=== PATIENT | male | born 1970 | race Caucasian/White ===

== ENCOUNTER 2016-11-25 05:41 | Observation (INO) | payer OTHER ==
[2016-11-25] MEDS ORDERED: ASPIRIN 81 MG CHEW PO STA (05:59)
[2016-11-25] MEDS ORDERED: NITROGLYCERIN SL TABS 0.4 MG TAB SUBLINGUAL PRN ×3 (06:01→19:13)
--- NOTE | 2016-11-25 06:04 | ED ---
Chest Pain HPI - General Chief Complaint: Chest Pain Stated Complaint: Chest Pain Time Seen by Provider: 11/25/16 05:54 Source: patient Mode of arrival: wheelchair Limitations: no limitations - History of Present Illness Initial Comments: This is a 46-year-old male with a history of CAD with stent placement after suffering cardiac arrest from [place]. He came into the emergency department for left sided chest pain that radiates to his left arm. He states it feels like a muscle ache. He states that nothing seems to make it better or worse and just seems to come on randomly. He has not tried anything for the pain. He's been having these chest pains over the last couple of days however today it got much worse and he was concerned. He denies any associated shortness of breath, lightheadedness, nausea, vomiting. He states he's never had a stress test. He follows with Dr. Cruz. - Related Data Home Medications Medication Instructions Recorded Confirmed Budesonide-Formot 160-4.5 Mcg 2 puff INHALATION RT-BID 02/20/16 11/25/16 [Symbicort 160-4.5 Mcg Inhaler] Ipratropium/Albuterol Sulfate 1 puff INHALATION RT-TID 02/20/16 11/25/16 [Combivent Respimat Inhaler] Omeprazole [PriLOSEC] 20 mg PO DAILY 02/20/16 11/25/16 Previous Rx's Medication Instructions Recorded predniSONE 10 mg PO DAILY #6 tab 02/26/16 Aspirin 325 mg PO DAILY #30 tab 02/27/16 Atorvastatin [Lipitor] 80 mg PO HS #30 tab 02/27/16 Losartan [Cozaar] 50 mg PO DAILY #30 tab 02/27/16 Metoprolol Succinate (ER) [Toprol 100 mg PO DAILY #60 tab.er.24h 02/27/16 XL] Nitroglycerin Sl Tabs [Nitrostat] 0.4 mg SUBLINGUAL Q5M PRN #100 tab 02/27/16 Prasugrel [Effient] 10 mg PO DAILY #30 tab 02/27/16 Allergies Allergy/AdvReac Type Severity Reaction Status Date / Time No Known Allergies Allergy Verified 02/20/16 07:43 Review of Systems ROS Statement: Those systems with pertinent positive or pertinent negative responses have been documented in the HPI. ROS Other: All systems not noted in ROS Statement are negative. EKG Findings - EKG Comments: EKG Findings:: EKG showing normal sinus rhythm with a rate of 56. No abnormal ST segment changes or T-wave inversions. QTC is 420. Other intervals are normal. No ectopy. Past Medical History Past Medical History: Asthma, COPD, Deep Vein Thrombosis (DVT), GERD/Reflux, Hypertension, Vascular Disorder Additional Past Medical History / Comment(s): 2010 DVT RIGHT leg, bilateral lower leg cellulitis in past, bilateral varicose veins, PVD, NIDDM type II-diet controlled, History of Any Multi-Drug Resistant Organisms: None Reported Past Surgical History: No Surgical Hx Reported Additional Past Surgical History / Comment(s): circumcism Additional Past Anesthesia/Blood Transfusion Reaction / Comment(s): Pt has never had anesthesia Past Psychological History: No Psychological Hx Reported Additional Psychological History / Comment(s): Pt resides with another adult and 2 dogs. He is independent. Smoking Status: Current every day smoker Past Alcohol Use History: None Reported Additional Past Alcohol Use History / Comment(s): Pt states he started smoking at age 18 yrs and is a 1 ppd smoker. Past Drug Use History: None Reported - Past Family History Father Family Medical History: Coronary Artery Disease (CAD), Diabetes Mellitus, Eye Disorder Additional Family Medical History / Comment(s): Bradycardia, blind. Father is in his early 70's. Mother Family Medical History: Coronary Artery Disease (CAD), Diabetes Mellitus Additional Family Medical History / Comment(s): Benign brain tumor. Mother is in her early 70's General Exam - General Exam Comments Initial Comments: Constitutional: Awake alert Appears comfortable Head: Normocephalic atraumatic Eyes: no conjunctival injection No scleral icterus EOMI Neck: No JVD Supple Heart: Regular rate rhythm normal S1-S2 no murmurs Lungs: Clear to auscultation bilaterally No wheezing No rales Abdomen: Soft nondistended nontender Extremities: Non edematous DP pulses intact Radial pulses intact Neuro: A&Ox3 No focal neurologic deficits Psych: Appropriate mood and affect Limitations: no limitations Course Vital Signs 11/25/16 11/25/16 05:42 06:21 Temperature 97.4 F L Pulse Rate 56 L 67 Blood Pressure 129/67 O2 Sat by Pulse 100 Oximetry Chest Pain MDM - MDM Patient states chest pain has resolved after nitro. EKG unremarkable. Troponin negative. Like to keep for stress testing or cardiac evaluation. Patient was updated and agrees. Disposition Clinical Impression: Chest pain Disposition: ADMITTED IP TO THIS HOSP Condition: Stable Referrals: Guy Mi DO [Primary Care Provider] - 1-2 days
[2016-11-25 06:34] LABS: INR 0.9 (<1.1); Prothrombin Time 9.6 sec (9.0-12.0)
[2016-11-25 06:37] LABS: Basophils % (A) 1 %; CH 30.1; CHCM 33.8; Eosinophils # (A) 0.1 k/uL (0-0.7); Eosinophils % (A) 2 %; HCT 39.2 % (39.0-53.0); HDW 2.84; HGB 13.3 gm/dL (13.0-17.5); Luc % (Auto) 3; Lymphocytes # (A) 1.2 k/uL (1.0-4.8); Lymphocytes % (A) 20 %; MCH 30.4 pg (25.0-35.0); MCV 89.4 fL (80.0-100.0); Mean Platelet Volume 7.3; Monocytes # (A) 0.5 k/uL (0-1.0); Monocytes % (A) 8 %; Neutrophils # (A) 4.1 k/uL (1.3-7.7); Neutrophils % (A) 66 %; RBC 4.39 m/uL (4.30-5.90); RDW 13.8 % (11.5-15.5); WBC 6.2 k/uL (3.8-10.6); WBC (Perox) 5.71
[2016-11-25 06:45] LABS: Creatine Kinase 322 U/L (55-170)
[2016-11-25 06:50] LABS: ALT 41 U/L (21-72); AST 28 U/L (17-59); Alkaline Phosphatase 58 U/L (38-126); Amylase 40 U/L (30-110); Anion Gap 9 mmol/L; Blood Urea Nitrogen 19 mg/dL (9-20); Calcium 9.5 mg/dL (8.4-10.2); Carbon Dioxide 27 mmol/L (22-30); Chloride 98 mmol/L (98-107); Glucose 279 mg/dL (74-99); Magnesium 1.8 mg/dL (1.6-2.3); Non-African American GFR(MDRD) >60 (>60 ml/min/1.73 sqM); Sodium 134 mmol/L (137-145); Total Bilirubin 0.7 mg/dL (0.2-1.3); Total Protein 6.5 g/dL (6.3-8.2)
[2016-11-25 06:58] LABS: Troponin I <0.012 ng/mL (0.000-0.034)
[2016-11-25 07:17] LABS: Partial Thromboplastin Time 21.5 sec (22.0-30.0)
[2016-11-25] MEDS ORDERED: HEPARIN SODIUM,PORCINE 5,000 UNIT/ML 1 ML VIAL IV ONE (07:41)
[2016-11-25] MEDS ORDERED: HEPARIN SODIUM,PORCINE/D5W PMX 25,000 UNIT in DEXTROSE/WATER 1 500ML.BAG IV SCH (07:45)
--- NOTE | 2016-11-25 07:52 | XR ---
EXAMINATION TYPE: XR chest 2V DATE OF EXAM: 11/25/2016 6:44 AM COMPARISON: 02/25/2016 HISTORY: Chest pain TECHNIQUE: Frontal and lateral views of the chest are obtained. FINDINGS: There is no focal air space opacity. No evidence for pnuemothorax.No pleural effusion. The cardiac silhouette size is within normal limits. The osseous structures are grossly intact. IMPRESSION: 1. No acute cardiopulmonary process.
[2016-11-25 13:04] LABS: Creatine Kinase 271 U/L (55-170)
[2016-11-25 13:17] LABS: Creatine Kinase MB 1.5 ng/mL (0.0-2.4); Troponin I <0.012 ng/mL (0.000-0.034)
[2016-11-25 15:56] LABS: Partial Thromboplastin Time 30.3 sec (22.0-30.0); Prothrombin Time 9.9 sec (9.0-12.0)
[2016-11-25] MEDS ORDERED: hydrALAZINE HCL 20 MG/ML 1 ML VIAL IVP STA ×2 (19:14→19:16)
[2016-11-25 19:19] LABS: Creatine Kinase 220 U/L (55-170)
[2016-11-25 19:28] LABS: Creatine Kinase MB 1.4 ng/mL (0.0-2.4); Troponin I <0.012 ng/mL (0.000-0.034)
[2016-11-25 20:51] LABS: Glucose,Whole Blood 230 mg/dL (75-99)
--- NOTE | 2016-11-25 20:58 | CONS ---
DATE OF CONSULTATION: Mr. Epstein is a 46-year-old male patient who started experiencing left-sided chest discomfort that radiated to the left arm. He came to the hospital. He has a known history of coronary artery disease; VF arrest at that time, and ischemic cardiomyopathy that has now resolved, according to the patient. He follows with Dr. Piyush Cruz. His medication list was reviewed and is documented in the chart. It includes: 1. Aspirin. 2. Atorvastatin. 3. Losartan. 4. Metoprolol. 5. Effient. ALLERGIES: NO KNOWN DRUG ALLERGIES. REVIEW OF SYSTEMS: No fever, chills or rigors. No cough or expectoration, nausea, vomiting or diarrhea, hematuria or dysuria, strokes or seizures. No skin lesions. No musculoskeletal complaints. PAST HISTORY: 1. Asthma. 2. DVT. 3. Hypertension. 4. Type 2 diabetes. On examination, his blood pressure is 157/67 mmHg, but repeat blood pressure was 191/80 mmHg, heart rate in the 50s. Afebrile, 97.7 degrees Fahrenheit. Head and neck examination is normal. Heart sounds S1, S2 are normal. LUNGS: Clear on auscultation. No rhonchi or crackles. EXTREMITIES: Warm. No edema. He is obese. IMPRESSION: 1. Atypical chest discomfort with normal cardiac enzymes and no definite ECG abnormalities. Three sets of cardiac enzymes are normal. Hemoglobin is normal. Electrolytes are normal. Glucose is elevated at 279. 2. Hypertension. His blood pressure is elevated. 3. History of coronary artery disease, status post coronary stenting. 4. History of ventilator fibrillation arrest during an acute myocardial infarction. 5. History of ischemic cardiomyopathy which apparently has resolved. SUGGEST: Proceed with Lexiscan/Cardiolite stress test tomorrow; if it is normal, he may go home and follow with Dr. Cruz.
[2016-11-25] MEDS ORDERED: ATORVASTATIN 80 MG TAB PO SCH (21:00)
[2016-11-25] MEDS ORDERED: PANTOPRAZOLE 40 MG TABLET PO SCH (21:00)
[2016-11-25] MEDS: metFORMIN 500 MG TAB PO SCH (21:12)
[2016-11-25] MEDS: INSULIN LISPRO (humaLOG) 300 UNIT/3 ML VIAL SQ SCH (21:13)
[2016-11-26] MEDS ORDERED: AMINOPHYLLINE 500 MG/20 ML VIAL IV PRN (05:00)
[2016-11-26] MEDS ORDERED: REGADENOSON 0.4 MG/5 ML SYRINGE IV ONE (05:00)
[2016-11-26 08:05] LABS: Cholesterol 111 mg/dL (<200); HDL Cholesterol 38 mg/dL (40-60); Triglycerides 108 mg/dL (<150)
[2016-11-26] MEDS ORDERED: CLOPIDOGREL 75 MG TAB PO SCH (09:00)
[2016-11-26] MEDS ORDERED: ASPIRIN 81 MG CHEW PO SCH (09:00)
[2016-11-26] MEDS ORDERED: LOSARTAN 50 MG TAB PO SCH (09:00)
[2016-11-26] MEDS ORDERED: ASPIRIN 325 MG TAB PO SCH (09:00)
[2016-11-26] MEDS ORDERED: METOPROLOL SUCCINATE (ER) 100 MG TAB.ER.24H PO SCH (09:00)
[2016-11-26] MEDS ORDERED: HYDROCHLOROTHIAZIDE 50 MG TAB PO SCH (09:00)
[2016-11-26 09:43] VITALS: RESP 18
[2016-11-26 10:22] LABS: Glucose,Whole Blood 189 mg/dL (75-99)
--- NOTE | 2016-11-26 11:01 | NM ---
EXAMINATION TYPE: NM stress lexiscan cardiolite DATE OF EXAM: 11/26/2016 10:25 AM COMPARISON: NONE HISTORY: Chest pain, known coronary artery disease TECHNIQUE: After the intravenous administration of 10.46 mCi Tc 99m Sestamibi - Cardiolite resting S PECT images acquired 45 minutes post injection. The patient received 0.4mg Lexiscan, 27.5 mCi Tc 99m Sestamibi - Stress images obtained [address] injection FINDINGS: Review of stress and rest SPECT images demonstrates no distinct perfusion abnormality. Gated analysi s shows normal wall motion with an estimated left ventricular ejection fraction of 42 %, which is low . Normal is greater than 50%. There is hypokinesia of the inferior lateral wall. Some global hypokine candis may be present. There is diminished radiotracer accumulation along the inferior lateral wall extending from the cardi ac base to the cardiac apex. This appears fixed compatible with prior infarct. No satya-infarct ischem ic changes identified. IMPRESSION: 1. Prior infarct inferior lateral wall. 2. Low ejection fraction of 42%. There is hypokinesia of the inferior lateral wall and global hypokin esia present.
--- NOTE | 2016-11-26 11:02 | HP ---
DATE OF ADMISSION: CHIEF COMPLAINT: Chest pain. HISTORY OF PRESENT ILLNESS: Mr. Epstein is a 46-year-old male with known history of coronary artery disease with stent placement, cardiopulmonary arrest, and history of NE and ischemic cardiomyopathy. He came today with complaints of left-sided chest pain and radiation to the left arm. Chest pain mainly in the left sternal wall , sharp pain and feels like stabbing. Denied any nausea, vomiting, abdominal pain. Denied any nausea, vomiting, headache, diaphoresis or dizziness or lightheadedness along with the pain. Patient says the pain is different from what he had when he had a NE about 9 months ago. He follows with Dr. Cruz. Otherwise, the patient denied any complaints of short of breath. Patient came to the hospital for further evaluation. Chest pain has been getting worse for the past 2 days which made him come to the hospital. No fever. No chills. No recent illnesses. No recent travel or sick contacts at home. PAST MEDICAL HISTORY: Asthma, COPD, history of DVT, GERD, hypertension, bilateral varicose veins, peripheral vascular disease, type 2 diabetes mellitus, coronary artery disease and stent placement and cardiopulmonary arrest with ventricular fibrillation at that time, history of NE, ischemic cardiomyopathy. PAST SURGICAL HISTORY: Circumcision. PSYCHOSOCIAL HISTORY: None. SOCIAL HISTORY: Patient is currently an everyday smoker. Started smoking at age 18 years and is 1 pack per day. Occasional alcohol use. Denied any drugs or IVDU. FAMILY HISTORY: Father had coronary artery disease and diabetes mellitus and eye disorder. Mother had coronary artery disease, diabetes mellitus and benign brain tumor. HOME MEDICATIONS: 1. Symbicort. 2. Ipratropium albuterol. 3. Omeprazole. 4. Prednisone. 5. Aspirin. 6. Atorvastatin. 7. Cozaar. 8. Metoprolol. 9. Nitroglycerin sublingual tablet. 10. Prasugrel. ALLERGIES: No known drug allergies. PHYSICAL EXAMINATION: A 46-year-old male, lying in bed comfortably, awake, alert, oriented x3, appears to be in no apparent distress. VITALS: Blood pressure is 191/80, pulse is 56, respirations 16, temperature afebrile, pulse ox 95% on room air. HEENT: Atraumatic, normocephalic. Neck is supple. No JVD. CVS EXAM: S1, S2 heard. No murmurs, no gallop, no rub. LUNGS: Bilateral air entry is present. No wheezing. No crackles. Nonlabored breathing. ABDOMEN: Soft, nontender. Bowel sounds are present. Obese. No palpable organomegaly. TEENAGE BABYSITTER: Awake, alert, oriented x3. No focal ( ). EXTREMITIES: No edema. Pulses palpable bilaterally. No clubbing or cyanosis. PSYCHIATRIC: Cooperative. LABORATORY DATA: WBC is 6.2., hemoglobin 13.3, platelets 179. INR 0.9. Sodium 134, potassium 4.0, chloride 98, bicarb 27. BUN 19, creatinine 1.0. Blood sugar is 279. Troponin x3 negative. CPK elevated at 322. Lipase 42. Chest x-ray no acute cardiopulmonary process. The EKG sinus bradycardia. IMPRESSION: 1. Atypical chest pain seems more like a musculoskeletal due to recent history of coronary artery disease and cardiopulmonary arrest. Patient will be continued on telemonitoring and serial EKGs and troponins have been negative so far. Cardiology has been consulted and recommended Lexiscan stress test. Will continue the telemonitoring. 2. Uncontrolled hypertension. Will continue the home medications . 3. Sinus bradycardia. Will hold Catapres at this time and monitor blood pressure closely. 4. History of coronary artery disease, status post stent placement 9 months ago. 5. History of cardiopulmonary arrest due to ventricular fibrillation during acute myocardial infarction. 6. Ischemic cardiomyopathy history, appears to be resolved now. 7. Morbid obesity. 8. Diabetes mellitus type 2, non-insulin dependent. 9. Hyperlipidemia. DISCUSSION AND PLAN: Patient will be continued on home medications. Blood pressure medications including metoprolol and losartan and hydrochlorothiazide. Clonidine has been held due to sinus bradycardia. We will continue to monitor the heart rate and follow up closely. Cardiology is on board and recommending a Lexiscan stress test. Will continue telemonitoring. Further recommendations based on the clinical course. SULEMA
[2016-11-26] MEDS: INSULIN LISPRO (humaLOG) 300 UNIT/3 ML VIAL SQ SCH ×2 (11:06→13:09)
[2016-11-26] MEDS: metFORMIN 500 MG TAB PO SCH (11:09)
--- NOTE | 2016-11-26 11:52 | EST ---
DATE OF SERVICE: 11/26/2016 AGE: 46Y SEX: M HT: 5'10" WT: 340 lbs. Lexiscan Cardiolite Stress Test *Heart Rate Blood Pressure *Rest: 64 Rest: 154/91 * *Max. Achieved: 94 Maximum BP: 190/68 85% PMHR: 148 100% PMHR: 174 *METS: - INDICATIONS: Chest pain. MEDICATIONS: - Mr. Epstein is a 46-year-old gentleman with history of hypertension, diabetes and hypercholesterolemia being evaluated for cardiac status. STRESS DATA: Baseline EKG showed a sinus rhythm with normal RI interval and QRS duration. A standard dose of Lexiscan was infused. EKGs taken during and after the infusion did not reveal any significant changes from the baseline. FINAL IMPRESSION: 1. Negative Lexiscan stress test. 2. Report on the nuclear images to be given by the radiologist.
[2016-11-26 12:23] LABS: Glucose,Whole Blood 289 mg/dL (75-99)
[2016-11-26 13:54] VITALS: BP 169/94; PULSE 72; TEMP 98
--- NOTE | 2016-11-27 05:24 | DS ---
DATE OF ADMISSION: 11/25/2016 DATE OF DISCHARGE: 11/26/2016 The patient is a 46-year-old who came in with chest pain, appears to be pulled muscle for him, most probably musculoskeletal in nature, ruled out acute coronary syndrome. Patient underwent stress test, which was negative. Patient's chest pain is nonpleuritic in nature. Patient is chest pain free at this point of time. Patient has ischemic cardiomyopathy, which appears to be minimally better compared to the last admission. Patient was seen and examined on the day of discharge. Vitals are stable. PHYSICAL EXAMINATION: GENERAL: The patient is alert and oriented x3, not in any acute distress. Well developed, well nourished. HEENT: Pupils are round and equally reacting to light. EOMI. No scleral icterus. No conjunctival pallor. Normocephalic, atraumatic. No pharyngeal erythema. No thyromegaly. CARDIOVASCULAR: S1 and S2 present. No murmurs, rubs, or gallops. PULMONARY: Chest is clear to auscultation, no wheezing or crackles. ABDOMEN: Soft, nontender, nondistended, normoactive bowel sounds. No palpable organomegaly. MUSCULOSKELETAL: No joint swelling or deformity. EXTREMITIES: No cyanosis, clubbing, or pedal edema. NEUROLOGICAL: Gross neurological examination did not reveal any focal deficits. SKIN: No rashes. FINAL DIAGNOSES: 1. Chest pain, appears to be musculoskeletal. Ruled out acute coronary artery syndrome, underwent stress test. 2. Essential hypertension. 3. Coronary artery disease, status post stent placement recently with ischemic cardiomyopathy, which appears to be improving. Patient had a recent cardiopulmonary arrest. 4. Morbid obesity. 5. Type 2 diabetes mellitus. 6. Hyperlipidemia. Patient will be discharged today to follow with Dr. Piyush Cruz on the 10 of December at 1:[address] Guy Mi in 3 to 7 days. Activity as tolerated. Cardiac and diabetic 1800 calorie diet, low-calorie diet.
== END 2016-11-26 16:30 | disposition home or self-care (01) ==
LOC: EC 05:41 → 3OBS 07:41
PROVIDERS: ADMIT Hospitalist; ATTEND Hospitalist
DX: R07.89 Other chest pain (principal); I10 Essential (primary) hypertension; I25.10 Atherosclerotic heart disease of native coronary artery without angina pectoris; Z95.5 Presence of coronary angioplasty implant and graft; I25.5 Ischemic cardiomyopathy; R00.1 Bradycardia, unspecified; E66.01 Morbid (severe) obesity due to excess calories; Z86.74 Personal history of sudden cardiac arrest; Z68.42 Body mass index [BMI] 45.0-49.9, adult; E11.9 Type 2 diabetes mellitus without complications; E78.5 Hyperlipidemia, unspecified; F17.200 Nicotine dependence, unspecified, uncomplicated; I73.9 Peripheral vascular disease, unspecified; I25.2 Old myocardial infarction; J45.909 Unspecified asthma, uncomplicated; J44.9 Chronic obstructive pulmonary disease, unspecified; K21.9 Gastro-esophageal reflux disease without esophagitis; Z86.718 Personal history of other venous thrombosis and embolism; Z79.51 Long term (current) use of inhaled steroids; Z79.899 Other long term (current) drug therapy; Z82.1 Family history of blindness and visual loss
CPT/HCPCS: 96366 ×3; 96375; 96376; 96365; 99285; 36415; 93005; 93017; 80061; 80053; 82150; 82550; 82553; 83690; 83735; 84484; 85025; 85610; 85730; 71020; 78452; G0378 ×2; A9500; J0360; J1644 ×2; J2785

== ENCOUNTER 2017-09-05 21:02 | Emergency (ER) | payer OTHER ==
[2017-09-05 21:11] VITALS: RESP 18
--- NOTE | 2017-09-05 21:29 | ED ---
Lower Extremity Injury HPI - General Chief Complaint: Extremity Injury, Lower Stated Complaint: left leg burning & swelling Time Seen by Provider: 09/05/17 21:13 Source: patient, RN notes reviewed Mode of arrival: wheelchair Limitations: physical limitation - History of Present Illness Initial Comments: This is a 47-year-old male who presents to the emergency department with chief complaint of left lower extremity pain. Patient states that he developed an ache in his left calf on . Since that time, pain has progressively worsened. She states that he's noticed that his calf is red and swollen. He describes the pain as an ache, made worse with standing. Patient does state that he has a history of a DVT in his right lower extremity. He denies any recent injuries, falls or trauma to the left lower extremity. Denies chest pain or shortness of breath. Denies fever, chills, abdominal pain, nausea or vomiting, constipation or diarrhea, dysuria or hematuria, numbness or tingling, headache or vision changes. - Related Data Home Medications Medication Instructions Recorded Confirmed Omeprazole [PriLOSEC] 20 mg PO HS 02/20/16 11/25/16 Aspirin 81 mg PO DAILY 11/25/16 11/25/16 Clopidogrel [Plavix] 75 mg PO DAILY 11/25/16 11/25/16 Hydrochlorothiazide [Hydrodiuril] 50 mg PO DAILY 11/25/16 11/25/16 Losartan Potassium [Cozaar] 100 mg PO DAILY 11/25/16 11/25/16 cloNIDine HCL [Catapres] 0.1 mg PO BID 11/25/16 11/25/16 metFORMIN HCL [Glucophage] 1,000 mg PO BID 11/25/16 11/25/16 Previous Rx's Medication Instructions Recorded Atorvastatin [Lipitor] 80 mg PO HS #30 tab 02/27/16 Metoprolol Succinate (ER) [Toprol 100 mg PO DAILY #60 tab.er.24h 02/27/16 XL] Nitroglycerin Sl Tabs [Nitrostat] 0.4 mg SUBLINGUAL Q5M PRN #100 tab 02/27/16 Cephalexin [Keflex] 500 mg PO Q12HR #20 cap 09/06/17 Allergies Allergy/AdvReac Type Severity Reaction Status Date / Time No Known Allergies Allergy Verified 09/05/17 21:11 Review of Systems ROS Statement: Those systems with pertinent positive or pertinent negative responses have been documented in the HPI. ROS Other: All systems not noted in ROS Statement are negative. Past Medical History Past Medical History: Asthma, Coronary Artery Disease (CAD), COPD, Deep Vein Thrombosis (DVT), GERD/Reflux, Hyperlipidemia, Hypertension, Myocardial Infarction ([place]), Sleep Apnea/CPAP/BIPAP, Vascular Disorder Additional Past Medical History / Comment(s): 02/20/16 [place] with cardiac arrest- Vfib-pt wore life vest for 7 weeks, 2010 DVT RIGHT leg, bilateral lower leg cellulitis in past, bilateral varicose veins, PVD, NIDDM type II, BERTRAND with CPAP. Last Myocardial Infarction Date:: 02/20/16 History of Any Multi-Drug Resistant Organisms: None Reported Past Surgical History: Heart Catheterization With Stent Additional Past Surgical History / Comment(s): circumcism, Additional Past Anesthesia/Blood Transfusion Reaction / Comment(s): Pt has never had anesthesia Date of Last Stent Placement:: 02/20/16 Past Psychological History: No Psychological Hx Reported Smoking Status: Former smoker Past Alcohol Use History: None Reported Past Drug Use History: None Reported - Past Family History Father Family Medical History: Coronary Artery Disease (CAD), Diabetes Mellitus, Eye Disorder Additional Family Medical History / Comment(s): Bradycardia, blind. Father is in his early 70's. Mother Family Medical History: Coronary Artery Disease (CAD), Diabetes Mellitus Additional Family Medical History / Comment(s): Benign brain tumor. Mother is in her early 70's General Exam - General Exam Comments Initial Comments: General: Awake and alert, well-developed; in no apparent distress. HEENT: Head atraumatic, normocephalic. Pupils are equal, round and reactive to light. Extraocular movements intact. Oropharynx moist without erythema or exudate. Neck: Supple. Normal ROM. Cardiovascular: Regular rate and rhythm. No murmurs, rubs or gallops. Chest symmetrical. Respiratory: Lungs clear to auscultation bilaterally. No wheezes, rales or rhonchi. Normal respiratory effort with no use of accessory muscles. Musculoskeletal: Generalized tenderness on palpation of left lower extremity. Chronic venous stasis hyperpigmentation noted. There is erythema and swelling of the calf. No warmth on palpation. Pedal pulses are 2+ equal and palpable bilaterally. Skin: [place], warm and dry without rashes or lesions. Neurological: Alert and oriented x3. CN II-XII grossly intact. Speech is fluent and answers are appropriate. No focal neuro deficits. Psychiatric: Normal mood and affect. No overt signs of depression or anxiety noted. Limitations: physical limitation Course Vital Signs 09/05/17 09/05/17 21:07 22:37 Temperature 99.8 F H Pulse Rate 90 76 Respiratory 18 18 Rate Blood Pressure 131/70 121/56 O2 Sat by Pulse 96 96 Oximetry Medical Decision Making - Medical Decision Making This is a 47-year-old male who presents to the emergency department with chief complaint of left lower extremity pain and swelling. Ultrasound venous Doppler was negative for an acute DVT. Left lower extremity is erythematous, tender and mildly swollen. Patient will be treated for cellulitis with Keflex. Patient denies any history of MRSA. Vital signs are stable and he is in no acute distress. Return parameters were discussed. Discussed returning if he develops any high spiking fevers, increasing in the area of redness and tenderness or he sees no improvement of symptoms in the next couple of days. CBC revealed a white count of 9.4 with a mild left shift of 7.8. Patient does have an elevated glucose at 433. This was discussed with patient, who admits to having uncontrolled diabetes. He states he was recently started on a new medication but has yet to receive it from the [facility]. Anion gap is normal. Patient will be discharged home at this time. He is in agreement and voices understanding. All questions were answered. - Lab Data Result diagrams: 09/05/17 21:36 09/05/17 21:36 Lab Results 09/05/17 09/05/17 Range/Units 21:36 21:36 WBC 9.4 (3.8-10.6) k/uL RBC 4.10 L (4.30-5.90) m/uL Hgb 12.0 L (13.0-17.5) gm/dL Hct 39.0 (39.0-53.0) % MCV 95.1 (80.0-100.0) fL MCH 29.2 (25.0-35.0) pg MCHC 30.7 L (31.0-37.0) g/dL RDW 14.0 (11.5-15.5) % Plt Count 187 (150-450) k/uL Neutrophils % 82 % Lymphocytes % 8 % Monocytes % 7 % Eosinophils % 1 % Basophils % 0 % Neutrophils # 7.8 H (1.3-7.7) k/uL Lymphocytes # 0.8 L (1.0-4.8) k/uL Monocytes # 0.6 (0-1.0) k/uL Eosinophils # 0.0 (0-0.7) k/uL Basophils # 0.0 (0-0.2) k/uL Hypochromasia Slight Sodium 131 L (137-145) mmol/L Potassium 3.6 (3.5-5.1) mmol/L Chloride 92 L (98-107) mmol/L Carbon Dioxide 27 (22-30) mmol/L Anion Gap 12 mmol/L BUN 19 (9-20) mg/dL Creatinine 1.20 (0.66-1.25) mg/dL Est GFR (MDRD) Af Amer >60 (>60 ml/min/1.73 sqM) Est GFR (MDRD) Non-Af >60 (>60 ml/min/1.73 sqM) Glucose 433 H (74-99) mg/dL Calcium 8.9 (8.4-10.2) mg/dL Total Bilirubin 1.7 H (0.2-1.3) mg/dL AST 32 (17-59) U/L ALT 44 (21-72) U/L Alkaline Phosphatase 64 (38-126) U/L Total Protein 5.9 L (6.3-8.2) g/dL Albumin 3.2 L (3.5-5.0) g/dL - Radiology Data Radiology results: report reviewed Ultrasound venous Doppler left lower extremity impression: Normal exam. No evidence of deep venous thrombosis in the left leg. Disposition Clinical Impression: Cellulitis of lower extremity Disposition: HOME SELF-CARE Condition: Good Instructions: Cellulitis (ED) Additional Instructions: Please take medications as prescribed. Please follow up with primary care provider within 1-2 days. Return to emergency department if symptoms should worsen or any concerns arise. Prescriptions: Cephalexin [Keflex] 500 mg PO Q12HR #20 cap Referrals: [facility],Clinic [Primary Care Provider] - 1-2 days Time of Disposition: 00:45
[2017-09-06 00:30] LABS: ALT 44 U/L (21-72); AST 32 U/L (17-59); Albumin 3.2 g/dL (3.5-5.0); Alkaline Phosphatase 64 U/L (38-126); Anion Gap 12 mmol/L; Basophils % (A) 0 %; Blood Urea Nitrogen 19 mg/dL (9-20); Calcium 8.9 mg/dL (8.4-10.2); Carbon Dioxide 27 mmol/L (22-30); Chloride 92 mmol/L (98-107); Eosinophils % (A) 1 %; Glucose 433 mg/dL (74-99); Hypochromasia Slight; Lymphocytes # (A) 0.8 k/uL (1.0-4.8); Lymphocytes % (A) 8 %; MCH 29.2 pg (25.0-35.0); MCHC 30.7 g/dL (31.0-37.0); MCV 95.1 fL (80.0-100.0); Mean Platelet Volume 8.4; Monocytes # (A) 0.6 k/uL (0-1.0); Monocytes % (A) 7 %; Neutrophils # (A) 7.8 k/uL (1.3-7.7); Neutrophils % (A) 82 %; Platelet Count 187 k/uL (150-450); Potassium 3.6 mmol/L (3.5-5.1); Sodium 131 mmol/L (137-145); Total Bilirubin 1.7 mg/dL (0.2-1.3); Total Protein 5.9 g/dL (6.3-8.2); WBC 9.4 k/uL (3.8-10.6)
--- NOTE | 2017-09-06 00:32 | US ---
EXAMINATION TYPE: US venous doppler duplex LE LT DATE OF EXAM: 09/06/2017 12:24 AM COMPARISON: NONE CLINICAL HISTORY: Pain. Left leg pain and swelling x 3 days, cellulitis, patient on blood thinners, h istory of right leg DVT SIDE PERFORMED: Left TECHNIQUE: The lower extremity deep venous system is examined utilizing real time linear array sonog raquel with graded compression, doppler sonography and color-flow sonography. VESSELS IMAGED: External Iliac Vein (EIV) Common Femoral Vein Deep Femoral Vein Greater Saphenous Vein * Femoral Vein Popliteal Vein Small Saphenous Vein * Proximal Calf Veins (* superficial vessels) Left Leg: Appears negative for DVT IMPRESSION: Normal exam. No evidence of deep venous thrombosis in the left leg.
[2017-09-06 00:46] VITALS: BP 148/76; PULSE 84; TEMP 99.4
== END 2017-09-06 00:52 | disposition home or self-care (01) ==
LOC: EC 21:02
DX: L03.116 Cellulitis of left lower limb (principal); E11.65 Type 2 diabetes mellitus with hyperglycemia; I87.8 Other specified disorders of veins; L81.9 Disorder of pigmentation, unspecified; I10 Essential (primary) hypertension; K21.9 Gastro-esophageal reflux disease without esophagitis; I25.10 Atherosclerotic heart disease of native coronary artery without angina pectoris; G47.33 Obstructive sleep apnea (adult) (pediatric); I25.2 Old myocardial infarction; Z87.891 Personal history of nicotine dependence; Z79.02 Long term (current) use of antithrombotics/antiplatelets; Z79.82 Long term (current) use of aspirin; Z79.84 Long term (current) use of oral hypoglycemic drugs; Z79.899 Other long term (current) drug therapy; Z86.718 Personal history of other venous thrombosis and embolism; Z99.89 Dependence on other enabling machines and devices; Z83.3 Family history of diabetes mellitus
CPT/HCPCS: 36415; 80053; 85025; 99284

== ENCOUNTER 2019-01-22 19:29 | Emergency (ER) | payer OTHER ==
[2019-01-22 19:59] VITALS: RESP 18
[2019-01-22] MEDS ORDERED: MORPHINE SULFATE 4 MG/ML SYRINGE IM STA (20:22)
--- NOTE | 2019-01-22 20:25 | ED ---
General Adult HPI - General Chief complaint: Extremity Problem,Nontraumatic Stated complaint: Cellulitis rt leg Time Seen by Provider: 01/22/19 20:04 Source: patient Mode of arrival: wheelchair Limitations: no limitations - History of Present Illness Initial comments: Dictation was produced using [employer] dictation software. please excuse any grammatical, word or spelling errors. Chief Complaint: 49-year-old male presents with request for pain medications. History of Present Illness: 49-year-old male use recently discharged from [facility] for cellulitis. Patient was admitted for couple days. He is discharged with prescription for antibiotics. He states that his symptoms are painful. He states that his symptoms are worse when he was discharged. He was told by discharge physician's to take Tylenol at home. Patient followed instructions and tried taking [id number] analgesia without any significant improvement of his symptoms. He has a follow-up appointment with his PCP later next week. he is here today requesting stronger pain medications. The ROS documented in this emergency department record has been reviewed and confirmed by me. Those systems with pertinent positive or negative responses have been documented in the HPI. All other systems are other negative and/or noncontributory. PHYSICAL EXAM: General Impression: Alert and oriented x3, not in acute distress HEENT: Normocephalic atraumatic, extra-ocular movements intact, pupils equal and reactive to light bilaterally, mucous membranes moist. Cardiovascular: Heart regular rate and rhythm, S1&S2 audible, no murmurs, rubs or gallops Chest: Lungs clear to auscultation bilaterally, no rhonchi, no wheeze, no rales Abdomen: Bowel sounds present, abdomen soft, non-tender, non-distended, no organomegaly Musculoskeletal: Pulses present and equal in all extremities, no peripheral edema Motor: no focal deficits noted Neurological: CN II-XII grossly intact, no focal motor or sensory deficits noted Skin: Cellulitic changes to the right lower extremity Psych: Normal affect and mood ED course: 49-year-old male presents with request for pain medications. Patient was discharged from [facility] for diagnosis of cellulitis. Physical examination is benign. There does appear to be cellulitic changes however patient does not report that his symptoms are worse. Upon arrival are within acceptable limits. His medications were reviewed. Patient denies any constitutional symptoms. Patient given 1 IM shot of morphine. He is given a prescription for [place]. Patient advised to follow-up with his primary care physician. - Related Data Home Medications Medication Instructions Recorded Confirmed Aspirin 81 mg PO DAILY 11/25/16 01/12/19 Clopidogrel [Plavix] 75 mg PO DAILY 11/25/16 01/12/19 Losartan Potassium [Cozaar] 100 mg PO DAILY 11/25/16 01/12/19 Budesonide/Formoterol Fumarate 2 puff INHALATION RT-BID 01/12/19 01/12/19 [Symbicort 160-4.5 Mcg Inhaler] Carboxymethylcellulose Sodium 1 drop BOTH EYES QID 01/12/19 01/12/19 [Refresh Tears] Hydrochlorothiazide [Hydrodiuril] 25 mg PO DAILY 01/12/19 01/12/19 Insulin Glargine [Lantus] 20 unit SQ DAILY 01/12/19 01/12/19 Ipratropium/Albuterol Sulfate 1 puff INHALATION RT-QID PRN 01/12/19 01/12/19 [Combivent Respimat Inhaler] cloNIDine HCL [Catapres] 0.1 mg PO PC-SUPPER 01/12/19 01/12/19 cloNIDine HCL [Catapres] 0.2 mg PO QAM 01/12/19 01/12/19 glipiZIDE [Glucotrol] 20 mg PO BID 01/12/19 01/12/19 metFORMIN HCL 1,000 mg PO BID 01/12/19 01/12/19 Previous Rx's Medication Instructions Recorded Atorvastatin [Lipitor] 80 mg PO HS #30 tab 02/27/16 Metoprolol Succinate (ER) [Toprol 100 mg PO DAILY #60 tab.er.24h 02/27/16 XL] Nitroglycerin Sl Tabs [Nitrostat] 0.4 mg SUBLINGUAL Q5M PRN #100 tab 02/27/16 HYDROcodone/APAP 5-325MG [[place] 1 tab PO Q6HR PRN 3 Days #12 tab 01/22/19 5-325] Allergies Allergy/AdvReac Type Severity Reaction Status Date / Time No Known Allergies Allergy Verified 01/12/19 16:06 Review of Systems ROS Statement: Those systems with pertinent positive or pertinent negative responses have been documented in the HPI. ROS Other: All systems not noted in ROS Statement are negative. Past Medical History Past Medical History: Asthma, Coronary Artery Disease (CAD), COPD, Deep Vein Thrombosis (DVT), GERD/Reflux, Hyperlipidemia, Hypertension, Myocardial Infarction (ME), Sleep Apnea/CPAP/BIPAP, Vascular Disorder Additional Past Medical History / Comment(s): 02/20/16 [place] with cardiac arryjx-Kbwu-zn wore life vest for 7 weeks, 2010 DVT RIGHT leg, bilateral lower leg cellulitis in past, bilateral varicose veins, PVD, NIDDM type II, BERTRAND with CPAP. Last Myocardial Infarction Date:: 02/20/16 History of Any Multi-Drug Resistant Organisms: None Reported Past Surgical History: Heart Catheterization With Stent Additional Past Surgical History / Comment(s): circumcism, Additional Past Anesthesia/Blood Transfusion Reaction / Comment(s): Pt has never had anesthesia Date of Last Stent Placement:: 02/20/16 Past Psychological History: No Psychological Hx Reported Smoking Status: Former smoker Past Alcohol Use History: None Reported Past Drug Use History: None Reported - Past Family History Father Family Medical History: Coronary Artery Disease (CAD), Diabetes Mellitus, Eye Disorder Additional Family Medical History / Comment(s): Bradycardia, blind. Father is in his early 70's. Mother Family Medical History: Coronary Artery Disease (CAD), Diabetes Mellitus Additional Family Medical History / Comment(s): Benign brain tumor. Mother is in her early 70's General Exam Limitations: no limitations Course Vital Signs 01/22/19 19:55 Temperature 98.0 F Pulse Rate 82 Respiratory 18 Rate Blood Pressure 152/93 O2 Sat by Pulse 98 Oximetry Disposition Clinical Impression: Inadequate pain control Disposition: HOME SELF-CARE Condition: Good Instructions (If sedation given, give patient instructions): Opioid Safety (ED) Prescriptions: HYDROcodone/APAP 5-325MG [[place] 5-325] 1 tab PO Q6HR PRN 3 Days #12 tab PRN Reason: Severe Pain Is patient prescribed a controlled substance at d/c from ED?: Yes If prescribed controlled substance>3 days was MAPS reviewed?: Prescribed <3 Days Referrals: Nonstaff,Physician [Primary Care Provider] - 1-2 days Time of Disposition: 20:25
[2019-01-22 20:36] VITALS: BP 131/85; PULSE 70; TEMP 98.9
== END 2019-01-22 20:48 | disposition home or self-care (01) ==
LOC: EC 19:29
DX: L03.115 Cellulitis of right lower limb (principal); J44.9 Chronic obstructive pulmonary disease, unspecified; K21.9 Gastro-esophageal reflux disease without esophagitis; E78.5 Hyperlipidemia, unspecified; I10 Essential (primary) hypertension; I25.2 Old myocardial infarction; I25.10 Atherosclerotic heart disease of native coronary artery without angina pectoris; G47.33 Obstructive sleep apnea (adult) (pediatric); Z99.89 Dependence on other enabling machines and devices; Z86.718 Personal history of other venous thrombosis and embolism; Z87.891 Personal history of nicotine dependence; Z79.01 Long term (current) use of anticoagulants; Z79.4 Long term (current) use of insulin; Z79.51 Long term (current) use of inhaled steroids; Z79.82 Long term (current) use of aspirin; Z79.899 Other long term (current) drug therapy; Z95.5 Presence of coronary angioplasty implant and graft
CPT/HCPCS: 99283; 96372; J2270

== ENCOUNTER 2019-03-14 16:52 | Inpatient (IN) | payer OTHER ==
[2019-03-14] MEDS ORDERED: diphenhydrAMINE 50 MG/ML 1 ML VIAL IVP STA (18:38)
[2019-03-14] MEDS ORDERED: SODIUM CHLORIDE 0.9% 1,000 ML IV STA ×2 (18:38)
[2019-03-14] MEDS ORDERED: FAMOTIDINE 20 MG/2 ML VIAL IV STA (18:38)
[2019-03-14] MEDS ORDERED: VANCOMYCIN IV PER PHARMACY 1 EACH MISC MISCELLANE PRN (18:38)
[2019-03-14] MEDS ORDERED: DEXAMETHASONE SOD PHOSPHATE 10 MG/ML 1 ML VIAL IV STA (18:38)
--- NOTE | 2019-03-14 18:38 | ED ---
Skin/Abscess/FB HPI - General Chief complaint: Skin/Abscess/Foreign Body Stated complaint: MRSA rt leg Time Seen by Provider: 03/14/19 17:37 Source: patient, RN notes reviewed, old records reviewed Mode of arrival: wheelchair Limitations: no limitations - History of Present Illness Initial comments: This is a 49-year-old male the ER for evaluation patient comes in with significant right lower extremity infection right lower extremity cellulitis. History of same. Patient is diagnosed with MRSA infection of that extremity. Currently on antibiotics. States symptoms are worsening pain is increasing shows increasing redness is increasing weeping drainage is increased. Denies overall body fever. Also had some swelling of right eye right lip today. Patient is recent surgery Antibiotic, clindamycin no shortness of breath, no neck swelling, MD complaint: rash, other (Significant peripheral venous disease with drainage and weeping) -: week(s) Location: R[facility] Severity: severe Severity scale (1-10): 9 Quality: burning, aching Consistency: constant Improves with: none Context: recent illness Treatments Prior to Arrival: none - Related Data Home Medications Medication Instructions Recorded Confirmed Aspirin 81 mg PO DAILY 11/25/16 03/14/19 Clopidogrel [Plavix] 75 mg PO DAILY 11/25/16 03/14/19 Losartan Potassium [Cozaar] 100 mg PO DAILY 11/25/16 03/14/19 Budesonide/Formoterol Fumarate 2 puff INHALATION RT-BID 01/12/19 03/14/19 [Symbicort 160-4.5 Mcg Inhaler] Carboxymethylcellulose Sodium 1 drop BOTH EYES QID PRN 01/12/19 03/14/19 [Refresh Tears] Hydrochlorothiazide [Hydrodiuril] 25 mg PO DAILY 01/12/19 03/14/19 Insulin Glargine [Lantus] 46 unit SQ HS 01/12/19 03/14/19 Ipratropium/Albuterol Sulfate 1 puff INHALATION RT-TID 01/12/19 03/14/19 [Combivent Respimat Inhaler] metFORMIN HCL 1,000 mg PO BID 01/12/19 03/14/19 Omeprazole 20 mg PO DAILY 03/14/19 03/14/19 Tetracycline HCl 500 mg PO TID 03/14/19 03/14/19 Previous Rx's Medication Instructions Recorded Atorvastatin [Lipitor] 80 mg PO HS #30 tab 02/27/16 Metoprolol Succinate (ER) [Toprol 100 mg PO DAILY #60 tab.er.24h 02/27/16 XL] Nitroglycerin Sl Tabs [Nitrostat] 0.4 mg SUBLINGUAL Q5M PRN #100 tab 02/27/16 Allergies Allergy/AdvReac Type Severity Reaction Status Date / Time No Known Allergies Allergy Verified 03/14/19 18:19 Review of Systems ROS Statement: Those systems with pertinent positive or pertinent negative responses have been documented in the HPI. ROS Other: All systems not noted in ROS Statement are negative. Past Medical History Past Medical History: Asthma, Coronary Artery Disease (CAD), COPD, Deep Vein Thrombosis (DVT), GERD/Reflux, Hyperlipidemia, Hypertension, Myocardial Infarction ([place]), Sleep Apnea/CPAP/BIPAP, Vascular Disorder Additional Past Medical History / Comment(s): 02/20/16 [place] with cardiac wwbjmr-Gfwi-uv wore life vest for 7 weeks, 2010 DVT RIGHT leg, bilateral lower leg cellulitis in past, bilateral varicose veins, PVD, NIDDM type II, BERTRAND with CPAP. Last Myocardial Infarction Date:: 02/20/16 History of Any Multi-Drug Resistant Organisms: MRSA Date of last positivie culture/infection: 2017 MDRO Source:: right leg Past Surgical History: Heart Catheterization With Stent Additional Past Surgical History / Comment(s): circumcism, Additional Past Anesthesia/Blood Transfusion Reaction / Comment(s): Pt has never had anesthesia Date of Last Stent Placement:: 02/20/16 Past Psychological History: No Psychological Hx Reported Smoking Status: Former smoker Past Alcohol Use History: None Reported Past Drug Use History: None Reported - Past Family History Father Family Medical History: Coronary Artery Disease (CAD), Diabetes Mellitus, Eye Disorder Additional Family Medical History / Comment(s): Bradycardia, blind. Father is in his early 70's. Mother Family Medical History: Coronary Artery Disease (CAD), Diabetes Mellitus Additional Family Medical History / Comment(s): Benign brain tumor. Mother is in her early 70's General Exam - General Exam Comments Initial Comments: Significant right lower extremity swelling and edema erythema, open ulcers, drainage. Limitations: no limitations General appearance: alert, in no apparent distress Head exam: Present: atraumatic, normocephalic, normal inspection Eye exam: Present: normal appearance, PERRL, EOMI. Absent: scleral icterus, conjunctival injection, periorbital swelling ENT exam: Present: normal exam, mucous membranes moist Neck exam: Present: normal inspection. Absent: tenderness, meningismus, lymphadenopathy Respiratory exam: Present: normal lung sounds bilaterally. Absent: respiratory distress, wheezes, rales, rhonchi, stridor Cardiovascular Exam: Present: regular rate, normal rhythm, normal heart sounds. Absent: systolic murmur, diastolic murmur, rubs, gallop, clicks GI/Abdominal exam: Present: soft, normal bowel sounds. Absent: distended, tenderness, guarding, rebound, rigid Extremities exam: Present: normal inspection, full ROM, normal capillary refill. Absent: tenderness, pedal edema, joint swelling, calf tenderness Back exam: Present: normal inspection Neurological exam: Present: alert, oriented X3, CN II-XII intact Psychiatric exam: Present: normal affect, normal mood Skin exam: Present: warm, dry, intact, normal color. Absent: rash Course Vital Signs 03/14/19 17:18 Temperature 99.1 F Pulse Rate 90 Respiratory 18 Rate Blood Pressure 158/106 O2 Sat by Pulse 98 Oximetry - Reevaluation(s) Reevaluation #1: 03/14/19 19:00 Medical record is reviewed Medical Decision Making - Medical Decision Making Plan I male needed to be admitted for right lower extremity cellulitis, weeping infection. MRSA infection Disposition Clinical Impression: Cellulitis of right lower extremity, MRSA (methicillin resistant staph aureus) culture positive Disposition: ADMITTED IP TO THIS HOSP Condition: Fair Is patient prescribed a controlled substance at d/c from ED?: No Referrals: [facility],Clinic [Primary Care Provider] - 1-2 days
[2019-03-14] MEDS ORDERED: VANCOMYCIN 2,500 MG in SODIUM CHLORIDE 0.9% 500 ML 500 ML IVPB STA (18:43)
[2019-03-14] MEDS ORDERED: VANCOMYCIN 2,250 MG in SODIUM CHLORIDE 0.9% 500 ML 500 ML IVPB STA (18:45)
[2019-03-14 19:20] LABS: Calcium 9.7 mg/dL (8.4-10.2); Magnesium 1.3 mg/dL (1.6-2.3); Phosphorus 3.7 mg/dL (2.5-4.5); Potassium 4.2 mmol/L (3.5-5.1); Total Bilirubin 1.1 mg/dL (0.2-1.3); Total Protein 7.6 g/dL (6.3-8.2)
[2019-03-14 19:31] LABS: Anisocytosis Slight; Basophils % (A) 0 %; Eosinophils # (A) 0.7 k/uL (0-0.7); Eosinophils % (A) 9 %; HGB 12.5 gm/dL (13.0-17.5); Lymphocytes # (A) 0.9 k/uL (1.0-4.8); Lymphocytes % (A) 12 %; MCHC 32.9 g/dL (31.0-37.0); Mean Platelet Volume 7.5; Monocytes # (A) 0.5 k/uL (0-1.0); Monocytes % (A) 6 %; Neutrophils # (A) 5.3 k/uL (1.3-7.7); Neutrophils % (A) 70 %; RBC 4.32 m/uL (4.30-5.90); RDW 16.2 % (11.5-15.5); WBC 7.5 k/uL (3.8-10.6)
[2019-03-14 19:38] LABS: Platelet Count 315 k/uL (150-450)
[2019-03-14 22:39] LABS: Glucose,Whole Blood 165 mg/dL (75-99)
[2019-03-14] MEDS ORDERED: NITROGLYCERIN SL TABS 0.4 MG TAB SUBLINGUAL PRN (22:59)
[2019-03-14] MEDS ORDERED: ONDANSETRON 4 MG/2 ML VIAL IVP PRN (23:01)
[2019-03-14] MEDS ORDERED: HYDROmorphone 0.5 MG/0.5 ML SYRINGE IVP PRN (23:01)
[2019-03-14] MEDS ORDERED: TEMAZEPAM 15 MG CAP PO PRN (23:01)
[2019-03-14] MEDS ORDERED: ALPRAZolam 0.25 MG TAB PO PRN (23:15)
[2019-03-14] MEDS: INSULIN DETEMIR (LEVEMIR) 100 UNIT/ML SYR SQ SCH (23:28)
[2019-03-14] MEDS ORDERED: ARTIFICIAL TEARS-HYPROMELLOSE DROPS 15 ML BTL BOTH EYES PRN (23:30)
[2019-03-15 06:46] LABS: Appearance,Urine Clear (Clear); Bilirubin,Urine Negative (Negative); Blood,Urine Negative (Negative); Color,Urine Yellow; Glucose,Urine (UA) 4+ (Negative); Ketones,Urine Negative (Negative); Leukocyte Esterase,Urine Negative (Negative); Nitrite,Urine Negative (Negative); PH, Urine 6.5 (5.0-8.0); Protein,Urine 1+ (Negative); RBC,Urine <1 /hpf (0-5); Specific Gravity,Urine 1.014 (1.001-1.035); Squamous Epithelial Cell,Urine <1 /hpf (0-4); Urobilinogen,Urine <2.0 mg/dL (<2.0); WBC,Urine 1 /hpf (0-5)
[2019-03-15 07:33] LABS: Glucose,Whole Blood 205 mg/dL (75-99)
[2019-03-15] MEDS: INSULIN ASPART (NovoLOG) 100 UNIT/ML VIAL SQ SCH ×4 (07:35→20:40)
[2019-03-15] MEDS: ASPIRIN 81 MG PO SCH (07:36)
[2019-03-15] MEDS: HYDROCHLOROTHIAZIDE 25 MG TAB PO SCH (07:36)
[2019-03-15] MEDS: metFORMIN 500 MG TAB PO SCH ×2 (07:36→20:39)
[2019-03-15] MEDS: LOSARTAN 50 MG TAB PO SCH (07:36)
[2019-03-15] MEDS: VANCOMYCIN 2,000 MG in SODIUM CHLORIDE 0.9% 500 ML 500 ML IVPB SCH ×2 (07:36→23:13)
[2019-03-15] MEDS: CLOPIDOGREL 75 MG TAB PO SCH (07:36)
[2019-03-15] MEDS: METOPROLOL SUCCINATE (ER) 100 MG TAB.ER.24H PO SCH (07:36)
[2019-03-15] MEDS: PANTOPRAZOLE 40 MG TABLET PO SCH (07:36)
[2019-03-15] MEDS: ENOXAPARIN 40 MG/0.4 ML SYRINGE SQ SCH (07:37)
[2019-03-15] MEDS: IPRATROPIUM-ALBUTEROL 3 ML NEB INHALATION SCH ×3 (08:22→20:21)
[2019-03-15] MEDS: SYMBICORT 160-4.5 MCG INHALER INHALATION SCH ×2 (08:22→20:21)
[2019-03-15 08:47] LABS: Basophils % (A) 0 %; Eosinophils # (A) 0.1 k/uL (0-0.7); Eosinophils % (A) 1 %; HGB 11.4 gm/dL (13.0-17.5); Lymphocytes # (A) 0.8 k/uL (1.0-4.8); Lymphocytes % (A) 9 %; MCH 28.9 pg (25.0-35.0); MCHC 32.6 g/dL (31.0-37.0); MCV 88.6 fL (80.0-100.0); Mean Platelet Volume 7.6; Monocytes # (A) 0.2 k/uL (0-1.0); Monocytes % (A) 3 %; Neutrophils # (A) 7.2 k/uL (1.3-7.7); Neutrophils % (A) 87 %; Platelet Count 322 k/uL (150-450); RBC 3.95 m/uL (4.30-5.90); RDW 15.7 % (11.5-15.5); WBC 8.4 k/uL (3.8-10.6)
[2019-03-15 08:57] LABS: Calcium 9.1 mg/dL (8.4-10.2); Potassium 4.6 mmol/L (3.5-5.1)
[2019-03-15] MEDS ORDERED: PANTOPRAZOLE 40 MG TABLET PO SCH (09:00)
[2019-03-15 12:02] LABS: Glucose,Whole Blood 203 mg/dL (75-99)
[2019-03-15 16:55] LABS: Glucose,Whole Blood 282 mg/dL (75-99)
[2019-03-15] MEDS: AMPICILLIN-SULBACTAM 3 GM in SODIUM CHLORIDE 0.9% 100 ML IVPB SCH (17:56)
--- NOTE | 2019-03-15 18:09 | HP ---
HISTORY AND PHYSICAL DATE OF SERVICE: 03/15/2019 CHIEF COMPLAINT: Right leg swelling and infection. HISTORY OF PRESENT ILLNESS: This 49-year-old gentleman with a past medical history of multiple medical problems, including asthma, CAD, COPD, DVT, history of GERD, hypertension, hyperlipidemia, history of myocardial infarction, history of cardiac arrest with a history of atrial fibrillation, being followed by Dr. Mi in the outpatient setting, was recently admitted with significant cellulitis of the right leg to [facility]; however, the patient was directly transferred to [facility] because of suspicion of necrotic fasciitis after visualizing edema and subcutaneous tissues on the CT scan. [facility] apparently did not do any surgical evaluation. With medical treatment, patient improved and the patient was discharged home. 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 Subsequently the patient developed significant infection and swelling. It started in the calf area and extended around the leg on the right side and the patient was admitted for further evaluation and treatment. Patient also had a few dogs and cats, according to him. Otherwise, there is no history of any fever, rigor or chills. No history of headache, loss of consciousness, seizures at this time. PAST MEDICAL HISTORY: 1. CAD. 2. Asthma. 3. COPD. 4. DVT. 5. GERD. 6. Hypertension. 7. Hyperlipidemia. 8. History of myocardial infarction. 9. Sleep apnea. 10.History of recent cellulitis. HOME MEDICATIONS: 1. Metformin 1000 mg p.o. b.i.d. 2. Tetracycline 500 mg p.o. t.i.d. 3. Omeprazole 20 mg p.o. daily. 4. Nitrostat 0.4 sublingually p.r.n. 5. Toprol-XL 100 mg p.o. daily. 6. Cozaar 100 mg p.o. daily. 7. Combivent 1 puff t.i.d. 8. Lantus 46 units subcutaneously at bedtime. 9. HydroDIURIL 25 mg p.o. daily. 10.Plavix 75 mg p.o. daily. 11.Refresh tears 1 drop q.i.d. p.r.n. 12.Symbicort 160/4.5 two puffs b.i.d. 13.Lipitor 80 mg at bedtime. 14.Aspirin 81 mg p.o. daily. ALLERGIES: NONE. FAMILY HISTORY: History of CAD, diabetes mellitus, eye disorder, bradycardia in the family. SOCIAL HISTORY: Previous history of smoking. No current smoking or alcohol intake. REVIEW OF SYSTEMS: ENT: No diminished hearing. No diminished vision. CARDIOVASCULAR SYSTEM: No angina, palpitations. RESPIRATORY SYSTEM: No cough, hemoptysis. GI: As mentioned earlier. : No dysuria or retention. NERVOUS SYSTEM: No numbness, weakness. ALLERGY/IMMUNOLOGY: No asthma, hayfever. MUSCULOSKELETAL: As mentioned earlier. HEMATOLOGY/ONCOLOGY: No history of anemia. ENDOCRINE: Diabetes. CONSTITUTIONAL: As mentioned earlier. DERMATOLOGY: As mentioned earlier. RHEUMATOLOGY: Negative. PSYCHIATRY: As mentioned earlier. PHYSICAL EXAMINATION: Patient alert and oriented x3. Pulse 69, blood pressure 129/80, respiration 18, temperature 97.5, pulse ox 98% on room air. HEENT: Conjunctivae normal. Oral mucosa moist. NECK: No jugular venous distention. No carotid bruit. No lymph node enlargement. CARDIOVASCULAR SYSTEM: S1, S2 muffled. No S3. No S4. RESPIRATORY SYSTEM: Breath sounds diminished at the bases. No rhonchi. No crackles. ABDOMEN: Soft, non-tender. Obese. No mass palpable. LEGS: Significant swelling and pain and significant pain and erythema of the right leg present. Pulses are felt normally. NERVOUS SYSTEM: Higher functions as mentioned earlier. Moves all 4 limbs. No focal motor or sensory deficit. LYMPHATICS: No lymph node palpable in neck, axillae or groin. SKIN: No ulcer, rash, bleeding. JOINTS: No active deforming arthropathy. LABS: WBC 8.4, hemoglobin 11.4. Sodium 137, potassium 4.6. ASSESSMENT: 1. Acute severe cellulitis of the right leg with failure of outpatient treatment with methicillin-resistant Staphylococcus aeruginosa. 2. History of recent cellulitis and suspected necrotizing fasciitis. 3. Anemia, normocytic; anemia of chronic disease. 4. Diabetes mellitus, type 2. 5. History of asthma. 6. History of coronary artery disease. 7. History of chronic obstructive pulmonary disease. 8. History of deep vein thrombosis. 9. Gastroesophageal reflux disease. 10.Hypertension. 11.Hyperlipidemia. 12.History of myocardial infarction. 13.History of sleep apnea. 14.History of cardiac arrest with ventricular fibrillation. 15.History of methicillin-resistant Staphylococcus aeruginosa. 16.History of coronary artery disease, stent. 17.Obesity with body mass index of 44.5. 18.Remote history of nicotine dependence. RECOMMENDATIONS AND DISCUSSION: In this 49-year-old gentleman who presented with multiple complex medical issues, we will monitor the patient closely, continue the current medications, continue broad- spectrum IV antibiotics. Infectious disease evaluation. Cultures. The patient had apparently MRSA grown from the culture taken from [facility] cultures. I recommend vancomycin and Unasyn. Otherwise, DVT prophylaxis. Guarded prognosis because of multiple complex medical issues. Further recommendations to follow. See orders for further details. A copy of this dictation is being forwarded to Dr. Mi, who is the primary physician. MMODL / IJN: [id number] / MTDD
[2019-03-15 20:32] LABS: Glucose,Whole Blood 194 mg/dL (75-99)
[2019-03-15] MEDS: ATORVASTATIN 80 MG TAB PO SCH (20:39)
[2019-03-15] MEDS: INSULIN DETEMIR (LEVEMIR) 100 UNIT/ML SYR SQ SCH (20:40)
[2019-03-15] MEDS ORDERED: NYSTAT-TRIAMCIN 100,000-0.1 UNIT/GM-% CREAM 30 GM TUBE TOPICAL SCH (23:15)
--- NOTE | 2019-03-15 23:17 | P.CONS ---
History of Present Illness - Reason for Consult Consult date: 03/15/19 Right lower extremity cellulitis Requesting physician: Sami Low - Chief Complaint Right leg pain swelling and redness x few days - History of Present Illness Patient is a 49-year-old male with a past medical history significant for an episode of right lower extremity cellulitis for which the patient was admitted at this facility beginning of January 2019 patient was subsequently transferred to [facility] with concern for possible necrotizing fasciit is patient mentioned no surgical intervention was drawn and he was treated with IV antibiotic therapy subsequently discharged home on oral Augmentin patient did mention resolution of his cellulitis with oral Augmentin and was doing okay until about a week ago and started having swelling and redness to the right leg the patient has been evaluated at [facility] urgent care twice the patient was initially treated with oral Augmentin subsequently the patient was called and mentioned the culture back with MRSA and he was started on oral tetracycline however the patient continued having swelling and redness in the leg with some weeping edema for the patient presented to [facility] ER on arrival for the patient has been afebrile his white count was normal the patient had been started on vancomycin pharmacy to dose infection is was consulted for further recommendation regarding antibiotic therapy patient pain to the right leg is more for the leaking pain about 3 out of 10 especially when he walks on it may concern has been swelling and the redness and some drainage and resting some improvement since he has been admitted to the hospital Review of Systems Positive points has been mentioned in HPI rest of the systems are negative Past Medical History Past Medical History: Asthma, Coronary Artery Disease (CAD), COPD, Deep Vein Thrombosis (DVT), GERD/Reflux, Hyperlipidemia, Hypertension, Myocardial Infarction (PA), Sleep Apnea/CPAP/BIPAP, Vascular Disorder Additional Past Medical History / Comment(s): 02/20/16 PA with cardiac aysuew-Vnam-fe wore life vest for 7 weeks, 2010 DVT RIGHT leg, bilateral lower leg cellulitis in past, bilateral varicose veins, PVD, NIDDM type II, BERTRAND with CPAP. Last Myocardial Infarction Date:: 02/20/16 History of Any Multi-Drug Resistant Organisms: MRSA Year Discovered:: 2018 MDRO Source:: right leg Past Surgical History: Heart Catheterization With Stent Additional Past Surgical History / Comment(s): circumcism, Additional Past Anesthesia/Blood Transfusion Reaction / Comm: Pt has never had anesthesia Date of Last Stent Placement:: 02/20/16 Past Psychological History: No Psychological Hx Reported Additional Psychological History / Comment(s): Pt resides with his fiancee and 2 dogs. He is independent. Smoking Status: Former smoker Past Alcohol Use History: None Reported Additional Past Alcohol Use History / Comment(s): Pt states he started smoking at age 18 yrs and quit 02/20/16. Past Drug Use History: None Reported - Past Family History Father Family Medical History: Coronary Artery Disease (CAD), Diabetes Mellitus, Eye Disorder Additional Family Medical History / Comment(s): Bradycardia, blind. Father is in his early 70's. Mother Family Medical History: Coronary Artery Disease (CAD), Diabetes Mellitus Additional Family Medical History / Comment(s): Benign brain tumor. Mother is in her early 70's Medications and Allergies Home Medications Medication Instructions Recorded Confirmed Type Atorvastatin [Lipitor] 80 mg PO HS #30 tab 02/27/16 03/14/19 Rx Metoprolol Succinate (ER) [Toprol 100 mg PO DAILY #60 tab.er.24h 02/27/16 03/14/19 Rx XL] Nitroglycerin Sl Tabs [Nitrostat] 0.4 mg SUBLINGUAL Q5M PRN #100 tab 02/27/16 03/14/19 Rx Aspirin 81 mg PO DAILY 11/25/16 03/14/19 History Clopidogrel [Plavix] 75 mg PO DAILY 11/25/16 03/14/19 History Losartan Potassium [Cozaar] 100 mg PO DAILY 11/25/16 03/14/19 History Budesonide/Formoterol Fumarate 2 puff INHALATION RT-BID 01/12/19 03/14/19 History [Symbicort 160-4.5 Mcg Inhaler] Carboxymethylcellulose Sodium 1 drop BOTH EYES QID PRN 01/12/19 03/14/19 History [Refresh Tears] Hydrochlorothiazide [Hydrodiuril] 25 mg PO DAILY 01/12/19 03/14/19 History Insulin Glargine [Lantus] 46 unit SQ HS 01/12/19 03/14/19 History Ipratropium/Albuterol Sulfate 1 puff INHALATION RT-TID 01/12/19 03/14/19 History [Combivent Respimat Inhaler] metFORMIN HCL 1,000 mg PO BID 01/12/19 03/14/19 History Omeprazole 20 mg PO DAILY 03/14/19 03/14/19 History Tetracycline HCl 500 mg PO TID 03/14/19 03/14/19 History Allergies Allergy/AdvReac Type Severity Reaction Status Date / Time No Known Allergies Allergy Verified 03/14/19 18:19 Physical Exam Vitals: Vital Signs Temp Pulse Pulse Resp BP BP Pulse Ox 03/15/19 08:35 72 03/15/19 08:23 76 03/15/19 07:27 97.5 F L 73 16 146/78 93 L 03/14/19 22:00 98.6 F 83 20 150/79 97 03/14/19 20:00 98.1 F 92 18 159/92 98 03/14/19 19:58 98.0 F 73 16 153/100 98 03/14/19 19:40 70 16 97 03/14/19 17:18 99.1 F 90 18 158/106 98 Intake and Output 03/14/19 03/15/19 03/15/19 22:59 06:59 14:59 Intake Total 1300 200 Balance 1300 200 Intake: Amount of Fluid Infused ( 1100 ml) Oral 200 200 Other: Voiding Method Toilet Toilet # Voids 1 Weight 140.614 kg GENERAL DESCRIPTION: Middle-aged male lying in bed, no distress. No tachypnea or accessory muscle of respiration use. HEENT: Shows Pallor , no scleral icterus. Oral mucous membrane is dry. No pharyngeal erythema or thrush NECK: Trachea central, no thyromegaly. LUNGS: Unlabored breathing. Clear to auscultation anteriorly. No wheeze or crackle. HEART: S1, S2, regular rate and rhythm. No loud murmur ABDOMEN: Soft, no tenderness , guarding or rigidity, no organomegaly EXTREMITIES: Right leg and did have diffuse swelling and redness with some eczematous changes superficial ulceration no foul-smelling drainage SKIN: No rash, no masses palpable. NEUROLOGICAL: The patient is awake, alert, oriented x3, mood and affect normal. Results CBC & Chem 7: 03/15/19 08:13 03/15/19 08:13 Labs: Abnormal Lab Results - Last 24 Hours (Table) 03/14/19 03/14/19 03/14/19 Range/Units 18:49 18:49 22:26 RBC (4.30-5.90) m/uL Hgb 12.5 L (13.0-17.5) gm/dL Hct 38.0 L (39.0-53.0) % RDW 16.2 H (11.5-15.5) % Lymphocytes # 0.9 L (1.0-4.8) k/uL BUN 23 H (9-20) mg/dL Glucose 166 H (74-99) mg/dL POC Glucose (mg/dL) 165 H (75-99) mg/dL Magnesium 1.3 L (1.6-2.3) mg/dL ALT 20 L (21-72) U/L Urine Protein (Negative) Urine Glucose (UA) (Negative) 03/15/19 03/15/19 03/15/19 Range/Units 05:30 07:26 08:13 RBC 3.95 L (4.30-5.90) m/uL Hgb 11.4 L (13.0-17.5) gm/dL Hct 35.0 L (39.0-53.0) % RDW 15.7 H (11.5-15.5) % Lymphocytes # 0.8 L (1.0-4.8) k/uL BUN (9-20) mg/dL Glucose (74-99) mg/dL POC Glucose (mg/dL) 205 H (75-99) mg/dL Magnesium (1.6-2.3) mg/dL ALT (21-72) U/L Urine Protein 1+ H (Negative) Urine Glucose (UA) 4+ H (Negative) 03/15/19 03/15/19 Range/Units 08:13 12:00 RBC (4.30-5.90) m/uL Hgb (13.0-17.5) gm/dL Hct (39.0-53.0) % RDW (11.5-15.5) % Lymphocytes # (1.0-4.8) k/uL BUN 22 H (9-20) mg/dL Glucose 205 H (74-99) mg/dL POC Glucose (mg/dL) 203 H (75-99) mg/dL Magnesium (1.6-2.3) mg/dL ALT (21-72) U/L Urine Protein (Negative) Urine Glucose (UA) (Negative) Assessment and Plan Assessment: 1-patient with acute right lower extremity cellulitis in this patient who did have diffuse swelling and redness currently with no high-grade fever or elevated white count some of the eczematous features and clear drainage with outpatient culture positive for MRSA patient reporting sudden worsening over the last day or 2 which is usually a feature of his streptococcal disease (1) Cellulitis of right lower extremity Current Visit: Yes Status: Acute Code(s): L03.115 - CELLULITIS OF RIGHT LOWER LIMB SNOMED Code(s): 192689814 (2) MRSA (methicillin resistant staph aureus) culture positive Current Visit: Yes Status: Acute Code(s): Z22.322 - CARRIER OR SUSPECTED CARRIER OF METHICILLIN RESIS STAPH SNOMED Code(s): 117248701 Plan: 1--vancomycin pharmacy to dose target trough of 15 while watching her kidney function and Vanco trough closely 2-Mycolog cream to the eczematous rash of the right leg twice a day 3-Bobby wrap to the right leg from just above the toe to below the knee to keep the swelling down we will follow on clinical condition and culture to further adjust medication if needed Thank you for this consultation will follow this patient along with you Time with Patient: Greater than 30
[2019-03-16] MEDS: TRIAMCINOLONE 0.1% CREAM 80 GM TUBE TOPICAL SCH ×3 (00:59→20:09)
[2019-03-16] MEDS: NYSTATIN 100,000UNIT/GM CREAM 30 GM TUBE TOPICAL SCH ×3 (00:59→21:06)
[2019-03-16] MEDS: AMPICILLIN-SULBACTAM 3 GM in SODIUM CHLORIDE 0.9% 100 ML IVPB SCH ×5 (02:20→23:39)
[2019-03-16] MEDS: IPRATROPIUM-ALBUTEROL 3 ML NEB INHALATION SCH ×3 (07:17→20:07)
[2019-03-16] MEDS: SYMBICORT 160-4.5 MCG INHALER INHALATION SCH ×2 (07:17→20:07)
[2019-03-16 07:21] LABS: Glucose,Whole Blood 118 mg/dL (75-99)
[2019-03-16] MEDS: INSULIN ASPART (NovoLOG) 100 UNIT/ML VIAL SQ SCH ×4 (07:40→21:03)
[2019-03-16] MEDS: CLOPIDOGREL 75 MG TAB PO SCH (07:45)
[2019-03-16] MEDS: metFORMIN 500 MG TAB PO SCH ×2 (07:45→20:06)
[2019-03-16] MEDS: HYDROCHLOROTHIAZIDE 25 MG TAB PO SCH (07:45)
[2019-03-16] MEDS: METOPROLOL SUCCINATE (ER) 100 MG TAB.ER.24H PO SCH (07:45)
[2019-03-16] MEDS: ASPIRIN 81 MG PO SCH (07:45)
[2019-03-16] MEDS: PANTOPRAZOLE 40 MG TABLET PO SCH (07:45)
[2019-03-16] MEDS: LOSARTAN 50 MG TAB PO SCH (07:45)
[2019-03-16] MEDS: VANCOMYCIN 2,000 MG in SODIUM CHLORIDE 0.9% 500 ML 500 ML IVPB SCH ×2 (07:46→20:10)
[2019-03-16] MEDS: ENOXAPARIN 40 MG/0.4 ML SYRINGE SQ SCH (07:46)
[2019-03-16 08:33] LABS: Basophils % (A) 0 %; Eosinophils # (A) 0.9 k/uL (0-0.7); Eosinophils % (A) 10 %; HCT 37.8 % (39.0-53.0); HGB 12.5 gm/dL (13.0-17.5); Lymphocytes # (A) 1.8 k/uL (1.0-4.8); Lymphocytes % (A) 20 %; MCH 29.4 pg (25.0-35.0); MCHC 33.1 g/dL (31.0-37.0); MCV 88.8 fL (80.0-100.0); Mean Platelet Volume 6.9; Monocytes # (A) 0.4 k/uL (0-1.0); Monocytes % (A) 4 %; Neutrophils # (A) 5.8 k/uL (1.3-7.7); Neutrophils % (A) 64 %; Platelet Count 309 k/uL (150-450); RBC 4.26 m/uL (4.30-5.90); RDW 15.6 % (11.5-15.5); WBC 9.1 k/uL (3.8-10.6)
[2019-03-16 08:55] LABS: Calcium 9.3 mg/dL (8.4-10.2)
[2019-03-16] MEDS: diphenhydrAMINE 25 MG CAP PO PRN (10:51)
[2019-03-16 12:00] LABS: Glucose,Whole Blood 160 mg/dL (75-99)
--- NOTE | 2019-03-16 14:13 | PN ---
PROGRESS NOTE DATE OF SERVICE: 03/16/2019 This is a 49-year-old gentleman admitted with right leg swelling and infection and cellulitis, is being closely monitored. No chest pain. No palpitations. No fever. PHYSICAL EXAM: Alert and oriented x3, pulse is 80, blood pressure is 140/92, respiration 18, temperature 97.2, pulse ox 98% on room air. HEENT: Conjunctivae normal. NECK: No jugular venous distension. CARDIOVASCULAR: S1, S2, muffled. RESPIRATORY: Breath sounds diminished at the bases, scattered rhonchi, no crackles. ABDOMEN: Soft, nontender. LEGS: Right leg cellulitis. NERVOUS SYSTEM: No focal deficits. LABS: WBC is 9.4, hemoglobin is 12.5 and glucose 114. ASSESSMENT: 1. Acute severe cellulitis of the right leg with failure of outpatient treatment with MRSA. 2. History of recent cellulitis with suspected necrotizing fasciitis referred to [facility]. 3. Anemia, normocytic anemia of chronic disease. 4. Diabetes mellitus type 2. 5. History of asthma. 6. History of coronary artery disease. 7. History of chronic obstructive pulmonary disease. 8. Deep venous thrombosis. 9. History of gastroesophageal reflux disease. 10.Hypertension. 11.Hyperlipidemia. 12.History of myocardial infarction. 13.History of sleep apnea. 14.History of cardiac arrest with ventricular fibrillation. 15.History of methicillin-resistant Staphylococcus aureus. 16.History of coronary artery disease, stent. 17.Obesity with body mass index of 44.5. 18.Remote history of nicotine dependence. RECOMMENDATION: Recommend to continue current medications, current management and symptomatic treatment. Otherwise, at this time I recommend continue with IV antibiotics. Closely follow with Infectious Disease. Guarded prognosis. Further recommendations to follow. MMODL / IJN: [id number] /
[2019-03-16] MEDS: HYDROcodone/APAP 5-325MG 1 EACH TAB PO PRN (15:04)
--- NOTE | 2019-03-16 16:10 | PN ---
PROGRESS NOTE DATE OF SERVICE: 03/16/2019 REASON FOR FOLLOWUP: Right lower extremity cellulitis. INTERVAL HISTORY: The patient is currently afebrile. The patient has been breathing comfortably. The right leg swelling and redness are slightly decreased. Denies any chest pain, shortness of breath or cough. No abdominal pain or diarrhea. PHYSICAL EXAMINATION: Blood pressure is 146/86, pulse 75, temperature of 98. He is 97% on room air. General description is a middle-aged male lying in bed in no distress. RESPIRATORY SYSTEM: Unlabored breathing. Clear to auscultation anteriorly. HEART: S1, S2. Regular rate and rhythm. ABDOMEN: Soft. No tenderness. Right leg overall swelling and redness have decreased. LABS: Hemoglobin is 12.5, white count 9.1. BUN of 21, creatinine 1.13. DIAGNOSTIC IMPRESSION AND PLAN: Patient with right lower extremity cellulitis with diffuse swelling and redness, possibly streptococcal. However, outpatient culture has been positive for MRSA; hence will continue with vancomycin and Unasyn. Local care with Mycolog cream along with Bobby wrap to keep the swelling down. Continue with supportive care. MMODL / IJN: [id number] /
[2019-03-16 17:12] LABS: Glucose,Whole Blood 186 mg/dL (75-99)
[2019-03-16] MEDS: ATORVASTATIN 80 MG TAB PO SCH (20:06)
[2019-03-16] MEDS ORDERED: IPRATROPIUM-ALBUTEROL 3 ML NEB INHALATION PRN (20:13)
[2019-03-16 20:39] LABS: Glucose,Whole Blood 204 mg/dL (75-99)
[2019-03-16] MEDS: INSULIN DETEMIR (LEVEMIR) 100 UNIT/ML SYR SQ SCH (21:03)
[2019-03-17] MEDS: diphenhydrAMINE 25 MG CAP PO PRN (04:23)
[2019-03-17] MEDS: AMPICILLIN-SULBACTAM 3 GM in SODIUM CHLORIDE 0.9% 100 ML IVPB SCH ×2 (06:01→10:55)
[2019-03-17] MEDS ORDERED: VANCOMYCIN TROUGH DUE 1 EACH MISC MISCELLANE ONE (07:00)
[2019-03-17 07:11] LABS: Glucose,Whole Blood 112 mg/dL (75-99)
[2019-03-17] MEDS: SYMBICORT 160-4.5 MCG INHALER INHALATION SCH ×2 (07:20→19:27)
[2019-03-17 07:29] LABS: Basophils % (A) 0 %; Eosinophils # (A) 1.1 k/uL (0-0.7); Eosinophils % (A) 16 %; HCT 33.5 % (39.0-53.0); Lymphocytes # (A) 1.2 k/uL (1.0-4.8); Lymphocytes % (A) 17 %; MCHC 32.8 g/dL (31.0-37.0); MCV 88.6 fL (80.0-100.0); Mean Platelet Volume 7.3; Monocytes # (A) 0.4 k/uL (0-1.0); Monocytes % (A) 6 %; Neutrophils # (A) 4.2 k/uL (1.3-7.7); Neutrophils % (A) 60 %; Platelet Count 291 k/uL (150-450); RBC 3.78 m/uL (4.30-5.90); RDW 15.5 % (11.5-15.5)
[2019-03-17 07:40] LABS: African American GFR (CKD) >90 (>60 ml/min/1.73 sqM); Anion Gap 9 mmol/L; Blood Urea Nitrogen 18 mg/dL (9-20); Calcium 8.9 mg/dL (8.4-10.2); Carbon Dioxide 27 mmol/L (22-30); Chloride 102 mmol/L (98-107); Glucose 107 mg/dL (74-99); Sodium 138 mmol/L (137-145)
[2019-03-17] MEDS: INSULIN ASPART (NovoLOG) 100 UNIT/ML VIAL SQ SCH ×4 (07:50→21:06)
[2019-03-17] MEDS: CLOPIDOGREL 75 MG TAB PO SCH (07:53)
[2019-03-17] MEDS: HYDROCHLOROTHIAZIDE 25 MG TAB PO SCH (07:53)
[2019-03-17] MEDS: ASPIRIN 81 MG PO SCH (07:53)
[2019-03-17] MEDS: ENOXAPARIN 40 MG/0.4 ML SYRINGE SQ SCH (07:53)
[2019-03-17] MEDS: PANTOPRAZOLE 40 MG TABLET PO SCH (07:53)
[2019-03-17] MEDS: LOSARTAN 50 MG TAB PO SCH (07:53)
[2019-03-17] MEDS: metFORMIN 500 MG TAB PO SCH ×2 (07:53→21:06)
[2019-03-17] MEDS: VANCOMYCIN 2,000 MG in SODIUM CHLORIDE 0.9% 500 ML 500 ML IVPB SCH ×2 (07:53→21:05)
[2019-03-17] MEDS: METOPROLOL SUCCINATE (ER) 100 MG TAB.ER.24H PO SCH (07:53)
[2019-03-17] MEDS: NYSTATIN 100,000UNIT/GM CREAM 30 GM TUBE TOPICAL SCH ×2 (07:54→21:10)
[2019-03-17] MEDS: TRIAMCINOLONE 0.1% CREAM 80 GM TUBE TOPICAL SCH ×2 (07:55→21:10)
[2019-03-17 12:24] LABS: Glucose,Whole Blood 179 mg/dL (75-99)
[2019-03-17 17:25] LABS: Glucose,Whole Blood 159 mg/dL (75-99)
--- NOTE | 2019-03-17 17:54 | PN ---
PROGRESS NOTE DATE OF SERVICE: 03/17/2019. This 49-year-old gentleman who was admitted with acute severe cellulitis of the right leg with failure of outpatient treatment is being closely monitored. Patient is on IV antibiotics. No chest pain. No palpitations. No fever. Cultures are negative so far currently. The previous culture showed beta-hemolytic strep group C. PHYSICAL EXAMINATION: Alert and oriented x3. Pulse 85, blood pressure 154/95, respiration 20, temperature 98.6, pulse ox 94% on room air. HEENT: Conjunctivae normal. NECK: No jugular venous distention. RESPIRATORY SYSTEM: Breath sounds diminished at the bases. A few scattered rhonchi. No crackles. ABDOMEN: Soft. LEGS: Bilateral leg swelling and significant cellulitis on the right leg present. NERVOUS SYSTEM: No focal deficit. LABS: WBC 7, hemoglobin 11. Eosinophils are 1.1. ASSESSMENT: 1. Acute severe cellulitis of the right leg with failure of outpatient treatment with methicillin-resistant Staphylococcus aeruginosa. 2. History of recent cellulitis with suspected necrotizing fasciitis, referred to [facility]. 3. Anemia, normocytic; anemia of chronic disease. 4. Diabetes mellitus, type 2. 5. History of asthma. 6. History of coronary artery disease. 7. History of chronic obstructive pulmonary disease. 8. History of deep vein thrombosis. 9. History of gastroesophageal reflux disease. 10.Hypertension. 11.Hyperlipidemia. 12.History of myocardial infarction. 13.History of sleep apnea. 14.History of cardiac arrest with ventricular fibrillation. 15.History of methicillin-resistant Staphylococcus aeruginosa. 16.History of coronary artery disease, stent. 17.Obesity with body mass index of 44.5. 18.Remote history of nicotine dependence. RECOMMENDATIONS AND DISCUSSION: I recommend to continue current medications, continue with the monitoring, symptomatic treatment. Otherwise at this time I recommend continuing the antibiotics. Monitor blood sugars closely. DVT prophylaxis. Closely follow with Infectious Disease. Guarded prognosis. Further recommendations to follow. MMODL / IJN: [id number] /
[2019-03-17 20:33] LABS: Glucose,Whole Blood 168 mg/dL (75-99)
[2019-03-17] MEDS: INSULIN DETEMIR (LEVEMIR) 100 UNIT/ML SYR SQ SCH (21:06)
[2019-03-17] MEDS: HEPARIN SODIUM,PORCINE 5,000 UNIT/ML 1 ML VIAL SQ SCH (21:06)
[2019-03-17] MEDS: ATORVASTATIN 80 MG TAB PO SCH (21:06)
--- NOTE | 2019-03-17 21:56 | PN ---
PROGRESS NOTE DATE OF SERVICE: 03/17/2019. REASON FOR FOLLOWUP: Left leg cellulitis. INTERVAL HISTORY: The patient is currently afebrile. Patient has been breathing comfortably. He still has maculopapular rash to the left thigh area only. Overall pain and discomfort to the left leg has improved. No nausea, vomiting. No abdominal pain. No diarrhea. PHYSICAL EXAMINATION: Blood pressure is 154/95 with a pulse of 85, temperature 98.6. He is 95% on room air. General description is a middle-aged male lying in bed in no distress. Respiratory system: Unlabored breathing. Clear to auscultation anteriorly. Heart is S1, S2. Regular rate and rhythm. ABDOMEN: Soft, no tenderness. Right leg swelling and redness has decreased. Did have erythematous rash to right thigh. Currently with no blisters or any drainage. LABS: Hemoglobin is 11.1, white count 7.0, BUN of 18, creatinine 1.02. DIAGNOSTIC IMPRESSION AND PLAN: Patient with right lower extremity cellulitis. The patient is currently covered with vancomycin as outpatient culture positive for MRSA though clinically more of a streptococcal disease, now with developing erythematous rash questionable related to the Unasyn which will be discontinued. The patient started on cefazolin. Local care with Mycolog cream and vancomycin to continue while monitoring his clinical course closely. MMODL / IJN: [id number] /
[2019-03-18] MEDS: INSULIN ASPART (NovoLOG) 100 UNIT/ML VIAL SQ SCH ×4 (07:44→21:22)
[2019-03-18 07:45] LABS: Glucose,Whole Blood 121 mg/dL (75-99)
[2019-03-18] MEDS: PANTOPRAZOLE 40 MG TABLET PO SCH (07:45)
[2019-03-18] MEDS: LOSARTAN 50 MG TAB PO SCH (07:45)
[2019-03-18] MEDS: CLOPIDOGREL 75 MG TAB PO SCH (07:45)
[2019-03-18] MEDS: HEPARIN SODIUM,PORCINE 5,000 UNIT/ML 1 ML VIAL SQ SCH ×2 (07:45→21:22)
[2019-03-18] MEDS: metFORMIN 500 MG TAB PO SCH ×2 (07:45→21:18)
[2019-03-18] MEDS: METOPROLOL SUCCINATE (ER) 100 MG TAB.ER.24H PO SCH (07:45)
[2019-03-18] MEDS: ASPIRIN 81 MG PO SCH (07:45)
[2019-03-18] MEDS: NYSTATIN 100,000UNIT/GM CREAM 30 GM TUBE TOPICAL SCH ×2 (07:46→23:51)
[2019-03-18] MEDS: HYDROCHLOROTHIAZIDE 25 MG TAB PO SCH (07:46)
[2019-03-18] MEDS: TRIAMCINOLONE 0.1% CREAM 80 GM TUBE TOPICAL SCH ×2 (07:46→23:51)
[2019-03-18] MEDS: diphenhydrAMINE 25 MG CAP PO PRN (07:51)
[2019-03-18] MEDS: SYMBICORT 160-4.5 MCG INHALER INHALATION SCH ×2 (09:07→19:29)
[2019-03-18] MEDS: VANCOMYCIN 2,000 MG in SODIUM CHLORIDE 0.9% 500 ML 500 ML IVPB SCH ×2 (09:51→21:16)
[2019-03-18] MEDS: HYDROcodone/APAP 5-325MG 1 EACH TAB PO PRN (10:50)
[2019-03-18] MEDS: methylPREDNISolone SOD SUCCI 40 MG/ML 1 ML VIAL IV SCH ×2 (10:51→17:22)
[2019-03-18 12:03] LABS: Glucose,Whole Blood 151 mg/dL (75-99)
[2019-03-18 16:59] LABS: Glucose,Whole Blood 217 mg/dL (75-99)
--- NOTE | 2019-03-18 18:55 | PN ---
PROGRESS NOTE DATE OF SERVICE: 03/18/2019 REASON FOR FOLLOWUP: Right lower extremity cellulitis and possible drug reaction. INTERVAL HISTORY: The patient is currently afebrile. He has been breathing comfortably. Denies having any chest pain, shortness of breath or cough. No abdominal pain or any worsening pain to the right leg area. PHYSICAL EXAMINATION: Blood pressure 144/83 with a pulse of 69, temperature 98.1. He is 96% on room air. General description is a middle-aged male lying in bed in no distress. RESPIRATORY SYSTEM: Unlabored breathing. Clear to auscultation anteriorly. HEART: S1, S2. Regular rate and rhythm. ABDOMEN: Soft. No tenderness. Right leg with mostly eczematous changes, some superficial wound, but the drainage has improved. LABS: BUN of 18, creatinine 1.02. DIAGNOSTIC IMPRESSION AND PLAN: Patient with right lower extremity cellulitis with diffuse swelling and redness, likely streptococcal disease, though outpatient cultures are positive for MRSA. Patient is currently covered with cefazolin, and the vancomycin antibiotic will be adjusted to clindamycin 600 q.8 with a plan to finish therapy with the oral clindamycin. Local wound care as ordered with Mycolog cream and close outpatient followup. MMODL / IJN: [id number] /
[2019-03-18 20:07] LABS: Glucose,Whole Blood 277 mg/dL (75-99)
--- NOTE | 2019-03-18 20:40 | PN ---
PROGRESS NOTE DATE OF SERVICE: 03/18/2019. This 49-year-old gentleman who was admitted with acute severe cellulitis also had an element of eczema, per Infectious Disease. The cultures grew MRSA from elsewhere. No chest pain. No palpitations. No fever. PHYSICAL EXAMINATION: Alert and oriented x3. Pulse 69, blood pressure 142/83, respiration 20, temperature 98.1, pulse ox 96% on room air. HEENT: Conjunctivae normal. NECK: No jugular venous distention. CARDIOVASCULAR SYSTEM: S1, S2 muffled. RESPIRATORY SYSTEM: Breath sounds diminished at the bases. No rhonchi. No crackles. ABDOMEN: Soft, non-tender. LEGS: Right leg swelling and significant excoriations of skin and features of eczema also present. NERVOUS SYSTEM: No focal deficit. LABS: Accu-Cheks 121, 151. WBC 7, hemoglobin 3.7. BMP noted. ASSESSMENT: 1. Acute severe cellulitis of the right leg with failure of outpatient treatment with methicillin-resistant Staphylococcus aeruginosa. 2. History of recent cellulitis with suspected necrotizing fasciitis; referred to [facility] at that time. 3. Allergic rash, possibly secondary to antibiotics. 4. Anemia, normocytic; anemia of chronic disease. 5. Diabetes mellitus, type 2. 6. History of asthma. 7. History of coronary artery disease. 8. History of chronic obstructive pulmonary disease. 9. History of deep vein thrombosis. 10.History of gastroesophageal reflux disease. 11.Hypertension. 12.Hyperlipidemia. 13.History of myocardial infarction. 14.History of sleep apnea. 15.History of cardiac arrest with ventricular fibrillation. 16.History of methicillin-resistant Staphylococcus aeruginosa. 17.History of coronary artery disease, stent. 18.History of obesity with body mass index of 44.5. 19.Remote history of nicotine dependence. RECOMMENDATIONS AND DISCUSSION: I recommend to continue current medications, continue with the monitoring, symptomatic treatment. Otherwise at this time I would recommend continuing with the antibiotics per Infectious Disease. Follow closely. Guarded prognosis because of multiple complex medical issues. The patient possibly had allergy to antibiotics as well. Will continue to monitor. Guarded prognosis. Further recommendations to follow. MMODL / IJN: [id number] /
[2019-03-18] MEDS: ATORVASTATIN 80 MG TAB PO SCH (21:19)
[2019-03-18] MEDS: INSULIN DETEMIR (LEVEMIR) 100 UNIT/ML SYR SQ SCH (21:22)
[2019-03-19] MEDS: diphenhydrAMINE 25 MG CAP PO PRN (03:05)
[2019-03-19 07:10] LABS: Glucose,Whole Blood 176 mg/dL (75-99)
[2019-03-19] MEDS: SYMBICORT 160-4.5 MCG INHALER INHALATION SCH ×2 (07:53→21:53)
[2019-03-19] MEDS: HYDROCHLOROTHIAZIDE 25 MG TAB PO SCH (08:18)
[2019-03-19] MEDS: PANTOPRAZOLE 40 MG TABLET PO SCH (08:18)
[2019-03-19] MEDS: LOSARTAN 50 MG TAB PO SCH (08:18)
[2019-03-19] MEDS: metFORMIN 500 MG TAB PO SCH ×2 (08:18→21:00)
[2019-03-19] MEDS: ASPIRIN 81 MG PO SCH (08:19)
[2019-03-19] MEDS: METOPROLOL SUCCINATE (ER) 100 MG TAB.ER.24H PO SCH (08:19)
[2019-03-19] MEDS: CLOPIDOGREL 75 MG TAB PO SCH (08:19)
[2019-03-19] MEDS: INSULIN ASPART (NovoLOG) 100 UNIT/ML VIAL SQ SCH ×4 (08:19→21:07)
[2019-03-19] MEDS: HEPARIN SODIUM,PORCINE 5,000 UNIT/ML 1 ML VIAL SQ SCH ×2 (08:19→21:00)
[2019-03-19] MEDS: VANCOMYCIN 2,000 MG in SODIUM CHLORIDE 0.9% 500 ML 500 ML IVPB SCH ×2 (09:58→19:22)
[2019-03-19] MEDS: TRIAMCINOLONE 0.1% CREAM 80 GM TUBE TOPICAL SCH ×2 (09:59→21:14)
[2019-03-19] MEDS: NYSTATIN 100,000UNIT/GM CREAM 30 GM TUBE TOPICAL SCH ×2 (09:59→21:14)
[2019-03-19 10:04] LABS: African American GFR (CKD) >90 (>60 ml/min/1.73 sqM)
[2019-03-19 11:45] LABS: Glucose,Whole Blood 240 mg/dL (75-99)
[2019-03-19] MEDS ORDERED: CALAMINE/ZINC OXIDE LOTION 177 ML BTL TOPICAL PRN (14:04)
[2019-03-19 16:35] LABS: Glucose,Whole Blood 205 mg/dL (75-99)
[2019-03-19] MEDS: diphenhydrAMINE 25 MG CAP PO SCH ×2 (17:21→21:00)
--- NOTE | 2019-03-19 20:13 | PN ---
PROGRESS NOTE DATE OF SERVICE: 03/19/2019 This 49-year-old gentleman was admitted with acute severe cellulitis, is being closely monitored. Patient has some itching also. The patient has some drug reaction and maculopapular rash also in addition to cellulitis of the right leg. No chest pain. No palpitations. No fever. Infectious Disease is following the patient closely. Patient on broad spectrum IV antibiotics. EXAM: Alert and oriented x3. Pulse 66, blood pressure 139/80, respiration 18, temperature 97.9, pulse ox 97% on room air. HEENT: Conjunctivae normal. Oral mucosa moist. NECK: No jugular venous distention. No lymph node enlargement. CARDIOVASCULAR: S1, S2. RESPIRATORY: Diminished breath sounds at the bases. No rhonchi, no crackles. ABDOMEN: Soft, nontender. LEGS: Right leg swelling and cellulitis. NERVOUS SYSTEM: No focal deficits. LABS: WBC 17, hemoglobin glucose 277, 205. ASSESSMENT: 1. Acute severe cellulitis of the right leg with failure of outpatient treatment with MRSA. 2. History of recent cellulitis with suspected necrotizing fasciitis, referred to [facility] at that time. 3. Allergic rash, possibly secondary to antibiotics. 4. Anemia, normocytic anemia of chronic disease. 5. Diabetes mellitus type 2. 6. History of asthma. 7. History of coronary artery disease. 8. Chronic obstructive pulmonary disease. 9. History of deep vein thrombosis. 10.History of gastroesophageal reflux disease. 11.Hypertension. 12.Hyperlipidemia. 13.History of myocardial infarction. 14.History of sleep apnea. 15.History of cardiac arrest with ventricular fibrillation. 16.History of MRSA. 17.History of coronary artery disease, stent. 18.History of obesity with body mass index of 44.5. 19.Remote history of nicotine dependence. RECOMMENDATIONS AND DISCUSSION: Continue current medications, continue to monitor, continue symptomatic treatment. Otherwise, at this time continue the antibiotics. Closely follow with Infectious Disease. Guarded prognosis because of multiple complex medical issues and further recommendations to follow. MMODL / IJN: [id number] /
[2019-03-19 20:59] LABS: Glucose,Whole Blood 233 mg/dL (75-99)
[2019-03-19] MEDS: ATORVASTATIN 80 MG TAB PO SCH (21:00)
[2019-03-19] MEDS: INSULIN DETEMIR (LEVEMIR) 100 UNIT/ML SYR SQ SCH (21:00)
[2019-03-20 07:17] LABS: Glucose,Whole Blood 138 mg/dL (75-99)
[2019-03-20] MEDS: SYMBICORT 160-4.5 MCG INHALER INHALATION SCH ×2 (07:22→21:35)
[2019-03-20] MEDS: PANTOPRAZOLE 40 MG TABLET PO SCH (08:48)
[2019-03-20] MEDS: diphenhydrAMINE 25 MG CAP PO SCH ×4 (08:48→21:41)
[2019-03-20] MEDS: METOPROLOL SUCCINATE (ER) 100 MG TAB.ER.24H PO SCH (08:48)
[2019-03-20] MEDS: INSULIN ASPART (NovoLOG) 100 UNIT/ML VIAL SQ SCH ×4 (08:48→22:07)
[2019-03-20] MEDS: metFORMIN 500 MG TAB PO SCH ×2 (08:48→20:45)
[2019-03-20] MEDS: HEPARIN SODIUM,PORCINE 5,000 UNIT/ML 1 ML VIAL SQ SCH ×2 (08:48→20:45)
[2019-03-20] MEDS: ASPIRIN 81 MG PO SCH (08:49)
[2019-03-20] MEDS: LOSARTAN 50 MG TAB PO SCH (08:49)
[2019-03-20] MEDS: CLOPIDOGREL 75 MG TAB PO SCH (08:49)
[2019-03-20] MEDS: HYDROCHLOROTHIAZIDE 25 MG TAB PO SCH (08:49)
[2019-03-20 08:56] LABS: African American GFR (CKD) >90 (>60 ml/min/1.73 sqM)
[2019-03-20] MEDS: TRIAMCINOLONE 0.1% CREAM 80 GM TUBE TOPICAL SCH ×2 (09:39→21:40)
[2019-03-20] MEDS: NYSTATIN 100,000UNIT/GM CREAM 30 GM TUBE TOPICAL SCH ×2 (09:39→21:40)
[2019-03-20] MEDS: VANCOMYCIN 2,000 MG in SODIUM CHLORIDE 0.9% 500 ML 500 ML IVPB SCH ×2 (09:39→20:45)
[2019-03-20 11:58] LABS: Glucose,Whole Blood 183 mg/dL (75-99)
[2019-03-20 17:31] LABS: Glucose,Whole Blood 171 mg/dL (75-99)
--- NOTE | 2019-03-20 19:26 | PN ---
PROGRESS NOTE DATE OF SERVICE: 03/20/2019 This 49-year-old gentleman admitted with significant cellulitis is being closely monitored. Patient is on IV antibiotics. Patient had MRSA grown from the cultures done elsewhere. No chest pain. No palpitations. No fever. Patient has significant allergic reaction also, responding to calamine lotion and Benadryl. EXAM: Alert and oriented x3. Pulse 83, blood pressure 150/93, respirations 16, temperature 98.7, pulse ox 98% on room air HEENT: Conjunctivae normal. Oral mucosa moist. NECK: No jugular venous distention. No lymph node enlargement. CARDIOVASCULAR: S1, S2. RESPIRATORY: Diminished breath sounds at the bases. Scattered rhonchi, no crackles. ABDOMEN: Soft, nontender. LEGS: Significant swelling and erythema and itching also of the right leg. NERVOUS SYSTEM: No focal deficits. LABS: Hemoglobin 11. Otherwise, glucose 171. ASSESSMENT: 1. Acute severe cellulitis of the right leg with failure of outpatient treatment with methicillin-resistant Staphylococcus aeruginosa. 2. History of recent cellulitis with suspected necrotizing fasciitis, referred to [facility] at that time. 3. Allergic reaction possibly secondary to antibiotics, maculopapular rash is improving. 4. Anemia, normocytic anemia of chronic disease. 5. Diabetes mellitus type 2. 6. History of asthma. 7. History of coronary artery disease. 8. History of chronic obstructive pulmonary disease. 9. History of deep vein thrombosis. 10.History of gastroesophageal reflux disease. 11.Hypertension. 12.Hyperlipidemia. 13.History of myocardial infarction. 14.History of sleep apnea. 15.History of cardiac arrest and ventricular fibrillation. 16.History of MRSA. 17.History of coronary artery disease, stent. 18.Obesity with body mass index of 44.5. 19.Remote history of nicotine dependence. RECOMMENDATIONS AND DISCUSSION: Recommend to continue current medication, continue to monitor, continue symptomatic treatment. Otherwise, continue the antibiotics. Closely follow with Infectious Disease. Guarded prognosis. Further recommendations to follow. MMODL / IJN: [id number] /
[2019-03-20 20:28] LABS: Glucose,Whole Blood 187 mg/dL (75-99)
[2019-03-20] MEDS: ATORVASTATIN 80 MG TAB PO SCH (20:45)
[2019-03-20] MEDS: INSULIN DETEMIR (LEVEMIR) 100 UNIT/ML SYR SQ SCH (21:41)
[2019-03-20 22:48] VITALS: RESP 20
[2019-03-21] MEDS: CLINDAMYCIN 600 MG in DEXTROSE 5% IN WATER 50 ML IVPB SCH ×4 (00:13→10:01)
--- NOTE | 2019-03-21 01:33 | PN ---
PROGRESS NOTE DATE OF SERVICE: 03/20/2019 REASON FOR FOLLOWUP: Right neck cellulitis and outpatient culture positive for MRSA. INTERVAL HISTORY: The patient is currently afebrile. Patient has been breathing comfortably. The patient denies having any chest pain, shortness of breath or cough. No diarrhea. PHYSICAL EXAMINATION: Blood pressure is 151/80 with a pulse of 68, temperature 98.1, he is 97% on room air. General description is a middle-aged male lying in bed in no distress. Respiratory system: Unlabored breathing, clear to auscultation anteriorly. Heart S1, S2. Regular rate and rhythm. Abdomen soft, no tenderness. Right leg swelling has improved. LABS: No new labs been obtained today. DIAGNOSTIC IMPRESSION AND PLAN: The patient with acute right lower extremity cellulitis. The patient did have diffuse swelling in his leg because of his possible allergic reaction, question related to Augmentin or tetracycline. Antibiotic in the form of clindamycin IV to switch to p.o. clindamycin on discharge. Local care to continue with Mycolog cream and continue supportive care. MMODL / IJN: [id number] /
[2019-03-21 05:00] VITALS: BP 144/90; PULSE 78; TEMP 98.5
[2019-03-21 07:13] LABS: Glucose,Whole Blood 99 mg/dL (75-99)
[2019-03-21] MEDS: SYMBICORT 160-4.5 MCG INHALER INHALATION SCH (08:09)
[2019-03-21 09:27] LABS: African American GFR (CKD) >90 (>60 ml/min/1.73 sqM)
[2019-03-21] MEDS: INSULIN ASPART (NovoLOG) 100 UNIT/ML VIAL SQ SCH ×2 (10:01→13:07)
[2019-03-21] MEDS: diphenhydrAMINE 25 MG CAP PO SCH ×2 (10:02→13:08)
[2019-03-21] MEDS: PANTOPRAZOLE 40 MG TABLET PO SCH (10:02)
[2019-03-21] MEDS: METOPROLOL SUCCINATE (ER) 100 MG TAB.ER.24H PO SCH (10:02)
[2019-03-21] MEDS: CLOPIDOGREL 75 MG TAB PO SCH (10:02)
[2019-03-21] MEDS: ASPIRIN 81 MG PO SCH (10:02)
[2019-03-21] MEDS: metFORMIN 500 MG TAB PO SCH (10:02)
[2019-03-21] MEDS: HYDROCHLOROTHIAZIDE 25 MG TAB PO SCH (10:02)
[2019-03-21] MEDS: LOSARTAN 50 MG TAB PO SCH (10:02)
[2019-03-21] MEDS: HEPARIN SODIUM,PORCINE 5,000 UNIT/ML 1 ML VIAL SQ SCH (10:03)
[2019-03-21 12:10] LABS: Glucose,Whole Blood 138 mg/dL (75-99)
--- NOTE | 2019-03-21 13:58 | PN ---
PROGRESS NOTE DATE OF SERVICE: 03/21/2019 REASON FOR FOLLOWUP: Right lower extremity cellulitis. INTERVAL HISTORY: The patient is currently afebrile. Patient has been breathing comfortably. Denies any chest pain, cough. Right leg swelling, redness has slightly decreased. No abdominal pain or any diarrhea. PHYSICAL EXAM: Blood pressure 144/90 with a pulse of 73, temperature 98.5, he is 97% on room air. General description is a middle aged male, up in the chair in no distress. RESPIRATORY SYSTEM: Unlabored breathing, clear to auscultation anteriorly. HEART: S1, S2. Regular rate and rhythm. ABDOMEN: Soft, no tenderness. Right leg swelling has improved, no drainage. LABS: No new labs have been obtained today. DIAGNOSTIC IMPRESSION AND PLAN: Patient with right lower extremity cellulitis, diffuse swelling with likely outpatient culture positive for MRSA. The patient did develop a rash, possibly to Augmentin, has been discontinued. On oral clindamycin to continue for about 7-10 days. Prescription sent to the pharmacy. Local care with . Follow up in the office. MMODL / IJN: [id number] /
[2019-03-21] MEDS: TRIAMCINOLONE 0.1% CREAM 80 GM TUBE TOPICAL SCH (15:09)
[2019-03-21] MEDS: NYSTATIN 100,000UNIT/GM CREAM 30 GM TUBE TOPICAL SCH (15:09)
[2019-03-21] MEDS ORDERED: CLINDAMYCIN 150 MG CAP PO SCH (16:00)
--- NOTE | 2019-03-21 23:01 | DS ---
DISCHARGE SUMMARY DATE OF SERVICE: 03/21/2019. FINAL DIAGNOSES: 1. Acute severe cellulitis of the right leg with failure of outpatient treatment with methicillin-resistant Staphylococcus aeruginosa. 2. History of recent cellulitis with suspected necrotizing fasciitis, referred to [facility] at that time. 3. Allergic reaction, possibly secondary to antibiotics; maculopapular rash, improving. 4. Anemia, normocytic; anemia of chronic disease. 5. Diabetes mellitus, type 2. 6. History of asthma. 7. History of coronary artery disease. 8. History of chronic obstructive pulmonary disease. 9. History of deep venous thrombosis. 10.History of gastroesophageal reflux disease. 11.Hypertension. 12.Hyperlipidemia. 13.History of myocardial infarction. 14.History of sleep apnea. 15.History of cardiac arrest with ventricular fibrillation. 16.History of methicillin-resistant Staphylococcus aeruginosa. 17.History of coronary artery disease, stent. 18.Obesity with body mass index of 44.5. 19.Remote history of nicotine dependence. DISCHARGE DISPOSITION: The patient will be discharged in stable condition with guarded prognosis. HISTORY OF PRESENT ILLNESS: This 49-year-old gentleman with a past medical history of multiple medical problems was admitted with acute severe cellulitis of the right leg with failure of outpatient treatment, treated with IV antibiotics. Dr. Alfred saw the patient. Cultures are showing MRSA from elsewhere. Current cultures are negative. Patient improved significantly with IV antibiotics. On exam, vitals are stable. CARDIOVASCULAR SYSTEM: S1, S2 muffled. ABDOMEN: Soft. NERVOUS SYSTEM: No focal deficit. EXTREMITIES: Right leg swelling and healing cellulitis. DISCHARGE ADVICE AND MEDICATIONS: 1. Diet is cardiac. 2. Activity limited until followup. 3. Follow up with [facility] and Dr. Mi in 1-2 days. 4. Follow up with Dr. Alfred, Infectious Disease, as recommended. 5. Aspirin 81 mg p.o. daily. 6. Combivent 1 puff t.i.d. 7. Cozaar 100 mg p.o. daily. 8. HydroDIURIL 25 mg p.o. daily. 9. Lantus 46 units subcutaneously at bedtime. 10.Metformin 1000 mg p.o. b.i.d. 11.Omeprazole 20 mg p.o. daily. 12.Plavix 75 mg p.o. daily. 13.Refresh Tears 1 drop both eyes q.i.d. p.r.n. 14.Symbicort 160/4.5 two puffs b.i.d. 15.Benadryl 25 mg p.o. q.i.d. 16.Cleocin 450 mg p.o. q.8. 17.Kenalog 1 application b.i.d. 18.Lipitor 80 mg at bedtime. 19.Nitrostat 0.4 sublingually p.r.n. 20.Toprol-XL 100 mg p.o. daily. Once again, the patient will be discharged in stable condition with guarded prognosis. MMODL / IJN: [id number] /
--- NOTE | 2019-03-23 15:24 | CDI ---
Documentation Clarification Form Date: 03/23/19 From: Rosio Guevara Phone: If you have a question regarding this query, please contact Georgina Irizarry at [phone] between 8am and 5pm. Admit Date: 03/14/2019 7:03:00 PM Patient Name: Bear Epstein Visit Number: [id number] Discharge Date: 03/21/2019 3:11:00 PM ATTENTION: The Clinical Documentation Specialists (CDI) and [facility] Coding Staff appreciate your assistance in clarifying documentation. Please respond to the clarification below the line at the bottom and electronically sign. The CDI & [facility] Coding staff will review the response and follow-up if needed. Please note: Queries are made part of the Legal Health Record. If you have any questions, please contact the author of this message via ITS. Dr. Sami Low The patient has diabetes, as indicated throughout the chart. The patient was admitted for cellulitis of the right lower extremity. History/Risk Factors: MRSA, Previous cellulitis with possible necrotizing fasciitis, DM, PVD Clinical Indicators: Right leg pain, swelling,redness and weeping Treatment: IV Ampicillin, IV Cefazolin, IV Ceftriaxone Sodium In order to capture the severity of Illness and necessary documentation specificity, please clarify the following Cellulitis related to DM Cellulitis unrelated to DM Other, please specify Unable to Determine Cellulitis related to DM MTDD
== END 2019-03-21 15:11 | disposition home or self-care (01) | DRG 638 ==
LOC: EC 16:52 → 4MS4W 19:03
PROVIDERS: ADMIT Hospitalist; ATTEND Hospitalist
DX: E11.628 Type 2 diabetes mellitus with other skin complications (principal); L03.115 Cellulitis of right lower limb; Z68.41 Body mass index [BMI] 40.0-44.9, adult; B95.62 Methicillin resistant Staphylococcus aureus infection as the cause of diseases classified elsewhere; E11.51 Type 2 diabetes mellitus with diabetic peripheral angiopathy without gangrene; D63.8 Anemia in other chronic diseases classified elsewhere; E66.9 Obesity, unspecified; E78.5 Hyperlipidemia, unspecified; G47.33 Obstructive sleep apnea (adult) (pediatric); I10 Essential (primary) hypertension; I25.10 Atherosclerotic heart disease of native coronary artery without angina pectoris; I25.2 Old myocardial infarction; J44.9 Chronic obstructive pulmonary disease, unspecified; K21.9 Gastro-esophageal reflux disease without esophagitis; I83.93 Asymptomatic varicose veins of bilateral lower extremities; T36.0X5A Adverse effect of penicillins, initial encounter; L27.1 Localized skin eruption due to drugs and medicaments taken internally; Z79.02 Long term (current) use of antithrombotics/antiplatelets; Z79.4 Long term (current) use of insulin; Z79.51 Long term (current) use of inhaled steroids; Z79.82 Long term (current) use of aspirin; Z79.899 Other long term (current) drug therapy; Z95.5 Presence of coronary angioplasty implant and graft; Z87.891 Personal history of nicotine dependence; Z86.74 Personal history of sudden cardiac arrest; Z86.718 Personal history of other venous thrombosis and embolism; Z86.14 Personal history of Methicillin resistant Staphylococcus aureus infection; Z82.1 Family history of blindness and visual loss; Z82.49 Family history of ischemic heart disease and other diseases of the circulatory system; Z83.3 Family history of diabetes mellitus
CPT/HCPCS: 36415; 80048; 80053; 80202; 81001; 82565; 83735; 84100; 85025; 87040; 93005; 94640; 96365; 96375; 99285

== ENCOUNTER 2020-10-17 13:16 | Emergency (ER) | payer OTHER ==
--- NOTE | 2020-10-17 15:20 | XR ---
EXAMINATION TYPE: XR chest 2V DATE OF EXAM: 10/17/2020 COMPARISON: 11/25/2016 INDICATION: Shortness of breath, positive test for Covid TECHNIQUE: Frontal and lateral views of the chest are obtained. FINDINGS: The heart size is normal. The pulmonary vasculature is normal. The lungs are clear. No suspicious peripheral consolidations are evident IMPRESSION: 1. No acute pulmonary process. Follow-up can be performed as clinically indicated.
--- NOTE | 2020-10-17 15:47 | ED ---
SOB HPI - General Chief Complaint: Shortness of Breath Stated Complaint: SOB, COVID + Source: patient Mode of arrival: ambulatory Limitations: no limitations - History of Present Illness Initial Comments: Bear is a 50-year-old male with history of asthma, coronary artery disease and a BMI of 51 who presents to the ER today after testing positive for COVID 19. Patient reports that his significant other past away from COVID earlier in the week, patient has been mildly short of breath so he was tested today was positive. Due to his comorbidities it was advised to come to the hospital for monoclonal antibody treatment. - Related Data Home Medications Medication Instructions Recorded Confirmed Losartan Potassium [Cozaar] 100 mg PO DAILY 11/25/16 10/17/20 Budesonide/Formoterol Fumarate 2 puff INHALATION RT-BID 01/12/19 10/17/20 [Symbicort 160-4.5 Mcg Inhaler] Ipratropium/Albuterol Sulfate 1 puff INHALATION RT-QID 01/12/19 10/17/20 [Combivent Respimat Inhaler] hydroCHLOROthiazide [Hydrodiuril] 25 mg PO DAILY 01/12/19 10/17/20 metFORMIN HCL 1,000 mg PO BID 01/12/19 10/17/20 Omeprazole 20 mg PO DAILY 03/14/19 10/17/20 Aspirin EC [Ecotrin Low Dose] 81 mg PO DAILY 10/17/20 10/17/20 Betamethasone Dipropionate 1 applic TOPICAL BID PRN 10/17/20 10/17/20 [Diprolene AF 0.05% Cream] Bydureon Auto-Injector 2mg/0.85ml 2 mg SQ Q7D 10/17/20 10/17/20 Carvedilol [Coreg] 25 mg PO BID 10/17/20 10/17/20 Empagliflozin [Jardiance] 10 mg PO DAILY 10/17/20 10/17/20 Insulin Glargine,Hum.rec.anlog 50 unit SQ BID 10/17/20 10/17/20 [Lantus Solostar] Multivitamins, Thera [Multivitamin 1 tab PO DAILY 10/17/20 10/17/20 (formulary)] Nitroglycerin Sl Tabs [Nitrostat] 0.4 mg SL Q5M PRN 10/17/20 10/17/20 Previous Rx's Medication Instructions Recorded Atorvastatin [Lipitor] 80 mg PO HS #30 tab 02/27/16 Allergies Allergy/AdvReac Type Severity Reaction Status Date / Time tetracycline Allergy Rash/Hives Verified 10/17/20 18:14 Review of Systems ROS Statement: Those systems with pertinent positive or pertinent negative responses have been documented in the HPI. ROS Other: All systems not noted in ROS Statement are negative. Past Medical History Past Medical History: Asthma, Coronary Artery Disease (CAD), COPD, Deep Vein Thrombosis (DVT), GERD/Reflux, Hyperlipidemia, Hypertension, Myocardial Infarction (MD), Sleep Apnea/CPAP/BIPAP, Vascular Disorder Additional Past Medical History / Comment(s): 02/20/16 MD with cardiac [id number] wore life vest for 7 weeks, 2010 DVT RIGHT leg, bilateral lower leg cellulitis in past, bilateral varicose veins, PVD, NIDDM type II, BERTRAND with CPAP. Last Myocardial Infarction Date:: 02/20/16 History of Any Multi-Drug Resistant Organisms: MRSA Date of last positivie culture/infection: 2017 MDRO Source:: right leg Past Surgical History: Heart Catheterization With Stent Additional Past Surgical History / Comment(s): circumcism, Additional Past Anesthesia/Blood Transfusion Reaction / Comment(s): Pt has never had anesthesia Date of Last Stent Placement:: 02/20/16 Past Psychological History: No Psychological Hx Reported Smoking Status: Former smoker Past Alcohol Use History: None Reported Past Drug Use History: None Reported - Past Family History Father Family Medical History: Coronary Artery Disease (CAD), Diabetes Mellitus, Eye Disorder Additional Family Medical History / Comment(s): Bradycardia, blind. Father is in his early 70's. Mother Family Medical History: Coronary Artery Disease (CAD), Diabetes Mellitus Additional Family Medical History / Comment(s): Benign brain tumor. Mother is in her early 70's General Exam - General Exam Comments Initial Comments: Physical Exam GENERAL: Obese male no acute distress HENT: Normocephalic, Atraumatic. EYES: PERRL, EOMI PULMONARY: Unlabored respirations. CARDIOVASCULAR: RRR Warm and well perfused extremities ABDOMEN: Non-distended SKIN: No rashes or bruising : Deferred NEUROLOGIC: Alert and oriented Normal speech Normal gait MUSCULOSKELETAL: Moving all extremities with no apparent injury PSYCHIATRIC: No SI/HI Limitations: no limitations Course Vital Signs 04/07/21 04/07/21 14:23 17:16 Temperature 99.6 F 98.8 F Pulse Rate 95 75 Respiratory 17 18 Rate Blood Pressure 138/85 123/76 O2 Sat by Pulse 94 L 95 Oximetry Medical Decision Making - Medical Decision Making She was seen and evaluated history obtained from the patient Patient is COVID positive, not significantly hypoxic, not requiring supplemental oxygen her hospitalization therefore is a candidate to receive monoclonal antibody therapy Patient tolerated the infusion well was discharged home in stable condition - Lab Data Lab Results 10/17/20 Range/Units 14:31 Coronavirus (PCR) Detected A (Not Detectd) Disposition Clinical Impression: COVID-19 Disposition: HOME SELF-CARE Condition: Stable Instructions (If sedation given, give patient instructions): Coronavirus Disease 2019 (COVID-19) Is patient prescribed a controlled substance at d/c from ED?: No Referrals: [facility],Clinic [Primary Care Provider] - 1-2 days
[2020-10-17] MEDS ORDERED: BAMLANIVIMAB (EUA) 700 MG, ETESEVIMAB (EUA) 1,400 MG in SODIUM CHLORIDE 0.9% 50 ML IVPB ONE (16:15)
[2020-10-17] MEDS ORDERED: SODIUM CHLORIDE 0.9% 50 ML IVPB ONE (17:00)
[2020-10-17 17:16] VITALS: BP 123/76; PULSE 75; RESP 18; TEMP 98.8
== END 2020-10-17 18:54 | disposition home or self-care (01) ==
LOC: EC 13:16
DX: U07.1 COVID-19 (principal); E78.5 Hyperlipidemia, unspecified; G47.33 Obstructive sleep apnea (adult) (pediatric); I10 Essential (primary) hypertension; I25.10 Atherosclerotic heart disease of native coronary artery without angina pectoris; I25.2 Old myocardial infarction; J44.9 Chronic obstructive pulmonary disease, unspecified; K21.9 Gastro-esophageal reflux disease without esophagitis; Z79.51 Long term (current) use of inhaled steroids; Z79.899 Other long term (current) drug therapy; Z86.718 Personal history of other venous thrombosis and embolism; Z87.891 Personal history of nicotine dependence
CPT/HCPCS: 87635; 71046; 99285; 96365; Q0245

== ENCOUNTER 2021-01-17 18:49 | Inpatient (IN) | payer OTHER ==
[2021-01-17] MEDS ORDERED: IBUPROFEN 600 MG TAB PO STA (19:20)
[2021-01-17] MEDS ORDERED: ACETAMINOPHEN TAB 500 MG TAB PO STA (19:20)
[2021-01-17] MEDS ORDERED: MORPHINE SULFATE 2 MG/ML SYRINGE IVP STA (19:21)
[2021-01-17] MEDS ORDERED: ONDANSETRON 4 MG/2 ML VIAL IVP STA (19:21)
[2021-01-17] MEDS ORDERED: VANCOMYCIN IV PER PHARMACY 1 EACH MISC MISCELLANE PRN (19:21)
[2021-01-17] MEDS: SODIUM CHLORIDE 0.9% 500 ML 500 ML IV SCH ×2 (19:26→21:55)
[2021-01-17] MEDS ORDERED: VANCOMYCIN 2,250 MG in SODIUM CHLORIDE 0.9% 500 ML 500 ML IVPB STA (19:27)
--- NOTE | 2021-01-17 19:43 | ED ---
Skin/Abscess/FB HPI - General Chief complaint: Skin/Abscess/Foreign Body Stated complaint: cellulitis Time Seen by Provider: 01/17/21 19:05 Source: patient, EMS Mode of arrival: EMS Limitations: no limitations - History of Present Illness Initial comments: 51 year-old male patient with past history significant for diabetes, cellulitis, COPD, and asthma presents for evaluation of fever and increasing redness to the right lower leg. Patient states he noticed the redness starting today. States that he does have a wound to the leg that started a couple of days ago. He does have lymphedema to the extremities, wears compression socks on a daily basis. Re ports fever at home, has not taken any antipyretics. Patient denies any recent rash, cough, shortness of breath, chest pain, abdominal pain, nausea, vomiting, diarrhea, constipation, back pain, numbness, tingling, dizziness, weakness, hematuria, dysuria, urinary urgency, urinary frequency, headache, visual changes, or any other complaints. - Related Data Home Medications Medication Instructions Recorded Confirmed Losartan Potassium [Cozaar] 100 mg PO DAILY 11/25/16 10/17/20 Budesonide/Formoterol Fumarate 2 puff INHALATION RT-BID 01/12/19 10/17/20 [Symbicort 160-4.5 Mcg Inhaler] Ipratropium/Albuterol Sulfate 1 puff INHALATION RT-QID 01/12/19 10/17/20 [Combivent Respimat Inhaler] hydroCHLOROthiazide [Hydrodiuril] 25 mg PO DAILY 01/12/19 10/17/20 metFORMIN HCL 1,000 mg PO BID 01/12/19 10/17/20 Omeprazole 20 mg PO DAILY 03/14/19 10/17/20 Aspirin EC [Ecotrin Low Dose] 81 mg PO DAILY 10/17/20 10/17/20 Betamethasone Dipropionate 1 applic TOPICAL BID PRN 10/17/20 10/17/20 [Diprolene AF 0.05% Cream] ByLoginzareon Auto-Injector 2mg/0.85ml 2 mg SQ Q7D 10/17/20 10/17/20 Carvedilol [Coreg] 25 mg PO BID 10/17/20 10/17/20 Empagliflozin [Jardiance] 10 mg PO DAILY 10/17/20 10/17/20 Insulin Glargine,Hum.rec.anlog 50 unit SQ BID 10/17/20 10/17/20 [Lantus Solostar] Multivitamins, Thera [Multivitamin 1 tab PO DAILY 10/17/20 10/17/20 (formulary)] Nitroglycerin Sl Tabs [Nitrostat] 0.4 mg SL Q5M PRN 10/17/20 10/17/20 Previous Rx's Medication Instructions Recorded Atorvastatin [Lipitor] 80 mg PO HS #30 tab 02/27/16 Allergies Allergy/AdvReac Type Severity Reaction Status Date / Time tetracycline Allergy Rash/Hives Verified 10/17/20 18:14 Review of Systems ROS Statement: Those systems with pertinent positive or pertinent negative responses have been documented in the HPI. ROS Other: All systems not noted in ROS Statement are negative. Past Medical History Past Medical History: Asthma, Coronary Artery Disease (CAD), COPD, Deep Vein Th rombosis (DVT), GERD/Reflux, Hyperlipidemia, Hypertension, Myocardial Infarction (SD), Sleep Apnea/CPAP/BIPAP, Vascular Disorder Additional Past Medical History / Comment(s): 02/20/16 [place] with cardiac [id number] wore life vest for 7 weeks, 2010 DVT RIGHT leg, bilateral lower leg cellulitis in past, bilateral varicose veins, PVD, NIDDM type II, BERTRAND with CPAP. Last Myocardial Infarction Date:: 02/20/16 History of Any Multi-Drug Resistant Organisms: MRSA Date of last positivie culture/infection: 2017 MDRO Source:: right leg Past Surgical History: Heart Catheterization With Stent Additional Past Surgical History / Comment(s): circumcism, Additional Past Anesthesia/Blood Transfusion Reaction / Comment(s): Pt has never had anesthesia Date of Last Stent Placement:: 02/20/16 Past Psychological History: No Psychological Hx Reported Smoking Status: Former smoker Past Alcohol Use History: None Reported Past Drug Use History: None Reported - Past Family History Father Family Medical History: Coronary Artery Disease (CAD), Diabetes Mellitus, Eye Disorder Additional Family Medical History / Comment(s): Bradycardia, blind. Father is in his early 70's. Mother Family Medical History: Coronary Artery Disease (CAD), Diabetes Mellitus Additional Family Medical History / Comment(s): Benign brain tumor. Mother is in her early 70's General Exam Limitations: no limitations General appearance: alert, in no apparent distress, other (This is a well- developed, well-nourished adult male patient in no acute distress. Vital signs upon presentation are temperature 102.0F, pulse 107, respirations 18, blood pressure 140/79, pulse ox 96% on room air.) ENT exam: Present: normal exam, normal oropharynx, mucous membranes moist Respiratory exam: Present: normal lung sounds bilaterally. Absent: respiratory distress, wheezes, rales, rhonchi, stridor Cardiovascular Exam: Present: normal rhythm, tachycardia, normal heart sounds. Absent: systolic murmur, diastolic murmur, rubs, gallop, clicks GI/Abdominal exam: Present: soft, normal bowel sounds. Absent: distended, tenderness, guarding, rebound, rigid Extremities exam: Present: full ROM, normal capillary refill, other (There is skin thickening noted to the right lower extremity with overlying erythema. Wound noted to the mid hurst, no purulent drainage. Pedal and posttibial pulses 2+.). Absent: tenderness, pedal edema, joint swelling, calf tenderness Neurological exam: Present: alert, oriented X3, CN II-XII intact Psychiatric exam: Present: normal affect, normal mood Skin exam: Present: warm, dry, intact, normal color. Absent: rash Course Vital Signs 01/17/21 19:07 Temperature 102 F H Pulse Rate 107 H Respiratory 18 Rate Blood Pressure 140/79 O2 Sat by Pulse 96 Oximetry Medical Decision Making - Medical Decision Making 51-year-old male patient presents for evaluation of increased cellulitis of the right lower leg. He also reports fever today. Physical examination did reveal skin thickening with overlying erythema with a wound to the right lower leg. He was afebrile 102F on arrival. Labs reviewed and did reveal white blood cell count at 12.0. Lactic acid was 3.5. Creatinine is elevated which is new for him. He'll be given IV fluids. Given Tylenol and Motrin to treat fever. He was started on vancomycin and for cellulitis. He'll be admitted to the hospital for further evaluation and monitoring. He is agreeable this plan. Case discussed with my attending Dr. Lange. - Lab Data Result diagrams: 01/17/21 19:20 01/17/21 19:20 Lab Results 07/03/0201/17/21 01/17/21 Range/Units 19:20 19:20 19:20 WBC 12.0 H (3.8-10.6) k/uL RBC 4.85 (4.30-5.90) m/uL Hgb 14.5 (13.0-17.5) gm/dL Hct 43.3 (39.0-53.0) % MCV 89.3 (80.0-100.0) fL MCH 29.9 (25.0-35.0) pg MCHC 33.5 (31.0-37.0) g/dL RDW 15.7 H (11.5-15.5) % Plt Count 178 (150-450) k/uL MPV 8.2 PT 10.5 (9.0-12.0) sec INR 1.0 (<1.2) APTT 22.8 (22.0-30.0) sec Sodium 133 L (137-145) mmol/L Potassium 3.5 (3.5-5.1) mmol/L Chloride 96 L (98-107) mmol/L Carbon Dioxide 29 (22-30) mmol/L Anion Gap 8 mmol/L BUN 20 (9-20) mg/dL Creatinine 1.44 H (0.66-1.25) mg/dL Est GFR (CKD-EPI)AfAm 65 (>60 ml/min/1.73 sqM) Est GFR (CKD-EPI)NonAf 56 (>60 ml/min/1.73 sqM) Glucose 234 H (74-99) mg/dL Plasma Lactic Acid Kannan (0.7-2.0) mmol/L Calcium 9.3 (8.4-10.2) mg/dL Total Bilirubin 1.5 H (0.2-1.3) mg/dL AST 43 (17-59) U/L ALT 31 (4-49) U/L Alkaline Phosphatase 61 (38-126) U/L Total Protein 5.9 L (6.3-8.2) g/dL Albumin 3.2 L (3.5-5.0) g/dL 01/17/21 Range/Units 19:20 WBC (3.8-10.6) k/uL RBC (4.30-5.90) m/uL Hgb (13.0-17.5) gm/dL Hct (39.0-53.0) % MCV (80.0-100.0) fL MCH (25.0-35.0) pg MCHC (31.0-37.0) g/dL RDW (11.5-15.5) % Plt Count (150-450) k/uL MPV PT (9.0-12.0) sec INR (<1.2) APTT (22.0-30.0) sec Sodium (137-145) mmol/L Potassium (3.5-5.1) mmol/L Chloride (98-107) mmol/L Carbon Dioxide (22-30) mmol/L Anion Gap mmol/L BUN (9-20) mg/dL Creatinine (0.66-1.25) mg/dL Est GFR (CKD-EPI)AfAm (>60 ml/min/1.73 sqM) Est GFR (CKD-EPI)NonAf (>60 ml/min/1.73 sqM) Glucose (74-99) mg/dL Plasma Lactic Acid Kannan 3.5 H* (0.7-2.0) mmol/L Calcium (8.4-10.2) mg/dL Total Bilirubin (0.2-1.3) mg/dL AST (17-59) U/L ALT (4-49) U/L Alkaline Phosphatase (38-126) U/L Total Protein (6.3-8.2) g/dL Albumin (3.5-5.0) g/dL Disposition Clinical Impression: Cellulitis of right leg, Sepsis, Acute kidney injury Disposition: ADMITTED IP TO THIS [facility] Condition: Serious Referrals: [facility],Clinic [Primary Care Provider] - 1-2 days Decision to Admit Reason: Admit from EC Decision Date: 01/17/21 Decision Time: 20:26
[2021-01-17 19:50] LABS: HCT 43.3 % (39.0-53.0); HGB 14.5 gm/dL (13.0-17.5); MCH 29.9 pg (25.0-35.0); MCHC 33.5 g/dL (31.0-37.0); MCV 89.3 fL (80.0-100.0); Mean Platelet Volume 8.2; Platelet Count 178 k/uL (150-450); RBC 4.85 m/uL (4.30-5.90); RDW 15.7 % (11.5-15.5)
[2021-01-17 19:58] LABS: Partial Thromboplastin Time 22.8 sec (22.0-30.0); Prothrombin Time 10.5 sec (9.0-12.0)
[2021-01-17 20:04] LABS: Albumin 3.2 g/dL (3.5-5.0); Calcium 9.3 mg/dL (8.4-10.2); Potassium 3.5 mmol/L (3.5-5.1); Total Bilirubin 1.5 mg/dL (0.2-1.3); Total Protein 5.9 g/dL (6.3-8.2)
[2021-01-17] MEDS ORDERED: NALOXONE 0.4 MG/ML 1 ML VIAL IV PRN (20:23)
[2021-01-17] MEDS ORDERED: ONDANSETRON 4 MG/2 ML VIAL IVP PRN (20:23)
[2021-01-17 20:29] LABS: Band Neutrophils % 31 %; Lymphocytes # (M) 0.24 k/uL (1.0-4.8); Metamyelocytes # (M) 0.36 k/uL (0); Metamyelocytes % 3 %; Monocytes # (M) 0.24 k/uL (0-1.0); Neutrophils % (M) 63 %; Nucleated Red Blood Cells 0 /100 WBC (0-0); Total Cells Counted 200
[2021-01-17] MEDS: SODIUM CHLORIDE 0.9% 1,000 ML IV SCH (21:56)
[2021-01-18] MEDS: SODIUM CHLORIDE 0.9% 1,000 ML IV SCH ×3 (04:21→17:56)
[2021-01-18] MEDS: ACETAMINOPHEN TAB 325 MG TAB PO PRN (08:21)
[2021-01-18 08:29] LABS: Appearance,Urine Cloudy (Clear); Bacteria,Urine Rare /hpf; Bilirubin,Urine Negative (Negative); Blood,Urine Negative (Negative); Color,Urine Yellow; Glucose,Urine (UA) 4+ (Negative); Ketones,Urine Negative (Negative); Leukocyte Esterase,Urine Moderate (Negative); Mucus,Urine Rare /hpf; Nitrite,Urine Negative (Negative); PH, Urine 5.5 (5.0-8.0); Protein,Urine 2+ (Negative); RBC,Urine 2 /hpf (0-5); Specific Gravity,Urine 1.025 (1.001-1.035); Squamous Epithelial Cell,Urine 1 /hpf (0-4); Urobilinogen,Urine <2.0 mg/dL (<2.0); WBC,Urine 17 /hpf (0-5)
[2021-01-18 09:18] LABS: HCT 42.9 % (39.6-50.0); HGB 13.4 g/dL (13.0-17.0); MCH 29.3 pg (27.0-32.0); MCHC 31.2 g/dL (32.0-37.0); MCV 93.9 fL (80.0-97.0); Mean Platelet Volume 11.2 fL (9.5-12.2); Platelet Count 170 X 10*3/uL (140-440); RBC 4.57 X 10*6/uL (4.40-5.60); WBC 11.03 X 10*3/uL (4.50-10.00)
[2021-01-18 10:28] LABS: African American GFR (CKD) 38.8 (60.0-200.0); BUN/Creat Ratio 13.18 Ratio (12.00-20.00); Non-African American GFR(CKD) 33.4 (60.0-200.0); Potassium 4.2 mmol/L (3.5-5.5)
[2021-01-18 10:33] LABS: Basophils # (A) 0.04 X 10*3/uL (0.00-0.10); Basophils % (A) 0.4 %; Eosinophils # (A) 0.03 X 10*3/uL (0.04-0.35); Eosinophils % (A) 0.3 %; Lymphocytes # (A) 0.11 X 10*3/uL (0.90-5.00); Monocytes # (A) 0.46 X 10*3/uL (0.20-1.00); Monocytes % (A) 4.2 %; Neutrophils % (A) 93.3 %
[2021-01-18] MEDS ORDERED: [UNRECOGNIZED DRUG - OTHER] SQ SCH (11:15)
[2021-01-18 11:59] LABS: Glucose,Whole Blood 255 mg/dL (75-99)
[2021-01-18] MEDS: ASPIRIN 81 MG PO SCH (12:45)
[2021-01-18] MEDS: INSULIN ASPART (NovoLOG) 100 UNIT/ML VIAL SQ SCH ×3 (13:17→20:37)
[2021-01-18] MEDS: PANTOPRAZOLE 40 MG TABLET PO SCH (13:17)
[2021-01-18] MEDS ORDERED: VANCOMYCIN 2,000 MG in SODIUM CHLORIDE 0.9% 500 ML 500 ML IVPB SCH ×2 (14:00→21:00)
[2021-01-18] MEDS: IPRATROPIUM-ALBUTEROL 3 ML NEB INHALATION PRN ×2 (15:54→19:47)
[2021-01-18] MEDS: HEPARIN SODIUM,PORCINE/PF 5,000 UNIT/0.5 ML SYRINGE SQ SCH (16:25)
--- NOTE | 2021-01-18 16:28 | P.HPIM ---
History of Present Illness H&P Date: 01/18/21 Chief Complaint: Increased swelling in his in his right lower leg Mr. Epstein is a 51-year-old male with a past medical history of asthma, coronary artery disease, COPD, DVT, GERD, hypertension, hyperlipidemia, obstructive sleep apnea, DVT in the right leg in 2010, chronic bilateral lower extremity varicose veins, peripheral vascular disease coming into the hospital with a chief complaint of swelling of his right lower extremity. He mentions that he has history of chronic bilateral lower extremity lymphedema and that he wears compression stockings on a daily basis. Patient mentions that he he saw a small bubble pop up on his right hurst that popped out and he wiped it with his hand, later on that area became red and formed a scab. Since then his right lower extremity became more red and he noticed it's more swollen and he started to have pain. Patient also mentions that he had fever at home and so came into the hospital for further evaluation. Patient denies having any nausea vomiting or diarrhea. No chest pain or palpitations. No cough or difficulty in breathing. No recent travel. No sick contacts. He denies having any headache, blurring of vision or weakness in his extremities. He denies having any joint pains or swelling. In the ER at the time of admission he had a fever of 102, tachycardic with heart rate of 107, respiratory rate 18, blood pressure 140/79 saturating at 96% on room air. He had an EKG that was showing sinus tachycardia. Reviewing his labs white count of 11, hemoglobin 13.4, platelets 170. Sodium 133, but pressure 4. 2, chloride 96, bicarbonate 24, B and 29, creatinine 2.2. Lactic acid 2.5. Albumin 3.2. Urine analysis 4+ glucose, moderate leukocyte esterase and 17 wbc's. Review of Systems REVIEW OF SYSTEMS: CONSTITUTIONAL: Fever HEENT: No headache, no neck stiffness, no blurring of vision CARDIOVASCULAR: no chest pain or palpitations PULMONARY: No cough or difficulty in breathing GASTROINTESTINAL: No Abdominal pain nausea vomiting or diarrhea NEUROLOGICAL: No weakness of extremities HEMATOLOGICAL: Denies any bleeding or petechiae. GENITOURINARY: Denies any burning micturition, frequency, or urgency. MUSCULOSKELETAL/RHEUMATOLOGICAL: Lymphedema bilateral lower extremities ENDOCRINE: Denies polyuria polydipsia or heat or cold intolerance The rest of the 14-point review of systems is negative. Past Medical History Past Medical History: Asthma, Coronary Artery Disease (CAD), COPD, Deep Vein Thrombosis (DVT), GERD/Reflux, Hyperlipidemia, Hypertension, Myocardial Infarction ([place]), Sleep Apnea/CPAP/BIPAP, Vascular Disorder Additional Past Medical History / Comment(s): 02/20/16 [place] with cardiac [facility] wore life vest for 7 weeks, 2010 DVT RIGHT leg, bilateral lower leg cellulitis in past, bilateral varicose veins, PVD, NIDDM type II, BERTRAND with CPAP. Last Myocardial Infarction Date:: 02/20/16 History of Any Multi-Drug Resistant Organisms: MRSA Date of last positivie culture/infection: 2018 MDRO Source:: right leg Past Surgical History: Heart Catheterization With Stent Additional Past Surgical History / Comment(s): circumcism, Additional Past Anesthesia/Blood Transfusion Reaction / Comment(s): Pt has never had anesthesia Date of Last Stent Placement:: 02/20/16 Past Psychological History: No Psychological Hx Reported Additional Psychological History / Comment(s): Pt resides with his fiancee and 2 dogs. He is independent. Smoking Status: Former smoker Past Alcohol Use History: None Reported Additional Past Alcohol Use History / Comment(s): Pt states he started smoking at age 18 yrs and quit 02/20/16. Past Drug Use History: None Reported - Past Family History Father Family Medical History: Coronary Artery Disease (CAD), Diabetes Mellitus, Eye Disorder Additional Family Medical History / Comment(s): Bradycardia, blind. Father is i n his early 70's. Mother Family Medical History: Coronary Artery Disease (CAD), Diabetes Mellitus Additional Family Medical History / Comment(s): Benign brain tumor. Mother is in her early 70's Medications and Allergies Home Medications Medication Instructions Recorded Confirmed Type Atorvastatin [Lipitor] 80 mg PO HS #30 tab 02/27/16 01/17/21 Rx Losartan Potassium [Cozaar] 100 mg PO DAILY 11/25/16 01/17/21 History Budesonide/Formoterol Fumarate 2 puff INHALATION RT-BID 01/12/19 01/17/21 History [Symbicort 160-4.5 Mcg Inhaler] Ipratropium/Albuterol Sulfate 1 puff INHALATION RT-QID PRN 01/12/19 01/17/21 History [Combivent Respimat Inhaler] hydroCHLOROthiazide [Hydrodiuril] 25 mg PO DAILY 01/12/19 01/17/21 History metFORMIN HCL 1,000 mg PO BID 01/12/19 01/17/21 History Omeprazole 20 mg PO DAILY 03/14/19 01/17/21 History Aspirin EC [Ecotrin Low Dose] 81 mg PO DAILY 10/17/20 01/17/21 History Bydureon Auto-Injector 2mg/0.85ml 2 mg SQ FR 10/17/20 01/17/21 History Carvedilol [Coreg] 25 mg PO BID 10/17/20 01/17/21 History Empagliflozin [Jardiance] 10 mg PO DAILY 10/17/20 01/17/21 History Nitroglycerin Sl Tabs [Nitrostat] 0.4 mg SL Q5M PRN 10/17/20 01/17/21 History Allergies Allergy/AdvReac Type Severity Reaction Status Date / Time tetracycline Allergy Rash/Hives Verified 01/17/21 21:37 Physical Exam Vitals: Vital Signs Temp Pulse Pulse Resp BP BP Pulse Ox 01/18/21 09:47 99.3 F 01/18/21 08:00 99 18 01/18/21 07:00 100.6 F H 99 18 108/72 96 01/18/21 05:26 94 18 107/69 97 01/18/21 02:00 99.1 F 85 12 90/60 100 01/18/21 01:34 86/54 01/18/21 01:04 97/65 01/18/21 00:48 88/60 96 01/18/21 00:39 99.1 F 85 12 83/57 85 L 01/17/21 23:33 98.9 F 91 22 91/61 93 L 01/17/21 21:52 100.7 F H 93 18 107/58 94 L 01/17/21 19:07 102 F H 107 H 18 140/79 96 Intake and Output 01/17/21 01/18/21 01/18/21 22:59 06:59 14:59 Intake Total 570 180 Balance 570 180 Intake: IV 570 Sodium Chloride 0.9% 1, 520 000 ml @ 130 mls/hr IV . Q7H42M [facility] Rx#:[id number] ceFAZolin 1,000 mg In 50 Sodium Chloride 0.9% 50 ml @ 100 mls/hr IVPB Q6H [facility] Rx#:[id number] Oral 180 Other: Voiding Method Urinal Urinal Weight 154.221 kg PHYSICAL EXAMINATION: GENERAL: no acute distress. Sitting comfortably in bed HEENT: Pupils are round and equally reacting to light. EOMI. No scleral icterus. No conjunctival pallor. CARDIOVASCULAR: S1 and S2 present. No murmurs, rubs, or gallops. PULMONARY: Bilateral breath sounds positive. No wheeze or crackles.. ABDOMEN: Soft,non -tender, normal bowel sounds. No guarding or rigidity. MUSCULOSKELETAL: No joint swelling or deformity. - EXTREMITIES: Bilateral lower extremities chronic lymphedematous changes Right lower extremity more red swollen and warm compared to the left lower extremity. NEUROLOGICAL: Gross neurological examination did not reveal any focal deficits. SKIN:No rash Results CBC & Chem 7: 01/18/21 05:28 01/18/21 05:28 Labs: Abnormal Lab Results - Last 24 Hours (Table) 01/17/21 01/17/21 01/17/21 Range/Units 19:20 19:20 19:20 WBC 12.0 H (3.8-10.6) k/uL MCHC (32.0-37.0) g/dL RDW 15.7 H (11.5-15.5) % Immature Gran # (0.00-0.04) X 10*3/uL Neutrophils # (1.80-7.70) X 10*3/uL Neutrophils # (Manual) 11.20 H (1.3-7.7) k/uL Lymphocytes # (0.90-5.00) X 10*3/uL Lymphocytes # (Manual) 0.24 L (1.0-4.8) k/uL Eosinophils # (0.04-0.35) X 10*3/uL Metamyelocytes # (Man) 0.36 H (0) k/uL Sodium 133 L (137-145) mmol/L Chloride 96 L (98-107) mmol/L Anion Gap (4.00-12.00) mmol/L BUN (9.0-27.0) mg/dL Creatinine 1.44 H (0.66-1.25) mg/dL Est GFR (CKD-EPI)AfAm (60.0-200.0) Est GFR (CKD-EPI)NonAf (60.0-200.0) Glucose 234 H (74-99) mg/dL POC Glucose (mg/dL) (75-99) mg/dL Plasma Lactic Acid Kannan 3.5 H* (0.7-2.0) mmol/L Calcium (8.7-10.3) mg/dL Total Bilirubin 1.5 H (0.2-1.3) mg/dL Total Protein 5.9 L (6.3-8.2) g/dL Albumin 3.2 L (3.5-5.0) g/dL Urine Protein (Negative) Urine Glucose (UA) (Negative) Ur Leukocyte Esterase (Negative) Urine WBC (0-5) /hpf Urine Bacteria (None) /hpf Urine Mucus (None) /hpf 01/17/21 01/18/21 01/18/21 Range/Units 22:30 05:28 05:28 WBC 11.03 H (3.8-10.6) k/uL MCHC 31.2 L (32.0-37.0) g/dL RDW 16.0 H (11.5-15.5) % Immature Gran # 0.09 H (0.00-0.04) X 10*3/uL Neutrophils # 10.30 H (1.80-7.70) X 10*3/uL Neutrophils # (Manual) (1.3-7.7) k/uL Lymphocytes # 0.11 L (0.90-5.00) X 10*3/uL Lymphocytes # (Manual) (1.0-4.8) k/uL Eosinophils # 0.03 L (0.04-0.35) X 10*3/uL Metamyelocytes # (Man) (0) k/uL Sodium 133 L (137-145) mmol/L Chloride (98-107) mmol/L Anion Gap 13.00 H (4.00-12.00) mmol/L BUN 29.0 H (9.0-27.0) mg/dL Creatinine 2.2 H (0.66-1.25) mg/dL Est GFR (CKD-EPI)AfAm 38.8 L (60.0-200.0) Est GFR (CKD-EPI)NonAf 33.4 L (60.0-200.0) Glucose 232 H (74-99) mg/dL POC Glucose (mg/dL) (75-99) mg/dL Plasma Lactic Acid Kannan 2.5 H* (0.7-2.0) mmol/L Calcium 8.0 L (8.7-10.3) mg/dL Total Bilirubin (0.2-1.3) mg/dL Total Protein (6.3-8.2) g/dL Albumin (3.5-5.0) g/dL Urine Protein (Negative) Urine Glucose (UA) (Negative) Ur Leukocyte Esterase (Negative) Urine WBC (0-5) /hpf Urine Bacteria (None) /hpf Urine Mucus (None) /hpf 01/18/21 01/18/21 Range/Units 08:19 11:57 WBC (3.8-10.6) k/uL MCHC (32.0-37.0) g/dL RDW (11.5-15.5) % Immature Gran # (0.00-0.04) X 10*3/uL Neutrophils # (1.80-7.70) X 10*3/uL Neutrophils # (Manual) (1.3-7.7) k/uL Lymphocytes # (0.90-5.00) X 10*3/uL Lymphocytes # (Manual) (1.0-4.8) k/uL Eosinophils # (0.04-0.35) X 10*3/uL Metamyelocytes # (Man) (0) k/uL Sodium (137-145) mmol/L Chloride (98-107) mmol/L Anion Gap (4.00-12.00) mmol/L BUN (9.0-27.0) mg/dL Creatinine (0.66-1.25) mg/dL Est GFR (CKD-EPI)AfAm (60.0-200.0) Est GFR (CKD-EPI)NonAf (60.0-200.0) Glucose (74-99) mg/dL POC Glucose (mg/dL) 255 H (75-99) mg/dL Plasma Lactic Acid Kannan (0.7-2.0) mmol/L Calcium (8.7-10.3) mg/dL Total Bilirubin (0.2-1.3) mg/dL Total Protein (6.3-8.2) g/dL Albumin (3.5-5.0) g/dL Urine Protein 2+ H (Negative) Urine Glucose (UA) 4+ H (Negative) Ur Leukocyte Esterase Moderate H (Negative) Urine WBC 17 H (0-5) /hpf Urine Bacteria Rare H (None) /hpf Urine Mucus Rare H (None) /hpf Microbiology - Last 24 Hours (Table) 01/17/21 19:20 Gram Stain - Preliminary Leg - Right Wound Culture - Preliminary Thrombosis Risk Factor Assmnt - Choose All That Apply Any of the Below Risk Factors Present?: Yes Each Factor Represents 1 point: Abnormal pulmonary function (COPD), Age 41-60 years, Obesity (BMI >25), Swollen legs (current) Other Risk Factors: No Other congenital or acquired thrombophilia - If yes, enter type in comment: No Thrombosis Risk Factor Assessment Total Risk Factor Score: 4 Thrombosis Risk Factor Assessment Level: Moderate Risk Assessment and Plan Assessment: ASSESSMENT Sepsis secondary to right lower extremity cellulitis Hypovolemic hyponatremia Acute kidney injury-secondary to #1 Lactic acidosis Chronic bilateral lower extremity lymphedema Type 2 diabetes mellitus COPD Coronary artery disease status post stenting History of DVT in the right leg in 2011 Bilateral varicose veins Peripheral vascular disease Hyperlipidemia Hypertension Obstructive sleep apnea on CPAP History of MRSA infection Former smoker Mild protein calorie malnutrition Morbid obesity with BMI of 47.4 PLAN: Antibiotics in the form of vancomycin and cefazolin have been started, ID consulted Will order bilateral lower extremity Doppler to rule out DVT, as the patient has history of DVT in the past Continue with IV fluids at 130 mL/h Avoid nephrotoxins-hold off metformin, losartan, hydrochlorothiazide, consulted nephrology Sliding scale of insulin Started on home medications GI DVT prophylaxis Further recommendations to follow depending on the progress of the patient
[2021-01-18 17:08] LABS: Glucose,Whole Blood 206 mg/dL (75-99)
--- NOTE | 2021-01-18 17:14 | US ---
EXAMINATION TYPE: US venous doppler duplex LE DATE OF EXAM: 01/18/2021 4:12 PM COMPARISON: US 01/12/2019 CLINICAL HISTORY: swelling. Very difficult and limited exam due to patient body habitus. Morbidly obe se SIDE PERFORMED: Bilateral TECHNIQUE: The lower extremity deep venous system is examined utilizing real time linear array sonog raquel with graded compression, doppler sonography and color-flow sonography. VESSELS IMAGED: Common Femoral Vein Deep Femoral Vein Greater Saphenous Vein * Femoral Vein Popliteal Vein Small Saphenous Vein * Proximal Calf Veins (* superficial vessels) Right Leg: Appears negative for DVT. Patient cannot tolerate compressions Left Leg: Appears negative for DVT IMPRESSION: No evidence of deep vein thrombosis in both legs.
[2021-01-18] MEDS: carvediloL 12.5 MG TAB PO SCH (17:58)
--- NOTE | 2021-01-18 19:14 | CONS ---
CONSULTATION DATE OF SERVICE: 01/18/2021 REASON FOR CONSULTATION: Right lower extremity cellulitis. HISTORY OF PRESENT ILLNESS: The patient is a 51-year-old male with a past medical significant for diabetes, COPD, asthma, history of recurrent lower extremity cellulitis. The patient presented to the hospital last evening for evaluation of increasing pain, swelling and redness of the right leg. The pain started the day of presentation to the hospital and seemed to progress. The patient does have chronic swelling to the lower extremity and noted getting swelling and redness to the right leg. He had been complaining of pain to the right leg to be more of a throbbing, intensity almost 10/10 when he presented to hospital. Did have improvement. Subsequently the patient did not have any open wound or any drainage. With these symptoms the patient was evaluated by the ER physician. On arrival to the ER, the patient did have fever of 102 degrees Fahrenheit. The patient was tachycardic and did have a white count of 12,000 with left shift. The patient did have elevated creatinine of 1.44 with up to 2.2 today. The patient has been evaluated by the ER physician, has been started on vancomycin and cefazolin. Infectious Disease was consulted for further management of antibiotic therapy. REVIEW OF SYSTEMS: Positive points have been mentioned in HPI. Rest of systems are negative. PAST MEDICAL HISTORY: Asthma, coronary disease COPD, DVT, GERD, hypertension, hyperlipidemia, [place], sleep apnea. PAST SURGICAL HISTORY: PTCA with stent. SOCIAL HISTORY: Remote history of smoking. No drinking or drug use. FAMILY HISTORY: Father with history of coronary disease and diabetes. Mother history of coronary disease and diabetes. ALLERGIES: TETRACYCLINE. MEDICATIONS: The patient is currently on Tylenol, DuoNeb, aspirin, Lipitor, Symbicort, Coreg, cefazolin 1 g q.6h, heparin, NovoLog, morphine sulfate, Narcan, Zofran, Protonix, and vancomycin pharmacy to dose. PHYSICAL EXAMINATION: Blood pressure 113/67, pulse of 96 temperature 9.4, T-max 100.6. He is 95% on room air. General description is a middle-aged male up in the bed in no distress. No tachypnea or accessory muscles of respiration use. HEENT examination shows no pallor or scleral icterus. Oral mucous membrane is dry. Neck trachea central no thyromegaly. Lungs unlabored breathing, decreased intensity of breath sounds. No wheeze. Heart S1, S2. Regular rate and rhythm. Abdomen is soft, no tenderness. No rigidity. Right leg did have diffuse swelling and redness, slightly warm to touch. No drainage. Neurologically patient is awake, alert,oriented x3. Affect normal. LABS: Hemoglobin is 12.4, white count of ,000 with left shift. Creatinine of 2.2 with a BUN of 29, lactase is 2.5. DIAGNOSTIC IMPRESSION AND PLAN: Patient admitted to the hospital with sepsis in this patient who had fever and elevated white count. Regarding his elevated white count source is acute right lower extremity cellulitis with diffuse swelling, redness. High clinical suspicion for the streptococcal cellulitis. Clinically doubt MRSA or any gram-negative infection. PLAN: 1. Discontinue vancomycin to decrease risk of nephrotoxicity. 2. Increase cefazolin to 2 grams q.8 hours. 3. Maikel the area of the redness site. 4. Ceftriaxone just above to below the knee. 5. We will follow up on clinical condition and culture to further adjust medication if needed. Thank you for this consultation. Will follow this patient along with you. MMODL / IJN: [id number] /
[2021-01-18] MEDS: SYMBICORT 160-4.5 MCG INHALER INHALATION SCH (19:49)
[2021-01-18 20:07] LABS: Glucose,Whole Blood 248 mg/dL (75-99)
[2021-01-18] MEDS: ATORVASTATIN 80 MG TAB PO SCH (20:37)
[2021-01-19] MEDS: HEPARIN SODIUM,PORCINE/PF 5,000 UNIT/0.5 ML SYRINGE SQ SCH ×4 (00:41→23:37)
[2021-01-19] MEDS: SODIUM CHLORIDE 0.9% 1,000 ML IV SCH ×2 (03:53→15:48)
[2021-01-19 06:55] LABS: Glucose,Whole Blood 213 mg/dL (75-99)
[2021-01-19 07:03] LABS: African American GFR (CKD) 52 (>60 ml/min/1.73 sqM); Anion Gap 4 mmol/L; Blood Urea Nitrogen 32 mg/dL (9-20); Calcium 7.8 mg/dL (8.4-10.2); Carbon Dioxide 30 mmol/L (22-30); Chloride 99 mmol/L (98-107); Glucose 192 mg/dL (74-99); Magnesium 1.8 mg/dL (1.6-2.3); Non-African American GFR(CKD) 45 (>60 ml/min/1.73 sqM); Potassium 3.5 mmol/L (3.5-5.1); Sodium 133 mmol/L (137-145)
[2021-01-19] MEDS: IPRATROPIUM-ALBUTEROL 3 ML NEB INHALATION PRN ×4 (07:22→20:08)
[2021-01-19] MEDS: SYMBICORT 160-4.5 MCG INHALER INHALATION SCH ×2 (07:22→20:07)
[2021-01-19] MEDS: INSULIN ASPART (NovoLOG) 100 UNIT/ML VIAL SQ SCH ×4 (08:21→20:29)
[2021-01-19] MEDS: MORPHINE SULFATE 4 MG/ML SYRINGE IV PRN ×2 (08:22→16:47)
[2021-01-19] MEDS: PANTOPRAZOLE 40 MG TABLET PO SCH (08:22)
[2021-01-19] MEDS: ASPIRIN 81 MG PO SCH (08:22)
[2021-01-19] MEDS ORDERED: SODIUM CHLORIDE 0.9% 1,000 ML IV SCH (10:15)
[2021-01-19] MEDS ORDERED: POTASSIUM CHLORIDE ER 20 MEQ TAB.ER PO STA (10:38)
--- NOTE | 2021-01-19 10:38 | P.NPCON ---
History of Present Illness - Reason for Consult acute renal failure - History of Present Illness Reason for consultation: Acute kidney injury History of present illness: Patient is a 51-year-old male seen in renal consultation for acute kidney injury. Patient's creatinine as of March 2019 was near 1 and was 1.4 for this admission. It peaked at 2.2 yesterday and is down to 1.73 today. Patient presented to the hospital with pain and swelling in his right lower extremity. He denies any drainage. He is currently on antibiotics for cellulitis. He did have a fever of 101F prior to admission. Good urine output. No hematuria or dysuria. No chest pain or shortness of breath. Oral intake is good. He is currently maintained on normal saline at 130 mL an hour. Patient's blood pressure this admission was low in the systolic 80s to 90s but is better now. This morning he was 138/73. He does have long-standing history of diabetes. Denies use of nonsteroidals. No family history of renal disease. Vital signs are stable. General: The patient appeared well nourished and normally developed. HEENT: Head exam is unremarkable. Neck is without jugular venous distension. LUNGS: Breath sounds decreased. HEART: Rate and Rhythm are regular. ABDOMEN: Soft, no distention. EXTREMITITES: Right lower extremity wrapped. No drainage. Past Medical History Past Medical History: Asthma, Coronary Artery Disease (CAD), COPD, Deep Vein Thrombosis (DVT), GERD/Reflux, Hyperlipidemia, Hypertension, Myocardial Infarction ([place]), Sleep Apnea/CPAP/BIPAP, Vascular Disorder Additional Past Medical History / Comment(s): 02/20/16 [place] with cardiac tfay[place] wore life vest for 7 weeks, 2010 DVT RIGHT leg, bilateral lower leg cellulitis in past, bilateral varicose veins, PVD, NIDDM type II, BERTRAND with CPAP. Last Myocardial Infarction Date:: 02/20/16 History of Any Multi-Drug Resistant Organisms: MRSA Date of last positivie culture/infection: 2017 MDRO Source:: right leg Past Surgical History: Heart Catheterization With Stent Additional Past Surgical History / Comment(s): circumcism, Additional Past Anesthesia/Blood Transfusion Reaction / Comment(s): Pt has never had anesthesia Date of Last Stent Placement:: 02/20/16 Past Psychological History: No Psychological Hx Reported Additional Psychological History / Comment(s): Pt resides with his fiancee and 2 dogs. He is independent. Smoking Status: Former smoker Past Alcohol Use History: None Reported Additional Past Alcohol Use History / Comment(s): Pt states he started smoking at age 18 yrs and quit 02/20/16. Past Drug Use History: None Reported - Past Family History Father Family Medical History: Coronary Artery Disease (CAD), Diabetes Mellitus, Eye Disorder Additional Family Medical History / Comment(s): Bradycardia, blind. Father is in his early 70's. Mother Family Medical History: Coronary Artery Disease (CAD), Diabetes Mellitus Additional Family Medical History / Comment(s): Benign brain tumor. Mother is in her early 70's Medications and Allergies Home Medications Medication Instructions Recorded Confirmed Type Atorvastatin [Lipitor] 80 mg PO HS #30 tab 02/27/16 01/17/21 Rx Losartan Potassium [Cozaar] 100 mg PO DAILY 11/25/16 01/17/21 History Budesonide/Formoterol Fumarate 2 puff INHALATION RT-BID 01/12/19 01/17/21 His tory [Symbicort 160-4.5 Mcg Inhaler] Ipratropium/Albuterol Sulfate 1 puff INHALATION RT-QID PRN 01/12/19 01/17/21 History [Combivent Respimat Inhaler] hydroCHLOROthiazide [Hydrodiuril] 25 mg PO DAILY 01/12/19 01/17/21 History metFORMIN HCL 1,000 mg PO BID 01/12/19 01/17/21 History Omeprazole 20 mg PO DAILY 03/14/19 01/17/21 History Aspirin EC [Ecotrin Low Dose] 81 mg PO DAILY 10/17/20 01/17/21 History Bydureon Auto-Injector 2mg/0.85ml 2 mg SQ FR 10/17/20 01/17/21 History Carvedilol [Coreg] 25 mg PO BID 10/17/20 01/17/21 History Empagliflozin [Jardiance] 10 mg PO DAILY 10/17/20 01/17/21 History Nitroglycerin Sl Tabs [Nitrostat] 0.4 mg SL Q5M PRN 10/17/20 01/17/21 History Allergies Allergy/AdvReac Type Severity Reaction Status Date / Time tetracycline Allergy Rash/Hives Verified 01/17/21 21:37 Physical Exam Vitals: Vital Signs Temp Pulse Pulse Resp BP Pulse Ox 01/19/21 07:37 94 01/19/21 07:25 90 91 L 01/19/21 06:45 99.5 F 92 16 138/73 93 L 01/19/21 02:00 92 01/19/21 00:40 92 18 104/62 94 L 01/18/21 20:00 92 01/18/21 19:59 92 01/18/21 19:49 90 92 L 01/18/21 18:52 99 F 92 20 92/63 92 L 01/18/21 16:08 100 01/18/21 15:57 96 01/18/21 15:00 99.4 F 101 H 18 113/67 95 Intake and Output 01/18/21 01/19/21 01/19/21 22:59 06:59 14:59 Intake Total 2180 1290 Balance 2180 1290 Intake: IV 2080 1090 Sodium Chloride 0.9% 1, 2080 1040 000 ml @ 130 mls/hr IV . Q7H42M [facility] Rx#:[id number] ceFAZolin 1,000 mg In 50 Sodium Chloride 0.9% 50 ml @ 100 mls/hr IVPB Q6H [facility] Rx#:[id number] Oral 100 200 Other: Voiding Method Urinal Urinal # Voids 2 1 Results - Lab Results Most recent lab results Calcium 7.8 mg/dL (8.4-10.2) L 01/19/21 05:33 Magnesium 1.8 mg/dL (1.6-2.3) 01/19/21 05:33 01/18/21 05:28 01/19/21 05:33 Assessment and Plan Plan: Assessment: 1. Acute kidney injury secondary to ATN secondary to hypotension/sepsis. Creatinine peaked at 2.2 this admission and is down to 1.73 today. 2. Right lower cellulitis maintained on antibiotics. 3. Proteinuria. Mostly secondary to underlying diabetic kidney disease. Further workup outpatient. 4. Diabetes mellitus. Plan: Decrease rate of normal saline to 75 mL an hour. Check renal ultrasound. Encouraged oral intake. Avoid nephrotoxins. Continue to monitor renal function and urine output. Thank you for the consultation. I will continue to follow the patient with you during his hospital stay.
[2021-01-19 11:57] LABS: Glucose,Whole Blood 309 mg/dL (75-99)
[2021-01-19] MEDS: carvediloL 12.5 MG TAB PO SCH ×2 (14:11→20:29)
--- NOTE | 2021-01-19 14:17 | PN ---
PROGRESS NOTE DATE OF SERVICE: 01/19/2021 REASON FOR FOLLOWUP: Bilateral lower extremity cellulitis. INTERVAL HISTORY: Patient is currently afebrile. Patient is breathing comfortably. Patient denies having any chest pain, shortness of breath or cough. No nausea or vomiting. No abdominal pain. Symptoms to the right leg. PHYSICAL EXAMINATION: Blood pressure 130/70 with a pulse of 90, temperature 98.5. He is 93% on room air. General description is a middle-aged male up in the bed in no distress. Respiratory system unlabored breathing. Clear to auscultation anteriorly. Heart S1-S2 regular rate and rhythm. Leg is currently wrapped up. No obvious drainage on the dressing. LABS: BUN of 32, creatinine is 1.73. Doppler was negative for DVT. DIAGNOSTIC IMPRESSION AND PLAN: Patient with right leg cellulitis, culture showing strep and MSSA. The patient is covered with cefazolin to continue on. local care as ordered. Monitor clinical course closely. MMODL / IJN: [id number] /
--- NOTE | 2021-01-19 14:26 | US ---
EXAMINATION TYPE: US kidneys/renal and bladder DATE OF EXAM: 01/19/2021 COMPARISON: NONE CLINICAL HISTORY: chavo. 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 EXAM MEASUREMENTS: Right Kidney: 10.3 x 6.2 x 4.6 cm Left Kidney: 10.1 x 5.8 x 4.9 cm Right Kidney: Limited due to body habitus Left Kidney: Limited due to body habitus Bladder: Partially distended, circumferential wall thickening could be related to under distention. Bilateral Jets seen: no There is no evidence for hydronephrosis at this point in time. No nephrolithiasis is seen. Gallbladder calculi incidentally seen. IMPRESSION: 1. Limited evaluation due to body habitus. 2. No hydronephrosis or shadowing calculi seen. 3. Urinary bladder wall thickening could be related to under distention, correlate clinically for cys titis. 4. Incidental gallbladder calculi, dedicated gallbladder ultrasound recommended.
--- NOTE | 2021-01-19 14:28 | XR ---
EXAMINATION TYPE: XR chest 1V DATE OF EXAM: 01/19/2021 COMPARISON: 10/17/2020 HISTORY: Congestive heart failure TECHNIQUE: Single frontal view of the chest is obtained. FINDINGS AND IMPRESSION: Subsegmental bibasilar atelectasis. Mild pulmonary vascular congestion: Could be cardiogenic CHF, or pulmonary edema from atypical infect ion or inflammation. No focal airspace disease, pneumothorax or pleural effusion. Cardiomediastinal silhouette within normal limit. No acute osseous abnormality.
--- NOTE | 2021-01-19 15:13 | P.PN ---
Subjective Chief Complaint: Increased swelling in his in his right lower leg Mr. Epstein is a 51-year-old male with a past medical history of asthma, coronary artery disease, COPD, DVT, GERD, hypertension, hyperlipidemia, obstructive sleep apnea, DVT in the right leg in 2010, chronic bilateral lower extremity varicose veins, peripheral vascular disease coming into the hospital with a chief complaint of swelling of his right lower extremity. He mentions that he has history of chronic bilateral lower extremity lymphedema and that he wears compression stockings on a daily basis. Patient mentions that he he saw a small bubble pop up on his right hurst that popped out and he wiped it with his hand, later on that area became red and formed a scab. Since then his right lower extremity became more red and he noticed it's more swollen and he started to have pain. Patient also mentions that he had fever at home and so came into the hospital for further evaluation. Patient denies having any nausea vomiting or diarrhea. No chest pain or palpitations. No cough or difficulty in breathing. No recent travel. No sick contacts. He denies having any headache, blurring of vision or weakness in his extremities. He denies having any joint pains or swelling. In the ER at the time of admission he had a fever of 102, tachycardic with heart rate of 107, respiratory rate 18, blood pressure 140/79 saturating at 96% on room air. He had an EKG that was showing sinus tachycardia. Reviewing his labs white count of 11, hemoglobin 13.4, platelets 170. Sodium 133, but pressure 4.2, chloride 96, bicarbonate 24, B and 29, creatinine 2.2. Lactic acid 2.5. Albumin 3.2. Urine analysis 4+ glucose, moderate leukocyte esterase and 17 wbc's. 01/19/2021 Patient redness in the left lower extremity appears to be improving patient will be continued on ceftezole and. Patient is morbidly obese probably has sleep apnea patient also saturation goes down when his sleep. I obtain a chest x-ray because of his dropping saturations it was read as possible CHF or pulmonary congestion considering his obesity his chest x-ray appears to be cut congested. Unfortunately I'm unable to open the images at this time. Patient doesn't have any clear JVD. BNP will be obtained patient will be continued on IV fluids as patient has acute renal failure appears to be prerenal azotemia from intravascular volume depletion and hydrochlorothiazide. Nephrology evaluated the patient patient will be continued on 75 mL of IV normal saline for now but if he goes into respiratory distress consider using Lasix at the time. PHYSICAL EXAMINATION: GENERAL: no acute distress. Sitting comfortably in bed obese HEENT: Pupils are round and equally reacting to light. EOMI. No scleral icterus. No conjunctival pallor. CARDIOVASCULAR: S1 and S2 present. No murmurs, rubs, or gallops. PULMONARY: Bilateral breath sounds positive. No wheeze or crackles.. ABDOMEN: Soft,non -tender, normal bowel sounds. No guarding or rigidity. MUSCULOSKELETAL: No joint swelling or deformity. - EXTREMITIES: Bilateral lower extremities chronic lymphedematous changes Right lower extremity more red swollen and warm compared to the left lower extremity. NEUROLOGICAL: Gross neurological examination did not reveal any focal deficits. SKIN: Has redness of the left lower extremity as mentioned above Assessment and Plan Assessment: Sepsis secondary to right lower extremity cellulitis and continue with ceftezolin Hypovolemic hyponatremia: IV fluids as mentioned above Acute kidney injury-secondary to #2 Lactic acidosis: Secondary to metformin and sepsis and intravascular depletion Type 2 diabetes mellitus COPD Coronary artery disease status post stenting History of DVT in the right leg in 2010 Bilateral varicose veins Peripheral vascular disease Hyperlipidemia Hypertension Obstructive sleep apnea : Hypoxemia when he sleeps History of MRSA infection Former smoker Morbid obesity with BMI of 47.4 GI DVT prophylaxis Objective - Vital Signs Vital signs: Vital Signs Temp 99.7 F H 01/19/21 13:50 Pulse 45 L 01/19/21 13:50 Resp 16 01/19/21 13:50 BP 145/81 01/19/21 13:50 Pulse Ox 94 L 01/19/21 13:50 Intake & Output 01/18/21 01/19/21 01/19/21 18:59 06:59 18:59 Intake Total 180 3470 Balance 180 3470 Intake: IV 3170 Sodium Chloride 0.9% 1, 3120 000 ml @ 130 mls/hr IV . Q7H42M [facility] Rx#:[id number] ceFAZolin 1,000 mg In 50 Sodium Chloride 0.9% 50 ml @ 100 mls/hr IVPB Q6H [facility] Rx#:[id number] Oral 180 300 Other: Voiding Method Urinal Urinal # Voids 2 1 2 # Bowel Movements 0 - Labs CBC & Chem 7: 01/18/21 05:28 01/19/21 05:33 Labs: Abnormal Lab Results - Last 24 Hours (Table) 01/18/21 01/18/21 01/19/21 Range/Units 17:07 20:05 05:33 Sodium 133 L (137-145) mmol/L BUN 32 H (9-20) mg/dL Creatinine 1.73 H (0.66-1.25) mg/dL Glucose 192 H (74-99) mg/dL POC Glucose (mg/dL) 206 H 248 H (75-99) mg/dL Calcium 7.8 L (8.4-10.2) mg/dL 01/19/21 01/19/21 Range/Units 06:47 11:55 Sodium (137-145) mmol/L BUN (9-20) mg/dL Creatinine (0.66-1.25) mg/dL Glucose (74-99) mg/dL POC Glucose (mg/dL) 213 H 309 H (75-99) mg/dL Calcium (8.4-10.2) mg/dL Microbiology - Last 24 Hours (Table) 01/18/21 08:19 Urine Culture - Final Urine,Voided 01/17/21 19:20 Gram Stain - Preliminary Leg - Right Wound Culture - Preliminary Strep agalactiae - (group b) Beta Streptococcus Group C Presumptive Staph aureus 01/17/21 19:29 Blood Culture - Preliminary Blood No Growth after 24 hours 01/17/21 19:45 Blood Culture - Preliminary Blood No Growth after 24 hours
[2021-01-19 17:01] LABS: Glucose,Whole Blood 258 mg/dL (75-99)
[2021-01-19 19:35] LABS: Glucose,Whole Blood 258 mg/dL (75-99)
[2021-01-20] MEDS: SODIUM CHLORIDE 0.9% 1,000 ML IV SCH (05:47)
[2021-01-20 06:25] LABS: African American GFR (CKD) 49 (>60 ml/min/1.73 sqM); Anion Gap 5 mmol/L; Blood Urea Nitrogen 36 mg/dL (9-20); Carbon Dioxide 23 mmol/L (22-30); Chloride 100 mmol/L (98-107); Glucose 245 mg/dL (74-99); Non-African American GFR(CKD) 43 (>60 ml/min/1.73 sqM); Potassium 3.8 mmol/L (3.5-5.1); Sodium 128 mmol/L (137-145)
[2021-01-20] MEDS: SYMBICORT 160-4.5 MCG INHALER INHALATION SCH ×2 (07:11→21:12)
[2021-01-20] MEDS: IPRATROPIUM-ALBUTEROL 3 ML NEB INHALATION PRN ×3 (07:11→21:12)
[2021-01-20 07:26] LABS: Glucose,Whole Blood 241 mg/dL (75-99)
[2021-01-20] MEDS: HEPARIN SODIUM,PORCINE/PF 5,000 UNIT/0.5 ML SYRINGE SQ SCH ×2 (07:37→16:18)
[2021-01-20] MEDS: ASPIRIN 81 MG PO SCH (07:37)
[2021-01-20] MEDS: PANTOPRAZOLE 40 MG TABLET PO SCH (07:37)
[2021-01-20] MEDS: INSULIN ASPART (NovoLOG) 100 UNIT/ML VIAL SQ SCH ×4 (07:37→21:12)
[2021-01-20] MEDS: carvediloL 12.5 MG TAB PO SCH ×2 (07:37→17:49)
[2021-01-20] MEDS: NON FORMULARY DRUG (Empagliflozin [Jardiance] 10 MG Tablet) PO SCH (07:37)
[2021-01-20] MEDS ORDERED: FUROSEMIDE 10 MG/ML 4 ML VIAL IV STA (10:23)
--- NOTE | 2021-01-20 10:24 | P.PN ---
Subjective Patient is seen in follow for acute kidney injury. Renal function is stable. Creatinine 1.8 today. Sodium level is 128. Blood sugars are high at 245. Oral intake is good. No chest pain or shortness of breath. No vomiting or diarrhea. Vital signs are stable. General: The patient appeared well nourished and normally developed. HEENT: Head exam is unremarkable. Neck is without jugular venous distension. LUNGS: Breath sounds decreased. HEART: Rate and Rhythm are regular. ABDOMEN: Soft, no distention. EXTREMITITES: No edema. Right lower extremity wrapped. No drainage. Objective - Vital Signs Vital signs: Vital Signs Temp 97.7 F 01/20/21 07:00 Pulse 76 01/20/21 07:26 Resp 18 01/20/21 07:00 BP 127/62 01/20/21 07:00 Pulse Ox 93 L 01/20/21 07:14 Intake & Output 01/19/21 01/20/21 01/20/21 18:59 06:59 18:59 Other: Voiding Method Urinal # Voids 2 2 # Bowel Movements 0 0 - Labs CBC & Chem 7: 01/18/21 05:28 01/20/21 05:35 Labs: Abnormal Lab Results - Last 24 Hours (Table) 01/19/21 01/19/21 01/19/21 Range/Units 11:55 16:59 19:33 Sodium (137-145) mmol/L BUN (9-20) mg/dL Creatinine (0.66-1.25) mg/dL Glucose (74-99) mg/dL POC Glucose (mg/dL) 309 H 258 H 258 H (75-99) mg/dL Calcium (8.4-10.2) mg/dL 01/20/21 01/20/21 Range/Units 05:35 07:14 Sodium 128 L (137-145) mmol/L BUN 36 H (9-20) mg/dL Creatinine 1.80 H (0.66-1.25) mg/dL Glucose 245 H (74-99) mg/dL POC Glucose (mg/dL) 241 H (75-99) mg/dL Calcium 8.0 L (8.4-10.2) mg/dL Microbiology - Last 24 Hours (Table) 01/17/21 19:20 Gram Stain - Final Leg - Right Wound Culture - Final Strep agalactiae - (group b) Beta Streptococcus Group C Staphylococcus aureus 01/17/21 19:29 Blood Culture - Preliminary Blood No Growth after 48 hours 01/17/21 19:45 Blood Culture - Preliminary Blood No Growth after 48 hours 01/18/21 08:19 Urine Culture - Final Urine,Voided Assessment and Plan Plan: Assessment: 1. Acute kidney injury secondary to ATN secondary to hypotension/sepsis. Crea tinine peaked at 2.2 this admission and is fairly stable at 1.8 today. No hydronephrosis noted on kidney ultrasound. 2. Right lower cellulitis maintained on antibiotics. 3. Proteinuria. Mostly secondary to underlying diabetic kidney disease. Further workup outpatient. 4. Diabetes mellitus. 5. Hyponatremia. Patient appears a little hypervolemic today. Blood sugars also on the higher side. Plan: Hep-Lock IV fluids. Lasix 40 mg IV once today. Encouraged oral intake. 1500 mL fluid restriction. Tight blood sugar control. Avoid nephrotoxins. Continue to monitor renal function and urine output.
[2021-01-20 12:02] LABS: Glucose,Whole Blood 379 mg/dL (75-99)
--- NOTE | 2021-01-20 12:36 | P.PN ---
Subjective Chief Complaint: Increased swelling in his in his right lower leg Mr. Epstein is a 51-year-old male with a past medical history of asthma, coronary artery disease, COPD, DVT, GERD, hypertension, hyperlipidemia, obstructive sleep apnea, DVT in the right leg in 2010, chronic bilateral lower extremity varicose veins, peripheral vascular disease coming into the hospital with a chief complaint of swelling of his right lower extremity. He mentions that he has history of chronic bilateral lower extremity lymphedema and that he wears compression stockings on a daily basis. Patient mentions that he he saw a small bubble pop up on his right hurst that popped out and he wiped it with his hand, later on that area became red and formed a scab. Since then his right lower extremity became more red and he noticed it's more swollen and he started to have pain. Patient also mentions that he had fever at home and so came into the hospital for further evaluation. Patient denies having any nausea vomiting or diarrhea. No chest pain or palpitations. No cough or difficulty in breathing. No recent travel. No sick contacts. He denies having any headache, blurring of vision or weakness in his extremities. He denies having any joint pains or swelling. In the ER at the time of admission he had a fever of 102, tachycardic with heart rate of 107, respiratory rate 18, blood pressure 140/79 saturating at 96% on room air. He had an EKG that was showing sinus tachycardia. Reviewing his labs white count of 11, hemoglobin 13.4, platelets 170. Sodium 133, but pressure 4.2, chloride 96, bicarbonate 24, B and 29, creatinine 2.2. Lactic acid 2.5. Albumin 3.2. Urine analysis 4+ glucose, moderate leukocyte esterase and 17 wbc's. 01/19/2021 Patient redness in the left lower extremity appears to be improving patient will be continued on ceftezole and. Patient is morbidly obese probably has sleep apnea patient also saturation goes down when his sleep. I obtain a chest x-ray because of his dropping saturations it was read as possible CHF or pulmonary congestion considering his obesity his chest x-ray appears to be cut congested. Unfortunately I'm unable to open the images at this time. Patient doesn't have any clear JVD. BNP will be obtained patient will be continued on IV fluids as patient has acute renal failure appears to be prerenal azotemia from intravascular volume depletion and hydrochlorothiazide. Nephrology evaluated the patient patient will be continued on 75 mL of IV normal saline for now but if he goes into respiratory distress consider using Lasix at the time. 01/20/2021 Patient still has significant cellulitis patient is had fevers last night. Patient may need MRSA coverage as well as the decision to infectious disease patient hyponatremia worsened volume status is worse and patient is volume overloaded with scrotal swelling patient will be started on IV Lasix IV fluids were discontinued. Patient's blood sugars are elevated, patient will be started on long-acting insulin 15 units. Constitutional: Denied any fatigue . Cardio vascular: denied any chest pain, palpitations Gastrointestinal denied any nausea vomiting Pulmonary: Denied any shortness of breath cough Neurologic denied any new focal deficits All inpatient medications were reviewed and appropriate changes in these medications as dictated in the interval history and assessment and plan. PHYSICAL EXAMINATION: GENERAL: no acute distress. Sitting comfortably in bed obese HEENT: Pupils are round and equally reacting to light. EOMI. No scleral icterus. No conjunctival pallor. CARDIOVASCULAR: S1 and S2 present. No murmurs, rubs, or gallops. PULMONARY: Bilateral breath sounds positive. No wheeze or crackles.. ABDOMEN: Soft,non -tender, normal bowel sounds. No guarding or rigidity. MUSCULOSKELETAL: No joint swelling or deformity. - EXTREMITIES: Patient has bilateral lower extremity edema with scrotal edema Right lower extremity more red swollen and warm compared to the left lower extremity. NEUROLOGICAL: Gross neurological examination did not reveal any focal deficits. SKIN: Has redness of the left lower extremity as mentioned above Assessment and Plan Assessment: Sepsis secondary to right lower extremity cellulitis and continue with ceft ezolin. Because of continued fever fever patient may need MRSA coverage will discuss with infectious disease. Hypervolemic hyponatremia IV fluids were discontinued and patient was started on Lasix Acute kidney injury-secondary to #2 Lactic acidosis: Secondary to metformin and sepsis and intravascular depletion Type 2 diabetes mellitus COPD Coronary artery disease status post stenting History of DVT in the right leg in 2010 Bilateral varicose veins Peripheral vascular disease Hyperlipidemia Hypertension Obstructive sleep apnea : Hypoxemia when he sleeps History of MRSA infection Former smoker Morbid obesity with BMI of 47.4 GI DVT prophylaxis Objective - Vital Signs Vital signs: Vital Signs Temp 97.7 F 01/20/21 07:00 Pulse 76 01/20/21 11:24 Resp 18 07/11/21 07:00 BP 127/62 01/20/21 07:00 Pulse Ox 93 L 01/20/21 07:14 Intake & Output 01/19/21 01/20/21 01/20/21 18:59 06:59 18:59 Other: Voiding Method Urinal # Voids 2 2 # Bowel Movements 0 0 - Labs CBC & Chem 7: 01/18/21 05:28 01/20/21 05:35 Labs: Abnormal Lab Results - Last 24 Hours (Table) 01/19/21 01/19/21 01/20/21 Range/Units 16:59 19:33 05:35 Sodium 128 L (137-145) mmol/L BUN 36 H (9-20) mg/dL Creatinine 1.80 H (0.66-1.25) mg/dL Glucose 245 H (74-99) mg/dL POC Glucose (mg/dL) 258 H 258 H (75-99) mg/dL Calcium 8.0 L (8.4-10.2) mg/dL 01/20/21 01/20/21 Range/Units 07:14 11:51 Sodium (137-145) mmol/L BUN (9-20) mg/dL Creatinine (0.66-1.25) mg/dL Glucose (74-99) mg/dL POC Glucose (mg/dL) 241 H 379 H (75-99) mg/dL Calcium (8.4-10.2) mg/dL Microbiology - Last 24 Hours (Table) 01/17/21 19:20 Gram Stain - Final Leg - Right Wound Culture - Final Strep agalactiae - (group b) Beta Streptococcus Group C Staphylococcus aureus 01/17/21 19:29 Blood Culture - Preliminary Blood No Growth after 48 hours 01/17/21 19:45 Blood Culture - Preliminary Blood No Growth after 48 hours 01/18/21 08:19 Urine Culture - Final Urine,Voided
[2021-01-20] MEDS: INSULIN DETEMIR (LEVEMIR) 100 UNIT/ML SYR SQ SCH (13:35)
[2021-01-20 17:15] LABS: Glucose,Whole Blood 323 mg/dL (75-99)
[2021-01-20 20:28] LABS: Glucose,Whole Blood 292 mg/dL (75-99)
[2021-01-20] MEDS: ATORVASTATIN 80 MG TAB PO SCH (21:11)
[2021-01-20] MEDS: FUROSEMIDE 10 MG/ML 4 ML VIAL IV SCH (21:11)
[2021-01-21] MEDS: HEPARIN SODIUM,PORCINE/PF 5,000 UNIT/0.5 ML SYRINGE SQ SCH ×2 (00:20→07:40)
[2021-01-21 06:01] LABS: African American GFR (CKD) 68 (>60 ml/min/1.73 sqM); Anion Gap 10 mmol/L; Blood Urea Nitrogen 34 mg/dL (9-20); Calcium 8.5 mg/dL (8.4-10.2); Carbon Dioxide 21 mmol/L (22-30); Chloride 100 mmol/L (98-107); Glucose 275 mg/dL (74-99); Non-African American GFR(CKD) 58 (>60 ml/min/1.73 sqM); Sodium 131 mmol/L (137-145)
[2021-01-21 06:18] LABS: Potassium 4.1 mmol/L (3.5-5.1)
--- NOTE | 2021-01-21 07:04 | PN ---
PROGRESS NOTE DATE OF SERVICE: 01/20/2021 REASON FOR FOLLOWUP: Right lower extremity cellulitis. INTERVAL HISTORY: Patient did have a low-grade fever early this morning. The patient afebrile since then. The patient has been feeling better. Still has significant swelling and redness in right leg. Overall pain is decreased. No chest pain, shortness of breath or cough. No abdominal pain or diarrhea. PHYSICAL EXAMINATION: Blood pressure 122/78 with a pulse of 75, temperature 98.7. He is 98% on room air. General description is a middle-aged male up in the chair in no distress. Respiratory system: Unlabored breathing, clear to auscultation anteriorly. Heart S1, S2. Regular rate and rhythm. Abdomen soft, no tenderness. Right leg swelling has minimal decreased. LABS: BUN of 26, creatinine 1.80. DIAGNOSTIC IMPRESSION AND PLAN: Patient with right lower extremity wound and secondary cellulitis. Culture with strep and MSSA. The patient is covered with cefazolin to continue for another 24 hours before transitioning him to oral antibiotic. If has persistent fever, may need to to make sure no evidence of any abscess, though clinically doubt. Continue supportive care. MMODL / IJN: [id number] /
[2021-01-21 07:10] LABS: Glucose,Whole Blood 285 mg/dL (75-99)
[2021-01-21 07:14] VITALS: BP 171/83; RESP 16; TEMP 98.9
[2021-01-21] MEDS: IPRATROPIUM-ALBUTEROL 3 ML NEB INHALATION PRN (07:28)
[2021-01-21] MEDS: SYMBICORT 160-4.5 MCG INHALER INHALATION SCH (07:28)
[2021-01-21] MEDS: INSULIN DETEMIR (LEVEMIR) 100 UNIT/ML SYR SQ SCH (07:35)
[2021-01-21] MEDS: INSULIN ASPART (NovoLOG) 100 UNIT/ML VIAL SQ SCH ×2 (07:36→12:59)
[2021-01-21] MEDS: ASPIRIN 81 MG PO SCH (07:39)
[2021-01-21] MEDS: carvediloL 12.5 MG TAB PO SCH (07:39)
[2021-01-21] MEDS: PANTOPRAZOLE 40 MG TABLET PO SCH (07:39)
[2021-01-21] MEDS: FUROSEMIDE 10 MG/ML 4 ML VIAL IV SCH (07:40)
[2021-01-21 09:58] VITALS: PULSE 75
[2021-01-21] MEDS: ACETAMINOPHEN TAB 325 MG TAB PO PRN (10:21)
[2021-01-21] MEDS: NON FORMULARY DRUG (Empagliflozin [Jardiance] 10 MG Tablet) PO SCH (11:44)
--- NOTE | 2021-01-21 11:53 | P.DS ---
Providers Date of admission: 01/17/21 20:17 Attending physician: Melanie Silverio MD Consults: 01/18/21 11:03 Consult Physician Routine Consulting Provider: Hieu Alfred Consult Reason/Comments: Cellulitis Do you want consulting provider notified?: Yes 01/18/21 16:19 Consult Physician Routine Consulting Provider: Kostas Solano Consult Reason/Comments: CHAVO Do you want consulting provider notified?: Yes Primary care physician: [facility] Hospital Course: Chief Complaint: Increased swelling in his in his right lower leg Mr. Epstein is a 51-year-old male with a past medical history of asthma, coronary artery disease, COPD, DVT, GERD, hypertension, hyperlipidemia, obstructive sleep apnea, DVT in the right leg in 2010, chronic bilateral lower extremity varicose veins, peripheral vascular disease coming into the hospital with a chief complaint of swelling of his right lower extremity. He mentions that he has history of chronic bilateral lower extremity lymphedema and that he wears compression stockings on a daily basis. Patient mentions that he he saw a small bubble pop up on his right hurst that popped out and he wiped it with his hand, later on that area became red and formed a scab. Since then his right lower extremity became more red and he noticed it's more swollen and he started to have pain. Patient also mentions that he had fever at home and so came into the hospital for further evaluation. Patient denies having any nausea vomiting or diarrhea. No chest pain or palpitations. No cough or difficulty in breathing. No recent travel. No sick contacts. He denies having any headache, blurring of vision or weakness in his extremities. He denies having any joint pains or swelling. In the ER at the time of admission he had a fever of 102, tachycardic with heart rate of 107, respiratory rate 18, blood pressure 140/79 saturating at 96% on room air. He had an EKG that was showing sinus tachycardia. Reviewing his labs white count of 11, hemoglobin 13.4, platelets 170. Sodium 133, but pressure 4.2, chloride 96, bicarbonate 24, B and 29, creatinine 2.2. Lactic acid 2.5. Albumin 3.2. Urine analysis 4+ glucose, moderate leukocyte esterase and 17 wbc's. 01/19/2021 Patient redness in the left lower extremity appears to be improving patient will be continued on ceftezole and. Patient is morbidly obese probably has sleep apnea patient also saturation goes down when his sleep. I obtain a chest x-ray because of his dropping saturations it was read as possible CHF or pulmonary congestion considering his obesity his chest x-ray appears to be cut congested. Unfortunately I'm unable to open the images at this time. Patient doesn't have any clear JVD. BNP will be obtained patient will be continued on IV fluids as patient has acute renal failure appears to be prerenal azotemia from intravascular volume depletion and hydrochlorothiazide. Nephrology evaluated the patient patient will be continued on 75 mL of IV normal saline for now but if he goes into respiratory distress consider using Lasix at the time. 01/20/2021 Patient still has significant cellulitis patient is had fevers last night. Patient may need MRSA coverage as well as the decision to infectious disease patient hyponatremia worsened volume status is worse and patient is volume overloaded with scrotal swelling patient will be started on IV Lasix IV fluids were discontinued. Patient's blood sugars are elevated, patient will be started on long-acting insulin 15 units. 01/21/2021 Patient is clinically doing well and his cellulitis rapidly improved patient's hyponatremia improved with IV Lasix. Patient creatinine improved with IV Lasix as well. Improved 1.39 close to his baseline. Patient will be discharged today on oral Lasix. Patient is volume overloaded secondary to chronic venous insufficiency in bilateral pedal edema patient doesn't have any more fevers. Patient will be discharged on 500 4 times a day of Keflex for 10 more days. Repeat basic metabolic profile was ordered, patient will get this lab tests done as an outpatient and follow with PCP closely. Hydrochlorothiazide was discontinued patient losartan will be started back. blood sugars are not well- controlled patient is not a candidate for metformin because of his renal function. Patient was started on long-acting insulin and patient will continue rest of his home regimen. PHYSICAL EXAMINATION: GENERAL: no acute distress. Sitting comfortably in bed obese HEENT: Pupils are round and equally reacting to light. EOMI. No scleral icterus. No conjunctival pallor. CARDIOVASCULAR: S1 and S2 present. No murmurs, rubs, or gallops. PULMONARY: Bilateral breath sounds positive. No wheeze or crackles.. ABDOMEN: Soft,non -tender, normal bowel sounds. No guarding or rigidity. MUSCULOSKELETAL: No joint swelling or deformity. - EXTREMITIES: Patient has bilateral lower extremity edema with scrotal edema Right lower extremity more red swollen and warm compared to the left lower extremity. NEUROLOGICAL: Gross neurological examination did not reveal any focal deficits. SKIN: Has redness of the left lower extremity as mentioned above Assessment and Plan Assessment: Sepsis secondary to right lower extremity cellulitis and continue with ceftezolin. Fevers improved patient will be discharged on ceftezole and Hypervolemic hyponatremia improved with Lasix Acute kidney injury-secondary to #2 improving now Lactic acidosis: Secondary to metformin and sepsis and intravascular depletion Type 2 diabetes mellitus COPD Coronary artery disease status post stenting History of DVT in the right leg in 2011 Bilateral varicose veins Peripheral vascular disease Hyperlipidemia Hypertension Obstructive sleep apnea : Hypoxemia when he sleeps Former smoker Morbid obesity with BMI of 47.4 Patient Condition at Discharge: Serious Plan - Discharge Summary Discharge Rx Participant: Yes New Discharge Prescriptions: New Insulin Glargine,Hum.rec.anlog [Lantus Solostar] 25 unit SQ HS #5 pen Cephalexin [Keflex] 500 mg PO Q6HR 40 Days #40 cap Furosemide [Lasix] 40 mg PO BID #60 tablet Continue Atorvastatin [Lipitor] 80 mg PO HS #30 tab Losartan Potassium [Cozaar] 100 mg PO DAILY metFORMIN HCL 1,000 mg PO BID Budesonide/Formoterol Fumarate [Symbicort 160-4.5 Mcg Inhaler] 2 puff INHALATION RT-BID Ipratropium/Albuterol Sulfate [Combivent Respimat Inhaler] 1 puff INHALATION RT-QID PRN PRN Reason: Shortness Of Breath Omeprazole 20 mg PO DAILY Empagliflozin [Jardiance] 10 mg PO DAILY Aspirin EC [Ecotrin Low Dose] 81 mg PO DAILY Bydureon Auto-Injector 2mg/0.85ml 2 mg SQ FR Nitroglycerin Sl Tabs [Nitrostat] 0.4 mg SL Q5M PRN PRN Reason: Chest Pain Carvedilol [Coreg] 25 mg PO BID Discontinued hydroCHLOROthiazide [Hydrodiuril] 25 mg PO DAILY Discharge Medication List Atorvastatin [Lipitor] 80 mg PO HS #30 tab 02/27/16 [Rx] Losartan Potassium [Cozaar] 100 mg PO DAILY 11/25/16 [History] Budesonide/Formoterol Fumarate [Symbicort 160-4.5 Mcg Inhaler] 2 puff INHALATION RT-BID 01/12/19 [History] Ipratropium/Albuterol Sulfate [Combivent Respimat Inhaler] 1 puff INHALATION RT- QID PRN 01/12/19 [History] metFORMIN HCL 1,000 mg PO BID 01/12/19 [History] Omeprazole 20 mg PO DAILY 03/14/19 [History] Aspirin EC [Ecotrin Low Dose] 81 mg PO DAILY 10/17/20 [History] Bydureon Auto-Injector 2mg/0.85ml 2 mg SQ FR 10/17/20 [History] Carvedilol [Coreg] 25 mg PO BID 10/17/20 [History] Empagliflozin [Jardiance] 10 mg PO DAILY 10/17/20 [History] Nitroglycerin Sl Tabs [Nitrostat] 0.4 mg SL Q5M PRN 10/17/20 [History] Cephalexin [Keflex] 500 mg PO Q6HR 40 Days #40 cap 01/21/21 [Rx] Furosemide [Lasix] 40 mg PO BID #60 tablet 01/21/21 [Rx] Insulin Glargine,Hum.rec.anlog [Lantus Solostar] 25 unit SQ HS #5 pen 01/21/21 [Rx] Follow up Appointment(s)/Referral(s): [facility],Clinic [Primary Care Provider] - 3 Days Ambulatory/Diagnostic Orders: Basic Metabolic Panel [LAB.AMB] Time Frame: 3 Days, Location: None Selected
[2021-01-21 12:04] LABS: Glucose,Whole Blood 387 mg/dL (75-99)
--- NOTE | 2021-01-21 17:32 | PN ---
PROGRESS NOTE Patient is seen for followup for acute kidney injury and volume overload. He is currently being diuresed. Renal function has improved. Creatinine down to 1.39 today. Overall, patient states he is feeling better. PHYSICAL EXAMINATION: On examination today, blood pressure 171/83, heart rate 66 per minute, he is afebrile. Examination of the heart S1, S2. Examination of the lungs, bilateral breath sounds are heard. Abdomen is soft, nontender, obese. Exam of lower extremities shows chronic edema. Right leg is currently wrapped. LAB: Show sodium 131, potassium 4.1, BUN 34, creatinine 1.39. ASSESSMENT: 1. Acute kidney injury secondary to acute tubular necrosis from hypotension and sepsis, significantly improved. No evidence of obstruction on ultrasound. 2. Right lower extremity cellulitis, maintained on antibiotics. 3. Most likely underlying chronic kidney disease secondary to diabetic kidney disease. Monitor as outpatient and further workup as outpatient. 4. Hyponatremia, improved with diuresis. PLAN: Continue to diurese patient as outpatient. Okay to discharge. Follow up as outpatient in about 2-4 weeks time. MMODL / IJN: [id number] /
== END 2021-01-21 14:26 | disposition home or self-care (01) | DRG 871 ==
LOC: EC 18:49 → UNDOADMOB 20:17 → 4SSUR 20:17 → 6NMEDSUR 20:17
PROVIDERS: ADMIT Internal Medicine; ATTEND Internal Medicine
DX: A41.01 Sepsis due to Methicillin susceptible Staphylococcus aureus (principal); N17.0 Acute kidney failure with tubular necrosis; L03.115 Cellulitis of right lower limb; E44.1 Mild protein-calorie malnutrition; E87.1 Hypo-osmolality and hyponatremia; E87.2 Acidosis; L03.116 Cellulitis of left lower limb; Z68.42 Body mass index [BMI] 45.0-49.9, adult; J44.9 Chronic obstructive pulmonary disease, unspecified; G47.30 Sleep apnea, unspecified; E11.22 Type 2 diabetes mellitus with diabetic chronic kidney disease; E11.51 Type 2 diabetes mellitus with diabetic peripheral angiopathy without gangrene; E66.01 Morbid (severe) obesity due to excess calories; I12.9 Hypertensive chronic kidney disease with stage 1 through stage 4 chronic kidney disease, or unspecified chronic kidney disease; E78.5 Hyperlipidemia, unspecified; E86.1 Hypovolemia; I25.10 Atherosclerotic heart disease of native coronary artery without angina pectoris; E87.70 Fluid overload, unspecified; G47.33 Obstructive sleep apnea (adult) (pediatric); I25.2 Old myocardial infarction; I83.93 Asymptomatic varicose veins of bilateral lower extremities; T38.3X5A Adverse effect of insulin and oral hypoglycemic [antidiabetic] drugs, initial encounter; I87.2 Venous insufficiency (chronic) (peripheral); I89.0 Lymphedema, not elsewhere classified; N18.9 Chronic kidney disease, unspecified; N50.89 Other specified disorders of the male genital organs; R09.02 Hypoxemia; Z79.4 Long term (current) use of insulin; Z79.51 Long term (current) use of inhaled steroids; Z79.82 Long term (current) use of aspirin; Z79.899 Other long term (current) drug therapy; Z86.14 Personal history of Methicillin resistant Staphylococcus aureus infection; Z86.718 Personal history of other venous thrombosis and embolism; Z86.74 Personal history of sudden cardiac arrest; Z87.891 Personal history of nicotine dependence; Z95.5 Presence of coronary angioplasty implant and graft; Z88.1 Allergy status to other antibiotic agents
CPT/HCPCS: 36415; 71045; 76770; 80048; 80053; 81001; 83605; 83735; 83880; 85025; 85610; 85730; 87040; 87070; 87077; 87086; 87186; 87205; 93005; 93970; 94640; 94760; 96365; 96366; 96367; 96375; 99284

== ENCOUNTER → 2021-05-21 | Outpatient (CLI) | payer OTHER ==
[2021-05-21 14:51] LABS: Basophils % (A) 0 %; Eosinophils # (A) 0.4 k/uL (0-0.7); Eosinophils % (A) 6 %; HCT 43.5 % (39.0-53.0); HGB 13.7 gm/dL (13.0-17.5); Hypochromasia Slight; Lymphocytes % (A) 15 %; MCH 28.4 pg (25.0-35.0); MCHC 31.4 g/dL (31.0-37.0); MCV 90.4 fL (80.0-100.0); Mean Platelet Volume 8.6; Monocytes # (A) 0.4 k/uL (0-1.0); Monocytes % (A) 6 %; Neutrophils # (A) 4.9 k/uL (1.3-7.7); Neutrophils % (A) 71 %; Platelet Count 222 k/uL (150-450); RBC 4.81 m/uL (4.30-5.90); RDW 14.6 % (11.5-15.5); WBC 6.9 k/uL (3.8-10.6)
[2021-05-21 15:00] LABS: African American GFR (CKD) >90 (>60 ml/min/1.73 sqM); Anion Gap 4 mmol/L; Blood Urea Nitrogen 17 mg/dL (9-20); Carbon Dioxide 29 mmol/L (22-30); Chloride 100 mmol/L (98-107); INR 0.9 (<1.2); Non-African American GFR(CKD) 85 (>60 ml/min/1.73 sqM); Potassium 4.2 mmol/L (3.5-5.1); Prothrombin Time 9.4 sec (9.0-12.0); Sodium 133 mmol/L (137-145)
== END | disposition home or self-care (01) ==
LOC: LABWHC1 14:00
PROVIDERS: ATTEND Internal Medicine Nephrology
DX: N18.31 Chronic kidney disease, stage 3a (principal)
CPT/HCPCS: 36415; 80051; 82565; 84520; 85025; 85610; 85730; 86850; 86900; 86901

== ENCOUNTER 2021-05-22 08:57 | Day surgery (SDC) | payer OTHER ==
[2021-05-22 09:20] VITALS: TEMP 98.3
[2021-05-22] MEDS ORDERED: ALPRAZolam 0.5 MG TAB PO STA (09:27)
[2021-05-22 09:52] LABS: Glucose,Whole Blood 198 mg/dL (75-99)
[2021-05-22 11:39] VITALS: BP 172/124; PULSE 77; RESP 20
== END 2021-05-22 10:55 | disposition home or self-care (01) ==
LOC: RADPROMAIN 08:57
PROVIDERS: ATTEND Internal Medicine
DX: N18.31 Chronic kidney disease, stage 3a (principal); Z53.9 Procedure and treatment not carried out, unspecified reason
CPT/HCPCS: 36415

== ENCOUNTER 2022-01-15 15:42 | Inpatient (IN) | payer OTHER ==
[2022-01-15] MEDS ORDERED: VANCOMYCIN IV PER PHARMACY 1 EACH MISC MISCELLANE PRN (17:14)
[2022-01-15] MEDS ORDERED: AMPICILLIN-SULBACTAM 3 GM in SODIUM CHLORIDE 0.9% 100 ML IVPB STA (17:16)
[2022-01-15] MEDS ORDERED: SODIUM CHLORIDE 0.9% 1,000 ML IV ONE (17:19)
--- NOTE | 2022-01-15 17:30 | XR ---
EXAMINATION TYPE: XR tibia fibula bilateral DATE OF EXAM: 01/15/2022 COMPARISON: NONE HISTORY: 01/07/2010 TECHNIQUE: 4 views FINDINGS: There is subcutaneous edema around the lower leg. Tibia and fibula appear intact. I see no fracture nor dislocation. Knee joint and ankle joint appear intact. IMPRESSION: Subcutaneous edema. No fracture.
--- NOTE | 2022-01-15 17:31 | XR ---
EXAMINATION TYPE: XR foot complete RT DATE OF EXAM: 01/15/2022 COMPARISON: NONE HISTORY: Nonhealing wounds. Swelling TECHNIQUE: 3 views FINDINGS: There is soft tissue swelling of the foot. Metatarsals are intact. I see no fracture nor di slocation. No focal bone destruction. There are no erosions. IMPRESSION: Soft tissue swelling. No fracture.
[2022-01-15] MEDS: SODIUM CHLORIDE 0.9% 1,000 ML IV SCH (18:00)
[2022-01-15] MEDS ORDERED: VANCOMYCIN 2,500 MG in SODIUM CHLORIDE 0.9% 500 ML 500 ML IVPB ONE (18:00)
[2022-01-15 18:05] LABS: Basophils # (A) 0.1 k/uL (0-0.2); Basophils % (A) 1 %; Eosinophils # (A) 0.2 k/uL (0-0.7); Eosinophils % (A) 3 %; HCT 41.3 % (39.0-53.0); HGB 13.1 gm/dL (13.0-17.5); Hypochromasia Slight; Lymphocytes # (A) 1.1 k/uL (1.0-4.8); Lymphocytes % (A) 16 %; MCH 28.3 pg (25.0-35.0); MCHC 31.7 g/dL (31.0-37.0); MCV 89.5 fL (80.0-100.0); Mean Platelet Volume 8.1; Monocytes # (A) 0.5 k/uL (0-1.0); Monocytes % (A) 7 %; Neutrophils # (A) 4.9 k/uL (1.3-7.7); Neutrophils % (A) 71 %; Platelet Count 250 k/uL (150-450); RBC 4.62 m/uL (4.30-5.90); RDW 14.8 % (11.5-15.5)
[2022-01-15 18:19] LABS: ALT 14 U/L (4-49); AST 23 U/L (17-59); African American GFR (CKD) >90 (>60 ml/min/1.73 sqM); Albumin 3.2 g/dL (3.5-5.0); Alkaline Phosphatase 73 U/L (38-126); Anion Gap 4 mmol/L; Blood Urea Nitrogen 18 mg/dL (9-20); Calcium 8.9 mg/dL (8.4-10.2); Carbon Dioxide 33 mmol/L (22-30); Chloride 99 mmol/L (98-107); Glucose 197 mg/dL (74-99); Non-African American GFR(CKD) 82 (>60 ml/min/1.73 sqM); Sodium 136 mmol/L (137-145); Total Bilirubin 0.5 mg/dL (0.2-1.3); Total Protein 6.1 g/dL (6.3-8.2)
--- NOTE | 2022-01-15 19:17 | ED ---
Extremity Problem HPI - General Chief complaint: Extremity Problem,Nontraumatic Stated complaint: cellulitis on foot Time Seen by Provider: 01/15/22 16:38 Source: patient Mode of arrival: ambulatory Limitations: no limitations - History of Present Illness Initial comments: Patient is a 52-year-old male with history of diabetes presenting with chief complaint of foot infection. Patient has had several sores on the right foot for quite a while, he states the foot goes through intermittent periods of redness and swelling. He states that over the weekend the foot was becoming increasingly red and swollen. He saw his provider at the [facility] today, who ins tructed him to report to the ER. Patient also has redness and swelling to the sores in the bilateral lower legs. He denies fever, chills, nausea, vomiting, chest pain, shortness of breath, abdominal pain, weakness, numbness, tingling, history of neuropathy. - Related Data Home Medications Medication Instructions Recorded Confirmed Losartan Potassium [Cozaar] 100 mg PO DAILY 11/25/16 01/15/22 Ipratropium/Albuterol Sulfate 1 puff INHALATION RT-QID PRN 01/12/19 01/15/22 [Combivent Respimat Inhaler] metFORMIN HCL [Glucophage] 1,000 mg PO BID 01/12/19 01/15/22 Omeprazole 20 mg PO HS 03/14/19 01/15/22 Aspirin EC [Ecotrin Low Dose] 81 mg PO DAILY 10/17/20 01/15/22 Empagliflozin [Jardiance] 20 mg PO DAILY 10/17/20 01/15/22 Nitroglycerin Sl Tabs [Nitrostat] 0.4 mg SL Q5M PRN 10/17/20 01/15/22 Albuterol Nebulized [Ventolin 2.5 mg INHALATION RT-Q4H PRN 01/15/22 01/15/22 Nebulized] Betamethasone Dipropionate 1 applic TOPICAL BID PRN 01/15/22 01/15/22 [Diprolene AF 0.05% Cream] Ergocalciferol (Vitamin D2) 1,250 mcg PO Q7D 01/15/22 01/15/22 [Drisdol (50,000 Iu)] Exenatide Microspheres [Bydureon 2 mg SQ FR 01/15/22 01/15/22 Bcise Auto-Injector] Ezetimibe [Zetia] 10 mg PO DIRECTED 01/15/22 01/15/22 Fluticasone Propion/Salmeterol 1 puff INHALATION RT-BID 01/15/22 01/15/22 [Wixela 250-50 Inhub] Furosemide [Lasix] 20 mg PO DAILY 01/15/22 01/15/22 Insulin Glargine,Hum.rec.anlog 30 unit SQ BID 01/15/22 01/15/22 [Lantus Solostar Pen] Ipratropium [place] 0.2 mg INHALATION RT-Q6H PRN 01/15/22 01/15/22 Multivitamins, Thera [Multivitamin 1 tab PO DAILY 01/15/22 01/15/22 (formulary)] carvediloL 37.5 mg PO BID-W/MEALS 01/15/22 01/15/22 hydrALAZINE HCL [Apresoline] 25 mg PO DIRECTED 01/15/22 01/15/22 Previous Rx's Medication Instructions Recorded Atorvastatin [Lipitor] 80 mg PO HS #30 tab 02/27/16 Cephalexin [Keflex] 500 mg PO Q6HR 5 Days #20 cap 01/16/22 Allergies Allergy/AdvReac Type Severity Reaction Status Date / Time tetracycline Allergy Rash/Hives Verified 01/15/22 15:53 Review of Systems ROS Statement: Those systems with pertinent positive or pertinent negative responses have been documented in the HPI. ROS Other: All systems not noted in ROS Statement are negative. Past Medical History Past Medical History: Asthma, Coronary Artery Disease (CAD), COPD, Deep Vein Thrombosis (DVT), GERD/Reflux, Hyperlipidemia, Hypertension, Myocardial Infarction ([place]), Renal Disease, Sleep Apnea/CPAP/BIPAP, Vascular Disorder Additional Past Medical History / Comment(s): 02/20/16 [place] with cardiac [id number] wore life vest for 7 weeks, 2010 DVT RIGHT leg, bilateral lower l eg cellulitis in past, bilateral varicose veins, PVD, NIDDM type II, BERTRAND with CPAP. recent UTI Mar 2021 Last Myocardial Infarction Date:: 02/20/16 History of Any Multi-Drug Resistant Organisms: MRSA Date of last positivie culture/infection: 2017 MDRO Source:: right leg Past Surgical History: Heart Catheterization With Stent Additional Past Surgical History / Comment(s): circumcision Additional Past Anesthesia/Blood Transfusion Reaction / Comment(s): Pt has never had anesthesia Date of Last Stent Placement:: 02/20/16 Past Psychological History: No Psychological Hx Reported Smoking Status: Former smoker Past Alcohol Use History: None Reported Past Drug Use History: None Reported - Past Family History Father Family Medical History: Coronary Artery Disease (CAD), Diabetes Mellitus, Eye Disorder Additional Family Medical History / Comment(s): Bradycardia, blind. Father is in his early 70's. Mother Family Medical History: Coronary Artery Disease (CAD), Diabetes Mellitus Additional Family Medical History / Comment(s): Benign brain tumor. Mother is in her early 70's General Exam Limitations: no limitations General appearance: alert, in no apparent distress Head exam: Present: atraumatic, normocephalic, normal inspection Eye exam: Present: normal appearance, EOMI. Absent: scleral icterus, periorbital swelling Neck exam: Present: normal inspection Respiratory exam: Present: normal lung sounds bilaterally. Absent: respiratory distress, wheezes, rales, rhonchi, stridor Cardiovascular Exam: Present: regular rate, normal rhythm, normal heart sounds. Absent: systolic murmur, diastolic murmur, rubs, gallop, clicks Extremities exam: Present: full ROM, tenderness, pedal edema Neurological exam: Present: alert, oriented X3, CN II-XII intact Psychiatric exam: Present: normal affect, normal mood Skin exam: Present: warm, erythema (Several ulcers to the bilateral lower extremities) Course Vital Signs 01/15/22 01/15/22 01/15/22 15:51 19:28 21:20 Temperature 98.3 F 97.8 F Pulse Rate 69 63 62 Respiratory 22 22 20 Rate Blood Pressure 164/79 174/83 185/116 O2 Sat by Pulse 95 97 95 Oximetry 01/15/22 21:56 Temperature Pulse Rate Respiratory Rate Blood Pressure 157/83 O2 Sat by Pulse Oximetry Medical Decision Making - Medical Decision Making Patient is a 52-year-old male with history of diabetes presenting with chief complaint of foot redness and swelling. Patient states that over the weekend his foot has become increasingly red and swollen in the sores to his bilateral lower extremities have been oozing purulent discharge. On examination bilateral extremities are swollen, right foot is swollen and erythematous. Lab work shows no leukocytosis x-ray shows no subcutaneous air. Patient clinically appears to have cellulitis of the foot, he will be admitted for IV antibiotics. I spoke with Dr. Coy who agreed to admit the patient. Patient is agreeable to this plan. My attending is Dr. Meneses. - Lab Data Result diagrams: 01/16/22 06:11 01/16/22 06:11 Lab Results 01/15/22 01/15/22 01/15/22 Range/Units 17:58 17:58 17:58 WBC 7.0 (3.8-10.6) k/uL RBC 4.62 (4.30-5.90) m/uL Hgb 13.1 (13.0-17.5) gm/dL Hct 41.3 (39.0-53.0) % MCV 89.5 (80.0-100.0) fL MCH 28.3 (25.0-35.0) pg MCHC 31.7 (31.0-37.0) g/dL RDW 14.8 (11.5-15.5) % Plt Count 250 (150-450) k/uL MPV 8.1 Neutrophils % 71 % Lymphocytes % 16 % Monocytes % 7 % Eosinophils % 3 % Basophils % 1 % Neutrophils # 4.9 (1.3-7.7) k/uL Lymphocytes # 1.1 (1.0-4.8) k/uL Monocytes # 0.5 (0-1.0) k/uL Eosinophils # 0.2 (0-0.7) k/uL Basophils # 0.1 (0-0.2) k/uL Hypochromasia Slight Sodium 136 L (137-145) mmol/L Potassium 4.0 (3.5-5.1) mmol/L Chloride 99 (98-107) mmol/L Carbon Dioxide 33 H (22-30) mmol/L Anion Gap 4 mmol/L BUN 18 (9-20) mg/dL Creatinine 1.05 (0.66-1.25) mg/dL Est GFR (CKD-EPI)AfAm >90 (>60 ml/min/1.73 sqM) Est GFR (CKD-EPI)NonAf 82 (>60 ml/min/1.73 sqM) Glucose 197 H (74-99) mg/dL Plasma Lactic Acid [place] 0.8 (0.7-2.0) mmol/L Calcium 8.9 (8.4-10.2) mg/dL Total Bilirubin 0.5 (0.2-1.3) mg/dL AST 23 (17-59) U/L ALT 14 (4-49) U/L Alkaline Phosphatase 73 (38-126) U/L Total Protein 6.1 L (6.3-8.2) g/dL Albumin 3.2 L (3.5-5.0) g/dL Disposition Clinical Impression: Cellulitis Disposition: ADMITTED IP TO THIS [facility] Condition: Fair Time of Disposition: 20:11 Decision to Admit Reason: Admit from EC Decision Date: 01/15/22 Decision Time: 20:11
[2022-01-15] MEDS ORDERED: NALOXONE 0.4 MG/ML 1 ML VIAL IV PRN (20:09)
[2022-01-15] MEDS ORDERED: ACETAMINOPHEN TAB 325 MG TAB PO PRN (20:09)
[2022-01-15] MEDS: carvediloL 12.5 MG TAB PO SCH ×2 (21:23→22:48)
[2022-01-15] MEDS: HEPARIN SODIUM,PORCINE/PF 5,000 UNIT/0.5 ML SYRINGE SQ SCH (23:56)
--- NOTE | 2022-01-15 23:57 | P.HPIM ---
History of Present Illness H&P Date: 01/15/22 The patient is a 52-year-old male with a PMH of type II DM, hypertension, hyperlipidemia, history of DVT, coronary artery disease, COPD, chronic lower extremity lymphedema who presents to the emergency room with complaints of bilateral lower extremity pain due to nonhealing sores. Patient reports having long-standing history of nonhealing ulcers involving both his legs, for which [facility] has [facility] He reports that over the past week however, the redness and oozing from the ulcers has worsened, and during his last visit to his doctor, he was advised to go to the emergency room. The patient denies experiencing fever or chills. Denies chest discomfort, shortness of breath, nausea, vomiting, abdominal pain, diarrhea. Reports that he has not been using any ointments and has not been able to use any compression stockings for his legs. 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 He underwent an extensive evaluation in the emergency room with bilateral tib-fib x-rays showing subacute cutaneous edema with no fractures. Foot x-ray on the right revealed soft tissue swelling without fracture. Laboratory evaluation was remarkable for glucose 197, sodium 136, and CO2 33. Of note, the patient was previously admitted to the hospital in January 2021 for predominantly right lower extremity cellulitis at which time the cultures grew pansensitive MSSA and strep. Review of systems: Pertinent positives and negatives as discussed in HPI, a complete review of systems was performed and all other systems are negative. Physical examination: General: non toxic, no distress, appears older than stated age, morbidly obese Derm: Significant chronic venous stasis changes with lymphedema involving bilateral lower extremities with involvement of his feet with extension to knees, left lower extremity skin breaks with purulent drainage throughout the legs, warm Head: atraumatic, normocephalic, symmetric Eyes: EOMI, no lid lag, anicteric sclera, pupils equal round reactive to light ENT: Nose and ears atraumatic Neck: No cervical lymphadenopathy, trachea midline, supple Mouth: no lip lesion, mucus membranes moist Cardiovascular: S1S2 reg, no murmur, positive dorsalis pedis pulse bilateral, lymphedema involving bilateral lower extremities Lungs: CTA bilateral, no rhonchi, no rales, no accessory muscle use Abdominal: soft, nontender to palpation, no guarding Ext: muscle strength 5 out of 5 in all 4 extremities grossly, no gross muscle atrophy, no contractures, Neuro: CN II-XI grossly intact, no gross focal neuro deficits Psych: Alert, oriented, appropriate affect Assessment/plan Left lower extremity cellulitis in setting of chronic lymphedema -Wound care and infectious disease consult -Obtain lower extremity Dopplers -Start patient on Kefzol -Follow up on cultures Chronic conditions: Type II DM, hypertension, hyperlipidemia, coronary artery disease, COPD -Continue with home meds -Insulin sliding scale blood glucose monitoring DVT prophylaxis -Heparin subcu The patient is admitted with an anticipated greater than 2 midnight stay for evaluation of interstitial dermatitis. CODE STATUS: Full Code Discussed with: Patient Anticipated discharge date: 01/[address]: Home Past Medical History Past Medical History: Asthma, Coronary Artery Disease (CAD), Heart Failure, COPD, Deep Vein Thrombosis (DVT), GERD/Reflux, Hyperlipidemia, Hypertension, Myocardial Infarction ([place]), Renal Disease, Sleep Apnea/CPAP/BIPAP, Vascular Disorder Additional Past Medical History / Comment(s): 02/20/16 [place] with cardiac bpkkgs-Gwiy-zz wore life vest for 7 weeks, 2010 DVT RIGHT leg, bilateral lower leg cellulitis in past, bilateral varicose veins, PVD, NIDDM type II, BERTRAND with CPAP. recent UTI Mar 2021, CHF Last Myocardial Infarction Date:: 02/20/16 History of Any Multi-Drug Resistant Organisms: MRSA Date of last positivie culture/infection: 2017 MDRO Source:: right leg Past Surgical History: Heart Catheterization With Stent Additional Past Surgical History / Comment(s): circumcision Additional Past Anesthesia/Blood Transfusion Reaction / Comment(s): Pt has never had anesthesia Date of Last Stent Placement:: 02/20/16 Past Psychological History: No Psychological Hx Reported Additional Psychological History / Comment(s): He is independent. Smoking Status: Former smoker Past Alcohol Use History: None Reported Additional Past Alcohol Use History / Comment(s): Pt states he started smoking at age 18 yrs and quit 02/20/16. Past Drug Use History: None Reported - Past Family History Father Family Medical History: Coronary Artery Disease (CAD), Diabetes Mellitus, Eye Disorder Additional Family Medical History / Comment(s): Bradycardia, blind. Father is in his early 70's. Mother Family Medical History: Coronary Artery Disease (CAD), Diabetes Mellitus Additional Family Medical History / Comment(s): Benign brain tumor. Mother is in her early 70's Medications and Allergies Home Medications Medication Instructions Recorded Confirmed Type Atorvastatin [Lipitor] 80 mg PO HS #30 tab 02/27/16 01/15/22 Rx Losartan Potassium [Cozaar] 100 mg PO DAILY 11/25/16 01/15/22 History Ipratropium/Albuterol Sulfate 1 puff INHALATION RT-QID PRN 01/12/19 01/15/22 History [Combivent Respimat Inhaler] metFORMIN HCL [Glucophage] 1,000 mg PO BID 01/12/19 01/15/22 History Omeprazole 20 mg PO HS 03/14/19 01/15/22 History Aspirin EC [Ecotrin Low Dose] 81 mg PO DAILY 10/17/20 01/15/22 History Empagliflozin [Jardiance] 20 mg PO DAILY 10/17/20 01/15/22 History Nitroglycerin Sl Tabs [Nitrostat] 0.4 mg SL Q5M PRN 10/17/20 01/15/22 History Albuterol Nebulized [Ventolin 2.5 mg INHALATION RT-Q4H PRN 01/15/22 01/15/22 History Nebulized] Betamethasone Dipropionate 1 applic TOPICAL BID PRN 01/15/22 01/15/22 History [Diprolene AF 0.05% Cream] Ergocalciferol (Vitamin D2) 1,250 mcg PO Q7D 01/15/22 01/15/22 History [Drisdol (50,000 Iu)] Exenatide Microspheres [Bydureon 2 mg SQ FR 01/15/22 01/15/22 History Bcise Auto-Injector] Ezetimibe [Zetia] 10 mg PO DIRECTED 01/15/22 01/15/22 History Fluticasone Propion/Salmeterol 1 puff INHALATION RT-BID 01/15/22 01/15/22 History [Wixela 250-50 Inhub] Furosemide [Lasix] 20 mg PO DAILY 01/15/22 01/15/22 History Insulin Glargine,Hum.rec.anlog 30 unit SQ BID 01/15/22 01/15/22 History [Lantus Solostar] Ipratropium [place] 0.2 mg INHALATION RT-Q6H PRN 01/15/22 01/15/22 History Multivitamins, Thera [Multivitamin 1 tab PO DAILY 01/15/22 01/15/22 History (formulary)] carvediloL 37.5 mg PO BID-W/MEALS 01/15/22 01/15/22 History hydrALAZINE HCL [Apresoline] 25 mg PO DIRECTED 01/15/22 01/15/22 History Allergies Allergy/AdvReac Type Severity Reaction Status Date / Time tetracycline Allergy Rash/Hives Verified 01/15/22 15:53 Physical Exam Vitals: Vital Signs Temp Pulse Pulse Resp BP BP Pulse Ox 01/15/22 22:23 98.5 F 64 20 152/90 94 L 01/15/22 21:56 157/83 01/15/22 21:20 97.8 F 62 20 185/116 95 01/15/22 19:28 63 22 174/83 97 01/15/22 15:51 98.3 F 69 22 164/79 95 Intake and Output 01/15/22 01/15/22 01/16/22 14:59 22:59 06:59 Other: Weight 165.108 kg Results CBC & Chem 7: 01/15/22 17:58 01/15/22 17:58 Labs: Abnormal Lab Results - Last 24 Hours (Table) 01/15/22 Range/Units 17:58 Sodium 136 L (137-145) mmol/L Carbon Dioxide 33 H (22-30) mmol/L Glucose 197 H (74-99) mg/dL Total Protein 6.1 L (6.3-8.2) g/dL Albumin 3.2 L (3.5-5.0) g/dL Microbiology - Last 24 Hours (Table) 01/15/22 17:58 Wound Culture - Preliminary Leg - Left Thrombosis Risk Factor Assmnt - Choose All That Apply Each Factor Represents 1 point: Abnormal pulmonary function (COPD), Age 41-60 years, Obesity (BMI >25), Swollen legs (current) Each Risk Factor Represents 3 Points: History of DVT/PE Thrombosis Risk Factor Assessment Total Risk Factor Score: 7 Thrombosis Risk Factor Assessment Level: High Risk
[2022-01-16] MEDS ORDERED: IPRATROPIUM-ALBUTEROL 3 ML NEB INHALATION PRN (00:16)
[2022-01-16] MEDS: SODIUM CHLORIDE 0.9% 1,000 ML IV SCH (04:22)
[2022-01-16] MEDS ORDERED: VANCOMYCIN 2,500 MG in SODIUM CHLORIDE 0.9% 500 ML 500 ML IVPB SCH (07:00)
[2022-01-16] MEDS: HEPARIN SODIUM,PORCINE/PF 5,000 UNIT/0.5 ML SYRINGE SQ SCH (07:41)
[2022-01-16] MEDS: carvediloL 12.5 MG TAB PO SCH (07:42)
[2022-01-16 07:50] LABS: Glucose,Whole Blood 195 mg/dL (70-110)
[2022-01-16] MEDS: INSULIN ASPART (NovoLOG) 100 UNIT/ML VIAL SQ SCH ×2 (07:51→11:32)
[2022-01-16 07:54] VITALS: BP 130/75; PULSE 66; RESP 18; TEMP 97.9
[2022-01-16] MEDS ORDERED: FUROSEMIDE 20 MG TAB PO SCH (09:00)
[2022-01-16] MEDS ORDERED: LOSARTAN 50 MG TAB PO SCH (09:00)
[2022-01-16] MEDS ORDERED: ASPIRIN 81 MG PO SCH (09:00)
[2022-01-16 10:09] LABS: Basophils # (A) 0.03 X 10*3/uL (0.00-0.10); Basophils % (A) 0.5 %; Eosinophils % (A) 3.7 %; HCT 42.2 % (39.6-50.0); HGB 12.3 g/dL (13.0-17.0); Immature Grans, Automated 0.2 %; Lymphocytes # (A) 0.91 X 10*3/uL (0.90-5.00); Lymphocytes % (A) 16.7 %; MCH 26.9 pg (27.0-32.0); MCHC 29.1 g/dL (32.0-37.0); MCV 92.1 fL (80.0-97.0); Mean Platelet Volume 11.1 fL (9.5-12.2); Monocytes # (A) 0.57 X 10*3/uL (0.20-1.00); Monocytes % (A) 10.4 %; NRBC Per 100 WBC 0 /100 WBCS (0.0-0.0); Neutrophils # (A) 3.74 X 10*3/uL (1.80-7.70); Neutrophils % (A) 68.5 %; Platelet Count 241 X 10*3/uL (140-440); RBC 4.58 X 10*6/uL (4.40-5.60); RDW 14.7 % (11.5-14.5); WBC 5.46 X 10*3/uL (4.50-10.00)
--- NOTE | 2022-01-16 10:35 | P.CONS ---
History of Present Illness - Reason for Consult Consult date: 01/16/22 wound care - History of Present Illness This is a 52-year-old gentleman with past medical history significant for coronary artery disease, COPD, DVT, hyperlipidemia, hypertension, sleep apnea, diabetes, venous insufficiency. Patient is being seen on 4 S. for nonhealing ulcerations to bilateral lower extremities. Patient has multiple open ulcerations noted to bilateral lower extremities. The left lower extremity has 4 open ulcerations to posterior ulcerations measuring approximate 1 x 6 x 0.1 cm and 0.6 x 0.5 x 0.1 cm,Left anterior ulceration measures apparently 0.4 x 0.4 x 0.1 cm, left lateral ulceration measures approximate 0.5 x 1.5 x 0.1 cm. all left lower extremity ulcerations show significant amount of slough and minimal granulation noted within the wound bed. No tunneling or undermining noted. Positive edema noted, hemosiderin staining noted. The right anterior lower extremity has a open ulceration that measures recently 1 x 2.0 x 0.1 cm. Significant amount of slough and minimal granulation noted within the wound, no tunneling or undermining noted, positive edema, hemosiderin staining noted. Review Of Systems: Constitutional: No fever, no chills, no night sweats. No weight change. No weakness, fatigue or lethargy. No daytime sleepiness. Integumentary:reports wounds, no lesions. No rash or pruritus. No unusual bruising. No change in hair or nails. Physical exam: General Appearance: Alert, cooperative, no distress, appears stated age. Skin: See HPI all other Skin color, texture, tugor normal, no rashes or lesions. Neurologic: Alert oriented x3 Assessment: 1. Chronic venous hypertension with ulceration and inflammation of bilateral lower extremities 2. Nonhealing ulceration to right lower extremity with fat layer exposure 3. Nonhealing ulceration to left lower extremity with multiple sites with fat layer exposure Plan: 1. Apply honey alginate, saline moistened gauze, dry gauze, rolled duskier 3 per day. Wrap with Bobby wrap for compression. Change Thursday. Patient would benefit from advanced wound care and outpatient setting. We'll be happy to see him in the wound care center upon discharge. Thank you for the consultation any questions please contact the wound care center. DNP note has been reviewed and discussed with Dr. Livingston and the impression and plan of care has been directed as dictated. Past Medical History Past Medical History: Asthma, Coronary Artery Disease (CAD), Heart Failure, COPD, Deep Vein Thrombosis (DVT), GERD/Reflux, Hyperlipidemia, Hypertension, Myocardial Infarction ([place]), Renal Disease, Sleep Apnea/CPAP/BIPAP, Vascular Disorder Additional Past Medical History / Comment(s): 02/20/16 [place] with cardiac fvkeiy-Agdi-es wore life vest for 7 weeks, 2010 DVT RIGHT leg, bilateral lower leg cellulitis in past, bilateral varicose veins, PVD, NIDDM type II, BERTRAND with CPAP. recent UTI Mar 2021, CHF Last Myocardial Infarction Date:: 02/20/16 History of Any Multi-Drug Resistant Organisms: MRSA Year Discovered:: 2017 MDRO Source:: right leg Past Surgical History: Heart Catheterization With Stent Additional Past Surgical History / Comment(s): circumcision Additional Past Anesthesia/Blood Transfusion Reaction / Comm: Pt has never had anesthesia Date of Last Stent Placement:: 02/20/16 Past Psychological History: No Psychological Hx Reported Additional Psychological History / Comment(s): He is independent. Smoking Status: Former smoker Past Alcohol Use History: None Reported Additional Past Alcohol Use History / Comment(s): Pt states he started smoking at age 18 yrs and quit 02/20/16. Past Drug Use History: None Reported - Past Family History Father Family Medical History: Coronary Artery Disease (CAD), Diabetes Mellitus, Eye Disorder Additional Family Medical History / Comment(s): Bradycardia, blind. Father is in his early 70's. Mother Family Medical History: Coronary Artery Disease (CAD), Diabetes Mellitus Additional Family Medical History / Comment(s): Benign brain tumor. Mother is in her early 70's Medications and Allergies Home Medications Medication Instructions Recorded Confirmed Type Atorvastatin [Lipitor] 80 mg PO HS #30 tab 02/27/16 01/15/22 Rx Losartan Potassium [Cozaar] 100 mg PO DAILY 11/25/16 01/15/22 History Ipratropium/Albuterol Sulfate 1 puff INHALATION RT-QID PRN 01/12/19 01/15/22 History [Combivent Respimat Inhaler] metFORMIN HCL [Glucophage] 1,000 mg PO BID 01/12/19 01/15/22 History Omeprazole 20 mg PO HS 03/14/19 01/15/22 History Aspirin EC [Ecotrin Low Dose] 81 mg PO DAILY 10/17/20 01/15/22 History Empagliflozin [Jardiance] 20 mg PO DAILY 10/17/20 01/15/22 History Nitroglycerin Sl Tabs [Nitrostat] 0.4 mg SL Q5M PRN 10/17/20 01/15/22 History Albuterol Nebulized [Ventolin 2.5 mg INHALATION RT-Q4H PRN 01/15/22 01/15/22 History Nebulized] Betamethasone Dipropionate 1 applic TOPICAL BID PRN 01/15/22 01/15/22 History [Diprolene AF 0.05% Cream] Ergocalciferol (Vitamin D2) 1,250 mcg PO Q7D 01/15/22 01/15/22 History [Drisdol (50,000 Iu)] Exenatide Microspheres [Bydureon 2 mg SQ FR 01/15/22 01/15/22 History Bcise Auto-Injector] Ezetimibe [Zetia] 10 mg PO DIRECTED 01/15/22 01/15/22 History Fluticasone Propion/Salmeterol 1 puff INHALATION RT-BID 01/15/22 01/15/22 History [Wixela 250-50 Inhub] Furosemide [Lasix] 20 mg PO DAILY 01/15/22 01/15/22 History Insulin Glargine,Hum.rec.anlog 30 unit SQ BID 01/15/22 01/15/22 History [Lantus Solostar] Ipratropium [place] 0.2 mg INHALATION RT-Q6H PRN 01/15/22 01/15/22 History Multivitamins, Thera [Multivitamin 1 tab PO DAILY 01/15/22 01/15/22 History (formulary)] carvediloL 37.5 mg PO BID-W/MEALS 01/15/22 01/15/22 History hydrALAZINE HCL [Apresoline] 25 mg PO DIRECTED 01/15/22 01/15/22 History Allergies Allergy/AdvReac Type Severity Reaction Status Date / Time tetracycline Allergy Rash/Hives Verified 01/15/22 15:53 Physical Exam Vitals: Vital Signs Temp Pulse Pulse Resp BP BP Pulse Ox 01/16/22 08:00 18 01/16/22 07:53 97.9 F 66 18 130/75 91 L 01/16/22 01:45 97.8 F 58 L 14 165/91 98 01/15/22 22:23 98.5 F 64 20 152/90 94 L 01/15/22 21:56 157/83 01/15/22 21:20 97.8 F 62 20 185/116 95 01/15/22 19:28 63 22 174/83 97 01/15/22 15:51 98.3 F 69 22 164/79 95 Intake and Output 01/15/22 01/16/22 01/16/22 22:59 06:59 14:59 Other: Weight 165.108 kg Results CBC & Chem 7: 01/16/22 06:11 01/15/22 17:58 Labs: Abnormal Lab Results - Last 24 Hours (Table) 01/15/22 01/16/22 01/16/22 Range/Units 17:58 06:11 07:38 Hgb 12.3 L (13.0-17.0) g/dL MCH 26.9 L (27.0-32.0) pg MCHC 29.1 L (32.0-37.0) g/dL RDW 14.7 H (11.5-14.5) % Sodium 136 L (137-145) mmol/L Carbon Dioxide 33 H (22-30) mmol/L Glucose 197 H (74-99) mg/dL POC Glucose (mg/dL) 195 H (70-110) mg/dL Total Protein 6.1 L (6.3-8.2) g/dL Albumin 3.2 L (3.5-5.0) g/dL Microbiology - Last 24 Hours (Table) 01/15/22 17:58 Wound Culture - Preliminary Leg - Left Assessment and Plan (1) Chronic venous hypertension (idiopathic) with ulcer and inflammation of bilateral lower extremity Current Visit: Yes Status: Acute Code(s): I87.333 - CHRONIC VENOUS HTN W ULCER AND INFLAM OF BILATERAL LOW EXTRM; L97.919 - NON-PRS CHRONIC ULC UNSP PRT OF R LOW LEG W UNSP SEVERITY; L97.929 - NON-PRS CHRONIC ULC UNSP PRT OF L LOW LEG W UNSP SEVERITY SNOMED Code(s): 512580438583819 (2) Non-pressure chronic ulcer of other part of right lower leg with fat layer exposed Current Visit: Yes Status: Acute Code(s): L97.812 - NON-PRS CHRONIC ULCER OTH PRT R LOW LEG W FAT LAYER EXPOSED SNOMED Code(s): 59591368 (3) Nonhealing ulcer of multiple sites of left lower extremity with fat layer exposed Current Visit: Yes Status: Acute Code(s): L97.922 - NON-PRS CHR ULC UNSP PRT OF L LOW LEG W FAT LAYER EXPOSED SNOMED Code(s): 25422718
[2022-01-16 11:16] LABS: Glucose,Whole Blood 224 mg/dL (70-110)
--- NOTE | 2022-01-16 11:24 | US ---
EXAMINATION TYPE: US venous doppler duplex LE BI DATE OF EXAM: 01/16/2022 9:07 AM COMPARISON: NONE CLINICAL HISTORY: cellulitis. cellulitis SIDE PERFORMED: Bilateral TECHNIQUE: The lower extremity deep venous system is examined utilizing real time linear array sonog raquel with graded compression, doppler sonography and color-flow sonography. VESSELS IMAGED: Common Femoral Vein Deep Femoral Vein Greater Saphenous Vein * Femoral Vein Popliteal Vein Small Saphenous Vein * Proximal Calf Veins (* superficial vessels) Right Leg: Negative for DVT Left Leg: Negative for DVT IMPRESSION: 1. Bilateral lower extremity ultrasound negative for deep venous thrombosis.
[2022-01-16 12:03] LABS: African American GFR (CKD) 115.1 (60.0-200.0); Albumin 2.9 g/dL (3.8-4.9); Albumin/Globulin Ratio 1.24 (1.60-3.17); Anion Gap 11.2 mmol/L (10.00-18.00); BUN/Creat Ratio 15.21 Ratio (12.00-20.00); Blood Urea Nitrogen 13.2 mg/dL (9.0-27.0); Calcium 8.7 mg/dL (8.7-10.3); Carbon Dioxide 26.4 mmol/L (20.0-27.5); Globulin 2.3 g/dL (1.6-3.3); Non-African American GFR(CKD) 99.3 (60.0-200.0); Potassium 3.9 mmol/L (3.5-5.5); Total Bilirubin 0.3 mg/dL (0.30-1.20); Total Protein 5.2 g/dL (6.2-8.2)
--- NOTE | 2022-01-16 13:00 | P.DS ---
Providers Date of admission: 01/15/22 20:44 Expected date of discharge: 01/16/22 Attending physician: Jose Coy MD Consults: 01/16/22 00:17 Consult Physician Urgent Consulting Provider: Hieu Alfred Consult Reason/Comments: Cellulitis Do you want consulting provider notified?: Yes Primary care physician: [facility] Course: 52-year-old male with a PMH of type II DM, hypertension, hyperlipidemia, history of DVT, coronary artery disease, COPD, chronic lower extremity lymphedema who presents to the emergency room with complaints of bilateral lower extremity pain due to nonhealing sores. Patient reports having long-standing history of nonhealing ulcers involving both his legs, for which he has been following with his doctor from the [place]. He reports that over the past week however, the redness and oozing from the ulcers has worsened, and during his last visit to his doctor, he was advised to go to the emergency room. The patient denies experiencing fever or chills. Denies chest discomfort, shortness of breath, nausea, vomiting, abdominal pain, diarrhea. Reports that he has not been using any ointments and has not been able to use any compression stockings for his legs. 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 He underwent an extensive evaluation in the emergency room with bilateral tib- fib x-rays showing subacute cutaneous edema with no fractures. Foot x-ray on the right revealed soft tissue swelling without fracture. Laboratory evaluation was remarkable for glucose 197, sodium 136, and CO2 33. Of note, the patient was previously admitted to the hospital in January 2021 for predominantly right lower extremity cellulitis at which time the cultures grew pansensitive MSSA and strep. I saw this patient this am, his wounds are barely showing any signs of infection, but due to the admitting physicians assessment i will start keflex on discharge. Wound care consulted and dressings recommendations made. Patient will be referred to wound clinic outpatient. Time for discharge 35 min Patient Condition at Discharge: Fair Plan - Discharge Summary Discharge Rx Participant: Yes New Discharge Prescriptions: New Cephalexin [Keflex] 500 mg PO Q6HR 5 Days #20 cap Continue Atorvastatin [Lipitor] 80 mg PO HS #30 tab Losartan Potassium [Cozaar] 100 mg PO DAILY metFORMIN HCL [Glucophage] 1,000 mg PO BID Ipratropium/Albuterol Sulfate [Combivent Respimat Inhaler] 1 puff INHALATION RT-QID PRN PRN Reason: Shortness Of Breath Omeprazole 20 mg PO HS Empagliflozin [Jardiance] 20 mg PO DAILY Aspirin EC [Ecotrin Low Dose] 81 mg PO DAILY Nitroglycerin Sl Tabs [Nitrostat] 0.4 mg SL Q5M PRN PRN Reason: Chest Pain Exenatide Microspheres [Bydureon Bcise Auto-Injector] 2 mg SQ FR Insulin Glargine,Hum.rec.anlog [Lantus Solostar Pen] 30 unit SQ BID Fluticasone Propion/Salmeterol [Wixela 250-50 Inhub] 1 puff INHALATION RT-BID carvediloL 37.5 mg PO BID-W/MEALS Ipratropium [place] 0.2 mg INHALATION RT-Q6H PRN PRN Reason: Shortness Of Breath Ezetimibe [Zetia] 10 mg PO DIRECTED Furosemide [Lasix] 20 mg PO DAILY Multivitamins, Thera [Multivitamin (formulary)] 1 tab PO DAILY Ergocalciferol (Vitamin D2) [Drisdol (50,000 Iu)] 1,250 mcg PO Q7D Betamethasone Dipropionate [Diprolene AF 0.05% Cream] 1 applic TOPICAL BID PRN PRN Reason: Rash Albuterol Nebulized [Ventolin Nebulized] 2.5 mg INHALATION RT-Q4H PRN PRN Reason: Shortness Of Breath hydrALAZINE HCL [Apresoline] 25 mg PO DIRECTED Discharge Medication List Atorvastatin [Lipitor] 80 mg PO HS #30 tab 02/27/16 [Rx] Losartan Potassium [Cozaar] 100 mg PO DAILY 11/25/16 [History] Ipratropium/Albuterol Sulfate [Combivent Respimat Inhaler] 1 puff INHALATION RT- QID PRN 01/12/19 [History] metFORMIN HCL [Glucophage] 1,000 mg PO BID 01/12/19 [History] Omeprazole 20 mg PO HS 03/14/19 [History] Aspirin EC [Ecotrin Low Dose] 81 mg PO DAILY 10/17/20 [History] Empagliflozin [Jardiance] 20 mg PO DAILY 10/17/20 [History] Nitroglycerin Sl Tabs [Nitrostat] 0.4 mg SL Q5M PRN 10/17/20 [History] Albuterol Nebulized [Ventolin Nebulized] 2.5 mg INHALATION RT-Q4H PRN 01/15/22 [History] Betamethasone Dipropionate [Diprolene AF 0.05% Cream] 1 applic TOPICAL BID PRN 01/15/22 [History] Ergocalciferol (Vitamin D2) [Drisdol (50,000 Iu)] 1,250 mcg PO Q7D 01/15/22 [History] Exenatide Microspheres [Bydureon Bcise Auto-Injector] 2 mg SQ FR 01/15/22 [History] Ezetimibe [Zetia] 10 mg PO DIRECTED 01/15/22 [History] Fluticasone Propion/Salmeterol [Wixela 250-50 Inhub] 1 puff INHALATION RT-BID 01/15/22 [History] Furosemide [Lasix] 20 mg PO DAILY 01/15/22 [History] Insulin Glargine,Hum.rec.anlog [Lantus Solostar Pen] 30 unit SQ BID 01/15/22 [History] Ipratropium [place] 0.2 mg INHALATION RT-Q6H PRN 01/15/22 [History] Multivitamins, Thera [Multivitamin (formulary)] 1 tab PO DAILY 01/15/22 [History] carvediloL 37.5 mg PO BID-W/MEALS 01/15/22 [History] hydrALAZINE HCL [Apresoline] 25 mg PO DIRECTED 01/15/22 [History] Cephalexin [Keflex] 500 mg PO Q6HR 5 Days #20 cap 01/16/22 [Rx] Follow up Appointment(s)/Referral(s): [facility] [NON-STAFF] - 1 Week [facility],Clinic [Primary Care Provider] - 1-2 days
[2022-01-16] MEDS ORDERED: ATORVASTATIN 80 MG TAB PO SCH (21:00)
[2022-01-16] MEDS ORDERED: PANTOPRAZOLE 40 MG TABLET PO SCH (21:00)
== END 2022-01-16 14:17 | disposition home or self-care (01) | DRG 603 ==
LOC: EC 15:42 → 4SSUR 20:44
PROVIDERS: ADMIT Internal Medicine; ATTEND Internal Medicine
DX: L03.115 Cellulitis of right lower limb (principal); I87.333 Chronic venous hypertension (idiopathic) with ulcer and inflammation of bilateral lower extremity; L97.812 Non-pressure chronic ulcer of other part of right lower leg with fat layer exposed; L97.929 Non-pressure chronic ulcer of unspecified part of left lower leg with unspecified severity; I25.10 Atherosclerotic heart disease of native coronary artery without angina pectoris; E11.51 Type 2 diabetes mellitus with diabetic peripheral angiopathy without gangrene; G47.30 Sleep apnea, unspecified; I50.9 Heart failure, unspecified; J44.9 Chronic obstructive pulmonary disease, unspecified; I87.2 Venous insufficiency (chronic) (peripheral); E78.5 Hyperlipidemia, unspecified; B95.1 Streptococcus, group B, as the cause of diseases classified elsewhere; I11.0 Hypertensive heart disease with heart failure; K21.9 Gastro-esophageal reflux disease without esophagitis; I87.8 Other specified disorders of veins; G47.33 Obstructive sleep apnea (adult) (pediatric); I25.2 Old myocardial infarction; Z79.82 Long term (current) use of aspirin; Z79.84 Long term (current) use of oral hypoglycemic drugs; Z79.899 Other long term (current) drug therapy; Z82.1 Family history of blindness and visual loss; Z82.49 Family history of ischemic heart disease and other diseases of the circulatory system; Z83.3 Family history of diabetes mellitus; Z86.718 Personal history of other venous thrombosis and embolism; Z86.74 Personal history of sudden cardiac arrest; Z87.891 Personal history of nicotine dependence; Z88.1 Allergy status to other antibiotic agents; Z79.01 Long term (current) use of anticoagulants; Z86.14 Personal history of Methicillin resistant Staphylococcus aureus infection; Z79.4 Long term (current) use of insulin
CPT/HCPCS: 36415; 80053; 83605; 85025; 87040; 87070; 87205; 93970; 96361; 96365; 96366; 96367; 99284

== ENCOUNTER 2022-03-24 11:50 | Inpatient (IN) | payer OTHER ==
--- NOTE | 2022-03-24 14:44 | XR ---
EXAMINATION TYPE: XR foot complete LT DATE OF EXAM: 03/24/2022 2:39 PM INDICATION: Patient age:Male; 52 years old; Reason for study: Worsening pain with infection; PHH. COMPARISON: None TECHNIQUE: The left foot was examined in the AP, oblique, and lateral projections. FINDINGS: No evidence of any acute osseous pathology. Joints are preserved. No osseous erosions. No radiopaque foreign bodies. Marked dorsal midfoot soft tissue swelling. IMPRESSION: 1. No evidence of acute fracture or osseous erosion. 2. Marked dorsal midfoot soft tissue swelling.
[2022-03-24] MEDS ORDERED: SODIUM CHLORIDE 0.9% 1,000 ML IV STA (15:00)
[2022-03-24] MEDS ORDERED: HYDROmorphone 0.5 MG/0.5 ML SYRINGE IVP STA (15:00)
[2022-03-24 15:21] LABS: Basophils # (A) 0.1 k/uL (0-0.2); Basophils % (A) 1 %; Eosinophils # (A) 0.1 k/uL (0-0.7); Eosinophils % (A) 1 %; HCT 47.4 % (39.0-53.0); HGB 15.3 gm/dL (13.0-17.5); Lymphocytes # (A) 0.6 k/uL (1.0-4.8); Lymphocytes % (A) 3 %; MCH 27.9 pg (25.0-35.0); MCHC 32.3 g/dL (31.0-37.0); MCV 86.4 fL (80.0-100.0); Mean Platelet Volume 8.5; Monocytes # (A) 0.6 k/uL (0-1.0); Monocytes % (A) 4 %; Neutrophils # (A) 15.4 k/uL (1.3-7.7); Neutrophils % (A) 91 %; Platelet Count 197 k/uL (150-450); RBC 5.49 m/uL (4.30-5.90); RDW 15.6 % (11.5-15.5); WBC 16.9 k/uL (3.8-10.6)
--- NOTE | 2022-03-24 16:11 | ED ---
Extremity Problem HPI - General Chief complaint: Extremity Problem,Nontraumatic Stated complaint: Fever Time Seen by Provider: 03/24/22 14:22 Source: patient, RN notes reviewed Mode of arrival: wheelchair Limitations: no limitations - History of Present Illness Initial comments: This is a 52-year-old male who presents to the emergency department for left foot pain and redness. He was sent over by the wound clinic where he is currently being treated for cellulitis and poorly healing wounds. He was sent over due to the fever and increasing pain and redness, which he states started yesterday. He does have a history of becoming septic from episodes of cellulitis. He is not taking anything for the pain. Denies any chills, sore throat, cough, dyspnea, chest pain, palpitations, abdominal pain, nausea, vomiting, diarrhea, back pain, or headaches. MD Complaint: extremity pain, extremity swelling Onset/Timin -: days(s) Location: left, lower extremity Associated Symptoms: fever - Related Data Home Medications Medication Instructions Recorded Confirmed Losartan Potassium [Cozaar] 100 mg PO DAILY 11/25/16 01/15/22 Ipratropium/Albuterol Sulfate 1 puff INHALATION RT-QID PRN 01/12/19 01/15/22 [Combivent Respimat Inhaler] metFORMIN HCL [Glucophage] 1,000 mg PO BID 01/12/19 01/15/22 Omeprazole 20 mg PO HS 03/14/19 01/15/22 Aspirin EC [Ecotrin Low Dose] 81 mg PO DAILY 10/17/20 01/15/22 Empagliflozin [Jardiance] 20 mg PO DAILY 10/17/20 01/15/22 Nitroglycerin Sl Tabs [Nitrostat] 0.4 mg SL Q5M PRN 10/17/20 01/15/22 Albuterol Nebulized [Ventolin 2.5 mg INHALATION RT-Q4H PRN 01/15/22 01/15/22 Nebulized] Betamethasone Dipropionate 1 applic TOPICAL BID PRN 01/15/22 01/15/22 [Diprolene AF 0.05% Cream] Ergocalciferol (Vitamin D2) 1,250 mcg PO Q7D 01/15/22 01/15/22 [Drisdol (50,000 Iu)] Exenatide Microspheres [Bydureon 2 mg SQ FR 01/15/22 01/15/22 Bcise Auto-Injector] Ezetimibe [Zetia] 10 mg PO DIRECTED 01/15/22 01/15/22 Fluticasone Propion/Salmeterol 1 puff INHALATION RT-BID 01/15/22 01/15/22 [Wixela 250-50 Inhub] Furosemide [Lasix] 20 mg PO DAILY 01/15/22 01/15/22 Insulin Glargine,Hum.rec.anlog 30 unit SQ BID 01/15/22 01/15/22 [Lantus Solostar Pen] Ipratropium [place] 0.2 mg INHALATION RT-Q6H PRN 01/15/22 01/15/22 Multivitamins, Thera [Multivitamin 1 tab PO DAILY 01/15/22 01/15/22 (formulary)] carvediloL 37.5 mg PO BID-W/MEALS 01/15/22 01/15/22 hydrALAZINE HCL [Apresoline] 25 mg PO DIRECTED 01/15/22 01/15/22 Previous Rx's Medication Instructions Recorded Atorvastatin [Lipitor] 80 mg PO HS #30 tab 02/27/16 Cephalexin [Keflex] 500 mg PO Q6HR 5 Days #20 cap 01/16/22 Allergies Allergy/AdvReac Type Severity Reaction Status Date / Time tetracycline Allergy Rash/Hives Verified 03/24/22 12:12 Review of Systems ROS Statement: Those systems with pertinent positive or pertinent negative responses have been documented in the HPI. ROS Other: All systems not noted in ROS Statement are negative. Past Medical History Past Medical History: Asthma, Coronary Artery Disease (CAD), COPD, Deep Vein T hrombosis (DVT), GERD/Reflux, Hyperlipidemia, Hypertension, Myocardial Infarction ([place]), Renal Disease, Sleep Apnea/CPAP/BIPAP, Vascular Disorder Additional Past Medical History / Comment(s): 02/20/16 [place] with cardiac [id number] wore life vest for 7 weeks, 2010 DVT RIGHT leg, bilateral lower leg cellulitis in past, bilateral varicose veins, PVD, NIDDM type II, BERTRAND with CPAP. recent UTI Mar 2021 Last Myocardial Infarction Date:: 02/20/16 History of Any Multi-Drug Resistant Organisms: MRSA Date of last positivie culture/infection: 2017 MDRO Source:: right leg Past Surgical History: Heart Catheterization With Stent Additional Past Surgical History / Comment(s): circumcision Additional Past Anesthesia/Blood Transfusion Reaction / Comment(s): Pt has never had anesthesia Date of Last Stent Placement:: 02/20/16 Past Psychological History: No Psychological Hx Reported Smoking Status: Former smoker Past Alcohol Use History: None Reported Past Drug Use History: None Reported - Past Family History Father Family Medical History: Coronary Artery Disease (CAD), Diabetes Mellitus, Eye Disorder Additional Family Medical History / Comment(s): Bradycardia, blind. Father is in his early 70's. Mother Family Medical History: Coronary Artery Disease (CAD), Diabetes Mellitus Additional Family Medical History / Comment(s): Benign brain tumor. Mother is in her early 70's General Exam Limitations: no limitations General appearance: alert, in no apparent distress Head exam: Present: atraumatic, normocephalic, normal inspection Respiratory exam: Present: normal lung sounds bilaterally. Absent: respiratory distress, wheezes, rales, rhonchi, stridor Cardiovascular Exam: Present: regular rate, normal rhythm, normal heart sounds. Absent: systolic murmur, diastolic murmur, rubs, gallop, clicks Extremities exam: Present: other (Swelling, erythema, and tenderness over the dorsal aspect of the left foot.) Neurological exam: Present: alert, oriented X3, CN II-XII intact Psychiatric exam: Present: normal affect, normal mood Course Vital Signs 03/24/22 12:10 Temperature 100.4 F H Pulse Rate 91 Respiratory 19 Rate Blood Pressure 132/82 O2 Sat by Pulse 94 L Oximetry Medical Decision Making - Medical Decision Making This is a 52-year-old male who presents to the emergency department for left foot pain and redness. CBC reveals leukocytosis. X-ray reveals marked swelling of the dorsal midfoot. Additionally, the patient has an elevated lactic acid of 2.5, ESR of 58, and CRP of 16.1. Patient meets sepsis criteria and will be admitted for sepsis secondary to cellulitis. Tylenol was administered for the patient's elevated temperature. Blood cultures obtained and the patient was started on IV vancomycin and cefepime. This case was discussed in detail with the attending ED physician. Presentation, findings, and treatment plan discussed in detail as well. - Lab Data Result diagrams: 03/24/22 15:00 03/24/22 15:09 Lab Results 03/24/22 03/24/22 03/24/22 Range/Units 15:00 15:09 15:09 WBC 16.9 H (3.8-10.6) k/uL RBC 5.49 (4.30-5.90) m/uL Hgb 15.3 (13.0-17.5) gm/dL Hct 47.4 (39.0-53.0) % MCV 86.4 (80.0-100.0) fL MCH 27.9 (25.0-35.0) pg MCHC 32.3 (31.0-37.0) g/dL RDW 15.6 H (11.5-15.5) % Plt Count 197 (150-450) k/uL MPV 8.5 Neutrophils % 91 % Lymphocytes % 3 % Monocytes % 4 % Eosinophils % 1 % Basophils % 1 % Neutrophils # 15.4 H (1.3-7.7) k/uL Lymphocytes # 0.6 L (1.0-4.8) k/uL Monocytes # 0.6 (0-1.0) k/uL Eosinophils # 0.1 (0-0.7) k/uL Basophils # 0.1 (0-0.2) k/uL ESR 58 H (0-15) mm/hr Sodium 130 L (137-145) mmol/L Potassium 4.3 (3.5-5.1) mmol/L Chloride 94 L (98-107) mmol/L Carbon Dioxide 23 (22-30) mmol/L Anion Gap 13 mmol/L BUN 15 (9-20) mg/dL Creatinine 1.26 H (0.66-1.25) mg/dL Est GFR (CKD-EPI)AfAm 75 (>60 ml/min/1.73 sqM) Est GFR (CKD-EPI)NonAf 65 (>60 ml/min/1.73 sqM) Glucose 226 H (74-99) mg/dL Plasma Lactic Acid [place] 2.5 H* (0.7-2.0) mmol/L Calcium 8.7 (8.4-10.2) mg/dL Total Bilirubin 2.2 H (0.2-1.3) mg/dL AST 31 (17-59) U/L ALT 20 (4-49) U/L Alkaline Phosphatase 82 (38-126) U/L C-Reactive Protein 16.1 H (<1.0) mg/dL Total Protein 5.9 L (6.3-8.2) g/dL Albumin 3.1 L (3.5-5.0) g/dL - Radiology Data Radiology results: report reviewed, image reviewed Disposition Clinical Impression: Sepsis due to cellulitis Disposition: ADMITTED IP TO THIS [facility] Referrals: [facility],Clinic [Primary Care Provider] - 1-2 days
[2022-03-24] MEDS ORDERED: ACETAMINOPHEN TAB 500 MG TAB PO STA (16:12)
[2022-03-24 16:14] LABS: Erythrocyte Sedimentation Rate 58 mm/hr (0-15)
[2022-03-24 16:14] LABS: Albumin 3.1 g/dL (3.5-5.0); Calcium 8.7 mg/dL (8.4-10.2); Potassium 4.3 mmol/L (3.5-5.1); Total Bilirubin 2.2 mg/dL (0.2-1.3); Total Protein 5.9 g/dL (6.3-8.2)
[2022-03-24 16:25] LABS: C Reactive Protein 16.1 mg/dL (<1.0)
[2022-03-24] MEDS ORDERED: VANCOMYCIN IV PER PHARMACY 1 EACH MISC MISCELLANE PRN ×2 (16:49→21:55)
[2022-03-24] MEDS ORDERED: CEFEPIME 2 GM in SODIUM CHLORIDE 0.9% 100 ML IVPB ONE (17:00)
[2022-03-24] MEDS ORDERED: ONDANSETRON 4 MG/2 ML VIAL IVP PRN (17:24)
[2022-03-24] MEDS ORDERED: HYDROcodone/APAP 5-325MG 1 EACH TAB PO PRN (17:24)
[2022-03-24] MEDS ORDERED: NALOXONE 0.4 MG/ML 1 ML VIAL IV PRN (17:24)
[2022-03-24] MEDS ORDERED: ACETAMINOPHEN TAB 325 MG TAB PO PRN (17:24)
[2022-03-24] MEDS ORDERED: HYDROcodone/APAP 10-325MG 1 EACH TAB PO PRN (17:27)
[2022-03-24] MEDS ORDERED: VANCOMYCIN 2,500 MG in SODIUM CHLORIDE 0.9% 500 ML 500 ML IVPB ONE (18:00)
[2022-03-24 18:30] LABS: Partial Thromboplastin Time 25.1 sec (22.0-30.0); Prothrombin Time 10.8 sec (9.0-12.0)
[2022-03-24] MEDS: carvediloL 12.5 MG TAB PO SCH (20:19)
--- NOTE | 2022-03-24 21:56 | P.HPIM ---
History of Present Illness H&P Date: 03/24/22 The patient is a 52-year-old male with a PMH of type II DM, coronary artery disease, COPD, history of DVT, peripheral vascular disease, and chronic lower extremity edema who was sent to the emergency room from wound care clinic. The patient had resented to the clinic earlier today for a scheduled appointment for his nonhealing ulcers on both lower extremities. The patient was noted to have worsening erythema of his legs and was noted to be febrile. In the emergency room upon presentation, the patient's temperature was 100.4F. Laboratory evaluation was remarkable for leukocytosis of 16.9, lactic acid 2.5, CRP 16.1, glucose 226, creatinine 1.6, and ESR 58. At time of interview, the patient reported mild bilateral lower extremity pain, rated a 1 out of 10. Denied experiencing chest discomfort, shortness of breath, abdominal pain, nausea, vomiting, diarrhea. Right foot x-ray revealed midfoot soft tissue swelling. Review of systems: Pertinent positives and negatives as discussed in HPI, a complete review of systems was performed and all other systems are negative. Physical examination: General: Disheveled, no distress, appears older than stated age, morbidly obese Derm: Bilateral lower extremity venous stasis changes noted with erythema, warm Head: atraumatic, normocephalic, symmetric Eyes: EOMI, no lid lag, anicteric sclera, pupils equal round reactive to light ENT: Nose and ears atraumatic Neck: No cervical lymphadenopathy, trachea midline, supple Mouth: no lip lesion, mucus membranes moist Cardiovascular: S1S2 reg, no murmur, positive dorsalis pedis pulse bilateral, 2+ bilateral lower extremity pitting edema Lungs: CTA bilateral, no rhonchi, no rales, no accessory muscle use Abdominal: soft, nontender to palpation, no guarding Ext: muscle strength 5 out of 5 in all 4 extremities grossly, no gross muscle atrophy, no contractures, bilateral lower extremity dressings in place with underlying erythema and induration noted Neuro: CN II-XI grossly intact, no gross focal neuro deficits Psych: Alert, oriented, appropriate affect Assessment/plan Sepsis secondary to bilateral lower extremity cellulitis -Continue with broad-spectrum antibiotics including vancomycin and cefepime at this time -Wound care consult -IV fluids -Follow up cultures Lactic acidosis -Continue with IV fluids -Monitor for resolution Acute kidney injury -Continue IV fluids -Monitor BMP Chronic conditions: Type II DM, hypertension, hyperlipidemia, coronary artery disease -Insulin sliding scale blood glucose monitoring -Levemir 20 units daily at bedtime -Continue with home medications DVT prophylaxis -Heparin subq The patient is admitted with an anticipated greater than 2 midnight stay for evaluation of cellulitis CODE STATUS: Full Code Discussed with: Patient Anticipated discharge date: 03/[address]: Home Past Medical History Past Medical History: Asthma, Coronary Artery Disease (CAD), COPD, Deep Vein Thrombosis (DVT), GERD/Reflux, Hyperlipidemia, Hypertension, Myocardial Infarction ([place]), Renal Disease, Sleep Apnea/CPAP/BIPAP, Vascular Disorder Additional Past Medical History / Comment(s): 02/20/16 [place] with cardiac [id number] wore life vest for 7 weeks, 2010 DVT RIGHT leg, bilateral lower leg cellulitis in past, bilateral varicose veins, PVD, NIDDM type II, BERTRAND with CPAP. recent UTI Mar 2021 Last Myocardial Infarction Date:: 02/20/16 History of Any Multi-Drug Resistant Organisms: MRSA Date of last positivie culture/infection: 2017 MDRO Source:: right leg Past Surgical History: Heart Catheterization With Stent Additional Past Surgical History / Comment(s): circumcision Additional Past Anesthesia/Blood Transfusion Reaction / Comment(s): Pt has never had anesthesia Date of Last Stent Placement:: 02/20/16 Past Psychological History: No Psychological Hx Reported Smoking Status: Former smoker Past Alcohol Use History: None Reported Past Drug Use History: None Reported - Past Family History Father Family Medical History: Coronary Artery Disease (CAD), Diabetes Mellitus, Eye Disorder Additional Family Medical History / Comment(s): Bradycardia, blind. Father is in his early 70's. Mother Family Medical History: Coronary Artery Disease (CAD), Diabetes Mellitus Additional Family Medical History / Comment(s): Benign brain tumor. Mother is in her early 70's Medications and Allergies Home Medications Medication Instructions Recorded Confirmed Type Atorvastatin [Lipitor] 80 mg PO HS #30 tab 02/27/16 03/24/22 Rx Losartan Potassium [Cozaar] 100 mg PO DAILY 11/25/16 03/24/22 History Ipratropium/Albuterol Sulfate 1 puff INHALATION RT-QID PRN 01/12/19 03/24/22 History [Combivent Respimat Inhaler] metFORMIN HCL [Glucophage] 1,000 mg PO BID 01/12/19 03/24/22 History Omeprazole 20 mg PO HS 03/14/19 03/24/22 History Aspirin EC [Ecotrin Low Dose] 81 mg PO DAILY 10/17/20 03/24/22 History Empagliflozin [Jardiance] 20 mg PO DAILY 10/17/20 03/24/22 History Nitroglycerin Sl Tabs [Nitrostat] 0.4 mg SL Q5M PRN 10/17/20 03/24/22 History Albuterol Nebulized [Ventolin 2.5 mg INHALATION RT-Q4H PRN 01/15/22 03/24/22 History Nebulized] Betamethasone Dipropionate 1 applic TOPICAL BID PRN 01/15/22 03/24/22 History [Diprolene AF 0.05% Cream] Exenatide Microspheres [Bydureon 2 mg SQ FR 01/15/22 03/24/22 History Bcise Auto-Injector] Ezetimibe [Zetia] 10 mg PO DIRECTED 01/15/22 03/24/22 History Fluticasone Propion/Salmeterol 1 puff INHALATION RT-BID 01/15/22 03/24/22 History [Wixela 250-50 Inhub] Furosemide [Lasix] 40 mg PO BID PRN 01/15/22 03/24/22 History Insulin Glargine,Hum.rec.anlog 30 unit SQ BID 01/15/22 03/24/22 History [Lantus Solostar Pen] Ipratropium [place] 0.2 mg INHALATION RT-Q6H PRN 01/15/22 03/24/22 History Multivitamins, Thera [Multivitamin 1 tab PO DAILY 01/15/22 03/24/22 History (formulary)] carvediloL 37.5 mg PO BID-W/MEALS 01/15/22 03/24/22 History hydrALAZINE HCL [Apresoline] 25 mg PO DIRECTED 01/15/22 03/24/22 History Albuterol Inhaler [Ventolin Hfa 1 - 2 puff INHALATION RT-Q6H PRN 03/24/22 03/24/22 History Inhaler] Allergies Allergy/AdvReac Type Severity Reaction Status Date / Time tetracycline Allergy Rash/Hives Verified 03/24/22 18:22 Physical Exam Vitals: Vital Signs Temp Pulse Resp BP Pulse Ox 03/24/22 19:37 92 L 03/24/22 19:00 72 20 104/60 03/24/22 12:10 100.4 F H 91 19 132/82 94 L Intake and Output 03/24/22 03/24/22 03/24/22 06:59 14:59 22:59 Other: Weight 165.561 kg Results CBC & Chem 7: 03/24/22 15:00 03/24/22 15:09 Labs: Abnormal Lab Results - Last 24 Hours (Table) 03/24/22 03/24/22 03/24/22 Range/Units 15:00 15:09 15:09 WBC 16.9 H (3.8-10.6) k/uL RDW 15.6 H (11.5-15.5) % Neutrophils # 15.4 H (1.3-7.7) k/uL Lymphocytes # 0.6 L (1.0-4.8) k/uL ESR 58 H (0-15) mm/hr Sodium 130 L (137-145) mmol/L Chloride 94 L (98-107) mmol/L Creatinine 1.26 H (0.66-1.25) mg/dL Glucose 226 H (74-99) mg/dL Plasma Lactic Acid Kannan 2.5 H* (0.7-2.0) mmol/L Total Bilirubin 2.2 H (0.2-1.3) mg/dL C-Reactive Protein 16.1 H (<1.0) mg/dL Total Protein 5.9 L (6.3-8.2) g/dL Albumin 3.1 L (3.5-5.0) g/dL
[2022-03-24] MEDS ORDERED: FUROSEMIDE 40 MG TAB PO PRN (22:30)
[2022-03-24 22:37] LABS: Glucose,Whole Blood 280 mg/dL (70-110)
[2022-03-24] MEDS: INSULIN DETEMIR (LEVEMIR) 100 UNIT/ML SYR SQ SCH (22:40)
[2022-03-24] MEDS: ATORVASTATIN 80 MG TAB PO SCH (22:41)
[2022-03-24] MEDS: PANTOPRAZOLE 40 MG TABLET PO SCH (22:41)
[2022-03-24] MEDS: SODIUM CHLORIDE 0.9% 1,000 ML IV SCH (23:00)
[2022-03-24] MEDS: CEFEPIME 2 GM in SODIUM CHLORIDE 0.9% 100 ML IVPB SCH (23:11)
[2022-03-24] MEDS: hydrALAZINE HCL 25 MG TAB PO SCH (23:42)
[2022-03-24] MEDS: HEPARIN SODIUM,PORCINE/PF 5,000 UNIT/0.5 ML SYRINGE SQ SCH (23:42)
[2022-03-25] MEDS: CEFEPIME 2 GM in SODIUM CHLORIDE 0.9% 100 ML IVPB SCH ×4 (01:13→23:57)
[2022-03-25] MEDS: SODIUM CHLORIDE 0.9% 1,000 ML IV SCH ×2 (05:59→16:11)
[2022-03-25] MEDS ORDERED: VANCOMYCIN 2,500 MG in SODIUM CHLORIDE 0.9% 500 ML 500 ML IVPB SCH ×2 (06:00→08:00)
[2022-03-25] MEDS: SYMBICORT 80-4.5 MCG INHALER INHALATION SCH ×3 (06:16→19:37)
[2022-03-25 07:12] LABS: Glucose,Whole Blood 186 mg/dL (70-110)
[2022-03-25] MEDS: HEPARIN SODIUM,PORCINE/PF 5,000 UNIT/0.5 ML SYRINGE SQ SCH ×3 (08:16→23:57)
[2022-03-25] MEDS: INSULIN ASPART (NovoLOG) 100 UNIT/ML VIAL SQ SCH ×4 (08:17→21:54)
[2022-03-25] MEDS: hydrALAZINE HCL 25 MG TAB PO SCH ×3 (08:17→21:54)
[2022-03-25] MEDS: carvediloL 12.5 MG TAB PO SCH ×2 (08:17→18:00)
[2022-03-25] MEDS: LOSARTAN 50 MG TAB PO SCH (08:17)
[2022-03-25] MEDS: ASPIRIN 81 MG PO SCH (08:17)
--- NOTE | 2022-03-25 08:49 | P.CONS ---
History of Present Illness - Reason for Consult Consult date: 03/25/22 wound care - History of Present Illness This is a 52-year-old patient known to the wound care center who was seen yesterday and wound care presenting with fever and redness to the left dorsal foot. Patient ulceration reopened compared to last week. Patient states that he is feeling poorly complaining of fatigue and nausea. Patient's left lower extremity has 2 ulcerations with fat layer exposed. Minimal sloughing gran ulation noted within the wound bed and under 90 noted. the left dorsal foot is tender to palpation warm to touch and erythema noted. the right lower extremity has 1 open ulceration with fat layer exposed with granulation seen throughout the wound bed minimal slough no tunneling or undermining noted. Patient's past medical history significant for venous insufficiency. Review Of Systems: Constitutional: No fever, no chills, no night sweats. No weight change. No weakness, fatigue or lethargy. No daytime sleepiness. Integumentary:reports wounds, no lesions. No rash or pruritus. No unusual bruising. No change in hair or nails. Physical exam: General Appearance: Alert, cooperative, no distress, appears stated age. Skin: See HPI all other Skin color, texture, tugor normal, no rashes or lesions. Neurologic: Alert oriented x3 Assessment: 1. Chronic venous hypertension with ulceration and inflammation of bilateral lower extremities 2. 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 Nonpressure chronic ulcer of right calf with fat layer exposed Plan: 1. Apply collagen silver, saline moistened gauze, dry gauze, rolled gauze and secure with paper tape. Wrap with Bobby wrap or Tubigrip. Change Thursday. Patient's next appointment in the wound care center is March 30 at 9:15 Thank you for the consultation any questions please contact the wound care center DNP note has been reviewed and discussed with Dr. Livingston and the impression and plan of care has been directed as dictated. Past Medical History Past Medical History: Asthma, Coronary Artery Disease (CAD), COPD, Deep Vein Thrombosis (DVT), GERD/Reflux, Hyperlipidemia, Hypertension, Myocardial Infarction ([place]), Renal Disease, Sleep Apnea/CPAP/BIPAP, Vascular Disorder Additional Past Medical History / Comment(s): 02/20/16 [place] with cardiac [id number]-[id number] wore life vest for 7 weeks, 2010 DVT RIGHT leg, bilateral lower leg cellulitis in past, bilateral varicose veins, PVD, NIDDM type II, BERTRAND with CPAP. recent UTI Mar 2021 Last Myocardial Infarction Date:: 02/20/16 History of Any Multi-Drug Resistant Organisms: MRSA Year Discovered:: 2017 MDRO Source:: right leg Past Surgical History: Heart Catheterization With Stent Additional Past Surgical History / Comment(s): circumcision Additional Past Anesthesia/Blood Transfusion Reaction / Comm: Pt has never had anesthesia Date of Last Stent Placement:: 02/20/16 Past Psychological History: No Psychological Hx Reported Smoking Status: Former smoker Past Alcohol Use History: None Reported Past Drug Use History: None Reported - Past Family History Father Family Medical History: Coronary Artery Disease (CAD), Diabetes Mellitus, Eye Disorder Additional Family Medical History / Comment(s): Bradycardia, blind. Father is in his early 70's. Mother Family Medical History: Coronary Artery Disease (CAD), Diabetes Mellitus Additional Family Medical History / Comment(s): Benign brain tumor. Mother is in her early 70's Medications and Allergies Home Medications Medication Instructions Recorded Confirmed Type Atorvastatin [Lipitor] 80 mg PO HS #30 tab 02/27/16 03/24/22 Rx Losartan Potassium [Cozaar] 100 mg PO DAILY 11/25/16 03/24/22 History Ipratropium/Albuterol Sulfate 1 puff INHALATION RT-QID PRN 01/12/19 03/24/22 History [Combivent Respimat Inhaler] metFORMIN HCL [Glucophage] 1,000 mg PO BID 01/12/19 03/24/22 History Omeprazole 20 mg PO HS 03/14/19 03/24/22 History Aspirin EC [Ecotrin Low Dose] 81 mg PO DAILY 10/17/20 03/24/22 History Empagliflozin [Jardiance] 20 mg PO DAILY 10/17/20 03/24/22 History Nitroglycerin Sl Tabs [Nitrostat] 0.4 mg SL Q5M PRN 10/17/20 03/24/22 History Albuterol Nebulized [Ventolin 2.5 mg INHALATION RT-Q4H PRN 01/15/22 03/24/22 History Nebulized] Betamethasone Dipropionate 1 applic TOPICAL BID PRN 01/15/22 03/24/22 History [Diprolene AF 0.05% Cream] Exenatide Microspheres [Bydureon 2 mg SQ FR 01/15/22 03/24/22 History Bcise Auto-Injector] Ezetimibe [Zetia] 10 mg PO DIRECTED 01/15/22 03/24/22 History Fluticasone Propion/Salmeterol 1 puff INHALATION RT-BID 01/15/22 03/24/22 History [Wixela 250-50 Inhub] Furosemide [Lasix] 40 mg PO BID PRN 01/15/22 03/24/22 History Insulin Glargine,Hum.rec.anlog 30 unit SQ BID 01/15/22 03/24/22 History [Lantus Solostar Pen] Ipratropium [place] 0.2 mg INHALATION RT-Q6H PRN 01/15/22 03/24/22 History Multivitamins, Thera [Multivitamin 1 tab PO DAILY 01/15/22 03/24/22 History (formulary)] carvediloL 37.5 mg PO BID-W/MEALS 01/15/22 03/24/22 History hydrALAZINE HCL [Apresoline] 25 mg PO DIRECTED 01/15/22 03/24/22 History Albuterol Inhaler [Ventolin Hfa 1 - 2 puff INHALATION RT-Q6H PRN 03/24/22 03/24/22 History Inhaler] Allergies Allergy/AdvReac Type Severity Reaction Status Date / Time tetracycline Allergy Rash/Hives Verified 03/24/22 18:22 Physical Exam Vitals: Vital Signs Temp Pulse Pulse Resp BP BP Pulse Ox 03/25/22 08:00 98.6 F 85 18 166/91 97 03/25/22 01:21 98.6 F 79 20 149/76 95 03/24/22 22:30 97.8 F 77 20 155/88 93 L 03/24/22 19:37 92 L 03/24/22 19:00 72 20 104/60 03/24/22 12:10 100.4 F H 91 19 132/82 94 L Intake and Output 03/24/22 03/25/22 03/25/22 22:59 06:59 14:59 Other: Voiding Method Toilet # Voids 1 1 Results CBC & Chem 7: 03/24/22 15:00 03/24/22 15:09 Labs: Abnormal Lab Results - Last 24 Hours (Table) 03/24/22 03/24/22 03/24/22 Range/Units 15:00 15:09 15:09 WBC 16.9 H (3.8-10.6) k/uL RDW 15.6 H (11.5-15.5) % Neutrophils # 15.4 H (1.3-7.7) k/uL Lymphocytes # 0.6 L (1.0-4.8) k/uL ESR 58 H (0-15) mm/hr Sodium 130 L (137-145) mmol/L Chloride 94 L (98-107) mmol/L Creatinine 1.26 H (0.66-1.25) mg/dL Glucose 226 H (74-99) mg/dL POC Glucose (mg/dL) (70-110) mg/dL Plasma Lactic Acid Kannan 2.5 H* (0.7-2.0) mmol/L Total Bilirubin 2.2 H (0.2-1.3) mg/dL C-Reactive Protein 16.1 H (<1.0) mg/dL Total Protein 5.9 L (6.3-8.2) g/dL Albumin 3.1 L (3.5-5.0) g/dL 03/24/22 03/25/22 Range/Units 22:35 07:11 WBC (3.8-10.6) k/uL RDW (11.5-15.5) % Neutrophils # (1.3-7.7) k/uL Lymphocytes # (1.0-4.8) k/uL ESR (0-15) mm/hr Sodium (137-145) mmol/L Chloride (98-107) mmol/L Creatinine (0.66-1.25) mg/dL Glucose (74-99) mg/dL POC Glucose (mg/dL) 280 H 186 H (70-110) mg/dL Plasma Lactic Acid [place] (0.7-2.0) mmol/L Total Bilirubin (0.2-1.3) mg/dL C-Reactive Protein (<1.0) mg/dL Total Protein (6.3-8.2) g/dL Albumin (3.5-5.0) g/dL Assessment and Plan (1) Chronic venous hypertension (idiopathic) with ulcer and inflammation of bilateral lower extremity Current Visit: No Status: Acute Code(s): I87.333 - CHRONIC VENOUS HTN W ULCER AND INFLAM OF BILATERAL LOW EXTRM; L97.919 - NON-PRS CHRONIC ULC UNSP PRT OF R LOW LEG W UNSP SEVERITY; L97.929 - NON-PRS CHRONIC ULC UNSP PRT OF L LOW LEG W UNSP SEVERITY SNOMED Code(s): 732692192072787 (2) Non-pressure chronic ulcer of other part of right lower leg with fat layer exposed Current Visit: No Status: Acute Code(s): L97.812 - NON-PRS CHRONIC ULCER OTH PRT R LOW LEG W FAT LAYER EXPOSED SNOMED Code(s): 47122590 (3) Nonhealing ulcer of multiple sites of left lower extremity with fat layer exposed Current Visit: No Status: Acute Code(s): L97.922 - NON-PRS CHR ULC UNSP PRT OF L LOW LEG W FAT LAYER EXPOSED SNOMED Code(s): 62093975
[2022-03-25 08:55] LABS: HCT 42.5 % (39.6-50.0); HGB 13.4 g/dL (13.0-17.0); MCH 27.3 pg (27.0-32.0); MCHC 31.5 g/dL (32.0-37.0); MCV 86.7 fL (80.0-97.0); Mean Platelet Volume 11.3 fL (9.5-12.2); NRBC Per 100 WBC 0 /100 WBCS (0.0-0.0); Platelet Count 156 X 10*3/uL (140-440); RDW 15.9 % (11.5-14.5)
[2022-03-25 09:09] LABS: African American GFR (CKD) 61.2 (60.0-200.0); Anion Gap 8.9 mmol/L (10.00-18.00); BUN/Creat Ratio 13.67 Ratio (12.00-20.00); Blood Urea Nitrogen 20.5 mg/dL (9.0-27.0); Calcium 8.4 mg/dL (8.7-10.3); Carbon Dioxide 28.1 mmol/L (20.0-27.5); Non-African American GFR(CKD) 52.8 (60.0-200.0)
[2022-03-25 12:07] LABS: Glucose,Whole Blood 215 mg/dL (70-110)
[2022-03-25 17:11] LABS: Glucose,Whole Blood 212 mg/dL (70-110)
--- NOTE | 2022-03-25 17:43 | P.PN ---
Subjective Progress Note Date: 03/25/22 Patient was seen and examined. No acute events overnight. Patient reports a slight improvement in the pain of both of his legs. He continues to have erythema and redness of both of his legs. He denies any chest pain, shortness breath or palpitations. No nausea or vomiting. No fever or chills. General: Disheveled, no distress, appears older than stated age, morbidly obese Derm: Bilateral lower extremity venous stasis changes noted with erythema, warm Head: atraumatic, normocephalic, symmetric Eyes: EOMI, no lid lag, anicteric sclera ENT: Nose and ears atraumatic Neck: No cervical lymphadenopathy, trachea midline, supple Mouth: no lip lesion, mucus membranes moist Cardiovascular: S1S2 reg, no murmur, positive dorsalis pedis pulse bilateral, 2+ bilateral lower extremity pitting edema Lungs: CTA bilateral, no rhonchi, no rales, no accessory muscle use Ext: muscle strength 5 out of 5 in all 4 extremities grossly, no gross muscle atrophy, no contractures, bilateral lower extremity dressings in place with underlying erythema and induration noted Neuro: no gross focal neuro deficits Psych: Alert, oriented, appropriate affect Assessment/plan Sepsis secondary to bilateral lower extremity cellulitis -Patient initially met sepsis criteria with fever, tachycardia, positive source of infection -Continue with broad-spectrum antibiotics including vancomycin and cefepime at this time -Wound care consult -Decrease IVF to 50 cc/h of NS -Follow up blood cultures -PT and OT consult Resolved: Acute kidney injury, lactic acidosis, hyponatremia Chronic conditions: Type II DM, hypertension, hyperlipidemia, coronary artery disease -Insulin sliding scale blood glucose monitoring -Levemir 20 units daily at bedtime -Continue with home medications DVT prophylaxis -Heparin subq The patient is admitted with an anticipated greater than 2 midnight stay for evaluation of cellulitis CODE STATUS: Full Code Discussed with: Patient Anticipated discharge date: 03/26 Objective - Vital Signs Vital signs: Vital Signs Temp 98.7 F 03/25/22 14:00 Pulse 72 03/25/22 14:00 Resp 20 03/25/22 14:00 BP 143/79 03/25/22 14:00 Pulse Ox 93 L 03/25/22 14:00 FiO2 Intake & Output 03/24/22 03/25/22 03/25/22 18:59 06:59 18:59 Weight 165.561 kg 165.561 kg Other: Voiding Method Toilet # Voids 1 1 - Labs CBC & Chem 7: 03/25/22 05:18 03/25/22 05:18 Labs: Abnormal Lab Results - Last 24 Hours (Table) 03/24/22 03/25/22 03/25/22 Range/Units 22:35 05:18 05:18 MCHC 31.5 L (32.0-37.0) g/dL RDW 15.9 H (11.5-14.5) % Carbon Dioxide 28.1 H (20.0-27.5) mmol/L Anion Gap 8.90 L (10.00-18.00) mmol/L Est GFR (CKD-EPI)NonAf 52.8 L (60.0-200.0) Glucose 249 H (70-110) mg/dL POC Glucose (mg/dL) 280 H (70-110) mg/dL Calcium 8.4 L (8.7-10.3) mg/dL 03/25/22 03/25/22 03/25/22 Range/Units 07:11 12:05 17:10 MCHC (32.0-37.0) g/dL RDW (11.5-14.5) % Carbon Dioxide (20.0-27.5) mmol/L Anion Gap (10.00-18.00) mmol/L Est GFR (CKD-EPI)NonAf (60.0-200.0) Glucose (70-110) mg/dL POC Glucose (mg/dL) 186 H 215 H 212 H (70-110) mg/dL Calcium (8.7-10.3) mg/dL
[2022-03-25 20:15] LABS: Glucose,Whole Blood 216 mg/dL (70-110)
[2022-03-25] MEDS: ATORVASTATIN 80 MG TAB PO SCH (21:54)
[2022-03-25] MEDS: PANTOPRAZOLE 40 MG TABLET PO SCH (21:54)
[2022-03-25] MEDS: INSULIN DETEMIR (LEVEMIR) 100 UNIT/ML SYR SQ SCH (21:54)
[2022-03-26] MEDS: VANCOMYCIN 2,500 MG in SODIUM CHLORIDE 0.9% 500 ML 500 ML IVPB SCH ×3 (02:26→18:26)
[2022-03-26] MEDS: SODIUM CHLORIDE 0.9% 1,000 ML IV SCH ×2 (05:45→11:14)
[2022-03-26 06:56] LABS: African American GFR (CKD) >90 (>60 ml/min/1.73 sqM); Non-African American GFR(CKD) 82 (>60 ml/min/1.73 sqM)
[2022-03-26 07:01] LABS: Glucose,Whole Blood 170 mg/dL (70-110)
[2022-03-26] MEDS: SYMBICORT 80-4.5 MCG INHALER INHALATION SCH ×2 (07:34→20:58)
[2022-03-26] MEDS: carvediloL 12.5 MG TAB PO SCH ×2 (08:43→18:25)
[2022-03-26] MEDS: CEFEPIME 2 GM in SODIUM CHLORIDE 0.9% 100 ML IVPB SCH (08:43)
[2022-03-26] MEDS: INSULIN ASPART (NovoLOG) 100 UNIT/ML VIAL SQ SCH ×4 (08:43→21:15)
[2022-03-26] MEDS: hydrALAZINE HCL 25 MG TAB PO SCH ×3 (08:43→21:14)
[2022-03-26] MEDS: ASPIRIN 81 MG PO SCH (08:43)
[2022-03-26] MEDS: HEPARIN SODIUM,PORCINE/PF 5,000 UNIT/0.5 ML SYRINGE SQ SCH ×3 (08:43→23:53)
[2022-03-26] MEDS: LOSARTAN 50 MG TAB PO SCH (08:43)
[2022-03-26 11:21] LABS: Glucose,Whole Blood 288 mg/dL (70-110)
--- NOTE | 2022-03-26 15:22 | P.PN ---
Subjective Progress Note Date: 03/26/22 Patient was seen and examined. No acute events overnight. Patient reports improvement in the pain of both of his legs. He continues to have erythema and redness of both of his legs. He has been working with physical therapy. He denies any chest pain, shortness breath or palpitations. No nausea or vomiting. No fever or chills. General: Disheveled, no distress, appears older than stated age, morbidly obese Derm: Bilateral lower extremity venous stasis changes noted with erythema, warm Head: atraumatic, normocephalic, symmetric Eyes: EOMI, no lid lag, anicteric sclera ENT: Nose and ears atraumatic Neck: No cervical lymphadenopathy, trachea midline, supple Mouth: no lip lesion, mucus membranes moist Cardiovascular: S1S2 reg, no murmur, positive dorsalis pedis pulse bilateral, 2+ bilateral lower extremity pitting edema Lungs: CTA bilateral, no rhonchi, no rales, no accessory muscle use Ext: muscle strength 5 out of 5 in all 4 extremities grossly, no gross muscle atrophy, no contractures, bilateral lower extremity dressings in place with underlying erythema and induration noted Neuro: no gross focal neuro deficits Psych: Alert, oriented, appropriate affect Assessment/plan Sepsis secondary to bilateral lower extremity cellulitis -Patient initially met sepsis criteria with fever, tachycardia, positive source of infection -Continue with broad-spectrum antibiotics including vancomycin and discontinue cefepime at this time -Wound care consult -Decrease IVF to 50 cc/h of NS -Follow up blood cultures -PT and OT consult Resolved: Acute kidney injury, lactic acidosis, hyponatremia Chronic conditions: Type II DM, hypertension, hyperlipidemia, coronary artery disease -Insulin sliding scale blood glucose monitoring -Levemir 20 units daily at bedtime -Continue with home medications DVT prophylaxis -Heparin subq CODE STATUS: Full Code Discussed with: Patient Patient shows slight improvement in his cellulitis. Vital signs stable. Leukocytosis resolved. Anticipate DC home tomorrow. Objective - Vital Signs Vital signs: Vital Signs Temp 97.6 F 03/26/22 11:31 Pulse 57 L 03/26/22 11:31 Resp 16 03/26/22 11:31 BP 133/85 03/26/22 11:31 Pulse Ox 97 03/26/22 11:31 FiO2 Intake & Output 03/25/22 03/26/22 03/26/22 18:59 06:59 18:59 Weight 165.561 kg Other: Voiding Method Toilet # Voids 1 # Bowel Movements 0 - Labs CBC & Chem 7: 03/25/22 05:18 03/26/22 06:04 Labs: Abnormal Lab Results - Last 24 Hours (Table) 03/25/22 03/25/22 03/26/22 Range/Units 17:10 20:14 07:00 POC Glucose (mg/dL) 212 H 216 H 170 H (70-110) mg/dL 03/26/22 Range/Units 11:19 POC Glucose (mg/dL) 288 H (70-110) mg/dL Microbiology - Last 24 Hours (Table) 03/24/22 18:00 Blood Culture - Preliminary Blood No Growth after 24 hours 03/24/22 17:45 Blood Culture - Preliminary Blood No Growth after 24 hours
[2022-03-26 17:13] LABS: Glucose,Whole Blood 197 mg/dL (70-110)
[2022-03-26 20:18] LABS: Glucose,Whole Blood 248 mg/dL (70-110)
[2022-03-26] MEDS: INSULIN DETEMIR (LEVEMIR) 100 UNIT/ML SYR SQ SCH (21:14)
[2022-03-26] MEDS: PANTOPRAZOLE 40 MG TABLET PO SCH (21:14)
[2022-03-26] MEDS: ATORVASTATIN 80 MG TAB PO SCH (21:14)
[2022-03-27] MEDS: SODIUM CHLORIDE 0.9% 1,000 ML IV SCH ×2 (02:51→08:39)
[2022-03-27 07:08] LABS: Glucose,Whole Blood 202 mg/dL (70-110)
[2022-03-27] MEDS: SYMBICORT 80-4.5 MCG INHALER INHALATION SCH (07:14)
[2022-03-27 08:21] LABS: African American GFR (CKD) >90 (>60 ml/min/1.73 sqM); Anion Gap 5 mmol/L; Blood Urea Nitrogen 17 mg/dL (9-20); Calcium 8.2 mg/dL (8.4-10.2); Carbon Dioxide 29 mmol/L (22-30); Chloride 103 mmol/L (98-107); Glucose 193 mg/dL (74-99); Non-African American GFR(CKD) >90 (>60 ml/min/1.73 sqM); Potassium 3.9 mmol/L (3.5-5.1); Sodium 137 mmol/L (137-145)
[2022-03-27] MEDS: HEPARIN SODIUM,PORCINE/PF 5,000 UNIT/0.5 ML SYRINGE SQ SCH (08:35)
[2022-03-27] MEDS: INSULIN ASPART (NovoLOG) 100 UNIT/ML VIAL SQ SCH ×2 (08:35→12:45)
[2022-03-27] MEDS: carvediloL 12.5 MG TAB PO SCH (08:36)
[2022-03-27] MEDS: ASPIRIN 81 MG PO SCH (08:36)
[2022-03-27] MEDS: hydrALAZINE HCL 25 MG TAB PO SCH (08:36)
[2022-03-27] MEDS: LOSARTAN 50 MG TAB PO SCH (08:36)
[2022-03-27 11:10] LABS: Glucose,Whole Blood 192 mg/dL (70-110)
[2022-03-27] MEDS: VANCOMYCIN 2,500 MG in SODIUM CHLORIDE 0.9% 500 ML 500 ML IVPB SCH (11:11)
--- NOTE | 2022-03-27 11:17 | P.DS ---
Providers Date of admission: 03/24/22 16:44 Expected date of discharge: 03/27/22 Attending physician: Roland Albright MD Primary care physician: [facility] Hospital Course: The patient is a 52-year-old male with a PMH of type II DM, coronary artery disease, COPD, history of DVT, peripheral vascular disease, and chronic lower extremity edema who was sent to the emergency room from wound care clinic. The patient had resented to the clinic earlier today for a scheduled appointment for his nonhealing ulcers on both lower extremities. The patient was noted to have worsening erythema of his legs and was noted to be febrile. In the emergency room upon presentation, the patient's temperature was 100.4F. Laboratory evaluation was remarkable for leukocytosis of 16.9, lactic acid 2.5, CRP 16.1, glucose 226, creatinine 1.6, and ESR 58. At time of interview, the patient reported mild bilateral lower extremity pain, rated a 1 out of 10. Denied experiencing chest discomfort, shortness of breath, abdominal pain, nausea, vomiting, diarrhea. Right foot x-ray revealed midfoot soft tissue swelling. Patient was started on vancomycin and cefepime. Blood cultures are negative at 48 hours. He did have a lactic acidosis and acute kidney injury which resolved with IV hydration. His erythema improved. Wound care was consulted and followed the patient during this hospitalization. PT and OT was consulted and worked with the patient during this hospitalization. Patient was seen and examined on 03/27/2022. He reported no pain in his lower extremities. His erythema had improved. He was discharged home with 7 days of Keflex to complete a total of 10 days antibiotics. He was advised to follow-up with his PCP within 1-2 days of discharge. He was advised follow-up with wound care with the next given appointment. Patient verbalized understanding of the plan. General: Disheveled, no distress, appears older than stated age, morbidly obese Derm: Bilateral lower extremity venous stasis changes noted with erythema, warm Head: atraumatic, normocephalic, symmetric Eyes: EOMI, no lid lag, anicteric sclera ENT: Nose and ears atraumatic Neck: No cervical lymphadenopathy, trachea midline, supple Mouth: no lip lesion, mucus membranes moist Cardiovascular: S1S2 reg, no murmur, positive dorsalis pedis pulse bilateral, 2+ bilateral lower extremity pitting edema Lungs: CTA bilateral, no rhonchi, no rales, no accessory muscle use Ext: muscle strength 5 out of 5 in all 4 extremities grossly, no gross muscle atrophy, no contractures, bilateral lower extremity dressings in place with underlying erythema and induration noted Neuro: no gross focal neuro deficits Psych: Alert, oriented, appropriate affect Discharge diagnosis: Sepsis secondary to bilateral lower extremity cellulitis Acute kidney injury Lactic acidosis Hyponatremia Chronic conditions: Type II DM, hypertension, hyperlipidemia, coronary artery disease This complex discharge took about 35 minutes to complete. Pertinent Studies: Foot x-ray Patient Condition at Discharge: Stable Plan - Discharge Summary New Discharge Prescriptions: New Cephalexin [Keflex] 500 mg PO Q12HR 7 Days #14 cap Acetaminophen Tab [Tylenol] 650 mg PO Q6HR PRN tab PRN Reason: Mild Pain Or Fever > 100.5 Continue Atorvastatin [Lipitor] 80 mg PO HS #30 tab Losartan Potassium [Cozaar] 100 mg PO DAILY metFORMIN HCL [Glucophage] 1,000 mg PO BID Ipratropium/Albuterol Sulfate [Combivent Respimat Inhaler] 1 puff INHALATION RT-QID PRN PRN Reason: Shortness Of Breath Omeprazole 20 mg PO HS Empagliflozin [Jardiance] 20 mg PO DAILY Aspirin EC [Ecotrin Low Dose] 81 mg PO DAILY Nitroglycerin Sl Tabs [Nitrostat] 0.4 mg SL Q5M PRN PRN Reason: Chest Pain Exenatide Microspheres [Bydureon Bcise Auto-Injector] 2 mg SQ FR Insulin Glargine,Hum.rec.anlog [Lantus Solostar Pen] 30 unit SQ BID Fluticasone Propion/Salmeterol [Wixela 250-50 Inhub] 1 puff INHALATION RT-BID carvediloL 37.5 mg PO BID-W/MEALS Ipratropium [place] 0.2 mg INHALATION RT-Q6H PRN PRN Reason: Shortness Of Breath Ezetimibe [Zetia] 10 mg PO DIRECTED Furosemide [Lasix] 40 mg PO BID PRN PRN Reason: Edema Albuterol Inhaler [Ventolin Hfa Inhaler] 1 - 2 puff INHALATION RT-Q6H PRN PRN Reason: Shortness Of Breath Multivitamins, Thera [Multivitamin (formulary)] 1 tab PO DAILY Betamethasone Dipropionate [Diprolene AF 0.05% Cream] 1 applic TOPICAL BID PRN PRN Reason: Rash Albuterol Nebulized [Ventolin Nebulized] 2.5 mg INHALATION RT-Q4H PRN PRN Reason: Shortness Of Breath hydrALAZINE HCL [Apresoline] 25 mg PO DIRECTED Discharge Medication List Atorvastatin [Lipitor] 80 mg PO HS #30 tab 02/27/16 [Rx] Losartan Potassium [Cozaar] 100 mg PO DAILY 11/25/16 [History] Ipratropium/Albuterol Sulfate [Combivent Respimat Inhaler] 1 puff INHALATION RT- QID PRN 01/12/19 [History] metFORMIN HCL [Glucophage] 1,000 mg PO BID 01/12/19 [History] Omeprazole 20 mg PO HS 03/14/19 [History] Aspirin EC [Ecotrin Low Dose] 81 mg PO DAILY 10/17/20 [History] Empagliflozin [Jardiance] 20 mg PO DAILY 10/17/20 [History] Nitroglycerin Sl Tabs [Nitrostat] 0.4 mg SL Q5M PRN 10/17/20 [History] Albuterol Nebulized [Ventolin Nebulized] 2.5 mg INHALATION RT-Q4H PRN 01/15/22 [History] Betamethasone Dipropionate [Diprolene AF 0.05% Cream] 1 applic TOPICAL BID PRN 01/15/22 [History] Exenatide Microspheres [Bydureon Bcise Auto-Injector] 2 mg SQ FR 01/15/22 [History] Ezetimibe [Zetia] 10 mg PO DIRECTED 01/15/22 [History] Fluticasone Propion/Salmeterol [Wixela 250-50 Inhub] 1 puff INHALATION RT-BID 01/15/22 [History] Furosemide [Lasix] 40 mg PO BID PRN 01/15/22 [History] Insulin Glargine,Hum.rec.anlog [Lantus Solostar Pen] 30 unit SQ BID 01/15/22 [History] Ipratropium [place] 0.2 mg INHALATION RT-Q6H PRN 01/15/22 [History] Multivitamins, Thera [Multivitamin (formulary)] 1 tab PO DAILY 01/15/22 [History] carvediloL 37.5 mg PO BID-W/MEALS 01/15/22 [History] hydrALAZINE HCL [Apresoline] 25 mg PO DIRECTED 01/15/22 [History] Albuterol Inhaler [Ventolin Hfa Inhaler] 1 - 2 puff INHALATION RT-Q6H PRN 03/24/22 [History] Acetaminophen Tab [Tylenol] 650 mg PO Q6HR PRN tab 03/27/22 [Rx] Cephalexin [Keflex] 500 mg PO Q12HR 7 Days #14 cap 03/27/22 [Rx] Follow up Appointment(s)/Referral(s): [facility],Clinic [Primary Care Provider] - 04/10/22 2:30 pm Activity/Diet/Wound Care/Special Instructions: Diet: Diabetic, cardiac Follow-up with your PCP within 1-2 days of discharge. Take all medications as advised. Come back to the ED for worsening redness and swelling of your left leg, fevers greater than 100.4 Fahrenheit not relieved with Tylenol Follow-up with wound care clinic with your next given appointment. Discharge Disposition: HOME SELF-CARE
[2022-03-27 11:45] VITALS: BP 155/89; PULSE 62; RESP 16; TEMP 97.6
[2022-03-28] MEDS ORDERED: VANCOMYCIN TROUGH DUE 1 EACH MISC MISCELLANE ONE (01:00)
== END 2022-03-27 15:30 | disposition home or self-care (01) | DRG 872 ==
LOC: EC 11:50 → 5NMEDONC 16:44
PROVIDERS: ADMIT Student in an Organized Health Care Education/Training Program; ATTEND Student in an Organized Health Care Education/Training Program
DX: A41.9 Sepsis, unspecified organism (principal); L03.115 Cellulitis of right lower limb; L03.116 Cellulitis of left lower limb; L97.812 Non-pressure chronic ulcer of other part of right lower leg with fat layer exposed; L97.222 Non-pressure chronic ulcer of left calf with fat layer exposed; L97.212 Non-pressure chronic ulcer of right calf with fat layer exposed; N17.9 Acute kidney failure, unspecified; E87.1 Hypo-osmolality and hyponatremia; E87.2 Acidosis; I87.333 Chronic venous hypertension (idiopathic) with ulcer and inflammation of bilateral lower extremity; I10 Essential (primary) hypertension; E78.5 Hyperlipidemia, unspecified; G47.33 Obstructive sleep apnea (adult) (pediatric); E11.51 Type 2 diabetes mellitus with diabetic peripheral angiopathy without gangrene; I70.209 Unspecified atherosclerosis of native arteries of extremities, unspecified extremity; I25.10 Atherosclerotic heart disease of native coronary artery without angina pectoris; J44.9 Chronic obstructive pulmonary disease, unspecified; L98.492 Non-pressure chronic ulcer of skin of other sites with fat layer exposed; Z87.891 Personal history of nicotine dependence; Z86.718 Personal history of other venous thrombosis and embolism; Z79.4 Long term (current) use of insulin; Z79.82 Long term (current) use of aspirin; Z79.84 Long term (current) use of oral hypoglycemic drugs; Z79.899 Other long term (current) drug therapy; Z86.74 Personal history of sudden cardiac arrest; Z86.14 Personal history of Methicillin resistant Staphylococcus aureus infection; I25.2 Old myocardial infarction
CPT/HCPCS: 36415; 80048; 80053; 82565; 83605; 85025; 85027; 85610; 85652; 85730; 86140; 87040; 93005; 94640; 96361; 96365; 96366; 96367; 96368; 96372; 96375; 99285

== ENCOUNTER 2023-05-02 11:07 | Inpatient (IN) | payer OTHER ==
[2023-05-02] MEDS ORDERED: ASPIRIN 81 MG PO STA (11:24)
[2023-05-02] MEDS ORDERED: NITROGLYCERIN SL TABS 0.4 MG TAB SUBLINGUAL STA (11:24)
[2023-05-02] MEDS ORDERED: NITROGLYCERIN OINT 1 INCH/GM PACKET TOPICAL STA (11:24)
--- NOTE | 2023-05-02 11:27 | ED ---
General Adult HPI - General Chief complaint: Chest Pain Stated complaint: Chest Pain Time Seen by Provider: 05/02/23 11:10 Source: patient, RN notes reviewed, old records reviewed Mode of arrival: wheelchair Limitations: no limitations - History of Present Illness Initial comments: This is a 53-year-old male who presents emergency Department complaining of chest pain started yesterday. Patient states it has waxed and waned but has not gone away completely. Patient states he is short of breath he denies any radiation of the pain denies any diaphoretic episodes and denies any nausea. Patient states she's had a heart attack in the past with stent placement. Patient states she also has diabetes hypertension high cholesterol and a strong family is a smoking history. She states she has angioedema to both of his legs. Patient denies any fever chills or cough per patient denies any abdominal pain patient denies nausea vomiting diarrhea. - Related Data Home Medications Medication Instructions Recorded Confirmed Losartan Potassium [Cozaar] 100 mg PO DAILY 11/25/16 03/24/22 Ipratropium/Albuterol Sulfate 1 puff INHALATION RT-QID PRN 01/12/19 03/24/22 [Combivent Respimat Inhaler] metFORMIN HCL [Glucophage] 1,000 mg PO BID 01/12/19 03/24/22 Omeprazole 20 mg PO HS 03/14/19 03/24/22 Aspirin EC [Ecotrin Low Dose] 81 mg PO DAILY 10/17/20 03/24/22 Empagliflozin [Jardiance] 20 mg PO DAILY 10/17/20 03/24/22 Nitroglycerin Sl Tabs [Nitrostat] 0.4 mg SL Q5M PRN 10/17/20 03/24/22 Albuterol Nebulized [Ventolin 2.5 mg INHALATION RT-Q4H PRN 01/15/22 03/24/22 Nebulized] Betamethasone Dipropionate 1 applic TOPICAL BID PRN 01/15/22 03/24/22 [Diprolene AF 0.05% Cream] Exenatide Microspheres [Bydureon 2 mg SQ FR 01/15/22 03/24/22 Bcise Auto-Injector] Ezetimibe [Zetia] 10 mg PO DIRECTED 01/15/22 03/24/22 Fluticasone Propion/Salmeterol 1 puff INHALATION RT-BID 01/15/22 03/24/22 [Wixela 250-50 Inhub] Furosemide [Lasix] 40 mg PO BID PRN 01/15/22 03/24/22 Insulin Glargine,Hum.rec.anlog 30 unit SQ BID 01/15/22 03/24/22 [Lantus Solostar Pen] Ipratropium [place] 0.2 mg INHALATION RT-Q6H PRN 01/15/22 03/24/22 Multivitamins, Thera [Multivitamin 1 tab PO DAILY 01/15/22 03/24/22 (formulary)] carvediloL 37.5 mg PO BID-W/MEALS 01/15/22 03/24/22 hydrALAZINE HCL [Apresoline] 25 mg PO DIRECTED 01/15/22 03/24/22 Albuterol Inhaler [Ventolin Hfa 1 - 2 puff INHALATION RT-Q6H PRN 03/24/22 03/24/22 Inhaler] Previous Rx's Medication Instructions Recorded Atorvastatin [Lipitor] 80 mg PO HS #30 tab 02/27/16 Acetaminophen Tab [Tylenol] 650 mg PO Q6HR PRN tab 03/27/22 Cephalexin [Keflex] 500 mg PO Q12HR 7 Days #14 cap 03/27/22 Allergies Allergy/AdvReac Type Severity Reaction Status Date / Time tetracycline Allergy Rash/Hives Verified 05/02/23 11:08 Review of Systems ROS Statement: Those systems with pertinent positive or pertinent negative responses have been documented in the HPI. ROS Other: All systems not noted in ROS Statement are negative. Past Medical History Past Medical History: Asthma, Coronary Artery Disease (CAD), COPD, Deep Vein Thrombosis (DVT), GERD/Reflux, Hyperlipidemia, Hypertension, Myocardial Infarction (MO), Renal Disease, Sleep Apnea/CPAP/BIPAP, Vascular Disorder Additional Past Medical History / Comment(s): 02/20/16 MO with cardiac [id number] wore life vest for 7 weeks, 2010 DVT RIGHT leg, bilateral lower leg cellulitis, bilateral varicose veins, PVD, NIDDM type II, BERTRAND with CPAP. UTI Mar 2021, cellulitis with open wounds on bilateral lower legs being treated in wound center 2021 Last Myocardial Infarction Date:: 02/20/16 History of Any Multi-Drug Resistant Organisms: MRSA Date of last positivie culture/infection: 2017 MDRO Source:: right leg Past Surgical History: Heart Catheterization With Stent Additional Past Surgical History / Comment(s): circumcision Additional Past Anesthesia/Blood Transfusion Reaction / Comment(s): Pt has never had anesthesia Date of Last Stent Placement:: 02/20/16 Past Psychological History: No Psychological Hx Reported Smoking Status: Former smoker Past Alcohol Use History: None Reported Past Drug Use History: None Reported - Past Family History Father Family Medical History: Coronary Artery Disease (CAD), Diabetes Mellitus, Eye Disorder Additional Family Medical History / Comment(s): Bradycardia, blind. Father is in his early 70's. Mother Family Medical History: Coronary Artery Disease (CAD), Diabetes Mellitus Additional Family Medical History / Comment(s): Benign brain tumor. Mother is in her early 70's General Exam - General Exam Comments Initial Comments: GENERAL: Patient is well-developed and well-nourished. Patient is nontoxic and well-h ydrated and is in mild distress. ENT: Neck is soft and supple. No significant lymphadenopathy is noted. Oropharynx is clear. Moist mucous membranes. Neck has full range of motion without eliciting any pain. EYES: The sclera were anicteric and conjunctiva were pink and moist. Extraocular mov ements were intact and pupils were equal round and reactive to light. Eyelids were unremarkable. PULMONARY: Unlabored respirations. Good breath sounds bilaterally. No audible rales rhonchi or wheezing was noted. CARDIOVASCULAR: There is a regular rate and rhythm without any murmurs gallops or rubs. ABDOMEN: Soft and nontender with normal bowel sounds. SKIN: Skin is clear with no lesions or rashes and otherwise unremarkable. NEUROLOGIC: Patient is alert and oriented x3. Cranial nerves II through XII are grossly intact. Motor and sensory are also intact. Normal speech, volume and content. Symmetrical smile. MUSCULOSKELETAL: Normal extremities with adequate strength and full range of motion. Edema 3+ bilaterally with multiple areas that are weeping LYMPHATICS: No significant lymphadenopathy is noted PSYCHIATRIC: Normal psychiatric evaluation. Limitations: no limitations Course Vital Signs 05/02/23 05/02/23 05/02/23 11:08 11:45 13:20 Temperature 98.2 F 100.6 F H Pulse Rate 106 H 97 87 Respiratory 16 20 18 Rate Blood Pressure 170/118 155/76 146/87 O2 Sat by Pulse 96 93 L 93 L Oximetry Medical Decision Making - Medical Decision Making EKG was interpreted by myself EKG shows a sinus rhythm with occasional PAC at 97 bpm NM interval 270 QRS is 170 QT interval 340 QTC is 43. Epistaxis EKG shows T-wave inversions precordial leads which was seen on a previous EKG. Was pt. sent in by a medical professional or institution (, PA, CONCRETE PILE DRIVER OPERATOR, urgent care, hospital, or shelter...) When possible be specific @ -No Did you speak to anyone other than the patient for history (EMS, parent, family, police, friend...)? What history was obtained from this source @ -No Did you review nursing and triage notes (agree or disagree)? Why? @ -I reviewed and agree with nursing and triage notes Were old charts reviewed (outside hosp., previous admission, EMS record, old EKG, old radiological studies, urgent care reports/EKG's, shelter records)? Report findings @ -I've reviewed prior charts in prior laboratory on this patient Differential Diagnosis (chest pain, altered mental status, abdominal pain women, abdominal pain men, vaginal bleeding, weakness, fever, dyspnea, syncope, headache, dizziness, GI bleed, back pain, seizure, CVA, palpatations, mental health, musculoskeletal)? @ -Differential Chest Pain: Stable Angina, Unstable Angina, STEMI, NSTEMI Aortic Dissection, Pneumothorax, Musculoskeletal, Esophageal Spasm GERD, Cholecystitis, Pancreatitis, Zoster, this is not meant to be an all-inclusive list. EKG interpreted by me (3pts min.). @ -As above X-rays interpreted by me (1pt min.). @ -Chest x-ray shows no acute abnormality CT interpreted by me (1pt min.). @ -None done U/S interpreted by me (1pt. min.). @ -None done What testing was considered but not performed or refused? (CT, X-rays, U/S, labs)? Why? @ -None What meds were considered but not given or refused? Why? @ -None Did you discuss the management of the patient with other professionals (professionals i.e. , LISA, CONCRETE PILE DRIVER OPERATOR, lab, RT, psych nurse, social sciences instructor, directional driller, teacher, adult probation officer, residential case manager)? Give summary @ -I spoke with sound physician's they agreed to admit the patient admitted the patient wrote admitting orders Was smoking cessation discussed for >3mins.? @ -No Was critical care preformed (if so, how long)? @ -No Were there social determinants of health that impacted care today? How? (Homelessness, low income, unemployed, alcoholism, drug addiction, transportation, low edu. Level, literacy, decrease access to med. care, usp, rehab)? @ -No Was there de-escalation of care discussed even if they declined (Discuss DNR or withdrawal of care, Hospice)? DNR status @ -No What co-morbidities impacted this encounter? (DM, HTN, Smoking, COPD, CAD, Cancer, CVA, ARF, Chemo, Hep., AIDS, mental health diagnosis, sleep apnea, morbid obesity)? @ -None Was patient admitted / discharged? Hospital course, mention meds given and route, prescriptions, significant lab abnormalities, going to OR and other pertinent info. @ -Patient has a low-grade fever in the emergency department he was given Tylenol. Patient also has significant edema I gave the patient Lasix as well per patient also was given aspirin and Nitropaste to the chest pain and shortness of breath. I spoke with sound physician's they agreed to admit the patient I admitted the patient I consulted cardiology. Undiagnosed new problem with uncertain prognosis? @ -No Drug Therapy requiring intensive monitoring for toxicity (Heparin, Nitro, Insulin, Cardizem)? @ -No Were any procedures done? @ -No Diagnosis/symptom? @ -Chest pain Acute, or Chronic, or Acute on Chronic? @ -Acute Uncomplicated (without systemic symptoms) or Complicated (systemic symptoms)? @ -Complicated Side effects of treatment? @ -No Exacerbation, Progression, or Severe Exacerbation? @ -No Poses a threat to life or bodily function? How? (Chest pain, USA, MO, pneumonia, PE, COPD, DKA, ARF, appy, cholecystitis, CVA, Diverticulitis, Homicidal, Suicidal, threat to staff... and all critical care pts) @ -Yes chest pain can lead to an MO which could lead to poor perfusion and end organ dysfunction Diagnosis/symptom? @ -Peripheral edema Acute, or Chronic, or Acute on Chronic? @ -Chronic Uncomplicated (without systemic symptoms) or Complicated (systemic symptoms)? @ -No Side effects of treatment? @ -none Exacerbation, Progression, or Severe Exacerbation] @ -no Poses a threat to life or bodily function? @ -no - Lab Data Result diagrams: 05/02/23 11:31 05/02/23 11:31 Lab Results 05/02/23 05/02/23 05/02/23 Range/Units 11:31 11:31 11:31 WBC 4.3 (3.8-10.6) k/uL RBC 4.71 (4.30-5.90) m/uL Hgb 13.5 (13.0-17.5) gm/dL Hct 41.1 (39.0-53.0) % MCV 87.2 (80.0-100.0) fL MCH 28.7 (25.0-35.0) pg MCHC 33.0 (31.0-37.0) g/dL RDW 14.8 (11.5-15.5) % Plt Count 176 (150-450) k/uL MPV 8.1 Neutrophils % 85 % Lymphocytes % 8 % Monocytes % 4 % Eosinophils % 1 % Basophils % 0 % Neutrophils # 3.7 (1.3-7.7) k/uL Lymphocytes # 0.4 L (1.0-4.8) k/uL Monocytes # 0.2 (0-1.0) k/uL Eosinophils # 0.0 (0-0.7) k/uL Basophils # 0.0 (0-0.2) k/uL PT 10.4 (10.0-12.5) sec INR 0.9 (<1.2) APTT 26.3 (22.0-30.0) sec Sodium 130 L (137-145) mmol/L Potassium 3.8 (3.5-5.1) mmol/L Chloride 99 (98-107) mmol/L Carbon Dioxide 24 (22-30) mmol/L Anion Gap 7 mmol/L BUN 14 (9-20) mg/dL Creatinine 1.25 (0.66-1.25) mg/dL Est GFR (CKD-EPI)AfAm 76 (>60 ml/min/1.73 sqM) Est GFR (CKD-EPI)NonAf 66 (>60 ml/min/1.73 sqM) Glucose 287 H (74-99) mg/dL Calcium 8.3 L (8.4-10.2) mg/dL Magnesium 1.6 (1.6-2.3) mg/dL Total Bilirubin 1.1 (0.2-1.3) mg/dL AST 33 (17-59) U/L ALT 20 (4-49) U/L Alkaline Phosphatase 69 (38-126) U/L Troponin I (0.000-0.034) ng/mL NT-Pro-B Natriuret Pep 9260 pg/mL Total Protein 5.3 L (6.3-8.2) g/dL Albumin 2.6 L (3.5-5.0) g/dL Influenza Type A (PCR) (Not Detectd) Influenza Type B (PCR) (Not Detectd) RSV (PCR) (Not Detectd) SARS-CoV-2 (PCR) (Not Detectd) 05/02/23 05/02/23 Range/Units 11:31 12:05 WBC (3.8-10.6) k/uL RBC (4.30-5.90) m/uL Hgb (13.0-17.5) gm/dL Hct (39.0-53.0) % MCV (80.0-100.0) fL MCH (25.0-35.0) pg MCHC (31.0-37.0) g/dL RDW (11.5-15.5) % Plt Count (150-450) k/uL MPV Neutrophils % % Lymphocytes % % Monocytes % % Eosinophils % % Basophils % % Neutrophils # (1.3-7.7) k/uL Lymphocytes # (1.0-4.8) k/uL Monocytes # (0-1.0) k/uL Eosinophils # (0-0.7) k/uL Basophils # (0-0.2) k/uL PT (10.0-12.5) sec INR (<1.2) APTT (22.0-30.0) sec Sodium (137-145) mmol/L Potassium (3.5-5.1) mmol/L Chloride (98-107) mmol/L Carbon Dioxide (22-30) mmol/L Anion Gap mmol/L BUN (9-20) mg/dL Creatinine (0.66-1.25) mg/dL Est GFR (CKD-EPI)AfAm (>60 ml/min/1.73 sqM) Est GFR (CKD-EPI)NonAf (>60 ml/min/1.73 sqM) Glucose (74-99) mg/dL Calcium (8.4-10.2) mg/dL Magnesium (1.6-2.3) mg/dL Total Bilirubin (0.2-1.3) mg/dL AST (17-59) U/L ALT (4-49) U/L Alkaline Phosphatase (38-126) U/L Troponin I 0.076 H* (0.000-0.034) ng/mL NT-Pro-B Natriuret Pep pg/mL Total Protein (6.3-8.2) g/dL Albumin (3.5-5.0) g/dL Influenza Type A (PCR) Not Detected (Not Detectd) Influenza Type B (PCR) Not Detected (Not Detectd) RSV (PCR) Not Detected (Not Detectd) SARS-CoV-2 (PCR) Not Detected (Not Detectd) Disposition Clinical Impression: Chest pain, Peripheral edema Disposition: ADMITTED IP TO THIS HOSP Referrals: [facility],Clinic [Primary Care Provider] - 1-2 days Time of Disposition: 14:34
[2023-05-02] MEDS ORDERED: ACETAMINOPHEN TAB 500 MG TAB PO STA (11:51)
[2023-05-02 11:57] LABS: Basophils % (A) 0 %; Eosinophils % (A) 1 %; HCT 41.1 % (39.0-53.0); HGB 13.5 gm/dL (13.0-17.5); Lymphocytes # (A) 0.4 k/uL (1.0-4.8); Lymphocytes % (A) 8 %; MCH 28.7 pg (25.0-35.0); MCV 87.2 fL (80.0-100.0); Mean Platelet Volume 8.1; Monocytes # (A) 0.2 k/uL (0-1.0); Monocytes % (A) 4 %; Neutrophils # (A) 3.7 k/uL (1.3-7.7); Neutrophils % (A) 85 %; Platelet Count 176 k/uL (150-450); RBC 4.71 m/uL (4.30-5.90); RDW 14.8 % (11.5-15.5); WBC 4.3 k/uL (3.8-10.6)
--- NOTE | 2023-05-02 12:05 | XR ---
EXAMINATION TYPE: XR chest 2V DATE OF EXAM: 05/02/2023 11:56 AM CLINICAL INDICATION:Male, 53 years old with history of Chest Pain; H COMPARISON: Chest radiographs from 01/19/2021 TECHNIQUE: XR chest 2V Frontal and lateral views of the chest. FINDINGS: Lungs/Pleura: Scattered subtle reticular and hazy opacities. No evidence of pneumothorax, focal conso lidation or pleural effusion. Pulmonary vascularity: Unremarkable. Heart/mediastinum: Cardiomediastinal silhouette is unremarkable. Musculoskeletal: No acute osseous pathology. IMPRESSION: Subtle scattered opacities which may represent an atypical pneumonia. Correlate for covid 19.
[2023-05-02 12:17] LABS: ALT 20 U/L (4-49); AST 33 U/L (17-59); African American GFR (CKD) 76 (>60 ml/min/1.73 sqM); Albumin 2.6 g/dL (3.5-5.0); Alkaline Phosphatase 69 U/L (38-126); Anion Gap 7 mmol/L; Blood Urea Nitrogen 14 mg/dL (9-20); Calcium 8.3 mg/dL (8.4-10.2); Carbon Dioxide 24 mmol/L (22-30); Chloride 99 mmol/L (98-107); Glucose 287 mg/dL (74-99); Magnesium 1.6 mg/dL (1.6-2.3); Non-African American GFR(CKD) 66 (>60 ml/min/1.73 sqM); Potassium 3.8 mmol/L (3.5-5.1); Sodium 130 mmol/L (137-145); Total Bilirubin 1.1 mg/dL (0.2-1.3); Total Protein 5.3 g/dL (6.3-8.2)
[2023-05-02 12:25] LABS: INR 0.9 (<1.2); NT-Pro-B-Type Natriuretic Pept 9260 pg/mL; Partial Thromboplastin Time 26.3 sec (22.0-30.0); Prothrombin Time 10.4 sec (10.0-12.5)
[2023-05-02] MEDS ORDERED: FUROSEMIDE 10 MG/ML 4 ML VIAL IV STA (13:28)
[2023-05-02] MEDS ORDERED: NITROGLYCERIN SL TABS 0.4 MG TAB SUBLINGUAL PRN (14:34)
[2023-05-02 15:44] LABS: Appearance,Urine Clear (Clear); Bilirubin,Urine Negative (Negative); Blood,Urine Moderate (Negative); Color,Urine Yellow; Glucose,Urine (UA) 4+ (Negative); Granular Casts,Urine 4 /lpf (0); Hyaline Casts,Urine 3 /lpf (0-2); Ketones,Urine Negative (Negative); Leukocyte Esterase,Urine Negative (Negative); Mucus,Urine Rare /hpf; Nitrite,Urine Negative (Negative); PH, Urine 6.5 (5.0-8.0); Protein,Urine 3+ (Negative); RBC,Urine 1 /hpf (0-5); Specific Gravity,Urine 1.031 (1.001-1.035); Squamous Epithelial Cell,Urine 2 /hpf (0-4); Urobilinogen,Urine <2.0 mg/dL (<2.0); WBC,Urine 4 /hpf (0-5)
[2023-05-02] MEDS ORDERED: ALBUTEROL NEBULIZED 2.5 MG/3 ML INHALATION PRN (16:33)
[2023-05-02] MEDS ORDERED: DEXTROSE 50% SYRINGE 50 ML IVP PRN ×2 (16:38)
--- NOTE | 2023-05-02 16:40 | P.HPIM ---
History of Present Illness H&P Date: 05/02/23 Patient is a 53-year-old male with history of CAD, type 2 diabetes, COPD, history of DVT, peripheral vascular disease, chronic lower extremity edema presenting with chest pain. He claims that he was at a hockey team yesterday, and developed sudden onset left-sided chest pain which was persistent. Denies any radiation, nausea, vomiting, abdominal pain, palpitations, recent travel or immobilization. He claims that he is able to ambulate. He denies any further worsening of his lower extremity wounds, does not see wound care at the moment, changing dressing every 2 days. In the ED, temperature was 100.6, pulse 106, respiratory rate 20, blood pressure 155/76, saturating at 92% on room air. WBC 4.3, hemoglobin 13.5, sodium 130, creatinine 1.25, glucose 287, calcium 8.3, troponin 0.076, proBNP 9000, respiratory viral panel negative. Chest x-ray shows mild interstitial op acities. EKG shows sinus rhythm with nonspecific ST-T wave changes. Patient being admitted for CHF exacerbation. Cardiology consulted. Pertinent positives and negatives as discussed in HPI, a complete review of systems was performed and all other systems are negative. Patient seen and examined at bedside. Vital signs reviewed General: nontoxic, no distress, appears at stated age Derm: warm, dry Head: atraumatic, normocephalic, symmetric Eyes: EOMI, no lid lag, anicteric sclera, pupils equal round reactive to light ENT: Nose and ears atraumatic Neck: No thyromegaly, supple Mouth: no lip lesion, mucus membranes moist Cardiovascular: S1S2 reg, no murmur, no edema Lungs: clear to auscultation bilateral, no rhonchi, no rales, no wheeze, no accessory muscle use Abdominal: soft, nontender to palpation, no guarding, no appreciable organomegaly Ext: no gross muscle atrophy, muscle strength muscle strength 5 out of 5 in all 4 extremities, no contractures Neuro: CN II-XII grossly intact Psych: Alert, oriented, appropriate affect Assessment/Plan: Active: Chest pain Acute CHF exacerbation, last known EF was around 35% History of CAD -Status post aspirin, given 40 mg IV Lasix in the ED, on topical nitroglycerin -Continue home aspirin, statin and Zetia -Continue IV Lasix 40 mg twice a day,monitor renal function and electrolytes -I's and O's, daily weights -Cardiology consulted -Trend troponin -Continue telemetry Sepsis, unclear source -Does have a history of recent lower extremity cellulitis -Hx of LE DVT unsure if provoked on peripheral -Blood cultures pending -CRP, ESR, pro-calcitonin ordered -Wound care consult -LE doppler pending Insulin-dependent diabetes -Continue home Lantus, sliding scale insulin Chronic: COPD, not in exacerbation Hypertension Dyslipidemia The patient is admitted with an anticipated greater than 2 midnight stay as inpatient status for evaluation of chest pain. Surrogate decision-maker: Father CODE STATUS: full code DVT prophylaxis: sq heparin Anticipated discharge date: pending clinical course Anticipated discharge place: pending clinical course A total of 55 minutes was spent on the care of this complex patient more than 50% of the time was spent in counseling and care coordination. Past Medical History Past Medical History: Asthma, Coronary Artery Disease (CAD), COPD, Deep Vein Thrombosis (DVT), GERD/Reflux, Hyperlipidemia, Hypertension, Myocardial Infarction ([place]), Renal Disease, Sleep Apnea/CPAP/BIPAP, Vascular Disorder Additional Past Medical History / Comment(s): 02/20/16 [place] with cardiac [id number] wore life vest for 7 weeks, 2010 DVT RIGHT leg, bilateral lower leg cellulitis, bilateral varicose veins, PVD, NIDDM type II, BERTRAND with CPAP. UTI Mar 2021, cellulitis with open wounds on bilateral lower legs being treated in wound center 2021 Last Myocardial Infarction Date:: 02/20/16 History of Any Multi-Drug Resistant Organisms: MRSA Date of last positivie culture/infection: 2017 MDRO Source:: right leg Past Surgical History: Heart Catheterization With Stent Additional Past Surgical History / Comment(s): circumcision Additional Past Anesthesia/Blood Transfusion Reaction / Comment(s): Pt has never had anesthesia Date of Last Stent Placement:: 02/20/16 Past Psychological History: No Psychological Hx Reported Smoking Status: Former smoker Past Alcohol Use History: None Reported Past Drug Use History: None Reported - Past Family History Father Family Medical History: Coronary Artery Disease (CAD), Diabetes Mellitus, Eye Disorder Additional Family Medical History / Comment(s): Bradycardia, blind. Father is in his early 70's. Mother Family Medical History: Coronary Artery Disease (CAD), Diabetes Mellitus Additional Family Medical History / Comment(s): Benign brain tumor. Mother is in her early 70's Medications and Allergies Home Medications Medication Instructions Recorded Confirmed Type Atorvastatin [Lipitor] 80 mg PO HS #30 tab 02/27/16 05/02/23 Rx Losartan Potassium [Cozaar] 100 mg PO DAILY 11/25/16 05/02/23 History Ipratropium/Albuterol Sulfate 1 puff INHALATION RT-QID 01/12/19 05/02/23 History [Combivent Respimat Inhaler] metFORMIN HCL [Glucophage] 1,000 mg PO BID 01/12/19 05/02/23 History Omeprazole 20 mg PO DAILY 03/14/19 05/02/23 History Aspirin EC [Ecotrin Low Dose] 81 mg PO DAILY 10/17/20 05/02/23 History Albuterol Nebulized [Ventolin 2.5 mg INHALATION RT-Q4H PRN 01/15/22 05/02/23 History Nebulized] Fluticasone Propion/Salmeterol 1 puff INHALATION RT-BID 01/15/22 05/02/23 History [Wixela 250-50 Inhub] Insulin Glargine,Hum.rec.anlog 40 unit SQ DAILY 01/15/22 05/02/23 History [Lantus Solostar Pen] Ipratropium [place] 0.2 mg INHALATION RT-Q6H PRN 01/15/22 05/02/23 History Multivitamins, Thera [Multivitamin 1 tab PO DAILY 01/15/22 05/02/23 History (formulary)] carvediloL 37.5 mg PO BID 01/15/22 05/02/23 History hydrALAZINE HCL [Apresoline] 25 mg PO TID 01/15/22 05/02/23 History Empagliflozin [Jardiance] 25 mg PO DAILY 05/02/23 05/02/23 History Allergies Allergy/AdvReac Type Severity Reaction Status Date / Time tetracycline Allergy Rash/Hives Verified 05/02/23 16:35 Physical Exam Vitals: Vital Signs Temp Pulse Resp BP Pulse Ox 05/02/23 16:35 99.1 F 72 18 133/86 96 05/02/23 13:20 87 18 146/87 93 L 05/02/23 11:45 100.6 F H 97 20 155/76 93 L 05/02/23 11:08 98.2 F 106 H 16 170/118 96 Intake and Output 05/02/23 05/02/23 05/02/23 06:59 14:59 22:59 Other: Weight 154.221 kg Results CBC & Chem 7: 05/02/23 11:31 05/02/23 11:31 Labs: Abnormal Lab Results - Last 24 Hours (Table) 05/02/23 05/02/23 05/02/23 Range/Units 11:31 11:31 11:31 Lymphocytes # 0.4 L (1.0-4.8) k/uL Sodium 130 L (137-145) mmol/L Glucose 287 H (74-99) mg/dL Calcium 8.3 L (8.4-10.2) mg/dL Troponin I 0.076 H* (0.000-0.034) ng/mL Total Protein 5.3 L (6.3-8.2) g/dL Albumin 2.6 L (3.5-5.0) g/dL Urine Protein (Negative) Urine Glucose (UA) (Negative) Urine Blood (Negative) Hyaline Casts (0-2) /lpf Urine Mucus (None) /hpf 05/02/23 Range/Units 13:25 Lymphocytes # (1.0-4.8) k/uL Sodium (137-145) mmol/L Glucose (74-99) mg/dL Calcium (8.4-10.2) mg/dL Troponin I (0.000-0.034) ng/mL Total Protein (6.3-8.2) g/dL Albumin (3.5-5.0) g/dL Urine Protein 3+ H (Negative) Urine Glucose (UA) 4+ H (Negative) Urine Blood Moderate H (Negative) Hyaline Casts 3 H (0-2) /lpf Urine Mucus Rare H (None) /hpf
[2023-05-02 17:54] LABS: Glucose,Whole Blood 167 mg/dL (70-110)
[2023-05-02] MEDS: INSULIN ASPART (NovoLOG) 100 UNIT/ML VIAL SQ SCH ×2 (17:59→21:05)
[2023-05-02] MEDS: carvediloL 12.5 MG TAB PO SCH (17:59)
--- NOTE | 2023-05-02 18:00 | US ---
EXAMINATION TYPE: US venous doppler duplex LE BI DATE OF EXAM: 05/02/2023 5:40 PM COMPARISON: 01/16/2023 CLINICAL INDICATION: Male, 53 years old with history of hx of DVT, edema; Bilateral leg edema Portable EC exam SIDE PERFORMED: Bilateral TECHNIQUE: The lower extremity deep venous system is examined utilizing real time linear array sonog raquel with graded compression, doppler sonography and color-flow sonography. VESSELS IMAGED: Common Femoral Vein Deep Femoral Vein Greater Saphenous Vein * Femoral Vein Popliteal Vein Small Saphenous Vein * Proximal Calf Veins (* superficial vessels) Limited due to patient body habitus and edema Limited compressions due to patient unable to tolerate Right Leg: Negative for acute DVT Left Leg: Negative for acute DVT IMPRESSION: Grayscale, color doppler, spectral doppler imaging performed of the deep veins of the lo wer extremities. There is normal flow, compressibility, vascular waveforms.
[2023-05-02] MEDS: NITROGLYCERIN OINT 1 INCH/GM PACKET TOPICAL SCH (18:05)
[2023-05-02] MEDS: IPRATROPIUM-ALBUTEROL 3 ML NEB INHALATION SCH (19:25)
[2023-05-02] MEDS: SYMBICORT 80-4.5 MCG INHALER INHALATION SCH (19:25)
[2023-05-02] MEDS: ATORVASTATIN 80 MG TAB PO SCH (21:17)
[2023-05-02] MEDS: FUROSEMIDE 10 MG/ML 4 ML VIAL IV SCH (21:17)
[2023-05-02] MEDS: hydrALAZINE HCL 25 MG TAB PO SCH (21:17)
[2023-05-03 00:01] LABS: Glucose,Whole Blood 209 mg/dL (70-110)
[2023-05-03] MEDS: NITROGLYCERIN OINT 1 INCH/GM PACKET TOPICAL SCH ×5 (00:05→23:54)
[2023-05-03 05:56] LABS: Glucose,Whole Blood 206 mg/dL (70-110)
[2023-05-03] MEDS: INSULIN ASPART (NovoLOG) 100 UNIT/ML VIAL SQ SCH ×4 (06:07→20:57)
[2023-05-03] MEDS: carvediloL 12.5 MG TAB PO SCH ×2 (06:11→17:12)
[2023-05-03] MEDS: INSULIN DETEMIR (LEVEMIR) 100 UNIT/ML SYR SQ SCH (06:52)
[2023-05-03] MEDS ORDERED: ASPIRIN 325 MG TAB PO SCH (09:00)
[2023-05-03] MEDS ORDERED: LOSARTAN 50 MG TAB PO SCH (09:00)
[2023-05-03] MEDS: SYMBICORT 80-4.5 MCG INHALER INHALATION SCH ×2 (09:01→21:06)
[2023-05-03] MEDS: IPRATROPIUM-ALBUTEROL 3 ML NEB INHALATION SCH ×4 (09:01→21:06)
[2023-05-03] MEDS: ASPIRIN 81 MG PO SCH (09:16)
[2023-05-03] MEDS: MULTIVITAMINS, THERA 1 EACH TAB PO SCH (09:16)
[2023-05-03] MEDS: PANTOPRAZOLE 40 MG TABLET PO SCH (09:16)
[2023-05-03] MEDS: hydrALAZINE HCL 25 MG TAB PO SCH (09:17)
[2023-05-03] MEDS: FUROSEMIDE 10 MG/ML 4 ML VIAL IV SCH ×2 (09:17→20:57)
[2023-05-03 10:40] LABS: African American GFR (CKD) 66 (>60 ml/min/1.73 sqM); Anion Gap 3 mmol/L; Blood Urea Nitrogen 20 mg/dL (9-20); Calcium 8.2 mg/dL (8.4-10.2); Carbon Dioxide 28 mmol/L (22-30); Chloride 100 mmol/L (98-107); Glucose 208 mg/dL (74-99); Magnesium 1.8 mg/dL (1.6-2.3); Non-African American GFR(CKD) 57 (>60 ml/min/1.73 sqM); Sodium 131 mmol/L (137-145)
[2023-05-03 11:51] LABS: Glucose,Whole Blood 184 mg/dL (70-110)
[2023-05-03 13:45] LABS: Chol/HDL Ratio 3.18 Ratio; LDL Cholesterol,Calculated 102.3 mg/dL (0.0-131.0); VLDL Calculation 17.64 mg/dL (5.00-40.00)
--- NOTE | 2023-05-03 15:27 | P.PN ---
Subjective Progress Note Date: 05/03/23 Hospital Course: 53-year-old male with history of CAD, type 2 diabetes, COPD, history of DVT, peripheral vascular disease, chronic lower extremity edema presenting with chest pain. In the ED, temperature was 100.6, pulse 106, respiratory rate 20, blood pressure 155/76, saturating at 92% on room air. WBC 4.3, hemoglobin 13.5, sodium 130, creatinine 1.25, glucose 287, calcium 8.3, troponin 0.076, proBNP 9000, respiratory viral panel negative. Chest x-ray shows mild interstitial opacities. EKG shows sinus rhythm with nonspecific ST-T wave changes. Patient being admitted for CHF exacerbation. Cardiology consulted. Subjective: Patient seen and examined at bedside. No acute events overnight. Pertinent positives and negatives as discussed above, a complete review of systems was performed and all other systems are negative. Vitals Signs Reviewed. General: nontoxic, no distress, appears at stated age, morbid obesity Derm: warm, dry Head: atraumatic, normocephalic, symmetric Eyes: EOMI, no lid lag, anicteric sclera, pupils equal round reactive to light ENT: Nose and ears atraumatic Neck: No thyromegaly, supple Mouth: no lip lesion, mucus membranes moist Cardiovascular: S1S2 reg, no murmur, no edema Lungs: Bilateral rales, no wheeze, no accessory muscle use Abdominal: soft, nontender to palpation, no guarding, no appreciable organomegaly Ext: no gross muscle atrophy, muscle strength muscle strength 5 out of 5 in all 4 extremities, no contractures Neuro: CN II-XII grossly intact Psych: Alert, oriented, appropriate affect Data Reviewed Today: Pertinent Labs: Sodium 131, creatinine 1.4, troponin peaked at 0.073, blood sugars range between 167-206, magnesium 1.8 Imaging: No new imaging Assessment and Plan: Active: Chest pain Acute CHF exacerbation, last known EF was around 35% History of CAD -Continue home aspirin, statin and Zetia -Also on topical nitroglycerin -Continue IV Lasix 40 mg twice a day,monitor renal function and electrolytes -I's and O's, daily weights -Cardiology consulted, pending recommendations, started on losartan -Continue telemetry -Echocardiogram still pending Isolated episode of fever -Does have a history of recent lower extremity cellulitis -Hx of LE DVT unsure if provoked on peripheral -Blood cultures pending -Elevated CRP and elevated pro calcitonin -Wound care consult -LE doppler negative for DVT -Patient has been afebrile since admission Insulin-dependent diabetes, A1c 10 -Continue home Lantus, sliding scale insulin Chronic: COPD, not in exacerbation Hypertension Dyslipidemia DVT ppx: Subcu heparin Code status: Full code Anticipated discharge place: Pending clinical course Anticipated discharge time: Pending clinical course Objective - Vital Signs Vital signs: Vital Signs Temp 98.6 F 05/03/23 11:40 Pulse 66 05/03/23 12:27 Resp 20 05/03/23 11:40 BP 104/68 05/03/23 11:40 Pulse Ox 91 L 05/03/23 11:40 FiO2 Intake & Output 05/02/23 05/03/23 05/03/23 18:59 06:59 18:59 Intake Total 180 Balance 180 Weight 154.221 kg 154.221 kg Intake: Oral 180 Other: Voiding Method Toilet # Voids 1 - Labs CBC & Chem 7: 05/02/23 11:31 05/03/23 07:38 Labs: Abnormal Lab Results - Last 24 Hours (Table) 05/02/23 05/02/23 05/02/23 Range/Units 11:31 11:31 13:25 Sodium (137-145) mmol/L Creatinine (0.66-1.25) mg/dL Glucose (74-99) mg/dL POC Glucose (mg/dL) (70-110) mg/dL Hemoglobin A1c (<=6.0) % Calcium (8.4-10.2) mg/dL Troponin I (0.000-0.034) ng/mL C-Reactive Protein 13.5 H (<1.0) mg/dL Procalcitonin 0.18 H (0.02-0.09) ng/mL Urine Protein 3+ H (Negative) Urine Glucose (UA) 4+ H (Negative) Urine Blood Moderate H (Negative) Hyaline Casts 3 H (0-2) /lpf Urine Mucus Rare H (None) /hpf 05/02/23 05/02/23 05/02/23 Range/Units 15:26 17:52 18:35 Sodium (137-145) mmol/L Creatinine (0.66-1.25) mg/dL Glucose (74-99) mg/dL POC Glucose (mg/dL) 167 H (70-110) mg/dL Hemoglobin A1c (<=6.0) % Calcium (8.4-10.2) mg/dL Troponin I 0.073 H* 0.065 H* (0.000-0.034) ng/mL C-Reactive Protein (<1.0) mg/dL Procalcitonin (0.02-0.09) ng/mL Urine Protein (Negative) Urine Glucose (UA) (Negative) Urine Blood (Negative) Hyaline Casts (0-2) /lpf Urine Mucus (None) /hpf 05/02/23 05/03/23 05/03/23 Range/Units 23:59 05:55 07:38 Sodium 131 L (137-145) mmol/L Creatinine 1.40 H (0.66-1.25) mg/dL Glucose 208 H (74-99) mg/dL POC Glucose (mg/dL) 209 H 206 H (70-110) mg/dL Hemoglobin A1c (<=6.0) % Calcium 8.2 L (8.4-10.2) mg/dL Troponin I (0.000-0.034) ng/mL C-Reactive Protein (<1.0) mg/dL Procalcitonin (0.02-0.09) ng/mL Urine Protein (Negative) Urine Glucose (UA) (Negative) Urine Blood (Negative) Hyaline Casts (0-2) /lpf Urine Mucus (None) /hpf 05/03/23 05/03/23 Range/Units 07:41 11:49 Sodium (137-145) mmol/L Creatinine (0.66-1.25) mg/dL Glucose (74-99) mg/dL POC Glucose (mg/dL) 184 H (70-110) mg/dL Hemoglobin A1c 10.0 H (<=6.0) % Calcium (8.4-10.2) mg/dL Troponin I (0.000-0.034) ng/mL C-Reactive Protein (<1.0) mg/dL Procalcitonin (0.02-0.09) ng/mL Urine Protein (Negative) Urine Glucose (UA) (Negative) Urine Blood (Negative) Hyaline Casts (0-2) /lpf Urine Mucus (None) /hpf
[2023-05-03 16:15] LABS: Glucose,Whole Blood 174 mg/dL (70-110)
[2023-05-03] MEDS: HEPARIN SODIUM,PORCINE 5,000 UNIT/ML 1 ML VIAL SQ SCH ×2 (17:12→23:54)
--- NOTE | 2023-05-03 19:15 | P.CRDCN ---
History of Present Illness Consult date: 05/03/23 History of present illness: HISTORY OF PRESENTING ILLNESS 53-year-old male with history of CAD, type 2 diabetes, COPD, DVT, PAD, chronic lower extremity edema with chronic skin changes, presented to the hospital with substernal chest pressure. On admission his BNP was 9000, troponin was 0.07, 0.07, 0.06. Creatinine was 1.4. Sodium 130. Baseline creatinine is around 1.0, hemoglobin 13.5 BP 104/68, pulse 58, lexiscan 2017 showed an EF of around 40%, inferolateral infarct Chest x-ray on this admission showed mild pulmonary congestion. ECG showed sinus rhythm with IVCD and nonspecific T-wave inversions. REVIEW OF SYSTEMS 14 point review of system is negative except what is mentioned above in HPI. PHYSICAL EXAMINATION Vital signs reviewed. Head: Normocephalic. Eyes: Sclerae nonicteric. Neck: Brisk carotid upstroke, no jugular venous distention. Lungs: Clear to auscultation. Heart: Regular rate and rhythm, S1-S2, no S3, no murmur or rub. Abdomen: Soft nontender, positive bowel sounds no organomegaly. Extremities: No edema, intact distal pulses. 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 Due to higher creat, Hold further dose today, start from tomorrow AM Lasix 40mg IV daily. Continue aspirin 81mg , atorvastatin 80mg Reduce losartan to 50 mg daily due to low blood pressure and CHAVO Monitor renal function, wound care Past Medical History Past Medical History: Asthma, Coronary Artery Disease (CAD), COPD, Deep Vein Thrombosis (DVT), GERD/Reflux, Hyperlipidemia, Hypertension, Myocardial Infarction ([place]), Renal Disease, Sleep Apnea/CPAP/BIPAP, Vascular Disorder Additional Past Medical History / Comment(s): 02/20/16 [place] with cardiac [id number] wore life vest for 7 weeks, 2010 DVT RIGHT leg, bilateral lower leg cellulitis, bilateral varicose veins, PVD, NIDDM type II, BERTRAND with CPAP. UTI Mar 2021, cellulitis with open wounds on bilateral lower legs being treated in wound center 2021 Last Myocardial Infarction Date:: 02/20/16 History of Any Multi-Drug Resistant Organisms: MRSA Date of last positivie culture/infection: 2017 MDRO Source:: bilateral legs Past Surgical History: Heart Catheterization With Stent Additional Past Surgical History / Comment(s): circumcision Additional Past Anesthesia/Blood Transfusion Reaction / Comment(s): Pt has never had anesthesia Date of Last Stent Placement:: 02/20/16 Smoking Status: Former smoker - Past Family History Father Family Medical History: Coronary Artery Disease (CAD), Diabetes Mellitus, Eye Disorder Additional Family Medical History / Comment(s): Bradycardia, blind. Father is in his early 70's. Mother Family Medical History: Coronary Artery Disease (CAD), Diabetes Mellitus Additional Family Medical History / Comment(s): Benign brain tumor. Mother is in her early 70's Medications and Allergies Home Medications Medication Instructions Recorded Confirmed Type Atorvastatin [Lipitor] 80 mg PO HS #30 tab 02/27/16 05/02/23 Rx Losartan Potassium [Cozaar] 100 mg PO DAILY 11/25/16 05/02/23 History Ipratropium/Albuterol Sulfate 1 puff INHALATION RT-QID 01/12/19 05/02/23 History [Combivent Respimat Inhaler] metFORMIN HCL [Glucophage] 1,000 mg PO BID 01/12/19 05/02/23 History Omeprazole 20 mg PO DAILY 03/14/19 05/02/23 History Aspirin EC [Ecotrin Low Dose] 81 mg PO DAILY 10/17/20 05/02/23 History Albuterol Nebulized [Ventolin 2.5 mg INHALATION RT-Q4H PRN 01/15/22 05/02/23 History Nebulized] Fluticasone Propion/Salmeterol 1 puff INHALATION RT-BID 01/15/22 05/02/23 History [Wixela 250-50 Inhub] Insulin Glargine,Hum.rec.anlog 40 unit SQ DAILY 01/15/22 05/02/23 History [Lantus Solostar Pen] Ipratropium [place] 0.2 mg INHALATION RT-Q6H PRN 01/15/22 05/02/23 History Multivitamins, Thera [Multivitamin 1 tab PO DAILY 01/15/22 05/02/23 History (formulary)] carvediloL 37.5 mg PO BID 01/15/22 05/02/23 History hydrALAZINE HCL [Apresoline] 25 mg PO TID 01/15/22 05/02/23 History Empagliflozin [Jardiance] 25 mg PO DAILY 05/02/23 05/02/23 History Allergies Allergy/AdvReac Type Severity Reaction Status Date / Time tetracycline Allergy Rash/Hives Verified 05/02/23 16:35 Physical Exam Vitals: Vital Signs Temp Pulse Pulse Resp BP BP Pulse Ox 05/03/23 12:27 66 05/03/23 12:19 63 05/03/23 11:40 98.6 F 58 L 20 104/68 91 L 05/03/23 09:15 68 05/03/23 09:04 92 L 05/03/23 09:01 61 05/03/23 08:00 99.7 F H 66 20 105/68 91 L 05/03/23 04:00 99.4 F 67 16 123/72 94 L 05/03/23 02:19 98.6 F 74 18 136/79 95 05/02/23 20:00 18 05/02/23 19:37 65 05/02/23 19:27 65 05/02/23 18:00 99.0 F 75 18 145/92 93 L 05/02/23 17:35 72 18 147/89 93 L 05/02/23 16:35 99.1 F 72 18 133/86 96 Intake and Output 05/03/23 05/03/23 05/03/23 06:59 14:59 22:59 Intake Total 180 Balance 180 Intake: Oral 180 Other: Voiding Method Toilet # Voids 1 Weight 154.221 kg Results 05/02/23 11:31 05/03/23 07:38 Cardiac Enzymes 05/02/23 05/02/23 Range/Units 15:26 18:35 Troponin I 0.073 H* 0.065 H* (0.000-0.034) ng/mL Lipids 05/03/23 Range/Units 07:41 Triglycerides 88.20 (0.00-149.00) mg/dL Cholesterol 175.00 (0.00-200.00) mg/dL HDL Cholesterol 55.10 (40.00-60.00) mg/dL Cholesterol/HDL Ratio 3.18 Ratio Comprehensive Metabolic Panel 05/03/23 Range/Units 07:38 Sodium 131 L (137-145) mmol/L Potassium 4.0 (3.5-5.1) mmol/L Chloride 100 (98-107) mmol/L Carbon Dioxide 28 (22-30) mmol/L BUN 20 (9-20) mg/dL Creatinine 1.40 H (0.66-1.25) mg/dL Glucose 208 H (74-99) mg/dL Calcium 8.2 L (8.4-10.2) mg/dL Current Medications Generic Name Dose Route Start Last Admin Trade Name Freq PRN Reason Stop Dose Admin Albuterol Sulfate 2.5 mg 05/02/23 16:33 Albuterol Nebulized 2.5 Mg/3 Ml INHALATION RT-Q4H PRN Shortness Of Breath Albuterol/Ipratropium 3 ml 05/02/23 20:00 05/03/23 12:19 Ipratropium-Albuterol 3 Ml Neb INHALATION 3 ml RT-QID NAWAF Administration Aspirin 81 mg 05/03/23 09:00 05/03/23 09:16 Aspirin 81 Mg PO 81 mg DAILY NAWAF Administration Atorvastatin Calcium 80 mg 05/02/23 21:00 05/02/23 21:17 Atorvastatin 80 Mg Tab PO 80 mg HS NAWAF Administration Budesonide/Formoterol Fumarate 2 puff 05/02/23 20:00 05/03/23 09:01 Symbicort 80-4.5 Mcg Inhaler INHALATION 2 puff RT-BID NAWAF Administration Carvedilol 37.5 mg 05/02/23 17:30 05/03/23 06:11 Carvedilol 12.5 Mg Tab PO 37.5 mg AC-BID NAWAF Administration Dextrose/Water 25 ml 05/02/23 16:38 Dextrose 50% Syringe 50 Ml IVP PER PROTOCOL PRN Hypoglycemia Protocol Dextrose/Water 50 ml 05/02/23 16:38 Dextrose 50% Syringe 50 Ml IVP PER PROTOCOL PRN Hypoglycemia Protocol Furosemide 40 mg 05/02/23 21:00 05/03/23 09:17 Furosemide 10 Mg/Ml 4 Ml Vial IV 40 mg Q12HR NAWAF Administration Heparin Sodium (Porcine) 5,000 unit 05/03/23 16:00 Heparin Sodium,Porcine 5,000 Unit/Ml 1 Ml Vial SQ Q8HR [facility] Insulin Aspart 0 unit 05/02/23 17:30 05/03/23 12:49 Insulin Aspart (Novolog) 100 Unit/Ml Vial SQ 2 unit ACHS [facility] Administration Protocol Insulin Detemir 40 unit 05/03/23 07:00 05/03/23 06:52 Insulin Detemir (Levemir) 100 Unit/Ml Syr SQ 40 unit DAILY@0700 NAWAF Administration Losartan Potassium 50 mg 05/04/23 09:00 Losartan 50 Mg Tab PO DAILY [facility] Multivitamins 1 each 05/03/23 09:00 05/03/23 09:16 Multivitamins, Thera 1 Each Tab PO 1 each DAILY NAWAF Administration Nitroglycerin 0.4 mg 05/02/23 14:34 Nitroglycerin Sl Tabs 0.4 Mg Tab SUBLINGUAL Q5M PRN Chest Pain Nitroglycerin 1 inch 05/02/23 18:00 05/03/23 12:50 Nitroglycerin Oint 1 Inch/Gm Packet TOPICAL 1 inch Q6HR NAWAF Administration Pantoprazole Sodium 40 mg 05/03/23 09:00 05/03/23 09:16 Pantoprazole 40 Mg Tablet PO 40 mg DAILY [facility] Administration Intake and Output 05/03/23 05/03/23 05/03/23 06:59 14:59 22:59 Intake Total 180 Balance 180 Intake: Oral 180 Other: Voiding Method Toilet # Voids 1 Weight 154.221 kg 05/02/23 11:31 05/03/23 07:38
[2023-05-03 20:33] LABS: Glucose,Whole Blood 162 mg/dL (70-110)
[2023-05-03] MEDS: ATORVASTATIN 80 MG TAB PO SCH (20:57)
[2023-05-04 06:12] LABS: Glucose,Whole Blood 213 mg/dL (70-110)
[2023-05-04] MEDS: NITROGLYCERIN OINT 1 INCH/GM PACKET TOPICAL SCH ×2 (06:37→11:51)
[2023-05-04] MEDS: carvediloL 12.5 MG TAB PO SCH ×2 (06:37→17:19)
[2023-05-04] MEDS: INSULIN DETEMIR (LEVEMIR) 100 UNIT/ML SYR SQ SCH (06:37)
[2023-05-04] MEDS: INSULIN ASPART (NovoLOG) 100 UNIT/ML VIAL SQ SCH ×4 (06:37→21:36)
[2023-05-04 08:23] LABS: Basophils % (A) 0 %; Eosinophils # (A) 0.2 k/uL (0-0.7); Eosinophils % (A) 6 %; HCT 36.7 % (39.0-53.0); HGB 11.7 gm/dL (13.0-17.5); Lymphocytes # (A) 0.8 k/uL (1.0-4.8); Lymphocytes % (A) 27 %; MCH 28.3 pg (25.0-35.0); MCHC 31.8 g/dL (31.0-37.0); MCV 88.9 fL (80.0-100.0); Monocytes # (A) 0.2 k/uL (0-1.0); Monocytes % (A) 7 %; Neutrophils # (A) 1.7 k/uL (1.3-7.7); Neutrophils % (A) 57 %; Platelet Count 166 k/uL (150-450); RBC 4.13 m/uL (4.30-5.90); RDW 14.8 % (11.5-15.5)
[2023-05-04] MEDS: LOSARTAN 50 MG TAB PO SCH (08:24)
[2023-05-04] MEDS: MULTIVITAMINS, THERA 1 EACH TAB PO SCH (08:24)
[2023-05-04] MEDS: PANTOPRAZOLE 40 MG TABLET PO SCH (08:24)
[2023-05-04] MEDS: HEPARIN SODIUM,PORCINE 5,000 UNIT/ML 1 ML VIAL SQ SCH ×3 (08:25→21:36)
[2023-05-04] MEDS: ASPIRIN 81 MG PO SCH (08:25)
[2023-05-04] MEDS: IPRATROPIUM-ALBUTEROL 3 ML NEB INHALATION SCH ×4 (08:37→21:03)
[2023-05-04] MEDS: SYMBICORT 80-4.5 MCG INHALER INHALATION SCH ×2 (08:38→21:03)
[2023-05-04 08:57] LABS: African American GFR (CKD) 57 (>60 ml/min/1.73 sqM); Anion Gap 5 mmol/L; Blood Urea Nitrogen 23 mg/dL (9-20); Carbon Dioxide 30 mmol/L (22-30); Chloride 95 mmol/L (98-107); Glucose 194 mg/dL (74-99); Magnesium 1.8 mg/dL (1.6-2.3); Non-African American GFR(CKD) 49 (>60 ml/min/1.73 sqM); Potassium 3.5 mmol/L (3.5-5.1); Sodium 130 mmol/L (137-145)
[2023-05-04] MEDS ORDERED: FUROSEMIDE 10 MG/ML 4 ML VIAL IV SCH (09:00)
[2023-05-04 11:32] LABS: Glucose,Whole Blood 177 mg/dL (70-110)
--- NOTE | 2023-05-04 11:52 | P.CONS ---
History of Present Illness - Reason for Consult Consult date: 05/04/23 wound care - History of Present Illness This is a 53-year-old gentleman being seen on [address] for multiple open ulcerations to bilateral lower extremities. Patient has history of venous insufficiency with inflammation and ulceration. Patient denies utilizing his compression garments which he has had prescribed previously. Patient has multiple open ulcerations Limited to skin breakdown related to scratching. I'll ulceration show granulation throughout the wound bed with minimal slough. No tunneling or undermining. Patient has 2+ weeping edema to bilateral lower extremities. Patient's past medical history significant for asthma, coronary artery disease, COPD, DVT, GERD, hyperlipidemia, hypertension, [place], type 2 diabetes, obstructive sleep apnea, venous insufficiency. Review Of Systems: Constitutional: No fever, no chills, no night sweats. No weight change. No weakness, fatigue or lethargy. No daytime sleepiness. Integumentary:reports wounds, no lesions. No rash or pruritus. No unusual bruising. No change in hair or nails. Physical exam: General Appearance: Alert, cooperative, no distress, appears stated age. Skin: See HPI all other Skin color, texture, tugor normal, no rashes or lesions. Neurologic: Alert oriented x3 Assessment: 1. Nonpressure ulcerations of multiple areas of left lower extremity Limited to skin breakdown 2. Nonpressure ulceration multiple areas of right lower extremity Limited to skin breakdown 3. Chronic venous hypertension with inflammation and ulceration to bilateral lower extremities 4. Diabetes with skin ulceration Plan: 1. Apply bag balm and wrap with Bobby wrap for compression. Change daily. Continue to elevate legs at least 30 minutes 3 times a day above the heart. Do not sit with her legs dependent. Thank you for the consultation any questions please contact the wound care center DNP note has been reviewed and discussed with Dr. Livingston and the impression and plan of care has been directed as dictated. Past Medical History Past Medical History: Asthma, Coronary Artery Disease (CAD), COPD, Deep Vein Thrombosis (DVT), GERD/Reflux, Hyperlipidemia, Hypertension, Myocardial Infarction ([place]), Renal Disease, Sleep Apnea/CPAP/BIPAP, Vascular Disorder Additional Past Medical History / Comment(s): 02/20/16 [place] with cardiac aspjsn-Qyir-od wore life vest for 7 weeks, 2010 DVT RIGHT leg, bilateral lower leg cellulitis, bilateral varicose veins, PVD, NIDDM type II, BERTRAND with CPAP. UTI Mar 2021, cellulitis with open wounds on bilateral lower legs being treated in wound center 2021 Last Myocardial Infarction Date:: 02/20/16 History of Any Multi-Drug Resistant Organisms: MRSA Year Discovered:: 2018 MDRO Source:: bilateral legs Past Surgical History: Heart Catheterization With Stent Additional Past Surgical History / Comment(s): circumcision Additional Past Anesthesia/Blood Transfusion Reaction / Comm: Pt has never had anesthesia Date of Last Stent Placement:: 02/20/16 Smoking Status: Former smoker - Past Family History Father Family Medical History: Coronary Artery Disease (CAD), Diabetes Mellitus, Eye Disorder Additional Family Medical History / Comment(s): Bradycardia, blind. Father is in his early 70's. Mother Family Medical History: Coronary Artery Disease (CAD), Diabetes Mellitus Additional Family Medical History / Comment(s): Benign brain tumor. Mother is in her early 70's Medications and Allergies Home Medications Medication Instructions Recorded Confirmed Type Atorvastatin [Lipitor] 80 mg PO HS #30 tab 02/27/16 05/02/23 Rx Losartan Potassium [Cozaar] 100 mg PO DAILY 11/25/16 05/02/23 History Ipratropium/Albuterol Sulfate 1 puff INHALATION RT-QID 01/12/19 05/02/23 History [Combivent Respimat Inhaler] metFORMIN HCL [Glucophage] 1,000 mg PO BID 01/12/19 05/02/23 History Omeprazole 20 mg PO DAILY 03/14/19 05/02/23 History Aspirin EC [Ecotrin Low Dose] 81 mg PO DAILY 10/17/20 05/02/23 History Albuterol Nebulized [Ventolin 2.5 mg INHALATION RT-Q4H PRN 01/15/22 05/02/23 History Nebulized] Fluticasone Propion/Salmeterol 1 puff INHALATION RT-BID 01/15/22 05/02/23 History [Wixela 250-50 Inhub] Insulin Glargine,Hum.rec.anlog 40 unit SQ DAILY 01/15/22 05/02/23 History [Lantus Solostar Pen] Ipratropium [place] 0.2 mg INHALATION RT-Q6H PRN 01/15/22 05/02/23 History Multivitamins, Thera [Multivitamin 1 tab PO DAILY 01/15/22 05/02/23 History (formulary)] carvediloL 37.5 mg PO BID 01/15/22 05/02/23 History hydrALAZINE HCL [Apresoline] 25 mg PO TID 01/15/22 05/02/23 History Empagliflozin [Jardiance] 25 mg PO DAILY 05/02/23 05/02/23 History Allergies Allergy/AdvReac Type Severity Reaction Status Date / Time tetracycline Allergy Rash/Hives Verified 05/02/23 16:35 Physical Exam Vitals: Vital Signs Temp Pulse Pulse Resp BP Pulse Ox 05/04/23 08:52 62 18 05/04/23 08:38 60 18 95 05/04/23 08:21 98.1 F 60 18 112/73 94 L 05/04/23 04:00 64 18 130/83 95 05/04/23 02:00 61 20 05/04/23 00:00 61 20 119/75 92 L 05/03/23 21:19 62 05/03/23 21:06 59 L 05/03/23 20:00 65 20 132/86 98 05/03/23 16:36 98.3 F 56 L 20 113/74 93 L 05/03/23 16:23 64 05/03/23 16:11 60 05/03/23 12:27 66 05/03/23 12:19 63 Intake and Output 05/03/23 05/04/23 05/04/23 22:59 06:59 14:59 Intake Total 180 180 Output Total 600 500 Balance 180 -600 -320 Intake: Oral 180 180 Output: Urine 600 500 Other: Voiding Method Toilet Toilet Toilet Weight 154.2 kg Results CBC & Chem 7: 05/04/23 06:50 05/04/23 06:50 Labs: Abnormal Lab Results - Last 24 Hours (Table) 05/02/23 05/03/23 05/03/23 Range/Units 11:31 07:41 11:49 WBC (3.8-10.6) k/uL RBC (4.30-5.90) m/uL Hgb (13.0-17.5) gm/dL Hct (39.0-53.0) % Lymphocytes # (1.0-4.8) k/uL Sodium (137-145) mmol/L Chloride (98-107) mmol/L BUN (9-20) mg/dL Creatinine (0.66-1.25) mg/dL Glucose (74-99) mg/dL POC Glucose (mg/dL) 184 H (70-110) mg/dL Hemoglobin A1c 10.0 H (<=6.0) % Calcium (8.4-10.2) mg/dL Procalcitonin 0.18 H (0.02-0.09) ng/mL 05/03/23 05/03/23 05/04/23 Range/Units 16:14 20:32 06:11 WBC (3.8-10.6) k/uL RBC (4.30-5.90) m/uL Hgb (13.0-17.5) gm/dL Hct (39.0-53.0) % Lymphocytes # (1.0-4.8) k/uL Sodium (137-145) mmol/L Chloride (98-107) mmol/L BUN (9-20) mg/dL Creatinine (0.66-1.25) mg/dL Glucose (74-99) mg/dL POC Glucose (mg/dL) 174 H 162 H 213 H (70-110) mg/dL Hemoglobin A1c (<=6.0) % Calcium (8.4-10.2) mg/dL Procalcitonin (0.02-0.09) ng/mL 05/04/23 05/04/23 05/04/23 Range/Units 06:50 06:50 11:28 WBC 3.0 L (3.8-10.6) k/uL RBC 4.13 L (4.30-5.90) m/uL Hgb 11.7 L (13.0-17.5) gm/dL Hct 36.7 L (39.0-53.0) % Lymphocytes # 0.8 L (1.0-4.8) k/uL Sodium 130 L (137-145) mmol/L Chloride 95 L (98-107) mmol/L BUN 23 H (9-20) mg/dL Creatinine 1.59 H (0.66-1.25) mg/dL Glucose 194 H (74-99) mg/dL POC Glucose (mg/dL) 177 H (70-110) mg/dL Hemoglobin A1c (<=6.0) % Calcium 8.0 L (8.4-10.2) mg/dL Procalcitonin (0.02-0.09) ng/mL Microbiology - Last 24 Hours (Table) 05/02/23 12:20 Blood Culture - Preliminary Blood 05/02/23 12:05 Blood Culture - Preliminary Blood Assessment and Plan (1) Type 2 diabetes mellitus with other skin ulcer Current Visit: Yes Status: Acute Code(s): E11.622 - TYPE 2 DIABETES MELLITUS WITH OTHER SKIN ULCER; L98.499 - NON-PRESSURE CHRONIC ULCER OF SKIN OF SITES W UNSP SEVERITY SNOMED Code(s): 494006910 (2) Chronic venous hypertension (idiopathic) with ulcer and inflammation of bilateral lower extremity Current Visit: No Status: Acute Code(s): I87.333 - CHRONIC VENOUS HTN W ULCER AND INFLAM OF BILATERAL LOW EXTRM; L97.919 - NON-PRS CHRONIC ULC UNSP PRT OF R LOW LEG W UNSP SEVERITY; L97.929 - NON-PRS CHRONIC ULC UNSP PRT OF L LOW LEG W UNSP SEVERITY SNOMED Code(s): 272440851303308 (3) Non-healing ulcer of multiple sites of lower extremity, limited to breakdown of skin Current Visit: Yes Status: Acute Code(s): L97.901 - NON-PRS CHR ULC UNSP PRT OF UNSP LOW LEG LMT TO BRKDWN SKIN SNOMED Code(s): 16221554
[2023-05-04] MEDS: PETROLAT,WHITE/LAN/8-HYDROXYQU 227 GM OINT TOPICAL SCH (13:11)
--- NOTE | 2023-05-04 13:13 | P.PN ---
Subjective Progress Note Date: 05/04/23 Hospital Course: 53-year-old male with history of CAD, type 2 diabetes, COPD, history of DVT, peripheral vascular disease, chronic lower extremity edema presenting with chest pain. In the ED, temperature was 100.6, pulse 106, respiratory rate 20, blood pressure 155/76, saturating at 92% on room air. WBC 4.3, hemoglobin 13.5, sodium 130, creatinine 1.25, glucose 287, calcium 8.3, troponin 0.076, proBNP 9000, respiratory viral panel negative. Chest x-ray shows mild interstitial opacities. EKG shows sinus rhythm with nonspecific ST-T wave changes. Patient being admitted for CHF exacerbation. Cardiology consulted. Patient was started on IV Lasix. Renal function worsening, IV Lasix decreased. Echocardiogram pending. Subjective: Patient seen and examined at bedside. No acute events overnight. Claims that breathing is better, still making urine. Pertinent positives and negatives as discussed above, a complete review of systems was performed and all other systems are negative. Vitals Signs Reviewed. General: nontoxic, no distress, appears at stated age, morbid obesity Derm: warm, dry, lower extremity stasis dermatitis Head: atraumatic, normocephalic, symmetric Eyes: EOMI, no lid lag, anicteric sclera, pupils equal round reactive to light ENT: Nose and ears atraumatic Neck: No thyromegaly, supple Mouth: no lip lesion, mucus membranes moist Cardiovascular: S1S2 reg, no murmur, no edema Lungs: Bilateral rales, no wheeze, no accessory muscle use Abdominal: soft, nontender to palpation, no guarding, no appreciable organomegaly Ext: no gross muscle atrophy, muscle strength muscle strength 5 out of 5 in all 4 extremities, no contractures Neuro: CN II-XII grossly intact Psych: Alert, oriented, appropriate affect Data Reviewed Today: Pertinent Labs: WBC 3, hemoglobin 11.7, sodium 1:30, chloride 95, bicarb 30, creatinine 1.59, magnesium 1.8, blood sugars range between 160-213 Imaging: Chest x-ray independently interpreted, shows interstitial opacities, slightly improved from admission Assessment and Plan: Active: Atypical chest pain Acute CHF exacerbation, last known EF was around 35% History of CAD Acute kidney injury, nonoliguric -Continue home aspirin, statin and Zetia -Topical Nitroglycerin discontinued -Cardiology following, IV Lasix switched to oral 40 mg daily -I's and O's, daily weights -Continue telemetry -Echocardiogram still pending -On a reduced dose of losartan at 50 mg daily, also on Coreg 37.5 mg twice a day -Repeat BMP tomorrow, acute kidney injury likely in the setting of over diuresis Isolated episode of fever -Blood cultures negative from today -Possibly in the setting of atelectasis -Wound care following -LE doppler negative for DVT -Patient has been afebrile since admission Insulin-dependent diabetes, A1c 10 -Continue home Lantus, sliding scale insulin Chronic: COPD, not in exacerbation Hypertension Dyslipidemia DVT ppx: Subcu heparin Code status: Full code Anticipated discharge place: Pending clinical course Anticipated discharge time: Pending clinical course Objective - Vital Signs Vital signs: Vital Signs Temp 97.9 F 05/04/23 11:48 Pulse 68 05/04/23 11:57 Resp 18 05/04/23 11:57 BP 117/76 05/04/23 11:48 Pulse Ox 95 05/04/23 11:48 FiO2 Intake & Output 05/03/23 05/04/23 05/04/23 18:59 06:59 18:59 Intake Total 360 180 Output Total 600 500 Balance 360 -600 -320 Weight 154.2 kg Intake: Oral 360 180 Output: Urine 600 500 Other: Voiding Method Toilet Toilet # Voids 1 - Labs CBC & Chem 7: 05/04/23 06:50 05/04/23 06:50 Labs: Abnormal Lab Results - Last 24 Hours (Table) 05/02/23 05/03/23 05/03/23 Range/Units 11:31 07:41 16:14 WBC (3.8-10.6) k/uL RBC (4.30-5.90) m/uL Hgb (13.0-17.5) gm/dL Hct (39.0-53.0) % Lymphocytes # (1.0-4.8) k/uL Sodium (137-145) mmol/L Chloride (98-107) mmol/L BUN (9-20) mg/dL Creatinine (0.66-1.25) mg/dL Glucose (74-99) mg/dL POC Glucose (mg/dL) 174 H (70-110) mg/dL Hemoglobin A1c 10.0 H (<=6.0) % Calcium (8.4-10.2) mg/dL Procalcitonin 0.18 H (0.02-0.09) ng/mL 05/03/23 05/04/23 05/04/23 Range/Units 20:32 06:11 06:50 WBC 3.0 L (3.8-10.6) k/uL RBC 4.13 L (4.30-5.90) m/uL Hgb 11.7 L (13.0-17.5) gm/dL Hct 36.7 L (39.0-53.0) % Lymphocytes # 0.8 L (1.0-4.8) k/uL Sodium (137-145) mmol/L Chloride (98-107) mmol/L BUN (9-20) mg/dL Creatinine (0.66-1.25) mg/dL Glucose (74-99) mg/dL POC Glucose (mg/dL) 162 H 213 H (70-110) mg/dL Hemoglobin A1c (<=6.0) % Calcium (8.4-10.2) mg/dL Procalcitonin (0.02-0.09) ng/mL 05/04/23 05/04/23 Range/Units 06:50 11:28 WBC (3.8-10.6) k/uL RBC (4.30-5.90) m/uL Hgb (13.0-17.5) gm/dL Hct (39.0-53.0) % Lymphocytes # (1.0-4.8) k/uL Sodium 130 L (137-145) mmol/L Chloride 95 L (98-107) mmol/L BUN 23 H (9-20) mg/dL Creatinine 1.59 H (0.66-1.25) mg/dL Glucose 194 H (74-99) mg/dL POC Glucose (mg/dL) 177 H (70-110) mg/dL Hemoglobin A1c (<=6.0) % Calcium 8.0 L (8.4-10.2) mg/dL Procalcitonin (0.02-0.09) ng/mL Microbiology - Last 24 Hours (Table) 05/02/23 12:20 Blood Culture - Preliminary Blood 05/02/23 12:05 Blood Culture - Preliminary Blood
--- NOTE | 2023-05-04 13:29 | CA ---
Transthoracic Echo Report Name: Bear Epstein Age: 53 Gender: M : 1970 Exam Date: 05/04/2023 09:07 Exam Location: [place] [facility] Ht (in): 70 Wt (lb): 340 Ordering Physician: Roland Albright MD Attending/Referring Phys: Line Repairer Tower Arnie Fitzpatrick Procedure CPT: Indications: chf Cardiac Hx: Technical Quality: Technically difficult study Contrast 1: Lumason Total Dose (mL): 5 Contrast 2: Total Dose (mL): MEASUREMENTS (Male / Female) Normal Values 2D ECHO LV Diastolic Diameter PLAX 5.7 cm 4.2 - 5.9 / 3.9 - 5.3 cm LV Systolic Diameter PLAX 5.0 cm IVS Diastolic Thickness 1.2 cm 0.6 - 1.0 / 0.6 - 0.9 cm LVPW Diastolic Thickness 1.4 cm 0.6 - 1.0 / 0.6 - 0.9 cm LV Relative Wall Thickness 0.5 RV Internal Dim ED PLAX 3.0 cm LVOT Diameter 2.0 cm Aortic Root Diameter 3.0 cm LA Systolic Diameter LX 2.9 cm 3.0 - 4.0 / 2.7 - 3.8 cm LV Diastolic Volume MOD BP 133.3 cm??? 67 - 155 / 56 - 104 cm??? LV Systolic Volume MOD BP 77.4 cm??? - 58 / 19 - 49 cm??? LV Ejection Fraction MOD BP 42.0 % >= 55 % LV Cardiac Index MOD BP 1160.9 cm???/min???m??? LV Diastolic Volume MOD 4C 135.2 cm??? LV Systolic Volume MOD 4C 65.0 cm??? LV Ejection Fraction MOD 4C 51.9 % LV Cardiac Index MOD 4C 1457.2 cm???/min???m??? LV Diastolic Length 4C 9.0 cm LV Systolic Length 4C 8.4 cm LV Diastolic Volume MOD 2C 129.5 cm??? LV Systolic Volume MOD 2C 90.6 cm??? LV Ejection Fraction MOD 2C 30.1 % LV Cardiac Index MOD 2C 809.2 cm???/min???m??? LV Diastolic Length 2C 8.7 cm LV Systolic Length 2C 8.2 cm LA Volume 70.0 cm??? 18 - 58 / 22 - 52 cm??? LA Volume Index 24.6 cm???/m??? 16 - 28 cm???/m??? DOPPLER AV Peak Velocity 161.7 cm/s AV Peak Gradient 10.5 mmHg LVOT Peak Velocity 101.4 cm/s LVOT Peak Gradient 4.1 mmHg LVOT Velocity Time Integral 21.8 cm LVOT Stroke Volume 68.0 cm??? LVOT Stroke Volume Index 26.0 ml/m??? LVOT Cardiac Index 1412.5 cm???/min???m??? AV Area Cont Eq pk 2.0 cm??? MV Peak Velocity 137.3 cm/s MV Peak Gradient 7.5 mmHg MV Mean Velocity 65.9 cm/s MV Mean Gradient 2.2 mmHg MV Velocity Time Integral 58.6 cm MR Peak Velocity 365.5 cm/s MR Peak Gradient 53.4 mmHg Mitral E Point Velocity 120.7 cm/s Mitral A Point Velocity 62.9 cm/s Mitral E to A Ratio 1.9 MV Deceleration Time 221.7 ms MV E' Velocity 5.2 cm/s Mitral E to MV E' Ratio 23.3 TR Peak Velocity 163.5 cm/s TR Peak Gradient 10.7 mmHg Right Ventricular Systolic Press 15.7 mmHg PV Peak Velocity 111.1 cm/s PV Peak Gradient 4.9 mmHg FINDINGS Left Ventricle LV diameter at upper limits of normal. Mildly increased septal wall thickness. Left ventricular ejection fraction is estimated at 20-25 %. Posteriolateral wall hypokenesis. [place] is questionably akinetic. Right Ventricle Normal right ventricular size. RVSP around 25 mmHg Right Atrium Normal right atrial size. RA pressure around 10 mmHg Left Atrium Mild left atrial dilatation Mitral Valve Structurally normal mitral valve. Mild MR. Aortic Valve Trileaflet aortic valve. Mild sclerosis/calcification. No aortic valve stenosis or regurgitation. Tricuspid Valve Tricuspid valve not well visualized. Trace TR. Pulmonic Valve Pulmonic valve not well visualized. No pulmonic regurgitation. Pericardium Normal pericardium. Aorta Normal size aortic root. CONCLUSIONS Technically difficult study. Left ventricular ejection fraction is estimated at 20-25 %. Globally reduced severe systolic dysfunction Inferior wall hypokinesia, with thinning of was scheduled for an AR Mildly increased LV cavity size Mild left atrial dilatation. Mildly increased left atrial pressures Previewed by: Dr Emery Stinson (Electronically Signed) Final Date: 04 May 2023 13:28
--- NOTE | 2023-05-04 13:50 | P.PN ---
Subjective Progress Note Date: 05/04/23 HISTORY OF PRESENTING ILLNESS 53-year-old male with history of CAD, type 2 diabetes, COPD, DVT, PAD, chronic lower extremity edema with chronic skin changes, presented to the hospital with substernal chest pressure. On admission his BNP was 9000, troponin was 0.07, 0.07, 0.06. Creatinine was 1.4. Sodium 130. Baseline creatinine is around 1.0, hemoglobin 13.5 BP 104/68, pulse 58, lexiscan 2017 showed an EF of around 40%, inferolateral infarct Chest x-ray on this admission showed mild pulmonary congestion. ECG showed sinus rhythm with IVCD and nonspecific T-wave inversions. 05/04 Patient is seen today in follow-up. Yesterday, afternoon IV Lasix was held and patient to resume IV Lasix 40 mg daily this morning. Repeat chemistry panel is not reported at the time of this dictation. Heart rate has been in the 60s, blood pressure 112/73, pulse ox 94% on room air. Echocardiogram report revealed EF of 20-25% with globally reduced severe systolic dysfunction. Patient does not think his shortness of breath is any better or worse. He states he has had chronic edema for greater than 10 years and it seems to be close to baseline. He states he has been urinating quite a bit. He has a little bit of chest pain with deep breathing and coughing. He does have tenderness on the left rib area. 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 PHYSICAL EXAMINATION Vital signs reviewed. Head: Normocephalic. Eyes: Sclerae nonicteric. Neck: Brisk carotid upstroke, no jugular venous distention. Lungs: Clear to auscultation. Heart: Regular rate and rhythm, S1-S2, no S3, no murmur or rub. Abdomen: Soft nontender, positive bowel sounds no organomegaly. Extremities: Chronic edema with multiple ulcerations venous insufficiency with chronic color change and erythema, intact distal pulses. 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 Patient was seen and examined. Objective - Vital Signs Vital signs: Vital Signs Temp 98.1 F 05/04/23 08:21 Pulse 60 05/04/23 08:38 Resp 18 05/04/23 08:38 BP 112/73 05/04/23 08:21 Pulse Ox 95 05/04/23 08:38 FiO2 Intake & Output 05/03/23 05/04/23 05/04/23 18:59 06:59 18:59 Intake Total 360 180 Output Total 600 Balance 360 -600 180 Weight 154.2 kg Intake: Oral 360 180 Output: Urine 600 Other: Voiding Method Toilet Toilet # Voids 1 - Labs CBC & Chem 7: 05/04/23 06:50 05/04/23 06:50 Labs: Abnormal Lab Results - Last 24 Hours (Table) 05/02/23 05/03/23 05/03/23 Range/Units 11:31 07:38 07:41 WBC (3.8-10.6) k/uL RBC (4.30-5.90) m/uL Hgb (13.0-17.5) gm/dL Hct (39.0-53.0) % Lymphocytes # (1.0-4.8) k/uL Sodium 131 L (137-145) mmol/L Creatinine 1.40 H (0.66-1.25) mg/dL Glucose 208 H (74-99) mg/dL POC Glucose (mg/dL) (70-110) mg/dL Hemoglobin A1c 10.0 H (<=6.0) % Calcium 8.2 L (8.4-10.2) mg/dL Procalcitonin 0.18 H (0.02-0.09) ng/mL 05/03/23 05/03/23 05/03/23 Range/Units 11:49 16:14 20:32 WBC (3.8-10.6) k/uL RBC (4.30-5.90) m/uL Hgb (13.0-17.5) gm/dL Hct (39.0-53.0) % Lymphocytes # (1.0-4.8) k/uL Sodium (137-145) mmol/L Creatinine (0.66-1.25) mg/dL Glucose (74-99) mg/dL POC Glucose (mg/dL) 184 H 174 H 162 H (70-110) mg/dL Hemoglobin A1c (<=6.0) % Calcium (8.4-10.2) mg/dL Procalcitonin (0.02-0.09) ng/mL 05/04/23 05/04/23 Range/Units 06:11 06:50 WBC 3.0 L (3.8-10.6) k/uL RBC 4.13 L (4.30-5.90) m/uL Hgb 11.7 L (13.0-17.5) gm/dL Hct 36.7 L (39.0-53.0) % Lymphocytes # 0.8 L (1.0-4.8) k/uL Sodium (137-145) mmol/L Creatinine (0.66-1.25) mg/dL Glucose (74-99) mg/dL POC Glucose (mg/dL) 213 H (70-110) mg/dL Hemoglobin A1c (<=6.0) % Calcium (8.4-10.2) mg/dL Procalcitonin (0.02-0.09) ng/mL Microbiology - Last 24 Hours (Table) 05/02/23 12:20 Blood Culture - Preliminary Blood 05/02/23 12:05 Blood Culture - Preliminary Blood
--- NOTE | 2023-05-04 14:04 | XR ---
EXAMINATION TYPE: XR chest 1V portable DATE OF EXAM: 05/04/2023 1:21 PM CLINICAL INDICATION:Male, 53 years old with history of SOB; [facility] COMPARISON: Chest radiographs from 05/02/2023 TECHNIQUE: XR chest 1V portable Frontal view of the chest. FINDINGS: Lungs/Pleura: Improved aeration of lungs on today's exam with subtle reticular airspace opacities sca ttered throughout the lungs. No evidence of pneumothorax or large pleural effusion. Pulmonary vascularity: Unremarkable. Heart/mediastinum: Cardiomediastinal silhouette is unremarkable. Musculoskeletal: No acute osseous pathology. IMPRESSION: Improved aeration, Low lung volumes with a generalized hazy appearance which could represent atelecta sis versus pulmonary edema versus atypical pneumonia.
[2023-05-04 16:43] LABS: Glucose,Whole Blood 196 mg/dL (70-110)
[2023-05-04 20:15] LABS: Glucose,Whole Blood 187 mg/dL (70-110)
[2023-05-04 21:11] LABS: Erythrocyte Sedimentation Rate 53 mm/Hr (0-20)
[2023-05-04] MEDS: ATORVASTATIN 80 MG TAB PO SCH (21:36)
[2023-05-05 06:07] LABS: Glucose,Whole Blood 182 mg/dL (70-110)
[2023-05-05] MEDS: INSULIN DETEMIR (LEVEMIR) 100 UNIT/ML SYR SQ SCH (06:47)
[2023-05-05] MEDS: INSULIN ASPART (NovoLOG) 100 UNIT/ML VIAL SQ SCH ×2 (06:47→12:25)
[2023-05-05] MEDS: carvediloL 12.5 MG TAB PO SCH (06:47)
[2023-05-05] MEDS: PANTOPRAZOLE 40 MG TABLET PO SCH (08:27)
[2023-05-05] MEDS: LOSARTAN 50 MG TAB PO SCH (08:28)
[2023-05-05] MEDS: MULTIVITAMINS, THERA 1 EACH TAB PO SCH (08:28)
[2023-05-05] MEDS: HEPARIN SODIUM,PORCINE 5,000 UNIT/ML 1 ML VIAL SQ SCH (08:28)
[2023-05-05] MEDS: ASPIRIN 81 MG PO SCH (08:28)
[2023-05-05] MEDS: PETROLAT,WHITE/LAN/8-HYDROXYQU 227 GM OINT TOPICAL SCH (08:32)
[2023-05-05 09:00] LABS: Basophils % (A) 1 %; Eosinophils # (A) 0.2 k/uL (0-0.7); Eosinophils % (A) 6 %; HGB 12.3 gm/dL (13.0-17.5); Lymphocytes # (A) 0.8 k/uL (1.0-4.8); Lymphocytes % (A) 27 %; MCH 28.5 pg (25.0-35.0); MCHC 32.4 g/dL (31.0-37.0); MCV 87.8 fL (80.0-100.0); Mean Platelet Volume 8.7; Monocytes # (A) 0.2 k/uL (0-1.0); Monocytes % (A) 6 %; Neutrophils # (A) 1.8 k/uL (1.3-7.7); Neutrophils % (A) 59 %; Platelet Count 201 k/uL (150-450); RBC 4.33 m/uL (4.30-5.90); RDW 14.6 % (11.5-15.5)
[2023-05-05] MEDS ORDERED: FUROSEMIDE 40 MG TAB PO SCH (09:00)
[2023-05-05 09:03] LABS: African American GFR (CKD) 77 (>60 ml/min/1.73 sqM); Anion Gap 5 mmol/L; Blood Urea Nitrogen 19 mg/dL (9-20); Calcium 8.2 mg/dL (8.4-10.2); Carbon Dioxide 29 mmol/L (22-30); Chloride 98 mmol/L (98-107); Glucose 191 mg/dL (74-99); Magnesium 1.8 mg/dL (1.6-2.3); Non-African American GFR(CKD) 66 (>60 ml/min/1.73 sqM); Potassium 3.8 mmol/L (3.5-5.1); Sodium 132 mmol/L (137-145)
[2023-05-05] MEDS: IPRATROPIUM-ALBUTEROL 3 ML NEB INHALATION SCH ×2 (10:00→13:05)
[2023-05-05] MEDS: SYMBICORT 80-4.5 MCG INHALER INHALATION SCH (10:00)
--- NOTE | 2023-05-05 11:31 | P.DS ---
Providers Date of admission: 05/02/23 14:34 Expected date of discharge: 05/05/23 Attending physician: Roland Albright MD Consults: 05/02/23 14:34 Consult Physician Urgent Consulting Provider: [facility] Consult Reason/Comments: Chest pain Do you want consulting provider notified?: Yes Primary care physician: [facility] Hospital Course: Discharge Diagnosis: Acute CHF exacerbation, with LVEF 20-25% Ischemic cardiomyopathy History of CAD Acute kidney injury, nonoliguric Insulin-dependent diabetes, A1c 10 Isolated episode of fever COPD, not in exacerbation Hypertension Dyslipidemia Hospital Course: 53-year-old male with history of CAD, type 2 diabetes, COPD, history of DVT, peripheral vascular disease, chronic lower extremity edema presenting with chest pain. In the ED, temperature was 100.6, pulse 106, respiratory rate 20, blood pressure 155/76, saturating at 92% on room air. WBC 4.3, hemoglobin 13.5, sodium 130, creatinine 1.25, glucose 287, calcium 8.3, troponin 0.076, proBNP 9000, respiratory viral panel negative. Chest x-ray shows mild interstitial opacities. EKG shows sinus rhythm with nonspecific ST-T wave changes. Patient being admitted for CHF exacerbation. Cardiology consulted. Patient was started on IV Lasix. Renal function worsening, IV Lasix decreased. Now on oral. Losartan slightly decreased. Renal function has improved. Echocardiogram showed LVEF of 20-25%, inferior wall hypokinesis. His systolic function has worsened since last echo. Patient needs close follow-up with cardiology outpatient and consideration of an ICD. Patient seen and examined at bedside. Vital signs reviewed and stable. General: nontoxic, no distress, appears at stated age, morbid obesity Derm: warm, dry, lower extremity stasis dermatitis Head: atraumatic, normocephalic, symmetric Eyes: EOMI, no lid lag, anicteric sclera, pupils equal round reactive to light ENT: Nose and ears atraumatic Neck: No thyromegaly, supple Mouth: no lip lesion, mucus membranes moist Cardiovascular: S1S2 reg, no murmur, 2+ pitting edema Lungs: Bilateral rales, no wheeze, no accessory muscle use Abdominal: soft, nontender to palpation, no guarding, no appreciable organomegaly Ext: no gross muscle atrophy, muscle strength muscle strength 5 out of 5 in all 4 extremities, no contractures Neuro: CN II-XII grossly intact Psych: Alert, oriented, appropriate affect A total of 36 minutes of time were spent preparing this complex discharge summary. Patient was discharged on 05/05/23 at 11:27. Patient Condition at Discharge: Stable Plan - Discharge Summary Discharge Rx Participant: Yes New Discharge Prescriptions: New Losartan [Cozaar] 50 mg PO DAILY #90 tab Petrolat,White/Ronal/8-Hydroxyqu [Bag [place]] 1 gm TOPICAL DAILY #90 gm Furosemide [Lasix] 40 mg PO DAILY #90 tab Continue Atorvastatin [Lipitor] 80 mg PO HS #30 tab metFORMIN HCL [Glucophage] 1,000 mg PO BID Ipratropium/Albuterol Sulfate [Combivent Respimat Inhaler] 1 puff INHALATION RT-QID Omeprazole 20 mg PO DAILY Aspirin EC [Ecotrin Low Dose] 81 mg PO DAILY Insulin Glargine,Hum.rec.anlog [Lantus Solostar Pen] 40 unit SQ DAILY Fluticasone Propion/Salmeterol [Wixela 250-50 Inhub] 1 puff INHALATION RT-BID carvediloL 37.5 mg PO BID Ipratropium [place] 0.2 mg INHALATION RT-Q6H PRN PRN Reason: Shortness Of Breath Multivitamins, Thera [Multivitamin (formulary)] 1 tab PO DAILY Albuterol Nebulized [Ventolin Nebulized] 2.5 mg INHALATION RT-Q4H PRN PRN Reason: Shortness Of Breath Empagliflozin [Jardiance] 25 mg PO DAILY Discontinued Losartan Potassium [Cozaar] 100 mg PO DAILY hydrALAZINE HCL [Apresoline] 25 mg PO TID Discharge Medication List Atorvastatin [Lipitor] 80 mg PO HS #30 tab 02/27/16 [Rx] Ipratropium/Albuterol Sulfate [Combivent Respimat Inhaler] 1 puff INHALATION RT- QID 01/12/19 [History] metFORMIN HCL [Glucophage] 1,000 mg PO BID 01/12/19 [History] Omeprazole 20 mg PO DAILY 03/14/19 [History] Aspirin EC [Ecotrin Low Dose] 81 mg PO DAILY 10/17/20 [History] Albuterol Nebulized [Ventolin Nebulized] 2.5 mg INHALATION RT-Q4H PRN 01/15/22 [History] Fluticasone Propion/Salmeterol [[place]ixela 250-50 Inhub] 1 puff INHALATION RT-BID 01/15/22 [History] Insulin Glargine,Hum.rec.anlog [Lantus Solostar Pen] 40 unit SQ DAILY 01/15/22 [History] Ipratropium [place] 0.2 mg INHALATION RT-Q6H PRN 01/15/22 [History] Multivitamins, Thera [Multivitamin (formulary)] 1 tab PO DAILY 01/15/22 [History] carvediloL 37.5 mg PO BID 01/15/22 [History] Empagliflozin [Jardiance] 25 mg PO DAILY 05/02/23 [History] Furosemide [Lasix] 40 mg PO DAILY #90 tab 05/05/23 [Rx] Losartan [Cozaar] 50 mg PO DAILY #90 tab 05/05/23 [Rx] Petrolat,White/Ronal/8-Hydroxyqu [Bag [place]] 1 gm TOPICAL DAILY #90 gm 05/05/23 [Rx] Follow up Appointment(s)/Referral(s): Emery Stinson MD [Medical Doctor] - 1 Week 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 Wound care: Apply bag balm and wrap with Bobby wrap for compression. Change daily. Continue to elevate legs at least 30 minutes 3 times a day above the heart. Discharge Disposition: HOME SELF-CARE
[2023-05-05 11:37] VITALS: BP 142/80; PULSE 59; RESP 16; TEMP 98.1
[2023-05-05 11:46] LABS: Glucose,Whole Blood 181 mg/dL (70-110)
[2023-05-05 12:18] VITALS: BMI 48.8
--- NOTE | 2023-05-05 12:36 | P.PN ---
Subjective Progress Note Date: 05/05/23 HISTORY OF PRESENTING ILLNESS 53-year-old male with history of CAD, type 2 diabetes, COPD, DVT, PAD, chronic lower extremity edema with chronic skin changes, presented to the hospital with substernal chest pressure. On admission his BNP was 9000, troponin was 0.07, 0.07, 0.06. Creatinine was 1.4. Sodium 130. Baseline creatinine is around 1.0, hemoglobin 13.5 BP 104/68, pulse 58, lexiscan 2017 showed an EF of around 40%, inferolateral infarct Chest x-ray on this admission showed mild pulmonary congestion. ECG showed sinus rhythm with IVCD and nonspecific T-wave inversions. 05/04 Patient is seen today in follow-up. Yesterday, afternoon IV Lasix was held and patient to resume IV Lasix 40 mg daily this morning. Repeat chemistry panel is not reported at the time of this dictation. Heart rate has been in the 60s, blood pressure 112/73, pulse ox 94% on room air. Echocardiogram report revealed EF of 20-25% with globally reduced severe systolic dysfunction. Patient does not think his shortness of breath is any better or worse. He states he has had chronic edema for greater than 10 years and it seems to be close to baseline. He states he has been urinating quite a bit. He has a little bit of chest pain with deep breathing and coughing. He does have tenderness on the left rib area. 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 05/05 Patient states his edema is okay. He states he has a congested cough. He denies having any chest pain or chest pressure. He does have tenderness to the chest wall. Revealed results of echocardiogram with the patient. Blood pressure 142/80, heart rate in the 50s and 60s. BUN 19, creatinine 1.24. PHYSICAL EXAMINATION Vital signs reviewed. Head: Normocephalic. Eyes: Sclerae nonicteric. Neck: Brisk carotid upstroke, no jugular venous distention. Lungs: Clear to auscultation. Heart: Regular rate and rhythm, S1-S2, no S3, no murmur or rub. Abdomen: Soft nontender, positive bowel sounds no organomegaly. Extremities: Chronic edema with multiple ulcerations venous insufficiency with chronic color change and erythema, intact distal pulses. Neuro: Alert, oritented, no focal deficits ASSESSMENT Acute on chronic systolic heart failure exacerbation Nonspecific ST changes on ECG Chest pain secondary to chest wall rib pain Mild elevation of troponin with a flat pattern likely due to prior history of cardiomyopathy in setting of poor renal clearance Ischemic cardiac myopathy with EF of 40% with worsening of EF to 20-25% Mild to moderate COPD exacerbation Peripheral arterial disease is chronic lower extremity venous skin changes Type II Diabetes Dyslipidemia Hypertension, currently blood pressure is low normal PLAN Continue Lasix oral 40 mg daily Continue aspirin 81mg , atorvastatin 80mg Reduce losartan to 50 mg daily due to low blood pressure and CHAVO Patient is cleared for discharge from cardiology and may follow-up in the office for further workup as an outpatient Nurse practitioner note has been reviewed, I agree with the documented findings and plan of care. Patient was seen and examined. Objective - Vital Signs Vital signs: Vital Signs Temp 98 F 05/05/23 08:27 Pulse 65 05/05/23 08:27 Resp 17 05/05/23 08:27 BP 133/76 05/05/23 08:27 Pulse Ox 96 05/05/23 08:27 FiO2 Intake & Output 05/04/23 05/05/23 05/05/23 18:59 06:59 18:59 Intake Total 600 118 Output Total 500 Balance 100 118 Weight 154.3 kg Intake: Oral 600 118 Output: Urine 500 Other: Voiding Method Toilet Toilet Toilet - Labs CBC & Chem 7: 05/05/23 08:13 05/05/23 08:13 Labs: Abnormal Lab Results - Last 24 Hours (Table) 05/04/23 05/04/23 05/04/23 Range/Units 06:50 11:28 16:42 WBC (3.8-10.6) k/uL Hgb (13.0-17.5) gm/dL Hct (39.0-53.0) % Lymphocytes # (1.0-4.8) k/uL ESR 53 H (0-20) mm/Hr Sodium (137-145) mmol/L Glucose (74-99) mg/dL POC Glucose (mg/dL) 177 H 196 H (70-110) mg/dL Calcium (8.4-10.2) mg/dL 05/04/23 05/05/23 05/05/23 Range/Units 20:13 06:06 08:13 WBC 3.0 L (3.8-10.6) k/uL Hgb 12.3 L (13.0-17.5) gm/dL Hct 38.0 L (39.0-53.0) % Lymphocytes # 0.8 L (1.0-4.8) k/uL ESR (0-20) mm/Hr Sodium (137-145) mmol/L Glucose (74-99) mg/dL POC Glucose (mg/dL) 187 H 182 H (70-110) mg/dL Calcium (8.4-10.2) mg/dL 05/05/23 Range/Units 08:13 WBC (3.8-10.6) k/uL Hgb (13.0-17.5) gm/dL Hct (39.0-53.0) % Lymphocytes # (1.0-4.8) k/uL ESR (0-20) mm/Hr Sodium 132 L (137-145) mmol/L Glucose 191 H (74-99) mg/dL POC Glucose (mg/dL) (70-110) mg/dL Calcium 8.2 L (8.4-10.2) mg/dL Microbiology - Last 24 Hours (Table) 05/02/23 12:20 Blood Culture - Preliminary Blood 05/02/23 12:05 Blood Culture - Preliminary Blood
== END 2023-05-05 13:32 | disposition home or self-care (01) | DRG 291 ==
LOC: EC 11:07 → 3SCARD 14:34
PROVIDERS: ADMIT Student in an Organized Health Care Education/Training Program; ATTEND Student in an Organized Health Care Education/Training Program
DX: I11.0 Hypertensive heart disease with heart failure (principal); I50.23 Acute on chronic systolic (congestive) heart failure; J44.1 Chronic obstructive pulmonary disease with (acute) exacerbation; J44.0 Chronic obstructive pulmonary disease with (acute) lower respiratory infection; Z68.42 Body mass index [BMI] 45.0-49.9, adult; N17.9 Acute kidney failure, unspecified; I87.333 Chronic venous hypertension (idiopathic) with ulcer and inflammation of bilateral lower extremity; I87.313 Chronic venous hypertension (idiopathic) with ulcer of bilateral lower extremity; I25.110 Atherosclerotic heart disease of native coronary artery with unstable angina pectoris; Z20.822 Contact with and (suspected) exposure to COVID-19; E11.622 Type 2 diabetes mellitus with other skin ulcer; Z79.4 Long term (current) use of insulin; Z79.899 Other long term (current) drug therapy; E11.51 Type 2 diabetes mellitus with diabetic peripheral angiopathy without gangrene; I87.329 Chronic venous hypertension (idiopathic) with inflammation of unspecified lower extremity; E66.01 Morbid (severe) obesity due to excess calories; E78.00 Pure hypercholesterolemia, unspecified; I25.2 Old myocardial infarction; E78.5 Hyperlipidemia, unspecified; Z86.718 Personal history of other venous thrombosis and embolism; I25.5 Ischemic cardiomyopathy; R07.89 Other chest pain; I87.2 Venous insufficiency (chronic) (peripheral); K21.9 Gastro-esophageal reflux disease without esophagitis; R04.0 Epistaxis; T78.3XXA Angioneurotic edema, initial encounter; Z79.82 Long term (current) use of aspirin; G47.33 Obstructive sleep apnea (adult) (pediatric); I08.1 Rheumatic disorders of both mitral and tricuspid valves; Z79.84 Long term (current) use of oral hypoglycemic drugs; Z82.1 Family history of blindness and visual loss; Z82.49 Family history of ischemic heart disease and other diseases of the circulatory system; Z86.74 Personal history of sudden cardiac arrest; Z88.1 Allergy status to other antibiotic agents; Z86.14 Personal history of Methicillin resistant Staphylococcus aureus infection; Z87.440 Personal history of urinary (tract) infections; X58.XXXA Exposure to other specified factors, initial encounter
CPT/HCPCS: 36415; 71045; 71046; 80048; 80053; 80061; 81001; 83036; 83735; 83880; 84145; 84484; 85025; 85610; 85652; 85730; 86140; 87040; 87636; 93005; 93306; 93970; 94640; 94760; 96374; 96376; 99285

== ENCOUNTER 2023-05-06 17:58 | Emergency (ER) | payer OTHER ==
[2023-05-06 18:19] VITALS: RESP 18; TEMP 99.2
[2023-05-06 18:46] LABS: Basophils % (A) 0 %; Eosinophils # (A) 0.1 k/uL (0-0.7); Eosinophils % (A) 3 %; HCT 39.7 % (39.0-53.0); HGB 12.9 gm/dL (13.0-17.5); Lymphocytes # (A) 0.7 k/uL (1.0-4.8); Lymphocytes % (A) 18 %; MCH 28.2 pg (25.0-35.0); MCHC 32.6 g/dL (31.0-37.0); MCV 86.6 fL (80.0-100.0); Mean Platelet Volume 8.9; Monocytes # (A) 0.2 k/uL (0-1.0); Monocytes % (A) 6 %; Neutrophils # (A) 2.6 k/uL (1.3-7.7); Neutrophils % (A) 70 %; Platelet Count 194 k/uL (150-450); RBC 4.58 m/uL (4.30-5.90); RDW 14.4 % (11.5-15.5); WBC 3.7 k/uL (3.8-10.6)
--- NOTE | 2023-05-06 18:54 | XR ---
EXAMINATION TYPE: XR chest 2V DATE OF EXAM: 05/06/2023 COMPARISON: Prior chest x-ray 2 days earlier HISTORY: Difficulty in breathing. TECHNIQUE: Frontal and lateral views of the chest are obtained. FINDINGS: There is no suspicious new peripheral focal air space opacity, pleural effusion, or pneumo thorax seen. Cardiomegaly is redemonstrated. The osseous structures are intact. IMPRESSION: Cardiomegaly without new acute pulmonary process.
[2023-05-06 19:04] LABS: ALT 18 U/L (4-49); African American GFR (CKD) 85 (>60 ml/min/1.73 sqM); Anion Gap 5 mmol/L; Blood Urea Nitrogen 19 mg/dL (9-20); Calcium 8.3 mg/dL (8.4-10.2); Carbon Dioxide 27 mmol/L (22-30); Chloride 101 mmol/L (98-107); Glucose 177 mg/dL (74-99); Non-African American GFR(CKD) 73 (>60 ml/min/1.73 sqM); Sodium 133 mmol/L (137-145); Total Bilirubin 0.9 mg/dL (0.2-1.3)
[2023-05-06 19:12] LABS: INR 0.9 (<1.2); Prothrombin Time 9.8 sec (10.0-12.5)
[2023-05-06 19:13] LABS: NT-Pro-B-Type Natriuretic Pept 5550 pg/mL
[2023-05-06 19:20] LABS: AST 32 U/L (17-59); Alkaline Phosphatase 66 U/L (38-126); Potassium 4.4 mmol/L (3.5-5.1); Total Protein 5.6 g/dL (6.3-8.2)
[2023-05-06 19:21] LABS: Albumin 2.7 g/dL (3.5-5.0)
[2023-05-06] MEDS ORDERED: IPRATROPIUM-ALBUTEROL 3 ML NEB INHALATION STA (19:42)
[2023-05-06] MEDS ORDERED: SODIUM CHLORIDE 0.9% 500 ML 500 ML IV STA (19:42)
[2023-05-06] MEDS ORDERED: methylPREDNISolone SOD SUCCI 125 MG/2 ML VIAL IV STA (19:42)
--- NOTE | 2023-05-06 19:43 | ED ---
SOB HPI - General Chief Complaint: Shortness of Breath Stated Complaint: SOB Time Seen by Provider: 05/06/23 19:25 Source: patient, RN notes reviewed, old records reviewed Mode of arrival: ambulatory Limitations: no limitations - History of Present Illness Initial Comments: This is a 53-year-old male to the emergency department for evaluation of exertio nal shortness of breath and exertional dyspnea. Patient states she is recently in the hospital, pneumonia and COPD. Patient states those symptoms resolved here prior to discharge use discharge always been over 4 days but significant amount of exertion he doesn't always make him short of breath with activity he is able to catch his breath with rest. Patient denies any chest pain or other complaints. No fevers. MD Complaint: shortness of breath, cough, "asthma attack", anxiety -: days(s) Severity: moderate Severity scale (1-10): 6 Consistency: constant Improves With: nothing Worsens With: exertion Known History Of: COPD, congestive heart failure Context: recent URI, anxiety, recent illness Associated Symptoms: chest pain, pain with inspiration Treatments Prior to Arrival: none - Related Data Home Medications Medication Instructions Recorded Confirmed Ipratropium/Albuterol Sulfate 1 puff INHALATION RT-QID 01/12/19 05/06/23 [Combivent Respimat Inhaler] metFORMIN HCL [Glucophage] 1,000 mg PO BID 01/12/19 05/06/23 Omeprazole 20 mg PO DAILY 03/14/19 05/06/23 Aspirin EC [Ecotrin Low Dose] 81 mg PO DAILY 10/17/20 05/06/23 Albuterol Nebulized [Ventolin 2.5 mg INHALATION RT-Q4H PRN 01/15/22 05/06/23 Nebulized] Fluticasone Propion/Salmeterol 1 puff INHALATION RT-BID 01/15/22 05/06/23 [Wixela 250-50 Inhub] Insulin Glargine,Hum.rec.anlog 40 unit SQ DAILY 01/15/22 05/06/23 [Lantus Solostar Pen] Ipratropium [place] 0.2 mg INHALATION RT-Q6H PRN 01/15/22 05/06/23 Multivitamins, Thera [Multivitamin 1 tab PO DAILY 01/15/22 05/06/23 (formulary)] carvediloL 37.5 mg PO BID 01/15/22 05/06/23 Empagliflozin [Jardiance] 25 mg PO DAILY 05/02/23 05/06/23 Previous Rx's Medication Instructions Recorded Atorvastatin [Lipitor] 80 mg PO HS #30 tab 02/27/16 Furosemide [Lasix] 40 mg PO DAILY #90 tab 05/05/23 Losartan [Cozaar] 50 mg PO DAILY #90 tab 05/05/23 Petrolat,White/Ronal/8-Hydroxyqu 1 gm TOPICAL DAILY #90 gm 05/05/23 [Bag [place]] Allergies Allergy/AdvReac Type Severity Reaction Status Date / Time tetracycline Allergy Rash/Hives Verified 05/06/23 20:39 Review of Systems ROS Statement: Those systems with pertinent positive or pertinent negative responses have been documented in the HPI. ROS Other: All systems not noted in ROS Statement are negative. Past Medical History Past Medical History: Asthma, Coronary Artery Disease (CAD), COPD, Deep Vein Th rombosis (DVT), GERD/Reflux, Hyperlipidemia, Hypertension, Myocardial Infarction (UT), Renal Disease, Sleep Apnea/CPAP/BIPAP, Vascular Disorder Additional Past Medical History / Comment(s): 02/20/16 UT with cardiac teqlgf-Wwep-by wore life vest for 7 weeks, 2010 DVT RIGHT leg, bilateral lower leg cellulitis, bilateral varicose veins, PVD, NIDDM type II, BERTRAND with CPAP. UTI Mar 2021, cellulitis with open wounds on bilateral lower legs being treated in wound center 2021 Last Myocardial Infarction Date:: 02/20/16 History of Any Multi-Drug Resistant Organisms: MRSA Date of last positivie culture/infection: 2017 MDRO Source:: bilateral legs Past Surgical History: Heart Catheterization With Stent Additional Past Surgical History / Comment(s): circumcision Additional Past Anesthesia/Blood Transfusion Reaction / Comment(s): Pt has never had anesthesia Date of Last Stent Placement:: 02/20/16 Past Psychological History: No Psychological Hx Reported Smoking Status: Former smoker Past Alcohol Use History: None Reported Past Drug Use History: None Reported - Past Family History Father Family Medical History: Coronary Artery Disease (CAD), Diabetes Mellitus, Eye Disorder Additional Family Medical History / Comment(s): Bradycardia, blind. Father is in his early 70's. Mother Family Medical History: Coronary Artery Disease (CAD), Diabetes Mellitus Additional Family Medical History / Comment(s): Benign brain tumor. Mother is in her early 70's General Exam Limitations: no limitations General appearance: alert, in no apparent distress Head exam: Present: atraumatic, normocephalic, normal inspection Eye exam: Present: normal appearance, PERRL, EOMI. Absent: scleral icterus, conjunctival injection, periorbital swelling ENT exam: Present: normal exam, mucous membranes moist Neck exam: Present: normal inspection. Absent: tenderness, meningismus, lymphadenopathy Respiratory exam: Present: wheezes, decreased breath sounds, prolonged expir atory. Absent: respiratory distress, rales, rhonchi, stridor Cardiovascular Exam: Present: regular rate, normal rhythm, normal heart sounds. Absent: systolic murmur, diastolic murmur, rubs, gallop, clicks GI/Abdominal exam: Present: soft, normal bowel sounds. Absent: distended, tenderness, guarding, rebound, rigid Extremities exam: Present: normal inspection, full ROM, normal capillary refill. Absent: tenderness, pedal edema, joint swelling, calf tenderness Back exam: Present: normal inspection Neurological exam: Present: alert, oriented X3, CN II-XII intact Psychiatric exam: Present: normal affect, normal mood Skin exam: Present: warm, dry, intact, normal color. Absent: rash Course Vital Signs 05/06/23 05/06/23 05/06/23 18:04 21:01 21:20 Temperature 99.2 F Pulse Rate 68 72 76 Respiratory 18 Rate Blood Pressure 155/83 O2 Sat by Pulse 98 Oximetry 05/06/23 21:54 Temperature Pulse Rate 69 Respiratory 18 Rate Blood Pressure 175/100 O2 Sat by Pulse 98 Oximetry - Reevaluation(s) Reevaluation #1: 05/06/23 21:20 Medical record is reviewed Reevaluation #2: 05/06/23 21:20 Patient symptoms are improved here in the ER, patient prefers discharged Reevaluation #3: 05/06/23 21:20 patient informed of results questions answered Reevaluation #4: 05/06/23 19:43 Was pt. sent in by a medical professional or institution (, PA, SENIOR LABEL SPECIALIST, urgent care, hospital, or prison...) When possible be specific @ -no Did you speak to anyone other than the patient for history (EMS, parent, family, police, friend...)? What history was obtained from this source @ -no Did you review nursing and triage notes (agree or disagree)? Why? @ -agree Are old charts reviewed (outside hosp., previous admission, EMS record, old EKG, old radiological studies, urgent care reports/EKG's, prison records)? Report findings @ -yes Differential Diagnosis (chest pain, altered mental status, abdominal pain women, abdominal pain men, vaginal bleeding, weakness, fever, dyspnea, syncope, headache, dizziness, GI bleed, back pain, seizure, CVA, palpatations, mental health, musculoskeletal)? @ -prior EKG interpreted by me (3pts min.). @ -yes X-rays interpreted by me (1pt min.). @ -yes CT interpreted by me (1pt min.). @ -no U/S interpreted by me (1pt. min.). @ -no What testing was considered but not performed or refused? (CT, X-rays, U/S, labs)? Why? @ -none What meds were considered but not given or refused? Why? @ -none Did you discuss the management of the patient with other professionals (roberto carlos dennis i.e. , PA, SENIOR LABEL SPECIALIST, lab, RT, psych nurse, social service worker, senior systems architect, teacher, sports development officer, case monitor)? Give summary @ -no Was smoking cessation discussed for >3mins.? @ -no Was critical care preformed (if so, how long)? @ -no Were there social determinants of health that impacted care today? How? (Homelessness, low income, unemployed, alcoholism, drug addiction, transportation, low edu. Level, literacy, decrease access to med. care, [facility], rehab)? @ -none Was there de-escalation of care discussed even if they declined (Discuss DNR or withdrawal of care, Hospice)? DNR status @ -no What co-morbidities impacted this encounter? (DM, HTN, Smoking, COPD, CAD, Cancer, CVA, ARF, Chemo, Hep., AIDS, mental health diagnosis, sleep apnea, morbid obesity)? @ -none Was patient admitted / discharged? Hospital course, mention meds given and route, prescriptions, significant lab abnormalities, going to OR and other pertinent info. @ - 58 male to the emergency department for evaluation presents today for evaluation of shortness of breath with exertional shortness of breath. Patient has no heart failure on x-ray and is not in significant dyspnea with rest. Patient does have wheezing improved here with. Treatments patient can be discharged home Discharge Undiagnosed new problem with uncertain prognosis? @ -no Drug Therapy requiring intensive monitoring for toxicity (Heparin, Nitro, Insulin, Cardizem)? @ -no Were any procedures done? @ -no Diagnosis/symptom? @ -Bronchitis Acute, or Chronic, or Acute on Chronic? @ -Acute Uncomplicated (without systemic symptoms) or Complicated (systemic symptoms)? @ -Complicated Side effects of treatment? @ -no Exacerbation, Progression, or Severe Exacerbation? @ -exacerbation Poses a threat to life or bodily function? How? (Chest pain, [place], [place], pneumonia, PE, COPD, DKA, ARF, appy, cholecystitis, CVA, Diverticulitis, Homicidal, Suicidal, threat to staff... and all critical care pts) @ -yes Reevaluation #5: 05/06/23 19:43 Differential Dyspnea: Coronary syndrome, arrhythmia, tamponade, asthma, COPD, pulmonary embolism, pneumonia, pneumothorax, pulmonary effusion, anaphylaxis, diabetic ketoacidosis, flailed chest, pulmonary contusion, diaphragmatic rupture, anemia, neuromuscu lar, this is not meant to be an all-inclusive list. Medical Decision Making - Medical Decision Making 58 male to the emergency department for evaluation presents today for evaluation of shortness of breath with exertional shortness of breath. Patient has no heart failure on x-ray and is not in significant dyspnea with rest. Patient does have wheezing improved here with. Treatments patient can be discharged home - Lab Data Result diagrams: 05/06/23 18:29 05/06/23 18:29 Lab Results 05/06/23 05/06/23 05/06/23 Range/Units 18:29 18:29 18:29 WBC 3.7 L (3.8-10.6) k/uL RBC 4.58 (4.30-5.90) m/uL Hgb 12.9 L (13.0-17.5) gm/dL Hct 39.7 (39.0-53.0) % MCV 86.6 (80.0-100.0) fL MCH 28.2 (25.0-35.0) pg MCHC 32.6 (31.0-37.0) g/dL RDW 14.4 (11.5-15.5) % Plt Count 194 (150-450) k/uL MPV 8.9 Neutrophils % 70 % Lymphocytes % 18 % Monocytes % 6 % Eosinophils % 3 % Basophils % 0 % Neutrophils # 2.6 (1.3-7.7) k/uL Lymphocytes # 0.7 L (1.0-4.8) k/uL Monocytes # 0.2 (0-1.0) k/uL Eosinophils # 0.1 (0-0.7) k/uL Basophils # 0.0 (0-0.2) k/uL PT 9.8 L (10.0-12.5) sec INR 0.9 (<1.2) APTT 26.0 (22.0-30.0) sec Sodium 133 L (137-145) mmol/L Potassium 4.4 (3.5-5.1) mmol/L Chloride 101 (98-107) mmol/L Carbon Dioxide 27 (22-30) mmol/L Anion Gap 5 mmol/L BUN 19 (9-20) mg/dL Creatinine 1.14 (0.66-1.25) mg/dL Est GFR (CKD-EPI)AfAm 85 (>60 ml/min/1.73 sqM) Est GFR (CKD-EPI)NonAf 73 (>60 ml/min/1.73 sqM) Glucose 177 H (74-99) mg/dL Calcium 8.3 L (8.4-10.2) mg/dL Total Bilirubin 0.9 (0.2-1.3) mg/dL AST 32 (17-59) U/L ALT 18 (4-49) U/L Alkaline Phosphatase 66 (38-126) U/L Troponin I (0.000-0.034) ng/mL NT-Pro-B Natriuret Pep 5550 pg/mL Total Protein 5.6 L (6.3-8.2) g/dL Albumin 2.7 L (3.5-5.0) g/dL Influenza Type A (PCR) (Not Detectd) Influenza Type B (PCR) (Not Detectd) RSV (PCR) (Not Detectd) SARS-CoV-2 (PCR) (Not Detectd) 05/06/23 05/06/23 Range/Units 18:29 18:29 WBC (3.8-10.6) k/uL RBC (4.30-5.90) m/uL Hgb (13.0-17.5) gm/dL Hct (39.0-53.0) % MCV (80.0-100.0) fL MCH (25.0-35.0) pg MCHC (31.0-37.0) g/dL RDW (11.5-15.5) % Plt Count (150-450) k/uL MPV Neutrophils % % Lymphocytes % % Monocytes % % Eosinophils % % Basophils % % Neutrophils # (1.3-7.7) k/uL Lymphocytes # (1.0-4.8) k/uL Monocytes # (0-1.0) k/uL Eosinophils # (0-0.7) k/uL Basophils # (0-0.2) k/uL PT (10.0-12.5) sec INR (<1.2) APTT (22.0-30.0) sec Sodium (137-145) mmol/L Potassium (3.5-5.1) mmol/L Chloride (98-107) mmol/L Carbon Dioxide (22-30) mmol/L Anion Gap mmol/L BUN (9-20) mg/dL Creatinine (0.66-1.25) mg/dL Est GFR (CKD-EPI)AfAm (>60 ml/min/1.73 sqM) Est GFR (CKD-EPI)NonAf (>60 ml/min/1.73 sqM) Glucose (74-99) mg/dL Calcium (8.4-10.2) mg/dL Total Bilirubin (0.2-1.3) mg/dL AST (17-59) U/L ALT (4-49) U/L Alkaline Phosphatase (38-126) U/L Troponin I 0.029 (0.000-0.034) ng/mL NT-Pro-B Natriuret Pep pg/mL Total Protein (6.3-8.2) g/dL Albumin (3.5-5.0) g/dL Influenza Type A (PCR) Not Detected (Not Detectd) Influenza Type B (PCR) Not Detected (Not Detectd) RSV (PCR) Not Detected (Not Detectd) SARS-CoV-2 (PCR) Not Detected (Not Detectd) - EKG Data -: EKG Interpreted by Me (EKG is sinus 64 PA 160 QRS 114 QTc 421) - Radiology Data Radiology results: report reviewed (Chest x-rays negative for acute disease), image reviewed Disposition Clinical Impression: Asthma, Systolic congestive heart failure, Acute exacerbation of chronic obstructive pulmonary disease, Exertional dyspnea Disposition: HOME SELF-CARE Condition: Fair Instructions (If sedation given, give patient instructions): Dyspnea (ED) Is patient prescribed a controlled substance at d/c from ED?: No Referrals: [facility],Clinic [Primary Care Provider] - 1-2 days Time of Disposition: 21:20
[2023-05-06 22:13] VITALS: BP 175/100; PULSE 69
== END 2023-05-06 21:56 | disposition home or self-care (01) ==
LOC: EC 17:58
DX: J44.89 Other specified chronic obstructive pulmonary disease (principal); I11.0 Hypertensive heart disease with heart failure; I50.23 Acute on chronic systolic (congestive) heart failure; I25.10 Atherosclerotic heart disease of native coronary artery without angina pectoris; I25.2 Old myocardial infarction; E11.51 Type 2 diabetes mellitus with diabetic peripheral angiopathy without gangrene; E78.5 Hyperlipidemia, unspecified; K21.9 Gastro-esophageal reflux disease without esophagitis; Z79.899 Other long term (current) drug therapy; Z79.84 Long term (current) use of oral hypoglycemic drugs; Z79.82 Long term (current) use of aspirin; Z79.4 Long term (current) use of insulin; Z79.51 Long term (current) use of inhaled steroids; Z87.891 Personal history of nicotine dependence; Z20.822 Contact with and (suspected) exposure to COVID-19; Z88.8 Allergy status to other drugs, medicaments and biological substances
CPT/HCPCS: 36415; 94640; 93005; 83880; 80053; 84484; 85025; 85610; 85730; 87636; 71046; 99285; 96374; 96361; J2930

== ENCOUNTER 2023-06-13 16:50 | Inpatient (IN) | payer OTHER ==
[2023-06-13] MEDS ORDERED: SODIUM CHLORIDE 0.9% 1,000 ML IV STA (17:19)
[2023-06-13] MEDS ORDERED: IPRATROPIUM-ALBUTEROL 3 ML NEB INHALATION STA (17:19)
[2023-06-13] MEDS ORDERED: methylPREDNISolone SOD SUCCI 125 MG/2 ML VIAL IV STA (17:19)
--- NOTE | 2023-06-13 17:22 | ED ---
General Adult HPI - General Chief complaint: Shortness of Breath Stated complaint: JOE Time Seen by Provider: 06/13/23 16:58 Source: patient, EMS, RN notes reviewed Mode of arrival: EMS Limitations: no limitations - History of Present Illness Initial comments: Patient is a pleasant 53-year-old male presenting to the emergency department with concerns with difficulty breathing. Onset of symptoms was a week ago. Patient does have cough with yellow sputum. Patient did go to urgent care and had nebulizer treatment with only mild improvement. Patient tested negative for COVID-19. No fevers. Patient states he does have history of similar symptoms previously associated with COPD. Patient is chronic leg swelling, unchanged. No calf pain. - Related Data Home Medications Medication Instructions Recorded Confirmed Ipratropium/Albuterol Sulfate 1 puff INHALATION RT-QID 01/12/19 06/13/23 [Combivent Respimat Inhaler] metFORMIN HCL [Glucophage] 1,000 mg PO BID 01/12/19 06/13/23 Omeprazole 20 mg PO DAILY 03/14/19 06/13/23 Aspirin EC [Ecotrin Low Dose] 81 mg PO DAILY 10/17/20 06/13/23 Albuterol Nebulized [Ventolin 2.5 mg INHALATION RT-Q4H PRN 01/15/22 06/13/23 Nebulized] Fluticasone Propion/Salmeterol 1 puff INHALATION RT-BID 01/15/22 06/13/23 [Wixela 250-50 Inhub] Insulin Glargine,Hum.rec.anlog 40 unit SQ DAILY 01/15/22 06/13/23 [Lantus Solostar Pen] Ipratropium [place] 0.2 mg INHALATION RT-Q6H PRN 01/15/22 06/13/23 Multivitamins, Thera [Multivitamin 1 tab PO DAILY 01/15/22 06/13/23 (formulary)] carvediloL 37.5 mg PO BID 01/15/22 06/13/23 Empagliflozin [Jardiance] 25 mg PO DAILY 05/02/23 06/13/23 Petrolat,White/Ronal/8-Hydroxyqu 1 gm TOPICAL DAILY 06/13/23 06/13/23 [Bag [place]] Previous Rx's Medication Instructions Recorded Atorvastatin [Lipitor] 80 mg PO HS #30 tab 02/27/16 Furosemide [Lasix] 40 mg PO DAILY #90 tab 05/05/23 Losartan [Cozaar] 50 mg PO DAILY #90 tab 05/05/23 Allergies Allergy/AdvReac Type Severity Reaction Status Date / Time tetracycline Allergy Rash/Hives Verified 06/13/23 18:29 Review of Systems ROS Statement: Those systems with pertinent positive or pertinent negative responses have been documented in the HPI. ROS Other: All systems not noted in ROS Statement are negative. Constitutional: Denies: fever Eyes: Denies: eye pain ENT: Denies: ear pain Respiratory: Reports: as per HPI, cough, dyspnea Cardiovascular: Denies: chest pain Endocrine: Denies: fatigue Gastrointestinal: Denies: abdominal pain Genitourinary: Denies: dysuria Musculoskeletal: Denies: back pain Skin: Denies: rash Neurological: Denies: weakness Past Medical History Past Medical History: Asthma, Coronary Artery Disease (CAD), Heart Failure, COPD, Deep Vein Thrombosis (DVT), GERD/Reflux, Hyperlipidemia, Hypertension, Myocardial Infarction (UT), Renal Disease, Sleep Apnea/CPAP/BIPAP, Vascular Disorder Additional Past Medical History / Comment(s): 02/20/16 UT with cardiac voibis-Exrk-ip wore life vest for 7 weeks, 2010 DVT RIGHT leg, bilateral lower leg cellulitis, bilateral varicose veins, PVD, NIDDM type II, BERTRAND with CPAP. UTI Mar 2021, cellulitis with open wounds on bilateral lower legs being treated in wound center 2021 Last Myocardial Infarction Date:: 02/20/16 History of Any Multi-Drug Resistant Organisms: MRSA Date of last positivie culture/infection: 2017 MDRO Source:: bilateral legs Past Surgical History: Heart Catheterization With Stent Additional Past Surgical History / Comment(s): circumcision Additional Past Anesthesia/Blood Transfusion Reaction / Comment(s): Pt has never had anesthesia Date of Last Stent Placement:: 02/20/16 Past Psychological History: No Psychological Hx Reported Smoking Status: Former smoker Past Alcohol Use History: None Reported Past Drug Use History: None Reported - Past Family History Father Family Medical History: Coronary Artery Disease (CAD), Diabetes Mellitus, Eye Disorder Additional Family Medical History / Comment(s): Bradycardia, blind. Father is in his early 70's. Mother Family Medical History: Coronary Artery Disease (CAD), Diabetes Mellitus Additional Family Medical History / Comment(s): Benign brain tumor. Mother is in her early 70's General Exam Limitations: no limitations General appearance: alert, in no apparent distress Head exam: Present: normocephalic Eye exam: Present: normal appearance Neck exam: Present: normal inspection Respiratory exam: Present: wheezes, decreased breath sounds Cardiovascular Exam: Present: regular rate, normal rhythm GI/Abdominal exam: Present: soft. Absent: tenderness Extremities exam: Present: pedal edema. Absent: calf tenderness Neurological exam: Present: alert Psychiatric exam: Present: normal affect, normal mood Skin exam: Present: normal color Course Vital Signs 06/13/23 06/13/23 06/13/23 16:53 16:54 17:00 Temperature 98.8 F Pulse Rate 77 76 Respiratory 24 11 L Rate Blood Pressure 136/67 O2 Sat by Pulse 95 97 92 L Oximetry 06/13/23 06/13/23 06/13/23 17:33 17:46 19:00 Temperature Pulse Rate 76 72 76 Respiratory 22 Rate Blood Pressure O2 Sat by Pulse 87 L Oximetry 06/13/23 20:00 Temperature Pulse Rate 77 Respiratory 11 L Rate Blood Pressure O2 Sat by Pulse 92 L Oximetry EKG Findings - EKG Results: EKG: interpreted by ERMD (Lateral T wave inversion. Previous EKG reviewed dated 05/03/23), sinus rhythm, normal axis, normal QRS Medical Decision Making - Medical Decision Making Was pt. sent in by a medical professional or institution (Dr. PA, UNIX SYSTEMS ADMINISTRATOR, urgent care, hospital, or assisted...) When possible be specific @ -Patient was sent from urgent care Did you speak to anyone other than the patient for history (EMS, parent, family, police, friend...)? What history was obtained from this source @ -No Did you review nursing and triage notes (agree or disagree)? Why? @ -I reviewed and agree with nursing and triage notes Were old charts reviewed (outside hosp., previous admission, EMS record, old EKG, old radiological studies, urgent care reports/EKG's, assisted records)? Report findings @ -Records from urgent care reviewed Differential Diagnosis (chest pain, altered mental status, abdominal pain women, abdominal pain men, vaginal bleeding, weakness, fever, dyspnea, syncope, headache, dizziness, GI bleed, back pain, seizure, CVA, palpatations, mental health, musculoskeletal)? @ -Differential Dyspnea: Coronary syndrome, arrhythmia, tamponade, asthma, COPD, pulmonary embolism, pneumonia, pneumothorax, pulmonary effusion, anaphylaxis, diabetic ketoacidosis, flailed chest, pulmonary contusion, diaphragmatic rupture, anemia, neuromuscular, this is not meant to be an all-inclusive list. EKG interpreted by me (3pts min.). @ -As above X-rays interpreted by me (1pt min.). @ -Chest x-ray does show some possible multifocal infiltrate versus CHF CT interpreted by me (1pt min.). @ -None done U/S interpreted by me (1pt. min.). @ -None done What testing was considered but not performed or refused? (CT, X-rays, U/S, labs)? Why? @ -None What meds were considered but not given or refused? Why? @ -None Did you discuss the management of the patient with other professionals ( professionals i.e. , PA, UNIX SYSTEMS ADMINISTRATOR, lab, RT, psych nurse, oncology social worker, optometrist owner, teacher, parole or probation officer, case filler)? Give summary @ -Case was discussed with Dr. Yepez, who will admit covering for this va patient. He is aware of CT report pending. Was smoking cessation discussed for >3mins.? @ -No Was critical care preformed (if so, how long)? @ -No Were there social determinants of health that impacted care today? How? (Homelessness, low income, unemployed, alcoholism, drug addiction, transportation, low edu. Level, literacy, decrease access to med. care, senior care, rehab)? @ -No Was there de-escalation of care discussed even if they declined (Discuss DNR or withdrawal of care, Hospice)? DNR status @ -No What co-morbidities impacted this encounter? (DM, HTN, Smoking, COPD, CAD, Cancer, CVA, ARF, Chemo, Hep., AIDS, mental health diagnosis, sleep apnea, morbid obesity)? @ -None Was patient admitted / discharged? Hospital course, mention meds given and route, prescriptions, significant lab abnormalities, going to OR and other pertinent info. @ -Patient reevaluated and updated. Patient will be admitted with concern for infection/pneumonia. Blood culture and lactic acid and IV antibiotics will be started. ProBNP ordered. Undiagnosed new problem with uncertain prognosis? @ -No Drug Therapy requiring intensive monitoring for toxicity (Heparin, Nitro, Insulin, Cardizem)? @ -No Were any procedures done? @ -No Diagnosis/symptom? @ -COPD Acute, or Chronic, or Acute on Chronic? @ -Acute Uncomplicated (without systemic symptoms) or Complicated (systemic symptoms)? @ -default Side effects of treatment? @ -No Exacerbation, Progression, or Severe Exacerbation? @ -No Poses a threat to life or bodily function? How? (Chest pain, [place], UT, pneumonia, PE, COPD, DKA, ARF, appy, cholecystitis, CVA, Diverticulitis, Homicidal, Suicidal, threat to staff... and all critical care pts) @ -No - Lab Data Result diagrams: 06/13/23 17:24 06/13/23 17:24 Lab Results 06/13/23 06/13/23 06/13/23 Range/Units 17:24 17:24 17:24 WBC 11.4 H (3.8-10.6) k/uL RBC 4.87 (4.30-5.90) m/uL Hgb 13.6 (13.0-17.5) gm/dL Hct 42.0 (39.0-53.0) % MCV 86.3 (80.0-100.0) fL MCH 28.0 (25.0-35.0) pg MCHC 32.4 (31.0-37.0) g/dL RDW 15.0 (11.5-15.5) % Plt Count 257 (150-450) k/uL MPV 9.0 Neutrophils % 88 % Lymphocytes % 6 % Monocytes % 4 % Eosinophils % 0 % Basophils % 0 % Neutrophils # 10.0 H (1.3-7.7) k/uL Lymphocytes # 0.7 L (1.0-4.8) k/uL Monocytes # 0.4 (0-1.0) k/uL Eosinophils # 0.0 (0-0.7) k/uL Basophils # 0.0 (0-0.2) k/uL PT 11.1 (10.0-12.5) sec INR 1.0 (<1.2) APTT 27.7 (22.0-30.0) sec D-Dimer (<0.60) mg/L FEU Sodium 128 L (137-145) mmol/L Potassium 4.7 (3.5-5.1) mmol/L Chloride 93 L (98-107) mmol/L Carbon Dioxide 29 (22-30) mmol/L Anion Gap 6 mmol/L BUN 19 (9-20) mg/dL Creatinine 1.38 H (0.66-1.25) mg/dL Est GFR (CKD-EPI)AfAm 67 (>60 ml/min/1.73 sqM) Est GFR (CKD-EPI)NonAf 58 (>60 ml/min/1.73 sqM) Glucose 216 H (74-99) mg/dL Plasma Lactic Acid [place] (0.7-2.0) mmol/L Calcium 8.4 (8.4-10.2) mg/dL Magnesium 1.8 (1.6-2.3) mg/dL Total Bilirubin 1.5 H (0.2-1.3) mg/dL AST 47 (17-59) U/L ALT 17 (4-49) U/L Alkaline Phosphatase 86 (38-126) U/L Total Protein 6.0 L (6.3-8.2) g/dL Albumin 2.8 L (3.5-5.0) g/dL Influenza Type A (PCR) (Not Detectd) Influenza Type B (PCR) (Not Detectd) RSV (PCR) (Not Detectd) SARS-CoV-2 (PCR) (Not Detectd) 06/13/23 06/13/23 06/13/23 Range/Units 17:24 17:24 18:49 WBC (3.8-10.6) k/uL RBC (4.30-5.90) m/uL Hgb (13.0-17.5) gm/dL Hct (39.0-53.0) % MCV (80.0-100.0) fL MCH (25.0-35.0) pg MCHC (31.0-37.0) g/dL RDW (11.5-15.5) % Plt Count (150-450) k/uL MPV Neutrophils % % Lymphocytes % % Monocytes % % Eosinophils % % Basophils % % Neutrophils # (1.3-7.7) k/uL Lymphocytes # (1.0-4.8) k/uL Monocytes # (0-1.0) k/uL Eosinophils # (0-0.7) k/uL Basophils # (0-0.2) k/uL PT (10.0-12.5) sec INR (<1.2) APTT (22.0-30.0) sec D-Dimer 1.83 H (<0.60) mg/L FEU Sodium (137-145) mmol/L Potassium (3.5-5.1) mmol/L Chloride (98-107) mmol/L Carbon Dioxide (22-30) mmol/L Anion Gap mmol/L BUN (9-20) mg/dL Creatinine (0.66-1.25) mg/dL Est GFR (CKD-EPI)AfAm (>60 ml/min/1.73 sqM) Est GFR (CKD-EPI)NonAf (>60 ml/min/1.73 sqM) Glucose (74-99) mg/dL Plasma Lactic Acid [place] 1.4 (0.7-2.0) mmol/L Calcium (8.4-10.2) mg/dL Magnesium (1.6-2.3) mg/dL Total Bilirubin (0.2-1.3) mg/dL AST (17-59) U/L ALT (4-49) U/L Alkaline Phosphatase (38-126) U/L Total Protein (6.3-8.2) g/dL Albumin (3.5-5.0) g/dL Influenza Type A (PCR) Not Detected (Not Detectd) Influenza Type B (PCR) Not Detected (Not Detectd) RSV (PCR) Not Detected (Not Detectd) SARS-CoV-2 (PCR) Not Detected (Not Detectd) Disposition Clinical Impression: Acute exacerbation of chronic obstructive pulmonary disease Disposition: ADMITTED IP TO THIS HOSP Is patient prescribed a controlled substance at d/c from ED?: No Referrals: [facility],Clinic [Primary Care Provider] - 1-2 days Time of Disposition: 20:50
--- NOTE | 2023-06-13 17:35 | XR ---
EXAMINATION TYPE: XR chest 2V DATE OF EXAM: 06/13/2023 COMPARISON: 05/06/2023 INDICATION: Difficulty breathing x5 days TECHNIQUE: Frontal and lateral views of the chest are obtained. FINDINGS: The heart size is normal. The pulmonary vasculature is upper limits normal. Subtle increased lung markings are present. Correlate for volume overload. Consider atypical pneumoni a.. IMPRESSION: 1. Early volume overload or atypical pneumonia. Follow-up can be performed as clinically indicated
[2023-06-13 18:25] LABS: Basophils % (A) 0 %; Eosinophils % (A) 0 %; HGB 13.6 gm/dL (13.0-17.5); Lymphocytes # (A) 0.7 k/uL (1.0-4.8); Lymphocytes % (A) 6 %; MCHC 32.4 g/dL (31.0-37.0); MCV 86.3 fL (80.0-100.0); Monocytes # (A) 0.4 k/uL (0-1.0); Monocytes % (A) 4 %; Neutrophils % (A) 88 %; Platelet Count 257 k/uL (150-450); RBC 4.87 m/uL (4.30-5.90); WBC 11.4 k/uL (3.8-10.6)
[2023-06-13 18:41] LABS: Partial Thromboplastin Time 27.7 sec (22.0-30.0); Prothrombin Time 11.1 sec (10.0-12.5)
[2023-06-13 19:22] LABS: ALT 17 U/L (4-49); AST 47 U/L (17-59); African American GFR (CKD) 67 (>60 ml/min/1.73 sqM); Albumin 2.8 g/dL (3.5-5.0); Alkaline Phosphatase 86 U/L (38-126); Anion Gap 6 mmol/L; Blood Urea Nitrogen 19 mg/dL (9-20); Calcium 8.4 mg/dL (8.4-10.2); Carbon Dioxide 29 mmol/L (22-30); Chloride 93 mmol/L (98-107); Glucose 216 mg/dL (74-99); Magnesium 1.8 mg/dL (1.6-2.3); Non-African American GFR(CKD) 58 (>60 ml/min/1.73 sqM); Sodium 128 mmol/L (137-145); Total Bilirubin 1.5 mg/dL (0.2-1.3)
[2023-06-13 19:31] LABS: Potassium 4.7 mmol/L (3.5-5.1)
[2023-06-13] MEDS ORDERED: IPRATROPIUM-ALBUTEROL 3 ML NEB INHALATION PRN (20:50)
[2023-06-13] MEDS ORDERED: PNEUMONIA PROTOCOL UTILIZED 1 EACH MISC PO PRN (20:50)
[2023-06-13] MEDS ORDERED: AZITHROMYCIN 500 MG in SODIUM CHLORIDE 0.9% 250 ML IVPB STA ×2 (20:50→23:30)
[2023-06-13 22:40] LABS: Glucose,Whole Blood 401 mg/dL (70-110)
[2023-06-13] MEDS ORDERED: INSULIN ASPART (NovoLOG) 100 UNIT/ML VIAL SQ ONE (23:06)
[2023-06-13] MEDS ORDERED: INSULIN DETEMIR (LEVEMIR) 100 UNIT/ML SYR SQ ONE (23:10)
[2023-06-13] MEDS: methylPREDNISolone SOD SUCCI 125 MG/2 ML VIAL IV SCH (23:36)
--- NOTE | 2023-06-14 01:21 | CT ---
EXAMINATION TYPE: CT angio chest CT DLP: 984.7 mGycm, Automated exposure control for dose reduction was used. DATE OF EXAM: 06/13/2023 8:20 PM COMPARISON: Same day 2V chest x-ray CLINICAL INDICATION:Male, 53 years old with history of dyspnea; chest pain, SOB TECHNIQUE/CONTRAST: CTA scan of the thorax is performed with IV Contrast, patient injected with 80 mL of Isovue 370, MIP images are created and reviewed these are created on a separate workstation.. FINDINGS: Pulmonary Artery: There is no evidence for a filling defect within the pulmonary vasculature to sugge st acute pulmonary embolism. The pulmonary artery is borderline mildly enlarged at 3 cm, this can be seen with early pulmonary hypertension. Heart: Heart size upper normal. Moderate coronary arterial calcifications. No pericardial effusion. Vasculature: Minimal atherosclerotic calcification of the aorta. No evidence of dissection flap or ao rtic aneurysm. Mediastinum: No gross evidence of adenopathy. Multiple small lymph nodes are seen, likely normal/reac tive. Airway: Central airways are patent. Mild mucous secretion along the wall of the mid trachea. Lower neck: No significant findings. Soft Tissues: Unremarkable. Lungs/Pleura: Small to moderate size left pleural effusion, with adjacent opacity consistent with com pressive atelectasis. Additionally in the left lower lobe there is small patchy reticulonodular and g roundglass opacity raising concern for superimposed infectious/inflammatory process. Small calcified granuloma in the medial aspect of the right upper lobe. No evidence of lung mass. Musculoskeletal: No acute osseous abnormalities. Mild degenerative changes. Upper Abdomen: No acute findings. Fatty infiltration of the visualized pancreas. Rounded nodular dens ity partially seen in the left upper quadrant of uncertain etiology.. IMPRESSION: 1. No evidence of pulmonary arterial embolism. 2. Borderline mildly enlarged pulmonary trunk, can be seen with early pulmonary hypertension. 3. Heart size upper limits of normal. Moderate coronary arterial calcifications. 4. Small to moderate size left pleural effusion, with adjacent opacity consistent with compressive a telectasis. 5. Additionally in the left lower lobe there is small patchy reticulonodular and groundglass opacity raising concern for superimposed infectious/inflammatory process. Consider follow-up CT in 3 months to reassess. 6. Partially seen nodular density in the left upper quadrant of the abdomen, of uncertain etiology. This could be part of a normal structure such as a bowel loop, however other etiologies cannot be exc luded. Consider nonemergent outpatient CT abdomen for further evaluation.
[2023-06-14 01:47] LABS: Glucose,Whole Blood 357 mg/dL (70-110)
[2023-06-14] MEDS ORDERED: INSULIN ASPART (NovoLOG) 100 UNIT/ML VIAL SQ ONE ×2 (01:58→22:42)
[2023-06-14 04:26] LABS: Glucose,Whole Blood 290 mg/dL (70-110)
[2023-06-14] MEDS ORDERED: DEXTROSE 50% SYRINGE 50 ML IVP PRN ×2 (05:13)
--- NOTE | 2023-06-14 05:21 | P.HPIM ---
History of Present Illness H&P Date: 06/13/23 Chief Complaint: Difficulty in breathing 53-year-old male with diabetes mellitus COPD congestive heart failure left and ejection fraction 20% Patient coming in with one-week history of progressive difficulty breathing patient was somnolent and provide limited history. He reports upper respiratory infection symptoms about 10 days ago was associated with productive cough h owever over the past 4-5 days he started having progressive worsening of difficulty breathing with activity with increased wheezing and coughing denies any nausea vomiting denies any chest pain denies any bleeding or diarrhea. He does not use any home oxygen. He denies any known sick contacts. He went to an urgent care today for evaluation and tested negative for Covid however due to no improvement in symptoms after nebulizer treatment he was told to come to the hospital for evaluation. Patient denies any history of blood clots denies any recent travel. Patient was recently hospitalized and discharged about a month ago at our facility where he was treated for acute CHF exacerbation Patient denies any new onset leg pain denies any abdominal pain denies any chest pain review of systems Pertinent positives as noted in HPI. All other systems were reviewed and are negative on exam Constitutional: No acute distress, sleepy but arousable Eyes: Anicteric sclerae, moist conjunctiva, Pupils equal round reactive to light ENMT: NC/AT Oropharynx clear, no erythema, or exudates Neck: Supple, no masses, or JVD No carotid bruits No thyromegaly Lungs: Audible breath sounds throughout with positive rhonchi Clear to percussion Normal respiratory effort, no accessory muscle use Cardiovascular: Heart regular in rate and rhythm, No murmurs, gallops, or rubs +2 nonpitting peripheral edema Abdominal: Soft Nontender, no guarding, rebound or rigidity Abdomen moving with respiration Normoactive bowel sounds No hepatomegaly, No splenomegaly No palpable mass No abdominal wall hernia noted Skin: Chronic skin changes bilateral lower extremities Extremities: No digital cyanosis Pedal pulses difficult to assess due to pedal edema and chronic skin changes Radial pulses intact and symmetrical No calf tenderness Psychiatric: Sleepy but arousable and oriented to person, place Neuro Muscles Strength 4/5 in all 4 extremities Sensation to light touch grossly present throughout Cranial nerves II-XII grossly intact Lymphatics: no palpable cervical or supraclavicular lymph nodes Past Medical History Past Medical History: Asthma, Coronary Artery Disease (CAD), Heart Failure, COPD, Diabetes Mellitus, Deep Vein Thrombosis (DVT), GERD/Reflux, Hyperl ipidemia, Hypertension, Myocardial Infarction ([place]), Renal Disease, Sleep Apnea/CPAP/BIPAP, Vascular Disorder Additional Past Medical History / Comment(s): 02/20/16 NH with cardiac [id number] wore life vest for 7 weeks, 2010 DVT RIGHT leg, bilateral lower leg cellulitis, bilateral varicose veins, PVD, NIDDM type II, BERTRAND with CPAP. UTI Mar 2021, cellulitis with open wounds on bilateral lower legs being treated in wound center 2021 Last Myocardial Infarction Date:: 02/20/16 History of Any Multi-Drug Resistant Organisms: MRSA Date of last positivie culture/infection: 2017 MDRO Source:: bilateral legs Past Surgical History: Heart Catheterization With Stent Additional Past Surgical History / Comment(s): circumcision Additional Past Anesthesia/Blood Transfusion Reaction / Comment(s): Pt has never had anesthesia Date of Last Stent Placement:: 02/20/16 Past Psychological History: No Psychological Hx Reported Additional Psychological History / Comment(s): He is independent. Smoking Status: Former smoker Past Alcohol Use History: None Reported Additional Past Alcohol Use History / Comment(s): Pt states he started smoking at age 18 yrs and quit 02/20/16. Past Drug Use History: None Reported - Past Family History Father Family Medical History: Coronary Artery Disease (CAD), Diabetes Mellitus, Eye Disorder Additional Family Medical History / Comment(s): Bradycardia, blind. Father is in his early 70's. Mother Family Medical History: Coronary Artery Disease (CAD), Diabetes Mellitus Additional Family Medical History / Comment(s): Benign brain tumor. Mother is in her early 70's Medications and Allergies Home Medications Medication Instructions Recorded Confirmed Type Atorvastatin [Lipitor] 80 mg PO HS #30 tab 02/27/16 06/13/23 Rx Ipratropium/Albuterol Sulfate 1 puff INHALATION RT-QID 01/12/19 06/13/23 History [Combivent Respimat Inhaler] metFORMIN HCL [Glucophage] 1,000 mg PO BID 01/12/19 06/13/23 History Omeprazole 20 mg PO DAILY 03/14/19 06/13/23 History Aspirin EC [Ecotrin Low Dose] 81 mg PO DAILY 10/17/20 06/13/23 History Albuterol Nebulized [Ventolin 2.5 mg INHALATION RT-Q4H PRN 01/15/22 06/13/23 History Nebulized] Fluticasone Propion/Salmeterol 1 puff INHALATION RT-BID 01/15/22 06/13/23 History [Wixela 250-50 Inhub] Insulin Glargine,Hum.rec.anlog 40 unit SQ DAILY 01/15/22 06/13/23 History [Lantus Solostar Pen] Ipratropium [place] 0.2 mg INHALATION RT-Q6H PRN 01/15/22 06/13/23 History Multivitamins, Thera [Multivitamin 1 tab PO DAILY 01/15/22 06/13/23 History (formulary)] carvediloL 37.5 mg PO BID 01/15/22 06/13/23 History Empagliflozin [Jardiance] 25 mg PO DAILY 05/02/23 06/13/23 History Furosemide [Lasix] 40 mg PO DAILY #90 tab 05/05/23 06/13/23 Rx Losartan [Cozaar] 50 mg PO DAILY #90 tab 05/05/23 06/13/23 Rx Petrolat,White/Ronal/8-Hydroxyqu 1 gm TOPICAL DAILY 06/13/23 06/13/23 History [Bag [place]] Allergies Allergy/AdvReac Type Severity Reaction Status Date / Time tetracycline Allergy Rash/Hives Verified 06/13/23 18:29 Physical Exam Vitals: Vital Signs Temp Pulse Pulse Resp BP BP Pulse Ox 06/14/23 01:53 97.4 F L 73 20 110/73 93 L 06/14/23 00:40 22 06/13/23 22:20 98.6 F 76 22 121/80 91 L 06/13/23 20:00 77 20 92 L 06/13/23 19:00 76 22 87 L 06/13/23 17:46 72 06/13/23 17:33 76 06/13/23 17:00 76 11 L 92 L 06/13/23 16:54 98.8 F 77 24 136/67 97 06/13/23 16:53 95 Intake and Output 06/13/23 06/13/23 06/14/23 14:59 22:59 06:59 Other: Weight 149.685 kg Results CBC & Chem 7: 06/13/23 17:24 06/13/23 17:24 Labs: Abnormal Lab Results - Last 24 Hours (Table) 06/13/23 06/13/23 06/13/23 Range/Units 17:24 17:24 17:24 WBC 11.4 H (3.8-10.6) k/uL Neutrophils # 10.0 H (1.3-7.7) k/uL Lymphocytes # 0.7 L (1.0-4.8) k/uL D-Dimer 1.83 H (<0.60) mg/L FEU Sodium 128 L (137-145) mmol/L Chloride 93 L (98-107) mmol/L Creatinine 1.38 H (0.66-1.25) mg/dL Glucose 216 H (74-99) mg/dL POC Glucose (mg/dL) (70-110) mg/dL Total Bilirubin 1.5 H (0.2-1.3) mg/dL Total Protein 6.0 L (6.3-8.2) g/dL Albumin 2.8 L (3.5-5.0) g/dL 06/13/23 06/14/23 06/14/23 Range/Units 22:38 01:45 04:24 WBC (3.8-10.6) k/uL Neutrophils # (1.3-7.7) k/uL Lymphocytes # (1.0-4.8) k/uL D-Dimer (<0.60) mg/L FEU Sodium (137-145) mmol/L Chloride (98-107) mmol/L Creatinine (0.66-1.25) mg/dL Glucose (74-99) mg/dL POC Glucose (mg/dL) 401 H 357 H 290 H (70-110) mg/dL Total Bilirubin (0.2-1.3) mg/dL Total Protein (6.3-8.2) g/dL Albumin (3.5-5.0) g/dL Thrombosis Risk Factor Assmnt - Choose All That Apply Any of the Below Risk Factors Present?: Yes Each Factor Represents 1 point: Abnormal pulmonary function (COPD), Age 41-60 years, Obesity (BMI >25), Swollen legs (current) Other Risk Factors: Yes Each Risk Factor Represents 3 Points: Family history of DVT/PE Other congenital or acquired thrombophilia - If yes, enter type in comment: No Thrombosis Risk Factor Assessment Total Risk Factor Score: 7 Thrombosis Risk Factor Assessment Level: High Risk Assessment and Plan Assessment: 53-year-old male with COPD, CHF left ventricular ejection fraction 20% not on home oxygen coming in with one-week history of upper respiratory symptoms with worsening difficulty breathing over the past few days I discussed the case with the ED doctor and accepted the admission for acute COPD exacerbation secondary to underlying pneumonia with anticipated length of stay more than 2 midnights COPD exacerbation possibly secondary to underlying pneumonia Follow-up cultures Check urine Legionella antigen Continue with azithromycin 500 mg by mouth daily Continue with Rocephin 2 g IV piggyback daily Tylenol for fever Acute respiratory viral panel negative for Covid RSV and influenza White count 11.4, afebrile Elevated d-dimer 1.8 CTA Scan of the chest negative for acute PE, however showed possible consolidation DuoNeb scheduled and when necessary Continue with home inhalers IV systemic steroids with methylprednisolone 60 mg IV every 6 hours Chronic conditions Chronic systolic CHF with left ventricular ejection fraction 20-25% Ischemic cardiomyopathy Discontinue IV fluids Daily weights Continue with Coreg, aspirin, statin, losartan home medications Elevated proBNP 8180 Diabetes mellitus Hyperglycemia Initially utilized Bolus doses of subcu insulin 10 units aspart to control blood sugar Continue with insulin sliding scale Hyponatremia Slightly elevated creatinine 1.38 Sodium 128 Continue to monitor Status post IV fluid hydration with normal saline, will discontinue for now due to history of CHF Repeat labs in the morning Hypertension Controlled Continue with Coreg and losartan home medications Full code DVT prophylaxis heparin subcu 3 times a day
[2023-06-14 06:00] LABS: Glucose,Whole Blood 299 mg/dL (70-110)
[2023-06-14] MEDS: INSULIN ASPART (NovoLOG) 100 UNIT/ML VIAL SQ SCH ×4 (06:13→22:18)
[2023-06-14] MEDS: methylPREDNISolone SOD SUCCI 125 MG/2 ML VIAL IV SCH ×4 (06:13→23:52)
[2023-06-14] MEDS: PANTOPRAZOLE 40 MG TABLET PO SCH (06:14)
[2023-06-14] MEDS: carvediloL 12.5 MG TAB PO SCH ×2 (07:55→22:15)
[2023-06-14] MEDS: HEPARIN SODIUM,PORCINE 5,000 UNIT/ML 1 ML VIAL SQ SCH ×3 (07:56→23:52)
[2023-06-14] MEDS: LOSARTAN 50 MG TAB PO SCH (07:56)
[2023-06-14] MEDS: ASPIRIN 81 MG PO SCH (07:56)
[2023-06-14] MEDS ORDERED: IPRATROPIUM-ALBUTEROL 3 ML NEB INHALATION SCH (08:00)
[2023-06-14] MEDS ORDERED: FUROSEMIDE 40 MG TAB PO SCH (09:00)
[2023-06-14] MEDS: IPRATROPIUM-ALBUTEROL 3 ML NEB INHALATION SCH ×4 (09:04→21:52)
[2023-06-14] MEDS: SYMBICORT 80-4.5 MCG INHALER INHALATION SCH ×2 (09:04→21:52)
[2023-06-14] MEDS: INSULIN DETEMIR (LEVEMIR) 100 UNIT/ML SYR SQ SCH (10:24)
[2023-06-14] MEDS: MULTIVITAMINS, THERA 1 EACH TAB PO SCH (10:24)
[2023-06-14 11:19] LABS: Glucose,Whole Blood 322 mg/dL (70-110)
[2023-06-14 12:37] LABS: African American GFR (CKD) 54 (>60 ml/min/1.73 sqM); Anion Gap 9 mmol/L; Blood Urea Nitrogen 28 mg/dL (9-20); Calcium 8.7 mg/dL (8.4-10.2); Carbon Dioxide 26 mmol/L (22-30); Chloride 99 mmol/L (98-107); Glucose 296 mg/dL (74-99); Non-African American GFR(CKD) 46 (>60 ml/min/1.73 sqM); Potassium 4.3 mmol/L (3.5-5.1); Sodium 134 mmol/L (137-145)
--- NOTE | 2023-06-14 13:21 | P.CNPUL ---
History of Present Illness Consult date: 06/14/23 Requesting physician: Nayeli Mabry Reason for consult: dyspnea, COPD, hypoxemia Chief complaint: Shortness of breath, cough, congestion History of present illness: This is a pleasant 53-year-old male patient with a known history of chronic obstructive pulmonary disease, former smoker quit in 2016, chronic cellulitis of the lower extremities, diabetes mellitus, congestive heart failure, hy perlipidemia. He presented to the emergency room yesterday by EMS from a urgent care center where he was found to have a O2 saturation of 88% on room air. He was having shortness of breath, cough and congestion. X-ray revealed early volume overload or atypical pneumonia. T angiogram ruled out pulmonary embolism. There is some possible pulmonary hypertension. [id number] left pleural effusion with adjacent opacity consistent with compressive atelectasis. There is an additional left lower lobe small patchy reticular nodular and groundglass opacity concerning for infectious/inflammatory process. White count 11.4. Hemoglobin 13.6. Platelets 257. D-dimer 1.83. Sodium 134. Potassium 4.3. Bicarb 26. BUN 28. Creatinine 1.66. Glucose 296. ProBNP 8180. Viral screen negative. He is seen today in consultation on the regular medical floor. He is currently sitting up in bed. Awake and alert in no acute distress. His oxygen saturations have improved and he is on room air with an O2 saturation of 97%. He is afebrile. Hemodynamically stable. He's been initiated on ceftriaxone and azithromycin along with Solu-Medrol, Symbicort and DuoNeb inhalations. Initiated on oral diuretics. Review of Systems REVIEW OF SYSTEMS: CONSTITUTIONAL: Denies any recent significant weight loss or weight gain. EYES: Denies change in vision. EARS, NOSE, MOUTH, THROAT: Denies headaches, denies sore throat. CARDIOVASCULAR: Denies chest pain, palpitations or syncopal episodes. RESPIRATORY: Positive for shortness of breath, cough, congestion no hemoptysis. GASTROINTESTINAL: Denies change in appetite, denies abdominal pain GENITOURINARY: Denies hematuria, denies infections. MUSKULOSKELETAL: Positive for chronic cellulitis and swelling of the lower extremities. INTEGUMENTARY: Denies rash, denies eczema. NEUROLOGICAL: Denies recent memory loss, no recent seizure activity. PSYCHIATRIC: Denies anxiety, denies depression. HEMATOLOGIC/LYMPHATIC: Denies anemia, denies enlarged lymph nodes. Past Medical History Past Medical History: Asthma, Coronary Artery Disease (CAD), Heart Failure, COPD, Diabetes Mellitus, Deep Vein Thrombosis (DVT), GERD/Reflux, Hyperlipidemia, Hypertension, Myocardial Infarction ([place]), Renal Disease, Sleep Apnea/CPAP/BIPAP, Vascular Disorder Additional Past Medical History / Comment(s): 02/20/16 OR with cardiac [id number] wore life vest for 7 weeks, 2010 DVT RIGHT leg, bilateral lower leg cellulitis, bilateral varicose veins, PVD, NIDDM type II, BERTRAND with CPAP. UTI Mar 2021, cellulitis with open wounds on bilateral lower legs being treated in wound center 2021 Last Myocardial Infarction Date:: 02/20/16 History of Any Multi-Drug Resistant Organisms: MRSA Date of last positivie culture/infection: 2017 MDRO Source:: bilateral legs Past Surgical History: Heart Catheterization With Stent Additional Past Surgical History / Comment(s): circumcision Additional Past Anesthesia/Blood Transfusion Reaction / Comment(s): Pt has never had anesthesia Date of Last Stent Placement:: 02/20/16 Past Psychological History: No Psychological Hx Reported Additional Psychological History / Comment(s): He is independent. Smoking Status: Former smoker Past Alcohol Use History: None Reported Additional Past Alcohol Use History / Comment(s): Pt states he started smoking at age 18 yrs and quit 02/20/16. Past Drug Use History: None Reported - Past Family History Father Family Medical History: Coronary Artery Disease (CAD), Diabetes Mellitus, Eye Disorder Additional Family Medical History / Comment(s): Bradycardia, blind. Father is in his early 70's. Mother Family Medical History: Coronary Artery Disease (CAD), Diabetes Mellitus Additional Family Medical History / Comment(s): Benign brain tumor. Mother is in her early 70's Medications and Allergies Home Medications Medication Instructions Recorded Confirmed Type Atorvastatin [Lipitor] 80 mg PO HS #30 tab 02/27/16 06/13/23 Rx Ipratropium/Albuterol Sulfate 1 puff INHALATION RT-QID 01/12/19 06/13/23 History [Combivent Respimat Inhaler] metFORMIN HCL [Glucophage] 1,000 mg PO BID 01/12/19 06/13/23 History Omeprazole 20 mg PO DAILY 03/14/19 06/13/23 History Aspirin EC [Ecotrin Low Dose] 81 mg PO DAILY 10/17/20 06/13/23 History Albuterol Nebulized [Ventolin 2.5 mg INHALATION RT-Q4H PRN 01/15/22 06/13/23 History Nebulized] Fluticasone Propion/Salmeterol 1 puff INHALATION RT-BID 01/15/22 06/13/23 History [Wixela 250-50 Inhub] Insulin Glargine,Hum.rec.anlog 40 unit SQ DAILY 01/15/22 06/13/23 History [Lantus Solostar Pen] Ipratropium [place] 0.2 mg INHALATION RT-Q6H PRN 01/15/22 06/13/23 History Multivitamins, Thera [Multivitamin 1 tab PO DAILY 01/15/22 06/13/23 History (formulary)] carvediloL 37.5 mg PO BID 01/15/22 06/13/23 History Empagliflozin [Jardiance] 25 mg PO DAILY 05/02/23 06/13/23 History Furosemide [Lasix] 40 mg PO DAILY #90 tab 05/05/23 06/13/23 Rx Losartan [Cozaar] 50 mg PO DAILY #90 tab 05/05/23 06/13/23 Rx Petrolat,White/Ronal/8-Hydroxyqu 1 gm TOPICAL DAILY 06/13/23 06/13/23 History [Bag [place]] Allergies Allergy/AdvReac Type Severity Reaction Status Date / Time tetracycline Allergy Rash/Hives Verified 06/13/23 18:29 Physical Exam Vitals: Vital Signs Temp Pulse Pulse Resp BP BP Pulse Ox 06/14/23 12:56 76 06/14/23 12:45 73 06/14/23 09:18 82 06/14/23 09:08 77 06/14/23 09:05 97 06/14/23 07:28 98.1 F 67 18 138/84 92 L 06/14/23 01:53 97.4 F L 73 20 110/73 93 L 06/14/23 00:40 22 06/13/23 22:20 98.6 F 76 22 121/80 91 L 06/13/23 20:00 77 20 92 L 06/13/23 19:00 76 22 87 L 06/13/23 17:46 72 06/13/23 17:33 76 06/13/23 17:00 76 11 L 92 L 06/13/23 16:54 98.8 F 77 24 136/67 97 06/13/23 16:53 95 Intake and Output 06/13/23 06/14/23 06/14/23 22:59 06:59 14:59 Other: # Voids 3 Weight 149.685 kg GENERAL EXAM: Alert, obese 53-year-old male, on room air, comfortable in no apparent distress. HEAD: Normocephalic. EYES: Normal reaction of pupils, equal size. NOSE: Clear with pink turbinates. THROAT: No erythema or exudates. NECK: No masses, no JVD. CHEST: No chest wall deformity. LUNGS: Equal air entry with bilateral wheeze, few scattered rhonchi, diminished. CVS: S1 and S2 normal with no audible murmur, regular rhythm. ABDOMEN: No hepatosplenomegaly, normal bowel sounds, no guarding or rigidity. SPINE: No scoliosis or deformity SKIN: No rashes CENTRAL NERVOUS SYSTEM: No focal deficits, tone is normal in all 4 extremities. EXTREMITIES: There is changes of chronic venous stasis. No clubbing, no cyanosis. Peripheral pulses are intact. Results - Laboratory Findings CBC and BMP: 06/13/23 17:24 06/14/23 10:46 PT/INR, D-dimer PT 11.1 sec (10.0-12.5) 06/13/23 17:24 INR 1.0 (<1.2) 06/13/23 17:24 D-Dimer 1.83 mg/L FEU (<0.60) H 06/13/23 17:24 Abnormal lab findings: Abnormal Labs 06/13/23 06/13/23 06/13/23 17:24 17:24 17:24 WBC 11.4 H Neutrophils # 10.0 H Lymphocytes # 0.7 L D-Dimer 1.83 H Sodium 128 L Chloride 93 L BUN Creatinine 1.38 H Glucose 216 H POC Glucose (mg/dL) Total Bilirubin 1.5 H Total Protein 6.0 L Albumin 2.8 L 06/13/23 06/14/23 06/14/23 22:38 01:45 04:24 WBC Neutrophils # Lymphocytes # D-Dimer Sodium Chloride BUN Creatinine Glucose POC Glucose (mg/dL) 401 H 357 H 290 H Total Bilirubin Total Protein Albumin 06/14/23 06/14/23 06/14/23 05:58 10:46 11:18 WBC Neutrophils # Lymphocytes # D-Dimer Sodium 134 L Chloride BUN 28 H Creatinine 1.66 H Glucose 296 H POC Glucose (mg/dL) 299 H 322 H Total Bilirubin Total Protein Albumin - Diagnostic Findings Chest x-ray: image reviewed CT scan - chest: image reviewed Assessment and Plan Assessment: Acute hypoxemic respiratory failure secondary to suspected early pneumonia and acute exacerbation of systolic congestive heart failure patient with a known ejection fraction of 20-25%. BNP 8180 History of systolic congestive heart failure, recent admission for exacerbation Ischemic cardiomyopathy Acute kidney injury History of ventricular fibrillation cardiac arrest with previous LifeVest placement Chronic obstructive pulmonary disease Former smoker Obstructive sleep apnea Peripheral vascular disease Chronic lower extremity venous stasis/cellulitis Diabetes mellitus Obesity Hyperlipidemia Hypertension Plan: The patient was seen and evaluated Chest x-ray, CAT scan, labs and medications reviewed Check a pro-calcitonin Continue ceftriaxone and azithromycin for now Continue diuretics Continue bronchodilators, steroids We will continue to follow and make further recommendations based on his clinical status I have personally seen and examined the patient, performed the documentation and the assessment and plan as written. Number of minutes spent on the visit: 20.
--- NOTE | 2023-06-14 14:30 | XR ---
EXAMINATION TYPE: XR chest 2V DATE OF EXAM: 06/14/2023 COMPARISON: 06/13/2023 INDICATION: Pneumonia TECHNIQUE: Frontal and lateral views of the chest are obtained. FINDINGS: The heart size is normal. The pulmonary vasculature is normal. The lungs are clear. IMPRESSION: 1. No acute pulmonary process.
--- NOTE | 2023-06-14 16:32 | P.PN ---
Subjective Progress Note Date: 06/14/23 Hospital course: Patient is a very pleasant 53-year-old male with a past medical history of CAD status post cardiac arrest, ischemic cardiomyopathy with chronic systolic heart failure with EF of 20%, hypertension, hyperlipidemia, COPD, and insulin- dependent diabetes mellitus. He presented to the emergency department 06/13/23 secondary to shortness of breath, cough, and wheezing. Patient reports these symptoms progressively worsening over the past 4-5 days. Patient underwent full evaluation in the emergency department. Labs were completed and reviewed. CBC showing leukocytosis with WBC count of 11.4. Coagulation profile normal findings with the exception of elevated d-dimer of 1.83. BMP showing hyponatremia with sodium 128, hypochloremia with chloride of 93, BUN 19, cre atinine 1.38, and GFR 58 along with hyperglycemia with glucose of 401 (making corrected sodium 133). Lactic acid 1.4. Liver profile unremarkable with the exception of elevated total bili of 1.5. Influenza A, influenza B, RSV, and Covid PCR were negative. EKG showing normal sinus rhythm at 73 bpm with T-wave inversion in leads 1, 2, aVL and V3 through V6 (T-wave inversion is unchanged when compared to EKG completed 05/06/23) upon personal review, comparison and interpretation. CT completed secondary to elevated d-dimer showing no evidence of pulmonary emboli revealing borderline mildly enlarged pulmonary trunk concerning for pulmonary hypertension, moderate coronary arterial calcificatio ns, small to moderate size left pleural effusion, left lower lobe patchy reticulonodular and groundglass opacity, and partially seen nodular density in the upper left quadrant of the abdomen possibly normal etiology but recommend outpatient nonemergent CT for further evaluation. Physical exam: Vital signs reviewed and stable. General: Nontoxic, no distress and appears stated age. Derm: Skin warm and dry, normal coloration for ethnicity. Head: Atraumatic, normocephalic and symmetric. Eyes: EOMs intact, no lid lag, and anicteric sclera Mouth: no lip lesions, mucus membranes moist Cardiovascular: regular rate and rhythm with normal S1S2, no murmur, positive posterior tibial pulses bilaterally, and cap refill < 2 seconds. Lungs: Respirations even, regular, and unlabored on room air. Lungs diminished with soft expiratory wheezes. No rhonchi, rales, or crackles noted. No accessory muscle usage. Abdominal: Obese soft, nontender to palpation, no guarding, no appreciable organomegaly Ext: ROM intact. No gross muscle atrophy, 2+ bilateral lower extremity edema, no contractures. Venous discoloration to bilateral lower extremities with excessive scaling skin. Neuro: Speech clear, face symmetrical and CN II-XII grossly intact with no noted focal neuro deficits Psych: Alert and oriented to person, place, time, and situation. Appropriate and pleasant affect. Assessment and Plan of Care: Community-acquired pneumonia COPD exacerbation Ischemic cardiomyopathy with chronic systolic heart failure with,EF 20-25% Hyponatremia, improved Acute kidney injury History of CAD status post cardiac arrest and stenting Hypertension Hyperlipidemia -Consult pulmonology, appreciate recommendations -Consult cardiology, appreciate recommendations -Oxygenation to be administered and titrated as needed to maintain SPO2 equal to or greater than 92% -Telemetry monitoring. -Monitor Pulse-oximetry -Duonebs scheduled for times daily and as needed for SOB and/or wheezing -Incentive Spirometry -Steroids: Solu-Medrol 60 mg IVP every 6 hours -Antibiotics: Azithromycin and Rocephin -Sputum culture, Legionella antigen -Blood cultures -Renal function elevating to BUN of 28, creatinine 1.66, GFR 46. Patient to continue with 0.9% normal saline at 75 mL per hour. We will repeat renal function with a.m. labs. Insulin-dependent diabetes mellitus with hyperglycemia -Patient to continue Levemir 40 units daily and has been placed on glycemic protocol with NovoLog sliding scale. Nodular density left upper quadrant of abdomen -Unclear etiology possible normal etiology. However recommend outpatient nonemergent CT for follow-up and further evaluation after completion of treatment for current infection. Data and imaging reviewed: -Morning labs reviewed. Sodium improving from previous 128-134 and hypochloremia resolved with previous chloride of 93 and repeat chloride of 99. Renal function also elevating with BUN of 28, creatinine 1.66, GFR 46. -Vital signs reviewed. Blood pressure 138/84, heart rate 67, respiratory rate 18, temp 98.1F, and SpO2 of 92% on room air. CODE STATUS: Full code DVT prophylaxis: Heparin Anticipated discharge date: 24-[address]: Home Patient was seen independently by Nurse Pracitioner. This document was prepared using [employer] dictation software. Please allow for errors in clinical quality manager, while rare they do occur. Objective - Vital Signs Vital signs: Vital Signs Temp 98.1 F 06/14/23 07:28 Pulse 67 06/14/23 07:28 Resp 18 06/14/23 07:28 BP 138/84 06/14/23 07:28 Pulse Ox 92 L 06/14/23 07:28 FiO2 Intake & Output 06/13/23 06/14/23 06/14/23 18:59 06:59 18:59 Weight 149.685 kg 149.685 kg Other: # Voids 3 - Labs CBC & Chem 7: 06/13/23 17:24 06/14/23 10:46 Labs: Abnormal Lab Results - Last 24 Hours (Table) 06/13/23 06/13/23 06/13/23 Range/Units 17:24 17:24 17:24 WBC 11.4 H (3.8-10.6) k/uL Neutrophils # 10.0 H (1.3-7.7) k/uL Lymphocytes # 0.7 L (1.0-4.8) k/uL D-Dimer 1.83 H (<0.60) mg/L FEU Sodium 128 L (137-145) mmol/L Chloride 93 L (98-107) mmol/L Creatinine 1.38 H (0.66-1.25) mg/dL Glucose 216 H (74-99) mg/dL POC Glucose (mg/dL) (70-110) mg/dL Total Bilirubin 1.5 H (0.2-1.3) mg/dL Total Protein 6.0 L (6.3-8.2) g/dL Albumin 2.8 L (3.5-5.0) g/dL 06/13/23 06/14/23 06/14/23 Range/Units 22:38 01:45 04:24 WBC (3.8-10.6) k/uL Neutrophils # (1.3-7.7) k/uL Lymphocytes # (1.0-4.8) k/uL D-Dimer (<0.60) mg/L FEU Sodium (137-145) mmol/L Chloride (98-107) mmol/L Creatinine (0.66-1.25) mg/dL Glucose (74-99) mg/dL POC Glucose (mg/dL) 401 H 357 H 290 H (70-110) mg/dL Total Bilirubin (0.2-1.3) mg/dL Total Protein (6.3-8.2) g/dL Albumin (3.5-5.0) g/dL 06/14/23 Range/Units 05:58 WBC (3.8-10.6) k/uL Neutrophils # (1.3-7.7) k/uL Lymphocytes # (1.0-4.8) k/uL D-Dimer (<0.60) mg/L FEU Sodium (137-145) mmol/L Chloride (98-107) mmol/L Creatinine (0.66-1.25) mg/dL Glucose (74-99) mg/dL POC Glucose (mg/dL) 299 H (70-110) mg/dL Total Bilirubin (0.2-1.3) mg/dL Total Protein (6.3-8.2) g/dL Albumin (3.5-5.0) g/dL
[2023-06-14 17:01] LABS: Glucose,Whole Blood 420 mg/dL (70-110)
--- NOTE | 2023-06-14 18:38 | P.CRDCN ---
History of Present Illness Consult date: 06/14/23 History of present illness: HISTORY OF PRESENTING ILLNESS 53-year-old with past medical history of COPD, CHF, type 2 diabetes mellitus, EF of 20%, obesity. He has chronic lower extremity swelling with skin changes. He presented to the hospital with worsening shortness of breath and cough. Patient felt that he is having a flareup of his bronchitis. On admission he had significant wheezing, coughing with white sputum production. Other diagnoses evaluation he felt significantly better. He reports that his clinical symptoms improved significantly with the medications he got in the ER Creatinine 1.66. Baseline around 1.2. BNP 8000, hemoglobin 13 Review on , heart rate 80 REVIEW OF SYSTEMS 14 point review of system is negative except what is mentioned above in HPI. PHYSICAL EXAMINATION Vital signs reviewed. Head: Normocephalic. Eyes: Sclerae nonicteric. Neck: Brisk carotid upstroke, no jugular venous distention. Lungs: Clear to auscultation. Heart: Regular rate and rhythm, S1-S2, no S3, no murmur or rub. Abdomen: Soft nontender, positive bowel sounds no organomegaly. Extremities: No edema, intact distal pulses. Neuro: Alert, oritented, no focal deficits ASSESSMENT [id number] COPD exacerbation Mild CHF exacerbation History of cardiomyopathy with EF of 20-25%, ischemic cardiomyopathy CHAVO on CKD, creatinine 1.6. Baseline around 1.2 Type II Diabetes Essential hypertension Dyslipidemia Chronic lower extremity swelling with skin changes Morbid obesity PLAN Continue aspirin, atorvastatin. Continue Coreg 37.5 minutes twice a day. Uptitrate to 50 mg twice a day tomorrow if blood pressure heart heart rate tolerates Start Bumex 1 mg by mouth daily from tomorrow. Discharge him on Bumex instead of Lasix Continue losartan 50 mg daily Follow renal function. Once kidney function improves, start Jardiance and Aldactone. Make sure he is on Cardizem and aldactone at the time of discharge Past Medical History Past Medical History: Asthma, Coronary Artery Disease (CAD), Heart Failure, COPD, Diabetes Mellitus, Deep Vein Thrombosis (DVT), GERD/Reflux, Hyperlipidemia, Hypertension, Myocardial Infarction (PR), Renal Disease, Sleep Apnea/CPAP/BIPAP, Vascular Disorder Additional Past Medical History / Comment(s): 02/20/16 PR with cardiac arrest -Vfib-pt wore life vest for 7 weeks, 2010 DVT RIGHT leg, bilateral lower leg cellulitis, bilateral varicose veins, PVD, NIDDM type II, BERTRAND with CPAP. UTI Mar 2021, cellulitis with open wounds on bilateral lower legs being treated in wound center 2021 Last Myocardial Infarction Date:: 02/20/16 History of Any Multi-Drug Resistant Organisms: MRSA Date of last positivie culture/infection: 2017 MDRO Source:: bilateral legs Past Surgical History: Heart Catheterization With Stent Additional Past Surgical History / Comment(s): circumcision Additional Past Anesthesia/Blood Transfusion Reaction / Comment(s): Pt has never had anesthesia Date of Last Stent Placement:: 02/20/16 Past Psychological History: No Psychological Hx Reported Additional Psychological History / Comment(s): He is independent. Smoking Status: Former smoker Past Alcohol Use History: None Reported Additional Past Alcohol Use History / Comment(s): Pt states he started smoking at age 18 yrs and quit 02/20/16. Past Drug Use History: None Reported - Past Family History Father Family Medical History: Coronary Artery Disease (CAD), Diabetes Mellitus, Eye Disorder Additional Family Medical History / Comment(s): Bradycardia, blind. Father is in his early 70's. Mother Family Medical History: Coronary Artery Disease (CAD), Diabetes Mellitus Additional Family Medical History / Comment(s): Benign brain tumor. Mother is in her early 70's Medications and Allergies Home Medications Medication Instructions Recorded Confirmed Type Atorvastatin [Lipitor] 80 mg PO HS #30 tab 02/27/16 06/13/23 Rx Ipratropium/Albuterol Sulfate 1 puff INHALATION RT-QID 01/12/19 06/13/23 History [Combivent Respimat Inhaler] metFORMIN HCL [Glucophage] 1,000 mg PO BID 01/12/19 06/13/23 History Omeprazole 20 mg PO DAILY 03/14/19 06/13/23 History Aspirin EC [Ecotrin Low Dose] 81 mg PO DAILY 10/17/20 06/13/23 History Albuterol Nebulized [Ventolin 2.5 mg INHALATION RT-Q4H PRN 01/15/22 06/13/23 History Nebulized] Fluticasone Propion/Salmeterol 1 puff INHALATION RT-BID 01/15/22 06/13/23 History [Wixela 250-50 Inhub] Insulin Glargine,Hum.rec.anlog 40 unit SQ DAILY 01/15/22 06/13/23 History [Lantus Solostar Pen] Ipratropium [place] 0.2 mg INHALATION RT-Q6H PRN 01/15/22 06/13/23 History Multivitamins, Thera [Multivitamin 1 tab PO DAILY 01/15/22 06/13/23 History (formulary)] carvediloL 37.5 mg PO BID 01/15/22 06/13/23 History Empagliflozin [Jardiance] 25 mg PO DAILY 05/02/23 06/13/23 History Furosemide [Lasix] 40 mg PO DAILY #90 tab 05/05/23 06/13/23 Rx Losartan [Cozaar] 50 mg PO DAILY #90 tab 05/05/23 06/13/23 Rx Petrolat,White/Ronal/8-Hydroxyqu 1 gm TOPICAL DAILY 06/13/23 06/13/23 History [Bag [place]] Allergies Allergy/AdvReac Type Severity Reaction Status Date / Time tetracycline Allergy Rash/Hives Verified 06/13/23 18:29 Physical Exam Vitals: Vital Signs Temp Pulse Pulse Resp BP Pulse Ox 06/14/23 17:20 99.6 F 80 18 144/98 96 06/14/23 17:07 78 06/14/23 16:56 74 06/14/23 12:56 76 06/14/23 12:45 73 06/14/23 09:18 82 06/14/23 09:08 77 06/14/23 09:05 97 06/14/23 07:28 98.1 F 67 18 138/84 92 L 06/14/23 01:53 97.4 F L 73 20 110/73 93 L 06/14/23 00:40 22 06/13/23 22:20 98.6 F 76 22 121/80 91 L 06/13/23 20:00 77 20 92 L 06/13/23 19:00 76 22 87 L Intake and Output 06/14/23 06/14/23 06/14/23 06:59 14:59 22:59 Intake Total 290 Balance 290 Intake: Intake, IV Titration 290 Amount Sodium Chloride 0.9% 1, 240 000 ml @ 75 mls/hr IV . [id number] STA Rx#:[id number] cefTRIAXone 2 gm In 50 Sodium Chloride 0.9% 50 ml @ 100 mls/hr IVPB Q24HR [facility] Rx#:[id number] Other: # Voids 3 2 Results 06/13/23 17:24 06/14/23 10:46 Cardiac Enzymes 06/13/23 Range/Units 17:24 AST 47 (17-59) U/L Coagulation 06/13/23 Range/Units 17:24 PT 11.1 (10.0-12.5) sec APTT 27.7 (22.0-30.0) sec Comprehensive Metabolic Panel 06/13/23 06/14/23 Range/Units 17:24 10:46 Sodium 128 L 134 L (137-145) mmol/L Potassium 4.7 4.3 (3.5-5.1) mmol/L Chloride 93 L 99 (98-107) mmol/L Carbon Dioxide 29 26 (22-30) mmol/L BUN 19 28 H (9-20) mg/dL Creatinine 1.38 H 1.66 H (0.66-1.25) mg/dL Glucose 216 H 296 H (74-99) mg/dL Calcium 8.4 8.7 (8.4-10.2) mg/dL AST 47 (17-59) U/L ALT 17 (4-49) U/L Alkaline Phosphatase 86 (38-126) U/L Total Protein 6.0 L (6.3-8.2) g/dL Albumin 2.8 L (3.5-5.0) g/dL Current Medications Generic Name Dose Route Start Last Admin Trade Name Freq PRN Reason Stop Dose Admin Albuterol/Ipratropium 3 ml 06/13/23 20:50 Ipratropium-Albuterol 3 Ml Neb INHALATION RT-Q4H PRN shortness of breath Albuterol/Ipratropium 3 ml 06/14/23 08:45 06/14/23 16:55 Ipratropium-Albuterol 3 Ml Neb INHALATION 3 ml RT-QID [facility] Administration Aspirin 81 mg 06/14/23 09:00 06/14/23 07:56 Aspirin 81 Mg PO 81 mg DAILY [facility] Administration Atorvastatin Calcium 80 mg 06/14/23 21:00 Atorvastatin 80 Mg Tab PO HS [facility] Azithromycin 500 mg 06/14/23 21:00 Azithromycin 500 Mg Tab PO 06/15/23 21:01 DAILY@2100 [facility] Protocol Budesonide/Formoterol Fumarate 2 puff 06/14/23 08:00 06/14/23 09:04 Symbicort 80-4.5 Mcg Inhaler INHALATION 2 puff RT-BID [facility] Administration Bumetanide 1 mg 06/15/23 09:00 Bumetanide 1 Mg Tab PO DAILY [facility] Carvedilol 37.5 mg 06/14/23 09:00 06/14/23 07:55 Carvedilol 12.5 Mg Tab PO 37.5 mg BID [facility] Administration Dextrose/Water 25 ml 06/14/23 05:13 Dextrose 50% Syringe 50 Ml IVP PER PROTOCOL PRN Hypoglycemia Protocol Dextrose/Water 50 ml 06/14/23 05:13 Dextrose 50% Syringe 50 Ml IVP PER PROTOCOL PRN Hypoglycemia Protocol Heparin Sodium (Porcine) 5,000 unit 06/14/23 08:00 06/14/23 15:45 Heparin Sodium,Porcine 5,000 Unit/Ml 1 Ml Vial SQ 5,000 unit Q8HR [facility] Administration Ceftriaxone Sodium 2 gm/ 50 mls @ 100 mls/hr 06/14/23 09:00 06/14/23 07:56 Sodium Chloride IVPB 06/17/23 09:29 100 mls/hr Q24HR [facility] Administration Protocol Insulin Aspart 0 unit 06/14/23 07:30 06/14/23 17:26 Insulin Aspart (Novolog) 100 Unit/Ml Vial SQ 18 unit ACHS [facility] Administration Protocol Insulin Detemir 40 unit 06/14/23 09:00 06/14/23 10:24 Insulin Detemir (Levemir) 100 Unit/Ml Syr SQ 40 unit DAILY@0700 [facility] Administration Losartan Potassium 50 mg 06/14/23 09:00 06/14/23 07:56 Losartan 50 Mg Tab PO 50 mg DAILY [facility] Administration Methylprednisolone Sodium Succinate 60 mg 06/14/23 00:00 06/14/23 17:57 Methylprednisolone Sod Succi 125 Mg/2 Ml Vial IV 60 mg Q6HR [facility] Administration Miscellaneous Information 1 each 06/13/23 20:50 Pneumonia Protocol Utilized 1 Each Misc PO ONCE PRN Per Protocol Multivitamins 1 each 06/14/23 09:00 06/14/23 10:24 Multivitamins, Thera 1 Each Tab PO 1 each DAILY [facility] Administration Pantoprazole Sodium 40 mg 06/14/23 07:30 06/14/23 06:14 Pantoprazole 40 Mg Tablet PO 40 mg [id number] [facility] Administration Intake and Output 06/14/23 06/14/23 06/14/23 06:59 14:59 22:59 Intake Total 290 Balance 290 Intake: Intake, IV Titration 290 Amount Sodium Chloride 0.9% 1, 240 000 ml @ 75 mls/hr IV . [id number] STA Rx#:[id number] cefTRIAXone 2 gm In 50 Sodium Chloride 0.9% 50 ml @ 100 mls/hr IVPB Q24HR [facility] Rx#:[id number] Other: # Voids 3 2 06/13/23 17:24 06/14/23 10:46
[2023-06-14 19:53] LABS: Glucose,Whole Blood 442 mg/dL (70-110)
[2023-06-14] MEDS: ATORVASTATIN 80 MG TAB PO SCH (22:15)
[2023-06-14] MEDS: AZITHROMYCIN 500 MG TAB PO SCH (22:16)
[2023-06-14 22:21] LABS: Glucose,Whole Blood 478 mg/dL (70-110)
[2023-06-14] MEDS ORDERED: INSULIN DETEMIR (LEVEMIR) 100 UNIT/ML SYR SQ ONE (23:08)
[2023-06-15 05:34] LABS: Glucose,Whole Blood 294 mg/dL (70-110)
[2023-06-15] MEDS: methylPREDNISolone SOD SUCCI 125 MG/2 ML VIAL IV SCH ×4 (05:54→23:21)
[2023-06-15] MEDS: carvediloL 12.5 MG TAB PO SCH ×2 (07:21→17:19)
[2023-06-15] MEDS: HEPARIN SODIUM,PORCINE 5,000 UNIT/ML 1 ML VIAL SQ SCH ×3 (07:21→23:21)
[2023-06-15] MEDS: INSULIN ASPART (NovoLOG) 100 UNIT/ML VIAL SQ SCH ×6 (07:21→21:07)
[2023-06-15] MEDS: LOSARTAN 50 MG TAB PO SCH (07:21)
[2023-06-15] MEDS: INSULIN DETEMIR (LEVEMIR) 100 UNIT/ML SYR SQ SCH (07:21)
[2023-06-15] MEDS: ASPIRIN 81 MG PO SCH (07:21)
[2023-06-15] MEDS: MULTIVITAMINS, THERA 1 EACH TAB PO SCH (07:21)
[2023-06-15] MEDS: PANTOPRAZOLE 40 MG TABLET PO SCH (07:22)
[2023-06-15] MEDS: BUMETANIDE 1 MG TAB PO SCH (07:22)
[2023-06-15 08:37] LABS: HCT 37.9 % (39.6-50.0); HGB 12.7 g/dL (13.0-17.0); MCH 29.2 pg (27.0-32.0); MCHC 33.5 g/dL (32.0-37.0); MCV 87.1 FL (80.0-97.0); Mean Platelet Volume 11.4 FL (9.5-12.2); NRBC Per 100 WBC 0 X 10*3/uL (0.00-0.01); Platelet Count 327 X 10*3/uL (140-440); RBC 4.35 X 10*6/uL (4.40-5.60); RDW 14.7 % (11.5-14.5); WBC 16.19 X 10*3/uL (4.50-10.00)
[2023-06-15 08:57] LABS: ALT 11 U/L (10-49); AST 10 U/L (14-35); Albumin 2.7 g/dL (3.8-4.9); Alkaline Phosphatase 91 U/L (41-126); BUN/Creat Ratio 21.53 Ratio (12.00-20.00); Blood Urea Nitrogen 36.6 mg/dL (9.0-27.0); Carbon Dioxide 23.6 mmol/L (21.6-31.8); Chloride 99 mmol/L (96-109); Globulin 2.7 g/dL (1.6-3.3); Glucose 279 mg/dL (70-110); Magnesium 2.3 mg/dL (1.5-2.4); Potassium 4.2 mmol/L (3.5-5.5); Sodium 134 mmol/L (135-145); Total Bilirubin 0.2 mg/dL (0.3-1.2); Total Protein 5.4 g/dL (6.2-8.2)
[2023-06-15] MEDS: SYMBICORT 80-4.5 MCG INHALER INHALATION SCH ×2 (08:59→21:16)
[2023-06-15] MEDS: IPRATROPIUM-ALBUTEROL 3 ML NEB INHALATION SCH ×4 (08:59→21:16)
--- NOTE | 2023-06-15 10:53 | P.PN ---
Subjective HISTORY OF PRESENT ILLNESS: Patient examined this morning at the bedside. Patient denies chest pain or pressure. He denies shortness of breath. He reports having a sore throat and sinus drainage. Patient's vital signs are stable. He has been transitioned to oral diuretics. PHYSICAL EXAM: VITAL SIGNS: Reviewed. GENERAL: Well-developed in no acute distress. NECK: Supple. No JVD or thyromegaly LUNGS: Respirations even and unlabored. Lungs essentially clear to auscultation bilaterally. HEART: Regular rate and rhythm. S1 and S2 heard. EXTREMITIES: Normal range of motion. No clubbing or cyanosis. Peripheral pulses intact. Trace bilateral lower extremity edema with dry flaking skin ASSESSMENT: [id number] COPD exacerbation Mild CHF exacerbation History of cardiomyopathy with EF of 20-25%, ischemic cardiomyopathy CHAVO on CKD, creatinine 1.6. Baseline around 1.2 Type II Diabetes Essential hypertension Dyslipidemia Chronic lower extremity swelling with skin changes Morbid obesity PLAN: Decrease carvedilol to 25 mg twice a day Continue additional cardiac medications Patient is currently stable from a cardiac standpoint No further inpatient recommendations We will sign off. Please reconsult if needed. Nurse practitioner note has been reviewed by physician. Signing provider agrees with the documented findings, assessment, and plan of care. Objective - Vital Signs Vital signs: Vital Signs Temp 98.3 F 06/15/23 07:19 Pulse 68 06/15/23 10:41 Resp 17 06/15/23 10:41 BP 147/80 06/15/23 07:19 Pulse Ox 96 06/15/23 09:03 FiO2 Intake & Output 06/14/23 06/15/23 06/15/23 18:59 06:59 18:59 Intake Total 290 Balance 290 Intake: Intake, IV Titration 290 Amount Sodium Chloride 0.9% 1, 240 000 ml @ 75 mls/hr IV . [id number] STA Rx#:[id number] cefTRIAXone 2 gm In 50 Sodium Chloride 0.9% 50 ml @ 100 mls/hr IVPB Q24HR [facility] Rx#:[id number] Other: # Voids 2 2 - Labs CBC & Chem 7: 06/15/23 05:47 06/15/23 05:47 Labs: Abnormal Lab Results - Last 24 Hours (Table) 06/14/23 06/14/23 06/14/23 Range/Units 10:46 10:46 11:18 WBC (4.50-10.00) X 10*3/uL RBC (4.40-5.60) X 10*6/uL Hgb (13.0-17.0) g/dL Hct (39.6-50.0) % RDW (11.5-14.5) % Sodium 134 L (137-145) mmol/L BUN 28 H (9-20) mg/dL Creatinine 1.66 H (0.66-1.25) mg/dL Est GFR (CKD-EPI) (>=60) BUN/Creatinine Ratio (12.00-20.00) Ratio Glucose 296 H (74-99) mg/dL POC Glucose (mg/dL) 322 H (70-110) mg/dL Hemoglobin A1c (<=6.0) % Total Bilirubin (0.3-1.2) mg/dL AST (14-35) U/L Total Protein (6.2-8.2) g/dL Albumin (3.8-4.9) g/dL Albumin/Globulin Ratio (1.60-3.17) Ratio Procalcitonin 5.20 H (0.02-0.09) ng/mL 06/14/23 06/14/23 06/14/23 Range/Units 16:59 19:52 22:11 WBC (4.50-10.00) X 10*3/uL RBC (4.40-5.60) X 10*6/uL Hgb (13.0-17.0) g/dL Hct (39.6-50.0) % RDW (11.5-14.5) % Sodium (137-145) mmol/L BUN (9-20) mg/dL Creatinine (0.66-1.25) mg/dL Est GFR (CKD-EPI) (>=60) BUN/Creatinine Ratio (12.00-20.00) Ratio Glucose (74-99) mg/dL POC Glucose (mg/dL) 420 H 442 H 478 H (70-110) mg/dL Hemoglobin A1c (<=6.0) % Total Bilirubin (0.3-1.2) mg/dL AST (14-35) U/L Total Protein (6.2-8.2) g/dL Albumin (3.8-4.9) g/dL Albumin/Globulin Ratio (1.60-3.17) Ratio Procalcitonin (0.02-0.09) ng/mL 06/15/23 06/15/23 06/15/23 Range/Units 05:32 05:47 05:47 WBC 16.19 H (4.50-10.00) X 10*3/uL RBC 4.35 L (4.40-5.60) X 10*6/uL Hgb 12.7 L (13.0-17.0) g/dL Hct 37.9 L (39.6-50.0) % RDW 14.7 H (11.5-14.5) % Sodium (137-145) mmol/L BUN (9-20) mg/dL Creatinine (0.66-1.25) mg/dL Est GFR (CKD-EPI) (>=60) BUN/Creatinine Ratio (12.00-20.00) Ratio Glucose (74-99) mg/dL POC Glucose (mg/dL) 294 H (70-110) mg/dL Hemoglobin A1c 10.1 H (<=6.0) % Total Bilirubin (0.3-1.2) mg/dL AST (14-35) U/L Total Protein (6.2-8.2) g/dL Albumin (3.8-4.9) g/dL Albumin/Globulin Ratio (1.60-3.17) Ratio Procalcitonin (0.02-0.09) ng/mL 06/15/23 Range/Units 05:47 WBC (4.50-10.00) X 10*3/uL RBC (4.40-5.60) X 10*6/uL Hgb (13.0-17.0) g/dL Hct (39.6-50.0) % RDW (11.5-14.5) % Sodium 134 L (137-145) mmol/L BUN 36.6 H (9-20) mg/dL Creatinine 1.7 H (0.66-1.25) mg/dL Est GFR (CKD-EPI) 48 L (>=60) BUN/Creatinine Ratio 21.53 H (12.00-20.00) Ratio Glucose 279 H (74-99) mg/dL POC Glucose (mg/dL) (70-110) mg/dL Hemoglobin A1c (<=6.0) % Total Bilirubin 0.2 L (0.3-1.2) mg/dL AST 10 L (14-35) U/L Total Protein 5.4 L (6.2-8.2) g/dL Albumin 2.7 L (3.8-4.9) g/dL Albumin/Globulin Ratio 1.00 L (1.60-3.17) Ratio Procalcitonin (0.02-0.09) ng/mL
[2023-06-15 12:04] LABS: Glucose,Whole Blood 420 mg/dL (70-110)
--- NOTE | 2023-06-15 13:22 | P.PN ---
Subjective Progress Note Date: 06/15/23 This is a pleasant 53-year-old male patient with a known history of chronic obstructive pulmonary disease, former smoker quit in 2016, chronic cellulitis of the lower extremities, diabetes mellitus, congestive heart failure, hyperlipidemia. He presented to the emergency room yesterday by EMS from a [facility] where he was found to have a O2 saturation of 88% on room air. He was having shortness of breath, cough and congestion. X-ray revealed early volume overload or atypical pneumonia. T angiogram ruled out pulmonary embolism. There is some possible pulmonary hypertension. [id number] left pleural effusion with adjacent opacity consistent with compressive atelectasis. There is an additional left lower lobe small patchy reticular nodular and groundglass opacity concerning for infectious/inflammatory process. White count 11.4. Hemoglobin 13.6. Platelets 257. D-dimer 1.83. Sodium 134. Potassium 4.3. Bicarb 26. BUN 28. Creatinine 1.66. Glucose 296. ProBNP 8180. Viral screen negative. He is seen today in consultation on the regular medical floor. He is currently sitting up in bed. Awake and alert in no acute distress. His oxygen saturations have improved and he is on room air with an O2 saturation of 97%. He is afebrile. Hemodynamically stable. He's been initiated on ceftriaxone and azithromycin along with Solu-Medrol, Symbicort and DuoNeb inhalations. Initiated on oral diuretics. On today's evaluation of 06/15/2023, the patient is feeling better. Is on room air oxygen. He reports improvement in his lower extremity edema. He has chronic edema and venous stasis in the lower extremities along with superficial skin ulceration. His chest x-ray is consistent with no acute abnormalities. No airspace disease or consolidations. The patient was echoes at 16.1 with a hemoglobin of 12.7. Sodium level is at 134, BUN is at 36 with a creatinine of 1.7 and a serum bicarb is at 23. LFTs are normal. His pro calcitonin level is at 5.2. The viral screen came back negative for any viral infections. For the time being, the patient is on IV Rocephin 2 g every 24 hours. The patient is also on bronchodilators, Symbicort as maintenance, IV Solu-Medrol, and is also on Bumex 1 mg by mouth daily. Objective - Vital Signs Vital signs: Vital Signs Temp 98.3 F 06/15/23 07:19 Pulse 71 06/15/23 12:18 Resp 17 06/15/23 10:41 BP 147/80 06/15/23 07:19 Pulse Ox 96 06/15/23 09:03 FiO2 Intake & Output 06/14/23 06/15/23 06/15/23 18:59 06:59 18:59 Intake Total 290 Balance 290 Intake: Intake, IV Titration 290 Amount Sodium Chloride 0.9% 1, 240 000 ml @ 75 mls/hr IV . [id number] [facility] Rx#:[id number] cefTRIAXone 2 gm In 50 Sodium Chloride 0.9% 50 ml @ 100 mls/hr IVPB Q24HR [facility] Rx#:[id number] Other: # Voids 2 2 - Exam GENERAL EXAM: Alert, obese 53-year-old male, on room air, comfortable in no apparent distress. HEAD: Normocephalic. EYES: Normal reaction of pupils, equal size. NOSE: Clear with pink turbinates. THROAT: No erythema or exudates. NECK: No masses, no JVD. CHEST: No chest wall deformity. LUNGS: Equal air entry with bilateral wheeze, few scattered rhonchi, diminished. CVS: S1 and S2 normal with no audible murmur, regular rhythm. ABDOMEN: No hepatosplenomegaly, normal bowel sounds, no guarding or rigidity. SPINE: No scoliosis or deformity SKIN: No rashes CENTRAL NERVOUS SYSTEM: No focal deficits, tone is normal in all 4 extremities. EXTREMITIES: There is changes of chronic venous stasis. No clubbing, no cyanosis. Peripheral pulses are intact. - Labs CBC & Chem 7: 06/15/23 05:47 06/15/23 05:47 Labs: Abnormal Lab Results - Last 24 Hours (Table) 06/14/23 06/14/23 06/14/23 Range/Units 10:46 16:59 19:52 WBC (4.50-10.00) X 10*3/uL RBC (4.40-5.60) X 10*6/uL Hgb (13.0-17.0) g/dL Hct (39.6-50.0) % RDW (11.5-14.5) % Sodium (135-145) mmol/L BUN (9.0-27.0) mg/dL Creatinine (0.6-1.5) mg/dL Est GFR (CKD-EPI) (>=60) BUN/Creatinine Ratio (12.00-20.00) Ratio Glucose (70-110) mg/dL POC Glucose (mg/dL) 420 H 442 H (70-110) mg/dL Hemoglobin A1c (<=6.0) % Total Bilirubin (0.3-1.2) mg/dL AST (14-35) U/L Total Protein (6.2-8.2) g/dL Albumin (3.8-4.9) g/dL Albumin/Globulin Ratio (1.60-3.17) Ratio Procalcitonin 5.20 H (0.02-0.09) ng/mL 06/14/23 06/15/23 06/15/23 Range/Units 22:11 05:32 05:47 WBC (4.50-10.00) X 10*3/uL RBC (4.40-5.60) X 10*6/uL Hgb (13.0-17.0) g/dL Hct (39.6-50.0) % RDW (11.5-14.5) % Sodium (135-145) mmol/L BUN (9.0-27.0) mg/dL Creatinine (0.6-1.5) mg/dL Est GFR (CKD-EPI) (>=60) BUN/Creatinine Ratio (12.00-20.00) Ratio Glucose (70-110) mg/dL POC Glucose (mg/dL) 478 H 294 H (70-110) mg/dL Hemoglobin A1c 10.1 H (<=6.0) % Total Bilirubin (0.3-1.2) mg/dL AST (14-35) U/L Total Protein (6.2-8.2) g/dL Albumin (3.8-4.9) g/dL Albumin/Globulin Ratio (1.60-3.17) Ratio Procalcitonin (0.02-0.09) ng/mL 06/15/23 06/15/23 06/15/23 Range/Units 05:47 05:47 12:02 WBC 16.19 H (4.50-10.00) X 10*3/uL RBC 4.35 L (4.40-5.60) X 10*6/uL Hgb 12.7 L (13.0-17.0) g/dL Hct 37.9 L (39.6-50.0) % RDW 14.7 H (11.5-14.5) % Sodium 134 L (135-145) mmol/L BUN 36.6 H (9.0-27.0) mg/dL Creatinine 1.7 H (0.6-1.5) mg/dL Est GFR (CKD-EPI) 48 L (>=60) BUN/Creatinine Ratio 21.53 H (12.00-20.00) Ratio Glucose 279 H (70-110) mg/dL POC Glucose (mg/dL) 420 H (70-110) mg/dL Hemoglobin A1c (<=6.0) % Total Bilirubin 0.2 L (0.3-1.2) mg/dL AST 10 L (14-35) U/L Total Protein 5.4 L (6.2-8.2) g/dL Albumin 2.7 L (3.8-4.9) g/dL Albumin/Globulin Ratio 1.00 L (1.60-3.17) Ratio Procalcitonin (0.02-0.09) ng/mL Microbiology - Last 24 Hours (Table) 06/13/23 21:15 Blood Culture - Preliminary Blood 06/13/23 21:20 Blood Culture - Preliminary Blood Assessment and Plan Plan: Acute hypoxemic respiratory failure secondary to suspected early pneumonia and acute exacerbation of systolic congestive heart failure patient with a known ejection fraction of 20-25%. BNP 8180, currently stable on oxygen at room air History of systolic congestive heart failure, recent admission for exacerbation Ischemic cardiomyopathy Acute kidney injury, creatinine is up to 1.7 probably related to cardiorenal factors. 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
--- NOTE | 2023-06-15 14:20 | P.PN ---
Subjective Progress Note Date: 06/15/23 Hospital course: Patient is a very pleasant 53-year-old male with a past medical history of CAD status post cardiac arrest, ischemic cardiomyopathy with chronic systolic heart failure with EF of 20%, hypertension, hyperlipidemia, COPD, and insulin- dependent diabetes mellitus. He presented to the emergency department 06/13/23 secondary to shortness of breath, cough, and wheezing. Patient reports these symptoms progressively worsening over the past 4-5 days. Patient underwent full evaluation in the emergency department. Labs were completed and reviewed. CBC showing leukocytosis with WBC count of 11.4. Coagulation profile normal findings with the exception of elevated d-dimer of 1.83. BMP showing hyponatremia with sodium 128, hypochloremia with chloride of 93, BUN 19, cre atinine 1.38, and GFR 58 along with hyperglycemia with glucose of 401 (making corrected sodium 133). Lactic acid 1.4. Liver profile unremarkable with the exception of elevated total bili of 1.5. Influenza A, influenza B, RSV, and Covid PCR were negative. EKG showing normal sinus rhythm at 73 bpm with T-wave inversion in leads 1, 2, aVL and V3 through V6 (T-wave inversion is unchanged when compared to EKG completed 05/06/23) upon personal review, comparison and interpretation. CT completed secondary to elevated d-dimer showing no evidence of pulmonary emboli revealing borderline mildly enlarged pulmonary trunk concerning for pulmonary hypertension, moderate coronary arterial calcificatio ns, small to moderate size left pleural effusion, left lower lobe patchy reticulonodular and groundglass opacity, and partially seen nodular density in the upper left quadrant of the abdomen possibly normal etiology but recommend outpatient nonemergent CT for further evaluation. Physical exam: Patient seen and fully evaluated at bedside this morning. Patient more awake this morning and reports having a difficult night unable to lie flat to sleep. Vital signs reviewed and stable. General: Nontoxic, no distress and appears stated age. Derm: Skin warm and dry, normal coloration for ethnicity. Head: Atraumatic, normocephalic and symmetric. Eyes: EOMs intact, no lid lag, and anicteric sclera Mouth: no lip lesions, mucus membranes moist Cardiovascular: regular rate and rhythm with normal S1S2, no murmur, positive posterior tibial pulses bilaterally, and cap refill < 2 seconds. Lungs: Respirations even, regular, and unlabored on room air. Lungs diminished with soft expiratory wheezes. No rhonchi, rales, or crackles noted. No accessory muscle usage. Abdominal: Obese soft, nontender to palpation, no guarding, no appreciable organomegaly Ext: ROM intact. No gross muscle atrophy, 2+ bilateral lower extremity edema, no contractures. Venous discoloration to bilateral lower extremities with excessive scaling skin. Neuro: Speech clear, face symmetrical and CN II-XII grossly intact with no noted focal neuro deficits Psych: Alert and oriented to person, place, time, and situation. Appropriate and pleasant affect. Assessment and Plan of Care: Community-acquired pneumonia COPD exacerbation Mild CHF exacerbation, Ischemic cardiomyopathy with chronic systolic heart failure with,EF 20-25% Hyponatremia, improved Acute kidney injury, worsening since starting on diuretic History of CAD status post cardiac arrest and stenting Hypertension Hyperlipidemia -Pulmonology following, discussed plan of care was Dr. Dale. -Cardiology following recommending continue Bumex 1 mg daily and decreased carvedilol to 25 mg twice daily. -Patient with worsening renal functions since being placed on a diuretic Bumex 1 mg daily. Will hold losartan at this time. -Oxygenation to be administered and titrated as needed to maintain SPO2 equal to or greater than 92% -Telemetry monitoring. -Monitor Pulse-oximetry -Continue Duonebs scheduled four times daily and as needed for SOB and/or wh eezing -Incentive Spirometry -Steroids: Solu-Medrol 60 mg IVP every 6 hours -Antibiotics: Azithromycin 500 mg IVPB daily and Rocephin 2 g IVPB daily. Pro- calcitonin 5.20. -Legionella antigen negative. -Blood cultures showing no growth today -Renal function elevating to BUN 36.6, creatinine 1.7, and GFR 48. Insulin-dependent diabetes mellitus with hyperglycemia with hemoglobin A1c 10.1% -Blood glucose levels ranging between 290 and 478 over the past 24 hours. Patient started on fixed dose NovoLog 5 units 4 times daily with meals and at bedtime and Levemir increased to Levemir 45 units daily along with continuation of glycemic protocol with NovoLog sliding scale. Nodular density left upper quadrant of abdomen -Unclear etiology possible normal etiology. However recommend outpatient nonem ergent CT for follow-up and further evaluation after completion of treatment for current infection. Data and imaging reviewed: -Morning labs reviewed. Blood cultures showing no growth to date. WBC count increasing from 11 to 16.9 (likely reactive secondary to administration of steroids), BMP showing a stable hyponatremia with sodium of 134 and slightly worsening renal function with BUN of 36.6, creatinine 1.7, GFR 48. Morning glucose 279. Hemoglobin A1c resulting in 10.1%. Magnesium 2.3. Pro-calcitonin was elevated at 5.20. -Vital signs reviewed. Blood pressure 147/80, heart rate 68, respiratory rate 17, temp 98.3F, SpO2 93% on room air. CODE STATUS: Full code DVT prophylaxis: Heparin Anticipated discharge date: Clinical course to determine Anticipated discharge place: Home Patient was seen independently by Nurse Pracitioner. This document was prepared using [employer] dictation software. Please allow for errors in timing adjuster, while rare they do occur. I reviewed the documentation as provided by the VINH above, who is the original author of this note. I agree with the documented assessment and plan, with the following changes: none Objective - Vital Signs Vital signs: Vital Signs Temp 98.3 F 06/15/23 07:19 Pulse 68 06/15/23 07:19 Resp 17 06/15/23 07:19 BP 147/80 06/15/23 07:19 Pulse Ox 93 L 06/15/23 07:19 FiO2 Intake & Output 06/14/23 06/15/23 06/15/23 18:59 06:59 18:59 Intake Total 290 Balance 290 Intake: Intake, IV Titration 290 Amount Sodium Chloride 0.9% 1, 240 000 ml @ 75 mls/hr IV . [id number] [facility] Rx#:[id number] cefTRIAXone 2 gm In 50 Sodium Chloride 0.9% 50 ml @ 100 mls/hr IVPB Q24HR [facility] Rx#:[id number] Other: # Voids 2 2 - Labs CBC & Chem 7: 06/15/23 05:47 06/15/23 05:47 Labs: Abnormal Lab Results - Last 24 Hours (Table) 06/14/23 06/14/23 06/14/23 Range/Units 10:46 10:46 11:18 Sodium 134 L (137-145) mmol/L BUN 28 H (9-20) mg/dL Creatinine 1.66 H (0.66-1.25) mg/dL Glucose 296 H (74-99) mg/dL POC Glucose (mg/dL) 322 H (70-110) mg/dL Procalcitonin 5.20 H (0.02-0.09) ng/mL 06/14/23 06/14/23 06/14/23 Range/Units 16:59 19:52 22:11 Sodium (137-145) mmol/L BUN (9-20) mg/dL Creatinine (0.66-1.25) mg/dL Glucose (74-99) mg/dL POC Glucose (mg/dL) 420 H 442 H 478 H (70-110) mg/dL Procalcitonin (0.02-0.09) ng/mL 06/15/23 Range/Units 05:32 Sodium (137-145) mmol/L BUN (9-20) mg/dL Creatinine (0.66-1.25) mg/dL Glucose (74-99) mg/dL POC Glucose (mg/dL) 294 H (70-110) mg/dL Procalcitonin (0.02-0.09) ng/mL
[2023-06-15 17:13] LABS: Glucose,Whole Blood 426 mg/dL (70-110)
[2023-06-15 19:43] LABS: Glucose,Whole Blood 337 mg/dL (70-110)
[2023-06-15] MEDS: ATORVASTATIN 80 MG TAB PO SCH (21:06)
[2023-06-15] MEDS: AZITHROMYCIN 500 MG TAB PO SCH (21:10)
[2023-06-16 05:55] LABS: Glucose,Whole Blood 281 mg/dL (70-110)
[2023-06-16] MEDS: methylPREDNISolone SOD SUCCI 125 MG/2 ML VIAL IV SCH (06:13)
[2023-06-16] MEDS: PANTOPRAZOLE 40 MG TABLET PO SCH (06:13)
[2023-06-16] MEDS: INSULIN ASPART (NovoLOG) 100 UNIT/ML VIAL SQ SCH ×8 (06:14→21:09)
[2023-06-16] MEDS: INSULIN DETEMIR (LEVEMIR) 100 UNIT/ML SYR SQ SCH (06:14)
[2023-06-16] MEDS: SYMBICORT 80-4.5 MCG INHALER INHALATION SCH ×2 (08:27→21:03)
[2023-06-16] MEDS: IPRATROPIUM-ALBUTEROL 3 ML NEB INHALATION SCH ×4 (08:27→21:03)
[2023-06-16] MEDS: MULTIVITAMINS, THERA 1 EACH TAB PO SCH (09:09)
[2023-06-16] MEDS: HEPARIN SODIUM,PORCINE 5,000 UNIT/ML 1 ML VIAL SQ SCH ×2 (09:09→16:16)
[2023-06-16] MEDS: ASPIRIN 81 MG PO SCH (09:09)
[2023-06-16] MEDS: BUMETANIDE 1 MG TAB PO SCH (09:09)
[2023-06-16] MEDS: carvediloL 12.5 MG TAB PO SCH ×2 (09:09→16:19)
--- NOTE | 2023-06-16 11:20 | P.PN ---
Subjective Progress Note Date: 06/16/23 This is a pleasant 53-year-old male patient with a known history of chronic obstructive pulmonary disease, former smoker quit in 2016, chronic cellulitis of the lower extremities, diabetes mellitus, congestive heart failure, hyperlipidemia. He presented to the emergency room yesterday by EMS from a [facility] where he was found to have a O2 saturation of 88% on room air. He was having shortness of breath, cough and congestion. X-ray revealed early volume overload or atypical pneumonia. T angiogram ruled out pulmonary embolism. There is some possible pulmonary hypertension. [id number] left pleural effusion with adjacent opacity consistent with compressive atelectasis. There is an additional left lower lobe small patchy reticular nodular and groundglass opacity concerning for infectious/inflammatory process. White count 11.4. Hemoglobin 13.6. Platelets 257. D-dimer 1.83. Sodium 134. Potassium 4.3. Bicarb 26. BUN 28. Creatinine 1.66. Glucose 296. ProBNP 8180. Viral screen negative. He is seen today in consultation on the regular medical floor. He is currently sitting up in bed. Awake and alert in no acute distress. His oxygen saturations have improved and he is on room air with an O2 saturation of 97%. He is afebrile. Hemodynamically stable. He's been initiated on ceftriaxone and azithromycin along with Solu-Medrol, Symbicort and DuoNeb inhalations. Initiated on oral diuretics. On today's evaluation of 06/15/2023, the patient is feeling better. Is on room air oxygen. He reports improvement in his lower extremity edema. He has chronic edema and venous stasis in the lower extremities along with superficial skin ulceration. His chest x-ray is consistent with no acute abnormalities. No airspace disease or consolidations. The patient was echoes at 16.1 with a hemoglobin of 12.7. Sodium level is at 134, BUN is at 36 with a creatinine of 1.7 and a serum bicarb is at 23. LFTs are normal. His pro calcitonin level is at 5.2. The viral screen came back negative for any viral infections. For the time being, the patient is on IV Rocephin 2 g every 24 hours. The patient is also on bronchodilators, Symbicort as maintenance, IV Solu-Medrol, and is also on Bumex 1 mg by mouth daily. on 06/16/2023, the patient is on room air oxygen. No specific complaints. The patient's is on diuretics. Follow-up renal function is still pending from today. The patient remains on Rocephin 2 g every 24 hours, on Symbicort and IV Solu-Medrol and Bumex 1 mg by mouth daily. Is known to have COPD, chronic lower extremity edema and chronic venous stasis cellulitis of the lower extremities. Is diabetic and he also has heart failure with an ejection fraction of 20%, and hyperlipidemia. Objective - Vital Signs Vital signs: Vital Signs Temp 98.3 F 06/16/23 07:45 Pulse 82 06/16/23 08:40 Resp 17 06/16/23 07:45 BP 140/93 06/16/23 07:45 Pulse Ox 99 06/16/23 08:28 FiO2 Intake & Output 06/15/23 06/16/23 06/16/23 18:59 06:59 18:59 Other: # Voids 2 - Exam GENERAL EXAM: Alert, obese 53-year-old male, on room air, comfortable in no apparent distress. HEAD: Normocephalic. EYES: Normal reaction of pupils, equal size. NOSE: Clear with pink turbinates. THROAT: No erythema or exudates. NECK: No masses, no JVD. CHEST: No chest wall deformity. LUNGS: Equal air entry with bilateral wheeze, few scattered rhonchi, diminished. CVS: S1 and S2 normal with no audible murmur, regular rhythm. ABDOMEN: No hepatosplenomegaly, normal bowel sounds, no guarding or rigidity. SPINE: No scoliosis or deformity SKIN: No rashes CENTRAL NERVOUS SYSTEM: No focal deficits, tone is normal in all 4 extremities. EXTREMITIES: There is changes of chronic venous stasis. No clubbing, no cyanosis. Peripheral pulses are intact. - Labs CBC & Chem 7: 06/15/23 05:47 06/15/23 05:47 Labs: Abnormal Lab Results - Last 24 Hours (Table) 06/15/23 06/15/23 06/15/23 Range/Units 12:02 17:12 19:42 POC Glucose (mg/dL) 420 H 426 H 337 H (70-110) mg/dL 06/16/23 Range/Units 05:53 POC Glucose (mg/dL) 281 H (70-110) mg/dL Microbiology - Last 24 Hours (Table) 06/13/23 21:15 Blood Culture - Preliminary Blood 06/13/23 21:20 Blood Culture - Preliminary Blood Assessment and Plan Plan: Acute hypoxemic respiratory failure secondary to suspected early pneumonia and acute exacerbation of systolic congestive heart failure patient with a known ej ection fraction of 20-25%. BNP 8180, currently stable on oxygen at room air History of systolic congestive heart failure, recent admission for exacerbation Ischemic cardiomyopathy Acute kidney injury, creatinine is up to 1.7 probably related to cardiorenal factors. 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
[2023-06-16 11:34] LABS: Glucose,Whole Blood 275 mg/dL (70-110)
[2023-06-16 11:51] LABS: HCT 40.2 % (39.0-53.0); Hypochromasia Slight; MCH 28.4 pg (25.0-35.0); MCHC 32.4 g/dL (31.0-37.0); MCV 87.8 fL (80.0-100.0); Mean Platelet Volume 8.6; Platelet Count 339 k/uL (150-450); RBC 4.58 m/uL (4.30-5.90); RDW 15.1 % (11.5-15.5); WBC 12.9 k/uL (3.8-10.6)
[2023-06-16 12:02] LABS: African American GFR (CKD) 61 (>60 ml/min/1.73 sqM); Anion Gap 10 mmol/L; Blood Urea Nitrogen 40 mg/dL (9-20); Calcium 8.7 mg/dL (8.4-10.2); Carbon Dioxide 23 mmol/L (22-30); Chloride 99 mmol/L (98-107); Glucose 286 mg/dL (74-99); Magnesium 2.4 mg/dL (1.6-2.3); Non-African American GFR(CKD) 53 (>60 ml/min/1.73 sqM); Potassium 4.2 mmol/L (3.5-5.1); Sodium 132 mmol/L (137-145)
[2023-06-16 13:03] VITALS: BMI 47.3
--- NOTE | 2023-06-16 15:21 | P.PN ---
Subjective Progress Note Date: 06/16/23 Hospital course: Patient is a very pleasant 53-year-old male with a past medical history of CAD status post cardiac arrest, ischemic cardiomyopathy with chronic systolic heart failure with EF of 20%, hypertension, hyperlipidemia, COPD, and insulin- dependent diabetes mellitus. He presented to the emergency department 06/13/23 secondary to shortness of breath, cough, and wheezing. Patient reports these symptoms progressively worsening over the past 4-5 days. Patient underwent full evaluation in the emergency department. Labs were completed and reviewed. CBC showing leukocytosis with WBC count of 11.4. Coagulation profile normal findings with the exception of elevated d-dimer of 1.83. BMP showing hyponatremia with sodium 128, hypochloremia with chloride of 93, BUN 19, creatinine 1.38, and GFR 58 along with hyperglycemia with glucose of 401 (making corrected sodium 133). Lactic acid 1.4. Liver profile unremarkable with the exception of elevated total bili of 1.5. Influenza A, influenza B, RSV, and Covid PCR were negative. EKG showing normal sinus rhythm at 73 bpm with T-wave inversion in leads 1, 2, aVL and V3 through V6 (T-wave inversion is unchanged when compared to EKG completed 05/06/23) upon personal review, comparison and interpretation. CT completed secondary to elevated d-dimer showing no evidence of pulmonary emboli revealing borderline mildly enlarged pulmonary trunk concerning for pulmonary hypertension, moderate coronary arterial calcifications, small to moderate size left pleural effusion, left lower lobe patchy reticulonodular and groundglass opacity, and partially seen nodular density in the upper left quadrant of the abdomen possibly normal etiology but recommend outpatient nonemergent CT for further evaluation. This was discussed with patient and patient in agreement to outpatient CT after treatment of his acute process. Physical exam: Patient seen and fully evaluated at bedside this morning. Patient more awake this morning and reports feeling significantly better today. Plan is for discharge likely within the next 24 hours. We are awaiting repeat renal function results. Vital. signs reviewed and stable. General: Nontoxic, no distress and appears stated age. Derm: Skin warm and dry, normal coloration for ethnicity. Head: Atraumatic, normocephalic and symmetric. Eyes: EOMs intact, no lid lag, and anicteric sclera Mouth: no lip lesions, mucus membranes moist Cardiovascular: regular rate and rhythm with normal S1S2, no murmur, positive posterior tibial pulses bilaterally, and cap refill < 2 seconds. Lungs: Respirations even, regular, and unlabored on room air. Lungs diminished. No wheezes, rhonchi, rales, or crackles noted. No accessory muscle usage. Abdominal: Obese soft, nontender to palpation, no guarding, no appreciable organomegaly Ext: ROM intact. No gross muscle atrophy, 1+ bilateral lower extremity edema, no contractures. Venous discoloration to bilateral lower extremities with excessive scaling skin. Neuro: Speech clear, face symmetrical and CN II-XII grossly intact with no noted focal neuro deficits Psych: Alert and oriented to person, place, time, and situation. Appropriate and pleasant affect. Assessment and Plan of Care: Community-acquired pneumonia COPD exacerbation Mild CHF exacerbation, Ischemic cardiomyopathy with chronic systolic heart failure with,EF 20-25% Hyponatremia, improved Acute kidney injury, worsening since starting on diuretic History of CAD status post cardiac arrest and stenting Hypertension Hyperlipidemia -Pulmonology following, discussed plan of care was Dr. Dale whom discontinued requesting a repeat pro-calcitonin and continuation of antibiotics pending these results. -Cardiology following recommending continue Bumex 1 mg daily and decreased carvedilol to 25 mg twice daily. -Patient with worsening renal functions since being placed on a diuretic Bumex 1 mg daily. Uncertain discontinued and patient placed in a monitored pain 5 mg daily in substitute for blood pressure control. -Oxygenation to be administered and titrated as needed to maintain SPO2 equal to or greater than 92% -Telemetry monitoring. -Monitor Pulse-oximetry -Continue Duonebs scheduled four times daily and as needed for SOB and/or wheezing -Incentive Spirometry -Antibiotics: Azithromycin 500 mg IVPB daily and Rocephin 2 g IVPB daily. Pro- calcitonin 5.20. -Legionella antigen negative. -Blood cultures showing no growth today -Renal function elevating to BUN 36.6, creatinine 1.7, and GFR 48. Insulin-dependent diabetes mellitus with hyperglycemia with hemoglobin A1c 10.1% -Blood glucose levels ranging between 275-337 over the past 24 hours. Patient started on fixed dose NovoLog 5 units 4 times daily with meals and at bedtime and Levemir increased to Levemir 45 units daily along with continuation of glycemic protocol with NovoLog sliding scale. Nodular density left upper quadrant of abdomen -Unclear etiology possible normal etiology. However recommend outpatient nonemergent CT for follow-up and further evaluation after completion of treatme nt for current infection. Data and imaging reviewed: -Morning labs reviewed. Blood cultures showing no growth to date. CBC showing WBC count 12.9. BMP showing sodium 132 and renal function showing BUN of 40, creatinine 1.50, GFR 53. -Vital signs reviewed. Blood pressure 138/84, heart rate 67, respiratory rate 18, temp 98.1F, SpO2 of 92% on room air. CODE STATUS: Full code DVT prophylaxis: Heparin Anticipated discharge date: Clinical course to determine Anticipated discharge place: Home Patient was seen independently by Nurse Pracitioner. This document was prepared using [employer] dictation software. Please allow for errors in hand etcher helper, while rare they do occur. Michael Saleem NP rendered care for this patient independently, reviewed the findings and plan as documented in the note above. I did not physically speak with or examine the patient on this date. Objective - Vital Signs Vital signs: Vital Signs Temp 98.3 F 06/16/23 07:45 Pulse 67 06/16/23 07:45 Resp 17 06/16/23 07:45 BP 140/93 06/16/23 07:45 Pulse Ox 94 L 06/16/23 07:45 FiO2 Intake & Output 06/15/23 06/16/23 06/16/23 18:59 06:59 18:59 Other: # Voids 2 - Labs CBC & Chem 7: 06/16/23 11:17 06/16/23 11:17 Labs: Abnormal Lab Results - Last 24 Hours (Table) 06/15/23 06/15/23 06/15/23 Range/Units 05:47 05:47 05:47 WBC 16.19 H (4.50-10.00) X 10*3/uL RBC 4.35 L (4.40-5.60) X 10*6/uL Hgb 12.7 L (13.0-17.0) g/dL Hct 37.9 L (39.6-50.0) % RDW 14.7 H (11.5-14.5) % Sodium 134 L (135-145) mmol/L BUN 36.6 H (9.0-27.0) mg/dL Creatinine 1.7 H (0.6-1.5) mg/dL Est GFR (CKD-EPI) 48 L (>=60) BUN/Creatinine Ratio 21.53 H (12.00-20.00) Ratio Glucose 279 H (70-110) mg/dL POC Glucose (mg/dL) (70-110) mg/dL Hemoglobin A1c 10.1 H (<=6.0) % Total Bilirubin 0.2 L (0.3-1.2) mg/dL AST 10 L (14-35) U/L Total Protein 5.4 L (6.2-8.2) g/dL Albumin 2.7 L (3.8-4.9) g/dL Albumin/Globulin Ratio 1.00 L (1.60-3.17) Ratio 06/15/23 06/15/23 06/15/23 Range/Units 12:02 17:12 19:42 WBC (4.50-10.00) X 10*3/uL RBC (4.40-5.60) X 10*6/uL Hgb (13.0-17.0) g/dL Hct (39.6-50.0) % RDW (11.5-14.5) % Sodium (135-145) mmol/L BUN (9.0-27.0) mg/dL Creatinine (0.6-1.5) mg/dL Est GFR (CKD-EPI) (>=60) BUN/Creatinine Ratio (12.00-20.00) Ratio Glucose (70-110) mg/dL POC Glucose (mg/dL) 420 H 426 H 337 H (70-110) mg/dL Hemoglobin A1c (<=6.0) % Total Bilirubin (0.3-1.2) mg/dL AST (14-35) U/L Total Protein (6.2-8.2) g/dL Albumin (3.8-4.9) g/dL Albumin/Globulin Ratio (1.60-3.17) Ratio 06/16/23 Range/Units 05:53 WBC (4.50-10.00) X 10*3/uL RBC (4.40-5.60) X 10*6/uL Hgb (13.0-17.0) g/dL Hct (39.6-50.0) % RDW (11.5-14.5) % Sodium (135-145) mmol/L BUN (9.0-27.0) mg/dL Creatinine (0.6-1.5) mg/dL Est GFR (CKD-EPI) (>=60) BUN/Creatinine Ratio (12.00-20.00) Ratio Glucose (70-110) mg/dL POC Glucose (mg/dL) 281 H (70-110) mg/dL Hemoglobin A1c (<=6.0) % Total Bilirubin (0.3-1.2) mg/dL AST (14-35) U/L Total Protein (6.2-8.2) g/dL Albumin (3.8-4.9) g/dL Albumin/Globulin Ratio (1.60-3.17) Ratio Microbiology - Last 24 Hours (Table) 06/13/23 21:15 Blood Culture - Preliminary Blood 06/13/23 21:20 Blood Culture - Preliminary Blood
[2023-06-16] MEDS: amLODIPine 5 MG TAB PO SCH (16:16)
[2023-06-16 16:56] LABS: Glucose,Whole Blood 255 mg/dL (70-110)
[2023-06-16 20:31] LABS: Glucose,Whole Blood 223 mg/dL (70-110)
[2023-06-16] MEDS: ATORVASTATIN 80 MG TAB PO SCH (21:08)
[2023-06-17] MEDS: HEPARIN SODIUM,PORCINE 5,000 UNIT/ML 1 ML VIAL SQ SCH ×2 (00:10→08:52)
[2023-06-17 06:23] LABS: Glucose,Whole Blood 253 mg/dL (70-110)
[2023-06-17] MEDS: INSULIN ASPART (NovoLOG) 100 UNIT/ML VIAL SQ SCH ×4 (06:52→13:39)
[2023-06-17] MEDS: PANTOPRAZOLE 40 MG TABLET PO SCH (06:53)
[2023-06-17] MEDS: INSULIN DETEMIR (LEVEMIR) 100 UNIT/ML SYR SQ SCH (06:53)
[2023-06-17] MEDS: carvediloL 12.5 MG TAB PO SCH (06:53)
[2023-06-17] MEDS: SYMBICORT 80-4.5 MCG INHALER INHALATION SCH (08:15)
[2023-06-17] MEDS: IPRATROPIUM-ALBUTEROL 3 ML NEB INHALATION SCH ×2 (08:15→12:38)
[2023-06-17 08:20] VITALS: BP 157/95; RESP 19; TEMP 98.4
[2023-06-17 08:44] VITALS: PULSE 72
[2023-06-17] MEDS: MULTIVITAMINS, THERA 1 EACH TAB PO SCH (08:52)
[2023-06-17] MEDS: amLODIPine 5 MG TAB PO SCH (08:52)
[2023-06-17] MEDS: BUMETANIDE 1 MG TAB PO SCH (08:52)
[2023-06-17] MEDS: ASPIRIN 81 MG PO SCH (08:52)
[2023-06-17 10:07] LABS: African American GFR (CKD) 57 (>60 ml/min/1.73 sqM); Anion Gap 8 mmol/L; Blood Urea Nitrogen 43 mg/dL (9-20); Calcium 8.4 mg/dL (8.4-10.2); Carbon Dioxide 23 mmol/L (22-30); Chloride 100 mmol/L (98-107); Glucose 251 mg/dL (74-99); Non-African American GFR(CKD) 49 (>60 ml/min/1.73 sqM); Potassium 3.9 mmol/L (3.5-5.1); Sodium 131 mmol/L (137-145)
--- NOTE | 2023-06-17 10:12 | P.DS ---
Providers Date of admission: 06/13/23 20:54 Expected date of discharge: 06/17/23 Attending physician: Nayeli Mabry MD Consults: 06/13/23 20:50 Consult Physician Routine Consulting Provider: Bear Thompson Consult Reason/Comments: dyspnea Do you want consulting provider notified?: Yes Primary care physician: [facility] Hospital Course: Discharge Diagnosis: Community-acquired pneumonia. Course of antibiotics with azithromycin and Rocephin. Patient is ALLERGIC to doxycycline so he is being discharged home on an additional 6 day course of Augmentin 875/125 mg twice daily to complete a 10 day course as his pro-calcitonin is still elevated an important to ensure resolution of current pneumonia especially with patient's multiple comorbidities including CHF and COPD. COPD exacerbation. Mild CHF exacerbation, Ischemic cardiomyopathy with chronic systolic heart failure with,EF 20-25% Hyponatremia, improved Acute kidney injury on chronic kidney disease. History of CAD status post cardiac arrest and stenting Hypertension Hyperlipidemia Insulin-dependent diabetes mellitus with hyperglycemia with hemoglobin A1c 10.1%, recommend dietary and lifestyle changes Nodular density left upper quadrant of abdomen. Unclear etiology possible normal etiology. Patient was instructed that he will need to follow up with outpatient nonemergent CT for follow-up and further evaluation after completion of treatment for current infection. [facility] Stasis Dermatitis Hospital Course: Patient is a very pleasant 53-year-old male with a past medical history of CAD status post cardiac arrest, ischemic cardiomyopathy with chronic systolic heart failure with EF of 20%, hypertension, hyperlipidemia, COPD, and insulin- dependent diabetes mellitus. He presented to the emergency department 06/13/23 secondary to shortness of breath, cough, and wheezing. Patient reports these symptoms progressively worsening over the past 4-5 days. Patient underwent full evaluation in the emergency department. Labs were completed and reviewed. CBC showing leukocytosis with WBC count of 11.4. Coagulation profile normal findings with the exception of elevated d-dimer of 1.83. BMP showing hyponatremia with sodium 128, hypochloremia with chloride of 93, BUN 19, creatinine 1.38, and GFR 58 along with hyperglycemia with glucose of 401 (making corrected sodium 133). Lactic acid 1.4. Liver profile unremarkable with the exception of elevated total bili of 1.5. Influenza A, influenza B, RSV, and Covid PCR were negative. EKG showing normal sinus rhythm at 73 bpm with T-wave inversion in leads 1, 2, aVL and V3 through V6 (T-wave inversion is unchanged when compared to EKG completed 05/06/23) upon personal review, comparison and interpretation. CT completed secondary to elevated d-dimer showing no evidence of pulmonary emboli revealing borderline mildly enlarged pulmonary trunk concern ing for pulmonary hypertension, moderate coronary arterial calcifications, small to moderate size left pleural effusion, left lower lobe patchy reticulonodular and groundglass opacity, and partially seen nodular density in the upper left quadrant of the abdomen possibly normal etiology but recommend outpatient nonemergent CT for further evaluation. This was discussed with patient and patient in agreement to outpatient CT after treatment of his acute process. Patient was admitted under our services with consultation to cardiology and pulmonology. was treated with antibiotics azithromycin and Rocephin for treatment of community-acquired pneumonia. He was started on Bumex 1 mg daily for treatment of his mild congestive heart failure exacerbation. Losartan dose was decreased to 25 mg daily secondary to elevation of renal function when started on Bumex and patient was started on amlodipine 5 mg daily. After patient completed 4 day course of IV antibiotics with azithromycin and Rocephin he is being discharged home on an additional 6 day course of Augmentin to complete an antibiotic treatment course of 10 days secondary to continued elevation of her calcitonin levels and patient's comorbidities with CHF and COPD. Patient to follow up outpatient with PCP in 1-2 days, cardiology in 1-2 weeks, and diet technician registered in 1 week. Physical exam: Vital. signs reviewed and stable. General: Nontoxic, no distress and appears stated age. Derm: Skin warm and dry, normal coloration for ethnicity. Head: Atraumatic, normocephalic and symmetric. Eyes: EOMs intact, no lid lag, and anicteric sclera Mouth: no lip lesions, mucus membranes moist Cardiovascular: regular rate and rhythm with normal S1S2, no murmur, positive posterior tibial pulses bilaterally, and cap refill < 2 seconds. Lungs: Respirations even, regular, and unlabored on room air. Lungs CTA bilaterally with no wheezes, rhonchi, rales, or crackles noted. No accessory muscle usage. Abdominal: Obese soft, nontender to palpation, no guarding, no appreciable organomegaly Ext: ROM intact. No gross muscle atrophy, 1+ bilateral lower extremity edema, no contractures. Venous discoloration to bilateral lower extremities with excessive scaling skin. Neuro: Speech clear, face symmetrical and CN II-XII grossly intact with no noted focal neuro deficits Psych: Alert and oriented to person, place, time, and situation. Appropriate and pleasant affect. A total of 38 minutes of time were spent preparing this complex discharge summary. Pt was discharged on 06/17/23 at 9:59 AM. Patient was seen independently by Nurse Practitioner. This document was prepared using [employer] dictation software. Please allow for errors in gymnastics coach or instructor while rare they do occur. Patient Condition at Discharge: Stable Plan - Discharge Summary Discharge Rx Participant: No New Discharge Prescriptions: New Amoxic-Pot Clav 875-125Mg [Augmentin 875-125] 1 tab PO Q12HR 6 Days #12 tab Losartan [Cozaar] 25 mg PO DAILY 30 Days #30 tab Bumetanide [BUMEX] 1 mg PO DAILY 30 Days #30 tab amLODIPine [Norvasc] 5 mg PO DAILY 30 Days #30 tab Continue Atorvastatin [Lipitor] 80 mg PO HS #30 tab Ipratropium/Albuterol Sulfate [Combivent Respimat Inhaler] 1 puff INHALATION RT-QID carvediloL 37.5 mg PO BID Ipratropium Orient 0.2 mg INHALATION RT-Q6H PRN PRN Reason: Shortness Of Breath Petrolat,White/Ronal/8-Hydroxyqu [Bag [place]] 1 gm TOPICAL DAILY Albuterol Nebulized [Ventolin Nebulized] 2.5 mg INHALATION RT-Q4H PRN PRN Reason: Shortness Of Breath Discontinued Losartan [Cozaar] 50 mg PO DAILY #90 tab Furosemide [Lasix] 40 mg PO DAILY #90 tab No Action metFORMIN HCL [Glucophage] 1,000 mg PO BID Omeprazole 20 mg PO DAILY Aspirin EC [Ecotrin Low Dose] 81 mg PO DAILY Insulin Glargine,Hum.rec.anlog [Lantus Solostar Pen] 40 unit SQ DAILY Fluticasone Propion/Salmeterol [Wixela 250-50 Inhub] 1 puff INHALATION RT-BID Multivitamins, Thera [Multivitamin (formulary)] 1 tab PO DAILY Empagliflozin [Jardiance] 25 mg PO DAILY Discharge Medication List Atorvastatin [Lipitor] 80 mg PO HS #30 tab 02/27/16 [Rx] Ipratropium/Albuterol Sulfate [Combivent Respimat Inhaler] 1 puff INHALATION RT- QID 01/12/19 [History] metFORMIN HCL [Glucophage] 1,000 mg PO BID 01/12/19 [History] Omeprazole 20 mg PO DAILY 03/14/19 [History] Aspirin EC [Ecotrin Low Dose] 81 mg PO DAILY 10/17/20 [History] Albuterol Nebulized [Ventolin Nebulized] 2.5 mg INHALATION RT-Q4H PRN 01/15/22 [History] Fluticasone Propion/Salmeterol [[place]ixela 250-50 Inhub] 1 puff INHALATION RT-BID 01/15/22 [History] Insulin Glargine,Hum.rec.anlog [Lantus Solostar Pen] 40 unit SQ DAILY 01/15/22 [History] Ipratropium Orient 0.2 mg INHALATION RT-Q6H PRN 01/15/22 [History] Multivitamins, Thera [Multivitamin (formulary)] 1 tab PO DAILY 01/15/22 [History] carvediloL 37.5 mg PO BID 01/15/22 [History] Empagliflozin [Jardiance] 25 mg PO DAILY 05/02/23 [History] Petrolat,White/Ronal/8-Hydroxyqu [Bag [place]] 1 gm TOPICAL DAILY 06/13/23 [History] Amoxic-Pot Clav 875-125Mg [Augmentin 875-125] 1 tab PO Q12HR 6 Days #12 tab 06/17/23 [Rx] Bumetanide [BUMEX] 1 mg PO DAILY 30 Days #30 tab 06/17/23 [Rx] Losartan [Cozaar] 25 mg PO DAILY 30 Days #30 tab 06/17/23 [Rx] amLODIPine [Norvasc] 5 mg PO DAILY 30 Days #30 tab 06/17/23 [Rx] Follow up Appointment(s)/Referral(s): Emery Stinson MD [Medical Doctor] - 1 Week Victoriano Dale MD [STAFF PHYSICIAN] - 1 Week [facility],Clinic [Primary Care Provider] - 1-2 days Ambulatory/Diagnostic Orders: Basic Metabolic Panel [LAB.AMB] Location: None Selected Basic Metabolic Panel [LAB.AMB] Time Frame: 3 Days, Location: None Selected Activity/Diet/Wound Care/Special Instructions: Activity: As tolerated. Take breaks as needed. Diet: Heart healthy and carb consistent diet. Avoid salts, or foods with hidden salts such as canned or boxed foods and frozen dinners. Extra salt makes your heart work harder and traps the fluid in your body for longer. Special Instructions: Weigh yourself every morning after you urinate. If you gain 3 pounds overnight or more than 5 pounds in one week, call your primary physician and steamboat pilot for guidance on your medications or they may want to see you in their office. Keep a daily log of your weights and be sure to bring with you at follow up visits with your PCP and steamboat pilot. Take all of your medications as directed, especially your water pills. NEVER skip a dose. And remember to keep all of your doctor's appointments and follow- up as needed. Elevate your legs when you are not up moving around to help with circulation and prevent swelling. Compression stockings are also a great way to improve lower extremity circulation and prevent/improve lower extremity edema. Call your primary care provider and steamboat pilot if you notice any extra swelling in your legs, ankles, feet or abdomen, if you have a new dry cough, if your shortness of breath worsens with activity or at rest, or if you feel more fatigued. Again thank you for your service, it is always an honor to provide care for a !!! Wishing you a very [place] holiday season and a Happy New Year!!!!! Again as we discussed there was a report of unclear density in your left upper quadrant of abdomen, possible normal finding however you will need an outpatient nonemergent CT to ensure resolution or follow-up and further evaluation after completion of antibiotic regimen for current infection. Thank you for allowing us to participate in your care, it was truly a pleasure having you for our patient!!! Discharge Disposition: HOME SELF-CARE
[2023-06-17 11:26] LABS: Glucose,Whole Blood 203 mg/dL (70-110)
--- NOTE | 2023-06-17 17:31 | P.PN ---
Subjective Progress Note Date: 06/17/23 This is a pleasant 53-year-old male patient with a known history of chronic obstructive pulmonary disease, former smoker quit in 2016, chronic cellulitis of the lower extremities, diabetes mellitus, congestive heart failure, hyperlipidemia. He presented to the emergency room yesterday by [facility] where he was found to have a O2 saturation of 88% on room air. He was having shortness of breath, cough and congestion. X-ray revealed early volume overload or atypical pneumonia. T angiogram ruled out pulmonary embolism. There is some possible pulmonary hypertension. [id number] left pleural effusion with adjacent opacity consistent with compressive atelectasis. There is an additional left lower lobe small patchy reticular nodular and groundglass opacity concerning for infectious/inflammatory process. White count 11.4. Hemoglobin 13.6. Platelets 257. D-dimer 1.83. Sodium 134. Potassium 4.3. Bicarb 26. BUN 28. Creatinine 1.66. Glucose 296. ProBNP 8180. Viral screen negative. He is seen today in consultation on the regular medical floor. He is currently sitting up in bed. Awake and alert in no acute distress. His oxygen saturations have improved and he is on room air with an O2 saturation of 97%. He is afebrile. Hemodynamically stable. He's been initiated on ceftriaxone and azithromycin along with Solu-Medrol, Symbicort and DuoNeb inhalations. Initiated on oral diuretics. On today's evaluation of 06/15/2023, the patient is feeling better. Is on room air oxygen. He reports improvement in his lower extremity edema. He has chronic edema and venous stasis in the lower extremities along with superficial skin ulceration. His chest x-ray is consistent with no acute abnormalities. No airspace disease or consolidations. The patient was echoes at 16.1 with a hemoglobin of 12.7. Sodium level is at 134, BUN is at 36 with a creatinine of 1.7 and a serum bicarb is at 23. LFTs are normal. His pro calcitonin level is at 5.2. The viral screen came back negative for any viral infections. For the time being, the patient is on IV Rocephin 2 g every 24 hours. The patient is also on bronchodilators, Symbicort as maintenance, IV Solu-Medrol, and is also on Bumex 1 mg by mouth daily. on 06/16/2023, the patient is on room air oxygen. No specific complaints. The patient's is on diuretics. Follow-up renal function is still pending from today. The patient remains on Rocephin 2 g every 24 hours, on Symbicort and IV Solu-Medrol and Bumex 1 mg by mouth daily. Is known to have COPD, chronic lower extremity edema and chronic venous stasis cellulitis of the lower extremities. Is diabetic and he also has heart failure with an ejection fraction of 20%, and hyperlipidemia. On 06/17/2023, the patient is stable without any specific complaints. His condition is well optimized for now. The patient is being discharged today on Bumex 1 mg by mouth daily. He is also going to complete a course of Augmentin and outpatient basis. The patient remains on room air oxygen. BUN is at 43 with a creatinine of 1.59 and the patient has a sodium level of 131. Patient is awake and alert. Denies having any specific complaints. Objective - Vital Signs Vital signs: Vital Signs Temp 98.4 F 06/17/23 08:14 Pulse 72 06/17/23 08:25 Resp 19 06/17/23 08:14 BP 157/95 06/17/23 08:14 Pulse Ox 96 06/17/23 08:14 FiO2 Intake & Output 06/16/23 06/17/23 06/17/23 18:59 06:59 18:59 Intake Total 100 Balance 100 Weight 149.685 kg Intake: Intake, IV Titration 100 Amount cefTRIAXone 2 gm In 100 Sodium Chloride 0.9% 50 ml @ 100 mls/hr IVPB Q24HR [facility] Rx#:[id number] Other: Voiding Method Toilet Toilet # Voids 1 1 - Exam GENERAL EXAM: Alert, obese 53-year-old male, on room air, comfortable in no apparent distress. HEAD: Normocephalic. EYES: Normal reaction of pupils, equal size. NOSE: Clear with pink turbinates. THROAT: No erythema or exudates. NECK: No masses, no JVD. CHEST: No chest wall deformity. LUNGS: Equal air entry with bilateral wheeze, few scattered rhonchi, diminished. CVS: S1 and S2 normal with no audible murmur, regular rhythm. ABDOMEN: No hepatosplenomegaly, normal bowel sounds, no guarding or rigidity. SPINE: No scoliosis or deformity SKIN: No rashes CENTRAL NERVOUS SYSTEM: No focal deficits, tone is normal in all 4 extremities. EXTREMITIES: There is changes of chronic venous stasis. No clubbing, no cya nosis. Peripheral pulses are intact. - Labs CBC & Chem 7: 06/16/23 11:17 06/17/23 09:11 Labs: Abnormal Lab Results - Last 24 Hours (Table) 06/16/23 06/16/23 06/17/23 Range/Units 11:17 20:30 06:20 Sodium (137-145) mmol/L BUN (9-20) mg/dL Creatinine (0.66-1.25) mg/dL Glucose (74-99) mg/dL POC Glucose (mg/dL) 223 H 253 H (70-110) mg/dL Procalcitonin 3.99 H (0.02-0.09) ng/mL 06/17/23 06/17/23 Range/Units 09:11 11:25 Sodium 131 L (137-145) mmol/L BUN 43 H (9-20) mg/dL Creatinine 1.59 H (0.66-1.25) mg/dL Glucose 251 H (74-99) mg/dL POC Glucose (mg/dL) 203 H (70-110) mg/dL Procalcitonin (0.02-0.09) ng/mL Microbiology - Last 24 Hours (Table) 06/13/23 21:15 Blood Culture - Preliminary Blood 06/13/23 21:20 Blood Culture - Preliminary Blood Assessment and Plan Plan: Acute hypoxemic respiratory failure secondary to suspected early pneumonia and acute exacerbation of systolic congestive heart failure patient with a known ejection fraction of 20-25%. BNP 8180, currently stable on oxygen at room air, clinically stable History of systolic congestive heart failure, recent admission for exacerbation Ischemic cardiomyopathy Acute kidney injury, creatinine is up to 1.7 probably related to cardiorenal factors. 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
== END 2023-06-17 14:16 | disposition home or self-care (01) | DRG 193 ==
LOC: EC 16:50 → 4SSUR 20:53 → OBSVTOIN 20:54 → 4SSUR 21:06
PROVIDERS: ADMIT Internal Medicine; ATTEND Internal Medicine
DX: J18.9 Pneumonia, unspecified organism (principal); I50.23 Acute on chronic systolic (congestive) heart failure; J96.01 Acute respiratory failure with hypoxia; N17.9 Acute kidney failure, unspecified; L03.115 Cellulitis of right lower limb; E87.1 Hypo-osmolality and hyponatremia; J44.0 Chronic obstructive pulmonary disease with (acute) lower respiratory infection; I13.0 Hypertensive heart and chronic kidney disease with heart failure and stage 1 through stage 4 chronic kidney disease, or unspecified chronic kidney disease; L03.116 Cellulitis of left lower limb; J44.1 Chronic obstructive pulmonary disease with (acute) exacerbation; Z68.42 Body mass index [BMI] 45.0-49.9, adult; J98.11 Atelectasis; I27.20 Pulmonary hypertension, unspecified; E11.22 Type 2 diabetes mellitus with diabetic chronic kidney disease; E11.51 Type 2 diabetes mellitus with diabetic peripheral angiopathy without gangrene; E87.8 Other disorders of electrolyte and fluid balance, not elsewhere classified; E66.01 Morbid (severe) obesity due to excess calories; E11.65 Type 2 diabetes mellitus with hyperglycemia; N18.32 Chronic kidney disease, stage 3b; I25.5 Ischemic cardiomyopathy; Z79.4 Long term (current) use of insulin; G47.33 Obstructive sleep apnea (adult) (pediatric); I25.10 Atherosclerotic heart disease of native coronary artery without angina pectoris; E78.5 Hyperlipidemia, unspecified; K21.9 Gastro-esophageal reflux disease without esophagitis; I83.10 Varicose veins of unspecified lower extremity with inflammation; I87.8 Other specified disorders of veins; I25.2 Old myocardial infarction; R22.2 Localized swelling, mass and lump, trunk; Z79.82 Long term (current) use of aspirin; Z79.84 Long term (current) use of oral hypoglycemic drugs; Z79.51 Long term (current) use of inhaled steroids; Z79.899 Other long term (current) drug therapy; Z86.74 Personal history of sudden cardiac arrest; Z95.5 Presence of coronary angioplasty implant and graft; Z86.718 Personal history of other venous thrombosis and embolism; Z87.891 Personal history of nicotine dependence; Z87.440 Personal history of urinary (tract) infections; Z86.14 Personal history of Methicillin resistant Staphylococcus aureus infection; Z71.3 Dietary counseling and surveillance; Z88.1 Allergy status to other antibiotic agents
CPT/HCPCS: 36415; 71046; 71275; 80048; 80053; 83036; 83605; 83735; 83880; 84145; 85025; 85027; 85379; 85610; 85730; 87040; 87449; 87636; 93005; 94640; 94760; 96361; 96365; 96375; 99285

== ENCOUNTER 2023-10-03 21:31 | Observation (INO) | payer OTHER ==
[2023-10-03 23:54] LABS: Appearance,Urine Clear (Clear); Bilirubin,Urine Negative (Negative); Blood,Urine Small (Negative); Color,Urine Colorless; Glucose,Urine (UA) 4+ (Negative); Ketones,Urine Negative (Negative); Leukocyte Esterase,Urine Negative (Negative); Nitrite,Urine Negative (Negative); Protein,Urine 2+ (Negative); RBC,Urine 1 /hpf (0-5); Specific Gravity,Urine 1.029 (1.001-1.035); Squamous Epithelial Cell,Urine 1 /hpf (0-4); Urobilinogen,Urine <2.0 mg/dL (<2.0); WBC,Urine 1 /hpf (0-5)
--- NOTE | 2023-10-03 23:58 | ED ---
Extremity Problem HPI - General Chief complaint: Extremity Problem,Nontraumatic Stated complaint: LEG INFECTION Time Seen by Provider: 10/03/23 22:33 Source: patient Mode of arrival: ambulatory Limitations: no limitations - History of Present Illness Initial comments: 53-year-old male with a past medical history significant for MRSA and chronic venous stasis presenting to the ED with a chief complaint of leg wound. Patient reports over the past few days has noted some ulcerations of his bilateral lower legs worse on his left lower leg prompting presentation to the ED for further evaluation. he reports leg swelling of his lower legs is actually improved compared to usual. No fever or chills. No chest pain shortness of breath. No other complaints at this time. - Related Data Home Medications Medication Instructions Recorded Confirmed Ipratropium/Albuterol Sulfate 1 puff INHALATION RT-QID 01/12/19 06/13/23 [Combivent Respimat Inhaler] metFORMIN HCL [Glucophage] 1,000 mg PO BID 01/12/19 06/13/23 Omeprazole 20 mg PO DAILY 03/14/19 06/13/23 Aspirin EC [Ecotrin Low Dose] 81 mg PO DAILY 10/17/20 06/13/23 Albuterol Nebulized [Ventolin 2.5 mg INHALATION RT-Q4H PRN 01/15/22 06/13/23 Nebulized] Fluticasone Propion/Salmeterol 1 puff INHALATION RT-BID 01/15/22 06/13/23 [Wixela 250-50 Inhub] Insulin Glargine,Hum.rec.anlog 40 unit SQ DAILY 01/15/22 06/13/23 [Lantus Solostar Pen] Ipratropium [place] 0.2 mg INHALATION RT-Q6H PRN 01/15/22 06/13/23 Multivitamins, Thera [Multivitamin 1 tab PO DAILY 01/15/22 06/13/23 (formulary)] carvediloL 37.5 mg PO BID 01/15/22 06/13/23 Empagliflozin [Jardiance] 25 mg PO DAILY 05/02/23 06/13/23 Petrolat,White/Ronal/8-Hydroxyqu 1 gm TOPICAL DAILY 06/13/23 06/13/23 [Bag [place]] Previous Rx's Medication Instructions Recorded Atorvastatin [Lipitor] 80 mg PO HS #30 tab 02/27/16 Amoxic-Pot Clav 875-125Mg 1 tab PO Q12HR 6 Days #12 tab 06/17/23 [Augmentin 875-125] Bumetanide [BUMEX] 1 mg PO DAILY 30 Days #30 tab 06/17/23 Losartan [Cozaar] 25 mg PO DAILY 30 Days #30 tab 06/17/23 amLODIPine [Norvasc] 5 mg PO DAILY 30 Days #30 tab 06/17/23 Allergies Allergy/AdvReac Type Severity Reaction Status Date / Time tetracycline Allergy Rash/Hives Verified 10/03/23 21:53 Review of Systems ROS Statement: Those systems with pertinent positive or pertinent negative responses have been documented in the HPI. ROS Other: All systems not noted in ROS Statement are negative. Past Medical History Past Medical History: Asthma, Coronary Artery Disease (CAD), Heart Failure, COPD, Diabetes Mellitus, Deep Vein Thrombosis (DVT), GERD/Reflux, Hyperlipidemia , Hypertension, Myocardial Infarction ([place]), Renal Disease, Sleep Apnea/CPAP/BIPAP, Vascular Disorder Additional Past Medical History / Comment(s): 02/20/16 [place] with cardiac arre st-Vfib-pt wore life vest for 7 weeks, 2010 DVT RIGHT leg, bilateral lower leg cellulitis, bilateral varicose veins, PVD, NIDDM type II, BERTRAND with CPAP. UTI Mar 2021, cellulitis with open wounds on bilateral lower legs being treated in wound center 2021 Last Myocardial Infarction Date:: 02/20/16 History of Any Multi-Drug Resistant Organisms: MRSA Date of last positivie culture/infection: 2017 MDRO Source:: bilateral legs Past Surgical History: Heart Catheterization With Stent Additional Past Surgical History / Comment(s): circumcision Additional Past Anesthesia/Blood Transfusion Reaction / Comment(s): Pt has never had anesthesia Date of Last Stent Placement:: 02/20/16 Past Psychological History: No Psychological Hx Reported Smoking Status: Former smoker Past Alcohol Use History: None Reported Past Drug Use History: None Reported - Past Family History Father Family Medical History: Coronary Artery Disease (CAD), Diabetes Mellitus, Eye Disorder Additional Family Medical History / Comment(s): Bradycardia, blind. Father is in his early 70's. Mother Family Medical History: Coronary Artery Disease (CAD), Diabetes Mellitus Additional Family Medical History / Comment(s): Benign brain tumor. Mother is in her early 70's General Exam Limitations: no limitations General appearance: obese Eye exam: Present: normal appearance Neck exam: Present: normal inspection Respiratory exam: Present: wheezes Cardiovascular Exam: Present: regular rate GI/Abdominal exam: Present: soft, normal bowel sounds. Absent: distended, tenderness, guarding, rebound, rigid Extremities exam: Present: other (Bilateral lower extremities with changes consistent with chronic venous stasis. Left lower extremity and right lower extremity do have ulcerations as well. Pitting edema bilateral lower extremities.) Neurological exam: Present: alert, oriented X3 Skin exam: Present: warm, dry Course Vital Signs 10/03/23 10/03/23 21:50 23:05 Temperature 97.7 F Pulse Rate 103 H 100 Respiratory 20 18 Rate Blood Pressure 177/108 173/107 O2 Sat by Pulse 97 99 Oximetry Medical Decision Making - Medical Decision Making Was pt. sent in by a medical professional or institution (, PA, CALL PERSON, urgent care, hospital, or assisted...) When possible be specific @ -No Did you speak to anyone other than the patient for history (EMS, parent, family, police, friend...)? What history was obtained from this source @ -No Did you review nursing and triage notes (agree or disagree)? Why? @ -I reviewed and agree with nursing and triage notes Were old charts reviewed (outside hosp., previous admission, EMS record, old EKG, old radiological studies, urgent care reports/EKG's, assisted records)? Report findings @ -No old charts were reviewed Differential Diagnosis (chest pain, altered mental status, abdominal pain women, abdominal pain men, vaginal bleeding, weakness, fever, dyspnea, syncope, headache, dizziness, GI bleed, back pain, seizure, CVA, palpatations, mental health, musculoskeletal)? @ -Differential Musculoskeletal Muscular strain, contusion, ligament sprain, fracture, arthritis, septic arthritis, bursitis, cellulitis, muscle spasm, nerve compression, DVT, arterial occlusion, herpes zoster, electrolyte abnormality, tumor.... This is not meant to be in all inclusive list EKG interpreted by me (3pts min.). @ -None X-rays interpreted by me (1pt min.). @ -None done CT interpreted by me (1pt min.). @ -None done U/S interpreted by me (1pt. min.). @ -None done What testing was considered but not performed or refused? (CT, X-rays, U/S, labs )? Why? @ -None What meds were considered but not given or refused? Why? @ -None Did you discuss the management of the patient with other professionals (professionals i.e. Dr., PA, CALL PERSON, lab, RT, psych nurse, addiction social worker, pump erector, teacher, [place] police officer, oil field caser)? Give summary @ -Case discussed with Dr. Coy who accepts admission. Was smoking cessation discussed for >3mins.? @ -No Was critical care preformed (if so, how long)? @ -No Were there social determinants of health that impacted care today? How? (Homelessness, low income, unemployed, alcoholism, drug addiction, transportation, low edu. Level, literacy, decrease access to med. care, retirement, rehab)? @ -No Was there de-escalation of care discussed even if they declined (Discuss DNR or withdrawal of care, Hospice)? DNR status @ -No What co-morbidities impacted this encounter? (DM, HTN, Smoking, COPD, CAD, Cancer, CVA, ARF, Chemo, Hep., AIDS, mental health diagnosis, sleep apnea, morbid obesity)? @ -None Was patient admitted / discharged? Hospital course, mention meds given and route, prescriptions, significant lab abnormalities, going to OR and other pertinent info. @ -Admission 53-year-old male with a past medical history significant for morbid obesity, MRSA, venous stasis, type 2 diabetes, congestive heart failure presenting to the ED with a chief complaint of bilateral leg ulcerations. On examination does have ulcerations of bilateral lower legs left worse than right. Culture was obtained. Laboratory studies reviewed. CBC largely unremarkable. Chemistry panel does show some hyponatremia 127. Glucose elevated at 536. Urine shows 2+ protein, 4+ glucose. Patient reported history of developing MRSA in the past following development of these ulcerations. Secondary to this patient started on IV antibiotics. Will be admitted with consult to infectious disease. Undiagnosed new problem with uncertain prognosis? @ -No Drug Therapy requiring intensive monitoring for toxicity (Heparin, Nitro, Insulin, Cardizem)? @ -No Were any procedures done? @ -No Diagnosis/symptom? @ -Ulceration bilateral lower extremities, history of MRSA Acute, or Chronic, or Acute on Chronic? @ -Acute Uncomplicated (without systemic symptoms) or Complicated (systemic symptoms)? @ -Uncomplicated Side effects of treatment? @ -No Exacerbation, Progression, or Severe Exacerbation? @ -No Poses a threat to life or bodily function? How? (Chest pain, [place], [place], pneumonia, PE, COPD, DKA, ARF, appy, cholecystitis, CVA, Diverticulitis, Homicidal, Suicidal, threat to staff... and all critical care pts) @ -Unlikely - Lab Data Result diagrams: 10/03/23 23:29 10/03/23 23:29 Lab Results 10/03/23 10/03/23 10/03/23 Range/Units 23:29 23: 23:29 WBC 8.3 (3.8-10.6) k/uL RBC 5.04 (4.30-5.90) m/uL Hgb 14.0 (13.0-17.5) gm/dL Hct 45.7 (39.0-53.0) % MCV 90.7 (80.0-100.0) fL MCH 27.7 (25.0-35.0) pg MCHC 30.6 L (31.0-37.0) g/dL RDW 14.4 (11.5-15.5) % Plt Count 318 (150-450) k/uL MPV 8.3 Neutrophils % 75 % Lymphocytes % 14 % Monocytes % 5 % Eosinophils % 4 % Basophils % 1 % Neutrophils # 6.2 (1.3-7.7) k/uL Lymphocytes # 1.2 (1.0-4.8) k/uL Monocytes # 0.4 (0-1.0) k/uL Eosinophils # 0.3 (0-0.7) k/uL Basophils # 0.0 (0-0.2) k/uL Hypochromasia Slight Sodium 127 L (137-145) mmol/L Potassium 4.6 (3.5-5.1) mmol/L Chloride 97 L (98-107) mmol/L Carbon Dioxide 27 (22-30) mmol/L Anion Gap 3 mmol/L BUN 15 (9-20) mg/dL Creatinine 1.42 H (0.66-1.25) mg/dL Est GFR (CKD-EPI)AfAm 65 (>60 ml/min/1.73 sqM) Est GFR (CKD-EPI)NonAf 56 (>60 ml/min/1.73 sqM) Glucose 536 H* (74-99) mg/dL POC Glucose (mg/dL) (70-110) mg/dL POC Glu Senior Materials Analyst ID Plasma Lactic Acid [place] (0.7-2.0) mmol/L Calcium 8.1 L (8.4-10.2) mg/dL Total Bilirubin 0.5 (0.2-1.3) mg/dL AST 21 (17-59) U/L ALT 11 (4-49) U/L Alkaline Phosphatase 104 (38-126) U/L Total Protein 5.8 L (6.3-8.2) g/dL Albumin 2.6 L (3.5-5.0) g/dL Urine Color Colorless Urine Appearance Clear (Clear) Urine pH 7.0 (5.0-8.0) Ur Specific [place] 1.029 (1.001-1.035) Urine Protein 2+ H (Negative) Urine Glucose (UA) 4+ H (Negative) Urine Ketones Negative (Negative) Urine Blood Small H (Negative) Urine Nitrite Negative (Negative) Urine Bilirubin Negative (Negative) Urine Urobilinogen <2.0 (<2.0) mg/dL Ur Leukocyte Esterase Negative (Negative) Urine RBC 1 (0-5) /hpf Urine WBC 1 (0-5) /hpf Ur Squamous Epith Cells 1 (0-4) /hpf 10/03/23 10/04/23 10/04/23 Range/Units 23:29 01:09 01:57 WBC (3.8-10.6) k/uL RBC (4.30-5.90) m/uL Hgb (13.0-17.5) gm/dL Hct (39.0-53.0) % MCV (80.0-100.0) fL MCH (25.0-35.0) pg MCHC (31.0-37.0) g/dL RDW (11.5-15.5) % Plt Count (150-450) k/uL MPV Neutrophils % % Lymphocytes % % Monocytes % % Eosinophils % % Basophils % % Neutrophils # (1.3-7.7) k/uL Lymphocytes # (1.0-4.8) k/uL Monocytes # (0-1.0) k/uL Eosinophils # (0-0.7) k/uL Basophils # (0-0.2) k/uL Hypochromasia Sodium (137-145) mmol/L Potassium (3.5-5.1) mmol/L Chloride (98-107) mmol/L Carbon Dioxide (22-30) mmol/L Anion Gap mmol/L BUN (9-20) mg/dL Creatinine (0.66-1.25) mg/dL Est GFR (CKD-EPI)AfAm (>60 ml/min/1.73 sqM) Est GFR (CKD-EPI)NonAf (>60 ml/min/1.73 sqM) Glucose (74-99) mg/dL POC Glucose (mg/dL) 534 H 358 H (70-110) mg/dL POC Glu Senior Materials Analyst ID Huynh, Santino Huynh, Santino Plasma Lactic Acid [place] 1.8 (0.7-2.0) mmol/L Calcium (8.4-10.2) mg/dL Total Bilirubin (0.2-1.3) mg/dL AST (17-59) U/L ALT (4-49) U/L Alkaline Phosphatase (38-126) U/L Total Protein (6.3-8.2) g/dL Albumin (3.5-5.0) g/dL Urine Color Urine Appearance (Clear) Urine pH (5.0-8.0) Ur Specific [place] (1.001-1.035) Urine Protein (Negative) Urine Glucose (UA) (Negative) Urine Ketones (Negative) Urine Blood (Negative) Urine Nitrite (Negative) Urine Bilirubin (Negative) Urine Urobilinogen (<2.0) mg/dL Ur Leukocyte Esterase (Negative) Urine RBC (0-5) /hpf Urine WBC (0-5) /hpf Ur Squamous Epith Cells (0-4) /hpf Disposition Clinical Impression: Ulcer of lower extremity, Cellulitis, Hyperglycemia Disposition: ADMITTED IP TO THIS HOSP Condition: Good Referrals: [facility],Clinic [Primary Care Provider] - 1-2 days Time of Disposition: 01:51
[2023-10-04 00:06] LABS: Basophils % (A) 1 %; Eosinophils # (A) 0.3 k/uL (0-0.7); Eosinophils % (A) 4 %; HCT 45.7 % (39.0-53.0); Hypochromasia Slight; Lymphocytes # (A) 1.2 k/uL (1.0-4.8); Lymphocytes % (A) 14 %; MCH 27.7 pg (25.0-35.0); MCHC 30.6 g/dL (31.0-37.0); MCV 90.7 fL (80.0-100.0); Mean Platelet Volume 8.3; Monocytes # (A) 0.4 k/uL (0-1.0); Monocytes % (A) 5 %; Neutrophils # (A) 6.2 k/uL (1.3-7.7); Neutrophils % (A) 75 %; Platelet Count 318 k/uL (150-450); RBC 5.04 m/uL (4.30-5.90); RDW 14.4 % (11.5-15.5); WBC 8.3 k/uL (3.8-10.6)
[2023-10-04 00:23] LABS: ALT 11 U/L (4-49); AST 21 U/L (17-59); African American GFR (CKD) 65 (>60 ml/min/1.73 sqM); Albumin 2.6 g/dL (3.5-5.0); Alkaline Phosphatase 104 U/L (38-126); Anion Gap 3 mmol/L; Blood Urea Nitrogen 15 mg/dL (9-20); Calcium 8.1 mg/dL (8.4-10.2); Carbon Dioxide 27 mmol/L (22-30); Chloride 97 mmol/L (98-107); Non-African American GFR(CKD) 56 (>60 ml/min/1.73 sqM); Potassium 4.6 mmol/L (3.5-5.1); Sodium 127 mmol/L (137-145); Total Bilirubin 0.5 mg/dL (0.2-1.3); Total Protein 5.8 g/dL (6.3-8.2)
[2023-10-04 00:49] LABS: Glucose 536 mg/dL (74-99)
[2023-10-04] MEDS ORDERED: DEXTROSE 50% SYRINGE 50 ML IVP PRN ×2 (01:08)
[2023-10-04 01:10] LABS: Glucose,Whole Blood 534 mg/dL (70-110)
[2023-10-04] MEDS: INSULIN REGULAR 100 UNIT/ML VIAL (IV) IV ONE ×2 (01:12→01:22)
[2023-10-04 02:00] LABS: Glucose,Whole Blood 358 mg/dL (70-110)
[2023-10-04] MEDS ORDERED: VANCOMYCIN IV PER PHARMACY 1 EACH MISC MISCELLANE PRN (02:08)
[2023-10-04] MEDS ORDERED: NALOXONE 0.4 MG/ML 1 ML VIAL IV PRN (02:10)
[2023-10-04] MEDS ORDERED: HYDROmorphone 0.5 MG/0.5 ML SYRINGE IVP PRN (02:10)
[2023-10-04] MEDS ORDERED: ONDANSETRON 4 MG/2 ML VIAL IVP PRN (02:10)
[2023-10-04] MEDS ORDERED: ACETAMINOPHEN TAB 325 MG TAB PO PRN (02:10)
[2023-10-04] MEDS: VANCOMYCIN 2,250 MG in SODIUM CHLORIDE 0.9% 500 ML 500 ML IVPB STA (03:25)
[2023-10-04] MEDS: hydrALAZINE HCL 20 MG/ML 1 ML VIAL IVP STA (03:48)
--- NOTE | 2023-10-04 04:40 | P.HPIM ---
History of Present Illness H&P Date: 10/04/23 Patient is a 53-year-old male with a PMH of type II DM, chronic venous stasis dermatitis, COPD, systolic CHF, hypertension, hyperlipidemia, CAD, who presents to the emergency room with complaints of lower extremity ulcers. Patient reports that he noticed quickly worsening ulcers on his bilateral lower extremities over the past 2 to 3 days. Reports a prior history of lower extremity cellulitis as a result of ulcers. Denies experiencing fever, pain, shortness of breath, cough, nausea, vomiting, abdominal pain, diarrhea. Laboratory evaluation in the emergency room was remarkable for glucose 536, creatinine 1.42, sodium 127, chloride 97, lactic acid 1.8, with 4+ glucose and UA with acetone negative. ED documentation reviewed and case discussed with ED provider. Review of systems: Pertinent positives and negatives as discussed in HPI, a complete review of systems was performed and all other systems are negative. Physical examination: Vital signs reviewed General: non toxic, no distress, appears at stated age, normal weight Derm: no significant bilateral lower extremity venous stasis dermatitis with multiple stage II ulcers with mild surrounding erythema of varying sizes noted Head: atraumatic, normocephalic, symmetric Eyes: EOMI, no lid lag, anicteric sclera, pupils equal round reactive to light ENT: Nose and ears atraumatic Neck: No cervical lymphadenopathy, trachea midline, supple Mouth: no lip lesion, mucus membranes moist Cardiovascular: S1S2 reg, no murmur, positive dorsalis pedis pulse bilateral, 2+ bilateral lower extremity pitting edema with venous stasis dermatitis Lungs: CTA bilateral, no rhonchi, no rales, no accessory muscle use Abdominal: soft, nontender to palpation, no guarding Ext: muscle strength 5 out of 5 in all 4 extremities grossly, no gross muscle atrophy, no contractures, Neuro: CN II-XI grossly intact, no gross focal neuro deficits Psych: Alert, oriented, appropriate affect Assessment: Bilateral lower extremity ulcers with cellulitis Type II DM with hyperglycemia Chronic conditions: CAD, COPD, hyperlipidemia, hypertension, systolic CHF Imaging: None performed Data Review: Laboratory evaluation in the emergency room was remarkable for glucose 536, creatinine 1.42, sodium 127, chloride 97, lactic acid 1.8, with 4+ glucose and UA with acetone negative. Plan: Wound care and infectious disease consult Follow-up wound cultures Continue patient on ceftriaxone and vancomycin for now Insulin sliding scale and blood glucose monitoring Continue remaining home medications once reconciled DVT prophylaxis: Lovenox subcu The patient is admitted with an anticipated greater than than 2 midnight stay for evaluation of lower extremity cellulitis CODE STATUS: Full Code Discussed with: Patient Anticipated discharge place: Home Past Medical History Past Medical History: Asthma, Coronary Artery Disease (CAD), Heart Failure, COPD, Diabetes Mellitus, Deep Vein Thrombosis (DVT), GERD/Reflux, H yperlipidemia, Hypertension, Myocardial Infarction ([place]), Renal Disease, Sleep Apnea/CPAP/BIPAP, Vascular Disorder Additional Past Medical History / Comment(s): 02/20/16 [place] with cardiac [id number] wore life vest for 7 weeks, 2010 DVT RIGHT leg, bilateral lower leg cellulitis, bilateral varicose veins, PVD, NIDDM type II, BERTRAND with CPAP. UTI Mar 2021, cellulitis with open wounds on bilateral lower legs being treated in wound center 2021 Last Myocardial Infarction Date:: 02/20/16 History of Any Multi-Drug Resistant Organisms: MRSA Date of last positivie culture/infection: 2017 MDRO Source:: bilateral legs Past Surgical History: Heart Catheterization With Stent Additional Past Surgical History / Comment(s): circumcision Additional Past Anesthesia/Blood Transfusion Reaction / Comment(s): Pt has never had anesthesia Date of Last Stent Placement:: 02/20/16 Past Psychological History: No Psychological Hx Reported Smoking Status: Former smoker Past Alcohol Use History: None Reported Past Drug Use History: None Reported - Past Family History Father Family Medical History: Coronary Artery Disease (CAD), Diabetes Mellitus, Eye Disorder Additional Family Medical History / Comment(s): Bradycardia, blind. Father is in his early 70's. Mother Family Medical History: Coronary Artery Disease (CAD), Diabetes Mellitus Additional Family Medical History / Comment(s): Benign brain tumor. Mother is in her early 70's Medications and Allergies Home Medications Medication Instructions Recorded Confirmed Type Atorvastatin [Lipitor] 80 mg PO HS #30 tab 02/27/16 06/13/23 Rx Ipratropium/Albuterol Sulfate 1 puff INHALATION RT-QID 01/12/19 06/13/23 History [Combivent Respimat Inhaler] metFORMIN HCL [Glucophage] 1,000 mg PO BID 01/12/19 06/13/23 History Omeprazole 20 mg PO DAILY 03/14/19 06/13/23 History Aspirin EC [Ecotrin Low Dose] 81 mg PO DAILY 10/17/20 06/13/23 History Albuterol Nebulized [Ventolin 2.5 mg INHALATION RT-Q4H PRN 01/15/22 06/13/23 History Nebulized] Fluticasone Propion/Salmeterol 1 puff INHALATION RT-BID 01/15/22 06/13/23 History [Wixela 250-50 Inhub] Insulin Glargine,Hum.rec.anlog 40 unit SQ DAILY 01/15/22 06/13/23 History [Lantus Solostar Pen] Ipratropium [place] 0.2 mg INHALATION RT-Q6H PRN 01/15/22 06/13/23 History Multivitamins, Thera [Multivitamin 1 tab PO DAILY 01/15/22 06/13/23 History (formulary)] carvediloL 37.5 mg PO BID 01/15/22 06/13/23 History Empagliflozin [Jardiance] 25 mg PO DAILY 05/02/23 06/13/23 History Petrolat,White/Ronal/8-Hydroxyqu 1 gm TOPICAL DAILY 06/13/23 06/13/23 History [Bag [place]] Amoxic-Pot Clav 875-125Mg 1 tab PO Q12HR 6 Days #12 tab 06/17/23 Rx [Augmentin 875-125] Bumetanide [BUMEX] 1 mg PO DAILY 30 Days #30 tab 06/17/23 Rx Losartan [Cozaar] 25 mg PO DAILY 30 Days #30 tab 06/17/23 Rx amLODIPine [Norvasc] 5 mg PO DAILY 30 Days #30 tab 06/17/23 Rx Allergies Allergy/AdvReac Type Severity Reaction Status Date / Time tetracycline Allergy Rash/Hives Verified 10/03/23 21:53 Physical Exam Vitals: Vital Signs Temp Pulse Resp BP Pulse Ox 10/04/23 04:36 90 20 190/105 97 10/04/23 03:10 83 16 184/112 98 10/03/23 23:05 100 18 173/107 99 10/03/23 21:50 97.7 F 103 H 20 177/108 97 Intake and Output 10/03/23 10/03/23 10/04/23 14:59 22:59 06:59 Other: Weight 154.221 kg Results CBC & Chem 7: 10/03/23 23:29 10/03/23 23:29 Labs: Abnormal Lab Results - Last 24 Hours (Table) 10/03/23 10/03/23 10/03/23 Range/Units 23:29 23:29 23:29 MCHC 30.6 L (31.0-37.0) g/dL Sodium 127 L (137-145) mmol/L Chloride 97 L (98-107) mmol/L Creatinine 1.42 H (0.66-1.25) mg/dL Glucose 536 H* (74-99) mg/dL POC Glucose (mg/dL) (70-110) mg/dL Calcium 8.1 L (8.4-10.2) mg/dL Total Protein 5.8 L (6.3-8.2) g/dL Albumin 2.6 L (3.5-5.0) g/dL Urine Protein 2+ H (Negative) Urine Glucose (UA) 4+ H (Negative) Urine Blood Small H (Negative) 10/04/23 10/04/23 Range/Units 01:09 01:57 MCHC (31.0-37.0) g/dL Sodium (137-145) mmol/L Chloride (98-107) mmol/L Creatinine (0.66-1.25) mg/dL Glucose (74-99) mg/dL POC Glucose (mg/dL) 534 H 358 H (70-110) mg/dL Calcium (8.4-10.2) mg/dL Total Protein (6.3-8.2) g/dL Albumin (3.5-5.0) g/dL Urine Protein (Negative) Urine Glucose (UA) (Negative) Urine Blood (Negative)
[2023-10-04 07:54] LABS: Glucose,Whole Blood 369 mg/dL (70-110)
[2023-10-04] MEDS: DAPAGLIFLOZIN PROPANEDIOL 10 MG TABLET PO SCH (10:13)
[2023-10-04] MEDS: INSULIN DETEMIR (LEVEMIR) 100 UNIT/ML SYR SQ SCH (10:14)
[2023-10-04] MEDS: amLODIPine 5 MG TAB PO SCH (10:14)
[2023-10-04] MEDS: INSULIN ASPART (NovoLOG) 100 UNIT/ML VIAL SQ SCH (10:14)
[2023-10-04] MEDS: ASPIRIN 81 MG PO SCH (10:14)
[2023-10-04] MEDS: LOSARTAN 25 MG TAB PO SCH (10:14)
[2023-10-04] MEDS: carvediloL 12.5 MG TAB PO SCH (10:14)
[2023-10-04] MEDS: ENOXAPARIN 40 MG/0.4 ML SYRINGE SQ SCH (10:16)
[2023-10-04 12:17] LABS: African American GFR (CKD) 77 (>60 ml/min/1.73 sqM); Anion Gap 4 mmol/L; Blood Urea Nitrogen 15 mg/dL (9-20); C Reactive Protein 4.9 mg/dL (<1.0); Calcium 8.3 mg/dL (8.4-10.2); Carbon Dioxide 25 mmol/L (22-30); Chloride 100 mmol/L (98-107); Glucose 463 mg/dL (74-99); Non-African American GFR(CKD) 66 (>60 ml/min/1.73 sqM); Potassium 3.8 mmol/L (3.5-5.1); Sodium 129 mmol/L (137-145)
[2023-10-04 12:20] LABS: Glucose,Whole Blood 440 mg/dL (70-110)
[2023-10-04] MEDS ORDERED: ALBUTEROL NEBULIZED 2.5 MG/3 ML INHALATION PRN (13:20)
[2023-10-04] MEDS ORDERED: IPRATROPIUM 0.5 MG/2.5 ML NEBU INHALATION PRN (13:20)
--- NOTE | 2023-10-04 15:00 | P.PN ---
Subjective Progress Note Date: 10/04/23 Hospital course: Patient is a very pleasant 53-year-old male with a past medical history of CAD status post cardiac arrest, ischemic cardiomyopathy with chronic systolic heart failure with EF of 20-25%, hypertension, hyperlipidemia, COPD, insulin- dependent diabetes mellitus, and chronic venous stasis dermatitis. He presented to the emergency department secondary to concerns of ulcerations developing in his bilateral lower extremities. Upon arrival to the emergency department, roberto carlos reynaga underwent evaluation. Vital signs showing blood pressure 177/108, heart rate 103, respiratory rate 20, temp 97.7 F, and SpO2 of 97% on room air. Labs were completed and reviewed. CBC showing no significant abnormalities. BMP revealing hyponatremia with sodium of 127, hypochloremia with chloride of 97, creatinine of 1.42 at baseline, and glucose significantly elevated at 536. Lactic acid was normal findings at 1.8. Liver profile showing no significant abnormalities with the exception of hypoalbuminemia with albumin of 2.6. Urinalysis positive for protein, glucose, and blood negative for infection. Acetone was negative. Blood cultures were obtained and patient was started on I V antibiotics with vancomycin and Rocephin. He was admitted under our services with consultation to infectious disease and wound care. Physical exam: Vital. signs reviewed and stable. General: Nontoxic, no distress and appears stated age. Derm: Skin warm and dry, normal coloration for ethnicity. Head: Atraumatic, normocephalic and symmetric. Eyes: EOMs intact, no lid lag, and anicteric sclera Mouth: no lip lesions, mucus membranes moist Cardiovascular: regular rate and rhythm with normal S1S2, no murmur, positive posterior tibial pulses bilaterally, and cap refill < 2 seconds. Lungs: Respirations even, regular, and unlabored on room air. Lungs CTA bilaterally with no wheezes, rhonchi, rales, or crackles noted. No accessory muscle usage. Abdominal: Obese soft, nontender to palpation, no guarding, no appreciable organomegaly Ext: ROM intact. No gross muscle atrophy, 1+ bilateral lower extremity edema, no contractures. Venous stasis dermatitis to bilateral lower extremities with excessive scaling skin and multiple stage II ulcers with areas of surrounding erythema worse on left. Neuro: Speech clear, face symmetrical and CN II-XII grossly intact with no noted focal neuro deficits Psych: Alert and oriented to person, place, time, and situation. Appropriate and pleasant affect. Assessment and Plan of Care: Bilateral lower extremity ulcers with concerns of cellulitis Type 2 insulin-dependent diabetes mellitus with hyperglycemia, poorly controlled Pseudohyponatremia secondary to poorly controlled blood glucose levels -Patient started on IV antibiotics with Rocephin 2 g daily and vancomycin 2250 mg every 16 hours. Will monitor renal function and vancomycin trough closely to monitor for any signs of vancomycin associated renal toxicity. -Consult placed to infectious disease for evaluation, appreciate recommendations. -Patient to resume Farxiga 10 mg daily, Levemir 40 units daily and placed on high dosed NovoLog sliding scale to obtain tight glycemic control throughout hospitalization. -Follow-up on wound cultures and blood culture results. Hypertension, poorly controlled CAD History of cardiac arrest Ischemic cardiomyopathy with chronic systolic heart failure with EF of 20-25% Hyperlipidemia -Patient to continue daily medication regimen with amlodipine 5 mg daily, aspirin 81 mg, atorvastatin 80 mg nightly, carvedilol 37.5 mg twice daily, and losartan 25 mg daily. COPD -Continue nebulizer treatments every 4 hours as needed for shortness of breath and for for wheezing along with Symbicort daily. Data and imaging reviewed Morning labs reviewed. BMP revealing pseudohyponatremia with sodium of 129 and blood glucose of 463 resulting in a corrected sodium level of 135. Vital signs reviewed blood pressure elevated at 163/115, heart rate 107, respiratory rate 18, temp 99.2 F, and SpO2 of 97% on room air CODE STATUS: Full code DVT prophylaxis: Lovenox Anticipated discharge date: Clinical course to determine Anticipated discharge place: Home Patient was seen independently by Nurse Pracitioner. This document was prepared using [employer] dictation software. Please allow for errors in in flight technician, while rare they do occur. Michael Saleem NP rendered care for this patient independently, reviewed the findings and plan as documented in the note above. I did not physically speak with or examine the patient on this date. Objective - Vital Signs Vital signs: Vital Signs Temp 99.2 F 10/04/23 08:00 Pulse 107 H 10/04/23 08:00 Resp 18 10/04/23 08:00 BP 163/115 10/04/23 08:00 Pulse Ox 97 10/04/23 08:00 FiO2 Intake & Output 10/03/23 10/04/23 10/04/23 18:59 06:59 18:59 Weight 154.221 kg - Labs CBC & Chem 7: 10/03/23 23:29 10/04/23 11:38 Labs: Abnormal Lab Results - Last 24 Hours (Table) 10/03/23 10/03/23 10/03/23 Range/Units 23:29 23:29 23:29 MCHC 30.6 L (31.0-37.0) g/dL Sodium 127 L (137-145) mmol/L Chloride 97 L (98-107) mmol/L Creatinine 1.42 H (0.66-1.25) mg/dL Glucose 536 H* (74-99) mg/dL POC Glucose (mg/dL) (70-110) mg/dL Calcium 8.1 L (8.4-10.2) mg/dL Total Protein 5.8 L (6.3-8.2) g/dL Albumin 2.6 L (3.5-5.0) g/dL Urine Protein 2+ H (Negative) Urine Glucose (UA) 4+ H (Negative) Urine Blood Small H (Negative) 10/04/23 10/04/23 10/04/23 Range/Units 01:09 01:57 07:53 MCHC (31.0-37.0) g/dL Sodium (137-145) mmol/L Chloride (98-107) mmol/L Creatinine (0.66-1.25) mg/dL Glucose (74-99) mg/dL POC Glucose (mg/dL) 534 H 358 H 369 H (70-110) mg/dL Calcium (8.4-10.2) mg/dL Total Protein (6.3-8.2) g/dL Albumin (3.5-5.0) g/dL Urine Protein (Negative) Urine Glucose (UA) (Negative) Urine Blood (Negative)
[2023-10-04] MEDS: IPRATROPIUM-ALBUTEROL 3 ML NEB INHALATION SCH (16:26)
--- NOTE | 2023-10-04 17:17 | P.CONS ---
History of Present Illness - Reason for Consult Consult date: 10/04/23 - History of Present Illness Patient is a 53-year-old male with a past medical history significant for Asthma, Coronary Artery Disease (CAD), Heart Failure, COPD, Diabetes Mellitus, Deep Vein Thrombosis (DVT), GERD/Reflux, Hyperlipidemia, Hypertension, Myocardial Infarction ([place]), Renal Disease, Sleep Apnea/CPAP/BIPAP, Vascular Disorder, the patient also history of bilateral lower extremity venous stasis ulcers and dermatitis patient presenting to the hospital for evaluation of increasing swelling and redness to bilateral lower extremity that apparently started on Thursday a day before presentation to the hospital patient mentioned he noted to have significant swelling to bilateral extremity and also started having a weeping especially to the left leg has been complaining of pain to bilateral extremity mostly mild in intensity without any radiation mostly concerned about swelling redness and drainage especially to the left leg patient denies high-grade fever he did have a low-grade fever of 99.2 this morning patient was mildly tachycardic on presentation subsequently proved was not hypotensive or hypoxic patient did have a white count of 8.3, creatinine was 1.42 liver isms are normal urine has been negative culture has been obtained patient was started on vancomycin and ceftriaxone infectious disease was consulted for further management of antibiotic therapy Past Medical History Past Medical History: Asthma, Coronary Artery Disease (CAD), Heart Failure, COPD, Diabetes Mellitus, Deep Vein Thrombosis (DVT), GERD/Reflux, Hyperlipidemia, Hypertension, Myocardial Infarction ([place]), Renal Disease, Sleep Apnea/CPAP/BIPAP, Vascular Disorder Additional Past Medical History / Comment(s): 02/20/16 [place] with cardiac [id number] wore life vest for 7 weeks, 2010 DVT RIGHT leg, bilateral lower leg cellulitis, bilateral varicose veins, PVD, NIDDM type II, BERTRAND with CPAP. UTI Mar 2021, cellulitis with open wounds on bilateral lower legs being treated in wound center 2021 Last Myocardial Infarction Date:: 02/20/16 History of Any Multi-Drug Resistant Organisms: MRSA Year Discovered:: 2018 MDRO Source:: bilateral legs Past Surgical History: Heart Catheterization With Stent Additional Past Surgical History / Comment(s): circumcision Additional Past Anesthesia/Blood Transfusion Reaction / Comm: Pt has never had anesthesia Date of Last Stent Placement:: 02/20/16 Past Psychological History: No Psychological Hx Reported Additional Psychological History / Comment(s): He is independent. Smoking Status: Former smoker Past Alcohol Use History: None Reported Additional Past Alcohol Use History / Comment(s): Pt states he started smoking at age 18 yrs and quit 02/20/16. Past Drug Use History: None Reported - Past Family History Father Family Medical History: Coronary Artery Disease (CAD), Diabetes Mellitus, Eye Disorder Additional Family Medical History / Comment(s): Bradycardia, blind. Father is in his early 70's. Mother Family Medical History: Coronary Artery Disease (CAD), Diabetes Mellitus Additional Family Medical History / Comment(s): Benign brain tumor. Mother is in her early 70's Medications and Allergies Home Medications Medication Instructions Recorded Confirmed Type Atorvastatin [Lipitor] 80 mg PO HS #30 tab 02/27/16 10/04/23 Rx Ipratropium/Albuterol Sulfate 1 puff INHALATION RT-QID 01/12/19 10/04/23 History [Combivent Respimat Inhaler] metFORMIN HCL [Glucophage] 1,000 mg PO BID 01/12/19 10/04/23 History Omeprazole 20 mg PO DAILY 03/14/19 10/04/23 History Aspirin EC [Ecotrin Low Dose] 81 mg PO DAILY 10/17/20 10/04/23 History Albuterol Nebulized [Ventolin 2.5 mg INHALATION RT-Q4H PRN 01/15/22 10/04/23 History Nebulized] Fluticasone Propion/Salmeterol 1 puff INHALATION RT-BID 01/15/22 10/04/23 History [Wixela 250-50 Inhub] Insulin Glargine,Hum.rec.anlog 40 unit SQ DAILY 01/15/22 10/04/23 History [Lantus Solostar Pen] Ipratropium [place] 0.2 mg INHALATION RT-Q6H PRN 01/15/22 10/04/23 History Multivitamins, Thera [Multivitamin 1 tab PO DAILY 01/15/22 10/04/23 History (formulary)] carvediloL 37.5 mg PO BID 01/15/22 10/04/23 History Empagliflozin [Jardiance] 25 mg PO DAILY 05/02/23 10/04/23 History Petrolat,White/Ronal/8-Hydroxyqu 1 gm TOPICAL DAILY 06/13/23 10/04/23 History [Bag [place]] Losartan [Cozaar] 25 mg PO DAILY 30 Days #30 tab 06/17/23 10/04/23 Rx amLODIPine [Norvasc] 5 mg PO DAILY 30 Days #30 tab 06/17/23 10/04/23 Rx Allergies Allergy/AdvReac Type Severity Reaction Status Date / Time tetracycline Allergy Rash/Hives Verified 10/04/23 12:59 Physical Exam Vitals: Vital Signs Temp Pulse Pulse Resp BP BP Pulse Ox 10/04/23 08:00 99.2 F 107 H 18 163/115 97 10/04/23 06:08 87 13 171/97 96 10/04/23 05:06 98 16 165/99 99 10/04/23 04:36 90 20 190/105 97 10/04/23 03:10 83 16 184/112 98 10/03/23 23:05 100 18 173/107 99 10/03/23 21:50 97.7 F 103 H 20 177/108 97 Intake and Output 10/03/23 10/04/23 10/04/23 22:59 06:59 14:59 Intake Total 354 Balance 354 Intake: Oral 354 Other: Weight 154.221 kg 154.221 kg Results CBC & Chem 7: 10/03/23 23:29 10/04/23 11:38 Labs: Abnormal Lab Results - Last 24 Hours (Table) 10/03/23 10/03/23 10/03/23 Range/Units 23:29 23:29 23:29 MCHC 30.6 L (31.0-37.0) g/dL Sodium 127 L (137-145) mmol/L Chloride 97 L (98-107) mmol/L Creatinine 1.42 H (0.66-1.25) mg/dL Glucose 536 H* (74-99) mg/dL POC Glucose (mg/dL) (70-110) mg/dL Calcium 8.1 L (8.4-10.2) mg/dL C-Reactive Protein (<1.0) mg/dL Total Protein 5.8 L (6.3-8.2) g/dL Albumin 2.6 L (3.5-5.0) g/dL Urine Protein 2+ H (Negative) Urine Glucose (UA) 4+ H (Negative) Urine Blood Small H (Negative) 10/04/23 10/04/23 10/04/23 Range/Units 01:09 01:57 07:53 MCHC (31.0-37.0) g/dL Sodium (137-145) mmol/L Chloride (98-107) mmol/L Creatinine (0.66-1.25) mg/dL Glucose (74-99) mg/dL POC Glucose (mg/dL) 534 H 358 H 369 H (70-110) mg/dL Calcium (8.4-10.2) mg/dL C-Reactive Protein (<1.0) mg/dL Total Protein (6.3-8.2) g/dL Albumin (3.5-5.0) g/dL Urine Protein (Negative) Urine Glucose (UA) (Negative) Urine Blood (Negative) 10/04/23 10/04/23 Range/Units 11:38 12:19 MCHC (31.0-37.0) g/dL Sodium 129 L (137-145) mmol/L Chloride (98-107) mmol/L Creatinine (0.66-1.25) mg/dL Glucose 463 H (74-99) mg/dL POC Glucose (mg/dL) 440 H (70-110) mg/dL Calcium 8.3 L (8.4-10.2) mg/dL C-Reactive Protein 4.9 H (<1.0) mg/dL Total Protein (6.3-8.2) g/dL Albumin (3.5-5.0) g/dL Urine Protein (Negative) Urine Glucose (UA) (Negative) Urine Blood (Negative) Assessment and Plan Plan: 1patient with bilateral lower extremity venous stasis ulcer and cellulitis especially to the left lower extremity likely from gram-positive skin birdie underlying gram-negative infection less likely but not entirely excluded 2-local culture has been drained the guide further antibiotic therapy currently pending 3-local wound care with a dry Aquacel dressing and Bobby wrap to help decrease some of the swelling 4-patient to continue the vancomycin pharmacy dose while watching his kidney function closely however switch Rocephin to cefepime while waiting for the culture to finalize We will follow on clinical condition and cultures to further adjust medication if needed Thank you for this consultation we will follow the patient along with you Dictation was produced using [employer] dictation software. please excuse any grammatical, word or spelling errors. Time with Patient: Greater than 30
[2023-10-04 17:24] LABS: Glucose,Whole Blood 191 mg/dL (70-110)
[2023-10-04] MEDS: VANCOMYCIN 2,250 MG in SODIUM CHLORIDE 0.9% 500 ML 500 ML IVPB SCH (19:49)
[2023-10-04] MEDS: SYMBICORT 80-4.5 MCG INHALER INHALATION SCH (19:53)
[2023-10-04 20:19] LABS: Glucose,Whole Blood 319 mg/dL (70-110)
[2023-10-04] MEDS: ATORVASTATIN 80 MG TAB PO SCH (20:26)
[2023-10-04] MEDS: CEFEPIME 2 GM in SODIUM CHLORIDE 0.9% 100 ML IVPB SCH (23:46)
[2023-10-05 05:54] LABS: Glucose,Whole Blood 278 mg/dL (70-110)
[2023-10-05 08:34] LABS: Basophils # (A) 0.04 X 10*3/uL (0.00-0.10); Basophils % (A) 0.5 %; Eosinophils # (A) 0.56 X 10*3/uL (0.04-0.35); Eosinophils % (A) 6.9 %; HCT 42.2 % (39.6-50.0); Lymphocytes # (A) 1.37 X 10*3/uL (0.90-5.00); Lymphocytes % (A) 16.9 %; MCH 27.4 pg (27.0-32.0); MCHC 30.8 g/dL (32.0-37.0); MCV 88.8 FL (80.0-97.0); Mean Platelet Volume 10.7 FL (9.5-12.2); Monocytes # (A) 0.54 X 10*3/uL (0.20-1.00); Monocytes % (A) 6.7 %; NRBC Per 100 WBC 0 X 10*3/uL (0.00-0.01); Neutrophils # (A) 5.56 X 10*3/uL (1.80-7.70); Neutrophils % (A) 68.6 %; Platelet Count 304 X 10*3/uL (140-440); RBC 4.75 X 10*6/uL (4.40-5.60); RDW 14.2 % (11.5-14.5)
[2023-10-05 08:42] LABS: BUN/Creat Ratio 11.57 Ratio (12.00-20.00); Blood Urea Nitrogen 16.2 mg/dL (9.0-27.0); Calcium 8.4 mg/dL (8.7-10.3); Carbon Dioxide 28.2 mmol/L (21.6-31.8); Chloride 101 mmol/L (96-109); Glucose 307 mg/dL (70-110); Magnesium 2.4 mg/dL (1.5-2.4); Potassium 4.4 mmol/L (3.5-5.5); Sodium 135 mmol/L (135-145)
[2023-10-05] MEDS: MULTIVITAMINS, THERA 1 EACH TAB PO SCH (08:43)
[2023-10-05] MEDS: PANTOPRAZOLE 40 MG TABLET PO SCH (08:43)
--- NOTE | 2023-10-05 12:19 | P.CONS ---
History of Present Illness - Reason for Consult Consult date: 10/05/23 wound care - History of Present Illness This is a 53-year-old patient known to the wound care center with past medical history significant for asthma, coronary artery disease, heart failure, COPD, diabetes, DVT, GERD, hyperlipidemia, hypertension, myocardial infarction, renal disease, sleep apnea, venous stasis. Patient utilizes compression garments however he states that they do not fit him anymore and has not been utilizing them. Patient has ulcerations to bilateral lower extremities more significant on the left than the right. Patient has bilateral 2+ pitting edema noted. Erythema to the left lower extremity. Patient is utilizing absorptive silver to the site. Review Of Systems: Constitutional: No fever, no chills, no night sweats. No weight change. No weakness, fatigue or lethargy. No daytime sleepiness. Integumentary:reports wounds, no lesions. No rash or pruritus. No unusual bruising. No change in hair or nails. Physical exam: General Appearance: Alert, cooperative, no distress, appears stated age. Skin: See HPI all other Skin color, texture, tugor normal, no rashes or lesions. Neurologic: Alert oriented x3 Assessment: 1. Chronic venous hypertension with inflammation and ulceration bilateral lower extremities 2. Nonpressure ulceration with fat layer exposure left lower extremity 2 3. Nonpressure ulceration with fat layer exposure right lower extremity 4. Diabetes with skin ulceration Plan: 1. Continue with absorptive silver, saline moistened gauze, dry gauze, rolled gauze and secure with paper tape. Continue with Bobby wrap for compression. Patient would benefit from advanced wound care and wound care setting. We have happy to see him upon discharge. Thank you for the consultation any questions please contact the wound care center DNP note has been reviewed and discussed with Dr. Livingston and the impression and plan of care has been directed as dictated. Past Medical History Past Medical History: Asthma, Coronary Artery Disease (CAD), Heart Failure, COPD, Diabetes Mellitus, Deep Vein Thrombosis (DVT), GERD/Reflux, Hyper lipidemia, Hypertension, Myocardial Infarction (IL), Renal Disease, Sleep Apnea/CPAP/BIPAP, Vascular Disorder Additional Past Medical History / Comment(s): 02/20/16 IL with cardiac [id number] wore life vest for 7 weeks, 2010 DVT RIGHT leg, bilateral lower leg cellulitis, bilateral varicose veins, PVD, NIDDM type II, BERTRAND with CPAP. UTI Mar 2021, cellulitis with open wounds on bilateral lower legs being treated in wound center 2021 Last Myocardial Infarction Date:: 02/20/16 History of Any Multi-Drug Resistant Organisms: MRSA Year Discovered:: 2017 MDRO Source:: bilateral legs Past Surgical History: Heart Catheterization With Stent Additional Past Surgical History / Comment(s): circumcision Additional Past Anesthesia/Blood Transfusion Reaction / Comm: Pt has never had anesthesia Date of Last Stent Placement:: 02/20/16 Past Psychological History: No Psychological Hx Reported Additional Psychological History / Comment(s): He is independent. Smoking Status: Former smoker Past Alcohol Use History: None Reported Additional Past Alcohol Use History / Comment(s): Pt states he started smoking at age 18 yrs and quit 02/20/16. Past Drug Use History: None Reported - Past Family History Father Family Medical History: Coronary Artery Disease (CAD), Diabetes Mellitus, Eye Disorder Additional Family Medical History / Comment(s): Bradycardia, blind. Father is in his early 70's. Mother Family Medical History: Coronary Artery Disease (CAD), Diabetes Mellitus Additional Family Medical History / Comment(s): Benign brain tumor. Mother is in her early 70's Medications and Allergies Home Medications Medication Instructions Recorded Confirmed Type Atorvastatin [Lipitor] 80 mg PO HS #30 tab 02/27/16 10/04/23 Rx Ipratropium/Albuterol Sulfate 1 puff INHALATION RT-QID 01/12/19 10/04/23 History [Combivent Respimat Inhaler] metFORMIN HCL [Glucophage] 1,000 mg PO BID 01/12/19 10/04/23 History Omeprazole 20 mg PO DAILY 03/14/19 10/04/23 History Aspirin EC [Ecotrin Low Dose] 81 mg PO DAILY 10/17/20 10/04/23 History Albuterol Nebulized [Ventolin 2.5 mg INHALATION RT-Q4H PRN 01/15/22 10/04/23 History Nebulized] Fluticasone Propion/Salmeterol 1 puff INHALATION RT-BID 01/15/22 10/04/23 History [Wixela 250-50 Inhub] Insulin Glargine,Hum.rec.anlog 40 unit SQ DAILY 01/15/22 10/04/23 History [Lantus Solostar Pen] Ipratropium [place] 0.2 mg INHALATION RT-Q6H PRN 01/15/22 10/04/23 History Multivitamins, Thera [Multivitamin 1 tab PO DAILY 01/15/22 10/04/23 History (formulary)] carvediloL 37.5 mg PO BID 01/15/22 10/04/23 History Empagliflozin [Jardiance] 25 mg PO DAILY 05/02/23 10/04/23 History Petrolat,White/Ronal/8-Hydroxyqu 1 gm TOPICAL DAILY 06/13/23 10/04/23 History [Bag [place]] Losartan [Cozaar] 25 mg PO DAILY 30 Days #30 tab 06/17/23 10/04/23 Rx amLODIPine [Norvasc] 5 mg PO DAILY 30 Days #30 tab 06/17/23 10/04/23 Rx Allergies Allergy/AdvReac Type Severity Reaction Status Date / Time tetracycline Allergy Rash/Hives Verified 10/04/23 12:59 Physical Exam Vitals: Vital Signs Temp Pulse Pulse Resp BP BP Pulse Ox 10/05/23 09:08 68 10/05/23 08:58 64 10/05/23 07:45 98.3 F 61 16 149/97 100 10/05/23 02:00 97.8 F 61 17 139/82 95 10/04/23 20:26 72 10/04/23 20:07 74 10/04/23 19:58 98.7 F 72 17 145/81 98 10/04/23 19:54 71 10/04/23 16:40 72 10/04/23 16:26 70 10/04/23 14:50 98.3 F 74 18 123/73 95 Intake and Output 10/04/23 10/05/23 10/05/23 22:59 06:59 14:59 Intake Total 240 120 354 Balance 240 120 354 Intake: Oral 240 120 354 Other: Voiding Method Toilet # Voids 2 Results CBC & Chem 7: 10/05/23 05:56 10/05/23 05:56 Labs: Abnormal Lab Results - Last 24 Hours (Table) 10/04/23 10/04/23 10/04/23 Range/Units 11:38 11:38 12:19 MCHC (32.0-37.0) g/dL Eosinophils # (0.04-0.35) X 10*3/uL ESR 102 H (0-20) mm/Hr Sodium 129 L (137-145) mmol/L BUN/Creatinine Ratio (12.00-20.00) Ratio Glucose 463 H (74-99) mg/dL POC Glucose (mg/dL) 440 H (70-110) mg/dL Hemoglobin A1c (<=6.0) % Calcium 8.3 L (8.4-10.2) mg/dL C-Reactive Protein 4.9 H (<1.0) mg/dL 10/04/23 10/04/23 10/05/23 Range/Units 17:22 20:16 05:47 MCHC (32.0-37.0) g/dL Eosinophils # (0.04-0.35) X 10*3/uL ESR (0-20) mm/Hr Sodium (137-145) mmol/L BUN/Creatinine Ratio (12.00-20.00) Ratio Glucose (74-99) mg/dL POC Glucose (mg/dL) 191 H 319 H 278 H (70-110) mg/dL Hemoglobin A1c (<=6.0) % Calcium (8.4-10.2) mg/dL C-Reactive Protein (<1.0) mg/dL 10/05/23 10/05/23 10/05/23 Range/Units 05:56 05:56 05:56 MCHC 30.8 L (32.0-37.0) g/dL Eosinophils # 0.56 H (0.04-0.35) X 10*3/uL ESR (0-20) mm/Hr Sodium (137-145) mmol/L BUN/Creatinine Ratio 11.57 L (12.00-20.00) Ratio Glucose 307 H (74-99) mg/dL POC Glucose (mg/dL) (70-110) mg/dL Hemoglobin A1c 12.7 H (<=6.0) % Calcium 8.4 L (8.4-10.2) mg/dL C-Reactive Protein (<1.0) mg/dL Microbiology - Last 24 Hours (Table) 10/03/23 23:30 Gram Stain - Preliminary Leg - Left Wound Culture - Preliminary Presumptive Staph aureus Assessment and Plan (1) Chronic venous hypertension (idiopathic) with ulcer and inflammation of bilateral lower extremity Current Visit: No Status: Acute Code(s): I87.333 - CHRONIC VENOUS HTN W ULCER AND INFLAM OF BILATERAL LOW EXTRM; L97.919 - NON-PRS CHRONIC ULC UNSP PRT OF R LOW LEG W UNSP SEVERITY; L97.929 - NON-PRS CHRONIC ULC UNSP PRT OF L LOW LEG W UNSP SEVERITY SNOMED Code(s): 609133219528032 (2) Non-pressure chronic ulcer of other part of right lower leg with fat layer exposed Current Visit: No Status: Acute Code(s): L97.812 - NON-PRS CHRONIC ULCER OTH PRT R LOW LEG W FAT LAYER EXPOSED SNOMED Code(s): 88667352590332948 (3) Nonhealing ulcer of multiple sites of left lower extremity with fat layer exposed Current Visit: No Status: Acute Code(s): L97.922 - NON-PRS CHR ULC UNSP PRT OF L LOW LEG W FAT LAYER EXPOSED SNOMED Code(s): 18322401 (4) Type 2 diabetes mellitus with other skin ulcer Current Visit: No Status: Acute Code(s): E11.622 - TYPE 2 DIABETES MELLITUS WITH OTHER SKIN ULCER; L98.499 - NON-PRESSURE CHRONIC ULCER OF SKIN OF SITES W UNSP SEVERITY SNOMED Code(s): 925544155
[2023-10-05 12:24] LABS: Glucose,Whole Blood 405 mg/dL (70-110)
--- NOTE | 2023-10-05 14:37 | P.PN ---
Subjective Progress Note Date: 10/05/23 Hospital course: Patient is a very pleasant 53-year-old male with a past medical history of CAD status post cardiac arrest, ischemic cardiomyopathy with chronic systolic heart failure with EF of 20-25%, hypertension, hyperlipidemia, COPD, insulin- dependent diabetes mellitus, and chronic venous stasis dermatitis. He presented to the emergency department secondary to concerns of ulcerations developing in his bilateral lower extremities. Upon arrival to the emergency department, roberto carlos reynaga underwent evaluation. Vital signs showing blood pressure 177/108, heart rate 103, respiratory rate 20, temp 97.7 F, and SpO2 of 97% on room air. Labs were completed and reviewed. CBC showing no significant abnormalities. BMP revealing hyponatremia with sodium of 127, hypochloremia with chloride of 97, creatinine of 1.42 at baseline, and glucose significantly elevated at 536. Lactic acid was normal findings at 1.8. Liver profile showing no significant abnormalities with the exception of hypoalbuminemia with albumin of 2.6. Urinalysis positive for protein, glucose, and blood negative for infection. Acetone was negative. Blood cultures were obtained and patient was started on I V antibiotics with vancomycin and Rocephin. He was admitted under our services with consultation to infectious disease and wound care. Physical exam: Vital. signs reviewed and stable. General: Nontoxic, no distress and appears stated age. Derm: Skin warm and dry, normal coloration for ethnicity. Head: Atraumatic, normocephalic and symmetric. Eyes: EOMs intact, no lid lag, and anicteric sclera Mouth: no lip lesions, mucus membranes moist Cardiovascular: regular rate and rhythm with normal S1S2, no murmur, positive posterior tibial pulses bilaterally, and cap refill < 2 seconds. Lungs: Respirations even, regular, and unlabored on room air. Lungs CTA bilaterally with no wheezes, rhonchi, rales, or crackles noted. No accessory muscle usage. Abdominal: Obese soft, nontender to palpation, no guarding, no appreciable organomegaly Ext: ROM intact. No gross muscle atrophy, 1+ bilateral lower extremity edema, no contractures. Venous stasis dermatitis to bilateral lower extremities with excessive scaling skin and multiple stage II ulcers with areas of surrounding erythema worse on left. Neuro: Speech clear, face symmetrical and CN II-XII grossly intact with no noted focal neuro deficits Psych: Alert and oriented to person, place, time, and situation. Appropriate and pleasant affect. Assessment and Plan of Care: Bilateral lower extremity ulcers with concerns of surrounding cellulitis infection Type 2 insulin-dependent diabetes mellitus with hyperglycemia, poorly controlled Pseudohyponatremia secondary to poorly controlled blood glucose levels -Continue IV antibiotics with cefepime 2 g IVPB every 8 hours and vancomycin 2250 mg every 16 hours. Will monitor renal function and vancomycin trough closely to monitor for any signs of vancomycin associated renal toxicity. -Infectious disease following, reviewed documentation in chart and infectious disease physician discontinued Rocephin and started patient on cefepime while awaiting culture results. -Patient to continue Farxiga 10 mg daily, Levemir increased to 45 units daily and due to persistent hyperglycemia with glucose ranging from 191-440 over the past 24 hours, patient placed on fixed dose NovoLog 5 units with each meal in addition to NovoLog sliding scale to obtain tight glycemic control throughout hospitalization. -Preliminary wound culture results showing presumptive Staph aureus, follow-up on final wound cultures and blood culture results. Hypertension, poorly controlled CAD History of cardiac arrest Ischemic cardiomyopathy with chronic systolic heart failure with EF of 20-25% Hyperlipidemia -Patient to continue daily medication regimen with amlodipine 5 mg daily, aspirin 81 mg, atorvastatin 80 mg nightly, carvedilol 37.5 mg twice daily, and losartan 25 mg daily. COPD -Continue nebulizer treatments every 4 hours as needed for shortness of breath and for for wheezing along with Symbicort daily. Data and imaging reviewed Morning labs reviewed. CBC unremarkable. BMP showing persistent hyperglycemia with current glucose of 278. Blood glucose levels ranging from 191-440 over the past 24 hours. Vital signs reviewed blood pressure elevated at 163/115, heart rate 107, respiratory rate 18, temp 99.2 F, and SpO2 of 97% on room air CODE STATUS: Full code DVT prophylaxis: Lovenox Anticipated discharge date: Clinical course to determine Anticipated discharge place: Home Patient was seen independently by Nurse Pracitioner. This document was prepared using [employer] dictation software. Please allow for errors in medical historian, while rare they do occur. Michael Saleem NP rendered care for this patient independently, reviewed the findings and plan as documented in the note above. I did not physically speak with or examine the patient on this date. Objective - Vital Signs Vital signs: Vital Signs Temp 97.8 F 10/05/23 02:00 Pulse 61 10/05/23 02:00 Resp 17 10/05/23 02:00 BP 139/82 10/05/23 02:00 Pulse Ox 95 10/05/23 02:00 FiO2 Intake & Output 10/04/23 10/05/23 10/05/23 18:59 06:59 18:59 Intake Total 712 120 Balance 712 120 Weight 154.221 kg Intake: Oral 712 120 Other: Voiding Method Toilet # Voids 1 2 - Labs CBC & Chem 7: 10/06/23 07:15 10/06/23 07:15 Labs: Abnormal Lab Results - Last 24 Hours (Table) 10/04/23 10/04/23 10/04/23 Range/Units 11:38 11:38 12:19 ESR 102 H (0-20) mm/Hr Sodium 129 L (137-145) mmol/L Glucose 463 H (74-99) mg/dL POC Glucose (mg/dL) 440 H (70-110) mg/dL Calcium 8.3 L (8.4-10.2) mg/dL C-Reactive Protein 4.9 H (<1.0) mg/dL 10/04/23 10/04/23 10/05/23 Range/Units 17:22 20:16 05:47 ESR (0-20) mm/Hr Sodium (137-145) mmol/L Glucose (74-99) mg/dL POC Glucose (mg/dL) 191 H 319 H 278 H (70-110) mg/dL Calcium (8.4-10.2) mg/dL C-Reactive Protein (<1.0) mg/dL Microbiology - Last 24 Hours (Table) 10/03/23 23:30 Gram Stain - Preliminary Leg - Left
[2023-10-05 17:23] LABS: Glucose,Whole Blood 271 mg/dL (70-110)
[2023-10-05 17:26] VITALS: BMI 47.4
--- NOTE | 2023-10-05 17:40 | P.PN ---
Subjective Progress Note Date: 10/05/23 Principal diagnosis: Reason for follow-up is bilateral lower extremity venous stasis ulcer and cellulitis Patient is a 53-year-old male with multiple comorbidities including bilateral lower extremity chronic swelling and venous stasis ulcer presented to hospital with worsening swelling redness concerning for cellulitis. On today's visit that is 10/05/2023,the patient denies any fever or any chills, patient is breathing comfortably on room air, the patient denies chest pain shortness of breath and no significant cough, patient denies abdominal pain, no nausea vomiting or diarrhea. Patient denies having any pain to bilateral extremity swelling improved with Bobby wrap. Patient white count is 8.10, creatinine 1.4 cultures growing presumptive Staph aureus Objective - Vital Signs Vital signs: Vital Signs Temp 98.3 F 10/05/23 07:45 Pulse 68 10/05/23 12:47 Resp 16 10/05/23 07:45 BP 149/97 10/05/23 07:45 Pulse Ox 100 10/05/23 07:45 FiO2 Intake & Output 10/04/23 10/05/23 10/05/23 18:59 06:59 18:59 Intake Total 712 120 354 Balance 712 120 354 Weight 154.221 kg Intake: Oral 712 120 354 Other: Voiding Method Toilet # Voids 1 2 - Exam GENERAL DESCRIPTION: Middle-aged male lying in bed in no distress RESPIRATORY SYSTEM: Unlabored breathing , decreased breath sounds at bases HEART: S1 S2 regular rate and rhythm , ABDOMEN: Soft , no tenderness EXTREMITIES: Bilateral lower extremity: Wrap and Bobby wrap no drainage on the dressing - Labs CBC & Chem 7: 10/05/23 05:56 10/05/23 05:56 Labs: Abnormal Lab Results - Last 24 Hours (Table) 10/04/23 10/04/23 10/04/23 Range/Units 11:38 17:22 20:16 MCHC (32.0-37.0) g/dL Eosinophils # (0.04-0.35) X 10*3/uL ESR 102 H (0-20) mm/Hr BUN/Creatinine Ratio (12.00-20.00) Ratio Glucose (70-110) mg/dL POC Glucose (mg/dL) 191 H 319 H (70-110) mg/dL Hemoglobin A1c (<=6.0) % Calcium (8.7-10.3) mg/dL 10/05/23 10/05/23 10/05/23 Range/Units 05:47 05:56 05:56 MCHC 30.8 L (32.0-37.0) g/dL Eosinophils # 0.56 H (0.04-0.35) X 10*3/uL ESR (0-20) mm/Hr BUN/Creatinine Ratio (12.00-20.00) Ratio Glucose (70-110) mg/dL POC Glucose (mg/dL) 278 H (70-110) mg/dL Hemoglobin A1c 12.7 H (<=6.0) % Calcium (8.7-10.3) mg/dL 10/05/23 10/05/23 Range/Units 05:56 12:22 MCHC (32.0-37.0) g/dL Eosinophils # (0.04-0.35) X 10*3/uL ESR (0-20) mm/Hr BUN/Creatinine Ratio 11.57 L (12.00-20.00) Ratio Glucose 307 H (70-110) mg/dL POC Glucose (mg/dL) 405 H (70-110) mg/dL Hemoglobin A1c (<=6.0) % Calcium 8.4 L (8.7-10.3) mg/dL Microbiology - Last 24 Hours (Table) 10/03/23 23:30 Blood Culture - Preliminary Blood 10/03/23 23:45 Blood Culture - Preliminary Blood 10/03/23 23:30 Gram Stain - Preliminary Leg - Left Wound Culture - Preliminary Presumptive Staph aureus Assessment and Plan (1) Bilateral leg ulcer Current Visit: Yes Status: Acute Code(s): L97.919 - NON-PRS CHRONIC ULC UNSP PRT OF R LOW LEG W UNSP SEVERITY; L97.929 - NON-PRS CHRONIC ULC UNSP PRT OF L LOW LEG W UNSP SEVERITY SNOMED Code(s): 68842771 (2) Bilateral lower leg cellulitis Current Visit: Yes Status: Acute Code(s): L03.116 - CELLULITIS OF LEFT LOWER LIMB; L03.115 - CELLULITIS OF RIGHT LOWER LIMB SNOMED Code(s): 540835056 Plan: 1patient with bilateral lower extremity venous stasis ulcer and cellulitis especially to the left lower extremity likely from gram-positive skin birdie underlying gram-negative infection less likely but not entirely excluded 2-local culture has been obtained which are currently growing Staph aureus sensitivities pending 3-local wound care with a dry Aquacel dressing and Bobby wrap to help decrease some of the swelling 4-patient to continue the vancomycin pharmacy dose while watching his kidney function closely along with cefepime while waiting for the culture to finalize Dictation was produced using [employer] dictation software. please excuse any grammatical, word or spelling errors. Time with Patient: Less than 30
[2023-10-05] MEDS: INSULIN ASPART (NovoLOG) 100 UNIT/ML VIAL SQ SCH (17:55)
[2023-10-05 20:30] LABS: Glucose,Whole Blood 337 mg/dL (70-110)
[2023-10-06 06:04] LABS: Glucose,Whole Blood 232 mg/dL (70-110)
[2023-10-06] MEDS: INSULIN DETEMIR (LEVEMIR) 100 UNIT/ML SYR SQ SCH (06:33)
[2023-10-06 11:32] LABS: HCT 40.5 % (39.6-50.0); HGB 12.7 g/dL (13.0-17.0); MCH 27.8 pg (27.0-32.0); MCHC 31.4 g/dL (32.0-37.0); MCV 88.6 FL (80.0-97.0); Mean Platelet Volume 10.8 FL (9.5-12.2); NRBC Per 100 WBC 0 X 10*3/uL (0.00-0.01); Platelet Count 271 X 10*3/uL (140-440); RBC 4.57 X 10*6/uL (4.40-5.60); RDW 14.2 % (11.5-14.5); WBC 9.55 X 10*3/uL (4.50-10.00)
[2023-10-06 11:41] LABS: ALT 8 U/L (10-49); AST 14 U/L (14-35); Albumin 2.5 g/dL (3.8-4.9); Albumin/Globulin Ratio 0.96 Ratio (1.60-3.17); Alkaline Phosphatase 77 U/L (41-126); BUN/Creat Ratio 14.38 Ratio (12.00-20.00); Blood Urea Nitrogen 18.7 mg/dL (9.0-27.0); Calcium 8.4 mg/dL (8.7-10.3); Carbon Dioxide 22.9 mmol/L (21.6-31.8); Chloride 104 mmol/L (96-109); Globulin 2.6 g/dL (1.6-3.3); Glucose 208 mg/dL (70-110); Magnesium 2.2 mg/dL (1.5-2.4); Potassium 4.8 mmol/L (3.5-5.5); Sodium 136 mmol/L (135-145); Total Bilirubin 0.3 mg/dL (0.3-1.2); Total Protein 5.1 g/dL (6.2-8.2)
[2023-10-06 12:15] LABS: Glucose,Whole Blood 201 mg/dL (70-110)
[2023-10-06 14:52] VITALS: BP 154/92; RESP 19; TEMP 98.3
--- NOTE | 2023-10-06 15:49 | P.PN ---
Subjective Progress Note Date: 10/06/23 Principal diagnosis: Reason for follow-up is bilateral lower extremity venous stasis ulcer and cellulitis Patient is a 53-year-old male with multiple comorbidities including bilateral lower extremity chronic swelling and venous stasis ulcer presented to hospital with worsening swelling redness concerning for cellulitis. On today's visit that is 10/06/2023,the patient remains to be afebrile, patient is on room air not requiring supplemental oxygen and denies any shortness of breath no chest pain or cough.Patient denies having any nausea or vomiting, no abdominal pain and no diarrhea has been reported, overall discomfort to the lower extremity has decreased in intensity. Patient white count is 9.55, creatinine is 1.3 culture with MSSA Objective - Vital Signs Vital signs: Vital Signs Temp 97.8 F 10/06/23 07:00 Pulse 60 10/06/23 11:49 Resp 16 10/06/23 07:00 BP 163/88 10/06/23 07:00 Pulse Ox 98 10/06/23 07:00 FiO2 Intake & Output 10/05/23 10/06/23 10/06/23 18:59 06:59 18:59 Intake Total 1184 Balance 1184 Weight 154.221 kg Intake: Oral 1184 Other: # Voids 3 2 - Exam GENERAL DESCRIPTION: Middle-aged male lying in bed in no distress RESPIRATORY SYSTEM: Unlabored breathing , decreased breath sounds at bases HEART: S1 S2 regular rate and rhythm , ABDOMEN: Soft , no tenderness EXTREMITIES: Bilateral lower extremity swelling and redness has decreased - Labs CBC & Chem 7: 10/06/23 07:15 10/06/23 07:15 Labs: Abnormal Lab Results - Last 24 Hours (Table) 10/05/23 10/05/23 10/06/23 Range/Units 17:21 20:29 06:03 Hgb (13.0-17.0) g/dL MCHC (32.0-37.0) g/dL Glucose (70-110) mg/dL POC Glucose (mg/dL) 271 H 337 H 232 H (70-110) mg/dL Calcium (8.7-10.3) mg/dL ALT (10-49) U/L Total Protein (6.2-8.2) g/dL Albumin (3.8-4.9) g/dL Albumin/Globulin Ratio (1.60-3.17) Ratio 10/06/23 10/06/23 10/06/23 Range/Units 07:15 07:15 12:14 Hgb 12.7 L (13.0-17.0) g/dL MCHC 31.4 L (32.0-37.0) g/dL Glucose 208 H (70-110) mg/dL POC Glucose (mg/dL) 201 H (70-110) mg/dL Calcium 8.4 L (8.7-10.3) mg/dL ALT 8 L (10-49) U/L Total Protein 5.1 L (6.2-8.2) g/dL Albumin 2.5 L (3.8-4.9) g/dL Albumin/Globulin Ratio 0.96 L (1.60-3.17) Ratio Microbiology - Last 24 Hours (Table) 10/03/23 23:30 Blood Culture - Preliminary Blood 10/03/23 23:45 Blood Culture - Preliminary Blood 10/03/23 23:30 Gram Stain - Final Leg - Left Wound Culture - Final Staphylococcus aureus Assessment and Plan (1) Bilateral leg ulcer Current Visit: Yes Status: Acute Code(s): L97.919 - NON-PRS CHRONIC ULC UNSP PRT OF R LOW LEG W UNSP SEVERITY; L97.929 - NON-PRS CHRONIC ULC UNSP PRT OF L LOW LEG W UNSP SEVERITY SNOMED Code(s): 46518380 (2) Bilateral lower leg cellulitis Current Visit: Yes Status: Acute Code(s): L03.116 - CELLULITIS OF LEFT LOWER LIMB; L03.115 - CELLULITIS OF RIGHT LOWER LIMB SNOMED Code(s): 176644683 Plan: 1patient with bilateral lower extremity venous stasis ulcer and cellulitis especially to the left lower extremity likely from gram-positive skin birdie underlying gram-negative infection less likely but not entirely excluded 2-local culture has been obtained which are currently growing MSSA 3-local wound care with a dry Aquacel dressing and Bobby wrap to help decrease some of the swelling 4-we will discontinue vancomycin and cefepime start the patient on cefazolin 2 g every 8 hours with a plan to finish therapy with oral Keflex discussed with the PROPERTY INSURANCE INSPECTOR for admitting team Dictation was produced using [employer] dictation software. please excuse any gr ammatical, word or spelling errors. Time with Patient: Less than 30
[2023-10-06 16:03] VITALS: PULSE 68
--- NOTE | 2023-10-06 16:47 | P.DS ---
Providers Date of admission: 10/04/23 02:10 Expected date of discharge: 10/06/23 Attending physician: Jose Coy MD Consults: 10/04/23 02:10 Consult Physician Urgent Consulting Provider: Hieu Alfred Consult Reason/Comments: Ulceraction bilateral lower extremities hx mrsa Do you want consulting provider notified?: Yes Primary care physician: [facility] Hospital Course: Discharge Diagnosis: Bilateral lower extremity ulcers with concerns of surrounding cellulitis. Blood cultures positive for MSSA. Patient received 3-day course of IV antibiotics and was evaluated by infectious disease physician and wound care. Patient cleared by infectious disease physician for discharge home on Keflex 500 mg 4 times daily for 7 days. Patient to follow-up outpatient with PCP in 1 to 2 days and with wound care center in 1 week. Type 2 insulin-dependent diabetes mellitus with hyperglycemia, poorly controlled. Patient has longstanding history of poorly controlled diabetes mellitus. His hemoglobin A1c is 12.7%. Patient admits to not checking his blood glucose levels at home and taking insulin as prescribed. Patient was educated on the importance of checking blood glucose levels and taking insulin, metformin, and Jardiance as prescribed. Pseudohyponatremia secondary to poorly controlled blood glucose levels. Hypertension, poorly controlled CAD History of cardiac arrest Ischemic cardiomyopathy with chronic systolic heart failure with EF of 20-25% Hyperlipidemia COPD Hospital Course: Patient is a very pleasant 53-year-old male with a past medical history of CAD status post cardiac arrest, ischemic cardiomyopathy with chronic systolic heart failure with EF of 20-25%, hypertension, hyperlipidemia, COPD, insulin- dependent diabetes mellitus, and chronic venous stasis dermatitis. He presented to the emergency department secondary to concerns of ulcerations developing in his bilateral lower extremities. Upon arrival to the emergency department, patient underwent evaluation. Vital signs showing blood pressure 177/108, heart rate 103, respiratory rate 20, temp 97.7 F, and SpO2 of 97% on room air. Labs were completed and reviewed. CBC showing no significant abnormalities. BMP revealing hyponatremia with sodium of 127, hypochloremia with chloride of 97, creatinine of 1.42 at baseline, and glucose significantly elevated at 536. Lactic acid was normal findings at 1.8. Liver profile showing no significant abnormalities with the exception of hypoalbuminemia with albumin of 2.6. Urinalysis positive for protein, glucose, and blood negative for infection. Acetone was negative. Blood cultures were obtained and patient was started on IV antibiotics with vancomycin and Rocephin. He was admitted under our services with consultation to infectious disease and wound care secondary to Bilateral lower extremity ulcers concerning for surrounding cellulitis. Blood cultures positive for MSSA. Patient received 3-day course of IV antibiotics and was evaluated by infectious disease physician and wound care. Patient cleared by infectious disease physician for discharge home on Keflex 500 mg 4 times daily for 7 days. Patient to follow-up outpatient with PCP in 1 to 2 days and with wound care center in 1 week. Physical exam: Vital. signs reviewed and stable. General: Nontoxic, no distress and appears stated age. Derm: Skin warm and dry, normal coloration for ethnicity. Head: Atraumatic, normocephalic and symmetric. Eyes: EOMs intact, no lid lag, and anicteric sclera Mouth: no lip lesions, mucus membranes moist Cardiovascular: regular rate and rhythm with normal S1S2, no murmur, positive posterior tibial pulses bilaterally, and cap refill < 2 seconds. Lungs: Respirations even, regular, and unlabored on room air. Lungs CTA bilaterally with no wheezes, rhonchi, rales, or crackles noted. No accessory muscle usage. Abdominal: Obese soft, nontender to palpation, no guarding, no appreciable organomegaly Ext: ROM intact. No gross muscle atrophy, 1+ bilateral lower extremity edema, no contractures. Venous stasis dermatitis to bilateral lower extremities with excessive scaling skin and multiple stage II ulcers with areas of surrounding erythema worse on left. Neuro: Speech clear, face symmetrical and CN II-XII grossly intact with no noted focal neuro deficits Psych: Alert and oriented to person, place, time, and situation. Appropriate and pleasant affect. A total of 35 minutes of time were spent preparing this complex discharge summary. Pt was discharged on 10/06/2023 at 4:44 PM. Patient was seen independently by Nurse Practitioner. This document was prepared using codetag dictation software. Please allow for errors in supervisor special services while rare they do occur. Michael Saleem NP rendered care for this patient independently, reviewed the findings and plan as documented in the note above. I did not physically speak with or examine the patient on this date. Patient Condition at Discharge: Stable Plan - Discharge Summary New Discharge Prescriptions: New Cephalexin [Keflex] 500 mg PO Q6HR 7 Days #28 cap Continue Atorvastatin [Lipitor] 80 mg PO HS #30 tab metFORMIN HCL [Glucophage] 1,000 mg PO BID Ipratropium/Albuterol Sulfate [Combivent Respimat Inhaler] 1 puff INHALATION RT-QID Omeprazole 20 mg PO DAILY Aspirin EC [Ecotrin Low Dose] 81 mg PO DAILY Insulin Glargine,Hum.rec.anlog [Lantus Solostar Pen] 40 unit SQ DAILY Fluticasone Propion/Salmeterol [Wixela 250-50 Inhub] 1 puff INHALATION RT-BID carvediloL 37.5 mg PO BID Ipratropium [place] 0.2 mg INHALATION RT-Q6H PRN PRN Reason: Shortness Of Breath Petrolat,White/Ronal/8-Hydroxyqu [Bag [place]] 1 gm TOPICAL DAILY Losartan [Cozaar] 25 mg PO DAILY 30 Days #30 tab Multivitamins, Thera [Multivitamin (formulary)] 1 tab PO DAILY Albuterol Nebulized [Ventolin Nebulized] 2.5 mg INHALATION RT-Q4H PRN PRN Reason: Shortness Of Breath Empagliflozin [Jardiance] 25 mg PO DAILY amLODIPine [Norvasc] 5 mg PO DAILY 30 Days #30 tab Discharge Medication List Atorvastatin [Lipitor] 80 mg PO HS #30 tab 02/27/16 [Rx] Ipratropium/Albuterol Sulfate [Combivent Respimat Inhaler] 1 puff INHALATION RT- QID 01/12/19 [History] metFORMIN HCL [Glucophage] 1,000 mg PO BID 01/12/19 [History] Omeprazole 20 mg PO DAILY 03/14/19 [History] Aspirin EC [Ecotrin Low Dose] 81 mg PO DAILY 10/17/20 [History] Albuterol Nebulized [Ventolin Nebulized] 2.5 mg INHALATION RT-Q4H PRN 01/15/22 [History] Fluticasone Propion/Salmeterol [Wixela 250-50 Inhub] 1 puff INHALATION RT-BID 01/15/22 [History] Insulin Glargine,Hum.rec.anlog [Lantus Solostar Pen] 40 unit SQ DAILY 01/15/22 [History] Ipratropium [place] 0.2 mg INHALATION RT-Q6H PRN 01/15/22 [History] Multivitamins, Thera [Multivitamin (formulary)] 1 tab PO DAILY 01/15/22 [History] carvediloL 37.5 mg PO BID 01/15/22 [History] Empagliflozin [Jardiance] 25 mg PO DAILY 05/02/23 [History] Petrolat,White/Ronal/8-Hydroxyqu [Bag [place]] 1 gm TOPICAL DAILY 06/13/23 [History] Losartan [Cozaar] 25 mg PO DAILY 30 Days #30 tab 06/17/23 [Rx] amLODIPine [Norvasc] 5 mg PO DAILY 30 Days #30 tab 06/17/23 [Rx] Cephalexin [Keflex] 500 mg PO Q6HR 7 Days #28 cap 10/06/23 [Rx] Follow up Appointment(s)/Referral(s): [facility] [NON-STAFF] - [address] [facility],Clinic [Primary Care Provider] - 1-2 days Activity/Diet/Wound Care/Special Instructions: Activity: As tolerated. Take breaks as needed. Diet: Heart healthy and carb consistent diet. Avoid salts, or foods with hidden salts such as canned or boxed foods and frozen dinners. Extra salt makes your heart work harder and traps the fluid in your body for longer. Special Instructions: Take all of your medications as directed and remember to keep all of your doctor's appointments and follow-up as needed. As we discussed at bedside, your blood glucose levels are very poorly controlled and your hemoglobin A1c is 12.7%. We discussed at bedside that you have not been checking your blood sugars at home and as we discussed it is of utmost importance for you to monitor your glucose levels closely and take your insulin, Glucophage, and Jardiance as prescribed. If you do not get better control of your blood glucose levels, it will lead to further deteriorating health complications. Recommend documenting your blood glucose levels into a daily log twice daily and bring with you to your next PCPs appointment. Once taking your insulin, Jardiance, and Glucophage as previously prescribed and sticking to a carb consistent diet, further adjustments can be made to your medication regimen if needed. Thank you for allowing us to participate in your care, it was truly a pleasure having you for our patient!!! Discharge Disposition: HOME SELF-CARE
[2023-10-06 16:57] LABS: Glucose,Whole Blood 176 mg/dL (70-110)
[2023-10-07] MEDS ORDERED: VANCOMYCIN TROUGH DUE 1 EACH MISC MISCELLANE ONE (10:00)
== END 2023-10-06 18:58 | disposition home or self-care (01) ==
LOC: EC 21:31 → 6NMEDSUR 10-04 02:10
PROVIDERS: ADMIT Internal Medicine; ATTEND Internal Medicine
DX: I87.333 Chronic venous hypertension (idiopathic) with ulcer and inflammation of bilateral lower extremity (principal); E11.622 Type 2 diabetes mellitus with other skin ulcer; L97.922 Non-pressure chronic ulcer of unspecified part of left lower leg with fat layer exposed; L97.912 Non-pressure chronic ulcer of unspecified part of right lower leg with fat layer exposed; B95.61 Methicillin susceptible Staphylococcus aureus infection as the cause of diseases classified elsewhere; L03.115 Cellulitis of right lower limb; L03.116 Cellulitis of left lower limb; I87.2 Venous insufficiency (chronic) (peripheral); E11.51 Type 2 diabetes mellitus with diabetic peripheral angiopathy without gangrene; E11.65 Type 2 diabetes mellitus with hyperglycemia; I25.10 Atherosclerotic heart disease of native coronary artery without angina pectoris; I11.0 Hypertensive heart disease with heart failure; I50.22 Chronic systolic (congestive) heart failure; J44.9 Chronic obstructive pulmonary disease, unspecified; K21.9 Gastro-esophageal reflux disease without esophagitis; E78.5 Hyperlipidemia, unspecified; G47.33 Obstructive sleep apnea (adult) (pediatric); I25.5 Ischemic cardiomyopathy; I25.2 Old myocardial infarction; Z86.718 Personal history of other venous thrombosis and embolism; Z86.74 Personal history of sudden cardiac arrest; Z87.891 Personal history of nicotine dependence; Z95.5 Presence of coronary angioplasty implant and graft; Z79.4 Long term (current) use of insulin; Z79.82 Long term (current) use of aspirin; Z79.84 Long term (current) use of oral hypoglycemic drugs; Z79.899 Other long term (current) drug therapy; Z88.1 Allergy status to other antibiotic agents
CPT/HCPCS: 96366 ×4; 96367 ×2; 96372 ×3; 96365; 96375; 99284; 36415; 94640 ×6; 80053 ×2; 80048 ×2; 85652; 82009; 83605; 83735 ×2; 85025 ×2; 85027; 86140; 81001; 87040; 87070; 87205; 87077; 87186; 83036; G0378 ×4; J3370 ×3; J0360; J0690; J1650 ×3; J0696; J0692 ×3

== ENCOUNTER → 2023-10-23 | Outpatient (CLI) | payer OTHER ==
--- NOTE | 2023-10-23 16:35 | US ---
EXAMINATION TYPE: US arterial LE single level DATE OF EXAM: 10/23/2023 10:55 AM CLINICAL INDICATION: Male, 53 years old with history of L97.222 NON-PRESSURE CHRONIC ULER OF LEFT RADHA F WIT; ulcer calves History of: Smoker: Previous Hypertension: yes Diabetic: yes Hyperlipidemia: no TIA/CVA: yes Previous Vascular Surgery: yes CAD: no CT: yes Vascular Ulcers: yes Claudication: no Gangrene: no Doppler Waveforms: Right: Irregular nondiagnostic waveform Left: Monophasic Ankle-Brachial Indices: Right: non occluding Left: 0.98 (Vessel hardening > 1.4; Normal 0.9 - 1.4, Moderate 0.7 - 0.9, Severe 0.5-0.7) Toe Brachial Indices: Right: unable to get good signals Left: unable to get good signals IMPRESSION: Nondiagnostic right, normal left ankle brachial indices.
== END | disposition home or self-care (01) ==
LOC: RADUSWWP 09:57
PROVIDERS: ATTEND Thoracic Surgery (Cardiothoracic Vascular Surgery)
DX: L97.222 Non-pressure chronic ulcer of left calf with fat layer exposed (principal); L97.212 Non-pressure chronic ulcer of right calf with fat layer exposed; E11.622 Type 2 diabetes mellitus with other skin ulcer; I87.333 Chronic venous hypertension (idiopathic) with ulcer and inflammation of bilateral lower extremity; E66.01 Morbid (severe) obesity due to excess calories
CPT/HCPCS: 84134; 93922

== ENCOUNTER → 2023-11-11 | Outpatient (CLI) | payer OTHER ==
--- NOTE | 2023-11-11 10:02 | XR ---
EXAMINATION TYPE: XR chest 2V DATE OF EXAM: 11/11/2023 9:31 AM CLINICAL INDICATION:Male, 53 years old with history of J44.9 CHRONIC OBSTRUCTIVE PULMONARY DISEASE, U NSPE; [facility] COMPARISON: Chest radiographs from 06/14/2023 TECHNIQUE: XR chest 2V Frontal and lateral views of the chest. FINDINGS: Lungs/Pleura: There is no evidence of pleural effusion, focal consolidation, or pneumothorax. Pulmonary vascularity: Unremarkable. Heart/mediastinum: Cardiomediastinal silhouette is unremarkable. Musculoskeletal: No acute osseous pathology. IMPRESSION: No acute cardiopulmonary disease/process.
== END | disposition home or self-care (01) ==
LOC: RADXRMAIN 09:06
PROVIDERS: ATTEND Internal Medicine Sleep Medicine
DX: J44.9 Chronic obstructive pulmonary disease, unspecified (principal)
CPT/HCPCS: 71046

== ENCOUNTER → 2024-01-13 | Outpatient (CLI) | payer OTHER ==
[2024-01-13 10:51] LABS: HGB 14.2 gm/dL (13.0-17.5); Hypochromasia Slight; MCH 28.3 pg (25.0-35.0); MCHC 30.9 g/dL (31.0-37.0); MCV 91.3 fL (80.0-100.0); Mean Platelet Volume 8.3; Platelet Count 243 k/uL (150-450); RBC 5.03 m/uL (4.30-5.90); RDW 14.3 % (11.5-15.5)
[2024-01-13 16:58] LABS: NT-Pro-B-Type Natriuretic Pept 3038 pg/mL (0-125)
[2024-01-13 21:44] LABS: ALT 11 U/L (10-49); AST 17 U/L (14-35); Alkaline Phosphatase 76 U/L (41-126); BUN/Creat Ratio 6.19 Ratio (12.00-20.00); Blood Urea Nitrogen 9.9 mg/dL (9.0-27.0); Calcium 8.9 mg/dL (8.7-10.3); Carbon Dioxide 24.6 mmol/L (21.6-31.8); Chloride 99 mmol/L (96-109); Chol/HDL Ratio 5.12 Ratio; Glucose 227 mg/dL (70-110); LDL Cholesterol,Calculated 121.2 mg/dL (0.0-131.0); Potassium 3.9 mmol/L (3.5-5.5); Sodium 138 mmol/L (135-145); Total Bilirubin 0.4 mg/dL (0.3-1.2)
== END | disposition home or self-care (01) ==
LOC: LABWHC1 09:15
PROVIDERS: ATTEND Student in an Organized Health Care Education/Training Program
DX: I50.9 Heart failure, unspecified (principal); E11.22 Type 2 diabetes mellitus with diabetic chronic kidney disease; N18.9 Chronic kidney disease, unspecified; D63.1 Anemia in chronic kidney disease
CPT/HCPCS: 36415; 80053; 80061; 83036; 83880; 84443; 85027

== ENCOUNTER 2024-01-23 15:46 | Inpatient (IN) | payer OTHER ==
[2024-01-23] MEDS ORDERED: VANCOMYCIN IV PER PHARMACY 1 EACH MISC MISCELLANE PRN (16:29)
--- NOTE | 2024-01-23 16:34 | ED ---
Weakness HPI - General Chief complaint: Weakness Stated complaint: Weakness, Fever Time Seen by Provider: 01/23/24 15:56 Source: patient, EMS Mode of arrival: EMS Limitations: physical limitation - History of Present Illness Initial comments: Patient is a 54-year-old gentleman the past medical history of CHF, obesity, diabetes, chronic lower extremity wounds, presenting today for generalized weakness. Patient states he had a fever last night and thought coming to the ER but did not. This morning he attempted to sit on the toilet and felt so weak t hat instead of landing on the toilet he landed on the ground. He denies injury when he fell however he was unable to get up due to the position he landed in. His niece attempted to help him get up however she was unable to. Because patient was unable to get up EMS was called. Patient states that he has chronic wounds in his lower extremities that are changed and managed by the wound clinic. Last visit with them on Thursday. Does endorse pain in his bilateral lower extremities, denies other pain. Denies chest pain, abdominal pain. Denies nausea, vomiting, diarrhea. Denies shortness of breath/difficulty in breathing. Denies cough, sore throat. MD Complaint: generalized weakness - Related Data Home Medications Medication Instructions Recorded Confirmed Ipratropium/Albuterol Sulfate 1 puff INHALATION RT-QID 01/12/19 01/23/24 [Combivent Respimat Inhaler] metFORMIN HCL [Glucophage] 1,000 mg PO BID 01/12/19 01/23/24 Omeprazole 20 mg PO DAILY 03/14/19 01/23/24 Aspirin EC [Ecotrin Low Dose] 81 mg PO DAILY 10/17/20 01/23/24 Fluticasone Propion/Salmeterol 1 puff INHALATION RT-BID 01/15/22 01/23/24 [Wixela 250-50 Inhub] Insulin Glargine,Hum.rec.anlog 40 unit SQ DAILY 01/15/22 01/23/24 [Lantus Solostar Pen] Multivitamins, Thera [Multivitamin 1 tab PO DAILY 01/15/22 01/23/24 (formulary)] carvediloL 37.5 mg PO BID-W/MEALS 01/15/22 01/23/24 Empagliflozin [Jardiance] 25 mg PO DAILY 05/02/23 01/23/24 Bumetanide [Bumex] 1 mg PO DAILY 01/23/24 01/23/24 Ergocalciferol (Vitamin D2) 1,250 mcg PO Q7D 01/23/24 01/23/24 [Drisdol (50,000 Iu)] Losartan Potassium [Cozaar] 100 mg PO DAILY 01/23/24 01/23/24 Sodium Chloride Irrig Solution 1 applic IRRIGATION DIRECTED PRN 01/23/2401/10 [Sodium Chloride Irrig] hydrALAZINE HCL [Apresoline] 25 mg PO TID 01/23/24 01/23/24 Previous Rx's Medication Instructions Recorded Atorvastatin [Lipitor] 80 mg PO HS #30 tab 02/27/16 Allergies Allergy/AdvReac Type Severity Reaction Status Date / Time tetracycline Allergy Rash/Hives Verified 01/23/24 18:14 Review of Systems ROS Statement: Those systems with pertinent positive or pertinent negative responses have been documented in the HPI. ROS Other: All systems not noted in ROS Statement are negative. Constitutional: Reports: fever, weakness. Denies: chills Respiratory: Denies: cough, dyspnea Cardiovascular: Denies: chest pain, dyspnea on exertion Gastrointestinal: Denies: abdominal pain, nausea, vomiting, diarrhea Musculoskeletal: Reports: as per HPI Skin: Reports: as per HPI, lesions Past Medical History Past Medical History: Asthma, Coronary Artery Disease (CAD), Heart Failure, COPD, Diabetes Mellitus, Deep Vein Thrombosis (DVT), GERD/Reflux, Hyperlipidemia, Hypertension, Myocardial Infarction ([place]), Renal Disease, Sleep Apnea/CPAP/BIPAP, Vascular Disorder Additional Past Medical History / Comment(s): 02/20/16 [place] with cardiac [id number] wore life vest for 7 weeks, 2010 DVT RIGHT leg, bilateral lower leg cellulitis, bilateral varicose veins, PVD, NIDDM type II, BERTRAND with CPAP. UTI Mar 2021, cellulitis with open wounds on bilateral lower legs being treated in wound center 2021 Last Myocardial Infarction Date:: 02/20/16 History of Any Multi-Drug Resistant Organisms: MRSA Date of last positivie culture/infection: 2017 MDRO Source:: bilateral legs Past Surgical History: Heart Catheterization With Stent Additional Past Surgical History / Comment(s): circumcision Additional Past Anesthesia/Blood Transfusion Reaction / Comment(s): Pt has never had anesthesia Date of Last Stent Placement:: 02/20/16 Past Psychological History: No Psychological Hx Reported Smoking Status: Former smoker Past Alcohol Use History: None Reported Past Drug Use History: None Reported - Past Family History Father Family Medical History: Coronary Artery Disease (CAD), Diabetes Mellitus, Eye Disorder Additional Family Medical History / Comment(s): Bradycardia, blind. Father is in his early 70's. Mother Family Medical History: Coronary Artery Disease (CAD), Diabetes Mellitus Additional Family Medical History / Comment(s): Benign brain tumor. Mother is in her early 70's General Exam - General Exam Comments Initial Comments: PE: CONSTITUTIONAL: Ill-appearing, nontoxic, diaphoretic, disheveled SKIN: warm, damp, dry flaking skin of bilateral LE, mild erythema throughout bilateral distal LE, one -1cm sore anterior right hurst, no creptius, no bullae, dark dried blood on nailbed of right toenail, nail is partially avulsed EYES: pupils are equally round, extraocular movements intact without nystagmus, clear conjunctiva, non-icteric sclera HENT: normocephalic, atraumatic,dry mucus membranes, oropharynx clear without exudates NECK: Normal appearance, moves through full range of motion PULMONARY: clear to auscultation without wheezes, rhonchi, or rales, excursion secondary to body habitus, no accessory muscle use and no stridor CARDIOVASCULAR: regular rate, rhythm, normal S1 and S2. No appreciated murmurs. Strong radial, strong dorsalis pedis pulses with intact distal perfusion GASTROINTESTINAL: soft, non-tender, non-distended, no palpable masses, no rebound or guarding GENITOURINARY: Exam performed with APARNA Cruz as nurse substance abuse, scrotum nontender, no masses, no sores, no induration, unable to visualize penis 2/2 body habitus MUSCULOSKELETAL: Distal bilateral lower extremities are tender to palpation throughout without deformity or bruising, nonpitting edema present in bilateral LE extremities, ROM limited by generalized weakness and body habitus, Upper extremities are atraumatic , no midline spinal tenderness to palpation NEUROLOGIC: _a/o x 3, GCS 15, normal mentation and speech. Moves all extremities x 4 without motor or sensory deficit PSYCHIATRIC: _normal mood and affect, thought process is clear and linear Limitations: physical limitation Course Vital Signs 01/23/24 01/23/24 01/23/24 15:52 18:00 19:30 Temperature 102.3 F H 101.0 F H 99.5 F Pulse Rate 100 97 86 Respiratory 20 22 18 Rate Blood Pressure 116/99 118/99 122/78 O2 Sat by Pulse 90 L 92 L Oximetry 01/23/24 01/23/24 01/23/24 19:45 20:33 21:05 Temperature 97.9 F Pulse Rate 104 H 88 Respiratory 18 16 18 Rate Blood Pressure 117/82 105/71 103/72 O2 Sat by Pulse 93 L 92 L 88 L Oximetry 01/23/24 01/23/24 21:06 22:05 Temperature 97.9 F Pulse Rate 94 Respiratory 16 Rate Blood Pressure 100/79 O2 Sat by Pulse 94 L 94 L Oximetry - Reevaluation(s) Reevaluation #1: 01/23/24 17:58 Patient noted of lactic of 3.5, white blood count 18.7 antibiotics have been previously ordered, 1 L fluids have been given, 30 cc/kg bolus has not been given due to history of heart failure. 01/23/24 17:59 Reevaluation #2: creatinine 1.98, creatinine 1.98, prior on 01/13/2024 was 1.6 GFR 37, previously on 10/03/2466 01/23/24 18:29 Medical Decision Making - Medical Decision Making Was pt. sent in by a medical professional or institution (, PA, WIRE MILL OPERATOR, urgent care, hospital, or senior care...) When possible be specific @ -No Did you speak to anyone other than the patient for history (EMS, parent, family, police, friend...)? What history was obtained from this source @Spoke with patient's niece at bedside Did you review nursing and triage notes (agree or disagree)? Why? @ -I reviewed and agree with nursing and triage notes Were old charts reviewed (outside hosp., previous admission, EMS record, old EKG, old radiological studies, urgent care reports/EKG's, senior care records)? Report findings @ -Patient last admitted on 10/04/2023 and discharged on 10/06/23 for lower extremity ulcers out of concern for cellulitis Differential Diagnosis (chest pain, altered mental status, abdominal pain women, abdominal pain men, vaginal bleeding, weakness, fever, dyspnea, syncope, headache, dizziness, GI bleed, back pain, seizure, CVA, palpatations, mental health, musculoskeletal)? @ Differential Weakness: Hypoglycemia, shock, sepsis, hyponatremia, anemia, infection, [place], ETOH, adverse medicine reaction, this is not meant to be an all-inclusive list. EKG interpreted by me (3pts min.). @ -As above X-rays interpreted by me (1pt min.). @ -Reviewed x-rays, I see no acute process, fracture, foreign body or dislocation, agree with radiologist interpretation What testing was considered but not performed or refused? (CT, X-rays, U/S, labs)? Why? @ -None What meds were considered but not given or refused? Why? @ -None Did you discuss the management of the patient with other professionals (professionals i.e. , PA, WIRE MILL OPERATOR, lab, RT, psych nurse, dialysis social worker, molding room supervisor, teacher, corporate development officer, community case manager)? Give summary @ -No Was smoking cessation discussed for >3mins.? @ -No Was critical care preformed (if so, how long)? @ -Yes, 45 minutes, management of sepsis Were there social determinants of health that impacted care today? How? (Homelessness, low income, unemployed, alcoholism, drug addiction, transportation, low edu. Level, literacy, decrease access to med. care, skilled nursing, rehab)? @ -No Was there de-escalation of care discussed even if they declined (Discuss DNR or withdrawal of care, Hospice)? DNR status @ -No What co-morbidities impacted this encounter? (DM, HTN, Smoking, COPD, CAD, Cancer, CVA, ARF, Chemo, Hep., AIDS, mental health diagnosis, sleep apnea, morbid obesity)? @ -Diabetes, hypertension Was patient admitted / discharged? Hospital course, mention meds given and route, prescriptions, significant lab abnormalities, going to OR and other pertinent info. @ -Hospital course I have reviewed the patient's past medical records including triage summary, chief complaint, pertinent medical conditions, medications, surgical history, known medication allergies and previous visits to the emergency department. Patient is a 54-year-old gentleman past medical history diabetes, bilateral chronic lower extremity wounds, CAD, CHF presenting for fever and generalized weakness. Initial evaluation showed ill-appearing but nontoxic-appearing 84-year-old male in no acute distress. His shirt is damp with sweat. Exam is limited by body habitus however lungs are clear to auscultation bilaterally, decreased excursion secondary to body habitus, abdomen soft and nontender. Patient was rolled to his side backside was examined without evidence of sores or injury. exam performed with RN at bedside, showed no swelling, induration, sores around scrotum. Distal lower extremities were covered by clean dry bandages, removed, mild erythema throughout distal bilateral extremities with tenderness throughout without gross deformity or evidence of injury, 1 small weeping wound on the anterior right lower extremity. 2+ DP pulses palpated bilaterally. Extremities are warm and well-perfused. Patient AOx4. Plan for comprenehsive labs and imaging, including sepsis workup, empiric antibiotic coverage with vancomycin and Rocephin, 1 L fluid bolus at this time, given patient does have history of CHF, will consider full 30 cc/kg bolus of yovana vated lactic, ultrasound of the bilateral lower extremities, CBC, CMP, lactic, magnesium level, troponin, EKG, chest x-ray, TSH, Tylenol, morphine and Zofran. Patient's workup significant for Leukocytosis, US LE negative for DVT. I was notified by RN that patient fell while ambulating from the commode. Fall was witnessed by niece, at bedside. Patient slid from the bed onto his buttocks. He did not hit his head, denies any injury. Patient does state that his left foot feels numb ever since his fall this morning. States the foot was stuck under himself while he was down on the ground. This numbness does not extend into the leg and is limited to the distal plantar and dorsal aspect of the left foot. He has no back pain or midline spinal TTP. No focal neurologic deficits or signs of head trauma. Suspect peripheral compression neuropathy. XR ordered to r/o bony abnormality that could be contributing to nerve compression. As numbness is localized to the foot alone, patient has no other focal neurologic deficits, no back pain or spinal TTP, I do not feel symptoms are 2/2 recent CVA or traumatic spinal cord injury, therefor do not feel imaging CT brain, spine indicated at this point. Additionally, further evaluated abrasion to dorsal aspect left great toe at nail bed, this was irrigated thoroughly and sustained 3 days ago. No TTP, scant surrounding erythema, XR ordered to evaluate for underlying osteomyletitis. Updated patient to plan for admission, he is agreeable with plan. Patient accepted for admission for sepsis. Undiagnosed new problem with uncertain prognosis? @ -Yes, sepsis due to cellulitis Drug Therapy requiring intensive monitoring for toxicity (Heparin, Nitro, Insulin, Cardizem)? @ -No Were any procedures done? @ -No Diagnosis/symptom? @ -Sepsis, cellulitis Acute, or Chronic, or Acute on Chronic? @ -Acute on chronic Uncomplicated (without systemic symptoms) or Complicated (systemic symptoms)? @ -Gated Side effects of treatment? @ -No Poses a threat to life or bodily function? How? (Chest pain, [place], [place], pneumonia, PE, COPD, DKA, ARF, appy, cholecystitis, CVA, Diverticulitis, Homicidal, Suicidal, threat to staff... and all critical care pts) @ -Sepsis, - Lab Data Result diagrams: 01/25/24 06:17 01/25/24 06:17 Lab Results 01/23/24 01/23/24 01/23/24 Range/Units 16:44 16:44 16:44 WBC 18.7 H (3.8-10.6) k/uL RBC 4.80 (4.30-5.90) m/uL Hgb 13.9 (13.0-17.5) gm/dL Hct 42.9 (39.0-53.0) % MCV 89.3 (80.0-100.0) fL MCH 29.0 (25.0-35.0) pg MCHC 32.4 (31.0-37.0) g/dL RDW 14.3 (11.5-15.5) % Plt Count 199 (150-450) k/uL MPV 9.1 Neutrophils % (Manual) 84 % Band Neuts % (Manual) 7 % Lymphocytes % (Manual) 2 % Monocytes % (Manual) 7 % Basophils % (Manual) 1 % Metamyelocytes % 1 % Neutrophils # (Manual) 17.00 H (1.3-7.7) k/uL Lymphocytes # (Manual) 0.37 L (1.0-4.8) k/uL Monocytes # (Manual) 1.31 H (0-1.0) k/uL Basophils # (Manual) 0.19 (0-0.2) k/uL Metamyelocytes # (Man) 0.19 H (0) k/uL Nucleated RBCs 0 (0-0) /100 WBC Manual Slide Review Performed RBC Morphology Normal PT 12.0 (10.0-12.5) sec INR 1.1 (<1.2) APTT 26.2 (22.0-30.0) sec Sodium 131 L (137-145) mmol/L Potassium 3.6 (3.5-5.1) mmol/L Chloride 103 (98-107) mmol/L Carbon Dioxide 22 (22-30) mmol/L Anion Gap 6 mmol/L BUN 15 (9-20) mg/dL Creatinine 1.98 H (0.66-1.25) mg/dL Est GFR (CKD-EPI)AfAm 43 (>60 ml/min/1.73 sqM) Est GFR (CKD-EPI)NonAf 37 (>60 ml/min/1.73 sqM) Glucose 178 H (74-99) mg/dL Lactic Ac Sepsis Rflx Plasma Lactic Acid Kannan (0.7-2.0) mmol/L Calcium 8.3 L (8.4-10.2) mg/dL Ionized Calcium Ramiro 4.8 (4.5-5.3) mg/dL Magnesium 1.8 (1.6-2.3) mg/dL Total Bilirubin 1.9 H (0.2-1.3) mg/dL AST 66 H (17-59) U/L ALT 19 (4-49) U/L Alkaline Phosphatase 75 (38-126) U/L Troponin I (0.000-0.034) ng/mL NT-Pro-B Natriuret Pep 59618 pg/mL Total Protein 5.6 L (6.3-8.2) g/dL Albumin 2.6 L (3.5-5.0) g/dL TSH 2.880 (0.465-4.680) mIU/L Urine Color Urine Appearance (Clear) Urine pH (5.0-8.0) Ur Specific [place] (1.001-1.035) Urine Protein (Negative) Urine Glucose (UA) (Negative) Urine Ketones (Negative) Urine Blood (Negative) Urine Nitrite (Negative) Urine Bilirubin (Negative) Urine Urobilinogen (<2.0) mg/dL Ur Leukocyte Esterase (Negative) Urine RBC (0-5) /hpf Urine WBC (0-5) /hpf Ur Squamous Epith Cells (0-4) /hpf Amorphous Sediment (None) /hpf Urine Bacteria (None) /hpf Hyaline Casts (0-2) /lpf Urine Mucus (None) /hpf Influenza Type A RNA (Not Detectd) Influenza Type B (PCR) (Not Detectd) 01/23/24 01/23/24 01/23/24 Range/Units 16:44 16:44 16:44 WBC (3.8-10.6) k/uL RBC (4.30-5.90) m/uL Hgb (13.0-17.5) gm/dL Hct (39.0-53.0) % MCV (80.0-100.0) fL MCH (25.0-35.0) pg MCHC (31.0-37.0) g/dL RDW (11.5-15.5) % Plt Count (150-450) k/uL MPV Neutrophils % (Manual) % Band Neuts % (Manual) % Lymphocytes % (Manual) % Monocytes % (Manual) % Basophils % (Manual) % Metamyelocytes % % Neutrophils # (Manual) (1.3-7.7) k/uL Lymphocytes # (Manual) (1.0-4.8) k/uL Monocytes # (Manual) (0-1.0) k/uL Basophils # (Manual) (0-0.2) k/uL Metamyelocytes # (Man) (0) k/uL Nucleated RBCs (0-0) /100 WBC Manual Slide Review RBC Morphology PT (10.0-12.5) sec INR (<1.2) APTT (22.0-30.0) sec Sodium (137-145) mmol/L Potassium (3.5-5.1) mmol/L Chloride (98-107) mmol/L Carbon Dioxide (22-30) mmol/L Anion Gap mmol/L BUN (9-20) mg/dL Creatinine (0.66-1.25) mg/dL Est GFR (CKD-EPI)AfAm (>60 ml/min/1.73 sqM) Est GFR (CKD-EPI)NonAf (>60 ml/min/1.73 sqM) Glucose (74-99) mg/dL Lactic Ac Sepsis Rflx Plasma Lactic Acid Kannan 3.5 H* (0.7-2.0) mmol/L Calcium (8.4-10.2) mg/dL Ionized Calcium Ramiro (4.5-5.3) mg/dL Magnesium (1.6-2.3) mg/dL Total Bilirubin (0.2-1.3) mg/dL AST (17-59) U/L ALT (4-49) U/L Alkaline Phosphatase (38-126) U/L Troponin I 0.017 (0.000-0.034) ng/mL NT-Pro-B Natriuret Pep pg/mL Total Protein (6.3-8.2) g/dL Albumin (3.5-5.0) g/dL TSH (0.465-4.680) mIU/L Urine Color Yellow Urine Appearance Cloudy (Clear) Urine pH 6.5 (5.0-8.0) Ur Specific [place] 1.031 (1.001-1.035) Urine Protein 3+ H (Negative) Urine Glucose (UA) 4+ H (Negative) Urine Ketones Negative (Negative) Urine Blood Moderate H (Negative) Urine Nitrite Negative (Negative) Urine Bilirubin Negative (Negative) Urine Urobilinogen <2.0 (<2.0) mg/dL Ur Leukocyte Esterase Negative (Negative) Urine RBC 5 (0-5) /hpf Urine WBC 17 H (0-5) /hpf Ur Squamous Epith Cells 4 (0-4) /hpf Amorphous Sediment Occasional H (None) /hpf Urine Bacteria Many H (None) /hpf Hyaline Casts 97 H (0-2) /lpf Urine Mucus Few H (None) /hpf Influenza Type A RNA (Not Detectd) Influenza Type B (PCR) (Not Detectd) 01/23/24 01/23/24 01/23/24 Range/Units 16:44 17:57 20:32 WBC (3.8-10.6) k/uL RBC (4.30-5.90) m/uL Hgb (13.0-17.5) gm/dL Hct (39.0-53.0) % MCV (80.0-100.0) fL MCH (25.0-35.0) pg MCHC (31.0-37.0) g/dL RDW (11.5-15.5) % Plt Count (150-450) k/uL MPV Neutrophils % (Manual) % Band Neuts % (Manual) % Lymphocytes % (Manual) % Monocytes % (Manual) % Basophils % (Manual) % Metamyelocytes % % Neutrophils # (Manual) (1.3-7.7) k/uL Lymphocytes # (Manual) (1.0-4.8) k/uL Monocytes # (Manual) (0-1.0) k/uL Basophils # (Manual) (0-0.2) k/uL Metamyelocytes # (Man) (0) k/uL Nucleated RBCs (0-0) /100 WBC Manual Slide Review RBC Morphology PT (10.0-12.5) sec INR (<1.2) APTT (22.0-30.0) sec Sodium (137-145) mmol/L Potassium (3.5-5.1) mmol/L Chloride (98-107) mmol/L Carbon Dioxide (22-30) mmol/L Anion Gap mmol/L BUN (9-20) mg/dL Creatinine (0.66-1.25) mg/dL Est GFR (CKD-EPI)AfAm (>60 ml/min/1.73 sqM) Est GFR (CKD-EPI)NonAf (>60 ml/min/1.73 sqM) Glucose (74-99) mg/dL Lactic Ac Sepsis Rflx Y Plasma Lactic Acid Kannan 3.8 H* (0.7-2.0) mmol/L Calcium (8.4-10.2) mg/dL Ionized Calcium Ramiro (4.5-5.3) mg/dL Magnesium (1.6-2.3) mg/dL Total Bilirubin (0.2-1.3) mg/dL AST (17-59) U/L ALT (4-49) U/L Alkaline Phosphatase (38-126) U/L Troponin I (0.000-0.034) ng/mL NT-Pro-B Natriuret Pep pg/mL Total Protein (6.3-8.2) g/dL Albumin (3.5-5.0) g/dL TSH (0.465-4.680) mIU/L Urine Color Urine Appearance (Clear) Urine pH (5.0-8.0) Ur Specific [place] (1.001-1.035) Urine Protein (Negative) Urine Glucose (UA) (Negative) Urine Ketones (Negative) Urine Blood (Negative) Urine Nitrite (Negative) Urine Bilirubin (Negative) Urine Urobilinogen (<2.0) mg/dL Ur Leukocyte Esterase (Negative) Urine RBC (0-5) /hpf Urine WBC (0-5) /hpf Ur Squamous Epith Cells (0-4) /hpf Amorphous Sediment (None) /hpf Urine Bacteria (None) /hpf Hyaline Casts (0-2) /lpf Urine Mucus (None) /hpf Influenza Type A RNA Not Detected (Not Detectd) Influenza Type B (PCR) Not Detected (Not Detectd) Disposition Clinical Impression: Sepsis, Sepsis due to cellulitis Disposition: ADMITTED IP TO THIS HOSP Condition: Fair
[2024-01-23] MEDS: ACETAMINOPHEN TAB 500 MG TAB PO STA (16:37)
[2024-01-23] MEDS: ONDANSETRON 4 MG/2 ML VIAL IVP STA (16:37)
[2024-01-23] MEDS: MORPHINE SULFATE 4 MG/ML SYRINGE IV STA (16:37)
[2024-01-23] MEDS: SODIUM CHLORIDE 0.9% 1,000 ML IV STA (16:43)
[2024-01-23 17:40] LABS: HCT 42.9 % (39.0-53.0); HGB 13.9 gm/dL (13.0-17.5); MCHC 32.4 g/dL (31.0-37.0); MCV 89.3 fL (80.0-100.0); Mean Platelet Volume 9.1; Platelet Count 199 k/uL (150-450); RDW 14.3 % (11.5-15.5); WBC 18.7 k/uL (3.8-10.6)
--- NOTE | 2024-01-23 17:43 | XR ---
EXAMINATION TYPE: XR chest 2V DATE OF EXAM: 01/23/2024 COMPARISON: 11/11/2023 HISTORY: Shortness of breath TECHNIQUE: Frontal and lateral views of the chest are obtained. FINDINGS: Scattered senescent parenchymal changes noted. Hyperinflation compatible with COPD. No evidence for infiltrate. No evidence for atelectasis. Heart size is stable. Mediastinal structures are stable and grossly unremarkable. No evidence for hilar prominence. Degenerative changes dorsal spine. IMPRESSION: 1. No evidence for acute pulmonary disease.
[2024-01-23] MEDS: VANCOMYCIN 2,500 MG in SODIUM CHLORIDE 0.9% 500 ML 500 ML IVPB STA (17:44)
[2024-01-23 17:48] LABS: Ionized Calcium 4.8 mg/dL (4.5-5.3)
[2024-01-23 17:51] LABS: INR 1.1 (<1.2); Partial Thromboplastin Time 26.2 sec (22.0-30.0)
[2024-01-23 17:56] LABS: ALT 19 U/L (4-49); African American GFR (CKD) 43 (>60 ml/min/1.73 sqM); Albumin 2.6 g/dL (3.5-5.0); Anion Gap 6 mmol/L; Blood Urea Nitrogen 15 mg/dL (9-20); Calcium 8.3 mg/dL (8.4-10.2); Carbon Dioxide 22 mmol/L (22-30); Chloride 103 mmol/L (98-107); Glucose 178 mg/dL (74-99); Non-African American GFR(CKD) 37 (>60 ml/min/1.73 sqM); Sodium 131 mmol/L (137-145); Total Bilirubin 1.9 mg/dL (0.2-1.3); Total Protein 5.6 g/dL (6.3-8.2)
[2024-01-23 17:58] LABS: AST 66 U/L (17-59); Magnesium 1.8 mg/dL (1.6-2.3); Potassium 3.6 mmol/L (3.5-5.1)
[2024-01-23 17:59] LABS: Alkaline Phosphatase 75 U/L (38-126)
[2024-01-23 18:12] LABS: Band Neutrophils % 7 %; Basophils # (M) 0.19 k/uL (0-0.2); Lymphocytes # (M) 0.37 k/uL (1.0-4.8); Metamyelocytes # (M) 0.19 k/uL (0); Metamyelocytes % 1 %; Monocytes # (M) 1.31 k/uL (0-1.0); Neutrophils % (M) 84 %; Nucleated Red Blood Cells 0 /100 WBC (0-0); Total Cells Counted 200
[2024-01-23 18:13] LABS: RBC Morphology Normal
[2024-01-23 19:11] LABS: NT-Pro-B-Type Natriuretic Pept 43500 pg/mL
--- NOTE | 2024-01-23 19:18 | US ---
EXAMINATION TYPE: US venous doppler duplex LE BI DATE OF EXAM: 01/23/2024 6:49 PM COMPARISON: NONE CLINICAL INDICATION: Male, 54 years old with history of redness, swelling bilateral LE; Edematous leg s with multiple sores, states h/o dvt in rt leg "years ago", not on thinners, fell in bathroom tonigh t, morbidly obese SIDE PERFORMED: Bilateral TECHNIQUE: The lower extremity deep venous system is examined utilizing real time linear array sonog raquel with graded compression, doppler sonography and color-flow sonography. VESSELS IMAGED: Common Femoral Vein Deep Femoral Vein Greater Saphenous Vein * Femoral Vein Popliteal Vein Small Saphenous Vein * Proximal Calf Veins (* superficial vessels) 360lb patient with edema, in pain with the lightest pressure, unable to do compression Right Leg: Negative for DVT - good color flow and doppler Left Leg: Negative for DVT - good color flow and doppler IMPRESSION: Grayscale, color doppler, spectral doppler imaging performed of the deep veins of the lo wer extremities. There is normal flow, compressibility, vascular waveforms.
[2024-01-23] MEDS ORDERED: NALOXONE 0.4 MG/ML 1 ML VIAL IV PRN (20:45)
[2024-01-23 20:47] LABS: Amorphous Sediment,Urine Occasional /hpf; Appearance,Urine Cloudy (Clear); Bacteria,Urine Many /hpf; Bilirubin,Urine Negative (Negative); Blood,Urine Moderate (Negative); Color,Urine Yellow; Glucose,Urine (UA) 4+ (Negative); Hyaline Casts,Urine 97 /lpf (0-2); Ketones,Urine Negative (Negative); Leukocyte Esterase,Urine Negative (Negative); Mucus,Urine Few /hpf; Nitrite,Urine Negative (Negative); PH, Urine 6.5 (5.0-8.0); Protein,Urine 3+ (Negative); RBC,Urine 5 /hpf (0-5); Specific Gravity,Urine 1.031 (1.001-1.035); Squamous Epithelial Cell,Urine 4 /hpf (0-4); Urobilinogen,Urine <2.0 mg/dL (<2.0); WBC,Urine 17 /hpf (0-5)
[2024-01-23] MEDS: FAMOTIDINE 20 MG TAB PO SCH (21:10)
--- NOTE | 2024-01-23 21:42 | XR ---
EXAMINATION TYPE: XR ankle complete LT DATE OF EXAM: 01/23/2024 COMPARISON: NONE HISTORY: Pain TECHNIQUE: 3 views of the left ankle are submitted for evaluation. FINDINGS: There is no evidence for fracture or dislocation. Ankle mortise is intact. Soft tissues are within normal limits. IMPRESSION: 1. No evidence for acute fracture.
--- NOTE | 2024-01-23 21:47 | XR ---
EXAMINATION TYPE: XR tibia fibula LT DATE OF EXAM: 01/23/2024 CLINICAL HISTORY: pain TECHNIQUE: AP and lateral images of the left tibia and fibula are obtained. COMPARISON: None. FINDINGS: There is no acute fracture/dislocation evident. The joint spaces appear within normal cunningham its. The overlying soft tissue appears unremarkable. IMPRESSION: There is no acute fracture or dislocation seen. ICD 10 NO FRACTURE, INITIAL EVALUATION
--- NOTE | 2024-01-23 21:51 | XR ---
EXAMINATION TYPE: XR foot limited bilateral DATE OF EXAM: 01/23/2024 CLINICAL HISTORY: pain TECHNIQUE: Frontal, lateral and oblique images of the bilateral foot are obtained. COMPARISON: None. FINDINGS: There is no acute fracture/dislocation evident. The joint spaces appear within normal cunningham its. Soft tissue swelling noted dorsally bilaterally. IMPRESSION: There is no acute fracture or dislocation. ICD 10 NO FRACTURE, INITIAL EVALUATION
[2024-01-23] MEDS: SODIUM CHLORIDE 0.9% 1,000 ML IV ONE (21:52)
[2024-01-24 00:07] LABS: Glucose,Whole Blood 169 mg/dL (70-110)
--- NOTE | 2024-01-24 02:58 | P.HPIM ---
History of Present Illness H&P Date: 01/24/24 Chief Complaint: weakness and fall Patient is a 54-year-old male with history of systolic CHF (EF 20-25% on Echo 05/04), obesity, type 2 diabetes with peripheral neuropathy, chronic lower extremity wound, COPD, history of DVT presents to the ER with episode of fall. Patient reports that he has been feeling weak with mild fever and chills since Thursday. During the day, patient attempted to sit on the toilet seat but he missed it and landed on the floor with his hips first with left leg hyperflexed. Patient reports that he was in this position for close to an hour before his niece called EMS. Patient reports mild numbness in left lower leg which is chronic. Reports no calf pain. Patient denies dizziness, loss of consciousness and head injury. Patient had another episode of fall while trying to use commode in the ER where he landed on his buttocks. He denies head injury or loss of consciousness. Patient visits wound clinic once a week for his chronic lower extremity wound since 3 to 4 months. Patient reports multiple previous episodes of sepsis with last episode 2 years ago treated with IV antibiotic in the hospital. Patient denies any headaches, shortness of breath, chest pain, abdominal pain, diarrhea, constipation or urinary issues. Chest x-ray done in the ER shows no evidence of acute pulmonary disease. Venous Doppler ultrasound of the lower extremity bilaterally is negative for DVT Left ankle x-ray shows no evidence of acute fracture. X-ray of the left tibia-fibula shows no acute fracture or dislocation. X-ray of the bilateral foot shows no acute fracture or dislocation. Laboratory evaluation shows WBC 18.7 with neutrophil count 17, PT 12.0, INR 1.1, APTT 26.2, sodium 131, potassium 3.6, chloride 103, bicarb 22, BUN 15, creatini ne 1.98, EGFR 37, glucose 178, lactic acid 2.8, AST 66, BNP 43,500, TSH 2.88, Urinalysis show urine protein 3+, urine glucose 4+, urine blood moderate level, leukocyte esterase negative. Vitals: Tmax 98.2 F, heart rate 71, respiratory rate 16, blood pressure 105/68, oxygen 98% on 3 L nasal cannula. Review of systems: Pertinent positives and negatives as discussed in HPI, a complete review of sy stems was performed and all other systems are negative. Social history: Tobacco: Quit 1 year ago; half pack per day x 25 years Alcohol: None Recreational drugs: None Travel: None Occupation: None Family History: Coronary disease in mother and father Physical examination: Vital signs reviewed General: non toxic, no distress, appears at stated age, normal weight Derm: Generalized erythema, with marked scaling and swelling, and lichenification with weeping erosions and crusting on both lower legs and feet. Mild purulent discharge of right big toe. Area of desquamation on the left calf. Head: atraumatic, normocephalic, symmetric Eyes: EOMI, no lid lag, anicteric sclera, pupils equal round reactive to light ENT: Nose and ears atraumatic Neck: No cervical lymphadenopathy, trachea midline, supple Mouth: no lip lesion, mucus membranes moist Cardiovascular: S1S2 reg, no murmur, diminished dorsalis pedis pulse bilateral, moderate to severe bilateral edema Lungs: CTA bilateral, no rhonchi, no rales, no accessory muscle use Abdominal: soft, nontender to palpation, no guarding Ext: muscle strength 5 out of 5 in all 4 extremities grossly, no gross muscle atrophy, no contractures, Neuro: CN II-XI grossly intact, no gross focal neuro deficits Psych: Alert, oriented, appropriate affect Assessment/Plan: 54-year-old male with history of systolic CHF (EF 20-25% on Echo 05/04), obesity, type 2 diabetes with peripheral neuropathy, chronic lower extremity wound, COPD, history of DVT presents to the ER with episode of fall and generalized weakness. 1. Sepsis secondary to cellulitis Continue with IV vancomycin and Ceftriaxone Follow-up on blood culture Follow-up on urine culture Continue monitoring WBC Fall precautions Lactic acid 2.8 likely due to sepsis Continue monitoring lactic acid Wound-Care consulted 2. Hyponatremia Continue monitoring sodium levels 3. Hyperglycemia, uncontrolled Serum glucose 178 Resume long-acting home insulin Started on sliding scale short acting insulin Continue to monitor serum glucose level *Chronic conditions: Hypertension Hold medications for hypertension DVT prophylaxis: Lovenox 40 mg subcu daily The patient is admitted with an anticipated more than 2 midnight stay for evaluation of sepsis CODE STATUS: Full Discussed with: Patient Anticipated discharge place: Home Past Medical History Past Medical History: Asthma, Coronary Artery Disease (CAD), Heart Failure, COPD, Diabetes Mellitus, Deep Vein Thrombosis (DVT), GERD/Reflux, Hyperlipidemia, Hypertension, Myocardial Infarction (MT), Renal Disease, Sleep Apnea/CPAP/BIPAP, Vascular Disorder Additional Past Medical History / Comment(s): 02/20/16 [place] with cardiac kxitce-Eimp-xx wore life vest for 7 weeks, 2010 DVT RIGHT leg, bilateral lower leg cellulitis, bilateral varicose veins, PVD, NIDDM type II, BERTRAND with CPAP. UTI Mar 2021, cellulitis with open wounds on bilateral lower legs being treated in wound center 2021, H/o covid 2020 Last Myocardial Infarction Date:: 02/20/16 History of Any Multi-Drug Resistant Organisms: MRSA Date of last positivie culture/infection: 2017 MDRO Source:: bilateral legs Past Surgical History: Heart Catheterization With Stent Additional Past Surgical History / Comment(s): circumcision Additional Past Anesthesia/Blood Transfusion Reaction / Comment(s): Pt has never had anesthesia Date of Last Stent Placement:: 02/20/16 Smoking Status: Former smoker - Past Family History Father Family Medical History: Coronary Artery Disease (CAD), Diabetes Mellitus, Eye Disorder Additional Family Medical History / Comment(s): Bradycardia, blind. Father is in his early 70's. Mother Family Medical History: Coronary Artery Disease (CAD), Diabetes Mellitus Additional Family Medical History / Comment(s): Benign brain tumor. Mother is in her early 70's Medications and Allergies Home Medications Medication Instructions Recorded Confirmed Type Atorvastatin [Lipitor] 80 mg PO HS #30 tab 02/27/16 01/23/24 Rx Ipratropium/Albuterol Sulfate 1 puff INHALATION RT-QID 01/12/19 01/23/24 History [Combivent Respimat Inhaler] metFORMIN HCL [Glucophage] 1,000 mg PO BID 01/12/19 01/23/24 History Omeprazole 20 mg PO DAILY 03/14/19 01/23/24 History Aspirin EC [Ecotrin Low Dose] 81 mg PO DAILY 10/17/20 01/23/24 History Fluticasone Propion/Salmeterol 1 puff INHALATION RT-BID 01/15/22 01/23/24 History [Wixela 250-50 Inhub] Insulin Glargine,Hum.rec.anlog 40 unit SQ DAILY 01/15/22 01/23/24 History [Lantus Solostar Pen] Multivitamins, Thera [Multivitamin 1 tab PO DAILY 01/15/22 01/23/24 History (formulary)] carvediloL 37.5 mg PO BID-W/MEALS 01/15/22 01/23/24 History Empagliflozin [Jardiance] 25 mg PO DAILY 05/02/23 01/23/24 History Bumetanide [Bumex] 1 mg PO DAILY 01/23/24 01/23/24 History Ergocalciferol (Vitamin D2) 1,250 mcg PO Q7D 01/23/24 01/23/24 History [Drisdol (50,000 Iu)] Losartan Potassium [Cozaar] 100 mg PO DAILY 01/23/24 01/23/24 History Sodium Chloride Irrig Solution 1 applic IRRIGATION DIRECTED PRN 01/23/24 History [Sodium Chloride Irrig] hydrALAZINE HCL [Apresoline] 25 mg PO TID 01/23/24 01/23/24 History Allergies Allergy/AdvReac Type Severity Reaction Status Date / Time tetracycline Allergy Rash/Hives Verified 01/23/24 18:14 Physical Exam Vitals: Vital Signs Temp Pulse Pulse Resp BP BP Pulse Ox 01/24/24 00:00 98.2 F 71 16 105/68 98 01/23/24 22:47 98 F 70 20 92/61 95 01/23/24 22:05 97.9 F 94 16 100/79 94 L 01/23/24 21:06 94 L 01/23/24 21:05 97.9 F 18 103/72 88 L 01/23/24 20:33 88 16 105/71 92 L 01/23/24 19:45 104 H 18 117/82 93 L 01/23/24 19:30 99.5 F 86 18 122/78 01/23/24 18:00 101.0 F H 97 22 118/99 92 L 01/23/24 15:52 102.3 F H 100 20 116/99 90 L Intake and Output 01/23/24 01/23/24 01/24/24 14:59 22:59 06:59 Intake Total 2240 Balance 2240 Intake: Intake, IV Titration 2000 Amount Sodium Chloride 0.9% 1, 1999 000 ml @ 999 mls/hr IV . Q1H1M ONE Rx#:[id number] Oral 240 Other: Weight 163.293 kg Results CBC & Chem 7: 01/23/24 16:44 01/23/24 16:44 Labs: Abnormal Lab Results - Last 24 Hours (Table) 01/23/24 01/23/24 01/23/24 Range/Units 16:44 16:44 16:44 WBC 18.7 H (3.8-10.6) k/uL Neutrophils # (Manual) 17.00 H (1.3-7.7) k/uL Lymphocytes # (Manual) 0.37 L (1.0-4.8) k/uL Monocytes # (Manual) 1.31 H (0-1.0) k/uL Metamyelocytes # (Man) 0.19 H (0) k/uL Sodium 131 L (137-145) mmol/L Creatinine 1.98 H (0.66-1.25) mg/dL Glucose 178 H (74-99) mg/dL POC Glucose (mg/dL) (70-110) mg/dL Plasma Lactic Acid Kannan 3.5 H* (0.7-2.0) mmol/L Calcium 8.3 L (8.4-10.2) mg/dL Total Bilirubin 1.9 H (0.2-1.3) mg/dL AST 66 H (17-59) U/L Total Protein 5.6 L (6.3-8.2) g/dL Albumin 2.6 L (3.5-5.0) g/dL Urine Protein (Negative) Urine Glucose (UA) (Negative) Urine Blood (Negative) Urine WBC (0-5) /hpf Amorphous Sediment (None) /hpf Urine Bacteria (None) /hpf Hyaline Casts (0-2) /lpf Urine Mucus (None) /hpf 01/23/24 01/23/24 01/24/24 Range/Units 16:44 20:32 00:06 WBC (3.8-10.6) k/uL Neutrophils # (Manual) (1.3-7.7) k/uL Lymphocytes # (Manual) (1.0-4.8) k/uL Monocytes # (Manual) (0-1.0) k/uL Metamyelocytes # (Man) (0) k/uL Sodium (137-145) mmol/L Creatinine (0.66-1.25) mg/dL Glucose (74-99) mg/dL POC Glucose (mg/dL) 169 H (70-110) mg/dL Plasma Lactic Acid Kannan 3.8 H* (0.7-2.0) mmol/L Calcium (8.4-10.2) mg/dL Total Bilirubin (0.2-1.3) mg/dL AST (17-59) U/L Total Protein (6.3-8.2) g/dL Albumin (3.5-5.0) g/dL Urine Protein 3+ H (Negative) Urine Glucose (UA) 4+ H (Negative) Urine Blood Moderate H (Negative) Urine WBC 17 H (0-5) /hpf Amorphous Sediment Occasional H (None) /hpf Urine Bacteria Many H (None) /hpf Hyaline Casts 97 H (0-2) /lpf Urine Mucus Few H (None) /hpf 01/24/24 Range/Units 00:12 WBC (3.8-10.6) k/uL Neutrophils # (Manual) (1.3-7.7) k/uL Lymphocytes # (Manual) (1.0-4.8) k/uL Monocytes # (Manual) (0-1.0) k/uL Metamyelocytes # (Man) (0) k/uL Sodium (137-145) mmol/L Creatinine (0.66-1.25) mg/dL Glucose (74-99) mg/dL POC Glucose (mg/dL) (70-110) mg/dL Plasma Lactic Acid Kannan 2.8 H* (0.7-2.0) mmol/L Calcium (8.4-10.2) mg/dL Total Bilirubin (0.2-1.3) mg/dL AST (17-59) U/L Total Protein (6.3-8.2) g/dL Albumin (3.5-5.0) g/dL Urine Protein (Negative) Urine Glucose (UA) (Negative) Urine Blood (Negative) Urine WBC (0-5) /hpf Amorphous Sediment (None) /hpf Urine Bacteria (None) /hpf Hyaline Casts (0-2) /lpf Urine Mucus (None) /hpf Thrombosis Risk Factor Assmnt - Choose All That Apply Any of the Below Risk Factors Present?: Yes Each Factor Represents 1 point: Abnormal pulmonary function (COPD), Age 41-60 years, Obesity (BMI >25), Sepsis (< 1month) Other Risk Factors: Yes Each Risk Factor Represents 3 Points: History of DVT/PE Other congenital or acquired thrombophilia - If yes, enter type in comment: No Thrombosis Risk Factor Assessment Total Risk Factor Score: 7 Thrombosis Risk Factor Assessment Level: High Risk
[2024-01-24] MEDS ORDERED: ENOXAPARIN 40 MG/0.4 ML SYRINGE SQ STA (03:09)
[2024-01-24] MEDS: ENOXAPARIN 40 MG/0.4 ML SYRINGE SQ STA (04:04)
[2024-01-24 04:46] LABS: Basophils % (A) 0 %; Eosinophils % (A) 0 %; HCT 43.1 % (39.0-53.0); HGB 13.4 gm/dL (13.0-17.5); Hypochromasia Slight; Lymphocytes # (A) 0.5 k/uL (1.0-4.8); Lymphocytes % (A) 3 %; MCH 28.6 pg (25.0-35.0); MCHC 31.1 g/dL (31.0-37.0); Mean Platelet Volume 8.8; Monocytes # (A) 0.5 k/uL (0-1.0); Monocytes % (A) 4 %; Neutrophils # (A) 13.3 k/uL (1.3-7.7); Neutrophils % (A) 92 %; Platelet Count 200 k/uL (150-450); RBC 4.68 m/uL (4.30-5.90); RDW 14.5 % (11.5-15.5); WBC 14.4 k/uL (3.8-10.6)
[2024-01-24 05:02] LABS: ALT 32 U/L (4-49); AST 156 U/L (17-59); African American GFR (CKD) 28 (>60 ml/min/1.73 sqM); Albumin 2.4 g/dL (3.5-5.0); Alkaline Phosphatase 74 U/L (38-126); Anion Gap 5 mmol/L; Blood Urea Nitrogen 23 mg/dL (9-20); Calcium 7.8 mg/dL (8.4-10.2); Carbon Dioxide 26 mmol/L (22-30); Chloride 102 mmol/L (98-107); Glucose 150 mg/dL (74-99); Non-African American GFR(CKD) 24 (>60 ml/min/1.73 sqM); Potassium 4.2 mmol/L (3.5-5.1); Sodium 133 mmol/L (137-145); Total Bilirubin 1.1 mg/dL (0.2-1.3); Total Protein 5.3 g/dL (6.3-8.2)
[2024-01-24 06:03] LABS: Glucose,Whole Blood 151 mg/dL (70-110)
[2024-01-24] MEDS: INSULIN ASPART (NovoLOG) 100 UNIT/ML VIAL SQ SCH (06:20)
[2024-01-24] MEDS: INSULIN DETEMIR (LEVEMIR) 100 UNIT/ML SYR SQ SCH (06:20)
[2024-01-24] MEDS: ENOXAPARIN 30 MG/0.3 ML SYRINGE SQ SCH (07:59)
[2024-01-24] MEDS: ACETAMINOPHEN TAB 325 MG TAB PO PRN (08:04)
[2024-01-24] MEDS ORDERED: ENOXAPARIN 40 MG/0.4 ML SYRINGE SQ SCH (09:00)
[2024-01-24 10:16] LABS: Vancomycin,Random 15.8 ug/mL
--- NOTE | 2024-01-24 11:16 | P.NPCON ---
History of Present Illness - Reason for Consult acute renal failure, chronic renal failure - History of Present Illness Reason for consultation: Acute kidney injury on chronic kidney disease History of present is: Patient is a 54-year-old male seen renal consultation for acute kidney injury on chronic kidney disease. Patient has chronic kidney disease stage IIIa with baseline creatinine 1.3-1.4 secondary to diabetic kidney disease. Creatinine on admission was 1.98 and is up to 2.86 today. Patient came to the hospital after he was found down by his knees. Patient denies losing consciousness. Patient states he was down for about an hour before EMS got there. Patient does have longstanding history of diabetes. Also has history of coronary disease with stent placement in the past. Patient also has chronic lower extremity wounds for which she follows at wound care. Patient was taking antihypertensives at home including losartan. Additionally he was also on Bumex and Jardiance. Blood pressure noted to be as low as 92/61 this admission. Patient did receive 2 L of normal saline bolus in the ER. Oral intake is fair. Denies vomiting or diarrhea. Denies regular use of nonsteroidals. Denies gross hematuria or dysuria. Imaging showed no evidence of fracture. No evidence of fluid overload on chest x-ray. Vital signs are stable. General: No acute distress. HEENT: Head exam is unremarkable. On nasal cannula. LUNGS: No audible rhonchi or wheezes. HEART: Rate and Rhythm are regular. ABDOMEN: Obese, nontender. EXTREMITITES: Chronic changes noted. No drainage. Trace edema. Past Medical History Past Medical History: Asthma, Coronary Artery Disease (CAD), Heart Failure, COPD, Diabetes Mellitus, Deep Vein Thrombosis (DVT), GERD/Reflux, H yperlipidemia, Hypertension, Myocardial Infarction (NM), Renal Disease, Sleep Apnea/CPAP/BIPAP, Vascular Disorder Additional Past Medical History / Comment(s): 02/20/16 [place] with cardiac lbcyel-Slwa-an wore life vest for 7 weeks, 2010 DVT RIGHT leg, bilateral lower leg cellulitis, bilateral varicose veins, PVD, NIDDM type II, BERTRAND with CPAP. UTI Mar 2021, cellulitis with open wounds on bilateral lower legs being treated in wound center 2021, H/o covid 2020 Last Myocardial Infarction Date:: 02/20/16 History of Any Multi-Drug Resistant Organisms: MRSA Date of last positivie culture/infection: 2018 MDRO Source:: bilateral legs Past Surgical History: Heart Catheterization With Stent Additional Past Surgical History / Comment(s): circumcision Additional Past Anesthesia/Blood Transfusion Reaction / Comment(s): Pt has never had anesthesia Date of Last Stent Placement:: 02/20/16 Smoking Status: Former smoker - Past Family History Father Family Medical History: Coronary Artery Disease (CAD), Diabetes Mellitus, Eye Disorder Additional Family Medical History / Comment(s): Bradycardia, blind. Father is in his early 70's. Mother Family Medical History: Coronary Artery Disease (CAD), Diabetes Mellitus Additional Family Medical History / Comment(s): Benign brain tumor. Mother is in her early 70's Medications and Allergies Home Medications Medication Instructions Recorded Confirmed Type Atorvastatin [Lipitor] 80 mg PO HS #30 tab 02/27/16 01/23/24 Rx Ipratropium/Albuterol Sulfate 1 puff INHALATION RT-QID 01/12/19 01/23/24 History [Combivent Respimat Inhaler] metFORMIN HCL [Glucophage] 1,000 mg PO BID 01/12/19 01/23/24 History Omeprazole 20 mg PO DAILY 03/14/19 01/23/24 History Aspirin EC [Ecotrin Low Dose] 81 mg PO DAILY 10/17/20 01/23/24 History Fluticasone Propion/Salmeterol 1 puff INHALATION RT-BID 01/15/22 01/23/24 History [Wixela 250-50 Inhub] Insulin Glargine,Hum.rec.anlog 40 unit SQ DAILY 01/15/22 01/23/24 History [Lantus Solostar Pen] Multivitamins, Thera [Multivitamin 1 tab PO DAILY 01/15/22 01/23/24 History (formulary)] carvediloL 37.5 mg PO BID-W/MEALS 01/15/22 01/23/24 History Empagliflozin [Jardiance] 25 mg PO DAILY 05/02/23 01/23/24 History Bumetanide [Bumex] 1 mg PO DAILY 01/23/24 01/23/24 History Ergocalciferol (Vitamin D2) 1,250 mcg PO Q7D 01/23/24 01/23/24 History [Drisdol (50,000 Iu)] Losartan Potassium [Cozaar] 100 mg PO DAILY 01/23/24 01/23/24 History Sodium Chloride Irrig Solution 1 applic IRRIGATION DIRECTED PRN 01/23/24 01/23/24 History [Sodium Chloride Irrig] hydrALAZINE HCL [Apresoline] 25 mg PO TID 01/23/24 01/23/24 History Allergies Allergy/AdvReac Type Severity Reaction Status Date / Time tetracycline Allergy Rash/Hives Verified 01/23/24 18:14 Physical Exam Vitals: Vital Signs Temp Pulse Pulse Resp BP BP Pulse Ox 01/24/24 07:49 100 F H 89 22 146/71 96 01/24/24 04:00 98.3 F 82 18 110/70 98 01/24/24 00:00 98.2 F 71 16 105/68 98 01/23/24 22:47 98 F 70 20 92/61 95 01/23/24 22:05 97.9 F 94 16 100/79 94 L 01/23/24 21:06 94 L 01/23/24 21:05 97.9 F 18 103/72 88 L 01/23/24 20:33 88 16 105/71 92 L 01/23/24 19:45 104 H 18 117/82 93 L 01/23/24 19:30 99.5 F 86 18 122/78 01/23/24 18:00 101.0 F H 97 22 118/99 92 L 01/23/24 15:52 102.3 F H 100 20 116/99 90 L Intake and Output 01/23/24 01/24/24 01/24/24 22:59 06:59 14:59 Intake Total 2240 260 Balance 2240 260 Intake: IV 20 Invasive Line 1 10 Invasive Line 2 10 Intake, IV Titration 2000 Amount Sodium Chloride 0.9% 1, 2000 000 ml @ 999 mls/hr IV . Q1H1M ONE Rx#:[id number] Oral 240 240 Other: Voiding Method Bedside Commode Weight 163.293 kg 128.5 kg Results - Lab Results Most recent lab results Calcium 7.8 mg/dL (8.4-10.2) L 01/24/24 04:11 Magnesium 1.8 mg/dL (1.6-2.3) 01/23/24 16:44 01/24/24 04:11 01/24/24 04:11 Assessment and Plan Plan: Assessment: 1. Acute kidney injury secondary to ATN secondary to hypotension, rhabdomyolysis. Creatinine 2.86 today. 2. Chronic kidney disease stage IIIa with baseline creatinine 1.3-1.5 secondary to diabetic kidney disease. 3. Rhabdomyolysis secondary to fall and immobility. CK level 8978. 4. Diabetes mellitus. 5. Chronic systolic CHF with ejection fraction of 20 to 25%. 6. Coronary disease with prior stent placement. 7. Lower extremity wounds. Plan: Start normal saline at 75 cc an hour for maintenance fluids. Continue to hold diuretics for now. Check renal ultrasound. Encouraged oral intake. Avoid nephrotoxins. Continue to monitor renal function and urine output. Thank you for the consultation. I will continue to follow the patient with you during his hospital stay.
[2024-01-24] MEDS ORDERED: ALBUTEROL NEBULIZED 2.5 MG/3 ML INHALATION PRN (11:43)
[2024-01-24 11:44] LABS: Glucose,Whole Blood 153 mg/dL (70-110)
[2024-01-24] MEDS: carvediloL 12.5 MG TAB PO SCH (11:54)
[2024-01-24] MEDS: ASPIRIN 81 MG PO STA (11:54)
[2024-01-24] MEDS: SODIUM CHLORIDE 0.9% 1,000 ML IV SCH ×2 (11:54)
[2024-01-24] MEDS ORDERED: VANCOMYCIN 2,250 MG in SODIUM CHLORIDE 0.9% 500 ML 500 ML IVPB SCH (12:00)
[2024-01-24] MEDS: IPRATROPIUM-ALBUTEROL 3 ML NEB INHALATION SCH (12:14)
[2024-01-24 12:21] LABS: ABG HCO3 27 mmol/L (21-25); ABG Oxygen Saturation 97.6 % (94-97); ABG PCO2 50 mmHg (35-45); ABG PH 7.34 (7.35-7.45); ABG PO2 90 mmHg (83-108); ABG TCO2 28 mmol/L (19-24); Allen Test Performed? Yes
--- NOTE | 2024-01-24 13:57 | P.PN ---
Progress Note - Text Progress Note Date: 01/24/24 (delayed charting seen t 1030) Hospitalist Interval Note 54-year-old male with history of insulin-dependent diabetes type 2, HFrEF with EF 20 to 25%, COPD, HTN, HLD, chronic wound being followed at wound care center, and multiple other comorbid conditions who presented to the emergency department with complaints of fall, fever, and chills. Had recurrent falls in the ER. Patient seen and examined at bedside. Lethargic and falls asleep quickly when I enter the room. C/o numbness in left foot and pain in ankle. States that right foot was very red yesterday, had fevers on thursday night at home. No longer has CPAP at home. Follow with wound care and all skin was intact at last appointment unsure how skin on left leg removed, no blister. Vital signs reviewed General: Non toxic, no distress, appears at stated age Derm: Bilateral venous stasis changes with skin thickening and several healing less than quarter sized ulcerations bilateral skin, no open skin lesions right, left lateral posterior calf with avulsion injury approximately 8 x 3 inches in diameter, erythema right foot with avulsion of the nail of great toe Cardiovascular: S1S2 reg, no murmur, positive posterior tibial pulse bilateral, Lungs: CTA bilateral, no rhonchi, no rales, no accessory muscle use Abdominal: Soft, nontender to palpation, no guarding, no appreciable organomegaly Ext: No gross muscle atrophy, no edema, no contractures + dopplerable pulses left DP and PT Neuro: CN II-XI grossly intact, diminished sensation left foot, intact left calf, muscle strain 3 out of 5 in bilateral right and left lower extremities Psych: Alert, oriented, appropriate affect Labs: 01/23 labs reviewed include CBC CMP, lactic acid, and BNP which are remarkable for white blood cell count 14.4 (down from 18.7), BUN 23, creatinine 2.86 (up from 1.98 with a baseline creatinine of 1.6 on 01/13/2024), BNP 43,500 with highest prior documented BNP 9260. Assessment/Plan: Sepsis secondary to cellulitis, chronic lower extremity wounds -Rocephin 2 g IV every 24 hours -Vancomycin with pharmacy to dose based on trough, monitor renal function for signs of toxicity - 0.9 NS at 75 cc/hr given CHF hx - wounds do note appear infection Acute kidney injury on chronic kidney disease stage IIIa with baseline creatinine 1.4-1.6 -Hold nephrotoxic medications including Cozaar and Jardiance -Check renal ultrasound -Check postvoid residuals -Check Vanco level -Nephrology consultation Large skin avulsion injury left leg -Mupirocin ointment -Cover with nonadherent dressing -Await wound care Recs Left foot numbness since fall - consult neuro - check head CT-- no acute process - ASA 81 mg daily and liptior 80 mg at night resumed -? need for EMG - + strong DP and PT pulse on left - PT/OT Rhabdo - 0.9 NS at 75 cc/hr due to hx of HFrEF - repeat CPK at 1800 and in AM HFrEF with EF 20-25% without exacerbation HTN HLD -Most recent echocardiogram from 05/04 with ejection fraction 20 to 25% -Home medications at baseline include Cozaar 100 mg daily, Coreg 37.5 mg twice daily, Jardiance 25 mg daily -At baseline patient is not on mineralocorticoid therapy -Given extent of acute kidney injury will hold Jardiance and Cozaar -Continue Coreg 37.5 mg p.o. twice daily -Atorvastatin 40 mg daily -Hydralazine 25 mg p.o. 3 times daily Poorly controlled diabetes mellitus type 2, insulin-dependent with hyperglycemia on arrival If an A1c 01/13/2024 9.6 -Hold metformin given CHAVO -Levemir 40 units at night, sliding scale insulin, follow blood sugars, check A1c COPD without exacerbation -DuoNebs 4 times daily and replacement of home Combivent inhaler -Add as needed albuterol -Transition home we will Baldo inhaler to Symbicort inhaler Repeated falls - Pt/OT fall precuations Chronic conditions: Prior DVT GERD History of BERTRAND and CPAP use Peripheral vascular disease This is an update note for patient , for full note on H and P 01/24/24 There is no charge associated with this note.
--- NOTE | 2024-01-24 14:40 | CT ---
EXAMINATION TYPE: CT brain wo con CT DLP: 1093.4 mGycm, Automated exposure control for dose reduction was used. DATE OF EXAM: 01/24/2024 2:05 PM COMPARISON: None. CLINICAL INDICATION:Male, 54 years old with history of left leg numbness, WEAKNESS TECHNIQUE: Brain: Axial CT images of the brain were obtained with coronal and sagittal reformats created and rev iewed. Contrast used: None. Oral contrast used: None. FINDINGS: Brain: Extra-axial spaces: No abnormal extra-axial fluid collections. Ventricular system: Within normal limits Cerebral parenchyma: CSF cleft extending into the right frontal lobe No acute intraparenchymal hemorr glory or mass effect. The matt-white junction is well differentiated. Cerebellum: Unremarkable. Mass effect: No evidence of midline shift. Intracranial vasculature: unremarkable Soft tissues: Normal. Calvarium/osseous structures: No depressed skull fracture. Paranasal sinuses and mastoid air cells: Mild scattered paranasal sinus disease. Visualized orbits: Orbital contents are intact. IMPRESSION: 1. No acute intracranial process. 2. CSF cleft extending from the right lateral frontal lobe possibly representing prior CVA
--- NOTE | 2024-01-24 14:52 | P.CNNES ---
History of Present Illness Consult date: 01/24/24 Reason for Consult: Left foot numbness History of Present Illness: The patient is a 54-year-old male who was seen in neurologic consultation on 2023, in collaboration with Magaly Noel, via teleneurology. History is obtained from the patient as well as review of the chart. The patient reports that he was trying to her bathroom yesterday he says he got into the bathroom and attempted to sit down on the commode. He says he missed the toilet and ended up falling on the bathroom floor. When he fell, the patient was positioned in such a way that his left foot was under his buttocks and he was unable to move it. The patient was unable to get up because of the position of his legs. He apparently was on the floor for at least 1 hour. The patient denies hitting his head. There is no loss of consciousness or syncope. Since the fall, patient reports that he is unable to feel any sensation in his left foot and is unable to move it. Prior to this fall, the patient reports that he did have some mild sensory deficits. He denies neuropathy. He does report problems with blood flow to his lower extremities. The patient denies difficulty with balance, headache, speech and vision changes. Patient denies any symptoms involving his upper extremities. Workup in the emergency department revealed a markedly elevated CK of 8978. White blood cell count is elevated to 18.47, it is down to 14, today. Venous Doppler negative for DVT. The patient has a past medical history of diabetes mellitus, chronic kidney disease, DVT, chronic wounds involving the bilateral lower extremities, obesity, lower extremity vascular disease, COPD, hypertension, hyperlipidemia, coronary artery disease. Past Medical History Past Medical History: Asthma, Coronary Artery Disease (CAD), Heart Failure, COPD, Diabetes Mellitus, Deep Vein Thrombosis (DVT), GERD/Reflux, Hyperlipidemia, Hypertension, Myocardial Infarction ([place]), Renal Disease, Sleep Apnea/CPAP/BIPAP, Vascular Disorder Additional Past Medical History / Comment(s): 02/20/16 [place] with cardiac cxipxy-Lkiu-gf wore life vest for 7 weeks, 2010 DVT RIGHT leg, bilateral lower leg cellulitis, bilateral varicose veins, PVD, NIDDM type II, BERTRAND with CPAP. UTI Mar 2021, cellulitis with open wounds on bilateral lower legs being treated in wound center 2021, H/o covid 2020 Last Myocardial Infarction Date:: 02/20/16 History of Any Multi-Drug Resistant Organisms: MRSA Date of last positivie culture/infection: 2017 MDRO Source:: bilateral legs Past Surgical History: Heart Catheterization With Stent Additional Past Surgical History / Comment(s): circumcision Additional Past Anesthesia/Blood Transfusion Reaction / Comment(s): Pt has never had anesthesia Date of Last Stent Placement:: 02/20/16 Smoking Status: Former smoker - Past Family History Father Family Medical History: Coronary Artery Disease (CAD), Diabetes Mellitus, Eye Disorder Additional Family Medical History / Comment(s): Bradycardia, blind. Father is in his early 70's. Mother Family Medical History: Coronary Artery Disease (CAD), Diabetes Mellitus Additional Family Medical History / Comment(s): Benign brain tumor. Mother is in her early 70's Medications and Allergies Home Medications Medication Instructions Recorded Confirmed Type Atorvastatin [Lipitor] 80 mg PO HS #30 tab 02/27/16 01/23/24 Rx Ipratropium/Albuterol Sulfate 1 puff INHALATION RT-QID 01/12/19 01/23/24 History [Combivent Respimat Inhaler] metFORMIN HCL [Glucophage] 1,000 mg PO BID 01/12/19 01/23/24 History Omeprazole 20 mg PO DAILY 03/14/19 01/23/24 History Aspirin EC [Ecotrin Low Dose] 81 mg PO DAILY 10/17/20 01/23/24 History Fluticasone Propion/Salmeterol 1 puff INHALATION RT-BID 01/15/22 01/23/24 History [Wixela 250-50 Inhub] Insulin Glargine,Hum.rec.anlog 40 unit SQ DAILY 01/15/22 01/23/24 History [Lantus Solostar Pen] Multivitamins, Thera [Multivitamin 1 tab PO DAILY 01/15/22 01/23/24 History (formulary)] carvediloL 37.5 mg PO BID-W/MEALS 01/15/22 01/23/24 History Empagliflozin [Jardiance] 25 mg PO DAILY 05/02/23 01/23/24 History Bumetanide [Bumex] 1 mg PO DAILY 01/23/24 01/23/24 History Ergocalciferol (Vitamin D2) 1,250 mcg PO Q7D 01/23/24 01/23/24 History [Drisdol (50,000 Iu)] Losartan Potassium [Cozaar] 100 mg PO DAILY 01/23/24 01/23/24 History Sodium Chloride Irrig Solution 1 applic IRRIGATION DIRECTED PRN 01/23/24 01/23/24 History [Sodium Chloride Irrig] hydrALAZINE HCL [Apresoline] 25 mg PO TID 01/23/24 01/23/24 History Allergies Allergy/AdvReac Type Severity Reaction Status Date / Time tetracycline Allergy Rash/Hives Verified 01/23/24 18:14 Physical Examination - Vital Signs Vital Signs: Vital Signs Temp Pulse Pulse Resp BP BP Pulse Ox 01/24/24 11:58 99.0 F 75 18 123/75 98 01/24/24 07:49 100 F H 89 22 146/71 96 01/24/24 04:00 98.3 F 82 18 110/70 98 01/24/24 00:00 98.2 F 71 16 105/68 98 01/23/24 22:47 98 F 70 20 92/61 95 01/23/24 22:05 97.9 F 94 16 100/79 94 L 01/23/24 21:06 94 L 01/23/24 21:05 97.9 F 18 103/72 88 L 01/23/24 20:33 88 16 105/71 92 L 01/23/24 19:45 104 H 18 117/82 93 L 01/23/24 19:30 99.5 F 86 18 122/78 01/23/24 18:00 101.0 F H 97 22 118/99 92 L 01/23/24 15:52 102.3 F H 100 20 116/99 90 L Intake and Output 01/23/24 01/24/24 01/24/24 22:59 06:59 14:59 Intake Total 2240 260 Balance 2240 260 Intake: IV 20 Invasive Line 1 10 Invasive Line 2 10 Intake, IV Titration 2000 Amount Sodium Chloride 0.9% 1, 2000 000 ml @ 999 mls/hr IV . Q1H1M ONE Rx#:[id number] Oral 240 240 Other: Voiding Method Bedside Commode Bedside Commode Weight 163.293 kg 128.5 kg General: The patient is reclining in the bed. He is in no acute distress HEENT: Head is atraumatic, normocephalic. Fundus not visualized. There is no scleral icterus. Mucous membranes are moist. Neck: Supple without carotid bruits Heart: Regular rate and rhythm Lungs: Essentially clear to auscultation Extremities: Marked, bilateral lower extremity edema with evidence of cellulitis, open wounds, blistering, discoloration of the skin. The left foot is cool to the touch. Right foot is warm. Neurological examination Mental status: The patient is awake, alert and oriented x 3. Speech is clear. There is no dysarthria or aphasia. Patient is able to accurately repeat phrases and name objects. Cranial nerves: Pupils are equal, round and reactive at 3 mm. Visual charlton are full to confrontation. Extraocular movements are intact. There is no nystagmus. Facial sensation is intact. There is no facial asymmetry. Hearing is grossly intact. Uvula and palate are midline. Shoulder shrug is symmetric. Tongue protrudes midline. Motor: Strength is (right/left): Cellular Biologist 4/4, triceps 5/4, biceps 5/4, hip flexors 2/2, ankle plantar flexors 4/2, ankle external rotators 5/2. Sensation: There is reported decreased light touch sensation involving the right thigh and tingling associated with touch to the left foot. Touch sensation is otherwise intact. Proprioception is present at the right great toe and absent at the left great toe. Coordination: Aijzwk-on-[id number], rapid alternating movements intact. There is no pronator drift. Deep tendon reflexes: 1-2+/4+ in the bilateral upper extremities. Lower extremity reflexes are absent. Plantar responses are not assessed. Gait: Not assessed Results - Laboratory Findings CBC and BMP: 01/24/24 04:11 01/24/24 04:11 Abnormal Lab Findings: Abnormal Labs 01/23/24 01/23/24 01/23/24 16:44 16:44 16:44 WBC 18.7 H Neutrophils # Neutrophils # (Manual) 17.00 H Lymphocytes # Lymphocytes # (Manual) 0.37 L Monocytes # (Manual) 1.31 H Metamyelocytes # (Man) 0.19 H Sodium 131 L BUN Creatinine 1.98 H Glucose 178 H POC Glucose (mg/dL) Plasma Lactic Acid Kannan 3.5 H* Calcium 8.3 L Total Bilirubin 1.9 H AST 66 H Creatine Kinase Total Protein 5.6 L Albumin 2.6 L Urine Protein Urine Glucose (UA) Urine Blood Urine WBC Amorphous Sediment Urine Bacteria Hyaline Casts Urine Mucus 01/23/24 01/23/24 01/24/24 16:44 20:32 00:06 WBC Neutrophils # Neutrophils # (Manual) Lymphocytes # Lymphocytes # (Manual) Monocytes # (Manual) Metamyelocytes # (Man) Sodium BUN Creatinine Glucose POC Glucose (mg/dL) 169 H Plasma Lactic Acid Kannan 3.8 H* Calcium Total Bilirubin AST Creatine Kinase Total Protein Albumin Urine Protein 3+ H Urine Glucose (UA) 4+ H Urine Blood Moderate H Urine WBC 17 H Amorphous Sediment Occasional H Urine Bacteria Many H Hyaline Casts 97 H Urine Mucus Few H 01/24/24 01/24/24 01/24/24 00:12 04:11 04:11 WBC 14.4 H Neutrophils # 13.3 H Neutrophils # (Manual) Lymphocytes # 0.5 L Lymphocytes # (Manual) Monocytes # (Manual) Metamyelocytes # (Man) Sodium 133 L BUN 23 H Creatinine 2.86 H Glucose 150 H POC Glucose (mg/dL) Plasma Lactic Acid Kannan 2.8 H* Calcium 7.8 L Total Bilirubin AST 156 H Creatine Kinase Total Protein 5.3 L Albumin 2.4 L Urine Protein Urine Glucose (UA) Urine Blood Urine WBC Amorphous Sediment Urine Bacteria Hyaline Casts Urine Mucus 01/24/24 01/24/24 01/24/24 06:01 09:43 11:42 WBC Neutrophils # Neutrophils # (Manual) Lymphocytes # Lymphocytes # (Manual) Monocytes # (Manual) Metamyelocytes # (Man) Sodium BUN Creatinine Glucose POC Glucose (mg/dL) 151 H 153 H Plasma Lactic Acid Kannan Calcium Total Bilirubin AST Creatine Kinase 8978 H* Total Protein Albumin Urine Protein Urine Glucose (UA) Urine Blood Urine WBC Amorphous Sediment Urine Bacteria Hyaline Casts Urine Mucus Assessment and Plan Assessment: 1. 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 Marked edema, discoloration and coolness to touch involving the left foot, concern for peripheral arterial disease 3. History of poorly controlled diabetes mellitus 4. History of chronic wounds involving the bilateral lower extremities 5. History of hypertension 6. History of hyperlipidemia Plan: 1. Urgent arterial Doppler has been ordered, for the lower extremities 2. Physical therapy is recommended for assessment and treatment of left foot numbness and weakness 3. EMG may be considered, if symptoms do not improve 4. Wound care to further evaluate lower extremities 5. Primary team for treatment of cellulitis Thank you for allowing us to participate in the care of this patient Dr. Richards will assume neurologic coverage of this patient as of January 25, 2024 Time with Patient: Greater than 30 (60 minutes were spent caring for this patient today including, obtaining history, examining the patient, reviewing imaging, chart documentation, labs, placing orders and creating this note)
--- NOTE | 2024-01-24 15:04 | US ---
EXAMINATION TYPE: US kidneys/renal and bladder DATE OF EXAM: 01/24/2024 Exam done portable COMPARISON: US 2020 CLINICAL INDICATION: Male, 54 years old with history of marcella; EXAM MEASUREMENTS: Right Kidney: 13.2 x 6.4 x 5.2 cm Left Kidney: 11.2 x 5.5 x 5.0 cm Difficult and limited study due to patient body habitus Right Kidney: No hydronephrosis or masses seen Left Kidney: No hydronephrosis or masses seen Bladder: wnl There is no evidence for hydronephrosis at this point in time. No nephrolithiasis is seen. No rosalva s are identified. The urinary bladder is anechoic. Bilateral ureteral jets are seen. IMPRESSION: No obstructive uropathy.
[2024-01-24 16:24] LABS: Glucose,Whole Blood 143 mg/dL (70-110)
--- NOTE | 2024-01-24 16:53 | US ---
EXAMINATION TYPE: US arterial LE single level Exam done portable DATE OF EXAM: 01/24/2024 4:15 PM CLINICAL INDICATION: Male, 54 years old with history of left foot coolness and numbness; Non healing wound left lower leg, heart attack 2016/stent History of: Smoker: Previous Hypertension: Yes Diabetic: Yes Hyperlipidemia: No TIA/CVA: No Previous Vascular Surgery: Yes ID: Yes Vascular Ulcers: Left Doppler Waveforms: Right: Multiphasic Left: Multiphasic Pressure Gradients: Right Brachial Pressure: deferred due to IV site Left Brachial Pressure: 81 Ankle-Brachial Indices: Right: 1.49 Left: 0.99 (Vessel hardening > 1.4; Normal 0.9 - 1.4, Moderate 0.7 - 0.9, Severe 0.5-0.7) IMPRESSION: Ankle brachial indices within normal limits bilaterally.
[2024-01-24] MEDS: hydrALAZINE HCL 25 MG TAB PO SCH (17:22)
[2024-01-24] MEDS: MUPIROCIN 2% OINT 22 GM TUBE TOPICAL SCH (17:22)
[2024-01-24 19:56] LABS: Glucose,Whole Blood 170 mg/dL (70-110)
[2024-01-24] MEDS: SYMBICORT 80-4.5 MCG INHALER INHALATION SCH (20:03)
[2024-01-24] MEDS: ATORVASTATIN 80 MG TAB PO SCH (22:18)
[2024-01-25 05:54] LABS: Glucose,Whole Blood 198 mg/dL (70-110)
[2024-01-25 07:55] LABS: HCT 37.5 % (39.0-53.0); HGB 11.5 gm/dL (13.0-17.5); Hypochromasia Moderate; MCH 28.6 pg (25.0-35.0); MCHC 30.6 g/dL (31.0-37.0); MCV 93.7 fL (80.0-100.0); Platelet Count 160 k/uL (150-450); RDW 14.7 % (11.5-15.5); WBC 8.3 k/uL (3.8-10.6)
[2024-01-25 08:07] LABS: ALT 37 U/L (4-49); AST 120 U/L (17-59); African American GFR (CKD) 23 (>60 ml/min/1.73 sqM); Albumin 2.3 g/dL (3.5-5.0); Alkaline Phosphatase 71 U/L (38-126); Anion Gap 6 mmol/L; Blood Urea Nitrogen 37 mg/dL (9-20); Calcium 7.8 mg/dL (8.4-10.2); Carbon Dioxide 25 mmol/L (22-30); Chloride 104 mmol/L (98-107); Glucose 193 mg/dL (74-99); Magnesium 2.2 mg/dL (1.6-2.3); Non-African American GFR(CKD) 20 (>60 ml/min/1.73 sqM); Sodium 135 mmol/L (137-145); Total Bilirubin 0.5 mg/dL (0.2-1.3); Total Protein 5.1 g/dL (6.3-8.2)
[2024-01-25] MEDS: ASPIRIN 81 MG PO SCH (09:04)
[2024-01-25] MEDS: PANTOPRAZOLE 40 MG TABLET PO SCH (09:04)
[2024-01-25 09:07] LABS: Creatine Kinase 3779 U/L (55-170)
[2024-01-25 11:19] LABS: Glucose,Whole Blood 246 mg/dL (70-110)
--- NOTE | 2024-01-25 11:28 | P.PN ---
Subjective Patient is seen in follow-up for acute kidney injury on chronic kidney disease. Denies chest pain or shortness of breath. Has been voiding. On IV fluids. CK levels trending down. Creatinine up to 3.36 today. Vital signs are stable. General: No acute distress. HEENT: Head exam is unremarkable. On nasal cannula. LUNGS: Scattered wheezing. HEART: Rate and Rhythm are regular. ABDOMEN: Obese, nontender. EXTREMITITES: 1+ edema. Chronic changes noted. Objective - Vital Signs Vital signs: Vital Signs Temp 99.2 F 01/25/24 08:59 Pulse 71 01/25/24 08:59 Resp 16 01/25/24 08:59 BP 111/74 01/25/24 08:59 Pulse Ox 92 L 01/25/24 08:59 FiO2 Intake & Output 01/24/24 01/25/24 01/25/24 18:59 06:59 18:59 Intake Total 986 20 120 Output Total 420 425 500 Balance 416 -405 380 Intake: IV 30 20 10 Invasive Line 1 10 Invasive Line 2 20 20 10 Oral 956 110 Output: Urine 420 425 500 Other: Voiding Method Bedside Commode Bedside Commode Bedside Commode # Voids 1 - Labs CBC & Chem 7: 01/25/24 06:17 01/25/24 06:17 Labs: Abnormal Lab Results - Last 24 Hours (Table) 01/24/24 01/24/24 01/24/24 Range/Units 11:42 12:00 16:23 RBC (4.30-5.90) m/uL Hgb (13.0-17.5) gm/dL Hct (39.0-53.0) % MCHC (31.0-37.0) g/dL ABG pH 7.34 L (7.35-7.45) ABG pCO2 50 H (35-45) mmHg ABG HCO3 27 H (21-25) mmol/L ABG Total CO2 28 H (19-24) mmol/L ABG O2 Saturation 97.6 H (94-97) % Sodium (137-145) mmol/L BUN (9-20) mg/dL Creatinine (0.66-1.25) mg/dL Glucose (74-99) mg/dL POC Glucose (mg/dL) 153 H 143 H (70-110) mg/dL Calcium (8.4-10.2) mg/dL AST (17-59) U/L Creatine Kinase (55-170) U/L Total Protein (6.3-8.2) g/dL Albumin (3.5-5.0) g/dL 01/24/24 01/24/24 01/25/24 Range/Units 18:01 19:54 05:53 RBC (4.30-5.90) m/uL Hgb (13.0-17.5) gm/dL Hct (39.0-53.0) % MCHC (31.0-37.0) g/dL ABG pH (7.35-7.45) ABG pCO2 (35-45) mmHg ABG HCO3 (21-25) mmol/L ABG Total CO2 (19-24) mmol/L ABG O2 Saturation (94-97) % Sodium (137-145) mmol/L BUN (9-20) mg/dL Creatinine (0.66-1.25) mg/dL Glucose (74-99) mg/dL POC Glucose (mg/dL) 170 H 198 H (70-110) mg/dL Calcium (8.4-10.2) mg/dL AST (17-59) U/L Creatine Kinase 6544 H* (55-170) U/L Total Protein (6.3-8.2) g/dL Albumin (3.5-5.0) g/dL 01/25/24 01/25/24 01/25/24 Range/Units 06:17 06:17 11:15 RBC 4.00 L (4.30-5.90) m/uL Hgb 11.5 L (13.0-17.5) gm/dL Hct 37.5 L (39.0-53.0) % MCHC 30.6 L (31.0-37.0) g/dL ABG pH (7.35-7.45) ABG pCO2 (35-45) mmHg ABG HCO3 (21-25) mmol/L ABG Total CO2 (19-24) mmol/L ABG O2 Saturation (94-97) % Sodium 135 L (137-145) mmol/L BUN 37 H (9-20) mg/dL Creatinine 3.36 H (0.66-1.25) mg/dL Glucose 193 H (74-99) mg/dL POC Glucose (mg/dL) 246 H (70-110) mg/dL Calcium 7.8 L (8.4-10.2) mg/dL AST 120 H (17-59) U/L Creatine Kinase 3779 H* (55-170) U/L Total Protein 5.1 L (6.3-8.2) g/dL Albumin 2.3 L (3.5-5.0) g/dL Microbiology - Last 24 Hours (Table) 01/23/24 17:15 Blood Culture Gram Stain - Preliminary Blood Blood Culture - Preliminary Molecular ID 01/23/24 17:30 Blood Culture - Preliminary Blood Assessment and Plan Plan: Assessment: 1. Acute kidney injury secondary to ATN secondary to severe sepsis, hypotension, rhabdomyolysis. Creatinine up to 3.36 today. No hydronephrosis noted on kidney ultrasound. 2. Chronic kidney disease stage IIIa with baseline creatinine 1.3-1.5 secondary to diabetic kidney disease. 3. Rhabdomyolysis secondary to fall and immobility. CK levels trending down. 4. Diabetes mellitus. 5. Chronic systolic CHF with ejection fraction of 20 to 25%. 6. Coronary disease with prior stent placement. 7. Lower extremity wounds. 8. Gram-positive bacteremia. On antibiotics. Plan: Maintain IV fluids. Continue to hold diuretics for now. Encouraged oral intake. Avoid nephrotoxins. Continue to monitor renal function and urine output. Monitor vancomycin levels. Dose to be adjusted for renal function. Strict I's and O's. Bladder scans have been negative.
--- NOTE | 2024-01-25 13:05 | P.PN ---
Subjective Progress Note Date: 01/25/24 Hospital course: Patient is a 54-year-old male with a past medical history of CAD status post cardiac arrest, ischemic cardiomyopathy with chronic systolic heart failure with EF of 20-25%, hypertension, hyperlipidemia, COPD, insulin-dependent diabetes mellitus, and chronic venous stasis dermatitis with ulcerations..He presented to the emergency department on 01/24/2024 with complaints of fall, fever, and chills. Had recurrent falls in the ER. Upon arrival to our facility, patient underwent evaluation in the emergency department. Vital signs upon arrival show blood pressure 116/99, heart rate 100, respiratory rate 20, temp 102.3 F, and SpO2 of 90% on room air. Labs were completed and reviewed. CBC showing leukocytosis with WBC count of 18.7. Coagulation profile normal findings. BMP showing hyponatremia with sodium of 131 and acute kidney injury with BUN of 15, creatinine of 1.98 (baseline creatinine 1.5), and GFR of 37. Lactic acid was elevated at 3.5. Liver profile showing hyperbilirubinemia with total bili of 1.9, AST of 66. Troponin was 0.017 and proBNP was 43,500. TSH was 2.880. Urinalysis positive for protein, glucose, and blood negative for infection with only 17 WBCs. Influenza A and influenza B were negative. Creatinine kinase was 8978. Chest x-ray was negative for acute cardiopulmonary process. Bilateral lower extremity Dopplers were negative for DVT. X-ray left ankle negative for acute fracture. X-ray left tib-fib negative for acute fracture or dislocation. X-ray left foot negative for acute fracture dislocation. Patient was admitted under our services with consultation to nephrology and infectious disease. Renal ultrasound negative for obstructive uropathy showing no signs of hydronephrosis, nephrolithiasis, or masses noted. CT head was negative for acute intracranial process showing CSF cleft extending from the right lateral frontal lobe possibly representing prior CVA. Physical exam: Patient seen and evaluated at bedside this morning. He was sitting up in the chair and reports overall feeling better this morning. He currently denies having any pain or complaints at this time. He reports he has not been urinating very much. Documented urinary output over the past 24 hours is 845 cc. Vital signs reviewed and stable. General: Nontoxic, no distress and appears stated age. Derm: Skin warm and dry, normal coloration for ethnicity. Bilateral venous stasis changes with skin thickening and several healing less than quarter sized ulcerations bilateral skin, no open skin lesions right, left lateral posterior calf with avulsion injury approximately 8 x 3 inches in diameter, erythema right foot with avulsion of the nail of great toe Head: Atraumatic, normocephalic and symmetric. Eyes: EOMs intact, no lid lag, and anicteric sclera Mouth: no lip lesions, mucus membranes moist Cardiovascular: regular rate and rhythm with normal S1S2, No murmur. + dopplerable pulses left DP and PT Lungs: Respirations even, regular, and unlabored on room air. Lungs CTA bilaterally, no rhonchi, no rales, no wheezing, and no accessory muscle usage. Abdominal: soft, nontender to palpation, no guarding, no appreciable organomegaly Ext: ROM intact. No gross muscle atrophy, BLE edema, no contractures Neuro: Speech clear, face symmetrical and CN II-XII grossly intact with no noted focal neuro deficits Psych: Alert and oriented to person, place, time, and situation. Appropriate and pleasant affect. Assessment and Plan of Care: Sepsis secondary to cellulitis, chronic lower extremity wounds Staph bacteremia Acute kidney injury on chronic kidney disease stage IIIa with baseline creatini ne 1.4-1.6 Rhabdomyolysis Lactic acidosis, resolved -Vancomycin discontinued as blood culture showing no resistance preliminarily positive for staph. Continue IV antibiotics with Rocephin 2 g IV every 24 hours pending further recommendations from infectious disease. -Consult placed to infectious disease -Hold nephrotoxic medications including Cozaar and Jardiance -Continue gentle IV fluid hydration with 0.9% normal saline at 75 cc/h. -Order placed for strict I's and O's every shift. -Renal ultrasound negative for obstructive uropathy showing no signs of hydronephrosis, nephrolithiasis, or masses noted. -Check postvoid residuals -Random vancomycin level was 15.8. -Nephrology following, reviewed documentation in chart. Large skin avulsion injury left leg -Mupirocin ointment -Cover with nonadherent dressing -Await wound care recs Left foot numbness since fall - Neurology consulted, appreciate recommendations - CT head was negative for acute intracranial process showing CSF cleft ext ending from the right lateral frontal lobe possibly representing prior CVA. - Continue ASA 81 mg daily and liptior 80 mg nightly. - Possible need for EMG - Possitive strong DP and PT pulses pwer doppler on left - PT/OT consulted, appreciate recommendations HFrEF with EF 20-25% without exacerbation HTN HLD -Most recent echocardiogram from 05/04 with ejection fraction 20 to 25% -Home medications at baseline include Cozaar 100 mg daily, Coreg 37.5 mg twice daily, Jardiance 25 mg daily -Given extent of acute kidney injury continue to hold Jardiance and Cozaar -Continue Coreg 37.5 mg p.o. twice daily, Atorvastatin 40 mg daily and Hydralazine 25 mg p.o. 3 times daily. Poorly controlled diabetes mellitus type 2, insulin-dependent with hyperglycemia on arrival -Hgb A1c completed on 01/13/2024 was 9.6 -Hold metformin given CHAVO -Continue Levemir 40 units at nightly and glycemic protocol with NovoLog sliding scale insulin. COPD without exacerbation -DuoNebs 4 times daily and replacement of home Combivent inhaler -Add as needed albuterol -Transition home we will Baldo inhaler to Symbicort inhaler Repeated falls - Pt/OT consulted. - Fall precuations Chronic conditions: Prior DVT GERD History of BERTRAND and CPAP use Peripheral vascular disease Data and imaging reviewed today: -Renal ultrasound negative for obstructive uropathy showing no signs of hydronephrosis, nephrolithiasis, or masses noted. -CT head was negative for acute intracranial process showing CSF cleft extending from the right lateral frontal lobe possibly representing prior CVA. -Blood cultures preliminarily resulting in 1 of 2 sets positive for Staph aureus with no resistance reported -Repeat morning labs reviewed. CBC showing resolution of leukocytosis with WBC count of 8.3 and stable normocytic anemia with hemoglobin of 11.5. BMP showing worsening renal function with BUN of 37, creatinine of 3.36, and GFR of 20. Blood glucose 193. Liver profile showing elevated AST of 120 otherwise normal findings. Repeat creatinine kinase 3779. -Vital signs reviewed. Blood pressure 111/74, heart rate 71, respiratory rate 16, temp 99.2 F, and SpO2 of 92% on room air. -Documented urinary output over the past 24 hours was 845 cc. CODE STATUS: Full code DVT prophylaxis: Heparin Anticipated discharge date: Pending clinical course Anticipated discharge place: Pending clinical course Patient was seen independently by Nurse Pracitioner. This document was prepared using [employer] dictation software. Please allow for errors in household refrigeration mechanic, while rare they do occur. I reviewed the documentation as provided by the VINH above, who is the original author of this note. I agree with the documented assessment and plan, with the following changes: none Objective - Vital Signs Vital signs: Vital Signs Temp 99.0 F 01/25/24 04:00 Pulse 68 01/25/24 04:00 Resp 18 01/25/24 04:00 BP 114/72 01/25/24 04:00 Pulse Ox 93 L 01/25/24 04:00 FiO2 Intake & Output 01/24/24 01/25/24 01/25/24 18:59 06:59 18:59 Intake Total 986 20 Output Total 420 425 Balance 566 -405 Intake: IV 30 20 Invasive Line 1 10 Invasive Line 2 20 20 Oral 956 Output: Urine 420 425 Other: Voiding Method Bedside Commode Bedside Commode # Voids 1 - Labs CBC & Chem 7: 01/25/24 06:17 01/25/24 06:17 Labs: Abnormal Lab Results - Last 24 Hours (Table) 01/24/24 01/24/24 01/24/24 Range/Units 09:43 11:42 12:00 RBC (4.30-5.90) m/uL Hgb (13.0-17.5) gm/dL Hct (39.0-53.0) % MCHC (31.0-37.0) g/dL ABG pH 7.34 L (7.35-7.45) ABG pCO2 50 H (35-45) mmHg ABG HCO3 27 H (21-25) mmol/L ABG Total CO2 28 H (19-24) mmol/L ABG O2 Saturation 97.6 H (94-97) % POC Glucose (mg/dL) 153 H (70-110) mg/dL Creatine Kinase 8978 H* (55-170) U/L 01/24/24 01/24/24 01/24/24 Range/Units 16:23 18:01 19:54 RBC (4.30-5.90) m/uL Hgb (13.0-17.5) gm/dL Hct (39.0-53.0) % MCHC (31.0-37.0) g/dL ABG pH (7.35-7.45) ABG pCO2 (35-45) mmHg ABG HCO3 (21-25) mmol/L ABG Total CO2 (19-24) mmol/L ABG O2 Saturation (94-97) % POC Glucose (mg/dL) 143 H 170 H (70-110) mg/dL Creatine Kinase 6544 H* (55-170) U/L 01/25/24 01/25/24 Range/Units 05:53 06:17 RBC 4.00 L (4.30-5.90) m/uL Hgb 11.5 L (13.0-17.5) gm/dL Hct 37.5 L (39.0-53.0) % MCHC 30.6 L (31.0-37.0) g/dL ABG pH (7.35-7.45) ABG pCO2 (35-45) mmHg ABG HCO3 (21-25) mmol/L ABG Total CO2 (19-24) mmol/L ABG O2 Saturation (94-97) % POC Glucose (mg/dL) 198 H (70-110) mg/dL Creatine Kinase (55-170) U/L Microbiology - Last 24 Hours (Table) 01/23/24 17:30 Blood Culture - Preliminary Blood 01/23/24 17:15 Blood Culture - Preliminary Blood
[2024-01-25 16:26] LABS: Glucose,Whole Blood 229 mg/dL (70-110)
[2024-01-25] MEDS: HEPARIN SODIUM,PORCINE 5,000 UNIT/ML 1 ML VIAL SQ SCH (16:31)
[2024-01-25] MEDS ORDERED: VANCOMYCIN 2,250 MG in SODIUM CHLORIDE 0.9% 500 ML 500 ML IVPB SCH (17:00)
--- NOTE | 2024-01-25 18:27 | P.PN ---
Subjective Progress Note Date: 01/25/24 Patient was initially seen by Dr. Babin. Please refer to her note for details. Patient is a 54-year-old male came with left foot numbness following a fall. He is being worked up for stroke. Dr. Babin feels there is compression neuropathy. He had his foot wedged under his body for about an hour. He already has vascular and neurologic compromise of the extremities. Patient denies any headache. Offers no complaints. Denies any previous history of CVA. Objective - Vital Signs Vital signs: Vital Signs Temp 97.8 F 01/25/24 11:42 Pulse 68 01/25/24 15:20 Resp 16 01/25/24 15:20 BP 94/64 01/25/24 11:42 Pulse Ox 96 01/25/24 11:42 FiO2 Intake & Output 01/24/24 01/25/24 01/25/24 18:59 06:59 18:59 Intake Total 986 20 480 Output Total 420 425 500 Balance 566 -405 -20 Intake: IV 30 20 20 Invasive Line 1 10 Invasive Line 2 20 20 20 Oral 956 460 Output: Urine 420 425 500 Other: Voiding Method Bedside Commode Bedside Commode Bedside Commode # Voids 1 - Exam Patient's mental status is normal. He knows it is January and the year is 2023 and that he is in [facility] in [place]. Speech and language functions are normal. Cranial nerves are normal, visual charlton are full, face is symmetric and tongue protrudes in the midline. On muscle strength testing, the strength is normal in the arms distally and proximally. His ankle dorsiflexion is normal. Hip flexion is about 4-bilater ally. Patient has significant lymphedema, evidence of cellulitis in the lower extremities. No ataxia for [id number]-as-aufy testing. - Labs CBC & Chem 7: 01/25/24 06:17 01/25/24 06:17 Labs: Abnormal Lab Results - Last 24 Hours (Table) 01/24/24 01/24/24 01/24/24 Range/Units 16:23 18:01 19:54 RBC (4.30-5.90) m/uL Hgb (13.0-17.5) gm/dL Hct (39.0-53.0) % MCHC (31.0-37.0) g/dL Sodium (137-145) mmol/L BUN (9-20) mg/dL Creatinine (0.66-1.25) mg/dL Glucose (74-99) mg/dL POC Glucose (mg/dL) 143 H 170 H (70-110) mg/dL Calcium (8.4-10.2) mg/dL AST (17-59) U/L Creatine Kinase 6544 H* (55-170) U/L Total Protein (6.3-8.2) g/dL Albumin (3.5-5.0) g/dL 01/25/24 01/25/24 01/25/24 Range/Units 05:53 06:17 06:17 RBC 4.00 L (4.30-5.90) m/uL Hgb 11.5 L (13.0-17.5) gm/dL Hct 37.5 L (39.0-53.0) % MCHC 30.6 L (31.0-37.0) g/dL Sodium 135 L (137-145) mmol/L BUN 37 H (9-20) mg/dL Creatinine 3.36 H (0.66-1.25) mg/dL Glucose 193 H (74-99) mg/dL POC Glucose (mg/dL) 198 H (70-110) mg/dL Calcium 7.8 L (8.4-10.2) mg/dL AST 120 H (17-59) U/L Creatine Kinase 3779 H* (55-170) U/L Total Protein 5.1 L (6.3-8.2) g/dL Albumin 2.3 L (3.5-5.0) g/dL 01/25/24 Range/Units 11:15 RBC (4.30-5.90) m/uL Hgb (13.0-17.5) gm/dL Hct (39.0-53.0) % MCHC (31.0-37.0) g/dL Sodium (137-145) mmol/L BUN (9-20) mg/dL Creatinine (0.66-1.25) mg/dL Glucose (74-99) mg/dL POC Glucose (mg/dL) 246 H (70-110) mg/dL Calcium (8.4-10.2) mg/dL AST (17-59) U/L Creatine Kinase (55-170) U/L Total Protein (6.3-8.2) g/dL Albumin (3.5-5.0) g/dL Microbiology - Last 24 Hours (Table) 01/23/24 16:44 Urine Culture - Final Urine,Voided 01/23/24 17:15 Blood Culture Gram Stain - Preliminary Blood Blood Culture - Preliminary Molecular ID 01/23/24 17:30 Blood Culture - Preliminary Blood Assessment and Plan Assessment: 1. 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 Marked edema, discoloration and coolness to touch involving the left foot, concern for peripheral arterial disease 3. History of poorly controlled diabetes mellitus, with A1c 9.6 4. History of chronic wounds involving the bilateral lower extremities, possible cellulitis. 5. History of hypertension 6. History of hyperlipidemia 7. Positive blood cultures with gram-positive cocci in clusters. ID on board. Plan: 1. Arterial Doppler of the lower extremities shows normal TAQUERIA bilaterally. Ultrasound of the kidneys and bladder showed no obstructive uropathy. CK is improving 3779. 2. Physical therapy is recommended for assessment and treatment of left foot numbness and weakness 3. EMG may be considered, if symptoms do not improve, although will be technically very limited because of edema. 4. Wound care to further evaluate lower extremities 5. Primary team for treatment of cellulitis 6. CT head was performed which revealed no acute intracranial process. CSF cleft extending from right lateral frontal lobe possibly representing prior CVA. I personally reviewed CT head, agree with the findings. It could be previous CVA, or arachnoid cyst. Appears very old. No prior CT heads available for comparison. Patient denies previous history of strokes or TIA. Patient has history of CHF, with 2D echo showing EF of about 20 to 25%. Globally reduced severe systolic dysfunction. Inferior wall hypokinesia. Mildly increased left ventricular cavity size. Mild left atrial dilation. This may predispose him for CVA. Cardiology has seen patient previously in June 2023 with this echo, recommending patient to be on aspirin and statins. PT, OT. Dr. Lyle Thompson to resume neurology service from the morning.
[2024-01-25 20:06] LABS: Glucose,Whole Blood 197 mg/dL (70-110)
[2024-01-26 06:10] LABS: Glucose,Whole Blood 143 mg/dL (70-110)
[2024-01-26 07:28] LABS: African American GFR (CKD) 25 (>60 ml/min/1.73 sqM); Anion Gap 3 mmol/L; Blood Urea Nitrogen 38 mg/dL (9-20); Carbon Dioxide 27 mmol/L (22-30); Chloride 106 mmol/L (98-107); Glucose 140 mg/dL (74-99); Magnesium 2.4 mg/dL (1.6-2.3); Non-African American GFR(CKD) 22 (>60 ml/min/1.73 sqM); Potassium 4.2 mmol/L (3.5-5.1); Sodium 136 mmol/L (137-145)
[2024-01-26 07:31] LABS: Creatine Kinase 1453 U/L (55-170)
--- NOTE | 2024-01-26 08:52 | P.CONS ---
History of Present Illness - Reason for Consult Consult date: 01/25/24 Sepsis, cellulitis, staph bacteremia Requesting physician: Michael Saleem - Chief Complaint Weakness and fever x few days - History of Present Illness Patient is a 54-year-old male with a past medical history significant for diabetes mellitus hypertension hyperlipidemia DVT coronary artery disease patient has been brought in the hospital for evaluation generalized weakness and fever the night before presentation to the hospital however the patient decided not to come to the hospital at that time patient on the day of presentation the hospital attempted to sit on the toilet misted and instead landed on the ground patient was unable to get up due to the position he landed did his knees attempted to help him but she was unable EMS was called and the patient was brought into the hospital patient on presentation to the hospital did have a fever of 102.3 F patient was tachycardic at 1 time but not hypotensive or hypoxic no need for supplemental oxygen patient did have an elevated white count of 18.7 with a left shift creatinine has been elevated with further worsening of his kidney function did have elevated lactic acid on admission CKs are elevated but trending down urine was negative influenza RSV was negative patient has been treated with vancomycin and Rocephin with the blood cultures come back positive with gram-positive cocci prompting this consultation patient denies having any headache or URI symptoms no chest pain did have some shortness of breath no significant cough denies any abdominal pain no nausea no vomiting or any diarrhea patient did have a ulceration to the left lower extremity and has been complaining of some dull aching pain to the left leg over the last few days but no radiation or any foul-smelling drainage patient did have a venous Doppler negative for DVT both legs chest x-ray no evidence for acute cardiopulmonary process Review of Systems Positive point and negatives has been mentioned in the HPI, complete review of systems was performed and all other systems are negative Past Medical History Past Medical History: Asthma, Coronary Artery Disease (CAD), Heart Failure, COPD, Diabetes Mellitus, Deep Vein Thrombosis (DVT), GERD/Reflux, Hyperl ipidemia, Hypertension, Myocardial Infarction (PR), Renal Disease, Sleep Apnea/CPAP/BIPAP, Vascular Disorder Additional Past Medical History / Comment(s): 02/20/16 PR with cardiac anmsnm-Alla-hw wore life vest for 7 weeks, 2010 DVT RIGHT leg, bilateral lower leg cellulitis, bilateral varicose veins, PVD, NIDDM type II, BERTRAND with CPAP. UTI Mar 2021, cellulitis with open wounds on bilateral lower legs being treated in wound center 2021, H/o covid 2020 Last Myocardial Infarction Date:: 02/20/16 History of Any Multi-Drug Resistant Organisms: MRSA Year Discovered:: 2018 MDRO Source:: bilateral legs Past Surgical History: Heart Catheterization With Stent Additional Past Surgical History / Comment(s): circumcision Additional Past Anesthesia/Blood Transfusion Reaction / Comm: Pt has never had anesthesia Date of Last Stent Placement:: 02/20/16 Smoking Status: Former smoker - Past Family History Father Family Medical History: Coronary Artery Disease (CAD), Diabetes Mellitus, Eye Disorder Additional Family Medical History / Comment(s): Bradycardia, blind. Father is in his early 70's. Mother Family Medical History: Coronary Artery Disease (CAD), Diabetes Mellitus Additional Family Medical History / Comment(s): Benign brain tumor. Mother is in her early 70's Medications and Allergies Home Medications Medication Instructions Recorded Confirmed Type Atorvastatin [Lipitor] 80 mg PO HS #30 tab 02/27/16 01/23/24 Rx Ipratropium/Albuterol Sulfate 1 puff INHALATION RT-QID 01/12/19 01/23/24 History [Combivent Respimat Inhaler] metFORMIN HCL [Glucophage] 1,000 mg PO BID 01/12/19 01/23/24 History Omeprazole 20 mg PO DAILY 03/14/19 01/23/24 History Aspirin EC [Ecotrin Low Dose] 81 mg PO DAILY 10/17/20 01/23/24 History Fluticasone Propion/Salmeterol 1 puff INHALATION RT-BID 01/15/22 01/23/24 History [Wixela 250-50 Inhub] Insulin Glargine,Hum.rec.anlog 40 unit SQ DAILY 01/15/22 01/23/24 History [Lantus Solostar Pen] Multivitamins, Thera [Multivitamin 1 tab PO DAILY 01/15/22 01/23/24 History (formulary)] carvediloL 37.5 mg PO BID-W/MEALS 01/15/22 01/23/24 History Empagliflozin [Jardiance] 25 mg PO DAILY 05/02/23 01/23/24 History Bumetanide [Bumex] 1 mg PO DAILY 01/23/24 01/23/24 History Ergocalciferol (Vitamin D2) 1,250 mcg PO Q7D 01/23/24 01/23/24 History [Drisdol (50,000 Iu)] Losartan Potassium [Cozaar] 100 mg PO DAILY 01/23/24 01/23/24 History Sodium Chloride Irrig Solution 1 applic IRRIGATION DIRECTED PRN 01/23/24 01/23/24 History [Sodium Chloride Irrig] hydrALAZINE HCL [Apresoline] 25 mg PO TID 01/23/24 01/23/24 History Allergies Allergy/AdvReac Type Severity Reaction Status Date / Time tetracycline Allergy Rash/Hives Verified 01/23/24 18:14 Physical Exam Vitals: Vital Signs Temp Pulse Pulse Resp BP BP Pulse Ox 01/25/24 11:42 97.8 F 60 16 94/64 96 01/25/24 08:59 99.2 F 71 16 111/74 92 L 01/25/24 08:47 71 16 01/25/24 08:36 70 16 01/25/24 04:00 99.0 F 68 18 114/72 93 L 01/25/24 02:00 18 01/24/24 23:29 98.3 F 65 18 108/69 100 01/24/24 22:11 98.8 F 01/24/24 20:17 69 01/24/24 20:04 64 01/24/24 20:00 99.2 F 65 18 104/67 100 01/24/24 17:16 91/56 01/24/24 17:14 98.3 F 59 L 24 98/61 96 01/24/24 16:17 76 01/24/24 16:09 72 Intake and Output 01/24/24 01/25/24 01/25/24 22:59 06:59 14:59 Intake Total 368 10 470 Output Total 425 500 Balance 368 415 -30 Intake: IV 10 10 10 Invasive Line 2 10 10 10 Oral 358 460 Output: Urine 425 500 Other: Voiding Method Bedside Commode Bedside Commode Bedside Commode # Voids 1 GENERAL DESCRIPTION: Middle-aged male lying in bed, no distress. No tachypnea or accessory muscle of respiration use. HEENT: Shows Pallor , no scleral icterus. Oral mucous membrane is dry. No pharyngeal erythema or thrush NECK: Trachea central, no thyromegaly. LUNGS: Unlabored breathing. Decreased breath sound the base HEART: S1, S2, regular rate and rhythm. No loud murmur ABDOMEN: Soft, no tenderness , guarding or rigidity, no organomegaly EXTREMITIES: Diffuse swelling to bilateral lower extremity left leg did have superficial ulceration from a ruptured blister with no slough tissue or foul- smelling drainage SKIN: No rash, no masses palpable. NEUROLOGICAL: The patient is awake, alert, oriented x3, mood and affect normal. Results CBC & Chem 7: 01/25/24 06:17 01/26/24 06:40 Labs: Abnormal Lab Results - Last 24 Hours (Table) 01/24/24 01/24/24 01/24/24 Range/Units 16:23 18:01 19:54 RBC (4.30-5.90) m/uL Hgb (13.0-17.5) gm/dL Hct (39.0-53.0) % MCHC (31.0-37.0) g/dL Sodium (137-145) mmol/L BUN (9-20) mg/dL Creatinine (0.66-1.25) mg/dL Glucose (74-99) mg/dL POC Glucose (mg/dL) 143 H 170 H (70-110) mg/dL Calcium (8.4-10.2) mg/dL AST (17-59) U/L Creatine Kinase 6544 H* (55-170) U/L Total Protein (6.3-8.2) g/dL Albumin (3.5-5.0) g/dL 01/25/24 01/25/24 01/25/24 Range/Units 05:53 06:17 06:17 RBC 4.00 L (4.30-5.90) m/uL Hgb 11.5 L (13.0-17.5) gm/dL Hct 37.5 L (39.0-53.0) % MCHC 30.6 L (31.0-37.0) g/dL Sodium 135 L (137-145) mmol/L BUN 37 H (9-20) mg/dL Creatinine 3.36 H (0.66-1.25) mg/dL Glucose 193 H (74-99) mg/dL POC Glucose (mg/dL) 198 H (70-110) mg/dL Calcium 7.8 L (8.4-10.2) mg/dL AST 120 H (17-59) U/L Creatine Kinase 3779 H* (55-170) U/L Total Protein 5.1 L (6.3-8.2) g/dL Albumin 2.3 L (3.5-5.0) g/dL 01/25/24 Range/Units 11:15 RBC (4.30-5.90) m/uL Hgb (13.0-17.5) gm/dL Hct (39.0-53.0) % MCHC (31.0-37.0) g/dL Sodium (137-145) mmol/L BUN (9-20) mg/dL Creatinine (0.66-1.25) mg/dL Glucose (74-99) mg/dL POC Glucose (mg/dL) 246 H (70-110) mg/dL Calcium (8.4-10.2) mg/dL AST (17-59) U/L Creatine Kinase (55-170) U/L Total Protein (6.3-8.2) g/dL Albumin (3.5-5.0) g/dL Microbiology - Last 24 Hours (Table) 01/23/24 16:44 Urine Culture - Final Urine,Voided 01/23/24 17:15 Blood Culture Gram Stain - Preliminary Blood Blood Culture - Preliminary Molecular ID 01/23/24 17:30 Blood Culture - Preliminary Blood Assessment and Plan (1) Bacteremia Current Visit: Yes Status: Acute Code(s): R78.81 - BACTEREMIA SNOMED Code(s): 3431879 (2) Sepsis Current Visit: Yes Status: Acute Code(s): A41.9 - SEPSIS, UNSPECIFIED ORGANISM SNOMED Code(s): 61936531 (3) Bilateral lower leg cellulitis Current Visit: No Status: Acute Code(s): L03.116 - CELLULITIS OF LEFT LOWER LIMB; L03.115 - CELLULITIS OF RIGHT LOWER LIMB SNOMED Code(s): 971976223 (4) Ulcer of lower extremity Current Visit: No Status: Acute Code(s): L97.909 - NON-PRS CHRONIC ULC UNSP PRT OF UNSP LOW LEG W UNSP SEVERITY SNOMED Code(s): 05604411 Plan: 1patient presented to hospital with sepsis in this patient who did have fever tachycardia elevated white count source likely lower extremity cellulitis and likely from gram-positive skin birdie. 2patient with a left lower extremity ulceration likely from ruptured blister. 3Gram-positive bacteremia source likely lower extremity cellulitis and ulceration. 4blood culture repeated document clearance of his bacteremia. 5discontinue Rocephin. 6start the patient on cefazolin dosages to the kidney function by pharmacy 7local care to the left leg wound with a dry Aquacel dressing and Bobby wrap from just above the toe to below the knee change every 48 hour We will follow on clinical condition and cultures to further adjust medication if needed Thank you for this consultation we will follow the patient along with you Dictation was produced using [employer] dictation software. please excuse any grammatical, word or spelling errors. Time with Patient: Greater than 30
[2024-01-26] MEDS ORDERED: MINERAL OIL-WHITE PETROLATUM 120 GM JAR TOPICAL PRN (10:38)
--- NOTE | 2024-01-26 10:43 | P.CONS ---
History of Present Illness - Reason for Consult Consult date: 01/26/24 wound care - History of Present Illness This is a 54-year-old patient known to the wound care center with a open ulceration to the posterior left lower extremity. Patient has history of venous insufficiency. Diabetes and congestive heart failure. Patient is being seen on 3 S. for a nonhealing ulceration to the left posterior calf. Ulceration measures approximately 6 x 4 x 0.1 cm with granulation seen throughout the wound bed and minimal slough and nonviable tissue present. Patient does have edema noted to bilateral lower extremities. Review Of Systems: Constitutional: No fever, no chills, no night sweats. No weight change. No weakness, fatigue or lethargy. No daytime sleepiness. Integumentary:reports wounds, no lesions. No rash or pruritus. No unusual bruising. No change in hair or nails. Physical exam: General Appearance: Alert, cooperative, no distress, appears stated age. Skin: See HPI all other Skin color, texture, tugor normal, no rashes or lesions. Neurologic: Alert oriented x3 Assessment: 1. Nonhealing ulceration left calf with fat layer exposure 2. Chronic venous hypertension with inflammation and ulceration to the left lower extremity 3. Diabetes with skin ulceration 4. Chronic venous hypertension with inflammation right lower extremity Plan: 1.Left lower extremity: Apply absorptive silver dry rolled gauze Bobby wrap for compression. Right lower extremity apply Eucerin and Bobby wrap for compression. Patient will be seen in the wound care center next Friday 02/02 at 815. Thank you for the consultation any questions please contact the wound care center DNP note has been reviewed and discussed with Dr. Livingston and the impression and plan of care has been directed as dictated. Past Medical History Past Medical History: Asthma, Coronary Artery Disease (CAD), Heart Failure, COPD, Diabetes Mellitus, Deep Vein Thrombosis (DVT), GERD/Reflux, Hyperlipidemia, Hypertension, Myocardial Infarction (ID), Renal Disease, Sleep Apnea/CPAP/BIPAP, Vascular Disorder Additional Past Medical History / Comment(s): 02/20/16 ID with cardiac eocypb-Odbs-nt wore life vest for 7 weeks, 2010 DVT RIGHT leg, bilateral lower leg cellulitis, bilateral varicose veins, PVD, NIDDM type II, BERTRAND with CPAP. UTI Mar 2021, cellulitis with open wounds on bilateral lower legs being treated in wound center 2021, H/o covid 2020 Last Myocardial Infarction Date:: 02/20/16 History of Any Multi-Drug Resistant Organisms: MRSA Year Discovered:: 2018 MDRO Source:: bilateral legs Past Surgical History: Heart Catheterization With Stent Additional Past Surgical History / Comment(s): circumcision Additional Past Anesthesia/Blood Transfusion Reaction / Comm: Pt has never had anesthesia Date of Last Stent Placement:: 02/20/16 Smoking Status: Former smoker - Past Family History Father Family Medical History: Coronary Artery Disease (CAD), Diabetes Mellitus, Eye Disorder Additional Family Medical History / Comment(s): Bradycardia, blind. Father is in his early 70's. Mother Family Medical History: Coronary Artery Disease (CAD), Diabetes Mellitus Additional Family Medical History / Comment(s): Benign brain tumor. Mother is in her early 70's Medications and Allergies Home Medications Medication Instructions Recorded Confirmed Type Atorvastatin [Lipitor] 80 mg PO HS #30 tab 02/27/16 01/23/24 Rx Ipratropium/Albuterol Sulfate 1 puff INHALATION RT-QID 01/12/19 01/23/24 History [Combivent Respimat Inhaler] metFORMIN HCL [Glucophage] 1,000 mg PO BID 01/12/19 01/23/24 History Omeprazole 20 mg PO DAILY 03/14/19 01/23/24 History Aspirin EC [Ecotrin Low Dose] 81 mg PO DAILY 10/17/20 01/23/24 History Fluticasone Propion/Salmeterol 1 puff INHALATION RT-BID 01/15/22 01/23/24 History [Wixela 250-50 Inhub] Insulin Glargine,Hum.rec.anlog 40 unit SQ DAILY 01/15/22 01/23/24 History [Lantus Solostar Pen] Multivitamins, Thera [Multivitamin 1 tab PO DAILY 01/15/22 01/23/24 History (formulary)] carvediloL 37.5 mg PO BID-W/MEALS 01/15/22 01/23/24 History Empagliflozin [Jardiance] 25 mg PO DAILY 05/02/23 01/23/24 History Bumetanide [Bumex] 1 mg PO DAILY 01/23/24 01/23/24 History Ergocalciferol (Vitamin D2) 1,250 mcg PO Q7D 01/23/24 01/23/24 History [Drisdol (50,000 Iu)] Losartan Potassium [Cozaar] 100 mg PO DAILY 01/23/24 01/23/24 History Sodium Chloride Irrig Solution 1 applic IRRIGATION DIRECTED PRN 01/23/24 01/23/24 History [Sodium Chloride Irrig] hydrALAZINE HCL [Apresoline] 25 mg PO TID 01/23/24 01/23/24 History Allergies Allergy/AdvReac Type Severity Reaction Status Date / Time tetracycline Allergy Rash/Hives Verified 01/23/24 18:14 Physical Exam Vitals: Vital Signs Temp Pulse Pulse Resp BP Pulse Ox 01/26/24 09:10 60 18 01/26/24 09:09 66 18 01/26/24 09:05 97.9 F 60 18 124/80 97 01/26/24 08:59 68 18 01/26/24 04:00 97.7 F 59 L 18 117/75 98 01/26/24 02:00 58 L 16 01/26/24 00:00 97.6 F 58 L 16 104/69 97 01/25/24 21:24 64 01/25/24 21:09 62 01/25/24 20:00 98 F 59 L 18 115/88 98 01/25/24 15:20 97.6 F 68 70 17 106/70 96 01/25/24 15:12 64 16 01/25/24 11:42 97.8 F 60 16 94/64 96 Intake and Output 01/25/24 01/26/24 01/26/24 22:59 06:59 14:59 Intake Total 360 10 128 Balance 360 10 128 Intake: IV 10 10 10 Invasive Line 2 10 10 10 Oral 350 118 Other: Voiding Method Bedside Commode Bedside Commode Bedside Commode Urinal Urinal Urinal Results CBC & Chem 7: 01/25/24 06:17 01/26/24 06:40 Labs: Abnormal Lab Results - Last 24 Hours (Table) 01/25/24 01/25/24 01/25/24 Range/Units 11:15 16:24 20:04 Sodium (137-145) mmol/L BUN (9-20) mg/dL Creatinine (0.66-1.25) mg/dL Glucose (74-99) mg/dL POC Glucose (mg/dL) 246 H 229 H 197 H (70-110) mg/dL Calcium (8.4-10.2) mg/dL Magnesium (1.6-2.3) mg/dL Creatine Kinase (55-170) U/L 01/26/24 01/26/24 Range/Units 06:08 06:40 Sodium 136 L (137-145) mmol/L BUN 38 H (9-20) mg/dL Creatinine 3.10 H (0.66-1.25) mg/dL Glucose 140 H (74-99) mg/dL POC Glucose (mg/dL) 143 H (70-110) mg/dL Calcium 8.0 L (8.4-10.2) mg/dL Magnesium 2.4 H (1.6-2.3) mg/dL Creatine Kinase 1453 H* (55-170) U/L Microbiology - Last 24 Hours (Table) 01/23/24 17:15 Blood Culture Gram Stain - Final Blood Blood Culture - Final Coagulase Negative Staph Molecular ID 01/23/24 17:30 Blood Culture - Preliminary Blood 01/23/24 16:44 Urine Culture - Final Urine,Voided Assessment and Plan (1) Non-pressure chronic ulcer of left calf with fat layer exposed Current Visit: Yes Status: Acute Code(s): L97.222 - NON-PRESSURE CHRONIC ULCER OF LEFT CALF W FAT LAYER EXPOSED SNOMED Code(s): 18870626875337984 (2) Chronic venous hypertension w/ulcer and inflammation involv left side Current Visit: Yes Status: Acute Code(s): I87.332 - CHRONIC VENOUS HTN W ULCER AND INFLAMMATION OF L LOW EXTREM SNOMED Code(s): 651538840 (3) Chronic venous hypertension (idiopathic) with inflammation of right lower extremity Current Visit: Yes Status: Acute Code(s): I87.321 - CHRONIC VENOUS HYPERTENSION W INFLAMMATION OF R LOW EXTREM SNOMED Code(s): 688593329 (4) Type 2 diabetes mellitus with other skin ulcer Current Visit: No Status: Acute Code(s): E11.622 - TYPE 2 DIABETES MELLITUS WITH OTHER SKIN ULCER; L98.499 - NON-PRESSURE CHRONIC ULCER OF SKIN OF SITES W UNSP SEVERITY SNOMED Code(s): 465032643731925
[2024-01-26 11:35] LABS: Glucose,Whole Blood 161 mg/dL (70-110)
--- NOTE | 2024-01-26 12:43 | P.PN ---
Subjective Patient is seen in follow-up for acute kidney injury on chronic kidney disease. Denies chest pain or shortness of breath. Has been voiding. On IV fluids. CK levels trending down. Renal function slightly better. Vital signs are stable. General: No acute distress. HEENT: Head exam is unremarkable. On nasal cannula. LUNGS: Scattered wheezing. HEART: Rate and Rhythm are regular. ABDOMEN: Obese, nontender. EXTREMITITES: 1+ edema. Chronic changes noted. Objective - Vital Signs Vital signs: Vital Signs Temp 97.9 F 01/26/24 09:05 Pulse 61 01/26/24 11:44 Resp 18 01/26/24 11:44 BP 120/80 01/26/24 11:32 Pulse Ox 96 01/26/24 11:32 FiO2 Intake & Output 01/25/24 01/26/24 01/26/24 18:59 06:59 18:59 Intake Total 590 260 128 Output Total 500 Balance 90 260 128 Intake: IV 20 20 10 Invasive Line 2 20 20 10 Oral 570 240 118 Output: Urine 500 Other: Voiding Method Bedside Commode Bedside Commode Bedside Commode Urinal Urinal - Labs CBC & Chem 7: 01/25/24 06:17 01/26/24 06:40 Labs: Abnormal Lab Results - Last 24 Hours (Table) 01/25/24 01/25/24 01/26/24 Range/Units 16:24 20:04 06:08 Sodium (137-145) mmol/L BUN (9-20) mg/dL Creatinine (0.66-1.25) mg/dL Glucose (74-99) mg/dL POC Glucose (mg/dL) 229 H 197 H 143 H (70-110) mg/dL Calcium (8.4-10.2) mg/dL Magnesium (1.6-2.3) mg/dL Creatine Kinase (55-170) U/L 01/26/24 01/26/24 Range/Units 06:40 11:33 Sodium 136 L (137-145) mmol/L BUN 38 H (9-20) mg/dL Creatinine 3.10 H (0.66-1.25) mg/dL Glucose 140 H (74-99) mg/dL POC Glucose (mg/dL) 161 H (70-110) mg/dL Calcium 8.0 L (8.4-10.2) mg/dL Magnesium 2.4 H (1.6-2.3) mg/dL Creatine Kinase 1453 H* (55-170) U/L Microbiology - Last 24 Hours (Table) 01/23/24 17:15 Blood Culture Gram Stain - Final Blood Blood Culture - Final Coagulase Negative Staph Molecular ID 01/23/24 17:30 Blood Culture - Preliminary Blood 01/23/24 16:44 Urine Culture - Final Urine,Voided Assessment and Plan Plan: Assessment: 1. Acute kidney injury secondary to ATN secondary to severe sepsis, hypotension, rhabdomyolysis. Creatinine peaked at 3.36 this admission and is 3.1 today. No hydronephrosis noted on kidney ultrasound. 2. Chronic kidney disease stage IIIa with baseline creatinine 1.3-1.5 secondary to diabetic kidney disease. 3. Rhabdomyolysis secondary to fall and immobility. CK levels trending down. 4. Diabetes mellitus. 5. Chronic systolic CHF with ejection fraction of 20 to 25%. 6. Coronary disease with prior stent placement. 7. Lower extremity wounds. 8. Gram-positive bacteremia. On antibiotics. Plan: Maintain IV fluids. Encouraged oral intake. Avoid nephrotoxins. Continue to monitor renal function and urine output. Monitor vancomycin levels. Dose to be adjusted for renal function. Strict I's and O's. Bladder scans have been negative.
--- NOTE | 2024-01-26 15:30 | P.PN ---
Subjective Progress Note Date: 01/26/24 Principal diagnosis: Reason for follow-up is left lower extremity ulcer cellulitis and positive blood culture Patient is a 54-year-old male with a past medical history significant for diabetes mellitus hypertension hyperlipidemia DVT coronary artery disease patient has been brought in the hospital for evaluation generalized weakness and fever, patient did have ulceration to the left lower extremity and a positive blood culture prompting this consultation. On today's evaluation that is 01/26/2024,the patient remains to be afebrile, patient is on room air not requiring supplemental oxygen and denies any shortness of breath no chest pain or cough.Patient denies having any nausea or vomiting, no abdominal pain and no diarrhea has been reported, denies any worsening pain to the lower extremity. Patient did have a creatinine of 3.10 blood culture with coagulase-negative staph Objective - Vital Signs Vital signs: Vital Signs Temp 97.9 F 01/26/24 09:05 Pulse 62 01/26/24 14:00 Resp 18 01/26/24 14:00 BP 120/80 01/26/24 11:32 Pulse Ox 96 01/26/24 11:32 FiO2 Intake & Output 01/25/24 01/26/24 01/26/24 18:59 06:59 18:59 Intake Total 590 260 138 Output Total 500 700 Balance 90 260 -562 Intake: IV 20 20 20 Invasive Line 2 20 20 20 Oral 570 240 118 Output: Urine 500 700 Other: Voiding Method Bedside Commode Bedside Commode Bedside Commode Urinal Urinal - Exam GENERAL DESCRIPTION: Middle-age male up in bed in no distress RESPIRATORY SYSTEM: Unlabored breathing , decreased breath sounds at bases HEART: S1 S2 regular rate and rhythm , ABDOMEN: Soft , no tenderness EXTREMITIES: Diffuse and bilateral extremity ulceration to the left leg no drainage - Labs CBC & Chem 7: 01/25/24 06:17 01/26/24 06:40 Labs: Abnormal Lab Results - Last 24 Hours (Table) 01/25/24 01/25/24 01/26/24 Range/Units 16: 20:04 06:08 Sodium (137-145) mmol/L BUN (9-20) mg/dL Creatinine (0.66-1.25) mg/dL Glucose (74-99) mg/dL POC Glucose (mg/dL) 229 H 197 H 143 H (70-110) mg/dL Calcium (8.4-10.2) mg/dL Magnesium (1.6-2.3) mg/dL Creatine Kinase (55-170) U/L 01/26/24 01/26/24 Range/Units 06:40 11:33 Sodium 136 L (137-145) mmol/L BUN 38 H (9-20) mg/dL Creatinine 3.10 H (0.66-1.25) mg/dL Glucose 140 H (74-99) mg/dL POC Glucose (mg/dL) 161 H (70-110) mg/dL Calcium 8.0 L (8.4-10.2) mg/dL Magnesium 2.4 H (1.6-2.3) mg/dL Creatine Kinase 1453 H* (55-170) U/L Microbiology - Last 24 Hours (Table) 01/23/24 17:15 Blood Culture Gram Stain - Final Blood Blood Culture - Final Coagulase Negative Staph Molecular ID 01/23/24 17:30 Blood Culture - Preliminary Blood 01/23/24 16:44 Urine Culture - Final Urine,Voided Assessment and Plan (1) Bacteremia Current Visit: Yes Status: Acute Code(s): R78.81 - BACTEREMIA SNOMED Code(s): 9225923 (2) Sepsis Current Visit: Yes Status: Acute Code(s): A41.9 - SEPSIS, UNSPECIFIED OR GANISM SNOMED Code(s): 42910921 (3) Bilateral lower leg cellulitis Current Visit: No Status: Acute Code(s): L03.116 - CELLULITIS OF LEFT LOWER LIMB; L03.115 - CELLULITIS OF RIGHT LOWER LIMB SNOMED Code(s): 447080768 (4) Ulcer of lower extremity Current Visit: No Status: Acute Code(s): L97.909 - NON-PRS CHRONIC ULC UNSP PRT OF UNSP LOW LEG W UNSP SEVERITY SNOMED Code(s): 49246867 Plan: 1patient presented to hospital with sepsis in this patient who did have fever tachycardia elevated white count source likely lower extremity cellulitis and likely from gram-positive skin birdie. 2patient with a left lower extremity ulceration likely from ruptured blister. 3Gram-positive bacteremia source likely lower extremity cellulitis and ulceration. 4blood culture has been repeated document clearance of his bacteremia. 5patient to continue with the cefazolin and continue local wound care as o rdered Dictation was produced using [employer] dictation software. please excuse any grammatical, word or spelling errors. Time with Patient: Less than 30
[2024-01-26 16:29] LABS: Glucose,Whole Blood 205 mg/dL (70-110)
--- NOTE | 2024-01-26 18:09 | P.PN ---
Subjective Progress Note Date: 01/26/24 Subjective Patient seen and examined at bedside. No acute events overnight. Pertinent positives and negatives as discussed above, a complete review of systems was performed and all other systems are negative. Vitals: Signs Reviewed Physical Exam: General: nontoxic, no distress, appears at stated age Derm: warm, dry. Bilateral venous stasis changes with skin thickening and several healing less than quarter sized ulcerations bilateral skin, no open skin lesions right, left lateral posterior calf with avulsion injury approximately 8 x 3 inches in diameter, erythema right foot with avulsion of the nail of great toe Head: atraumatic, normocephalic, symmetric Eyes: EOMI, no lid lag, anicteric sclera Mouth: no lip lesion, mucus membranes moist Cardiovascular: S1 S2 reg, no murmur, rubs, or gallops Lungs: CTA bilateral, no rhonchi, no rales, no accessory muscle use Abdominal: soft, non-tender to palpataion, no appreciable organomegaly Extremities: no gross muscle atrophy, no edema, no contractures Neuro: Alert, Oriented, CNII-XII grossly intact, gait normal Psych: well appearing, appropriate affect Data Received Today: Pertinent Labs: Sodium 136, potassium 4.2, creatinine 3.1, magnesium 2.4, CK2 1453, blood sugars range between 1 40-2 05 Imaging: No new imaging Assessment and Plan: Sepsis secondary to cellulits d/t chronic lower extremity wounds Acute kidney injury on chronic kidney disease stage IIIa rhabdomyolysis, improving lactic acidosis, resolved leukocytosis, improvingwhite blood count 8.3 coag negative staph bacteremia, contaminant -Repeat blood cultures ordered -Continue cefazolin 2 g IV every 12 hours -ID following, continue current therapy -Continue normal saline at 75 cc an hour -Nephrology note reviewed, continue current therapy Large skin avulsion injury left leg -Mupirocin ointment -Cover with nonadherent dressing -Await wound care recs Left foot numbness Peripheral versus central - CT head was negative for acute intracranial process showing CSF cleft extending from the right lateral frontal lobe possibly representing prior CVA. - Continue ASA 81 mg daily and liptior 80 mg nightly. - Possitive strong DP and PT pulses pwer doppler on left - PT/OT consultedhas poor level of function, high risk for falls, assist required for ADL. Recommended subacute rehabilitation Consider EEG - Neurology following, pending recommendations Heart Failure with reduced ejection fraction, EF 20-25% w/o exacerbation Hypertension Dyslipidemia -Most recent echocardiogram from 05/04 with ejection fraction 20 to 25% -Home medications at baseline include Cozaar 100 mg daily, Coreg 37.5 mg twice daily, Jardiance 25 mg daily -Given extent of acute kidney injury continue to hold Jardiance and Cozaar -Continue Coreg 37.5 mg p.o. twice daily, Atorvastatin 40 mg daily and Hydralazi ne 25 mg p.o. 3 times daily. diabetes mellitus type 2, insulin-dependent with hyperglycemia, currently controlled -Hgb A1c completed on 01/13/2024 was 9.6 -Hold metformin given CHAVO -Continue Levemir 40 units at nightly and Glycemic protocol with insulin subcu sliding scale insulin. Monitor for hypoglycemia COPD without exacerbation -DuoNebs 4 times daily and replacement of home Combivent inhaler -Add as needed albuterol -Transition home we will Baldo inhaler to Symbicort inhaler Repeated falls - Pt/OT consulted. - Fall precuations Neuro following Chronic Prior DVT GERD BERTRAND Peripheral vascular disease F: N/A E: Replete as needed N: Consistent carbohydrate diet A: Fall precautions DVT ppx: Heparin subcu Code status: Full Anticipated discharge place: Pending clinical course Anticipated discharge time: Pending clinical course I have seen and evaluated the patient today. Discussed with the resident and agree with the residents finding and plan as documented in the resident's note. Changes highlighted in blue font. Objective - Vital Signs Vital signs: Vital Signs Temp 98.2 F 01/26/24 15:43 Pulse 66 01/26/24 15:54 Resp 18 01/26/24 15:54 BP 148/94 01/26/24 15:43 Pulse Ox 98 01/26/24 15:43 FiO2 Intake & Output 01/25/24 01/26/24 01/26/24 18:59 06:59 18:59 Intake Total 590 260 138 Output Total 500 700 Balance 90 260 -562 Intake: IV 20 20 20 Invasive Line 2 20 20 20 Oral 570 240 118 Output: Urine 500 700 Other: Voiding Method Bedside Commode Bedside Commode Bedside Commode Urinal Urinal - Labs CBC & Chem 7: 01/25/24 06:17 01/26/24 06:40 Labs: Abnormal Lab Results - Last 24 Hours (Table) 01/25/24 01/26/24 01/26/24 Range/Units 20:04 06:08 06:40 Sodium 136 L (137-145) mmol/L BUN 38 H (9-20) mg/dL Creatinine 3.10 H (0.66-1.25) mg/dL Glucose 140 H (74-99) mg/dL POC Glucose (mg/dL) 197 H 143 H (70-110) mg/dL Calcium 8.0 L (8.4-10.2) mg/dL Magnesium 2.4 H (1.6-2.3) mg/dL Creatine Kinase 1453 H* (55-170) U/L 01/26/24 01/26/24 Range/Units 11:33 16:26 Sodium (137-145) mmol/L BUN (9-20) mg/dL Creatinine (0.66-1.25) mg/dL Glucose (74-99) mg/dL POC Glucose (mg/dL) 161 H 205 H (70-110) mg/dL Calcium (8.4-10.2) mg/dL Magnesium (1.6-2.3) mg/dL Creatine Kinase (55-170) U/L Microbiology - Last 24 Hours (Table) 01/23/24 17:15 Blood Culture Gram Stain - Final Blood Blood Culture - Final Coagulase Negative Staph Molecular ID 01/23/24 17:30 Blood Culture - Preliminary Blood
[2024-01-26 20:09] LABS: Glucose,Whole Blood 201 mg/dL (70-110)
[2024-01-27] MEDS: traMADol 50 MG TAB PO PRN (03:45)
[2024-01-27 06:06] LABS: Glucose,Whole Blood 157 mg/dL (70-110)
[2024-01-27 07:05] LABS: HCT 37.7 % (39.0-53.0); HGB 11.4 gm/dL (13.0-17.5); Hypochromasia Marked; MCH 28.9 pg (25.0-35.0); MCHC 30.1 g/dL (31.0-37.0); MCV 96.1 fL (80.0-100.0); Mean Platelet Volume 9.6; Platelet Count 172 k/uL (150-450); RBC 3.93 m/uL (4.30-5.90); RDW 14.5 % (11.5-15.5); WBC 5.4 k/uL (3.8-10.6)
[2024-01-27 07:34] LABS: African American GFR (CKD) 29 (>60 ml/min/1.73 sqM); Anion Gap 4 mmol/L; Blood Urea Nitrogen 37 mg/dL (9-20); Calcium 8.3 mg/dL (8.4-10.2); Carbon Dioxide 26 mmol/L (22-30); Chloride 106 mmol/L (98-107); Glucose 150 mg/dL (74-99); Magnesium 2.4 mg/dL (1.6-2.3); Non-African American GFR(CKD) 25 (>60 ml/min/1.73 sqM); Potassium 4.6 mmol/L (3.5-5.1); Sodium 136 mmol/L (137-145)
[2024-01-27] MEDS: FUROSEMIDE 10 MG/ML 4 ML VIAL IV STA (10:34)
[2024-01-27] MEDS: SODIUM CHLORIDE 0.9% 1,000 ML IV SCH (10:35)
--- NOTE | 2024-01-27 10:50 | P.PN ---
Subjective Patient is seen in follow-up for acute kidney injury on chronic kidney disease. Denies chest pain or shortness of breath. Has been voiding. On IV fluids. CK levels trending down. Renal function improved. Vital signs are stable. General: No acute distress. HEENT: Head exam is unremarkable. On nasal cannula. LUNGS: Scattered wheezing. HEART: Rate and Rhythm are regular. ABDOMEN: Obese, nontender. EXTREMITITES: 2+ edema. Wrapped. Chronic changes noted. Objective - Vital Signs Vital signs: Vital Signs Temp 97.9 F 01/27/24 08:00 Pulse 68 01/27/24 08:49 Resp 18 01/27/24 08:49 BP 127/83 01/27/24 08:00 Pulse Ox 96 01/27/24 08:00 FiO2 Intake & Output 01/26/24 01/27/24 01/27/24 18:59 06:59 18:59 Intake Total 1218 20 118 Output Total 700 700 Balance 518 -680 118 Weight 160.5 kg Intake: IV 20 20 Invasive Line 2 20 20 Oral 1198 118 Output: Urine 700 700 Other: Voiding Method Bedside Commode Bedside Commode Urinal Urinal - Labs CBC & Chem 7: 01/27/24 06:23 01/27/24 06:23 Labs: Abnormal Lab Results - Last 24 Hours (Table) 01/26/24 01/26/24 01/26/24 Range/Units 11:33 16:26 20:07 RBC (4.30-5.90) m/uL Hgb (13.0-17.5) gm/dL Hct (39.0-53.0) % MCHC (31.0-37.0) g/dL Sodium (137-145) mmol/L BUN (9-20) mg/dL Creatinine (0.66-1.25) mg/dL Glucose (74-99) mg/dL POC Glucose (mg/dL) 161 H 205 H 201 H (70-110) mg/dL Calcium (8.4-10.2) mg/dL Magnesium (1.6-2.3) mg/dL 01/27/24 01/27/24 01/27/24 Range/Units 06:05 06:23 06:23 RBC 3.93 L (4.30-5.90) m/uL Hgb 11.4 L (13.0-17.5) gm/dL Hct 37.7 L (39.0-53.0) % MCHC 30.1 L (31.0-37.0) g/dL Sodium 136 L (137-145) mmol/L BUN 37 H (9-20) mg/dL Creatinine 2.77 H (0.66-1.25) mg/dL Glucose 150 H (74-99) mg/dL POC Glucose (mg/dL) 157 H (70-110) mg/dL Calcium 8.3 L (8.4-10.2) mg/dL Magnesium 2.4 H (1.6-2.3) mg/dL Microbiology - Last 24 Hours (Table) 01/23/24 17:30 Blood Culture - Preliminary Blood 01/23/24 17:15 Blood Culture Gram Stain - Final Blood Blood Culture - Final Coagulase Negative Staph Molecular ID Assessment and Plan Plan: Assessment: 1. Acute kidney injury secondary to ATN secondary to severe sepsis, hypotension, rhabdomyolysis. Creatinine peaked at 3.36 this admission and is 2.77 today. No hydronephrosis noted on kidney ultrasound. 2. Chronic kidney disease stage IIIa with baseline creatinine 1.3-1.5 secondary to diabetic kidney disease. 3. Rhabdomyolysis secondary to fall and immobility. CK levels trending down. 4. Diabetes mellitus. 5. Chronic systolic CHF with ejection fraction of 20 to 25%. 6. Coronary disease with prior stent placement. 7. Lower extremity wounds. 8. Gram-positive bacteremia. On antibiotics. Plan: Decrease rate of IV fluids. Lasix 40 mg IV once today. Encouraged oral intake. Avoid nephrotoxins. Continue to monitor renal function and urine output. Strict I's and O's. Bladder scans have been negative.
--- NOTE | 2024-01-27 10:57 | P.PN ---
Subjective Progress Note Date: 01/27/24 I am Seeing the patient for the first time during this admission. Please refer to Dr. Babin and Dr. Richards's note for further details. Seems that the patient has cellulitis of the bilateral lower extremities with marked edema in the left lower extremity as well as poorly controlled diabetes mellitus who states that he had a fall and fell on his left foot and a result he had numbness from the ankle down on the left side but states that his numbness is improving since his initial presentation. He denies of any neuropathy in the past. Denies F any other numbness or tingling anywhere else. Denies of any new neurological issues. Objective - Vital Signs Vital signs: Vital Signs Temp 97.9 F 01/27/24 08:00 Pulse 68 01/27/24 08:49 Resp 18 01/27/24 08:49 BP 127/83 01/27/24 08:00 Pulse Ox 96 01/27/24 08:00 FiO2 Intake & Output 01/26/24 01/27/24 01/27/24 18:59 06:59 18:59 Intake Total 1218 20 118 Output Total 700 700 Balance 518 -680 118 Weight 160.5 kg Intake: IV 20 20 Invasive Line 2 20 20 Oral 1198 118 Output: Urine 700 700 Other: Voiding Method Bedside Commode Bedside Commode Urinal Urinal - Exam General: Sitting up in a recliner chair and is not in acute distress. Neuro: Patient is awake alert oriented to self place and time. Is following simple commands. No aphasia no neglect. Visual charlton are full to confrontation. No facial weakness. No dysarthria Motor: Strength is left in all extremity above gravity and is symmetrical. Sensation: Has his bilateral lower extremity wrapped in gauze so sensation was limited in the lower but uppers is normal to touch - Labs CBC & Chem 7: 01/27/24 06:23 01/27/24 06:23 Labs: Abnormal Lab Results - Last 24 Hours (Table) 01/26/24 01/26/24 01/26/24 Range/Units 11:33 16:26 20:07 RBC (4.30-5.90) m/uL Hgb (13.0-17.5) gm/dL Hct (39.0-53.0) % MCHC (31.0-37.0) g/dL Sodium (137-145) mmol/L BUN (9-20) mg/dL Creatinine (0.66-1.25) mg/dL Glucose (74-99) mg/dL POC Glucose (mg/dL) 161 H 205 H 201 H (70-110) mg/dL Calcium (8.4-10.2) mg/dL Magnesium (1.6-2.3) mg/dL 01/27/24 01/27/24 01/27/24 Range/Units 06:05 06:23 06:23 RBC 3.93 L (4.30-5.90) m/uL Hgb 11.4 L (13.0-17.5) gm/dL Hct 37.7 L (39.0-53.0) % MCHC 30.1 L (31.0-37.0) g/dL Sodium 136 L (137-145) mmol/L BUN 37 H (9-20) mg/dL Creatinine 2.77 H (0.66-1.25) mg/dL Glucose 150 H (74-99) mg/dL POC Glucose (mg/dL) 157 H (70-110) mg/dL Calcium 8.3 L (8.4-10.2) mg/dL Magnesium 2.4 H (1.6-2.3) mg/dL Microbiology - Last 24 Hours (Table) 01/23/24 17:30 Blood Culture - Preliminary Blood 01/23/24 17:15 Blood Culture Gram Stain - Final Blood Blood Culture - Final Coagulase Negative Staph Molecular ID Assessment and Plan Assessment: 1. The patient is a 54-year-old male who presents with numbness involving his left foot, following a fall and compression of his foot, x 1 hour Symptoms are consistent with a compression neuropathy---symptoms improving 2. Marked edema, discoloration and coolness to touch involving the left foot, concern for peripheral arterial disease 3. History of poorly controlled diabetes mellitus, with A1c 9.6 4. History of chronic wounds involving the bilateral lower extremities, possible cellulitis. 5. History of hypertension 6. History of hyperlipidemia 7. Positive blood cultures with gram-positive cocci in clusters. ID on board. Plan: 1. Arterial Doppler of the lower extremities shows normal TAQUERIA bilaterally. Ultrasound of the kidneys and bladder showed no obstructive uropathy. CK is improving 3779-->1453. 2. PT, OT. are consulted 3. EMG may be considered as outpatient, if symptoms do not improve, although will be technically very limited because of edema. 4. Wound care to further evaluate lower extremities 5. Primary team for treatment of cellulitis 6. CT head was performed which revealed no acute intracranial process. CSF cleft extending from right lateral frontal lobe possibly representing prior CVA. I personally reviewed CT head, agree with the findings. It could be previous CVA, or arachnoid cyst. Appears very old. No prior CT heads available for comparison. 7. Patient has history of CHF, with 2D echo showing EF of about 20 to 25%. Globally reduced severe systolic dysfunction. Inferior wall hypokinesia. Mildly increased left ventricular cavity size. Mild left atrial dilation. This may predispose him for CVA. Cardiology has seen patient previously in June 2023 with this echo, recommending patient to be on aspirin and statins. 8. Patient was counseled on better control of his diabetes. Plan discussed with the patient and the primary team. There is no further neurological workup. Will sign off. Please reconsult if needed. Time with Patient: Less than 30
[2024-01-27 11:42] LABS: Glucose,Whole Blood 190 mg/dL (70-110)
--- NOTE | 2024-01-27 12:00 | P.PN ---
Subjective Progress Note Date: 01/27/24 Principal diagnosis: Reason for follow-up is left lower extremity ulcer cellulitis and positive blood culture Patient is a 54-year-old male with a past medical history significant for diabetes mellitus hypertension hyperlipidemia DVT coronary artery disease patient has been brought in the hospital for evaluation generalized weakness and fever, patient did have ulceration to the left lower extremity and a positive blood culture prompting this consultation. On today's evaluation that is 01/27/2024, the patient continues to be afebrile, the patient is on room air and breathing comfortably, the Pt denies having any chest pain or cough, the patient denies having any abdominal pain no vomiting or any diarrhea overall pain to the left lower extremity has decreased in intensity. Patient white count is 5.4 creatinine is 2.77 blood culture repeat so far pending Objective - Vital Signs Vital signs: Vital Signs Temp 97.9 F 01/27/24 08:00 Pulse 65 01/27/24 11:55 Resp 18 01/27/24 11:55 BP 127/83 01/27/24 08:00 Pulse Ox 96 01/27/24 08:00 FiO2 Intake & Output 01/26/24 01/27/24 01/27/24 18:59 06:59 18:59 Intake Total 1218 20 118 Output Total 700 700 Balance 518 -680 118 Weight 160.5 kg Intake: IV 20 20 Invasive Line 2 20 20 Oral 1198 118 Output: Urine 700 700 Other: Voiding Method Bedside Commode Bedside Commode Urinal Urinal # Voids 1 - Exam GENERAL DESCRIPTION: Middle-age male up in bed in no distress RESPIRATORY SYSTEM: Unlabored breathing , decreased breath sounds at bases HEART: S1 S2 regular rate and rhythm , ABDOMEN: Soft , no tenderness EXTREMITIES: Diffuse and bilateral extremity ulceration to the left leg no drainage - Labs CBC & Chem 7: 01/27/24 06:23 01/27/24 06:23 Labs: Abnormal Lab Results - Last 24 Hours (Table) 01/26/24 01/26/24 01/27/24 Range/Units 16:26 20:07 06:05 RBC (4.30-5.90) m/uL Hgb (13.0-17.5) gm/dL Hct (39.0-53.0) % MCHC (31.0-37.0) g/dL Sodium (137-145) mmol/L BUN (9-20) mg/dL Creatinine (0.66-1.25) mg/dL Glucose (74-99) mg/dL POC Glucose (mg/dL) 205 H 201 H 157 H (70-110) mg/dL Calcium (8.4-10.2) mg/dL Magnesium (1.6-2.3) mg/dL 01/27/24 01/27/24 01/27/24 Range/Units 06:23 06:23 11:41 RBC 3.93 L (4.30-5.90) m/uL Hgb 11.4 L (13.0-17.5) gm/dL Hct 37.7 L (39.0-53.0) % MCHC 30.1 L (31.0-37.0) g/dL Sodium 136 L (137-145) mmol/L BUN 37 H (9-20) mg/dL Creatinine 2.77 H (0.66-1.25) mg/dL Glucose 150 H (74-99) mg/dL POC Glucose (mg/dL) 190 H (70-110) mg/dL Calcium 8.3 L (8.4-10.2) mg/dL Magnesium 2.4 H (1.6-2.3) mg/dL Microbiology - Last 24 Hours (Table) 01/23/24 17:30 Blood Culture - Preliminary Blood 01/23/24 17:15 Blood Culture Gram Stain - Final Blood Blood Culture - Final Coagulase Negative Staph Molecular ID Assessment and Plan (1) Bacteremia Current Visit: Yes Status: Acute Code(s): R78.81 - BACTEREMIA SNOMED Code(s): 2278708 (2) Sepsis Current Visit: Yes Status: Acute Code(s): A41.9 - SEPSIS, UNSPECIFIED ORGANISM SNOMED Code(s): 60983703 (3) Bilateral lower leg cellulitis Current Visit: No Status: Acute Code(s): L03.116 - CELLULITIS OF LEFT LOWER LIMB; L03.115 - CELLULITIS OF RIGHT LOWER LIMB SNOMED Code(s): 917501972 (4) Ulcer of lower extremity Current Visit: No Status: Acute Code(s): L97.909 - NON-PRS CHRONIC ULC UNSP PRT OF UNSP LOW LEG W UNSP SEVERITY SNOMED Code(s): 98161086 Plan: 1patient presented to hospital with sepsis in this patient who did have fever tachycardia elevated white count source likely lower extremity cellulitis and likely from gram-positive skin birdie. 2patient with a left lower extremity ulceration likely from ruptured blister. 3coagulase-negative staph positive blood culture question of possible skin contamination versus lower extremity cellulitis and ulceration. 4blood culture has been repeated and currently pending 5patient to continue with the cefazolin and continue local wound care as ordered Dictation was produced using [employer] dictation software. please excuse any grammatical, word or spelling errors. Time with Patient: Less than 30
[2024-01-27 16:25] LABS: Glucose,Whole Blood 168 mg/dL (70-110)
--- NOTE | 2024-01-27 16:41 | P.PN ---
Subjective Progress Note Date: 01/27/24 Subjective Patient seen and examined at bedside. No acute events overnight. Pertinent positives and negatives as discussed above, a complete review of systems was performed and all other systems are negative. Vitals: Signs Reviewed Physical Exam: General: nontoxic, no distress, appears at stated age Derm: warm, dry. Bilateral venous stasis changes with skin thickening and several healing less than quarter sized ulcerations bilateral skin, no open skin lesions right, left lateral posterior calf with avulsion injury approximately 8 x 3 inches in diameter, erythema right foot with avulsion of the nail of great toe Head: atraumatic, normocephalic, symmetric Eyes: EOMI, no lid lag, anicteric sclera Mouth: no lip lesion, mucus membranes moist Cardiovascular: S1 S2 reg, no murmur, rubs, or gallops Lungs: CTA bilateral, no rhonchi, no rales, no accessory muscle use Abdominal: soft, non-tender to palpataion, no appreciable organomegaly Extremities: no gross muscle atrophy, no edema, no contractures Neuro: Alert, Oriented, CNII-XII grossly intact, gait normal Psych: well appearing, appropriate affect Data Received Today: Pertinent Labs: WBC 5.4, hemoglobin 11.4, platelet 172, sodium 136, potassium 4. 6, creatinine 2.77, magnesium 2.4, blood sugars range between [id number] Imaging: No new imaging Assessment and Plan: Sepsis secondary to cellulits d/t chronic lower extremity wounds Acute kidney injury on chronic kidney disease stage IIIa rhabdomyolysis, improving lactic acidosis, resolved leukocytosis, resolved coag negative staph bacteremia, contaminant -Repeat blood cultures pending -Continue cefazolin 2 g IV every 12 hours, consider switching to oral Keflex -ID following, continue current therapy -Discussed management with nephrology, creatinine trending down. Received 40 mg IV Lasix once today. Bladder scans have been negative. Decrease rate of IV fluids NS 50 cc/HR. Monitor for auto-diuresis Encourage oral fluid intake Large skin avulsion injury left leg -Mupirocin ointment -Cover with nonadherent dressing -Wound care following Left foot numbness, likely peripheral - CT head was negative for acute intracranial process showing CSF cleft extending from the right lateral frontal lobe possibly representing prior CVA. - Continue ASA 81 mg daily and liptior 80 mg nightly. - Possitive strong DP and PT pulses pwer doppler on left - PT/OT consultedhas poor level of function, high risk for falls, assist required for ADL. Recommended subacute rehabilitation -Discussed management with neurology, Numbness likely peripheral, recommending outpatient EMG Heart Failure with reduced ejection fraction, EF 20-25% w/o exacerbation Hypertension Dyslipidemia -Most recent echocardiogram from 05/04 with ejection fraction 20 to 25% -Home medications at baseline include Cozaar 100 mg daily, Coreg 37.5 mg twice daily, Jardiance 25 mg daily -Given extent of acute kidney injury continue to hold Jardiance and Cozaar -Continue Coreg 37.5 mg p.o. twice daily, Atorvastatin 40 mg daily and Hydralazine 25 mg p.o. 3 times daily. diabetes mellitus type 2, insulin-dependent with hyperglycemia, currently controlled -Hgb A1c completed on 01/13/2024 was 9.6 -Hold metformin given CHAVO -Continue Levemir 40 units daily Glycemic protocol with insulin subcu sliding scale insulin. Monitor for hypoglycemia COPD without exacerbation -DuoNebs 4 times daily and replacement of home Combivent inhaler -as needed albuterol -Transition home we will [place] inhaler to Symbicort inhaler Repeated falls - Pt/OT consulted. - Fall precuations Neuro following Chronic Prior DVT GERD BERTRAND Peripheral vascular disease F: 50 cc/HR E: Replete as needed N: Consistent carbohydrate diet A: Fall precautions DVT ppx: Heparin subcu Code status: Full Anticipated discharge place: Pending clinical course Anticipated discharge time: Pending clinical course I have seen and evaluated the patient today. Discussed with the resident and agree with the residents finding and plan as documented in the resident's note. Changes highlighted in blue font. Objective - Vital Signs Vital signs: Vital Signs Temp 97.4 F L 01/27/24 04:00 Pulse 65 01/27/24 04:00 Resp 18 01/27/24 04:00 BP 149/93 01/27/24 04:00 Pulse Ox 97 01/27/24 04:00 FiO2 Intake & Output 01/26/24 01/26/24 01/27/24 06:59 18:59 06:59 Intake Total 260 1218 20 Output Total 650 700 700 Balance -390 518 -680 Intake: IV 20 20 20 Invasive Line 2 20 20 20 Oral 240 1198 Output: Urine 650 700 700 Other: Voiding Method Bedside Commode Bedside Commode Bedside Commode Urinal Urinal Urinal # Bowel Movements 1 - Labs CBC & Chem 7: 01/27/24 06:23 01/27/24 06:23 Labs: Abnormal Lab Results - Last 24 Hours (Table) 01/26/24 01/26/24 01/26/24 Range/Units 06:08 06:40 11:33 Sodium 136 L (137-145) mmol/L BUN 38 H (9-20) mg/dL Creatinine 3.10 H (0.66-1.25) mg/dL Glucose 140 H (74-99) mg/dL POC Glucose (mg/dL) 143 H 161 H (70-110) mg/dL Calcium 8.0 L (8.4-10.2) mg/dL Magnesium 2.4 H (1.6-2.3) mg/dL Creatine Kinase 1453 H* (55-170) U/L 01/26/24 01/26/24 Range/Units 16:26 20:07 Sodium (137-145) mmol/L BUN (9-20) mg/dL Creatinine (0.66-1.25) mg/dL Glucose (74-99) mg/dL POC Glucose (mg/dL) 205 H 201 H (70-110) mg/dL Calcium (8.4-10.2) mg/dL Magnesium (1.6-2.3) mg/dL Creatine Kinase (55-170) U/L Microbiology - Last 24 Hours (Table) 01/23/24 17:30 Blood Culture - Preliminary Blood 01/23/24 17:15 Blood Culture Gram Stain - Final Blood Blood Culture - Final Coagulase Negative Staph Molecular ID
[2024-01-27 19:47] LABS: Glucose,Whole Blood 139 mg/dL (70-110)
[2024-01-28] MEDS: hydrALAZINE HCL 25 MG TAB PO STA (04:43)
[2024-01-28 06:08] LABS: Glucose,Whole Blood 145 mg/dL (70-110)
[2024-01-28 07:47] LABS: HCT 38.9 % (39.0-53.0); HGB 11.8 gm/dL (13.0-17.5); Hypochromasia Slight; MCH 28.3 pg (25.0-35.0); MCHC 30.4 g/dL (31.0-37.0); MCV 92.9 fL (80.0-100.0); Mean Platelet Volume 9.9; Platelet Count 219 k/uL (150-450); RBC 4.18 m/uL (4.30-5.90); RDW 14.5 % (11.5-15.5); WBC 7.4 k/uL (3.8-10.6)
[2024-01-28 08:09] LABS: African American GFR (CKD) 34 (>60 ml/min/1.73 sqM); Anion Gap 4 mmol/L; Blood Urea Nitrogen 36 mg/dL (9-20); Calcium 8.7 mg/dL (8.4-10.2); Carbon Dioxide 27 mmol/L (22-30); Chloride 106 mmol/L (98-107); Glucose 135 mg/dL (74-99); Magnesium 2.1 mg/dL (1.6-2.3); Non-African American GFR(CKD) 30 (>60 ml/min/1.73 sqM); Potassium 4.5 mmol/L (3.5-5.1); Sodium 137 mmol/L (137-145)
[2024-01-28] MEDS: amLODIPine 5 MG TAB PO SCH (10:02)
[2024-01-28 11:24] VITALS: BMI 62.3
[2024-01-28 11:24] LABS: Glucose,Whole Blood 136 mg/dL (70-110)
--- NOTE | 2024-01-28 11:48 | P.PN ---
Subjective Progress Note Date: 01/28/24 Patient is seen in follow-up for acute kidney injury on chronic kidney disease. Creatinine today is 2.38, down from 2.77 yesterday. Has been voiding. Currently on IV fluids. CK levels trending down. Renal function improved. Denies chest pain or shortness of breath. Objective - Vital Signs Vital signs: Vital Signs Temp 98.6 F 01/28/24 04:00 Pulse 69 01/28/24 04:00 Resp 14 01/28/24 04:00 BP 164/94 01/28/24 06:38 Pulse Ox 95 01/28/24 04:00 FiO2 Intake & Output 01/27/24 01/28/24 01/28/24 18:59 06:59 18:59 Intake Total 776 200 Balance 776 200 Weight 180.6 kg Intake: Oral 776 200 Other: Voiding Method Toilet Urinal # Voids 2 2 # Bowel Movements 1 - Exam Vital signs are stable. General: No acute distress. HEENT: Head exam is unremarkable. Lungs: Bilateral breath sounds present; no rhonchi, wheezes, or rales. Heart: Rate and rhythm are regular. Abdomen: Obese, nontender. Extremities: 2+ edema present bilaterally. Legs wrapped. - Labs CBC & Chem 7: 01/28/24 07:10 01/28/24 07:10 Labs: Abnormal Lab Results - Last 24 Hours (Table) 01/27/24 01/27/24 01/27/24 Range/Units 11:41 16:23 19:42 RBC (4.30-5.90) m/uL Hgb (13.0-17.5) gm/dL Hct (39.0-53.0) % MCHC (31.0-37.0) g/dL BUN (9-20) mg/dL Creatinine (0.66-1.25) mg/dL Glucose (74-99) mg/dL POC Glucose (mg/dL) 190 H 168 H 139 H (70-110) mg/dL 01/28/24 01/28/24 01/28/24 Range/Units 06:06 07:10 07:10 RBC 4.18 L (4.30-5.90) m/uL Hgb 11.8 L (13.0-17.5) gm/dL Hct 38.9 L (39.0-53.0) % MCHC 30.4 L (31.0-37.0) g/dL BUN 36 H (9-20) mg/dL Creatinine 2.38 H (0.66-1.25) mg/dL Glucose 135 H (74-99) mg/dL POC Glucose (mg/dL) 145 H (70-110) mg/dL Microbiology - Last 24 Hours (Table) 01/26/24 10:26 Blood Culture - Preliminary Blood 01/26/24 10:25 Blood Culture - Preliminary Blood Assessment and Plan Assessment: 1. Acute kidney injury secondary to ATN secondary to severe sepsis, hypotension, rhabdomyolysis. Creatinine peaked at 3.36 this admission and is 2.38 today. No hydronephrosis noted on kidney ultrasound. 2. Chronic kidney disease stage IIIa with baseline creatinine 1.3-1.5 secondary to diabetic kidney disease. 3. Rhabdomyolysis secondary to fall and immobility. CK levels trending down. 4. Diabetes mellitus. 5. Chronic systolic CHF with ejection fraction of 20 to 25%. 6. Coronary disease with prior stent placement. 7. Lower extremity wounds. 8. Gram-positive bacteremia. On antibiotics. Plan: Resume Bumex 1 mg daily. Stop IV fluids. Continue antibiotics, as per primary. Repeat labs in the morning. Avoid nephrotoxins. Continue to monitor renal function and urine output. Strict I's and O's. Bladder scans have been negative. I have seen and examined the patient with the resident and agree with the assessment and plan. Advised patient to maintain low-salt diet and fluid restriction of less than 50 ounces per day. Resume Bumex. Follow-up outpatient 1 week postdischarge.
[2024-01-28] MEDS: BUMETANIDE 1 MG TAB PO SCH (12:09)
--- NOTE | 2024-01-28 14:53 | P.PN ---
Subjective Progress Note Date: 01/28/24 Principal diagnosis: Reason for follow-up is left lower extremity ulcer cellulitis and positive blood culture Patient is a 54-year-old male with a past medical history significant for diabetes mellitus hypertension hyperlipidemia DVT coronary artery disease patient has been brought in the hospital for evaluation generalized weakness and fever, patient did have ulceration to the left lower extremity and a positive blood culture prompting this consultation. On today's evaluation that is 01/28/2024, Patient is afebrile patient is currently on room air and denies having any shortness of breath, the patient denies any chest pain or cough, the patient denies any nausea vomiting did not have any abdominal pain and no diarrhea denies pain to the left lower extremity Patient white count 7.4, creatinine is 2.38 blood culture repeat has been negative Objective - Vital Signs Vital signs: Vital Signs Temp 98.9 F 01/28/24 08:39 Pulse 66 01/28/24 14:34 Resp 16 01/28/24 14:34 BP 144/87 01/28/24 12:06 Pulse Ox 94 L 01/28/24 12:06 FiO2 Intake & Output 01/27/24 01/28/24 01/28/24 18:59 06:59 18:59 Intake Total 776 200 608 Balance 776 200 608 Weight 180.6 kg 180.6 kg Intake: Oral 776 200 608 Other: Voiding Method Toilet Toilet Urinal Urinal # Voids 2 2 1 # Bowel Movements 1 1 - Exam GENERAL DESCRIPTION: Middle-age male up in bed in no distress RESPIRATORY SYSTEM: Unlabored breathing , decreased breath sounds at bases HEART: S1 S2 regular rate and rhythm , ABDOMEN: Soft , no tenderness EXTREMITIES: Diffuse and bilateral extremity ulceration to the left leg no drainage - Labs CBC & Chem 7: 01/28/24 07:10 01/28/24 07:10 Labs: Abnormal Lab Results - Last 24 Hours (Table) 01/27/24 01/27/24 01/28/24 Range/Units 16:23 19:42 06:06 RBC (4.30-5.90) m/uL Hgb (13.0-17.5) gm/dL Hct (39.0-53.0) % MCHC (31.0-37.0) g/dL BUN (9-20) mg/dL Creatinine (0.66-1.25) mg/dL Glucose (74-99) mg/dL POC Glucose (mg/dL) 168 H 139 H 145 H (70-110) mg/dL 01/28/24 01/28/24 01/28/24 Range/Units 07:10 07:10 11:22 RBC 4.18 L (4.30-5.90) m/uL Hgb 11.8 L (13.0-17.5) gm/dL Hct 38.9 L (39.0-53.0) % MCHC 30.4 L (31.0-37.0) g/dL BUN 36 H (9-20) mg/dL Creatinine 2.38 H (0.66-1.25) mg/dL Glucose 135 H (74-99) mg/dL POC Glucose (mg/dL) 136 H (70-110) mg/dL Microbiology - Last 24 Hours (Table) 01/26/24 10:26 Blood Culture - Preliminary Blood 01/26/24 10:25 Blood Culture - Preliminary Blood Assessment and Plan (1) Bacteremia Current Visit: Yes Status: Acute Code(s): R78.81 - BACTEREMIA SNOMED Code(s): 6927690 (2) Sepsis Current Visit: Yes Status: Acute Code(s): A41.9 - SEPSIS, UNSPECIFIED ORGANISM SNOMED Code(s): 66175652 (3) Bilateral lower leg cellulitis Current Visit: No Status: Acute Code(s): L03.116 - CELLULITIS OF LEFT LOWER LIMB; L03.115 - CELLULITIS OF RIGHT LOWER LIMB SNOMED Code(s): 772072546 (4) Ulcer of lower extremity Current Visit: No Status: Acute Code(s): L97.909 - NON-PRS CHRONIC ULC UNSP PRT OF UNSP LOW LEG W UNSP SEVERITY SNOMED Code(s): 50112815 Plan: 1patient presented to hospital with sepsis in this patient who did have fever tachycardia elevated white count source likely lower extremity cellulitis and likely from gram-positive skin birdie. 2patient with a left lower extremity ulceration likely from ruptured blister. 3coagulase-negative staph positive blood culture question of possible skin contamination versus lower extremity cellulitis and ulceration. 4blood culture repeat has been negative 5patient to continue with the cefazolin and finishing therapy with oral Keflex Dictation was produced using [employer] dictation software. please excuse any grammatical, word or spelling errors. Time with Patient: Less than 30
--- NOTE | 2024-01-28 15:19 | P.PN ---
Subjective Progress Note Date: 01/28/24 Subjective Patient seen and examined at bedside. No acute events overnight. Patient states numbness is improving. Pertinent positives and negatives as discussed above, a complete review of systems was performed and all other systems are negative. Vitals: Signs Reviewed Physical Exam: General: nontoxic, no distress, appears at stated age Derm: warm, dry. Bilateral venous stasis changes with skin thickening and several healing less than quarter sized ulcerations bilateral skin, no open skin lesions right, left lateral posterior calf with avulsion injury approximately 8 x 3 inches in diameter, erythema right foot with avulsion of the nail of great toe Head: atraumatic, normocephalic, symmetric Eyes: EOMI, no lid lag, anicteric sclera Mouth: no lip lesion, mucus membranes moist Cardiovascular: S1 S2 reg, no murmur, rubs, or gallops Lungs: CTA bilateral, no rhonchi, no rales, no accessory muscle use Abdominal: soft, non-tender to palpataion, no appreciable organomegaly Extremities: no gross muscle atrophy, no edema, no contractures Neuro: Alert, Oriented, CNII-XII grossly intact, gait normal Psych: well appearing, appropriate affect Data Received Today: Pertinent Labs: WBC 7.4, hemoglobin 11.8, platelet 219, sodium 136, potassium 4. 6, creatinine 2.38, magnesium 2. 1, blood sugars range between [id number] Imaging: No new imaging Assessment and Plan: Patient is a 54-year-old male with a past medical history of CAD status post cardiac arrest, ischemic cardiomyopathy with chronic systolic heart failure with EF of 20-25%, hypertension, hyperlipidemia, COPD, insulin-dependent diabetes mellitus, and chronic venous stasis dermatitis presents with sepsis secondary to cellulitis Sepsis secondary to cellulits d/t chronic lower extremity wounds Acute kidney injury on chronic kidney disease stage IIIa rhabdomyolysis, improving lactic acidosis, resolved leukocytosis, resolved coag negative staph bacteremia, contaminant -Repeat blood cultures pending -Discontinued cefazolin 2 g IV every 12 hours, switch to oral Keflex 500 mg PO 3 times daily. -ID following, continue current therapy -Discussed management with nephrology, creatinine trending down. IV fluids discontinued. Continue Bumex 1 mg daily. Bladder scans have been negative. Monitor for auto-diuresis Encourage oral fluid intake Large skin avulsion injury left leg -Mupirocin ointment -Cover with nonadherent dressing -Wound care following Left foot numbness, likely peripheral - CT head was negative for acute intracranial process showing CSF cleft extending from the right lateral frontal lobe possibly representing prior CVA. - Continue ASA 81 mg daily and liptior 80 mg nightly. - Possitive strong DP and PT pulses pwer doppler on left - PT/OT consultedhas poor level of function, high risk for falls, assist required for ADL. Recommended subacute rehabilitation -Neurology following, Numbness likely peripheral, recommending outpatient EMG States numbness is improving Heart Failure with reduced ejection fraction, EF 20-25% w/o exacerbation Hypertension Dyslipidemia -Most recent echocardiogram from 05/04 with ejection fraction 20 to 25% -Home medications at baseline include Cozaar 100 mg daily, Coreg 37.5 mg twice daily, Jardiance 25 mg daily -Given extent of acute kidney injury continue to hold Jardiance and Cozaar -Continue Coreg 37.5 mg p.o. twice daily, Atorvastatin 40 mg daily and Hydralazine 25 mg p.o. 3 times daily. -Added amlodipine 5 mg daily -Bumex resumed 1 mg daily per nephrology Diabetes mellitus type 2, insulin-dependent with hyperglycemia, currently controlled -Hgb A1c completed on 01/13/2024 was 9.6 -Hold metformin given CHAVO -Continue Levemir 40 units daily Glycemic protocol with insulin subcu sliding scale insulin. Monitor for hypoglycemia COPD without exacerbation -DuoNebs 4 times daily and replacement of home Combivent inhaler -as needed albuterol -Transition home we will Baldo inhaler to Symbicort inhaler Repeated falls - Pt/OT consulted. - Fall precuations Neuro following Chronic Prior DVT GERD BERTRAND Peripheral vascular disease F: 50 cc/HR E: Replete as needed N: Consistent carbohydrate diet A: Fall precautions DVT ppx: Heparin subcu Code status: Full Anticipated discharge place: Pending clinical course Anticipated discharge time: Pending clinical course I have seen and evaluated the patient today. Discussed with the resident and agree with the residents finding and plan as documented in the resident's note. Changes highlighted in blue font. Objective - Vital Signs Vital signs: Vital Signs Temp 98.6 F 01/28/24 04:00 Pulse 69 01/28/24 04:00 Resp 14 01/28/24 04:00 BP 168/115 01/28/24 04:00 Pulse Ox 95 01/28/24 04:00 FiO2 Intake & Output 01/27/24 01/27/24 01/28/24 06:59 18:59 06:59 Intake Total 20 776 Output Total 700 Balance -680 776 Weight 160.5 kg 180.6 kg Intake: IV 20 Invasive Line 2 20 Oral 776 Output: Urine 700 Other: Voiding Method Bedside Commode Toilet Urinal Urinal # Voids 2 # Bowel Movements 1 - Labs CBC & Chem 7: 01/28/24 07:10 01/28/24 07:10 Labs: Abnormal Lab Results - Last 24 Hours (Table) 01/27/24 01/27/24 01/27/24 Range/Units 06:05 06:23 06:23 RBC 3.93 L (4.30-5.90) m/uL Hgb 11.4 L (13.0-17.5) gm/dL Hct 37.7 L (39.0-53.0) % MCHC 30.1 L (31.0-37.0) g/dL Sodium 136 L (137-145) mmol/L BUN 37 H (9-20) mg/dL Creatinine 2.77 H (0.66-1.25) mg/dL Glucose 150 H (74-99) mg/dL POC Glucose (mg/dL) 157 H (70-110) mg/dL Calcium 8.3 L (8.4-10.2) mg/dL Magnesium 2.4 H (1.6-2.3) mg/dL 01/27/24 01/27/24 01/27/24 Range/Units 11:41 16:23 19:42 RBC (4.30-5.90) m/uL Hgb (13.0-17.5) gm/dL Hct (39.0-53.0) % MCHC (31.0-37.0) g/dL Sodium (137-145) mmol/L BUN (9-20) mg/dL Creatinine (0.66-1.25) mg/dL Glucose (74-99) mg/dL POC Glucose (mg/dL) 190 H 168 H 139 H (70-110) mg/dL Calcium (8.4-10.2) mg/dL Magnesium (1.6-2.3) mg/dL Microbiology - Last 24 Hours (Table) 01/26/24 10:26 Blood Culture - Preliminary Blood 01/26/24 10:25 Blood Culture - Preliminary Blood
[2024-01-28] MEDS: CEPHALEXIN 500 MG CAP PO SCH (16:30)
[2024-01-28 16:59] LABS: Glucose,Whole Blood 151 mg/dL (70-110)
[2024-01-28 20:21] LABS: Glucose,Whole Blood 175 mg/dL (70-110)
[2024-01-28] MEDS: hydrALAZINE HCL 50 MG TAB PO STA (23:02)
[2024-01-29 05:51] LABS: Glucose,Whole Blood 128 mg/dL (70-110)
[2024-01-29 07:34] LABS: HCT 34.5 % (39.0-53.0); HGB 10.8 gm/dL (13.0-17.5); Hypochromasia Moderate; MCH 28.6 pg (25.0-35.0); MCHC 31.2 g/dL (31.0-37.0); MCV 91.6 fL (80.0-100.0); Mean Platelet Volume 8.6; Platelet Count 252 k/uL (150-450); RBC 3.77 m/uL (4.30-5.90); RDW 14.5 % (11.5-15.5); WBC 6.1 k/uL (3.8-10.6)
[2024-01-29 08:08] LABS: African American GFR (CKD) 42 (>60 ml/min/1.73 sqM); Anion Gap 0 mmol/L; Blood Urea Nitrogen 36 mg/dL (9-20); Calcium 8.4 mg/dL (8.4-10.2); Carbon Dioxide 29 mmol/L (22-30); Chloride 109 mmol/L (98-107); Glucose 121 mg/dL (74-99); Magnesium 1.9 mg/dL (1.6-2.3); Non-African American GFR(CKD) 37 (>60 ml/min/1.73 sqM); Potassium 4.5 mmol/L (3.5-5.1); Sodium 138 mmol/L (137-145)
--- NOTE | 2024-01-29 10:55 | P.PN ---
Subjective Patient is seen in follow-up for acute kidney injury on chronic kidney disease. renal function improving. Has been voiding. off IV fluids. On Bumex. Objective - Vital Signs Vital signs: Vital Signs Temp 98.5 F 01/29/24 08:24 Pulse 63 01/29/24 09:34 Resp 18 01/29/24 09:34 BP 139/83 01/29/24 08:24 Pulse Ox 93 L 01/29/24 08:24 FiO2 Intake & Output 01/28/24 01/29/24 01/29/24 18:59 06:59 18:59 Intake Total 728 180 Balance 728 180 Weight 180.6 kg 159.4 kg Intake: Oral 728 180 Other: Voiding Method Toilet Toilet Toilet Urinal Urinal Urinal # Voids 1 # Bowel Movements 1 - Labs CBC & Chem 7: 01/29/24 07:10 01/29/24 07:10 Labs: Abnormal Lab Results - Last 24 Hours (Table) 01/28/24 01/28/24 01/28/24 Range/Units 11:22 16:58 20:15 RBC (4.30-5.90) m/uL Hgb (13.0-17.5) gm/dL Hct (39.0-53.0) % Chloride (98-107) mmol/L BUN (9-20) mg/dL Creatinine (0.66-1.25) mg/dL Glucose (74-99) mg/dL POC Glucose (mg/dL) 136 H 151 H 175 H (70-110) mg/dL 01/29/24 01/29/24 01/29/24 Range/Units 05:50 07:10 07:10 RBC 3.77 L (4.30-5.90) m/uL Hgb 10.8 L (13.0-17.5) gm/dL Hct 34.5 L (39.0-53.0) % Chloride 109 H (98-107) mmol/L BUN 36 H (9-20) mg/dL Creatinine 2.01 H (0.66-1.25) mg/dL Glucose 121 H (74-99) mg/dL POC Glucose (mg/dL) 128 H (70-110) mg/dL Microbiology - Last 24 Hours (Table) 01/23/24 17:30 Blood Culture - Final Blood 01/26/24 10:26 Blood Culture - Preliminary Blood 01/26/24 10:25 Blood Culture - Preliminary Blood Assessment and Plan Assessment: 1. Acute kidney injury secondary to ATN secondary to severe sepsis, hypotension, rhabdomyolysis. Creatinine peaked at 3.36 this admission and is 2.01 today. No hydronephrosis noted on kidney ultrasound. 2. Chronic kidney disease stage IIIa with baseline creatinine 1.3-1.5 secondary to diabetic kidney disease. 3. Rhabdomyolysis secondary to fall and immobility. CK levels trending down. 4. Diabetes mellitus. 5. Chronic systolic CHF with ejection fraction of 20 to 25%. 6. Coronary disease with prior stent placement. 7. Lower extremity wounds. 8. Gram-positive bacteremia. On po antibiotics. Plan: maintain Bumex. Avoid nephrotoxins. Continue to monitor renal function and urine output. Strict I's and O's. Bladder scans have been negative. Advised patient to maintain low-salt diet and fluid restriction of less than 50 ounces per day. Follow-up outpatient 1 week postdischarge.
[2024-01-29 11:50] LABS: Glucose,Whole Blood 183 mg/dL (70-110)
--- NOTE | 2024-01-29 15:44 | P.PN ---
Subjective Progress Note Date: 01/29/24 Principal diagnosis: Reason for follow-up is left lower extremity ulcer cellulitis and positive blood culture Patient is a 54-year-old male with a past medical history significant for diabetes mellitus hypertension hyperlipidemia DVT coronary artery disease patient has been brought in the hospital for evaluation generalized weakness and fever, patient did have ulceration to the left lower extremity and a positive blood culture prompting this consultation. On today's evaluation that is 01/29/2024, patient has been afebrile, patient is breathing comfortably and is currently on room air, patient denies having any significant cough no chest pain shortness of breath, patient denies nausea vomiting or diarrhea and no abdominal pain patient denies any pain to the left lower extremity wound area. Patient white count 6.1, creatinine 2.01, blood culture repeat has been negative so far Objective - Vital Signs Vital signs: Vital Signs Temp 98.5 F 01/29/24 08:24 Pulse 76 01/29/24 12:04 Resp 18 01/29/24 11:17 BP 157/88 01/29/24 11:17 Pulse Ox 98 01/29/24 11:17 FiO2 Intake & Output 01/28/24 01/29/24 01/29/24 18:59 06:59 18:59 Intake Total 728 360 Balance 728 360 Weight 180.6 kg 159.4 kg Intake: Oral 728 360 Other: Voiding Method Toilet Toilet Toilet Urinal Urinal Urinal # Voids 1 # Bowel Movements 1 - Exam GENERAL DESCRIPTION: Middle-age male up in bed in no distress RESPIRATORY SYSTEM: Unlabored breathing , decreased breath sounds at bases HEART: S1 S2 regular rate and rhythm , ABDOMEN: Soft , no tenderness EXTREMITIES: Diffuse and bilateral extremity ulceration to the left leg no drainage - Labs CBC & Chem 7: 01/29/24 07:10 01/29/24 07:10 Labs: Abnormal Lab Results - Last 24 Hours (Table) 01/28/24 01/28/24 01/29/24 Range/Units 16:58 20:15 05:50 RBC (4.30-5.90) m/uL Hgb (13.0-17.5) gm/dL Hct (39.0-53.0) % Chloride (98-107) mmol/L BUN (9-20) mg/dL Creatinine (0.66-1.25) mg/dL Glucose (74-99) mg/dL POC Glucose (mg/dL) 151 H 175 H 128 H (70-110) mg/dL 01/29/24 01/29/24 01/29/24 Range/Units 07:10 07:10 11:48 RBC 3.77 L (4.30-5.90) m/uL Hgb 10.8 L (13.0-17.5) gm/dL Hct 34.5 L (39.0-53.0) % Chloride 109 H (98-107) mmol/L BUN 36 H (9-20) mg/dL Creatinine 2.01 H (0.66-1.25) mg/dL Glucose 121 H (74-99) mg/dL POC Glucose (mg/dL) 183 H (70-110) mg/dL Microbiology - Last 24 Hours (Table) 01/23/24 17:30 Blood Culture - Final Blood 01/26/24 10:26 Blood Culture - Preliminary Blood 01/26/24 10:25 Blood Culture - Preliminary Blood Assessment and Plan (1) Bacteremia Current Visit: Yes Status: Acute Code(s): R78.81 - BACTEREMIA SNOMED Code(s): 6176451 (2) Sepsis Current Visit: Yes Status: Acute Code(s): A41.9 - SEPSIS, UNSPECIFIED ORGANISM SNOMED Code(s): 08395225 (3) Bilateral lower leg cellulitis Current Visit: No Status: Acute Code(s): L03.116 - CELLULITIS OF LEFT LOWER LIMB; L03.115 - CELLULITIS OF RIGHT LOWER LIMB SNOMED Code(s): 338106101 (4) Ulcer of lower extremity Current Visit: No Status: Acute Code(s): L97.909 - NON-PRS CHRONIC ULC UNSP PRT OF UNSP LOW LEG W UNSP SEVERITY SNOMED Code(s): 54226325 Plan: 1patient presented to hospital with sepsis in this patient who did have fever tachycardia elevated white count source likely lower extremity cellulitis and likely from gram-positive skin birdie. 2patient with a left lower extremity ulceration likely from ruptured blister. 3coagulase-negative staph positive blood culture question of possible skin contamination versus lower extremity cellulitis and ulceration. 4blood culture repeat has been negative 5patient has shown some clinical improvement is afebrile white count is normal, patient to continue with the cefazolin and finishing therapy with oral Keflex Dictation was produced using [employer] dictation software. please excuse any grammatical, word or spelling errors. Time with Patient: Less than 30
--- NOTE | 2024-01-29 16:06 | P.PN ---
Subjective Progress Note Date: 01/29/24 Subjective Patient seen and examined at bedside. No acute events overnight. Patient states numbness is improving. Pertinent positives and negatives as discussed above, a complete review of systems was performed and all other systems are negative. Vitals: Signs Reviewed Physical Exam: General: nontoxic, no distress, appears at stated age Derm: warm, dry. Bilateral venous stasis changes with skin thickening and several healing less than quarter sized ulcerations bilateral skin, no open skin lesions right, left lateral posterior calf with avulsion injury approximately 8 x 3 inches in diameter, erythema right foot with avulsion of the nail of great toe Head: atraumatic, normocephalic, symmetric Eyes: EOMI, no lid lag, anicteric sclera Mouth: no lip lesion, mucus membranes moist Cardiovascular: S1 S2 reg, no murmur, rubs, or gallops Lungs: CTA bilateral, no rhonchi, no rales, no accessory muscle use Abdominal: soft, non-tender to palpataion, no appreciable organomegaly Extremities: no gross muscle atrophy, no edema, no contractures Neuro: Alert, Oriented, CNII-XII grossly intact, gait normal Psych: well appearing, appropriate affect Data Received Today: Pertinent Labs: WBC 6.1, hemoglobin 10.8, platelet 252, sodium 138, potassium 4.5, magnesium 1.9, creatinine 2.01, blood sugars range between 121--183 Imaging: No new imaging Assessment and Plan: Patient is a 54-year-old male with a past medical history of CAD status post cardiac arrest, ischemic cardiomyopathy with chronic systolic heart failure with EF of 20-25%, hypertension, hyperlipidemia, COPD, insulin-dependent diabetes mellitus, and chronic venous stasis dermatitis presents with sepsis secondary to cellulitis Sepsis secondary to cellulits d/t chronic lower extremity wounds Acute kidney injury on chronic kidney disease stage IIIa, improving rhabdomyolysis, improving lactic acidosis, resolved leukocytosis, resolved coag negative staph bacteremia, contaminant -Repeat blood cultures pending -Discontinued cefazolin 2 g IV every 12 hours, continue on oral Keflex 500 mg PO 3 times daily. -ID following, continue current therapy -nephrology note reviewed, creatinine trending down. IV fluids discontinued. Continue Bumex 1 mg daily. Maintain low salt diet <50 oz/day. Bladder scans have been negative. Large skin avulsion injury left leg -Mupirocin ointment -Cover with nonadherent dressing -Wound care following Left foot numbness, likely peripheral - CT head was negative for acute intracranial process showing CSF cleft extending from the right lateral frontal lobe possibly representing prior CVA. - Continue ASA 81 mg daily and liptior 80 mg nightly. - Possitive strong DP and PT pulses pwer doppler on left - PT/OT consultedhas poor level of function, high risk for falls, assist required for ADL. Recommended subacute rehabilitation -Neurology following, Numbness likely peripheral, recommending outpatient EMG States numbness is improving Heart Failure with reduced ejection fraction, EF 20-25% w/o exacerbation Hypertension Dyslipidemia -Most recent echocardiogram from 05/04 with ejection fraction 20 to 25% -Home medications at baseline include Cozaar 100 mg daily, Coreg 37.5 mg twice daily, Jardiance 25 mg daily -Given extent of acute kidney injury continue to hold Jardiance and Cozaar -Continue Coreg 37.5 mg p.o. twice daily, Atorvastatin 40 mg daily and Hydralazi ne 25 mg p.o. 3 times daily. -continue amlodipine 5 mg daily -continue Bumex 1 mg daily per nephrology -resumed home med of hydralazine 25 mg PO TID d/t recent high blood pressure Diabetes mellitus type 2, insulin-dependent with hyperglycemia, currently controlled -Hgb A1c completed on 01/13/2024 was 9.6 -Hold metformin given CHAVO -Continue Levemir 40 units daily Glycemic protocol with insulin subcu sliding scale insulin. Monitor for hypoglycemia COPD without exacerbation -DuoNebs 4 times daily and replacement of home Combivent inhaler -as needed albuterol -Transition home we will Baldo inhaler to Symbicort inhaler Repeated falls - Pt/OT consulted. - Fall precuations Neuro following Chronic Prior DVT GERD BERTRAND Peripheral vascular disease F: n/a E: Replete as needed N: Consistent carbohydrate diet A: Fall precautions DVT ppx: Heparin subcu Code status: Full Anticipated discharge place: subacute rehab Anticipated discharge time: Pending bed availability I have seen and evaluated the patient today. Discussed with the resident and agree with the residents finding and plan as documented in the resident's note. Changes highlighted in blue font. Objective - Vital Signs Vital signs: Vital Signs Temp 98.5 F 01/29/24 04:00 Pulse 63 01/29/24 04:00 Resp 14 01/29/24 04:00 BP 180/84 01/29/24 04:00 Pulse Ox 97 01/29/24 04:00 FiO2 Intake & Output 01/28/24 01/28/24 01/29/24 06:59 18:59 06:59 Intake Total 200 728 Balance 200 728 Weight 180.6 kg 180.6 kg 159.4 kg Intake: Oral 200 728 Other: Voiding Method Toilet Toilet Toilet Urinal Urinal Urinal # Voids 2 1 # Bowel Movements 1 - Labs CBC & Chem 7: 01/29/24 07:10 01/29/24 07:10 Labs: Abnormal Lab Results - Last 24 Hours (Table) 01/28/24 01/28/24 01/28/24 Range/Units 07:10 07:10 11:22 RBC 4.18 L (4.30-5.90) m/uL Hgb 11.8 L (13.0-17.5) gm/dL Hct 38.9 L (39.0-53.0) % MCHC 30.4 L (31.0-37.0) g/dL BUN 36 H (9-20) mg/dL Creatinine 2.38 H (0.66-1.25) mg/dL Glucose 135 H (74-99) mg/dL POC Glucose (mg/dL) 136 H (70-110) mg/dL 01/28/24 01/28/24 01/29/24 Range/Units 16:58 20:15 05:50 RBC (4.30-5.90) m/uL Hgb (13.0-17.5) gm/dL Hct (39.0-53.0) % MCHC (31.0-37.0) g/dL BUN (9-20) mg/dL Creatinine (0.66-1.25) mg/dL Glucose (74-99) mg/dL POC Glucose (mg/dL) 151 H 175 H 128 H (70-110) mg/dL Microbiology - Last 24 Hours (Table) 01/23/24 17:30 Blood Culture - Final Blood 01/26/24 10:26 Blood Culture - Preliminary Blood 01/26/24 10:25 Blood Culture - Preliminary Blood
[2024-01-29 16:30] LABS: Glucose,Whole Blood 209 mg/dL (70-110)
[2024-01-29] MEDS: hydrALAZINE HCL 25 MG TAB PO SCH (16:53)
[2024-01-29 20:45] LABS: Glucose,Whole Blood 179 mg/dL (70-110)
[2024-01-30 06:26] LABS: Glucose,Whole Blood 147 mg/dL (70-110)
[2024-01-30 07:29] LABS: African American GFR (CKD) 47 (>60 ml/min/1.73 sqM); Anion Gap 4 mmol/L; Blood Urea Nitrogen 34 mg/dL (9-20); Calcium 8.6 mg/dL (8.4-10.2); Carbon Dioxide 28 mmol/L (22-30); Chloride 106 mmol/L (98-107); Glucose 121 mg/dL (74-99); Non-African American GFR(CKD) 41 (>60 ml/min/1.73 sqM); Potassium 4.5 mmol/L (3.5-5.1); Sodium 138 mmol/L (137-145)
[2024-01-30] MEDS: amLODIPine 10 MG TAB PO SCH (10:02)
--- NOTE | 2024-01-30 11:21 | P.PN ---
Subjective Progress Note Date: 01/30/24 Subjective: Patient seen and examined at bedside. No acute events overnight. Pertinent positives and negatives as discussed above, a complete review of systems was performed and all other systems are negative. Vitals: Signs Reviewed Physical Exam: General: nontoxic, no distress, appears at stated age Derm: warm, dry. Bilateral venous stasis changes with skin thickening and several healing less than quarter sized ulcerations bilateral skin, no open skin lesions right, left lateral posterior calf with avulsion injury approximately 8 x 3 inches in diameter, erythema right foot with avulsion of the nail of great toe Head: atraumatic, normocephalic, symmetric Eyes: EOMI, no lid lag, anicteric sclera Mouth: no lip lesion, mucus membranes moist Cardiovascular: S1 S2 reg, no murmur, rubs, or gallops Lungs: CTA bilateral, no rhonchi, no rales, no accessory muscle use Abdominal: soft, non-tender to palpataion, no appreciable organomegaly Extremities: no gross muscle atrophy, no edema, no contractures Neuro: Alert, Oriented, CNII-XII grossly intact, gait normal Psych: well appearing, appropriate affect Data Received Today: Pertinent Labs: sodium 138, potassium 4.5, creatinine 1.85, blood sugars range between 121--147 Imaging: No new imaging Assessment and Plan: Patient is a 54-year-old male with a past medical history of CAD status post cardiac arrest, ischemic cardiomyopathy with chronic systolic heart failure with EF of 20-25%, hypertension, hyperlipidemia, COPD, insulin-dependent diabetes mellitus, and chronic venous stasis dermatitis presents with sepsis secondary to cellulitis Sepsis secondary to cellulits d/t chronic lower extremity wounds Acute kidney injury on chronic kidney disease stage IIIa, improving rhabdomyolysis, improving lactic acidosis, resolved leukocytosis, resolved coag negative staph bacteremia, contaminant -Repeat blood cultures pending -Discontinued cefazolin 2 g IV every 12 hours, continue on oral Keflex 500 mg PO 3 times daily. -ID following, continue current therapy -nephrology following, creatinine trending down. IV fluids discontinued. Continue Bumex 1 mg daily. Maintain low salt diet <50 oz/day. Bladder scans have been negative. Large skin avulsion injury left leg -Mupirocin ointment -Cover with nonadherent dressing -Wound care following Left foot numbness, likely peripheral - CT head was negative for acute intracranial process showing CSF cleft extending from the right lateral frontal lobe possibly representing prior CVA. - Continue ASA 81 mg daily and liptior 80 mg nightly. - Possitive strong DP and PT pulses pwer doppler on left - PT/OT consultedhas poor level of function, high risk for falls, assist required for ADL. Recommended subacute rehabilitation -Neurology following, Numbness likely peripheral, recommending outpatient EMG States numbness is improving Heart Failure with reduced ejection fraction, EF 20-25% w/o exacerbation Hypertension Dyslipidemia -Most recent echocardiogram from 05/04 with ejection fraction 20 to 25% -Home medications at baseline include Cozaar 100 mg daily, Coreg 37.5 mg twice daily, Jardiance 25 mg daily -Given extent of acute kidney injury continue to hold Jardiance and Cozaar -Continue Coreg 37.5 mg p.o. twice daily, Atorvastatin 40 mg daily and Hydralazine 25 mg p.o. 3 times daily. -increased dosage of amlodipine to 10 mg daily -continue Bumex 1 mg daily per nephrology -resumed home med of hydralazine 25 mg PO TID d/t recent high blood pressure Diabetes mellitus type 2, insulin-dependent with hyperglycemia, currently cont rolled -Hgb A1c completed on 01/13/2024 was 9.6 -Hold metformin given CHAVO -Continue Levemir 40 units daily Glycemic protocol with insulin subcu sliding scale insulin. Monitor for hypoglycemia COPD without exacerbation -DuoNebs 4 times daily and replacement of home Combivent inhaler -as needed albuterol -Transition home we will [place] inhaler to Symbicort inhaler Repeated falls - Pt/OT consulted. - Fall precuations Neuro following Chronic Prior DVT GERD BERTRAND Peripheral vascular disease F: n/a E: Replete as needed N: Consistent carbohydrate diet A: Fall precautions DVT ppx: Heparin subcu Code status: Full Anticipated discharge place: subacute rehab Anticipated discharge time: Pending bed availability I have seen and evaluated the patient today. Discussed with the resident and agree with the residents finding and plan as documented in the resident's note. Changes highlighted in blue font. Objective - Vital Signs Vital signs: Vital Signs Temp 98.7 F 01/30/24 04:00 Pulse 64 01/30/24 04:00 Resp 18 01/30/24 04:00 BP 155/88 01/30/24 04:00 Pulse Ox 95 01/30/24 04:00 FiO2 Intake & Output 01/29/24 01/29/24 01/30/24 06:59 18:59 06:59 Intake Total 540 221 Balance 540 221 Weight 159.4 kg 158.5 kg Intake: Oral 540 221 Other: Voiding Method Toilet Toilet Toilet Urinal Urinal Urinal - Labs CBC & Chem 7: 01/29/24 07:10 01/30/24 06:51 Labs: Abnormal Lab Results - Last 24 Hours (Table) 01/29/24 01/29/24 01/29/24 Range/Units 07:10 07:10 11:48 RBC 3.77 L (4.30-5.90) m/uL Hgb 10.8 L (13.0-17.5) gm/dL Hct 34.5 L (39.0-53.0) % Chloride 109 H (98-107) mmol/L BUN 36 H (9-20) mg/dL Creatinine 2.01 H (0.66-1.25) mg/dL Glucose 121 H (74-99) mg/dL POC Glucose (mg/dL) 183 H (70-110) mg/dL 01/29/24 01/29/24 Range/Units 16:28 20:43 RBC (4.30-5.90) m/uL Hgb (13.0-17.5) gm/dL Hct (39.0-53.0) % Chloride (98-107) mmol/L BUN (9-20) mg/dL Creatinine (0.66-1.25) mg/dL Glucose (74-99) mg/dL POC Glucose (mg/dL) 209 H 179 H (70-110) mg/dL Microbiology - Last 24 Hours (Table) 01/26/24 10:26 Blood Culture - Preliminary Blood 01/26/24 10:25 Blood Culture - Preliminary Blood
[2024-01-30 11:41] LABS: Glucose,Whole Blood 171 mg/dL (70-110)
--- NOTE | 2024-01-30 13:06 | P.PN ---
Subjective Progress Note Date: 01/30/24 Patient is seen in follow-up for acute kidney injury on chronic kidney disease. Renal function improving. No new complaints. Vital signs are stable. General: No acute distress. HEENT: Head exam is unremarkable. LUNGS: No acute distress. HEART: Rate and Rhythm are regular. ABDOMEN: Nontender. EXTREMITITES: No edema. Objective - Vital Signs Vital signs: Vital Signs Temp 98.5 F 01/30/24 12:43 Pulse 64 01/30/24 12:43 Resp 16 01/30/24 12:43 BP 196/93 01/30/24 12:43 Pulse Ox 96 01/30/24 12:43 FiO2 Intake & Output 01/29/24 01/30/24 01/30/24 18:59 06:59 18:59 Intake Total 540 421 236 Balance 540 421 236 Weight 158.5 kg Intake: Oral 540 421 236 Other: Voiding Method Toilet Toilet Toilet Urinal Urinal Urinal - Labs CBC & Chem 7: 01/29/24 07:10 01/30/24 06:51 Labs: Abnormal Lab Results - Last 24 Hours (Table) 01/29/24 01/29/24 01/30/24 Range/Units 16:28 20:43 06:24 BUN (9-20) mg/dL Creatinine (0.66-1.25) mg/dL Glucose (74-99) mg/dL POC Glucose (mg/dL) 209 H 179 H 147 H (70-110) mg/dL 01/30/24 01/30/24 Range/Units 06:51 11:39 BUN 34 H (9-20) mg/dL Creatinine 1.85 H (0.66-1.25) mg/dL Glucose 121 H (74-99) mg/dL POC Glucose (mg/dL) 171 H (70-110) mg/dL Microbiology - Last 24 Hours (Table) 01/26/24 10:26 Blood Culture - Preliminary Blood 01/26/24 10:25 Blood Culture - Preliminary Blood Assessment and Plan Assessment: 1. Acute kidney injury secondary to ATN secondary to severe sepsis, hypotension, rhabdomyolysis. Creatinine peaked at 3.36 this admission and is 1.8 today. No hydronephrosis noted on kidney ultrasound. 2. Chronic kidney disease stage IIIa with baseline creatinine 1.3-1.5 secondary to diabetic kidney disease. 3. Rhabdomyolysis secondary to fall and immobility. CK levels trending down. 4. Diabetes mellitus. 5. Chronic systolic CHF with ejection fraction of 20 to 25%. 6. Coronary disease with prior stent placement. 7. Lower extremity wounds. 8. Gram-positive bacteremia. On po antibiotics. Plan: Maintain Bumex. Avoid nephrotoxins. Continue to monitor renal function and urine output. Strict I's and O's. Bladder scans have been negative. Advised patient to maintain low-salt diet and fluid restriction of less than 50 ounces per day. Follow-up outpatient 1 week post discharge.
--- NOTE | 2024-01-30 14:23 | P.PN ---
Subjective Progress Note Date: 01/30/24 Principal diagnosis: Reason for follow-up is left lower extremity ulcer cellulitis and positive blood culture Patient is a 54-year-old male with a past medical history significant for diabetes mellitus hypertension hyperlipidemia DVT coronary artery disease patient has been brought in the hospital for evaluation generalized weakness and fever, patient did have ulceration to the left lower extremity and a positive blood culture prompting this consultation. On today's evaluation that is 01/30/2024, Patient is afebrile this morning patient denies having any chest pain shortness of breath or cough, the patient is breathing comfortably and currently on room air, patient denies any abdominal pain no diarrhea no nausea no vomiting, denies pain to the left lower extremity wound mention feeling better. Patient creatinine is 1.85, blood culture repeat has been negative Objective - Vital Signs Vital signs: Vital Signs Temp 98.5 F 01/30/24 12:43 Pulse 64 01/30/24 12:43 Resp 16 01/30/24 12:43 BP 196/93 01/30/24 12:43 Pulse Ox 96 01/30/24 12:43 FiO2 Intake & Output 01/29/24 01/30/24 01/30/24 18:59 06:59 18:59 Intake Total 540 421 236 Balance 540 421 236 Weight 158.5 kg Intake: Oral 540 421 236 Other: Voiding Method Toilet Toilet Toilet Urinal Urinal Urinal - Exam GENERAL DESCRIPTION: Middle-age male up in bed in no distress RESPIRATORY SYSTEM: Unlabored breathing , decreased breath sounds at bases HEART: S1 S2 regular rate and rhythm , ABDOMEN: Soft , no tenderness EXTREMITIES: Diffuse and bilateral extremity ulceration to the left leg no drainage - Labs CBC & Chem 7: 01/29/24 07:10 01/30/24 06:51 Labs: Abnormal Lab Results - Last 24 Hours (Table) 01/29/24 01/29/24 01/30/24 Range/Units 16:28 20:43 06:24 BUN (9-20) mg/dL Creatinine (0.66-1.25) mg/dL Glucose (74-99) mg/dL POC Glucose (mg/dL) 209 H 179 H 147 H (70-110) mg/dL 01/30/24 01/30/24 Range/Units 06:51 11:39 BUN 34 H (9-20) mg/dL Creatinine 1.85 H (0.66-1.25) mg/dL Glucose 121 H (74-99) mg/dL POC Glucose (mg/dL) 171 H (70-110) mg/dL Microbiology - Last 24 Hours (Table) 01/26/24 10:26 Blood Culture - Preliminary Blood 01/26/24 10:25 Blood Culture - Preliminary Blood Assessment and Plan (1) Bacteremia Current Visit: Yes Status: Acute Code(s): R78.81 - BACTEREMIA SNOMED Code(s): 1028262 (2) Sepsis Current Visit: Yes Status: Acute Code(s): A41.9 - SEPSIS, UNSPECIFIED ORGANISM SNOMED Code(s): 52197955 (3) Bilateral lower leg cellulitis Current Visit: No Status: Acute Code(s): L03.116 - CELLULITIS OF LEFT LOWER LIMB; L03.115 - CELLULITIS OF RIGHT LOWER LIMB SNOMED Code(s): 311159043 (4) Ulcer of lower extremity Current Visit: No Status: Acute Code(s): L97.909 - NON-PRS CHRONIC ULC UNSP PRT OF UNSP LOW LEG W UNSP SEVERITY SNOMED Code(s): 79308190 Plan: 1patient presented to hospital with sepsis in this patient who did have fever tachycardia elevated white count source likely lower extremity cellulitis and likely from gram-positive skin birdie. 2patient with a left lower extremity ulceration likely from ruptured blister. 3coagulase-negative staph positive blood culture question of possible skin contamination versus lower extremity cellulitis and ulceration. 4blood culture repeat has been negative 5patient has shown some clinical improvement, the patient is afebrile white count is normal 6- patient to continue with the cefazolin while inpatient monitor clinical course closely Dictation was produced using [employer] dictation software. please excuse any grammatical, word or spelling errors. Time with Patient: Less than 30
[2024-01-30 16:13] LABS: Glucose,Whole Blood 170 mg/dL (70-110)
[2024-01-30 20:12] LABS: Glucose,Whole Blood 186 mg/dL (70-110)
[2024-01-31 05:47] LABS: HCT 37.8 % (39.0-53.0); HGB 11.6 gm/dL (13.0-17.5); Hypochromasia Moderate; MCH 27.7 pg (25.0-35.0); MCHC 30.6 g/dL (31.0-37.0); MCV 90.4 fL (80.0-100.0); Mean Platelet Volume 8.1; Platelet Count 341 k/uL (150-450); RBC 4.18 m/uL (4.30-5.90); RDW 14.4 % (11.5-15.5); WBC 5.7 k/uL (3.8-10.6)
[2024-01-31 06:01] LABS: African American GFR (CKD) 52 (>60 ml/min/1.73 sqM); Anion Gap 5 mmol/L; Blood Urea Nitrogen 32 mg/dL (9-20); Calcium 8.8 mg/dL (8.4-10.2); Carbon Dioxide 27 mmol/L (22-30); Chloride 106 mmol/L (98-107); Glucose 143 mg/dL (74-99); Magnesium 1.8 mg/dL (1.6-2.3); Non-African American GFR(CKD) 45 (>60 ml/min/1.73 sqM); Potassium 4.7 mmol/L (3.5-5.1); Sodium 138 mmol/L (137-145)
[2024-01-31 06:13] LABS: Glucose,Whole Blood 147 mg/dL (70-110)
--- NOTE | 2024-01-31 10:48 | P.PN ---
Subjective Progress Note Date: 01/31/24 Patient seen and examined at bedside. No acute events overnight. Per nursing he has been ambulating with standby assist. Denies any urinary complaints. Pertinent positives and negatives as discussed above, a complete review of systems was performed and all other systems are negative. Vitals: Signs Reviewed Physical Exam: General: nontoxic, no distress, appears at stated age, morbidly obese Derm: warm, dry. Bilateral legs covered in dressing, not observed Head: atraumatic, normocephalic, symmetric Eyes: EOMI, no lid lag, anicteric sclera Mouth: no lip lesion, mucus membranes moist Cardiovascular: S1 S2 reg, no murmur, rubs, or gallops Lungs: CTA bilateral, no rhonchi, no rales, no accessory muscle use Abdominal: soft, non-tender to palpataion, no appreciable organomegaly Extremities: no gross muscle atrophy, no edema, no contractures Neuro: Alert, Oriented, CNII-XII grossly intact, gait normal Psych: well appearing, appropriate affect Data Received Today: Pertinent Labs: WBC 5.7, hemoglobin 11.6, creatinine 1.7, magnesium 1.8, blood glucose range between 1 43-1 86 Imaging: No new imaging Assessment and Plan: Patient is a 54-year-old male with a past medical history of CAD status post cardiac arrest, ischemic cardiomyopathy with chronic systolic heart failure with EF of 20-25%, hypertension, hyperlipidemia, COPD, insulin-dependent diabetes mellitus, and chronic venous stasis dermatitis presents with sepsis secondary to cellulitis. Also had CHAVO's likely secondary to sepsis and ATN due to rhabdomyolysis. ID, and nephrology was consulted. Patient is now improving, on oral antibiotics. Sepsis secondary to cellulits d/t chronic lower extremity wounds Acute kidney injury on chronic kidney disease stage IIIa, improving rhabdomyolysis, improving lactic acidosis, resolved leukocytosis, resolved coag negative staph bacteremia, contaminant -Repeat blood cultures has been negative -continue on oral Keflex 500 mg PO 3 times daily, completed a total of 10 to 14- day course -ID following, continue current therapy -nephrology following, creatinine trending down. IV fluids discontinued. Continue Bumex 1 mg daily. Maintain low salt diet <50 oz/day. Bladder scans have been negative. Large skin avulsion injury left leg -Mupirocin ointment -Cover with nonadherent dressing -Wound care following Left foot numbness, likely peripheral - CT head was negative for acute intracranial process showing CSF cleft extending from the right lateral frontal lobe possibly representing prior CVA. - Continue ASA 81 mg daily and liptior 80 mg nightly. - Possitive strong DP and PT pulses pwer doppler on left - PT/OT following -Neurology signed off, Numbness likely peripheral, recommending outpatient EMG States numbness is improving Heart Failure with reduced ejection fraction, EF 20-25% w/o exacerbation Hypertension Dyslipidemia -Most recent echocardiogram from 05/04 with ejection fraction 20 to 25% -Home medications at baseline include Cozaar 100 mg daily, Coreg 37.5 mg twice daily, Jardiance 25 mg daily -Given extent of acute kidney injury continue to hold Jardiance and Cozaar -Continue Coreg 37.5 mg p.o. twice daily, Atorvastatin 40 mg daily -Continue amlodipine to 10 mg daily, on home hydralazine 25 3 times daily -continue Bumex 1 mg daily per nephrology Diabetes mellitus type 2, insulin-dependent with hyperglycemia, currently controlled -Hgb A1c completed on 01/13/2024 was 9.6 -Hold metformin given CHAVO -Continue Levemir 40 units daily Glycemic protocol with insulin subcu sliding scale insulin. Monitor for hypoglycemia COPD without exacerbation -DuoNebs 4 times daily and replacement of home Combivent inhaler -as needed albuterol -Transition home we will [place] inhaler to Symbicort inhaler Repeated falls - Pt/OT consulted. - Fall precuations Neuro following Chronic Prior DVT GERD BERTRAND Peripheral vascular disease F: n/a E: Replete as needed N: Consistent carbohydrate diet A: Fall precautions DVT ppx: Heparin subcu Code status: Full Anticipated discharge place: Possibly home with home care Anticipated discharge time: Likely tomorrow Objective - Vital Signs Vital signs: Vital Signs Temp 98.1 F 01/31/24 08:00 Pulse 76 01/31/24 09:04 Resp 18 01/31/24 08:00 BP 156/74 01/31/24 08:00 Pulse Ox 95 01/31/24 08:00 FiO2 Intake & Output 01/30/24 01/31/24 01/31/24 18:59 06:59 18:59 Intake Total 236 476 218 Balance 236 476 218 Weight 157.5 kg Intake: Oral 236 476 218 Other: Voiding Method Toilet Toilet Urinal Urinal - Labs CBC & Chem 7: 01/31/24 05:08 01/31/24 05:08 Labs: Abnormal Lab Results - Last 24 Hours (Table) 01/30/24 01/30/24 01/30/24 Range/Units 11:39 16:11 20:11 RBC (4.30-5.90) m/uL Hgb (13.0-17.5) gm/dL Hct (39.0-53.0) % MCHC (31.0-37.0) g/dL BUN (9-20) mg/dL Creatinine (0.66-1.25) mg/dL Glucose (74-99) mg/dL POC Glucose (mg/dL) 171 H 170 H 186 H (70-110) mg/dL 01/31/24 01/31/24 01/31/24 Range/Units 05:08 05:08 06:11 RBC 4.18 L (4.30-5.90) m/uL Hgb 11.6 L (13.0-17.5) gm/dL Hct 37.8 L (39.0-53.0) % MCHC 30.6 L (31.0-37.0) g/dL BUN 32 H (9-20) mg/dL Creatinine 1.70 H (0.66-1.25) mg/dL Glucose 143 H (74-99) mg/dL POC Glucose (mg/dL) 147 H (70-110) mg/dL
[2024-01-31 11:30] LABS: Glucose,Whole Blood 176 mg/dL (70-110)
--- NOTE | 2024-01-31 11:50 | P.PN ---
Subjective Progress Note Date: 01/31/24 Patient is seen in follow-up for acute kidney injury on chronic kidney disease. Renal function improving. No new complaints. Vital signs are stable. General: No acute distress. HEENT: Head exam is unremarkable. LUNGS: No acute distress. HEART: Rate and Rhythm are regular. ABDOMEN: Nontender. EXTREMITITES: No edema. Objective - Vital Signs Vital signs: Vital Signs Temp 98.1 F 01/31/24 08:00 Pulse 72 01/31/24 11:47 Resp 18 01/31/24 08:00 BP 156/74 01/31/24 08:00 Pulse Ox 95 01/31/24 08:00 FiO2 Intake & Output 01/30/24 01/31/24 01/31/24 18:59 06:59 18:59 Intake Total 236 476 218 Balance 236 476 218 Weight 157.5 kg Intake: Oral 236 476 218 Other: Voiding Method Toilet Toilet Urinal Urinal - Labs CBC & Chem 7: 01/31/24 05:08 01/31/24 05:08 Labs: Abnormal Lab Results - Last 24 Hours (Table) 01/30/24 01/30/24 01/31/24 Range/Units 16:11 20:11 05:08 RBC 4.18 L (4.30-5.90) m/uL Hgb 11.6 L (13.0-17.5) gm/dL Hct 37.8 L (39.0-53.0) % MCHC 30.6 L (31.0-37.0) g/dL BUN (9-20) mg/dL Creatinine (0.66-1.25) mg/dL Glucose (74-99) mg/dL POC Glucose (mg/dL) 170 H 186 H (70-110) mg/dL 01/31/24 01/31/24 01/31/24 Range/Units 05:08 06:11 11:29 RBC (4.30-5.90) m/uL Hgb (13.0-17.5) gm/dL Hct (39.0-53.0) % MCHC (31.0-37.0) g/dL BUN 32 H (9-20) mg/dL Creatinine 1.70 H (0.66-1.25) mg/dL Glucose 143 H (74-99) mg/dL POC Glucose (mg/dL) 147 H 176 H (70-110) mg/dL Assessment and Plan Assessment: 1. Acute kidney injury secondary to ATN secondary to severe sepsis, hypotension, rhabdomyolysis. Creatinine peaked at 3.36 this admission and is 1.7 today. No hydronephrosis noted on kidney ultrasound. 2. Chronic kidney disease stage IIIa with baseline creatinine 1.3-1.5 secondary to diabetic kidney disease. 3. Rhabdomyolysis secondary to fall and immobility. CK levels trending down. 4. Diabetes mellitus. 5. Chronic systolic CHF with ejection fraction of 20 to 25%. 6. Coronary disease with prior stent placement. 7. Lower extremity wounds. 8. Gram-positive bacteremia. On po antibiotics. Plan: Maintain Bumex. Avoid nephrotoxins. Continue to monitor renal function and urine output. Strict I's and O's. Bladder scans have been negative. Advised patient to maintain low-salt diet and fluid restriction of less than 50 ounces per day. Follow-up outpatient 1 week post discharge.
[2024-01-31 16:45] LABS: Glucose,Whole Blood 182 mg/dL (70-110)
--- NOTE | 2024-01-31 20:06 | P.PN ---
Subjective Progress Note Date: 01/31/24 Principal diagnosis: Reason for follow-up is left lower extremity ulcer cellulitis and positive blood culture Patient is a 54-year-old male with a past medical history significant for diabetes mellitus hypertension hyperlipidemia DVT coronary artery disease patient has been brought in the hospital for evaluation generalized weakness and fever, patient did have ulceration to the left lower extremity and a positive blood culture prompting this consultation. On today's evaluation that is 01/31/2024,the patient denies any fever or any chills, patient is breathing comfortably on room air, the patient denies chest pain shortness of breath and no significant cough, patient denies abdominal pain, no nausea vomiting or diarrhea. And denies pain to the lower extremity. Patient white count is 5.7, creat is 1.70 blood culture repeat has been negative Objective - Vital Signs Vital signs: Vital Signs Temp 98.1 F 01/31/24 08:00 Pulse 76 01/31/24 09:04 Resp 18 01/31/24 08:00 BP 156/74 01/31/24 08:00 Pulse Ox 95 01/31/24 08:00 FiO2 Intake & Output 01/30/24 01/31/24 01/31/24 18:59 06:59 18:59 Intake Total 236 476 218 Balance 236 476 218 Weight 157.5 kg Intake: Oral 236 476 218 Other: Voiding Method Toilet Toilet Urinal Urinal - Exam GENERAL DESCRIPTION: Middle-age male up in bed in no distress RESPIRATORY SYSTEM: Unlabored breathing , decreased breath sounds at bases HEART: S1 S2 regular rate and rhythm , ABDOMEN: Soft , no tenderness EXTREMITIES: Diffuse and bilateral extremity ulceration to the left leg no drainage - Labs CBC & Chem 7: 01/31/24 05:08 01/31/24 05:08 Labs: Abnormal Lab Results - Last 24 Hours (Table) 01/30/24 01/30/24 01/30/24 Range/Units 11:39 16:11 20:11 RBC (4.30-5.90) m/uL Hgb (13.0-17.5) gm/dL Hct (39.0-53.0) % MCHC (31.0-37.0) g/dL BUN (9-20) mg/dL Creatinine (0.66-1.25) mg/dL Glucose (74-99) mg/dL POC Glucose (mg/dL) 171 H 170 H 186 H (70-110) mg/dL 01/31/24 01/31/24 01/31/24 Range/Units 05:08 05:08 06:11 RBC 4.18 L (4.30-5.90) m/uL Hgb 11.6 L (13.0-17.5) gm/dL Hct 37.8 L (39.0-53.0) % MCHC 30.6 L (31.0-37.0) g/dL BUN 32 H (9-20) mg/dL Creatinine 1.70 H (0.66-1.25) mg/dL Glucose 143 H (74-99) mg/dL POC Glucose (mg/dL) 147 H (70-110) mg/dL Assessment and Plan (1) Bacteremia Current Visit: Yes Status: Acute Code(s): R78.81 - BACTEREMIA SNOMED Code(s): 5368936 (2) Sepsis Current Visit: Yes Status: Acute Code(s): A41.9 - SEPSIS, UNSPECIFIED ORGANISM SNOMED Code(s): 53833634 (3) Bilateral lower leg cellulitis Current Visit: No Status: Acute Code(s): L03.116 - CELLULITIS OF LEFT LOWER LIMB; L03.115 - CELLULITIS OF RIGHT LOWER LIMB SNOMED Code(s): 185561499 (4) Ulcer of lower extremity Current Visit: No Status: Acute Code(s): L97.909 - NON-PRS CHRONIC ULC UNSP PRT OF UNSP LOW LEG W UNSP SEVERITY SNOMED Code(s): 15123663 Plan: 1patient presented to hospital with sepsis in this patient who did have fever tachycardia elevated white count source likely lower extremity cellulitis and likely from gram-positive skin birdie. 2patient with a left lower extremity ulceration likely from ruptured blister. 3coagulase-negative staph positive blood culture question of possible skin contamination versus lower extremity cellulitis and ulceration. 4blood culture repeat has been negative 5patient has shown some clinical improvement, the patient is afebrile white count is normal continue with a short course of oral Keflex and monitor clinical course closely Dictation was produced using [employer] software. please excuse any grammatical, word or spelling errors. Time with Patient: Less than 30
[2024-01-31 20:11] LABS: Glucose,Whole Blood 212 mg/dL (70-110)
[2024-02-01 02:42] VITALS: RESP 18
[2024-02-01 05:05] VITALS: TEMP 98
[2024-02-01 06:13] LABS: Glucose,Whole Blood 158 mg/dL (70-110)
[2024-02-01 09:23] VITALS: BP 175/81; PULSE 66
[2024-02-01] MEDS: LOSARTAN 50 MG TAB PO SCH (09:24)
--- NOTE | 2024-02-01 12:02 | P.DS ---
Providers Date of admission: 01/23/24 20:45 Expected date of discharge: 02/01/24 Attending physician: Jose Coy MD Consults: 01/24/24 09:21 Consult Physician Routine Consulting Provider: Kostas Solano Consult Reason/Comments: CHAVO Do you want consulting provider notified?: Yes 01/24/24 11:44 Consult Physician Routine Consulting Provider: Susie Richards Consult Reason/Comments: left foot numbness Do you want consulting provider notified?: Yes 01/25/24 12:17 Consult Physician Routine Consulting Provider: Hieu Alfred Consult Reason/Comments: sepsis, cellulitis and staph bacteremia Do you want consulting provider notified?: Yes Primary care physician: [facility] Hospital Course: Discharge Diagnosis: Sepsis secondary to cellulitis Acute kidney injury on chronic kidney disease stage III Rhabdomyolysis Lactic acidosis Leukocytosis Left leg large skin avulsion Left foot numbness Heart failure with reduced ejection fraction, EF 20-25% without exacerbation Type 2 diabetes, insulin-dependent COPD without exacerbation History of DVT GERD Obstructive sleep apnea Peripheral vascular disease Hospital Course: Patient is a 54-year-old male with a past medical history of CAD status post cardiac arrest, ischemic cardiomyopathy with chronic systolic heart failure with EF of 20-25%, hypertension, hyperlipidemia, COPD, insulin-dependent diabetes mellitus, and chronic venous stasis dermatitis with ulcerations..He presented to the emergency department on 01/24/2024 with complaints of fall, fever, and chill s. Had recurrent falls in the ER. Upon arrival to our facility, patient underwent evaluation in the emergency department. Vital signs upon arrival show blood pressure 116/99, heart rate 100, respiratory rate 20, temp 102.3 F, and SpO2 of 90% on room air. Labs were completed and reviewed. CBC showing leukocytosis with WBC count of 18.7. Coagulation profile normal findings. BMP showing hyponatremia with sodium of 131 and acute kidney injury with BUN of 15, creatinine of 1.98 (baseline creatinine 1.5), and GFR of 37. Lactic acid was elevated at 3.5. Liver profile showing hyperbilirubinemia with total bili of 1.9, AST of 66. Troponin was 0.017 and proBNP was 43,500. TSH was 2.880. Urinalysis positive for protein, glucose, and blood negative for infection with only 17 WBCs. Influenza A and influenza B were negative. Creatinine kinase was 8978. Chest x-ray was negative for acute cardiopulmonary process. Bilateral lower extremity Dopplers were negative for DVT. X-ray left ankle negative for acute fracture. X-ray left tib-fib negative for acute fracture or dislocation. X-ray left foot negative for acute fracture dislocation. Patient was admitted under our services with consultation to nephrology and infectious disease. Renal ultrasound negative for obstructive uropathy showing no signs of hydronephrosis, nephrolithiasis, or masses noted. CT head was negative for acute intracranial process showing CSF cleft extending from the right lateral frontal lobe possibly representing prior CVA. While admitted patient was placed on appropriate IV antibiotics. he was also seen by ID and wound care. IV antibiotics converted to oral antibiotics to finish remaining course. Patient will follow-up outpatient with neurology about fall and numbness in left leg. Patient was seen by nephrology and was on IV fluids initially for rhabdomyolysis. Creatinine improved while here. now being discharged back on home diuretics. Patient had elevated blood pressure while here. He resumed his home antihypertensive and was given amlodipine 10 mg. Ambulatory status improved over his stay. He is able to walk to the bathroom with standby assistance. Patient being sent home with oral antibiotics and antihypertensives. Patient is to follow-up with PCP, nephrology, wound center. He is being discharged home. 02/01/2024: Patient seen and examined at bedside. No acute overnight. Says he is ambulating to get to the bathroom just fine with standby assist. Vital signs reviewed and stable. Physical Exam: General: nontoxic, no distress, appears at stated age, morbidly obese Derm: warm, dry. Bilateral legs covered in dressing, not observed Head: atraumatic, normocephalic, symmetric Eyes: EOMI, no lid lag, anicteric sclera Mouth: no lip lesion, mucus membranes moist Cardiovascular: S1 S2 reg, no murmur, rubs, or gallops Lungs: CTA bilateral, no rhonchi, no rales, no accessory muscle use Abdominal: soft, non-tender to palpataion, no appreciable organomegaly Extremities: no gross muscle atrophy, no edema, no contractures Neuro: Alert, Oriented, CNII-XII grossly intact, gait normal Psych: well appearing, appropriate affect A total of 33 minutes of time were spent preparing this complex discharge summary. Patient was discharge on February 01, 2024 at 9:12 AM. I have seen and evaluated the patient today. Discussed with the resident and agree with resident's findings and plan as documented in the resident's note. Changes highlighted in blue font. Patient Condition at Discharge: Stable Plan - Discharge Summary Discharge Rx Participant: No New Discharge Prescriptions: New amLODIPine [Norvasc] 10 mg PO DAILY #90 tab Mupirocin 2% Oint [Bactroban 2% Oint] 1 applic TOPICAL TID #1 each Losartan [Cozaar] 50 mg PO DAILY #60 tab Cephalexin [Keflex] 500 mg PO TID #15 cap Continue Atorvastatin [Lipitor] 80 mg PO HS #30 tab Ipratropium/Albuterol Sulfate [Combivent Respimat Inhaler] 1 puff INHALATION RT-QID Omeprazole 20 mg PO DAILY Aspirin EC [Ecotrin Low Dose] 81 mg PO DAILY Insulin Glargine,Hum.rec.anlog [Lantus Solostar Pen] 40 unit SQ DAILY Fluticasone Propion/Salmeterol [Wixela 250-50 Inhub] 1 puff INHALATION RT-BID carvediloL 37.5 mg PO BID-W/MEALS Bumetanide [BUMEX] 1 mg PO DAILY Multivitamins, Thera [Multivitamin (formulary)] 1 tab PO DAILY hydrALAZINE HCL [Apresoline] 25 mg PO TID Ergocalciferol (Vitamin D2) [Drisdol (50,000 Iu)] 1,250 mcg PO Q7D Sodium Chloride Irrig Solution [Sodium Chloride Irrig] 1 applic IRRIGATION DIRECTED PRN PRN Reason: CLEANSE WOUNDS Discontinued metFORMIN HCL [Glucophage] 1,000 mg PO BID Empagliflozin [Jardiance] 25 mg PO DAILY Losartan Potassium [Cozaar] 100 mg PO DAILY Discharge Medication List Atorvastatin [Lipitor] 80 mg PO HS #30 tab 02/27/16 [Rx] Ipratropium/Albuterol Sulfate [Combivent Respimat Inhaler] 1 puff INHALATION RT- QID 01/12/19 [History] Omeprazole 20 mg PO DAILY 03/14/19 [History] Aspirin EC [Ecotrin Low Dose] 81 mg PO DAILY 10/17/20 [History] Fluticasone Propion/Salmeterol [Wixela 250-50 Inhub] 1 puff INHALATION RT-BID 01/15/22 [History] Insulin Glargine,Hum.rec.anlog [Lantus Solostar Pen] 40 unit SQ DAILY 01/15/22 [History] Multivitamins, Thera [Multivitamin (formulary)] 1 tab PO DAILY 01/15/22 [History] carvediloL 37.5 mg PO BID-W/MEALS 01/15/22 [History] Bumetanide [BUMEX] 1 mg PO DAILY 01/23/24 [History] Ergocalciferol (Vitamin D2) [Drisdol (50,000 Iu)] 1,250 mcg PO Q7D 01/23/24 [History] Sodium Chloride Irrig Solution [Sodium Chloride Irrig] 1 applic IRRIGATION DIRECTED PRN 01/23/24 [History] hydrALAZINE HCL [Apresoline] 25 mg PO TID 01/23/24 [History] Cephalexin [Keflex] 500 mg PO TID #15 cap 02/01/24 [Rx] Losartan [Cozaar] 50 mg PO DAILY #60 tab 02/01/24 [Rx] Mupirocin 2% Oint [Bactroban 2% Oint] 1 applic TOPICAL TID #1 each 02/01/24 [Rx] amLODIPine [Norvasc] 10 mg PO DAILY #90 tab 02/01/24 [Rx] Follow up Appointment(s)/Referral(s): Radha Gil MD [REFERRING] - 1 Week (patient to call and make own appointment) [facility] [NON-STAFF] - 02/03/24 8:15 am [facility] [NON-STAFF] - 1 Week (Agency will call within 24 - 48 hours to schedule a visit.) Kostas Solano DO [STAFF PHYSICIAN] - 1 Week (patient to call and make own appointment) [facility] [Primary Care Provider] - 1-2 days Patient Instructions/Handouts: Acute Kidney Injury (DC), Cellulitis (GEN), Rhabdomyolysis (DC) Activity/Diet/Wound Care/Special Instructions: Please see your PCP, and nephrology. Also see neurology for EMG studies for left leg weakness. Discharge Disposition: HOME WITH HOME HEALTH SERVICES
--- NOTE | 2024-02-01 13:56 | P.PN ---
Subjective Progress Note Date: 02/01/24 Patient is being seen for follow-up for acute kidney injury on chronic kidney disease. Renal function improving. No significant complaints. Objective - Vital Signs Vital signs: Vital Signs Temp 98.0 F 02/01/24 04:00 Pulse 70 02/01/24 07:57 Resp 18 02/01/24 04:00 BP 182/91 02/01/24 04:00 Pulse Ox 97 02/01/24 04:00 FiO2 Intake & Output 01/31/24 02/01/24 02/01/24 18:59 06:59 18:59 Intake Total 796 322 Output Total 1300 Balance 796 -978 Weight 158.6 kg Intake: Oral 796 322 Output: Urine 1300 Other: Voiding Method Toilet Urinal # Voids 1 - Exam Vital signs are stable. General: No acute distress. HEENT: Head exam is unremarkable. Lungs: Bilateral breath sounds present; no rhonchi, wheezes, or rales. Heart: Rate and rhythm are regular. Abdomen: Obese, nontender. Extremities: 1+ edema present bilaterally. Legs wrapped. - Labs CBC & Chem 7: 01/31/24 05:08 01/31/24 05:08 Labs: Abnormal Lab Results - Last 24 Hours (Table) 01/31/24 01/31/24 01/31/24 Range/Units 11:29 16:43 20:09 POC Glucose (mg/dL) 176 H 182 H 212 H (70-110) mg/dL 02/01/24 Range/Units 06:11 POC Glucose (mg/dL) 158 H (70-110) mg/dL Microbiology - Last 24 Hours (Table) 01/26/24 10:26 Blood Culture - Final Blood 01/26/24 10:25 Blood Culture - Final Blood Assessment and Plan Assessment: 1. Acute kidney injury secondary to ATN secondary to severe sepsis, hypotension, rhabdomyolysis. Creatinine peaked at 3.36 this admission and was 1.7 yesterday. No hydronephrosis noted on kidney ultrasound. 2. Chronic kidney disease stage IIIa with baseline creatinine 1.3-1.5 secondary to diabetic kidney disease. 3. Rhabdomyolysis secondary to fall and immobility. CK levels trending down. 4. Diabetes mellitus. 5. Chronic systolic CHF with ejection fraction of 20 to 25%. 6. Coronary disease with prior stent placement. 7. Lower extremity wounds. 8. Gram-positive bacteremia. On antibiotics. Plan: Maintain Bumex. Avoid nephrotoxins. Continue to monitor renal function and urine output. Educated patient on importance of low-salt diet and fluid restriction of less than 50 ounces per day. Advised patient to monitor weight closely at home. To notify physician if he develops worsening edema or weight gain of more than 3 pounds in 1 week duration. Follow-up outpatient 1 week post discharge. Patient is cleared for discharge from a nephrology standpoint. Patient is seen. Agree with resident's assessment and plan.
== END 2024-02-01 12:02 | disposition home health service (06) | DRG 871 ==
LOC: EC 15:46 → 3SCARD 20:45
PROVIDERS: ADMIT Internal Medicine; ATTEND Internal Medicine
DX: A41.9 Sepsis, unspecified organism (principal); N17.0 Acute kidney failure with tubular necrosis; E87.1 Hypo-osmolality and hyponatremia; E87.20 Acidosis, unspecified; I13.0 Hypertensive heart and chronic kidney disease with heart failure and stage 1 through stage 4 chronic kidney disease, or unspecified chronic kidney disease; I50.22 Chronic systolic (congestive) heart failure; L03.115 Cellulitis of right lower limb; L03.116 Cellulitis of left lower limb; L97.222 Non-pressure chronic ulcer of left calf with fat layer exposed; M62.82 Rhabdomyolysis; R17 Unspecified jaundice; B95.7 Other staphylococcus as the cause of diseases classified elsewhere; B96.89 Other specified bacterial agents as the cause of diseases classified elsewhere; E11.22 Type 2 diabetes mellitus with diabetic chronic kidney disease; E11.41 Type 2 diabetes mellitus with diabetic mononeuropathy; E11.42 Type 2 diabetes mellitus with diabetic polyneuropathy; E11.51 Type 2 diabetes mellitus with diabetic peripheral angiopathy without gangrene; E11.622 Type 2 diabetes mellitus with other skin ulcer; E11.65 Type 2 diabetes mellitus with hyperglycemia; E78.5 Hyperlipidemia, unspecified; G47.33 Obstructive sleep apnea (adult) (pediatric); I25.10 Atherosclerotic heart disease of native coronary artery without angina pectoris; I25.5 Ischemic cardiomyopathy; I87.321 Chronic venous hypertension (idiopathic) with inflammation of right lower extremity; I87.329 Chronic venous hypertension (idiopathic) with inflammation of unspecified lower extremity; I87.8 Other specified disorders of veins; J44.89 Other specified chronic obstructive pulmonary disease; K21.9 Gastro-esophageal reflux disease without esophagitis; N18.31 Chronic kidney disease, stage 3a; R29.6 Repeated falls; R65.20 Severe sepsis without septic shock; W19.XXXA Unspecified fall, initial encounter; I25.2 Old myocardial infarction; Z79.4 Long term (current) use of insulin; Z79.82 Long term (current) use of aspirin; Z79.84 Long term (current) use of oral hypoglycemic drugs; Z79.899 Other long term (current) drug therapy; Z86.16 Personal history of COVID-19; Z86.718 Personal history of other venous thrombosis and embolism; Z86.73 Personal history of transient ischemic attack (TIA), and cerebral infarction without residual deficits; Z86.74 Personal history of sudden cardiac arrest; Z87.891 Personal history of nicotine dependence; Z91.81 History of falling; Z95.5 Presence of coronary angioplasty implant and graft
CPT/HCPCS: 36415; 36600; 70450; 71046; 76770; 80048; 80053; 80202; 81001; 82330; 82550; 82805; 83605; 83735; 83880; 84443; 84484; 85025; 85027; 85610; 85730; 87040; 87086; 87502; 87635; 93005; 93922; 93970; 94640; 96361; 96365; 96368; 96375; 99291

== ENCOUNTER 2024-02-25 02:59 | Emergency (ER) | payer OTHER ==
[2024-02-25] MEDS ORDERED: SODIUM CHLORIDE 0.9% 500 ML BAG ONE (06:30)
[2024-02-25] MEDS ORDERED: ACETAMINOPHEN TAB 500 MG TAB ONE (06:50)
[2024-02-25] MEDS ORDERED: hydrALAZINE HCL 20 MG/ML 1 ML VIAL ONE (07:07)
--- NOTE | 2024-04-01 13:36 | XR ---
Site ID [facility] Patient Bear Epstein ID [id number] Order # EXAMINATION TYPE: XR chest 2V DATE OF EXAM: 02/25/2024 2:33 PM CLINICAL INDICATION: FEVER CHILLS COMPARISON: None THIS EXAM WAS READ DURING PACS DOWNTIME, NO PRIORS AVAILABLE. TECHNIQUE: XR chest 2V Frontal view of the chest. FINDINGS: Lungs/Pleura: Scattered subtle reticular and hazy opacities. No evidence of pneumothorax, focal conso lidation or pleural effusion. Pulmonary vascularity: Unremarkable. Heart/mediastinum: Cardiomediastinal silhouette is unremarkable. Musculoskeletal: No acute osseous pathology. IMPRESSION: Subtle scattered opacities which may represent an atypical pneumonia.
== END 2024-02-25 12:44 | disposition home or self-care (01) ==
LOC: EC 02:59
DX: U07.1 COVID-19 (principal)
CPT/HCPCS: 71046

== ENCOUNTER 2024-04-12 17:15 | Inpatient (IN) | payer OTHER ==
--- NOTE | 2024-04-12 17:35 | ED ---
Skin/Abscess/FB HPI - General Source: patient, RN notes reviewed Mode of arrival: ambulatory Limitations: no limitations <Meghan Doan - Last Filed: 04/12/24 17:34> - General Source: patient, RN notes reviewed, old records reviewed Mode of arrival: ambulatory Limitations: no limitations - History of Present Illness MD complaint: rash (Ulceration) -: days(s) Location: LLE, RLE Severity scale (1-10): 7 Consistency: constant Improves with: none Worsens with: none Associated symptoms: fever, chills Treatments Prior to Arrival: none <Will Mckeon - Last Filed: 04/16/24 17:54> - General Chief complaint: Skin/Abscess/Foreign Body Stated complaint: R Leg Infection Time Seen by Provider: 04/12/24 17:32 - History of Present Illness Initial comments: Quick [id number] male presents emergency department chief complaint of worsening bilateral lower extremity wounds. Patient states that he has followed with wound care in the past and states that these wounds have worsened over the past week. Currently he is denying nausea, vomiting, fevers, chills. (Meghan Doan) This is a 54-year-old male with history of lower extremity wounds, patient did get through wound care in the past with healing of ulcers but is present with significant swelling and drainage from his ulcer is malodorous drainage (Will Mckeon) - Related Data Home Medications Medication Instructions Recorded Confirmed Ipratropium/Albuterol Sulfate 1 puff INHALATION RT-QID 01/12/19 04/13/24 [Combivent Respimat Inhaler] Omeprazole 20 mg PO DAILY 03/14/19 04/13/24 Aspirin EC [Ecotrin Low Dose] 81 mg PO DAILY 10/17/20 04/13/24 Fluticasone Propion/Salmeterol 1 puff INHALATION RT-BID 01/15/22 04/13/24 [Wixela 250-50 Inhub] Insulin Glargine,Hum.rec.anlog 45 unit SQ DAILY 01/15/22 04/13/24 [Lantus Solostar Pen] Multivitamins, Thera [Multivitamin 1 tab PO DAILY 01/15/22 04/13/24 (formulary)] carvediloL 37.5 mg PO BID-W/MEALS 01/15/22 04/13/24 Bumetanide [BUMEX] 1 mg PO DAILY 01/23/24 04/13/24 Ergocalciferol (Vitamin D2) 1,250 mcg PO Q7D 01/23/24 04/13/24 [Drisdol (50,000 Iu)] Previous Rx's Medication Instructions Recorded Atorvastatin [Lipitor] 80 mg PO HS #30 tab 02/27/16 Losartan [Cozaar] 50 mg PO DAILY #60 tab 02/01/24 amLODIPine [Norvasc] 10 mg PO DAILY #90 tab 02/01/24 Allergies Allergy/AdvReac Type Severity Reaction Status Date / Time tetracycline Allergy Rash/Hives Verified 04/12/24 17:21 Review of Systems ROS Other: All systems not noted in ROS Statement are negative. <Meghan Doan - Last Filed: 04/12/24 17:34> ROS Other: All systems not noted in ROS Statement are negative. <Will Mckeon - Last Filed: 04/16/24 17:54> ROS Statement: Those systems with pertinent positive or pertinent negative responses have been documented in the HPI. Past Medical History Past Medical History: Asthma, Coronary Artery Disease (CAD), Heart Failure, COPD, Diabetes Mellitus, Deep Vein Thrombosis (DVT), GERD/Reflux, Hyperlipidemia, Hypertension, Myocardial Infarction (RI), Renal Disease, Sleep Apnea/CPAP/BIPAP, Vascular Disorder Additional Past Medical History / Comment(s): 02/20/16 RI with cardiac sulpzb-Ardl-vo wore life vest for 7 weeks, 2010 DVT RIGHT leg, bilateral lower leg cellulitis, bilateral varicose veins, PVD, NIDDM type II, BERTRAND with CPAP. UTI Mar 2021, cellulitis with open wounds on bilateral lower legs being treated in wound center 2021, H/o covid 2020 Last Myocardial Infarction Date:: 02/20/16 History of Any Multi-Drug Resistant Organisms: MRSA Date of last positivie culture/infection: 2018 MDRO Source:: bilateral legs Past Surgical History: Heart Catheterization With Stent Additional Past Surgical History / Comment(s): circumcision Additional Past Anesthesia/Blood Transfusion Reaction / Comment(s): Pt has never had anesthesia Date of Last Stent Placement:: 02/20/16 Past Psychological History: No Psychological Hx Reported Smoking Status: Former smoker - Past Family History Father Family Medical History: Coronary Artery Disease (CAD), Diabetes Mellitus, Eye Disorder Additional Family Medical History / Comment(s): Bradycardia, blind. Father is in his early 70's. Mother Family Medical History: Coronary Artery Disease (CAD), Diabetes Mellitus Additional Family Medical History / Comment(s): Benign brain tumor. Mother is in her early 70's <Meghan Doan - Last Filed: 04/12/24 17:34> General Exam Limitations: no limitations <Bonnie Doanoe - Last Filed: 04/12/24 17:34> General appearance: alert, in no apparent distress Head exam: Present: atraumatic, normocephalic, normal inspection Eye exam: Present: normal appearance, PERRL, EOMI. Absent: scleral icterus, conjunctival injection, periorbital swelling ENT exam: Present: normal exam, mucous membranes moist Neck exam: Present: normal inspection. Absent: tenderness, meningismus, lymphadenopathy Respiratory exam: Present: normal lung sounds bilaterally. Absent: respiratory distress, wheezes, rales, rhonchi, stridor Cardiovascular Exam: Present: regular rate, normal rhythm, normal heart sounds. Absent: systolic murmur, diastolic murmur, rubs, gallop, clicks GI/Abdominal exam: Present: soft, normal bowel sounds. Absent: distended, tenderness, guarding, rebound, rigid Extremities exam: Present: tenderness, normal capillary refill, pedal edema, other (Significant ulceration and swelling of lower extremities). Absent: joint swelling, calf tenderness Back exam: Present: normal inspection Neurological exam: Present: alert, oriented X3, CN II-XII intact Psychiatric exam: Present: normal affect, normal mood Skin exam: Present: warm, dry, intact, normal color. Absent: rash <Will Mckeon - Last Filed: 04/16/24 17:54> - General Exam Comments Initial Comments: Visual Physical Exam Vital signs reviewed General: Well-appearing, nontoxic, no acute distress. Head: Normocephalic, atraumatic Eyes: PERRLA, EOMI ENT: Airway patent Chest: Nonlabored breathing Skin: No visual rash, normal skin tone Neuro: Alert and oriented 3 Musculoskeletal: No gross abnormalities (Stieler,Meghan) Course <Will Mckeon - Last Filed: 04/16/24 17:54> Vital Signs 04/12/24 04/12/24 04/12/24 17:19 22:10 23:35 Temperature 98.0 F 97.7 F Pulse Rate 89 73 Pulse Rate [ 80 Right Pulse Oximetery] Respiratory 20 18 16 Rate Blood Pressure 174/106 164/92 Blood Pressure 171/110 [Right Arm] O2 Sat by Pulse 97 97 97 Oximetry - Reevaluation(s) Reevaluation #1: 04/12/24 21:47 Medical records reviewed (Will Mckeon) Reevaluation #2: 04/12/24 21:47 Patient symptoms unchanged (Will Mckeon) Reevaluation #3: 04/12/24 21:47 Patient informed of results questions answered (Will Mckeon) Reevaluation #4: Was pt. sent in by a medical professional or institution (, PA, DISABILITY REPRESENTATIVE, urgent care, hospital, or long term...) When possible be specific @ -no Did you speak to anyone other than the patient for history (EMS, parent, family, police, friend...)? What history was obtained from this source @ -no Did you review nursing and triage notes (agree or disagree)? Why? @ -agree Are old charts reviewed (outside hosp., previous admission, EMS record, old EKG, old radiological studies, urgent care reports/EKG's, long term records)? Report findings @ -yes Differential Diagnosis (chest pain, altered mental status, abdominal pain women, abdominal pain men, vaginal bleeding, weakness, fever, dyspnea, syncope, headache, dizziness, GI bleed, back pain, seizure, CVA, palpatations, mental health, musculoskeletal)? @ -prior EKG interpreted by me (3pts min.). @ -yes X-rays interpreted by me (1pt min.). @ -no CT interpreted by me (1pt min.). @ -no U/S interpreted by me (1pt. min.). @ -no What testing was considered but not performed or refused? (CT, X-rays, U/S, labs)? Why? @ -none What meds were considered but not given or refused? Why? @ -none Did you discuss the management of the patient with other professionals (professionals i.e. , PA, DISABILITY REPRESENTATIVE, lab, RT, psych nurse, psychotherapist social worker, entertainment lawyer, t eacher, consular officer, sample case porter)? Give summary @ -no Was smoking cessation discussed for >3mins.? @ -no Was critical care preformed (if so, how long)? @ -no Were there social determinants of health that impacted care today? How? (Homelessness, low income, unemployed, alcoholism, drug addiction, transportation, low edu. Level, literacy, decrease access to med. care, usp, rehab)? @ -none Was there de-escalation of care discussed even if they declined (Discuss DNR or withdrawal of care, Hospice)? DNR status @ -no What co-morbidities impacted this encounter? (DM, HTN, Smoking, COPD, CAD, Cancer, CVA, ARF, Chemo, Hep., AIDS, mental health diagnosis, sleep apnea, morbid obesity)? @ -none Was patient admitted / discharged? Hospital course, mention meds given and route, prescriptions, significant lab abnormalities, going to OR and other pertinent info. @ - 54 male this patient will be admitted for significant bilateral lower extremity cellulitis ulcers diabetic ulcers with uncontrolled blood sugar, blood sugar 560 no evidence of acidosis Admitted Undiagnosed new problem with uncertain prognosis? @ -no Drug Therapy requiring intensive monitoring for toxicity (Heparin, Nitro, I nsulin, Cardizem)? @ -no Were any procedures done? @ -no Diagnosis/symptom? @ -Cellulitis with uncontrolled diabetes Acute, or Chronic, or Acute on Chronic? @ -Acute Uncomplicated (without systemic symptoms) or Complicated (systemic symptoms)? @ -Complicated Side effects of treatment? @ -no Exacerbation, Progression, or Severe Exacerbation? @ -exacerbation Poses a threat to life or bodily function? How? (Chest pain, USA, RI, pneumonia, PE, COPD, DKA, ARF, appy, cholecystitis, CVA, Diverticulitis, Homicidal, Suicidal, threat to staff... and all critical care pts) @ -yes (Will Mckeon) Reevaluation #5: Differential Weakness: Hypoglycemia, shock, sepsis, hyponatremia, anemia, infection, RI, ETOH, adverse medicine reaction, overdose, stroke, this is not meant to be an all-inclusive list. (Will Mckeon) - Consultations Consultation #1: Spoke with carlee who agrees to admit this patient (Will Mckeon) Medical Decision Making <Meghan Doan - Last Filed: 04/12/24 17:34> - Lab Data Result diagrams: 04/16/24 02:59 04/16/24 02:59 <Will Mckeon - Last Filed: 04/16/24 17:54> - Medical Decision Making I completed the quick note portion of this chart signed Meghan Doan PA-C (Meghan Doan) 54 male this patient will be admitted for significant bilateral lower extremity cellulitis ulcers diabetic ulcers with uncontrolled blood sugar, blood sugar 560 no evidence of acidosis (Will Mckeon) - Lab Data Lab Results 04/12/24 04/12/24 04/12/24 Range/Units 18:50 18:50 18:50 WBC 7.1 (3.8-10.6) k/uL RBC 4.26 L (4.30-5.90) m/uL Hgb 12.5 L (13.0-17.5) gm/dL Hct 39.3 (39.0-53.0) % MCV 92.2 (80.0-100.0) fL MCH 29.4 (25.0-35.0) pg MCHC 31.9 (31.0-37.0) g/dL RDW 15.3 (11.5-15.5) % Plt Count 240 (150-450) k/uL MPV 7.8 Neutrophils % 72 % Lymphocytes % 13 % Monocytes % 7 % Eosinophils % 5 % Basophils % 0 % Neutrophils # 5.1 (1.3-7.7) k/uL Lymphocytes # 0.9 L (1.0-4.8) k/uL Monocytes # 0.5 (0-1.0) k/uL Eosinophils # 0.4 (0-0.7) k/uL Basophils # 0.0 (0-0.2) k/uL Hypochromasia Slight Sodium 124 L (137-145) mmol/L Potassium 5.6 H (3.5-5.1) mmol/L Chloride 95 L (98-107) mmol/L Carbon Dioxide 29 (22-30) mmol/L Anion Gap 0 mmol/L BUN 30 H (9-20) mg/dL Creatinine 1.85 H (0.66-1.25) mg/dL Est GFR (CKD-EPI)AfAm 47 (>60 ml/min/1.73 sqM) Est GFR (CKD-EPI)NonAf 41 (>60 ml/min/1.73 sqM) Glucose 560 H* (74-99) mg/dL Plasma Lactic Acid Kannan 1.4 (0.7-2.0) mmol/L Calcium 8.6 (8.4-10.2) mg/dL Total Bilirubin 0.7 (0.2-1.3) mg/dL AST 28 (17-59) U/L ALT 13 (4-49) U/L Alkaline Phosphatase 91 (38-126) U/L C-Reactive Protein 2.9 H (<1.0) mg/dL Total Protein 5.9 L (6.3-8.2) g/dL Albumin 2.7 L (3.5-5.0) g/dL Disposition <Meghan Doan - Last Filed: 04/12/24 17:34> Is patient prescribed a controlled substance at d/c from ED?: No Time of Disposition: 21:45 <Will Mckeon - Last Filed: 04/16/24 17:54> Clinical Impression: Bilateral lower leg cellulitis, Ulcer of lower extremity, Bilateral leg ulcer, Type 2 diabetes mellitus with other skin ulcer, Hyperglycemia Disposition: ADMITTED IP TO THIS HOSP Condition: Fair
[2024-04-12 19:11] LABS: Basophils % (A) 0 %; Eosinophils # (A) 0.4 k/uL (0-0.7); Eosinophils % (A) 5 %; HCT 39.3 % (39.0-53.0); HGB 12.5 gm/dL (13.0-17.5); Hypochromasia Slight; Lymphocytes # (A) 0.9 k/uL (1.0-4.8); Lymphocytes % (A) 13 %; MCH 29.4 pg (25.0-35.0); MCHC 31.9 g/dL (31.0-37.0); MCV 92.2 fL (80.0-100.0); Mean Platelet Volume 7.8; Monocytes # (A) 0.5 k/uL (0-1.0); Monocytes % (A) 7 %; Neutrophils # (A) 5.1 k/uL (1.3-7.7); Neutrophils % (A) 72 %; Platelet Count 240 k/uL (150-450); RBC 4.26 m/uL (4.30-5.90); RDW 15.3 % (11.5-15.5); WBC 7.1 k/uL (3.8-10.6)
[2024-04-12 19:22] LABS: ALT 13 U/L (4-49); African American GFR (CKD) 47 (>60 ml/min/1.73 sqM); Albumin 2.7 g/dL (3.5-5.0); Anion Gap 0 mmol/L; Blood Urea Nitrogen 30 mg/dL (9-20); C Reactive Protein 2.9 mg/dL (<1.0); Calcium 8.6 mg/dL (8.4-10.2); Carbon Dioxide 29 mmol/L (22-30); Chloride 95 mmol/L (98-107); Non-African American GFR(CKD) 41 (>60 ml/min/1.73 sqM); Sodium 124 mmol/L (137-145); Total Bilirubin 0.7 mg/dL (0.2-1.3); Total Protein 5.9 g/dL (6.3-8.2)
[2024-04-12 19:27] LABS: AST 28 U/L (17-59); Alkaline Phosphatase 91 U/L (38-126); Glucose 560 mg/dL (74-99); Potassium 5.6 mmol/L (3.5-5.1)
[2024-04-12] MEDS ORDERED: MORPHINE SULFATE 4 MG/ML SYRINGE IV PRN (21:44)
[2024-04-12] MEDS ORDERED: ONDANSETRON 4 MG/2 ML VIAL IVP PRN (21:44)
[2024-04-12] MEDS ORDERED: VANCOMYCIN IV PER PHARMACY 1 EACH MISC MISCELLANE PRN (21:44)
[2024-04-12] MEDS ORDERED: NALOXONE 0.4 MG/ML 1 ML VIAL IV PRN (21:44)
[2024-04-12] MEDS: INSULIN REGULAR 100 UNIT/ML VIAL (IM/SQ) SQ ONE (23:10)
[2024-04-12] MEDS: SODIUM CHLORIDE 0.9% 1,000 ML IV SCH (23:10)
[2024-04-13] MEDS: VANCOMYCIN 2,250 MG in SODIUM CHLORIDE 0.9% 500 ML 500 ML IVPB STA (00:13)
[2024-04-13] MEDS ORDERED: cloNIDine HCL 0.2 MG TAB PO PRN (04:27)
[2024-04-13] MEDS ORDERED: DEXTROSE 50% SYRINGE 50 ML IVP PRN ×2 (04:28)
[2024-04-13 05:28] LABS: Basophils % (A) 0 %; Eosinophils # (A) 0.3 k/uL (0-0.7); Eosinophils % (A) 4 %; HCT 41.3 % (39.0-53.0); HGB 12.7 gm/dL (13.0-17.5); Hypochromasia Slight; Lymphocytes % (A) 13 %; MCHC 30.7 g/dL (31.0-37.0); MCV 91.4 fL (80.0-100.0); Mean Platelet Volume 7.5; Monocytes # (A) 0.4 k/uL (0-1.0); Monocytes % (A) 6 %; Neutrophils # (A) 5.5 k/uL (1.3-7.7); Neutrophils % (A) 75 %; Platelet Count 266 k/uL (150-450); RBC 4.52 m/uL (4.30-5.90); RDW 15.4 % (11.5-15.5); WBC 7.3 k/uL (3.8-10.6)
--- NOTE | 2024-04-13 05:36 | P.HPIM ---
History of Present Illness H&P Date: 04/13/24 Chief Complaint: Lower extremity ulcer Patient is a 54-year-old male with type 2 diabetes with peripheral neuropathy who presented to the ED with complaint of lower extremity ulcer. The patient noticed worsening of the ulcers on his bilateral lower extremities over the past 3 to 4 days. He also states having some malodorous drainage as well as itching at the site of the ulcers. He reports a prior history of sepsis as a result of these ulcers. He was at the wound clinic the last time he had these ulcers(lasted for 3 to 4 months) and they had healed just a couple of weeks ago. He mentions at the end of his treatment at the wound clinic they scraped the skin which he thinks is what caused worsening of his ulcers. Denies fever, chills, chest pain, shortness of breath, cough, nausea, vomiting, abdominal pain, diarrhea. ED documentation reviewed. He was treated with ceftriaxone and vancomycin in the ED. Review of systems: Pertinent positives and negatives as discussed in HPI, a complete review of systems was performed and all other systems are negative. PMH: HFrEF, venous stasis ulcers and dermatitis, diabetes mellitus, CAD, asthma, hyperlipidemia, hypertension, [place], heart cath with stent in 2016 Social history: Tobacco: Former smoker Alcohol: Denies use Recreational drugs: Denies use Travel: No recent travel history Sick contacts: None Physical examination: Vitals: T97.7F, P 80 bpm, RR 16, BP 171/110, O2 sat 97% on room air General: non toxic, no distress, appears at stated age, obese Derm: Venous stasis dermatitis with multiple ulcers with mild surrounding erythema Head: atraumatic, normocephalic, symmetric Eyes: EOMI, anicteric sclera, pupils equal round reactive to light ENT: Nose and ears atraumatic Mouth: no lip lesion, mucus membranes moist Cardiovascular: S1S2 reg, no murmur,,bilateral peripheral leg edema +2 Lungs: CTA bilateral, no rhonchi, no rales, no accessory muscle use Abdominal: soft, nontender to palpation, no guarding Ext: muscle strength 5 out of 5 in all 4 extremities grossly, no gross muscle atrophy, no contractures, Neuro: CN II-XI grossly intact, no gross focal neuro deficits Psych: Alert, oriented, appropriate affect Assessment/Plan: Patient is a 54-year-old male with type II diabetes with peripheral neuropathy who presented to the ED for lower extremity wound Case discussed with ED provider and admission accepted for chronic lower extremity ulcers. #. Bilateral lower extremity ulcers with cellulitis Started on ceftriaxone 2 g IVPB every 24 hours ID consulted Blood culture, aerobic and anaerobic wound culture ordered elevated CRP 2.9 WBC 7.3 unremarkable s/p one time dose of vancomycin which should cover him for 24 hours dose adjuste d to renal function. await further ID recommendations #. Hypertensive urgency BP on admission 171/110, currently 158/96 Started on clonidine 0.2 mg p.o. every 8 hours as needed for SBP >180 Continue amlodipine 10 mg p.o. daily and losartan 50 mg p.o. daily #. Insulin-dependent diabetes mellitus Glucose 560 Insulin sliding scale and blood glucose monitoring Levemir 45 units SQ daily A1c ordered #. CKD stage 3b elevated BUN 30, elevated around baseline creatinine 1.85, GFR 41 Monitor BMP Monitor and replete electrolytes as required #. History of CAD Continue aspirin 81 mg p.o. daily #. Congestive heart failure with reduced EF Continue carvedilol, losartan 50 mg p.o. daily #. COPD Resume home meds Symbicort, Duonebs #. Hyperlipidemia Continue atorvastatin 80 mg PO HS #. Nausea and vomiting Continue zofran 4mg IVP Q8HR PRN F: 0.9 normal saline 75 mL/h E: Replete as required N: Consistent carbohydrate diet A: Ambulatory DVT prophylaxis: Heparin 5000 units SQ every 8 hours The patient is admitted with an anticipated less than 2 midnight stay for evaluation of lower extremity ulcer CODE STATUS: Full code Discussed with: Patient Anticipated discharge place: Home Past Medical History Past Medical History: Asthma, Coronary Artery Disease (CAD), Heart Failure, COPD, Diabetes Mellitus, Deep Vein Thrombosis (DVT), GERD/Reflux, Hyperl ipidemia, Hypertension, Myocardial Infarction ([place]), Renal Disease, Sleep Apnea/CPAP/BIPAP, Vascular Disorder Additional Past Medical History / Comment(s): 02/20/16 [place] with cardiac wqqldd-[id number]-aj wore life vest for 7 weeks, 2010 DVT RIGHT leg, bilateral lower leg cellulitis, bilateral varicose veins, PVD, NIDDM type II, BERTRAND with CPAP. UTI Mar 2021, cellulitis with open wounds on bilateral lower legs being treated in wound center 2021 released 2 weeks ago 04/12/24, H/o covid 2020 Last Myocardial Infarction Date:: 02/20/16 History of Any Multi-Drug Resistant Organisms: MRSA Date of last positivie culture/infection: 2018 MDRO Source:: bilateral legs Past Surgical History: Heart Catheterization With Stent Additional Past Surgical History / Comment(s): circumcision Additional Past Anesthesia/Blood Transfusion Reaction / Comment(s): Pt has never had anesthesia Date of Last Stent Placement:: 02/20/16 Past Psychological History: No Psychological Hx Reported Additional Psychological History / Comment(s): He is independent. Smoking Status: Former smoker Past Alcohol Use History: None Reported Additional Past Alcohol Use History / Comment(s): Pt states he started smoking at age 18 yrs and quit 02/20/16. Past Drug Use History: None Reported - Past Family History Father Family Medical History: Coronary Artery Disease (CAD), Diabetes Mellitus, Eye Disorder Additional Family Medical History / Comment(s): Bradycardia, blind. Father is in his early 70's. Mother Family Medical History: Coronary Artery Disease (CAD), Diabetes Mellitus Additional Family Medical History / Comment(s): Benign brain tumor. Mother is in her early 70's Medications and Allergies Home Medications Medication Instructions Recorded Confirmed Type Atorvastatin [Lipitor] 80 mg PO HS #30 tab 02/27/16 01/23/24 Rx Ipratropium/Albuterol Sulfate 1 puff INHALATION RT-QID 01/12/19 01/23/24 History [Combivent Respimat Inhaler] Omeprazole 20 mg PO DAILY 03/14/19 01/23/24 History Aspirin EC [Ecotrin Low Dose] 81 mg PO DAILY 10/17/20 01/23/24 History Fluticasone Propion/Salmeterol 1 puff INHALATION RT-BID 01/15/22 01/23/24 History [Wixela 250-50 Inhub] Insulin Glargine,Hum.rec.anlog 45 unit SQ DAILY 01/15/22 01/23/24 History [Lantus Solostar Pen] Multivitamins, Thera [Multivitamin 1 tab PO DAILY 01/15/22 01/23/24 History (formulary)] carvediloL 37.5 mg PO BID-W/MEALS 01/15/22 01/23/24 History Bumetanide [BUMEX] 1 mg PO DAILY 01/23/24 01/23/24 History Ergocalciferol (Vitamin D2) 1,250 mcg PO Q7D 01/23/24 01/23/24 History [Drisdol (50,000 Iu)] Sodium Chloride Irrig Solution 1 applic IRRIGATION DIRECTED PRN 01/23/24 01/23/24 History [Sodium Chloride Irrig] Cephalexin [Keflex] 500 mg PO TID #15 cap 02/01/24 Rx Losartan [Cozaar] 50 mg PO DAILY #60 tab 02/01/24 Rx amLODIPine [Norvasc] 10 mg PO DAILY #90 tab 02/01/24 Rx Allergies Allergy/AdvReac Type Severity Reaction Status Date / Time tetracycline Allergy Rash/Hives Verified 04/12/24 17:21 Physical Exam Vitals: Vital Signs Temp Pulse Pulse Resp BP BP Pulse Ox 04/13/24 02:46 158/96 04/13/24 01:16 98.6 F 73 18 171/93 96 04/13/24 00:01 75 169/93 04/12/24 23:35 97.7 F 80 16 171/110 97 04/12/24 22:10 73 18 164/92 97 04/12/24 17:19 98.0 F 89 20 174/106 97 Intake and Output 04/12/24 04/12/24 04/13/24 14:59 22:59 06:59 Other: Weight 154.221 kg Results CBC & Chem 7: 04/13/24 04:51 04/12/24 18:50 Labs: Abnormal Lab Results - Last 24 Hours (Table) 04/12/24 04/12/24 Range/Units 18:50 18:50 RBC 4.26 L (4.30-5.90) m/uL Hgb 12.5 L (13.0-17.5) gm/dL Lymphocytes # 0.9 L (1.0-4.8) k/uL Sodium 124 L (137-145) mmol/L Potassium 5.6 H (3.5-5.1) mmol/L Chloride 95 L (98-107) mmol/L BUN 30 H (9-20) mg/dL Creatinine 1.85 H (0.66-1.25) mg/dL Glucose 560 H* (74-99) mg/dL C-Reactive Protein 2.9 H (<1.0) mg/dL Total Protein 5.9 L (6.3-8.2) g/dL Albumin 2.7 L (3.5-5.0) g/dL Thrombosis Risk Factor Assmnt - Choose All That Apply Any of the Below Risk Factors Present?: Yes Each Factor Represents 1 point: Age 41-60 years, Obesity (BMI >25), Swollen legs (current) Other Risk Factors: No Other congenital or acquired thrombophilia - If yes, enter type in comment: No Thrombosis Risk Factor Assessment Total Risk Factor Score: 3 Thrombosis Risk Factor Assessment Level: Moderate Risk Assessment and Plan Assessment: I have seen and evaluated the patient today. I Discussed the case with the resident and agree with the resident's findings I edited the assessment and plan as necessary as documented in the resident's note.
[2024-04-13 05:50] LABS: ALT 11 U/L (4-49); AST 17 U/L (17-59); African American GFR (CKD) 52 (>60 ml/min/1.73 sqM); Albumin 2.6 g/dL (3.5-5.0); Alkaline Phosphatase 85 U/L (38-126); Anion Gap 1 mmol/L; Blood Urea Nitrogen 28 mg/dL (9-20); Calcium 8.9 mg/dL (8.4-10.2); Carbon Dioxide 32 mmol/L (22-30); Chloride 98 mmol/L (98-107); Glucose 264 mg/dL (74-99); Non-African American GFR(CKD) 45 (>60 ml/min/1.73 sqM); Phosphorus 4.2 mg/dL (2.5-4.5); Potassium 4.5 mmol/L (3.5-5.1); Sodium 131 mmol/L (137-145); Total Bilirubin 0.5 mg/dL (0.2-1.3); Total Protein 5.9 g/dL (6.3-8.2)
[2024-04-13] MEDS: INSULIN ASPART (NovoLOG) 100 UNIT/ML VIAL SQ SCH (08:36)
[2024-04-13] MEDS: ASPIRIN 81 MG PO SCH (08:37)
[2024-04-13] MEDS: LOSARTAN 50 MG TAB PO SCH (08:37)
[2024-04-13] MEDS: carvediloL 12.5 MG TAB PO SCH (08:37)
[2024-04-13] MEDS: HEPARIN SODIUM,PORCINE 5,000 UNIT/ML 1 ML VIAL SQ SCH (08:37)
[2024-04-13] MEDS: amLODIPine 10 MG TAB PO SCH (08:37)
[2024-04-13] MEDS: PANTOPRAZOLE 40 MG TABLET PO SCH (08:37)
[2024-04-13] MEDS: INSULIN DETEMIR (LEVEMIR) 100 UNIT/ML SYR SQ SCH (08:47)
[2024-04-13] MEDS: IPRATROPIUM-ALBUTEROL 3 ML NEB INHALATION SCH (10:01)
[2024-04-13] MEDS: SYMBICORT 80-4.5 MCG INHALER INHALATION SCH (10:01)
[2024-04-13] MEDS: BUMETANIDE 1 MG TAB PO SCH (11:52)
[2024-04-13] MEDS: VANCOMYCIN 2,250 MG in SODIUM CHLORIDE 0.9% 500 ML 500 ML IVPB SCH (16:25)
[2024-04-13] MEDS: ATORVASTATIN 80 MG TAB PO SCH (20:26)
--- NOTE | 2024-04-13 22:59 | P.CONS ---
History of Present Illness - Reason for Consult Consult date: 04/13/24 Cellulitis Requesting physician: Will Mckeon - Chief Complaint Bilateral extremity swelling redness and drainage x days - History of Present Illness Patient is a 54-year-old male with a past medical history significant for coronary artery disease COPD diabetes mellitus DVT hypertension hyperlipidemia and history of lower extremity ulcer and cellulitis patient presenting to the hospital for evaluation of worsening bilateral lower extremity wounds and this patient symptom has been getting worse over the last 1 week he has noticed to have increasing swelling to the lower leg especially the right leg with weeping edema and superficial ulceration patient did have mild dull aching pain to the leg main symptom remains to be increasing swelling redness and did have some drainage patient did have some chills denies high-grade fever on presentation to the hospital the patient was afebrile and no fever have been recorded subsequently patient was not tachycardic hypotensive or hypoxic he did have white count 7.1 BUN/creatinine has been mildly elevated liver enzymes are normal local culture have been obtained patient was started on Rocephin and van comycin infectious disease was consulted for further management of antibiotic therapy Review of Systems Positive point and negatives has been mentioned in the HPI, complete review of systems was performed and all other systems are negative Past Medical History Past Medical History: Asthma, Coronary Artery Disease (CAD), Heart Failure, COPD, Diabetes Mellitus, Deep Vein Thrombosis (DVT), GERD/Reflux, Hyperlipidemia, Hypertension, Myocardial Infarction ([place]), Renal Disease, Sleep Apnea/CPAP/BIPAP, Vascular Disorder Additional Past Medical History / Comment(s): 02/20/16 [place] with cardiac bpkrhg-Grag-cy wore life vest for 7 weeks, 2010 DVT RIGHT leg, bilateral lower leg cellulitis, bilateral varicose veins, PVD, NIDDM type II, BERTRAND with CPAP. UTI Mar 2021, cellulitis with open wounds on bilateral lower legs being treated in wound center 2021 released 2 weeks ago 04/12/24, H/o covid 2020 Last Myocardial Infarction Date:: 02/20/16 History of Any Multi-Drug Resistant Organisms: MRSA Year Discovered:: 2018 MDRO Source:: bilateral legs Past Surgical History: Heart Catheterization With Stent Additional Past Surgical History / Comment(s): circumcision Additional Past Anesthesia/Blood Transfusion Reaction / Comm: Pt has never had anesthesia Date of Last Stent Placement:: 02/20/16 Past Psychological History: No Psychological Hx Reported Additional Psychological History / Comment(s): He is independent. Smoking Status: Former smoker Past Alcohol Use History: None Reported Additional Past Alcohol Use History / Comment(s): Pt states he started smoking at age 18 yrs and quit 02/20/16. Past Drug Use History: None Reported - Past Family History Father Family Medical History: Coronary Artery Disease (CAD), Diabetes Mellitus, Eye Disorder Additional Family Medical History / Comment(s): Bradycardia, blind. Father is in his early 70's. Mother Family Medical History: Coronary Artery Disease (CAD), Diabetes Mellitus Additional Family Medical History / Comment(s): Benign brain tumor. Mother is in her early 70's Medications and Allergies Home Medications Medication Instructions Recorded Confirmed Type Atorvastatin [Lipitor] 80 mg PO HS #30 tab 02/27/16 04/13/24 Rx Ipratropium/Albuterol Sulfate 1 puff INHALATION RT-QID 01/12/19 04/13/24 History [Combivent Respimat Inhaler] Omeprazole 20 mg PO DAILY 03/14/19 04/13/24 History Aspirin EC [Ecotrin Low Dose] 81 mg PO DAILY 10/17/20 04/13/24 History Fluticasone Propion/Salmeterol 1 puff INHALATION RT-BID 01/15/22 04/13/24 History [Wixela 250-50 Inhub] Insulin Glargine,Hum.rec.anlog 45 unit SQ DAILY 01/15/22 04/13/24 History [Lantus Solostar Pen] Multivitamins, Thera [Multivitamin 1 tab PO DAILY 01/15/22 04/13/24 History (formulary)] carvediloL 37.5 mg PO BID-W/MEALS 01/15/22 04/13/24 History Bumetanide [BUMEX] 1 mg PO DAILY 01/23/24 04/13/24 History Ergocalciferol (Vitamin D2) 1,250 mcg PO Q7D 01/23/24 04/13/24 History [Drisdol (50,000 Iu)] Losartan [Cozaar] 50 mg PO DAILY #60 tab 02/01/24 04/13/24 Rx amLODIPine [Norvasc] 10 mg PO DAILY #90 tab 02/01/24 04/13/24 Rx Allergies Allergy/AdvReac Type Severity Reaction Status Date / Time tetracycline Allergy Rash/Hives Verified 04/12/24 17:21 Physical Exam Vitals: Vital Signs Temp Pulse Pulse Resp BP BP Pulse Ox 04/13/24 08:00 98.4 F 79 16 162/97 98 04/13/24 02:46 158/96 04/13/24 01:16 98.6 F 73 18 171/93 96 04/13/24 00:01 75 169/93 04/12/24 23:35 97.7 F 80 16 171/110 97 04/12/24 22:10 73 18 164/92 97 04/12/24 17:19 98.0 F 89 20 174/106 97 Intake and Output 04/12/24 04/13/24 04/13/24 22:59 06:59 14:59 Intake Total 590 240 Balance 590 240 Intake: Oral 590 240 Other: # Voids 2 Weight 154.221 kg GENERAL DESCRIPTION: Middle-aged male lying in bed, no distress. No tachypnea or accessory muscle of respiration use. HEENT: Shows Pallor , no scleral icterus. Oral mucous membrane is dry. No pharyngeal erythema or thrush NECK: Trachea central, no thyromegaly. LUNGS: Unlabored breathing. Clear to auscultation anteriorly. No wheeze or crackle. HEART: S1, S2, regular rate and rhythm. No loud murmur ABDOMEN: Soft, no tenderness , guarding or rigidity, no organomegaly EXTREMITIES: Bilateral lower extremity with swelling he did have ulceration to the right leg with purulent drainage SKIN: No rash, no masses palpable. NEUROLOGICAL: The patient is awake, alert, oriented x3, mood and affect normal. Results CBC & Chem 7: 04/13/24 04:51 04/14/24 06:05 Labs: Abnormal Lab Results - Last 24 Hours (Table) 04/12/24 04/12/24 04/13/24 Range/Units 18:50 18:50 04:51 RBC 4.26 L (4.30-5.90) m/uL Hgb 12.5 L 12.7 L (13.0-17.5) gm/dL MCHC 30.7 L (31.0-37.0) g/dL Lymphocytes # 0.9 L (1.0-4.8) k/uL Sodium 124 L (137-145) mmol/L Potassium 5.6 H (3.5-5.1) mmol/L Chloride 95 L (98-107) mmol/L Carbon Dioxide (22-30) mmol/L BUN 30 H (9-20) mg/dL Creatinine 1.85 H (0.66-1.25) mg/dL Glucose 560 H* (74-99) mg/dL C-Reactive Protein 2.9 H (<1.0) mg/dL Total Protein 5.9 L (6.3-8.2) g/dL Albumin 2.7 L (3.5-5.0) g/dL 04/13/24 Range/Units 04:51 RBC (4.30-5.90) m/uL Hgb (13.0-17.5) gm/dL MCHC (31.0-37.0) g/dL Lymphocytes # (1.0-4.8) k/uL Sodium 131 L (137-145) mmol/L Potassium (3.5-5.1) mmol/L Chloride (98-107) mmol/L Carbon Dioxide 32 H (22-30) mmol/L BUN 28 H (9-20) mg/dL Creatinine 1.69 H (0.66-1.25) mg/dL Glucose 264 H (74-99) mg/dL C-Reactive Protein (<1.0) mg/dL Total Protein 5.9 L (6.3-8.2) g/dL Albumin 2.6 L (3.5-5.0) g/dL Assessment and Plan (1) Bilateral leg ulcer Current Visit: Yes Status: Acute Code(s): L97.919 - NON-PRS CHRONIC ULC UNSP PRT OF R LOW LEG W UNSP SEVERITY; L97.929 - NON-PRS CHRONIC ULC UNSP PRT OF L LOW LEG W UNSP SEVERITY SNOMED Code(s): 27145266 (2) Bilateral lower leg cellulitis Current Visit: Yes Status: Acute Code(s): L03.116 - CELLULITIS OF LEFT LOWER LIMB; L03.115 - CELLULITIS OF RIGHT LOWER LIMB SNOMED Code(s): 438459604 Plan: 1patient to the hospital with increasing swelling ulceration and redness to bilateral extremity more marked on the right leg than left leg concerning for venous stasis ulcer and secondary cellulitis likely from gram-positive skin birdie gram-negative infection less likely but not entirely excluded 2tetracycline allergy. 3nursing staff advised to apply dry Aquacel silver dressing to the open wound followed by Bobby wrap from just above the toe to below the knee 4continue with the vancomycin while watching his kidney function closely as well as Rocephin for the culture to finalize We will follow on clinical condition and cultures to further adjust medication if needed Thank you for this consultation we will follow the patient along with you Dictation was produced using [employer] dictation software. please excuse any grammatical, word or spelling errors. Time with Patient: Greater than 30
[2024-04-14 09:54] LABS: Potassium 5.6 mmol/L (3.5-5.1)
[2024-04-14 09:55] LABS: African American GFR (CKD) 44 (>60 ml/min/1.73 sqM); Anion Gap 1 mmol/L; Blood Urea Nitrogen 30 mg/dL (9-20); Calcium 8.6 mg/dL (8.4-10.2); Carbon Dioxide 31 mmol/L (22-30); Chloride 99 mmol/L (98-107); Glucose 226 mg/dL (74-99); Non-African American GFR(CKD) 38 (>60 ml/min/1.73 sqM); Sodium 131 mmol/L (137-145)
--- NOTE | 2024-04-14 14:11 | P.PN ---
Subjective Progress Note Date: 04/14/24 Patient is a 54-year-old male with type 2 diabetes with peripheral neuropathy who presented to the ED with complaint of lower extremity ulcer. The patient noticed worsening of the ulcers on his bilateral lower extremities over the past 3 to 4 days. He also states having some malodorous drainage as well as itching at the site of the ulcers. He reports a prior history of sepsis as a result of these ulcers. He was at the wound clinic the last time he had these ulcers(lasted for 3 to 4 months) and they had healed just a couple of weeks ago. He mentions at the end of his treatment at the wound clinic they scraped the skin which he thinks is what caused worsening of his ulcers. Denies fever, chills, chest pain, shortness of breath, cough, nausea, vomiting, abdominal pain, diarrhea. ED documentation reviewed. He was treated with ceftriaxone and vancomycin in the ED. workup there Progress note 4patient seen and examined at bedside. Patient sitting upright in bed while eating breakfast. Patient states continued itchiness of legs bilaterally, no pain. He is ambulating only to restroom at this time. Review of systems: Pertinent positives and negatives as discussed in HPI, a complete review of systems was performed and all other systems are negative. Physical examination: Vitals Reviewed General: non toxic, no distress, appears at stated age, obese Derm: Venous stasis dermatitis with multiple ulcers with mild surrounding erythema Head: atraumatic, normocephalic, symmetric Eyes: EOMI, anicteric sclera, pupils equal round reactive to light ENT: Nose and ears atraumatic Mouth: no lip lesion, mucus membranes moist Cardiovascular: S1S2 reg, no murmur,,bilateral peripheral leg edema +2 Lungs: CTA bilateral, no rhonchi, no rales, no accessory muscle use Abdominal: soft, nontender to palpation, no guarding Ext: muscle strength 5 out of 5 in all 4 extremities grossly, no gross muscle atrophy, no contractures Neuro: CN II-XI grossly intact, no gross focal neuro deficits Psych: Alert, oriented, appropriate affect Assessment/Plan: Patient is a 54-year-old male with type II diabetes with peripheral neuropathy who presented to the ED for lower extremity wound Case discussed with ED provider and admission accepted for chronic lower extremity ulcers. #. Bilateral lower extremity ulcers with cellulitis Bacteremia, Staph epidermidis, possible contaminant Blood culture with MECA gene, staph, strep. Wound culture with group B strep, Enterobacter aerogenes. elevated CRP 2.9 WBC 7.3 unremarkable Continue vancomycin pharmacy dosed and ceftriaxone 2 g every 24 hours ID following Repeat blood cultures #. CKD stage 3b Initial elevated BUN 30, elevated around baseline creatinine 1.85, GFR 41 Creatinine today 1.93, monitor for CHAVO with continued IV vancomycin, Monitor BMP Monitor and replete electrolytes as required #. Hypertensive urgency BP on admission 171/110, 158/96 => 138/79 Continue on clonidine 0.2 mg p.o. every 8 hours as needed for SBP >180 Continue amlodipine 10 mg p.o. daily and losartan 50 mg p.o. daily #. Insulin-dependent diabetes mellitus Poorly controlled diabetic Severe hyperglycemia Glucose 560 => 226 Insulin sliding scale q. ACH S, monitor for hypoglycemia Increase Levemir 45 units SQ twice daily from daily HbA1c 12.1 #. History of CAD Continue aspirin 81 mg p.o. daily #. Congestive heart failure with reduced EF Continue carvedilol, losartan 50 mg p.o. daily #. COPD Resume home meds Symbicort, Duonebs #. Hyperlipidemia Continue atorvastatin 80 mg PO HS #. Nausea and vomiting Continue zofran 4mg IVP Q8HR PRN F: P.o. E: Replete as required N: Consistent carbohydrate diet A: Ambulatory DVT prophylaxis: Heparin 5000 units SQ every 8 hours CODE STATUS: Full code Discussed with: Patient Anticipated discharge place: Home Patient is severely ill, needs close monitoring, prognosis guarded. I have seen and evaluated the patient today. Discussed with the resident and agree with the residents finding and plan as documented in the resident's note. Changes highlighted in blue font. Objective - Vital Signs Vital signs: Vital Signs Temp 98.0 F 04/14/24 12:29 Pulse 52 L 04/14/24 12:29 Resp 16 04/14/24 12:29 BP 138/79 04/14/24 12:29 Pulse Ox 98 04/14/24 12:29 FiO2 Intake & Output 04/13/24 04/14/24 04/14/24 18:59 06:59 18:59 Intake Total 2280 1440 Balance 2280 1440 Intake: Oral 2280 1440 Other: Voiding Method Toilet Toilet Toilet Urinal Urinal Urinal # Voids 5 3 # Bowel Movements 1 - Labs CBC & Chem 7: 04/13/24 04:51 04/14/24 06:05 Labs: Abnormal Lab Results - Last 24 Hours (Table) 04/14/24 04/14/24 Range/Units 06:05 06:05 Sodium 131 L (137-145) mmol/L Potassium 5.6 H (3.5-5.1) mmol/L Carbon Dioxide 31 H (22-30) mmol/L BUN 30 H (9-20) mg/dL Creatinine 1.93 H (0.66-1.25) mg/dL Glucose 226 H (74-99) mg/dL Hemoglobin A1c 12.1 H (<=6.0) % Microbiology - Last 24 Hours (Table) 04/13/24 05:20 Gram Stain - Preliminary Leg - Right Wound Culture - Preliminary Strep agalactiae - (group b) Enterobacter aerogenes 04/12/24 23:00 Blood Culture Gram Stain - Preliminary Blood Blood Culture - Preliminary Molecular ID
--- NOTE | 2024-04-14 14:56 | P.PN ---
Subjective Progress Note Date: 04/14/24 Principal diagnosis: Reason for follow-up is bilateral lower extremity venous stasis ulcer and cellulitis Patient is a 54-year-old male with a past medical history significant for coronary artery disease COPD diabetes mellitus DVT hypertension hyperlipidemia and history of lower extremity ulcer and cellulitis patient presenting to the hospital for evaluation of worsening bilateral lower extremity wounds, patient be diagnosed with 1 the lower extremity venous's ulcer and cellulitis. On today's evaluation that is 04/14/2024, Patient is afebrile patient is currently on room air and denies having any shortness of breath, the patient denies any chest pain or cough, the patient denies any nausea vomiting did not have any abdominal pain and no diarrhea, patient pain to the lower extremity has slightly decreased in intensity. Patient did have a creatinine 1.93 local cultures are growing group B strep and Enterobacter blood cultures positive for MRSA Objective - Vital Signs Vital signs: Vital Signs Temp 98.0 F 04/14/24 12:29 Pulse 52 L 04/14/24 12:29 Resp 16 04/14/24 12:29 BP 138/79 04/14/24 12:29 Pulse Ox 98 04/14/24 12:29 FiO2 Intake & Output 04/13/24 04/14/24 04/14/24 18:59 06:59 18:59 Intake Total 2280 1440 Balance 2280 1440 Intake: Oral 2280 1440 Other: Voiding Method Toilet Toilet Toilet Urinal Urinal Urinal # Voids 5 3 # Bowel Movements 1 - Exam GENERAL DESCRIPTION: Middle-age male lying in bed in no distress RESPIRATORY SYSTEM: Unlabored breathing , decreased breath sounds at bases HEART: S1 S2 regular rate and rhythm , ABDOMEN: Soft , no tenderness EXTREMITIES: Lower extremity wounds are currently dressed minimal drainage on the dressing - Labs CBC & Chem 7: 04/13/24 04:51 04/14/24 06:05 Labs: Abnormal Lab Results - Last 24 Hours (Table) 04/14/24 04/14/24 Range/Units 06:05 06:05 Sodium 131 L (137-145) mmol/L Potassium 5.6 H (3.5-5.1) mmol/L Carbon Dioxide 31 H (22-30) mmol/L BUN 30 H (9-20) mg/dL Creatinine 1.93 H (0.66-1.25) mg/dL Glucose 226 H (74-99) mg/dL Hemoglobin A1c 12.1 H (<=6.0) % Microbiology - Last 24 Hours (Table) 04/13/24 05:20 Gram Stain - Preliminary Leg - Right Wound Culture - Preliminary Strep agalactiae - (group b) Enterobacter aerogenes 04/12/24 23:00 Blood Culture Gram Stain - Preliminary Blood Blood Culture - Preliminary Molecular ID Assessment and Plan (1) Bilateral leg ulcer Current Visit: Yes Status: Acute Code(s): L97.919 - NON-PRS CHRONIC ULC UNSP PRT OF R LOW LEG W UNSP SEVERITY; L97.929 - NON-PRS CHRONIC ULC UNSP PRT OF L LOW LEG W UNSP SEVERITY SNOMED Code(s): 61283911 (2) Bilateral lower leg cellulitis Current Visit: Yes Status: Acute Code(s): L03.116 - CELLULITIS OF LEFT LOWER LIMB; L03.115 - CELLULITIS OF RIGHT LOWER LIMB SNOMED Code(s): 382137807 (3) Positive blood culture Current Visit: Yes Status: Acute Code(s): R78.81 - BACTEREMIA SNOMED Code(s): 435192329 Plan: 1patient to the hospital with increasing swelling ulceration and redness to bilateral extremity more marked on the right leg than left leg concerning for venous stasis ulcer and secondary cellulitis likely from gram-positive skin birdie gram-negative infection less likely but not entirely excluded 2local wound care with a dry Aquacel silver dressing to the open wound followed by Bobby wrap from just above the toe to below the knee 3patient did have positive blood culture with MRSE possible skin contamination blood cultures to be of document clearance Forlocal culture growing Enterobacter and Streptococcus we will discontinue Rocephin and vancomycin start the patient on cefepime Dictation was produced using [employer] dictation software. please excuse any grammatical, word or spelling errors. Time with Patient: Less than 30
[2024-04-14] MEDS: CEFEPIME 2 GM in SODIUM CHLORIDE 0.9% 100 ML IVPB SCH (15:45)
[2024-04-14 16:58] LABS: Glucose,Whole Blood 320 mg/dL (70-110)
[2024-04-14 20:38] LABS: Glucose,Whole Blood 316 mg/dL (70-110)
[2024-04-14] MEDS: INSULIN DETEMIR (LEVEMIR) 100 UNIT/ML SYR SQ SCH (20:52)
[2024-04-15 06:15] LABS: African American GFR (CKD) 35 (>60 ml/min/1.73 sqM); Anion Gap 2 mmol/L; Blood Urea Nitrogen 36 mg/dL (9-20); Calcium 8.4 mg/dL (8.4-10.2); Carbon Dioxide 27 mmol/L (22-30); Chloride 102 mmol/L (98-107); Glucose 247 mg/dL (74-99); Non-African American GFR(CKD) 30 (>60 ml/min/1.73 sqM); Potassium 4.7 mmol/L (3.5-5.1); Sodium 131 mmol/L (137-145)
[2024-04-15 06:58] LABS: Glucose,Whole Blood 225 mg/dL (70-110)
[2024-04-15 06:59] LABS: Glucose,Whole Blood 259 mg/dL (70-110)
[2024-04-15 07:01] LABS: Glucose,Whole Blood 268 mg/dL (70-110)
[2024-04-15 07:01] LABS: Glucose,Whole Blood 404 mg/dL (70-110)
[2024-04-15 07:17] LABS: Glucose,Whole Blood 348 mg/dL (70-110)
[2024-04-15 07:17] LABS: Glucose,Whole Blood 266 mg/dL (70-110)
[2024-04-15 07:18] LABS: Glucose,Whole Blood 212 mg/dL (70-110)
[2024-04-15 08:14] LABS: Glucose,Whole Blood 365 mg/dL (70-110)
[2024-04-15 08:14] LABS: Glucose,Whole Blood 411 mg/dL (70-110)
[2024-04-15 08:14] LABS: Glucose,Whole Blood 409 mg/dL (70-110)
[2024-04-15 08:38] LABS: Basophils # (A) 0.03 X 10*3/uL (0.00-0.10); Basophils % (A) 0.4 %; Eosinophils # (A) 0.49 X 10*3/uL (0.04-0.35); Eosinophils % (A) 6.6 %; HCT 39.1 % (39.6-50.0); HGB 12.2 g/dL (13.0-17.0); Lymphocytes # (A) 1.12 X 10*3/uL (0.90-5.00); MCH 28.8 pg (27.0-32.0); MCHC 31.2 g/dL (32.0-37.0); MCV 92.4 FL (80.0-97.0); Mean Platelet Volume 11.1 FL (9.5-12.2); Monocytes # (A) 0.46 X 10*3/uL (0.20-1.00); Monocytes % (A) 6.2 %; NRBC Per 100 WBC 0 X 10*3/uL (0.00-0.01); Neutrophils # (A) 5.34 X 10*3/uL (1.80-7.70); Neutrophils % (A) 71.4 %; Platelet Count 283 X 10*3/uL (140-440); RBC 4.23 X 10*6/uL (4.40-5.60); RDW 15.5 % (11.5-14.5); WBC 7.47 X 10*3/uL (4.50-10.00)
[2024-04-15] MEDS ORDERED: VANCOMYCIN 2,250 MG in SODIUM CHLORIDE 0.9% 500 ML 500 ML IVPB SCH (09:00)
--- NOTE | 2024-04-15 11:13 | US ---
EXAMINATION TYPE: US kidneys/renal and bladder DATE OF EXAM: 04/15/2024 COMPARISON: US 01/24/2024 CLINICAL INDICATION: Male, 54 years old with history of Cyrus; CYRUS. Hx left kidney biopsy, patient stat es he is waiting on the results for the biopsy. TECHNIQUE: Grayscale and color Doppler imaging of the bilateral kidneys and urinary bladder: EXAM MEASUREMENTS: Right Kidney: 13.3 x 6.1 x 6.7 cm Left Kidney: 12.4 x 5.7 x 5.2 cm Exam is limited due to patient body habitus. Right Kidney: Enlarged. Left Kidney: *Limited visibility. No hydronephrosis or masses seen Bladder: Appears anechoic. Bilateral Jets seen: No IMPRESSION: 1. No renal mass, renal calcification, hydronephrosis or perinephric fluid collection. No cortical at rophy. 2. Unremarkable urinary bladder. [facility], Workstation: [facility], 04/15/2024 11:10 AM
--- NOTE | 2024-04-15 11:48 | P.CONS ---
History of Present Illness - Reason for Consult Consult date: 04/15/24 wound care - History of Present Illness This is a 54-year-old patient known to the wound care center who was recently discharged from service due to healed ulcerations being seen on [address]. for open ulcerations to bilateral lower extremities. Patient has history of venous insufficiency and nonhealing ulcerations to bilateral lower extremities. We have utilized compression wrap and absorptive silver to the site. Patient does have CircAid's at home however he does not routinely wear them. Patient's past medical history significant for diabetes coronary artery disease, heart failure, DVT, GERD, hyperlipidemia my hot, hypertension. Review Of Systems: Constitutional: No fever, no chills, no night sweats. No weight change. No weakness, fatigue or lethargy. No daytime sleepiness. Integumentary:reports wounds, no lesions. No rash or pruritus. No unusual bruising. No change in hair or nails. Physical exam: General Appearance: Alert, cooperative, no distress, appears stated age. Skin: See HPI all other Skin color, texture, tugor normal, no rashes or lesions. Neurologic: Alert oriented x3 Assessment: 1. Nonhealing ulceration with fat layer exposure other site of left lower extremity 2. Nonhealing ulceration with other site right lower extremity with fat layer exposure 3. Diabetes with skin ulceration 4. Chronic venous hypertension with inflammation and ulceration bilateral lower extremities Plan: 1.Apply absorptive silver, saline moist gauze, dry gauze, rolled gauze secure with paper tape. Wrap with Bobby wrap for compression. Change Thursday F rid. Elevate legs over heart for 30 minutes 3 times a day. Thank you for the consultation any questions please contact the wound care center DNP note has been reviewed and discussed with Dr. Livingston and the impression and plan of care has been directed as dictated. Past Medical History Past Medical History: Asthma, Coronary Artery Disease (CAD), Heart Failure, COPD, Diabetes Mellitus, Deep Vein Thrombosis (DVT), GERD/Reflux, Hyperlipidemia, Hypertension, Myocardial Infarction ([place]), Renal Disease, Sleep Apnea/CPAP/BIPAP, Vascular Disorder Additional Past Medical History / Comment(s): 02/20/16 [place] with cardiac [id number] wore life vest for 7 weeks, 2010 DVT RIGHT leg, bilateral lower leg cellulitis, bilateral varicose veins, PVD, NIDDM type II, BERTRAND with CPAP. UTI Mar 2021, cellulitis with open wounds on bilateral lower legs being treated in wound center 2021 released 2 weeks ago 04/12/24, H/o covid 2020 Last Myocardial Infarction Date:: 02/20/16 History of Any Multi-Drug Resistant Organisms: MRSA Year Discovered:: 2018 MDRO Source:: bilateral legs Past Surgical History: Heart Catheterization With Stent Additional Past Surgical History / Comment(s): circumcision Additional Past Anesthesia/Blood Transfusion Reaction / Comm: Pt has never had anesthesia Date of Last Stent Placement:: 02/20/16 Past Psychological History: No Psychological Hx Reported Additional Psychological History / Comment(s): He is independent. Smoking Status: Former smoker Past Alcohol Use History: None Reported Additional Past Alcohol Use History / Comment(s): Pt states he started smoking at age 18 yrs and quit 02/20/16. Past Drug Use History: None Reported - Past Family History Father Family Medical History: Coronary Artery Disease (CAD), Diabetes Mellitus, Eye Disorder Additional Family Medical History / Comment(s): Bradycardia, blind. Father is in his early 70's. Mother Family Medical History: Coronary Artery Disease (CAD), Diabetes Mellitus Additional Family Medical History / Comment(s): Benign brain tumor. Mother is in her early 70's Medications and Allergies Home Medications Medication Instructions Recorded Confirmed Type Atorvastatin [Lipitor] 80 mg PO HS #30 tab 02/27/16 04/13/24 Rx Ipratropium/Albuterol Sulfate 1 puff INHALATION RT-QID 01/12/19 04/13/24 History [Combivent Respimat Inhaler] Omeprazole 20 mg PO DAILY 03/14/19 04/13/24 History Aspirin EC [Ecotrin Low Dose] 81 mg PO DAILY 10/17/20 04/13/24 History Fluticasone Propion/Salmeterol 1 puff INHALATION RT-BID 01/15/22 04/13/24 History [Wixela 250-50 Inhub] Insulin Glargine,Hum.rec.anlog 45 unit SQ DAILY 01/15/22 04/13/24 History [Lantus Solostar Pen] Multivitamins, Thera [Multivitamin 1 tab PO DAILY 01/15/22 04/13/24 History (formulary)] carvediloL 37.5 mg PO BID-W/MEALS 01/15/22 04/13/24 History Bumetanide [BUMEX] 1 mg PO DAILY 01/23/24 04/13/24 History Ergocalciferol (Vitamin D2) 1,250 mcg PO Q7D 01/23/24 04/13/24 History [Drisdol (50,000 Iu)] Losartan [Cozaar] 50 mg PO DAILY #60 tab 02/01/24 04/13/24 Rx amLODIPine [Norvasc] 10 mg PO DAILY #90 tab 02/01/24 04/13/24 Rx Allergies Allergy/AdvReac Type Severity Reaction Status Date / Time tetracycline Allergy Rash/Hives Verified 04/12/24 17:21 Physical Exam Vitals: Vital Signs Temp Pulse Pulse Resp BP Pulse Ox 04/15/24 08:59 80 04/15/24 08:48 77 04/15/24 08:18 98 F 61 18 121/77 96 04/15/24 02:00 97.6 F 64 16 134/83 94 L 04/14/24 20:00 97.7 F 65 16 121/79 96 04/14/24 19:32 78 04/14/24 19:24 76 04/14/24 15:32 76 04/14/24 15:24 80 04/14/24 12:29 98.0 F 52 L 16 138/79 98 04/14/24 12:09 84 04/14/24 12:01 78 Intake and Output 04/14/24 04/15/24 04/15/24 22:59 06:59 14:59 Intake Total 2100 Balance 2100 Intake: Oral 2100 Other: Voiding Method Toilet Urinal # Voids 7 3 # Bowel Movements 1 Results CBC & Chem 7: 04/15/24 05:34 04/15/24 05:34 Labs: Abnormal Lab Results - Last 24 Hours (Table) 04/12/24 04/12/24 04/13/24 Range/Units 22:14 23:01 00:06 RBC (4.40-5.60) X 10*6/uL Hgb (13.0-17.0) g/dL Hct (39.6-50.0) % MCHC (32.0-37.0) g/dL RDW (11.5-14.5) % Eosinophils # (0.04-0.35) X 10*3/uL Sodium (137-145) mmol/L BUN (9-20) mg/dL Creatinine (0.66-1.25) mg/dL Glucose (74-99) mg/dL POC Glucose (mg/dL) 411 H 409 H 365 H (70-110) mg/dL 04/13/24 04/13/24 04/13/24 Range/Units 07:41 11:59 17:15 RBC (4.40-5.60) X 10*6/uL Hgb (13.0-17.0) g/dL Hct (39.6-50.0) % MCHC (32.0-37.0) g/dL RDW (11.5-14.5) % Eosinophils # (0.04-0.35) X 10*3/uL Sodium (137-145) mmol/L BUN (9-20) mg/dL Creatinine (0.66-1.25) mg/dL Glucose (74-99) mg/dL POC Glucose (mg/dL) 266 H 348 H 268 H (70-110) mg/dL 04/13/24 04/14/24 04/14/24 Range/Units 20:22 06:58 12:08 RBC (4.40-5.60) X 10*6/uL Hgb (13.0-17.0) g/dL Hct (39.6-50.0) % MCHC (32.0-37.0) g/dL RDW (11.5-14.5) % Eosinophils # (0.04-0.35) X 10*3/uL Sodium (137-145) mmol/L BUN (9-20) mg/dL Creatinine (0.66-1.25) mg/dL Glucose (74-99) mg/dL POC Glucose (mg/dL) 404 H 225 H 259 H (70-110) mg/dL 04/14/24 04/14/24 04/15/24 Range/Units 16:57 20:36 05:34 RBC 4.23 L (4.40-5.60) X 10*6/uL Hgb 12.2 L (13.0-17.0) g/dL Hct 39.1 L (39.6-50.0) % MCHC 31.2 L (32.0-37.0) g/dL RDW 15.5 H (11.5-14.5) % Eosinophils # 0.49 H (0.04-0.35) X 10*3/uL Sodium (137-145) mmol/L BUN (9-20) mg/dL Creatinine (0.66-1.25) mg/dL Glucose (74-99) mg/dL POC Glucose (mg/dL) 320 H 316 H (70-110) mg/dL 04/15/24 04/15/24 Range/Units 05:34 07:17 RBC (4.40-5.60) X 10*6/uL Hgb (13.0-17.0) g/dL Hct (39.6-50.0) % MCHC (32.0-37.0) g/dL RDW (11.5-14.5) % Eosinophils # (0.04-0.35) X 10*3/uL Sodium 131 L (137-145) mmol/L BUN 36 H (9-20) mg/dL Creatinine 2.34 H (0.66-1.25) mg/dL Glucose 247 H (74-99) mg/dL POC Glucose (mg/dL) 212 H (70-110) mg/dL Microbiology - Last 24 Hours (Table) 04/12/24 23:00 Blood Culture Gram Stain - Final Blood Blood Culture - Final Coagulase Negative Staph Coagulase Negative Staph#2 Molecular ID 04/13/24 05:20 Gram Stain - Final Leg - Right Wound Culture - Final Strep agalactiae - (group b) Enterobacter aerogenes Assessment and Plan (1) Non-pressure chronic ulcer of other part of right lower leg with fat layer exposed Current Visit: No Status: Acute Code(s): L97.812 - NON-PRS CHRONIC ULCER OTH PRT R LOW LEG W FAT LAYER EXPOSED SNOMED Code(s): 25688497381331098 (2) Non-pressure chronic ulcer of left calf with fat layer exposed Current Visit: No Status: Acute Code(s): L97.222 - NON-PRESSURE CHRONIC ULCER OF LEFT CALF W FAT LAYER EXPOSED SNOMED Code(s): 68340505583039591 (3) Type 2 diabetes mellitus with other skin ulcer Current Visit: Yes Status: Acute Code(s): E11.622 - TYPE 2 DIABETES MELLITUS WITH OTHER SKIN ULCER; L98.499 - NON-PRESSURE CHRONIC ULCER OF SKIN OF SITES W UNSP SEVERITY SNOMED Code(s): 814555953129212 (4) Chronic venous hypertension (idiopathic) with ulcer and inflammation of bilateral lower extremity Current Visit: No Status: Acute Code(s): I87.333 - CHRONIC VENOUS HTN W ULCER AND INFLAM OF BILATERAL LOW EXTRM; L97.919 - NON-PRS CHRONIC ULC UNSP PRT OF R LOW LEG W UNSP SEVERITY; L97.929 - NON-PRS CHRONIC ULC UNSP PRT OF L LOW LEG W UNSP SEVERITY SNOMED Code(s): 255237982463805
[2024-04-15 12:05] LABS: Glucose,Whole Blood 202 mg/dL (70-110)
[2024-04-15 13:23] VITALS: BMI 48.7
--- NOTE | 2024-04-15 15:13 | P.PN ---
Subjective Progress Note Date: 04/15/24 Principal diagnosis: Reason for follow-up is bilateral lower extremity venous stasis ulcer and cellulitis Patient is a 54-year-old male with a past medical history significant for coronary artery disease COPD diabetes mellitus DVT hypertension hyperlipidemia and history of lower extremity ulcer and cellulitis patient presenting to the hospital for evaluation of worsening bilateral lower extremity wounds, patient be diagnosed with 1 the lower extremity venous's ulcer and cellulitis. On today's evaluation that is 04/15/2024, patient has been afebrile, patient is breathing comfortably and is currently on room air, patient denies having any significant cough no chest pain, patient denies nausea vomiting or diarrhea and no abdominal pain, mention pain to the lower extremity has decreased in intensity. Patient white count 7.47, creatinine is 2.34 Objective - Vital Signs Vital signs: Vital Signs Temp 98 F 04/15/24 08:18 Pulse 75 04/15/24 12:59 Resp 18 04/15/24 08:18 BP 121/77 04/15/24 08:18 Pulse Ox 96 04/15/24 08:18 FiO2 Intake & Output 04/14/24 04/15/24 04/15/24 18:59 06:59 18:59 Intake Total 3540 Balance 3540 Weight 154.221 kg Intake: Oral 3540 Other: Voiding Method Toilet Toilet Toilet Urinal Urinal Urinal # Voids 7 3 # Bowel Movements 1 - Exam GENERAL DESCRIPTION: Middle-age male lying in bed in no distress RESPIRATORY SYSTEM: Unlabored breathing , decreased breath sounds at bases HEART: S1 S2 regular rate and rhythm , ABDOMEN: Soft , no tenderness EXTREMITIES: Lower extremity wounds are currently dressed minimal drainage on the dressing - Labs CBC & Chem 7: 04/15/24 05:34 04/15/24 05:34 Labs: Abnormal Lab Results - Last 24 Hours (Table) 04/12/24 04/12/24 04/13/24 Range/Units 22:14 23:01 00:06 RBC (4.40-5.60) X 10*6/uL Hgb (13.0-17.0) g/dL Hct (39.6-50.0) % MCHC (32.0-37.0) g/dL RDW (11.5-14.5) % Eosinophils # (0.04-0.35) X 10*3/uL Sodium (137-145) mmol/L BUN (9-20) mg/dL Creatinine (0.66-1.25) mg/dL Glucose (74-99) mg/dL POC Glucose (mg/dL) 411 H 409 H 365 H (70-110) mg/dL 04/13/24 04/13/24 04/13/24 Range/Units 07:41 11:59 17:15 RBC (4.40-5.60) X 10*6/uL Hgb (13.0-17.0) g/dL Hct (39.6-50.0) % MCHC (32.0-37.0) g/dL RDW (11.5-14.5) % Eosinophils # (0.04-0.35) X 10*3/uL Sodium (137-145) mmol/L BUN (9-20) mg/dL Creatinine (0.66-1.25) mg/dL Glucose (74-99) mg/dL POC Glucose (mg/dL) 266 H 348 H 268 H (70-110) mg/dL 04/13/24 04/14/24 04/14/24 Range/Units 20:22 06:58 12:08 RBC (4.40-5.60) X 10*6/uL Hgb (13.0-17.0) g/dL Hct (39.6-50.0) % MCHC (32.0-37.0) g/dL RDW (11.5-14.5) % Eosinophils # (0.04-0.35) X 10*3/uL Sodium (137-145) mmol/L BUN (9-20) mg/dL Creatinine (0.66-1.25) mg/dL Glucose (74-99) mg/dL POC Glucose (mg/dL) 404 H 225 H 259 H (70-110) mg/dL 04/14/24 04/14/24 04/15/24 Range/Units 16:57 20:36 05:34 RBC 4.23 L (4.40-5.60) X 10*6/uL Hgb 12.2 L (13.0-17.0) g/dL Hct 39.1 L (39.6-50.0) % MCHC 31.2 L (32.0-37.0) g/dL RDW 15.5 H (11.5-14.5) % Eosinophils # 0.49 H (0.04-0.35) X 10*3/uL Sodium (137-145) mmol/L BUN (9-20) mg/dL Creatinine (0.66-1.25) mg/dL Glucose (74-99) mg/dL POC Glucose (mg/dL) 320 H 316 H (70-110) mg/dL 04/15/24 04/15/24 04/15/24 Range/Units 05:34 07:17 12:04 RBC (4.40-5.60) X 10*6/uL Hgb (13.0-17.0) g/dL Hct (39.6-50.0) % MCHC (32.0-37.0) g/dL RDW (11.5-14.5) % Eosinophils # (0.04-0.35) X 10*3/uL Sodium 131 L (137-145) mmol/L BUN 36 H (9-20) mg/dL Creatinine 2.34 H (0.66-1.25) mg/dL Glucose 247 H (74-99) mg/dL POC Glucose (mg/dL) 212 H 202 H (70-110) mg/dL Microbiology - Last 24 Hours (Table) 04/13/24 05:20 Anaerobic Culture - Preliminary Leg - Right 04/12/24 23:00 Blood Culture Gram Stain - Final Blood Blood Culture - Final Coagulase Negative Staph Coagulase Negative Staph#2 Molecular ID 04/13/24 05:20 Gram Stain - Final Leg - Right Wound Culture - Final Strep agalactiae - (group b) Enterobacter aerogenes Assessment and Plan (1) Bilateral leg ulcer Current Visit: Yes Status: Acute Code(s): L97.919 - NON-PRS CHRONIC ULC UNSP PRT OF R LOW LEG W UNSP SEVERITY; L97.929 - NON-PRS CHRONIC ULC UNSP PRT OF L LOW LEG W UNSP SEVERITY SNOMED Code(s): 29405723 (2) Bilateral lower leg cellulitis Current Visit: Yes Status: Acute Code(s): L03.116 - CELLULITIS OF LEFT LOWER LIMB; L03.115 - CELLULITIS OF RIGHT LOWER LIMB SNOMED Code(s): 063758989 (3) Positive blood culture Current Visit: Yes Status: Acute Code(s): R78.81 - BACTEREMIA SNOMED Code(s): 402016107 Plan: 1patient to the hospital with increasing swelling ulceration and redness to bilateral extremity more marked on the right leg than left leg concerning for venous stasis ulcer and secondary cellulitis likely from gram-positive skin birdie gram-negative infection less likely but not entirely excluded 2local wound care with a dry Aquacel silver dressing to the open wound followed by Bobby wrap from just above the toe to below the knee 3patient did have positive blood culture with MRSE possible skin contamination blood cultures has been repeated so far negative 4local culture growing Enterobacter and Streptococcus patient to continue cefepime hopefully will be able to finish therapy with oral antibiotics Dictation was produced using [employer] dictation software. please excuse any grammatical, word or spelling errors. Time with Patient: Less than 30
--- NOTE | 2024-04-15 15:55 | P.PN ---
Subjective Progress Note Date: 04/15/24 Patient is a 54-year-old male with type 2 diabetes with peripheral neuropathy who presented to the ED with complaint of lower extremity ulcer. The patient noticed worsening of the ulcers on his bilateral lower extremities over the past 3 to 4 days. He also states having some malodorous drainage as well as itching at the site of the ulcers. He reports a prior history of sepsis as a result of these ulcers. He was at the wound clinic the last time he had these ulcers(lasted for 3 to 4 months) and they had healed just a couple of weeks ago. He mentions at the end of his treatment at the wound clinic they scraped the skin which he thinks is what caused worsening of his ulcers. Denies fever, chills, chest pain, shortness of breath, cough, nausea, vomiting, abdominal pain, diarrhea. ED documentation reviewed. He was treated with ceftriaxone and vancomycin in the ED. workup there Progress note 4patient seen and examined at bedside. Patient states improved itchiness of legs bilaterally, no pain. He is ambulating only to restroom at this time. Review of systems: Pertinent positives and negatives as discussed in HPI, a complete review of systems was performed and all other systems are negative. Physical examination: Vitals Reviewed General: non toxic, no distress, appears at stated age, obese Derm: Venous stasis dermatitis with multiple ulcers with mild surrounding erythema Head: atraumatic, normocephalic, symmetric Eyes: EOMI, anicteric sclera, pupils equal round reactive to light ENT: Nose and ears atraumatic Mouth: no lip lesion, mucus membranes moist Cardiovascular: S1S2 reg, no murmur,,bilateral peripheral leg edema +2 Lungs: CTA bilateral, no rhonchi, no rales, no accessory muscle use Abdominal: soft, nontender to palpation, no guarding Ext: muscle strength 5 out of 5 in all 4 extremities grossly, no gross muscle atrophy, no contractures Neuro: CN II-XI grossly intact, no gross focal neuro deficits Psych: Alert, oriented, appropriate affect Labs reviewed todayWBC 7.47, hemoglobin 12.2, platelets 283, sodium 131, potassium 4.7, chloride 102, bicarb 27, BUN 36, creatinine 2.34, glucose 247 Imaging reviewed todayUltrasound kidney and bladderfindings unremarkable Assessment/Plan: Patient is a 54-year-old male with type II diabetes with peripheral neuropathy who presented to the ED for lower extremity wound Case discussed with ED provider and admission accepted for chronic lower extremity ulcers. #. Bilateral lower extremity ulcers with cellulitis Bacteremia, Staph epidermidis, possible contaminant Blood culture with MECA gene, staph, strep. Wound culture with group B strep, Enterobacter aerogenes. elevated CRP 2.9 Initial WBC 7.3 unremarkable Continue vancomycin pharmacy dosed and ceftriaxone 2 g every 24 hours Encourage ambulation ID following Pending repeat blood cultures #. CKD stage 3b, with CHAVO Initial elevated BUN 30, elevated around baseline creatinine 1.85, GFR 41 Creatinine initial 1.85, monitor for CHAVO with continued IV vancomycin Ordered UA, urine creatinine, sodium and nitrogen Ultrasound kidney and bladderfindings unremarkable Monitor BMP Monitor and replete electrolytes as required #. Hypertensive urgency BP on admission 171/110, 158/96 => 138/79 Continue on clonidine 0.2 mg p.o. every 8 hours as needed for SBP >180 Continue amlodipine 10 mg p.o. daily and losartan 50 mg p.o. daily #. Insulin-dependent diabetes mellitus Poorly controlled diabetic Severe hyperglycemia Glucose 560 => 226 Insulin sliding scale q. ACH S, monitor for hypoglycemia Increase Levemir 45 units SQ twice daily from daily HbA1c 12.1 #. History of CAD Continue aspirin 81 mg p.o. daily #. Congestive heart failure with reduced EF Continue carvedilol, losartan 50 mg p.o. daily #. COPD Resume home meds Symbicort, Duonebs #. Hyperlipidemia Continue atorvastatin 80 mg PO HS #. Nausea and vomiting Continue zofran 4mg IVP Q8HR PRN F: P.o. E: Replete as required N: Consistent carbohydrate diet A: Ambulatory DVT prophylaxis: Heparin 5000 units SQ every 8 hours CODE STATUS: Full code Discussed with: Patient Anticipated discharge date: Possibly tomorrow Anticipated discharge place: Home I have seen and evaluated the patient today. Discussed with the resident and agree with the residents finding and plan as documented in the resident's note. Changes highlighted in blue font. Objective - Vital Signs Vital signs: Vital Signs Temp 98.1 F 04/15/24 12:37 Pulse 75 04/15/24 12:59 Resp 16 04/15/24 12:37 BP 121/77 04/15/24 12:37 Pulse Ox 96 04/15/24 12:37 FiO2 Intake & Output 04/14/24 04/15/24 04/15/24 18:59 06:59 18:59 Intake Total 3540 Balance 3540 Weight 154.221 kg Intake: Oral 3540 Other: Voiding Method Toilet Toilet Toilet Urinal Urinal Urinal # Voids 7 3 # Bowel Movements 1 - Labs CBC & Chem 7: 04/15/24 05:34 04/15/24 05:34 Labs: Abnormal Lab Results - Last 24 Hours (Table) 04/12/24 04/12/24 04/13/24 Range/Units 22:14 23:01 00:06 RBC (4.40-5.60) X 10*6/uL Hgb (13.0-17.0) g/dL Hct (39.6-50.0) % MCHC (32.0-37.0) g/dL RDW (11.5-14.5) % Eosinophils # (0.04-0.35) X 10*3/uL Sodium (137-145) mmol/L BUN (9-20) mg/dL Creatinine (0.66-1.25) mg/dL Glucose (74-99) mg/dL POC Glucose (mg/dL) 411 H 409 H 365 H (70-110) mg/dL 04/13/24 04/13/24 04/13/24 Range/Units 07:41 11:59 17:15 RBC (4.40-5.60) X 10*6/uL Hgb (13.0-17.0) g/dL Hct (39.6-50.0) % MCHC (32.0-37.0) g/dL RDW (11.5-14.5) % Eosinophils # (0.04-0.35) X 10*3/uL Sodium (137-145) mmol/L BUN (9-20) mg/dL Creatinine (0.66-1.25) mg/dL Glucose (74-99) mg/dL POC Glucose (mg/dL) 266 H 348 H 268 H (70-110) mg/dL 04/13/24 04/14/24 04/14/24 Range/Units 20:22 06:58 12:08 RBC (4.40-5.60) X 10*6/uL Hgb (13.0-17.0) g/dL Hct (39.6-50.0) % MCHC (32.0-37.0) g/dL RDW (11.5-14.5) % Eosinophils # (0.04-0.35) X 10*3/uL Sodium (137-145) mmol/L BUN (9-20) mg/dL Creatinine (0.66-1.25) mg/dL Glucose (74-99) mg/dL POC Glucose (mg/dL) 404 H 225 H 259 H (70-110) mg/dL 04/14/24 04/14/24 04/15/24 Range/Units 16:57 20:36 05:34 RBC 4.23 L (4.40-5.60) X 10*6/uL Hgb 12.2 L (13.0-17.0) g/dL Hct 39.1 L (39.6-50.0) % MCHC 31.2 L (32.0-37.0) g/dL RDW 15.5 H (11.5-14.5) % Eosinophils # 0.49 H (0.04-0.35) X 10*3/uL Sodium (137-145) mmol/L BUN (9-20) mg/dL Creatinine (0.66-1.25) mg/dL Glucose (74-99) mg/dL POC Glucose (mg/dL) 320 H 316 H (70-110) mg/dL 04/15/24 04/15/24 04/15/24 Range/Units 05:34 07:17 12:04 RBC (4.40-5.60) X 10*6/uL Hgb (13.0-17.0) g/dL Hct (39.6-50.0) % MCHC (32.0-37.0) g/dL RDW (11.5-14.5) % Eosinophils # (0.04-0.35) X 10*3/uL Sodium 131 L (137-145) mmol/L BUN 36 H (9-20) mg/dL Creatinine 2.34 H (0.66-1.25) mg/dL Glucose 247 H (74-99) mg/dL POC Glucose (mg/dL) 212 H 202 H (70-110) mg/dL Microbiology - Last 24 Hours (Table) 04/13/24 05:20 Anaerobic Culture - Preliminary Leg - Right 04/12/24 23:00 Blood Culture Gram Stain - Final Blood Blood Culture - Final Coagulase Negative Staph Coagulase Negative Staph#2 Molecular ID 04/13/24 05:20 Gram Stain - Final Leg - Right Wound Culture - Final Strep agalactiae - (group b) Enterobacter aerogenes
[2024-04-15 16:08] LABS: Amorphous Sediment,Urine Rare /hpf; Appearance,Urine Clear (Clear); Bacteria,Urine Rare /hpf; Bilirubin,Urine Negative (Negative); Blood,Urine Trace (Negative); Color,Urine Colorless; Glucose,Urine (UA) 3+ (Negative); Ketones,Urine Negative (Negative); Leukocyte Esterase,Urine Trace (Negative); Mucus,Urine Rare /hpf; Nitrite,Urine Negative (Negative); Protein,Urine 3+ (Negative); RBC,Urine 2 /hpf (0-5); Specific Gravity,Urine 1.014 (1.001-1.035); Squamous Epithelial Cell,Urine 1 /hpf (0-4); Urobilinogen,Urine <2.0 mg/dL (<2.0); WBC,Urine 4 /hpf (0-5)
[2024-04-15 17:19] LABS: Glucose,Whole Blood 187 mg/dL (70-110)
[2024-04-15 20:15] LABS: Glucose,Whole Blood 244 mg/dL (70-110)
[2024-04-16 07:23] LABS: Glucose,Whole Blood 235 mg/dL (70-110)
[2024-04-16 11:34] LABS: Basophils # (A) 0.03 X 10*3/uL (0.00-0.10); Basophils % (A) 0.5 %; Eosinophils % (A) 6.3 %; HCT 37.4 % (39.6-50.0); HGB 11.6 g/dL (13.0-17.0); Lymphocytes # (A) 0.88 X 10*3/uL (0.90-5.00); Lymphocytes % (A) 13.9 %; MCH 28.7 pg (27.0-32.0); MCV 92.6 FL (80.0-97.0); Mean Platelet Volume 10.9 FL (9.5-12.2); Monocytes # (A) 0.48 X 10*3/uL (0.20-1.00); Monocytes % (A) 7.6 %; NRBC Per 100 WBC 0 X 10*3/uL (0.00-0.01); Neutrophils # (A) 4.53 X 10*3/uL (1.80-7.70); Neutrophils % (A) 71.5 %; Platelet Count 287 X 10*3/uL (140-440); RBC 4.04 X 10*6/uL (4.40-5.60); RDW 15.4 % (11.5-14.5); WBC 6.33 X 10*3/uL (4.50-10.00)
[2024-04-16 12:08] LABS: Glucose,Whole Blood 268 mg/dL (70-110)
[2024-04-16 13:05] LABS: BUN/Creat Ratio 16.27 Ratio (12.00-20.00); Blood Urea Nitrogen 35.8 mg/dL (9.0-27.0); Calcium 8.1 mg/dL (8.7-10.3); Carbon Dioxide 23.2 mmol/L (21.6-31.8); Chloride 100 mmol/L (96-109); Glucose 303 mg/dL (70-110); Sodium 133 mmol/L (135-145)
--- NOTE | 2024-04-16 13:37 | P.PN ---
Subjective Progress Note Date: 04/16/24 Principal diagnosis: Reason for follow-up is bilateral lower extremity venous stasis ulcer and cellulitis Patient is a 54-year-old male with a past medical history significant for coronary artery disease COPD diabetes mellitus DVT hypertension hyperlipidemia and history of lower extremity ulcer and cellulitis patient presenting to the hospital for evaluation of worsening bilateral lower extremity wounds, patient be diagnosed with 1 the lower extremity venous's ulcer and cellulitis. On today's evaluation that is 04/16/2024, Patient is afebrile this morning patient denies having any chest pain shortness of breath or cough, the patient is currently on room air, patient denies any abdominal pain no diarrhea no nausea no vomiting, denies pain to the lower extremity wound area. Patient white count 6.33, creatinine is 2.2 Objective - Vital Signs Vital signs: Vital Signs Temp 97.9 F 04/16/24 07:23 Pulse 72 04/16/24 11:31 Resp 16 04/16/24 07:23 BP 162/90 04/16/24 07:23 Pulse Ox 98 04/16/24 07:23 FiO2 Intake & Output 04/15/24 04/16/24 04/16/24 18:59 06:59 18:59 Intake Total 540 Balance 540 Weight 154.221 kg Intake: Oral 540 Other: Voiding Method Toilet Urinal # Voids 3 - Exam GENERAL DESCRIPTION: Middle-age male lying in bed in no distress RESPIRATORY SYSTEM: Unlabored breathing , decreased breath sounds at bases HEART: S1 S2 regular rate and rhythm , ABDOMEN: Soft , no tenderness EXTREMITIES: Lower extremity wounds are drying out swelling redness has decreased - Labs CBC & Chem 7: 04/16/24 02:59 04/16/24 02:59 Labs: Abnormal Lab Results - Last 24 Hours (Table) 04/15/24 04/15/24 04/15/24 Range/Units 14:16 17:18 20:13 RBC (4.40-5.60) X 10*6/uL Hgb (13.0-17.0) g/dL Hct (39.6-50.0) % MCHC (32.0-37.0) g/dL RDW (11.5-14.5) % Lymphocytes # (0.90-5.00) X 10*3/uL Eosinophils # (0.04-0.35) X 10*3/uL Sodium (135-145) mmol/L BUN (9.0-27.0) mg/dL Creatinine (0.6-1.5) mg/dL Est GFR (CKD-EPI) (>=60) Glucose (70-110) mg/dL POC Glucose (mg/dL) 187 H 244 H (70-110) mg/dL Calcium (8.7-10.3) mg/dL Urine Protein 3+ H (Negative) Urine Glucose (UA) 3+ H (Negative) Urine Blood Trace H (Negative) Ur Leukocyte Esterase Trace H (Negative) Amorphous Sediment Rare H (None) /hpf Urine Bacteria Rare H (None) /hpf Urine Mucus Rare H (None) /hpf 04/16/24 04/16/24 04/16/24 Range/Units 02:59 02:59 07:21 RBC 4.04 L (4.40-5.60) X 10*6/uL Hgb 11.6 L (13.0-17.0) g/dL Hct 37.4 L (39.6-50.0) % MCHC 31.0 L (32.0-37.0) g/dL RDW 15.4 H (11.5-14.5) % Lymphocytes # 0.88 L (0.90-5.00) X 10*3/uL Eosinophils # 0.40 H (0.04-0.35) X 10*3/uL Sodium 133 L (135-145) mmol/L BUN 35.8 H (9.0-27.0) mg/dL Creatinine 2.2 H (0.6-1.5) mg/dL Est GFR (CKD-EPI) 35 L (>=60) Glucose 303 H (70-110) mg/dL POC Glucose (mg/dL) 235 H (70-110) mg/dL Calcium 8.1 L (8.7-10.3) mg/dL Urine Protein (Negative) Urine Glucose (UA) (Negative) Urine Blood (Negative) Ur Leukocyte Esterase (Negative) Amorphous Sediment (None) /hpf Urine Bacteria (None) /hpf Urine Mucus (None) /hpf 04/16/24 Range/Units 12:06 RBC (4.40-5.60) X 10*6/uL Hgb (13.0-17.0) g/dL Hct (39.6-50.0) % MCHC (32.0-37.0) g/dL RDW (11.5-14.5) % Lymphocytes # (0.90-5.00) X 10*3/uL Eosinophils # (0.04-0.35) X 10*3/uL Sodium (135-145) mmol/L BUN (9.0-27.0) mg/dL Creatinine (0.6-1.5) mg/dL Est GFR (CKD-EPI) (>=60) Glucose (70-110) mg/dL POC Glucose (mg/dL) 268 H (70-110) mg/dL Calcium (8.7-10.3) mg/dL Urine Protein (Negative) Urine Glucose (UA) (Negative) Urine Blood (Negative) Ur Leukocyte Esterase (Negative) Amorphous Sediment (None) /hpf Urine Bacteria (None) /hpf Urine Mucus (None) /hpf Microbiology - Last 24 Hours (Table) 04/14/24 15:02 Blood Culture - Preliminary Blood 04/13/24 05:20 Anaerobic Culture - Preliminary Leg - Right 04/12/24 23:00 Blood Culture Gram Stain - Final Blood Blood Culture - Final Coagulase Negative Staph Coagulase Negative Staph#2 Molecular ID 04/13/24 05:20 Gram Stain - Final Leg - Right Wound Culture - Final Strep agalactiae - (group b) Enterobacter aerogenes Assessment and Plan (1) Bilateral leg ulcer Current Visit: Yes Status: Acute Code(s): L97.919 - NON-PRS CHRONIC ULC UNSP PRT OF R LOW LEG W UNSP SEVERITY; L97.929 - NON-PRS CHRONIC ULC UNSP PRT OF L LOW LEG W UNSP SEVERITY SNOMED Code(s): 03037065 (2) Bilateral lower leg cellulitis Current Visit: Yes Status: Acute Code(s): L03.116 - CELLULITIS OF LEFT LOWER LIMB; L03.115 - CELLULITIS OF RIGHT LOWER LIMB SNOMED Code(s): 343478192 (3) Positive blood culture Current Visit: Yes Status: Acute Code(s): R78.81 - BACTEREMIA SNOMED Code(s): 867843776 Plan: 1patient to the hospital with increasing swelling ulceration and redness to bilateral extremity more marked on the right leg than left leg concerning for venous stasis ulcer and secondary cellulitis likely from gram-positive skin birdie gram-negative infection less likely but not entirely excluded 2local wound care with a dry Aquacel silver dressing to the open wound followed by Bobby wrap from just above the toe to below the knee 3patient did have positive blood culture with MRSE possible skin contamination blood cultures has been repeated so far negative 4local culture growing Enterobacter and Streptococcus patient to continue cefepime while inpatient with the plan to finish therapy with oral Cipro and Keflex when stable for discharge Dictation was produced using [employer] dictation software. please excuse any grammatical, word or spelling errors. Time with Patient: Less than 30
--- NOTE | 2024-04-16 14:24 | P.PN ---
Subjective Progress Note Date: 04/16/24 Patient is a 54-year-old male with type 2 diabetes with peripheral neuropathy who presented to the ED with complaint of lower extremity ulcer. The patient noticed worsening of the ulcers on his bilateral lower extremities over the past 3 to 4 days. He also states having some malodorous drainage as well as itching at the site of the ulcers. He reports a prior history of sepsis as a result of these ulcers. He was at the wound clinic the last time he had these ulcers(lasted for 3 to 4 months) and they had healed just a couple of weeks ago. He mentions at the end of his treatment at the wound clinic they scraped the skin which he thinks is what caused worsening of his ulcers. Denies fever, chills, chest pain, shortness of breath, cough, nausea, vomiting, abdominal pain, diarrhea. ED documentation reviewed. He was treated with ceftriaxone and vancomycin in the ED. workup there Progress note 4patient seen and examined at bedside. Patient states improved itchiness of legs bilaterally, no pain. He was encouraged to ambulate and sit up in chair when able to. He is having good urinary output, eating and ambulating well. Review of systems: Pertinent positives and negatives as discussed in HPI, a complete review of systems was performed and all other systems are negative. Physical examination: Vitals Reviewed General: non toxic, no distress, appears at stated age, obese Derm: Venous stasis dermatitis with multiple ulcers with mild surrounding erythema Head: atraumatic, normocephalic, symmetric Eyes: EOMI, anicteric sclera, pupils equal round reactive to light ENT: Nose and ears atraumatic Mouth: no lip lesion, mucus membranes moist Cardiovascular: S1S2 reg, no murmur,,bilateral peripheral leg edema +2 Lungs: CTA bilateral, no rhonchi, no rales, no accessory muscle use Abdominal: soft, nontender to palpation, no guarding Ext: muscle strength 5 out of 5 in all 4 extremities grossly, no gross muscle atrophy, no contractures Neuro: CN II-XI grossly intact, no gross focal neuro deficits Psych: Alert, oriented, appropriate affect Labs reviewed todayWBC 6.33, hemoglobin 11.6, MCV 92.6, platelets 287, sodium 133, potassium 5.0, chloride 100, bicarb 23.2, BUN 35.8, creatinine 2.2, glucose 303. UA w/ glucose 3+, protein 3+, trace LE. Urine creatinine Na, nitrates are WNL. Imaging reviewed todaynone Assessment/Plan: Patient is a 54-year-old male with type II diabetes with peripheral neuropathy who presented to the ED for lower extremity wound Case discussed with ED provider and admission accepted for chronic lower extremity ulcers. #. Bilateral lower extremity ulcers with cellulitis Bacteremia, Staph epidermidis, possible contaminant Blood culture with MECA gene, staph, strep. Wound culture with group B strep, Enterobacter aerogenes. elevated CRP 2.9 Initial WBC 7.3 unremarkable Continue ceftriaxone 2 g every 24 hours day #3 and discontinue vancomycin Encourage ambulation ID following Pending repeat blood cultures On discharge plan to switch antibiotics to Cipro and Keflex #. CKD stage 3b, with CHAVO Initial elevated BUN 30, elevated around baseline creatinine 1.85, GFR 41 Creatinine initial 1.85, vancomycin discontinued UA w/ glucose 3+, protein 3+, trace LE. Urine creatinine Na, nitrates are WNL. Ultrasound kidney and bladderfindings unremarkable Monitor BMP Monitor and replete electrolytes as required #. Hypertensive urgency BP on admission 171/110, 158/96 => 138/79 Continue on clonidine 0.2 mg p.o. every 8 hours as needed for SBP >180 Continue amlodipine 10 mg p.o. daily and losartan 50 mg p.o. daily #. Insulin-dependent diabetes mellitus Poorly controlled diabetic Severe hyperglycemia Glucose 560 => 226 => 303 Insulin sliding scale q. ACH S, monitor for hypoglycemia Increase Levemir 45 units SQ twice daily from daily HbA1c 12.1 #. History of CAD Continue aspirin 81 mg p.o. daily #. Congestive heart failure with reduced EF Continue carvedilol, losartan 50 mg p.o. daily #. COPD Resume home meds Symbicort, Duonebs #. Hyperlipidemia Continue atorvastatin 80 mg PO HS #. Nausea and vomiting Continue zofran 4mg IVP Q8HR PRN F: P.o. E: Replete as required N: Consistent carbohydrate diet A: Ambulatory DVT prophylaxis: Heparin 5000 units SQ every 8 hours CODE STATUS: Full code Discussed with: Patient Anticipated discharge date: Possibly tomorrow Anticipated discharge place: Home I have seen and evaluated the patient today. Discussed with the resident and agree with the residents finding and plan as documented in the resident's note. Changes highlighted in blue font. Objective - Vital Signs Vital signs: Vital Signs Temp 98.3 F 04/16/24 13:28 Pulse 64 04/16/24 13:28 Resp 16 04/16/24 13:28 BP 126/79 04/16/24 13:28 Pulse Ox 96 04/16/24 13:28 FiO2 Intake & Output 04/15/24 04/16/24 04/16/24 18:59 06:59 18:59 Intake Total 540 Balance 540 Weight 154.221 kg Intake: Oral 540 Other: Voiding Method Toilet Urinal # Voids 3 - Labs CBC & Chem 7: 04/16/24 02:59 04/16/24 02:59 Labs: Abnormal Lab Results - Last 24 Hours (Table) 04/15/24 04/15/24 04/15/24 Range/Units 14:16 17:18 20:13 RBC (4.40-5.60) X 10*6/uL Hgb (13.0-17.0) g/dL Hct (39.6-50.0) % MCHC (32.0-37.0) g/dL RDW (11.5-14.5) % Lymphocytes # (0.90-5.00) X 10*3/uL Eosinophils # (0.04-0.35) X 10*3/uL Sodium (135-145) mmol/L BUN (9.0-27.0) mg/dL Creatinine (0.6-1.5) mg/dL Est GFR (CKD-EPI) (>=60) Glucose (70-110) mg/dL POC Glucose (mg/dL) 187 H 244 H (70-110) mg/dL Calcium (8.7-10.3) mg/dL Urine Protein 3+ H (Negative) Urine Glucose (UA) 3+ H (Negative) Urine Blood Trace H (Negative) Ur Leukocyte Esterase Trace H (Negative) Amorphous Sediment Rare H (None) /hpf Urine Bacteria Rare H (None) /hpf Urine Mucus Rare H (None) /hpf 04/16/24 04/16/24 04/16/24 Range/Units 02:59 02:59 07:21 RBC 4.04 L (4.40-5.60) X 10*6/uL Hgb 11.6 L (13.0-17.0) g/dL Hct 37.4 L (39.6-50.0) % MCHC 31.0 L (32.0-37.0) g/dL RDW 15.4 H (11.5-14.5) % Lymphocytes # 0.88 L (0.90-5.00) X 10*3/uL Eosinophils # 0.40 H (0.04-0.35) X 10*3/uL Sodium 133 L (135-145) mmol/L BUN 35.8 H (9.0-27.0) mg/dL Creatinine 2.2 H (0.6-1.5) mg/dL Est GFR (CKD-EPI) 35 L (>=60) Glucose 303 H (70-110) mg/dL POC Glucose (mg/dL) 235 H (70-110) mg/dL Calcium 8.1 L (8.7-10.3) mg/dL Urine Protein (Negative) Urine Glucose (UA) (Negative) Urine Blood (Negative) Ur Leukocyte Esterase (Negative) Amorphous Sediment (None) /hpf Urine Bacteria (None) /hpf Urine Mucus (None) /hpf 04/16/24 Range/Units 12:06 RBC (4.40-5.60) X 10*6/uL Hgb (13.0-17.0) g/dL Hct (39.6-50.0) % MCHC (32.0-37.0) g/dL RDW (11.5-14.5) % Lymphocytes # (0.90-5.00) X 10*3/uL Eosinophils # (0.04-0.35) X 10*3/uL Sodium (135-145) mmol/L BUN (9.0-27.0) mg/dL Creatinine (0.6-1.5) mg/dL Est GFR (CKD-EPI) (>=60) Glucose (70-110) mg/dL POC Glucose (mg/dL) 268 H (70-110) mg/dL Calcium (8.7-10.3) mg/dL Urine Protein (Negative) Urine Glucose (UA) (Negative) Urine Blood (Negative) Ur Leukocyte Esterase (Negative) Amorphous Sediment (None) /hpf Urine Bacteria (None) /hpf Urine Mucus (None) /hpf Microbiology - Last 24 Hours (Table) 04/14/24 15:02 Blood Culture - Preliminary Blood 04/13/24 05:20 Anaerobic Culture - Preliminary Leg - Right 04/12/24 23:00 Blood Culture Gram Stain - Final Blood Blood Culture - Final Coagulase Negative Staph Coagulase Negative Staph#2 Molecular ID
[2024-04-16 17:18] LABS: Glucose,Whole Blood 224 mg/dL (70-110)
[2024-04-16 20:28] LABS: Glucose,Whole Blood 223 mg/dL (70-110)
[2024-04-17 06:47] LABS: Glucose,Whole Blood 230 mg/dL (70-110)
[2024-04-17 09:16] LABS: Basophils # (A) 0.02 X 10*3/uL (0.00-0.10); Basophils % (A) 0.3 %; Eosinophils # (A) 0.43 X 10*3/uL (0.04-0.35); Eosinophils % (A) 6.2 %; HCT 33.6 % (39.6-50.0); HGB 10.8 g/dL (13.0-17.0); Lymphocytes # (A) 0.84 X 10*3/uL (0.90-5.00); MCH 29.6 pg (27.0-32.0); MCHC 32.1 g/dL (32.0-37.0); MCV 92.1 FL (80.0-97.0); Mean Platelet Volume 11.2 FL (9.5-12.2); Monocytes # (A) 0.68 X 10*3/uL (0.20-1.00); Monocytes % (A) 9.7 %; NRBC Per 100 WBC 0 X 10*3/uL (0.00-0.01); Neutrophils # (A) 4.98 X 10*3/uL (1.80-7.70); Neutrophils % (A) 71.4 %; Platelet Count 261 X 10*3/uL (140-440); RBC 3.65 X 10*6/uL (4.40-5.60); RDW 15.1 % (11.5-14.5); WBC 6.98 X 10*3/uL (4.50-10.00)
[2024-04-17 10:17] LABS: BUN/Creat Ratio 18.95 Ratio (12.00-20.00); Blood Urea Nitrogen 39.8 mg/dL (9.0-27.0); Calcium 8.1 mg/dL (8.7-10.3); Carbon Dioxide 25.4 mmol/L (21.6-31.8); Chloride 101 mmol/L (96-109); Glucose 240 mg/dL (70-110); Potassium 5.4 mmol/L (3.5-5.5); Sodium 133 mmol/L (135-145)
--- NOTE | 2024-04-17 10:39 | P.PN ---
Subjective Progress Note Date: 04/17/24 Patient is a 54-year-old male with type 2 diabetes with peripheral neuropathy who presented to the ED with complaint of lower extremity ulcer. The patient noticed worsening of the ulcers on his bilateral lower extremities over the past 3 to 4 days. He also states having some malodorous drainage as well as itching at the site of the ulcers. He reports a prior history of sepsis as a result of these ulcers. He was at the wound clinic the last time he had these ulcers(lasted for 3 to 4 months) and they had healed just a couple of weeks ago. He mentions at the end of his treatment at the wound clinic they scraped the skin which he thinks is what caused worsening of his ulcers. Denies fever, chills, chest pain, shortness of breath, cough, nausea, vomiting, abdominal pain, diarrhea. ED documentation reviewed. He was treated with ceftriaxone and vancomycin in the ED. workup there Progress note 4patient seen and examined at bedside. Creatinine is improving. Plan will likely be for discharge tomorrow. Review of systems: Pertinent positives and negatives as discussed in HPI, a complete review of systems was performed and all other systems are negative. Physical examination: Vitals Reviewed General: non toxic, no distress, appears at stated age, obese Derm: Venous stasis dermatitis with multiple ulcers with mild surrounding erythema Head: atraumatic, normocephalic, symmetric Eyes: EOMI, anicteric sclera, pupils equal round reactive to light ENT: Nose and ears atraumatic Mouth: no lip lesion, mucus membranes moist Cardiovascular: S1S2 reg, no murmur,,bilateral peripheral leg edema +2 Lungs: CTA bilateral, no rhonchi, no rales, no accessory muscle use Abdominal: soft, nontender to palpation, no guarding Ext: muscle strength 5 out of 5 in all 4 extremities grossly, no gross muscle atrophy, no contractures Neuro: CN II-XI grossly intact, no gross focal neuro deficits Psych: Alert, oriented, appropriate affect Labs reviewed todayWBC 6.33, hemoglobin 11.6, MCV 92.6, platelets 287, sodium 133, potassium 5.0, chloride 100, bicarb 23.2, BUN 35.8, creatinine 2.2, glucose 303. UA w/ glucose 3+, protein 3+, trace LE. Urine creatinine Na, nitrates are WNL. Imaging reviewed todaynone Assessment/Plan: Patient is a 54-year-old male with type II diabetes with peripheral neuropathy who presented to the ED for lower extremity wound Case discussed with ED provider and admission accepted for chronic lower extremity ulcers. #. Bilateral lower extremity ulcers with cellulitis Bacteremia, Staph epidermidis, possible contaminant Blood culture with MECA gene, staph, strep. Wound culture with group B strep, Enterobacter aerogenes. elevated CRP 2.9 Initial WBC 7.3 unremarkable Cefepime per ID Encourage ambulation ID following On discharge plan to switch antibiotics to Cipro and Keflex #. CKD stage 3b, with CHAVO Initial elevated BUN 30, elevated around baseline creatinine 1.85, GFR 41 Creatinine initial 1.85, vancomycin discontinued UA w/ glucose 3+, protein 3+, trace LE. Urine creatinine Na, nitrates are WNL. Ultrasound kidney and bladderfindings unremarkable Monitor BMP Monitor and replete electrolytes as required #. Hypertensive urgency BP on admission 171/110, 158/96 => 138/79 Continue on clonidine 0.2 mg p.o. every 8 hours as needed for SBP >180 Continue amlodipine 10 mg p.o. daily and losartan 50 mg p.o. daily #. Insulin-dependent diabetes mellitus Poorly controlled diabetic Severe hyperglycemia Glucose 560 => 226 => 303 Insulin sliding scale q. ACH S, monitor for hypoglycemia Increase Levemir 45 units SQ twice daily from daily HbA1c 12.1 #. History of CAD Continue aspirin 81 mg p.o. daily #. Congestive heart failure with reduced EF Continue carvedilol, losartan 50 mg p.o. daily #. COPD Resume home meds Symbicort, Duonebs #. Hyperlipidemia Continue atorvastatin 80 mg PO HS #. Nausea and vomiting Continue zofran 4mg IVP Q8HR PRN F: P.o. E: Replete as required N: Consistent carbohydrate diet A: Ambulatory DVT prophylaxis: Heparin 5000 units SQ every 8 hours CODE STATUS: Full code Discussed with: Patient Anticipated discharge date: Possibly tomorrow Anticipated discharge place: Home Objective - Vital Signs Vital signs: Vital Signs Temp 98.2 F 04/17/24 06:50 Pulse 60 04/17/24 07:54 Resp 16 04/17/24 06:50 BP 142/79 04/17/24 06:50 Pulse Ox 96 04/17/24 06:50 FiO2 Intake & Output 04/16/24 04/17/24 04/17/24 18:59 06:59 18:59 Intake Total 720 Balance 720 Intake: Oral 720 Other: # Voids 3 1 # Bowel Movements 1 - Labs CBC & Chem 7: 04/17/24 04:26 04/17/24 04:26 Labs: Abnormal Lab Results - Last 24 Hours (Table) 04/16/24 04/16/24 04/16/24 Range/Units 02:59 02:59 12:06 RBC 4.04 L (4.40-5.60) X 10*6/uL Hgb 11.6 L (13.0-17.0) g/dL Hct 37.4 L (39.6-50.0) % MCHC 31.0 L (32.0-37.0) g/dL RDW 15.4 H (11.5-14.5) % Lymphocytes # 0.88 L (0.90-5.00) X 10*3/uL Eosinophils # 0.40 H (0.04-0.35) X 10*3/uL Sodium 133 L (135-145) mmol/L BUN 35.8 H (9.0-27.0) mg/dL Creatinine 2.2 H (0.6-1.5) mg/dL Est GFR (CKD-EPI) 35 L (>=60) Glucose 303 H (70-110) mg/dL POC Glucose (mg/dL) 268 H (70-110) mg/dL Calcium 8.1 L (8.7-10.3) mg/dL 04/16/24 04/16/24 04/17/24 Range/Units 17:17 20:26 04:26 RBC 3.65 L (4.40-5.60) X 10*6/uL Hgb 10.8 L (13.0-17.0) g/dL Hct 33.6 L (39.6-50.0) % MCHC (32.0-37.0) g/dL RDW 15.1 H (11.5-14.5) % Lymphocytes # 0.84 L (0.90-5.00) X 10*3/uL Eosinophils # 0.43 H (0.04-0.35) X 10*3/uL Sodium (135-145) mmol/L BUN (9.0-27.0) mg/dL Creatinine (0.6-1.5) mg/dL Est GFR (CKD-EPI) (>=60) Glucose (70-110) mg/dL POC Glucose (mg/dL) 224 H 223 H (70-110) mg/dL Calcium (8.7-10.3) mg/dL 04/17/24 04/17/24 Range/Units 04:26 06:46 RBC (4.40-5.60) X 10*6/uL Hgb (13.0-17.0) g/dL Hct (39.6-50.0) % MCHC (32.0-37.0) g/dL RDW (11.5-14.5) % Lymphocytes # (0.90-5.00) X 10*3/uL Eosinophils # (0.04-0.35) X 10*3/uL Sodium 133 L (135-145) mmol/L BUN 39.8 H (9.0-27.0) mg/dL Creatinine 2.1 H (0.6-1.5) mg/dL Est GFR (CKD-EPI) 37 L (>=60) Glucose 240 H (70-110) mg/dL POC Glucose (mg/dL) 230 H (70-110) mg/dL Calcium 8.1 L (8.7-10.3) mg/dL Microbiology - Last 24 Hours (Table) 04/14/24 15:02 Blood Culture - Preliminary Blood
[2024-04-17 12:09] LABS: Glucose,Whole Blood 239 mg/dL (70-110)
[2024-04-17 17:01] LABS: Glucose,Whole Blood 284 mg/dL (70-110)
[2024-04-17 20:28] LABS: Glucose,Whole Blood 357 mg/dL (70-110)
--- NOTE | 2024-04-17 22:22 | P.PN ---
Subjective Progress Note Date: 04/17/24 Principal diagnosis: Reason for follow-up is bilateral lower extremity venous stasis ulcer and cellulitis Patient is a 54-year-old male with a past medical history significant for coronary artery disease COPD diabetes mellitus DVT hypertension hyperlipidemia and history of lower extremity ulcer and cellulitis patient presenting to the hospital for evaluation of worsening bilateral lower extremity wounds, patient be diagnosed with 1 the lower extremity venous's ulcer and cellulitis. On today's evaluation that is 04/17/2024,the patient denies any fever or any chills, patient is breathing comfortably on room air, the patient denies chest pain shortness of breath and no significant cough, patient denies abdominal pain, no nausea vomiting or diarrhea. Denies any worsening pain to the lower extremity. Patient white count 6.98, creatinine is 2.1 Objective - Vital Signs Vital signs: Vital Signs Temp 98.1 F 04/17/24 12:41 Pulse 60 04/17/24 16:00 Resp 16 04/17/24 12:41 BP 114/74 04/17/24 12:41 Pulse Ox 99 04/17/24 12:41 FiO2 Intake & Output 04/16/24 04/17/24 04/17/24 18:59 06:59 18:59 Intake Total 2760 Balance 2760 Intake: Oral 2760 Other: # Voids 3 1 6 # Bowel Movements 1 - Exam GENERAL DESCRIPTION: Middle-age male lying in bed in no distress RESPIRATORY SYSTEM: Unlabored breathing , decreased breath sounds at bases HEART: S1 S2 regular rate and rhythm , ABDOMEN: Soft , no tenderness EXTREMITIES: Bilateral lower extremity currently wrapped in Bobby wrap - Labs CBC & Chem 7: 04/17/24 04:26 04/17/24 04:26 Labs: Abnormal Lab Results - Last 24 Hours (Table) 04/16/24 04/17/24 04/17/24 Range/Units 20:26 04:26 04:26 RBC 3.65 L (4.40-5.60) X 10*6/uL Hgb 10.8 L (13.0-17.0) g/dL Hct 33.6 L (39.6-50.0) % RDW 15.1 H (11.5-14.5) % Lymphocytes # 0.84 L (0.90-5.00) X 10*3/uL Eosinophils # 0.43 H (0.04-0.35) X 10*3/uL Sodium 133 L (135-145) mmol/L BUN 39.8 H (9.0-27.0) mg/dL Creatinine 2.1 H (0.6-1.5) mg/dL Est GFR (CKD-EPI) 37 L (>=60) Glucose 240 H (70-110) mg/dL POC Glucose (mg/dL) 223 H (70-110) mg/dL Calcium 8.1 L (8.7-10.3) mg/dL 04/17/24 04/17/24 04/17/24 Range/Units 06:46 12:07 17:00 RBC (4.40-5.60) X 10*6/uL Hgb (13.0-17.0) g/dL Hct (39.6-50.0) % RDW (11.5-14.5) % Lymphocytes # (0.90-5.00) X 10*3/uL Eosinophils # (0.04-0.35) X 10*3/uL Sodium (135-145) mmol/L BUN (9.0-27.0) mg/dL Creatinine (0.6-1.5) mg/dL Est GFR (CKD-EPI) (>=60) Glucose (70-110) mg/dL POC Glucose (mg/dL) 230 H 239 H 284 H (70-110) mg/dL Calcium (8.7-10.3) mg/dL Microbiology - Last 24 Hours (Table) 04/13/24 05:20 Anaerobic Culture - Final Leg - Right 04/14/24 15:02 Blood Culture - Preliminary Blood Assessment and Plan (1) Bilateral leg ulcer Current Visit: Yes Status: Acute Code(s): L97.919 - NON-PRS CHRONIC ULC UNSP PRT OF R LOW LEG W UNSP SEVERITY; L97.929 - NON-PRS CHRONIC ULC UNSP PRT OF L LOW LEG W UNSP SEVERITY SNOMED Code(s): 56926613 (2) Bilateral lower leg cellulitis Current Visit: Yes Status: Acute Code(s): L03.116 - CELLULITIS OF LEFT LOWER LIMB; L03.115 - CELLULITIS OF RIGHT LOWER LIMB SNOMED Code(s): 081070552 (3) Positive blood culture Current Visit: Yes Status: Acute Code(s): R78.81 - BACTEREMIA SNOMED Code(s): 676961456 Plan: 1patient to the hospital with increasing swelling ulceration and redness to bilateral extremity more marked on the right leg than left leg concerning for venous stasis ulcer and secondary cellulitis likely from gram-positive skin birdie gram-negative infection less likely but not entirely excluded 2local wound care with a dry Aquacel silver dressing to the open wound followed by Bobby wrap from just above the toe to below the knee 3patient did have positive blood culture with MRSE possible skin contamination blood cultures has been repeated so far negative 4local culture growing Enterobacter and Streptococcus 5patient to continue cefepime while inpatient with the plan to finish therapy with oral Cipro and Keflex x 7 days on discharge Dictation was produced using [employer] dictation software. please excuse any grammatical, word or spelling errors. Time with Patient: Less than 30
[2024-04-18 07:51] LABS: Glucose,Whole Blood 225 mg/dL (70-110)
[2024-04-18 08:44] LABS: Basophils # (A) 0.02 X 10*3/uL (0.00-0.10); Basophils % (A) 0.3 %; Eosinophils % (A) 5.1 %; HCT 35.6 % (39.6-50.0); HGB 11.3 g/dL (13.0-17.0); Lymphocytes # (A) 1.01 X 10*3/uL (0.90-5.00); MCH 29.7 pg (27.0-32.0); MCHC 31.7 g/dL (32.0-37.0); MCV 93.4 FL (80.0-97.0); Mean Platelet Volume 11.1 FL (9.5-12.2); Monocytes # (A) 0.79 X 10*3/uL (0.20-1.00); Monocytes % (A) 10.2 %; NRBC Per 100 WBC 0 X 10*3/uL (0.00-0.01); Neutrophils # (A) 5.53 X 10*3/uL (1.80-7.70); Platelet Count 256 X 10*3/uL (140-440); RBC 3.81 X 10*6/uL (4.40-5.60); RDW 15.1 % (11.5-14.5); WBC 7.78 X 10*3/uL (4.50-10.00)
[2024-04-18 08:47] VITALS: RESP 16
[2024-04-18 08:56] LABS: Blood Urea Nitrogen 42.4 mg/dL (9.0-27.0); Calcium 8.3 mg/dL (8.7-10.3); Carbon Dioxide 24.7 mmol/L (21.6-31.8); Chloride 102 mmol/L (96-109); Glucose 238 mg/dL (70-110); Potassium 5.6 mmol/L (3.5-5.5); Sodium 134 mmol/L (135-145)
--- NOTE | 2024-04-18 12:17 | P.PN ---
Subjective Progress Note Date: 04/18/24 Principal diagnosis: Reason for follow-up is bilateral lower extremity venous stasis ulcer and cellulitis Patient is a 54-year-old male with a past medical history significant for coronary artery disease COPD diabetes mellitus DVT hypertension hyperlipidemia and history of lower extremity ulcer and cellulitis patient presenting to the hospital for evaluation of worsening bilateral lower extremity wounds, patient be diagnosed with 1 the lower extremity venous's ulcer and cellulitis. On today's evaluation that is 04/18/2024,the patient remains to be afebrile, patient is on room air not requiring supplemental oxygen and denies any shortness of breath no chest pain or cough.Patient denies having any nausea or vomiting, no abdominal pain and no diarrhea has been reported denies pain to the lower extremity. Patient white count is 7.78, creatinine is 2.0 Objective - Vital Signs Vital signs: Vital Signs Temp 98.0 F 04/18/24 07:53 Pulse 64 04/18/24 08:15 Resp 16 04/18/24 07:53 BP 174/93 04/18/24 07:53 Pulse Ox 97 04/18/24 07:53 FiO2 Intake & Output 04/17/24 04/18/24 04/18/24 18:59 06:59 18:59 Intake Total 2760 340 1197 Balance 2760 340 1197 Intake: Intake, IV Titration 100 Amount Cefepime 2 gm In Sodium 100 Chloride 0.9% 100 ml @ 25 mls/hr IVPB Q12H [facility] Rx# :[id number] Oral 2760 240 1197 Other: Voiding Method Toilet Urinal # Voids 6 2 - Exam GENERAL DESCRIPTION: Middle-age male lying in bed in no distress RESPIRATORY SYSTEM: Unlabored breathing , decreased breath sounds at bases HEART: S1 S2 regular rate and rhythm , ABDOMEN: Soft , no tenderness EXTREMITIES: Right lower extremity have some superficial ulceration overall swelling redness has decreased left leg with mostly dry scaly skin - Labs CBC & Chem 7: 04/18/24 06:15 04/18/24 06:15 Labs: Abnormal Lab Results - Last 24 Hours (Table) 04/17/24 04/17/24 04/17/24 Range/Units 12:07 17:00 20:26 RBC (4.40-5.60) X 10*6/uL Hgb (13.0-17.0) g/dL Hct (39.6-50.0) % MCHC (32.0-37.0) g/dL RDW (11.5-14.5) % Eosinophils # (0.04-0.35) X 10*3/uL Sodium (135-145) mmol/L Potassium (3.5-5.5) mmol/L BUN (9.0-27.0) mg/dL Creatinine (0.6-1.5) mg/dL Est GFR (CKD-EPI) (>=60) BUN/Creatinine Ratio (12.00-20.00) Ratio Glucose (70-110) mg/dL POC Glucose (mg/dL) 239 H 284 H 357 H (70-110) mg/dL Calcium (8.7-10.3) mg/dL 04/18/24 04/18/24 04/18/24 Range/Units 06:15 06:15 07:50 RBC 3.81 L (4.40-5.60) X 10*6/uL Hgb 11.3 L (13.0-17.0) g/dL Hct 35.6 L (39.6-50.0) % MCHC 31.7 L (32.0-37.0) g/dL RDW 15.1 H (11.5-14.5) % Eosinophils # 0.40 H (0.04-0.35) X 10*3/uL Sodium 134 L (135-145) mmol/L Potassium 5.6 H (3.5-5.5) mmol/L BUN 42.4 H (9.0-27.0) mg/dL Creatinine 2.0 H (0.6-1.5) mg/dL Est GFR (CKD-EPI) 39 L (>=60) BUN/Creatinine Ratio 21.20 H (12.00-20.00) Ratio Glucose 238 H (70-110) mg/dL POC Glucose (mg/dL) 225 H (70-110) mg/dL Calcium 8.3 L (8.7-10.3) mg/dL Microbiology - Last 24 Hours (Table) 04/14/24 15:02 Blood Culture - Preliminary Blood 04/13/24 05:20 Anaerobic Culture - Final Leg - Right Assessment and Plan (1) Bilateral leg ulcer Current Visit: Yes Status: Acute Code(s): L97.919 - NON-PRS CHRONIC ULC UNSP PRT OF R LOW LEG W UNSP SEVERITY; L97.929 - NON-PRS CHRONIC ULC UNSP PRT OF L LOW LEG W UNSP SEVERITY SNOMED Code(s): 02707110 (2) Bilateral lower leg cellulitis Current Visit: Yes Status: Acute Code(s): L03.116 - CELLULITIS OF LEFT LOWER LIMB; L03.115 - CELLULITIS OF RIGHT LOWER LIMB SNOMED Code(s): 940232522 (3) Positive blood culture Current Visit: Yes Status: Acute Code(s): R78.81 - BACTEREMIA SNOMED Code(s): 000118151 Plan: 1patient to the hospital with increasing swelling ulceration and redness to b ilateral extremity more marked on the right leg than left leg concerning for venous stasis ulcer and secondary cellulitis likely from gram-positive skin birdie gram-negative infection less likely but not entirely excluded 2-patient did have positive blood culture with MRSE possible skin contamination blood cultures has been repeated so far negative 3local culture growing Enterobacter and Streptococcus 4patient to continue cefepime while inpatient with the plan to finish therapy with oral Cipro and Keflex x 7 days on discharge, also advised Aquacel silver dressing to the open wound followed by Bobby wrap change q. 48-hour and close outpatient follow-up Dictation was produced using [employer] dictation software. please excuse any grammatical, word or spelling errors. Time with Patient: Less than 30
[2024-04-18 12:42] LABS: Glucose,Whole Blood 245 mg/dL (70-110)
[2024-04-18 13:21] VITALS: BP 152/81; PULSE 59; TEMP 98.2
--- NOTE | 2024-04-18 14:39 | P.DS ---
Providers Date of admission: 04/12/24 21:46 Expected date of discharge: 04/18/24 Attending physician: Jose Coy MD Consults: 04/12/24 21:44 Consult Physician Routine Consulting Provider: Hieu Alfred Consult Reason/Comments: cellulitis Do you want consulting provider notified?: Yes Primary care physician: [facility] Hospital Course: Discharge diagnoses; #. Bilateral lower extremity ulcers with cellulitis # Bacteremia, Staph epidermidis, possible contaminant #. CKD stage 3b, with CHAVO #. Hypertensive urgency #. Insulin-dependent diabetes mellitus # Poorly controlled diabetic # Severe hyperglycemia #. History of CAD #. Congestive heart failure with reduced EF #. COPD #. Hyperlipidemia Hospital course; Patient is a 54-year-old male with type 2 diabetes with peripheral neuropathy who presented to the ED with complaint of lower extremity ulcer. The patient noticed worsening of the ulcers on his bilateral lower extremities over the past 3 to 4 days. He also states having some malodorous drainage as well as itching at the site of the ulcers. He reports a prior history of sepsis as a result of these ulcers. He was at the wound clinic the last time he had these ulcers(lasted for 3 to 4 months) and they had healed just a couple of weeks ago. He mentions at the end of his treatment at the wound clinic they scraped the skin which he thinks is what caused worsening of his ulcers. Denies fever, chills, chest pain, shortness of breath, cough, nausea, vomiting, abdominal pain, diarrhea. He was treated with ceftriaxone and vancomycin in the ED. workup there During hospital stay patient was treated for bilateral lower extremity ulcers with cellulitis from chronic venous insufficiency. He was treated with ceftriaxone and vancomycin, and subsequently treated with cefepime. He was seen by wound care and legs were wrapped with sterile dressing. During stay patient was also treated for CKD stage IIIb with CHAVO. Also, patient was treated for insulin-dependent diabetes mellitus, poorly controlled. Patient's insulin was increased well and stay from 1 time daily Levemir 45 units to 55 units twice daily, with the addition of AC-TID aspart 6U. Patient is discharged stable to home, with home health services/follow-up with wound care. He is discharged with new medication Lantus solar pen 55 units subcu twice daily, NovoLog FlexPen 6 units subcu AC 3 times daily, ciprofloxacin 500 mg twice daily for 7 days and Keflex 500 mg every 6 hours for 7 days. Patient is to follow-up with Dr. Alfred infectious disease. He is also to follow-up with his PCP and wound care. Physical examination: Vitals Reviewed General: non toxic, no distress, appears at stated age, obese Derm: Venous stasis dermatitis with multiple ulcers, bilaterally lower extremities Head: atraumatic, normocephalic, symmetric Eyes: EOMI, anicteric sclera, pupils equal round reactive to light ENT: Nose and ears atraumatic Mouth: no lip lesion, mucus membranes moist Cardiovascular: S1S2 reg, no murmur, bilateral peripheral leg edema +2 Lungs: CTA bilateral, no rhonchi, no rales, no accessory muscle use Abdominal: soft, nontender to palpation, no guarding Ext: muscle strength 5 out of 5 in all 4 extremities grossly, no gross muscle atrophy, no contractures Neuro: CN II-XI grossly intact, no gross focal neuro deficits Psych: Alert, oriented, appropriate affect Dictation was produced using [employer] dictation software. please excuse any grammatical, word or spelling errors. I saw and evaluated the patient during the fernández and critical portions of this encounter, and discussed the case in detail with the resident author of this note, I agree with the Assessment and Plan, and my changes, if any, are highlighted in blue. Patient Condition at Discharge: Stable Plan - Discharge Summary Discharge Rx Participant: No New Discharge Prescriptions: New Insulin Glargine,Hum.rec.anlog [Lantus Solostar Pen] 55 units SQ BID #2 each Insulin Aspart [NovoLOG Flexpen] 6 units SQ AC-TID #1 each Ciprofloxacin HCl 500 mg PO BID #14 tab Cephalexin [Keflex] 500 mg PO Q6HR 7 Days #28 cap Continue Atorvastatin [Lipitor] 80 mg PO HS #30 tab Ipratropium/Albuterol Sulfate [Combivent Respimat Inhaler] 1 puff INHALATION RT-QID Omeprazole 20 mg PO DAILY Aspirin EC [Ecotrin Low Dose] 81 mg PO DAILY Fluticasone Propion/Salmeterol [Wixela 250-50 Inhub] 1 puff INHALATION RT-BID carvediloL 37.5 mg PO BID-W/MEALS Bumetanide [BUMEX] 1 mg PO DAILY amLODIPine [Norvasc] 10 mg PO DAILY #90 tab Multivitamins, Thera [Multivitamin (formulary)] 1 tab PO DAILY Ergocalciferol (Vitamin D2) [Drisdol (50,000 Iu)] 1,250 mcg PO Q7D Losartan [Cozaar] 50 mg PO DAILY #60 tab Discontinued Insulin Glargine,Hum.rec.anlog [Lantus Solostar Pen] 45 unit SQ DAILY Discharge Medication List Atorvastatin [Lipitor] 80 mg PO HS #30 tab 02/27/16 [Rx] Ipratropium/Albuterol Sulfate [Combivent Respimat Inhaler] 1 puff INHALATION RT- QID 01/12/19 [History] Omeprazole 20 mg PO DAILY 03/14/19 [History] Aspirin EC [Ecotrin Low Dose] 81 mg PO DAILY 10/17/20 [History] Fluticasone Propion/Salmeterol [Wixela 250-50 Inhub] 1 puff INHALATION RT-BID 01/15/22 [History] Multivitamins, Thera [Multivitamin (formulary)] 1 tab PO DAILY 01/15/22 [History] carvediloL 37.5 mg PO BID-W/MEALS 01/15/22 [History] Bumetanide [BUMEX] 1 mg PO DAILY 01/23/24 [History] Ergocalciferol (Vitamin D2) [Drisdol (50,000 Iu)] 1,250 mcg PO Q7D 01/23/24 [History] Losartan [Cozaar] 50 mg PO DAILY #60 tab 02/01/24 [Rx] amLODIPine [Norvasc] 10 mg PO DAILY #90 tab 02/01/24 [Rx] Cephalexin [Keflex] 500 mg PO Q6HR 7 Days #28 cap 04/18/24 [Rx] Ciprofloxacin HCl 500 mg PO BID #14 tab 04/18/24 [Rx] Insulin Aspart [NovoLOG Flexpen] 6 units SQ AC-TID #1 each 04/18/24 [Rx] Insulin Glargine,Hum.rec.anlog [Lantus Solostar Pen] 55 units SQ BID #2 each 04/18/24 [Rx] Follow up Appointment(s)/Referral(s): Donovan Patel [NON-STAFF] - 1 Week [facility] [NON-STAFF] - 1 Week Hieu Alfred MD [STAFF PHYSICIAN] - 1 Week [facility] [Primary Care Provider] - 04/21/24 10:30 am Patient Instructions/Handouts: Diabetes and Your Skin (DC), Chronic Wounds (DC), Type 2 Diabetes Management for Adults (DC) Activity/Diet/Wound Care/Special Instructions: Dry Aquacel silver dressing to the open wound bilateral lower extremity followed by Bobby wrap from just above the toe to below the knee change every 48 hours Discharge Disposition: HOME WITH HOME HEALTH SERVICES
== END 2024-04-18 14:20 | disposition home health service (06) | DRG 638 ==
LOC: EC 17:15 → 5NMEDONC 21:46
PROVIDERS: ADMIT Internal Medicine; ATTEND Internal Medicine
DX: E11.622 Type 2 diabetes mellitus with other skin ulcer (principal); I13.0 Hypertensive heart and chronic kidney disease with heart failure and stage 1 through stage 4 chronic kidney disease, or unspecified chronic kidney disease; L03.115 Cellulitis of right lower limb; L03.116 Cellulitis of left lower limb; I50.22 Chronic systolic (congestive) heart failure; L97.812 Non-pressure chronic ulcer of other part of right lower leg with fat layer exposed; L97.222 Non-pressure chronic ulcer of left calf with fat layer exposed; L97.822 Non-pressure chronic ulcer of other part of left lower leg with fat layer exposed; I83.218 Varicose veins of right lower extremity with both ulcer of other part of lower extremity and inflammation; I83.228 Varicose veins of left lower extremity with both ulcer of other part of lower extremity and inflammation; N17.9 Acute kidney failure, unspecified; I16.0 Hypertensive urgency; E11.42 Type 2 diabetes mellitus with diabetic polyneuropathy; E11.51 Type 2 diabetes mellitus with diabetic peripheral angiopathy without gangrene; J44.89 Other specified chronic obstructive pulmonary disease; E78.5 Hyperlipidemia, unspecified; N18.32 Chronic kidney disease, stage 3b; E11.65 Type 2 diabetes mellitus with hyperglycemia; E11.22 Type 2 diabetes mellitus with diabetic chronic kidney disease; B95.1 Streptococcus, group B, as the cause of diseases classified elsewhere; I25.10 Atherosclerotic heart disease of native coronary artery without angina pectoris; G47.33 Obstructive sleep apnea (adult) (pediatric); K21.9 Gastro-esophageal reflux disease without esophagitis; B96.89 Other specified bacterial agents as the cause of diseases classified elsewhere; I25.2 Old myocardial infarction; Z87.891 Personal history of nicotine dependence; Z79.4 Long term (current) use of insulin; Z79.899 Other long term (current) drug therapy; Z79.82 Long term (current) use of aspirin; Z86.16 Personal history of COVID-19; Z88.1 Allergy status to other antibiotic agents; Z82.49 Family history of ischemic heart disease and other diseases of the circulatory system; Z83.3 Family history of diabetes mellitus
CPT/HCPCS: 36415; 76770; 80048; 80053; 80202; 81001; 82570; 83036; 83605; 83735; 84100; 84300; 84540; 85025; 86140; 87040; 87070; 87075; 87077; 87186; 87205; 94640; 96365; 99285

== ENCOUNTER → 2024-05-26 | Outpatient (CLI) | payer OTHER ==
[2024-05-26 19:15] LABS: HCT 35.6 % (39.6-50.0); HGB 11.2 g/dL (13.0-17.0); MCH 28.9 pg (27.0-32.0); MCHC 31.5 g/dL (32.0-37.0); MCV 91.8 FL (80.0-97.0); Mean Platelet Volume 11.5 FL (9.5-12.2); NRBC Per 100 WBC 0 X 10*3/uL (0.00-0.01); Platelet Count 282 X 10*3/uL (140-440); RBC 3.88 X 10*6/uL (4.40-5.60); RDW 14.6 % (11.5-14.5)
[2024-05-26 19:43] LABS: NT-Pro-B-Type Natriuretic Pept 3086 pg/mL (0-125)
[2024-05-26 20:04] LABS: ALT 10 U/L (10-49); AST 16 U/L (14-35); Albumin 2.7 g/dL (3.8-4.9); Albumin/Globulin Ratio 0.82 Ratio (1.60-3.17); Alkaline Phosphatase 78 U/L (41-126); BUN/Creat Ratio 12.29 Ratio (12.00-20.00); Blood Urea Nitrogen 25.8 mg/dL (9.0-27.0); Calcium 8.7 mg/dL (8.7-10.3); Carbon Dioxide 23.4 mmol/L (21.6-31.8); Chloride 102 mmol/L (96-109); Globulin 3.3 g/dL (1.6-3.3); Glucose 146 mg/dL (70-110); Potassium 4.6 mmol/L (3.5-5.5); Sodium 136 mmol/L (135-145); Total Bilirubin 0.3 mg/dL (0.3-1.2)
== END | disposition home or self-care (01) ==
LOC: LABWHC1 14:22
PROVIDERS: ATTEND Student in an Organized Health Care Education/Training Program
DX: Z13.6 Encounter for screening for cardiovascular disorders (principal); E11.9 Type 2 diabetes mellitus without complications; I50.9 Heart failure, unspecified; D72.9 Disorder of white blood cells, unspecified; R79.89 Other specified abnormal findings of blood chemistry; E78.5 Hyperlipidemia, unspecified; E03.9 Hypothyroidism, unspecified
CPT/HCPCS: 36415; 80053; 83036; 83880; 85027

== ENCOUNTER 2024-06-07 11:56 | Inpatient (IN) | payer OTHER ==
--- NOTE | 2024-06-07 12:44 | ED ---
General Adult HPI - General Chief complaint: Shortness of Breath Stated complaint: JOE Time Seen by Provider: 06/07/24 12:33 Source: patient Mode of arrival: wheelchair Limitations: no limitations - History of Present Illness Initial comments: This patient is a 54-year-old man with history of asthma, COPD, CHF, who presents with complaint that his breathing feels shorter than it usually does. Symptoms started approximately 3 weeks ago. He states that he had a course of what he feels was bronchitis. The symptoms started to improve and then he noti joce that he was having worsening shortness of breath over the past couple of days again. He has not noted fever or chills. He does have a mild cough but not much sputum. Patient denies chest pain. He has not noted any increase in leg swelling. He does have chronic leg swelling and a chronic right foot ulcer. No change in urination or bowel movements. Onset/Timin -: week(s) Severity scale (1-10): 0 Consistency: constant Improves with: none Worsens with: none Associated Symptoms: cough, shortness of breath Treatments Prior to Arrival: none - Related Data Home Medications Medication Instructions Recorded Confirmed Ipratropium/Albuterol Sulfate 1 puff INHALATION RT-QID 01/12/19 06/07/24 [Combivent Respimat Inhaler] Omeprazole 20 mg PO DAILY 03/14/19 06/07/24 Aspirin EC [Ecotrin Low Dose] 81 mg PO DAILY 10/17/20 06/07/24 Fluticasone Propion/Salmeterol 1 puff INHALATION RT-BID 01/15/22 06/07/24 [Wixela 250-50 Inhub] carvediloL 37.5 mg PO BID-W/MEALS 01/15/22 06/07/24 Bumetanide [BUMEX] 1 mg PO AC-BID 01/23/24 06/07/24 Ergocalciferol (Vitamin D2) 1,250 mcg PO Q7D 01/23/24 06/07/24 [Drisdol (50,000 Iu)] Previous Rx's Medication Instructions Recorded Atorvastatin [Lipitor] 80 mg PO HS #30 tab 02/27/16 Losartan [Cozaar] 50 mg PO DAILY #60 tab 02/01/24 amLODIPine [Norvasc] 10 mg PO DAILY #90 tab 02/01/24 Insulin Aspart [NovoLOG Flexpen] 6 units SQ AC-TID #1 each 04/18/24 Insulin Glargine,Hum.rec.anlog 55 units SQ BID #2 each 04/18/24 [Lantus Solostar Pen] Allergies Allergy/AdvReac Type Severity Reaction Status Date / Time tetracycline Allergy Rash/Hives Verified 06/17/24 11:27 Review of Systems ROS Statement: Those systems with pertinent positive or pertinent negative responses have been documented in the HPI. ROS Other: All systems not noted in ROS Statement are negative. Constitutional: Denies: fever, chills, weakness Respiratory: Reports: as per HPI, cough, dyspnea, wheezes. Denies: hemoptysis, stridor Cardiovascular: Reports: dyspnea on exertion, edema. Denies: chest pain, palpitations, orthopnea, syncope Gastrointestinal: Denies: abdominal pain, nausea, vomiting, diarrhea Genitourinary: Denies: dysuria, hematuria Musculoskeletal: Denies: back pain Skin: Denies: rash Neurological: Denies: headache, weakness Past Medical History Past Medical History: Asthma, Heart Failure, COPD, Diabetes Mellitus, Deep Vein Thrombosis (DVT), Myocardial Infarction (KS), Sleep Apnea/CPAP/BIPAP, Vascular Disorder Additional Past Medical History / Comment(s): 02/20/16 KS with cardiac [id number] wore life vest for 7 weeks, 2010 DVT RIGHT leg, bilateral lower leg cellulitis, bilateral varicose veins, PVD, NIDDM type II, BERTRAND with CPAP. UTI Mar 2021, cellulitis with open wounds on bilateral lower legs being treated in wound center 2021 released 2 weeks ago 04/12/24, H/o covid 2020 Last Myocardial Infarction Date:: 02/20/16 History of Any Multi-Drug Resistant Organisms: MRSA Date of last positivie culture/infection: 2017 MDRO Source:: bilateral legs Past Surgical History: Heart Catheterization With Stent Additional Past Surgical History / Comment(s): circumcision Additional Past Anesthesia/Blood Transfusion Reaction / Comment(s): Pt has never had anesthesia Date of Last Stent Placement:: 02/20/16 Past Psychological History: No Psychological Hx Reported Smoking Status: Former smoker Past Alcohol Use History: None Reported Past Drug Use History: None Reported - Past Family History Father Family Medical History: Coronary Artery Disease (CAD), Diabetes Mellitus, Eye Disorder Additional Family Medical History / Comment(s): Bradycardia, blind. Father is in his early 70's. Mother Family Medical History: Coronary Artery Disease (CAD), Diabetes Mellitus Additional Family Medical History / Comment(s): Benign brain tumor. Mother is in her early 70's General Exam Limitations: no limitations General appearance: alert, in no apparent distress Head exam: Present: atraumatic, normocephalic Eye exam: Present: normal appearance. Absent: scleral icterus, conjunctival injection Neck exam: Present: normal inspection Respiratory exam: Present: normal lung sounds bilaterally. Absent: respiratory distress, wheezes, rales, rhonchi, stridor, accessory muscle use Cardiovascular Exam: Present: regular rate, normal rhythm, normal heart sounds. Absent: systolic murmur, diastolic murmur, rubs, gallop GI/Abdominal exam: Present: soft. Absent: distended, tenderness, guarding, rebound, rigid, mass Extremities exam: Present: normal inspection, normal capillary refill, pedal edema (There is chronic bilateral humerus lower leg edema and stasis change. Greater on the right than left. The patient has freshly applied bandage from the wound clinic today where he is seen about his right foot ulcer). Absent: ca lf tenderness Back exam: Present: normal inspection. Absent: CVA tenderness (R), CVA tenderness (L), vertebral tenderness Neurological exam: Present: alert Skin exam: Present: warm, dry, normal color, other (Stasis changes to the legs as above) Course Vital Signs 06/07/24 06/07/24 06/07/24 12:01 12:33 13:20 Temperature 99 F Pulse Rate 100 95 84 Pulse Rate [ Nursing Home Admissions Director ] Respiratory 20 18 Rate Blood Pressure 166/102 169/95 Blood Pressure [Left Arm] O2 Sat by Pulse 96 96 Oximetry 06/07/24 06/07/24 06/07/24 13:28 14:00 15:26 Temperature Pulse Rate 80 79 81 Pulse Rate [ Nursing Home Admissions Director ] Respiratory 16 18 Rate Blood Pressure 167/79 165/83 Blood Pressure [Left Arm] O2 Sat by Pulse 95 95 Oximetry 06/07/24 06/07/24 06/07/24 18:03 19:34 22:24 Temperature Pulse Rate 78 80 66 Pulse Rate [ Nursing Home Admissions Director ] Respiratory 18 22 Rate Blood Pressure 145/94 170/90 Blood Pressure [Left Arm] O2 Sat by Pulse 97 95 Oximetry 06/07/24 06/07/24 06/08/24 22:27 22:35 00:00 Temperature Pulse Rate 71 77 Pulse Rate [ Nursing Home Admissions Director ] Respiratory 15 Rate Blood Pressure 148/84 Blood Pressure [Left Arm] O2 Sat by Pulse 97 98 Oximetry 06/08/24 06/08/24 06/08/24 01:35 01:46 05:00 Temperature Pulse Rate 78 79 73 Pulse Rate [ Nursing Home Admissions Director ] Respiratory 19 Rate Blood Pressure 153/85 Blood Pressure [Left Arm] O2 Sat by Pulse 98 Oximetry 06/08/24 06/08/24 06/08/24 08:45 08:58 09:01 Temperature 98.8 F Pulse Rate 63 Pulse Rate [ 71 Nursing Home Admissions Director ] Respiratory 18 18 Rate Blood Pressure Blood Pressure 160/86 [Left Arm] O2 Sat by Pulse 98 96 Oximetry 06/08/24 06/08/24 06/08/24 09:08 12:50 15:45 Temperature 98.8 F Pulse Rate 59 L Pulse Rate [ 60 57 L Nursing Home Admissions Director ] Respiratory 20 18 Rate Blood Pressure Blood Pressure 91/53 91/55 [Left Arm] O2 Sat by Pulse 96 Oximetry 06/08/24 06/08/24 06/08/24 16:27 16:33 16:43 Temperature 98.0 F 98.0 F Pulse Rate 60 Pulse Rate [ 56 L 56 L Nursing Home Admissions Director ] Respiratory 17 17 Rate Blood Pressure Blood Pressure 130/80 130/80 [Left Arm] O2 Sat by Pulse 98 98 Oximetry 06/08/24 06/08/24 16:52 20:00 Temperature 98.3 F Pulse Rate 64 Pulse Rate [ 60 Nursing Home Admissions Director ] Respiratory 17 Rate Blood Pressure Blood Pressure 105/69 [Left Arm] O2 Sat by Pulse 94 L Oximetry EKG Findings - EKG Results: EKG: interpreted by ERMD, sinus rhythm (Rate 94 bpm), normal axis, normal QRS, normal ST/T - KS, Pacemaker, Normal: Myocardial infarction: inferior KS (old age indeterminate) (Possible old inferior infarct) Medical Decision Making - Medical Decision Making The patient had chest x-ray that I interpreted as negative for acute infiltrate, pneumothorax, congestive heart failure The patient had CT scan of the chest that I interpreted as negative for acute pulmonary embolism. Was pt. sent in by a medical professional or institution ([facility], [facility], urgent care, hospital, or group home...) When possible be specific @ -[No] Did you speak to anyone other than the patient for history (EMS, parent, family, police, friend...)? What history was obtained from this source @ -[No] Did you review nursing and triage notes (agree or disagree)? Why? @ -[I reviewed and agree with nursing and triage notes] Were old charts reviewed (outside hosp., previous admission, EMS record, old EKG, old radiological studies, urgent care reports/EKG's, group home records)? Report findings @ -[No old charts were reviewed] Differential Diagnosis (chest pain, altered mental status, abdominal pain women, abdominal pain men, vaginal bleeding, weakness, fever, dyspnea, syncope, headache, dizziness, GI bleed, back pain, seizure, CVA, palpatations, mental health, musculoskeletal)? @ -[Differential Dyspnea: Coronary syndrome, arrhythmia, tamponade, asthma, COPD, pulmonary embolism, pneumonia, pneumothorax, pulmonary effusion, anaphylaxis, diabetic ketoacidosis, flailed chest, pulmonary contusion, diaphragmatic rupture, anemia, neuromuscular, this is not meant to be an all-inclusive list. EKG interpreted by me (3pts min.). @ -[I interpreted as above] X-rays interpreted by me (1pt min.). @ -[I interpreted as above CT interpreted by me (1pt min.). @ -[I interpreted as above U/S interpreted by me (1pt. min.). @ -[None done] What testing was considered but not performed or refused? (CT, X-rays, U/S, la bs)? Why? @ -[None] What meds were considered but not given or refused? Why? @ -[None] Did you discuss the management of the patient with other professionals (professionals i.e. [facility], [facility], lab, RT, psych nurse, group social worker, pig farmer, teacher, executive vice president and chief financial officer, case hardener)? Give summary @ -[Case discussed with admitting physician and treatment recommendations are incorporated Was smoking cessation discussed for >3mins.? @ -[No] Was critical care preformed (if so, how long)? @ -[No] Were there social determinants of health that impacted care today? How? (Homelessness, low income, unemployed, alcoholism, drug addiction, transportation, low edu. Level, literacy, decrease access to med. care, nursing home, rehab)? @ -[No] Was there de-escalation of care discussed even if they declined (Discuss DNR or withdrawal of care, Hospice)? DNR status @ -[No] What co-morbidities impacted this encounter? (DM, HTN, Smoking, COPD, CAD, Cancer, CVA, ARF, Chemo, Hep., AIDS, mental health diagnosis, sleep apnea, morbid obesity)? @ -[COPD, hypertension, cardiomyopathy, CHF Was patient admitted / discharged? Hospital course, mention meds given and route, prescriptions, significant lab abnormalities, going to OR and other pertinent info. @ -[Patient is 54-year-old man here with dyspnea that appears to be multifactorial with degree of congestive heart failure and COPD contributing. Patient will be admitted for further evaluation and treatment Undiagnosed new problem with uncertain prognosis? @ -[No] Drug Therapy requiring intensive monitoring for toxicity (Heparin, Nitro, Insulin, Cardizem)? @ -[No] Were any procedures done? @ -[No] Diagnosis/symptom? @ -[Acute dyspnea Acute exacerbation of CHF Exacerbation of COPD Hyponatremia Elevated troponin/NSTEMI Acute, or Chronic, or Acute on Chronic? @ -[Acute Uncomplicated (without systemic symptoms) or Complicated (systemic symptoms)? @ -[Complicated by dyspnea Side effects of treatment? @ -[No] Exacerbation, Progression, or Severe Exacerbation? @ -[No] Poses a threat to life or bodily function? How? (Chest pain, USA, KS, pneumonia, PE, COPD, DKA, ARF, appy, cholecystitis, CVA, Diverticulitis, Homicidal, Suicidal, threat to staff... and all critical care pts) @ -[Yes - Lab Data Result diagrams: 06/20/24 07:52 06/20/24 07:52 Lab Results 06/06/24 06/07/24 06/07/24 Range/Units 13:01 13:01 13:01 WBC 12.9 H (3.8-10.6) k/uL RBC 4.27 L (4.30-5.90) m/uL Hgb 12.3 L (13.0-17.5) gm/dL Hct 39.1 (39.0-53.0) % MCV 91.6 (80.0-100.0) fL MCH 28.8 (25.0-35.0) pg MCHC 31.5 (31.0-37.0) g/dL RDW 15.2 (11.5-15.5) % Plt Count 270 (150-450) k/uL MPV 7.4 Neutrophils % 86 % Lymphocytes % 5 % Monocytes % 5 % Eosinophils % 3 % Basophils % 0 % Neutrophils # 11.1 H (1.3-7.7) k/uL Lymphocytes # 0.7 L (1.0-4.8) k/uL Monocytes # 0.6 (0-1.0) k/uL Eosinophils # 0.4 (0-0.7) k/uL Basophils # 0.0 (0-0.2) k/uL Hypochromasia Moderate PT 10.0 (10.0-12.5) sec INR 0.9 (<1.2) APTT 33.5 H (22.0-30.0) sec D-Dimer 1.34 H (<0.60) mg/L FEU Sodium (137-145) mmol/L Potassium (3.5-5.1) mmol/L Chloride (98-107) mmol/L Carbon Dioxide (22-30) mmol/L Anion Gap mmol/L BUN (9-20) mg/dL Creatinine (0.66-1.25) mg/dL Est GFR (CKD-EPI)AfAm (>60 ml/min/1.73 sqM) Est GFR (CKD-EPI)NonAf (>60 ml/min/1.73 sqM) Glucose (74-99) mg/dL Estimated Ave Glu mg/dL 272 mg/dL Hemoglobin A1c 11.1 H (<=6.0) % Plasma Lactic Acid Kannan (0.7-2.0) mmol/L Calcium (8.4-10.2) mg/dL Total Bilirubin (0.2-1.3) mg/dL AST (17-59) U/L ALT (4-49) U/L Alkaline Phosphatase (38-126) U/L Troponin I (0.000-0.034) ng/mL NT-Pro-B Natriuret Pep pg/mL Total Protein (6.3-8.2) g/dL Albumin (3.5-5.0) g/dL Influenza Type A (PCR) (Not Detectd) Influenza Type B (PCR) (Not Detectd) RSV (PCR) (Not Detectd) SARS-CoV-2 (PCR) (Not Detectd) 06/07/24 06/07/24 06/07/24 Range/Units 13:01 13:04 13:48 WBC (3.8-10.6) k/uL RBC (4.30-5.90) m/uL Hgb (13.0-17.5) gm/dL Hct (39.0-53.0) % MCV (80.0-100.0) fL MCH (25.0-35.0) pg MCHC (31.0-37.0) g/dL RDW (11.5-15.5) % Plt Count (150-450) k/uL MPV Neutrophils % % Lymphocytes % % Monocytes % % Eosinophils % % Basophils % % Neutrophils # (1.3-7.7) k/uL Lymphocytes # (1.0-4.8) k/uL Monocytes # (0-1.0) k/uL Eosinophils # (0-0.7) k/uL Basophils # (0-0.2) k/uL Hypochromasia PT (10.0-12.5) sec INR (<1.2) APTT (22.0-30.0) sec D-Dimer (<0.60) mg/L FEU Sodium 129 L (137-145) mmol/L Potassium 4.8 (3.5-5.1) mmol/L Chloride 103 (98-107) mmol/L Carbon Dioxide 23 (22-30) mmol/L Anion Gap 3 mmol/L BUN 28 H (9-20) mg/dL Creatinine 1.80 H (0.66-1.25) mg/dL Est GFR (CKD-EPI)AfAm 48 (>60 ml/min/1.73 sqM) Est GFR (CKD-EPI)NonAf 42 (>60 ml/min/1.73 sqM) Glucose 254 H (74-99) mg/dL Estimated Ave Glu mg/dL mg/dL Hemoglobin A1c (<=6.0) % Plasma Lactic Acid Kannan 1.3 (0.7-2.0) mmol/L Calcium 8.0 L (8.4-10.2) mg/dL Total Bilirubin 0.7 (0.2-1.3) mg/dL AST 25 (17-59) U/L ALT 14 (4-49) U/L Alkaline Phosphatase 71 (38-126) U/L Troponin I (0.000-0.034) ng/mL NT-Pro-B Natriuret Pep 06697 pg/mL Total Protein 5.8 L (6.3-8.2) g/dL Albumin 2.4 L (3.5-5.0) g/dL Influenza Type A (PCR) Not Detected (Not Detectd) Influenza Type B (PCR) Not Detected (Not Detectd) RSV (PCR) Not Detected (Not Detectd) SARS-CoV-2 (PCR) Not Detected (Not Detectd) 06/07/24 Range/Units 13:48 WBC (3.8-10.6) k/uL RBC (4.30-5.90) m/uL Hgb (13.0-17.5) gm/dL Hct (39.0-53.0) % MCV (80.0-100.0) fL MCH (25.0-35.0) pg MCHC (31.0-37.0) g/dL RDW (11.5-15.5) % Plt Count (150-450) k/uL MPV Neutrophils % % Lymphocytes % % Monocytes % % Eosinophils % % Basophils % % Neutrophils # (1.3-7.7) k/uL Lymphocytes # (1.0-4.8) k/uL Monocytes # (0-1.0) k/uL Eosinophils # (0-0.7) k/uL Basophils # (0-0.2) k/uL Hypochromasia PT (10.0-12.5) sec INR (<1.2) APTT (22.0-30.0) sec D-Dimer (<0.60) mg/L FEU Sodium (137-145) mmol/L Potassium (3.5-5.1) mmol/L Chloride (98-107) mmol/L Carbon Dioxide (22-30) mmol/L Anion Gap mmol/L BUN (9-20) mg/dL Creatinine (0.66-1.25) mg/dL Est GFR (CKD-EPI)AfAm (>60 ml/min/1.73 sqM) Est GFR (CKD-EPI)NonAf (>60 ml/min/1.73 sqM) Glucose (74-99) mg/dL Estimated Ave Glu mg/dL mg/dL Hemoglobin A1c (<=6.0) % Plasma Lactic Acid Kannan (0.7-2.0) mmol/L Calcium (8.4-10.2) mg/dL Total Bilirubin (0.2-1.3) mg/dL AST (17-59) U/L ALT (4-49) U/L Alkaline Phosphatase (38-126) U/L Troponin I 0.081 H* (0.000-0.034) ng/mL NT-Pro-B Natriuret Pep pg/mL Total Protein (6.3-8.2) g/dL Albumin (3.5-5.0) g/dL Influenza Type A (PCR) (Not Detectd) Influenza Type B (PCR) (Not Detectd) RSV (PCR) (Not Detectd) SARS-CoV-2 (PCR) (Not Detectd) Disposition Clinical Impression: CHF (congestive heart failure), Non-STEMI (non-ST elevated myocardial infarction), Hyponatremia Disposition: ADMITTED IP TO THIS HOSP Condition: Fair Is patient prescribed a controlled substance at d/c from ED?: No
[2024-06-07] MEDS: IPRATROPIUM-ALBUTEROL 3 ML NEB INHALATION STA ×2 (13:15→22:24)
[2024-06-07 13:16] LABS: Basophils % (A) 0 %; Eosinophils # (A) 0.4 k/uL (0-0.7); Eosinophils % (A) 3 %; HCT 39.1 % (39.0-53.0); HGB 12.3 gm/dL (13.0-17.5); Hypochromasia Moderate; Lymphocytes # (A) 0.7 k/uL (1.0-4.8); Lymphocytes % (A) 5 %; MCH 28.8 pg (25.0-35.0); MCHC 31.5 g/dL (31.0-37.0); MCV 91.6 fL (80.0-100.0); Mean Platelet Volume 7.4; Monocytes # (A) 0.6 k/uL (0-1.0); Monocytes % (A) 5 %; Neutrophils # (A) 11.1 k/uL (1.3-7.7); Neutrophils % (A) 86 %; Platelet Count 270 k/uL (150-450); RBC 4.27 m/uL (4.30-5.90); RDW 15.2 % (11.5-15.5); WBC 12.9 k/uL (3.8-10.6)
--- NOTE | 2024-06-07 13:26 | XR ---
EXAMINATION TYPE: XR chest 2V DATE OF EXAM: 06/07/2024 1:20 PM COMPARISON: Chest radiographs from 04/01/2024 TECHNIQUE: XR chest 2V Frontal and lateral views of the chest. CLINICAL INDICATION:Male, 54 years old with history of difficulty breathing; FINDINGS: Lungs/Pleura: There is no evidence of pleural effusion, focal consolidation, or pneumothorax. Pulmonary vascularity: Unremarkable. Heart/mediastinum: Cardiac size is normal. Musculoskeletal: No acute osseous pathology. IMPRESSION: No acute cardiopulmonary disease/process. [facility], , 06/07/2024 1:24 PM
[2024-06-07 14:23] LABS: INR 0.9 (<1.2); Partial Thromboplastin Time 33.5 sec (22.0-30.0)
[2024-06-07 15:15] LABS: ALT 14 U/L (4-49); African American GFR (CKD) 48 (>60 ml/min/1.73 sqM); Albumin 2.4 g/dL (3.5-5.0); Anion Gap 3 mmol/L; Blood Urea Nitrogen 28 mg/dL (9-20); Carbon Dioxide 23 mmol/L (22-30); Chloride 103 mmol/L (98-107); Glucose 254 mg/dL (74-99); Non-African American GFR(CKD) 42 (>60 ml/min/1.73 sqM); Sodium 129 mmol/L (137-145); Total Bilirubin 0.7 mg/dL (0.2-1.3); Total Protein 5.8 g/dL (6.3-8.2)
[2024-06-07 15:23] LABS: NT-Pro-B-Type Natriuretic Pept 12200 pg/mL
[2024-06-07 15:24] LABS: AST 25 U/L (17-59); Alkaline Phosphatase 71 U/L (38-126); Potassium 4.8 mmol/L (3.5-5.1)
[2024-06-07] MEDS: FUROSEMIDE 10 MG/ML 4 ML VIAL IV STA (15:52)
[2024-06-07] MEDS: NITROGLYCERIN OINT 1 INCH/GM PACKET TOPICAL STA (15:55)
--- NOTE | 2024-06-07 16:31 | CT ---
EXAMINATION TYPE: CT chest angio for PE DATE OF EXAM: 06/07/2024 4:21 PM COMPARISON: CT 06/13/2023, chest radiograph same day. CLINICAL INDICATION: Male, 54 years old with history of dyspnea, R leg swelling, possible PE; TECHNIQUE/CONTRAST: CTA scan of the thorax is performed with IV Contrast, patient injected with 80 mL of Isovue 370, MIP images are created and reviewed these are created on a separate workstation.. CT DLP: 1260 mGycm, Automated exposure control for dose reduction was used. FINDINGS: Lungs/Pleura: No evidence of focal consolidation, pleural effusion or pneumothorax. 8 mm pulmonary no dule medial aspect left upper lung series 401 image 67. Airway: Large airways are patent. Mild bronchial wall thickening of the large airways right greater t mariano left. Retained secretions in the trachea. Heart: Heart is within normal limits for size. Vasculature: There is no evidence for a filling defect within the pulmonary vasculature to suggest ac taz pulmonary embolism. The pulmonary artery is of normal size. Mediastinum: No gross evidence of adenopathy. Musculoskeletal: Mild degenerative disc disease changes are present throughout the thoracolumbar spin e. Soft Tissues/lymph nodes: Unremarkable. Lower neck: No significant findings. Upper Abdomen: No significant findings. IMPRESSION: 1. No evidence of pulmonary embolism. 2. Bronchial wall thickening correlate for bronchitis. Similar to 06/13/2023. 3. Left upper lung pulmonary nodule measuring 8 mm. Consider follow-up in 6-12 months 4. Hepatic steatosis. [facility], , 06/07/2024 4:29 PM
[2024-06-07] MEDS ORDERED: DEXTROSE 50% SYRINGE 50 ML IVP PRN ×2 (21:33)
[2024-06-07] MEDS: INSULIN REGULAR 100 UNIT/ML VIAL (IV) SQ STA (22:07)
[2024-06-07] MEDS: FUROSEMIDE 10 MG/ML 4 ML VIAL IV SCH (22:08)
--- NOTE | 2024-06-07 22:17 | P.HPIM ---
History of Present Illness H&P Date: 06/07/24 Chief Complaint: SOB Chief Complaint: Shortness of breath History of present illness; 54-year-old male with a PMH of systolic CHF (EF 20 to 25%), asthma, COPD, diabetes mellitus, and CKD 3B presents with complaints of shortness of breath. Reports 3 weeks ago he started feeling shortness of breath, and states that this time he went to an urgent care where he was prescribed steroids and azithromycin which he reports he finished antibiotic course and steroids. States after completing this he felt slightly better but still had shortness of breath. Notes during this time he has had to sleep sitting on the edge of the bed, admits to orthopnea. States that shortness of breath gets worse on exertion. Admits to seeing increased swelling in his lower extremities compared to before this all started. Of note during recent admission he was treated for foot ulcers, which she reports he follows consistently with wound care outpatient. Admits to a mild cough but denies any sputum production. Denies fever, chills, headache, chest pain, palpitations, nausea, vomiting, diarrhea, constipation. Labs: WBC 12.9, hemoglobin 12.3, D-dimer 1.34, sodium 129, BUN 28, creatinine 1.8, glucose 254, troponin 0.01, BNP 12,200, and viral respiratory panel all negative. Imaging: - EKG done in the ER showed heart rate of 94 bpm, sinus rhythm, possible left atrial enlargement, and QTc 406. - ER CXR: No acute cardiopulmonary disease/process. - ER CTA chest: No evidence of PE, bronchial wall thickening, left upper lung pulmonary nodule measuring 8 mm, hepatic steatosis. REVIEW OF SYSTEMS: As stated above in HPI. The rest of the 14-point review of systems is negative. PHYSICAL EXAMINATION: GENERAL: The patient is alert and oriented x3. Well developed, well nourished. Morbidly obese. HEENT: Pupils are round and equally reacting to light. EOMI. No scleral icterus. No conjunctival pallor. Normocephalic, atraumatic. CARDIOVASCULAR: Distant heart sounds likely secondary to body habitus auscultated, no murmurs, rubs, or gallops. PULMONARY: Inspiratory wheezes auscultated bilaterally. ABDOMEN: Soft, nontender, nondistended, normoactive bowel sounds. No palpable organomegaly. MUSCULOSKELETAL: No joint swelling or deformity. EXTREMITIES and SKIN: Chronic wound wrapped in bandaging (ulcers) with no erythema or noticeable discharge appreciated, pedal edema appreciated, trace to 1+ pitting edema up to the mid calf noted bilaterally. NEUROLOGICAL: Gross neurological examination did not reveal any focal deficits. Assessment and Plan 54-year-old male with a PMH of systolic CHF (EF 20 to 25%), asthma, COPD, diabetes mellitus, and CKD 3B presents with complaints of shortness of breath. Shortness of breath likely secondary to CHF exacerbation versus less likely COPD exacerbation versus URI. #acute on chronic hypoxic respiratory failure secondary to CHF exacerbation #Systolic CHF (EF 20 to 25%) #COPD -CXR from today looks slightly better (less blunting of the costophrenic angle bilaterally) than previous CXR from 02/25/2024, still showing some degree of pulmonary vascular congestion -Initial troponin 0.081 continues to be flat 0.087 and BNP 12,200 -Received Lasix 40 mg IV once in the ED, ordered Bumex 2 mg IV every 12 hours and titrate to efficacious dose -Fluid restrict to 2 L daily -Strict I's and O's -Echo ordered, previous from 1 year ago -Cardiology consulted -Cardiac monitoring -Ordered DuoNeb 3 ml every 2 hours as needed for shortness of breath or wheezing -O2 NC as needed -WBC 12.9, neutrophils 11.1, afebrile, if spikes a fever, will consider CAP coverage -check Urine Legionella antigen, blood culture, procalcitonin ordered #Hyponatremia: -Sodium 129, patient has been chronically hyponatremic on previous admissions although slightly more so now -Potentially secondary to fluid overload from CHF exacerbation -Continue to monitor daily BMP continue with bumex #Normocytic anemia -Likely secondary to CKD -During previous admission 2 weeks ago patient's hemoglobin was 11.2, currently 12.3 -Continue to monitor CBC -Transfuse if hemoglobin less than 7 no report of bleeding Chronic Conditions: #CKD stage IIIb: -Continue home medications once reconciled by pharmacy -Baseline estimated GFR between 30 and 45, currently 42 -Baseline creatinine 1.69-2.2, currently 1.8 -Continue to monitor daily CMP #Diabetes mellitus: -Hold home medications -Start sliding scale -Accu-Cheks levemir 55 units qhs #Hypertension: -Continue home medication once reconciled by pharmacy F: P.o., restrict to 2 L E: None N: Heart healthy diet with fluid restriction to 2 L DVT ppx: Heparin 5000 units SQ every 8 HR. -Allegheny risk score for VTE prophylaxis-->5 points indicating 3.2% VTE risk GI ppx: Continue home omeprazole 20 mg p.o. daily CODE STATUS: Full code Dispo: Pending clinical course Selvin Velarde MD PGY-1 FM Dictation was produced using [employer] dictation software. please excuse any grammatical, word or spelling errors. Past Medical History Past Medical History: Asthma, Heart Failure, COPD, Diabetes Mellitus, Deep Vein Thrombosis (DVT), Myocardial Infarction ([place]), Sleep Apnea/CPAP/BIPAP, Vascular Disorder Additional Past Medical History / Comment(s): 02/20/16 [place] with cardiac ar [id number] wore life vest for 7 weeks, 2010 DVT RIGHT leg, bilateral lower leg cellulitis, bilateral varicose veins, PVD, NIDDM type II, BERTRAND with CPAP. UTI Mar 2021, cellulitis with open wounds on bilateral lower legs being treated in wound center 2021 released 2 weeks ago 04/12/24, H/o covid 2020 Last Myocardial Infarction Date:: 02/20/16 History of Any Multi-Drug Resistant Organisms: MRSA Date of last positivie culture/infection: 2017 MDRO Source:: bilateral legs Past Surgical History: Heart Catheterization With Stent Additional Past Surgical History / Comment(s): circumcision Additional Past Anesthesia/Blood Transfusion Reaction / Comment(s): Pt has never had anesthesia Date of Last Stent Placement:: 02/20/16 Past Psychological History: No Psychological Hx Reported Smoking Status: Former smoker Past Alcohol Use History: None Reported Past Drug Use History: None Reported - Past Family History Father Family Medical History: Coronary Artery Disease (CAD), Diabetes Mellitus, Eye Disorder Additional Family Medical History / Comment(s): Bradycardia, blind. Father is in his early 70's. Mother Family Medical History: Coronary Artery Disease (CAD), Diabetes Mellitus Additional Family Medical History / Comment(s): Benign brain tumor. Mother is in her early 70's Medications and Allergies Home Medications Medication Instructions Recorded Confirmed Type Atorvastatin [Lipitor] 80 mg PO HS #30 tab 02/27/16 06/07/24 Rx Ipratropium/Albuterol Sulfate 1 puff INHALATION RT-QID 01/12/19 06/07/24 History [Combivent Respimat Inhaler] Omeprazole 20 mg PO DAILY 03/14/19 06/07/24 History Aspirin EC [Ecotrin Low Dose] 81 mg PO DAILY 10/17/20 06/07/24 History Fluticasone Propion/Salmeterol 1 puff INHALATION RT-BID 01/15/22 06/07/24 History [Wixela 250-50 Inhub] carvediloL 37.5 mg PO BID-W/MEALS 01/15/22 06/07/24 History Bumetanide [BUMEX] 1 mg PO AC-BID 01/23/24 06/07/24 History Ergocalciferol (Vitamin D2) 1,250 mcg PO Q7D 01/23/24 06/07/24 History [Drisdol (50,000 Iu)] Losartan [Cozaar] 50 mg PO DAILY #60 tab 02/01/24 06/07/24 Rx amLODIPine [Norvasc] 10 mg PO DAILY #90 tab 02/01/24 06/07/24 Rx Insulin Aspart [NovoLOG Flexpen] 6 units SQ AC-TID #1 each 04/18/24 06/07/24 Rx Insulin Glargine,Hum.rec.anlog 55 units SQ BID #2 each 04/18/24 06/07/24 Rx [Lantus Solostar Pen] Allergies Allergy/AdvReac Type Severity Reaction Status Date / Time tetracycline Allergy Rash/Hives Verified 06/07/24 13:55 Physical Exam Vitals: Vital Signs Temp Pulse Resp BP Pulse Ox 06/07/24 19:34 80 22 170/90 95 06/07/24 18:03 78 18 145/94 97 06/07/24 15:26 81 18 165/83 95 06/07/24 14:00 79 16 167/79 95 06/07/24 13:28 80 06/07/24 13:20 84 06/07/24 12:33 95 18 169/95 96 06/07/24 12:01 99 F 100 20 166/102 96 Intake and Output 06/07/24 06/07/24 06/07/24 06:59 14:59 22:59 Other: Weight 172.365 kg Results CBC & Chem 7: 06/07/24 13:01 06/07/24 13:48 Labs: Abnormal Lab Results - Last 24 Hours (Table) 06/07/24 06/07/24 06/07/24 Range/Units 13:01 13:01 13:48 WBC 12.9 H (3.8-10.6) k/uL RBC 4.27 L (4.30-5.90) m/uL Hgb 12.3 L (13.0-17.5) gm/dL Neutrophils # 11.1 H (1.3-7.7) k/uL Lymphocytes # 0.7 L (1.0-4.8) k/uL APTT 33.5 H (22.0-30.0) sec D-Dimer 1.34 H (<0.60) mg/L FEU Sodium 129 L (137-145) mmol/L BUN 28 H (9-20) mg/dL Creatinine 1.80 H (0.66-1.25) mg/dL Glucose 254 H (74-99) mg/dL Calcium 8.0 L (8.4-10.2) mg/dL Troponin I (0.000-0.034) ng/mL Total Protein 5.8 L (6.3-8.2) g/dL Albumin 2.4 L (3.5-5.0) g/dL 06/07/24 Range/Units 13:48 WBC (3.8-10.6) k/uL RBC (4.30-5.90) m/uL Hgb (13.0-17.5) gm/dL Neutrophils # (1.3-7.7) k/uL Lymphocytes # (1.0-4.8) k/uL APTT (22.0-30.0) sec D-Dimer (<0.60) mg/L FEU Sodium (137-145) mmol/L BUN (9-20) mg/dL Creatinine (0.66-1.25) mg/dL Glucose (74-99) mg/dL Calcium (8.4-10.2) mg/dL Troponin I 0.081 H* (0.000-0.034) ng/mL Total Protein (6.3-8.2) g/dL Albumin (3.5-5.0) g/dL Assessment and Plan Assessment: I have seen and evaluated the patient today. I Discussed the case with the resident and agree with the resident's findings I edited the assessment and plan as necessary as documented in the resident's note.
[2024-06-08] MEDS: BUMETANIDE 0.25 MG/ML 10 ML VIAL IV SCH (00:06)
[2024-06-08 00:25] LABS: Glucose,Whole Blood 252 mg/dL (70-110)
[2024-06-08] MEDS: INSULIN DETEMIR (LEVEMIR) 100 UNIT/ML SYR SQ SCH (00:25)
[2024-06-08] MEDS: HEPARIN SODIUM,PORCINE 5,000 UNIT/ML 1 ML VIAL SQ SCH (00:25)
[2024-06-08] MEDS: carvediloL 12.5 MG TAB PO SCH (00:26)
[2024-06-08] MEDS: NITROGLYCERIN OINT 1 INCH/GM PACKET TOPICAL SCH (00:32)
[2024-06-08] MEDS: IPRATROPIUM-ALBUTEROL 3 ML NEB INHALATION PRN (01:35)
[2024-06-08] MEDS ORDERED: PANTOPRAZOLE 40 MG TABLET PO SCH (07:30)
[2024-06-08 08:04] LABS: Glucose,Whole Blood 119 mg/dL (70-110)
[2024-06-08] MEDS: INSULIN ASPART (NovoLOG) 100 UNIT/ML VIAL SQ SCH ×2 (08:07→12:43)
[2024-06-08] MEDS: ASPIRIN 81 MG PO SCH (08:44)
[2024-06-08] MEDS: LOSARTAN 50 MG TAB PO SCH (08:44)
[2024-06-08] MEDS: amLODIPine 10 MG TAB PO SCH (08:44)
[2024-06-08] MEDS: PANTOPRAZOLE 40 MG TABLET PO SCH (08:45)
[2024-06-08] MEDS: SYMBICORT 80-4.5 MCG INHALER INHALATION SCH (08:58)
[2024-06-08 10:25] LABS: Basophils % (A) 0 %; Eosinophils # (A) 0.3 k/uL (0-0.7); Eosinophils % (A) 3 %; HCT 33.5 % (39.0-53.0); HGB 10.3 gm/dL (13.0-17.5); Hypochromasia Moderate; Lymphocytes # (A) 0.9 k/uL (1.0-4.8); Lymphocytes % (A) 9 %; MCHC 30.7 g/dL (31.0-37.0); MCV 91.2 fL (80.0-100.0); Mean Platelet Volume 7.7; Monocytes # (A) 0.5 k/uL (0-1.0); Monocytes % (A) 5 %; Neutrophils % (A) 81 %; Platelet Count 225 k/uL (150-450); RBC 3.67 m/uL (4.30-5.90); WBC 9.9 k/uL (3.8-10.6)
[2024-06-08 11:00] LABS: ALT 13 U/L (4-49); AST 46 U/L (17-59); African American GFR (CKD) 39 (>60 ml/min/1.73 sqM); Albumin 2.1 g/dL (3.5-5.0); Alkaline Phosphatase 75 U/L (38-126); Anion Gap 3 mmol/L; Blood Urea Nitrogen 30 mg/dL (9-20); Calcium 7.9 mg/dL (8.4-10.2); Carbon Dioxide 30 mmol/L (22-30); Chloride 101 mmol/L (98-107); Glucose 131 mg/dL (74-99); Non-African American GFR(CKD) 34 (>60 ml/min/1.73 sqM); Potassium 3.8 mmol/L (3.5-5.1); Sodium 134 mmol/L (137-145); Total Bilirubin 0.5 mg/dL (0.2-1.3); Total Protein 5.2 g/dL (6.3-8.2)
--- NOTE | 2024-06-08 11:19 | P.CRDCN ---
History of Present Illness History of present illness: HISTORY OF PRESENT ILLNESS: This is a 54-year-old male with a past medical history significant for congestive heart failure, cardiomyopathy, severe LVH, chronic lower extremity edema, peripheral arterial disease, coronary artery disease, V-fib arrest, severe obstructive sleep apnea, chronic kidney disease, diabetes, and obesity. Patient follows in the office with Dr. Stinson. We have been asked to see the patient in consultation for congestive heart failure. Patient examined at the bedside in the emergency room. Patient presented to the hospital with a chief complaint of shortness of breath. Patient states he has been feeling short of breath for the past few days. He denies any chest pain or pressure. Patient was found to be in acute CHF and was started on IV diuretics. He reports improvement in his shortness of breath but states he still is short of breath with exertion. Vital signs are stable. Patient states he is a non-smoker. DIAGNOSTICS: - EKG reveals sinus mechanism with nonspecific ST-T wave changes - Chest xray negative for acute process - Chest CTA: Negative for pulmonary embolism, bronchial wall thickening correlate for bronchitis, left upper lobe pulmonary nodule, and hepatic steatosis - Laboratory data: WBC 12.9. Hemoglobin 12.3. Platelet count 270. D-dimer 1.34. Sodium 129. Potassium 4.8. BUN 28. Creatinine 1.8. BNP 12,200. Troponin 0.081. 0.087. 0.080. - Current home cardiac medications include Bumex 1 mg twice a day, Lipitor 80 mg at night, aspirin 81 mg daily, losartan 50 mg daily, amlodipine 10 mg daily, carvedilol 35.7 mg twice a day. - Most recent echocardiogram obtained in February 2024 revealed ejection fraction 3035%, inferior and inferior lateral wall hypokinesis, severe LVH, moderate MR, mild TR -Patient underwent Lexiscan stress test in January 2024 revealing severe intensity large sized fixed perfusion defect involving inferior and inferior lateral wall, EF 30% - Cardiac catheterization history: 2016 with stenting to the circumflex in the setting of acute inferior STEMI REVIEW OF SYSTEMS: At the time of my exam: CONSTITUTIONAL: Denies fever or chills. HEENT: Denies blurred vision, vision changes, or eye pain. Denies hemoptysis CARDIOVASCULAR: Denies chest pain. Denies orthopnea. Denies PND. Denies palpitations RESPIRATORY: Denies shortness of breath. GASTROINTESTINAL: Denies abdominal pain. Denies nausea or vomiting. HEMATOLOGIC: Denies bleeding disorders. GENITOURINARY: Denies any blood in urine. SKIN: Denies pruitis. Denies rash. PHYSICAL EXAM: VITAL SIGNS: Reviewed. GENERAL: Well-developed in no acute distress. HEENT: Head is normocephalic. Pupils are equal, round. Sclerae anicteric. Mucous membranes of the mouth are moist. Neck supple. No JVD or thyromegaly LUNGS: Respirations even and unlabored. Lungs diminished bilaterally. HEART: Regular rate and rhythm. S1 and S2 heard. ABDOMEN: Soft. Nondistended. Nontender. EXTREMITIES: Normal range of motion. No clubbing or cyanosis. Peripheral pulses intact. Bilateral lower extremity edema noted. NEUROLOGIC: Awake and alert. Oriented x 3. ASSESSMENT: Shortness of breath Acute on chronic heart failure with reduced EF Hyponatremia Elevated troponins, type II [place] secondary to oxygen supply/demand mismatch Coronary artery disease with previous stenting to the circumflex, 2015 History of V-fib cardiac arrest, 2016 Peripheral arterial disease Ischemic cardiomyopathy, EF 3035% Chronic lower extremity edema Severe concentric LVH Obstructive sleep apnea Diabetes Chronic kidney disease Morbid obesity: BMI 54.5 PLAN: No need to repeat echocardiogram as this was performed in the office in February 2024. However this was already ordered and taken by primary medicine. Resume home cardiac medications Continue IV Bumex 2 mg every 12 hours Daily weights, accurate intake and output, and monitoring of kidney function Further recommendations pending patient course Nurse practitioner note has been reviewed by physician. Signing provider agrees with the documented findings, assessment, and plan of care documented by WELDING MACHINE OPERATOR [employer] as a scribe. Past Medical History Past Medical History: Asthma, Heart Failure, COPD, Diabetes Mellitus, Deep Vein Thrombosis (DVT), Myocardial Infarction ([place]), Sleep Apnea/CPAP/BIPAP, Vascular Disorder Additional Past Medical History / Comment(s): 02/20/16 [place] with cardiac [id number] wore life vest for 7 weeks, 2010 DVT RIGHT leg, bilateral lower leg cellulitis, bilateral varicose veins, PVD, NIDDM type II, BERTRAND with CPAP. UTI Mar 2021, cellulitis with open wounds on bilateral lower legs being treated in wound center 2021 released 2 weeks ago 04/12/24, H/o covid 2021 Last Myocardial Infarction Date:: 02/20/16 History of Any Multi-Drug Resistant Organisms: MRSA Date of last positivie culture/infection: 2018 MDRO Source:: bilateral legs Past Surgical History: Heart Catheterization With Stent Additional Past Surgical History / Comment(s): circumcision Additional Past Anesthesia/Blood Transfusion Reaction / Comment(s): Pt has never had anesthesia Date of Last Stent Placement:: 02/20/16 Past Psychological History: No Psychological Hx Reported Smoking Status: Former smoker Past Alcohol Use History: None Reported Past Drug Use History: None Reported - Past Family History Father Family Medical History: Coronary Artery Disease (CAD), Diabetes Mellitus, Eye Disorder Additional Family Medical History / Comment(s): Bradycardia, blind. Father is in his early 70's. Mother Family Medical History: Coronary Artery Disease (CAD), Diabetes Mellitus Additional Family Medical History / Comment(s): Benign brain tumor. Mother is in her early 70's Medications and Allergies Home Medications Medication Instructions Recorded Confirmed Type Atorvastatin [Lipitor] 80 mg PO HS #30 tab 02/27/16 06/07/24 Rx Ipratropium/Albuterol Sulfate 1 puff INHALATION RT-QID 01/12/19 06/07/24 History [Combivent Respimat Inhaler] Omeprazole 20 mg PO DAILY 03/14/19 06/07/24 History Aspirin EC [Ecotrin Low Dose] 81 mg PO DAILY 10/17/20 06/07/24 History Fluticasone Propion/Salmeterol 1 puff INHALATION RT-BID 01/15/22 06/07/24 History [Wixela 250-50 Inhub] carvediloL 37.5 mg PO BID-W/MEALS 01/15/22 06/07/24 History Bumetanide [BUMEX] 1 mg PO AC-BID 01/23/24 06/07/24 History Ergocalciferol (Vitamin D2) 1,250 mcg PO Q7D 01/23/24 06/07/24 History [Drisdol (50,000 Iu)] Losartan [Cozaar] 50 mg PO DAILY #60 tab 02/01/24 06/07/24 Rx amLODIPine [Norvasc] 10 mg PO DAILY #90 tab 02/01/24 06/07/24 Rx Insulin Aspart [NovoLOG Flexpen] 6 units SQ AC-TID #1 each 04/18/24 06/07/24 Rx Insulin Glargine,Hum.rec.anlog 55 units SQ BID #2 each 04/18/24 06/07/24 Rx [Lantus Solostar Pen] Allergies Allergy/AdvReac Type Severity Reaction Status Date / Time tetracycline Allergy Rash/Hives Verified 06/07/24 13:55 Physical Exam Vitals: Vital Signs Temp Pulse Resp BP Pulse Ox 06/08/24 05:00 73 19 153/85 98 06/08/24 01:46 79 06/08/24 01:35 78 06/08/24 00:00 77 15 148/84 98 06/07/24 22:35 71 06/07/24 22:27 97 06/07/24 22:24 66 06/07/24 19:34 80 22 170/90 95 06/07/24 18:03 78 18 145/94 97 06/07/24 15:26 81 18 165/83 95 06/07/24 14:00 79 16 167/79 95 06/07/24 13:28 80 06/07/24 13:20 84 06/07/24 12:33 95 18 169/95 96 06/07/24 12:01 99 F 100 20 166/102 96 Intake and Output 06/07/24 06/08/24 06/08/24 22:59 06:59 14:59 Output Total 450 550 Balance -450 -550 Output: Urine 450 550 Results 06/08/24 10:08 06/08/24 10:08 Cardiac Enzymes 06/07/24 06/07/24 06/07/24 Range/Units 13:48 13:48 21:08 AST 25 (17-59) U/L Troponin I 0.081 H* 0.087 H* (0.000-0.034) ng/mL 06/08/24 Range/Units 00:00 AST (17-59) U/L Troponin I 0.080 H* (0.000-0.034) ng/mL Coagulation 06/07/24 Range/Units 13:01 PT 10.0 (10.0-12.5) sec APTT 33.5 H (22.0-30.0) sec CBC 06/07/24 Range/Units 13:01 WBC 12.9 H (3.8-10.6) k/uL RBC 4.27 L (4.30-5.90) m/uL Hgb 12.3 L (13.0-17.5) gm/dL Hct 39.1 (39.0-53.0) % Plt Count 270 (150-450) k/uL Comprehensive Metabolic Panel 06/07/24 Range/Units 13:48 Sodium 129 L (137-145) mmol/L Potassium 4.8 (3.5-5.1) mmol/L Chloride 103 (98-107) mmol/L Carbon Dioxide 23 (22-30) mmol/L BUN 28 H (9-20) mg/dL Creatinine 1.80 H (0.66-1.25) mg/dL Glucose 254 H (74-99) mg/dL Calcium 8.0 L (8.4-10.2) mg/dL AST 25 (17-59) U/L ALT 14 (4-49) U/L Alkaline Phosphatase 71 (38-126) U/L Total Protein 5.8 L (6.3-8.2) g/dL Albumin 2.4 L (3.5-5.0) g/dL Current Medications Generic Name Dose Route Start Last Admin Trade Name Freq PRN Reason Stop Dose Admin Albuterol/Ipratropium 3 ml 06/07/24 21:07 06/08/24 01:35 Ipratropium-Albuterol 3 Ml Neb INHALATION 3 ml RT-Q2H PRN Administration Shortness Of Breath Or Wheezing Amlodipine Besylate 10 mg 06/08/24 09:00 Amlodipine 10 Mg Tab PO DAILY [facility] Aspirin 81 mg 06/08/24 09:00 Aspirin 81 Mg PO DAILY [facility] Atorvastatin Calcium 80 mg 06/08/24 21:00 Atorvastatin 80 Mg Tab PO [facility] Budesonide/Formoterol Fumarate 2 puff 06/08/24 08:00 Symbicort 80-4.5 Mcg Inhaler INHALATION RT-BID [facility] Bumetanide 2 mg 06/07/24 00:00 06/08/24 00:10 Bumetanide 0.25 Mg/Ml 10 Ml Vial IV 2 mg Q12H NAWAF Administration Carvedilol 37.5 mg 06/07/24 23:45 06/08/24 00:26 Carvedilol 12.5 Mg Tab PO 37.5 mg BID-W/MEALS NAWAF Administration Dextrose/Water 25 ml 06/07/24 21:33 Dextrose 50% Syringe 50 Ml IVP PER PROTOCOL PRN Hypoglycemia Protocol Dextrose/Water 50 ml 06/07/24 21:33 Dextrose 50% Syringe 50 Ml IVP PER PROTOCOL PRN Hypoglycemia Protocol Heparin Sodium (Porcine) 5,000 unit 06/08/24 00:00 06/08/24 00:25 Heparin Sodium,Porcine 5,000 Unit/Ml 1 Ml Vial SQ 5,000 unit Q8HR NAWAF Administration Insulin Aspart 0 unit 06/08/24 07:30 06/08/24 08:07 Insulin Aspart (Novolog) 100 Unit/Ml Vial SQ Not Given ACHS NAWAF Protocol Insulin Detemir 55 unit 06/07/24 23:45 06/08/24 00:25 Insulin Detemir (Levemir) 100 Unit/Ml Syr SQ 55 unit HS NAWAF Administration Losartan Potassium 50 mg 06/08/24 09:00 Losartan 50 Mg Tab PO DAILY NAWAF Nitroglycerin 1 inch 06/08/24 00:00 06/08/24 08:03 Nitroglycerin Oint 1 Inch/Gm Packet TOPICAL 06/09/24 00:00 1 inch Q6HR NAWAF Administration Pantoprazole Sodium 40 mg 06/08/24 07:30 Pantoprazole 40 Mg Tablet PO DAILY@0730 NAWAF Sodium Chloride 10 ml 06/07/24 21:00 06/07/24 22:12 Sodium Chloride 0.9% Flush 10 Ml Syringe IV 10 ml BID NAWAF Administration Intake and Output 06/07/24 06/08/24 06/08/24 22:59 06:59 14:59 Output Total 450 550 Balance -450 -550 Output: Urine 450 550 06/07/24 13:01 06/07/24 13:48
--- NOTE | 2024-06-08 11:39 | P.GSCN ---
History of Present Illness Consult date: 06/08/24 Reason for Consult: bilateral leg and right foot ulcers Requesting physician: Emily Evans History of present illness: this patient is well known to the wound center. His current major issue is a diabetic ulcer on the plantar right foot. He has a difficult time offloading due to his severe obesity and respiratory issues. Review of Systems All systems: negative - Constitutional Reports fatigue, Reports weakness, Reports weight gain - Respiratory Reports dyspnea, Reports sleep apnea - Integumentary Reports wounds Past Medical History Past Medical History: Asthma, Heart Failure, COPD, Diabetes Mellitus, Deep Vein Thrombosis (DVT), Myocardial Infarction (PR), Sleep Apnea/CPAP/BIPAP, Vascular Disorder Additional Past Medical History / Comment(s): 02/20/16 PR with cardiac [id number] wore life vest for 7 weeks, 2010 DVT RIGHT leg, bilateral lower leg cellulitis, bilateral varicose veins, PVD, NIDDM type II, BERTRAND with CPAP. UTI Mar 2021, cellulitis with open wounds on bilateral lower legs being treated in wound center 2021 released 2 weeks ago 04/12/24, H/o covid 2020 Last Myocardial Infarction Date:: 02/20/16 History of Any Multi-Drug Resistant Organisms: MRSA Year Discovered:: 2018 MDRO Source:: bilateral legs Past Surgical History: Heart Catheterization With Stent Additional Past Surgical History / Comment(s): circumcision Additional Past Anesthesia/Blood Transfusion Reaction / Comm: Pt has never had anesthesia Date of Last Stent Placement:: 02/20/16 Past Psychological History: No Psychological Hx Reported Smoking Status: Former smoker Past Alcohol Use History: None Reported Past Drug Use History: None Reported - Past Family History Father Family Medical History: Coronary Artery Disease (CAD), Diabetes Mellitus, Eye Disorder Additional Family Medical History / Comment(s): Bradycardia, blind. Father is in his early 70's. Mother Family Medical History: Coronary Artery Disease (CAD), Diabetes Mellitus Additional Family Medical History / Comment(s): Benign brain tumor. Mother is in her early 70's Medications and Allergies Home Medications Medication Instructions Recorded Confirmed Type Atorvastatin [Lipitor] 80 mg PO HS #30 tab 02/27/16 06/07/24 Rx Ipratropium/Albuterol Sulfate 1 puff INHALATION RT-QID 01/12/19 06/07/24 History [Combivent Respimat Inhaler] Omeprazole 20 mg PO DAILY 03/14/19 06/07/24 History Aspirin EC [Ecotrin Low Dose] 81 mg PO DAILY 10/17/20 06/07/24 History Fluticasone Propion/Salmeterol 1 puff INHALATION RT-BID 01/15/22 06/07/24 History [Wixela 250-50 Inhub] carvediloL 37.5 mg PO BID-W/MEALS 01/15/22 06/07/24 History Bumetanide [BUMEX] 1 mg PO AC-BID 01/23/24 06/07/24 History Ergocalciferol (Vitamin D2) 1,250 mcg PO Q7D 01/23/24 06/07/24 History [Drisdol (50,000 Iu)] Losartan [Cozaar] 50 mg PO DAILY #60 tab 02/01/24 06/07/24 Rx amLODIPine [Norvasc] 10 mg PO DAILY #90 tab 02/01/24 06/07/24 Rx Insulin Aspart [NovoLOG Flexpen] 6 units SQ AC-TID #1 each 04/18/24 06/07/24 Rx Insulin Glargine,Hum.rec.anlog 55 units SQ BID #2 each 04/18/24 06/07/24 Rx [Lantus Solostar Pen] Allergies Allergy/AdvReac Type Severity Reaction Status Date / Time tetracycline Allergy Rash/Hives Verified 06/07/24 13:55 Surgical - Exam Osteopathic Statement: *. No significant issues noted on an osteopathic structural exam other than those noted in the History and Physical/Consult. Vital Signs Temp Pulse Resp BP Pulse Ox 99 F 100 20 166/102 96 06/07/24 12:01 06/07/24 12:01 06/07/24 12:01 06/07/24 12:01 06/07/24 12:01 - General severely obese. well developed, well nourished, no distress, other - Eyes normal ocular movement, no icteric - ENT no hearing loss, no congestion - Neck no masses, trachea midline - Respiratory normal respiratory effort, clear to auscultation - Abdomen Abdomen: soft, non tender, no guarding, no rigid, no rebound - Integumentary no rash, no abnormal pigmentation - Neurologic no disoriented, no combative - Psychiatric oriented to time, oriented to person, oriented to place, speech is normal, memory intact 3+ edema both lower legs with blistering on the left leg and a plantar ulcer on the right foot with rim of callus formation. Results - Labs 06/08/24 10:08 06/08/24 10:08 Abnormal Lab Results - Last 24 Hours (Table) 06/06/24 06/07/24 06/07/24 Range/Units 13:01 13:01 13:01 WBC 12.9 H (3.8-10.6) k/uL RBC 4.27 L (4.30-5.90) m/uL Hgb 12.3 L (13.0-17.5) gm/dL Hct (39.0-53.0) % MCHC (31.0-37.0) g/dL Neutrophils # 11.1 H (1.3-7.7) k/uL Lymphocytes # 0.7 L (1.0-4.8) k/uL APTT 33.5 H (22.0-30.0) sec D-Dimer 1.34 H (<0.60) mg/L FEU Sodium (137-145) mmol/L BUN (9-20) mg/dL Creatinine (0.66-1.25) mg/dL Glucose (74-99) mg/dL POC Glucose (mg/dL) (70-110) mg/dL Hemoglobin A1c 11.1 H (<=6.0) % Calcium (8.4-10.2) mg/dL Troponin I (0.000-0.034) ng/mL Total Protein (6.3-8.2) g/dL Albumin (3.5-5.0) g/dL 06/07/24 06/07/24 06/07/24 Range/Units 13:48 13:48 21:08 WBC (3.8-10.6) k/uL RBC (4.30-5.90) m/uL Hgb (13.0-17.5) gm/dL Hct (39.0-53.0) % MCHC (31.0-37.0) g/dL Neutrophils # (1.3-7.7) k/uL Lymphocytes # (1.0-4.8) k/uL APTT (22.0-30.0) sec D-Dimer (<0.60) mg/L FEU Sodium 129 L (137-145) mmol/L BUN 28 H (9-20) mg/dL Creatinine 1.80 H (0.66-1.25) mg/dL Glucose 254 H (74-99) mg/dL POC Glucose (mg/dL) (70-110) mg/dL Hemoglobin A1c (<=6.0) % Calcium 8.0 L (8.4-10.2) mg/dL Troponin I 0.081 H* 0.087 H* (0.000-0.034) ng/mL Total Protein 5.8 L (6.3-8.2) g/dL Albumin 2.4 L (3.5-5.0) g/dL 06/08/24 06/08/24 06/08/24 Range/Units 00:00 00:23 08:02 WBC (3.8-10.6) k/uL RBC (4.30-5.90) m/uL Hgb (13.0-17.5) gm/dL Hct (39.0-53.0) % MCHC (31.0-37.0) g/dL Neutrophils # (1.3-7.7) k/uL Lymphocytes # (1.0-4.8) k/uL APTT (22.0-30.0) sec D-Dimer (<0.60) mg/L FEU Sodium (137-145) mmol/L BUN (9-20) mg/dL Creatinine (0.66-1.25) mg/dL Glucose (74-99) mg/dL POC Glucose (mg/dL) 252 H 119 H (70-110) mg/dL Hemoglobin A1c (<=6.0) % Calcium (8.4-10.2) mg/dL Troponin I 0.080 H* (0.000-0.034) ng/mL Total Protein (6.3-8.2) g/dL Albumin (3.5-5.0) g/dL 06/08/24 06/08/24 Range/Units 10:08 10:08 WBC (3.8-10.6) k/uL RBC 3.67 L (4.30-5.90) m/uL Hgb 10.3 L (13.0-17.5) gm/dL Hct 33.5 L (39.0-53.0) % MCHC 30.7 L (31.0-37.0) g/dL Neutrophils # 8.0 H (1.3-7.7) k/uL Lymphocytes # 0.9 L (1.0-4.8) k/uL APTT (22.0-30.0) sec D-Dimer (<0.60) mg/L FEU Sodium 134 L (137-145) mmol/L BUN 30 H (9-20) mg/dL Creatinine 2.14 H (0.66-1.25) mg/dL Glucose 131 H (74-99) mg/dL POC Glucose (mg/dL) (70-110) mg/dL Hemoglobin A1c (<=6.0) % Calcium 7.9 L (8.4-10.2) mg/dL Troponin I (0.000-0.034) ng/mL Total Protein 5.2 L (6.3-8.2) g/dL Albumin 2.1 L (3.5-5.0) g/dL Diabetes panel 06/06/24 06/07/24 06/08/24 Range/Units 13:01 13:48 10:08 Sodium 129 L 134 L (137-145) mmol/L Potassium 4.8 3.8 (3.5-5.1) mmol/L Chloride 103 101 (98-107) mmol/L Carbon Dioxide 23 30 (22-30) mmol/L BUN 28 H 30 H (9-20) mg/dL Creatinine 1.80 H 2.14 H (0.66-1.25) mg/dL Glucose 254 H 131 H (74-99) mg/dL Hemoglobin A1c 11.1 H (<=6.0) % Calcium 8.0 L 7.9 L (8.4-10.2) mg/dL AST 25 46 (17-59) U/L ALT 14 13 (4-49) U/L Alkaline Phosphatase 71 75 (38-126) U/L Total Protein 5.8 L 5.2 L (6.3-8.2) g/dL Albumin 2.4 L 2.1 L (3.5-5.0) g/dL Calcium panel 06/07/24 06/08/24 Range/Units 13:48 10:08 Calcium 8.0 L 7.9 L (8.4-10.2) mg/dL Albumin 2.4 L 2.1 L (3.5-5.0) g/dL Pituitary panel 06/07/24 06/08/24 Range/Units 13:48 10:08 Sodium 129 L 134 L (137-145) mmol/L Potassium 4.8 3.8 (3.5-5.1) mmol/L Chloride 103 101 (98-107) mmol/L Carbon Dioxide 23 30 (22-30) mmol/L BUN 28 H 30 H (9-20) mg/dL Creatinine 1.80 H 2.14 H (0.66-1.25) mg/dL Glucose 254 H 131 H (74-99) mg/dL Calcium 8.0 L 7.9 L (8.4-10.2) mg/dL Adrenal panel 06/07/24 06/08/24 Range/Units 13:48 10:08 Sodium 129 L 134 L (137-145) mmol/L Potassium 4.8 3.8 (3.5-5.1) mmol/L Chloride 103 101 (98-107) mmol/L Carbon Dioxide 23 30 (22-30) mmol/L BUN 28 H 30 H (9-20) mg/dL Creatinine 1.80 H 2.14 H (0.66-1.25) mg/dL Glucose 254 H 131 H (74-99) mg/dL Calcium 8.0 L 7.9 L (8.4-10.2) mg/dL Total Bilirubin 0.7 0.5 (0.2-1.3) mg/dL AST 25 46 (17-59) U/L ALT 14 13 (4-49) U/L Alkaline Phosphatase 71 75 (38-126) U/L Total Protein 5.8 L 5.2 L (6.3-8.2) g/dL Albumin 2.4 L 2.1 L (3.5-5.0) g/dL Assessment and Plan (1) Diabetic ulcer of right foot associated with diabetes mellitus due to underlying condition, with fat layer exposed Current Visit: Yes Status: Acute Code(s): E08.621 - DIABETES MELLITUS DUE TO UNDERLYING CONDITION W FOOT ULCER; L97.512 - NON-PRS CHRONIC ULCER OTH PRT RIGHT FOOT W FAT LAYER EXPOSED SNOMED Code(s): 875307741 (2) Non-pressure chronic ulcer of left calf with fat layer exposed Current Visit: No Status: Acute Code(s): L97.222 - NON-PRESSURE CHRONIC ULCER OF LEFT CALF W FAT LAYER EXPOSED SNOMED Code(s): 18433640561834767 (3) Type 2 diabetes mellitus with other skin ulcer Current Visit: No Status: Acute Code(s): E11.622 - TYPE 2 DIABETES MELLITUS WITH OTHER SKIN ULCER; L98.499 - NON-PRESSURE CHRONIC ULCER OF SKIN OF SITES W UNSP SEVERITY SNOMED Code(s): 909530506663459 Plan: I discussed the case with the urine nurse caregiver. I recommended we start with silver alginate to be replaced every other day. Simple gauze dressings to cover. Both leg should be securely Bobby wrapped from just proximal to the toes to just below the knee. The patient should be nonweightbearing on the right foot. ECF placement on his discharge would facilitate healing of the right foot. Should he be transferred to an ECF at the end of his stay they should be instructed to continue with nonweightbearing on the right foot. We will be happy to follow him in Wound Center on his discharge.
[2024-06-08 12:24] LABS: Glucose,Whole Blood 195 mg/dL (70-110)
--- NOTE | 2024-06-08 12:48 | CA ---
Transthoracic Echo Report Name: Bear Epstein Age: 54 Gender: M : 1970 Exam Date: 06/08/2024 08:06 Exam Location: [facility] Ht (in): 70 Wt (lb): 380 Ordering Physician: Selvin Velarde MD Attending/Referring Phys: Senior [employer] Applications Developer Luz Dobson RDCS Procedure CPT: Indications: chf exacerbation Cardiac Hx: Technical Quality: Technically difficult study Contrast 1: Definity Total Dose (mL): 1 Contrast 2: Total Dose (mL): MEASUREMENTS (Male / Female) Normal Values 2D ECHO LV Diastolic Diameter PLAX 6.4 cm 4.2 - 5.9 / 3.9 - 5.3 cm LV Systolic Diameter PLAX 5.2 cm IVS Diastolic Thickness 1.1 cm 0.6 - 1.0 / 0.6 - 0.9 cm LVPW Diastolic Thickness 1.1 cm 0.6 - 1.0 / 0.6 - 0.9 cm LV Relative Wall Thickness 0.4 LVOT Diameter 2.7 cm LV Diastolic Volume MOD BP 210.1 cm??? 67 - 155 / 56 - 104 cm??? LV Systolic Volume MOD BP 136.5 cm??? 22 - 58 / 19 - 49 cm??? LV Ejection Fraction MOD BP 35.0 % >= 55 % LV Cardiac Index MOD BP 1707.4 cm???/min???m??? LV Diastolic Volume MOD 4C 209.6 cm??? LV Systolic Volume MOD 4C 136.3 cm??? LV Ejection Fraction MOD 4C 35.0 % LV Cardiac Index MOD 4C 1701.3 cm???/min???m??? LV Diastolic Length 4C 10.6 cm LV Systolic Length 4C 10.2 cm LV Diastolic Volume MOD 2C 200.0 cm??? LV Systolic Volume MOD 2C 127.0 cm??? LV Ejection Fraction MOD 2C 36.5 % LV Cardiac Index MOD 2C 1693.3 cm???/min???m??? LV Diastolic Length 2C 10.0 cm LV Systolic Length 2C 9.4 cm LA Volume 78.6 cm??? 18 - 58 / 22 - 52 cm??? LA Volume Index 26.1 cm???/m??? 16 - 28 cm???/m??? DOPPLER AV Peak Velocity 149.3 cm/s AV Peak Gradient 8.9 mmHg AV Mean Velocity 107.5 cm/s AV Mean Gradient 5.1 mmHg AV Velocity Time Integral 25.5 cm LVOT Peak Velocity 104.5 cm/s LVOT Peak Gradient 4.4 mmHg LVOT Velocity Time Integral 18.1 cm LVOT Stroke Volume 101.1 cm??? LVOT Stroke Volume Index 36.9 ml/m??? LVOT Cardiac Index 2346.6 cm???/min???m??? AV Area Cont Eq vti 4.0 cm??? AV Area Cont Eq pk 3.9 cm??? MV Area PHT 3.1 cm??? Mitral E Point Velocity 97.0 cm/s Mitral A Point Velocity 83.1 cm/s Mitral E to A Ratio 1.2 MV Deceleration Time 244.3 ms FINDINGS Left Ventricle Left ventricular ejection fraction is estimated at 30-35 %. Mildly increased left ventricular diastolic diameter. Severely increased left ventricular diastolic volume. Severely increased left ventricular systolic volume. Severely decreased left ventricular ejection fraction. Right Ventricle Normal right ventricular size and function. Unable to estimate the right ventricular systolic pressure. Right Atrium Moderate right atrial dilatation. Left Atrium Moderately increased left atrial volume. Mildly increased left atrial area. Mitral Valve Structurally normal mitral valve. No evidence for mitral valve prolapse. No mitral stenosis. Mild mitral regurgitation. Aortic Valve Trileaflet aortic valve. No aortic valve stenosis or regurgitation. Tricuspid Valve Structurally normal tricuspid valve. No tricuspid stenosis. No tricuspid regurgitation. Pulmonic Valve Pulmonic valve not well visualized. Pericardium No pericardial effusion. Aorta Aortic annulus normal. CONCLUSIONS Technically difficult study. Definity ECHO contrast used for improved visualization of the endocardial borders (inadequate visualization of two or more contiguous segments). Severe global hypokinesis of the left ventricle Very limited Doppler study Previewed by: Dr. Analia Degroot MD (Electronically Signed) Final Date: 08 June 2024 12:47
--- NOTE | 2024-06-08 16:10 | P.PN ---
Subjective Progress Note Date: 06/08/24 54-year-old male with a PMH of systolic CHF (EF 20 to 25%), asthma, COPD, diabetes mellitus, and CKD 3B presents with complaints of shortness of breath. Reports 3 weeks ago he started feeling shortness of breath, and states that this time he went to an urgent care where he was prescribed steroids and azithromycin which he reports he finished antibiotic course and steroids. States after completing this he felt slightly better but still had shortness of breath. Notes during this time he has had to sleep sitting on the edge of the bed, admits to orthopnea. States that shortness of breath gets worse on exertion. Admits to seeing increased swelling in his lower extremities compared to before this all started. Of note during recent admission he was treated for foot ulcers, which she reports he follows consistently with wound care outpatient. Admits to a mild cough but denies any sputum production. Denies fever, chills, headache, chest pain, palpitations, nausea, vomiting, diarrhea, constipation. Labs: WBC 12.9, hemoglobin 12.3, D-dimer 1.34, sodium 129, BUN 28, creatinine 1.8, glucose 254, troponin 0.01, BNP 12,200, and viral respiratory panel all negative. Imaging: - EKG done in the ER showed heart rate of 94 bpm, sinus rhythm, possible left atrial enlargement, and QTc 406. - ER CXR: No acute cardiopulmonary disease/process. - ER CTA chest: No evidence of PE, bronchial wall thickening, left upper lung pulmonary nodule measuring 8 mm, hepatic steatosis 06/08/2024 patient seen and examined at bedside. Patient seen and examined at bedside. Patient noted that his shortness of breath is improved and only occurs on exertion such as walking. He denies chest pain, calf tenderness, cough, subjective fevers, chills, nausea vomiting, or diarrhea. WBC 9.9 hemoglobin 10.3 platelet count 2 25,000 sodium 134 potassium 3.8 chloride 101 bicarb 30 BUN 30 creatinine 2.14 glucose 131 calcium 7.9 magnesium 2 AST 46 ALT 13 ALP 75 troponin peaked at 0.08 albumin 2.1. Echo left ventricular ejection fraction estimated 30 to 35% with severely increased diastolic volume. Severe global hypokinesis of the left ventricle. Review of systems: Pertinent positives and negatives as discussed in HPI, a complete review of systems was performed and all other systems are negative. Pertinent imaging and labs reviewed. Physical examination: Vital signs reviewed General: non toxic, no distress, appears at stated age Derm: no unusual rashes/lesions, warm Head: atraumatic, normocephalic, symmetric Eyes: EOMI, anicteric sclera, pupils equal round reactive to light ENT: Nose and ears atraumatic Neck: No cervical lymphadenopathy, trachea midline, supple Mouth: no lip lesion, mucus membranes moist Cardiovascular: S1S2 reg, no murmur Lungs: Inspiratory wheezes auscultated bilaterally, no rhonchi, no rales, no accessory muscle use Abdominal: soft, nontender to palpation, no guarding Ext: muscle strength 5 out of 5 in all 4 extremities grossly, no gross muscle atrophy, no contractures, positive dorsalis pedis pulse bilateral, chronic wound wrapped in bandaging (ulcers), right foot with no erythema or noticeable discharge appreciated, pedal edema appreciated, trace to 1+ pitting edema up to the mid calf noted on bilateral lower extremities Neuro: CN II-XI grossly intact, no gross focal neuro deficits Psych: Alert and oriented x3, appropriate affect and mood Assessment/Plan: #Acute on chronic hypoxic respiratory failure secondary to CHF exacerbation # Acute on chronic systolic CHF (EF 20 to 25%), NYHA class III, not on GDMT #COPD #Hypervolemic hyponatremia -Cardiac monitoring -Fluid restrict to 2 L daily -Strict I's and O's -O2 NC as needed -CXR from today looks slightly better (less blunting of the costophrenic angle bilaterally) than previous CXR from 02/25/2024, still showing some degree of pulmonary vascular congestion -Echo left ventricular ejection fraction estimated 30 to 35% with severely increased diastolic volume. Severe global hypokinesis of the left ventricle. -Initial troponin 0.081 continues to be flat 0.087 -BNP 12,200 -Ordered DuoNeb 3 ml every 2 hours as needed for shortness of breath or wheezing -Received Lasix 40 mg IV once in the ED -Continue Bumex 2 mg IV every 12 hours and titrate to efficacious dose, monitor electrolytes -Farxiga 10 mg p.o. daily -Cardiology consulted #Leukocytosis, reactive -WBC decreased to 9.9 today. Patient is afebrile and has not developed any new symptoms. Chronic Conditions: # Chronic right foot wound Patient being seen at home wound care. -Consult wound care #CKD stage IIIb: -Continue home medications once reconciled by pharmacy -Baseline estimated GFR between 30 and 45, currently 42 -Baseline creatinine 1.69-2.2, currently 1.8 -Continue to monitor daily BMP #Diabetes mellitus, uncontrolled -Hold home medications -Start sliding scale -Accu-Cheks -Continue home NovoLog 6 units subcu 3 times daily -levemir 55 units at bedtime #Hypertension -Continue home medication once reconciled by pharmacy F: Oral intake. Restrict to 2 L fluid E: None N: Heart healthy diet with fluid restriction to 2 L DVT prophylaxis: Heparin 5000 units SQ every 8 hours GI prophylaxis: Home omeprazole 20 mg p.o. daily Emily Evans MD PGY-1/[employer] Receptionist Dictation was produced using [employer] dictation software. please excuse any grammatical, word or spelling errors. Patient is severely ill, needs close monitoring. Prognosis guarded. I have seen and evaluated the patient today. Discussed with the resident and agree with the residents finding and plan as documented in the resident's note. Changes highlighted in blue font. Objective - Vital Signs Vital signs: Vital Signs Temp 98.8 F 06/08/24 08:45 Pulse 59 L 06/08/24 09:08 Resp 20 06/08/24 09:08 BP 160/86 06/08/24 08:45 Pulse Ox 96 06/08/24 09:01 FiO2 Intake & Output 06/07/24 06/08/24 06/08/24 18:59 06:59 18:59 Intake Total 442 Output Total 1000 1150 Balance -1000 -708 Weight 172.365 kg 172.365 kg Intake: Oral 442 Output: Urine 1000 1150 Other: # Bowel Movements 0 - Labs CBC & Chem 7: 06/08/24 10:08 06/08/24 10:08 Labs: Abnormal Lab Results - Last 24 Hours (Table) 06/06/24 06/07/24 06/08/24 Range/Units 13:01 21:08 00:00 RBC (4.30-5.90) m/uL Hgb (13.0-17.5) gm/dL Hct (39.0-53.0) % MCHC (31.0-37.0) g/dL Neutrophils # (1.3-7.7) k/uL Lymphocytes # (1.0-4.8) k/uL Sodium (137-145) mmol/L BUN (9-20) mg/dL Creatinine (0.66-1.25) mg/dL Glucose (74-99) mg/dL POC Glucose (mg/dL) (70-110) mg/dL Hemoglobin A1c 11.1 H (<=6.0) % Calcium (8.4-10.2) mg/dL Troponin I 0.087 H* 0.080 H* (0.000-0.034) ng/mL Total Protein (6.3-8.2) g/dL Albumin (3.5-5.0) g/dL 06/08/24 06/08/24 06/08/24 Range/Units 00:23 08:02 10:08 RBC 3.67 L (4.30-5.90) m/uL Hgb 10.3 L (13.0-17.5) gm/dL Hct 33.5 L (39.0-53.0) % MCHC 30.7 L (31.0-37.0) g/dL Neutrophils # 8.0 H (1.3-7.7) k/uL Lymphocytes # 0.9 L (1.0-4.8) k/uL Sodium (137-145) mmol/L BUN (9-20) mg/dL Creatinine (0.66-1.25) mg/dL Glucose (74-99) mg/dL POC Glucose (mg/dL) 252 H 119 H (70-110) mg/dL Hemoglobin A1c (<=6.0) % Calcium (8.4-10.2) mg/dL Troponin I (0.000-0.034) ng/mL Total Protein (6.3-8.2) g/dL Albumin (3.5-5.0) g/dL 06/08/24 06/08/24 Range/Units 10:08 12:22 RBC (4.30-5.90) m/uL Hgb (13.0-17.5) gm/dL Hct (39.0-53.0) % MCHC (31.0-37.0) g/dL Neutrophils # (1.3-7.7) k/uL Lymphocytes # (1.0-4.8) k/uL Sodium 134 L (137-145) mmol/L BUN 30 H (9-20) mg/dL Creatinine 2.14 H (0.66-1.25) mg/dL Glucose 131 H (74-99) mg/dL POC Glucose (mg/dL) 195 H (70-110) mg/dL Hemoglobin A1c (<=6.0) % Calcium 7.9 L (8.4-10.2) mg/dL Troponin I (0.000-0.034) ng/mL Total Protein 5.2 L (6.3-8.2) g/dL Albumin 2.1 L (3.5-5.0) g/dL
[2024-06-08 17:00] LABS: Glucose,Whole Blood 130 mg/dL (70-110)
[2024-06-08 20:06] LABS: Glucose,Whole Blood 177 mg/dL (70-110)
[2024-06-08] MEDS: ATORVASTATIN 80 MG TAB PO SCH (21:26)
[2024-06-09 06:05] LABS: Glucose,Whole Blood 84 mg/dL (70-110)
[2024-06-09 07:21] LABS: Glucose,Whole Blood 66 mg/dL (70-110)
[2024-06-09 07:39] LABS: Glucose,Whole Blood 101 mg/dL (70-110)
[2024-06-09] MEDS: DAPAGLIFLOZIN PROPANEDIOL 10 MG TABLET PO SCH (07:42)
[2024-06-09 10:03] LABS: Basophils % (A) 0 %; Eosinophils # (A) 0.2 k/uL (0-0.7); Eosinophils % (A) 1 %; HCT 34.1 % (39.0-53.0); HGB 10.3 gm/dL (13.0-17.5); Hypochromasia Marked; Lymphocytes # (A) 0.7 k/uL (1.0-4.8); Lymphocytes % (A) 4 %; MCH 28.1 pg (25.0-35.0); MCHC 30.1 g/dL (31.0-37.0); MCV 93.3 fL (80.0-100.0); Mean Platelet Volume 7.7; Monocytes # (A) 0.8 k/uL (0-1.0); Monocytes % (A) 5 %; Neutrophils # (A) 13.4 k/uL (1.3-7.7); Neutrophils % (A) 88 %; Platelet Count 204 k/uL (150-450); RBC 3.66 m/uL (4.30-5.90); RDW 15.1 % (11.5-15.5); WBC 15.3 k/uL (3.8-10.6)
[2024-06-09 10:21] LABS: African American GFR (CKD) 30 (>60 ml/min/1.73 sqM); Anion Gap 6 mmol/L; Blood Urea Nitrogen 37 mg/dL (9-20); Carbon Dioxide 26 mmol/L (22-30); Chloride 100 mmol/L (98-107); Glucose 178 mg/dL (74-99); Non-African American GFR(CKD) 26 (>60 ml/min/1.73 sqM); Potassium 4.2 mmol/L (3.5-5.1); Sodium 132 mmol/L (137-145)
[2024-06-09 11:13] LABS: Glucose,Whole Blood 220 mg/dL (70-110)
--- NOTE | 2024-06-09 12:00 | P.PN ---
Subjective Progress Note Date: 06/09/24 54-year-old male with a PMH of systolic CHF (EF 20 to 25%), asthma, COPD, diabetes mellitus, and CKD 3B presents with complaints of shortness of breath. Reports 3 weeks ago he started feeling shortness of breath, and states that this time he went to an urgent care where he was prescribed steroids and azithromycin which he reports he finished antibiotic course and steroids. States after completing this he felt slightly better but still had shortness of breath. Notes during this time he has had to sleep sitting on the edge of the bed, admits to orthopnea. States that shortness of breath gets worse on exertion. Admits to seeing increased swelling in his lower extremities compared to before this all started. Of note during recent admission he was treated for foot ulcers, which she reports he follows consistently with wound care outpatient. Admits to a mild cough but denies any sputum production. Denies fever, chills, headache, chest pain, palpitations, nausea, vomiting, diarrhea, constipation. Labs: WBC 12.9, hemoglobin 12.3, D-dimer 1.34, sodium 129, BUN 28, creatinine 1.8, glucose 254, troponin 0.01, BNP 12,200, and viral respiratory panel all negative. Imaging: - EKG done in the ER showed heart rate of 94 bpm, sinus rhythm, possible left atrial enlargement, and QTc 406. - ER CXR: No acute cardiopulmonary disease/process. - ER CTA chest: No evidence of PE, bronchial wall thickening, left upper lung pulmonary nodule measuring 8 mm, hepatic steatosis 06/08/2024 patient seen and examined at bedside. Patient noted that his shortness of breath is improved and only occurs on exertion such as walking. He denies chest pain, calf tenderness, cough, subjective fevers, chills, nausea vomiting, or diarrhea. WBC 9.9 hemoglobin 10.3 platelet count 2 25,000 sodium 134 potassium 3.8 chloride 101 bicarb 30 BUN 30 creatinine 2.14 glucose 131 calcium 7.9 magnesium 2 AST 46 ALT 13 ALP 75 troponin peaked at 0.08 albumin 2.1. Echo left ventricular ejection fraction estimated 30 to 35% with severely increased diastolic volume. Severe global hypokinesis of the left ventricle. 06/09/2024 patient seen and examined at bedside. Patient noted to have improved shortness of breath better than yesterday. No acute events overnight. WBC 15.3 hemoglobin 10.3 platelet count 204,000 sodium 132 potassium 4.2 chloride 100 bicarb 26 BUN 37 creatinine 2.64 glucose 178 calcium 8 Review of systems: Pertinent positives and negatives as discussed in HPI, a complete review of systems was performed and all other systems are negative. Pertinent imaging and labs reviewed. Physical examination: Vital signs reviewed General: non toxic, no distress, appears at stated age Derm: no unusual rashes/lesions, warm Head: atraumatic, normocephalic, symmetric Eyes: EOMI, anicteric sclera, pupils equal round reactive to light ENT: Nose and ears atraumatic Neck: No cervical lymphadenopathy, trachea midline, supple Mouth: no lip lesion, mucus membranes moist Cardiovascular: S1S2 reg, no murmur Lungs: Inspiratory wheezes auscultated bilaterally, no rhonchi, no rales, no accessory muscle use Abdominal: soft, nontender to palpation, no guarding Ext: muscle strength 5 out of 5 in all 4 extremities grossly, no gross muscle atrophy, no contractures, positive dorsalis pedis pulse bilateral, chronic wound wrapped in bandaging (ulcers), right foot with no erythema or noticeable discharge appreciated, pedal edema appreciated, trace to 1+ pitting edema up to the mid calf noted on bilateral lower extremities Neuro: CN II-XI grossly intact, no gross focal neuro deficits Psych: Alert and oriented x3, appropriate affect and mood Assessment/Plan: #Acute on chronic hypoxic respiratory failure secondary to CHF exacerbation, improving #Acute on chronic systolic CHF (EF 20 to 25%), NYHA class III, not on GDMT, improving #COPD #Hypervolemic hyponatremia, stable -Cardiac monitoring -Fluid restrict to 2 L daily -Strict I's and O's -O2 NC as needed -CXR from today looks slightly better (less blunting of the costophrenic angle bilaterally) than previous CXR from 02/25/2024, still showing some degree of pulmonary vascular congestion -Echo left ventricular ejection fraction estimated 30 to 35% with severely increased diastolic volume. Severe global hypokinesis of the left ventricle. -Initial troponin 0.081 continues to be flat 0.087 -BNP 12,200 -Ordered DuoNeb 3 ml every 2 hours as needed for shortness of breath or wheezing -Continue Bumex 2 mg IV every 12 hours and titrate to efficacious dose, monitor electrolytes -Farxiga 10 mg p.o. daily -Cardiology consulted #Leukocytosis, reactive -WBC 15.3 today. Patient is afebrile and has not developed any new symptoms. -Will continue to monitor #CHAVO on CKD stage IIIb -BUN and creatinine increasing trend. Currently BUN 37 creatinine 2.64 -Baseline creatinine 1.69-2.2 -Continue to monitor daily BMP -Discontinue losartan and amlodipine Chronic Conditions: # Chronic right foot wound Patient being seen at home wound care. -Consult wound care #Diabetes mellitus, controlled -Hold home medications -Start sliding scale -Accu-Cheks -Continue home NovoLog 6 units subcu 3 times daily -Decreased levemir 40 units at bedtime #Hypertension -Hold amlodipine and losartan for now F: Oral intake. Restrict to 2 L fluid E: None N: Heart healthy diet with fluid restriction to 2 L DVT prophylaxis: Heparin 5000 units SQ every 8 hours GI prophylaxis: Home omeprazole 20 mg p.o. daily Emily Evans MD PGY-1/[employer] Dictation was produced using [employer] dictation software. please excuse any grammatical, word or spelling errors. I have seen and evaluated the patient today. Discussed with the resident and agree with the residents finding and plan as documented in the resident's note. Changes highlighted in blue font. Objective - Vital Signs Vital signs: Vital Signs Temp 98.2 F 06/09/24 07:39 Pulse 68 06/09/24 08:46 Resp 17 06/09/24 07:39 BP 102/67 06/09/24 07:39 Pulse Ox 96 06/09/24 08:28 FiO2 Intake & Output 06/08/24 06/09/24 06/09/24 18:59 06:59 18:59 Intake Total 662 500 600 Output Total 1750 600 600 Balance -1088 -100 0 Weight 172.365 kg 172.2 kg Intake: Oral 662 500 600 Output: Urine 1750 600 Post Void Residual 600 Stool 0 Other: Voiding Method Bedside Commode Bedside Commode # Bowel Movements 0 - Labs CBC & Chem 7: 06/09/24 09:36 06/09/24 09:36 Labs: Abnormal Lab Results - Last 24 Hours (Table) 06/08/24 06/08/24 06/08/24 Range/Units 12:22 16:57 20:04 WBC (3.8-10.6) k/uL RBC (4.30-5.90) m/uL Hgb (13.0-17.5) gm/dL Hct (39.0-53.0) % MCHC (31.0-37.0) g/dL Neutrophils # (1.3-7.7) k/uL Lymphocytes # (1.0-4.8) k/uL Sodium (137-145) mmol/L BUN (9-20) mg/dL Creatinine (0.66-1.25) mg/dL Glucose (74-99) mg/dL POC Glucose (mg/dL) 195 H 130 H 177 H (70-110) mg/dL Calcium (8.4-10.2) mg/dL 06/09/24 06/09/24 06/09/24 Range/Units 07:19 09:36 09:36 WBC 15.3 H (3.8-10.6) k/uL RBC 3.66 L (4.30-5.90) m/uL Hgb 10.3 L (13.0-17.5) gm/dL Hct 34.1 L (39.0-53.0) % MCHC 30.1 L (31.0-37.0) g/dL Neutrophils # 13.4 H (1.3-7.7) k/uL Lymphocytes # 0.7 L (1.0-4.8) k/uL Sodium 132 L (137-145) mmol/L BUN 37 H (9-20) mg/dL Creatinine 2.64 H (0.66-1.25) mg/dL Glucose 178 H (74-99) mg/dL POC Glucose (mg/dL) 66 L (70-110) mg/dL Calcium 8.0 L (8.4-10.2) mg/dL 06/09/24 Range/Units 11:10 WBC (3.8-10.6) k/uL RBC (4.30-5.90) m/uL Hgb (13.0-17.5) gm/dL Hct (39.0-53.0) % MCHC (31.0-37.0) g/dL Neutrophils # (1.3-7.7) k/uL Lymphocytes # (1.0-4.8) k/uL Sodium (137-145) mmol/L BUN (9-20) mg/dL Creatinine (0.66-1.25) mg/dL Glucose (74-99) mg/dL POC Glucose (mg/dL) 220 H (70-110) mg/dL Calcium (8.4-10.2) mg/dL
--- NOTE | 2024-06-09 13:52 | P.PN ---
Subjective HISTORY OF PRESENT ILLNESS: This is a 54-year-old male with a past medical history significant for congestive heart failure, cardiomyopathy, severe LVH, chronic lower extremity edema, peripheral arterial disease, coronary artery disease, V-fib arrest, severe obstructive sleep apnea, chronic kidney disease, diabetes, and obesity. Patient follows in the office with Dr. Stinson. We have been asked to see the patient in consultation for congestive heart failure. Patient examined at the bedside in the emergency room. Patient presented to the hospital with a chief complaint of shortness of breath. Patient states he has been feeling short of breath for the past few days. He denies any chest pain or pressure. Patient was found to be in acute CHF and was started on IV diuretics. He reports improvement in his shortness of breath but states he still is short of breath with exertion. Vital signs are stable. Patient states he is a non-smoker. DIAGNOSTICS: - EKG reveals sinus mechanism with nonspecific ST-T wave changes - Chest xray negative for acute process - Chest CTA: Negative for pulmonary embolism, bronchial wall thickening correl ate for bronchitis, left upper lobe pulmonary nodule, and hepatic steatosis - Laboratory data: WBC 12.9. Hemoglobin 12.3. Platelet count 270. D-dimer 1.34. Sodium 129. Potassium 4.8. BUN 28. Creatinine 1.8. BNP 12,200. Troponin 0.081. 0.087. 0.080. - Current home cardiac medications include Bumex 1 mg twice a day, Lipitor 80 mg at night, aspirin 81 mg daily, losartan 50 mg daily, amlodipine 10 mg daily, carvedilol 35.7 mg twice a day. - Most recent echocardiogram obtained in February 2024 revealed ejection fraction 3035%, inferior and inferior lateral wall hypokinesis, severe LVH, moderate MR, mild TR -Patient underwent Lexiscan stress test in January 2024 revealing severe intensity large sized fixed perfusion defect involving inferior and inferior lateral wall, EF 30% - Cardiac catheterization history: 2016 with stenting to the circumflex in the setting of acute inferior STEMI 06/09/2024 Patient examined this morning at the bedside. Patient currently denies any chest pain or pressure. He denies any shortness of breath at rest. He states he has not been out of bed a whole lot yet to assess his shortness of breath with exertion. He remains on IV Bumex 2 mg every 12 hours. He continues to have lower extremity edema although improving. He is currently on room air. Creatinine today increased to 2.64. Echocardiogram completed revealing ejection fraction 30 to 35% with severe global hypokinesis of left ventricle PHYSICAL EXAM: VITAL SIGNS: Reviewed. GENERAL: Well-developed in no acute distress. HEENT: Head is normocephalic. Pupils are equal, round. Sclerae anicteric. Mucous membranes of the mouth are moist. Neck supple. No JVD or thyromegaly LUNGS: Respirations even and unlabored. Lungs diminished bilaterally. HEART: Regular rate and rhythm. S1 and S2 heard. ABDOMEN: Soft. Nondistended. Nontender. EXTREMITIES: Normal range of motion. No clubbing or cyanosis. Peripheral pulses intact. Bilateral lower extremity edema noted. NEUROLOGIC: Awake and alert. Oriented x 3. ASSESSMENT: Shortness of breath Acute on chronic heart failure with reduced EF, 3035% Acute on chronic kidney disease Hyponatremia Elevated troponins, type II WI secondary to oxygen supply/demand mismatch Coronary artery disease with previous stenting to the circumflex, 2015 History of V-fib cardiac arrest, 2016 Peripheral arterial disease Ischemic cardiomyopathy, EF 3035% Chronic lower extremity edema Severe concentric LVH Obstructive sleep apnea Diabetes Morbid obesity: BMI 54.5 PLAN: No need to repeat echocardiogram as this was performed in the office in February 2024. However this was already ordered and taken by primary medicine. Decrease Bumex to 1 mg twice a day due to worsening kidney function May need to discontinue Farxiga as well Consult nephrology for evaluation Daily weights, accurate intake and output, and monitoring of kidney function Further recommendations pending patient course Nurse practitioner note has been reviewed by physician. Signing provider agrees with the documented findings, assessment, and plan of care documented by FRUIT VENDOR as a scribe. Objective - Vital Signs Vital signs: Vital Signs Temp 98.2 F 06/09/24 07:39 Pulse 68 06/09/24 13:12 Resp 16 06/09/24 11:47 BP 114/74 06/09/24 11:47 Pulse Ox 92 L 06/09/24 11:47 FiO2 Intake & Output 06/08/24 06/09/24 06/09/24 18:59 06:59 18:59 Intake Total 520 102 5123 Output Total 2972 094 3733 Balance -1088 -100 240 Weight 172.365 kg 172.2 kg Intake: Oral 186 221 5533 Output: Urine 1750 1200 Post Void Residual 600 Stool 0 Other: Voiding Method Bedside Commode Bedside Commode # Bowel Movements 0 1 - Labs CBC & Chem 7: 06/09/24 09:36 06/09/24 09:36 Labs: Abnormal Lab Results - Last 24 Hours (Table) 06/08/24 06/08/24 06/09/24 Range/Units 16:57 20:04 07:19 WBC (3.8-10.6) k/uL RBC (4.30-5.90) m/uL Hgb (13.0-17.5) gm/dL Hct (39.0-53.0) % MCHC (31.0-37.0) g/dL Neutrophils # (1.3-7.7) k/uL Lymphocytes # (1.0-4.8) k/uL Sodium (137-145) mmol/L BUN (9-20) mg/dL Creatinine (0.66-1.25) mg/dL Glucose (74-99) mg/dL POC Glucose (mg/dL) 130 H 177 H 66 L (70-110) mg/dL Calcium (8.4-10.2) mg/dL 06/09/24 06/09/24 06/09/24 Range/Units 09:36 09:36 11:10 WBC 15.3 H (3.8-10.6) k/uL RBC 3.66 L (4.30-5.90) m/uL Hgb 10.3 L (13.0-17.5) gm/dL Hct 34.1 L (39.0-53.0) % MCHC 30.1 L (31.0-37.0) g/dL Neutrophils # 13.4 H (1.3-7.7) k/uL Lymphocytes # 0.7 L (1.0-4.8) k/uL Sodium 132 L (137-145) mmol/L BUN 37 H (9-20) mg/dL Creatinine 2.64 H (0.66-1.25) mg/dL Glucose 178 H (74-99) mg/dL POC Glucose (mg/dL) 220 H (70-110) mg/dL Calcium 8.0 L (8.4-10.2) mg/dL
--- NOTE | 2024-06-09 16:05 | US ---
EXAMINATION TYPE: US kidneys/renal and bladder DATE OF EXAM: 06/09/2024 Exam done portable COMPARISON: US 2023 CLINICAL INDICATION: Male, 54 years old with history of CHAVO; TECHNIQUE: Grayscale imaging of the bilateral kidneys and urinary bladder: FINDINGS: EXAM MEASUREMENTS: Right Kidney: 11.6 x 6.3 x 5.1 cm Left Kidney: 10.3 x 5.2 x 5.7 cm Difficult and limited study due to patient body habitus Right Kidney: visualized portions appear wnl Left Kidney: visualized portions appear wnl Bladder: not imaged due to above limitations There is no evidence for hydronephrosis at this point in time. No nephrolithiasis is seen. No rosalva s are identified. The urinary bladder is anechoic. IMPRESSION: No evidence of acute obstructive uropathy. [facility], , 06/09/2024 4:03 PM
[2024-06-09 16:11] LABS: Glucose,Whole Blood 263 mg/dL (70-110)
[2024-06-09 20:00] LABS: Glucose,Whole Blood 263 mg/dL (70-110)
[2024-06-09] MEDS: INSULIN DETEMIR (LEVEMIR) 100 UNIT/ML SYR SQ SCH (21:25)
[2024-06-09] MEDS: BUMETANIDE 0.25 MG/ML 10 ML VIAL IV SCH (23:47)
[2024-06-10] MEDS: ACETAMINOPHEN TAB 325 MG TAB PO PRN (01:36)
--- NOTE | 2024-06-10 02:14 | XR ---
EXAM: XR Chest, 1 View CLINICAL HISTORY: Shortness of breath TECHNIQUE: Frontal view of the chest. COMPARISON: CT chest from FINDINGS: Lungs: Subtle patchy airspace opacities scattered in both lungs suggestive of pneumonia are better seen on the comparison CT. Pleural space: Unremarkable. Mediastinum: Unremarkable. Normal mediastinal contour. Bones/joints: No acute findings. IMPRESSION: persistent bilateral pneumonia.
[2024-06-10 05:30] LABS: Glucose,Whole Blood 225 mg/dL (70-110)
[2024-06-10 06:37] LABS: Potassium 4.3 mmol/L (3.5-5.1)
[2024-06-10 06:38] LABS: African American GFR (CKD) 26 (>60 ml/min/1.73 sqM); Anion Gap 2 mmol/L; Blood Urea Nitrogen 44 mg/dL (9-20); Calcium 7.7 mg/dL (8.4-10.2); Carbon Dioxide 27 mmol/L (22-30); Chloride 100 mmol/L (98-107); Glucose 196 mg/dL (74-99); Non-African American GFR(CKD) 22 (>60 ml/min/1.73 sqM); Sodium 129 mmol/L (137-145)
[2024-06-10 06:51] LABS: Glucose,Whole Blood 214 mg/dL (70-110)
--- NOTE | 2024-06-10 08:27 | P.NPCON ---
History of Present Illness - Reason for Consult acute renal failure - History of Present Illness patient is a 54-year-old male with history of morbid obesity, type 2 diabetes, CK D stage IIIB with baseline creatinine 1.8-2 mg/dL since January 2024. Previous creatinine 1.4-1.6 in September 2023. Patient is admitted to the hospital with complaints of shortness of breath and increased leg swelling. Status post oral steroids and antibiotics for possible respiratory infection recently. History of chronic foot ulcers. No significant urinary symptoms. Bladder scan reported at 600 mL but patient states that he was able to void and repeat scan did not show much urine in the bladder. serum creatinine was 1.8 on initial admission and increased to 3.0 today. Blood pressure had been low with systolic documented at 91 mmHg. Maintained on Cozaar at home, currently on hold Urine output documented at 1750 ML for 24 hours. Patient is voiding and a bedside commode. 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 UTI Mar 2021, cellulitis with open wounds on bilateral lower legs being treated in wound center [facility] 2020 Last Myocardial Infarction Date:: 02/20/16 History of Any Multi-Drug Resistant Organisms: MRSA Date of last positivie culture/infection: 2017 MDRO Source:: bilateral legs Past Surgical History: Heart Catheterization With Stent Additional Past Surgical History / Comment(s): circumcision Additional Past Anesthesia/Blood Transfusion Reaction / Comment(s): Pt has never had anesthesia Date of Last Stent Placement:: 02/20/16 Past Psychological History: No Psychological Hx Reported Additional Psychological History / Comment(s): He is independent. Smoking Status: Former smoker Past Alcohol Use History: None Reported Additional Past Alcohol Use History / Comment(s): Pt states he started smoking at age 18 yrs and quit 02/20/16. Past Drug Use History: None Reported - Past Family History Father Family Medical History: Coronary Artery Disease (CAD), Diabetes Mellitus, Eye Disorder Additional Family Medical History / Comment(s): Bradycardia, blind. Father is in his early 70's. Mother Family Medical History: Coronary Artery Disease (CAD), Diabetes Mellitus Additional Family Medical History / Comment(s): Benign brain tumor. Mother is in her early 70's Medications and Allergies Home Medications Medication Instructions Recorded Confirmed Type Atorvastatin [Lipitor] 80 mg PO HS #30 tab 02/27/16 06/07/24 Rx Ipratropium/Albuterol Sulfate 1 puff INHALATION RT-QID 01/12/19 06/07/24 History [Combivent Respimat Inhaler] Omeprazole 20 mg PO DAILY 03/14/19 06/07/24 History Aspirin EC [Ecotrin Low Dose] 81 mg PO DAILY 10/17/20 06/07/24 History Fluticasone Propion/Salmeterol 1 puff INHALATION RT-BID 01/15/22 06/07/24 History [Wixela 250-50 Inhub] carvediloL 37.5 mg PO BID-W/MEALS 01/15/22 06/07/24 History Bumetanide [BUMEX] 1 mg PO AC-BID 01/23/24 06/07/24 History Ergocalciferol (Vitamin D2) 1,250 mcg PO Q7D 01/23/24 06/07/24 History [Drisdol (50,000 Iu)] Losartan [Cozaar] 50 mg PO DAILY #60 tab 02/01/24 06/07/24 Rx amLODIPine [Norvasc] 10 mg PO DAILY #90 tab 02/01/24 06/07/24 Rx Insulin Aspart [NovoLOG Flexpen] 6 units SQ AC-TID #1 each 04/18/24 06/07/24 Rx Insulin Glargine,Hum.rec.anlog 55 units SQ BID #2 each 04/18/24 06/07/24 Rx [Lantus Solostar Pen] Allergies Allergy/AdvReac Type Severity Reaction Status Date / Time tetracycline Allergy Rash/Hives Verified 06/07/24 13:55 Physical Exam Vitals: Vital Signs Temp Pulse Pulse Resp BP Pulse Ox 06/10/24 08:12 76 06/10/24 04:21 16 91 L 06/10/24 04:00 100.1 F H 78 16 115/79 87 L 06/10/24 02:24 78 06/10/24 02:12 78 06/10/24 00:09 77 24 06/10/24 00:03 79 24 06/09/24 23:55 100.1 F H 83 16 114/73 91 L 06/09/24 20:52 75 06/09/24 20:38 79 06/09/24 19:44 98.9 F 80 16 110/72 93 L 06/09/24 16:16 66 06/09/24 15:55 66 06/09/24 15:43 72 16 120/76 92 L 06/09/24 13:12 68 06/09/24 12:59 70 06/09/24 11:47 68 16 114/74 92 L 06/09/24 08:46 68 06/09/24 08:28 68 96 Intake and Output 06/09/24 06/10/24 06/10/24 22:59 06:59 14:59 Intake Total 1440 1440 Output Total 400 Balance 1440 1040 Intake: Oral 1440 1440 Output: Urine 400 Other: Voiding Method Bedside Commode Bedside Commode # Voids 1 Weight 180 kg patient is awake, comfortable, no acute distress Morbidly obese Examination of the heart S1 and S2 Examination of the lungs decreased breath sounds at the bases, distant breath sounds Abdomen is soft obese Examination of lower extremity shows chronic skin changes, legs are wrapped. 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 Acute kidney injury, ATN currently nonoliguric. Also component of cardiorenal syndrome with fluid overload. Currently being diuresed.check UA. Ultrasound did not show any gross obstructive uropathy but it was a poor study due to body habitus. 2. Chronic kidney disease NKF stage IIIB with baseline creatinine 1.8-2 mg/dL since January 2024. Previous creatinine noted to be 1.3-1.6 mg/dL. Etiology is likely diabetic kidney disease. Maintained on angiotensin receptor blockers prior to admission. 3. Morbid obesity 4. Hypervolemic hyponatremia 5. Chronic CHF with decreased ejection fraction of 20-25% 6. Type 2 diabetes Plan: check UA Continue with current dose of diuretics agree with holding Cozaar for now Repeat post void residual. Continue with Farxiga. Accurate I's and O's and daily weights. Thank you for the consultation. We will continue to follow the patient with you during his hospitalization.
[2024-06-10 09:42] LABS: Basophils % (A) 0 %; Eosinophils # (A) 0.1 k/uL (0-0.7); Eosinophils % (A) 1 %; HCT 29.5 % (39.0-53.0); HGB 9.1 gm/dL (13.0-17.5); Hypochromasia Moderate; Lymphocytes # (A) 0.7 k/uL (1.0-4.8); Lymphocytes % (A) 5 %; MCH 28.1 pg (25.0-35.0); MCHC 30.9 g/dL (31.0-37.0); MCV 90.8 fL (80.0-100.0); Mean Platelet Volume 8.3; Monocytes # (A) 0.6 k/uL (0-1.0); Monocytes % (A) 4 %; Neutrophils % (A) 89 %; Platelet Count 189 k/uL (150-450); RBC 3.24 m/uL (4.30-5.90); RDW 15.2 % (11.5-15.5); WBC 14.6 k/uL (3.8-10.6)
--- NOTE | 2024-06-10 11:25 | P.PN ---
Subjective HISTORY OF PRESENT ILLNESS: This is a 54-year-old male with a past medical history significant for congestive heart failure, cardiomyopathy, severe LVH, chronic lower extremity edema, peripheral arterial disease, coronary artery disease, V-fib arrest, severe obstructive sleep apnea, chronic kidney disease, diabetes, and obesity. Patient follows in the office with Dr. Stinson. We have been asked to see the patient in consultation for congestive heart failure. Patient examined at the bedside in the emergency room. Patient presented to the hospital with a chief complaint of shortness of breath. Patient states he has been feeling short of breath for the past few days. He denies any chest pain or pressure. Patient was found to be in acute CHF and was started on IV diuretics. He reports improvement in his shortness of breath but states he still is short of breath with exertion. Vital signs are stable. Patient states he is a non-smoker. DIAGNOSTICS: - EKG reveals sinus mechanism with nonspecific ST-T wave changes - Chest xray negative for acute process - Chest CTA: Negative for pulmonary embolism, bronchial wall thickening correl ate for bronchitis, left upper lobe pulmonary nodule, and hepatic steatosis - Laboratory data: WBC 12.9. Hemoglobin 12.3. Platelet count 270. D-dimer 1.34. Sodium 129. Potassium 4.8. BUN 28. Creatinine 1.8. BNP 12,200. Troponin 0.081. 0.087. 0.080. - Current home cardiac medications include Bumex 1 mg twice a day, Lipitor 80 mg at night, aspirin 81 mg daily, losartan 50 mg daily, amlodipine 10 mg daily, carvedilol 35.7 mg twice a day. - Most recent echocardiogram obtained in February 2024 revealed ejection fraction 3035%, inferior and inferior lateral wall hypokinesis, severe LVH, moderate MR, mild TR -Patient underwent Lexiscan stress test in January 2024 revealing severe intensity large sized fixed perfusion defect involving inferior and inferior lateral wall, EF 30% - Cardiac catheterization history: 2016 with stenting to the circumflex in the setting of acute inferior STEMI 06/09/2024 Patient examined this morning at the bedside. Patient currently denies any chest pain or pressure. He denies any shortness of breath at rest. He states he has not been out of bed a whole lot yet to assess his shortness of breath with exertion. He remains on IV Bumex 2 mg every 12 hours. He continues to have lower extremity edema although improving. He is currently on room air. Creatinine today increased to 2.64. Echocardiogram completed revealing ejection fraction 30 to 35% with severe global hypokinesis of left ventricle 06/10/2024 Patient examined this morning at the bedside. Patient currently denies any chest pain or pressure. He reports his breathing this morning feels " so-so". He does report wheezing this morning as well and is inquiring about steroids. Patient's creatinine today is worsened at 3.01. He is maintained on Bumex 1 mg twice a day. Vital signs are stable. Blood pressure 113/73. PHYSICAL EXAM: VITAL SIGNS: Reviewed. GENERAL: Well-developed in no acute distress. HEENT: Head is normocephalic. Pupils are equal, round. Sclerae anicteric. Mucous membranes of the mouth are moist. Neck supple. No JVD or thyromegaly LUNGS: Respirations even and unlabored. Lungs with expiratory wheezing noted HEART: Regular rate and rhythm. S1 and S2 heard. ABDOMEN: Soft. Nondistended. Nontender. EXTREMITIES: Normal range of motion. No clubbing or cyanosis. Peripheral pulses intact. Bilateral lower extremity edema noted. NEUROLOGIC: Awake and alert. Oriented x 3. ASSESSMENT: Shortness of breath Acute on chronic heart failure with reduced EF, 3035% Acute on chronic kidney disease Hyponatremia Elevated troponins, type II ME secondary to oxygen supply/demand mismatch Coronary artery disease with previous stenting to the circumflex, 2016 History of V-fib cardiac arrest, 2016 Peripheral arterial disease Ischemic cardiomyopathy, EF 3035% Chronic lower extremity edema Severe concentric LVH Obstructive sleep apnea Diabetes Morbid obesity: BMI 54.5 PLAN: Continue IV Bumex 1 mg twice a day Continue additional cardiac medications Nephrology following. Okay to continue with Farxiga at this time Daily weights, accurate intake and output, and monitoring of kidney function Further recommendations pending patient course Nurse practitioner note has been reviewed by physician. Signing provider agrees with the documented findings, assessment, and plan of care documented by TEST CARRIER as a scribe. Objective - Vital Signs Vital signs: Vital Signs Temp 99 F 06/10/24 08:30 Pulse 78 06/10/24 08:30 Resp 18 06/10/24 08:30 BP 113/73 06/10/24 08:30 Pulse Ox 93 L 06/10/24 08:30 FiO2 Intake & Output 06/09/24 06/10/24 06/10/24 18:59 06:59 18:59 Intake Total 1920 2400 481 Output Total 1200 400 400 Balance 720 2000 81 Weight 180 kg Intake: Oral 1920 2400 481 Output: Urine 1200 400 400 Other: Voiding Method Bedside Commode Bedside Commode # Voids 1 1 # Bowel Movements 1 - Labs CBC & Chem 7: 06/10/24 09:33 06/10/24 06:00 Labs: Abnormal Lab Results - Last 24 Hours (Table) 06/09/24 06/09/24 06/10/24 Range/Units 16:04 19:59 05:28 WBC (3.8-10.6) k/uL RBC (4.30-5.90) m/uL Hgb (13.0-17.5) gm/dL Hct (39.0-53.0) % MCHC (31.0-37.0) g/dL Neutrophils # (1.3-7.7) k/uL Lymphocytes # (1.0-4.8) k/uL Sodium (137-145) mmol/L BUN (9-20) mg/dL Creatinine (0.66-1.25) mg/dL Glucose (74-99) mg/dL POC Glucose (mg/dL) 263 H 263 H 225 H (70-110) mg/dL Calcium (8.4-10.2) mg/dL 06/10/24 06/10/24 06/10/24 Range/Units 06:00 06:49 09:33 WBC 14.6 H (3.8-10.6) k/uL RBC 3.24 L (4.30-5.90) m/uL Hgb 9.1 L (13.0-17.5) gm/dL Hct 29.5 L (39.0-53.0) % MCHC 30.9 L (31.0-37.0) g/dL Neutrophils # 13.0 H (1.3-7.7) k/uL Lymphocytes # 0.7 L (1.0-4.8) k/uL Sodium 129 L (137-145) mmol/L BUN 44 H (9-20) mg/dL Creatinine 3.01 H (0.66-1.25) mg/dL Glucose 196 H (74-99) mg/dL POC Glucose (mg/dL) 214 H (70-110) mg/dL Calcium 7.7 L (8.4-10.2) mg/dL
[2024-06-10 12:09] LABS: Glucose,Whole Blood 166 mg/dL (70-110)
--- NOTE | 2024-06-10 12:20 | P.PN ---
Subjective Progress Note Date: 06/10/24 54-year-old male with a PMH of systolic CHF (EF 20 to 25%), asthma, COPD, diabetes mellitus, and CKD 3B presents with complaints of shortness of breath. Reports 3 weeks ago he started feeling shortness of breath, and states that this time he went to an urgent care where he was prescribed steroids and azithromycin which he reports he finished antibiotic course and steroids. States after completing this he felt slightly better but still had shortness of breath. Notes during this time he has had to sleep sitting on the edge of the bed, admits to orthopnea. States that shortness of breath gets worse on exertion. Admits to seeing increased swelling in his lower extremities compared to before this all started. Of note during recent admission he was treated for foot ulcers, which she reports he follows consistently with wound care outpatient. Admits to a mild cough but denies any sputum production. Denies fever, chills, headache, chest pain, palpitations, nausea, vomiting, diarrhea, constipation. Labs: WBC 12.9, hemoglobin 12.3, D-dimer 1.34, sodium 129, BUN 28, creatinine 1.8, glucose 254, troponin 0.01, BNP 12,200, and viral respiratory panel all negative. Imaging: - EKG done in the ER showed heart rate of 94 bpm, sinus rhythm, possible left atrial enlargement, and QTc 406. - ER CXR: No acute cardiopulmonary disease/process. - ER CTA chest: No evidence of PE, bronchial wall thickening, left upper lung pulmonary nodule measuring 8 mm, hepatic steatosis 06/08/2024 patient seen and examined at bedside. Patient noted that his shortness of breath is improved and only occurs on exertion such as walking. He denies chest pain, calf tenderness, cough, subjective fevers, chills, nausea vomiting, or diarrhea. WBC 9.9 hemoglobin 10.3 platelet count 2 25,000 sodium 134 potassium 3.8 chloride 101 bicarb 30 BUN 30 creatinine 2.14 glucose 131 calcium 7.9 magnesium 2 AST 46 ALT 13 ALP 75 troponin peaked at 0.08 albumin 2.1. Echo left ventricular ejection fraction estimated 30 to 35% with severely increased diastolic volume. Severe global hypokinesis of the left ventricle. 06/09/2024 patient seen and examined at bedside. Patient noted to have improved shortness of breath better than yesterday. No acute events overnight. WBC 15.3 hemoglobin 10.3 platelet count 204,000 sodium 132 potassium 4.2 chloride 100 bicarb 26 BUN 37 creatinine 2.64 glucose 178 calcium 8 06/10/2024 patient seen and examined at bedside. Patient reported that they still experience shortness of breath on exertion. He also reported that they feel they have a lot of wheezing today. No acute events overnight. WBC 14.6 hemoglobin 9.1 MCV 9.8 platelet count 189,000 sodium 129 potassium 4.3 chloride 100 BUN 44 creatinine 3.01 glucose 196 calcium 7.7. CXR from 06/10 independently interpreted shows improved congestion. Ultrasound of the bladder shows no obstruction. Review of systems: Pertinent positives and negatives as discussed in HPI, a complete review of systems was performed and all other systems are negative. Pertinent imaging and labs reviewed. Physical examination: Vital signs reviewed General: non toxic, no distress, appears at stated age Derm: no unusual rashes/lesions, warm Head: atraumatic, normocephalic, symmetric Eyes: EOMI, anicteric sclera, pupils equal round reactive to light ENT: Nose and ears atraumatic Neck: No cervical lymphadenopathy, trachea midline, supple Mouth: no lip lesion, mucus membranes moist Cardiovascular: S1S2 reg, no murmur Lungs: Inspiratory wheezes auscultated bilaterally, no rhonchi, no rales, no accessory muscle use Abdominal: soft, nontender to palpation, no guarding Ext: muscle strength 5 out of 5 in all 4 extremities grossly, no gross muscle atrophy, no contractures, positive dorsalis pedis pulse bilateral, chronic wound wrapped in bandaging (ulcers), right foot with no erythema or noticeable discharge appreciated, pedal edema appreciated, trace to 1+ pitting edema up to the mid calf noted on bilateral lower extremities Neuro: CN II-XI grossly intact, no gross focal neuro deficits Psych: Alert and oriented x3, appropriate affect and mood Assessment/Plan: #Acute on chronic hypoxic respiratory failure secondary to CHF exacerbation, improving #Acute on chronic systolic CHF (EF 20 to 25%), NYHA class III, not on GDMT, improving #COPD #Hypervolemic hyponatremia, stable -Cardiac monitoring -Fluid restrict to 2 L daily -Strict I's and O's -O2 NC as needed -CXR from 06/10 independently interpreted shows improved congestion -Echo left ventricular ejection fraction estimated 30 to 35% with severely increased diastolic volume. Severe global hypokinesis of the left ventricle. -BNP 12,200 -Ordered DuoNeb 3 ml every 2 hours as needed for shortness of breath or wheezing -Per cardiology, decrease Bumex to 1mg IV every 12 hours, monitor electrolytes. Continue Farxiga 10 mg p.o. daily #Leukocytosis, reactive -WBC 14.6 today. Patient is afebrile and has not developed any new symptoms. -Will continue to monitor Chronic Conditions: # Chronic right foot wound Patient being seen at home wound care. -Consult wound care #CHAVO on CKD stage IIIb -BUN and creatinine increasing trend. Currently BUN 44, creatinine 3.01 -Baseline creatinine 1.69-2.2 -Continue to monitor daily BMP -Nephrology following. Ordered UA and agree with holding Cozaar. #Diabetes mellitus, controlled -Serum glucose today 196 -Hold home medications -Insulin NovoLog sliding scale ACHS -Accu-Cheks -Continue home NovoLog 6 units subcu 3 times daily -Increased levemir 45 units at bedtime #Hypertension -Hold amlodipine and losartan for now F: Oral intake. Restrict to 2 L fluid E: None N: Heart healthy diet with fluid restriction to 2 L DVT prophylaxis: Heparin 5000 units SQ every 8 hours, consider increasing to 7500 units based on weight GI prophylaxis: Home omeprazole 20 mg p.o. daily Emily Evans MD PGY-1/Agricultural Equipment Salesperson Dictation was produced using [employer] dictation software. please excuse any grammatical, word or spelling errors. I saw and evaluated the patient during the fernández and critical portions of this encounter, and discussed the case in detail with the resident author of this note, I agree with the Assessment and Plan, and my changes, if any, are highlighted in blue. Objective - Vital Signs Vital signs: Vital Signs Temp 100.1 F H 06/10/24 04:00 Pulse 78 06/10/24 04:00 Resp 16 06/10/24 04:21 BP 115/79 06/10/24 04:00 Pulse Ox 91 L 06/10/24 04:21 FiO2 Intake & Output 06/09/24 06/10/24 06/10/24 18:59 06:59 18:59 Intake Total 1920 2400 Output Total 1200 400 Balance 720 2000 Weight 180 kg Intake: Oral 1920 2400 Output: Urine 1200 400 Other: Voiding Method Bedside Commode Bedside Commode # Voids 1 # Bowel Movements 1 - Labs CBC & Chem 7: 06/10/24 09:33 06/10/24 06:00 Labs: Abnormal Lab Results - Last 24 Hours (Table) 06/09/24 06/09/24 06/09/24 Range/Units 07:19 09:36 09:36 WBC 15.3 H (3.8-10.6) k/uL RBC 3.66 L (4.30-5.90) m/uL Hgb 10.3 L (13.0-17.5) gm/dL Hct 34.1 L (39.0-53.0) % MCHC 30.1 L (31.0-37.0) g/dL Neutrophils # 13.4 H (1.3-7.7) k/uL Lymphocytes # 0.7 L (1.0-4.8) k/uL Sodium 132 L (137-145) mmol/L BUN 37 H (9-20) mg/dL Creatinine 2.64 H (0.66-1.25) mg/dL Glucose 178 H (74-99) mg/dL POC Glucose (mg/dL) 66 L (70-110) mg/dL Calcium 8.0 L (8.4-10.2) mg/dL 06/09/24 06/09/24 06/09/24 Range/Units 11:10 16:04 19:59 WBC (3.8-10.6) k/uL RBC (4.30-5.90) m/uL Hgb (13.0-17.5) gm/dL Hct (39.0-53.0) % MCHC (31.0-37.0) g/dL Neutrophils # (1.3-7.7) k/uL Lymphocytes # (1.0-4.8) k/uL Sodium (137-145) mmol/L BUN (9-20) mg/dL Creatinine (0.66-1.25) mg/dL Glucose (74-99) mg/dL POC Glucose (mg/dL) 220 H 263 H 263 H (70-110) mg/dL Calcium (8.4-10.2) mg/dL 06/10/24 06/10/24 06/10/24 Range/Units 05:28 06:00 06:49 WBC (3.8-10.6) k/uL RBC (4.30-5.90) m/uL Hgb (13.0-17.5) gm/dL Hct (39.0-53.0) % MCHC (31.0-37.0) g/dL Neutrophils # (1.3-7.7) k/uL Lymphocytes # (1.0-4.8) k/uL Sodium 129 L (137-145) mmol/L BUN 44 H (9-20) mg/dL Creatinine 3.01 H (0.66-1.25) mg/dL Glucose 196 H (74-99) mg/dL POC Glucose (mg/dL) 225 H 214 H (70-110) mg/dL Calcium 7.7 L (8.4-10.2) mg/dL
[2024-06-10 16:13] LABS: Glucose,Whole Blood 190 mg/dL (70-110)
[2024-06-10 19:49] LABS: Glucose,Whole Blood 207 mg/dL (70-110)
[2024-06-10] MEDS: INSULIN DETEMIR (LEVEMIR) 100 UNIT/ML SYR SQ SCH (20:39)
[2024-06-11 06:09] LABS: Glucose,Whole Blood 93 mg/dL (70-110)
[2024-06-11 06:48] LABS: Glucose,Whole Blood 115 mg/dL (70-110)
[2024-06-11 07:53] LABS: Basophils % (A) 0 %; Eosinophils # (A) 0.2 k/uL (0-0.7); Eosinophils % (A) 1 %; HCT 28.8 % (39.0-53.0); HGB 9.1 gm/dL (13.0-17.5); Hypochromasia Marked; Lymphocytes # (A) 0.8 k/uL (1.0-4.8); Lymphocytes % (A) 5 %; MCHC 31.6 g/dL (31.0-37.0); Monocytes # (A) 0.6 k/uL (0-1.0); Monocytes % (A) 4 %; Neutrophils % (A) 89 %; Platelet Count 222 k/uL (150-450); RBC 3.14 m/uL (4.30-5.90); RDW 15.1 % (11.5-15.5); WBC 17.9 k/uL (3.8-10.6)
[2024-06-11 08:16] LABS: African American GFR (CKD) 22 (>60 ml/min/1.73 sqM); Anion Gap 4 mmol/L; Blood Urea Nitrogen 49 mg/dL (9-20); Carbon Dioxide 28 mmol/L (22-30); Chloride 100 mmol/L (98-107); Glucose 116 mg/dL (74-99); Non-African American GFR(CKD) 19 (>60 ml/min/1.73 sqM); Potassium 4.1 mmol/L (3.5-5.1); Sodium 132 mmol/L (137-145)
--- NOTE | 2024-06-11 09:31 | P.PN ---
Subjective Patient is seen in follow-up for acute kidney injury on chronic kidney disease. On room air. Denies chest pain or shortness of breath. Has been voiding. Renal function worse. Vital signs are stable. General: No acute distress. HEENT: Head exam is unremarkable. On room air. LUNGS: No audible rhonchi or wheezes. HEART: Rate and Rhythm are regular. ABDOMEN: Obese, nontender. EXTREMITITES: Lower extremities wrapped. 1+ edema. Objective - Vital Signs Vital signs: Vital Signs Temp 99.9 F H 06/11/24 07:34 Pulse 76 06/11/24 09:03 Resp 24 06/11/24 07:34 BP 135/85 06/11/24 07:34 Pulse Ox 95 06/11/24 07:34 FiO2 Intake & Output 06/10/24 06/11/24 06/11/24 18:59 06:59 18:59 Intake Total 599 118 Output Total 400 500 Balance 199 -500 118 Weight 180 kg 108.5 kg Intake: Oral 599 118 Output: Urine 400 500 Other: Voiding Method Bedside Commode # Voids 1 # Bowel Movements 1 - Labs CBC & Chem 7: 06/11/24 07:30 06/11/24 07:30 Labs: Abnormal Lab Results - Last 24 Hours (Table) 06/10/24 06/10/24 06/10/24 Range/Units 09:33 12:07 16:11 WBC 14.6 H (3.8-10.6) k/uL RBC 3.24 L (4.30-5.90) m/uL Hgb 9.1 L (13.0-17.5) gm/dL Hct 29.5 L (39.0-53.0) % MCHC 30.9 L (31.0-37.0) g/dL Neutrophils # 13.0 H (1.3-7.7) k/uL Lymphocytes # 0.7 L (1.0-4.8) k/uL Sodium (137-145) mmol/L BUN (9-20) mg/dL Creatinine (0.66-1.25) mg/dL Glucose (74-99) mg/dL POC Glucose (mg/dL) 166 H 190 H (70-110) mg/dL Calcium (8.4-10.2) mg/dL 11/06/11/24 06/11/24 Range/Units 19:48 06:45 07:30 WBC (3.8-10.6) k/uL RBC (4.30-5.90) m/uL Hgb (13.0-17.5) gm/dL Hct (39.0-53.0) % MCHC (31.0-37.0) g/dL Neutrophils # (1.3-7.7) k/uL Lymphocytes # (1.0-4.8) k/uL Sodium 132 L (137-145) mmol/L BUN 49 H (9-20) mg/dL Creatinine 3.42 H (0.66-1.25) mg/dL Glucose 116 H (74-99) mg/dL POC Glucose (mg/dL) 207 H 115 H (70-110) mg/dL Calcium 8.0 L (8.4-10.2) mg/dL 06/11/24 Range/Units 07:30 WBC 17.9 H (3.8-10.6) k/uL RBC 3.14 L (4.30-5.90) m/uL Hgb 9.1 L (13.0-17.5) gm/dL Hct 28.8 L (39.0-53.0) % MCHC (31.0-37.0) g/dL Neutrophils # 16.0 H (1.3-7.7) k/uL Lymphocytes # 0.8 L (1.0-4.8) k/uL Sodium (137-145) mmol/L BUN (9-20) mg/dL Creatinine (0.66-1.25) mg/dL Glucose (74-99) mg/dL POC Glucose (mg/dL) (70-110) mg/dL Calcium (8.4-10.2) mg/dL Assessment and Plan Plan: Assessment: 1. Acute kidney injury secondary to ATN secondary to diuresis as well as contrast associated acute kidney injury. Patient received IV contrast on June 07, 2024. Creatinine 1.8 on admission and is up to 3.42 today. Kidney ultrasound showed no evidence of hydronephrosis. 2. Chronic kidney disease stage IIIb with baseline creatinine 1.8-2 secondary to diabetic kidney disease. 3. Acute on chronic systolic CHF ejection fraction of 30 to 35%. 4. Diabetes mellitus. 5. Anemia of chronic kidney disease. Rule out iron deficiency. 6. Hypervolemic hyponatremia. Improved. Plan: Stop diuretics and Farxiga. Continue to hold Cozaar. Check iron studies. Check bladder scan to rule out urinary retention. Case discussed with cardiology. Repeat labs in the morning.
[2024-06-11 11:23] LABS: Glucose,Whole Blood 222 mg/dL (70-110)
--- NOTE | 2024-06-11 12:07 | P.PN ---
Subjective HISTORY OF PRESENT ILLNESS: This is a 54-year-old male with a past medical history significant for congestive heart failure, cardiomyopathy, severe LVH, chronic lower extremity edema, peripheral arterial disease, coronary artery disease, V-fib arrest, severe obstructive sleep apnea, chronic kidney disease, diabetes, and obesity. Patient follows in the office with Dr. Stinson. We have been asked to see the patient in consultation for congestive heart failure. Patient examined at the bedside in the emergency room. Patient presented to the hospital with a chief complaint of shortness of breath. Patient states he has been feeling short of breath for the past few days. He denies any chest pain or pressure. Patient was found to be in acute CHF and was started on IV diuretics. He reports improvement in his shortness of breath but states he still is short of breath with exertion. Vital signs are stable. Patient states he is a non-smoker. DIAGNOSTICS: - EKG reveals sinus mechanism with nonspecific ST-T wave changes - Chest xray negative for acute process - Chest CTA: Negative for pulmonary embolism, bronchial wall thickening correl ate for bronchitis, left upper lobe pulmonary nodule, and hepatic steatosis - Laboratory data: WBC 12.9. Hemoglobin 12.3. Platelet count 270. D-dimer 1.34. Sodium 129. Potassium 4.8. BUN 28. Creatinine 1.8. BNP 12,200. Troponin 0.081. 0.087. 0.080. - Current home cardiac medications include Bumex 1 mg twice a day, Lipitor 80 mg at night, aspirin 81 mg daily, losartan 50 mg daily, amlodipine 10 mg daily, carvedilol 35.7 mg twice a day. - Most recent echocardiogram obtained in February 2024 revealed ejection fraction 3035%, inferior and inferior lateral wall hypokinesis, severe LVH, moderate MR, mild TR -Patient underwent Lexiscan stress test in January 2024 revealing severe intensity large sized fixed perfusion defect involving inferior and inferior lateral wall, EF 30% - Cardiac catheterization history: 2016 with stenting to the circumflex in the setting of acute inferior STEMI 06/09/2024 Patient examined this morning at the bedside. Patient currently denies any chest pain or pressure. He denies any shortness of breath at rest. He states he has not been out of bed a whole lot yet to assess his shortness of breath with exertion. He remains on IV Bumex 2 mg every 12 hours. He continues to have lower extremity edema although improving. He is currently on room air. Creatinine today increased to 2.64. Echocardiogram completed revealing ejection fraction 30 to 35% with severe global hypokinesis of left ventricle 06/10/2024 Patient examined this morning at the bedside. Patient currently denies any chest pain or pressure. He reports his breathing this morning feels " so-so". He does report wheezing this morning as well and is inquiring about steroids. Patient's creatinine today is worsened at 3.01. He is maintained on Bumex 1 mg twice a day. Vital signs are stable. Blood pressure 113/73. 06/11/2024 Patient examined this morning at the bedside. Patient reports mild shortness of breath. He denies chest pain or pressure. Patient's creatinine is worsened today at 3.42. Vital signs are stable. Telemetry reveals sinus mechanism. PHYSICAL EXAM: VITAL SIGNS: Reviewed. GENERAL: Well-developed in no acute distress. HEENT: Head is normocephalic. Pupils are equal, round. Sclerae anicteric. Mucous membranes of the mouth are moist. Neck supple. No JVD or thyromegaly LUNGS: Respirations even and unlabored. Lungs diminished bilaterally HEART: Regular rate and rhythm. S1 and S2 heard. ABDOMEN: Soft. Nondistended. Nontender. EXTREMITIES: Normal range of motion. No clubbing or cyanosis. Peripheral pulses intact. Bilateral lower extremity edema noted with Bobby bandages. NEUROLOGIC: Awake and alert. Oriented x 3. ASSESSMENT: Shortness of breath Acute on chronic heart failure with reduced EF, 3035% Acute on chronic kidney disease Hyponatremia Elevated troponins, type II CA secondary to oxygen supply/demand mismatch Coronary artery disease with previous stenting to the circumflex, 2016 History of V-fib cardiac arrest, 2016 Peripheral arterial disease Ischemic cardiomyopathy, EF 3035% Chronic lower extremity edema Severe concentric LVH Obstructive sleep apnea Diabetes Morbid obesity: BMI 54.5 PLAN: Continue Bumex and Farxiga Nephrology following. Repeat kidney function in a.m. Continue additional cardiac medications Daily weights, accurate intake and output, and monitoring of kidney function Further recommendations pending patient course Nurse practitioner note has been reviewed by physician. Signing provider agrees with the documented findings, assessment, and plan of care documented by CRUISE COUNSELOR as a scribe. Objective - Vital Signs Vital signs: Vital Signs Temp 99.4 F 06/11/24 11:44 Pulse 74 06/11/24 11:57 Resp 22 06/11/24 11:48 BP 127/79 06/11/24 11:44 Pulse Ox 94 L 06/11/24 11:48 FiO2 Intake & Output 06/10/24 06/11/24 06/11/24 18:59 06:59 18:59 Intake Total 599 118 Output Total 400 500 Balance 199 -500 118 Weight 180 kg 108.5 kg Intake: Oral 599 118 Output: Urine 400 500 Other: Voiding Method Bedside Commode Bedside Commode Urinal # Voids 1 # Bowel Movements 1 - Labs CBC & Chem 7: 06/11/24 07:30 06/11/24 07:30 Labs: Abnormal Lab Results - Last 24 Hours (Table) 06/10/24 06/10/24 06/10/24 Range/Units 12:07 16:11 19:48 WBC (3.8-10.6) k/uL RBC (4.30-5.90) m/uL Hgb (13.0-17.5) gm/dL Hct (39.0-53.0) % Neutrophils # (1.3-7.7) k/uL Lymphocytes # (1.0-4.8) k/uL Sodium (137-145) mmol/L BUN (9-20) mg/dL Creatinine (0.66-1.25) mg/dL Glucose (74-99) mg/dL POC Glucose (mg/dL) 166 H 190 H 207 H (70-110) mg/dL Calcium (8.4-10.2) mg/dL 06/11/24 06/11/24 06/11/24 Range/Units 06:45 07:30 07:30 WBC 17.9 H (3.8-10.6) k/uL RBC 3.14 L (4.30-5.90) m/uL Hgb 9.1 L (13.0-17.5) gm/dL Hct 28.8 L (39.0-53.0) % Neutrophils # 16.0 H (1.3-7.7) k/uL Lymphocytes # 0.8 L (1.0-4.8) k/uL Sodium 132 L (137-145) mmol/L BUN 49 H (9-20) mg/dL Creatinine 3.42 H (0.66-1.25) mg/dL Glucose 116 H (74-99) mg/dL POC Glucose (mg/dL) 115 H (70-110) mg/dL Calcium 8.0 L (8.4-10.2) mg/dL 06/11/24 Range/Units 11:21 WBC (3.8-10.6) k/uL RBC (4.30-5.90) m/uL Hgb (13.0-17.5) gm/dL Hct (39.0-53.0) % Neutrophils # (1.3-7.7) k/uL Lymphocytes # (1.0-4.8) k/uL Sodium (137-145) mmol/L BUN (9-20) mg/dL Creatinine (0.66-1.25) mg/dL Glucose (74-99) mg/dL POC Glucose (mg/dL) 222 H (70-110) mg/dL Calcium (8.4-10.2) mg/dL
--- NOTE | 2024-06-11 13:40 | P.PN ---
Subjective Progress Note Date: 06/11/24 54-year-old male with a PMH of systolic CHF (EF 20 to 25%), asthma, COPD, diabetes mellitus, and CKD 3B presents with complaints of shortness of breath. Reports 3 weeks ago he started feeling shortness of breath, and states that this time he went to an urgent care where he was prescribed steroids and azithromycin which he reports he finished antibiotic course and steroids. States after completing this he felt slightly better but still had shortness of breath. Notes during this time he has had to sleep sitting on the edge of the bed, admits to orthopnea. States that shortness of breath gets worse on exertion. Admits to seeing increased swelling in his lower extremities compared to before this all started. Of note during recent admission he was treated for foot ulcers, which she reports he follows consistently with wound care outpatient. Admits to a mild cough but denies any sputum production. Denies fever, chills, headache, chest pain, palpitations, nausea, vomiting, diarrhea, constipation. Labs: WBC 12.9, hemoglobin 12.3, D-dimer 1.34, sodium 129, BUN 28, creatinine 1.8, glucose 254, troponin 0.01, BNP 12,200, and viral respiratory panel all negative. Imaging: - EKG done in the ER showed heart rate of 94 bpm, sinus rhythm, possible left atrial enlargement, and QTc 406. - ER CXR: No acute cardiopulmonary disease/process. - ER CTA chest: No evidence of PE, bronchial wall thickening, left upper lung pulmonary nodule measuring 8 mm, hepatic steatosis 06/08/2024 patient seen and examined at bedside. Patient noted that his shortness of breath is improved and only occurs on exertion such as walking. He denies chest pain, calf tenderness, cough, subjective fevers, chills, nausea vomiting, or diarrhea. WBC 9.9 hemoglobin 10.3 platelet count 2 25,000 sodium 134 potassium 3.8 chloride 101 bicarb 30 BUN 30 creatinine 2.14 glucose 131 calcium 7.9 magnesium 2 AST 46 ALT 13 ALP 75 troponin peaked at 0.08 albumin 2.1. Echo left ventricular ejection fraction estimated 30 to 35% with severely increased diastolic volume. Severe global hypokinesis of the left ventricle. 06/09/2024 patient seen and examined at bedside. Patient noted to have improved shortness of breath better than yesterday. No acute events overnight. WBC 15.3 hemoglobin 10.3 platelet count 204,000 sodium 132 potassium 4.2 chloride 100 bicarb 26 BUN 37 creatinine 2.64 glucose 178 calcium 8 06/10/2024 patient seen and examined at bedside. Patient reported that they still experience shortness of breath on exertion. He also reported that they feel they have a lot of wheezing today. No acute events overnight. WBC 14.6 hemoglobin 9.1 MCV 9.8 platelet count 189,000 sodium 129 potassium 4.3 chloride 100 BUN 44 creatinine 3.01 glucose 196 calcium 7.7. CXR from 06/10 independently interpreted shows improved congestion. Ultrasound of the bladder shows no obstruction. 06/11/2024 patient seen and examined at bedside. Patient reported that he still experiences some shortness of breath. No acute events overnight. WBC 17.9 hemoglobin 9.1 platelet count 09/01/1999 sodium 132 potassium 4.1 chloride 100 BUN 49 creatinine 3.42 glucose 116 calcium 8 Review of systems: Pertinent positives and negatives as discussed in HPI, a complete review of systems was performed and all other systems are negative. Pertinent imaging and labs reviewed. Physical examination: Vital signs reviewed General: non toxic, no distress, appears at stated age Derm: no unusual rashes/lesions, warm Head: atraumatic, normocephalic, symmetric Eyes: EOMI, anicteric sclera, pupils equal round reactive to light ENT: Nose and ears atraumatic Neck: No cervical lymphadenopathy, trachea midline, supple Mouth: no lip lesion, mucus membranes moist Cardiovascular: S1S2 reg, no murmur Lungs: Diffuse expiratory wheezing auscultated bilaterally, no rhonchi, no rales, no accessory muscle use Abdominal: soft, nontender to palpation, no guarding Ext: muscle strength 5 out of 5 in all 4 extremities grossly, no gross muscle atrophy, no contractures, positive dorsalis pedis pulse bilateral, chronic wound wrapped in bandaging (ulcers), right foot with no erythema or noticeable discharge appreciated, pedal edema appreciated, trace to 1+ pitting edema up to the mid calf noted on bilateral lower extremities Neuro: CN II-XI grossly intact, no gross focal neuro deficits Psych: Alert and oriented x3, appropriate affect and mood Assessment/Plan: #Acute on chronic hypoxic respiratory failure secondary to CHF exacerbation, improving #Acute on chronic systolic CHF (EF 20 to 25%), NYHA class III, not on GDMT, improving #COPD #Hypervolemic hyponatremia, stable -Cardiac monitoring -Fluid restrict to 2 L daily -Daily weights -Strict I's and O's -O2 NC as needed -CXR from 06/10 independently interpreted shows improved congestion -Echo left ventricular ejection fraction estimated 30 to 35% with severely increased diastolic volume. Severe global hypokinesis of the left ventricle. -BNP 12,200 -Ordered DuoNeb 3 ml every 2 hours as needed for shortness of breath or wheezing -Cardiology following #Leukocytosis, reactive -WBC 14.6 today. Patient is afebrile and has not developed any new symptoms. -Will continue to monitor #CHAVO on CKD stage IIIb -BUN and creatinine increasing trend. Currently BUN 49 creatinine 3.42 -Baseline creatinine 1.69-2.2 -Continue to monitor daily BMP -UA today -Nephrology following. Sharath and Kiley held #Anemia of chronic disease, rule out iron deficiency -Iron studies -Monitor with CBC Chronic Conditions: # Chronic right foot wound Patient being seen at home wound care. -Consult wound care #Diabetes mellitus, controlled -Hold home medications -Insulin NovoLog sliding scale ACHS -Accu-Cheks -Continue home NovoLog 6 units subcu 3 times daily -Increase levemir 45 units at bedtime #Hypertension -Hold amlodipine and losartan for now F: Oral intake. Restrict to 2 L fluid E: None N: Heart healthy diet with fluid restriction to 2 L DVT prophylaxis: Heparin 5000 units SQ every 8 hours GI prophylaxis: Home omeprazole 20 mg p.o. daily Emily Evans MD PGY-1/Sponsorship Manager Dictation was produced using [employer] dictation software. please excuse any grammatical, word or spelling errors. I saw and evaluated the patient during the fernández and critical portions of this encounter, and discussed the case in detail with the resident author of this note, I agree with the Assessment and Plan, and my changes, if any, are highlighted in blue. Objective - Vital Signs Vital signs: Vital Signs Temp 99.4 F 06/11/24 11:44 Pulse 76 06/11/24 13:14 Resp 22 06/11/24 11:48 BP 127/79 06/11/24 11:44 Pulse Ox 94 L 06/11/24 11:48 FiO2 Intake & Output 06/10/24 06/11/24 06/11/24 18:59 06:59 18:59 Intake Total 599 118 Output Total 400 500 Balance 199 -500 118 Weight 180 kg 108.5 kg Intake: Oral 599 118 Output: Urine 400 500 Other: Voiding Method Bedside Commode Bedside Commode Urinal # Voids 1 # Bowel Movements 1 - Labs CBC & Chem 7: 06/11/24 07:30 06/11/24 07:30 Labs: Abnormal Lab Results - Last 24 Hours (Table) 06/10/24 06/10/24 06/11/24 Range/Units 16:11 19:48 06:45 WBC (3.8-10.6) k/uL RBC (4.30-5.90) m/uL Hgb (13.0-17.5) gm/dL Hct (39.0-53.0) % Neutrophils # (1.3-7.7) k/uL Lymphocytes # (1.0-4.8) k/uL Sodium (137-145) mmol/L BUN (9-20) mg/dL Creatinine (0.66-1.25) mg/dL Glucose (74-99) mg/dL POC Glucose (mg/dL) 190 H 207 H 115 H (70-110) mg/dL Calcium (8.4-10.2) mg/dL 06/11/24 06/11/24 06/11/24 Range/Units 07:30 07:30 11:21 WBC 17.9 H (3.8-10.6) k/uL RBC 3.14 L (4.30-5.90) m/uL Hgb 9.1 L (13.0-17.5) gm/dL Hct 28.8 L (39.0-53.0) % Neutrophils # 16.0 H (1.3-7.7) k/uL Lymphocytes # 0.8 L (1.0-4.8) k/uL Sodium 132 L (137-145) mmol/L BUN 49 H (9-20) mg/dL Creatinine 3.42 H (0.66-1.25) mg/dL Glucose 116 H (74-99) mg/dL POC Glucose (mg/dL) 222 H (70-110) mg/dL Calcium 8.0 L (8.4-10.2) mg/dL
[2024-06-11 14:08] LABS: % Iron Saturation 4.74 (15.00-50.00)
[2024-06-11 15:30] LABS: Amorphous Sediment,Urine Occasional /hpf; Appearance,Urine Cloudy (Clear); Bilirubin,Urine Negative (Negative); Blood,Urine Small (Negative); Color,Urine Yellow; Glucose,Urine (UA) 4+ (Negative); Hyaline Casts,Urine 1 /lpf (0-2); Ketones,Urine Negative (Negative); Leukocyte Esterase,Urine Negative (Negative); Mucus,Urine Rare /hpf; Nitrite,Urine Negative (Negative); Protein,Urine 3+ (Negative); RBC,Urine 3 /hpf (0-5); Specific Gravity,Urine 1.013 (1.001-1.035); Squamous Epithelial Cell,Urine <1 /hpf (0-4); Urobilinogen,Urine <2.0 mg/dL (<2.0); WBC,Urine 8 /hpf (0-5)
[2024-06-11 16:26] LABS: Glucose,Whole Blood 188 mg/dL (70-110)
[2024-06-11 17:18] LABS: Glucose,Whole Blood 184 mg/dL (70-110)
[2024-06-11 20:31] LABS: Glucose,Whole Blood 184 mg/dL (70-110)
[2024-06-12 04:13] LABS: Glucose,Whole Blood 165 mg/dL (70-110)
[2024-06-12 06:50] LABS: Glucose,Whole Blood 143 mg/dL (70-110)
--- NOTE | 2024-06-12 09:37 | P.PN ---
Subjective Patient is seen in follow-up for acute kidney injury on chronic kidney disease. On room air. Denies chest pain or shortness of breath. Has been voiding. Creatinine 3.42 yesterday. Diuretics discontinued yesterday. Morning labs pending. Vital signs are stable. General: No acute distress. HEENT: Head exam is unremarkable. On room air. LUNGS: No audible rhonchi or wheezes. HEART: Rate and Rhythm are regular. ABDOMEN: Obese, nontender. EXTREMITITES: Lower extremities wrapped. 1+ edema. Chronic changes noted right lower extremity. Objective - Vital Signs Vital signs: Vital Signs Temp 99.0 F 06/12/24 09:00 Pulse 68 06/12/24 09:00 Resp 16 06/12/24 09:00 BP 109/75 06/12/24 09:00 Pulse Ox 95 06/12/24 09:00 FiO2 Intake & Output 06/11/24 06/12/24 06/12/24 18:59 06:59 18:59 Intake Total 898 1200 236 Output Total 400 1000 Balance 498 200 236 Weight 174.3 kg Intake: Oral 898 1200 236 Output: Urine 400 1000 Other: Voiding Method Bedside Commode Bedside Commode Urinal - Labs CBC & Chem 7: 06/11/24 07:30 06/11/24 07:30 Labs: Abnormal Lab Results - Last 24 Hours (Table) 06/11/24 06/11/24 06/11/24 Range/Units 07:30 11:21 15:03 POC Glucose (mg/dL) 222 H (70-110) mg/dL Iron 9 L (65-175) UG/DL TIBC 190 L (228-460) UG/DL % Saturation 4.74 L (15.00-50.00) Transferrin 136.0 L (204.0-354.0) mg/dL Ferritin 541.0 H (22.0-322.0) ng/mL Urine Protein 3+ H (Negative) Urine Glucose (UA) 4+ H (Negative) Urine Blood Small H (Negative) Urine WBC 8 H (0-5) /hpf Amorphous Sediment Occasional H (None) /hpf Urine Mucus Rare H (None) /hpf Ur Random Sodium (40-220) mmol/L 06/11/24 06/11/24 06/11/24 Range/Units 15:03 16:24 17:14 POC Glucose (mg/dL) 188 H 184 H (70-110) mg/dL Iron (65-175) UG/DL TIBC (228-460) UG/DL % Saturation (15.00-50.00) Transferrin (204.0-354.0) mg/dL Ferritin (22.0-322.0) ng/mL Urine Protein (Negative) Urine Glucose (UA) (Negative) Urine Blood (Negative) Urine WBC (0-5) /hpf Amorphous Sediment (None) /hpf Urine Mucus (None) /hpf Ur Random Sodium <20 L (40-220) mmol/L 06/11/24 06/12/24 06/12/24 Range/Units 20:29 04:11 06:48 POC Glucose (mg/dL) 184 H 165 H 143 H (70-110) mg/dL Iron (65-175) UG/DL TIBC (228-460) UG/DL % Saturation (15.00-50.00) Transferrin (204.0-354.0) mg/dL Ferritin (22.0-322.0) ng/mL Urine Protein (Negative) Urine Glucose (UA) (Negative) Urine Blood (Negative) Urine WBC (0-5) /hpf Amorphous Sediment (None) /hpf Urine Mucus (None) /hpf Ur Random Sodium (40-220) mmol/L Assessment and Plan Plan: Assessment: 1. Acute kidney injury secondary to ATN secondary to diuresis as well as contrast associated acute kidney injury. Patient received IV contrast on June 07, 2024. Creatinine 1.8 on admission and is up to 3.42 yesterday. Kidney ultrasound showed no evidence of hydronephrosis. 2. Chronic kidney disease stage IIIb with baseline creatinine 1.8-2 secondary to diabetic kidney disease. 3. Acute on chronic systolic CHF ejection fraction of 30 to 35%. 4. Diabetes mellitus. 5. Anemia of chronic kidney disease. Iron deficiency noted. 6. Hypervolemic hyponatremia. Improved. Plan: Lasix and Farxiga discontinued June 11, 2024. Continue to hold Cozaar. Add IV iron. Bladder scans have been negative for urinary retention. Continue to monitor renal function and urine output.
[2024-06-12 11:08] LABS: African American GFR (CKD) 16 (>60 ml/min/1.73 sqM); Anion Gap 6 mmol/L; Blood Urea Nitrogen 59 mg/dL (9-20); Calcium 7.8 mg/dL (8.4-10.2); Carbon Dioxide 26 mmol/L (22-30); Chloride 98 mmol/L (98-107); Glucose 150 mg/dL (74-99); Magnesium 2.3 mg/dL (1.6-2.3); Non-African American GFR(CKD) 14 (>60 ml/min/1.73 sqM); Potassium 4.4 mmol/L (3.5-5.1); Sodium 130 mmol/L (137-145)
--- NOTE | 2024-06-12 11:18 | P.PN ---
Subjective HISTORY OF PRESENT ILLNESS: This is a 54-year-old male with a past medical history significant for congestive heart failure, cardiomyopathy, severe LVH, chronic lower extremity edema, peripheral arterial disease, coronary artery disease, V-fib arrest, severe obstructive sleep apnea, chronic kidney disease, diabetes, and obesity. Patient follows in the office with Dr. Stinson. We have been asked to see the patient in consultation for congestive heart failure. Patient examined at the bedside in the emergency room. Patient presented to the hospital with a chief complaint of shortness of breath. Patient states he has been feeling short of breath for the past few days. He denies any chest pain or pressure. Patient was found to be in acute CHF and was started on IV diuretics. He reports improvement in his shortness of breath but states he still is short of breath with exertion. Vital signs are stable. Patient states he is a non-smoker. DIAGNOSTICS: - EKG reveals sinus mechanism with nonspecific ST-T wave changes - Chest xray negative for acute process - Chest CTA: Negative for pulmonary embolism, bronchial wall thickening correl ate for bronchitis, left upper lobe pulmonary nodule, and hepatic steatosis - Laboratory data: WBC 12.9. Hemoglobin 12.3. Platelet count 270. D-dimer 1.34. Sodium 129. Potassium 4.8. BUN 28. Creatinine 1.8. BNP 12,200. Troponin 0.081. 0.087. 0.080. - Current home cardiac medications include Bumex 1 mg twice a day, Lipitor 80 mg at night, aspirin 81 mg daily, losartan 50 mg daily, amlodipine 10 mg daily, carvedilol 35.7 mg twice a day. - Most recent echocardiogram obtained in February 2024 revealed ejection fraction 3035%, inferior and inferior lateral wall hypokinesis, severe LVH, moderate MR, mild TR -Patient underwent Lexiscan stress test in January 2024 revealing severe intensity large sized fixed perfusion defect involving inferior and inferior lateral wall, EF 30% - Cardiac catheterization history: 2016 with stenting to the circumflex in the setting of acute inferior STEMI 06/09/2024 Patient examined this morning at the bedside. Patient currently denies any chest pain or pressure. He denies any shortness of breath at rest. He states he has not been out of bed a whole lot yet to assess his shortness of breath with exertion. He remains on IV Bumex 2 mg every 12 hours. He continues to have lower extremity edema although improving. He is currently on room air. Creatinine today increased to 2.64. Echocardiogram completed revealing ejection fraction 30 to 35% with severe global hypokinesis of left ventricle 06/10/2024 Patient examined this morning at the bedside. Patient currently denies any chest pain or pressure. He reports his breathing this morning feels " so-so". He does report wheezing this morning as well and is inquiring about steroids. Patient's creatinine today is worsened at 3.01. He is maintained on Bumex 1 mg twice a day. Vital signs are stable. Blood pressure 113/73. 06/11/2024 Patient examined this morning at the bedside. Patient reports mild shortness of breath. He denies chest pain or pressure. Patient's creatinine is worsened today at 3.42. Vital signs are stable. Telemetry reveals sinus mechanism. 06/12/2024 Patient examined this morning at the bedside. Patient states he feels tired today. He has not been out of bed yet. He denies chest pain or pressure. He states his breathing feels about the same as yesterday. Patient's creatinine is worsened today at 4.53. His Bumex and Farxiga have been discontinued since yesterday. PHYSICAL EXAM: VITAL SIGNS: Reviewed. GENERAL: Well-developed in no acute distress. HEENT: Head is normocephalic. Pupils are equal, round. Sclerae anicteric. Mucous membranes of the mouth are moist. Neck supple. No JVD or thyromegaly LUNGS: Respirations even and unlabored. Lungs diminished bilaterally HEART: Regular rate and rhythm. S1 and S2 heard. ABDOMEN: Soft. Nondistended. Nontender. EXTREMITIES: Normal range of motion. No clubbing or cyanosis. Peripheral pulses intact. Bilateral lower extremity edema noted. NEUROLOGIC: Awake and alert. Oriented x 3. ASSESSMENT: Shortness of breath Acute on chronic heart failure with reduced EF, 3035% Acute on chronic kidney disease Hyponatremia Elevated troponins, type II DC secondary to oxygen supply/demand mismatch Coronary artery disease with previous stenting to the circumflex, 2016 History of V-fib cardiac arrest, 2016 Peripheral arterial disease Ischemic cardiomyopathy, EF 3035% Chronic lower extremity edema Severe concentric LVH Obstructive sleep apnea Diabetes Morbid obesity: BMI 54.5 PLAN: Bumex and Farxiga have been discontinued Nephrology following. Repeat kidney function in a.m. Continue additional cardiac medications Daily weights, accurate intake and output, and monitoring of kidney function Further recommendations pending patient course Nurse practitioner note has been reviewed by physician. Signing provider agrees with the documented findings, assessment, and plan of care documented by [employer] as a scribe. Objective - Vital Signs Vital signs: Vital Signs Temp 99.0 F 06/12/24 09:00 Pulse 68 06/12/24 09:00 Resp 16 06/12/24 09:00 BP 109/75 06/12/24 09:00 Pulse Ox 95 06/12/24 09:00 FiO2 Intake & Output 06/11/24 06/12/24 06/12/24 18:59 06:59 18:59 Intake Total 898 1200 236 Output Total 400 1000 300 Balance 498 200 -64 Weight 174.3 kg Intake: Oral 898 1200 236 Output: Urine 400 1000 300 Other: Voiding Method Bedside Commode Bedside Commode Urinal # Bowel Movements 1 - Labs CBC & Chem 7: 06/11/24 07:30 06/12/24 10:18 Labs: Abnormal Lab Results - Last 24 Hours (Table) 06/11/24 06/11/24 06/11/24 Range/Units 07:30 11:21 15:03 Sodium (137-145) mmol/L BUN (9-20) mg/dL Creatinine (0.66-1.25) mg/dL Glucose (74-99) mg/dL POC Glucose (mg/dL) 222 H (70-110) mg/dL Calcium (8.4-10.2) mg/dL Iron 9 L (65-175) UG/DL TIBC 190 L (228-460) UG/DL % Saturation 4.74 L (15.00-50.00) Transferrin 136.0 L (204.0-354.0) mg/dL Ferritin 541.0 H (22.0-322.0) ng/mL Urine Protein 3+ H (Negative) Urine Glucose (UA) 4+ H (Negative) Urine Blood Small H (Negative) Urine WBC 8 H (0-5) /hpf Amorphous Sediment Occasional H (None) /hpf Urine Mucus Rare H (None) /hpf Ur Random Sodium (40-220) mmol/L 06/11/24 06/11/24 06/11/24 Range/Units 15:03 16:24 17:14 Sodium (137-145) mmol/L BUN (9-20) mg/dL Creatinine (0.66-1.25) mg/dL Glucose (74-99) mg/dL POC Glucose (mg/dL) 188 H 184 H (70-110) mg/dL Calcium (8.4-10.2) mg/dL Iron (65-175) UG/DL TIBC (228-460) UG/DL % Saturation (15.00-50.00) Transferrin (204.0-354.0) mg/dL Ferritin (22.0-322.0) ng/mL Urine Protein (Negative) Urine Glucose (UA) (Negative) Urine Blood (Negative) Urine WBC (0-5) /hpf Amorphous Sediment (None) /hpf Urine Mucus (None) /hpf Ur Random Sodium <20 L (40-220) mmol/L 06/11/24 06/12/24 06/12/24 Range/Units 20:29 04:11 06:48 Sodium (137-145) mmol/L BUN (9-20) mg/dL Creatinine (0.66-1.25) mg/dL Glucose (74-99) mg/dL POC Glucose (mg/dL) 184 H 165 H 143 H (70-110) mg/dL Calcium (8.4-10.2) mg/dL Iron (65-175) UG/DL TIBC (228-460) UG/DL % Saturation (15.00-50.00) Transferrin (204.0-354.0) mg/dL Ferritin (22.0-322.0) ng/mL Urine Protein (Negative) Urine Glucose (UA) (Negative) Urine Blood (Negative) Urine WBC (0-5) /hpf Amorphous Sediment (None) /hpf Urine Mucus (None) /hpf Ur Random Sodium (40-220) mmol/L 06/12/24 Range/Units 10:18 Sodium 130 L (137-145) mmol/L BUN 59 H (9-20) mg/dL Creatinine 4.53 H (0.66-1.25) mg/dL Glucose 150 H (74-99) mg/dL POC Glucose (mg/dL) (70-110) mg/dL Calcium 7.8 L (8.4-10.2) mg/dL Iron (65-175) UG/DL TIBC (228-460) UG/DL % Saturation (15.00-50.00) Transferrin (204.0-354.0) mg/dL Ferritin (22.0-322.0) ng/mL Urine Protein (Negative) Urine Glucose (UA) (Negative) Urine Blood (Negative) Urine WBC (0-5) /hpf Amorphous Sediment (None) /hpf Urine Mucus (None) /hpf Ur Random Sodium (40-220) mmol/L
[2024-06-12 11:30] LABS: Glucose,Whole Blood 175 mg/dL (70-110)
[2024-06-12 11:44] LABS: Basophils % (A) 0 %; Eosinophils # (A) 0.2 k/uL (0-0.7); Eosinophils % (A) 1 %; HCT 26.6 % (39.0-53.0); Hypochromasia Moderate; Lymphocytes # (A) 0.8 k/uL (1.0-4.8); Lymphocytes % (A) 5 %; MCH 27.5 pg (25.0-35.0); MCHC 30.1 g/dL (31.0-37.0); MCV 91.3 fL (80.0-100.0); Mean Platelet Volume 8.8; Monocytes # (A) 0.6 k/uL (0-1.0); Monocytes % (A) 4 %; Neutrophils # (A) 13.8 k/uL (1.3-7.7); Neutrophils % (A) 89 %; Platelet Count 222 k/uL (150-450); RBC 2.92 m/uL (4.30-5.90); RDW 15.3 % (11.5-15.5); WBC 15.6 k/uL (3.8-10.6)
--- NOTE | 2024-06-12 11:53 | P.PN ---
Subjective Progress Note Date: 06/12/24 54-year-old male with a PMH of systolic CHF (EF 20 to 25%), asthma, COPD, diabetes mellitus, and CKD 3B presents with complaints of shortness of breath. Reports 3 weeks ago he started feeling shortness of breath, and states that this time he went to an urgent care where he was prescribed steroids and azithromycin which he reports he finished antibiotic course and steroids. States after completing this he felt slightly better but still had shortness of breath. Notes during this time he has had to sleep sitting on the edge of the bed, admits to orthopnea. States that shortness of breath gets worse on exertion. Admits to seeing increased swelling in his lower extremities compared to before this all started. Of note during recent admission he was treated for foot ulcers, which she reports he follows consistently with wound care outpatient. Admits to a mild cough but denies any sputum production. Denies fever, chills, headache, chest pain, palpitations, nausea, vomiting, diarrhea, constipation. Labs: WBC 12.9, hemoglobin 12.3, D-dimer 1.34, sodium 129, BUN 28, creatinine 1.8, glucose 254, troponin 0.01, BNP 12,200, and viral respiratory panel all negative. Imaging: - EKG done in the ER showed heart rate of 94 bpm, sinus rhythm, possible left atrial enlargement, and QTc 406. - ER CXR: No acute cardiopulmonary disease/process. - ER CTA chest: No evidence of PE, bronchial wall thickening, left upper lung pulmonary nodule measuring 8 mm, hepatic steatosis - CXR from 06/10 independently interpreted shows improved congestion -Echo left ventricular ejection fraction estimated 30 to 35% with severely increased diastolic volume. Severe global hypokinesis of the left ventricle. 06/08/2024 patient seen and examined at bedside. Patient noted that his shortness of breath is improved and only occurs on exertion such as walking. He denies chest pain, calf tenderness, cough, subjective fevers, chills, nausea vomiting, or diarrhea. WBC 9.9 hemoglobin 10.3 platelet count 2 25,000 sodium 134 potassium 3.8 chloride 101 bicarb 30 BUN 30 creatinine 2.14 glucose 131 calcium 7.9 magnesium 2 AST 46 ALT 13 ALP 75 troponin peaked at 0.08 albumin 2.1. Echo left ventricular ejection fraction estimated 30 to 35% with severely increased diastolic volume. Severe global hypokinesis of the left ventricle. 06/09/2024 patient seen and examined at bedside. Patient noted to have improved shortness of breath better than yesterday. No acute events overnight. WBC 15.3 hemoglobin 10.3 platelet count 204,000 sodium 132 potassium 4.2 chloride 100 bicarb 26 BUN 37 creatinine 2.64 glucose 178 calcium 8 06/10/2024 patient seen and examined at bedside. Patient reported that they still experience shortness of breath on exertion. He also reported that they feel they have a lot of wheezing today. No acute events overnight. WBC 14.6 hemoglobin 9.1 MCV 9.8 platelet count 189,000 sodium 129 potassium 4.3 chloride 100 BUN 44 creatinine 3.01 glucose 196 calcium 7.7. CXR from 06/10 independently interpreted shows improved congestion. Ultrasound of the bladder shows no obstruction. 06/11/2024 patient seen and examined at bedside. Patient reported that he still experiences some shortness of breath. No acute events overnight. WBC 17.9 hemoglobin 9.1 platelet count 09/01/1999 sodium 132 potassium 4.1 chloride 100 BUN 49 creatinine 3.42 glucose 116 calcium 8 06/12/2024 patient seen and examined at bedside. No acute events overnight. No new complaints. Cr significantly worsening. Nephrology on board. Tanya is < 20. Gen: In NAD, non-toxic HEENT: normocephalic, atraumatic, hearing acuity is intant, mucous membranes moist CVS: perfusing all extremities well, bilateral pitting edema, Respiratory: symmetric chest expansion, no accessory muscle use, GI: soft, NTTP, ND, : no suprapubic tenderness, no CVA tenderness MSK/Derm: no rashes, cyanosis Neuro: CN II-XII intact, no motor weakness, Psych: cooperative, euthymic mood, judgment and insight is intact Assessment/Plan: #Acute on chronic hypoxic respiratory failure secondary to CHF exacerbation, improving #Acute on chronic systolic CHF (EF 20 to 25%), NYHA class III, improving #COPD without exacerbation #Hypervolemic hyponatremia, stable -Cardiac monitoring -Fluid restrict to 2 L daily -Daily weights -Strict I's and O's -O2 NC as needed -Ordered DuoNeb 3 ml every 2 hours as needed for shortness of breath or wheezing -Cardiology following -GDMT: - coreg, - losartan (held due to CHAVO) - not on mineralocorticoid, farxiga due to kidney dysfunction #CHAVO on CKD stage IIIb -BUN and creatinine increasing trend. Currently BUN 49 creatinine 4.4 -Baseline creatinine 1.69-2.2 -Continue to monitor daily BMP -Nephrology following. Sharath and Cozaar held -Tanya < 20, potentially pre-renal, consider IVF, will discuss with nephrology #Leukocytosis, reactive -WBC 14.6 today. Patient is afebrile and has not developed any new symptoms. -Will continue to monitor #Anemia of chronic disease, rule out iron deficiency -Iron studies -Monitor with CBC Chronic Conditions: # Chronic right foot wound Patient being seen at home wound care. -Consult wound care #Diabetes mellitus, controlled -Hold home medications -Insulin NovoLog sliding scale ACHS -Accu-Cheks -Continue home NovoLog 6 units subcu 3 times daily -Increase levemir 45 units at bedtime #Hypertension -Hold amlodipine and losartan for now F: Oral intake. Restrict to 2 L fluid E: None N: Heart healthy diet with fluid restriction to 2 L DVT prophylaxis: Heparin 5000 units SQ every 8 hours GI prophylaxis: Home omeprazole 20 mg p.o. daily Dictation was produced using [employer] dictation software. please excuse any grammatical, word or spelling errors. Objective - Vital Signs Vital signs: Vital Signs Temp 99.0 F 06/12/24 09:00 Pulse 74 06/12/24 11:29 Resp 16 06/12/24 09:00 BP 109/75 06/12/24 09:00 Pulse Ox 95 06/12/24 09:00 FiO2 Intake & Output 06/11/24 06/12/24 06/12/24 18:59 06:59 18:59 Intake Total 898 1200 236 Output Total 400 1000 300 Balance 498 200 -64 Weight 174.3 kg Intake: Oral 898 1200 236 Output: Urine 400 1000 300 Other: Voiding Method Bedside Commode Bedside Commode Urinal # Bowel Movements 1 - Labs CBC & Chem 7: 06/11/24 07:30 06/12/24 10:18 Labs: Abnormal Lab Results - Last 24 Hours (Table) 06/11/24 06/11/24 06/11/24 Range/Units 07:30 15:03 15:03 Sodium (137-145) mmol/L BUN (9-20) mg/dL Creatinine (0.66-1.25) mg/dL Glucose (74-99) mg/dL POC Glucose (mg/dL) (70-110) mg/dL Calcium (8.4-10.2) mg/dL Iron 9 L (65-175) UG/DL TIBC 190 L (228-460) UG/DL % Saturation 4.74 L (15.00-50.00) Transferrin 136.0 L (204.0-354.0) mg/dL Ferritin 541.0 H (22.0-322.0) ng/mL Urine Protein 3+ H (Negative) Urine Glucose (UA) 4+ H (Negative) Urine Blood Small H (Negative) Urine WBC 8 H (0-5) /hpf Amorphous Sediment Occasional H (None) /hpf Urine Mucus Rare H (None) /hpf Ur Random Sodium <20 L (40-220) mmol/L 06/11/24 06/11/24 06/11/24 Range/Units 16:24 17:14 20:29 Sodium (137-145) mmol/L BUN (9-20) mg/dL Creatinine (0.66-1.25) mg/dL Glucose (74-99) mg/dL POC Glucose (mg/dL) 188 H 184 H 184 H (70-110) mg/dL Calcium (8.4-10.2) mg/dL Iron (65-175) UG/DL TIBC (228-460) UG/DL % Saturation (15.00-50.00) Transferrin (204.0-354.0) mg/dL Ferritin (22.0-322.0) ng/mL Urine Protein (Negative) Urine Glucose (UA) (Negative) Urine Blood (Negative) Urine WBC (0-5) /hpf Amorphous Sediment (None) /hpf Urine Mucus (None) /hpf Ur Random Sodium (40-220) mmol/L 06/12/24 06/12/24 06/12/24 Range/Units 04:11 06:48 10:18 Sodium 130 L (137-145) mmol/L BUN 59 H (9-20) mg/dL Creatinine 4.53 H (0.66-1.25) mg/dL Glucose 150 H (74-99) mg/dL POC Glucose (mg/dL) 165 H 143 H (70-110) mg/dL Calcium 7.8 L (8.4-10.2) mg/dL Iron (65-175) UG/DL TIBC (228-460) UG/DL % Saturation (15.00-50.00) Transferrin (204.0-354.0) mg/dL Ferritin (22.0-322.0) ng/mL Urine Protein (Negative) Urine Glucose (UA) (Negative) Urine Blood (Negative) Urine WBC (0-5) /hpf Amorphous Sediment (None) /hpf Urine Mucus (None) /hpf Ur Random Sodium (40-220) mmol/L 06/12/24 Range/Units 11:29 Sodium (137-145) mmol/L BUN (9-20) mg/dL Creatinine (0.66-1.25) mg/dL Glucose (74-99) mg/dL POC Glucose (mg/dL) 175 H (70-110) mg/dL Calcium (8.4-10.2) mg/dL Iron (65-175) UG/DL TIBC (228-460) UG/DL % Saturation (15.00-50.00) Transferrin (204.0-354.0) mg/dL Ferritin (22.0-322.0) ng/mL Urine Protein (Negative) Urine Glucose (UA) (Negative) Urine Blood (Negative) Urine WBC (0-5) /hpf Amorphous Sediment (None) /hpf Urine Mucus (None) /hpf Ur Random Sodium (40-220) mmol/L
[2024-06-12] MEDS: SODIUM FERRIC GLUCONAT-SUCROSE 125 MG in SODIUM CHLORIDE 0.9% 100 ML IVPB SCH (12:12)
--- NOTE | 2024-06-12 14:20 | XR ---
EXAMINATION TYPE: XR chest 1V portable DATE OF EXAM: 06/12/2024 2:07 PM COMPARISON: Previous chest radiograph 06/10/2024. CLINICAL INDICATION: Male, 54 years old with history of volume overload; [facility] TECHNIQUE: XR chest 1V portable Frontal view of the chest. FINDINGS: Cardiomegaly and mild pulmonary vascular congestive changes. No sizable pleural effusion. No pneumothorax. No acute osseous abnormality. IMPRESSION: Cardiomegaly and mild pulmonary vascular congestion. [facility], , 06/12/2024 2:18 PM
[2024-06-12 16:38] LABS: Glucose,Whole Blood 247 mg/dL (70-110)
[2024-06-12] MEDS: FUROSEMIDE 10 MG/ML 10 ML VIAL IV STA (18:18)
[2024-06-12 20:49] LABS: Glucose,Whole Blood 226 mg/dL (70-110)
[2024-06-13 07:07] LABS: Glucose,Whole Blood 190 mg/dL (70-110)
[2024-06-13 07:12] LABS: African American GFR (CKD) 12 (>60 ml/min/1.73 sqM); Anion Gap 4 mmol/L; Blood Urea Nitrogen 67 mg/dL (9-20); Calcium 7.7 mg/dL (8.4-10.2); Carbon Dioxide 26 mmol/L (22-30); Chloride 100 mmol/L (98-107); Glucose 174 mg/dL (74-99); Magnesium 2.4 mg/dL (1.6-2.3); Non-African American GFR(CKD) 10 (>60 ml/min/1.73 sqM); Potassium 4.7 mmol/L (3.5-5.1); Sodium 130 mmol/L (137-145)
[2024-06-13 07:19] LABS: Basophils % (A) 0 %; Eosinophils # (A) 0.2 k/uL (0-0.7); Eosinophils % (A) 2 %; HCT 27.8 % (39.0-53.0); HGB 8.4 gm/dL (13.0-17.5); Hypochromasia Marked; Lymphocytes # (A) 0.7 k/uL (1.0-4.8); Lymphocytes % (A) 6 %; MCH 28.1 pg (25.0-35.0); MCHC 30.2 g/dL (31.0-37.0); MCV 92.8 fL (80.0-100.0); Mean Platelet Volume 8.4; Monocytes # (A) 0.4 k/uL (0-1.0); Monocytes % (A) 4 %; Neutrophils # (A) 9.9 k/uL (1.3-7.7); Neutrophils % (A) 87 %; Platelet Count 265 k/uL (150-450); RBC 2.99 m/uL (4.30-5.90); RDW 15.3 % (11.5-15.5); WBC 11.5 k/uL (3.8-10.6)
--- NOTE | 2024-06-13 10:12 | P.PN ---
Subjective Patient is seen in follow-up for acute kidney injury on chronic kidney disease. Renal function worsening the last few days. Appears more short of breath. Received IV Lasix yesterday. Urine output documented as 1400 cc yesterday. Vital signs are stable. General: No acute distress. HEENT: Head exam is unremarkable. On nasal cannula. LUNGS: No audible rhonchi or wheezes. HEART: Rate and Rhythm are regular. ABDOMEN: Obese, nontender. EXTREMITITES: Lower extremities wrapped. 1+ edema. Chronic changes noted right lower extremity. Objective - Vital Signs Vital signs: Vital Signs Temp 98.8 F 06/13/24 03:35 Pulse 84 06/13/24 08:42 Resp 16 06/13/24 03:35 BP 145/82 06/13/24 03:35 Pulse Ox 97 06/13/24 03:35 FiO2 Intake & Output 06/12/24 06/13/24 06/13/24 18:59 06:59 18:59 Intake Total 476 540 Output Total 600 540 Balance -124 0 Weight 182 kg Intake: Oral 476 540 Output: Urine 600 540 Other: Voiding Method Indwelling Catheter Indwelling Catheter # Bowel Movements 1 - Labs CBC & Chem 7: 06/13/24 06:40 06/13/24 06:40 Labs: Abnormal Lab Results - Last 24 Hours (Table) 06/12/24 06/12/24 06/12/24 Range/Units 10:18 10:18 11:29 WBC 15.6 H (3.8-10.6) k/uL RBC 2.92 L (4.30-5.90) m/uL Hgb 8.0 L (13.0-17.5) gm/dL Hct 26.6 L (39.0-53.0) % MCHC 30.1 L (31.0-37.0) g/dL Neutrophils # 13.8 H (1.3-7.7) k/uL Lymphocytes # 0.8 L (1.0-4.8) k/uL Sodium 130 L (137-145) mmol/L BUN 59 H (9-20) mg/dL Creatinine 4.53 H (0.66-1.25) mg/dL Glucose 150 H (74-99) mg/dL POC Glucose (mg/dL) 175 H (70-110) mg/dL Calcium 7.8 L (8.4-10.2) mg/dL Magnesium (1.6-2.3) mg/dL 06/12/24 06/12/24 06/13/24 Range/Units 16:35 20:47 06:40 WBC (3.8-10.6) k/uL RBC (4.30-5.90) m/uL Hgb (13.0-17.5) gm/dL Hct (39.0-53.0) % MCHC (31.0-37.0) g/dL Neutrophils # (1.3-7.7) k/uL Lymphocytes # (1.0-4.8) k/uL Sodium 130 L (137-145) mmol/L BUN 67 H (9-20) mg/dL Creatinine 5.69 H (0.66-1.25) mg/dL Glucose 174 H (74-99) mg/dL POC Glucose (mg/dL) 247 H 226 H (70-110) mg/dL Calcium 7.7 L (8.4-10.2) mg/dL Magnesium 2.4 H (1.6-2.3) mg/dL 06/13/24 06/13/24 Range/Units 06:40 07:05 WBC 11.5 H (3.8-10.6) k/uL RBC 2.99 L (4.30-5.90) m/uL Hgb 8.4 L (13.0-17.5) gm/dL Hct 27.8 L (39.0-53.0) % MCHC 30.2 L (31.0-37.0) g/dL Neutrophils # 9.9 H (1.3-7.7) k/uL Lymphocytes # 0.7 L (1.0-4.8) k/uL Sodium (137-145) mmol/L BUN (9-20) mg/dL Creatinine (0.66-1.25) mg/dL Glucose (74-99) mg/dL POC Glucose (mg/dL) 190 H (70-110) mg/dL Calcium (8.4-10.2) mg/dL Magnesium (1.6-2.3) mg/dL Assessment and Plan Plan: Assessment: 1. Acute kidney injury secondary to ATN secondary to cardiorenal syndrome as well as contrast associated acute kidney injury. Patient received IV contrast on June 07, 2024. Creatinine 1.8 on admission and is up to 5.69 today. Kidney ultrasound showed no evidence of hydronephrosis. 2. Chronic kidney disease stage IIIb with baseline creatinine 1.8-2 secondary to diabetic kidney disease. 3. Acute on chronic systolic CHF ejection fraction of 30 to 35%. 4. Diabetes mellitus. 5. Anemia of chronic kidney disease. Iron deficiency noted. 6. Hypervolemic hyponatremia. Cut the Plan: Status post 80 mg IV Lasix given June 12, 2024. Continue to hold Cozaar. Maintain IV iron. Maintain Hamilton catheter. Strict I's and O's. Continue to monitor renal function and urine output. With worsening renal function, volume overload, initiate renal placement therapy. Patient agreeable. Consult vascular surgery for dialysis catheter placement. Plan for first treatment of hemodialysis today and second treatment tomorrow. Check phosphorus level.
--- NOTE | 2024-06-13 11:28 | P.PN ---
Subjective Progress Note Date: 06/13/24 HISTORY OF PRESENT ILLNESS: This is a 54-year-old male with a past medical history significant for richard estive heart failure, cardiomyopathy, severe LVH, chronic lower extremity edema, peripheral arterial disease, coronary artery disease, V-fib arrest, severe obstructive sleep apnea, chronic kidney disease, diabetes, and obesity. Patient follows in the office with Dr. Stinson. We have been asked to see the patient in consultation for congestive heart failure. Patient examined at the bedside in the emergency room. Patient presented to the hospital with a chief complaint of shortness of breath. Patient states he has been feeling short of breath for the past few days. He denies any chest pain or pressure. Patient was found to be in acute CHF and was started on IV diuretics. He reports improvement in his shortness of breath but states he still is short of breath with exertion. Vital signs are stable. Patient states he is a non-smoker. DIAGNOSTICS: - EKG reveals sinus mechanism with nonspecific ST-T wave changes - Chest xray negative for acute process - Chest CTA: Negative for pulmonary embolism, bronchial wall thickening correlate for bronchitis, left upper lobe pulmonary nodule, and hepatic steatosis - Laboratory data: WBC 12.9. Hemoglobin 12.3. Platelet count 270. D-dimer 1.34. Sodium 129. Potassium 4.8. BUN 28. Creatinine 1.8. BNP 12,200. Troponin 0.081. 0.087. 0.080. - Current home cardiac medications include Bumex 1 mg twice a day, Lipitor 80 mg at night, aspirin 81 mg daily, losartan 50 mg daily, amlodipine 10 mg daily, carvedilol 35.7 mg twice a day. - Most recent echocardiogram obtained in February 2024 revealed ejection fraction 3035%, inferior and inferior lateral wall hypokinesis, severe LVH, moderate MR, mild TR -Patient underwent Lexiscan stress test in January 2024 revealing severe intensity large sized fixed perfusion defect involving inferior and inferior lateral wall, EF 30% - Cardiac catheterization history: 2016 with stenting to the circumflex in the setting of acute inferior STEMI 06/09/2024 Patient examined this morning at the bedside. Patient currently denies any chest pain or pressure. He denies any shortness of breath at rest. He states he has not been out of bed a whole lot yet to assess his shortness of breath with exertion. He remains on IV Bumex 2 mg every 12 hours. He continues to have lower extremity edema although improving. He is currently on room air. Creatinine today increased to 2.64. Echocardiogram completed revealing ejection fraction 30 to 35% with severe global hypokinesis of left ventricle 06/10/2024 Patient examined this morning at the bedside. Patient currently denies any chest pain or pressure. He reports his breathing this morning feels " so-so". He does report wheezing this morning as well and is inquiring about steroids. Patient's creatinine today is worsened at 3.01. He is maintained on Bumex 1 mg twice a day. Vital signs are stable. Blood pressure 113/73. 06/11/2024 Patient examined this morning at the bedside. Patient reports mild shortness of breath. He denies chest pain or pressure. Patient's creatinine is worsened today at 3.42. Vital signs are stable. Telemetry reveals sinus mechanism. 06/12/2024 Patient examined this morning at the bedside. Patient states he feels tired today. He has not been out of bed yet. He denies chest pain or pressure. He states his breathing feels about the same as yesterday. Patient's creatinine is worsened today at 4.53. His Bumex and Farxiga have been discontinued since yesterday. 06/13/24 Patient seen and examined. This morning, patient is very upset because he had a Hamilton catheter placed. He is followed by nephrology. Blood pressure 142/81, heart rate in the 80s, pulse ox 96% on 2 L nasal cannula. Repeat blood work reveals hemoglobin 8.4, sodium 130, BUN 67 creatinine 5.69. Renal function has been worsening each day. Chest x-ray reveals cardiomegaly with mild pulmonary vascular congestion. PHYSICAL EXAM: VITAL SIGNS: Reviewed. GENERAL: Well-developed in no acute distress. HEENT: Head is normocephalic. Pupils are equal, round. Sclerae anicteric. Mucous membranes of the mouth are moist. Neck supple. No JVD or thyromegaly LUNGS: Respirations even and unlabored. Lungs diminished bilaterally HEART: Regular rate and rhythm. S1 and S2 heard. ABDOMEN: Soft. Nondistended. Nontender. EXTREMITIES: Normal range of motion. No clubbing or cyanosis. Peripheral pulses intact. Bilateral lower extremity edema noted. NEUROLOGIC: Awake and alert. Oriented x 3. ASSESSMENT: Shortness of breath Acute on chronic heart failure with reduced EF, 30-35% Acute kidney injury and chronic kidney disease stage III Hyponatremia Elevated troponins, type II [place] secondary to oxygen supply/demand mismatch Coronary artery disease with previous stenting to the circumflex, 2016 History of V-fib cardiac arrest, 2016 Peripheral arterial disease Ischemic cardiomyopathy, EF 30-35% Chronic lower extremity edema Severe concentric LVH Obstructive sleep apnea Diabetes Morbid obesity: BMI 54.5 PLAN: Bumex and Farxiga have been discontinued Nephrology following. Repeat kidney function in a.m. Continue additional cardiac medications: Aspirin 81 mg daily, atorvastatin 80 mg at bedtime Daily weights, accurate intake and output, and monitoring of kidney function Further recommendations pending patient course Nurse practitioner note has been reviewed by physician. Signing provider agrees with the documented findings, assessment, and plan of care documented by CERTIFIED MAINTENANCE WELDER as a scribe. Objective - Vital Signs Vital signs: Vital Signs Temp 98.8 F 06/13/24 03:35 Pulse 85 06/13/24 03:41 Resp 16 06/13/24 03:35 BP 145/82 06/13/24 03:35 Pulse Ox 97 06/13/24 03:35 FiO2 Intake & Output 06/12/24 06/13/24 06/13/24 18:59 06:59 18:59 Intake Total 476 540 Output Total 600 540 Balance -124 0 Weight 182 kg Intake: Oral 476 540 Output: Urine 600 540 Other: Voiding Method Indwelling Catheter Indwelling Catheter # Bowel Movements 1 - Labs CBC & Chem 7: 06/13/24 06:40 06/13/24 06:40 Labs: Abnormal Lab Results - Last 24 Hours (Table) 06/12/24 06/12/24 06/12/24 Range/Units 10:18 10:18 11:29 WBC 15.6 H (3.8-10.6) k/uL RBC 2.92 L (4.30-5.90) m/uL Hgb 8.0 L (13.0-17.5) gm/dL Hct 26.6 L (39.0-53.0) % MCHC 30.1 L (31.0-37.0) g/dL Neutrophils # 13.8 H (1.3-7.7) k/uL Lymphocytes # 0.8 L (1.0-4.8) k/uL Sodium 130 L (137-145) mmol/L BUN 59 H (9-20) mg/dL Creatinine 4.53 H (0.66-1.25) mg/dL Glucose 150 H (74-99) mg/dL POC Glucose (mg/dL) 175 H (70-110) mg/dL Calcium 7.8 L (8.4-10.2) mg/dL Magnesium (1.6-2.3) mg/dL 06/12/24 06/12/24 06/13/24 Range/Units 16:35 20:47 06:40 WBC (3.8-10.6) k/uL RBC (4.30-5.90) m/uL Hgb (13.0-17.5) gm/dL Hct (39.0-53.0) % MCHC (31.0-37.0) g/dL Neutrophils # (1.3-7.7) k/uL Lymphocytes # (1.0-4.8) k/uL Sodium 130 L (137-145) mmol/L BUN 67 H (9-20) mg/dL Creatinine 5.69 H (0.66-1.25) mg/dL Glucose 174 H (74-99) mg/dL POC Glucose (mg/dL) 247 H 226 H (70-110) mg/dL Calcium 7.7 L (8.4-10.2) mg/dL Magnesium 2.4 H (1.6-2.3) mg/dL 06/13/24 06/13/24 Range/Units 06:40 07:05 WBC 11.5 H (3.8-10.6) k/uL RBC 2.99 L (4.30-5.90) m/uL Hgb 8.4 L (13.0-17.5) gm/dL Hct 27.8 L (39.0-53.0) % MCHC 30.2 L (31.0-37.0) g/dL Neutrophils # 9.9 H (1.3-7.7) k/uL Lymphocytes # 0.7 L (1.0-4.8) k/uL Sodium (137-145) mmol/L BUN (9-20) mg/dL Creatinine (0.66-1.25) mg/dL Glucose (74-99) mg/dL POC Glucose (mg/dL) 190 H (70-110) mg/dL Calcium (8.4-10.2) mg/dL Magnesium (1.6-2.3) mg/dL
[2024-06-13 11:57] LABS: Glucose,Whole Blood 238 mg/dL (70-110)
--- NOTE | 2024-06-13 12:23 | P.GSCN ---
History of Present Illness History of present illness: 54-year-old gentleman history of shortness of breath, acute kidney injury function are getting worse history of obesity return diabetes mellitus bilateral lower extremity possible venous hypertension bilateral wrap has been placed consulted for for placement of dialysis catheter. Neck is supple no bruit appreciated Chest few crackles at lung bases. Second sound present abdomen soft nontender Femorals are 1+ bilateral patient has a bilateral lower extremity swelling lower extremity has been wrapped with compression wrap Plan is placement of dialysis catheter risk and complication discussed Past Medical History Past Medical History: Asthma, Heart Failure, COPD, Diabetes Mellitus, Deep Vein Thrombosis (DVT), Myocardial Infarction (ND), Sleep Apnea/CPAP/BIPAP, Vascular Disorder Additional Past Medical History / Comment(s): 02/20/16 ND with cardiac [id number] wore life vest for 7 weeks, 2010 DVT RIGHT leg, bilateral lower leg cellulitis, bilateral varicose veins, PVD, NIDDM type II, BERTRAND with CPAP. UTI Mar 2021, cellulitis with open wounds on bilateral lower legs being treated in wound center pilar bhakta 2020 Last Myocardial Infarction Date:: 02/20/16 History of Any Multi-Drug Resistant Organisms: MRSA Year Discovered:: 2018 MDRO Source:: bilateral legs Past Surgical History: Heart Catheterization With Stent Additional Past Surgical History / Comment(s): circumcision Additional Past Anesthesia/Blood Transfusion Reaction / Comm: Pt has never had anesthesia Date of Last Stent Placement:: 02/20/16 Past Psychological History: No Psychological Hx Reported Additional Psychological History / Comment(s): He is independent. Smoking Status: Former smoker Past Alcohol Use History: None Reported Additional Past Alcohol Use History / Comment(s): Pt states he started smoking at age 18 yrs and quit 02/20/16. Past Drug Use History: None Reported - Past Family History Father Family Medical History: Coronary Artery Disease (CAD), Diabetes Mellitus, Eye Disorder Additional Family Medical History / Comment(s): Bradycardia, blind. Father is in his early 70's. Mother Family Medical History: Coronary Artery Disease (CAD), Diabetes Mellitus Additional Family Medical History / Comment(s): Benign brain tumor. Mother is in her early 70's Medications and Allergies Home Medications Medication Instructions Recorded Confirmed Type Atorvastatin [Lipitor] 80 mg PO HS #30 tab 02/27/16 06/07/24 Rx Ipratropium/Albuterol Sulfate 1 puff INHALATION RT-QID 01/12/19 06/07/24 History [Combivent Respimat Inhaler] Omeprazole 20 mg PO DAILY 03/14/19 06/07/24 History Aspirin EC [Ecotrin Low Dose] 81 mg PO DAILY 10/17/20 06/07/24 History Fluticasone Propion/Salmeterol 1 puff INHALATION RT-BID 01/15/22 06/07/24 History [Wixela 250-50 Inhub] carvediloL 37.5 mg PO BID-W/MEALS 01/15/22 06/07/24 History Bumetanide [BUMEX] 1 mg PO AC-BID 01/23/24 06/07/24 History Ergocalciferol (Vitamin D2) 1,250 mcg PO Q7D 01/23/24 06/07/24 History [Drisdol (50,000 Iu)] Losartan [Cozaar] 50 mg PO DAILY #60 tab 02/01/24 06/07/24 Rx amLODIPine [Norvasc] 10 mg PO DAILY #90 tab 02/01/24 06/07/24 Rx Insulin Aspart [NovoLOG Flexpen] 6 units SQ AC-TID #1 each 04/18/24 06/07/24 Rx Insulin Glargine,Hum.rec.anlog 55 units SQ BID #2 each 04/18/24 06/07/24 Rx [Lantus Solostar Pen] Allergies Allergy/AdvReac Type Severity Reaction Status Date / Time tetracycline Allergy Rash/Hives Verified 06/07/24 13:55 Surgical - Exam Vital Signs Temp Pulse Resp BP Pulse Ox 99 F 100 20 166/102 96 06/07/24 12:01 06/07/24 12:01 06/07/24 12:01 06/07/24 12:01 06/07/24 12:01 Results - Labs 06/13/24 06:40 06/13/24 06:40 Abnormal Lab Results - Last 24 Hours (Table) 06/12/24 06/12/24 06/13/24 Range/Units 16:35 20:47 06:40 WBC (3.8-10.6) k/uL RBC (4.30-5.90) m/uL Hgb (13.0-17.5) gm/dL Hct (39.0-53.0) % MCHC (31.0-37.0) g/dL Neutrophils # (1.3-7.7) k/uL Lymphocytes # (1.0-4.8) k/uL Sodium 130 L (137-145) mmol/L BUN 67 H (9-20) mg/dL Creatinine 5.69 H (0.66-1.25) mg/dL Glucose 174 H (74-99) mg/dL POC Glucose (mg/dL) 247 H 226 H (70-110) mg/dL Calcium 7.7 L (8.4-10.2) mg/dL Magnesium 2.4 H (1.6-2.3) mg/dL 06/13/24 06/13/24 06/13/24 Range/Units 06:40 07:05 11:56 WBC 11.5 H (3.8-10.6) k/uL RBC 2.99 L (4.30-5.90) m/uL Hgb 8.4 L (13.0-17.5) gm/dL Hct 27.8 L (39.0-53.0) % MCHC 30.2 L (31.0-37.0) g/dL Neutrophils # 9.9 H (1.3-7.7) k/uL Lymphocytes # 0.7 L (1.0-4.8) k/uL Sodium (137-145) mmol/L BUN (9-20) mg/dL Creatinine (0.66-1.25) mg/dL Glucose (74-99) mg/dL POC Glucose (mg/dL) 190 H 238 H (70-110) mg/dL Calcium (8.4-10.2) mg/dL Magnesium (1.6-2.3) mg/dL Diabetes panel 06/13/24 Range/Units 06:40 Sodium 130 L (137-145) mmol/L Potassium 4.7 (3.5-5.1) mmol/L Chloride 100 (98-107) mmol/L Carbon Dioxide 26 (22-30) mmol/L BUN 67 H (9-20) mg/dL Creatinine 5.69 H (0.66-1.25) mg/dL Glucose 174 H (74-99) mg/dL Calcium 7.7 L (8.4-10.2) mg/dL Calcium panel 06/13/24 Range/Units 06:40 Calcium 7.7 L (8.4-10.2) mg/dL Pituitary panel 06/13/24 Range/Units 06:40 Sodium 130 L (137-145) mmol/L Potassium 4.7 (3.5-5.1) mmol/L Chloride 100 (98-107) mmol/L Carbon Dioxide 26 (22-30) mmol/L BUN 67 H (9-20) mg/dL Creatinine 5.69 H (0.66-1.25) mg/dL Glucose 174 H (74-99) mg/dL Calcium 7.7 L (8.4-10.2) mg/dL Adrenal panel 06/13/24 Range/Units 06:40 Sodium 130 L (137-145) mmol/L Potassium 4.7 (3.5-5.1) mmol/L Chloride 100 (98-107) mmol/L Carbon Dioxide 26 (22-30) mmol/L BUN 67 H (9-20) mg/dL Creatinine 5.69 H (0.66-1.25) mg/dL Glucose 174 H (74-99) mg/dL Calcium 7.7 L (8.4-10.2) mg/dL
--- NOTE | 2024-06-13 13:05 | P.PN ---
Subjective Progress Note Date: 06/13/24 54-year-old male with a PMH of systolic CHF (EF 20 to 25%), asthma, COPD, diabetes mellitus, and CKD 3B presents with complaints of shortness of breath. Reports 3 weeks ago he started feeling shortness of breath, and states that this time he went to an urgent care where he was prescribed steroids and azithromycin which he reports he finished antibiotic course and steroids. States after completing this he felt slightly better but still had shortness of breath. Notes during this time he has had to sleep sitting on the edge of the bed, admits to orthopnea. States that shortness of breath gets worse on exertion. Admits to seeing increased swelling in his lower extremities compared to before this all started. Of note during recent admission he was treated for foot ulcers, which she reports he follows consistently with wound care outpatient. Admits to a mild cough but denies any sputum production. Denies fever, chills, headache, chest pain, palpitations, nausea, vomiting, diarrhea, constipation. Labs: WBC 12.9, hemoglobin 12.3, D-dimer 1.34, sodium 129, BUN 28, creatinine 1.8, glucose 254, troponin 0.01, BNP 12,200, and viral respiratory panel all negative. Imaging: - EKG done in the ER showed heart rate of 94 bpm, sinus rhythm, possible left atrial enlargement, and QTc 406. - ER CXR: No acute cardiopulmonary disease/process. - ER CTA chest: No evidence of PE, bronchial wall thickening, left upper lung pulmonary nodule measuring 8 mm, hepatic steatosis - CXR from 06/10 independently interpreted shows improved congestion -Echo left ventricular ejection fraction estimated 30 to 35% with severely increased diastolic volume. Severe global hypokinesis of the left ventricle. 06/08/2024 patient seen and examined at bedside. Patient noted that his shortness of breath is improved and only occurs on exertion such as walking. He denies chest pain, calf tenderness, cough, subjective fevers, chills, nausea vomiting, or diarrhea. WBC 9.9 hemoglobin 10.3 platelet count 2 25,000 sodium 134 potassium 3.8 chloride 101 bicarb 30 BUN 30 creatinine 2.14 glucose 131 calcium 7.9 magnesium 2 AST 46 ALT 13 ALP 75 troponin peaked at 0.08 albumin 2.1. Echo left ventricular ejection fraction estimated 30 to 35% with severely increased diastolic volume. Severe global hypokinesis of the left ventricle. 06/09/2024 patient seen and examined at bedside. Patient noted to have improved shortness of breath better than yesterday. No acute events overnight. WBC 15.3 hemoglobin 10.3 platelet count 204,000 sodium 132 potassium 4.2 chloride 100 bicarb 26 BUN 37 creatinine 2.64 glucose 178 calcium 8 06/10/2024 patient seen and examined at bedside. Patient reported that they still experience shortness of breath on exertion. He also reported that they feel they have a lot of wheezing today. No acute events overnight. WBC 14.6 hemoglobin 9.1 MCV 9.8 platelet count 189,000 sodium 129 potassium 4.3 chloride 100 BUN 44 creatinine 3.01 glucose 196 calcium 7.7. CXR from 06/10 independently interpreted shows improved congestion. Ultrasound of the bladder shows no obstruction. 06/11/2024 patient seen and examined at bedside. Patient reported that he still experiences some shortness of breath. No acute events overnight. WBC 17.9 hemoglobin 9.1 platelet count 09/01/1999 sodium 132 potassium 4.1 chloride 100 BUN 49 creatinine 3.42 glucose 116 calcium 8 06/12/2024 patient seen and examined at bedside. No acute events overnight. No new complaints. Cr significantly worsening. Nephrology on board. Tanya is < 20. 06/13/2024 patient seen and examined at bedside. No acute events overnight. Patient has no new complaints. WBC 11.5 hemoglobin 8.4 sodium 130 BUN 67 creatinine 5.69 glucose 174 calcium 7.7 magnesium 2.4 Gen: In NAD, non-toxic, on 2L NC HEENT: normocephalic, atraumatic, hearing acuity is intant, mucous membranes moist CVS: perfusing all extremities well, bilateral pitting edema, Respiratory: symmetric chest expansion, no accessory muscle use, GI: soft, NTTP, ND : no suprapubic tenderness, no CVA tenderness MSK/Derm: no rashes, cyanosis Neuro: CN II-XII intact, no motor weakness, Psych: cooperative, euthymic mood, judgment and insight is intact Assessment/Plan: #CHAVO on CKD stage IIIb secondary to cardiorenal syndrome -BUN and creatinine increasing trend. Currently BUN 67 creatinine 5.69 -Baseline creatinine 1.69-2.2 -Continue to monitor daily BMP -Nephrology following. Farxiga and Cozaar held. Dialysis today -Consulted vascular for placement of temporary dialysis catheter -Tanya < 20, pre-renal, #Acute on chronic hypoxic respiratory failure secondary to CHF exacerbation, improving #Acute on chronic systolic CHF (EF 20 to 25%), NYHA class III, improving #COPD without exacerbation #Hypervolemic hyponatremia, stable -Cardiac monitoring -Fluid restrict to 2 L daily -Daily weights -Strict I's and O's -O2 NC as needed -Ordered DuoNeb 3 ml every 2 hours as needed for shortness of breath or wheezing -Hemodialysis today for diuresis -Cardiology following -GDMT: - coreg - losartan (held due to CHAVO) - not on mineralocorticoid, farxiga due to kidney dysfunction #Leukocytosis, reactive -WBC 14.6 today. Patient is afebrile and has not developed any new symptoms. -Will continue to monitor #Anemia of chronic disease superimposed with iron deficiency, stable -Iron 9 TIBC 1 9 8% saturation 4.74 transferrin 136 ferritin 541 Chronic Conditions: # Chronic right foot wound Patient being seen at home wound care. -Consult wound care #Diabetes mellitus, controlled -Hold home medications -Insulin NovoLog sliding scale ACHS -Accu-Cheks -Continue home NovoLog 6 units subcu 3 times daily -Increase levemir 45 units at bedtime #Hypertension -Hold amlodipine and losartan for now F: Oral intake. Restrict to 2 L fluid E: None N: Heart healthy diet with fluid restriction to 2 L DVT prophylaxis: Heparin 5000 units SQ every 8 hours GI prophylaxis: Home omeprazole 20 mg p.o. daily I saw and evaluated the patient during the fernández and critical portions of this encounter, and discussed the case in detail with the resident author of this note, I agree with the Assessment and Plan, and my changes, if any, are highlighted in blue. Objective - Vital Signs Vital signs: Vital Signs Temp 98.8 F 06/13/24 03:35 Pulse 84 06/13/24 08:42 Resp 16 06/13/24 03:35 BP 145/82 06/13/24 03:35 Pulse Ox 97 06/13/24 03:35 FiO2 Intake & Output 06/12/24 06/13/24 06/13/24 18:59 06:59 18:59 Intake Total 476 540 Output Total 600 540 Balance -124 0 Weight 182 kg Intake: Oral 476 540 Output: Urine 600 540 Other: Voiding Method Indwelling Catheter Indwelling Catheter # Bowel Movements 1 - Labs CBC & Chem 7: 06/13/24 06:40 06/13/24 06:40 Labs: Abnormal Lab Results - Last 24 Hours (Table) 06/12/24 06/12/24 06/12/24 Range/Units 10:18 10:18 11:29 WBC 15.6 H (3.8-10.6) k/uL RBC 2.92 L (4.30-5.90) m/uL Hgb 8.0 L (13.0-17.5) gm/dL Hct 26.6 L (39.0-53.0) % MCHC 30.1 L (31.0-37.0) g/dL Neutrophils # 13.8 H (1.3-7.7) k/uL Lymphocytes # 0.8 L (1.0-4.8) k/uL Sodium 130 L (137-145) mmol/L BUN 59 H (9-20) mg/dL Creatinine 4.53 H (0.66-1.25) mg/dL Glucose 150 H (74-99) mg/dL POC Glucose (mg/dL) 175 H (70-110) mg/dL Calcium 7.8 L (8.4-10.2) mg/dL Magnesium (1.6-2.3) mg/dL 06/12/24 06/12/24 06/13/24 Range/Units 16:35 20:47 06:40 WBC (3.8-10.6) k/uL RBC (4.30-5.90) m/uL Hgb (13.0-17.5) gm/dL Hct (39.0-53.0) % MCHC (31.0-37.0) g/dL Neutrophils # (1.3-7.7) k/uL Lymphocytes # (1.0-4.8) k/uL Sodium 130 L (137-145) mmol/L BUN 67 H (9-20) mg/dL Creatinine 5.69 H (0.66-1.25) mg/dL Glucose 174 H (74-99) mg/dL POC Glucose (mg/dL) 247 H 226 H (70-110) mg/dL Calcium 7.7 L (8.4-10.2) mg/dL Magnesium 2.4 H (1.6-2.3) mg/dL 06/13/24 06/13/24 Range/Units 06:40 07:05 WBC 11.5 H (3.8-10.6) k/uL RBC 2.99 L (4.30-5.90) m/uL Hgb 8.4 L (13.0-17.5) gm/dL Hct 27.8 L (39.0-53.0) % MCHC 30.2 L (31.0-37.0) g/dL Neutrophils # 9.9 H (1.3-7.7) k/uL Lymphocytes # 0.7 L (1.0-4.8) k/uL Sodium (137-145) mmol/L BUN (9-20) mg/dL Creatinine (0.66-1.25) mg/dL Glucose (74-99) mg/dL POC Glucose (mg/dL) 190 H (70-110) mg/dL Calcium (8.4-10.2) mg/dL Magnesium (1.6-2.3) mg/dL
[2024-06-13] MEDS: MIDAZOLAM 2 MG/2 ML VIAL IVP ONE (13:32)
[2024-06-13] MEDS: LIDOCAINE 1% INJ 10MG/ML (20 ML MDV) SQ ONE ×2 (13:35)
--- NOTE | 2024-06-13 14:01 | P.PCN ---
Description of Procedure: Preop diagnosis is acute chronic renal failure Postop the same Procedure right IJ catheter placed ultrasound-guided right jugular approach patient brought to the [employer] [facility] right side of the neck and chest was prepped and draped in Prestel manner 1% lidocaine for infiltrated IV sedation ultrasound- guided micropuncture introduced right jugular vein micropuncture guide was passed. Then 4 English dilator advanced up the guidewire. Passed regular guidewire which was parked at the inferior vena cava. Dilator was advanced on the top of the guidewire then replaced size 18 catheter on the top of guidewire tip with catheter superior vena cava and atrial junction flushed with heparin saline hep-locked secured with 3-0 nylon patient tarted the procedure well recommend x-ray of the chest patient can go for dialysis
--- NOTE | 2024-06-13 14:59 | XR ---
EXAMINATION TYPE: XR chest 1V portable DATE OF EXAM: 06/13/2024 COMPARISON: 06/12/2024 CLINICAL INDICATION: Male, 54 years old with history of R/O Pnemo, dialysis cath insertion; TECHNIQUE: Single frontal view of the chest is obtained. FINDINGS: There has been interval insertion of a right jugular central venous catheter tip which is significant respiratory junction. There is no pneumothorax. The cardiac silhouette is moderately to markedly enlarged. The pulmonary vasculature appears mildly c ongested. There is no airspace consolidation. No pleural effusion. The osseous structures are intact. IMPRESSION: 1. Jugular central venous catheter tip in the SVC/right junction. 2. No pneumothorax. 3. moderate to marked cardiomegaly with mild pulmonary vascular congestion [facility], , 06/13/2024 2:57 PM
--- NOTE | 2024-06-13 15:49 | IR ---
EXAMINATION TYPE: IR cvc insert non tunneled DATE OF EXAM: 06/13/2024 2:20 PM COMPARISON: Pre Operative Images if available both CT/MRI or plain film CLINICAL INDICATION: Male, 54 years old with history of Hemodialysis Catheter, 0.5min, [id number]; TECHNIQUE: IR cvc insert non tunneled, multiple fluoroscopic images provided for procedure. Total fluoroscopy time: 0.5 seconds Total submitted images to PACS: 51 DAP: 481.20 mGym2 Gycm2 uGym2 cGycm2 or equivalent. FINDINGS: IMPRESSION: 1. Report was generated for administrative purposes only. 2. Please see the operative/procedural note for further details. [facility], , 06/13/2024 3:46 PM
[2024-06-13 17:28] LABS: Glucose,Whole Blood 151 mg/dL (70-110)
[2024-06-13 20:17] LABS: Glucose,Whole Blood 179 mg/dL (70-110)
[2024-06-13 22:44] LABS: Hepatitis B Surface AB- Quant 3.5 mIU/mL
[2024-06-13 22:47] LABS: Hepatitis B Surface Antigen Nonreactive (Nonreactive)
[2024-06-14 06:17] LABS: Glucose,Whole Blood 228 mg/dL (70-110)
[2024-06-14 07:25] LABS: Basophils % (A) 0 %; Eosinophils # (A) 0.2 k/uL (0-0.7); Eosinophils % (A) 2 %; HCT 27.4 % (39.0-53.0); HGB 8.3 gm/dL (13.0-17.5); Hypochromasia Marked; Lymphocytes # (A) 0.7 k/uL (1.0-4.8); Lymphocytes % (A) 6 %; MCH 27.6 pg (25.0-35.0); MCHC 30.1 g/dL (31.0-37.0); MCV 91.7 fL (80.0-100.0); Monocytes # (A) 0.5 k/uL (0-1.0); Monocytes % (A) 5 %; Neutrophils # (A) 9.2 k/uL (1.3-7.7); Neutrophils % (A) 85 %; Platelet Count 268 k/uL (150-450); RBC 2.99 m/uL (4.30-5.90); RDW 15.3 % (11.5-15.5); WBC 10.8 k/uL (3.8-10.6)
[2024-06-14 08:00] LABS: African American GFR (CKD) 13 (>60 ml/min/1.73 sqM); Anion Gap 7 mmol/L; Blood Urea Nitrogen 60 mg/dL (9-20); Calcium 7.8 mg/dL (8.4-10.2); Carbon Dioxide 26 mmol/L (22-30); Chloride 96 mmol/L (98-107); Glucose 188 mg/dL (74-99); Magnesium 2.3 mg/dL (1.6-2.3); Non-African American GFR(CKD) 11 (>60 ml/min/1.73 sqM); Potassium 4.5 mmol/L (3.5-5.1); Sodium 129 mmol/L (137-145)
--- NOTE | 2024-06-14 10:16 | P.PN ---
Subjective Patient is seen in follow-up for acute kidney injury on chronic kidney disease. Started on hemodialysis June 13, 2024. Tolerated 1.5 L ultrafiltration yesterday. Nonoliguric. Vital signs are stable. General: No acute distress. HEENT: Head exam is unremarkable. On nasal cannula. LUNGS: No audible rhonchi or wheezes. HEART: Rate and Rhythm are regular. ABDOMEN: Obese, nontender. EXTREMITITES: Lower extremities wrapped. 1+ edema. Chronic changes noted right lower extremity. Objective - Vital Signs Vital signs: Vital Signs Temp 99 F 06/14/24 08:00 Pulse 80 06/14/24 09:18 Resp 22 06/14/24 08:00 BP 136/79 06/14/24 08:00 Pulse Ox 96 06/14/24 08:00 FiO2 Intake & Output 06/13/24 06/14/24 06/14/24 18:59 06:59 18:59 Intake Total 830 480 358 Output Total 3500 800 125 Balance -2670 -320 233 Weight 184 kg Intake: Oral 330 480 358 Hemodialysis 500 Output: Urine 800 125 Hemodialysis 2000 Hemodialysis Net Amount 1500 Other: Voiding Method Indwelling Catheter Indwelling Catheter - Labs CBC & Chem 7: 06/14/24 06:31 06/14/24 06:31 Labs: Abnormal Lab Results - Last 24 Hours (Table) 06/13/24 06/13/24 06/13/24 Range/Units 11:56 17:27 20:15 WBC (3.8-10.6) k/uL RBC (4.30-5.90) m/uL Hgb (13.0-17.5) gm/dL Hct (39.0-53.0) % MCHC (31.0-37.0) g/dL Neutrophils # (1.3-7.7) k/uL Lymphocytes # (1.0-4.8) k/uL Sodium (137-145) mmol/L Chloride (98-107) mmol/L BUN (9-20) mg/dL Creatinine (0.66-1.25) mg/dL Glucose (74-99) mg/dL POC Glucose (mg/dL) 238 H 151 H 179 H (70-110) mg/dL Calcium (8.4-10.2) mg/dL Phosphorus (2.5-4.5) mg/dL 06/14/24 06/14/24 06/14/24 Range/Units 06:15 06:31 06:31 WBC 10.8 H (3.8-10.6) k/uL RBC 2.99 L (4.30-5.90) m/uL Hgb 8.3 L (13.0-17.5) gm/dL Hct 27.4 L (39.0-53.0) % MCHC 30.1 L (31.0-37.0) g/dL Neutrophils # 9.2 H (1.3-7.7) k/uL Lymphocytes # 0.7 L (1.0-4.8) k/uL Sodium 129 L (137-145) mmol/L Chloride 96 L (98-107) mmol/L BUN 60 H (9-20) mg/dL Creatinine 5.50 H (0.66-1.25) mg/dL Glucose 188 H (74-99) mg/dL POC Glucose (mg/dL) 228 H (70-110) mg/dL Calcium 7.8 L (8.4-10.2) mg/dL Phosphorus 8.0 H (2.5-4.5) mg/dL Assessment and Plan Plan: Assessment: 1. Acute kidney injury secondary to ATN secondary to cardiorenal syndrome as well as contrast associated acute kidney injury. Patient received IV contrast on June 07, 2024. Creatinine 1.8 on admission and is up to 5.69 dated June 13, 2024. Kidney ultrasound showed no evidence of hydronephrosis. Started on hemodialysis June 13, 2024 via temporary right IJ catheter. 2. Chronic kidney disease stage IIIb with baseline creatinine 1.8-2 secondary to diabetic kidney disease. 3. Acute on chronic systolic CHF ejection fraction of 30 to 35%. 4. Diabetes mellitus. 5. Anemia of chronic kidney disease. Iron deficiency noted. 6. Hypervolemic hyponatremia. 7. Volume overload. 8. Chronic kidney disease mineral bone disease. Phosphorus level 8.0 dated June 14, 2024. Plan: Second treatment of hemodialysis today and third treatment tomorrow. Add IV Lasix 60 mg twice daily. Continue to hold Cozaar. Maintain IV iron. Add Aranesp. Maintain Hamilton catheter. Strict I's and O's. Continue to monitor renal function and urine output. Monitor for renal recovery. Add PhosLo.
[2024-06-14] MEDS: FUROSEMIDE 10 MG/ML 10 ML VIAL IV SCH (10:20)
--- NOTE | 2024-06-14 10:41 | P.PN ---
Subjective Progress Note Date: 06/14/24 HISTORY OF PRESENT ILLNESS: This is a 54-year-old male with a past medical history significant for richard estive heart failure, cardiomyopathy, severe LVH, chronic lower extremity edema, peripheral arterial disease, coronary artery disease, V-fib arrest, severe obstructive sleep apnea, chronic kidney disease, diabetes, and obesity. Patient follows in the office with Dr. Stinson. We have been asked to see the patient in consultation for congestive heart failure. Patient examined at the bedside in the emergency room. Patient presented to the hospital with a chief complaint of shortness of breath. Patient states he has been feeling short of breath for the past few days. He denies any chest pain or pressure. Patient was found to be in acute CHF and was started on IV diuretics. He reports improvement in his shortness of breath but states he still is short of breath with exertion. Vital signs are stable. Patient states he is a non-smoker. DIAGNOSTICS: - EKG reveals sinus mechanism with nonspecific ST-T wave changes - Chest xray negative for acute process - Chest CTA: Negative for pulmonary embolism, bronchial wall thickening correlate for bronchitis, left upper lobe pulmonary nodule, and hepatic steatosis - Laboratory data: WBC 12.9. Hemoglobin 12.3. Platelet count 270. D-dimer 1.34. Sodium 129. Potassium 4.8. BUN 28. Creatinine 1.8. BNP 12,200. Troponin 0.081. 0.087. 0.080. - Current home cardiac medications include Bumex 1 mg twice a day, Lipitor 80 mg at night, aspirin 81 mg daily, losartan 50 mg daily, amlodipine 10 mg daily, carvedilol 35.7 mg twice a day. - Most recent echocardiogram obtained in February 2024 revealed ejection fraction 3035%, inferior and inferior lateral wall hypokinesis, severe LVH, moderate MR, mild TR -Patient underwent Lexiscan stress test in January 2024 revealing severe intensity large sized fixed perfusion defect involving inferior and inferior lateral wall, EF 30% - Cardiac catheterization history: 2016 with stenting to the circumflex in the setting of acute inferior STEMI 06/09/2024 Patient examined this morning at the bedside. Patient currently denies any chest pain or pressure. He denies any shortness of breath at rest. He states he has not been out of bed a whole lot yet to assess his shortness of breath with exertion. He remains on IV Bumex 2 mg every 12 hours. He continues to have lower extremity edema although improving. He is currently on room air. Creatinine today increased to 2.64. Echocardiogram completed revealing ejection fraction 30 to 35% with severe global hypokinesis of left ventricle 06/10/2024 Patient examined this morning at the bedside. Patient currently denies any chest pain or pressure. He reports his breathing this morning feels " so-so". He does report wheezing this morning as well and is inquiring about steroids. Patient's creatinine today is worsened at 3.01. He is maintained on Bumex 1 mg twice a day. Vital signs are stable. Blood pressure 113/73. 06/11/2024 Patient examined this morning at the bedside. Patient reports mild shortness of breath. He denies chest pain or pressure. Patient's creatinine is worsened today at 3.42. Vital signs are stable. Telemetry reveals sinus mechanism. 06/12/2024 Patient examined this morning at the bedside. Patient states he feels tired today. He has not been out of bed yet. He denies chest pain or pressure. He states his breathing feels about the same as yesterday. Patient's creatinine is worsened today at 4.53. His Bumex and Farxiga have been discontinued since yesterday. 06/13/24 Patient seen and examined. This morning, patient is very upset because he had a Hamilton catheter placed. He is followed by nephrology. Blood pressure 142/81, heart rate in the 80s, pulse ox 96% on 2 L nasal cannula. Repeat blood work reveals hemoglobin 8.4, sodium 130, BUN 67 creatinine 5.69. Renal function has been worsening each day. Chest x-ray reveals cardiomegaly with mild pulmonary vascular congestion. 06/14/24 Patient seen and examined. Due to worsening renal function, a right IJ catheter was placed by Dr. Sanchez and patient started hemodialysis yesterday. He is scheduled for repeat dialysis today. Patient denies having any chest pain. No palpitations. Blood pressure 136/79, heart rate in the 60s and 70s, pulse ox 96% on 3 L nasal cannula. Repeat blood work reveals hemoglobin of 8.3, sodium 129, potassium 4.5, BUN 68 and creatinine 5.5. Chest x-ray reveals catheter tip in SVC right junction. No pneumothorax. Cardiomegaly with mild pulmonary vascular congestion. PHYSICAL EXAM: VITAL SIGNS: Reviewed. GENERAL: Well-developed in no acute distress. HEENT: Head is normocephalic. Pupils are equal, round. Sclerae anicteric. Mucous membranes of the mouth are moist. Neck supple. No JVD or thyromegaly LUNGS: Respirations even and unlabored. Lungs diminished bilaterally HEART: Regular rate and rhythm. S1 and S2 heard. ABDOMEN: Soft. Nondistended. Nontender. EXTREMITIES: Normal range of motion. No clubbing or cyanosis. Peripheral pulses intact. Bilateral lower extremity edema noted. NEUROLOGIC: Awake and alert. Oriented x 3. ASSESSMENT: Shortness of breath Acute on chronic heart failure with reduced EF, 30-35% Acute kidney injury and chronic kidney disease stage III Hyponatremia Elevated troponins, type II MN secondary to oxygen supply/demand mismatch Coronary artery disease with previous stenting to the circumflex, 2016 History of V-fib cardiac arrest, 2016 Peripheral arterial disease Ischemic cardiomyopathy, EF 30-35% Chronic lower extremity edema Severe concentric LVH Obstructive sleep apnea Diabetes Morbid obesity: BMI 54.5 PLAN: Bumex and Farxiga have been discontinued Nephrology following and patient started on hemodialysis 06/13. Continue cardiac medications: Aspirin 81 mg daily, atorvastatin 80 mg at bedtime, Coreg 37.5 mg twice daily Nephrology started patient on Lasix 60 mg every 12 hours Daily weights, accurate intake and output, and monitoring of kidney function Further recommendations pending patient course Nurse practitioner note has been reviewed by physician. Signing provider agrees with the documented findings, assessment, and plan of care documented by [facility] [employer]IVER as a scribe. Objective - Vital Signs Vital signs: Vital Signs Temp 99.5 F 06/14/24 05:00 Pulse 71 06/14/24 05:00 Resp 20 06/14/24 05:00 BP 114/68 06/14/24 05:00 Pulse Ox 97 06/14/24 05:00 FiO2 Intake & Output 06/13/24 06/14/24 06/14/24 18:59 06:59 18:59 Intake Total 830 480 Output Total 3500 800 Balance -2670 -320 Weight 184 kg Intake: Oral 330 480 Hemodialysis 500 Output: Urine 800 Hemodialysis 2000 Hemodialysis Net Amount 1500 Other: Voiding Method Indwelling Catheter - Labs CBC & Chem 7: 06/14/24 06:31 06/14/24 06:31 Labs: Abnormal Lab Results - Last 24 Hours (Table) 06/13/24 06/13/24 06/13/24 Range/Units 11:56 17:27 20:15 WBC (3.8-10.6) k/uL RBC (4.30-5.90) m/uL Hgb (13.0-17.5) gm/dL Hct (39.0-53.0) % MCHC (31.0-37.0) g/dL Neutrophils # (1.3-7.7) k/uL Lymphocytes # (1.0-4.8) k/uL Sodium (137-145) mmol/L Chloride (98-107) mmol/L BUN (9-20) mg/dL Creatinine (0.66-1.25) mg/dL Glucose (74-99) mg/dL POC Glucose (mg/dL) 238 H 151 H 179 H (70-110) mg/dL Calcium (8.4-10.2) mg/dL Phosphorus (2.5-4.5) mg/dL 06/14/24 06/14/24 06/14/24 Range/Units 06:15 06:31 06:31 WBC 10.8 H (3.8-10.6) k/uL RBC 2.99 L (4.30-5.90) m/uL Hgb 8.3 L (13.0-17.5) gm/dL Hct 27.4 L (39.0-53.0) % MCHC 30.1 L (31.0-37.0) g/dL Neutrophils # 9.2 H (1.3-7.7) k/uL Lymphocytes # 0.7 L (1.0-4.8) k/uL Sodium 129 L (137-145) mmol/L Chloride 96 L (98-107) mmol/L BUN 60 H (9-20) mg/dL Creatinine 5.50 H (0.66-1.25) mg/dL Glucose 188 H (74-99) mg/dL POC Glucose (mg/dL) 228 H (70-110) mg/dL Calcium 7.8 L (8.4-10.2) mg/dL Phosphorus 8.0 H (2.5-4.5) mg/dL
--- NOTE | 2024-06-14 11:50 | P.PN ---
Subjective Progress Note Date: 06/14/24 54-year-old male with a PMH of systolic CHF (EF 20 to 25%), asthma, COPD, diabetes mellitus, and CKD 3B presents with complaints of shortness of breath. Reports 3 weeks ago he started feeling shortness of breath, and states that this time he went to an urgent care where he was prescribed steroids and azithromycin which he reports he finished antibiotic course and steroids. States after completing this he felt slightly better but still had shortness of breath. Notes during this time he has had to sleep sitting on the edge of the bed, admits to orthopnea. States that shortness of breath gets worse on exertion. Admits to seeing increased swelling in his lower extremities compared to before this all started. Of note during recent admission he was treated for foot ulcers, which she reports he follows consistently with wound care outpatient. Admits to a mild cough but denies any sputum production. Denies fever, chills, headache, chest pain, palpitations, nausea, vomiting, diarrhea, constipation. Labs: WBC 12.9, hemoglobin 12.3, D-dimer 1.34, sodium 129, BUN 28, creatinine 1.8, glucose 254, troponin 0.01, BNP 12,200, and viral respiratory panel all negative. Imaging: - EKG done in the ER showed heart rate of 94 bpm, sinus rhythm, possible left atrial enlargement, and QTc 406. - ER CXR: No acute cardiopulmonary disease/process. - ER CTA chest: No evidence of PE, bronchial wall thickening, left upper lung pulmonary nodule measuring 8 mm, hepatic steatosis - CXR from 06/10 independently interpreted shows improved congestion -Echo left ventricular ejection fraction estimated 30 to 35% with severely increased diastolic volume. Severe global hypokinesis of the left ventricle. 06/08/2024 patient seen and examined at bedside. Patient noted that his shortness of breath is improved and only occurs on exertion such as walking. He denies chest pain, calf tenderness, cough, subjective fevers, chills, nausea vomiting, or diarrhea. WBC 9.9 hemoglobin 10.3 platelet count 2 25,000 sodium 134 potassium 3.8 chloride 101 bicarb 30 BUN 30 creatinine 2.14 glucose 131 calcium 7.9 magnesium 2 AST 46 ALT 13 ALP 75 troponin peaked at 0.08 albumin 2.1. Echo left ventricular ejection fraction estimated 30 to 35% with severely increased diastolic volume. Severe global hypokinesis of the left ventricle. 06/09/2024 patient seen and examined at bedside. Patient noted to have improved shortness of breath better than yesterday. No acute events overnight. WBC 15.3 hemoglobin 10.3 platelet count 204,000 sodium 132 potassium 4.2 chloride 100 bicarb 26 BUN 37 creatinine 2.64 glucose 178 calcium 8 06/10/2024 patient seen and examined at bedside. Patient reported that they still experience shortness of breath on exertion. He also reported that they feel they have a lot of wheezing today. No acute events overnight. WBC 14.6 hemoglobin 9.1 MCV 9.8 platelet count 189,000 sodium 129 potassium 4.3 chloride 100 BUN 44 creatinine 3.01 glucose 196 calcium 7.7. CXR from 06/10 independently interpreted shows improved congestion. Ultrasound of the bladder shows no obstruction. 06/11/2024 patient seen and examined at bedside. Patient reported that he still experiences some shortness of breath. No acute events overnight. WBC 17.9 hemoglobin 9.1 platelet count 09/01/1999 sodium 132 potassium 4.1 chloride 100 BUN 49 creatinine 3.42 glucose 116 calcium 8 06/12/2024 patient seen and examined at bedside. No acute events overnight. No new complaints. Cr significantly worsening. Nephrology on board. Tanya is < 20. 06/13/2024 patient seen and examined at bedside. No acute events overnight. Patient has no new complaints. WBC 11.5 hemoglobin 8.4 sodium 130 BUN 67 creatinine 5.69 glucose 174 calcium 7.7 magnesium 2.4 06/14/2024 patient seen and examined at bedside. No acute events overnight. Patient had no new complaints. WBC 10.8 hemoglobin 8.3 platelet count 268,000 sodium 129 potassium 4.5 chloride 96 BUN 16 creatinine 5.5 glucose 188 calcium 7.8 phosphorus 8 magnesium 2.3 Gen: In NAD, non-toxic, on 2L NC HEENT: normocephalic, atraumatic, hearing acuity is intant, mucous membranes moist CVS: perfusing all extremities well, bilateral pitting edema Respiratory: symmetric chest expansion, no accessory muscle use GI: soft, NTTP, ND : no suprapubic tenderness, no CVA tenderness MSK/Derm: no rashes, cyanosis, chronic wound wrapped in bandaging (ulcers), right foot with no erythema or noticeable discharge appreciated, pedal edema appreciated, trace to 1+ pitting edema up to the mid calf noted on bilateral lower extremities Neuro: CN II-XII intact, no motor weakness Psych: cooperative, euthymic mood, judgment and insight is intact Assessment/Plan: #CHAVO on CKD stage IIIb secondary to cardiorenal syndrome -BUN and creatinine increasing trend. Currently BUN 16 creatinine 5.5 -Baseline creatinine 1.69-2.2 -Continue to monitor daily BMP -Nephrology following. Farxiga and Cozaar held. Dialysis today and tomorrow. -consider IVF, will discuss with nephrology #Acute on chronic hypoxic respiratory failure secondary to CHF exacerbation, improving #Acute on chronic systolic CHF (EF 20 to 25%), NYHA class III, improving #COPD without exacerbation #Hypervolemic hyponatremia, stable -Cardiac monitoring -Fluid restrict to 2 L daily -Daily weights -Strict I's and O's -O2 NC as needed -Ordered DuoNeb 3 ml every 2 hours as needed for shortness of breath or wheezing -Hemodialysis today and tomorrow for diuresis -Cardiology following -GDMT: - coreg - losartan held due to CHAVO - not on mineralocorticoid, farxiga due to kidney dysfunction #Leukocytosis, reactive -WBC 14.6 today. Patient is afebrile and has not developed any new symptoms. -Will continue to monitor #Anemia of chronic disease superimposed with iron deficiency, stable -Iron 9 TIBC 1 9 8% saturation 4.74 transferrin 136 ferritin 541 -Ferrlecit 125 mg IVPB daily Chronic Conditions: # Chronic right foot wound Patient being seen at home wound care. -Consult wound care #Diabetes mellitus, controlled -Hold home medications -Insulin NovoLog sliding scale ACHS -Accu-Cheks -Continue home NovoLog 6 units subcu 3 times daily -Increase levemir 45 units at bedtime #Hypertension -Hold amlodipine and losartan for now F: Oral intake. Restrict to 2 L fluid E: None N: Heart healthy diet with fluid restriction to 2 L DVT prophylaxis: Heparin 5000 units SQ every 8 hours GI prophylaxis: Home omeprazole 20 mg p.o. daily I saw and evaluated the patient during the fernández and critical portions of this encounter, and discussed the case in detail with the resident author of this note, I agree with the Assessment and Plan, and my changes, if any, are noted below. 810 cc urine output over the past 24H. Started on HD yesterday. Discussed with Dr. Solano, continue HD today and tomorrow while maintaining Lasix 60 mg IV BID. May need HD on discharge. Objective - Vital Signs Vital signs: Vital Signs Temp 99 F 06/14/24 08:00 Pulse 80 06/14/24 09:18 Resp 22 06/14/24 08:00 BP 136/79 06/14/24 08:00 Pulse Ox 96 06/14/24 08:00 FiO2 Intake & Output 06/13/24 06/14/24 06/14/24 18:59 06:59 18:59 Intake Total 830 480 358 Output Total 3500 800 125 Balance -2670 -320 233 Weight 184 kg Intake: Oral 330 480 358 Hemodialysis 500 Output: Urine 800 125 Hemodialysis 2000 Hemodialysis Net Amount 1500 Other: Voiding Method Indwelling Catheter Indwelling Catheter - Labs CBC & Chem 7: 06/14/24 06:31 06/14/24 06:31 Labs: Abnormal Lab Results - Last 24 Hours (Table) 06/13/24 06/13/24 06/13/24 Range/Units 11:56 17:27 20:15 WBC (3.8-10.6) k/uL RBC (4.30-5.90) m/uL Hgb (13.0-17.5) gm/dL Hct (39.0-53.0) % MCHC (31.0-37.0) g/dL Neutrophils # (1.3-7.7) k/uL Lymphocytes # (1.0-4.8) k/uL Sodium (137-145) mmol/L Chloride (98-107) mmol/L BUN (9-20) mg/dL Creatinine (0.66-1.25) mg/dL Glucose (74-99) mg/dL POC Glucose (mg/dL) 238 H 151 H 179 H (70-110) mg/dL Calcium (8.4-10.2) mg/dL Phosphorus (2.5-4.5) mg/dL 06/14/24 06/14/24 06/14/24 Range/Units 06:15 06:31 06:31 WBC 10.8 H (3.8-10.6) k/uL RBC 2.99 L (4.30-5.90) m/uL Hgb 8.3 L (13.0-17.5) gm/dL Hct 27.4 L (39.0-53.0) % MCHC 30.1 L (31.0-37.0) g/dL Neutrophils # 9.2 H (1.3-7.7) k/uL Lymphocytes # 0.7 L (1.0-4.8) k/uL Sodium 129 L (137-145) mmol/L Chloride 96 L (98-107) mmol/L BUN 60 H (9-20) mg/dL Creatinine 5.50 H (0.66-1.25) mg/dL Glucose 188 H (74-99) mg/dL POC Glucose (mg/dL) 228 H (70-110) mg/dL Calcium 7.8 L (8.4-10.2) mg/dL Phosphorus 8.0 H (2.5-4.5) mg/dL
[2024-06-14 11:54] LABS: Glucose,Whole Blood 165 mg/dL (70-110)
[2024-06-14] MEDS: DARBEPOETIN ALFA 40 MCG/0.4 ML SYRINGE SQ SCH (11:58)
[2024-06-14] MEDS: CALCIUM ACETATE 667 MG TAB PO SCH (11:58)
[2024-06-14 16:56] LABS: Glucose,Whole Blood 230 mg/dL (70-110)
[2024-06-14 20:02] LABS: Glucose,Whole Blood 190 mg/dL (70-110)
[2024-06-15 06:00] LABS: Glucose,Whole Blood 243 mg/dL (70-110)
[2024-06-15 07:30] LABS: Basophils % (A) 0 %; Eosinophils # (A) 0.3 k/uL (0-0.7); Eosinophils % (A) 2 %; HCT 26.3 % (39.0-53.0); HGB 8.2 gm/dL (13.0-17.5); Hypochromasia Marked; Lymphocytes # (A) 0.8 k/uL (1.0-4.8); Lymphocytes % (A) 7 %; MCH 28.7 pg (25.0-35.0); MCHC 31.3 g/dL (31.0-37.0); MCV 91.7 fL (80.0-100.0); Mean Platelet Volume 8.2; Monocytes # (A) 0.6 k/uL (0-1.0); Monocytes % (A) 5 %; Neutrophils % (A) 85 %; Platelet Count 272 k/uL (150-450); RBC 2.87 m/uL (4.30-5.90); RDW 15.3 % (11.5-15.5); WBC 11.8 k/uL (3.8-10.6)
[2024-06-15 07:44] LABS: African American GFR (CKD) 13 (>60 ml/min/1.73 sqM); Anion Gap 6 mmol/L; Blood Urea Nitrogen 54 mg/dL (9-20); Calcium 7.8 mg/dL (8.4-10.2); Carbon Dioxide 29 mmol/L (22-30); Chloride 95 mmol/L (98-107); Glucose 201 mg/dL (74-99); Non-African American GFR(CKD) 11 (>60 ml/min/1.73 sqM); Potassium 4.3 mmol/L (3.5-5.1); Sodium 130 mmol/L (137-145)
--- NOTE | 2024-06-15 09:37 | P.PN ---
Subjective Progress Note Date: 06/15/24 54-year-old male with a PMH of systolic CHF (EF 20 to 25%), asthma, COPD, diabetes mellitus, and CKD 3B presents with complaints of shortness of breath. Reports 3 weeks ago he started feeling shortness of breath, and states that this time he went to an urgent care where he was prescribed steroids and azithromycin which he reports he finished antibiotic course and steroids. States after completing this he felt slightly better but still had shortness of breath. Notes during this time he has had to sleep sitting on the edge of the bed, admits to orthopnea. States that shortness of breath gets worse on exertion. Admits to seeing increased swelling in his lower extremities compared to before this all started. Of note during recent admission he was treated for foot ulcers, which she reports he follows consistently with wound care outpatient. Admits to a mild cough but denies any sputum production. Denies fever, chills, headache, chest pain, palpitations, nausea, vomiting, diarrhea, constipation. Labs: WBC 12.9, hemoglobin 12.3, D-dimer 1.34, sodium 129, BUN 28, creatinine 1.8, glucose 254, troponin 0.01, BNP 12,200, and viral respiratory panel all negative. Imaging: - EKG done in the ER showed heart rate of 94 bpm, sinus rhythm, possible left atrial enlargement, and QTc 406. - ER CXR: No acute cardiopulmonary disease/process. - ER CTA chest: No evidence of PE, bronchial wall thickening, left upper lung pulmonary nodule measuring 8 mm, hepatic steatosis - CXR from 06/10 independently interpreted shows improved congestion -Echo left ventricular ejection fraction estimated 30 to 35% with severely increased diastolic volume. Severe global hypokinesis of the left ventricle. 06/08/2024 patient seen and examined at bedside. Patient noted that his shortness of breath is improved and only occurs on exertion such as walking. He denies chest pain, calf tenderness, cough, subjective fevers, chills, nausea vomiting, or diarrhea. WBC 9.9 hemoglobin 10.3 platelet count 2 25,000 sodium 134 potassium 3.8 chloride 101 bicarb 30 BUN 30 creatinine 2.14 glucose 131 calcium 7.9 magnesium 2 AST 46 ALT 13 ALP 75 troponin peaked at 0.08 albumin 2.1. Echo left ventricular ejection fraction estimated 30 to 35% with severely increased diastolic volume. Severe global hypokinesis of the left ventricle. 06/09/2024 patient seen and examined at bedside. Patient noted to have improved shortness of breath better than yesterday. No acute events overnight. WBC 15.3 hemoglobin 10.3 platelet count 204,000 sodium 132 potassium 4.2 chloride 100 bicarb 26 BUN 37 creatinine 2.64 glucose 178 calcium 8 06/10/2024 patient seen and examined at bedside. Patient reported that they still experience shortness of breath on exertion. He also reported that they feel they have a lot of wheezing today. No acute events overnight. WBC 14.6 hemoglobin 9.1 MCV 9.8 platelet count 189,000 sodium 129 potassium 4.3 chloride 100 BUN 44 creatinine 3.01 glucose 196 calcium 7.7. CXR from 06/10 independently interpreted shows improved congestion. Ultrasound of the bladder shows no obstruction. 06/11/2024 patient seen and examined at bedside. Patient reported that he still experiences some shortness of breath. No acute events overnight. WBC 17.9 hemoglobin 9.1 platelet count 09/01/1999 sodium 132 potassium 4.1 chloride 100 BUN 49 creatinine 3.42 glucose 116 calcium 8 06/12/2024 patient seen and examined at bedside. No acute events overnight. No new complaints. Cr significantly worsening. Nephrology on board. Tanya is < 20. 06/13/2024 patient seen and examined at bedside. No acute events overnight. Patient has no new complaints. WBC 11.5 hemoglobin 8.4 sodium 130 BUN 67 creatinine 5.69 glucose 174 calcium 7.7 magnesium 2.4 06/14/2024 patient seen and examined at bedside. No acute events overnight. Patient had no new complaints. WBC 10.8 hemoglobin 8.3 platelet count 268,000 sodium 129 potassium 4.5 chloride 96 BUN 16 creatinine 5.5 glucose 188 calcium 7.8 phosphorus 8 magnesium 2.3 06/15/2024 patient seen and examined at bedside. No acute events overnight. Patient reported complaining of discomfort with the Hamilton catheter. WBC 11.8 hemoglobin 8.2 platelet count 272,000 sodium 130 potassium 4.3 chloride 95 BUN 54 creatinine 5.4 glucose 201 calcium 7.8. Fuid balance -2 990 mL hemodialysis 1.5 L taken UO 775mL Gen: In NAD, non-toxic, on 2L NC HEENT: normocephalic, atraumatic, hearing acuity is intant, mucous membranes moist CVS: perfusing all extremities well, bilateral pitting edema Respiratory: symmetric chest expansion, no accessory muscle use GI: soft, NTTP, ND : no suprapubic tenderness, no CVA tenderness MSK/Derm: no rashes, cyanosis, chronic wound wrapped in bandaging (ulcers), right foot with no erythema or noticeable discharge appreciated, pedal edema appreciated, trace to 1+ pitting edema up to the mid calf noted on bilateral lower extremities Neuro: CN II-XII intact, no motor weakness Psych: cooperative, euthymic mood, judgment and insight is intact Assessment/Plan: #CHAVO on CKD stage IIIb secondary to cardiorenal syndrome -BUN and creatinine increasing trend. Currently BUN 54 creatinine 5.4 -Baseline creatinine 1.69-2.2 -Monitor UO. On Hamilton catheter -Continue to monitor daily BMP -Discussed management with nephrology. Gabinoxiga and Cozaar held. Dialysis today. Started on Phoslo and Aranesp. IV Lasix 60 mg twice daily. Will likely need outpatient dialysis. #Acute on chronic hypoxic respiratory failure secondary to CHF exacerbation, improving #Acute on chronic systolic CHF (EF 20 to 25%), NYHA class III, improving #COPD without exacerbation #Hypervolemic hyponatremia, stable -Cardiac monitoring -Fluid restrict to 2 L daily -Daily weights -Strict I's and O's -O2 NC as needed -Ordered DuoNeb 3 ml every 2 hours as needed for shortness of breath or wheezing -Hemodialysis today and tomorrow for diuresis -IV Lasix 60 mg twice daily -Cardiology following -GDMT: - coreg - losartan held due to CHAVO - not on mineralocorticoid, farxiga due to kidney dysfunction #Leukocytosis, reactive -WBC 11.8 today. Patient is afebrile and has not developed any new symptoms. -Will continue to monitor #Anemia of chronic disease superimposed with iron deficiency, stable -Iron 9 TIBC 1 9 8% saturation 4.74 transferrin 136 ferritin 541 -Discontunued Ferrlecit 125 mg IVPB daily Chronic Conditions: # Chronic right foot wound Patient being seen at home wound care. -Consult wound care #Diabetes mellitus, controlled -Hold home medications -Insulin NovoLog sliding scale ACHS -Accu-Cheks -Continue home NovoLog 8 units subcu 3 times daily -Increase levemir 55 units at bedtime #Hypertension -Hold amlodipine and losartan for now F: Oral intake. Restrict to 2 L fluid E: None N: Heart healthy diet with fluid restriction to 2 L DVT prophylaxis: Heparin 5000 units SQ every 8 hours GI prophylaxis: Home omeprazole 20 mg p.o. daily I saw and evaluated the patient during the fernández and critical portions of this encounter, and discussed the case in detail with the resident author of this note, I agree with the Assessment and Plan, and my changes, if any, are noted below. 750 cc urine output over the past 24H. Continue HD. Discussed with Dr. Solano, continue to monitor urine output over the weekend, may need permanent HD catheter on Thursday. BABATUNDE Souza is working on placement. Objective - Vital Signs Vital signs: Vital Signs Temp 99.0 F 06/15/24 04:13 Pulse 68 06/15/24 04:13 Resp 20 06/15/24 04:13 BP 117/63 06/15/24 04:13 Pulse Ox 94 L 06/15/24 04:13 FiO2 Intake & Output 06/14/24 06/15/24 06/15/24 18:59 06:59 18:59 Intake Total 1116 211 Output Total 4775 400 Balance -3659 -189 Weight 181 kg Intake: Oral 716 211 Hemodialysis 400 Output: Urine 375 400 Hemodialysis 2400 Hemodialysis Net Amount 2000 Other: Voiding Method Indwelling Catheter Indwelling Catheter # Bowel Movements 1 - Labs CBC & Chem 7: 06/15/24 06:37 06/15/24 06:37 Labs: Abnormal Lab Results - Last 24 Hours (Table) 06/14/24 06/14/24 06/14/24 Range/Units 11:52 16:55 20:00 WBC (3.8-10.6) k/uL RBC (4.30-5.90) m/uL Hgb (13.0-17.5) gm/dL Hct (39.0-53.0) % Neutrophils # (1.3-7.7) k/uL Lymphocytes # (1.0-4.8) k/uL Sodium (137-145) mmol/L Chloride (98-107) mmol/L BUN (9-20) mg/dL Creatinine (0.66-1.25) mg/dL Glucose (74-99) mg/dL POC Glucose (mg/dL) 165 H 230 H 190 H (70-110) mg/dL Calcium (8.4-10.2) mg/dL 06/15/24 06/15/24 06/15/24 Range/Units 05:59 06:37 06:37 WBC 11.8 H (3.8-10.6) k/uL RBC 2.87 L (4.30-5.90) m/uL Hgb 8.2 L (13.0-17.5) gm/dL Hct 26.3 L (39.0-53.0) % Neutrophils # 10.0 H (1.3-7.7) k/uL Lymphocytes # 0.8 L (1.0-4.8) k/uL Sodium 130 L (137-145) mmol/L Chloride 95 L (98-107) mmol/L BUN 54 H (9-20) mg/dL Creatinine 5.40 H (0.66-1.25) mg/dL Glucose 201 H (74-99) mg/dL POC Glucose (mg/dL) 243 H (70-110) mg/dL Calcium 7.8 L (8.4-10.2) mg/dL
--- NOTE | 2024-06-15 10:19 | P.PN ---
Subjective Patient is seen in follow-up for acute kidney injury on chronic kidney disease. Started on hemodialysis June 13, 2024. Tolerated 2 L ultrafiltration yesterday. Urine output 775 cc in the last 24 hours. Vital signs are stable. General: No acute distress. HEENT: Head exam is unremarkable. On nasal cannula. LUNGS: No audible rhonchi or wheezes. HEART: Rate and Rhythm are regular. ABDOMEN: Obese, nontender. EXTREMITITES: Lower extremities wrapped. 1+ edema. Chronic changes noted right lower extremity. Objective - Vital Signs Vital signs: Vital Signs Temp 98.2 F 06/15/24 08:00 Pulse 80 06/15/24 09:55 Resp 20 06/15/24 08:00 BP 164/78 06/15/24 08:00 Pulse Ox 97 06/15/24 08:00 FiO2 Intake & Output 06/14/24 06/15/24 06/15/24 18:59 06:59 18:59 Intake Total 1116 211 240 Output Total 4775 400 200 Balance -3659 -189 40 Weight 181 kg Intake: Oral 716 211 240 Hemodialysis 400 Output: Urine 375 400 200 Hemodialysis 2400 Hemodialysis Net Amount 1999 Other: Voiding Method Indwelling Catheter Indwelling Catheter Indwelling Catheter # Bowel Movements 1 - Labs CBC & Chem 7: 06/15/24 06:37 06/15/24 06:37 Labs: Abnormal Lab Results - Last 24 Hours (Table) 06/14/24 06/14/24 06/14/24 Range/Units 11:52 16:55 20:00 WBC (3.8-10.6) k/uL RBC (4.30-5.90) m/uL Hgb (13.0-17.5) gm/dL Hct (39.0-53.0) % Neutrophils # (1.3-7.7) k/uL Lymphocytes # (1.0-4.8) k/uL Sodium (137-145) mmol/L Chloride (98-107) mmol/L BUN (9-20) mg/dL Creatinine (0.66-1.25) mg/dL Glucose (74-99) mg/dL POC Glucose (mg/dL) 165 H 230 H 190 H (70-110) mg/dL Calcium (8.4-10.2) mg/dL 06/15/24 06/15/24 06/15/24 Range/Units 05:59 06:37 06:37 WBC 11.8 H (3.8-10.6) k/uL RBC 2.87 L (4.30-5.90) m/uL Hgb 8.2 L (13.0-17.5) gm/dL Hct 26.3 L (39.0-53.0) % Neutrophils # 10.0 H (1.3-7.7) k/uL Lymphocytes # 0.8 L (1.0-4.8) k/uL Sodium 130 L (137-145) mmol/L Chloride 95 L (98-107) mmol/L BUN 54 H (9-20) mg/dL Creatinine 5.40 H (0.66-1.25) mg/dL Glucose 201 H (74-99) mg/dL POC Glucose (mg/dL) 243 H (70-110) mg/dL Calcium 7.8 L (8.4-10.2) mg/dL Assessment and Plan Plan: Assessment: 1. Acute kidney injury secondary to ATN secondary to cardiorenal syndrome as well as contrast associated acute kidney injury. Patient received IV contrast on June 07, 2024. Creatinine 1.8 on admission and is up to 5.69 dated June 13, 2024. Kidney ultrasound showed no evidence of hydronephrosis. Started on hemodialysis June 13, 2024 via temporary right IJ catheter. 2. Chronic kidney disease stage IIIb with baseline creatinine 1.8-2 secondary to diabetic kidney disease. 3. Acute on chronic systolic CHF ejection fraction of 30 to 35%. 4. Diabetes mellitus. 5. Anemia of chronic kidney disease. Iron deficiency noted. Status post IV iron. On Aranesp. 6. Hypervolemic hyponatremia. Better. 7. Volume overload. 8. Chronic kidney disease mineral bone disease. Phosphorus level 8.0 dated June 14, 2024. On PhosLo. Plan: Hemodialysis today. Will maintain on Thursday schedule. Maintain IV Lasix. Continue to hold Cozaar. Avoid nephrotoxins. Maintain Hamilton catheter. Strict I's and O's. Continue to monitor renal function and urine output. Monitor for renal recovery.
[2024-06-15 11:44] LABS: Glucose,Whole Blood 324 mg/dL (70-110)
[2024-06-15] MEDS: INSULIN ASPART (NovoLOG) 100 UNIT/ML VIAL SQ SCH (12:03)
[2024-06-15] MEDS: MORPHINE SULFATE 2 MG/ML SYRINGE IVP PRN (13:52)
--- NOTE | 2024-06-15 15:04 | P.PN ---
Subjective Progress Note Date: 06/15/24 HISTORY OF PRESENT ILLNESS: This is a 54-year-old male with a past medical history significant for richard estive heart failure, cardiomyopathy, severe LVH, chronic lower extremity edema, peripheral arterial disease, coronary artery disease, V-fib arrest, severe obstructive sleep apnea, chronic kidney disease, diabetes, and obesity. Patient follows in the office with Dr. Stinson. We have been asked to see the patient in consultation for congestive heart failure. Patient examined at the bedside in the emergency room. Patient presented to the hospital with a chief complaint of shortness of breath. Patient states he has been feeling short of breath for the past few days. He denies any chest pain or pressure. Patient was found to be in acute CHF and was started on IV diuretics. He reports improvement in his shortness of breath but states he still is short of breath with exertion. Vital signs are stable. Patient states he is a non-smoker. DIAGNOSTICS: - EKG reveals sinus mechanism with nonspecific ST-T wave changes - Chest xray negative for acute process - Chest CTA: Negative for pulmonary embolism, bronchial wall thickening correlate for bronchitis, left upper lobe pulmonary nodule, and hepatic steatosis - Laboratory data: WBC 12.9. Hemoglobin 12.3. Platelet count 270. D-dimer 1.34. Sodium 129. Potassium 4.8. BUN 28. Creatinine 1.8. BNP 12,200. Troponin 0.081. 0.087. 0.080. - Current home cardiac medications include Bumex 1 mg twice a day, Lipitor 80 mg at night, aspirin 81 mg daily, losartan 50 mg daily, amlodipine 10 mg daily, carvedilol 35.7 mg twice a day. - Most recent echocardiogram obtained in February 2024 revealed ejection fraction 3035%, inferior and inferior lateral wall hypokinesis, severe LVH, moderate MR, mild TR -Patient underwent Lexiscan stress test in January 2024 revealing severe intensity large sized fixed perfusion defect involving inferior and inferior lateral wall, EF 30% - Cardiac catheterization history: 2016 with stenting to the circumflex in the setting of acute inferior STEMI 06/09/2024 Patient examined this morning at the bedside. Patient currently denies any chest pain or pressure. He denies any shortness of breath at rest. He states he has not been out of bed a whole lot yet to assess his shortness of breath with exertion. He remains on IV Bumex 2 mg every 12 hours. He continues to have lower extremity edema although improving. He is currently on room air. Creatinine today increased to 2.64. Echocardiogram completed revealing ejection fraction 30 to 35% with severe global hypokinesis of left ventricle 06/10/2024 Patient examined this morning at the bedside. Patient currently denies any chest pain or pressure. He reports his breathing this morning feels " so-so". He does report wheezing this morning as well and is inquiring about steroids. Patient's creatinine today is worsened at 3.01. He is maintained on Bumex 1 mg twice a day. Vital signs are stable. Blood pressure 113/73. 06/11/2024 Patient examined this morning at the bedside. Patient reports mild shortness of breath. He denies chest pain or pressure. Patient's creatinine is worsened today at 3.42. Vital signs are stable. Telemetry reveals sinus mechanism. 06/12/2024 Patient examined this morning at the bedside. Patient states he feels tired today. He has not been out of bed yet. He denies chest pain or pressure. He states his breathing feels about the same as yesterday. Patient's creatinine is worsened today at 4.53. His Bumex and Farxiga have been discontinued since yesterday. 06/13/24 Patient seen and examined. This morning, patient is very upset because he had a Hamilton catheter placed. He is followed by nephrology. Blood pressure 142/81, heart rate in the 80s, pulse ox 96% on 2 L nasal cannula. Repeat blood work reveals hemoglobin 8.4, sodium 130, BUN 67 creatinine 5.69. Renal function has been worsening each day. Chest x-ray reveals cardiomegaly with mild pulmonary vascular congestion. 06/14/24 Patient seen and examined. Due to worsening renal function, a right IJ catheter was placed by Dr. Sanchez and patient started hemodialysis yesterday. He is scheduled for repeat dialysis today. Patient denies having any chest pain. No palpitations. Blood pressure 136/79, heart rate in the 60s and 70s, pulse ox 96% on 3 L nasal cannula. Repeat blood work reveals hemoglobin of 8.3, sodium 129, potassium 4.5, BUN 68 and creatinine 5.5. Chest x-ray reveals catheter tip in SVC right junction. No pneumothorax. Cardiomegaly with mild pulmonary vascular congestion. 06/15/24 Patient seen and examined. No new concerns from the patient. No chest pain. Blood pressure 136/79, heart rate 75, pulse ox 91% on 3 L nasal cannula. Repeat blood work reveals hemoglobin 8.2, WBC 11.8, BUN 54 creatinine 5.4. Patient has been continued on hemodialysis and maintaining Thursday schedule. He remains on IV Lasix managed by nephrology. PHYSICAL EXAM: VITAL SIGNS: Reviewed. GENERAL: Well-developed in no acute distress. HEENT: Head is normocephalic. Pupils are equal, round. Sclerae anicteric. Mucous membranes of the mouth are moist. Neck supple. No JVD or thyromegaly LUNGS: Respirations even and unlabored. Lungs diminished bilaterally HEART: Regular rate and rhythm. S1 and S2 heard. ABDOMEN: Soft. Nondistended. Nontender. EXTREMITIES: Normal range of motion. No clubbing or cyanosis. Peripheral pulses intact. Bilateral lower extremity edema noted. NEUROLOGIC: Awake and alert. Oriented x 3. ASSESSMENT: Shortness of breath Acute on chronic heart failure with reduced EF, 30-35% Acute kidney injury and chronic kidney disease stage III, started HD on 06/13 Hyponatremia Elevated troponins, type II [place] secondary to oxygen supply/demand mismatch Coronary artery disease with previous stenting to the circumflex, 2016 History of V-fib cardiac arrest, 2016 Peripheral arterial disease Ischemic cardiomyopathy, EF 30-35% Chronic lower extremity edema Severe concentric LVH Obstructive sleep apnea Diabetes Morbid obesity: BMI 54.5 PLAN: Bumex and Farxiga have been discontinued Nephrology following and patient started on hemodialysis 06/13. Continue cardiac medications: Aspirin 81 mg daily, atorvastatin 80 mg at bedtime, Coreg 37.5 mg twice daily Nephrology started patient on Lasix 60 mg every 12 hours Daily weights, accurate intake and output, and monitoring of kidney function Further recommendations pending patient course Nurse practitioner note has been reviewed by physician. Signing provider agrees with the documented findings, assessment, and plan of care documented by FRICKERTRON CHECKER as a scribe. Objective - Vital Signs Vital signs: Vital Signs Temp 98.2 F 06/15/24 08:00 Pulse 80 06/15/24 09:55 Resp 20 06/15/24 08:00 BP 164/78 06/15/24 08:00 Pulse Ox 97 06/15/24 08:00 FiO2 Intake & Output 06/14/24 06/15/24 06/15/24 18:59 06:59 18:59 Intake Total 1116 211 240 Output Total 4775 400 200 Balance -3659 -189 40 Weight 181 kg Intake: Oral 716 211 240 Hemodialysis 400 Output: Urine 375 400 200 Hemodialysis 2400 Hemodialysis Net Amount 2000 Other: Voiding Method Indwelling Catheter Indwelling Catheter Indwelling Catheter # Bowel Movements 1 - Labs CBC & Chem 7: 06/15/24 06:37 06/15/24 06:37 Labs: Abnormal Lab Results - Last 24 Hours (Table) 06/14/24 06/14/24 06/14/24 Range/Units 11:52 16:55 20:00 WBC (3.8-10.6) k/uL RBC (4.30-5.90) m/uL Hgb (13.0-17.5) gm/dL Hct (39.0-53.0) % Neutrophils # (1.3-7.7) k/uL Lymphocytes # (1.0-4.8) k/uL Sodium (137-145) mmol/L Chloride (98-107) mmol/L BUN (9-20) mg/dL Creatinine (0.66-1.25) mg/dL Glucose (74-99) mg/dL POC Glucose (mg/dL) 165 H 230 H 190 H (70-110) mg/dL Calcium (8.4-10.2) mg/dL 06/15/24 06/15/24 06/15/24 Range/Units 05:59 06:37 06:37 WBC 11.8 H (3.8-10.6) k/uL RBC 2.87 L (4.30-5.90) m/uL Hgb 8.2 L (13.0-17.5) gm/dL Hct 26.3 L (39.0-53.0) % Neutrophils # 10.0 H (1.3-7.7) k/uL Lymphocytes # 0.8 L (1.0-4.8) k/uL Sodium 130 L (137-145) mmol/L Chloride 95 L (98-107) mmol/L BUN 54 H (9-20) mg/dL Creatinine 5.40 H (0.66-1.25) mg/dL Glucose 201 H (74-99) mg/dL POC Glucose (mg/dL) 243 H (70-110) mg/dL Calcium 7.8 L (8.4-10.2) mg/dL
[2024-06-15 16:18] LABS: Glucose,Whole Blood 254 mg/dL (70-110)
[2024-06-15 20:21] LABS: Glucose,Whole Blood 172 mg/dL (70-110)
[2024-06-15] MEDS: INSULIN DETEMIR (LEVEMIR) 100 UNIT/ML SYR SQ SCH (23:50)
[2024-06-16 05:42] LABS: Glucose,Whole Blood 123 mg/dL (70-110)
[2024-06-16 08:23] LABS: Basophils % (A) 0 %; Eosinophils # (A) 0.3 k/uL (0-0.7); Eosinophils % (A) 2 %; HCT 27.5 % (39.0-53.0); HGB 8.5 gm/dL (13.0-17.5); Hypochromasia Marked; Lymphocytes # (A) 0.7 k/uL (1.0-4.8); Lymphocytes % (A) 6 %; MCH 28.3 pg (25.0-35.0); MCHC 30.8 g/dL (31.0-37.0); MCV 91.8 fL (80.0-100.0); Mean Platelet Volume 7.7; Monocytes # (A) 0.6 k/uL (0-1.0); Monocytes % (A) 5 %; Neutrophils # (A) 9.8 k/uL (1.3-7.7); Neutrophils % (A) 85 %; Platelet Count 295 k/uL (150-450); RBC 2.99 m/uL (4.30-5.90); RDW 15.1 % (11.5-15.5); WBC 11.5 k/uL (3.8-10.6)
[2024-06-16 08:35] LABS: African American GFR (CKD) 15 (>60 ml/min/1.73 sqM); Anion Gap 2 mmol/L; Blood Urea Nitrogen 42 mg/dL (9-20); Calcium 8.1 mg/dL (8.4-10.2); Carbon Dioxide 35 mmol/L (22-30); Chloride 94 mmol/L (98-107); Glucose 111 mg/dL (74-99); Magnesium 1.9 mg/dL (1.6-2.3); Non-African American GFR(CKD) 13 (>60 ml/min/1.73 sqM); Potassium 4.4 mmol/L (3.5-5.1); Sodium 131 mmol/L (137-145)
--- NOTE | 2024-06-16 10:53 | P.PN ---
Subjective Patient is seen in follow-up for acute kidney injury on chronic kidney disease. Started on hemodialysis June 13, 2024. Tolerated 2 L ultrafiltration yesterday. Urine output 750 cc in the last 24 hours. Vital signs are stable. General: No acute distress. HEENT: Head exam is unremarkable. On nasal cannula. LUNGS: No audible rhonchi or wheezes. HEART: Rate and Rhythm are regular. ABDOMEN: Obese, nontender. EXTREMITITES: Lower extremities wrapped. 1+ edema. Chronic changes noted right lower extremity. Objective - Vital Signs Vital signs: Vital Signs Temp 98.3 F 06/16/24 08:00 Pulse 68 06/16/24 08:26 Resp 18 06/16/24 08:00 BP 104/56 06/16/24 08:00 Pulse Ox 96 06/16/24 08:00 FiO2 Intake & Output 06/15/24 06/16/24 06/16/24 18:59 06:59 18:59 Intake Total 1010 510 246 Output Total 550 4700 Balance 460 -4190 246 Weight 181 kg 177 kg Intake: IV 10 10 Invasive Line 4 10 10 Oral 1010 236 Hemodialysis 500 Output: Urine 550 200 Hemodialysis 2500 Hemodialysis Net Amount 2000 Other: Voiding Method Indwelling Catheter Indwelling Catheter Indwelling Catheter # Bowel Movements 1 - Labs CBC & Chem 7: 06/16/24 07:21 06/16/24 07:21 Labs: Abnormal Lab Results - Last 24 Hours (Table) 06/15/24 06/15/24 06/15/24 Range/Units 11:42 16:16 20:19 WBC (3.8-10.6) k/uL RBC (4.30-5.90) m/uL Hgb (13.0-17.5) gm/dL Hct (39.0-53.0) % MCHC (31.0-37.0) g/dL Neutrophils # (1.3-7.7) k/uL Lymphocytes # (1.0-4.8) k/uL Sodium (137-145) mmol/L Chloride (98-107) mmol/L Carbon Dioxide (22-30) mmol/L BUN (9-20) mg/dL Creatinine (0.66-1.25) mg/dL Glucose (74-99) mg/dL POC Glucose (mg/dL) 324 H 254 H 172 H (70-110) mg/dL Calcium (8.4-10.2) mg/dL 06/16/24 06/16/24 06/16/24 Range/Units 05:41 07:21 07:21 WBC 11.5 H (3.8-10.6) k/uL RBC 2.99 L (4.30-5.90) m/uL Hgb 8.5 L (13.0-17.5) gm/dL Hct 27.5 L (39.0-53.0) % MCHC 30.8 L (31.0-37.0) g/dL Neutrophils # 9.8 H (1.3-7.7) k/uL Lymphocytes # 0.7 L (1.0-4.8) k/uL Sodium 131 L (137-145) mmol/L Chloride 94 L (98-107) mmol/L Carbon Dioxide 35 H (22-30) mmol/L BUN 42 H (9-20) mg/dL Creatinine 4.79 H (0.66-1.25) mg/dL Glucose 111 H (74-99) mg/dL POC Glucose (mg/dL) 123 H (70-110) mg/dL Calcium 8.1 L (8.4-10.2) mg/dL Assessment and Plan Plan: Assessment: 1. Acute kidney injury secondary to ATN secondary to cardiorenal syndrome as well as contrast associated acute kidney injury. Patient received IV contrast on June 07, 2024. Creatinine 1.8 on admission and is up to 5.69 dated June 13, 2024. Kidney ultrasound showed no evidence of hydronephrosis. Started on hemodialysis June 13, 2024 via temporary right IJ catheter. 2. Chronic kidney disease stage IIIb with baseline creatinine 1.8-2 secondary to diabetic kidney disease. 3. Acute on chronic systolic CHF ejection fraction of 30 to 35%. 4. Diabetes mellitus. 5. Anemia of chronic kidney disease. Iron deficiency noted. Status post IV iron. On Aranesp. 6. Hypervolemic hyponatremia. Better. 7. Volume overload. 8. Chronic kidney disease mineral bone disease. Phosphorus level 8.0 dated June 14, 2024. On PhosLo. Plan: Hemodialysis tomorrow. Will maintain on Thursday schedule. Maintain IV Lasix. Continue to hold Cozaar. Avoid nephrotoxins. Okay to DC Hamilton catheter and use external catheter to monitor urine output. Monitor for renal recovery.
[2024-06-16 11:41] LABS: Glucose,Whole Blood 199 mg/dL (70-110)
[2024-06-16] MEDS ORDERED: PIPERACILLIN-TAZOBACTAM 3.375 GM in SODIUM CHLORIDE 0.9% 100 ML IVPB SCH (12:00)
[2024-06-16] MEDS: PIPERACILLIN-TAZOBACTAM 3.375 GM in SODIUM CHLORIDE 0.9% 100 ML IVPB SCH (12:30)
--- NOTE | 2024-06-16 12:55 | P.PN ---
Subjective Progress Note Date: 06/16/24 54-year-old male with a PMH of systolic CHF (EF 20 to 25%), asthma, COPD, diabetes mellitus, and CKD 3B presents with complaints of shortness of breath. Reports 3 weeks ago he started feeling shortness of breath, and states that this time he went to an urgent care where he was prescribed steroids and azithromycin which he reports he finished antibiotic course and steroids. States after completing this he felt slightly better but still had shortness of breath. Notes during this time he has had to sleep sitting on the edge of the bed, admits to orthopnea. States that shortness of breath gets worse on exertion. Admits to seeing increased swelling in his lower extremities compared to before this all started. Of note during recent admission he was treated for foot ulcers, which she reports he follows consistently with wound care outpatient. Admits to a mild cough but denies any sputum production. Denies fever, chills, headache, chest pain, palpitations, nausea, vomiting, diarrhea, constipation. Labs: WBC 12.9, hemoglobin 12.3, D-dimer 1.34, sodium 129, BUN 28, creatinine 1.8, glucose 254, troponin 0.01, BNP 12,200, and viral respiratory panel all negative. Imaging: - EKG done in the ER showed heart rate of 94 bpm, sinus rhythm, possible left atrial enlargement, and QTc 406. - ER CXR: No acute cardiopulmonary disease/process. - ER CTA chest: No evidence of PE, bronchial wall thickening, left upper lung pulmonary nodule measuring 8 mm, hepatic steatosis - CXR from 06/10 independently interpreted shows improved congestion -Echo left ventricular ejection fraction estimated 30 to 35% with severely increased diastolic volume. Severe global hypokinesis of the left ventricle. 06/08/2024 patient seen and examined at bedside. Patient noted that his shortness of breath is improved and only occurs on exertion such as walking. He denies chest pain, calf tenderness, cough, subjective fevers, chills, nausea vomiting, or diarrhea. WBC 9.9 hemoglobin 10.3 platelet count 2 25,000 sodium 134 potassium 3.8 chloride 101 bicarb 30 BUN 30 creatinine 2.14 glucose 131 calcium 7.9 magnesium 2 AST 46 ALT 13 ALP 75 troponin peaked at 0.08 albumin 2.1. Echo left ventricular ejection fraction estimated 30 to 35% with severely increased diastolic volume. Severe global hypokinesis of the left ventricle. 06/09/2024 patient seen and examined at bedside. Patient noted to have improved shortness of breath better than yesterday. No acute events overnight. WBC 15.3 hemoglobin 10.3 platelet count 204,000 sodium 132 potassium 4.2 chloride 100 bicarb 26 BUN 37 creatinine 2.64 glucose 178 calcium 8 06/10/2024 patient seen and examined at bedside. Patient reported that they still experience shortness of breath on exertion. He also reported that they feel they have a lot of wheezing today. No acute events overnight. WBC 14.6 hemoglobin 9.1 MCV 9.8 platelet count 189,000 sodium 129 potassium 4.3 chloride 100 BUN 44 creatinine 3.01 glucose 196 calcium 7.7. CXR from 06/10 independently interpreted shows improved congestion. Ultrasound of the bladder shows no obstruction. 06/11/2024 patient seen and examined at bedside. Patient reported that he still experiences some shortness of breath. No acute events overnight. WBC 17.9 hemoglobin 9.1 platelet count 09/01/1999 sodium 132 potassium 4.1 chloride 100 BUN 49 creatinine 3.42 glucose 116 calcium 8 06/12/2024 patient seen and examined at bedside. No acute events overnight. No new complaints. Cr significantly worsening. Nephrology on board. Tanya is < 20. 06/13/2024 patient seen and examined at bedside. No acute events overnight. Patient has no new complaints. WBC 11.5 hemoglobin 8.4 sodium 130 BUN 67 creatinine 5.69 glucose 174 calcium 7.7 magnesium 2.4 06/14/2024 patient seen and examined at bedside. No acute events overnight. Patient had no new complaints. WBC 10.8 hemoglobin 8.3 platelet count 268,000 sodium 129 potassium 4.5 chloride 96 BUN 16 creatinine 5.5 glucose 188 calcium 7.8 phosphorus 8 magnesium 2.3 06/15/2024 patient seen and examined at bedside. No acute events overnight. Patient reported complaining of discomfort with the Hamilton catheter. WBC 11.8 hemoglobin 8.2 platelet count 272,000 sodium 130 potassium 4.3 chloride 95 BUN 54 creatinine 5.4 glucose 201 calcium 7.8. Fuid balance -2 990 mL hemodialysis 1.5 L taken UO 775mL 06/16/2024 patient seen and examined at bedside. Patient reported to have some confusion overnight. Also that he slept most of the day. No new complaints. WBC 11.5 hemoglobin 8.5 sodium 131 potassium 4.4 bicarb 35 BUN 42 creatinine 4.79 glucose 111 calcium 8.1 ALEKS balance -3848 mL urine output 775 mL Gen: In NAD, non-toxic, on 2L NC HEENT: normocephalic, atraumatic, hearing acuity is intant, mucous membranes moist CVS: perfusing all extremities well, bilateral pitting edema Respiratory: symmetric chest expansion, no accessory muscle use GI: soft, NTTP, ND : no suprapubic tenderness, no CVA tenderness, white discharge surrounding are a of Hamilton catheter MSK/Derm: no rashes, cyanosis, chronic wound wrapped in bandaging (ulcers), righ t foot with noted today with whitish discharge and surrounding erythema of the skin, pedal edema appreciated, trace to 1+ pitting edema up to the mid calf noted on bilateral lower extremities Neuro: CN II-XII intact, no motor weakness Psych: cooperative, euthymic mood, judgment and insight is intact Assessment/Plan: #CHAVO on CKD stage IIIb secondary to cardiorenal syndrome, improving -BUN and creatinine increasing trend. Currently BUN 42 creatinine 4.79 -Baseline creatinine 1.69-2.2 -Monitor UO. On Hamilton catheter -Continue to monitor daily BMP -Discussed management with nephrology. Tram held. Dialysis today. Started on Phoslo and Aranesp. IV Lasix 60 mg twice daily. Will likely need outpatient dialysis. #Acute on chronic hypoxic respiratory failure secondary to CHF exacerbation, improving #Acute on chronic systolic CHF (EF 20 to 25%), NYHA class III, improving #COPD without exacerbation #Hypervolemic hyponatremia, stable -Cardiac monitoring -Fluid restrict to 2 L daily -Daily weights -Strict I's and O's. ALEKS balance -3848 mL urine output 775 mL -O2 NC as needed -Ordered DuoNeb 3 ml every 2 hours as needed for shortness of breath or wheezing -Nephrology following. Hemodialysis Thursday schedule. DC Hamilton catheter today and use external catheter. -IV Lasix 60 mg twice daily -Cardiology following -GDMT: - coreg - losartan held due to CHAVO - not on mineralocorticoid, farxiga due to kidney dysfunction # Chronic right foot wound rule out infection Right foot wound today has purulent discharge with erythema surrounding skin Patient being seen at home wound care. -Consult wound care -Right foot x-ray -Initiated Zosyn IVPB every 8 hours -Infectious disease consulted #Purulent discharge around Hamilton catheter Patient reported Hamilton catheter irritation. Today developed whitish discharge around Hamilton catheter area. Patient was afebrile and hemodynamically stable -Urinalysis #Leukocytosis, r/o infection -WBC 11.5 today. Patient is afebrile and has not developed any new symptoms. -Will continue to monitor #Anemia of chronic disease superimposed with iron deficiency, stable -Iron 9 TIBC 1 9 8% saturation 4.74 transferrin 136 ferritin 541 -Discontunued Ferrlecit 125 mg IVPB daily Chronic Conditions: #Diabetes mellitus, controlled -Hold home medications -Insulin NovoLog sliding scale ACHS -Accu-Cheks -Continue home NovoLog 8 units subcu 3 times daily -Increase levemir 55 units at bedtime #Hypertension -Hold amlodipine and losartan for now F: Oral intake. Restrict to 2 L fluid E: None N: Heart healthy diet with fluid restriction to 2 L DVT prophylaxis: Heparin 5000 units SQ every 8 hours GI prophylaxis: Home omeprazole 20 mg p.o. daily I saw and evaluated the patient during the fernández and critical portions of this encounter, and discussed the case in detail with the resident author of this note, I agree with the Assessment and Plan, and my changes, if any, are noted below. Patient with R foot wound with foul smelling discharge. Discussed with Dr. Alfred, started on Zosyn and Daptomycin. Plans for I&D by Vascular tomorrow. Objective - Vital Signs Vital signs: Vital Signs Temp 98.7 F 06/16/24 04:00 Pulse 66 06/16/24 04:00 Resp 18 06/16/24 04:00 BP 138/88 06/16/24 04:00 Pulse Ox 95 06/16/24 04:00 FiO2 Intake & Output 06/15/24 06/16/24 06/16/24 18:59 06:59 18:59 Intake Total 1010 510 Output Total 550 4700 Balance 460 -4190 Weight 181 kg 177 kg Intake: IV 10 Invasive Line 4 10 Oral 1010 Hemodialysis 500 Output: Urine 550 200 Hemodialysis 2500 Hemodialysis Net Amount 2000 Other: Voiding Method Indwelling Catheter Indwelling Catheter # Bowel Movements 1 - Labs CBC & Chem 7: 06/16/24 07:21 06/16/24 07:21 Labs: Abnormal Lab Results - Last 24 Hours (Table) 06/15/24 06/15/24 06/15/24 Range/Units 11:42 16:16 20:19 POC Glucose (mg/dL) 324 H 254 H 172 H (70-110) mg/dL 06/16/24 Range/Units 05:41 POC Glucose (mg/dL) 123 H (70-110) mg/dL
--- NOTE | 2024-06-16 12:59 | XR ---
EXAMINATION TYPE: XR foot limited RT DATE OF EXAM: 06/16/2024 12:51 PM INDICATION: Patient age:Male; 54 years old; Reason for study: right foot infection r/o osteomyelitis; [facility]. COMPARISON: Right foot radiograph 01/15/2022 CT right lower extremity 01/12/2019, bilateral foot radiogra phs 01/23/2024 TECHNIQUE: The right foot was examined in the AP, oblique, and lateral projections. FINDINGS: Diffuse soft tissue swelling of the foot most pronounced along the plantar and dorsal forefoot soft t issues. Prominent amount of soft tissue gas identified within the plantar soft tissues. No acute frac ture or dislocation. No definitive osseous erosion. There is atherosclerotic calcification of the vas culature. No radiopaque foreign bodies identified. IMPRESSION: 1. Soft tissue swelling and gas involving the plantar soft tissues most consistent with an infectiou s process. No definitive osseous erosion at this time to suggest osteomyelitis. 2. Redemonstration of soft tissue swelling of the dorsal forefoot. 3. No acute fracture or dislocation. [facility], , 06/16/2024 12:57 PM
--- NOTE | 2024-06-16 13:59 | P.PN ---
Subjective Progress Note Date: 06/16/24 HISTORY OF PRESENT ILLNESS: This is a 54-year-old male with a past medical history significant for richard estive heart failure, cardiomyopathy, severe LVH, chronic lower extremity edema, peripheral arterial disease, coronary artery disease, V-fib arrest, severe obstructive sleep apnea, chronic kidney disease, diabetes, and obesity. Patient follows in the office with Dr. Stinson. We have been asked to see the patient in consultation for congestive heart failure. Patient examined at the bedside in the emergency room. Patient presented to the hospital with a chief complaint of shortness of breath. Patient states he has been feeling short of breath for the past few days. He denies any chest pain or pressure. Patient was found to be in acute CHF and was started on IV diuretics. He reports improvement in his shortness of breath but states he still is short of breath with exertion. Vital signs are stable. Patient states he is a non-smoker. DIAGNOSTICS: - EKG reveals sinus mechanism with nonspecific ST-T wave changes - Chest xray negative for acute process - Chest CTA: Negative for pulmonary embolism, bronchial wall thickening correlate for bronchitis, left upper lobe pulmonary nodule, and hepatic steatosis - Laboratory data: WBC 12.9. Hemoglobin 12.3. Platelet count 270. D-dimer 1.34. Sodium 129. Potassium 4.8. BUN 28. Creatinine 1.8. BNP 12,200. Troponin 0.081. 0.087. 0.080. - Current home cardiac medications include Bumex 1 mg twice a day, Lipitor 80 mg at night, aspirin 81 mg daily, losartan 50 mg daily, amlodipine 10 mg daily, carvedilol 35.7 mg twice a day. - Most recent echocardiogram obtained in February 2024 revealed ejection fraction 3035%, inferior and inferior lateral wall hypokinesis, severe LVH, moderate MR, mild TR -Patient underwent Lexiscan stress test in January 2024 revealing severe intensity large sized fixed perfusion defect involving inferior and inferior lateral wall, EF 30% - Cardiac catheterization history: 2016 with stenting to the circumflex in the setting of acute inferior STEMI 06/09/2024 Patient examined this morning at the bedside. Patient currently denies any chest pain or pressure. He denies any shortness of breath at rest. He states he has not been out of bed a whole lot yet to assess his shortness of breath with exertion. He remains on IV Bumex 2 mg every 12 hours. He continues to have lower extremity edema although improving. He is currently on room air. Creatinine today increased to 2.64. Echocardiogram completed revealing ejection fraction 30 to 35% with severe global hypokinesis of left ventricle 06/10/2024 Patient examined this morning at the bedside. Patient currently denies any chest pain or pressure. He reports his breathing this morning feels " so-so". He does report wheezing this morning as well and is inquiring about steroids. Patient's creatinine today is worsened at 3.01. He is maintained on Bumex 1 mg twice a day. Vital signs are stable. Blood pressure 113/73. 06/11/2024 Patient examined this morning at the bedside. Patient reports mild shortness of breath. He denies chest pain or pressure. Patient's creatinine is worsened today at 3.42. Vital signs are stable. Telemetry reveals sinus mechanism. 06/12/2024 Patient examined this morning at the bedside. Patient states he feels tired today. He has not been out of bed yet. He denies chest pain or pressure. He states his breathing feels about the same as yesterday. Patient's creatinine is worsened today at 4.53. His Bumex and Farxiga have been discontinued since yesterday. 06/13/24 Patient seen and examined. This morning, patient is very upset because he had a Hamilton catheter placed. He is followed by nephrology. Blood pressure 142/81, heart rate in the 80s, pulse ox 96% on 2 L nasal cannula. Repeat blood work reveals hemoglobin 8.4, sodium 130, BUN 67 creatinine 5.69. Renal function has been worsening each day. Chest x-ray reveals cardiomegaly with mild pulmonary vascular congestion. 06/14/24 Patient seen and examined. Due to worsening renal function, a right IJ catheter was placed by Dr. Sanchez and patient started hemodialysis yesterday. He is scheduled for repeat dialysis today. Patient denies having any chest pain. No palpitations. Blood pressure 136/79, heart rate in the 60s and 70s, pulse ox 96% on 3 L nasal cannula. Repeat blood work reveals hemoglobin of 8.3, sodium 129, potassium 4.5, BUN 68 and creatinine 5.5. Chest x-ray reveals catheter tip in SVC right junction. No pneumothorax. Cardiomegaly with mild pulmonary vascular congestion. 06/15/24 Patient seen and examined. No new concerns from the patient. No chest pain. Blood pressure 136/79, heart rate 75, pulse ox 91% on 3 L nasal cannula. Repeat blood work reveals hemoglobin 8.2, WBC 11.8, BUN 54 creatinine 5.4. Patient has been continued on hemodialysis and maintaining Thursday schedule. He remains on IV Lasix managed by nephrology. 06/16/24 Patient seen and examined. Patient denies having any chest pain, no shortness of breath. He has not been out of bed. Blood pressure 129/76, heart rate 71, pulse ox 96% on 3 L nasal cannula. Repeat blood work reveals WBC 11.5, hemoglobin 8.5, BUN 42 creatinine 4.79, sodium 131. Patient is scheduled for hemodialysis tomorrow and nephrology is maintaining him on IV Lasix PHYSICAL EXAM: VITAL SIGNS: Reviewed. GENERAL: Well-developed in no acute distress. HEENT: Head is normocephalic. Pupils are equal, round. Sclerae anicteric. Mucous membranes of the mouth are moist. Neck supple. No JVD or thyromegaly LUNGS: Respirations even and unlabored. Lungs diminished bilaterally HEART: Regular rate and rhythm. S1 and S2 heard. ABDOMEN: Soft. Nondistended. Nontender. EXTREMITIES: Normal range of motion. No clubbing or cyanosis. Peripheral pulses intact. Bilateral lower extremity edema noted. NEUROLOGIC: Awake and alert. Oriented x 3. ASSESSMENT: Shortness of breath Acute on chronic heart failure with reduced EF, 30-35% Acute kidney injury and chronic kidney disease stage III, started HD on 06/13 Hyponatremia Elevated troponins, type II VT secondary to oxygen supply/demand mismatch Coronary artery disease with previous stenting to the circumflex, 2016 History of V-fib cardiac arrest, 2016 Peripheral arterial disease Ischemic cardiomyopathy, EF 30-35% Chronic lower extremity edema Severe concentric LVH Obstructive sleep apnea Diabetes Morbid obesity: BMI 54.5 PLAN: Bumex and Farxiga have been discontinued Nephrology following and patient started on hemodialysis 06/13. Continue cardiac medications: Aspirin 81 mg daily, atorvastatin 80 mg at bedtime, Coreg 37.5 mg twice daily Nephrology started patient on Lasix 60 mg every 12 hours Daily weights, accurate intake and output, and monitoring of kidney function Further recommendations pending patient course Nurse practitioner note has been reviewed by physician. Signing provider agrees with the documented findings, assessment, and plan of care documented by CLINICAL PATHOLOGIST as a scribe. Objective - Vital Signs Vital signs: Vital Signs Temp 98.3 F 06/16/24 08:00 Pulse 68 06/16/24 08:26 Resp 18 06/16/24 08:00 BP 104/56 06/16/24 08:00 Pulse Ox 96 06/16/24 08:00 FiO2 Intake & Output 06/15/24 06/16/24 06/16/24 18:59 06:59 18:59 Intake Total 1010 510 236 Output Total 550 4700 Balance 460 -4190 236 Weight 181 kg 177 kg Intake: IV 10 Invasive Line 4 10 Oral 1010 236 Hemodialysis 500 Output: Urine 550 200 Hemodialysis 2500 Hemodialysis Net Amount 2000 Other: Voiding Method Indwelling Catheter Indwelling Catheter # Bowel Movements 1 - Labs CBC & Chem 7: 06/16/24 07:21 06/16/24 07:21 Labs: Abnormal Lab Results - Last 24 Hours (Table) 06/15/24 06/15/24 06/15/24 Range/Units 11:42 16:16 20:19 WBC (3.8-10.6) k/uL RBC (4.30-5.90) m/uL Hgb (13.0-17.5) gm/dL Hct (39.0-53.0) % MCHC (31.0-37.0) g/dL Neutrophils # (1.3-7.7) k/uL Lymphocytes # (1.0-4.8) k/uL Sodium (137-145) mmol/L Chloride (98-107) mmol/L Carbon Dioxide (22-30) mmol/L BUN (9-20) mg/dL Creatinine (0.66-1.25) mg/dL Glucose (74-99) mg/dL POC Glucose (mg/dL) 324 H 254 H 172 H (70-110) mg/dL Calcium (8.4-10.2) mg/dL 06/16/24 06/16/24 06/16/24 Range/Units 05:41 07:21 07:21 WBC 11.5 H (3.8-10.6) k/uL RBC 2.99 L (4.30-5.90) m/uL Hgb 8.5 L (13.0-17.5) gm/dL Hct 27.5 L (39.0-53.0) % MCHC 30.8 L (31.0-37.0) g/dL Neutrophils # 9.8 H (1.3-7.7) k/uL Lymphocytes # 0.7 L (1.0-4.8) k/uL Sodium 131 L (137-145) mmol/L Chloride 94 L (98-107) mmol/L Carbon Dioxide 35 H (22-30) mmol/L BUN 42 H (9-20) mg/dL Creatinine 4.79 H (0.66-1.25) mg/dL Glucose 111 H (74-99) mg/dL POC Glucose (mg/dL) 123 H (70-110) mg/dL Calcium 8.1 L (8.4-10.2) mg/dL
--- NOTE | 2024-06-16 16:03 | P.CONS ---
History of Present Illness - Reason for Consult Consult date: 06/16/24 Right diabetic foot infection Requesting physician: Emily Evans - Chief Complaint Right foot nonhealing wound foul-smelling drainage X days - History of Present Illness Patient is a 54-year-old male with a past medical history significant for COPD diabetes mellitus [place] sleep apnea presenting the hospital about 10 days ago on 06/07/2024 for evaluation of increasing shortness of breath that the pain has been getting worse over the last few days patient has been evaluated by multiple consumer services consultant including cardiology nephrology and admitting team patient did have a worsening of his kidney function requiring right jugular dialysis catheter placement by Dr. Sanchez on 06/13/2024 patient also have a chronic wound on the plantar aspect of the right foot that he has for some time before presentation the hospital patient was evaluated by wound care team on 06/08/2024 and has been treating the area with Aquacel silver dressing patient apparently has been dealing with increasing foul-smelling drainage from the right foot for the last couple of days infectious disease was consulted today for evaluation and antibiotic therapy patient has been empirically started on Zosyn patient denies having any fever or any chills, he did have a temperature of 100.1 on as well as 06/10/2024 and low-grade fever on 06/11/2024 patient was not tachycardic hypotensive and is currently on a 3 L nasal oxygen patient did have a white count of 15.6 on 06/12/2024 which is currently at 11.5 thousand with a creatinine of 4.79 patient did have a foot x-ray obtained today which did show soft tissue swelling and gas involving the plantar soft tissue most consistent with infectious process no bony erosion patient did have a chest x-ray last on 06/13/2024 no pneumothorax moderate to marked cardiomegaly with pulmonary vascular congestion Review of Systems Positive point and negatives has been mentioned in the HPI, complete review of systems was performed and all other systems are negative Past Medical History Past Medical History: Asthma, Heart Failure, COPD, Diabetes Mellitus, Deep Vein Thrombosis (DVT), Myocardial Infarction ([place]), Sleep Apnea/CPAP/BIPAP, Vascular Disorder Additional Past Medical History / Comment(s): 02/20/16 [place] with cardiac [id number]-iw wore life vest for 7 weeks, 2010 DVT RIGHT leg, bilateral lower leg cellulitis, bilateral varicose veins, PVD, NIDDM type II, BERTRAND with CPAP. UTI Mar 2021, cellulitis with open wounds on bilateral lower legs being treated in wound center [facility] 2020 Last Myocardial Infarction Date:: 02/20/16 History of Any Multi-Drug Resistant Organisms: MRSA Year Discovered:: 2018 MDRO Source:: bilateral legs Past Surgical History: Heart Catheterization With Stent Additional Past Surgical History / Comment(s): circumcision Additional Past Anesthesia/Blood Transfusion Reaction / Comm: Pt has never had anesthesia Date of Last Stent Placement:: 02/20/16 Past Psychological History: No Psychological Hx Reported Additional Psychological History / Comment(s): He is independent. Smoking Status: Former smoker Past Alcohol Use History: None Reported Additional Past Alcohol Use History / Comment(s): Pt states he started smoking at age 18 yrs and quit 02/20/16. Past Drug Use History: None Reported - Past Family History Father Family Medical History: Coronary Artery Disease (CAD), Diabetes Mellitus, Eye Disorder Additional Family Medical History / Comment(s): Bradycardia, blind. Father is in his early 70's. Mother Family Medical History: Coronary Artery Disease (CAD), Diabetes Mellitus Additional Family Medical History / Comment(s): Benign brain tumor. Mother is in her early 70's Medications and Allergies Home Medications Medication Instructions Recorded Confirmed Type Atorvastatin [Lipitor] 80 mg PO HS #30 tab 02/27/16 06/07/24 Rx Ipratropium/Albuterol Sulfate 1 puff INHALATION RT-QID 01/12/19 06/07/24 History [Combivent Respimat Inhaler] Omeprazole 20 mg PO DAILY 03/14/19 06/07/24 History Aspirin EC [Ecotrin Low Dose] 81 mg PO DAILY 10/17/20 06/07/24 History Fluticasone Propion/Salmeterol 1 puff INHALATION RT-BID 01/15/22 06/07/24 History [Wixela 250-50 Inhub] carvediloL 37.5 mg PO BID-W/MEALS 01/15/22 06/07/24 History Bumetanide [BUMEX] 1 mg PO AC-BID 01/23/24 06/07/24 History Ergocalciferol (Vitamin D2) 1,250 mcg PO Q7D 01/23/24 06/07/24 History [Drisdol (50,000 Iu)] Losartan [Cozaar] 50 mg PO DAILY #60 tab 02/01/24 06/07/24 Rx amLODIPine [Norvasc] 10 mg PO DAILY #90 tab 02/01/24 06/07/24 Rx Insulin Aspart [NovoLOG Flexpen] 6 units SQ AC-TID #1 each 04/18/24 06/07/24 Rx Insulin Glargine,Hum.rec.anlog 55 units SQ BID #2 each 04/18/24 06/07/24 Rx [Lantus Solostar Pen] Allergies Allergy/AdvReac Type Severity Reaction Status Date / Time tetracycline Allergy Rash/Hives Verified 06/07/24 13:55 Physical Exam Vitals: Vital Signs Temp Pulse Pulse Resp BP Pulse Ox 06/16/24 12:00 98 F 71 18 129/76 96 06/16/24 08:26 68 06/16/24 08:14 68 06/16/24 08:00 98.3 F 66 18 104/56 96 06/16/24 04:00 98.7 F 66 18 138/88 95 06/16/24 00:05 98.1 F 64 18 139/77 06/15/24 23:23 98.1 F 64 16 139/83 99 06/15/24 20:30 64 06/15/24 20:13 65 06/15/24 19:38 99.6 F 67 16 133/74 93 L 06/15/24 15:55 72 06/15/24 15:43 72 06/15/24 15:31 98.4 F 68 20 126/81 94 L Intake and Output 06/15/24 06/16/24 06/16/24 22:59 06:59 14:59 Intake Total 650 510 246 Output Total 175 4700 Balance 475 -4190 246 Intake: IV 10 10 Invasive Line 4 10 10 Oral 650 236 Hemodialysis 500 Output: Urine 175 200 Hemodialysis 2500 Hemodialysis Net Amount 2000 Other: Voiding Method Indwelling Catheter Indwelling Catheter Indwelling Catheter Weight 177 kg GENERAL DESCRIPTION: Middle-aged male lying in bed, no distress. No tachypnea or accessory muscle of respiration use. HEENT: Shows Pallor , no scleral icterus. Oral mucous membrane is dry. No phar yngeal erythema or thrush NECK: Trachea central, no thyromegaly. LUNGS: Unlabored breathing. Clear to auscultation anteriorly. No wheeze or crackle. HEART: S1, S2, regular rate and rhythm. No loud murmur ABDOMEN: Soft, no tenderness , guarding or rigidity, no organomegaly EXTREMITIES: Right foot plantar aspect did have a necrotic wound with significant mount of foul-smelling fluctuation SKIN: No rash, no masses palpable. NEUROLOGICAL: The patient is awake, alert, oriented x3, mood and affect normal. Results CBC & Chem 7: 06/16/24 07:21 06/16/24 07:21 Labs: Abnormal Lab Results - Last 24 Hours (Table) 06/15/24 06/15/24 06/16/24 Range/Units 16:16 20:19 05:41 WBC (3.8-10.6) k/uL RBC (4.30-5.90) m/uL Hgb (13.0-17.5) gm/dL Hct (39.0-53.0) % MCHC (31.0-37.0) g/dL Neutrophils # (1.3-7.7) k/uL Lymphocytes # (1.0-4.8) k/uL Sodium (137-145) mmol/L Chloride (98-107) mmol/L Carbon Dioxide (22-30) mmol/L BUN (9-20) mg/dL Creatinine (0.66-1.25) mg/dL Glucose (74-99) mg/dL POC Glucose (mg/dL) 254 H 172 H 123 H (70-110) mg/dL Calcium (8.4-10.2) mg/dL 06/16/24 06/16/24 06/16/24 Range/Units 07:21 07:21 11:34 WBC 11.5 H (3.8-10.6) k/uL RBC 2.99 L (4.30-5.90) m/uL Hgb 8.5 L (13.0-17.5) gm/dL Hct 27.5 L (39.0-53.0) % MCHC 30.8 L (31.0-37.0) g/dL Neutrophils # 9.8 H (1.3-7.7) k/uL Lymphocytes # 0.7 L (1.0-4.8) k/uL Sodium 131 L (137-145) mmol/L Chloride 94 L (98-107) mmol/L Carbon Dioxide 35 H (22-30) mmol/L BUN 42 H (9-20) mg/dL Creatinine 4.79 H (0.66-1.25) mg/dL Glucose 111 H (74-99) mg/dL POC Glucose (mg/dL) 199 H (70-110) mg/dL Calcium 8.1 L (8.4-10.2) mg/dL Assessment and Plan (1) Diabetic foot infection Current Visit: Yes Status: Acute Code(s): E11.628 - TYPE 2 DIABETES MELLITUS WITH OTHER SKIN COMPLICATIONS; L08.9 - LOCAL INFECTION OF THE SKIN AND SUBCUTANEOUS TISSUE, UNSP SNOMED Code(s): 583143753 (2) Foot abscess, right Current Visit: Yes Status: Acute Code(s): L02.611 - CUTANEOUS ABSCESS OF RIGHT FOOT SNOMED Code(s): 77154003755026210 Plan: 1patient with a chronic nonhealing wound on the plantar aspect of the right foot now with evidence of significant foul-smelling drainage and fluctuation concerning for an abscess with the x-ray suggestive of possible gas-forming pathogen we will need to cover for the polymicrobial birdie associated with diabetic foot infection. 2patient with acute on chronic kidney insufficiency and high risk of vancomycin toxicity 3Case has been discussed in detail with the vascular surgeon on the phone as the patient will need emergent surgery for drainage of this abscess and deep culture also discussed with the admitting medical team physician on the phone 4patient has been started on Zosyn empirically that will be continued add daptomycin to cover for the gram-positive Prognosis guarded We will follow on clinical condition and cultures to further adjust medication if needed Thank you for this consultation we will follow the patient along with you Dictation was produced using [employer] dictation software. please excuse any grammatical, word or spelling errors. Time with Patient: Greater than 30
--- NOTE | 2024-06-16 16:32 | P.GSCN ---
History of Present Illness History of present illness: 54-year-old diabetic male, has a multiple medical issues including chronic renal failure on dialysis through through the right IJ approach and also has a history of sleep apnea, diabetes obesity I was consulted today for patient has a wound on the plantar aspect patient was seen wound care team on 06/08/2024 on examination right foot has a wound on the plantar aspect with necrotic foul odor smell. Patient was seen in his room patient neck is supple has a right IJ catheter for dialysis Chest patient has a bilateral crackles lung bases. Second sound present Abdomen soft nontender right leg has a brown radiation with the lower extremity plantar aspect the foot there is a infected wound with foul odor smell Plan is to keep the patient n.p.o. midnight we will arrange for debridement and deep culture prognosis guarded Past Medical History Past Medical History: Asthma, Heart Failure, COPD, Diabetes Mellitus, Deep Vein Thrombosis (DVT), Myocardial Infarction ([place]), Sleep Apnea/CPAP/BIPAP, Vascular Disorder Additional Past Medical History / Comment(s): 02/20/16 [place] with cardiac qgnbnz-Bocm-og wore life vest for 7 weeks, 2010 DVT RIGHT leg, bilateral lower leg cellulitis, bilateral varicose veins, PVD, NIDDM type II, BERTRAND with CPAP. UTI Mar 2021, cellulitis with open wounds on bilateral lower legs being treated in wound center p[facility]ak[facility] 2020 Last Myocardial Infarction Date:: 02/20/16 History of Any Multi-Drug Resistant Organisms: MRSA Year Discovered:: 2018 MDRO Source:: bilateral legs Past Surgical History: Heart Catheterization With Stent Additional Past Surgical History / Comment(s): circumcision Additional Past Anesthesia/Blood Transfusion Reaction / Comm: Pt has never had anesthesia Date of Last Stent Placement:: 02/20/16 Past Psychological History: No Psychological Hx Reported Additional Psychological History / Comment(s): He is independent. Smoking Status: Former smoker Past Alcohol Use History: None Reported Additional Past Alcohol Use History / Comment(s): Pt states he started smoking at age 18 yrs and quit 02/20/16. Past Drug Use History: None Reported - Past Family History Father Family Medical History: Coronary Artery Disease (CAD), Diabetes Mellitus, Eye Disorder Additional Family Medical History / Comment(s): Bradycardia, blind. Father is in his early 70's. Mother Family Medical History: Coronary Artery Disease (CAD), Diabetes Mellitus Additional Family Medical History / Comment(s): Benign brain tumor. Mother is in her early 70's Medications and Allergies Home Medications Medication Instructions Recorded Confirmed Type Atorvastatin [Lipitor] 80 mg PO HS #30 tab 02/27/16 06/07/24 Rx Ipratropium/Albuterol Sulfate 1 puff INHALATION RT-QID 01/12/19 06/07/24 History [Combivent Respimat Inhaler] Omeprazole 20 mg PO DAILY 03/14/19 06/07/24 History Aspirin EC [Ecotrin Low Dose] 81 mg PO DAILY 10/17/20 06/07/24 History Fluticasone Propion/Salmeterol 1 puff INHALATION RT-BID 01/15/22 06/07/24 History [Wixela 250-50 Inhub] carvediloL 37.5 mg PO BID-W/MEALS 01/15/22 06/07/24 History Bumetanide [BUMEX] 1 mg PO AC-BID 01/23/24 06/07/24 History Ergocalciferol (Vitamin D2) 1,250 mcg PO Q7D 01/23/24 06/07/24 History [Drisdol (50,000 Iu)] Losartan [Cozaar] 50 mg PO DAILY #60 tab 02/01/24 06/07/24 Rx amLODIPine [Norvasc] 10 mg PO DAILY #90 tab 02/01/24 06/07/24 Rx Insulin Aspart [NovoLOG Flexpen] 6 units SQ AC-TID #1 each 04/18/24 06/07/24 Rx Insulin Glargine,Hum.rec.anlog 55 units SQ BID #2 each 04/18/24 06/07/24 Rx [Lantus Solostar Pen] Allergies Allergy/AdvReac Type Severity Reaction Status Date / Time tetracycline Allergy Rash/Hives Verified 06/07/24 13:55 Surgical - Exam Vital Signs Temp Pulse Resp BP Pulse Ox 99 F 100 20 166/102 96 06/07/24 12:01 06/07/24 12:01 06/07/24 12:01 06/07/24 12:01 06/07/24 12:01 Results - Labs 06/16/24 07:21 06/16/24 07:21 Abnormal Lab Results - Last 24 Hours (Table) 12/04/24 12/05/24 12/05/24 Range/Units 20:19 05:41 07:21 WBC (3.8-10.6) k/uL RBC (4.30-5.90) m/uL Hgb (13.0-17.5) gm/dL Hct (39.0-53.0) % MCHC (31.0-37.0) g/dL Neutrophils # (1.3-7.7) k/uL Lymphocytes # (1.0-4.8) k/uL Sodium 131 L (137-145) mmol/L Chloride 94 L (98-107) mmol/L Carbon Dioxide 35 H (22-30) mmol/L BUN 42 H (9-20) mg/dL Creatinine 4.79 H (0.66-1.25) mg/dL Glucose 111 H (74-99) mg/dL POC Glucose (mg/dL) 172 H 123 H (70-110) mg/dL Calcium 8.1 L (8.4-10.2) mg/dL 06/16/24 06/16/24 Range/Units 07:21 11:34 WBC 11.5 H (3.8-10.6) k/uL RBC 2.99 L (4.30-5.90) m/uL Hgb 8.5 L (13.0-17.5) gm/dL Hct 27.5 L (39.0-53.0) % MCHC 30.8 L (31.0-37.0) g/dL Neutrophils # 9.8 H (1.3-7.7) k/uL Lymphocytes # 0.7 L (1.0-4.8) k/uL Sodium (137-145) mmol/L Chloride (98-107) mmol/L Carbon Dioxide (22-30) mmol/L BUN (9-20) mg/dL Creatinine (0.66-1.25) mg/dL Glucose (74-99) mg/dL POC Glucose (mg/dL) 199 H (70-110) mg/dL Calcium (8.4-10.2) mg/dL Diabetes panel 06/16/24 Range/Units 07:21 Sodium 131 L (137-145) mmol/L Potassium 4.4 (3.5-5.1) mmol/L Chloride 94 L (98-107) mmol/L Carbon Dioxide 35 H (22-30) mmol/L BUN 42 H (9-20) mg/dL Creatinine 4.79 H (0.66-1.25) mg/dL Glucose 111 H (74-99) mg/dL Calcium 8.1 L (8.4-10.2) mg/dL Calcium panel 06/16/24 Range/Units 07:21 Calcium 8.1 L (8.4-10.2) mg/dL Pituitary panel 06/16/24 Range/Units 07:21 Sodium 131 L (137-145) mmol/L Potassium 4.4 (3.5-5.1) mmol/L Chloride 94 L (98-107) mmol/L Carbon Dioxide 35 H (22-30) mmol/L BUN 42 H (9-20) mg/dL Creatinine 4.79 H (0.66-1.25) mg/dL Glucose 111 H (74-99) mg/dL Calcium 8.1 L (8.4-10.2) mg/dL Adrenal panel 06/16/24 Range/Units 07:21 Sodium 131 L (137-145) mmol/L Potassium 4.4 (3.5-5.1) mmol/L Chloride 94 L (98-107) mmol/L Carbon Dioxide 35 H (22-30) mmol/L BUN 42 H (9-20) mg/dL Creatinine 4.79 H (0.66-1.25) mg/dL Glucose 111 H (74-99) mg/dL Calcium 8.1 L (8.4-10.2) mg/dL
[2024-06-16 16:51] LABS: Glucose,Whole Blood 114 mg/dL (70-110)
[2024-06-16 18:08] LABS: Appearance,Urine Turbid (Clear); Bacteria,Urine Occasional /hpf; Bilirubin,Urine Negative (Negative); Blood,Urine Small (Negative); Color,Urine Light Yellow; Glucose,Urine (UA) 2+ (Negative); Ketones,Urine Negative (Negative); Leukocyte Esterase,Urine Moderate (Negative); Mucus,Urine Rare /hpf; Nitrite,Urine Negative (Negative); PH, Urine 5.5 (5.0-8.0); Protein,Urine 2+ (Negative); RBC,Urine 16 /hpf (0-5); Specific Gravity,Urine 1.012 (1.001-1.035); Squamous Epithelial Cell,Urine 1 /hpf (0-4); Urobilinogen,Urine <2.0 mg/dL (<2.0); WBC,Urine 32 /hpf (0-5)
[2024-06-16 20:49] LABS: Glucose,Whole Blood 198 mg/dL (70-110)
[2024-06-17 06:09] LABS: Glucose,Whole Blood 150 mg/dL (70-110)
[2024-06-17 09:39] LABS: Basophils % (A) 0 %; Eosinophils # (A) 0.4 k/uL (0-0.7); Eosinophils % (A) 3 %; HCT 26.3 % (39.0-53.0); HGB 8.1 gm/dL (13.0-17.5); Hypochromasia Marked; Lymphocytes # (A) 0.8 k/uL (1.0-4.8); Lymphocytes % (A) 7 %; MCH 28.1 pg (25.0-35.0); MCV 90.8 fL (80.0-100.0); Mean Platelet Volume 7.9; Monocytes # (A) 0.9 k/uL (0-1.0); Monocytes % (A) 8 %; Neutrophils # (A) 9.9 k/uL (1.3-7.7); Neutrophils % (A) 82 %; Platelet Count 325 k/uL (150-450); RBC 2.89 m/uL (4.30-5.90); RDW 15.3 % (11.5-15.5); WBC 12.1 k/uL (3.8-10.6)
[2024-06-17 09:52] LABS: African American GFR (CKD) 10 (>60 ml/min/1.73 sqM); Anion Gap 7 mmol/L; Blood Urea Nitrogen 58 mg/dL (9-20); Calcium 8.3 mg/dL (8.4-10.2); Carbon Dioxide 28 mmol/L (22-30); Chloride 96 mmol/L (98-107); Glucose 108 mg/dL (74-99); Non-African American GFR(CKD) 8 (>60 ml/min/1.73 sqM); Potassium 4.6 mmol/L (3.5-5.1); Sodium 131 mmol/L (137-145)
--- NOTE | 2024-06-17 10:23 | XR ---
EXAMINATION TYPE: XR chest 1V portable DATE OF EXAM: 06/17/2024 COMPARISON: 07-05 CLINICAL INDICATION: Male, 54 years old with history of SOB; TECHNIQUE: Single frontal view of the chest is obtained. FINDINGS: There right jugular central venous catheter tip is in the SVC/RA junction and is unchanged. There is no change in the cardiomegaly and mild pulmonary vascular congestion. There is no large pleu ral effusion and no pneumothorax. The osseous structures are intact IMPRESSION: Mild acute cardiopulmonary disease with no significant interval change. [facility], , 06/17/2024 10:21 AM
--- NOTE | 2024-06-17 10:45 | P.PN ---
Subjective Patient is seen in follow-up for acute kidney injury on chronic kidney disease. Started on hemodialysis June 13, 2024. Urine output documented as 425 cc so far today. On IV Lasix. Vital signs are stable. General: No acute distress. HEENT: Head exam is unremarkable. On nasal cannula. LUNGS: No audible rhonchi or wheezes. HEART: Rate and Rhythm are regular. ABDOMEN: Obese, nontender. EXTREMITITES: Lower extremities wrapped. 1+ edema. Chronic changes noted right lower extremity. Objective - Vital Signs Vital signs: Vital Signs Temp 98.6 F 06/16/24 19:36 Pulse 72 06/17/24 08:43 Resp 20 06/17/24 03:25 BP 117/73 06/17/24 03:25 Pulse Ox 88 L 06/17/24 08:44 FiO2 21 06/17/24 08:44 Intake & Output 06/16/24 06/17/24 06/17/24 18:59 06:59 18:59 Intake Total 374 100 Output Total 425 Balance 374 -325 Weight 165 kg Intake: IV 20 100 Invasive Line 4 20 Piperacillin-Tazobactam 3 100 .375 gm In Sodium Chloride 0.9% 100 ml @ 25 mls/hr IVPB Q12HR [facility] Rx #:[id number] Oral 354 Output: Urine 425 Other: Voiding Method Indwelling Catheter Indwelling Catheter - Labs CBC & Chem 7: 06/17/24 08:24 06/17/24 08:24 Labs: Abnormal Lab Results - Last 24 Hours (Table) 06/16/24 06/16/24 06/16/24 Range/Units 11:34 16:45 17:52 WBC (3.8-10.6) k/uL RBC (4.30-5.90) m/uL Hgb (13.0-17.5) gm/dL Hct (39.0-53.0) % Neutrophils # (1.3-7.7) k/uL Lymphocytes # (1.0-4.8) k/uL Sodium (137-145) mmol/L Chloride (98-107) mmol/L BUN (9-20) mg/dL Creatinine (0.66-1.25) mg/dL Glucose (74-99) mg/dL POC Glucose (mg/dL) 199 H 114 H (70-110) mg/dL Calcium (8.4-10.2) mg/dL Urine Protein 2+ H (Negative) Urine Glucose (UA) 2+ H (Negative) Urine Blood Small H (Negative) Ur Leukocyte Esterase Moderate H (Negative) Urine RBC 16 H (0-5) /hpf Urine WBC 32 H (0-5) /hpf Urine WBC Clumps Few H (None) /hpf Urine Bacteria Occasional H (None) /hpf Urine Mucus Rare H (None) /hpf 06/16/24 06/17/24 06/17/24 Range/Units 20:45 06:08 08:24 WBC (3.8-10.6) k/uL RBC (4.30-5.90) m/uL Hgb (13.0-17.5) gm/dL Hct (39.0-53.0) % Neutrophils # (1.3-7.7) k/uL Lymphocytes # (1.0-4.8) k/uL Sodium 131 L (137-145) mmol/L Chloride 96 L (98-107) mmol/L BUN 58 H (9-20) mg/dL Creatinine 6.77 H (0.66-1.25) mg/dL Glucose 108 H (74-99) mg/dL POC Glucose (mg/dL) 198 H 150 H (70-110) mg/dL Calcium 8.3 L (8.4-10.2) mg/dL Urine Protein (Negative) Urine Glucose (UA) (Negative) Urine Blood (Negative) Ur Leukocyte Esterase (Negative) Urine RBC (0-5) /hpf Urine WBC (0-5) /hpf Urine WBC Clumps (None) /hpf Urine Bacteria (None) /hpf Urine Mucus (None) /hpf 06/17/24 Range/Units 08:24 WBC 12.1 H (3.8-10.6) k/uL RBC 2.89 L (4.30-5.90) m/uL Hgb 8.1 L (13.0-17.5) gm/dL Hct 26.3 L (39.0-53.0) % Neutrophils # 9.9 H (1.3-7.7) k/uL Lymphocytes # 0.8 L (1.0-4.8) k/uL Sodium (137-145) mmol/L Chloride (98-107) mmol/L BUN (9-20) mg/dL Creatinine (0.66-1.25) mg/dL Glucose (74-99) mg/dL POC Glucose (mg/dL) (70-110) mg/dL Calcium (8.4-10.2) mg/dL Urine Protein (Negative) Urine Glucose (UA) (Negative) Urine Blood (Negative) Ur Leukocyte Esterase (Negative) Urine RBC (0-5) /hpf Urine WBC (0-5) /hpf Urine WBC Clumps (None) /hpf Urine Bacteria (None) /hpf Urine Mucus (None) /hpf Assessment and Plan Plan: Assessment: 1. Acute kidney injury secondary to ATN secondary to cardiorenal syndrome as well as contrast associated acute kidney injury. Patient received IV contrast on June 07, 2024. Creatinine 1.8 on admission and is up to 5.69 dated June 13, 2024. Kidney ultrasound showed no evidence of hydronephrosis. Started on hemodialysis June 13, 2024 via temporary right IJ catheter. 2. Chronic kidney disease stage IIIb with baseline creatinine 1.8-2 secondary to diabetic kidney disease. 3. Acute on chronic systolic CHF ejection fraction of 30 to 35%. 4. Diabetes mellitus. 5. Anemia of chronic kidney disease. Iron deficiency noted. Status post IV iron. On Aranesp. 6. Hypervolemic hyponatremia. Stable. 7. Volume overload. Improving with diuresis and ultrafiltration. 8. Chronic kidney disease mineral bone disease. Phosphorus level 8.0 dated June 14, 2024. On PhosLo. Plan: Last hemodialysis June 15, 2024. Creatinine up to 6.77 today. Plan for hemodialysis today and again tomorrow. Maintain IV Lasix. Continue to hold Cozaar. Avoid nephrotoxins. Okay to DC Hamilton catheter and use external catheter to monitor urine output. Monitor for renal recovery. Outpatient dialysis being set up by medical case manager. If no improvement in renal function in the next 2 to 3 days, will need permacath placed and removal of temporary dialysis catheter.
--- NOTE | 2024-06-17 10:51 | P.PN ---
Subjective Progress Note Date: 06/17/24 54-year-old male with a PMH of systolic CHF (EF 20 to 25%), asthma, COPD, diabetes mellitus, and CKD 3B presents with complaints of shortness of breath. Reports 3 weeks ago he started feeling shortness of breath, and states that this time he went to an urgent care where he was prescribed steroids and azithromycin which he reports he finished antibiotic course and steroids. States after completing this he felt slightly better but still had shortness of breath. Notes during this time he has had to sleep sitting on the edge of the bed, admits to orthopnea. States that shortness of breath gets worse on exertion. Admits to seeing increased swelling in his lower extremities compared to before this all started. Of note during recent admission he was treated for foot ulcers, which she reports he follows consistently with wound care outpatient. Admits to a mild cough but denies any sputum production. Denies fever, chills, headache, chest pain, palpitations, nausea, vomiting, diarrhea, constipation. Labs: WBC 12.9, hemoglobin 12.3, D-dimer 1.34, sodium 129, BUN 28, creatinine 1.8, glucose 254, troponin 0.01, BNP 12,200, and viral respiratory panel all negative. Imaging: - EKG done in the ER showed heart rate of 94 bpm, sinus rhythm, possible left atrial enlargement, and QTc 406. - ER CXR: No acute cardiopulmonary disease/process. - ER CTA chest: No evidence of PE, bronchial wall thickening, left upper lung pulmonary nodule measuring 8 mm, hepatic steatosis - CXR from 06/10 independently interpreted shows improved congestion -Echo left ventricular ejection fraction estimated 30 to 35% with severely increased diastolic volume. Severe global hypokinesis of the left ventricle. 06/08/2024 patient seen and examined at bedside. Patient noted that his shortness of breath is improved and only occurs on exertion such as walking. He denies chest pain, calf tenderness, cough, subjective fevers, chills, nausea vomiting, or diarrhea. WBC 9.9 hemoglobin 10.3 platelet count 2 25,000 sodium 134 potassium 3.8 chloride 101 bicarb 30 BUN 30 creatinine 2.14 glucose 131 calcium 7.9 magnesium 2 AST 46 ALT 13 ALP 75 troponin peaked at 0.08 albumin 2.1. Echo left ventricular ejection fraction estimated 30 to 35% with severely increased diastolic volume. Severe global hypokinesis of the left ventricle. 06/09/2024 patient seen and examined at bedside. Patient noted to have improved shortness of breath better than yesterday. No acute events overnight. WBC 15.3 hemoglobin 10.3 platelet count 204,000 sodium 132 potassium 4.2 chloride 100 bicarb 26 BUN 37 creatinine 2.64 glucose 178 calcium 8 06/10/2024 patient seen and examined at bedside. Patient reported that they still experience shortness of breath on exertion. He also reported that they feel they have a lot of wheezing today. No acute events overnight. WBC 14.6 hemoglobin 9.1 MCV 9.8 platelet count 189,000 sodium 129 potassium 4.3 chloride 100 BUN 44 creatinine 3.01 glucose 196 calcium 7.7. CXR from 06/10 independently interpreted shows improved congestion. Ultrasound of the bladder shows no obstruction. 06/11/2024 patient seen and examined at bedside. Patient reported that he still experiences some shortness of breath. No acute events overnight. WBC 17.9 hemoglobin 9.1 platelet count 09/01/1999 sodium 132 potassium 4.1 chloride 100 BUN 49 creatinine 3.42 glucose 116 calcium 8 06/12/2024 patient seen and examined at bedside. No acute events overnight. No new complaints. Cr significantly worsening. Nephrology on board. Tanya is < 20. 06/13/2024 patient seen and examined at bedside. No acute events overnight. Patient has no new complaints. WBC 11.5 hemoglobin 8.4 sodium 130 BUN 67 creatinine 5.69 glucose 174 calcium 7.7 magnesium 2.4 06/14/2024 patient seen and examined at bedside. No acute events overnight. Patient had no new complaints. WBC 10.8 hemoglobin 8.3 platelet count 268,000 sodium 129 potassium 4.5 chloride 96 BUN 16 creatinine 5.5 glucose 188 calcium 7.8 phosphorus 8 magnesium 2.3 06/15/2024 patient seen and examined at bedside. No acute events overnight. Patient reported complaining of discomfort with the Hamilton catheter. WBC 11.8 hemoglobin 8.2 platelet count 272,000 sodium 130 potassium 4.3 chloride 95 BUN 54 creatinine 5.4 glucose 201 calcium 7.8. Fuid balance -2 990 mL hemodialysis 1.5 L taken UO 775mL 06/16/2024 patient seen and examined at bedside. Patient reported to have some confusion overnight. Also that he slept most of the day. No new complaints. WBC 11.5 hemoglobin 8.5 sodium 131 potassium 4.4 bicarb 35 BUN 42 creatinine 4.79 glucose 111 calcium 8.1 ALEKS balance -3848 mL urine output 775 mL. 06/17/2024 patient seen and examined at bedside. Patient has no new complaints. Patient reported to have some confusion in the middle of the night. ALEKS -3 730 mL urine output 750 mL. Still on a Hamilton. Urinalysis so moderate leukocyte esterase, +2 glucose, +2 protein negative nitrates occasional bacteria. WBC 12.1 hemoglobin 8.1 platelet count 325 sodium 131 potassium 4.6 chloride 96 bicarb 28 BUN 58 creatinine 6.77 glucose 108 calcium 8.3 magnesium 2. Right foot x-ray noted to have soft tissue swelling and gas, negative for osteomyelitis, no fracture or dislocation. Gen: In NAD, non-toxic, on 3L NC HEENT: normocephalic, atraumatic, hearing acuity is intant, mucous membranes moist CVS: perfusing all extremities well, bilateral pitting edema Respiratory: symmetric chest expansion, no accessory muscle use GI: soft, NTTP, ND : no suprapubic tenderness, no CVA tenderness MSK/Derm: no rashes, cyanosis, chronic wound wrapped in bandaging (ulcers), right foot with noted today with whitish discharge and surrounding erythema of the skin, pedal edema appreciated, trace to 1+ pitting edema up to the mid calf noted on bilateral lower extremities Neuro: CN II-XII intact, no motor weakness Psych: cooperative, euthymic mood, judgment and insight is intact Assessment/Plan: #CHAVO on CKD stage IIIb secondary to cardiorenal syndrome, improving -Currently BUN 58 creatinine 6.77 -Baseline creatinine 1.69-2.2 -Monitor UO. On Hamilton catheter -Continue to monitor daily BMP -Discussed management with nephrology. Tram malin. Dialysis today. Started on Phoslo and Aranesp. IV Lasix 60 mg twice daily. Will likely need outpatient dialysis. #Acute on chronic hypoxic respiratory failure secondary to CHF exacerbation, improving #Acute on chronic systolic CHF (EF 20 to 25%), NYHA class III, improving #COPD without exacerbation #Hypervolemic hyponatremia, stable -Cardiac monitoring -Fluid restrict to 2 L daily -Daily weights -Strict I's and O's. ALEKS -3 730 mL urine output 750 mL -O2 NC as needed -Ordered DuoNeb 3 ml every 2 hours as needed for shortness of breath or wheezing -Nephrology following. Hemodialysis Thursday schedule. -IV Lasix 60 mg twice daily -Cardiology following -GDMT: - coreg - losartan held due to CHAVO - not on mineralocorticoid, farxiga due to kidney dysfunction # Chronic right foot wound rule out infection Right foot wound today has purulent discharge with erythema surrounding skin Patient being seen at home wound care. -Consult wound care -Right foot x-ray noted to have soft tissue swelling and gas, negative for osteomyelitis, no fracture or dislocation -Initiated Zosyn IVPB every 8 hours -Infectious disease consulted. Added daptomycin 700 mg IVPB every 48 hours -Vascular surgery consulted for I&D today. #Purulent discharge around Hamilton catheter Patient reported Hamilton catheter irritation. Today developed whitish discharge around Hamilton catheter area. Patient was afebrile and hemodynamically stable -Urinalysis showed moderate leukocyte esterase, +2 glucose, +2 protein negative nitrates occasional bacteria -Continue with Zosyn and daptomycin #Leukocytosis, r/o infection -WBC 12.1 today. Patient is afebrile and has not developed any new symptoms. -Will continue to monitor #Anemia of chronic disease superimposed with iron deficiency, stable -Iron 9 TIBC 1 9 8% saturation 4.74 transferrin 136 ferritin 541 -Discontunued Ferrlecit 125 mg IVPB daily Chronic Conditions: #Diabetes mellitus, controlled -Hold home medications -Insulin NovoLog sliding scale medium dose ACHS -Accu-Cheks ACHS -Continue home NovoLog 8 units subcu ACHS -levemir 55 units at bedtime #Hypertension -Hold amlodipine and losartan for now F: Oral intake. Restrict to 2 L fluid E: None N: Heart healthy diet with fluid restriction to 2 L DVT prophylaxis: Heparin 5000 units SQ every 8 hours GI prophylaxis: Home omeprazole 20 mg p.o. daily I saw and evaluated the patient during the fernández and critical portions of this encounter, and discussed the case in detail with the resident author of this note, I agree with the Assessment and Plan, and my changes, if any, are noted below. Plans for HD today. Plans for I&D of R foot wound with foul smelling discharge. Maintained on Zosyn and Daptomycin (D2). Discussed with [facility], looking into options for placement/SNF. Objective - Vital Signs Vital signs: Vital Signs Temp 98.6 F 06/16/24 19:36 Pulse 72 06/17/24 08:43 Resp 20 06/17/24 03:25 BP 117/73 06/17/24 03:25 Pulse Ox 88 L 06/17/24 08:44 FiO2 21 06/17/24 08:44 Intake & Output 06/16/24 06/17/24 06/17/24 18:59 06:59 18:59 Intake Total 374 100 Output Total 425 Balance 374 -325 Weight 165 kg Intake: IV 20 100 Invasive Line 4 20 Piperacillin-Tazobactam 3 100 .375 gm In Sodium Chloride 0.9% 100 ml @ 25 mls/hr IVPB Q12HR [facility] Rx #:[id number] Oral 354 Output: Urine 425 Other: Voiding Method Indwelling Catheter Indwelling Catheter - Labs CBC & Chem 7: 06/17/24 08:24 06/17/24 08:24 Labs: Abnormal Lab Results - Last 24 Hours (Table) 06/16/24 06/16/24 06/16/24 Range/Units 11:34 16:45 17:52 POC Glucose (mg/dL) 199 H 114 H (70-110) mg/dL Urine Protein 2+ H (Negative) Urine Glucose (UA) 2+ H (Negative) Urine Blood Small H (Negative) Ur Leukocyte Esterase Moderate H (Negative) Urine RBC 16 H (0-5) /hpf Urine WBC 32 H (0-5) /hpf Urine WBC Clumps Few H (None) /hpf Urine Bacteria Occasional H (None) /hpf Urine Mucus Rare H (None) /hpf 06/16/24 06/17/24 Range/Units 20:45 06:08 POC Glucose (mg/dL) 198 H 150 H (70-110) mg/dL Urine Protein (Negative) Urine Glucose (UA) (Negative) Urine Blood (Negative) Ur Leukocyte Esterase (Negative) Urine RBC (0-5) /hpf Urine WBC (0-5) /hpf Urine WBC Clumps (None) /hpf Urine Bacteria (None) /hpf Urine Mucus (None) /hpf
[2024-06-17] MEDS: IV FLUID CONTINUATION 1,000 ML IV ONE (11:09)
[2024-06-17 11:37] LABS: Glucose,Whole Blood 103 mg/dL (70-110)
--- NOTE | 2024-06-17 12:02 | P.PN ---
Subjective Progress Note Date: 06/17/24 HISTORY OF PRESENT ILLNESS: This is a 54-year-old male with a past medical history significant for richard estive heart failure, cardiomyopathy, severe LVH, chronic lower extremity edema, peripheral arterial disease, coronary artery disease, V-fib arrest, severe obstructive sleep apnea, chronic kidney disease, diabetes, and obesity. Patient follows in the office with Dr. Stinson. We have been asked to see the patient in consultation for congestive heart failure. Patient examined at the bedside in the emergency room. Patient presented to the hospital with a chief complaint of shortness of breath. Patient states he has been feeling short of breath for the past few days. He denies any chest pain or pressure. Patient was found to be in acute CHF and was started on IV diuretics. He reports improvement in his shortness of breath but states he still is short of breath with exertion. Vital signs are stable. Patient states he is a non-smoker. DIAGNOSTICS: - EKG reveals sinus mechanism with nonspecific ST-T wave changes - Chest xray negative for acute process - Chest CTA: Negative for pulmonary embolism, bronchial wall thickening correlate for bronchitis, left upper lobe pulmonary nodule, and hepatic steatosis - Laboratory data: WBC 12.9. Hemoglobin 12.3. Platelet count 270. D-dimer 1.34. Sodium 129. Potassium 4.8. BUN 28. Creatinine 1.8. BNP 12,200. Troponin 0.081. 0.087. 0.080. - Current home cardiac medications include Bumex 1 mg twice a day, Lipitor 80 mg at night, aspirin 81 mg daily, losartan 50 mg daily, amlodipine 10 mg daily, carvedilol 35.7 mg twice a day. - Most recent echocardiogram obtained in February 2024 revealed ejection fraction 3035%, inferior and inferior lateral wall hypokinesis, severe LVH, moderate MR, mild TR -Patient underwent Lexiscan stress test in January 2024 revealing severe intensity large sized fixed perfusion defect involving inferior and inferior lateral wall, EF 30% - Cardiac catheterization history: 2016 with stenting to the circumflex in the setting of acute inferior STEMI 06/09/2024 Patient examined this morning at the bedside. Patient currently denies any chest pain or pressure. He denies any shortness of breath at rest. He states he has not been out of bed a whole lot yet to assess his shortness of breath with exertion. He remains on IV Bumex 2 mg every 12 hours. He continues to have lower extremity edema although improving. He is currently on room air. Creatinine today increased to 2.64. Echocardiogram completed revealing ejection fraction 30 to 35% with severe global hypokinesis of left ventricle 06/10/2024 Patient examined this morning at the bedside. Patient currently denies any chest pain or pressure. He reports his breathing this morning feels " so-so". He does report wheezing this morning as well and is inquiring about steroids. Patient's creatinine today is worsened at 3.01. He is maintained on Bumex 1 mg twice a day. Vital signs are stable. Blood pressure 113/73. 06/11/2024 Patient examined this morning at the bedside. Patient reports mild shortness of breath. He denies chest pain or pressure. Patient's creatinine is worsened today at 3.42. Vital signs are stable. Telemetry reveals sinus mechanism. 06/12/2024 Patient examined this morning at the bedside. Patient states he feels tired today. He has not been out of bed yet. He denies chest pain or pressure. He states his breathing feels about the same as yesterday. Patient's creatinine is worsened today at 4.53. His Bumex and Farxiga have been discontinued since yesterday. 06/13/24 Patient seen and examined. This morning, patient is very upset because he had a Hamilton catheter placed. He is followed by nephrology. Blood pressure 142/81, heart rate in the 80s, pulse ox 96% on 2 L nasal cannula. Repeat blood work reveals hemoglobin 8.4, sodium 130, BUN 67 creatinine 5.69. Renal function has been worsening each day. Chest x-ray reveals cardiomegaly with mild pulmonary vascular congestion. 06/14/24 Patient seen and examined. Due to worsening renal function, a right IJ catheter was placed by Dr. Sanchez and patient started hemodialysis yesterday. He is scheduled for repeat dialysis today. Patient denies having any chest pain. No palpitations. Blood pressure 136/79, heart rate in the 60s and 70s, pulse ox 96% on 3 L nasal cannula. Repeat blood work reveals hemoglobin of 8.3, sodium 129, potassium 4.5, BUN 68 and creatinine 5.5. Chest x-ray reveals catheter tip in SVC right junction. No pneumothorax. Cardiomegaly with mild pulmonary vascular congestion. 06/15/24 Patient seen and examined. No new concerns from the patient. No chest pain. Blood pressure 136/79, heart rate 75, pulse ox 91% on 3 L nasal cannula. Repeat blood work reveals hemoglobin 8.2, WBC 11.8, BUN 54 creatinine 5.4. Patient has been continued on hemodialysis and maintaining Thursday schedule. He remains on IV Lasix managed by nephrology. 06/16/24 Patient seen and examined. Patient denies having any chest pain, no shortness of breath. He has not been out of bed. Blood pressure 129/76, heart rate 71, pulse ox 96% on 3 L nasal cannula. Repeat blood work reveals WBC 11.5, hemoglobin 8.5, BUN 42 creatinine 4.79, sodium 131. Patient is scheduled for hemodialysis tomorrow and nephrology is maintaining him on IV Lasix 06/17/24 Patient is seen and examined. Blood pressure 102/70, heart rate 67, pulse ox 96% on 3 L nasal cannula. He has been maintained on dialysis with plan for dialysis today and tomorrow and also maintained on IV Lasix per nephrology. Nephrology is recommending to continue to hold losartan. Patient is followed by infectious disease and started on daptomycin, continued on Zosyn PHYSICAL EXAM: VITAL SIGNS: Reviewed. GENERAL: Well-developed in no acute distress. HEENT: Head is normocephalic. Pupils are equal, round. Sclerae anicteric. Mucous membranes of the mouth are moist. Neck supple. No JVD or thyromegaly LUNGS: Respirations even and unlabored. Lungs diminished bilaterally HEART: Regular rate and rhythm. S1 and S2 heard. ABDOMEN: Soft. Nondistended. Nontender. EXTREMITIES: Normal range of motion. No clubbing or cyanosis. Peripheral pulses intact. Bilateral lower extremity edema noted. NEUROLOGIC: Awake and alert. Oriented x 3. ASSESSMENT: Shortness of breath Acute on chronic heart failure with reduced EF, 30-35% Acute kidney injury and chronic kidney disease stage III, started HD on 06/13 Hyponatremia Elevated troponins, type II CA secondary to oxygen supply/demand mismatch Coronary artery disease with previous stenting to the circumflex, 2016 History of V-fib cardiac arrest, 2016 Peripheral arterial disease Chronic nonhealing wound right foot, followed by ID Ischemic cardiomyopathy, EF 30-35% Chronic lower extremity edema Severe concentric LVH Obstructive sleep apnea Diabetes Morbid obesity: BMI 54.5 PLAN: Nephrology following and patient started on hemodialysis 06/13. Continue cardiac medications: Aspirin 81 mg daily, atorvastatin 80 mg at bedtime--discontinued while on daptomycin, Coreg 37.5 mg twice daily Nephrology managing diuretics, patient on Lasix 60 mg every 12 hours Daily weights, accurate intake and output, and monitoring of kidney function Further recommendations pending patient course Nurse practitioner note has been reviewed by physician. Signing provider agrees with the documented findings, assessment, and plan of care documented by GROUP CONTR[employer]ER as a scribe. Objective - Vital Signs Vital signs: Vital Signs Temp 97.5 F L 06/17/24 11:20 Pulse 64 06/17/24 11:20 Resp 21 06/17/24 11:20 BP 128/71 06/17/24 11:20 Pulse Ox 92 L 06/17/24 11:20 FiO2 21 06/17/24 08:44 Intake & Output 06/16/24 06/17/24 06/17/24 18:59 06:59 18:59 Intake Total 374 100 Output Total 425 Balance 374 -325 Weight 165 kg Intake: IV 20 100 Invasive Line 4 20 Piperacillin-Tazobactam 3 100 .375 gm In Sodium Chloride 0.9% 100 ml @ 25 mls/hr IVPB Q12HR [facility] Rx #:[id number] Oral 354 Output: Urine 425 Other: Voiding Method Indwelling Catheter Indwelling Catheter Indwelling Catheter - Labs CBC & Chem 7: 06/17/24 08:24 06/17/24 08:24 Labs: Abnormal Lab Results - Last 24 Hours (Table) 06/16/24 06/16/24 06/16/24 Range/Units 16:45 17:52 20:45 WBC (3.8-10.6) k/uL RBC (4.30-5.90) m/uL Hgb (13.0-17.5) gm/dL Hct (39.0-53.0) % Neutrophils # (1.3-7.7) k/uL Lymphocytes # (1.0-4.8) k/uL Sodium (137-145) mmol/L Chloride (98-107) mmol/L BUN (9-20) mg/dL Creatinine (0.66-1.25) mg/dL Glucose (74-99) mg/dL POC Glucose (mg/dL) 114 H 198 H (70-110) mg/dL Calcium (8.4-10.2) mg/dL Urine Protein 2+ H (Negative) Urine Glucose (UA) 2+ H (Negative) Urine Blood Small H (Negative) Ur Leukocyte Esterase Moderate H (Negative) Urine RBC 16 H (0-5) /hpf Urine WBC 32 H (0-5) /hpf Urine WBC Clumps Few H (None) /hpf Urine Bacteria Occasional H (None) /hpf Urine Mucus Rare H (None) /hpf 06/17/24 06/17/24 06/17/24 Range/Units 06:08 08:24 08:24 WBC 12.1 H (3.8-10.6) k/uL RBC 2.89 L (4.30-5.90) m/uL Hgb 8.1 L (13.0-17.5) gm/dL Hct 26.3 L (39.0-53.0) % Neutrophils # 9.9 H (1.3-7.7) k/uL Lymphocytes # 0.8 L (1.0-4.8) k/uL Sodium 131 L (137-145) mmol/L Chloride 96 L (98-107) mmol/L BUN 58 H (9-20) mg/dL Creatinine 6.77 H (0.66-1.25) mg/dL Glucose 108 H (74-99) mg/dL POC Glucose (mg/dL) 150 H (70-110) mg/dL Calcium 8.3 L (8.4-10.2) mg/dL Urine Protein (Negative) Urine Glucose (UA) (Negative) Urine Blood (Negative) Ur Leukocyte Esterase (Negative) Urine RBC (0-5) /hpf Urine WBC (0-5) /hpf Urine WBC Clumps (None) /hpf Urine Bacteria (None) /hpf Urine Mucus (None) /hpf
[2024-06-17] MEDS ORDERED: MIDAZOLAM 2 MG/2 ML VIAL ONE (13:13)
[2024-06-17] MEDS ORDERED: KETAMINE HCL IN 0.9 % NACL 50 MG/5 ML SYRINGE ONE (13:13)
[2024-06-17] MEDS ORDERED: fentaNYL (PF) 50 MCG/ML 2 ML AMP ONE (13:13)
[2024-06-17] MEDS ORDERED: GLYCOPYRROLATE 0.2 MG/ML 2 ML VIAL ONE (13:13)
[2024-06-17] MEDS: LIDOCAINE 1% INJ 10MG/ML (20 ML MDV) SQ ONE (13:39)
--- NOTE | 2024-06-17 13:58 | P.PCN ---
Description of Procedure: Preop diagnosis is necrotic wound right foot plantar aspect measurement is 6 x 5 cm with foul odor smell Postop same measurement is 6 x 6 x 2 cm graft Procedure patient brought to the operating room this patient has a necrotic wound on the plantar aspect the right foot with foul odor smell and patient has history of obesity right foot was prepped and draped in Prestel manner 1% lidocaine with IV sedation incision was made on the plantar aspect of the foot deepened through skin fat fascia and the tendons they are all necrotic they were excised with a sharp knife to tissue was sent for deep culture all the necrotic tissue was excised and sent from bleeding point which were all electrocoagulated was copiously irrigated with hydroperoxide saline Betadine bleeding point well- controlled and wound VAC was placed patient transferred to the recovery room in satisfied condition prognosis is guarded
[2024-06-17 14:23] LABS: Glucose,Whole Blood 102 mg/dL (70-110)
--- NOTE | 2024-06-17 14:50 | P.PN ---
Subjective Progress Note Date: 06/17/24 Principal diagnosis: Reason for follow-up is right diabetic foot infection Patient is a 54-year-old male with a past medical history significant for COPD diabetes mellitus [place] sleep apnea presenting the hospital initially for evaluation of increasing shortness of breath patient also have a right diabetic foot ulcer being treated by the wound care noticed to have worsening diagnosed with an abscess prompting this consultation patient is status post extensive surgical debridement which was sent down to the fascia and tendon. On today's evaluation that is 06/17/2024, the patient continues to be afebrile, the patient is on 3 L current oxygen and breathing comfortably, the Pt denies having any chest pain or cough, the patient denies having any abdominal pain no vomiting or any diarrhea pain to the right foot is currently controlled. Patient white count is 12.1, creatinine 6.77 cultures pending Objective - Vital Signs Vital signs: Vital Signs Temp 97.5 F L 06/17/24 11:20 Pulse 64 06/17/24 11:20 Resp 21 06/17/24 11:20 BP 128/71 06/17/24 11:20 Pulse Ox 92 L 06/17/24 11:20 FiO2 21 06/17/24 08:44 Intake & Output 06/16/24 06/17/24 06/17/24 18:59 06:59 18:59 Intake Total 374 100 Output Total 425 Balance 374 -325 Weight 165 kg Intake: IV 20 100 Invasive Line 4 20 Piperacillin-Tazobactam 3 100 .375 gm In Sodium Chloride 0.9% 100 ml @ 25 mls/hr IVPB Q12HR [facility] Rx #:[id number] Oral 354 Output: Urine 425 Other: Voiding Method Indwelling Catheter Indwelling Catheter Indwelling Catheter - Exam GENERAL DESCRIPTION: Middle-age male lying in bed in no distress RESPIRATORY SYSTEM: Unlabored breathing , decreased breath sounds at bases HEART: S1 S2 regular rate and rhythm , ABDOMEN: Soft , no tenderness EXTREMITIES: Right foot is currently dressed - Labs CBC & Chem 7: 06/17/24 08:24 06/17/24 08:24 Labs: Abnormal Lab Results - Last 24 Hours (Table) 06/16/24 06/16/24 06/16/24 Range/Units 16:45 17:52 20:45 WBC (3.8-10.6) k/uL RBC (4.30-5.90) m/uL Hgb (13.0-17.5) gm/dL Hct (39.0-53.0) % Neutrophils # (1.3-7.7) k/uL Lymphocytes # (1.0-4.8) k/uL Sodium (137-145) mmol/L Chloride (98-107) mmol/L BUN (9-20) mg/dL Creatinine (0.66-1.25) mg/dL Glucose (74-99) mg/dL POC Glucose (mg/dL) 114 H 198 H (70-110) mg/dL Calcium (8.4-10.2) mg/dL Urine Protein 2+ H (Negative) Urine Glucose (UA) 2+ H (Negative) Urine Blood Small H (Negative) Ur Leukocyte Esterase Moderate H (Negative) Urine RBC 16 H (0-5) /hpf Urine WBC 32 H (0-5) /hpf Urine WBC Clumps Few H (None) /hpf Urine Bacteria Occasional H (None) /hpf Urine Mucus Rare H (None) /hpf 06/17/24 06/17/24 06/17/24 Range/Units 06:08 08:24 08:24 WBC 12.1 H (3.8-10.6) k/uL RBC 2.89 L (4.30-5.90) m/uL Hgb 8.1 L (13.0-17.5) gm/dL Hct 26.3 L (39.0-53.0) % Neutrophils # 9.9 H (1.3-7.7) k/uL Lymphocytes # 0.8 L (1.0-4.8) k/uL Sodium 131 L (137-145) mmol/L Chloride 96 L (98-107) mmol/L BUN 58 H (9-20) mg/dL Creatinine 6.77 H (0.66-1.25) mg/dL Glucose 108 H (74-99) mg/dL POC Glucose (mg/dL) 150 H (70-110) mg/dL Calcium 8.3 L (8.4-10.2) mg/dL Urine Protein (Negative) Urine Glucose (UA) (Negative) Urine Blood (Negative) Ur Leukocyte Esterase (Negative) Urine RBC (0-5) /hpf Urine WBC (0-5) /hpf Urine WBC Clumps (None) /hpf Urine Bacteria (None) /hpf Urine Mucus (None) /hpf Assessment and Plan (1) Diabetic foot infection Current Visit: Yes Status: Acute Code(s): E11.628 - TYPE 2 DIABETES MELLITUS WITH OTHER SKIN COMPLICATIONS; L08.9 - LOCAL INFECTION OF THE SKIN AND SUBCUTANEOUS TISSUE, UNSP SNOMED Code(s): 519107252 (2) Foot abscess, right Current Visit: Yes Status: Acute Code(s): L02.611 - CUTANEOUS ABSCESS OF RIGHT FOOT SNOMED Code(s): 61227294165929025 Plan: 1patient with a chronic nonhealing wound on the plantar aspect of the right foot now with evidence of significant foul-smelling drainage and fluctuation concerning for an abscess with the x-ray suggestive of possible gas-forming pathogen we will need to cover for the polymicrobial birdie associated with diabetic foot infection. 2patient with acute on chronic kidney insufficiency and high risk of vancomycin toxicity 3patient is status post surgical debridement of the right foot abscess extending down to the fascia and tendon and deep culture which are currently pending 4patient will be treated with Zosyn and daptomycin while waiting for the culture to finalize Dictation was produced using [employer] dictation software. please excuse any grammatical, word or spelling errors. Time with Patient: Less than 30
[2024-06-17] MEDS: INSULIN ASPART (NovoLOG) 100 UNIT/ML VIAL SQ SCH (15:28)
[2024-06-17 16:25] LABS: Glucose,Whole Blood 88 mg/dL (70-110)
[2024-06-17 20:24] LABS: Glucose,Whole Blood 94 mg/dL (70-110)
[2024-06-18 05:38] LABS: Glucose,Whole Blood 108 mg/dL (70-110)
[2024-06-18] MEDS: lisinopriL 5 MG TAB PO SCH (07:44)
[2024-06-18 10:02] LABS: Basophils # (A) 0.04 X 10*3/uL (0.00-0.10); Basophils % (A) 0.3 %; Eosinophils # (A) 0.38 X 10*3/uL (0.04-0.35); Eosinophils % (A) 3.2 %; HCT 25.5 % (39.6-50.0); HGB 7.6 g/dL (13.0-17.0); Lymphocytes # (A) 0.77 X 10*3/uL (0.90-5.00); Lymphocytes % (A) 6.4 %; MCH 27.4 pg (27.0-32.0); MCHC 29.8 g/dL (32.0-37.0); MCV 92.1 FL (80.0-97.0); Mean Platelet Volume 10.4 FL (9.5-12.2); Monocytes # (A) 0.88 X 10*3/uL (0.20-1.00); Monocytes % (A) 7.4 %; NRBC Per 100 WBC 0 X 10*3/uL (0.00-0.01); Neutrophils % (A) 81.9 %; Platelet Count 338 X 10*3/uL (140-440); RBC 2.77 X 10*6/uL (4.40-5.60); WBC 11.97 X 10*3/uL (4.50-10.00)
[2024-06-18 11:58] LABS: Glucose,Whole Blood 159 mg/dL (70-110)
--- NOTE | 2024-06-18 12:40 | P.PN ---
Subjective Progress Note Date: 06/18/24 Patient is seen in follow-up for acute kidney injury on chronic kidney disease. Started on hemodialysis June 13, 2024. Urine output documented as 350 cc past 24hrs. On IV Lasix. Seen while on HD today. Vital signs are stable. General: No acute distress. HEENT: Head exam is unremarkable. On nasal cannula. LUNGS: No audible rhonchi or wheezes. HEART: Rate and Rhythm are regular. ABDOMEN: Obese, nontender. EXTREMITITES: Lower extremities wrapped. 1+ edema. Chronic changes noted right lower extremity. Objective - Vital Signs Vital signs: Vital Signs Temp 36.8 F L 06/18/24 08:45 Pulse 60 06/18/24 09:00 Resp 18 06/18/24 08:45 BP 128/69 06/18/24 08:45 Pulse Ox 96 06/18/24 07:47 FiO2 21 06/17/24 08:44 Intake & Output 06/17/24 06/18/24 06/18/24 18:59 06:59 18:59 Intake Total 942 945 6094 Output Total 7350 2400 Balance 618 -6950 236 Weight 175.1 kg Intake: IV 500 Oral 118 236 Hemodialysis 400 2400 Output: Urine 350 Hemodialysis 3700 400 Hemodialysis Net Amount 3300 2000 Other: Voiding Method Indwelling Catheter Indwelling Catheter - Labs CBC & Chem 7: 06/18/24 04:55 06/17/24 08:24 Labs: Abnormal Lab Results - Last 24 Hours (Table) 06/18/24 Range/Units 04:55 WBC 11.97 H (4.50-10.00) X 10*3/uL RBC 2.77 L (4.40-5.60) X 10*6/uL Hgb 7.6 L (13.0-17.0) g/dL Hct 25.5 L (39.6-50.0) % MCHC 29.8 L (32.0-37.0) g/dL RDW 15.0 H (11.5-14.5) % Immature Gran # 0.10 H (0.00-0.04) X 10*3/uL Neutrophils # 9.80 H (1.80-7.70) X 10*3/uL Lymphocytes # 0.77 L (0.90-5.00) X 10*3/uL Eosinophils # 0.38 H (0.04-0.35) X 10*3/uL Microbiology - Last 24 Hours (Table) 06/16/24 17:52 Urine Culture - Final Urine,Voided Assessment and Plan Assessment: 1. Acute kidney injury secondary to ATN secondary to cardiorenal syndrome as well as contrast associated acute kidney injury. Patient received IV contrast on June 07, 2024. Creatinine 1.8 on admission and is up to 5.69 dated June 13, 2024. Kidney ultrasound showed no evidence of hydronephrosis. Started on hemodialysis June 13, 2024 via temporary right IJ catheter. 2. Chronic kidney disease stage IIIb with baseline creatinine 1.8-2 secondary to diabetic kidney disease. 3. Acute on chronic systolic CHF ejection fraction of 30 to 35%. 4. Diabetes mellitus. 5. Anemia of chronic kidney disease. Iron deficiency noted. Status post IV iron. On Aranesp. 6. Hypervolemic hyponatremia. Stable. 7. Volume overload. Improving with diuresis and ultrafiltration. 8. Chronic kidney disease mineral bone disease. Phosphorus level 8.0 dated June 14, 2024. On PhosLo. Plan: HD yesterday and again today. Making some urine but creatinine rising off HD days. Maintain IV Lasix. Continue to hold Cozaar. Avoid nephrotoxins. Monitor for renal recovery. Outpatient dialysis being set up by embedded case manager. If no improvement in renal function by Thursday, will need permacath placed and removal of temporary dialysis catheter.
--- NOTE | 2024-06-18 13:03 | P.PN ---
Subjective Progress Note Date: 06/18/24 54-year-old male with a PMH of systolic CHF (EF 20 to 25%), asthma, COPD, diabetes mellitus, and CKD 3B presents with complaints of shortness of breath. Reports 3 weeks ago he started feeling shortness of breath, and states that this time he went to an urgent care where he was prescribed steroids and azithromycin which he reports he finished antibiotic course and steroids. States after completing this he felt slightly better but still had shortness of breath. Notes during this time he has had to sleep sitting on the edge of the bed, admits to orthopnea. States that shortness of breath gets worse on exertion. Admits to seeing increased swelling in his lower extremities compared to before this all started. Of note during recent admission he was treated for foot ulcers, which she reports he follows consistently with wound care outpatient. Admits to a mild cough but denies any sputum production. Denies fever, chills, headache, chest pain, palpitations, nausea, vomiting, diarrhea, constipation. Labs: WBC 12.9, hemoglobin 12.3, D-dimer 1.34, sodium 129, BUN 28, creatinine 1.8, glucose 254, troponin 0.01, BNP 12,200, and viral respiratory panel all negative. Imaging: - EKG done in the ER showed heart rate of 94 bpm, sinus rhythm, possible left atrial enlargement, and QTc 406. - ER CXR: No acute cardiopulmonary disease/process. - ER CTA chest: No evidence of PE, bronchial wall thickening, left upper lung pulmonary nodule measuring 8 mm, hepatic steatosis - CXR from 06/10 independently interpreted shows improved congestion -Echo left ventricular ejection fraction estimated 30 to 35% with severely increased diastolic volume. Severe global hypokinesis of the left ventricle. 06/08/2024 patient seen and examined at bedside. Patient noted that his shortness of breath is improved and only occurs on exertion such as walking. He denies chest pain, calf tenderness, cough, subjective fevers, chills, nausea vomiting, or diarrhea. WBC 9.9 hemoglobin 10.3 platelet count 2 25,000 sodium 134 potassium 3.8 chloride 101 bicarb 30 BUN 30 creatinine 2.14 glucose 131 calcium 7.9 magnesium 2 AST 46 ALT 13 ALP 75 troponin peaked at 0.08 albumin 2.1. Echo left ventricular ejection fraction estimated 30 to 35% with severely increased diastolic volume. Severe global hypokinesis of the left ventricle. 06/09/2024 patient seen and examined at bedside. Patient noted to have improved shortness of breath better than yesterday. No acute events overnight. WBC 15.3 hemoglobin 10.3 platelet count 204,000 sodium 132 potassium 4.2 chloride 100 bicarb 26 BUN 37 creatinine 2.64 glucose 178 calcium 8 06/10/2024 patient seen and examined at bedside. Patient reported that they still experience shortness of breath on exertion. He also reported that they feel they have a lot of wheezing today. No acute events overnight. WBC 14.6 hemoglobin 9.1 MCV 9.8 platelet count 189,000 sodium 129 potassium 4.3 chloride 100 BUN 44 creatinine 3.01 glucose 196 calcium 7.7. CXR from 06/10 independently interpreted shows improved congestion. Ultrasound of the bladder shows no obstruction. 06/11/2024 patient seen and examined at bedside. Patient reported that he still experiences some shortness of breath. No acute events overnight. WBC 17.9 hemoglobin 9.1 platelet count 09/01/1999 sodium 132 potassium 4.1 chloride 100 BUN 49 creatinine 3.42 glucose 116 calcium 8 06/12/2024 patient seen and examined at bedside. No acute events overnight. No new complaints. Cr significantly worsening. Nephrology on board. Tanya is < 20. 06/13/2024 patient seen and examined at bedside. No acute events overnight. Patient has no new complaints. WBC 11.5 hemoglobin 8.4 sodium 130 BUN 67 creatinine 5.69 glucose 174 calcium 7.7 magnesium 2.4 06/14/2024 patient seen and examined at bedside. No acute events overnight. Patient had no new complaints. WBC 10.8 hemoglobin 8.3 platelet count 268,000 sodium 129 potassium 4.5 chloride 96 BUN 16 creatinine 5.5 glucose 188 calcium 7.8 phosphorus 8 magnesium 2.3 06/15/2024 patient seen and examined at bedside. No acute events overnight. Patient reported complaining of discomfort with the Hamilton catheter. WBC 11.8 hemoglobin 8.2 platelet count 272,000 sodium 130 potassium 4.3 chloride 95 BUN 54 creatinine 5.4 glucose 201 calcium 7.8. Fuid balance -2 990 mL hemodialysis 1.5 L taken UO 775mL 06/16/2024 patient seen and examined at bedside. Patient reported to have some confusion overnight. Also that he slept most of the day. No new complaints. WBC 11.5 hemoglobin 8.5 sodium 131 potassium 4.4 bicarb 35 BUN 42 creatinine 4.79 glucose 111 calcium 8.1 ALEKS balance -3848 mL urine output 775 mL. 06/17/2024 patient seen and examined at bedside. Patient has no new complaints. Patient reported to have some confusion in the middle of the night. ALEKS -3 730 mL urine output 750 mL. Still on a Hamilton. Urinalysis so moderate leukocyte esterase, +2 glucose, +2 protein negative nitrates occasional bacteria. WBC 12.1 hemoglobin 8.1 platelet count 325 sodium 131 potassium 4.6 chloride 96 bicarb 28 BUN 58 creatinine 6.77 glucose 108 calcium 8.3 magnesium 2. Right foot x-ray noted to have soft tissue swelling and gas, negative for osteomyelitis, no fracture or dislocation. 06/18/2024 patient seen and examined at bedside. No new complaints. No acute events overnight. ALEKS balance -633 2 mL urine output 350 mL. WBC 11.97 hemoglo bin 7.6 platelet count 338,000 Gen: In NAD, non-toxic, on 3L NC HEENT: normocephalic, atraumatic, hearing acuity is intant, mucous membranes moist CVS: perfusing all extremities well, bilateral pitting edema Respiratory: symmetric chest expansion, no accessory muscle use GI: soft, NTTP, ND : no suprapubic tenderness, no CVA tenderness MSK/Derm: no rashes, cyanosis, chronic wound wrapped in bandaging (ulcers), right foot covered with wound VAC today site clean and dry, wound VAC having some output, pedal edema appreciated, trace to 1+ pitting edema up to the mid calf noted on bilateral lower extremities Neuro: CN II-XII intact, no motor weakness Psych: cooperative, euthymic mood, judgment and insight is intact Assessment/Plan: #CHAVO on CKD stage IIIb secondary to cardiorenal syndrome, improving - -Baseline creatinine 1.69-2.2 -Monitor UO. On Hamilton catheter -Continue to monitor daily BMP -Discussed management with nephrology. Tram held. Dialysis today. Started on Phoslo and Aranesp. IV Lasix 60 mg twice daily. Permcath considered if renal function does not improve through the weekend. -SW arranging outpatient dialysis. # Chronic right foot wound rule out infection, status post incision and drainage of right foot, improving right foot covered with wound VAC today site clean and dry, wound VAC having some output Patient being seen at home wound care. -wound care consulted -Right foot x-ray noted to have soft tissue swelling and gas, negative for osteomyelitis, no fracture or dislocation -Wound cultures pending -Continue Zosyn IVPB every 8 hours and daptomycin 700 mg IVPB every 48 hours day 3 -Infectious disease consulted -Vascular surgery consulted. Status post I&D day 1 today #Acute on chronic hypoxic respiratory failure secondary to CHF exacerbation, improving #Acute on chronic systolic CHF (EF 20 to 25%), NYHA class III, improving #COPD without exacerbation #Hypervolemic hyponatremia, stable -Cardiac monitoring -Supportive oxygen as needed -Fluid restrict to 2 L daily -Daily weights -Strict I's and O's -O2 NC as needed -Ordered DuoNeb 3 ml every 2 hours as needed for shortness of breath or wheezing -Nephrology following. Hemodialysis MWF. Additional session today. -IV Lasix 60 mg twice daily -Cardiology following. Held ASA 81 and atorvastatin 80 mg while on daptomycin. -GDMT: - coreg - losartan held due to CHAVO - not on mineralocorticoid, farxiga due to kidney dysfunction #Purulent discharge around Hamilton catheter Patient reported Hamilton catheter irritation. Today developed whitish discharge around Hamilton catheter area. Patient was afebrile and hemodynamically stable -Urinalysis was positive for pyuria -Urine culture was negative #Leukocytosis, improving -WBC 11.97 today. Patient is afebrile and has not developed any new symptoms. -Will continue to monitor #Anemia of chronic disease superimposed with iron deficiency, stable -Iron 9 TIBC 1 9 8% saturation 4.74 transferrin 136 ferritin 541 -Discontunued Ferrlecit 125 mg IVPB daily Chronic Conditions: #Diabetes mellitus, controlled -Hold home medications -Insulin NovoLog sliding scale medium dose ACHS -Accu-Cheks ACHS -Continue home NovoLog 8 units subcu ACHS -levemir 55 units at bedtime #Hypertension -Hold amlodipine and losartan for now F: Oral intake. Restrict to 2 L fluid E: None N: Heart healthy diet with fluid restriction to 2 L DVT prophylaxis: Heparin 5000 units SQ every 8 hours GI prophylaxis: Home omeprazole 20 mg p.o. daily I saw and evaluated the patient during the fernández and critical portions of this encounter, and discussed the case in detail with the resident author of this note, I agree with the Assessment and Plan, and my changes, if any, are noted below. Maintained on Lasix. Will likely need permenant HD catheter on Thursday. Status post I&D of R foot wound with wound vac placed. Maintained on Zosyn and Daptomycin (D3) while cultures pending. Hg 7.6 this morning likely AOCD with superimposed acute blood loss from surgery. Objective - Vital Signs Vital signs: Vital Signs Temp 98.0 F 06/18/24 07:47 Pulse 68 06/18/24 07:47 Resp 19 06/18/24 07:47 BP 145/84 06/18/24 07:47 Pulse Ox 96 06/18/24 07:47 FiO2 21 06/17/24 08:44 Intake & Output 06/17/24 06/18/24 06/18/24 18:59 06:59 18:59 Intake Total 618 400 Output Total 7350 Balance 618 -6950 Weight 175.1 kg Intake: IV 500 Oral 118 Hemodialysis 400 Output: Urine 350 Hemodialysis 3700 Hemodialysis Net Amount 3300 Other: Voiding Method Indwelling Catheter Indwelling Catheter - Labs CBC & Chem 7: 06/18/24 04:55 06/17/24 08:24 Labs: Abnormal Lab Results - Last 24 Hours (Table) 06/17/24 06/17/24 Range/Units 08:24 08:24 WBC 12.1 H (3.8-10.6) k/uL RBC 2.89 L (4.30-5.90) m/uL Hgb 8.1 L (13.0-17.5) gm/dL Hct 26.3 L (39.0-53.0) % Neutrophils # 9.9 H (1.3-7.7) k/uL Lymphocytes # 0.8 L (1.0-4.8) k/uL Sodium 131 L (137-145) mmol/L Chloride 96 L (98-107) mmol/L BUN 58 H (9-20) mg/dL Creatinine 6.77 H (0.66-1.25) mg/dL Glucose 108 H (74-99) mg/dL Calcium 8.3 L (8.4-10.2) mg/dL Microbiology - Last 24 Hours (Table) 06/16/24 17:52 Urine Culture - Final Urine,Voided
[2024-06-18 14:07] LABS: BUN/Creat Ratio 8.51 Ratio (12.00-20.00); Blood Urea Nitrogen 43.4 mg/dL (9.0-27.0); Calcium 7.9 mg/dL (8.7-10.3); Carbon Dioxide 25.1 mmol/L (21.6-31.8); Chloride 95 mmol/L (96-109); Glucose 102 mg/dL (70-110); Potassium 4.8 mmol/L (3.5-5.5); Sodium 133 mmol/L (135-145)
--- NOTE | 2024-06-18 14:15 | P.PN ---
Subjective Progress Note Date: 06/18/24 Principal diagnosis: Reason for follow-up is right diabetic foot infection Patient is a 54-year-old male with a past medical history significant for COPD diabetes mellitus [place] sleep apnea presenting the hospital initially for evaluation of increasing shortness of breath patient also have a right diabetic foot ulcer being treated by the wound care noticed to have worsening diagnosed with an abscess prompting this consultation patient is status post extensive surgical debridement which was sent down to the fascia and tendon. On today's evaluation that is 06/18/2024, patient did not have any fever and denies any chills, patient is breathing comfortably on 3 L nasal oxygen patient with no chest pain or cough patient did not have any abdominal pain nausea vomiting or any loose stools denies any worsening pain to the right foot. Patient white count is 11.97 creatinine is 5.1. Cultures currently pending Objective - Vital Signs Vital signs: Vital Signs Temp 36.8 F L 06/18/24 08:45 Pulse 60 06/18/24 09:00 Resp 18 06/18/24 08:45 BP 128/69 06/18/24 08:45 Pulse Ox 96 06/18/24 07:47 FiO2 21 06/17/24 08:44 Intake & Output 06/17/24 06/18/24 06/18/24 18:59 06:59 18:59 Intake Total 660 333 0026 Output Total 7350 2400 Balance 618 -6950 236 Weight 175.1 kg Intake: IV 500 Oral 118 236 Hemodialysis 400 2400 Output: Urine 350 Hemodialysis 3700 400 Hemodialysis Net Amount 3300 2000 Other: Voiding Method Indwelling Catheter Indwelling Catheter - Exam GENERAL DESCRIPTION: Middle-age male lying in bed in no distress RESPIRATORY SYSTEM: Unlabored breathing , decreased breath sounds at bases HEART: S1 S2 regular rate and rhythm , ABDOMEN: Soft , no tenderness EXTREMITIES: Right foot wound is currently covered with a wound VAC - Labs CBC & Chem 7: 06/18/24 04:55 06/18/24 04:55 Labs: Abnormal Lab Results - Last 24 Hours (Table) 06/18/24 Range/Units 04:55 WBC 11.97 H (4.50-10.00) X 10*3/uL RBC 2.77 L (4.40-5.60) X 10*6/uL Hgb 7.6 L (13.0-17.0) g/dL Hct 25.5 L (39.6-50.0) % MCHC 29.8 L (32.0-37.0) g/dL RDW 15.0 H (11.5-14.5) % Immature Gran # 0.10 H (0.00-0.04) X 10*3/uL Neutrophils # 9.80 H (1.80-7.70) X 10*3/uL Lymphocytes # 0.77 L (0.90-5.00) X 10*3/uL Eosinophils # 0.38 H (0.04-0.35) X 10*3/uL Microbiology - Last 24 Hours (Table) 06/16/24 17:52 Urine Culture - Final Urine,Voided Assessment and Plan (1) Diabetic foot infection Current Visit: Yes Status: Acute Code(s): E11.628 - TYPE 2 DIABETES MELLITUS WITH OTHER SKIN COMPLICATIONS; L08.9 - LOCAL INFECTION OF THE SKIN AND SUBC UTANEOUS TISSUE, UNSP SNOMED Code(s): 407966580 (2) Foot abscess, right Current Visit: Yes Status: Acute Code(s): L02.611 - CUTANEOUS ABSCESS OF RIGHT FOOT SNOMED Code(s): 36985937006537104 Plan: 1patient with a chronic nonhealing wound on the plantar aspect of the right foot now with evidence of significant foul-smelling drainage and fluctuation concerning for an abscess with the x-ray suggestive of possible gas-forming pathogen we will need to cover for the polymicrobial birdie associated with diabetic foot infection. 2patient with acute on chronic kidney insufficiency and high risk of vancomycin toxicity 3patient is status post surgical debridement of the right foot abscess extending down to the fascia and tendon and deep culture which are currently pending 4patient is currently being treated with Zosyn and daptomycin while waiting for the culture to finalize adjusting antibiotic further on the basis of culture and clinical response Dictation was produced using [employer] software. please excuse any grammatical, word or spelling errors. Time with Patient: Less than 30
[2024-06-18 17:57] LABS: Glucose,Whole Blood 264 mg/dL (70-110)
[2024-06-18 19:50] LABS: Glucose,Whole Blood 287 mg/dL (70-110)
[2024-06-19 06:20] LABS: Glucose,Whole Blood 159 mg/dL (70-110)
[2024-06-19 07:49] LABS: Basophils % (A) 0 %; Eosinophils # (A) 0.5 k/uL (0-0.7); Eosinophils % (A) 4 %; HCT 25.9 % (39.0-53.0); HGB 8.1 gm/dL (13.0-17.5); Hypochromasia Marked; Lymphocytes # (A) 0.8 k/uL (1.0-4.8); Lymphocytes % (A) 6 %; MCH 28.2 pg (25.0-35.0); MCHC 31.1 g/dL (31.0-37.0); MCV 90.9 fL (80.0-100.0); Mean Platelet Volume 7.7; Monocytes # (A) 0.9 k/uL (0-1.0); Monocytes % (A) 7 %; Neutrophils % (A) 81 %; Platelet Count 354 k/uL (150-450); RBC 2.85 m/uL (4.30-5.90); RDW 15.2 % (11.5-15.5); WBC 12.3 k/uL (3.8-10.6)
[2024-06-19 08:33] LABS: African American GFR (CKD) 13 (>60 ml/min/1.73 sqM); Anion Gap 5 mmol/L; Blood Urea Nitrogen 46 mg/dL (9-20); Calcium 8.1 mg/dL (8.4-10.2); Carbon Dioxide 28 mmol/L (22-30); Chloride 98 mmol/L (98-107); Glucose 146 mg/dL (74-99); Non-African American GFR(CKD) 11 (>60 ml/min/1.73 sqM); Potassium 4.2 mmol/L (3.5-5.1); Sodium 131 mmol/L (137-145)
[2024-06-19 09:03] LABS: Glucose,Whole Blood 139 mg/dL (70-110)
--- NOTE | 2024-06-19 11:57 | P.PN ---
Subjective Progress Note Date: 06/19/24 Patient is seen in follow-up for acute kidney injury on chronic kidney disease. Started on hemodialysis June 13, 2024. Urine output documented as 275 cc past 24hrs. On IV Lasix. No new complaints. Vital signs are stable. General: No acute distress. HEENT: Head exam is unremarkable. On nasal cannula. LUNGS: No audible rhonchi or wheezes. HEART: Rate and Rhythm are regular. ABDOMEN: Obese, nontender. EXTREMITITES: Lower extremities wrapped. 1+ edema. Chronic changes noted right lower extremity. Objective - Vital Signs Vital signs: Vital Signs Temp 98.3 F 06/19/24 07:47 Pulse 60 06/19/24 08:47 Resp 18 06/19/24 07:47 BP 115/73 06/19/24 07:47 Pulse Ox 93 L 06/19/24 07:47 FiO2 21 06/17/24 08:44 Intake & Output 06/18/24 06/19/24 06/19/24 18:59 06:59 18:59 Intake Total 2754 410 Output Total 2525 150 Balance 229 260 Weight 174 kg Intake: Oral 354 410 Hemodialysis 2400 Output: Urine 125 150 Stool 0 Hemodialysis 400 Hemodialysis Net Amount 2000 Other: Voiding Method Indwelling Catheter Indwelling Catheter # Bowel Movements 0 0 - Labs CBC & Chem 7: 06/19/24 07:15 06/19/24 07:15 Labs: Abnormal Lab Results - Last 24 Hours (Table) 06/18/24 06/18/24 06/18/24 Range/Units 04:55 11:57 17:55 WBC (3.8-10.6) k/uL RBC (4.30-5.90) m/uL Hgb (13.0-17.5) gm/dL Hct (39.0-53.0) % Neutrophils # (1.3-7.7) k/uL Lymphocytes # (1.0-4.8) k/uL Sodium 133 L (135-145) mmol/L Chloride 95 L (96-109) mmol/L Anion Gap 12.90 H (4.00-12.00) mmol/L BUN 43.4 H (9.0-27.0) mg/dL Creatinine 5.1 H (0.6-1.5) mg/dL Est GFR (CKD-EPI) 13 L (>=60) BUN/Creatinine Ratio 8.51 L (12.00-20.00) Ratio Glucose (74-99) mg/dL POC Glucose (mg/dL) 159 H 264 H (70-110) mg/dL Calcium 7.9 L (8.7-10.3) mg/dL 06/18/24 06/19/24 06/19/24 Range/Units 19:48 06:16 07:15 WBC 12.3 H (3.8-10.6) k/uL RBC 2.85 L (4.30-5.90) m/uL Hgb 8.1 L (13.0-17.5) gm/dL Hct 25.9 L (39.0-53.0) % Neutrophils # 10.0 H (1.3-7.7) k/uL Lymphocytes # 0.8 L (1.0-4.8) k/uL Sodium (135-145) mmol/L Chloride (96-109) mmol/L Anion Gap (4.00-12.00) mmol/L BUN (9.0-27.0) mg/dL Creatinine (0.6-1.5) mg/dL Est GFR (CKD-EPI) (>=60) BUN/Creatinine Ratio (12.00-20.00) Ratio Glucose (74-99) mg/dL POC Glucose (mg/dL) 287 H 159 H (70-110) mg/dL Calcium (8.7-10.3) mg/dL 06/19/24 06/19/24 Range/Units 07:15 09:00 WBC (3.8-10.6) k/uL RBC (4.30-5.90) m/uL Hgb (13.0-17.5) gm/dL Hct (39.0-53.0) % Neutrophils # (1.3-7.7) k/uL Lymphocytes # (1.0-4.8) k/uL Sodium 131 L (135-145) mmol/L Chloride (96-109) mmol/L Anion Gap (4.00-12.00) mmol/L BUN 46 H (9.0-27.0) mg/dL Creatinine 5.37 H (0.6-1.5) mg/dL Est GFR (CKD-EPI) (>=60) BUN/Creatinine Ratio (12.00-20.00) Ratio Glucose 146 H (74-99) mg/dL POC Glucose (mg/dL) 139 H (70-110) mg/dL Calcium 8.1 L (8.7-10.3) mg/dL Microbiology - Last 24 Hours (Table) 06/17/24 13:30 Gram Stain - Preliminary Foot - Right Assessment and Plan Assessment: 1. Acute kidney injury secondary to ATN secondary to cardiorenal syndrome as well as contrast associated acute kidney injury. Patient received IV contrast on June 07, 2024. Creatinine 1.8 on admission and is up to 5.69 dated June 13, 2024. Kidney ultrasound showed no evidence of hydronephrosis. Started on hemodialysis June 13, 2024 via temporary right IJ catheter. 2. Chronic kidney disease stage IIIb with baseline creatinine 1.8-2 secondary to diabetic kidney disease. 3. Acute on chronic systolic CHF ejection fraction of 30 to 35%. 4. Diabetes mellitus. 5. Anemia of chronic kidney disease. Iron deficiency noted. Status post IV iron. On Aranesp. 6. Hypervolemic hyponatremia. Stable. 7. Volume overload. Improving with diuresis and ultrafiltration. 8. Chronic kidney disease mineral bone disease. Phosphorus level 8.0 dated June 14, 2024. On PhosLo. Plan: HD yesterday. Will continue TTS. Maintain IV Lasix. Continue to hold Cozaar. Avoid nephrotoxins. Monitor for renal recovery. Outpatient dialysis being set up by bottle [facility]er. If no improvement in renal function by Thursday, will need permacath placed and removal of temporary dialysis catheter.
[2024-06-19 12:49] LABS: Glucose,Whole Blood 229 mg/dL (70-110)
--- NOTE | 2024-06-19 13:28 | P.PN ---
Subjective Progress Note Date: 06/19/24 54-year-old male with a PMH of systolic CHF (EF 20 to 25%), asthma, COPD, diabetes mellitus, and CKD stage 3B presents with complaints of shortness of breath with orthopnea and cough. In the ED he underwent extensive evaluation. BP 166/102, HR 100, RR 20, T 99F, 96% on RA. CBC, Coag panel, CMP significant for WBC 12.9, RBC 4.27, Hg 12.3, APTT 33.5, Na 129, BUN 28, Cr 1.8, glu 254, Ca 8. BNP 90461. Troponin 0.081, 0.087, 0.08. D-Dimer 1.34. CTA chest no evidence of PE, bronchial wall thickening, left upper lung pulmonary nodule measuring 8 mm, hepatic steatosis. Patient was admitted for further workup and management. Started on Bumex IV and Cardiology consulted. Worsening renal function, Nephrology consulted, temporary HD catheter inserted by Vascular surgery and started on HD on 06/13. Continued diuresis with Lasix IV, patient making minimal urine output will likely need permanent HD catheter to be placed on 06/20. Would care consulted for RLE wound, started on silver alginate to be replaced every other day with simple gauze and CONSTANTINE wrap. Concerns for infection of the right foot, started on Zosyn and ID consulted on 06/16. Daptomycin was added. He underwent debridement of necrotic wound right foot plantar aspect measurement is 6 x [address] Sanchez on 06/17. 06/19 Patient was seen and examined. No acute events overnight. Maintained on Daptomycin and Zosyn. WCx growing Enterococcus faecalis. CBC and BMP significant for WBC 12.3, RBC 2.85, Hg 8.1, Hct 25.9, Na 131, BUN 46m Cr 5.37, glu 146, Ca 8.1. General: non toxic, no distress, appears at stated age, morbidly obese Derm: warm, dry Head: atraumatic, normocephalic, symmetric Eyes: EOMI, no lid lag, anicteric sclera Mouth: no lip lesion, mucus membranes moist Cardiovascular: S1S2 reg, no murmur Lungs: Decreased BS bilateral, no rhonchi, no rales , no accessory muscle use Ext: no gross muscle atrophy, 2+ edema with chronic ulcers and venous stasis changes bilaterally, no contractures,wound vac intact. Neuro: no focal neuro deficits Psych: Alert, oriented, appropriate affect Based on my assessment of this patient, this patient meets a high complexity level of care. Necrotic wound right foot: Plantar aspect. Wound vac intact. Continue Zosyn 3.75g IV TID (D3) and Daptomycin 700 mg IV Q48H (D3). WCx growing Enterococcus faecalis. ID on board. CHAVO on CKD stage IIIb: Cardiorenal syndome. 350 cc urine output over the past 24H. Continue HD on TTS schedule. Continue Lasix 60 mg IV BID. Will likely need a permenant HD catheter on Thursday. Nephrology on board. Acute on chronic hypoxic respiratory failure secondary to CHF exacerbation: Continue Lasix IV as above. Improving with HD. Strict intake and outtake. Daily weights. Cardiology on board. Acute on chronic systolic CHF (EF 20 to 25%), NYHA class III COPD without exacerbation: Symbicort 2 INH BID. Anemia of chronic disease in the setting of renal disease Hyponatremia: Hypervolemic. Improving with Lasix and HD. Diabetes mellitus: A1c 11.1. Levemir 55 units QHS. Novolog 8 units ACHS. ISS ACHS. Accuchecks ACHS. Hypoglycemic precautions. CODE STATUS: FULL CODE DVT Prophylaxis: Heparin SQ GI Prophylaxis: Protonix PO Designated medical POA if patient is not able to make medical decisions for themselves: I have reviewed the following risk control consultant notes: Nephro, ID. I have reviewed the results of the following tests: CBP, BMP, WCx. I have ordered the following tests: I have discussed the care of this patient with the following independent historian: I have independently interpreted the following test below: I have discussed the management of this patient with the following physician: Dr. Joe. Objective - Vital Signs Vital signs: Vital Signs Temp 98.3 F 06/19/24 07:47 Pulse 60 06/19/24 08:47 Resp 18 06/19/24 07:47 BP 115/73 06/19/24 07:47 Pulse Ox 93 L 06/19/24 07:47 FiO2 21 06/17/24 08:44 Intake & Output 06/18/24 06/19/24 06/19/24 18:59 06:59 18:59 Intake Total 2754 410 Output Total 2525 150 Balance 229 260 Weight 174 kg Intake: Oral 354 410 Hemodialysis 2400 Output: Urine 125 150 Stool 0 Hemodialysis 400 Hemodialysis Net Amount 1999 Other: Voiding Method Indwelling Catheter Indwelling Catheter # Bowel Movements 0 0 - Labs CBC & Chem 7: 06/19/24 07:15 06/19/24 07:15 Labs: Abnormal Lab Results - Last 24 Hours (Table) 06/18/24 06/18/24 06/18/24 Range/Units 04:55 17:55 19:48 WBC (3.8-10.6) k/uL RBC (4.30-5.90) m/uL Hgb (13.0-17.5) gm/dL Hct (39.0-53.0) % Neutrophils # (1.3-7.7) k/uL Lymphocytes # (1.0-4.8) k/uL Sodium 133 L (135-145) mmol/L Chloride 95 L (96-109) mmol/L Anion Gap 12.90 H (4.00-12.00) mmol/L BUN 43.4 H (9.0-27.0) mg/dL Creatinine 5.1 H (0.6-1.5) mg/dL Est GFR (CKD-EPI) 13 L (>=60) BUN/Creatinine Ratio 8.51 L (12.00-20.00) Ratio Glucose (74-99) mg/dL POC Glucose (mg/dL) 264 H 287 H (70-110) mg/dL Calcium 7.9 L (8.7-10.3) mg/dL 06/19/24 06/19/24 06/19/24 Range/Units 06:16 07:15 07:15 WBC 12.3 H (3.8-10.6) k/uL RBC 2.85 L (4.30-5.90) m/uL Hgb 8.1 L (13.0-17.5) gm/dL Hct 25.9 L (39.0-53.0) % Neutrophils # 10.0 H (1.3-7.7) k/uL Lymphocytes # 0.8 L (1.0-4.8) k/uL Sodium 131 L (135-145) mmol/L Chloride (96-109) mmol/L Anion Gap (4.00-12.00) mmol/L BUN 46 H (9.0-27.0) mg/dL Creatinine 5.37 H (0.6-1.5) mg/dL Est GFR (CKD-EPI) (>=60) BUN/Creatinine Ratio (12.00-20.00) Ratio Glucose 146 H (74-99) mg/dL POC Glucose (mg/dL) 159 H (70-110) mg/dL Calcium 8.1 L (8.7-10.3) mg/dL 06/19/24 06/19/24 Range/Units 09:00 12:48 WBC (3.8-10.6) k/uL RBC (4.30-5.90) m/uL Hgb (13.0-17.5) gm/dL Hct (39.0-53.0) % Neutrophils # (1.3-7.7) k/uL Lymphocytes # (1.0-4.8) k/uL Sodium (135-145) mmol/L Chloride (96-109) mmol/L Anion Gap (4.00-12.00) mmol/L BUN (9.0-27.0) mg/dL Creatinine (0.6-1.5) mg/dL Est GFR (CKD-EPI) (>=60) BUN/Creatinine Ratio (12.00-20.00) Ratio Glucose (74-99) mg/dL POC Glucose (mg/dL) 139 H 229 H (70-110) mg/dL Calcium (8.7-10.3) mg/dL Microbiology - Last 24 Hours (Table) 06/17/24 13:30 Gram Stain - Preliminary Foot - Right Tissue Culture - Preliminary Enterococcus faecalis
[2024-06-19 17:55] LABS: Glucose,Whole Blood 243 mg/dL (70-110)
[2024-06-19 20:06] LABS: Glucose,Whole Blood 220 mg/dL (70-110)
--- NOTE | 2024-06-19 23:35 | P.PN ---
Subjective Progress Note Date: 06/19/24 Principal diagnosis: Reason for follow-up is right diabetic foot infection Patient is a 54-year-old male with a past medical history significant for COPD diabetes mellitus NE sleep apnea presenting the hospital initially for evaluation of increasing shortness of breath patient also have a right diabetic foot ulcer being treated by the wound care noticed to have worsening diagnosed with an abscess prompting this consultation patient is status post extensive surgical debridement which was sent down to the fascia and tendon. On today's evaluation that is 06/19/2024, Patient is afebrile patient is currently on 3 L current oxygen and denies having any shortness of breath, the patient denies any chest pain or cough, the patient denies any nausea vomiting did not have any abdominal pain and no diarrhea, patient denies pain to the right foot wound has been complaining mostly about his fluid restriction. Patient white count is 12.3 creatinine is 4.37 cultures currently pending Objective - Vital Signs Vital signs: Vital Signs Temp 98.3 F 06/19/24 07:47 Pulse 60 06/19/24 08:47 Resp 18 06/19/24 07:47 BP 115/73 06/19/24 07:47 Pulse Ox 93 L 06/19/24 07:47 FiO2 21 06/17/24 08:44 Intake & Output 06/18/24 06/19/24 06/19/24 18:59 06:59 18:59 Intake Total 2754 410 Output Total 2525 150 Balance 229 260 Weight 174 kg Intake: Oral 354 410 Hemodialysis 2400 Output: Urine 125 150 Stool 0 Hemodialysis 400 Hemodialysis Net Amount 2000 Other: Voiding Method Indwelling Catheter Indwelling Catheter # Bowel Movements 0 0 - Exam GENERAL DESCRIPTION: Middle-age male lying in bed in no distress RESPIRATORY SYSTEM: Unlabored breathing , decreased breath sounds at bases HEART: S1 S2 regular rate and rhythm , ABDOMEN: Soft , no tenderness EXTREMITIES: Right foot wound is currently covered with a wound VAC - Labs CBC & Chem 7: 06/19/24 07:15 06/19/24 07:15 Labs: Abnormal Lab Results - Last 24 Hours (Table) 06/18/24 06/18/24 06/18/24 Range/Units 04:55 04:55 11:57 WBC 11.97 H (4.50-10.00) X 10*3/uL RBC 2.77 L (4.40-5.60) X 10*6/uL Hgb 7.6 L (13.0-17.0) g/dL Hct 25.5 L (39.6-50.0) % MCHC 29.8 L (32.0-37.0) g/dL RDW 15.0 H (11.5-14.5) % Immature Gran # 0.10 H (0.00-0.04) X 10*3/uL Neutrophils # 9.80 H (1.80-7.70) X 10*3/uL Lymphocytes # 0.77 L (0.90-5.00) X 10*3/uL Eosinophils # 0.38 H (0.04-0.35) X 10*3/uL Sodium 133 L (135-145) mmol/L Chloride 95 L (96-109) mmol/L Anion Gap 12.90 H (4.00-12.00) mmol/L BUN 43.4 H (9.0-27.0) mg/dL Creatinine 5.1 H (0.6-1.5) mg/dL Est GFR (CKD-EPI) 13 L (>=60) BUN/Creatinine Ratio 8.51 L (12.00-20.00) Ratio Glucose (74-99) mg/dL POC Glucose (mg/dL) 159 H (70-110) mg/dL Calcium 7.9 L (8.7-10.3) mg/dL 06/18/24 06/18/24 06/19/24 Range/Units 17:55 19:48 06:16 WBC (4.50-10.00) X 10*3/uL RBC (4.40-5.60) X 10*6/uL Hgb (13.0-17.0) g/dL Hct (39.6-50.0) % MCHC (32.0-37.0) g/dL RDW (11.5-14.5) % Immature Gran # (0.00-0.04) X 10*3/uL Neutrophils # (1.80-7.70) X 10*3/uL Lymphocytes # (0.90-5.00) X 10*3/uL Eosinophils # (0.04-0.35) X 10*3/uL Sodium (135-145) mmol/L Chloride (96-109) mmol/L Anion Gap (4.00-12.00) mmol/L BUN (9.0-27.0) mg/dL Creatinine (0.6-1.5) mg/dL Est GFR (CKD-EPI) (>=60) BUN/Creatinine Ratio (12.00-20.00) Ratio Glucose (74-99) mg/dL POC Glucose (mg/dL) 264 H 287 H 159 H (70-110) mg/dL Calcium (8.7-10.3) mg/dL 06/19/24 06/19/24 06/19/24 Range/Units 07:15 07:15 09:00 WBC 12.3 H (4.50-10.00) X 10*3/uL RBC 2.85 L (4.40-5.60) X 10*6/uL Hgb 8.1 L (13.0-17.0) g/dL Hct 25.9 L (39.6-50.0) % MCHC (32.0-37.0) g/dL RDW (11.5-14.5) % Immature Gran # (0.00-0.04) X 10*3/uL Neutrophils # 10.0 H (1.80-7.70) X 10*3/uL Lymphocytes # 0.8 L (0.90-5.00) X 10*3/uL Eosinophils # (0.04-0.35) X 10*3/uL Sodium 131 L (135-145) mmol/L Chloride (96-109) mmol/L Anion Gap (4.00-12.00) mmol/L BUN 46 H (9.0-27.0) mg/dL Creatinine 5.37 H (0.6-1.5) mg/dL Est GFR (CKD-EPI) (>=60) BUN/Creatinine Ratio (12.00-20.00) Ratio Glucose 146 H (74-99) mg/dL POC Glucose (mg/dL) 139 H (70-110) mg/dL Calcium 8.1 L (8.7-10.3) mg/dL Microbiology - Last 24 Hours (Table) 06/17/24 13:30 Gram Stain - Preliminary Foot - Right Assessment and Plan (1) Diabetic foot infection Current Visit: Yes Status: Acute Code(s): E11.628 - TYPE 2 DIABETES MELLITUS WITH OTHER SKIN COMPLICATIONS; L08.9 - LOCAL INFECTION OF THE SKIN AND SUBCUTANEOUS TISSUE, UNSP SNOMED Code(s): 934038338 (2) Foot abscess, right Current Visit: Yes Status: Acute Code(s): L02.611 - CUTANEOUS ABSCESS OF RIGHT FOOT SNOMED Code(s): 42443621942491649 Plan: 1patient with a chronic nonhealing wound on the plantar aspect of the right foot now with evidence of significant foul-smelling drainage and fluctuation concerning for an abscess with the x-ray suggestive of possible gas-forming pathogen we will need to cover for the polymicrobial birdie associated with diabetic foot infection. 2patient with acute on chronic kidney insufficiency and high risk of vancomycin toxicity 3patient is status post surgical debridement of the right foot abscess extending down to the fascia and tendon and deep culture which are currently pending 4patient will be continued on Zosyn and daptomycin while waiting for the culture to finalize to determine discharge antibiotics Dictation was produced using [employer] dictation software. please excuse any grammatical, word or spelling errors. Time with Patient: Less than 30
[2024-06-20 05:46] LABS: Glucose,Whole Blood 184 mg/dL (70-110)
[2024-06-20 08:05] LABS: Basophils % (A) 0 %; Eosinophils # (A) 0.5 k/uL (0-0.7); Eosinophils % (A) 4 %; HCT 24.2 % (39.0-53.0); HGB 7.4 gm/dL (13.0-17.5); Hypochromasia Marked; Lymphocytes # (A) 0.8 k/uL (1.0-4.8); Lymphocytes % (A) 7 %; MCH 28.1 pg (25.0-35.0); MCHC 30.4 g/dL (31.0-37.0); MCV 92.3 fL (80.0-100.0); Mean Platelet Volume 8.3; Monocytes # (A) 0.5 k/uL (0-1.0); Monocytes % (A) 4 %; Neutrophils % (A) 83 %; Platelet Count 316 k/uL (150-450); RBC 2.62 m/uL (4.30-5.90); RDW 15.1 % (11.5-15.5); WBC 10.9 k/uL (3.8-10.6)
[2024-06-20 08:21] LABS: African American GFR (CKD) 10 (>60 ml/min/1.73 sqM); Anion Gap 8 mmol/L; Blood Urea Nitrogen 61 mg/dL (9-20); Calcium 7.8 mg/dL (8.4-10.2); Carbon Dioxide 28 mmol/L (22-30); Chloride 96 mmol/L (98-107); Glucose 171 mg/dL (74-99); Non-African American GFR(CKD) 9 (>60 ml/min/1.73 sqM); Potassium 4.2 mmol/L (3.5-5.1); Sodium 132 mmol/L (137-145)
[2024-06-20 11:57] LABS: Glucose,Whole Blood 241 mg/dL (70-110)
[2024-06-20] MEDS ORDERED: HYDROmorphone 1 MG/ML 1 ML SYRINGE IVP PRN (12:45)
--- NOTE | 2024-06-20 12:45 | P.PN ---
Subjective Progress Note Date: 06/20/24 54-year-old male with a PMH of systolic CHF (EF 20 to 25%), asthma, COPD, diabetes mellitus, and CKD 3B presents with complaints of shortness of breath. Reports 3 weeks ago he started feeling shortness of breath, and states that this time he went to an urgent care where he was prescribed steroids and azithromycin which he reports he finished antibiotic course and steroids. States after completing this he felt slightly better but still had shortness of breath. Notes during this time he has had to sleep sitting on the edge of the bed, admits to orthopnea. States that shortness of breath gets worse on exertion. Admits to seeing increased swelling in his lower extremities compared to before this all started. Of note during recent admission he was treated for foot ulcers, which she reports he follows consistently with wound care outpatient. Admits to a mild cough but denies any sputum production. Denies fever, chills, headache, chest pain, palpitations, nausea, vomiting, diarrhea, constipation. Labs: WBC 12.9, hemoglobin 12.3, D-dimer 1.34, sodium 129, BUN 28, creatinine 1.8, glucose 254, troponin 0.01, BNP 12,200, and viral respiratory panel all negative. Imaging: - EKG done in the ER showed heart rate of 94 bpm, sinus rhythm, possible left atrial enlargement, and QTc 406. - ER CXR: No acute cardiopulmonary disease/process. - ER CTA chest: No evidence of PE, bronchial wall thickening, left upper lung pulmonary nodule measuring 8 mm, hepatic steatosis - CXR from 06/10 independently interpreted shows improved congestion -Echo left ventricular ejection fraction estimated 30 to 35% with severely increased diastolic volume. Severe global hypokinesis of the left ventricle. 06/08/2024 patient seen and examined at bedside. Patient noted that his shortness of breath is improved and only occurs on exertion such as walking. He denies chest pain, calf tenderness, cough, subjective fevers, chills, nausea vomiting, or diarrhea. WBC 9.9 hemoglobin 10.3 platelet count 2 25,000 sodium 134 potassium 3.8 chloride 101 bicarb 30 BUN 30 creatinine 2.14 glucose 131 calcium 7.9 magnesium 2 AST 46 ALT 13 ALP 75 troponin peaked at 0.08 albumin 2.1. Echo left ventricular ejection fraction estimated 30 to 35% with severely increased diastolic volume. Severe global hypokinesis of the left ventricle. 06/09/2024 patient seen and examined at bedside. Patient noted to have improved shortness of breath better than yesterday. No acute events overnight. WBC 15.3 hemoglobin 10.3 platelet count 204,000 sodium 132 potassium 4.2 chloride 100 bicarb 26 BUN 37 creatinine 2.64 glucose 178 calcium 8 06/10/2024 patient seen and examined at bedside. Patient reported that they still experience shortness of breath on exertion. He also reported that they feel they have a lot of wheezing today. No acute events overnight. WBC 14.6 hemoglobin 9.1 MCV 9.8 platelet count 189,000 sodium 129 potassium 4.3 chloride 100 BUN 44 creatinine 3.01 glucose 196 calcium 7.7. CXR from 06/10 independently interpreted shows improved congestion. Ultrasound of the bladder shows no obstruction. 06/11/2024 patient seen and examined at bedside. Patient reported that he still experiences some shortness of breath. No acute events overnight. WBC 17.9 hemoglobin 9.1 platelet count 09/01/1999 sodium 132 potassium 4.1 chloride 100 BUN 49 creatinine 3.42 glucose 116 calcium 8 06/12/2024 patient seen and examined at bedside. No acute events overnight. No new complaints. Cr significantly worsening. Nephrology on board. Tanya is < 20. 06/13/2024 patient seen and examined at bedside. No acute events overnight. Patient has no new complaints. WBC 11.5 hemoglobin 8.4 sodium 130 BUN 67 creatinine 5.69 glucose 174 calcium 7.7 magnesium 2.4 06/14/2024 patient seen and examined at bedside. No acute events overnight. Patient had no new complaints. WBC 10.8 hemoglobin 8.3 platelet count 268,000 sodium 129 potassium 4.5 chloride 96 BUN 16 creatinine 5.5 glucose 188 calcium 7.8 phosphorus 8 magnesium 2.3 06/15/2024 patient seen and examined at bedside. No acute events overnight. Patient reported complaining of discomfort with the Hamilton catheter. WBC 11.8 hemoglobin 8.2 platelet count 272,000 sodium 130 potassium 4.3 chloride 95 BUN 54 creatinine 5.4 glucose 201 calcium 7.8. Fuid balance -2 990 mL hemodialysis 1.5 L taken UO 775mL 06/16/2024 patient seen and examined at bedside. Patient reported to have some confusion overnight. Also that he slept most of the day. No new complaints. WBC 11.5 hemoglobin 8.5 sodium 131 potassium 4.4 bicarb 35 BUN 42 creatinine 4.79 glucose 111 calcium 8.1 ALEKS balance -3848 mL urine output 775 mL. 06/17/2024 patient seen and examined at bedside. Patient has no new complaints. Patient reported to have some confusion in the middle of the night. ALEKS -3 730 mL urine output 750 mL. Still on a Hamilton. Urinalysis so moderate leukocyte esterase, +2 glucose, +2 protein negative nitrates occasional bacteria. WBC 12.1 hemoglobin 8.1 platelet count 325 sodium 131 potassium 4.6 chloride 96 bicarb 28 BUN 58 creatinine 6.77 glucose 108 calcium 8.3 magnesium 2. Right foot x-ray noted to have soft tissue swelling and gas, negative for osteomyelitis, no fracture or dislocation. 06/18/2024 patient seen and examined at bedside. No new complaints. No acute events overnight. ALEKS balance -633 2 mL urine output 350 mL. WBC 11.97 hemoglo bin 7.6 platelet count 338,000 06/19 Patient was seen and examined. No acute events overnight. Maintained on Daptomycin and Zosyn. WCx growing Enterococcus faecalis. CBC and BMP significant for WBC 12.3, RBC 2.85, Hg 8.1, Hct 25.9, Na 131, BUN 46m Cr 5.37, glu 146, Ca 8.1. 06/20/2024 was seen and examined. No acute events overnight. WBC 10.9 hemoglobin 7.4 platelet count 316,000 sodium 132 potassium 4.2 chloride 96 BUN 61 creatinine 6.7 glucose 171 calcium 7.8 Gen: In NAD, non-toxic, on 3L NC HEENT: normocephalic, atraumatic, hearing acuity is intant, mucous membranes moist CVS: perfusing all extremities well Respiratory: symmetric chest expansion, no accessory muscle use GI: soft, NTTP, ND : no suprapubic tenderness, no CVA tenderness MSK/Derm: no rashes, cyanosis, chronic wound wrapped in bandaging (ulcers), right foot covered with wound VAC today site clean and dry, wound VAC having some output, pedal edema appreciated, trace to 1+ pitting edema up to the mid calf noted on bilateral lower extremities Neuro: CN II-XII intact, no motor weakness Psych: cooperative, euthymic mood, judgment and insight is intact Assessment/Plan: #CHAVO on CKD stage IIIb secondary to cardiorenal syndrome, improving -BUN 61 creatinine 6.7 -Baseline creatinine 1.69-2.2 -Monitor UO. On Hamilton catheter -Continue to monitor daily BMP -Discussed management with nephrology. Farxiga and Cozaar held. Dialysis today. Started on Phoslo and Aranesp. IV Lasix 60 mg twice daily. -For permanent catheter placement with vascular surgery -SW arranging outpatient dialysis. # Chronic right foot wound rule out infection, necrotic, status post incision and drainage of right foot, improving #Leukocytosis, improving right foot covered with wound VAC today site clean and dry, wound VAC having some output Patient being seen at home wound care. -wound care consulted -Right foot x-ray noted to have soft tissue swelling and gas, negative for osteomyelitis, no fracture or dislocation -Wound cultures showed positive for multidrug-resistant Enterococcus faecalis and strep agalactiae -Continue Zosyn IVPB every 8 hours and daptomycin 700 mg IVPB every 48 hours day 4 -Infectious disease consulted -Vascular surgery consulted. Status post I&D day 3 today #Acute on chronic hypoxic respiratory failure secondary to CHF exacerbation, improving #Acute on chronic systolic CHF (EF 20 to 25%), NYHA class III, improving #COPD without exacerbation #Hypervolemic hyponatremia, stable -Cardiac monitoring -Supportive oxygen as needed -Fluid restrict to 2 L daily -Daily weights -Strict I's and O's -O2 NC as needed -Ordered DuoNeb 3 ml every 2 hours as needed for shortness of breath or wheezing -Nephrology following. Hemodialysis MWF. -Continue with IV Lasix 60 mg twice daily -Cardiology following. Held ASA 81 and atorvastatin 80 mg while on daptomycin. -GDMT: - coreg - losartan held due to CHAVO - not on mineralocorticoid, farxiga due to kidney dysfunction #Cystitis, improved #Anemia of chronic disease superimposed with iron deficiency, stable Chronic Conditions: #Diabetes mellitus, controlled -Hold home medications -Insulin NovoLog sliding scale medium dose ACHS -Accu-Cheks ACHS -Continue home NovoLog 8 units subcu ACHS -levemir 55 units at bedtime #Hypertension -Hold amlodipine and losartan for now F: Oral intake. Restrict to 2 L fluid E: None N: Heart healthy diet with fluid restriction to 2 L DVT prophylaxis: Heparin 5000 units SQ every 8 hours GI prophylaxis: Home omeprazole 20 mg p.o. daily I saw and evaluated the patient during the fernández and critical portions of this encounter, and discussed the case in detail with the resident author of this note, I agree with the Assessment and Plan, and my changes, if any, are noted below. Right foot wound polymicrobial growing Step agalactiae, Enterococcus faecalis, Corynebacterium striatum and Prevotella disiens. Daptomycin and Zosyn switched to Unasyn by ID. Plans for permenant HD catheter tomorrow by Vascular Sx. Case management on board for placement. Objective - Vital Signs Vital signs: Vital Signs Temp 98.2 F 06/20/24 02:22 Pulse 79 06/20/24 02:22 Resp 19 06/20/24 02:22 BP 116/65 06/20/24 02:22 Pulse Ox 99 06/20/24 02:22 FiO2 21 06/17/24 08:44 Intake & Output 06/19/24 06/19/24 06/20/24 06:59 18:59 06:59 Intake Total 410 118 Output Total 150 300 Balance 260 118 -300 Weight 174 kg 177.5 kg Intake: Oral 410 118 Output: Urine 150 300 Stool 0 0 Other: Voiding Method Indwelling Catheter Indwelling Catheter Indwelling Catheter # Bowel Movements 0 - Labs CBC & Chem 7: 06/20/24 07:52 06/20/24 07:52 Labs: Abnormal Lab Results - Last 24 Hours (Table) 06/19/24 06/19/24 06/19/24 Range/Units 07:15 07:15 09:00 WBC 12.3 H (3.8-10.6) k/uL RBC 2.85 L (4.30-5.90) m/uL Hgb 8.1 L (13.0-17.5) gm/dL Hct 25.9 L (39.0-53.0) % Neutrophils # 10.0 H (1.3-7.7) k/uL Lymphocytes # 0.8 L (1.0-4.8) k/uL Sodium 131 L (137-145) mmol/L BUN 46 H (9-20) mg/dL Creatinine 5.37 H (0.66-1.25) mg/dL Glucose 146 H (74-99) mg/dL POC Glucose (mg/dL) 139 H (70-110) mg/dL Calcium 8.1 L (8.4-10.2) mg/dL 06/19/24 06/19/24 06/19/24 Range/Units 12:48 17:52 20:02 WBC (3.8-10.6) k/uL RBC (4.30-5.90) m/uL Hgb (13.0-17.5) gm/dL Hct (39.0-53.0) % Neutrophils # (1.3-7.7) k/uL Lymphocytes # (1.0-4.8) k/uL Sodium (137-145) mmol/L BUN (9-20) mg/dL Creatinine (0.66-1.25) mg/dL Glucose (74-99) mg/dL POC Glucose (mg/dL) 229 H 243 H 220 H (70-110) mg/dL Calcium (8.4-10.2) mg/dL 06/20/24 Range/Units 05:45 WBC (3.8-10.6) k/uL RBC (4.30-5.90) m/uL Hgb (13.0-17.5) gm/dL Hct (39.0-53.0) % Neutrophils # (1.3-7.7) k/uL Lymphocytes # (1.0-4.8) k/uL Sodium (137-145) mmol/L BUN (9-20) mg/dL Creatinine (0.66-1.25) mg/dL Glucose (74-99) mg/dL POC Glucose (mg/dL) 184 H (70-110) mg/dL Calcium (8.4-10.2) mg/dL Microbiology - Last 24 Hours (Table) 06/17/24 13:30 Gram Stain - Preliminary Foot - Right Tissue Culture - Preliminary Enterococcus faecalis
--- NOTE | 2024-06-20 13:41 | P.PN ---
Progress Note - Text [id number]-old gentleman history of chronic renal failure, CHF, PCT, patient on dialysis through the right IJ catheter. I was consulted for will order wound on right foot plantar aspect we did the extensive debridement involving involving the fascia and the tendons last week patient was on VAC therapy. Culture came back as group B strep and Enterococcus faecalis is under care of infectious disease. Will change the dressing patient still has some drainage wound VAC was placed wound VAC will be changed Thursday and Thu patient IV antibiotic which should be continued patient has a temporary dialysis catheter. Will convert into permanent dialysis catheter tomorrow
[2024-06-20 14:17] LABS: Glucose,Whole Blood 201 mg/dL (70-110)
--- NOTE | 2024-06-20 15:54 | XR ---
EXAMINATION TYPE: XR chest 1V portable DATE OF EXAM: 06/20/2024 COMPARISON: 06/17/2024 CLINICAL INDICATION: Male, 54 years old with history of SOB; TECHNIQUE: Single frontal view of the chest is obtained. FINDINGS: No change in the right jugular central venous catheter. Few patchy hazy densities are again seen in the right mid and lower lung zone unchanged from previous. There is moderate to marked cardi omegaly. There is no pleural effusion or pneumothorax. The osseous structures are intact. IMPRESSION: No change in the acute cardiac pulmonary disease involving the right lung as described ab ove. [facility], , 06/20/2024 3:52 PM
[2024-06-20 16:44] LABS: Glucose,Whole Blood 237 mg/dL (70-110)
[2024-06-20] MEDS: INSULIN ASPART (NovoLOG) 100 UNIT/ML VIAL SQ SCH (17:19)
--- NOTE | 2024-06-20 19:04 | P.PN ---
Subjective Patient is seen for follow-up for acute kidney injury currently maintained on hemodialysis. Scheduled for hemodialysis in a.m. No significant complaints today. Blood pressure is on the lower side 24-hour urine output at 275 mL, not sure if this is accurate. Maintained on Lasix 60 mg every 12 hours. Objective - Vital Signs Vital signs: Vital Signs Temp 98 F 06/20/24 14:15 Pulse 68 06/20/24 18:25 Resp 18 06/20/24 14:15 BP 122/74 06/20/24 14:15 Pulse Ox 96 06/20/24 14:15 FiO2 21 06/17/24 08:44 Intake & Output 06/19/24 06/20/24 06/20/24 18:59 06:59 18:59 Intake Total 118 236 Output Total 300 350 Balance 118 -300 -114 Weight 177.5 kg Intake: Oral 118 236 Output: Urine 300 350 Stool 0 Other: Voiding Method Indwelling Catheter Indwelling Catheter Indwelling Catheter - Exam Patient is sleeping but arousable. No acute distress. Right foot with wound VAC Examination of the heart S1 and S2 Examination of the lungs bilateral breath sounds are heard Abdomen is soft morbidly obese Bilateral lower extremities show chronic skin changes, right foot wound with wound VAC - Labs CBC & Chem 7: 06/20/24 07:52 06/20/24 07:52 Labs: Abnormal Lab Results - Last 24 Hours (Table) 06/19/24 06/20/24 06/20/24 Range/Units 20:02 05:45 07:52 WBC 10.9 H (3.8-10.6) k/uL RBC 2.62 L (4.30-5.90) m/uL Hgb 7.4 L (13.0-17.5) gm/dL Hct 24.2 L (39.0-53.0) % MCHC 30.4 L (31.0-37.0) g/dL Neutrophils # 9.0 H (1.3-7.7) k/uL Lymphocytes # 0.8 L (1.0-4.8) k/uL Sodium (137-145) mmol/L Chloride (98-107) mmol/L BUN (9-20) mg/dL Creatinine (0.66-1.25) mg/dL Glucose (74-99) mg/dL POC Glucose (mg/dL) 220 H 184 H (70-110) mg/dL Calcium (8.4-10.2) mg/dL 06/20/24 06/20/24 06/20/24 Range/Units 07:52 11:55 14:15 WBC (3.8-10.6) k/uL RBC (4.30-5.90) m/uL Hgb (13.0-17.5) gm/dL Hct (39.0-53.0) % MCHC (31.0-37.0) g/dL Neutrophils # (1.3-7.7) k/uL Lymphocytes # (1.0-4.8) k/uL Sodium 132 L (137-145) mmol/L Chloride 96 L (98-107) mmol/L BUN 61 H (9-20) mg/dL Creatinine 6.70 H (0.66-1.25) mg/dL Glucose 171 H (74-99) mg/dL POC Glucose (mg/dL) 241 H 201 H (70-110) mg/dL Calcium 7.8 L (8.4-10.2) mg/dL 06/20/24 Range/Units 16:43 WBC (3.8-10.6) k/uL RBC (4.30-5.90) m/uL Hgb (13.0-17.5) gm/dL Hct (39.0-53.0) % MCHC (31.0-37.0) g/dL Neutrophils # (1.3-7.7) k/uL Lymphocytes # (1.0-4.8) k/uL Sodium (137-145) mmol/L Chloride (98-107) mmol/L BUN (9-20) mg/dL Creatinine (0.66-1.25) mg/dL Glucose (74-99) mg/dL POC Glucose (mg/dL) 237 H (70-110) mg/dL Calcium (8.4-10.2) mg/dL Microbiology - Last 24 Hours (Table) 06/17/24 13:30 Anaerobic Culture - Preliminary Foot - Right Corynebacterium striatum group Prevotella disiens 06/17/24 13:30 Gram Stain - Preliminary Foot - Right Tissue Culture - Preliminary Enterococcus faecalis Strep agalactiae - (group b) Assessment and Plan Assessment: 1. Acute kidney injury secondary to ATN secondary to cardiorenal syndrome as well as contrast associated acute kidney injury. Patient received IV contrast on June 07, 2024. Creatinine 1.8 on admission and is up to 5.69 dated June 13, 2024. Kidney ultrasound showed no evidence of hydronephrosis. Started on hemodialysis June 13, 2024 via temporary right IJ catheter. Urine output at 300 to 400 cc/day 2. Chronic kidney disease stage IIIb with baseline creatinine 1.8-2 secondary to diabetic kidney disease. 3. Acute on chronic systolic CHF ejection fraction of 30 to 35%. 4. Diabetes mellitus. 5. Anemia of chronic kidney disease. Iron deficiency noted. Status post IV iron. On Aranesp. 6. Hypervolemic hyponatremia. Stable. 7. Volume overload. Improving with diuresis and ultrafiltration. 8. Chronic kidney disease mineral bone disease. Phosphorus level 8.0 dated June 14, 2024. On PhosLo. Plan: Continue with hemodialysis. Scheduled for treatment in a.m. May continue with IV Lasix Accurate I's and O's.
[2024-06-20 20:06] LABS: Glucose,Whole Blood 230 mg/dL (70-110)
[2024-06-20] MEDS: AMPICILLIN-SULBACTAM 3 GM in SODIUM CHLORIDE 0.9% 100 ML IVPB SCH (20:26)
[2024-06-20] MEDS: INSULIN DETEMIR (LEVEMIR) 100 UNIT/ML SYR SQ SCH (21:00)
[2024-06-21 05:53] LABS: Glucose,Whole Blood 172 mg/dL (70-110)
[2024-06-21] MEDS: carvediloL 6.25 MG TAB PO SCH (06:20)
--- NOTE | 2024-06-21 08:27 | P.PN ---
Subjective Progress Note Date: 06/20/24 Principal diagnosis: Reason for follow-up is right diabetic foot infection Patient is a 54-year-old male with a past medical history significant for COPD diabetes mellitus [place] sleep apnea presenting the hospital initially for evaluation of increasing shortness of breath patient also have a right diabetic foot ulcer being treated by the wound care noticed to have worsening diagnosed with an abscess prompting this consultation patient is status post extensive surgical debridement which was sent down to the fascia and tendon. On today's evaluation that is 06/20/2024, patient has been afebrile, patient is breathing comfortably and is currently on 3 L nasal cannula oxygen, patient denies having any significant cough no chest pain, patient denies nausea vomiting or diarrhea and no abdominal pain denies any worsening pain to the right foot area. Patient white count is down to 10.8, creatinine 6.70 cultures with Enterococcus faecalis and strep Objective - Vital Signs Vital signs: Vital Signs Temp 98.0 F 06/20/24 07:10 Pulse 68 06/20/24 10:10 Resp 16 06/20/24 07:10 BP 118/74 06/20/24 07:10 Pulse Ox 97 06/20/24 07:10 FiO2 21 06/17/24 08:44 Intake & Output 06/19/24 06/20/24 06/20/24 18:59 06:59 18:59 Intake Total 118 118 Output Total 300 Balance 118 -300 118 Weight 177.5 kg Intake: Oral 118 118 Output: Urine 300 Stool 0 Other: Voiding Method Indwelling Catheter Indwelling Catheter - Exam GENERAL DESCRIPTION: Middle-age male lying in bed in no distress RESPIRATORY SYSTEM: Unlabored breathing , decreased breath sounds at bases HEART: S1 S2 regular rate and rhythm , ABDOMEN: Soft , no tenderness EXTREMITIES: Right foot wound is currently covered with a wound VAC - Labs CBC & Chem 7: 06/20/24 07:52 06/20/24 07:52 Labs: Abnormal Lab Results - Last 24 Hours (Table) 06/19/24 06/19/24 06/19/24 Range/Units 12:48 17:52 20:02 WBC (3.8-10.6) k/uL RBC (4.30-5.90) m/uL Hgb (13.0-17.5) gm/dL Hct (39.0-53.0) % MCHC (31.0-37.0) g/dL Neutrophils # (1.3-7.7) k/uL Lymphocytes # (1.0-4.8) k/uL Sodium (137-145) mmol/L Chloride (98-107) mmol/L BUN (9-20) mg/dL Creatinine (0.66-1.25) mg/dL Glucose (74-99) mg/dL POC Glucose (mg/dL) 229 H 243 H 220 H (70-110) mg/dL Calcium (8.4-10.2) mg/dL 06/20/24 06/20/24 06/20/24 Range/Units 05:45 07:52 07:52 WBC 10.9 H (3.8-10.6) k/uL RBC 2.62 L (4.30-5.90) m/uL Hgb 7.4 L (13.0-17.5) gm/dL Hct 24.2 L (39.0-53.0) % MCHC 30.4 L (31.0-37.0) g/dL Neutrophils # 9.0 H (1.3-7.7) k/uL Lymphocytes # 0.8 L (1.0-4.8) k/uL Sodium 132 L (137-145) mmol/L Chloride 96 L (98-107) mmol/L BUN 61 H (9-20) mg/dL Creatinine 6.70 H (0.66-1.25) mg/dL Glucose 171 H (74-99) mg/dL POC Glucose (mg/dL) 184 H (70-110) mg/dL Calcium 7.8 L (8.4-10.2) mg/dL Microbiology - Last 24 Hours (Table) 06/17/24 13:30 Gram Stain - Preliminary Foot - Right Tissue Culture - Preliminary Enterococcus faecalis Strep agalactiae - (group b) Assessment and Plan (1) Diabetic foot infection Current Visit: Yes Status: Acute Code(s): E11.628 - TYPE 2 DIABETES MELLITUS WITH OTHER SKIN COMPLICATIONS; L08.9 - LOCAL INFECTION OF THE SKIN AND SUBCUTANEOUS TISSUE, UNSP SNOMED Code(s): 161637550 (2) Foot abscess, right Current Visit: Yes Status: Acute Code(s): L02.611 - CUTANEOUS ABSCESS OF RIGHT FOOT SNOMED Code(s): 71481901461808770 Plan: 1patient with a chronic nonhealing wound on the plantar aspect of the right foot now with evidence of significant foul-smelling drainage and fluctuation concerning for an abscess with the x-ray suggestive of possible gas-forming pathogen we will need to cover for the polymicrobial birdie associated with diabetic foot infection. 2patient with acute on chronic kidney insufficiency and high risk of vancomycin toxicity 3patient is status post surgical debridement of the right foot abscess extending down to the fascia and tendon and deep culture which are currently growing Enterococcus faecalis strep anaerobes 4I will discontinue Zosyn and daptomycin start the patient on Unasyn to cover for the pathogen grown in the culture will likely need IV antibiotics on discharge Dictation was produced using [employer] dictation software. please excuse any grammatical, word or spelling errors. Time with Patient: Less than 30
[2024-06-21 12:16] LABS: Glucose,Whole Blood 100 mg/dL (70-110)
--- NOTE | 2024-06-21 13:07 | P.PN ---
Subjective Progress Note Date: 06/21/24 54-year-old male with a PMH of systolic CHF (EF 20 to 25%), asthma, COPD, diabetes mellitus, and CKD 3B presents with complaints of shortness of breath. Reports 3 weeks ago he started feeling shortness of breath, and states that this time he went to an urgent care where he was prescribed steroids and azithromycin which he reports he finished antibiotic course and steroids. States after completing this he felt slightly better but still had shortness of breath. Notes during this time he has had to sleep sitting on the edge of the bed, admits to orthopnea. States that shortness of breath gets worse on exertion. Admits to seeing increased swelling in his lower extremities compared to before this all started. Of note during recent admission he was treated for foot ulcers, which she reports he follows consistently with wound care outpatient. Admits to a mild cough but denies any sputum production. Denies fever, chills, headache, chest pain, palpitations, nausea, vomiting, diarrhea, constipation. Labs: WBC 12.9, hemoglobin 12.3, D-dimer 1.34, sodium 129, BUN 28, creatinine 1.8, glucose 254, troponin 0.01, BNP 12,200, and viral respiratory panel all negative. Imaging: - EKG done in the ER showed heart rate of 94 bpm, sinus rhythm, possible left atrial enlargement, and QTc 406. - ER CXR: No acute cardiopulmonary disease/process. - ER CTA chest: No evidence of PE, bronchial wall thickening, left upper lung pulmonary nodule measuring 8 mm, hepatic steatosis - CXR from 06/10 independently interpreted shows improved congestion -Echo left ventricular ejection fraction estimated 30 to 35% with severely increased diastolic volume. Severe global hypokinesis of the left ventricle. 06/08/2024 patient seen and examined at bedside. Patient noted that his shortness of breath is improved and only occurs on exertion such as walking. He denies chest pain, calf tenderness, cough, subjective fevers, chills, nausea vomiting, or diarrhea. WBC 9.9 hemoglobin 10.3 platelet count 2 25,000 sodium 134 potassium 3.8 chloride 101 bicarb 30 BUN 30 creatinine 2.14 glucose 131 calcium 7.9 magnesium 2 AST 46 ALT 13 ALP 75 troponin peaked at 0.08 albumin 2.1. Echo left ventricular ejection fraction estimated 30 to 35% with severely increased diastolic volume. Severe global hypokinesis of the left ventricle. 06/09/2024 patient seen and examined at bedside. Patient noted to have improved shortness of breath better than yesterday. No acute events overnight. WBC 15.3 hemoglobin 10.3 platelet count 204,000 sodium 132 potassium 4.2 chloride 100 bicarb 26 BUN 37 creatinine 2.64 glucose 178 calcium 8 06/10/2024 patient seen and examined at bedside. Patient reported that they still experience shortness of breath on exertion. He also reported that they feel they have a lot of wheezing today. No acute events overnight. WBC 14.6 hemoglobin 9.1 MCV 9.8 platelet count 189,000 sodium 129 potassium 4.3 chloride 100 BUN 44 creatinine 3.01 glucose 196 calcium 7.7. CXR from 06/10 independently interpreted shows improved congestion. Ultrasound of the bladder shows no obstruction. 06/11/2024 patient seen and examined at bedside. Patient reported that he still experiences some shortness of breath. No acute events overnight. WBC 17.9 hemoglobin 9.1 platelet count 09/01/1999 sodium 132 potassium 4.1 chloride 100 BUN 49 creatinine 3.42 glucose 116 calcium 8 06/12/2024 patient seen and examined at bedside. No acute events overnight. No new complaints. Cr significantly worsening. Nephrology on board. Tanya is < 20. 06/13/2024 patient seen and examined at bedside. No acute events overnight. Patient has no new complaints. WBC 11.5 hemoglobin 8.4 sodium 130 BUN 67 creatinine 5.69 glucose 174 calcium 7.7 magnesium 2.4 06/14/2024 patient seen and examined at bedside. No acute events overnight. Patient had no new complaints. WBC 10.8 hemoglobin 8.3 platelet count 268,000 sodium 129 potassium 4.5 chloride 96 BUN 16 creatinine 5.5 glucose 188 calcium 7.8 phosphorus 8 magnesium 2.3 06/15/2024 patient seen and examined at bedside. No acute events overnight. Patient reported complaining of discomfort with the Hamilton catheter. WBC 11.8 hemoglobin 8.2 platelet count 272,000 sodium 130 potassium 4.3 chloride 95 BUN 54 creatinine 5.4 glucose 201 calcium 7.8. Fuid balance -2 990 mL hemodialysis 1.5 L taken UO 775mL 06/16/2024 patient seen and examined at bedside. Patient reported to have some confusion overnight. Also that he slept most of the day. No new complaints. WBC 11.5 hemoglobin 8.5 sodium 131 potassium 4.4 bicarb 35 BUN 42 creatinine 4.79 glucose 111 calcium 8.1 ALEKS balance -3848 mL urine output 775 mL. 06/17/2024 patient seen and examined at bedside. Patient has no new complaints. Patient reported to have some confusion in the middle of the night. ALEKS -3 730 mL urine output 750 mL. Still on a Hamilton. Urinalysis so moderate leukocyte esterase, +2 glucose, +2 protein negative nitrates occasional bacteria. WBC 12.1 hemoglobin 8.1 platelet count 325 sodium 131 potassium 4.6 chloride 96 bicarb 28 BUN 58 creatinine 6.77 glucose 108 calcium 8.3 magnesium 2. Right foot x-ray noted to have soft tissue swelling and gas, negative for osteomyelitis, no fracture or dislocation. 06/18/2024 patient seen and examined at bedside. No new complaints. No acute events overnight. ALEKS balance -633 2 mL urine output 350 mL. WBC 11.97 hemoglo bin 7.6 platelet count 338,000 06/19 Patient was seen and examined. No acute events overnight. Maintained on Daptomycin and Zosyn. WCx growing Enterococcus faecalis. CBC and BMP significant for WBC 12.3, RBC 2.85, Hg 8.1, Hct 25.9, Na 131, BUN 46m Cr 5.37, glu 146, Ca 8.1. 06/20/2024 was seen and examined. No acute events overnight. WBC 10.9 hemoglobin 7.4 platelet count 316,000 sodium 132 potassium 4.2 chloride 96 BUN 61 creatinine 6.7 glucose 171 calcium 7.8 06/21/2024 patient seen and examined at bedside. No acute events overnight. No new complaints overnight. POC glucose 172 Gen: In NAD, non-toxic, on 3L NC HEENT: normocephalic, atraumatic, hearing acuity is intant, mucous membranes moist CVS: perfusing all extremities well Respiratory: symmetric chest expansion, no accessory muscle use GI: soft, NTTP, ND : no suprapubic tenderness, no CVA tenderness MSK/Derm: no rashes, cyanosis, chronic wound wrapped in bandaging (ulcers), right foot covered with wound VAC today site clean and dry, wound VAC having some output, pedal edema appreciated, trace to 1+ pitting edema up to the mid calf noted on bilateral lower extremities Neuro: CN II-XII intact, no motor weakness Psych: cooperative, euthymic mood, judgment and insight is intact Assessment/Plan: #CHAVO on CKD stage IIIb secondary to cardiorenal syndrome, improving -Baseline creatinine 1.69-2.2 -Monitor UO. On Hamilton catheter -Continue to monitor daily BMP -Discussed management with nephrology. Farxiga and Cozaar held. Dialysis today. Started on Phoslo and Aranesp. -For permanent catheter placement today -SW arranging outpatient dialysis # Chronic right foot wound rule out infection, necrotic, status post incision and drainage of right foot, improving #Leukocytosis, improving right foot covered with wound VAC today site clean and dry, wound VAC having some output Patient being seen at home wound care. -wound care consulted -Right foot x-ray noted to have soft tissue swelling and gas, negative for osteomyelitis, no fracture or dislocation -Wound cultures positive for polymicrobial organisms -Discontinued Zosyn IVPB every 8 hours and daptomycin 700 mg IVPB every 48 hours on 06/20 -Infectious disease consulted. Continue with Unasyn IVPB daily -Vascular surgery consulted. Status post I&D day 4 today #Acute on chronic hypoxic respiratory failure secondary to CHF exacerbation, improving #Acute on chronic systolic CHF (EF 20 to 25%), NYHA class III, improving #COPD without exacerbation #Hypervolemic hyponatremia, stable -Cardiac monitoring -Supportive oxygen as needed -Fluid restrict to 2 L daily -Daily weights -Strict I's and O's -O2 NC as needed -Ordered DuoNeb 3 ml every 2 hours as needed for shortness of breath or wheezing -Nephrology following. Hemodialysis MWF. -Continue with IV Lasix 60 mg twice daily -ASA 81 resumed -Cardiology consulted. No further intervention recommended. -GDMT: - coreg - losartan held due to CHAVO - not on mineralocorticoid, farxiga due to kidney dysfunction #Cystitis, improved #Anemia of chronic disease superimposed with iron deficiency, stable Chronic Conditions: #Diabetes mellitus, controlled -Hold home medications -Insulin NovoLog sliding scale medium dose ACHS -Accu-Cheks ACHS -Continue home NovoLog 10 units subcu ACHS -levemir 60 units at bedtime #Hypertension -Hold amlodipine and losartan for now F: Oral intake. Restrict to 2 L fluid E: None N: Heart healthy diet with fluid restriction to 2 L DVT prophylaxis: Heparin 5000 units SQ every 8 hours GI prophylaxis: Home omeprazole 20 mg p.o. daily I saw and evaluated the patient during the fernández and critical portions of this encounter, and discussed the case in detail with the resident author of this note, I agree with the Assessment and Plan, and my changes, if any, are noted below. Right foot wound polymicrobial growing Step agalactiae, Enterococcus faecalis, Corynebacterium striatum and Prevotella disiens. Continued on Unasyn by ID. Plans for permenant HD catheter today by Vascular Sx. Case management on board for placement. Objective - Vital Signs Vital signs: Vital Signs Temp 98.2 F 06/21/24 07:40 Pulse 68 06/21/24 09:15 Resp 16 06/21/24 07:40 BP 140/78 06/21/24 07:40 Pulse Ox 94 L 06/21/24 07:40 FiO2 21 06/17/24 08:44 Intake & Output 06/20/24 06/21/24 06/21/24 18:59 06:59 18:59 Intake Total 236 Output Total 350 450 Balance -114 -450 Weight 177 kg Intake: Oral 236 Output: Urine 350 450 Other: Voiding Method Indwelling Catheter Indwelling Catheter Indwelling Catheter - Labs CBC & Chem 7: 06/20/24 07:52 06/20/24 07:52 Labs: Abnormal Lab Results - Last 24 Hours (Table) 06/20/24 06/20/24 06/20/24 Range/Units 11:55 14:15 16:43 POC Glucose (mg/dL) 241 H 201 H 237 H (70-110) mg/dL 06/20/24 06/21/24 Range/Units 20:05 05:52 POC Glucose (mg/dL) 230 H 172 H (70-110) mg/dL Microbiology - Last 24 Hours (Table) 06/17/24 13:30 Anaerobic Culture - Preliminary Foot - Right Corynebacterium striatum group Prevotella disiens 06/17/24 13:30 Gram Stain - Preliminary Foot - Right Tissue Culture - Preliminary Enterococcus faecalis Strep agalactiae - (group b)
--- NOTE | 2024-06-21 13:29 | P.PN ---
Subjective Progress Note Date: 06/21/24 Principal diagnosis: Reason for follow-up is right diabetic foot infection Patient is a 54-year-old male with a past medical history significant for COPD diabetes mellitus [place] sleep apnea presenting the hospital initially for evaluation of increasing shortness of breath patient also have a right diabetic foot ulcer being treated by the wound care noticed to have worsening diagnosed with an abscess prompting this consultation patient is status post extensive surgical debridement which was sent down to the fascia and tendon. On today's evaluation that is 06/21/2024, Patient is afebrile this morning patient denies having any chest pain shortness of breath or cough, the patient is currently on 2 L nasal oxygen, patient denies any abdominal pain no diarrhea no nausea no vomiting denies pain to the right foot wound. No new lab has been obtained today Objective - Vital Signs Vital signs: Vital Signs Temp 98.4 F 06/21/24 13:15 Pulse 58 L 06/21/24 13:15 Resp 18 06/21/24 13:15 BP 161/79 06/21/24 13:15 Pulse Ox 94 L 06/21/24 07:40 FiO2 21 06/17/24 08:44 Intake & Output 06/20/24 06/21/24 06/21/24 18:59 06:59 18:59 Intake Total 236 650 Output Total 192 214 7986 Balance -114 -239 -8334 Weight 177 kg Intake: Oral 236 Hemodialysis 650 Output: Urine 350 450 Hemodialysis 4000 Hemodialysis Net Amount 3350 Other: Voiding Method Indwelling Catheter Indwelling Catheter Indwelling Catheter - Exam GENERAL DESCRIPTION: Middle-age male lying in bed in no distress RESPIRATORY SYSTEM: Unlabored breathing , decreased breath sounds at bases HEART: S1 S2 regular rate and rhythm , ABDOMEN: Soft , no tenderness EXTREMITIES: Right foot wound is currently covered with a wound VAC - Labs CBC & Chem 7: 06/20/24 07:52 06/20/24 07:52 Labs: Abnormal Lab Results - Last 24 Hours (Table) 06/20/24 06/20/24 06/20/24 Range/Units 14:15 16:43 20:05 POC Glucose (mg/dL) 201 H 237 H 230 H (70-110) mg/dL 06/21/24 Range/Units 05:52 POC Glucose (mg/dL) 172 H (70-110) mg/dL Microbiology - Last 24 Hours (Table) 06/17/24 13:30 Anaerobic Culture - Preliminary Foot - Right Corynebacterium striatum group Prevotella disiens 06/17/24 13:30 Gram Stain - Preliminary Foot - Right Tissue Culture - Preliminary Enterococcus faecalis Strep agalactiae - (group b) Assessment and Plan (1) Diabetic foot infection Current Visit: Yes Status: Acute Code(s): E11.628 - TYPE 2 DIABETES MELLITUS WITH OTHER SKIN COMPLICATIONS; L08.9 - LOCAL INFECTION OF THE SKIN AND SUBCUTANEOUS TISSUE, UNSP SNOMED Code(s): 230918508 (2) Foot abscess, right Current Visit: Yes Status: Acute Code(s): L02.611 - CUTANEOUS ABSCESS OF RIGHT FOOT SNOMED Code(s): 75496101758682801 Plan: 1patient with a chronic nonhealing wound on the plantar aspect of the right foot now with evidence of significant foul-smelling drainage and fluctuation concerning for an abscess with the x-ray suggestive of possible gas-forming pathogen we will need to cover for the polymicrobial birdie associated with diabetic foot infection. 2patient with acute on chronic kidney insufficiency and high risk of vancomycin toxicity 3patient is status post surgical debridement of the right foot abscess extending down to the fascia and tendon and deep culture which are currently growing Enterococcus faecalis strep anaerobes 4patient is currently being treated Unasyn to cover for the pathogen grown in the culture will likely need IV antibiotics on discharge we will get a PICC line if okay with nephrology Dictation was produced using [employer] dictation software. please excuse any grammatical, word or spelling errors. Time with Patient: Less than 30
[2024-06-21] MEDS: fentaNYL (PF) 50 MCG/ML 2 ML AMP IVP ONE (15:04)
[2024-06-21] MEDS: LIDOCAINE 1% INJ 10MG/ML (20 ML MDV) SQ ONE (15:04)
[2024-06-21] MEDS: MIDAZOLAM 2 MG/2 ML VIAL IVP ONE (15:04)
[2024-06-21] MEDS: HEPARIN SODIUM,PORCINE (1 ML) 2,500 UNIT in SODIUM CHLORIDE 0.9% 250 ML IRRIGATION ONE (15:15)
[2024-06-21] MEDS: SODIUM CHLORIDE 0.9% 250 ML IV ONE (15:15)
--- NOTE | 2024-06-21 16:44 | P.PCN ---
Description of Procedure: Preop diagnosis acute chronic renal failure Postop the same Procedure placement of a 23 cm dialysis catheter right jugular approach Procedure this patient was seen in the in the [employer] this patient had a right IJ catheter placed in the past right neck and chest was prepped draped preparatory to start manner patient is an IV antibiotic the guidewire was passed which which was parked at the inferior vena cava. Catheter was removed a tunnel was created through the tunnel we brought 23 cm dialysis catheter sheath was advanced. The guidewire through the sheath we introduced dialysis catheter tip with catheter superior vena cava atrial junction flushed with heparin saline hep-locked secured with 3-0 nylon dressing applied patient tarted the procedure well
[2024-06-21 16:54] LABS: Glucose,Whole Blood 111 mg/dL (70-110)
[2024-06-21 19:34] LABS: Glucose,Whole Blood 236 mg/dL (70-110)
--- NOTE | 2024-06-21 22:34 | P.PN ---
Subjective Patient is seen for follow-up for acute kidney injury currently maintained on hemodialysis. Status post hemodialysis yesterday with UF of 3.3 L No significant complaints today. Blood pressure is on the lower side 24-hour urine output at 800 mL Maintained on Lasix 60 mg every 12 hours. Objective - Vital Signs Vital signs: Vital Signs Temp 99.6 F 06/21/24 20:00 Pulse 61 06/21/24 20:00 Resp 16 06/21/24 20:00 BP 116/72 06/21/24 20:00 Pulse Ox 90 L 06/21/24 20:00 FiO2 21 06/17/24 08:44 Intake & Output 06/21/24 06/21/24 06/22/24 06:59 18:59 06:59 Intake Total 1201 Output Total 450 7570 Balance -450 -6301 Weight 177 kg Intake: IV 75 Oral 476 Hemodialysis 650 Output: Urine 450 220 Hemodialysis 4000 Hemodialysis Net Amount 3350 Other: Voiding Method Indwelling Catheter Indwelling Catheter Indwelling Catheter - Exam Patient is sleeping but arousable. No acute distress. Right foot with wound VAC Examination of the heart S1 and S2 Examination of the lungs bilateral breath sounds are heard Abdomen is soft morbidly obese Bilateral lower extremities show chronic skin changes, right foot wound with wound VAC - Labs CBC & Chem 7: 06/20/24 07:52 06/20/24 07:52 Labs: Abnormal Lab Results - Last 24 Hours (Table) 06/21/24 06/21/24 06/21/24 Range/Units 05:52 16:53 19:33 POC Glucose (mg/dL) 172 H 111 H 236 H (70-110) mg/dL Assessment and Plan Assessment: 1. Acute kidney injury secondary to ATN secondary to cardiorenal syndrome as well as contrast associated acute kidney injury. Patient received IV contrast o n June 07, 2024. Creatinine 1.8 on admission and is up to 5.69 dated June 13, 2024. Kidney ultrasound showed no evidence of hydronephrosis. Started on hemodialysis June 13, 2024 via temporary right IJ catheter. Urine output at 300 to 400 cc/day 2. Chronic kidney disease stage IIIb with baseline creatinine 1.8-2 secondary to diabetic kidney disease. 3. Acute on chronic systolic CHF ejection fraction of 30 to 35%. 4. Diabetes mellitus. 5. Anemia of chronic kidney disease. Iron deficiency noted. Status post IV iron. On Aranesp. 6. Hypervolemic hyponatremia. Stable. 7. Volume overload. Improving with diuresis and ultrafiltration. 8. Chronic kidney disease mineral bone disease. Phosphorus level 8.0 dated June 14, 2024. On PhosLo. Plan: Continue with hemodialysis. May continue with IV Lasix Accurate I's and O's. Repeat labs in a.m. Will need to consult vascular surgery for permacath placement as patient remains hemodialysis dependent.
[2024-06-22 06:16] LABS: Glucose,Whole Blood 195 mg/dL (70-110)
[2024-06-22 09:20] LABS: Basophils # (A) 0.02 X 10*3/uL (0.00-0.10); Basophils % (A) 0.2 %; Eosinophils # (A) 0.37 X 10*3/uL (0.04-0.35); HGB 7.1 g/dL (13.0-17.0); Lymphocytes # (A) 0.74 X 10*3/uL (0.90-5.00); Lymphocytes % (A) 7.9 %; MCH 27.3 pg (27.0-32.0); MCHC 29.6 g/dL (32.0-37.0); MCV 92.3 FL (80.0-97.0); Mean Platelet Volume 10.2 FL (9.5-12.2); Monocytes % (A) 7.5 %; NRBC Per 100 WBC 0 X 10*3/uL (0.00-0.01); Neutrophils # (A) 7.43 X 10*3/uL (1.80-7.70); Neutrophils % (A) 79.8 %; Platelet Count 300 X 10*3/uL (140-440); RDW 15.1 % (11.5-14.5); WBC 9.32 X 10*3/uL (4.50-10.00)
[2024-06-22 10:26] LABS: BUN/Creat Ratio 8.49 Ratio (12.00-20.00); Blood Urea Nitrogen 50.1 mg/dL (9.0-27.0); Calcium 7.9 mg/dL (8.7-10.3); Carbon Dioxide 23.9 mmol/L (21.6-31.8); Chloride 94 mmol/L (96-109); Glucose 185 mg/dL (70-110); Potassium 4.5 mmol/L (3.5-5.5); Sodium 132 mmol/L (135-145)
--- NOTE | 2024-06-22 11:18 | P.PN ---
Subjective Progress Note Date: 06/22/24 54-year-old male with a PMH of systolic CHF (EF 20 to 25%), asthma, COPD, diabetes mellitus, and CKD 3B presents with complaints of shortness of breath. Reports 3 weeks ago he started feeling shortness of breath, and states that this time he went to an urgent care where he was prescribed steroids and azithromycin which he reports he finished antibiotic course and steroids. States after completing this he felt slightly better but still had shortness of breath. Notes during this time he has had to sleep sitting on the edge of the bed, admits to orthopnea. States that shortness of breath gets worse on exertion. Admits to seeing increased swelling in his lower extremities compared to before this all started. Of note during recent admission he was treated for foot ulcers, which she reports he follows consistently with wound care outpatient. Admits to a mild cough but denies any sputum production. Denies fever, chills, headache, chest pain, palpitations, nausea, vomiting, diarrhea, constipation. Labs: WBC 12.9, hemoglobin 12.3, D-dimer 1.34, sodium 129, BUN 28, creatinine 1.8, glucose 254, troponin 0.01, BNP 12,200, and viral respiratory panel all negative. Imaging: - EKG done in the ER showed heart rate of 94 bpm, sinus rhythm, possible left atrial enlargement, and QTc 406. - ER CXR: No acute cardiopulmonary disease/process. - ER CTA chest: No evidence of PE, bronchial wall thickening, left upper lung pulmonary nodule measuring 8 mm, hepatic steatosis - CXR from 06/10 independently interpreted shows improved congestion -Echo left ventricular ejection fraction estimated 30 to 35% with severely increased diastolic volume. Severe global hypokinesis of the left ventricle. 06/08/2024 patient seen and examined at bedside. Patient noted that his shortness of breath is improved and only occurs on exertion such as walking. He denies chest pain, calf tenderness, cough, subjective fevers, chills, nausea vomiting, or diarrhea. WBC 9.9 hemoglobin 10.3 platelet count 2 25,000 sodium 134 potassium 3.8 chloride 101 bicarb 30 BUN 30 creatinine 2.14 glucose 131 calcium 7.9 magnesium 2 AST 46 ALT 13 ALP 75 troponin peaked at 0.08 albumin 2.1. Echo left ventricular ejection fraction estimated 30 to 35% with severely increased diastolic volume. Severe global hypokinesis of the left ventricle. 06/09/2024 patient seen and examined at bedside. Patient noted to have improved shortness of breath better than yesterday. No acute events overnight. WBC 15.3 hemoglobin 10.3 platelet count 204,000 sodium 132 potassium 4.2 chloride 100 bicarb 26 BUN 37 creatinine 2.64 glucose 178 calcium 8 06/10/2024 patient seen and examined at bedside. Patient reported that they still experience shortness of breath on exertion. He also reported that they feel they have a lot of wheezing today. No acute events overnight. WBC 14.6 hemoglobin 9.1 MCV 9.8 platelet count 189,000 sodium 129 potassium 4.3 chloride 100 BUN 44 creatinine 3.01 glucose 196 calcium 7.7. CXR from 06/10 independently interpreted shows improved congestion. Ultrasound of the bladder shows no obstruction. 06/11/2024 patient seen and examined at bedside. Patient reported that he still experiences some shortness of breath. No acute events overnight. WBC 17.9 hemoglobin 9.1 platelet count 09/01/1999 sodium 132 potassium 4.1 chloride 100 BUN 49 creatinine 3.42 glucose 116 calcium 8 06/12/2024 patient seen and examined at bedside. No acute events overnight. No new complaints. Cr significantly worsening. Nephrology on board. Tanya is < 20. 06/13/2024 patient seen and examined at bedside. No acute events overnight. Patient has no new complaints. WBC 11.5 hemoglobin 8.4 sodium 130 BUN 67 creatinine 5.69 glucose 174 calcium 7.7 magnesium 2.4 06/14/2024 patient seen and examined at bedside. No acute events overnight. Patient had no new complaints. WBC 10.8 hemoglobin 8.3 platelet count 268,000 sodium 129 potassium 4.5 chloride 96 BUN 16 creatinine 5.5 glucose 188 calcium 7.8 phosphorus 8 magnesium 2.3 06/15/2024 patient seen and examined at bedside. No acute events overnight. Patient reported complaining of discomfort with the Hamilton catheter. WBC 11.8 hemoglobin 8.2 platelet count 272,000 sodium 130 potassium 4.3 chloride 95 BUN 54 creatinine 5.4 glucose 201 calcium 7.8. Fuid balance -2 990 mL hemodialysis 1.5 L taken UO 775mL 06/16/2024 patient seen and examined at bedside. Patient reported to have some confusion overnight. Also that he slept most of the day. No new complaints. WBC 11.5 hemoglobin 8.5 sodium 131 potassium 4.4 bicarb 35 BUN 42 creatinine 4.79 glucose 111 calcium 8.1 ALEKS balance -3848 mL urine output 775 mL. 06/17/2024 patient seen and examined at bedside. Patient has no new complaints. Patient reported to have some confusion in the middle of the night. ALEKS -3 730 mL urine output 750 mL. Still on a Hamilton. Urinalysis so moderate leukocyte esterase, +2 glucose, +2 protein negative nitrates occasional bacteria. WBC 12.1 hemoglobin 8.1 platelet count 325 sodium 131 potassium 4.6 chloride 96 bicarb 28 BUN 58 creatinine 6.77 glucose 108 calcium 8.3 magnesium 2. Right foot x-ray noted to have soft tissue swelling and gas, negative for osteomyelitis, no fracture or dislocation. 06/18/2024 patient seen and examined at bedside. No new complaints. No acute events overnight. ALEKS balance -633 2 mL urine output 350 mL. WBC 11.97 hemoglo bin 7.6 platelet count 338,000 06/19 Patient was seen and examined. No acute events overnight. Maintained on Daptomycin and Zosyn. WCx growing Enterococcus faecalis. CBC and BMP significant for WBC 12.3, RBC 2.85, Hg 8.1, Hct 25.9, Na 131, BUN 46m Cr 5.37, glu 146, Ca 8.1. 06/20/2024 was seen and examined. No acute events overnight. WBC 10.9 hemoglobin 7.4 platelet count 316,000 sodium 132 potassium 4.2 chloride 96 BUN 61 creatinine 6.7 glucose 171 calcium 7.8 06/21/2024 patient seen and examined at bedside. No acute events overnight. No new complaints overnight. POC glucose 172 06/22/2024 patient seen and examined at bedside. No acute events overnight. No new complaints overnight. Permanent dialysis catheter placed yesterday afternoon. WBC 9.32 hemoglobin 7.1 platelet count 300,000 sodium 132 potassium 4.5 BUN 15 creatinine 5.9 glucose 185 calcium 7.9. Still waiting on placement. Gen: In NAD, non-toxic, on 3L NC HEENT: normocephalic, atraumatic, hearing acuity is intant, mucous membranes moist CVS: perfusing all extremities well Respiratory: symmetric chest expansion, no accessory muscle use GI: soft, NTTP, ND : no suprapubic tenderness, no CVA tenderness MSK/Derm: no rashes, cyanosis, chronic wound wrapped in bandaging (ulcers), right foot covered with wound VAC today site clean and dry, wound VAC having some output, pedal edema appreciated, trace to 1+ pitting edema up to the mid calf noted on bilateral lower extremities, permcath port on R upper chest with dressing clean and dry no erythema or swelling on surrounding skin Neuro: CN II-XII intact, no motor weakness Psych: cooperative, euthymic mood, judgment and insight is intact Assessment/Plan: #CHAVO on CKD stage IIIb secondary to cardiorenal syndrome, s/p temporary and permanent hemodialysis catheter placement, improving -Baseline creatinine 1.69-2.2 -Monitor UO. On Hamilton catheter -Continue to monitor daily BMP -Nephrology note reviewed, continue dialysis -Farxiga and Cozaar held. Started on Phoslo and Aranesp. -Permanent catheter placement POD 1 -SW arranging outpatient dialysis # Right foot abscess, status post incision and drainage of right foot, improving, wound VAC in place #Diabetic foot infection #Leukocytosis, improving right foot covered with wound VAC today site clean and dry, wound VAC having some output Patient being seen at home wound care. -wound care consulted -Right foot x-ray noted to have soft tissue swelling and gas, negative for osteomyelitis, no fracture or dislocation -Wound cultures positive for polymicrobial organisms -Discontinued Zosyn IVPB every 8 hours and daptomycin 700 mg IVPB every 48 hours on 06/20 -Infectious disease following continue with Unasyn IVPB daily -Vascular surgery following status post I&D day 5 today #Acute on chronic hypoxic respiratory failure secondary to CHF exacerbation, improving #Acute on chronic systolic CHF (EF 20 to 25%), NYHA class III, improving #COPD without exacerbation #Hypervolemic hyponatremia, stable -Cardiac monitoring -Supportive oxygen as needed -Fluid restrict to 2 L daily -Daily weights -Strict I's and O's -O2 NC as needed -Ordered DuoNeb 3 ml every 2 hours as needed for shortness of breath or wheezing -Nephrology following. Hemodialysis MWF. -Continue with IV Lasix 60 mg twice daily, monitor electrolytes -ASA 81 resumed -Cardiology consulted. No further intervention recommended. -GDMT: - coreg - losartan held due to CHAVO - not on mineralocorticoid, farxiga due to kidney dysfunction #Anemia of chronic disease superimposed with iron deficiency, stable Hemoglobin 7.1 today. Will transfuse if hemoglobin goes to less than 7. Monitor CBC Chronic Conditions: #Diabetes mellitus, controlled -Hold home medications -Insulin NovoLog sliding scale medium dose ACHS -Accu-Cheks ACHS -Continue home NovoLog 10 units subcu ACHS -levemir 60 units at bedtime #Hypertension -Hold amlodipine and losartan for now F: Oral intake. Restrict to 2 L fluid E: None N: Heart healthy diet with fluid restriction to 2 L DVT prophylaxis: Heparin 5000 units SQ every 8 hours GI prophylaxis: Home omeprazole 20 mg p.o. daily I have seen and evaluated the patient today. Discussed with the resident and agree with the residents finding and plan as documented in the resident's note. Changes highlighted in blue font. Objective - Vital Signs Vital signs: Vital Signs Temp 98.1 F 06/22/24 07:54 Pulse 66 06/22/24 07:54 Resp 16 06/22/24 07:54 BP 138/81 06/22/24 07:54 Pulse Ox 96 06/22/24 07:54 FiO2 21 06/17/24 08:44 Intake & Output 06/21/24 06/22/24 06/22/24 18:59 06:59 18:59 Intake Total 1201 477 Output Total 7570 750 Balance -6369 -273 Weight 178 kg Intake: IV 75 Oral 476 477 Hemodialysis 650 Output: Urine 220 750 Hemodialysis 4000 Hemodialysis Net Amount 3350 Other: Voiding Method Indwelling Catheter Indwelling Catheter - Labs CBC & Chem 7: 06/22/24 05:28 06/22/24 05:28 Labs: Abnormal Lab Results - Last 24 Hours (Table) 06/21/24 06/21/24 06/22/24 Range/Units 16:53 19:33 06:14 POC Glucose (mg/dL) 111 H 236 H 195 H (70-110) mg/dL
[2024-06-22 12:09] LABS: Glucose,Whole Blood 215 mg/dL (70-110)
--- NOTE | 2024-06-22 14:03 | P.PN ---
Subjective Patient is seen for follow-up for acute kidney injury currently maintained on hemodialysis. Status post hemodialysis yesterday with UF of 3.3 L No significant complaints today. Blood pressure is on the lower side 24-hour urine output at 800 mL Maintained on Lasix 60 mg every 12 hours. S/p right IJ permacath placement yesterday Objective - Vital Signs Vital signs: Vital Signs Temp 98.1 F 06/22/24 07:54 Pulse 74 06/22/24 12:37 Resp 16 06/22/24 07:54 BP 138/81 06/22/24 07:54 Pulse Ox 96 06/22/24 07:54 FiO2 21 06/17/24 08:44 Intake & Output 06/21/24 06/22/24 06/22/24 18:59 06:59 18:59 Intake Total 1201 477 Output Total 7570 750 Balance -6369 -273 Weight 178 kg Intake: IV 75 Oral 476 477 Hemodialysis 650 Output: Urine 220 750 Hemodialysis 4000 Hemodialysis Net Amount 3350 Other: Voiding Method Indwelling Catheter Indwelling Catheter Indwelling Catheter - Exam Patient is sleeping but arousable. No acute distress. Right foot with wound VAC Examination of the heart S1 and S2 Examination of the lungs bilateral breath sounds are heard Abdomen is soft morbidly obese Bilateral lower extremities show chronic skin changes, right foot wound with wound VAC - Labs CBC & Chem 7: 06/22/24 05:28 06/22/24 05:28 Labs: Abnormal Lab Results - Last 24 Hours (Table) 06/21/24 06/21/24 06/22/24 Range/Units 16:53 19:33 05:28 RBC 2.60 L (4.40-5.60) X 10*6/uL Hgb 7.1 L (13.0-17.0) g/dL Hct 24.0 L (39.6-50.0) % MCHC 29.6 L (32.0-37.0) g/dL RDW 15.1 H (11.5-14.5) % Immature Gran # 0.06 H (0.00-0.04) X 10*3/uL Lymphocytes # 0.74 L (0.90-5.00) X 10*3/uL Eosinophils # 0.37 H (0.04-0.35) X 10*3/uL Sodium (135-145) mmol/L Chloride (96-109) mmol/L Anion Gap (4.00-12.00) mmol/L BUN (9.0-27.0) mg/dL Creatinine (0.6-1.5) mg/dL Est GFR (CKD-EPI) (>=60) BUN/Creatinine Ratio (12.00-20.00) Ratio Glucose (70-110) mg/dL POC Glucose (mg/dL) 111 H 236 H (70-110) mg/dL Calcium (8.7-10.3) mg/dL 06/22/24 06/22/24 06/22/24 Range/Units 05:28 06:14 12:07 RBC (4.40-5.60) X 10*6/uL Hgb (13.0-17.0) g/dL Hct (39.6-50.0) % MCHC (32.0-37.0) g/dL RDW (11.5-14.5) % Immature Gran # (0.00-0.04) X 10*3/uL Lymphocytes # (0.90-5.00) X 10*3/uL Eosinophils # (0.04-0.35) X 10*3/uL Sodium 132 L (135-145) mmol/L Chloride 94 L (96-109) mmol/L Anion Gap 14.10 H (4.00-12.00) mmol/L BUN 50.1 H (9.0-27.0) mg/dL Creatinine 5.9 H (0.6-1.5) mg/dL Est GFR (CKD-EPI) 11 L (>=60) BUN/Creatinine Ratio 8.49 L (12.00-20.00) Ratio Glucose 185 H (70-110) mg/dL POC Glucose (mg/dL) 195 H 215 H (70-110) mg/dL Calcium 7.9 L (8.7-10.3) mg/dL Microbiology - Last 24 Hours (Table) 06/17/24 13:30 Anaerobic Culture - Final Foot - Right Corynebacterium striatum group Prevotella disiens Assessment and Plan Assessment: 1. Acute kidney injury secondary to ATN secondary to cardiorenal syndrome as well as contrast associated acute kidney injury. Patient received IV contrast on June 07, 2024. Creatinine 1.8 on admission and is up to 5.69 dated June 13, 2024. Kidney ultrasound showed no evidence of hydronephrosis. Started on hemodialysis June 13, 2024 via temporary right IJ catheter. Urine output at 300 to 800 cc/day 2. Chronic kidney disease stage IIIb with baseline creatinine 1.8-2 secondary to diabetic kidney disease. 3. Acute on chronic systolic CHF ejection fraction of 30 to 35%. 4. Diabetes mellitus. 5. Anemia of chronic kidney disease. Iron deficiency noted. Status post IV iron. On Aranesp. 6. Hypervolemic hyponatremia. Stable. 7. Volume overload. Improving with diuresis and ultrafiltration. 8. Chronic kidney disease mineral bone disease. Phosphorus level 8.0 dated June 14, 2024. On PhosLo. Plan: Continue with hemodialysis. May continue with IV Lasix Accurate I's and O's. Repeat labs in a.m.
--- NOTE | 2024-06-22 16:16 | P.PN ---
Progress Note - Text 54-year gentleman history of chronic failure will change dialysis catheter yesterday right jugular approach patient had infected wound right foot plantar aspect had a extensive debridement patient is on wound VAC and I IV antibiotic under care of infectious disease wound VAC will be changed on Thursday continue with local wound care
[2024-06-22 17:20] LABS: Glucose,Whole Blood 138 mg/dL (70-110)
[2024-06-22 19:58] LABS: Glucose,Whole Blood 157 mg/dL (70-110)
[2024-06-23 06:22] LABS: Glucose,Whole Blood 131 mg/dL (70-110)
[2024-06-23 08:32] LABS: Basophils # (A) 0.03 X 10*3/uL (0.00-0.10); Basophils % (A) 0.3 %; Eosinophils # (A) 0.31 X 10*3/uL (0.04-0.35); Eosinophils % (A) 3.5 %; HCT 26.5 % (39.6-50.0); HGB 7.9 g/dL (13.0-17.0); Lymphocytes # (A) 0.73 X 10*3/uL (0.90-5.00); Lymphocytes % (A) 8.2 %; MCH 27.6 pg (27.0-32.0); MCHC 29.8 g/dL (32.0-37.0); MCV 92.7 FL (80.0-97.0); Mean Platelet Volume 10.1 FL (9.5-12.2); Monocytes # (A) 0.65 X 10*3/uL (0.20-1.00); Monocytes % (A) 7.3 %; NRBC Per 100 WBC 0 X 10*3/uL (0.00-0.01); Neutrophils # (A) 7.08 X 10*3/uL (1.80-7.70); Neutrophils % (A) 80.1 %; Platelet Count 303 X 10*3/uL (140-440); RBC 2.86 X 10*6/uL (4.40-5.60); RDW 15.2 % (11.5-14.5); WBC 8.85 X 10*3/uL (4.50-10.00)
[2024-06-23 08:50] LABS: BUN/Creat Ratio 8.69 Ratio (12.00-20.00); Blood Urea Nitrogen 58.2 mg/dL (9.0-27.0); Calcium 8.5 mg/dL (8.7-10.3); Carbon Dioxide 24.9 mmol/L (21.6-31.8); Chloride 96 mmol/L (96-109); Glucose 126 mg/dL (70-110); Potassium 4.9 mmol/L (3.5-5.5); Sodium 133 mmol/L (135-145)
--- NOTE | 2024-06-23 10:37 | P.PN ---
Subjective Progress Note Date: 06/23/24 54-year-old male with a PMH of systolic CHF (EF 20 to 25%), asthma, COPD, diabetes mellitus, and CKD 3B presents with complaints of shortness of breath. Reports 3 weeks ago he started feeling shortness of breath, and states that this time he went to an urgent care where he was prescribed steroids and azithromycin which he reports he finished antibiotic course and steroids. States after completing this he felt slightly better but still had shortness of breath. Notes during this time he has had to sleep sitting on the edge of the bed, admits to orthopnea. States that shortness of breath gets worse on exertion. Admits to seeing increased swelling in his lower extremities compared to before this all started. Of note during recent admission he was treated for foot ulcers, which she reports he follows consistently with wound care outpatient. Admits to a mild cough but denies any sputum production. Denies fever, chills, headache, chest pain, palpitations, nausea, vomiting, diarrhea, constipation. Labs: WBC 12.9, hemoglobin 12.3, D-dimer 1.34, sodium 129, BUN 28, creatinine 1.8, glucose 254, troponin 0.01, BNP 12,200, and viral respiratory panel all negative. Imaging: - EKG done in the ER showed heart rate of 94 bpm, sinus rhythm, possible left atrial enlargement, and QTc 406. - ER CXR: No acute cardiopulmonary disease/process. - ER CTA chest: No evidence of PE, bronchial wall thickening, left upper lung pulmonary nodule measuring 8 mm, hepatic steatosis - CXR from 06/10 independently interpreted shows improved congestion -Echo left ventricular ejection fraction estimated 30 to 35% with severely increased diastolic volume. Severe global hypokinesis of the left ventricle. 06/08/2024 patient seen and examined at bedside. Patient noted that his shortness of breath is improved and only occurs on exertion such as walking. He denies chest pain, calf tenderness, cough, subjective fevers, chills, nausea vomiting, or diarrhea. WBC 9.9 hemoglobin 10.3 platelet count 2 25,000 sodium 134 potassium 3.8 chloride 101 bicarb 30 BUN 30 creatinine 2.14 glucose 131 calcium 7.9 magnesium 2 AST 46 ALT 13 ALP 75 troponin peaked at 0.08 albumin 2.1. Echo left ventricular ejection fraction estimated 30 to 35% with severely increased diastolic volume. Severe global hypokinesis of the left ventricle. 06/09/2024 patient seen and examined at bedside. Patient noted to have improved shortness of breath better than yesterday. No acute events overnight. WBC 15.3 hemoglobin 10.3 platelet count 204,000 sodium 132 potassium 4.2 chloride 100 bicarb 26 BUN 37 creatinine 2.64 glucose 178 calcium 8 06/10/2024 patient seen and examined at bedside. Patient reported that they still experience shortness of breath on exertion. He also reported that they feel they have a lot of wheezing today. No acute events overnight. WBC 14.6 hemoglobin 9.1 MCV 9.8 platelet count 189,000 sodium 129 potassium 4.3 chloride 100 BUN 44 creatinine 3.01 glucose 196 calcium 7.7. CXR from 06/10 independently interpreted shows improved congestion. Ultrasound of the bladder shows no obstruction. 06/11/2024 patient seen and examined at bedside. Patient reported that he still experiences some shortness of breath. No acute events overnight. WBC 17.9 hemoglobin 9.1 platelet count 09/01/1999 sodium 132 potassium 4.1 chloride 100 BUN 49 creatinine 3.42 glucose 116 calcium 8 06/12/2024 patient seen and examined at bedside. No acute events overnight. No new complaints. Cr significantly worsening. Nephrology on board. Tanya is < 20. 06/13/2024 patient seen and examined at bedside. No acute events overnight. Patient has no new complaints. WBC 11.5 hemoglobin 8.4 sodium 130 BUN 67 creatinine 5.69 glucose 174 calcium 7.7 magnesium 2.4 06/14/2024 patient seen and examined at bedside. No acute events overnight. Patient had no new complaints. WBC 10.8 hemoglobin 8.3 platelet count 268,000 sodium 129 potassium 4.5 chloride 96 BUN 16 creatinine 5.5 glucose 188 calcium 7.8 phosphorus 8 magnesium 2.3 06/15/2024 patient seen and examined at bedside. No acute events overnight. Patient reported complaining of discomfort with the Hamilton catheter. WBC 11.8 hemoglobin 8.2 platelet count 272,000 sodium 130 potassium 4.3 chloride 95 BUN 54 creatinine 5.4 glucose 201 calcium 7.8. Fuid balance -2 990 mL hemodialysis 1.5 L taken UO 775mL 06/16/2024 patient seen and examined at bedside. Patient reported to have some confusion overnight. Also that he slept most of the day. No new complaints. WBC 11.5 hemoglobin 8.5 sodium 131 potassium 4.4 bicarb 35 BUN 42 creatinine 4.79 glucose 111 calcium 8.1 ALEKS balance -3848 mL urine output 775 mL. 06/17/2024 patient seen and examined at bedside. Patient has no new complaints. Patient reported to have some confusion in the middle of the night. ALEKS -3 730 mL urine output 750 mL. Still on a Hamilton. Urinalysis so moderate leukocyte esterase, +2 glucose, +2 protein negative nitrates occasional bacteria. WBC 12.1 hemoglobin 8.1 platelet count 325 sodium 131 potassium 4.6 chloride 96 bicarb 28 BUN 58 creatinine 6.77 glucose 108 calcium 8.3 magnesium 2. Right foot x-ray noted to have soft tissue swelling and gas, negative for osteomyelitis, no fracture or dislocation. 06/18/2024 patient seen and examined at bedside. No new complaints. No acute events overnight. ALEKS balance -633 2 mL urine output 350 mL. WBC 11.97 hemoglo bin 7.6 platelet count 338,000 06/19 Patient was seen and examined. No acute events overnight. Maintained on Daptomycin and Zosyn. WCx growing Enterococcus faecalis. CBC and BMP significant for WBC 12.3, RBC 2.85, Hg 8.1, Hct 25.9, Na 131, BUN 46m Cr 5.37, glu 146, Ca 8.1. 06/20/2024 was seen and examined. No acute events overnight. WBC 10.9 hemoglobin 7.4 platelet count 316,000 sodium 132 potassium 4.2 chloride 96 BUN 61 creatinine 6.7 glucose 171 calcium 7.8 06/21/2024 patient seen and examined at bedside. No acute events overnight. No new complaints overnight. POC glucose 172 06/22/2024 patient seen and examined at bedside. No acute events overnight. No new complaints overnight. Permanent dialysis catheter placed yesterday afternoon. WBC 9.32 hemoglobin 7.1 platelet count 300,000 sodium 132 potassium 4.5 BUN 15 creatinine 5.9 glucose 185 calcium 7.9. Still waiting on placement. 06/23/2024 patient seen and examined at bedside. Currently on hemodialysis session. No acute events overnight. No new complaints overnight. WBC 8.9 hemoglobin 7.9 platelet count 303, 000 Na 133 K 4.9 bicarb 24.9 BUN 58.2 creatitinine 6.7 glucose 126 calcium 8.5 Gen: In NAD, non-toxic, on room air HEENT: normocephalic, atraumatic, hearing acuity is intant, mucous membranes moist CVS: perfusing all extremities well Respiratory: symmetric chest expansion, no accessory muscle use GI: soft, NTTP, ND : no suprapubic tenderness, no CVA tenderness MSK/Derm: no rashes, cyanosis, chronic discoloration and scaling of bilateral lower extremities, right foot covered with wound VAC today site clean and dry, wound VAC having some output, pedal edema appreciated, trace to 1+ pitting edema up to the mid calf noted on bilateral lower extremities, permcath port on R upper chest with dressing clean and dry no erythema or swelling on surrounding skin Neuro: CN II-XII intact, no motor weakness Psych: cooperative, euthymic mood, judgment and insight is intact Assessment/Plan: #CHAVO on CKD stage IIIb secondary to cardiorenal syndrome, s/p temporary and per manent hemodialysis catheter placement, improving -Baseline creatinine 1.69-2.2 -Monitor UO. On Hamilton catheter -Continue to monitor daily BMP -Nephrology note reviewed, continue dialysis -Tram held. Started on Phoslo and Aranesp. -Permanent catheter placement POD 2 -SW arranging outpatient dialysis # Right foot abscess, status post incision and drainage of right foot, improving, wound VAC in place #Diabetic foot infection #Leukocytosis, resolved right foot covered with wound VAC today site clean and dry, wound VAC having some output Patient being seen at home wound care. -wound care consulted -Right foot x-ray noted to have soft tissue swelling and gas, negative for osteomyelitis, no fracture or dislocation -Wound cultures positive for polymicrobial organisms -Discontinued Zosyn IVPB every 8 hours and daptomycin 700 mg IVPB every 48 hours on 06/20 -Infectious disease following continue with Unasyn IVPB daily -Vascular surgery following status post I&D day 6 today #Acute on chronic hypoxic respiratory failure secondary to CHF exacerbation, improving #Acute on chronic systolic CHF (EF 20 to 25%), NYHA class III, improving #COPD without exacerbation #Hypervolemic hyponatremia, stable -Cardiac monitoring -Supportive oxygen as needed -Fluid restrict to 2 L daily -Daily weights -Strict I's and O's -O2 NC as needed -Ordered DuoNeb 3 ml every 2 hours as needed for shortness of breath or wheezing -Nephrology following. Hemodialysis MWF. -Continue with IV Lasix 60 mg twice daily, monitor electrolytes -ASA 81 resumed -Cardiology consulted. No further intervention recommended. -GDMT: - coreg - losartan held due to CHAVO - not on mineralocorticoid, farxiga due to kidney dysfunction #Anemia of chronic disease superimposed with iron deficiency, stable -Hemoglobin 7.9 today. Will transfuse if hemoglobin goes to less than 7. -Monitor CBC Chronic Conditions: #Diabetes mellitus, controlled -Hold home medications -Insulin NovoLog sliding scale medium dose ACHS -Accu-Cheks ACHS -Continue home NovoLog 10 units subcu ACHS -levemir 60 units at bedtime #Hypertension -Hold amlodipine and losartan for now F: Oral intake. Restrict to 2 L fluid E: None N: Heart healthy diet with fluid restriction to 2 L DVT prophylaxis: Heparin 5000 units SQ every 8 hours GI prophylaxis: Home omeprazole 20 mg p.o. daily I have seen and evaluated the patient today. Discussed with the resident and agree with the residents finding and plan as documented in the resident's note. Changes highlighted in blue font. Objective - Vital Signs Vital signs: Vital Signs Temp 98.9 F 06/23/24 02:00 Pulse 66 06/23/24 02:00 Resp 18 06/23/24 02:00 BP 126/77 06/23/24 02:00 Pulse Ox 94 L 06/23/24 02:00 FiO2 21 06/17/24 08:44 Intake & Output 06/22/24 06/23/24 06/23/24 18:59 06:59 18:59 Intake Total 1056 0 Output Total 625 900 Balance 431 -900 Weight 178 kg 193.865 kg Intake: Oral 1056 0 Output: Urine 625 900 Other: Voiding Method Indwelling Catheter Indwelling Catheter - Labs CBC & Chem 7: 06/23/24 06:04 06/23/24 06:00 Labs: Abnormal Lab Results - Last 24 Hours (Table) 06/22/24 06/22/24 06/22/24 Range/Units 05:28 05:28 12:07 RBC 2.60 L (4.40-5.60) X 10*6/uL Hgb 7.1 L (13.0-17.0) g/dL Hct 24.0 L (39.6-50.0) % MCHC 29.6 L (32.0-37.0) g/dL RDW 15.1 H (11.5-14.5) % Immature Gran # 0.06 H (0.00-0.04) X 10*3/uL Lymphocytes # 0.74 L (0.90-5.00) X 10*3/uL Eosinophils # 0.37 H (0.04-0.35) X 10*3/uL Sodium 132 L (135-145) mmol/L Chloride 94 L (96-109) mmol/L Anion Gap 14.10 H (4.00-12.00) mmol/L BUN 50.1 H (9.0-27.0) mg/dL Creatinine 5.9 H (0.6-1.5) mg/dL Est GFR (CKD-EPI) 11 L (>=60) BUN/Creatinine Ratio 8.49 L (12.00-20.00) Ratio Glucose 185 H (70-110) mg/dL POC Glucose (mg/dL) 215 H (70-110) mg/dL Calcium 7.9 L (8.7-10.3) mg/dL 06/22/24 06/22/24 06/23/24 Range/Units 17:18 19:57 06:21 RBC (4.40-5.60) X 10*6/uL Hgb (13.0-17.0) g/dL Hct (39.6-50.0) % MCHC (32.0-37.0) g/dL RDW (11.5-14.5) % Immature Gran # (0.00-0.04) X 10*3/uL Lymphocytes # (0.90-5.00) X 10*3/uL Eosinophils # (0.04-0.35) X 10*3/uL Sodium (135-145) mmol/L Chloride (96-109) mmol/L Anion Gap (4.00-12.00) mmol/L BUN (9.0-27.0) mg/dL Creatinine (0.6-1.5) mg/dL Est GFR (CKD-EPI) (>=60) BUN/Creatinine Ratio (12.00-20.00) Ratio Glucose (70-110) mg/dL POC Glucose (mg/dL) 138 H 157 H 131 H (70-110) mg/dL Calcium (8.7-10.3) mg/dL Microbiology - Last 24 Hours (Table) 06/17/24 13:30 Anaerobic Culture - Final Foot - Right Corynebacterium striatum group Prevotella disiens
--- NOTE | 2024-06-23 10:52 | IR ---
EXAMINATION TYPE: IR cvc insert central tunneled DATE OF EXAM: 06/22/2024 12:58 PM COMPARISON: Pre Operative Images if available both CT/MRI or plain film CLINICAL INDICATION: Male, 54 years old with history of Permanent Hemodialysis Catheter Placed, 1.5mi n , 0.32 DAP; TECHNIQUE: IR cvc insert central tunneled, multiple fluoroscopic images provided for procedure. Total fluoroscopy time: 1.5 minutes Total submitted images to PACS: [id number] DAP: 0.32 mGym2 Gycm2 uGym2 cGycm2 or equivalent. FINDINGS: IMPRESSION: 1. Report was generated for administrative purposes only. 2. Please see the operative/procedural note for further details. [facility], , 06/23/2024 10:49 AM
[2024-06-23 12:29] LABS: Glucose,Whole Blood 112 mg/dL (70-110)
--- NOTE | 2024-06-23 12:54 | P.PN ---
Subjective Progress Note Date: 06/22/24 Principal diagnosis: Reason for follow-up is right diabetic foot infection Patient is a 54-year-old male with a past medical history significant for COPD diabetes mellitus [place] sleep apnea presenting the hospital initially for evaluation of increasing shortness of breath patient also have a right diabetic foot ulcer being treated by the wound care noticed to have worsening diagnosed with an abscess prompting this consultation patient is status post extensive surgical debridement which was sent down to the fascia and tendon. On today's evaluation that is 06/22/2024,the patient denies any fever or any chills, patient is breathing comfortably on 3 L current oxygen, the patient denies chest pain shortness of breath and no significant cough, patient denies abdominal pain, no nausea vomiting or diarrhea. Patient white count is 9.32 creatinine is 5.9 Objective - Vital Signs Vital signs: Vital Signs Temp 98.1 F 06/22/24 07:54 Pulse 76 06/22/24 12:27 Resp 16 06/22/24 07:54 BP 138/81 06/22/24 07:54 Pulse Ox 96 06/22/24 07:54 FiO2 21 06/17/24 08:44 Intake & Output 06/21/24 06/22/24 06/22/24 18:59 06:59 18:59 Intake Total 1201 477 Output Total 7570 750 Balance -6369 -273 Weight 178 kg Intake: IV 75 Oral 476 477 Hemodialysis 650 Output: Urine 220 750 Hemodialysis 4000 Hemodialysis Net Amount 3350 Other: Voiding Method Indwelling Catheter Indwelling Catheter Indwelling Catheter - Exam GENERAL DESCRIPTION: Middle-age male lying in bed in no distress RESPIRATORY SYSTEM: Unlabored breathing , decreased breath sounds at bases HEART: S1 S2 regular rate and rhythm , ABDOMEN: Soft , no tenderness EXTREMITIES: Right foot wound is currently covered with a wound VAC - Labs CBC & Chem 7: 06/23/24 06:04 06/23/24 06:00 Labs: Abnormal Lab Results - Last 24 Hours (Table) 06/21/24 06/21/24 06/22/24 Range/Units 16:53 19:33 05:28 RBC 2.60 L (4.40-5.60) X 10*6/uL Hgb 7.1 L (13.0-17.0) g/dL Hct 24.0 L (39.6-50.0) % MCHC 29.6 L (32.0-37.0) g/dL RDW 15.1 H (11.5-14.5) % Immature Gran # 0.06 H (0.00-0.04) X 10*3/uL Lymphocytes # 0.74 L (0.90-5.00) X 10*3/uL Eosinophils # 0.37 H (0.04-0.35) X 10*3/uL Sodium (135-145) mmol/L Chloride (96-109) mmol/L Anion Gap (4.00-12.00) mmol/L BUN (9.0-27.0) mg/dL Creatinine (0.6-1.5) mg/dL Est GFR (CKD-EPI) (>=60) BUN/Creatinine Ratio (12.00-20.00) Ratio Glucose (70-110) mg/dL POC Glucose (mg/dL) 111 H 236 H (70-110) mg/dL Calcium (8.7-10.3) mg/dL 06/22/24 06/22/24 06/22/24 Range/Units 05:28 06:14 12:07 RBC (4.40-5.60) X 10*6/uL Hgb (13.0-17.0) g/dL Hct (39.6-50.0) % MCHC (32.0-37.0) g/dL RDW (11.5-14.5) % Immature Gran # (0.00-0.04) X 10*3/uL Lymphocytes # (0.90-5.00) X 10*3/uL Eosinophils # (0.04-0.35) X 10*3/uL Sodium 132 L (135-145) mmol/L Chloride 94 L (96-109) mmol/L Anion Gap 14.10 H (4.00-12.00) mmol/L BUN 50.1 H (9.0-27.0) mg/dL Creatinine 5.9 H (0.6-1.5) mg/dL Est GFR (CKD-EPI) 11 L (>=60) BUN/Creatinine Ratio 8.49 L (12.00-20.00) Ratio Glucose 185 H (70-110) mg/dL POC Glucose (mg/dL) 195 H 215 H (70-110) mg/dL Calcium 7.9 L (8.7-10.3) mg/dL Assessment and Plan (1) Diabetic foot infection Current Visit: Yes Status: Acute Code(s): E11.628 - TYPE 2 DIABETES MELLITUS WITH OTHER SKIN COMPLICATIONS; L08.9 - LOCAL INFECTION OF THE SKIN AND SUBCUTA NEOUS TISSUE, UNSP SNOMED Code(s): 206123947 (2) Foot abscess, right Current Visit: Yes Status: Acute Code(s): L02.611 - CUTANEOUS ABSCESS OF RIGHT FOOT SNOMED Code(s): 84037130201023936 Plan: 1patient with a chronic nonhealing wound on the plantar aspect of the right foot now with evidence of significant foul-smelling drainage and fluctuation concerning for an abscess with the x-ray suggestive of possible gas-forming pathogen we will need to cover for the polymicrobial birdie associated with diabetic foot infection. 2patient with acute on chronic kidney insufficiency and high risk of vancomycin toxicity 3patient is status post surgical debridement of the right foot abscess extending down to the fascia and tendon and deep culture which are currently growing Enterococcus faecalis strep anaerobes 4patient is currently being treated Unasyn to cover for the pathogen grown in the culture will likely need IV antibiotics on discharge, however nephrology recommending antibiotics through the dialysis instead of getting a PICC line Dictation was produced using [employer] dictation software. please excuse any gra mmatical, word or spelling errors. Time with Patient: Less than 30
--- NOTE | 2024-06-23 12:55 | P.PN ---
Subjective Progress Note Date: 06/23/24 Principal diagnosis: Reason for follow-up is right diabetic foot infection Patient is a 54-year-old male with a past medical history significant for COPD diabetes mellitus [place] sleep apnea presenting the hospital initially for evaluation of increasing shortness of breath patient also have a right diabetic foot ulcer being treated by the wound care noticed to have worsening diagnosed with an abscess prompting this consultation patient is status post extensive surgical debridement which was sent down to the fascia and tendon. On today's evaluation that is 06/23/2024,the patient remains to be afebrile, patient is on room air not requiring supplemental oxygen and denies any shortness of breath no chest pain or cough.Patient denies having any nausea or vomiting, no abdominal pain and no diarrhea, currently undergoing dialysis without any problem Patient white count is 8.85 creatinine 6.7 local cultures with Enterococcus faecalis and Streptococcus agalactiae and Prevotella Objective - Vital Signs Vital signs: Vital Signs Temp 36.8 F L 06/23/24 08:10 Pulse 72 06/23/24 08:46 Resp 18 06/23/24 08:10 BP 150/79 06/23/24 08:10 Pulse Ox 21 L 06/23/24 08:41 FiO2 21 06/17/24 08:44 Intake & Output 06/22/24 06/23/24 06/23/24 18:59 06:59 18:59 Intake Total 1056 0 3518 Output Total 028 472 5328 Balance 431 -900 118 Weight 178 kg 193.865 kg Intake: Oral 1056 0 118 Hemodialysis 3400 Output: Urine 625 900 Hemodialysis 400 Hemodialysis Net Amount 3000 Other: Voiding Method Indwelling Catheter Indwelling Catheter Indwelling Catheter - Exam GENERAL DESCRIPTION: Middle-age male lying in bed in no distress RESPIRATORY SYSTEM: Unlabored breathing , decreased breath sounds at bases HEART: S1 S2 regular rate and rhythm , ABDOMEN: Soft , no tenderness EXTREMITIES: Right foot wound is currently covered with a wound VAC - Labs CBC & Chem 7: 06/23/24 06:04 06/23/24 06:00 Labs: Abnormal Lab Results - Last 24 Hours (Table) 06/22/24 06/22/24 06/23/24 Range/Units 17:18 19:57 06:00 RBC (4.40-5.60) X 10*6/uL Hgb (13.0-17.0) g/dL Hct (39.6-50.0) % MCHC (32.0-37.0) g/dL RDW (11.5-14.5) % Immature Gran # (0.00-0.04) X 10*3/uL Lymphocytes # (0.90-5.00) X 10*3/uL Sodium 133 L (135-145) mmol/L Anion Gap 12.10 H (4.00-12.00) mmol/L BUN 58.2 H (9.0-27.0) mg/dL Creatinine 6.7 H (0.6-1.5) mg/dL Est GFR (CKD-EPI) 9 L (>=60) BUN/Creatinine Ratio 8.69 L (12.00-20.00) Ratio Glucose 126 H (70-110) mg/dL POC Glucose (mg/dL) 138 H 157 H (70-110) mg/dL Calcium 8.5 L (8.7-10.3) mg/dL 06/23/24 06/23/24 06/23/24 Range/Units 06:04 06:21 12:27 RBC 2.86 L (4.40-5.60) X 10*6/uL Hgb 7.9 L (13.0-17.0) g/dL Hct 26.5 L (39.6-50.0) % MCHC 29.8 L (32.0-37.0) g/dL RDW 15.2 H (11.5-14.5) % Immature Gran # 0.05 H (0.00-0.04) X 10*3/uL Lymphocytes # 0.73 L (0.90-5.00) X 10*3/uL Sodium (135-145) mmol/L Anion Gap (4.00-12.00) mmol/L BUN (9.0-27.0) mg/dL Creatinine (0.6-1.5) mg/dL Est GFR (CKD-EPI) (>=60) BUN/Creatinine Ratio (12.00-20.00) Ratio Glucose (70-110) mg/dL POC Glucose (mg/dL) 131 H 112 H (70-110) mg/dL Calcium (8.7-10.3) mg/dL Microbiology - Last 24 Hours (Table) 06/17/24 13:30 Gram Stain - Final Foot - Right Tissue Culture - Final Enterococcus faecalis Strep agalactiae - (group b) Helcococcus adarshi 06/17/24 13:30 Anaerobic Culture - Final Foot - Right Corynebacterium striatum group Prevotella disiens Assessment and Plan (1) Diabetic foot infection Current Visit: Yes Status: Acute Code(s): E11.628 - TYPE 2 DIABETES MELLITUS WITH OTHER SKIN COMPLICATIONS; L08.9 - LOCAL INFECTION OF THE SKIN AND SUBCUTANEOUS TISSUE, UNSP SNOMED Code(s): 274950466 (2) Foot abscess, right Current Visit: Yes Status: Acute Code(s): L02.611 - CUTANEOUS ABSCESS OF RIGHT FOOT SNOMED Code(s): 69819615001222775 Plan: 1patient with a chronic nonhealing wound on the plantar aspect of the right foot now with evidence of significant foul-smelling drainage and fluctuation concerning for an abscess with the x-ray suggestive of possible gas-forming pathogen we will need to cover for the polymicrobial birdie associated with diabetic foot infection. 2patient with acute on chronic kidney insufficiency and high risk of vancomycin toxicity 3patient is status post surgical debridement of the right foot abscess extending down to the fascia and tendon and deep culture which are currently growing Enterococcus faecalis strep anaerobes 4patient is currently being treated Unasyn to cover for the pathogen grown in the culture will likely need IV antibiotics on discharge, however nephrology recommending antibiotics through the dialysis instead of getting a PICC line and sending it to be more acute on chronic renal failure and trying to avoid vancomycin on discharge we will consider daptomycin 6 mg/kg at end of his dialysis and oral Flagyl x 4-week on discharge, caseworker to arrange for antibiotic Dictation was produced using [employer] dictation software. please excuse any grammatical, word or spelling errors. Time with Patient: Less than 30
--- NOTE | 2024-06-23 14:26 | P.PN ---
Subjective Patient is seen for follow-up for acute kidney injury currently maintained on hemodialysis. Status post hemodialysis today with UF of 3.0 L No significant complaints today. Blood pressure is on the lower side 24-hour urine output at 1525 mL Maintained on Lasix 60 mg every 12 hours. Objective - Vital Signs Vital signs: Vital Signs Temp 36.8 F L 06/23/24 08:10 Pulse 72 06/23/24 08:46 Resp 18 06/23/24 08:10 BP 150/79 06/23/24 08:10 Pulse Ox 21 L 06/23/24 08:41 FiO2 21 06/17/24 08:44 Intake & Output 06/22/24 06/23/24 06/23/24 18:59 06:59 18:59 Intake Total 1056 0 3518 Output Total 636 303 3433 Balance 431 -900 118 Weight 178 kg 193.865 kg Intake: Oral 1056 0 118 Hemodialysis 3400 Output: Urine 625 900 Hemodialysis 400 Hemodialysis Net Amount 3000 Other: Voiding Method Indwelling Catheter Indwelling Catheter Indwelling Catheter - Exam Patient is sleeping but arousable. No acute distress. Right foot with wound VAC Examination of the heart S1 and S2 Examination of the lungs bilateral breath sounds are heard Abdomen is soft morbidly obese Bilateral lower extremities show chronic skin changes, right foot wound with wound VAC - Labs CBC & Chem 7: 06/23/24 06:04 06/23/24 06:00 Labs: Abnormal Lab Results - Last 24 Hours (Table) 06/22/24 06/22/24 06/23/24 Range/Units 17:18 19:57 06:00 RBC (4.40-5.60) X 10*6/uL Hgb (13.0-17.0) g/dL Hct (39.6-50.0) % MCHC (32.0-37.0) g/dL RDW (11.5-14.5) % Immature Gran # (0.00-0.04) X 10*3/uL Lymphocytes # (0.90-5.00) X 10*3/uL Sodium 133 L (135-145) mmol/L Anion Gap 12.10 H (4.00-12.00) mmol/L BUN 58.2 H (9.0-27.0) mg/dL Creatinine 6.7 H (0.6-1.5) mg/dL Est GFR (CKD-EPI) 9 L (>=60) BUN/Creatinine Ratio 8.69 L (12.00-20.00) Ratio Glucose 126 H (70-110) mg/dL POC Glucose (mg/dL) 138 H 157 H (70-110) mg/dL Calcium 8.5 L (8.7-10.3) mg/dL 06/23/24 06/23/24 06/23/24 Range/Units 06:04 06:21 12:27 RBC 2.86 L (4.40-5.60) X 10*6/uL Hgb 7.9 L (13.0-17.0) g/dL Hct 26.5 L (39.6-50.0) % MCHC 29.8 L (32.0-37.0) g/dL RDW 15.2 H (11.5-14.5) % Immature Gran # 0.05 H (0.00-0.04) X 10*3/uL Lymphocytes # 0.73 L (0.90-5.00) X 10*3/uL Sodium (135-145) mmol/L Anion Gap (4.00-12.00) mmol/L BUN (9.0-27.0) mg/dL Creatinine (0.6-1.5) mg/dL Est GFR (CKD-EPI) (>=60) BUN/Creatinine Ratio (12.00-20.00) Ratio Glucose (70-110) mg/dL POC Glucose (mg/dL) 131 H 112 H (70-110) mg/dL Calcium (8.7-10.3) mg/dL Microbiology - Last 24 Hours (Table) 06/17/24 13:30 Gram Stain - Final Foot - Right Tissue Culture - Final Enterococcus faecalis Strep agalactiae - (group b) Helcococcus elinormarialuisai 06/17/24 13:30 Anaerobic Culture - Final Foot - Right Corynebacterium striatum group Prevotella disiens Assessment and Plan Assessment: 1. Acute kidney injury secondary to ATN secondary to cardiorenal syndrome as well as contrast associated acute kidney injury. Patient received IV contrast on June 07, 2024. Creatinine 1.8 on admission and is up to 5.69 dated June 13, 2024. Kidney ultrasound showed no evidence of hydronephrosis. Started on hemodialysis June 13, 2024 via temporary right IJ catheter. Urine output has increased to 1.5 L for last 24 hours 2. Chronic kidney disease stage IIIb with baseline creatinine 1.8-2 secondary to diabetic kidney disease. 3. Acute on chronic systolic CHF ejection fraction of 30 to 35%. 4. Diabetes mellitus. 5. Anemia of chronic kidney disease. Iron deficiency noted. Status post IV iron. On Aranesp. 6. Hypervolemic hyponatremia. Stable. 7. Volume overload. Improving with diuresis and ultrafiltration. 8. Chronic kidney disease mineral bone disease. Phosphorus level 8.0 dated June 14, 2024. On PhosLo. Plan: Continue with hemodialysis. May continue with IV Lasix Accurate I's and O's. continue to monitor for recovery of renal function. Urine output has picked up significantly.
[2024-06-23 17:29] LABS: Glucose,Whole Blood 168 mg/dL (70-110)
[2024-06-23 19:38] LABS: Glucose,Whole Blood 170 mg/dL (70-110)
[2024-06-24 06:00] LABS: Glucose,Whole Blood 149 mg/dL (70-110)
[2024-06-24 08:35] LABS: Basophils # (A) 0.03 X 10*3/uL (0.00-0.10); Basophils % (A) 0.4 %; Eosinophils # (A) 0.43 X 10*3/uL (0.04-0.35); Eosinophils % (A) 5.8 %; HCT 24.1 % (39.6-50.0); Lymphocytes # (A) 0.99 X 10*3/uL (0.90-5.00); Lymphocytes % (A) 13.3 %; MCH 27.3 pg (27.0-32.0); MCV 94.1 FL (80.0-97.0); Mean Platelet Volume 10.2 FL (9.5-12.2); Monocytes % (A) 9.4 %; NRBC Per 100 WBC 0 X 10*3/uL (0.00-0.01); Neutrophils # (A) 5.23 X 10*3/uL (1.80-7.70); Neutrophils % (A) 70.4 %; Platelet Count 292 X 10*3/uL (140-440); RBC 2.56 X 10*6/uL (4.40-5.60); RDW 15.4 % (11.5-14.5); WBC 7.43 X 10*3/uL (4.50-10.00)
[2024-06-24 08:41] LABS: BUN/Creat Ratio 8.75 Ratio (12.00-20.00); Blood Urea Nitrogen 45.5 mg/dL (9.0-27.0); Chloride 92 mmol/L (96-109); Glucose 138 mg/dL (70-110); Potassium 4.6 mmol/L (3.5-5.5); Sodium 133 mmol/L (135-145)
[2024-06-24 08:42] LABS: Calcium 7.8 mg/dL (8.7-10.3); Carbon Dioxide 29.2 mmol/L (21.6-31.8)
[2024-06-24 12:28] LABS: Glucose,Whole Blood 200 mg/dL (70-110)
--- NOTE | 2024-06-24 13:09 | P.PN ---
Subjective Progress Note Date: 06/24/24 54-year-old male with a PMH of systolic CHF (EF 20 to 25%), asthma, COPD, diabetes mellitus, and CKD 3B presents with complaints of shortness of breath. Reports 3 weeks ago he started feeling shortness of breath, and states that this time he went to an urgent care where he was prescribed steroids and azithromycin which he reports he finished antibiotic course and steroids. States after completing this he felt slightly better but still had shortness of breath. Notes during this time he has had to sleep sitting on the edge of the bed, admits to orthopnea. States that shortness of breath gets worse on exertion. Admits to seeing increased swelling in his lower extremities compared to before this all started. Of note during recent admission he was treated for foot ulcers, which she reports he follows consistently with wound care outpatient. Admits to a mild cough but denies any sputum production. Denies fever, chills, headache, chest pain, palpitations, nausea, vomiting, diarrhea, constipation. Labs: WBC 12.9, hemoglobin 12.3, D-dimer 1.34, sodium 129, BUN 28, creatinine 1.8, glucose 254, troponin 0.01, BNP 12,200, and viral respiratory panel all negative. Imaging: - EKG done in the ER showed heart rate of 94 bpm, sinus rhythm, possible left atrial enlargement, and QTc 406. - ER CXR: No acute cardiopulmonary disease/process. - ER CTA chest: No evidence of PE, bronchial wall thickening, left upper lung pulmonary nodule measuring 8 mm, hepatic steatosis - CXR from 06/10 independently interpreted shows improved congestion -Echo left ventricular ejection fraction estimated 30 to 35% with severely increased diastolic volume. Severe global hypokinesis of the left ventricle. 06/08/2024 patient seen and examined at bedside. Patient noted that his shortness of breath is improved and only occurs on exertion such as walking. He denies chest pain, calf tenderness, cough, subjective fevers, chills, nausea vomiting, or diarrhea. WBC 9.9 hemoglobin 10.3 platelet count 2 25,000 sodium 134 potassium 3.8 chloride 101 bicarb 30 BUN 30 creatinine 2.14 glucose 131 calcium 7.9 magnesium 2 AST 46 ALT 13 ALP 75 troponin peaked at 0.08 albumin 2.1. Echo left ventricular ejection fraction estimated 30 to 35% with severely increased diastolic volume. Severe global hypokinesis of the left ventricle. 06/09/2024 patient seen and examined at bedside. Patient noted to have improved shortness of breath better than yesterday. No acute events overnight. WBC 15.3 hemoglobin 10.3 platelet count 204,000 sodium 132 potassium 4.2 chloride 100 bicarb 26 BUN 37 creatinine 2.64 glucose 178 calcium 8 06/10/2024 patient seen and examined at bedside. Patient reported that they still experience shortness of breath on exertion. He also reported that they feel they have a lot of wheezing today. No acute events overnight. WBC 14.6 hemoglobin 9.1 MCV 9.8 platelet count 189,000 sodium 129 potassium 4.3 chloride 100 BUN 44 creatinine 3.01 glucose 196 calcium 7.7. CXR from 06/10 independently interpreted shows improved congestion. Ultrasound of the bladder shows no obstruction. 06/11/2024 patient seen and examined at bedside. Patient reported that he still experiences some shortness of breath. No acute events overnight. WBC 17.9 hemoglobin 9.1 platelet count 09/01/1999 sodium 132 potassium 4.1 chloride 100 BUN 49 creatinine 3.42 glucose 116 calcium 8 06/12/2024 patient seen and examined at bedside. No acute events overnight. No new complaints. Cr significantly worsening. Nephrology on board. Tanya is < 20. 06/13/2024 patient seen and examined at bedside. No acute events overnight. Patient has no new complaints. WBC 11.5 hemoglobin 8.4 sodium 130 BUN 67 creatinine 5.69 glucose 174 calcium 7.7 magnesium 2.4 06/14/2024 patient seen and examined at bedside. No acute events overnight. Patient had no new complaints. WBC 10.8 hemoglobin 8.3 platelet count 268,000 sodium 129 potassium 4.5 chloride 96 BUN 16 creatinine 5.5 glucose 188 calcium 7.8 phosphorus 8 magnesium 2.3 06/15/2024 patient seen and examined at bedside. No acute events overnight. Patient reported complaining of discomfort with the Cook catheter. WBC 11.8 hemoglobin 8.2 platelet count 272,000 sodium 130 potassium 4.3 chloride 95 BUN 54 creatinine 5.4 glucose 201 calcium 7.8. Fuid balance -2 990 mL hemodialysis 1.5 L taken UO 775mL 06/16/2024 patient seen and examined at bedside. Patient reported to have some confusion overnight. Also that he slept most of the day. No new complaints. WBC 11.5 hemoglobin 8.5 sodium 131 potassium 4.4 bicarb 35 BUN 42 creatinine 4.79 glucose 111 calcium 8.1 ALEKS balance -3848 mL urine output 775 mL. 06/17/2024 patient seen and examined at bedside. Patient has no new complaints. Patient reported to have some confusion in the middle of the night. ALEKS -3 730 mL urine output 750 mL. Still on a Cook. Urinalysis so moderate leukocyte esterase, +2 glucose, +2 protein negative nitrates occasional bacteria. WBC 12.1 hemoglobin 8.1 platelet count 325 sodium 131 potassium 4.6 chloride 96 bicarb 28 BUN 58 creatinine 6.77 glucose 108 calcium 8.3 magnesium 2. Right foot x-ray noted to have soft tissue swelling and gas, negative for osteomyelitis, no fracture or dislocation. 06/18/2024 patient seen and examined at bedside. No new complaints. No acute events overnight. ALEKS balance -633 2 mL urine output 350 mL. WBC 11.97 hemoglo bin 7.6 platelet count 338,000 06/19 Patient was seen and examined. No acute events overnight. Maintained on Daptomycin and Zosyn. WCx growing Enterococcus faecalis. CBC and BMP significant for WBC 12.3, RBC 2.85, Hg 8.1, Hct 25.9, Na 131, BUN 46m Cr 5.37, glu 146, Ca 8.1. 06/20/2024 was seen and examined. No acute events overnight. WBC 10.9 hemoglobin 7.4 platelet count 316,000 sodium 132 potassium 4.2 chloride 96 BUN 61 creatinine 6.7 glucose 171 calcium 7.8 06/21/2024 patient seen and examined at bedside. No acute events overnight. No new complaints overnight. POC glucose 172 06/22/2024 patient seen and examined at bedside. No acute events overnight. No new complaints overnight. Permanent dialysis catheter placed yesterday afternoon. WBC 9.32 hemoglobin 7.1 platelet count 300,000 sodium 132 potassium 4.5 BUN 15 creatinine 5.9 glucose 185 calcium 7.9. Still waiting on placement. 06/23/2024 patient seen and examined at bedside. Currently on hemodialysis session. No acute events overnight. No new complaints overnight. WBC 8.9 hemoglobin 7.9 platelet count 303, 000 Na 133 K 4.9 bicarb 24.9 BUN 58.2 creatitinine 6.7 glucose 126 calcium 8.5 06/24/2024 patient seen and examined at bedside. No acute events overnight. No new complaints overnight. WBC 7.43 hemoglobin 7 platelet count 292,000 sodium 133 potassium 4.6 BUN 45.5 creatinine 5.2 glucose 138 calcium 7.8 Gen: In NAD, non-toxic, on room air HEENT: normocephalic, atraumatic, hearing acuity is intant, mucous membranes moist CVS: perfusing all extremities well Respiratory: symmetric chest expansion, no accessory muscle use, bibasilar inspiratory and expiratory wheeze GI: soft, NTTP, ND : no suprapubic tenderness, no CVA tenderness MSK/Derm: no rashes, cyanosis, chronic discoloration and scaling of bilateral lower extremities, right foot covered with wound VAC today site clean and dry, wound VAC having some output, pedal edema appreciated, trace to 1+ pitting edema up to the mid calf noted on bilateral lower extremities, permcath port on R upper chest with dressing clean and dry no erythema or swelling on surrounding skin Neuro: CN II-XII intact, no motor weakness Psych: cooperative, euthymic mood, judgment and insight is intact Assessment/Plan: #CHAVO on CKD stage IIIb secondary to cardiorenal syndrome, s/p temporary and permanent hemodialysis catheter placement, improving -Baseline creatinine 1.69-2.2 -Discontinue cook catheter. External cath if needed -Continue to monitor daily BMP -Nephrology note reviewed, continue dialysis -Farxiga and Cozaar held. Started on Phoslo and Aranesp. -Permanent catheter placement POD 3 -SW arranging outpatient dialysis # Right foot abscess, status post incision and drainage of right foot, improving, wound VAC in place #Diabetic foot infection #Leukocytosis, resolved right foot covered with wound VAC today site clean and dry, wound VAC having some output Patient being seen at home wound care. -wound care consulted -Right foot x-ray noted to have soft tissue swelling and gas, negative for osteomyelitis, no fracture or dislocation -Wound cultures positive for polymicrobial organisms -Discontinued Zosyn IVPB every 8 hours and daptomycin 700 mg IVPB every 48 hours on 06/20 -Infectious disease following continue with Unasyn IVPB daily -Vascular surgery following status post I&D day 7 today #Acute on chronic hypoxic respiratory failure secondary to CHF exacerbation, improving #Acute on chronic systolic CHF (EF 20 to 25%), NYHA class III, improving #COPD without exacerbation #Hypervolemic hyponatremia, stable -Cardiac monitoring -Supportive oxygen as needed -Fluid restrict to 2 L daily -Daily weights -Strict I's and O's -O2 NC as needed -Ordered DuoNeb 3 ml every 2 hours as needed for shortness of breath or wheezing -Nephrology following. Hemodialysis MWF. -Continue with IV Lasix 60 mg twice daily, monitor electrolytes -ASA 81 resumed -Cardiology consulted. No further intervention recommended. -GDMT: - coreg - losartan held due to CHAVO - not on mineralocorticoid, farxiga due to kidney dysfunction #Anemia of chronic disease superimposed with iron deficiency, stable -Hemoglobin 7 today. Will transfuse if hemoglobin goes to less than 7. -Monitor CBC Chronic Conditions: #Diabetes mellitus, controlled -Hold home medications -Insulin NovoLog sliding scale medium dose ACHS -Accu-Cheks ACHS -Continue home NovoLog 10 units subcu ACHS -levemir 60 units at bedtime #Hypertension -Hold amlodipine and losartan for now F: Oral intake. Restrict to 2 L fluid E: None N: Heart healthy diet with fluid restriction to 2 L DVT prophylaxis: Heparin 5000 units SQ every 8 hours GI prophylaxis: Home omeprazole 20 mg p.o. daily I have seen and evaluated the patient today. Discussed with the resident and agree with the residents finding and plan as documented in the resident's note. Changes highlighted in blue font. Objective - Vital Signs Vital signs: Vital Signs Temp 98.2 F 06/24/24 07:30 Pulse 59 L 06/24/24 07:30 Resp 16 06/24/24 07:30 BP 142/88 06/24/24 07:30 Pulse Ox 93 L 06/24/24 07:30 FiO2 21 06/17/24 08:44 Intake & Output 06/23/24 06/24/24 06/24/24 18:59 06:59 18:59 Intake Total 3636 240 Output Total 3975 600 Balance -339 -360 Weight 194.2 kg Intake: Oral 236 240 Hemodialysis 3400 Output: Urine 575 600 Hemodialysis 400 Hemodialysis Net Amount 3000 Other: Voiding Method Indwelling Catheter Indwelling Catheter - Labs CBC & Chem 7: 06/24/24 05:39 06/24/24 05:39 Labs: Abnormal Lab Results - Last 24 Hours (Table) 06/23/24 06/23/24 06/23/24 Range/Units 06:00 06:04 12:27 RBC 2.86 L (4.40-5.60) X 10*6/uL Hgb 7.9 L (13.0-17.0) g/dL Hct 26.5 L (39.6-50.0) % MCHC 29.8 L (32.0-37.0) g/dL RDW 15.2 H (11.5-14.5) % Immature Gran # 0.05 H (0.00-0.04) X 10*3/uL Lymphocytes # 0.73 L (0.90-5.00) X 10*3/uL Sodium 133 L (135-145) mmol/L Anion Gap 12.10 H (4.00-12.00) mmol/L BUN 58.2 H (9.0-27.0) mg/dL Creatinine 6.7 H (0.6-1.5) mg/dL Est GFR (CKD-EPI) 9 L (>=60) BUN/Creatinine Ratio 8.69 L (12.00-20.00) Ratio Glucose 126 H (70-110) mg/dL POC Glucose (mg/dL) 112 H (70-110) mg/dL Calcium 8.5 L (8.7-10.3) mg/dL 06/23/24 06/23/24 06/24/24 Range/Units 17:28 19:37 05:58 RBC (4.40-5.60) X 10*6/uL Hgb (13.0-17.0) g/dL Hct (39.6-50.0) % MCHC (32.0-37.0) g/dL RDW (11.5-14.5) % Immature Gran # (0.00-0.04) X 10*3/uL Lymphocytes # (0.90-5.00) X 10*3/uL Sodium (135-145) mmol/L Anion Gap (4.00-12.00) mmol/L BUN (9.0-27.0) mg/dL Creatinine (0.6-1.5) mg/dL Est GFR (CKD-EPI) (>=60) BUN/Creatinine Ratio (12.00-20.00) Ratio Glucose (70-110) mg/dL POC Glucose (mg/dL) 168 H 170 H 149 H (70-110) mg/dL Calcium (8.7-10.3) mg/dL Microbiology - Last 24 Hours (Table) 06/17/24 13:30 Gram Stain - Final Foot - Right Tissue Culture - Final Enterococcus faecalis Strep agalactiae - (group b) Jerrod fernandes
--- NOTE | 2024-06-24 15:00 | P.PN ---
Progress Note - Text 54-year gentleman history of chronic renal failure on dialysis through the right IJ catheter. Patient had a necrotic wound on the plantar aspect the foot had extensive debridement. Using VAC therapy and also patient is under care of infectious disease culture grows a Enterococcus faecalis and strep continue with local wound care and IV antibiotic per infectious disease
--- NOTE | 2024-06-24 15:50 | P.PN ---
Subjective Progress Note Date: 06/24/24 Principal diagnosis: Reason for follow-up is right diabetic foot infection Patient is a 54-year-old male with a past medical history significant for COPD diabetes mellitus CT sleep apnea presenting the hospital initially for evaluation of increasing shortness of breath patient also have a right diabetic foot ulcer being treated by the wound care noticed to have worsening diagnosed with an abscess prompting this consultation patient is status post extensive surgical debridement which was sent down to the fascia and tendon. On today's evaluation that is 06/24/2024, the patient continues to be afebrile, the patient is on room air and breathing comfortably, the Pt denies having any chest pain or cough, the patient denies having any abdominal pain no vomiting or any diarrhea has been reported patient denies any worsening pain to the right foot. Patient white count 7.43, creatinine is 5.2 Objective - Vital Signs Vital signs: Vital Signs Temp 98.2 F 06/24/24 07:30 Pulse 66 06/24/24 09:38 Resp 18 06/24/24 09:38 BP 142/88 06/24/24 07:30 Pulse Ox 96 06/24/24 09:27 FiO2 21 06/17/24 08:44 Intake & Output 06/23/24 06/24/24 06/24/24 18:59 06:59 18:59 Intake Total 3636 240 449 Output Total 3975 600 0 Balance -339 -360 449 Weight 194.2 kg Intake: Oral 236 240 449 Hemodialysis 3400 Output: Urine 575 600 Stool 0 Hemodialysis 400 Hemodialysis Net Amount 3000 Other: Voiding Method Indwelling Catheter Indwelling Catheter Indwelling Catheter - Exam GENERAL DESCRIPTION: Middle-age male lying in bed in no distress RESPIRATORY SYSTEM: Unlabored breathing , decreased breath sounds at bases HEART: S1 S2 regular rate and rhythm , ABDOMEN: Soft , no tenderness EXTREMITIES: Right foot wound is currently covered with a wound VAC - Labs CBC & Chem 7: 06/24/24 05:39 06/24/24 05:39 Labs: Abnormal Lab Results - Last 24 Hours (Table) 06/23/24 06/23/24 06/24/24 Range/Units 17:28 19:37 05:39 RBC 2.56 L (4.40-5.60) X 10*6/uL Hgb 7.0 L (13.0-17.0) g/dL Hct 24.1 L (39.6-50.0) % MCHC 29.0 L (32.0-37.0) g/dL RDW 15.4 H (11.5-14.5) % Immature Gran # 0.05 H (0.00-0.04) X 10*3/uL Eosinophils # 0.43 H (0.04-0.35) X 10*3/uL Sodium (135-145) mmol/L Chloride (96-109) mmol/L BUN (9.0-27.0) mg/dL Creatinine (0.6-1.5) mg/dL Est GFR (CKD-EPI) (>=60) BUN/Creatinine Ratio (12.00-20.00) Ratio Glucose (70-110) mg/dL POC Glucose (mg/dL) 168 H 170 H (70-110) mg/dL Calcium (8.7-10.3) mg/dL 06/24/24 06/24/24 06/24/24 Range/Units 05:39 05:58 12:26 RBC (4.40-5.60) X 10*6/uL Hgb (13.0-17.0) g/dL Hct (39.6-50.0) % MCHC (32.0-37.0) g/dL RDW (11.5-14.5) % Immature Gran # (0.00-0.04) X 10*3/uL Eosinophils # (0.04-0.35) X 10*3/uL Sodium 133 L (135-145) mmol/L Chloride 92 L (96-109) mmol/L BUN 45.5 H (9.0-27.0) mg/dL Creatinine 5.2 H (0.6-1.5) mg/dL Est GFR (CKD-EPI) 12 L (>=60) BUN/Creatinine Ratio 8.75 L (12.00-20.00) Ratio Glucose 138 H (70-110) mg/dL POC Glucose (mg/dL) 149 H 200 H (70-110) mg/dL Calcium 7.8 L (8.7-10.3) mg/dL Microbiology - Last 24 Hours (Table) 06/17/24 13:30 Gram Stain - Final Foot - Right Tissue Culture - Final Enterococcus faecalis Strep agalactiae - (group b) Helcococcus adarshi Assessment and Plan (1) Diabetic foot infection Current Visit: Yes Status: Acute Code(s): E11.628 - TYPE 2 DIABETES MELLITUS WITH OTHER SKIN COMPLICATIONS; L08.9 - LOCAL INFECTION OF THE SKIN AND VITALE BCUTANEOUS TISSUE, UNSP SNOMED Code(s): 613156228 (2) Foot abscess, right Current Visit: Yes Status: Acute Code(s): L02.611 - CUTANEOUS ABSCESS OF RIGHT FOOT SNOMED Code(s): 20236117326652145 Plan: 1patient with a chronic nonhealing wound on the plantar aspect of the right foot now with evidence of significant foul-smelling drainage and fluctuation concerning for an abscess with the x-ray suggestive of possible gas-forming pathogen we will need to cover for the polymicrobial birdie associated with diabetic foot infection. 2patient with acute on chronic kidney insufficiency and high risk of vancomycin toxicity 3patient is status post surgical debridement of the right foot abscess extending down to the fascia and tendon and deep culture which are currently growing Enterococcus faecalis strep anaerobes 4patient is currently being treated Unasyn to cover for the pathogen grown in the culture will likely need IV antibiotics on discharge, however nephrology recommending antibiotics through the dialysis instead of getting a PICC line and sending it to be more acute on chronic renal failure and trying to avoid vancomycin on discharge we will consider daptomycin 6 mg/kg at end of his dialysis and oral Flagyl x 4-week on discharge, 5as per discussion with the vascular surgeon will change the wound VAC wound is healing and granulating and no need for further debridement Dictation was produced using [employer] dictation software. please excuse any grammatical, word or spelling errors. Time with Patient: Less than 30
[2024-06-24 17:28] LABS: Glucose,Whole Blood 177 mg/dL (70-110)
--- NOTE | 2024-06-24 19:44 | P.PN ---
Subjective Patient is seen for follow-up for acute kidney injury currently maintained on hemodialysis. Urine output has increased Blood pressure is on the lower side 24-hour urine output at 1175 mL Maintained on Lasix 60 mg every 12 hours. Objective - Vital Signs Vital signs: Vital Signs Temp 98.2 F 06/24/24 19:18 Pulse 76 06/24/24 19:18 Resp 18 06/24/24 19:18 BP 144/82 06/24/24 19:18 Pulse Ox 93 L 06/24/24 19:18 FiO2 21 06/17/24 08:44 Intake & Output 06/24/24 06/24/24 06/25/24 06:59 18:59 06:59 Intake Total 240 788 Output Total 600 1075 Balance -360 -287 Weight 194.2 kg Intake: Oral 240 788 Output: Urine 600 1075 Stool 0 Other: Voiding Method Indwelling Catheter Indwelling Catheter # Bowel Movements 1 - Exam Patient is sleeping but arousable. No acute distress. Right foot with wound VAC Examination of the heart S1 and S2 Examination of the lungs bilateral breath sounds are heard Abdomen is soft morbidly obese Bilateral lower extremities show chronic skin changes, right foot wound with wound VAC - Labs CBC & Chem 7: 06/24/24 05:39 06/24/24 05:39 Labs: Abnormal Lab Results - Last 24 Hours (Table) 06/24/24 06/24/24 06/24/24 Range/Units 05:39 05:39 05:58 RBC 2.56 L (4.40-5.60) X 10*6/uL Hgb 7.0 L (13.0-17.0) g/dL Hct 24.1 L (39.6-50.0) % MCHC 29.0 L (32.0-37.0) g/dL RDW 15.4 H (11.5-14.5) % Immature Gran # 0.05 H (0.00-0.04) X 10*3/uL Eosinophils # 0.43 H (0.04-0.35) X 10*3/uL Sodium 133 L (135-145) mmol/L Chloride 92 L (96-109) mmol/L BUN 45.5 H (9.0-27.0) mg/dL Creatinine 5.2 H (0.6-1.5) mg/dL Est GFR (CKD-EPI) L (>=60) BUN/Creatinine Ratio 8.75 L (12.00-20.00) Ratio Glucose 138 H (70-110) mg/dL POC Glucose (mg/dL) 149 H (70-110) mg/dL Calcium 7.8 L (8.7-10.3) mg/dL 06/24/24 06/24/24 Range/Units 12:26 17:27 RBC (4.40-5.60) X 10*6/uL Hgb (13.0-17.0) g/dL Hct (39.6-50.0) % MCHC (32.0-37.0) g/dL RDW (11.5-14.5) % Immature Gran # (0.00-0.04) X 10*3/uL Eosinophils # (0.04-0.35) X 10*3/uL Sodium (135-145) mmol/L Chloride (96-109) mmol/L BUN (9.0-27.0) mg/dL Creatinine (0.6-1.5) mg/dL Est GFR (CKD-EPI) (>=60) BUN/Creatinine Ratio (12.00-20.00) Ratio Glucose (70-110) mg/dL POC Glucose (mg/dL) 200 H 177 H (70-110) mg/dL Calcium (8.7-10.3) mg/dL Assessment and Plan Assessment: 1. Acute kidney injury secondary to ATN secondary to cardiorenal syndrome as well as contrast associated acute kidney injury. Patient received IV contrast on June 07, 2024. Creatinine 1.8 on admission and is up to 5.69 dated June 13, 2024. Kidney ultrasound showed no evidence of hydronephrosis. S tarted on hemodialysis June 13, 2024 via temporary right IJ catheter. Urine output has increased to 1.5 L for 24 hours 2. Chronic kidney disease stage IIIb with baseline creatinine 1.8-2 secondary to diabetic kidney disease. 3. Acute on chronic systolic CHF ejection fraction of 30 to 35%. 4. Diabetes mellitus. 5. Anemia of chronic kidney disease. Iron deficiency noted. Status post IV iron. On Aranesp. 6. Hypervolemic hyponatremia. Stable. 7. Volume overload. Improving with diuresis and ultrafiltration. 8. Chronic kidney disease mineral bone disease. Phosphorus level 8.0 dated June 14, 2024. On PhosLo. Plan: Continue with hemodialysis. May continue with IV Lasix Accurate I's and O's. continue to monitor for recovery of renal function. Urine output has picked up significantly.5
[2024-06-24 20:27] LABS: Glucose,Whole Blood 224 mg/dL (70-110)
[2024-06-25 06:08] LABS: Glucose,Whole Blood 105 mg/dL (70-110)
[2024-06-25 09:30] LABS: BUN/Creat Ratio 9.43 Ratio (12.00-20.00); Blood Urea Nitrogen 59.4 mg/dL (9.0-27.0); Calcium 8.2 mg/dL (8.7-10.3); Carbon Dioxide 29.3 mmol/L (21.6-31.8); Chloride 93 mmol/L (96-109); Glucose 97 mg/dL (70-110); Potassium 4.6 mmol/L (3.5-5.5); Sodium 135 mmol/L (135-145)
--- NOTE | 2024-06-25 10:43 | P.PN ---
Subjective Progress Note Date: 06/25/24 54-year-old male with a PMH of systolic CHF (EF 20 to 25%), asthma, COPD, diabetes mellitus, and CKD 3B presents with complaints of shortness of breath. Reports 3 weeks ago he started feeling shortness of breath, and states that this time he went to an urgent care where he was prescribed steroids and azithromycin which he reports he finished antibiotic course and steroids. States after completing this he felt slightly better but still had shortness of breath. Notes during this time he has had to sleep sitting on the edge of the bed, admits to orthopnea. States that shortness of breath gets worse on exertion. Admits to seeing increased swelling in his lower extremities compared to before this all started. Of note during recent admission he was treated for foot ulcers, which she reports he follows consistently with wound care outpatient. Admits to a mild cough but denies any sputum production. Denies fever, chills, headache, chest pain, palpitations, nausea, vomiting, diarrhea, constipation. Labs: WBC 12.9, hemoglobin 12.3, D-dimer 1.34, sodium 129, BUN 28, creatinine 1.8, glucose 254, troponin 0.01, BNP 12,200, and viral respiratory panel all negative. Imaging: - EKG done in the ER showed heart rate of 94 bpm, sinus rhythm, possible left atrial enlargement, and QTc 406. - ER CXR: No acute cardiopulmonary disease/process. - ER CTA chest: No evidence of PE, bronchial wall thickening, left upper lung pulmonary nodule measuring 8 mm, hepatic steatosis - CXR from 06/10 independently interpreted shows improved congestion -Echo left ventricular ejection fraction estimated 30 to 35% with severely increased diastolic volume. Severe global hypokinesis of the left ventricle. 06/08/2024 patient seen and examined at bedside. Patient noted that his shortness of breath is improved and only occurs on exertion such as walking. He denies chest pain, calf tenderness, cough, subjective fevers, chills, nausea vomiting, or diarrhea. WBC 9.9 hemoglobin 10.3 platelet count 2 25,000 sodium 134 potassium 3.8 chloride 101 bicarb 30 BUN 30 creatinine 2.14 glucose 131 calcium 7.9 magnesium 2 AST 46 ALT 13 ALP 75 troponin peaked at 0.08 albumin 2.1. Echo left ventricular ejection fraction estimated 30 to 35% with severely increased diastolic volume. Severe global hypokinesis of the left ventricle. 06/09/2024 patient seen and examined at bedside. Patient noted to have improved shortness of breath better than yesterday. No acute events overnight. WBC 15.3 hemoglobin 10.3 platelet count 204,000 sodium 132 potassium 4.2 chloride 100 bicarb 26 BUN 37 creatinine 2.64 glucose 178 calcium 8 06/10/2024 patient seen and examined at bedside. Patient reported that they still experience shortness of breath on exertion. He also reported that they feel they have a lot of wheezing today. No acute events overnight. WBC 14.6 hemoglobin 9.1 MCV 9.8 platelet count 189,000 sodium 129 potassium 4.3 chloride 100 BUN 44 creatinine 3.01 glucose 196 calcium 7.7. CXR from 06/10 independently interpreted shows improved congestion. Ultrasound of the bladder shows no obstruction. 06/11/2024 patient seen and examined at bedside. Patient reported that he still experiences some shortness of breath. No acute events overnight. WBC 17.9 hemoglobin 9.1 platelet count 09/01/1999 sodium 132 potassium 4.1 chloride 100 BUN 49 creatinine 3.42 glucose 116 calcium 8 06/12/2024 patient seen and examined at bedside. No acute events overnight. No new complaints. Cr significantly worsening. Nephrology on board. Tanya is < 20. 06/13/2024 patient seen and examined at bedside. No acute events overnight. Patient has no new complaints. WBC 11.5 hemoglobin 8.4 sodium 130 BUN 67 creatinine 5.69 glucose 174 calcium 7.7 magnesium 2.4 06/14/2024 patient seen and examined at bedside. No acute events overnight. Patient had no new complaints. WBC 10.8 hemoglobin 8.3 platelet count 268,000 sodium 129 potassium 4.5 chloride 96 BUN 16 creatinine 5.5 glucose 188 calcium 7.8 phosphorus 8 magnesium 2.3 06/15/2024 patient seen and examined at bedside. No acute events overnight. Patient reported complaining of discomfort with the Hamilton catheter. WBC 11.8 hemoglobin 8.2 platelet count 272,000 sodium 130 potassium 4.3 chloride 95 BUN 54 creatinine 5.4 glucose 201 calcium 7.8. Fuid balance -2 990 mL hemodialysis 1.5 L taken UO 775mL 06/16/2024 patient seen and examined at bedside. Patient reported to have some confusion overnight. Also that he slept most of the day. No new complaints. WBC 11.5 hemoglobin 8.5 sodium 131 potassium 4.4 bicarb 35 BUN 42 creatinine 4.79 glucose 111 calcium 8.1 ALEKS balance -3848 mL urine output 775 mL. 06/17/2024 patient seen and examined at bedside. Patient has no new complaints. Patient reported to have some confusion in the middle of the night. ALEKS -3 730 mL urine output 750 mL. Still on a Hamilton. Urinalysis so moderate leukocyte esterase, +2 glucose, +2 protein negative nitrates occasional bacteria. WBC 12.1 hemoglobin 8.1 platelet count 325 sodium 131 potassium 4.6 chloride 96 bicarb 28 BUN 58 creatinine 6.77 glucose 108 calcium 8.3 magnesium 2. Right foot x-ray noted to have soft tissue swelling and gas, negative for osteomyelitis, no fracture or dislocation. 06/18/2024 patient seen and examined at bedside. No new complaints. No acute events overnight. ALEKS balance -633 2 mL urine output 350 mL. WBC 11.97 hemoglo bin 7.6 platelet count 338,000 06/19 Patient was seen and examined. No acute events overnight. Maintained on Daptomycin and Zosyn. WCx growing Enterococcus faecalis. CBC and BMP significant for WBC 12.3, RBC 2.85, Hg 8.1, Hct 25.9, Na 131, BUN 46m Cr 5.37, glu 146, Ca 8.1. 06/20/2024 was seen and examined. No acute events overnight. WBC 10.9 hemoglobin 7.4 platelet count 316,000 sodium 132 potassium 4.2 chloride 96 BUN 61 creatinine 6.7 glucose 171 calcium 7.8 06/21/2024 patient seen and examined at bedside. No acute events overnight. No new complaints overnight. POC glucose 172 06/22/2024 patient seen and examined at bedside. No acute events overnight. No new complaints overnight. Permanent dialysis catheter placed yesterday afternoon. WBC 9.32 hemoglobin 7.1 platelet count 300,000 sodium 132 potassium 4.5 BUN 15 creatinine 5.9 glucose 185 calcium 7.9. Still waiting on placement. 06/23/2024 patient seen and examined at bedside. Currently on hemodialysis session. No acute events overnight. No new complaints overnight. WBC 8.9 hemoglobin 7.9 platelet count 303, 000 Na 133 K 4.9 bicarb 24.9 BUN 58.2 creatitinine 6.7 glucose 126 calcium 8.5 06/24/2024 patient seen and examined at bedside. No acute events overnight. No new complaints overnight. WBC 7.43 hemoglobin 7 platelet count 292,000 sodium 133 potassium 4.6 BUN 45.5 creatinine 5.2 glucose 138 calcium 7.8 06/25/2024 patient seen and examined at bedside. No acute events overnight. No new complaints. Attempted to remove patient's Hamilton however patient experienced urinary retention of around 800 mL use of Hamilton catheter was resumed. Sodium 135 potassium 4.6 BUN 59 creatinine 6.3 glucose 97 calcium 8.2 Gen: In NAD, non-toxic, on room air HEENT: normocephalic, atraumatic, hearing acuity is intant, mucous membranes moist CVS: perfusing all extremities well Respiratory: symmetric chest expansion, no accessory muscle use, bibasilar inspiratory and expiratory wheeze GI: soft, NTTP, ND : no suprapubic tenderness, no CVA tenderness MSK/Derm: no rashes, cyanosis, chronic discoloration and scaling of bilateral lower extremities, right foot covered with wound VAC today site clean and dry, wound VAC having some output, pedal edema appreciated, trace to 1+ pitting edema up to the mid calf noted on bilateral lower extremities, permcath port on R upper chest with dressing clean and dry no erythema or swelling on surrounding skin Neuro: CN II-XII intact, no motor weakness Psych: cooperative, euthymic mood, judgment and insight is intact Assessment/Plan: #CHAVO on CKD stage IIIb secondary to cardiorenal syndrome, s/p temporary and permanent hemodialysis catheter placement, improving -Baseline creatinine 1.69-2.2 -Resume Hamilton catheter -Continue to monitor daily BMP -Nephrology note reviewed, continue dialysis -Initiated Flomax 0.4mg PO daily -Farxiga and Cozaar held. Started on Phoslo and Aranesp. -Permanent catheter placement POD 4 -SW arranging outpatient dialysis # Right foot abscess, status post incision and drainage of right foot, improving, wound VAC in place #Diabetic foot infection #Leukocytosis, resolved right foot covered with wound VAC today site clean and dry, wound VAC having some output Patient being seen at home wound care. -wound care consulted -Right foot x-ray noted to have soft tissue swelling and gas, negative for osteomyelitis, no fracture or dislocation -Wound cultures positive for polymicrobial organisms -Discontinued Zosyn IVPB every 8 hours and daptomycin 700 mg IVPB every 48 hours on 06/20 -Infectious disease following continue with Unasyn IVPB daily -Vascular surgery following status post I&D day 7 today #Acute on chronic hypoxic respiratory failure secondary to CHF exacerbation, improving #Acute on chronic systolic CHF (EF 20 to 25%), NYHA class III, improving #COPD without exacerbation #Hypervolemic hyponatremia, stable -Cardiac monitoring -Supportive oxygen as needed -Fluid restrict to 2 L daily -Daily weights -Strict I's and O's -O2 NC as needed -Ordered DuoNeb 3 ml every 2 hours as needed for shortness of breath or wheezing -Nephrology following. Hemodialysis MWF. -Continue with IV Lasix 60 mg twice daily, monitor electrolytes -ASA 81 resumed -Cardiology consulted. No further intervention recommended. -GDMT: - coreg - losartan held due to CHAVO - not on mineralocorticoid, farxiga due to kidney dysfunction #Anemia of chronic disease superimposed with iron deficiency -1 unit of PRBCs today -Repeat CBC tomorrow Chronic Conditions: #Diabetes mellitus, controlled -Hold home medications -Insulin NovoLog sliding scale medium dose ACHS -Accu-Cheks ACHS -Continue home NovoLog 10 units subcu ACHS -levemir 60 units at bedtime #Hypertension -Hold amlodipine and losartan for now F: Oral intake. Restrict to 2 L fluid E: None N: Heart healthy diet with fluid restriction to 2 L DVT prophylaxis: Heparin 5000 units SQ every 8 hours GI prophylaxis: Home omeprazole 20 mg p.o. daily I have seen and evaluated the patient today. Discussed with the resident and agree with the residents finding and plan as documented in the resident's note. Changes highlighted in blue font. Objective - Vital Signs Vital signs: Vital Signs Temp 98.4 F 06/25/24 02:52 Pulse 68 06/25/24 02:52 Resp 20 06/25/24 02:52 BP 153/86 06/25/24 02:52 Pulse Ox 97 06/25/24 02:52 FiO2 21 06/17/24 08:44 Intake & Output 06/24/24 06/25/24 06/25/24 18:59 06:59 18:59 Intake Total 788 Output Total 1075 1780 Balance -287 -1780 Weight 190.962 kg Intake: Oral 788 Output: Urine 1075 1780 Uretheral (Hamilton) 740 Stool 0 Other: Voiding Method Indwelling Catheter Urinal External Catheter # Bowel Movements 1 - Labs CBC & Chem 7: 06/25/24 04:44 06/25/24 04:44 Labs: Abnormal Lab Results - Last 24 Hours (Table) 06/24/24 06/24/24 06/24/24 Range/Units 05:39 05:39 12:26 RBC 2.56 L (4.40-5.60) X 10*6/uL Hgb 7.0 L (13.0-17.0) g/dL Hct 24.1 L (39.6-50.0) % MCHC 29.0 L (32.0-37.0) g/dL RDW 15.4 H (11.5-14.5) % Immature Gran # 0.05 H (0.00-0.04) X 10*3/uL Eosinophils # 0.43 H (0.04-0.35) X 10*3/uL Sodium 133 L (135-145) mmol/L Chloride 92 L (96-109) mmol/L BUN 45.5 H (9.0-27.0) mg/dL Creatinine 5.2 H (0.6-1.5) mg/dL Est GFR (CKD-EPI) 12 L (>=60) BUN/Creatinine Ratio 8.75 L (12.00-20.00) Ratio Glucose 138 H (70-110) mg/dL POC Glucose (mg/dL) 200 H (70-110) mg/dL Calcium 7.8 L (8.7-10.3) mg/dL 06/24/24 06/24/24 Range/Units 17:27 20:25 RBC (4.40-5.60) X 10*6/uL Hgb (13.0-17.0) g/dL Hct (39.6-50.0) % MCHC (32.0-37.0) g/dL RDW (11.5-14.5) % Immature Gran # (0.00-0.04) X 10*3/uL Eosinophils # (0.04-0.35) X 10*3/uL Sodium (135-145) mmol/L Chloride (96-109) mmol/L BUN (9.0-27.0) mg/dL Creatinine (0.6-1.5) mg/dL Est GFR (CKD-EPI) (>=60) BUN/Creatinine Ratio (12.00-20.00) Ratio Glucose (70-110) mg/dL POC Glucose (mg/dL) 177 H 224 H (70-110) mg/dL Calcium (8.7-10.3) mg/dL
[2024-06-25] MEDS: TAMSULOSIN 0.4 MG CAP.ER.24H PO SCH (10:57)
[2024-06-25 11:26] LABS: HCT 21.9 % (39.6-50.0); MCH 27.8 pg (27.0-32.0); MCHC 29.7 g/dL (32.0-37.0); MCV 93.6 FL (80.0-97.0); NRBC Per 100 WBC 0 X 10*3/uL (0.00-0.01); Platelet Count 364 X 10*3/uL (140-440); RBC 2.34 X 10*6/uL (4.40-5.60); RDW 15.3 % (11.5-14.5); WBC 9.78 X 10*3/uL (4.50-10.00)
[2024-06-25 11:52] LABS: Glucose,Whole Blood 122 mg/dL (70-110)
--- NOTE | 2024-06-25 12:19 | P.PN ---
Progress Note - Text 54-year-old diabetic male history of chronic renal failure on dialysis patient had a necrotic wound on the plantar aspect of the foot we took him to surgery did the extensive debridement we have been using wound VAC patient is under care of infectious disease IV antibiotic wound is improving if patient goes home patient will follow-up with the wound clinic at [facility] continue with the wound VAC
[2024-06-25 12:21] LABS: Basophilic Stippling 2+ (None Seen); Basophils # (A) 0.03 X 10*3/uL (0.00-0.10); Basophils % (A) 0.3 %; Eosinophils # (A) 0.47 X 10*3/uL (0.04-0.35); Eosinophils % (A) 4.8 %; HGB 6.5 g/dL (13.0-17.0); Lymphocytes # (A) 0.89 X 10*3/uL (0.90-5.00); Lymphocytes % (A) 9.1 %; Monocytes # (A) 0.93 X 10*3/uL (0.20-1.00); Monocytes % (A) 9.5 %; Neutrophils % (A) 75.7 %
--- NOTE | 2024-06-25 13:24 | P.PN ---
Subjective Patient is seen for follow-up for acute kidney injury currently maintained on hemodialysis. Urine output has increased Blood pressure is on the lower side 24-hour urine output at 2855 mL Maintained on Lasix 60 mg every 12 hours. Serum creatinine remains elevated at 6.3. Scheduled for hemodialysis today. Objective - Vital Signs Vital signs: Vital Signs Temp 97.9 F 06/25/24 12:51 Pulse 64 06/25/24 12:51 Resp 18 06/25/24 12:51 BP 133/68 06/25/24 12:51 Pulse Ox 98 06/25/24 12:51 FiO2 21 06/17/24 08:44 Intake & Output 06/24/24 06/25/24 06/25/24 18:59 06:59 18:59 Intake Total 788 220 Output Total 1075 1780 Balance -287 -1780 220 Weight 190.962 kg Intake: Oral 788 220 Blood Product 0 Unit 0 Output: Urine 1075 1780 Uretheral (Hamilton) 740 Stool 0 Other: Voiding Method Indwelling Catheter Urinal Indwelling Catheter External Catheter # Bowel Movements 1 - Exam Patient is sleeping but arousable. No acute distress. Right foot with wound VAC Examination of the heart S1 and S2 Examination of the lungs bilateral breath sounds are heard Abdomen is soft morbidly obese Bilateral lower extremities show chronic skin changes, right foot wound with wound VAC - Labs CBC & Chem 7: 06/25/24 04:44 06/25/24 04:44 Labs: Abnormal Lab Results - Last 24 Hours (Table) 06/24/24 06/24/24 06/24/24 Range/Units 17:27 18:23 20:25 RBC (4.40-5.60) X 10*6/uL Hgb (13.0-17.0) g/dL Hct (39.6-50.0) % MCHC (32.0-37.0) g/dL RDW (11.5-14.5) % Immature Gran # (0.00-0.04) X 10*3/uL Lymphocytes # (0.90-5.00) X 10*3/uL Eosinophils # (0.04-0.35) X 10*3/uL Basophilic Stippling (None Seen) Chloride (96-109) mmol/L Anion Gap (4.00-12.00) mmol/L BUN (9.0-27.0) mg/dL Creatinine (0.6-1.5) mg/dL Est GFR (CKD-EPI) (>=60) BUN/Creatinine Ratio (12.00-20.00) Ratio POC Glucose (mg/dL) 177 H 224 H (70-110) mg/dL Calcium (8.7-10.3) mg/dL Crossmatch See Detail 06/25/24 06/25/24 06/25/24 Range/Units 04:44 04:44 11:50 RBC 2.34 L (4.40-5.60) X 10*6/uL Hgb 6.5 A* (13.0-17.0) g/dL Hct 21.9 L (39.6-50.0) % MCHC 29.7 L (32.0-37.0) g/dL RDW 15.3 H (11.5-14.5) % Immature Gran # 0.06 H (0.00-0.04) X 10*3/uL Lymphocytes # 0.89 L (0.90-5.00) X 10*3/uL Eosinophils # 0.47 H (0.04-0.35) X 10*3/uL Basophilic Stippling 2+ A (None Seen) Chloride 93 L (96-109) mmol/L Anion Gap 12.70 H (4.00-12.00) mmol/L BUN 59.4 H (9.0-27.0) mg/dL Creatinine 6.3 H (0.6-1.5) mg/dL Est GFR (CKD-EPI) 10 L (>=60) BUN/Creatinine Ratio 9.43 L (12.00-20.00) Ratio POC Glucose (mg/dL) 122 H (70-110) mg/dL Calcium 8.2 L (8.7-10.3) mg/dL Crossmatch Assessment and Plan Assessment: 1. Acute kidney injury secondary to ATN secondary to cardiorenal syndrome as well as contrast associated acute kidney injury. Patient received IV contrast on June 07, 2024. Creatinine 1.8 on admission and up to 5.69 dated June 13, 2024. Kidney ultrasound showed no evidence of hydronephrosis. Started on hemodialysis June 13, 2024 via temporary right IJ catheter. Urine output has increased significantly but serum creatinine remains elevated at 5-6 mg/dL. 2. Chronic kidney disease stage IIIb with baseline creatinine 1.8-2 secondary to diabetic kidney disease. 3. Acute on chronic systolic CHF ejection fraction of 30 to 35%. 4. Diabetes mellitus. 5. Anemia of chronic kidney disease. Iron deficiency noted. Status post IV iron. On Aranesp. 6. Hypervolemic hyponatremia. Stable. 7. Volume overload. Improving with diuresis and ultrafiltration. 8. Chronic kidney disease mineral bone disease. Phosphorus level 8.0 dated June 14, 2024. On PhosLo. Plan: Continue with hemodialysis. May continue with IV Lasix until discharge Accurate I's and O's. continue to monitor for recovery of renal function. Urine output has picked up significantly.5
--- NOTE | 2024-06-25 14:27 | P.PN ---
Subjective Progress Note Date: 06/25/24 Principal diagnosis: Reason for follow-up is right diabetic foot infection Patient is a 54-year-old male with a past medical history significant for COPD diabetes mellitus [place] sleep apnea presenting the hospital initially for evaluation of increasing shortness of breath patient also have a right diabetic foot ulcer being treated by the wound care noticed to have worsening diagnosed with an abscess prompting this consultation patient is status post extensive surgical debridement which was sent down to the fascia and tendon. On today's evaluation that is 06/25/2024, patient did not have any fever and denies any chills, patient is breathing comfortably on room air, patient with no chest pain or cough patient did not have any abdominal pain nausea vomiting or any loose stools and denies pain to the right foot. Patient white count is 9.78, creatinine 6.3 Objective - Vital Signs Vital signs: Vital Signs Temp 97.9 F 06/25/24 12:51 Pulse 64 06/25/24 12:51 Resp 18 06/25/24 12:51 BP 133/68 06/25/24 12:51 Pulse Ox 98 06/25/24 12:51 FiO2 21 06/17/24 08:44 Intake & Output 06/24/24 06/25/24 06/25/24 18:59 06:59 18:59 Intake Total 788 220 Output Total 1075 1780 Balance -287 -1780 220 Weight 190.962 kg Intake: Oral 788 220 Blood Product 0 Unit 0 Output: Urine 1075 1780 Uretheral (Hamilton) 740 Stool 0 Other: Voiding Method Indwelling Catheter Urinal Indwelling Catheter External Catheter # Bowel Movements 1 - Exam GENERAL DESCRIPTION: Middle-age male lying in bed in no distress RESPIRATORY SYSTEM: Unlabored breathing , decreased breath sounds at bases HEART: S1 S2 regular rate and rhythm , ABDOMEN: Soft , no tenderness EXTREMITIES: Right foot wound is currently covered with a wound VAC - Labs CBC & Chem 7: 06/25/24 04:44 06/25/24 04:44 Labs: Abnormal Lab Results - Last 24 Hours (Table) 06/24/24 06/24/24 06/24/24 Range/Units 17:27 18:23 20:25 RBC (4.40-5.60) X 10*6/uL Hgb (13.0-17.0) g/dL Hct (39.6-50.0) % MCHC (32.0-37.0) g/dL RDW (11.5-14.5) % Immature Gran # (0.00-0.04) X 10*3/uL Lymphocytes # (0.90-5.00) X 10*3/uL Eosinophils # (0.04-0.35) X 10*3/uL Basophilic Stippling (None Seen) Chloride (96-109) mmol/L Anion Gap (4.00-12.00) mmol/L BUN (9.0-27.0) mg/dL Creatinine (0.6-1.5) mg/dL Est GFR (CKD-EPI) (>=60) BUN/Creatinine Ratio (12.00-20.00) Ratio POC Glucose (mg/dL) 177 H 224 H (70-110) mg/dL Calcium (8.7-10.3) mg/dL Crossmatch See Detail 06/25/24 06/25/24 06/25/24 Range/Units 04:44 04:44 11:50 RBC 2.34 L (4.40-5.60) X 10*6/uL Hgb 6.5 A* (13.0-17.0) g/dL Hct 21.9 L (39.6-50.0) % MCHC 29.7 L (32.0-37.0) g/dL RDW 15.3 H (11.5-14.5) % Immature Gran # 0.06 H (0.00-0.04) X 10*3/uL Lymphocytes # 0.89 L (0.90-5.00) X 10*3/uL Eosinophils # 0.47 H (0.04-0.35) X 10*3/uL Basophilic Stippling 2+ A (None Seen) Chloride 93 L (96-109) mmol/L Anion Gap 12.70 H (4.00-12.00) mmol/L BUN 59.4 H (9.0-27.0) mg/dL Creatinine 6.3 H (0.6-1.5) mg/dL Est GFR (CKD-EPI) 10 L (>=60) BUN/Creatinine Ratio 9.43 L (12.00-20.00) Ratio POC Glucose (mg/dL) 122 H (70-110) mg/dL Calcium 8.2 L (8.7-10.3) mg/dL Crossmatch Assessment and Plan (1) Diabetic foot infection Current Visit: Yes Status: Acute Code(s): E11.628 - TYPE 2 DIABETES MELLITUS WITH OTHER SKIN COMPLICATIONS; L08.9 - LOCAL INFECTION OF THE SKIN AND SUBCUTANEOUS TISSUE, UNSP SNOMED Code(s): 108980034 (2) Foot abscess, right Current Visit: Yes Status: Acute Code(s): L02.611 - CUTANEOUS ABSCESS OF RI GHT FOOT SNOMED Code(s): 30163739657269936 Plan: 1patient with a chronic nonhealing wound on the plantar aspect of the right foot now with evidence of significant foul-smelling drainage and fluctuation concerning for an abscess with the x-ray suggestive of possible gas-forming pathogen we will need to cover for the polymicrobial birdie associated with diabetic foot infection. 2patient with acute on chronic kidney insufficiency and high risk of vancomycin toxicity 3patient is status post surgical debridement of the right foot abscess e xtending down to the fascia and tendon and deep culture which are currently growing Enterococcus faecalis strep anaerobes 4patient is currently being treated Unasyn to cover for the pathogen grown in the culture will likely need IV antibiotics on discharge, however nephrology recommending antibiotics through the dialysis instead of getting a PICC line and sending it to be more acute on chronic renal failure and trying to avoid vancomycin on discharge we will consider daptomycin 6 mg/kg at end of his dialysis and oral Flagyl x 4-week on discharge, and close outpatient follow-up for now continue with Unasyn while inpatient Dictation was produced using [employer] dictation software. please excuse any grammatical, word or spelling errors. Time with Patient: Less than 30
[2024-06-25 15:57] LABS: Hypochromasia Moderate; MCH 27.9 pg (25.0-35.0); MCV 90.2 fL (80.0-100.0); Mean Platelet Volume 7.6; Platelet Count 346 k/uL (150-450); RBC 2.88 m/uL (4.30-5.90); RDW 15.7 % (11.5-15.5); WBC 7.5 k/uL (3.8-10.6)
[2024-06-25 17:29] LABS: Glucose,Whole Blood 183 mg/dL (70-110)
[2024-06-25 20:33] LABS: Glucose,Whole Blood 216 mg/dL (70-110)
[2024-06-26 05:58] LABS: Glucose,Whole Blood 115 mg/dL (70-110)
[2024-06-26 09:59] LABS: BUN/Creat Ratio 8.83 Ratio (12.00-20.00); Blood Urea Nitrogen 41.5 mg/dL (9.0-27.0); Calcium 8.2 mg/dL (8.7-10.3); Carbon Dioxide 28.7 mmol/L (21.6-31.8); Chloride 96 mmol/L (96-109); Glucose 84 mg/dL (70-110); Potassium 4.2 mmol/L (3.5-5.5); Sodium 136 mmol/L (135-145)
[2024-06-26 12:34] LABS: Glucose,Whole Blood 158 mg/dL (70-110)
--- NOTE | 2024-06-26 12:39 | P.PN ---
Subjective Progress Note Date: 06/26/24 Subjective: Patient seen and examined at bedside. No acute events overnight. Pertinent positives and negatives as discussed above, a complete review of systems was performed and all other systems are negative. Vitals Signs Reviewed. General: Nontoxic, no distress, appears at stated age, morbidly obese Derm: Warm, dry, chronic discoloration and scaling of bilateral lower extremities, right foot covered with wound VAC Head: Atraumatic, normocephalic, symmetric Eyes: EOMI, no lid lag, anicteric sclera Mouth: No lip lesion, mucus membranes moist Cardiovascular: S1S2 reg, no murmur Lungs: CTA bilateral, no rhonchi, no rales, no accessory muscle use Abdominal: Soft, nontender to palpation, no guarding, no appreciable organomegaly Ext: No gross muscle atrophy, 2+ pitting lower extremity edema, no contractures Neuro: CN II-XI grossly intact, no focal neuro deficits Psych: Alert, oriented, appropriate affect Data Reviewed Today: Pertinent Labs: Sodium 136, creatinine 4.7 Imaging: No new imaging Assessment and Plan: Active: Right foot abscess status post incision and drainage, status post wound VAC Diabetic foot infection Leukocytosis, resolved -ID following -Wound care following, wound VAC in place -Currently on Unasyn IV, plan for daptomycin and oral Flagyl at the time of discharge CHAVO on CKD stage III, now on dialysis Acute hypoxic respiratory failure, resolved Acute on chronic systolic CHF exacerbation COPD, without exacerbation Iron deficiency anemia and anemia of chronic disease Hyponatremia, resolved -Nephrology following -Patient continued on IV Lasix 60 every 12 hours, monitor electrolytes -Patient on darbepoetin subcu q. 7 days, also status post 1 unit of PRBCs during this admission -CBC tomorrow -No active bleeding -Continue Coreg 6.25 twice daily, will need further guideline directed medical therapy Type 2 diabetes -Levemir 60 units nightly, insulin aspart 10 units 3 times daily, also on sliding scale insulin, monitor for hypoglycemia Acute urinary retention -Hamilton catheter in place -Tamsulosin 0.4 mg daily Chronic: GERD DVT ppx: Subcu heparin Code status: Full code Anticipated discharge place: Pending clinical course Anticipated discharge time: Pending clinical course Objective - Vital Signs Vital signs: Vital Signs Temp 98.5 F 06/26/24 07:20 Pulse 80 06/26/24 12:07 Resp 18 06/26/24 07:20 BP 157/93 06/26/24 07:20 Pulse Ox 96 06/26/24 07:20 FiO2 21 06/17/24 08:44 Intake & Output 06/25/24 06/26/24 06/26/24 18:59 06:59 18:59 Intake Total 1860 Output Total 6500 2150 Balance -4640 -2150 Weight 189.783 kg Intake: Oral 1050 Blood Product 310 Rc As-1 Unit 310 [id number] Hemodialysis 500 Output: Urine 2150 Hemodialysis 3500 Hemodialysis Net Amount 3000 Other: Voiding Method Indwelling Catheter Indwelling Catheter Indwelling Catheter - Labs CBC & Chem 7: 06/25/24 15:41 06/26/24 06:56 Labs: Abnormal Lab Results - Last 24 Hours (Table) 06/24/24 06/25/24 06/25/24 Range/Units 18:23 15:41 17:28 RBC 2.88 L (4.30-5.90) m/uL Hgb 8.0 L (13.0-17.5) gm/dL Hct 26.0 L (39.0-53.0) % RDW 15.7 H (11.5-15.5) % BUN (9.0-27.0) mg/dL Creatinine (0.6-1.5) mg/dL Est GFR (CKD-EPI) (>=60) BUN/Creatinine Ratio (12.00-20.00) Ratio POC Glucose (mg/dL) 183 H (70-110) mg/dL Calcium (8.7-10.3) mg/dL Crossmatch See Detail 06/25/24 06/26/24 06/26/24 Range/Units 20:31 05:55 06:56 RBC (4.30-5.90) m/uL Hgb (13.0-17.5) gm/dL Hct (39.0-53.0) % RDW (11.5-15.5) % BUN 41.5 H (9.0-27.0) mg/dL Creatinine 4.7 H (0.6-1.5) mg/dL Est GFR (CKD-EPI) 14 L (>=60) BUN/Creatinine Ratio 8.83 L (12.00-20.00) Ratio POC Glucose (mg/dL) 216 H 115 H (70-110) mg/dL Calcium 8.2 L (8.7-10.3) mg/dL Crossmatch 06/26/24 Range/Units 12:33 RBC (4.30-5.90) m/uL Hgb (13.0-17.5) gm/dL Hct (39.0-53.0) % RDW (11.5-15.5) % BUN (9.0-27.0) mg/dL Creatinine (0.6-1.5) mg/dL Est GFR (CKD-EPI) (>=60) BUN/Creatinine Ratio (12.00-20.00) Ratio POC Glucose (mg/dL) 158 H (70-110) mg/dL Calcium (8.7-10.3) mg/dL Crossmatch
--- NOTE | 2024-06-26 14:23 | P.PN ---
Subjective Patient is seen for follow-up for acute kidney injury currently maintained on hemodialysis. Urine output has increased Blood pressure is on the lower side 24-hour urine output at 2150 mL Maintained on Lasix 60 mg every 12 hours. Serum creatinine remains elevated at 5 to 6 mg/dL . Status post hemodialysis yesterday. Objective - Vital Signs Vital signs: Vital Signs Temp 98.5 F 06/26/24 07:20 Pulse 80 06/26/24 12:07 Resp 18 06/26/24 07:20 BP 157/93 06/26/24 07:20 Pulse Ox 96 06/26/24 07:20 FiO2 21 06/17/24 08:44 Intake & Output 06/25/24 06/26/24 06/26/24 18:59 06:59 18:59 Intake Total 1860 Output Total 6500 2150 Balance -4640 -2150 Weight 189.783 kg Intake: Oral 1050 Blood Product 310 Rc As-1 Unit 310 [id number] Hemodialysis 500 Output: Urine 2150 Hemodialysis 3500 Hemodialysis Net Amount 3000 Other: Voiding Method Indwelling Catheter Indwelling Catheter Indwelling Catheter - Exam Patient is sleeping but arousable. No acute distress. Right foot with wound VAC Examination of the heart S1 and S2 Examination of the lungs bilateral breath sounds are heard Abdomen is soft morbidly obese Bilateral lower extremities show chronic skin changes, right foot wound with wound VAC - Labs CBC & Chem 7: 06/25/24 15:41 06/26/24 06:56 Labs: Abnormal Lab Results - Last 24 Hours (Table) 06/24/24 06/25/24 06/25/24 Range/Units 18:23 15:41 17:28 RBC 2.88 L (4.30-5.90) m/uL Hgb 8.0 L (13.0-17.5) gm/dL Hct 26.0 L (39.0-53.0) % RDW 15.7 H (11.5-15.5) % BUN (9.0-27.0) mg/dL Creatinine (0.6-1.5) mg/dL Est GFR (CKD-EPI) (>=60) BUN/Creatinine Ratio (12.00-20.00) Ratio POC Glucose (mg/dL) 183 H (70-110) mg/dL Calcium (8.7-10.3) mg/dL Crossmatch See Detail 06/25/24 06/26/24 06/26/24 Range/Units 20:31 05:55 06:56 RBC (4.30-5.90) m/uL Hgb (13.0-17.5) gm/dL Hct (39.0-53.0) % RDW (11.5-15.5) % BUN 41.5 H (9.0-27.0) mg/dL Creatinine 4.7 H (0.6-1.5) mg/dL Est GFR (CKD-EPI) 14 L (>=60) BUN/Creatinine Ratio 8.83 L (12.00-20.00) Ratio POC Glucose (mg/dL) 216 H 115 H (70-110) mg/dL Calcium 8.2 L (8.7-10.3) mg/dL Crossmatch 06/26/24 Range/Units 12:33 RBC (4.30-5.90) m/uL Hgb (13.0-17.5) gm/dL Hct (39.0-53.0) % RDW (11.5-15.5) % BUN (9.0-27.0) mg/dL Creatinine (0.6-1.5) mg/dL Est GFR (CKD-EPI) (>=60) BUN/Creatinine Ratio (12.00-20.00) Ratio POC Glucose (mg/dL) 158 H (70-110) mg/dL Calcium (8.7-10.3) mg/dL Crossmatch Assessment and Plan Assessment: 1. Acute kidney injury secondary to ATN secondary to cardiorenal syndrome as well as contrast associated acute kidney injury. Patient received IV contrast on June 07, 2024. Creatinine 1.8 on admission and up to 5.69 dated June 13, 2024. Kidney ultrasound showed no evidence of hydronephrosis. Started on hemodialysis June 13, 2024 via temporary right IJ catheter. Urine output has increased significantly but serum creatinine remains elevated at 5-6 mg/dL. 2. Chronic kidney disease stage IIIb with baseline creatinine 1.8-2 secondary to diabetic kidney disease. 3. Acute on chronic systolic CHF ejection fraction of 30 to 35%. 4. Diabetes mellitus. 5. Anemia of chronic kidney disease. Iron deficiency noted. Status post IV iron. On Aranesp. 6. Hypervolemic hyponatremia. Stable. 7. Volume overload. Improving with diuresis and ultrafiltration. 8. Chronic kidney disease mineral bone disease. Phosphorus level 8.0 dated June 14, 2024. On PhosLo. Plan: Continue with hemodialysis. May continue with IV Lasix until discharge Accurate I's and O's. continue to monitor for recovery of renal function. Urine output has picked up significantly.
[2024-06-26 17:31] LABS: Glucose,Whole Blood 218 mg/dL (70-110)
[2024-06-26] MEDS: INSULIN ASPART (NovoLOG) 100 UNIT/ML VIAL SQ SCH (18:04)
[2024-06-26 20:23] LABS: Glucose,Whole Blood 148 mg/dL (70-110)
[2024-06-27 05:39] LABS: Glucose,Whole Blood 211 mg/dL (70-110)
[2024-06-27 08:39] LABS: Basophils # (A) 0.03 X 10*3/uL (0.00-0.10); Basophils % (A) 0.4 %; Eosinophils # (A) 0.48 X 10*3/uL (0.04-0.35); Eosinophils % (A) 6.8 %; HCT 27.1 % (39.6-50.0); Lymphocytes # (A) 0.88 X 10*3/uL (0.90-5.00); Lymphocytes % (A) 12.4 %; MCH 28.1 pg (27.0-32.0); MCHC 29.5 g/dL (32.0-37.0); MCV 95.1 FL (80.0-97.0); Mean Platelet Volume 9.9 FL (9.5-12.2); Monocytes # (A) 0.56 X 10*3/uL (0.20-1.00); Monocytes % (A) 7.9 %; NRBC Per 100 WBC 0 X 10*3/uL (0.00-0.01); Neutrophils % (A) 71.9 %; Platelet Count 343 X 10*3/uL (140-440); RBC 2.85 X 10*6/uL (4.40-5.60); RDW 15.5 % (11.5-14.5); WBC 7.09 X 10*3/uL (4.50-10.00)
--- NOTE | 2024-06-27 09:05 | P.PN ---
Subjective Progress Note Date: 06/26/24 Principal diagnosis: Reason for follow-up is right diabetic foot infection Patient is a 54-year-old male with a past medical history significant for COPD diabetes mellitus [place] sleep apnea presenting the hospital initially for evaluation of increasing shortness of breath patient also have a right diabetic foot ulcer being treated by the wound care noticed to have worsening diagnosed with an abscess prompting this consultation patient is status post extensive surgical debridement which was sent down to the fascia and tendon. On today's evaluation that is 06/26/2024, Patient is afebrile patient is currently on room air and denies having any shortness of breath, the patient denies any chest pain or cough, the patient denies any nausea vomiting did not have any abdominal pain and no diarrhea and denies pain to the right foot wound area. Patient did have a creatinine of 4.7 no CBC was done today Objective - Vital Signs Vital signs: Vital Signs Temp 98.0 F 06/26/24 14:05 Pulse 74 06/26/24 14:05 Resp 16 06/26/24 14:05 BP 151/82 06/26/24 14:05 Pulse Ox 93 L 06/26/24 14:05 FiO2 21 06/17/24 08:44 Intake & Output 06/25/24 06/26/24 06/26/24 18:59 06:59 18:59 Intake Total 1860 Output Total 6500 2150 Balance -4640 -2150 Weight 189.783 kg Intake: Oral 1050 Blood Product 310 Rc As-1 Unit 310 [id number] Hemodialysis 500 Output: Urine 2150 Hemodialysis 3500 Hemodialysis Net Amount 3000 Other: Voiding Method Indwelling Catheter Indwelling Catheter Indwelling Catheter - Exam GENERAL DESCRIPTION: Middle-age male lying in bed in no distress RESPIRATORY SYSTEM: Unlabored breathing , decreased breath sounds at bases HEART: S1 S2 regular rate and rhythm , ABDOMEN: Soft , no tenderness EXTREMITIES: Right foot wound is currently covered with a wound VAC - Labs CBC & Chem 7: 06/27/24 04:25 06/26/24 06:56 Labs: Abnormal Lab Results - Last 24 Hours (Table) 06/25/24 06/25/24 06/25/24 Range/Units 15:41 17:28 20:31 RBC 2.88 L (4.30-5.90) m/uL Hgb 8.0 L (13.0-17.5) gm/dL Hct 26.0 L (39.0-53.0) % RDW 15.7 H (11.5-15.5) % BUN (9.0-27.0) mg/dL Creatinine (0.6-1.5) mg/dL Est GFR (CKD-EPI) (>=60) BUN/Creatinine Ratio (12.00-20.00) Ratio POC Glucose (mg/dL) 183 H 216 H (70-110) mg/dL Calcium (8.7-10.3) mg/dL 06/26/24 06/26/24 06/26/24 Range/Units 05:55 06:56 12:33 RBC (4.30-5.90) m/uL Hgb (13.0-17.5) gm/dL Hct (39.0-53.0) % RDW (11.5-15.5) % BUN 41.5 H (9.0-27.0) mg/dL Creatinine 4.7 H (0.6-1.5) mg/dL Est GFR (CKD-EPI) 14 L (>=60) BUN/Creatinine Ratio 8.83 L (12.00-20.00) Ratio POC Glucose (mg/dL) 115 H 158 H (70-110) mg/dL Calcium 8.2 L (8.7-10.3) mg/dL Assessment and Plan (1) Diabetic foot infection Current Visit: Yes Status: Acute Code(s): E11.628 - TYPE 2 DIABETES MELLITUS WITH OTHER SKIN COMPLICATIONS; L08.9 - LOCAL INFECTION OF THE SKIN AND SUBCUTANEOUS TISSUE, UNSP SNOMED Code(s): 442289748 (2) Foot abscess, right Current Visit: Yes Status: Acute Code(s): L02.611 - CUTANEOUS ABSCESS OF RIGHT FOOT SNOMED Code(s): 99115241060058239 Plan: 1patient with a chronic nonhealing wound on the plantar aspect of the right foot now with evidence of significant foul-smelling drainage and fluctuation concerning for an abscess with the x-ray suggestive of possible gas-forming pathogen we will need to cover for the polymicrobial birdie associated with diabetic foot infection. 2patient with acute on chronic kidney insufficiency and high risk of vancomycin toxicity 3patient is status post surgical debridement of the right foot abscess extending down to the fascia and tendon and deep culture which are currently growing Enterococcus faecalis strep anaerobes 4patient is currently being treated Unasyn to cover for the pathogen grown in the culture, plan is for daptomycin 6 mg/kg at end of his dialysis and oral Flagyl x 4-week on discharge, Dictation was produced using [employer] dictation software. please excuse any grammatical, word or spelling errors. Time with Patient: Less than 30
--- NOTE | 2024-06-27 09:10 | P.PN ---
Subjective Patient is seen in follow-up for acute kidney injury on chronic kidney disease. Started on hemodialysis June 13, 2024. Nonoliguric. On IV Lasix. Vital signs are stable. General: No acute distress. HEENT: Head exam is unremarkable. On nasal cannula. LUNGS: No audible rhonchi or wheezes. HEART: Rate and Rhythm are regular. ABDOMEN: Obese, nontender. EXTREMITITES: 2+ edema. Wound VAC noted. Objective - Vital Signs Vital signs: Vital Signs Temp 98.6 F 06/27/24 07:31 Pulse 72 06/27/24 09:02 Resp 17 06/27/24 07:31 BP 149/81 06/27/24 07:31 Pulse Ox 94 L 06/27/24 07:31 FiO2 21 06/17/24 08:44 Intake & Output 06/26/24 06/27/24 06/27/24 18:59 06:59 18:59 Intake Total 120 Output Total 900 Balance -900 120 Weight 189.329 kg Intake: Oral 120 Output: Urine 900 Other: Voiding Method Indwelling Catheter Indwelling Catheter # Voids 2 - Labs CBC & Chem 7: 06/27/24 04:25 06/26/24 06:56 Labs: Abnormal Lab Results - Last 24 Hours (Table) 06/26/24 06/26/24 06/26/24 Range/Units 06:56 12:33 17:29 RBC (4.40-5.60) X 10*6/uL Hgb (13.0-17.0) g/dL Hct (39.6-50.0) % MCHC (32.0-37.0) g/dL RDW (11.5-14.5) % Lymphocytes # (0.90-5.00) X 10*3/uL Eosinophils # (0.04-0.35) X 10*3/uL BUN 41.5 H (9.0-27.0) mg/dL Creatinine 4.7 H (0.6-1.5) mg/dL Est GFR (CKD-EPI) 14 L (>=60) BUN/Creatinine Ratio 8.83 L (12.00-20.00) Ratio POC Glucose (mg/dL) 158 H 218 H (70-110) mg/dL Calcium 8.2 L (8.7-10.3) mg/dL 06/26/24 06/27/24 06/27/24 Range/Units 20:22 04:25 05:37 RBC 2.85 L (4.40-5.60) X 10*6/uL Hgb 8.0 L (13.0-17.0) g/dL Hct 27.1 L (39.6-50.0) % MCHC 29.5 L (32.0-37.0) g/dL RDW 15.5 H (11.5-14.5) % Lymphocytes # 0.88 L (0.90-5.00) X 10*3/uL Eosinophils # 0.48 H (0.04-0.35) X 10*3/uL BUN (9.0-27.0) mg/dL Creatinine (0.6-1.5) mg/dL Est GFR (CKD-EPI) (>=60) BUN/Creatinine Ratio (12.00-20.00) Ratio POC Glucose (mg/dL) 148 H 211 H (70-110) mg/dL Calcium (8.7-10.3) mg/dL Assessment and Plan Plan: Assessment: 1. Acute kidney injury secondary to ATN secondary to cardiorenal syndrome as well as contrast associated acute kidney injury. Patient received IV contrast on June 07, 2024. Creatinine 1.8 on admission and was over 6 this admission. Kidney ultrasound showed no evidence of hydronephrosis. Started on hemodialysis June 13, 2024 via temporary right IJ catheter. Now has permacath. 2. Chronic kidney disease stage IIIb with baseline creatinine 1.8-2 secondary to diabetic kidney disease. 3. Acute on chronic systolic CHF ejection fraction of 30 to 35%. 4. Diabetes mellitus. 5. Anemia of chronic kidney disease. Iron deficiency noted. Status post IV iron. On Aranesp. 6. Hypervolemic hyponatremia. Stable. 7. Volume overload. Improving with diuresis and ultrafiltration. 8. Chronic kidney disease mineral bone disease. Phosphorus level 8.0 dated D 2023. On PhosLo. Plan: Hemodialysis tomorrow. Check labs in the morning and monitor for renal recovery. Check phosphorus level. Maintain IV Lasix. Transition to oral torsemide 40 mg once daily upon discharge. Avoid nephrotoxins. Monitor for renal recovery. Outpatient dialysis being set up by wrapper caser.
[2024-06-27 09:24] LABS: BUN/Creat Ratio 9.05 Ratio (12.00-20.00); Blood Urea Nitrogen 49.8 mg/dL (9.0-27.0); Glucose 229 mg/dL (70-110)
[2024-06-27 09:25] LABS: Calcium 8.3 mg/dL (8.7-10.3); Carbon Dioxide 29.2 mmol/L (21.6-31.8); Chloride 94 mmol/L (96-109); Potassium 4.7 mmol/L (3.5-5.5); Sodium 135 mmol/L (135-145)
[2024-06-27 12:24] LABS: Glucose,Whole Blood 97 mg/dL (70-110)
--- NOTE | 2024-06-27 13:25 | P.PN ---
Subjective Progress Note Date: 06/27/24 Subjective: Patient seen and examined at bedside. No acute events overnight. Pertinent positives and negatives as discussed above, a complete review of systems was performed and all other systems are negative. Vitals Signs Reviewed. Gen: In NAD, non-toxic HEENT: normocephalic, atraumatic, hearing acuity is intant, mucous membranes moist CVS: perfusing all extremities, bilateral pitting edema, Respiratory: symmetric chest expansion, no accessory muscle use, GI: soft, NTTP, ND, : no suprapubic tenderness, no CVA tenderness MSK/Derm: no rashes, cyanosis Neuro: CN II-XII intact, no motor weakness, Psych: cooperative, euthymic mood, judgment and insight is intact Assessment and Plan: Active: Right foot abscess status post incision and drainage, status post wound VAC Diabetic foot infection Leukocytosis, resolved -ID following -Wound care following, wound VAC in place -Currently on Unasyn IV, plan for daptomycin and oral Flagyl at the time of discharge CHAVO on CKD stage III, now on dialysis Acute hypoxic respiratory failure, resolved Acute on chronic systolic CHF exacerbation COPD, without exacerbation Iron deficiency anemia and anemia of chronic disease Hyponatremia, resolved -Nephrology following -Patient continued on IV Lasix 60 every 12 hours, monitor electrolytes -Patient on darbepoetin subcu q. 7 days, also status post 1 unit of PRBCs during this admission -CBC tomorrow -No active bleeding -Continue Coreg 6.25 twice daily, will need further guideline directed medical therapy Type 2 diabetes -Levemir 60 units nightly, insulin aspart 10 units 3 times daily, also on sliding scale insulin, monitor for hypoglycemia Acute urinary retention -Hamilton catheter in place -Tamsulosin 0.4 mg daily Chronic: GERD DVT ppx: Subcu heparin Code status: Full code Anticipated discharge place: Pending clinical course Anticipated discharge time: Pending clinical course Objective - Vital Signs Vital signs: Vital Signs Temp 98.6 F 06/27/24 07:31 Pulse 76 06/27/24 09:11 Resp 17 06/27/24 08:00 BP 149/81 06/27/24 07:31 Pulse Ox 94 L 06/27/24 07:31 FiO2 21 06/17/24 08:44 Intake & Output 12/15/24 12/16/24 12/16/24 18:59 06:59 18:59 Intake Total 120 222 Output Total 900 Balance -900 120 222 Weight 189.329 kg Intake: Oral 120 222 Output: Urine 900 Other: Voiding Method Indwelling Catheter Indwelling Catheter Indwelling Catheter # Voids 2 - Labs CBC & Chem 7: 06/27/24 04:25 06/27/24 04:25 Labs: Abnormal Lab Results - Last 24 Hours (Table) 06/26/24 06/26/24 06/27/24 Range/Units 17:29 20:22 04:25 RBC 2.85 L (4.40-5.60) X 10*6/uL Hgb 8.0 L (13.0-17.0) g/dL Hct 27.1 L (39.6-50.0) % MCHC 29.5 L (32.0-37.0) g/dL RDW 15.5 H (11.5-14.5) % Lymphocytes # 0.88 L (0.90-5.00) X 10*3/uL Eosinophils # 0.48 H (0.04-0.35) X 10*3/uL Chloride (96-109) mmol/L BUN (9.0-27.0) mg/dL Creatinine (0.6-1.5) mg/dL Est GFR (CKD-EPI) (>=60) BUN/Creatinine Ratio (12.00-20.00) Ratio Glucose (70-110) mg/dL POC Glucose (mg/dL) 218 H 148 H (70-110) mg/dL Calcium (8.7-10.3) mg/dL 06/27/24 06/27/24 Range/Units 04:25 05:37 RBC (4.40-5.60) X 10*6/uL Hgb (13.0-17.0) g/dL Hct (39.6-50.0) % MCHC (32.0-37.0) g/dL RDW (11.5-14.5) % Lymphocytes # (0.90-5.00) X 10*3/uL Eosinophils # (0.04-0.35) X 10*3/uL Chloride 94 L (96-109) mmol/L BUN 49.8 H (9.0-27.0) mg/dL Creatinine 5.5 H (0.6-1.5) mg/dL Est GFR (CKD-EPI) 12 L (>=60) BUN/Creatinine Ratio 9.05 L (12.00-20.00) Ratio Glucose 229 H (70-110) mg/dL POC Glucose (mg/dL) 211 H (70-110) mg/dL Calcium 8.3 L (8.7-10.3) mg/dL
[2024-06-27 14:56] LABS: Glucose,Whole Blood 173 mg/dL (70-110)
[2024-06-27 17:25] LABS: Glucose,Whole Blood 212 mg/dL (70-110)
[2024-06-27 20:13] LABS: Glucose,Whole Blood 222 mg/dL (70-110)
--- NOTE | 2024-06-27 21:29 | P.PN ---
Subjective Progress Note Date: 06/27/24 Principal diagnosis: Reason for follow-up is right diabetic foot infection Patient is a 54-year-old male with a past medical history significant for COPD diabetes mellitus [place] sleep apnea presenting the hospital initially for evaluation of increasing shortness of breath patient also have a right diabetic foot ulcer being treated by the wound care noticed to have worsening diagnosed with an abscess prompting this consultation patient is status post extensive surgical debridement which was sent down to the fascia and tendon. On today's evaluation that is 06/27/2024, patient has been afebrile, patient is breathing comfortably and is currently on room air, patient denies having any significant cough no chest pain, patient denies nausea vomiting or diarrhea and no abdominal pain denies pain to the right foot. Patient did have white count of 7.09 creatinine is 5.5 Objective - Vital Signs Vital signs: Vital Signs Temp 98.6 F 06/27/24 07:31 Pulse 76 06/27/24 09:11 Resp 17 06/27/24 08:00 BP 149/81 06/27/24 07:31 Pulse Ox 94 L 06/27/24 07:31 FiO2 21 06/17/24 08:44 Intake & Output 06/26/24 06/27/24 06/27/24 18:59 06:59 18:59 Intake Total 120 222 Output Total 900 Balance -900 120 222 Weight 189.329 kg Intake: Oral 120 222 Output: Urine 900 Other: Voiding Method Indwelling Catheter Indwelling Catheter Indwelling Catheter # Voids 2 - Exam GENERAL DESCRIPTION: Middle-age male lying in bed in no distress RESPIRATORY SYSTEM: Unlabored breathing , decreased breath sounds at bases HEART: S1 S2 regular rate and rhythm , ABDOMEN: Soft , no tenderness EXTREMITIES: Right foot wound is currently covered with a wound VAC - Labs CBC & Chem 7: 06/27/24 04:25 06/27/24 04:25 Labs: Abnormal Lab Results - Last 24 Hours (Table) 06/26/24 06/26/24 06/27/24 Range/Units 17:29 20:22 04:25 RBC 2.85 L (4.40-5.60) X 10*6/uL Hgb 8.0 L (13.0-17.0) g/dL Hct 27.1 L (39.6-50.0) % MCHC 29.5 L (32.0-37.0) g/dL RDW 15.5 H (11.5-14.5) % Lymphocytes # 0.88 L (0.90-5.00) X 10*3/uL Eosinophils # 0.48 H (0.04-0.35) X 10*3/uL Chloride (96-109) mmol/L BUN (9.0-27.0) mg/dL Creatinine (0.6-1.5) mg/dL Est GFR (CKD-EPI) (>=60) BUN/Creatinine Ratio (12.00-20.00) Ratio Glucose (70-110) mg/dL POC Glucose (mg/dL) 218 H 148 H (70-110) mg/dL Calcium (8.7-10.3) mg/dL 06/27/24 06/27/24 Range/Units 04:25 05:37 RBC (4.40-5.60) X 10*6/uL Hgb (13.0-17.0) g/dL Hct (39.6-50.0) % MCHC (32.0-37.0) g/dL RDW (11.5-14.5) % Lymphocytes # (0.90-5.00) X 10*3/uL Eosinophils # (0.04-0.35) X 10*3/uL Chloride 94 L (96-109) mmol/L BUN 49.8 H (9.0-27.0) mg/dL Creatinine 5.5 H (0.6-1.5) mg/dL Est GFR (CKD-EPI) 12 L (>=60) BUN/Creatinine Ratio 9.05 L (12.00-20.00) Ratio Glucose 229 H (70-110) mg/dL POC Glucose (mg/dL) 211 H (70-110) mg/dL Calcium 8.3 L (8.7-10.3) mg/dL Assessment and Plan (1) Diabetic foot infection Current Visit: Yes Status: Acute Code(s): E11.628 - TYPE 2 DIABETES MELLITUS WITH OTHER SKIN COMPLICATIONS; L08.9 - LOCAL INFECTION OF THE SKIN AND SUBCUTANEOUS TISSUE, UNSP SNOMED Code(s): 395449065 (2) Foot abscess, right Current Visit: Yes Status: Acute Code(s): L02.611 - CUTANEOUS ABSCESS OF RIGHT FOOT SNOMED Code(s): 37107813471924265 Plan: 1patient with a chronic nonhealing wound on the plantar aspect of the right foot now with evidence of significant foul-smelling drainage and fluctuation concerning for an abscess with the x-ray suggestive of possible gas-forming pathogen we will need to cover for the polymicrobial birdie associated with diabetic foot infection. 2patient with acute on chronic kidney insufficiency and high risk of vancomycin toxicity 3patient is status post surgical debridement of the right foot abscess extending down to the fascia and tendon and deep culture which are currently growing Enterococcus faecalis strep anaerobes 4patient to continue Unasyn while inpatient to cover for the pathogen grown in the culture, however plan is for daptomycin 6 mg/kg at end of his dialysis and oral Flagyl x 4-week on discharge, Dictation was produced using [employer] dictation software. please excuse any grammatical, word or spelling errors. Time with Patient: Less than 30
[2024-06-28 06:11] LABS: Glucose,Whole Blood 146 mg/dL (70-110)
[2024-06-28 08:44] LABS: BUN/Creat Ratio 9.66 Ratio (12.00-20.00); Calcium 8.2 mg/dL (8.7-10.3); Carbon Dioxide 27.3 mmol/L (21.6-31.8); Chloride 95 mmol/L (96-109); Glucose 151 mg/dL (70-110); Potassium 4.9 mmol/L (3.5-5.5); Sodium 136 mmol/L (135-145)
--- NOTE | 2024-06-28 10:49 | P.PN ---
Subjective Patient is seen in follow-up for acute kidney injury on chronic kidney disease. Started on hemodialysis June 13, 2024. Nonoliguric. On IV Lasix. Tolerating dialysis well. Vital signs are stable. General: No acute distress. HEENT: Head exam is unremarkable. On nasal cannula. LUNGS: No audible rhonchi or wheezes. HEART: Rate and Rhythm are regular. ABDOMEN: Obese, nontender. EXTREMITITES: 2+ edema. Wound VAC noted. Objective - Vital Signs Vital signs: Vital Signs Temp 98.4 F 06/28/24 07:52 Pulse 64 06/28/24 09:46 Resp 18 06/28/24 07:52 BP 156/83 06/28/24 07:52 Pulse Ox 97 06/28/24 07:52 FiO2 21 06/17/24 08:44 Intake & Output 06/27/24 06/28/24 06/28/24 18:59 06:59 18:59 Intake Total 444 708 Output Total 1000 1850 Balance -556 -1850 708 Weight 190.1 kg Intake: Oral 444 708 Output: Urine 1000 1850 Other: Voiding Method Indwelling Catheter Indwelling Catheter - Labs CBC & Chem 7: 06/27/24 04:25 06/28/24 05:00 Labs: Abnormal Lab Results - Last 24 Hours (Table) 06/27/24 06/27/24 06/27/24 Range/Units 10:06 14:53 17:23 Chloride (96-109) mmol/L Anion Gap (4.00-12.00) mmol/L BUN (9.0-27.0) mg/dL Creatinine (0.6-1.5) mg/dL Est GFR (CKD-EPI) (>=60) BUN/Creatinine Ratio (12.00-20.00) Ratio Glucose (70-110) mg/dL POC Glucose (mg/dL) 173 H 212 H (70-110) mg/dL Calcium (8.7-10.3) mg/dL Phosphorus 5.6 H (2.4-5.1) mg/dL 06/27/24 06/28/24 06/28/24 Range/Units 20:12 05:00 06:09 Chloride 95 L (96-109) mmol/L Anion Gap 13.70 H (4.00-12.00) mmol/L BUN 57.0 H (9.0-27.0) mg/dL Creatinine 5.9 H (0.6-1.5) mg/dL Est GFR (CKD-EPI) 11 L (>=60) BUN/Creatinine Ratio 9.66 L (12.00-20.00) Ratio Glucose 151 H (70-110) mg/dL POC Glucose (mg/dL) 222 H 146 H (70-110) mg/dL Calcium 8.2 L (8.7-10.3) mg/dL Phosphorus (2.4-5.1) mg/dL Assessment and Plan Plan: Assessment: 1. Acute kidney injury secondary to ATN secondary to cardiorenal syndrome as well as contrast associated acute kidney injury. Patient received IV contrast on June 07, 2024. Creatinine 1.8 on admission and was over 6 this admission. Kidney ultrasound showed no evidence of hydronephrosis. Started on hemodialysis June 13, 2024 via temporary right IJ catheter. Now has permacath. 2. Chronic kidney disease stage IIIb with baseline creatinine 1.8-2 secondary to diabetic kidney disease. 3. Acute on chronic systolic CHF ejection fraction of 30 to 35%. 4. Diabetes mellitus. 5. Anemia of chronic kidney disease. Iron deficiency noted. Status post IV iron. On Aranesp. 6. Hypervolemic hyponatremia. Stable. 7. Volume overload. Improving with diuresis and ultrafiltration. 8. Chronic kidney disease mineral bone disease. Phosphorus level 5.6 dated June 27, 2024. On PhosLo. Plan: Currently seen while undergoing hemodialysis. Currently maintained on Thursday schedule. Stop IV Lasix. Add torsemide 40 mg once daily. Avoid nephrotoxins. Monitor for renal recovery. Outpatient dialysis being set up by case hardener.
--- NOTE | 2024-06-28 11:50 | P.PN ---
Subjective Progress Note Date: 06/28/24 Subjective: Patient seen and examined at bedside. No acute events overnight. Pertinent positives and negatives as discussed above, a complete review of systems was performed and all other systems are negative. Vitals Signs Reviewed. Gen: In NAD, non-toxic HEENT: normocephalic, atraumatic, hearing acuity is intant, mucous membranes moist CVS: perfusing all extremities, bilateral pitting edema, Respiratory: symmetric chest expansion, no accessory muscle use, GI: soft, NTTP, ND, : no suprapubic tenderness, no CVA tenderness MSK/Derm: no rashes, cyanosis Neuro: CN II-XII intact, no motor weakness, Psych: cooperative, euthymic mood, judgment and insight is intact Assessment and Plan: Active: Right foot abscess status post incision and drainage, status post wound VAC Diabetic foot infection Leukocytosis, resolved -ID following -Wound care following, wound VAC in place -Currently on Unasyn IV, plan for daptomycin and oral Flagyl at the time of discharge CHAVO on CKD stage III, now on dialysis Acute hypoxic respiratory failure, resolved Acute on chronic systolic CHF exacerbation COPD, without exacerbation Iron deficiency anemia and anemia of chronic disease Hyponatremia, resolved -Nephrology following -Patient continued on IV Lasix 60 every 12 hours, monitor electrolytes -Patient on darbepoetin subcu q. 7 days, also status post 1 unit of PRBCs during this admission -CBC tomorrow -No active bleeding -Continue Coreg 6.25 twice daily, will need further guideline directed medical therapy Type 2 diabetes -Levemir 60 units nightly, insulin aspart 10 units 3 times daily, also on sliding scale insulin, monitor for hypoglycemia Acute urinary retention -Hamilton catheter in place -Tamsulosin 0.4 mg daily Chronic: GERD DVT ppx: Subcu heparin Code status: Full code Anticipated discharge place: Pending clinical course Anticipated discharge time: Pending clinical course Objective - Vital Signs Vital signs: Vital Signs Temp 98.4 F 06/28/24 07:52 Pulse 64 06/28/24 09:46 Resp 18 06/28/24 07:52 BP 156/83 06/28/24 07:52 Pulse Ox 97 06/28/24 07:52 FiO2 21 06/17/24 08:44 Intake & Output 06/27/24 06/28/24 06/28/24 18:59 06:59 18:59 Intake Total 444 708 Output Total 1000 1850 Balance -556 -1850 708 Weight 190.1 kg Intake: Oral 444 708 Output: Urine 1000 1850 Other: Voiding Method Indwelling Catheter Indwelling Catheter Indwelling Catheter - Labs CBC & Chem 7: 06/27/24 04:25 06/28/24 05:00 Labs: Abnormal Lab Results - Last 24 Hours (Table) 06/27/24 06/27/24 06/27/24 Range/Units 10:06 14:53 17:23 Chloride (96-109) mmol/L Anion Gap (4.00-12.00) mmol/L BUN (9.0-27.0) mg/dL Creatinine (0.6-1.5) mg/dL Est GFR (CKD-EPI) (>=60) BUN/Creatinine Ratio (12.00-20.00) Ratio Glucose (70-110) mg/dL POC Glucose (mg/dL) 173 H 212 H (70-110) mg/dL Calcium (8.7-10.3) mg/dL Phosphorus 5.6 H (2.4-5.1) mg/dL 06/27/24 06/28/24 06/28/24 Range/Units 20:12 05:00 06:09 Chloride 95 L (96-109) mmol/L Anion Gap 13.70 H (4.00-12.00) mmol/L BUN 57.0 H (9.0-27.0) mg/dL Creatinine 5.9 H (0.6-1.5) mg/dL Est GFR (CKD-EPI) 11 L (>=60) BUN/Creatinine Ratio 9.66 L (12.00-20.00) Ratio Glucose 151 H (70-110) mg/dL POC Glucose (mg/dL) 222 H 146 H (70-110) mg/dL Calcium 8.2 L (8.7-10.3) mg/dL Phosphorus (2.4-5.1) mg/dL
[2024-06-28 12:19] LABS: Glucose,Whole Blood 144 mg/dL (70-110)
[2024-06-28] MEDS: IPRATROPIUM-ALBUTEROL 3 ML NEB INHALATION SCH (16:24)
[2024-06-28 17:34] LABS: Glucose,Whole Blood 172 mg/dL (70-110)
[2024-06-28 20:56] LABS: Glucose,Whole Blood 165 mg/dL (70-110)
[2024-06-29 06:19] LABS: Glucose,Whole Blood 118 mg/dL (70-110)
[2024-06-29 08:52] LABS: ALT 12 U/L (10-49); AST 17 U/L (14-35); Albumin 2.3 g/dL (3.8-4.9); Alkaline Phosphatase 83 U/L (41-126); Blood Urea Nitrogen 38.7 mg/dL (9.0-27.0); Calcium 8.3 mg/dL (8.7-10.3); Carbon Dioxide 29.2 mmol/L (21.6-31.8); Chloride 96 mmol/L (96-109); Globulin 4.6 g/dL (1.6-3.3); Glucose 134 mg/dL (70-110); Potassium 4.9 mmol/L (3.5-5.5); Sodium 135 mmol/L (135-145); Total Bilirubin 0.3 mg/dL (0.3-1.2); Total Protein 6.9 g/dL (6.2-8.2)
[2024-06-29 08:58] LABS: Basophils # (A) 0.04 X 10*3/uL (0.00-0.10); Basophils % (A) 0.6 %; Eosinophils # (A) 0.44 X 10*3/uL (0.04-0.35); Eosinophils % (A) 6.2 %; HCT 26.7 % (39.6-50.0); HGB 7.9 g/dL (13.0-17.0); Lymphocytes # (A) 0.85 X 10*3/uL (0.90-5.00); Lymphocytes % (A) 11.9 %; MCH 27.5 pg (27.0-32.0); MCHC 29.6 g/dL (32.0-37.0); Mean Platelet Volume 9.6 FL (9.5-12.2); Monocytes % (A) 8.4 %; NRBC Per 100 WBC 0 X 10*3/uL (0.00-0.01); Neutrophils # (A) 5.18 X 10*3/uL (1.80-7.70); Neutrophils % (A) 72.5 %; Platelet Count 294 X 10*3/uL (140-440); RBC 2.87 X 10*6/uL (4.40-5.60); RDW 15.2 % (11.5-14.5); WBC 7.14 X 10*3/uL (4.50-10.00)
[2024-06-29] MEDS: TORSEMIDE 20 MG TAB PO SCH (10:10)
--- NOTE | 2024-06-29 10:30 | P.PN ---
Subjective Patient is seen in follow-up for acute kidney injury on chronic kidney disease. Started on hemodialysis June 13, 2024. Nonoliguric. Tolerated 2.5 L ultrafiltration yesterday. Vital signs are stable. General: No acute distress. HEENT: Head exam is unremarkable. On nasal cannula. LUNGS: No audible rhonchi or wheezes. HEART: Rate and Rhythm are regular. ABDOMEN: Obese, nontender. EXTREMITITES: 2+ edema. Chronic changes noted. Objective - Vital Signs Vital signs: Vital Signs Temp 98.5 F 06/29/24 07:25 Pulse 66 06/29/24 09:39 Resp 16 06/29/24 07:25 BP 140/99 06/29/24 07:25 Pulse Ox 96 06/29/24 07:25 FiO2 21 06/17/24 08:44 Intake & Output 06/28/24 06/29/24 06/29/24 18:59 06:59 18:59 Intake Total 2020 118 Output Total 6150 400 Balance -4130 -400 118 Weight 185.7 kg Intake: Oral 1520 118 Hemodialysis 500 Output: Urine 650 400 Hemodialysis 3000 Hemodialysis Net Amount 2500 Other: Voiding Method Indwelling Catheter Urinal # Voids 1 - Labs CBC & Chem 7: 06/29/24 04:33 06/29/24 04:33 Labs: Abnormal Lab Results - Last 24 Hours (Table) 06/28/24 06/28/24 06/28/24 Range/Units 12:17 17:33 20:55 RBC (4.40-5.60) X 10*6/uL Hgb (13.0-17.0) g/dL Hct (39.6-50.0) % MCHC (32.0-37.0) g/dL RDW (11.5-14.5) % Lymphocytes # (0.90-5.00) X 10*3/uL Eosinophils # (0.04-0.35) X 10*3/uL BUN (9.0-27.0) mg/dL Creatinine (0.6-1.5) mg/dL Est GFR (CKD-EPI) (>=60) BUN/Creatinine Ratio (12.00-20.00) Ratio Glucose (70-110) mg/dL POC Glucose (mg/dL) 144 H 172 H 165 H (70-110) mg/dL Calcium (8.7-10.3) mg/dL Albumin (3.8-4.9) g/dL Globulin (1.6-3.3) g/dL Albumin/Globulin Ratio (1.60-3.17) Ratio 06/29/24 06/29/24 06/29/24 Range/Units 04:33 04:33 06:18 RBC 2.87 L (4.40-5.60) X 10*6/uL Hgb 7.9 L (13.0-17.0) g/dL Hct 26.7 L (39.6-50.0) % MCHC 29.6 L (32.0-37.0) g/dL RDW 15.2 H (11.5-14.5) % Lymphocytes # 0.85 L (0.90-5.00) X 10*3/uL Eosinophils # 0.44 H (0.04-0.35) X 10*3/uL BUN 38.7 H (9.0-27.0) mg/dL Creatinine 4.5 H (0.6-1.5) mg/dL Est GFR (CKD-EPI) 15 L (>=60) BUN/Creatinine Ratio 8.60 L (12.00-20.00) Ratio Glucose 134 H (70-110) mg/dL POC Glucose (mg/dL) 118 H (70-110) mg/dL Calcium 8.3 L (8.7-10.3) mg/dL Albumin 2.3 L (3.8-4.9) g/dL Globulin 4.6 H (1.6-3.3) g/dL Albumin/Globulin Ratio 0.50 L (1.60-3.17) Ratio Assessment and Plan Plan: Assessment: 1. Acute kidney injury secondary to ATN secondary to cardiorenal syndrome as well as contrast associated acute kidney injury. Patient received IV contrast on June 07, 2024. Creatinine 1.8 on admission and was over 6 this admission. Kidney ultrasound showed no evidence of hydronephrosis. Started on hemodialysis June 13, 2024 via temporary right IJ catheter. Now has permacath. 2. Chronic kidney disease stage IIIb with baseline creatinine 1.8-2 secondary to diabetic kidney disease. 3. Acute on chronic systolic CHF ejection fraction of 30 to 35%. 4. Diabetes mellitus. 5. Anemia of chronic kidney disease. Iron deficiency noted. Status post IV iron. On Aranesp. 6. Hypervolemic hyponatremia. Stable. 7. Volume overload. Improving with diuresis and ultrafiltration. 8. Chronic kidney disease mineral bone disease. Phosphorus level 5.6 dated June 27, 2024. On PhosLo. Plan: Hemodialysis tomorrow. Maintain torsemide. Avoid nephrotoxins. Monitor for renal recovery. Outpatient dialysis being set up by case briefer. Hamilton catheter removed. Has been voiding on his own.
--- NOTE | 2024-06-29 12:07 | P.PN ---
Subjective Progress Note Date: 06/28/24 Principal diagnosis: Reason for follow-up is right diabetic foot infection Patient is a 54-year-old male with a past medical history significant for COPD diabetes mellitus CT sleep apnea presenting the hospital initially for evaluation of increasing shortness of breath patient also have a right diabetic foot ulcer being treated by the wound care noticed to have worsening diagnosed with an abscess prompting this consultation patient is status post extensive surgical debridement which was sent down to the fascia and tendon. On today's evaluation that is 06/28/2024, Patient is afebrile this morning patient denies having any chest pain shortness of breath or cough, the patient is currently on room air, patient denies any abdominal pain no diarrhea no nausea no vomiting and denies pain to the right foot wound. Patient did have a creatinine of 5.9 no CBC was done today Objective - Vital Signs Vital signs: Vital Signs Temp 98.4 F 06/28/24 07:52 Pulse 72 06/28/24 12:56 Resp 18 06/28/24 07:52 BP 156/83 06/28/24 07:52 Pulse Ox 97 06/28/24 07:52 FiO2 21 06/17/24 08:44 Intake & Output 06/27/24 06/28/24 06/28/24 18:59 06:59 18:59 Intake Total 444 708 Output Total 1000 1850 Balance -556 -1850 708 Weight 190.1 kg Intake: Oral 444 708 Output: Urine 1000 1850 Other: Voiding Method Indwelling Catheter Indwelling Catheter Indwelling Catheter - Exam GENERAL DESCRIPTION: Middle-age male lying in bed in no distress RESPIRATORY SYSTEM: Unlabored breathing , decreased breath sounds at bases HEART: S1 S2 regular rate and rhythm , ABDOMEN: Soft , no tenderness EXTREMITIES: Right foot wound is currently covered with a wound VAC - Labs CBC & Chem 7: 06/29/24 04:33 06/29/24 04:33 Labs: Abnormal Lab Results - Last 24 Hours (Table) 06/27/24 06/27/24 06/27/24 Range/Units 10:06 14:53 17:23 Chloride (96-109) mmol/L Anion Gap (4.00-12.00) mmol/L BUN (9.0-27.0) mg/dL Creatinine (0.6-1.5) mg/dL Est GFR (CKD-EPI) (>=60) BUN/Creatinine Ratio (12.00-20.00) Ratio Glucose (70-110) mg/dL POC Glucose (mg/dL) 173 H 212 H (70-110) mg/dL Calcium (8.7-10.3) mg/dL Phosphorus 5.6 H (2.4-5.1) mg/dL 24 06/28/24 06/28/24 Range/Units 20:12 05:00 06:09 Chloride 95 L (96-109) mmol/L Anion Gap 13.70 H (4.00-12.00) mmol/L BUN 57.0 H (9.0-27.0) mg/dL Creatinine 5.9 H (0.6-1.5) mg/dL Est GFR (CKD-EPI) 11 L (>=60) BUN/Creatinine Ratio 9.66 L (12.00-20.00) Ratio Glucose 151 H (70-110) mg/dL POC Glucose (mg/dL) 222 H 146 H (70-110) mg/dL Calcium 8.2 L (8.7-10.3) mg/dL Phosphorus (2.4-5.1) mg/dL 06/28/24 Range/Units 12:17 Chloride (96-109) mmol/L Anion Gap (4.00-12.00) mmol/L BUN (9.0-27.0) mg/dL Creatinine (0.6-1.5) mg/dL Est GFR (CKD-EPI) (>=60) BUN/Creatinine Ratio (12.00-20.00) Ratio Glucose (70-110) mg/dL POC Glucose (mg/dL) 144 H (70-110) mg/dL Calcium (8.7-10.3) mg/dL Phosphorus (2.4-5.1) mg/dL Assessment and Plan (1) Diabetic foot infection Current Visit: Yes Status: Acute Code(s): E11.628 - TYPE 2 DIABETES MELLITUS WITH OTHER SKIN COMPLICATIONS; L08.9 - LOCAL INFECTION OF THE SKIN AND SUBCUTANEOUS TISSUE, UNSP SNOMED Code(s): 475678058 (2) Foot abscess, right Current Visit: Yes Status: Acute Code(s): L02.611 - CUTANEOUS ABSCESS OF RIGHT FOOT SNOMED Code(s): 64408936318689945 Plan: 1patient with a chronic nonhealing wound on the plantar aspect of the right foot now with evidence of significant foul-smelling drainage and fluctuation concerning for an abscess with the x-ray suggestive of possible gas-forming pathogen we will need to cover for the polymicrobial birdie associated with di abetic foot infection. 2patient with acute on chronic kidney insufficiency and high risk of vancomycin toxicity 3patient is status post surgical debridement of the right foot abscess extending down to the fascia and tendon and deep culture which are currently growing Enterococcus faecalis strep anaerobes 4patient currently being treated Unasyn 3 g every 24 hours dose adjusted to kidney function Dictation was produced using [employer] dictation software. please excuse any grammatical, word or spelling errors. Time with Patient: Less than 30
--- NOTE | 2024-06-29 12:08 | P.PN ---
Subjective Progress Note Date: 06/29/24 Principal diagnosis: Reason for follow-up is right diabetic foot infection Patient is a 54-year-old male with a past medical history significant for COPD diabetes mellitus [place] sleep apnea presenting the hospital initially for evaluation of increasing shortness of breath patient also have a right diabetic foot ulcer being treated by the wound care noticed to have worsening diagnosed with an abscess prompting this consultation patient is status post extensive surgical debridement which was sent down to the fascia and tendon. On today's evaluation that is 06/29/2024,the patient denies any fever or any chills, patient is breathing comfortably on room air, the patient denies chest pain shortness of breath and no significant cough, patient denies abdominal pain, no nausea vomiting or diarrhea. Wound VAC to the right foot has been discontinued patient denies pain to the right foot. Patient white count 7.14, creatinine is 4.5 Objective - Vital Signs Vital signs: Vital Signs Temp 98.5 F 06/29/24 07:25 Pulse 66 06/29/24 09:39 Resp 16 06/29/24 07:25 BP 140/99 06/29/24 07:25 Pulse Ox 96 06/29/24 07:25 FiO2 21 06/17/24 08:44 Intake & Output 06/28/24 06/29/24 06/29/24 18:59 06:59 18:59 Intake Total 2020 118 Output Total 6150 400 Balance -4130 -400 118 Weight 185.7 kg Intake: Oral 1520 118 Hemodialysis 500 Output: Urine 650 400 Hemodialysis 3000 Hemodialysis Net Amount 2500 Other: Voiding Method Indwelling Catheter Urinal # Voids 1 - Exam GENERAL DESCRIPTION: Middle-age male lying in bed in no distress RESPIRATORY SYSTEM: Unlabored breathing , decreased breath sounds at bases HEART: S1 S2 regular rate and rhythm , ABDOMEN: Soft , no tenderness EXTREMITIES: Right foot wound is currently dressed no drainage on the dressing - Labs CBC & Chem 7: 06/29/24 04:33 06/29/24 04:33 Labs: Abnormal Lab Results - Last 24 Hours (Table) 06/28/24 06/28/24 06/28/24 Range/Units 12:17 17:33 20:55 RBC (4.40-5.60) X 10*6/uL Hgb (13.0-17.0) g/dL Hct (39.6-50.0) % MCHC (32.0-37.0) g/dL RDW (11.5-14.5) % Lymphocytes # (0.90-5.00) X 10*3/uL Eosinophils # (0.04-0.35) X 10*3/uL BUN (9.0-27.0) mg/dL Creatinine (0.6-1.5) mg/dL Est GFR (CKD-EPI) (>=60) BUN/Creatinine Ratio (12.00-20.00) Ratio Glucose (70-110) mg/dL POC Glucose (mg/dL) 144 H 172 H 165 H (70-110) mg/dL Calcium (8.7-10.3) mg/dL Albumin (3.8-4.9) g/dL Globulin (1.6-3.3) g/dL Albumin/Globulin Ratio (1.60-3.17) Ratio 06/29/24 06/29/24 06/29/24 Range/Units 04:33 04:33 06:18 RBC 2.87 L (4.40-5.60) X 10*6/uL Hgb 7.9 L (13.0-17.0) g/dL Hct 26.7 L (39.6-50.0) % MCHC 29.6 L (32.0-37.0) g/dL RDW 15.2 H (11.5-14.5) % Lymphocytes # 0.85 L (0.90-5.00) X 10*3/uL Eosinophils # 0.44 H (0.04-0.35) X 10*3/uL BUN 38.7 H (9.0-27.0) mg/dL Creatinine 4.5 H (0.6-1.5) mg/dL Est GFR (CKD-EPI) 15 L (>=60) BUN/Creatinine Ratio 8.60 L (12.00-20.00) Ratio Glucose 134 H (70-110) mg/dL POC Glucose (mg/dL) 118 H (70-110) mg/dL Calcium 8.3 L (8.7-10.3) mg/dL Albumin 2.3 L (3.8-4.9) g/dL Globulin 4.6 H (1.6-3.3) g/dL Albumin/Globulin Ratio 0.50 L (1.60-3.17) Ratio Assessment and Plan (1) Diabetic foot infection Current Visit: Yes Status: Acute Code(s): E11.628 - TYPE 2 DIABETES MELLITUS WITH OTHER SKIN COMPLICATIONS; L08.9 - LOCAL INFECTION OF THE SKIN AND SUBCUTANEOUS TISSUE, UNSP SNOMED Code(s): 074261613 (2) Foot abscess, right Current Visit: Yes Status: Acute Code(s): L02.611 - CUTANEOUS ABSCESS OF RIGHT FOOT SNOMED Code(s): 40057296540831701 Plan: 1patient with a chronic nonhealing wound on the plantar aspect of the right foot now with evidence of significant foul-smelling drainage and fluctuation concerning for an abscess with the x-ray suggestive of possible gas-forming pathogen we will need to cover for the polymicrobial birdie associated with diabetic foot infection. 2patient with acute on chronic kidney insufficiency and high risk of vancomycin toxicity 3patient is status post surgical debridement of the right foot abscess extending down to the fascia and tendon and deep culture which are currently growing Enterococcus faecalis strep anaerobes 4patient to continue Unasyn 3 g every 24 hours dose adjusted to kidney function while inpatient will transition to daptomycin and Flagyl on discharge Dictation was produced using [employer] dictation software. please excuse any grammatical, word or spelling errors. Time with Patient: Less than 30
[2024-06-29 12:15] LABS: Glucose,Whole Blood 138 mg/dL (70-110)
--- NOTE | 2024-06-29 13:37 | P.PN ---
Subjective Progress Note Date: 06/29/24 Subjective: Patient seen and examined at bedside. No acute events overnight. Pertinent positives and negatives as discussed above, a complete review of systems was performed and all other systems are negative. Vitals Signs Reviewed. Gen: In NAD, non-toxic HEENT: normocephalic, atraumatic, hearing acuity is intant, mucous membranes moist CVS: perfusing all extremities, bilateral pitting edema, Respiratory: symmetric chest expansion, no accessory muscle use, GI: soft, NTTP, ND, : no suprapubic tenderness, no CVA tenderness MSK/Derm: no rashes, cyanosis Neuro: CN II-XII intact, no motor weakness, Psych: cooperative, euthymic mood, judgment and insight is intact WBC 7.14, hemoglobin 7.9, creatinine 4.5, glucose range between 1 18-1 65 Assessment and Plan: Active: Right foot abscess status post incision and drainage, status post wound VAC Diabetic foot infection Leukocytosis, resolved -ID following -Wound care following, wound VAC in place -Currently on Unasyn IV, plan for daptomycin and oral Flagyl at the time of discharge CHAVO on CKD stage III, now on dialysis Acute hypoxic respiratory failure, resolved Acute on chronic systolic CHF exacerbation COPD, without exacerbation Iron deficiency anemia and anemia of chronic disease Hyponatremia, resolved -Nephrology following -Patient continued on IV Lasix 60 every 12 hours, monitor electrolytes -Patient on darbepoetin subcu q. 7 days, also status post 1 unit of PRBCs during this admission -CBC tomorrow -No active bleeding -Continue Coreg 6.25 twice daily, will need further guideline directed medical therapy Type 2 diabetes -Levemir 60 units nightly, insulin aspart 10 units 3 times daily, also on sliding scale insulin, monitor for hypoglycemia Acute urinary retention -Hamilton catheter in place -Tamsulosin 0.4 mg daily Chronic: GERD DVT ppx: Subcu heparin Code status: Full code Anticipated discharge place: Pending clinical course Anticipated discharge time: Pending clinical course Objective - Vital Signs Vital signs: Vital Signs Temp 98.5 F 06/29/24 07:25 Pulse 74 06/29/24 12:33 Resp 16 06/29/24 07:25 BP 140/99 06/29/24 07:25 Pulse Ox 96 06/29/24 07:25 FiO2 21 06/17/24 08:44 Intake & Output 06/28/24 06/29/24 06/29/24 18:59 06:59 18:59 Intake Total 2019 118 Output Total 6150 400 Balance -4130 -400 118 Weight 185.7 kg Intake: Oral 1520 118 Hemodialysis 500 Output: Urine 650 400 Hemodialysis 3000 Hemodialysis Net Amount 2500 Other: Voiding Method Indwelling Catheter Urinal # Voids 1 - Labs CBC & Chem 7: 06/29/24 04:33 06/29/24 04:33 Labs: Abnormal Lab Results - Last 24 Hours (Table) 06/28/24 06/28/24 06/29/24 Range/Units 17:33 20:55 04:33 RBC 2.87 L (4.40-5.60) X 10*6/uL Hgb 7.9 L (13.0-17.0) g/dL Hct 26.7 L (39.6-50.0) % MCHC 29.6 L (32.0-37.0) g/dL RDW 15.2 H (11.5-14.5) % Lymphocytes # 0.85 L (0.90-5.00) X 10*3/uL Eosinophils # 0.44 H (0.04-0.35) X 10*3/uL BUN (9.0-27.0) mg/dL Creatinine (0.6-1.5) mg/dL Est GFR (CKD-EPI) (>=60) BUN/Creatinine Ratio (12.00-20.00) Ratio Glucose (70-110) mg/dL POC Glucose (mg/dL) 172 H 165 H (70-110) mg/dL Calcium (8.7-10.3) mg/dL Albumin (3.8-4.9) g/dL Globulin (1.6-3.3) g/dL Albumin/Globulin Ratio (1.60-3.17) Ratio 06/29/24 06/29/24 06/29/24 Range/Units 04:33 06:18 12:13 RBC (4.40-5.60) X 10*6/uL Hgb (13.0-17.0) g/dL Hct (39.6-50.0) % MCHC (32.0-37.0) g/dL RDW (11.5-14.5) % Lymphocytes # (0.90-5.00) X 10*3/uL Eosinophils # (0.04-0.35) X 10*3/uL BUN 38.7 H (9.0-27.0) mg/dL Creatinine 4.5 H (0.6-1.5) mg/dL Est GFR (CKD-EPI) 15 L (>=60) BUN/Creatinine Ratio 8.60 L (12.00-20.00) Ratio Glucose 134 H (70-110) mg/dL POC Glucose (mg/dL) 118 H 138 H (70-110) mg/dL Calcium 8.3 L (8.7-10.3) mg/dL Albumin 2.3 L (3.8-4.9) g/dL Globulin 4.6 H (1.6-3.3) g/dL Albumin/Globulin Ratio 0.50 L (1.60-3.17) Ratio
[2024-06-29 17:30] LABS: Glucose,Whole Blood 124 mg/dL (70-110)
[2024-06-29 20:09] LABS: Glucose,Whole Blood 175 mg/dL (70-110)
[2024-06-30] MEDS: diphenhydrAMINE 25 MG CAP PO STA (00:08)
[2024-06-30 06:03] LABS: Glucose,Whole Blood 82 mg/dL (70-110)
--- NOTE | 2024-06-30 11:08 | P.PN ---
Subjective Patient is seen in follow-up for acute kidney injury on chronic kidney disease. Started on hemodialysis June 13, 2024. Urine output documented as 425 cc. Scheduled for dialysis today. Vital signs are stable. General: No acute distress. HEENT: Head exam is unremarkable. On nasal cannula. LUNGS: No audible rhonchi or wheezes. HEART: Rate and Rhythm are regular. ABDOMEN: Obese, nontender. EXTREMITITES: 2+ edema. Chronic changes noted. Objective - Vital Signs Vital signs: Vital Signs Temp 97.6 F 06/30/24 07:31 Pulse 72 06/30/24 08:38 Resp 17 06/30/24 08:00 BP 155/82 06/30/24 07:31 Pulse Ox 97 06/30/24 07:31 FiO2 21 06/17/24 08:44 Intake & Output 06/29/24 06/30/24 06/30/24 18:59 06:59 18:59 Intake Total 236 540 Output Total 425 300 Balance 236 -425 240 Weight 185.8 kg Intake: Oral 236 540 Output: Urine 425 300 Stool 0 Other: Voiding Method Urinal Urinal - Labs CBC & Chem 7: 06/29/24 04:33 06/29/24 04:33 Labs: Abnormal Lab Results - Last 24 Hours (Table) 06/29/24 06/29/24 06/29/24 Range/Units 12:13 17:29 20:08 POC Glucose (mg/dL) 138 H 124 H 175 H (70-110) mg/dL Assessment and Plan Plan: Assessment: 1. Acute kidney injury secondary to ATN secondary to cardiorenal syndrome as well as contrast associated acute kidney injury. Patient received IV contrast on June 07, 2024. Creatinine 1.8 on admission and was over 6 this admission. Kidney ultrasound showed no evidence of hydronephrosis. Started on hemodialysis June 13, 2024 via temporary right IJ catheter. Now has permacath. 2. Chronic kidney disease stage IIIb with baseline creatinine 1.8-2 secondary to diabetic kidney disease. 3. Acute on chronic systolic CHF ejection fraction of 30 to 35%. 4. Diabetes mellitus. 5. Anemia of chronic kidney disease. Iron deficiency noted. Status post IV iron. On Aranesp. 6. Hypervolemic hyponatremia. S improved with dialysis. 7. Volume overload. Improving with diuresis and ultrafiltration. 8. Chronic kidney disease mineral bone disease. Phosphorus level 5.6 dated June 27, 2024. On PhosLo. Plan: Hemodialysis today. Maintain torsemide. Avoid nephrotoxins. Monitor for renal recovery. Outpatient dialysis being set up by ed case manager.
[2024-06-30 11:54] LABS: Glucose,Whole Blood 118 mg/dL (70-110)
--- NOTE | 2024-06-30 13:02 | P.PN ---
Subjective Progress Note Date: 06/30/24 Subjective: Patient seen and examined at bedside. No acute events overnight. Pertinent positives and negatives as discussed above, a complete review of systems was performed and all other systems are negative. Vitals Signs Reviewed. Gen: In NAD, non-toxic HEENT: normocephalic, atraumatic, hearing acuity is intant, mucous membranes moist CVS: perfusing all extremities, bilateral pitting edema, Respiratory: symmetric chest expansion, no accessory muscle use, GI: soft, NTTP, ND, : no suprapubic tenderness, no CVA tenderness MSK/Derm: no rashes, cyanosis, lower extremity wounds Neuro: CN II-XII intact, no motor weakness, Psych: cooperative, euthymic mood, judgment and insight is intact WBC 7.14, hemoglobin 7.9, creatinine 4.5, glucose range between 1 18-1 65 Assessment and Plan: Active: Right foot abscess status post incision and drainage, status post wound VAC Diabetic foot infection Leukocytosis, resolved -ID following -Wound care following, wound VAC in place -Currently on Unasyn IV, plan for daptomycin and oral Flagyl at the time of discharge CHAVO on CKD stage III, now on dialysis Acute hypoxic respiratory failure, resolved Acute on chronic systolic CHF exacerbation COPD, without exacerbation Iron deficiency anemia and anemia of chronic disease Hyponatremia, resolved -Nephrology note reviewed, torsemide 40 daily, dialysis today -Patient on darbepoetin subcu q. 7 days, also status post 1 unit of PRBCs during this admission -No active bleeding -Continue Coreg 6.25 twice daily, will need further guideline directed medical therapy Type 2 diabetes -Levemir 60 units nightly, insulin aspart 10 units 3 times daily, also on sliding scale insulin, monitor for hypoglycemia Acute urinary retention, resolved -Hamilton catheter now discontinued -Tamsulosin 0.4 mg daily Chronic: GERD DVT ppx: Subcu heparin Code status: Full code Anticipated discharge place: Pending clinical course Anticipated discharge time: Pending clinical course Objective - Vital Signs Vital signs: Vital Signs Temp 97.6 F 06/30/24 07:31 Pulse 74 06/30/24 12:37 Resp 17 06/30/24 08:00 BP 155/82 06/30/24 07:31 Pulse Ox 97 06/30/24 07:31 FiO2 21 06/17/24 08:44 Intake & Output 06/29/24 06/30/24 06/30/24 18:59 06:59 18:59 Intake Total 236 540 Output Total 425 300 Balance 236 -425 240 Weight 185.8 kg Intake: Oral 236 540 Output: Urine 425 300 Stool 0 Other: Voiding Method Urinal Urinal - Labs CBC & Chem 7: 06/29/24 04:33 06/29/24 04:33 Labs: Abnormal Lab Results - Last 24 Hours (Table) 06/29/24 06/29/24 06/30/24 Range/Units 17:29 20:08 11:52 POC Glucose (mg/dL) 124 H 175 H 118 H (70-110) mg/dL
--- NOTE | 2024-06-30 14:02 | P.PN ---
Subjective Progress Note Date: 06/30/24 Principal diagnosis: Reason for follow-up is right diabetic foot infection Patient is a 54-year-old male with a past medical history significant for COPD diabetes mellitus [place] sleep apnea presenting the hospital initially for evaluation of increasing shortness of breath patient also have a right diabetic foot ulcer being treated by the wound care noticed to have worsening diagnosed with an abscess prompting this consultation patient is status post extensive surgical debridement which was sent down to the fascia and tendon. On today's evaluation that is 06/30/2024,the patient remains to be afebrile, patient is on 3 L nasal cannula supplemental oxygen and denies any shortness of breath no chest pain or cough.Patient denies having any nausea or vomiting, no abdominal pain and no diarrhea and denies pain to the right foot wound. No new lab has been obtained today Objective - Vital Signs Vital signs: Vital Signs Temp 97.6 F 06/30/24 07:31 Pulse 74 06/30/24 12:37 Resp 17 06/30/24 08:00 BP 155/82 06/30/24 07:31 Pulse Ox 97 06/30/24 07:31 FiO2 21 06/17/24 08:44 Intake & Output 06/29/24 06/30/24 06/30/24 18:59 06:59 18:59 Intake Total 236 540 Output Total 425 300 Balance 236 -425 240 Weight 185.8 kg Intake: Oral 236 540 Output: Urine 425 300 Stool 0 Other: Voiding Method Urinal Urinal - Exam GENERAL DESCRIPTION: Middle-age male lying in bed in no distress RESPIRATORY SYSTEM: Unlabored breathing , decreased breath sounds at bases HEART: S1 S2 regular rate and rhythm , ABDOMEN: Soft , no tenderness EXTREMITIES: Right foot wound has decreased in depth wound base looks clean no surrounding redness - Labs CBC & Chem 7: 06/29/24 04:33 06/29/24 04:33 Labs: Abnormal Lab Results - Last 24 Hours (Table) 06/29/24 06/29/24 06/30/24 Range/Units 17:29 20:08 11:52 POC Glucose (mg/dL) 124 H 175 H 118 H (70-110) mg/dL Assessment and Plan (1) Diabetic foot infection Current Visit: Yes Status: Acute Code(s): E11.628 - TYPE 2 DIABETES MELLITUS WITH OTHER SKIN COMPLICATIONS; L08.9 - LOCAL INFECTION OF THE SKIN AND SUBCUTANEOUS TISSUE, UNSP SNOMED Code(s): 641007360 (2) Foot abscess, right Current Visit: Yes Status: Acute Code(s): L02.611 - CUTANEOUS ABSCESS OF RIGHT FOOT SNOMED Code(s): 24005853294457432 Plan: 1patient with a chronic nonhealing wound on the plantar aspect of the right magdalene t now with evidence of significant foul-smelling drainage and fluctuation concerning for an abscess with the x-ray suggestive of possible gas-forming pathogen we will need to cover for the polymicrobial birdie associated with diabetic foot infection. 2patient with acute on chronic kidney insufficiency and high risk of vancomycin toxicity 3patient is status post surgical debridement of the right foot abscess extending down to the fascia and tendon and deep culture which are currently growing Enterococcus faecalis strep anaerobes 4patient has received more than 2 weeks of IV antibiotic therapy at the patient right foot wound seem to be doing better we will consider oral Augmentin on discharge Dictation was produced using [employer] dictation software. please excuse any grammatical, word or spelling errors. Time with Patient: Less than 30
[2024-06-30 17:14] LABS: Glucose,Whole Blood 155 mg/dL (70-110)
[2024-06-30 20:43] LABS: Glucose,Whole Blood 126 mg/dL (70-110)
[2024-06-30 22:49] LABS: Glucose,Whole Blood 102 mg/dL (70-110)
[2024-07-01 02:17] LABS: Glucose,Whole Blood 186 mg/dL (70-110)
[2024-07-01 04:58] LABS: Glucose,Whole Blood 130 mg/dL (70-110)
[2024-07-01 05:40] LABS: Glucose,Whole Blood 123 mg/dL (70-110)
[2024-07-01 12:06] LABS: Glucose,Whole Blood 119 mg/dL (70-110)
--- NOTE | 2024-07-01 12:30 | P.PN ---
Subjective Patient is seen in follow-up for acute kidney injury on chronic kidney disease. Started on hemodialysis June 13, 2024. Hamilton catheter has been removed. Has been voiding on his own. Urine output documented as 950 cc in the last 24 hours. Vital signs are stable. General: No acute distress. HEENT: Head exam is unremarkable. On nasal cannula. LUNGS: No audible rhonchi or wheezes. HEART: Rate and Rhythm are regular. ABDOMEN: Obese, nontender. EXTREMITITES: 2+ edema. Chronic changes noted. Objective - Vital Signs Vital signs: Vital Signs Temp 98.4 F 07/01/24 07:07 Pulse 72 07/01/24 11:43 Resp 16 07/01/24 07:07 BP 126/75 07/01/24 07:07 Pulse Ox 97 07/01/24 07:07 FiO2 21 06/17/24 08:44 Intake & Output 06/30/24 07/01/24 07/01/24 18:59 06:59 18:59 Intake Total 540 991 Output Total 500 5850 Balance 40 -4859 Weight 184.4 kg Intake: Oral 540 591 Hemodialysis 400 Output: Urine 500 450 Stool 0 Hemodialysis 2900 Hemodialysis Net Amount 2500 Other: Voiding Method Urinal Urinal - Labs CBC & Chem 7: 06/29/24 04:33 06/29/24 04:33 Labs: Abnormal Lab Results - Last 24 Hours (Table) 06/30/24 06/30/24 07/01/24 Range/Units 17:13 20:42 02:05 POC Glucose (mg/dL) 155 H 126 H 186 H (70-110) mg/dL 07/01/24 07/01/24 07/01/24 Range/Units 04:56 05:39 12:04 POC Glucose (mg/dL) 130 H 123 H 119 H (70-110) mg/dL Assessment and Plan Plan: Assessment: 1. Acute kidney injury secondary to ATN secondary to cardiorenal syndrome as well as contrast associated acute kidney injury. Patient received IV contrast on June 07, 2024. Creatinine 1.8 on admission and was over 6 this admission. Kidney ultrasound showed no evidence of hydronephrosis. Started on hemodialysis June 13, 2024 via temporary right IJ catheter. Now has permacath. 2. Chronic kidney disease stage IIIb with baseline creatinine 1.8-2 secondary to diabetic kidney disease. 3. Acute on chronic systolic CHF ejection fraction of 30 to 35%. 4. Diabetes mellitus. 5. Anemia of chronic kidney disease. Iron deficiency noted. Status post IV iron. On Aranesp. 6. Hypervolemic hyponatremia. S improved with dialysis. 7. Volume overload. Improving with diuresis and ultrafiltration. 8. Chronic kidney disease mineral bone disease. Phosphorus level 5.6 dated June 27, 2024. On PhosLo. Plan: Hemodialysis tomorrow. Currently maintained on Thursday schedule. Maintain torsemide. Avoid nephrotoxins. Monitor for renal recovery. Outpatient dialysis being set up by caseworker.
--- NOTE | 2024-07-01 13:21 | P.PN ---
Subjective Progress Note Date: 07/01/24 Subjective: Patient seen and examined at bedside. No acute events overnight. Pertinent positives and negatives as discussed above, a complete review of systems was performed and all other systems are negative. Vitals Signs Reviewed. Gen: In NAD, non-toxic HEENT: normocephalic, atraumatic, hearing acuity is intant, mucous membranes moist CVS: perfusing all extremities, bilateral pitting edema, Respiratory: symmetric chest expansion, no accessory muscle use, GI: soft, NTTP, ND, : no suprapubic tenderness, no CVA tenderness MSK/Derm: no rashes, cyanosis, lower extremity wounds Neuro: CN II-XII intact, no motor weakness, Psych: cooperative, euthymic mood, judgment and insight is intact Blood sugars range between 1 19-1 86 Assessment and Plan: Active: Right foot abscess status post incision and drainage, status post wound VAC Diabetic foot infection Leukocytosis, resolved -ID following -Currently on Unasyn IV, plan for daptomycin and oral Flagyl at the time of discharge CHAVO on CKD stage III, now on dialysis Acute hypoxic respiratory failure, resolved Acute on chronic systolic CHF exacerbation COPD, without exacerbation Iron deficiency anemia and anemia of chronic disease Hyponatremia, resolved -Nephrology note reviewed, torsemide 40 daily, dialysis tomorrow -Patient on darbepoetin subcu q. 7 days, also status post 1 unit of PRBCs during this admission -No active bleeding -Continue Coreg 6.25 twice daily, will need further guideline directed medical therapy Type 2 diabetes -Levemir 60 units nightly, insulin aspart 10 units 3 times daily, also on sliding scale insulin, monitor for hypoglycemia Acute urinary retention, resolved -Hamilton catheter now discontinued -Tamsulosin 0.4 mg daily Chronic: GERD DVT ppx: Subcu heparin Code status: Full code Anticipated discharge place: Pending clinical course Anticipated discharge time: Pending clinical course Objective - Vital Signs Vital signs: Vital Signs Temp 98.4 F 07/01/24 07:07 Pulse 72 07/01/24 11:43 Resp 16 07/01/24 07:07 BP 126/75 07/01/24 07:07 Pulse Ox 97 07/01/24 07:07 FiO2 21 06/17/24 08:44 Intake & Output 06/30/24 07/01/24 07/01/24 18:59 06:59 18:59 Intake Total 540 991 Output Total 500 5850 Balance 40 -4859 Weight 184.4 kg Intake: Oral 540 591 Hemodialysis 400 Output: Urine 500 450 Stool 0 Hemodialysis 2900 Hemodialysis Net Amount 2500 Other: Voiding Method Urinal Urinal - Labs CBC & Chem 7: 06/29/24 04:33 06/29/24 04:33 Labs: Abnormal Lab Results - Last 24 Hours (Table) 06/30/24 06/30/24 07/01/24 Range/Units 17:13 20:42 02:05 POC Glucose (mg/dL) 155 H 126 H 186 H (70-110) mg/dL 07/01/24 07/01/24 07/01/24 Range/Units 04:56 05:39 12:04 POC Glucose (mg/dL) 130 H 123 H 119 H (70-110) mg/dL
[2024-07-01 17:15] LABS: Glucose,Whole Blood 169 mg/dL (70-110)
[2024-07-01 20:06] LABS: Glucose,Whole Blood 108 mg/dL (70-110)
[2024-07-02 05:41] LABS: Glucose,Whole Blood 132 mg/dL (70-110)
--- NOTE | 2024-07-02 10:46 | P.PN ---
Subjective Patient is seen in follow-up for acute kidney injury on chronic kidney disease. Started on hemodialysis June 13, 2024. Hamilton catheter has been removed. Has been voiding on his own. Urine output documented as 1 L in the last 24 hours. Vital signs are stable. General: No acute distress. HEENT: Head exam is unremarkable. On room air. LUNGS: No audible rhonchi or wheezes. HEART: Rate and Rhythm are regular. ABDOMEN: Obese, nontender. EXTREMITITES: 1+ edema. Chronic changes noted. Objective - Vital Signs Vital signs: Vital Signs Temp 98.5 F 07/02/24 07:31 Pulse 80 07/02/24 08:45 Resp 18 07/02/24 08:00 BP 157/95 07/02/24 07:31 Pulse Ox 95 07/02/24 07:31 FiO2 21 06/17/24 08:44 Intake & Output 07/01/24 07/02/24 07/02/24 18:59 06:59 18:59 Intake Total 591 Output Total 700 350 Balance -700 241 Weight 184.7 kg Intake: Oral 591 Output: Urine 700 350 Stool 0 Other: Voiding Method Urinal Urinal Urinal # Bowel Movements 1 - Labs CBC & Chem 7: 06/29/24 04:33 06/29/24 04:33 Labs: Abnormal Lab Results - Last 24 Hours (Table) 07/01/24 07/01/24 07/02/24 Range/Units 12:04 17:14 05:39 POC Glucose (mg/dL) 119 H 169 H 132 H (70-110) mg/dL Assessment and Plan Plan: Assessment: 1. Acute kidney injury secondary to ATN secondary to cardiorenal syndrome as well as contrast associated acute kidney injury. Patient received IV contrast on June 07, 2024. Creatinine 1.8 on admission and was over 6 this admission. Kidney ultrasound showed no evidence of hydronephrosis. Started on hemodialysis June 13, 2024 via temporary right IJ catheter. Now has permacath. 2. Chronic kidney disease stage IIIb with baseline creatinine 1.8-2 secondary to diabetic kidney disease. 3. Acute on chronic systolic CHF ejection fraction of 30 to 35%. 4. Diabetes mellitus. 5. Anemia of chronic kidney disease. Iron deficiency noted. Status post IV iron. On Aranesp. 6. Hypervolemic hyponatremia. S improved with dialysis. 7. Volume overload. Improving with diuresis and ultrafiltration. 8. Chronic kidney disease mineral bone disease. Phosphorus level 5.6 dated June 27, 2024. On PhosLo. Plan: Hemodialysis today. Currently maintained on Thursday schedule. Maintain torsemide. Avoid nephrotoxins. Monitor for renal recovery outpatient. Check labs and phosphorus level today. Outpatient dialysis being set up by case management assistant.
[2024-07-02 12:16] LABS: Glucose,Whole Blood 168 mg/dL (70-110)
--- NOTE | 2024-07-02 12:37 | P.PN ---
Subjective Progress Note Date: 07/02/24 Subjective: Patient seen and examined at bedside. No acute events overnight. Pertinent positives and negatives as discussed above, a complete review of systems was performed and all other systems are negative. Vitals Signs Reviewed. Gen: In NAD, non-toxic HEENT: normocephalic, atraumatic, hearing acuity is intant, mucous membranes moist CVS: perfusing all extremities, bilateral pitting edema, Respiratory: symmetric chest expansion, no accessory muscle use, GI: soft, NTTP, ND, : no suprapubic tenderness, no CVA tenderness MSK/Derm: no rashes, cyanosis, lower extremity wounds Neuro: CN II-XII intact, no motor weakness, Psych: cooperative, euthymic mood, judgment and insight is intact Blood sugars range between 10 8-1 69 Assessment and Plan: Active: Right foot abscess status post incision and drainage, status post wound VAC Diabetic foot infection Leukocytosis, resolved -ID following -Currently on Unasyn IV, plan for daptomycin and oral Flagyl at the time of discharge CHAVO on CKD stage III, now on dialysis Acute hypoxic respiratory failure, resolved Acute on chronic systolic CHF exacerbation COPD, without exacerbation Iron deficiency anemia and anemia of chronic disease Hyponatremia, resolved -Nephrology note reviewed, torsemide 40 daily, dialysis tomorrow -Patient on darbepoetin subcu q. 7 days, also status post 1 unit of PRBCs during this admission -No active bleeding -Continue Coreg 6.25 twice daily, will need further guideline directed medical therapy Type 2 diabetes -Levemir 60 units nightly, insulin aspart 10 units 3 times daily, also on sliding scale insulin, monitor for hypoglycemia Acute urinary retention, resolved -Hamilton catheter now discontinued -Tamsulosin 0.4 mg daily Chronic: GERD DVT ppx: Subcu heparin Code status: Full code Anticipated discharge place: Pending clinical course Anticipated discharge time: Pending clinical course Objective - Vital Signs Vital signs: Vital Signs Temp 98.5 F 07/02/24 07:31 Pulse 80 07/02/24 12:34 Resp 18 07/02/24 08:00 BP 157/95 07/02/24 07:31 Pulse Ox 95 07/02/24 07:31 FiO2 21 06/17/24 08:44 Intake & Output 07/01/24 07/02/24 07/02/24 18:59 06:59 18:59 Intake Total 591 Output Total 700 350 Balance -700 241 Weight 184.7 kg Intake: Oral 591 Output: Urine 700 350 Stool 0 Other: Voiding Method Urinal Urinal Urinal # Bowel Movements 1 - Labs CBC & Chem 7: 06/29/24 04:33 06/29/24 04:33 Labs: Abnormal Lab Results - Last 24 Hours (Table) 07/01/24 07/02/24 07/02/24 Range/Units 17:14 05:39 12:15 POC Glucose (mg/dL) 169 H 132 H 168 H (70-110) mg/dL
[2024-07-02 12:56] LABS: African American GFR (CKD) 16 (>60 ml/min/1.73 sqM); Anion Gap 3 mmol/L; Blood Urea Nitrogen 46 mg/dL (9-20); Calcium 8.3 mg/dL (8.4-10.2); Carbon Dioxide 34 mmol/L (22-30); Chloride 98 mmol/L (98-107); Glucose 172 mg/dL (74-99); Magnesium 1.5 mg/dL (1.6-2.3); Non-African American GFR(CKD) 14 (>60 ml/min/1.73 sqM); Phosphorus 5.3 mg/dL (2.5-4.5); Sodium 135 mmol/L (137-145)
--- NOTE | 2024-07-02 14:51 | P.PN ---
Subjective Progress Note Date: 07/01/24 Principal diagnosis: Reason for follow-up is right diabetic foot infection Patient is a 54-year-old male with a past medical history significant for COPD diabetes mellitus [place] sleep apnea presenting the hospital initially for evaluation of increasing shortness of breath patient also have a right diabetic foot ulcer being treated by the wound care noticed to have worsening diagnosed with an abscess prompting this consultation patient is status post extensive surgical debridement which was sent down to the fascia and tendon. On today's evaluation that is 07/01/2024, the patient continues to be afebrile, the patient is on room air and breathing comfortably, the Pt denies having any chest pain or cough, the patient denies having any abdominal pain no vomiting or any diarrhea or pain to the right foot. No new labs were drawn today Objective - Vital Signs Vital signs: Vital Signs Temp 98.4 F 07/01/24 07:07 Pulse 72 07/01/24 11:43 Resp 16 07/01/24 07:07 BP 126/75 07/01/24 07:07 Pulse Ox 97 07/01/24 07:07 FiO2 21 06/17/24 08:44 Intake & Output 06/30/24 07/01/24 07/01/24 18:59 06:59 18:59 Intake Total 540 991 Output Total 500 5850 Balance 40 -4859 Weight 184.4 kg Intake: Oral 540 591 Hemodialysis 400 Output: Urine 500 450 Stool 0 Hemodialysis 2900 Hemodialysis Net Amount 2500 Other: Voiding Method Urinal Urinal - Exam GENERAL DESCRIPTION: Middle-age male lying in bed in no distress RESPIRATORY SYSTEM: Unlabored breathing , decreased breath sounds at bases HEART: S1 S2 regular rate and rhythm , ABDOMEN: Soft , no tenderness EXTREMITIES: Right foot wound has decreased in depth wound base looks clean no surrounding redness - Labs CBC & Chem 7: 06/29/24 04:33 07/02/24 12:04 Labs: Abnormal Lab Results - Last 24 Hours (Table) 06/30/24 06/30/24 07/01/24 Range/Units 17:13 20:42 02:05 POC Glucose (mg/dL) 155 H 126 H 186 H (70-110) mg/dL 07/01/24 07/01/24 07/01/24 Range/Units 04:56 05:39 12:04 POC Glucose (mg/dL) 130 H 123 H 119 H (70-110) mg/dL Assessment and Plan (1) Diabetic foot infection Current Visit: Yes Status: Acute Code(s): E11.628 - TYPE 2 DIABETES MELLITUS WITH OTHER SKIN COMPLICATIONS; L08.9 - LOCAL INFECTION OF THE SKIN AND SUBCUTANEOUS TISSUE, UNSP SNOMED Code(s): 081963981 (2) Foot abscess, right Current Visit: Yes Status: Acute Code(s): L02.611 - CUTANEOUS ABSCESS OF RIGHT FOOT SNOMED Code(s): 31228035791148062 Plan: 1patient with a chronic nonhealing wound on the plantar aspect of the right foot now with evidence of significant foul-smelling drainage and fluctuation concerning for an abscess with the x-ray suggestive of possible gas-forming pathogen we will need to cover for the polymicrobial birdie associated with martha betic foot infection. 2patient with acute on chronic kidney insufficiency and high risk of vancomycin toxicity 3patient is status post surgical debridement of the right foot abscess extending down to the fascia and tendon and deep culture which are currently growing Enterococcus faecalis strep anaerobes 4patient will continue with Unasyn while inpatient and monitor clinical course closely Dictation was produced using [employer] dictation software. please excuse any grammatical, word or spelling errors. Time with Patient: Less than 30
--- NOTE | 2024-07-02 14:52 | P.PN ---
Subjective Progress Note Date: 07/02/24 Principal diagnosis: Reason for follow-up is right diabetic foot infection Patient is a 54-year-old male with a past medical history significant for COPD diabetes mellitus [place] sleep apnea presenting the hospital initially for evaluation of increasing shortness of breath patient also have a right diabetic foot ulcer being treated by the wound care noticed to have worsening diagnosed with an abscess prompting this consultation patient is status post extensive surgical debridement which was sent down to the fascia and tendon. On today's evaluation that is 07/02/2024, patient did not have any fever and denies any chills, patient is breathing comfortably on room air, patient with no chest pain or cough patient did not have any abdominal pain nausea vomiting or any loose stools Patient did have a creatinine 4.47 no CBC was done today Objective - Vital Signs Vital signs: Vital Signs Temp 98.5 F 07/02/24 07:31 Pulse 80 07/02/24 12:34 Resp 18 07/02/24 08:00 BP 157/95 07/02/24 07:31 Pulse Ox 95 07/02/24 07:31 FiO2 21 06/17/24 08:44 Intake & Output 07/01/24 07/02/24 07/02/24 18:59 06:59 18:59 Intake Total 591 Output Total 700 350 Balance -700 241 Weight 184.7 kg Intake: Oral 591 Output: Urine 700 350 Stool 0 Other: Voiding Method Urinal Urinal Urinal # Bowel Movements 1 - Exam GENERAL DESCRIPTION: Middle-age male lying in bed in no distress RESPIRATORY SYSTEM: Unlabored breathing , decreased breath sounds at bases HEART: S1 S2 regular rate and rhythm , ABDOMEN: Soft , no tenderness EXTREMITIES: Right foot wound has decreased in depth wound base looks clean no surrounding redness - Labs CBC & Chem 7: 06/29/24 04:33 07/02/24 12:04 Labs: Abnormal Lab Results - Last 24 Hours (Table) 07/01/24 07/02/24 07/02/24 Range/Units 17:14 05:39 12:04 Sodium 135 L (137-145) mmol/L Carbon Dioxide 34 H (22-30) mmol/L BUN 46 H (9-20) mg/dL Creatinine 4.47 H (0.66-1.25) mg/dL Glucose 172 H (74-99) mg/dL POC Glucose (mg/dL) 169 H 132 H (70-110) mg/dL Calcium 8.3 L (8.4-10.2) mg/dL Phosphorus 5.3 H (2.5-4.5) mg/dL Magnesium 1.5 L (1.6-2.3) mg/dL 07/02/24 Range/Units 12:15 Sodium (137-145) mmol/L Carbon Dioxide (22-30) mmol/L BUN (9-20) mg/dL Creatinine (0.66-1.25) mg/dL Glucose (74-99) mg/dL POC Glucose (mg/dL) 168 H (70-110) mg/dL Calcium (8.4-10.2) mg/dL Phosphorus (2.5-4.5) mg/dL Magnesium (1.6-2.3) mg/dL Assessment and Plan (1) Diabetic foot infection Current Visit: Yes Status: Acute Code(s): E11.628 - TYPE 2 DIABETES MELLITUS WITH OTHER SKIN COMPLICATIONS; L08.9 - LOCAL INFECTION OF THE SKIN AND SUBCUTANEOUS TISSUE, UNSP SNOMED Code(s): 632030920 (2) Foot abscess, right Current Visit: Yes Status: Acute Code(s): L02.611 - CUTANEOUS ABSCESS OF RIGHT FOOT SNOMED Code(s): 58594041637496336 Plan: 1patient with a chronic nonhealing wound on the plantar aspect of the right foot now with evidence of significant foul-smelling drainage and fluctuation concerning for an abscess with the x-ray suggestive of possible gas-forming pathogen we will need to cover for the polymicrobial birdie associated with diabetic foot infection. 2patient with acute on chronic kidney insufficiency and high risk of vancomycin toxicity 3patient is status post surgical debridement of the right foot abscess extending down to the fascia and tendon and deep culture which are currently g rowing Enterococcus faecalis strep anaerobes 4patient will be treated with Unasyn while inpatient however no need for IV antibiotics on discharge Dictation was produced using [employer] dictation software. please excuse any grammatical, word or spelling errors. Time with Patient: Less than 30
[2024-07-02 17:25] LABS: Glucose,Whole Blood 166 mg/dL (70-110)
[2024-07-02 20:23] LABS: Glucose,Whole Blood 149 mg/dL (70-110)
[2024-07-03 05:47] LABS: Glucose,Whole Blood 108 mg/dL (70-110)
--- NOTE | 2024-07-03 10:09 | P.PN ---
Subjective Patient is seen in follow-up for acute kidney injury on chronic kidney disease. Started on hemodialysis June 13, 2024. Hamilton catheter has been removed. Has been voiding on his own. Urine output documented as 650 cc in the last 24 hours. Tolerated 2.5 L ultrafiltration yesterday. Vital signs are stable. General: No acute distress. HEENT: Head exam is unremarkable. On room air. LUNGS: No audible rhonchi or wheezes. HEART: Rate and Rhythm are regular. ABDOMEN: Obese, nontender. EXTREMITITES: 1+ edema. Chronic changes noted. Objective - Vital Signs Vital signs: Vital Signs Temp 98.3 F 07/03/24 07:08 Pulse 76 07/03/24 08:22 Resp 18 07/03/24 07:08 BP 170/97 07/03/24 07:08 Pulse Ox 96 07/03/24 07:08 FiO2 21 06/17/24 08:44 Intake & Output 07/02/24 07/03/24 07/03/24 18:59 06:59 18:59 Intake Total 3118 709 118 Output Total 2900 650 Balance 218 59 118 Weight 182 kg Intake: Oral 218 709 118 Hemodialysis 2900 Output: Urine 650 Hemodialysis 400 Hemodialysis Net Amount 2500 Other: Voiding Method Urinal Urinal - Labs CBC & Chem 7: 06/29/24 04:33 07/02/24 12:04 Labs: Abnormal Lab Results - Last 24 Hours (Table) 07/02/24 07/02/24 07/02/24 Range/Units 12:04 12:15 17:24 Sodium 135 L (137-145) mmol/L Carbon Dioxide 34 H (22-30) mmol/L BUN 46 H (9-20) mg/dL Creatinine 4.47 H (0.66-1.25) mg/dL Glucose 172 H (74-99) mg/dL POC Glucose (mg/dL) 168 H 166 H (70-110) mg/dL Calcium 8.3 L (8.4-10.2) mg/dL Phosphorus 5.3 H (2.5-4.5) mg/dL Magnesium 1.5 L (1.6-2.3) mg/dL 07/02/24 Range/Units 20:21 Sodium (137-145) mmol/L Carbon Dioxide (22-30) mmol/L BUN (9-20) mg/dL Creatinine (0.66-1.25) mg/dL Glucose (74-99) mg/dL POC Glucose (mg/dL) 149 H (70-110) mg/dL Calcium (8.4-10.2) mg/dL Phosphorus (2.5-4.5) mg/dL Magnesium (1.6-2.3) mg/dL Assessment and Plan Plan: Assessment: 1. Acute kidney injury secondary to ATN secondary to cardiorenal syndrome as well as contrast associated acute kidney injury. Patient received IV contrast on June 07, 2024. Creatinine 1.8 on admission and was over 6 this admission. Kidney ultrasound showed no evidence of hydronephrosis. Started on hemodialysis June 13, 2024 via temporary right IJ catheter. Now has permacath. 2. Chronic kidney disease stage IIIb with baseline creatinine 1.8-2 secondary to diabetic kidney disease. 3. Acute on chronic systolic CHF ejection fraction of 30 to 35%. 4. Diabetes mellitus. 5. Anemia of chronic kidney disease. Iron deficiency noted. Status post IV iron. On Aranesp. 6. Hypervolemic hyponatremia. S improved with dialysis. 7. Volume overload. Improving with diuresis and ultrafiltration. 8. Chronic kidney disease mineral bone disease. Phosphorus level 5.3 dated July 02, 2024. On PhosLo. Plan: Hemodialysis today. Currently maintained on Thursday schedule. Maintain torsemide. Avoid nephrotoxins. Monitor for renal recovery outpatient. Add oral magnesium oxide. Outpatient dialysis being set up by case preparer and liner.
[2024-07-03] MEDS: MAGNESIUM OXIDE 400 MG TAB PO SCH (12:00)
--- NOTE | 2024-07-03 12:02 | P.PN ---
Subjective Progress Note Date: 07/03/24 Subjective: Patient seen and examined at bedside. No acute events overnight. Pertinent positives and negatives as discussed above, a complete review of systems was performed and all other systems are negative. Vitals Signs Reviewed. Gen: In NAD, non-toxic HEENT: normocephalic, atraumatic, hearing acuity is intant, mucous membranes moist CVS: perfusing all extremities, bilateral pitting edema, Respiratory: symmetric chest expansion, no accessory muscle use, GI: soft, NTTP, ND, : no suprapubic tenderness, no CVA tenderness MSK/Derm: no rashes, cyanosis, lower extremity wounds Neuro: CN II-XII intact, no motor weakness, Psych: cooperative, euthymic mood, judgment and insight is intact Blood sugars range between 10 8-1 68 Assessment and Plan: Active: Right foot abscess status post incision and drainage, status post wound VAC Diabetic foot infection Leukocytosis, resolved -ID following -Currently on Unasyn IV, plan for daptomycin and oral Flagyl at the time of discharge CHAVO on CKD stage III, now on dialysis Acute hypoxic respiratory failure, resolved Acute on chronic systolic CHF exacerbation COPD, without exacerbation Iron deficiency anemia and anemia of chronic disease Hyponatremia, resolved -Nephrology note reviewed, torsemide 40 daily, dialysis Thursday and Thursday, also started on oral magnesium oxide -Patient on darbepoetin subcu q. 7 days, also status post 1 unit of PRBCs during this admission -No active bleeding -Continue Coreg 6.25 twice daily, will need further guideline directed medical therapy Type 2 diabetes -Levemir 60 units nightly, insulin aspart 10 units 3 times daily, also on sliding scale insulin, monitor for hypoglycemia Acute urinary retention, resolved -Hamilton catheter now discontinued -Tamsulosin 0.4 mg daily Chronic: GERD DVT ppx: Subcu heparin Code status: Full code Anticipated discharge place: Pending clinical course Anticipated discharge time: Pending clinical course Objective - Vital Signs Vital signs: Vital Signs Temp 98.3 F 07/03/24 07:08 Pulse 73 07/03/24 10:40 Resp 18 07/03/24 08:00 BP 123/79 07/03/24 10:40 Pulse Ox 96 07/03/24 07:08 FiO2 21 06/17/24 08:44 Intake & Output 07/02/24 07/03/2424 18:59 06:59 18:59 Intake Total 3118 709 118 Output Total 2900 650 Balance 218 59 118 Weight 182 kg Intake: Oral 218 709 118 Hemodialysis 2900 Output: Urine 650 Hemodialysis 400 Hemodialysis Net Amount 2500 Other: Voiding Method Urinal Urinal Urinal - Labs CBC & Chem 7: 06/29/24 04:33 07/02/24 12:04 Labs: Abnormal Lab Results - Last 24 Hours (Table) 07/02/24 07/02/24 07/02/24 Range/Units 12:04 12:15 17:24 Sodium 135 L (137-145) mmol/L Carbon Dioxide 34 H (22-30) mmol/L BUN 46 H (9-20) mg/dL Creatinine 4.47 H (0.66-1.25) mg/dL Glucose 172 H (74-99) mg/dL POC Glucose (mg/dL) 168 H 166 H (70-110) mg/dL Calcium 8.3 L (8.4-10.2) mg/dL Phosphorus 5.3 H (2.5-4.5) mg/dL Magnesium 1.5 L (1.6-2.3) mg/dL 07/02/24 Range/Units 20:21 Sodium (137-145) mmol/L Carbon Dioxide (22-30) mmol/L BUN (9-20) mg/dL Creatinine (0.66-1.25) mg/dL Glucose (74-99) mg/dL POC Glucose (mg/dL) 149 H (70-110) mg/dL Calcium (8.4-10.2) mg/dL Phosphorus (2.5-4.5) mg/dL Magnesium (1.6-2.3) mg/dL
[2024-07-03 12:10] LABS: Glucose,Whole Blood 157 mg/dL (70-110)
[2024-07-03 17:16] LABS: Glucose,Whole Blood 101 mg/dL (70-110)
[2024-07-03 20:36] LABS: Glucose,Whole Blood 164 mg/dL (70-110)
[2024-07-04 05:52] LABS: Glucose,Whole Blood 92 mg/dL (70-110)
[2024-07-04 09:04] LABS: BUN/Creat Ratio 8.04 Ratio (12.00-20.00); Calcium 8.6 mg/dL (8.7-10.3); Carbon Dioxide 29.9 mmol/L (21.6-31.8); Chloride 98 mmol/L (96-109); Glucose 101 mg/dL (70-110); Magnesium 1.7 mg/dL (1.5-2.4); Potassium 4.8 mmol/L (3.5-5.5); Sodium 137 mmol/L (135-145)
--- NOTE | 2024-07-04 10:40 | P.PN ---
Subjective Patient is seen in follow-up for acute kidney injury on chronic kidney disease. Started on hemodialysis June 13, 2024. Hamilton catheter has been removed. Has been voiding on his own. Urine output not being measured accurately. Vital signs are stable. General: No acute distress. HEENT: Head exam is unremarkable. On room air. LUNGS: No audible rhonchi or wheezes. HEART: Rate and Rhythm are regular. ABDOMEN: Obese, nontender. EXTREMITITES: 1+ edema. Chronic changes noted. Objective - Vital Signs Vital signs: Vital Signs Temp 98.1 F 07/04/24 07:22 Pulse 78 07/04/24 08:28 Resp 16 07/04/24 07:22 BP 175/87 07/04/24 07:22 Pulse Ox 97 07/04/24 07:22 FiO2 21 06/17/24 08:44 Intake & Output 07/03/24 07/04/24 07/04/24 18:59 06:59 18:59 Intake Total 236 200 Output Total 800 1200 Balance -564 -1000 Weight 349.4 kg 182 kg Intake: Oral 236 200 Output: Urine 800 1200 Other: Voiding Method Urinal Urinal Urinal # Voids 1 # Bowel Movements 1 - Labs CBC & Chem 7: 06/29/24 04:33 07/04/24 04:28 Labs: Abnormal Lab Results - Last 24 Hours (Table) 07/03/24 07/03/24 07/04/24 Range/Units 12:09 20:35 04:28 BUN 37.0 H (9.0-27.0) mg/dL Creatinine 4.6 H (0.6-1.5) mg/dL Est GFR (CKD-EPI) 14 L (>=60) BUN/Creatinine Ratio 8.04 L (12.00-20.00) Ratio POC Glucose (mg/dL) 157 H 164 H (70-110) mg/dL Calcium 8.6 L (8.7-10.3) mg/dL Assessment and Plan Plan: Assessment: 1. Acute kidney injury secondary to ATN secondary to cardiorenal syndrome as well as contrast associated acute kidney injury. Patient received IV contrast on June 07, 2024. Creatinine 1.8 on admission and was over 6 this admission. Kidney ultrasound showed no evidence of hydronephrosis. Started on hemodialysis June 13, 2024 via temporary right IJ catheter. Now has permacath. Creatinine 4.6 today. 2. Chronic kidney disease stage IIIb with baseline creatinine 1.8-2 secondary to diabetic kidney disease. 3. Acute on chronic systolic CHF ejection fraction of 30 to 35%. 4. Diabetes mellitus. 5. Anemia of chronic kidney disease. Iron deficiency noted. Status post IV iron. On Aranesp. 6. Hypervolemic hyponatremia. Improved with dialysis. 7. Volume overload. Improving with diuresis and ultrafiltration. 8. Chronic kidney disease mineral bone disease. Phosphorus level 5.3 dated July 02, 2024. On PhosLo. Plan: Hemodialysis tomorrow. Currently maintained on Thursday schedule. Maintain torsemide. Avoid nephrotoxins. Monitor for renal recovery outpatient. Maintain Mag-Ox. Outpatient dialysis being set up by case consultant. Awaits placement.
[2024-07-04 12:07] LABS: Glucose,Whole Blood 107 mg/dL (70-110)
[2024-07-04 12:22] VITALS: BMI 57.5
--- NOTE | 2024-07-04 12:22 | P.PN ---
Subjective Progress Note Date: 07/04/24 Subjective: Patient seen and examined at bedside. No acute events overnight. Pertinent positives and negatives as discussed above, a complete review of systems was performed and all other systems are negative. Vitals Signs Reviewed. Gen: In NAD, non-toxic HEENT: normocephalic, atraumatic, hearing acuity is intant, mucous membranes moist CVS: perfusing all extremities, bilateral pitting edema, Respiratory: symmetric chest expansion, no accessory muscle use, GI: soft, NTTP, ND, : no suprapubic tenderness, no CVA tenderness MSK/Derm: no rashes, cyanosis, lower extremity wounds covered in dressing Neuro: CN II-XII intact, no motor weakness, Psych: cooperative, euthymic mood, judgment and insight is intact Blood sugars range between 92-1 64, creatinine 4.6, magnesium 1.7 Assessment and Plan: Active: Right foot abscess status post incision and drainage, status post wound VAC Diabetic foot infection Leukocytosis, resolved -ID following -Currently on Unasyn IV, plan for daptomycin and oral Flagyl at the time of discharge CHAVO on CKD stage III, now on dialysis Acute hypoxic respiratory failure, resolved Acute on chronic systolic CHF exacerbation COPD, without exacerbation Iron deficiency anemia and anemia of chronic disease Hyponatremia, resolved -Nephrology note reviewed, torsemide 40 daily, dialysis Thursday and Thursday, on oral magnesium oxide -Patient on darbepoetin subcu q. 7 days, also status post 1 unit of PRBCs during this admission -No active bleeding -Continue Coreg 6.25 twice daily, will need further guideline directed medical therapy Type 2 diabetes -Levemir 60 units nightly, insulin aspart 10 units 3 times daily, also on sliding scale insulin, monitor for hypoglycemia Acute urinary retention, resolved -Hamilton catheter now discontinued -Tamsulosin 0.4 mg daily Chronic: GERD DVT ppx: Subcu heparin Code status: Full code Anticipated discharge place: Pending clinical course Anticipated discharge time: Pending clinical course Objective - Vital Signs Vital signs: Vital Signs Temp 98.1 F 07/04/24 07:22 Pulse 78 07/04/24 12:19 Resp 16 07/04/24 07:22 BP 175/87 07/04/24 07:22 Pulse Ox 97 07/04/24 07:22 FiO2 21 06/17/24 08:44 Intake & Output 07/03/24 07/04/24 07/04/24 18:59 06:59 18:59 Intake Total 236 200 118 Output Total 800 1200 Balance -564 -1000 118 Weight 349.4 kg 182 kg Intake: Oral 236 200 118 Output: Urine 800 1200 Other: Voiding Method Urinal Urinal Urinal # Voids 1 # Bowel Movements 1 - Labs CBC & Chem 7: 06/29/24 04:33 07/04/24 04:28 Labs: Abnormal Lab Results - Last 24 Hours (Table) 07/03/24 07/04/24 Range/Units 20:35 04:28 BUN 37.0 H (9.0-27.0) mg/dL Creatinine 4.6 H (0.6-1.5) mg/dL Est GFR (CKD-EPI) 14 L (>=60) BUN/Creatinine Ratio 8.04 L (12.00-20.00) Ratio POC Glucose (mg/dL) 164 H (70-110) mg/dL Calcium 8.6 L (8.7-10.3) mg/dL
[2024-07-04 17:08] LABS: Glucose,Whole Blood 175 mg/dL (70-110)
[2024-07-04 20:34] LABS: Glucose,Whole Blood 241 mg/dL (70-110)
--- NOTE | 2024-07-04 22:43 | P.PN ---
Subjective Progress Note Date: 07/03/24 Principal diagnosis: Reason for follow-up is right diabetic foot infection Patient is a 54-year-old male with a past medical history significant for COPD diabetes mellitus [place] sleep apnea presenting the hospital initially for evaluation of increasing shortness of breath patient also have a right diabetic foot ulcer being treated by the wound care noticed to have worsening diagnosed with an abscess prompting this consultation patient is status post extensive surgical debridement which was sent down to the fascia and tendon. On today's evaluation that is 07/03/2024, Patient is afebrile patient is currently on room air and denies having any shortness of breath, the patient denies any chest pain or cough, the patient denies any nausea vomiting did not have any abdominal pain and no diarrhea denies pain to the right foot wound. Patient did not have any lab draw today Objective - Vital Signs Vital signs: Vital Signs Temp 98.4 F 07/03/24 14:45 Pulse 80 07/03/24 20:29 Resp 18 07/03/24 14:45 BP 151/72 07/03/24 14:45 Pulse Ox 96 07/03/24 14:45 FiO2 21 06/17/24 08:44 Intake & Output 07/03/24 07/03/24 07/04/24 06:59 18:59 06:59 Intake Total 709 236 Output Total 650 800 Balance 59 -564 Weight 182 kg Intake: Oral 709 236 Output: Urine 650 800 Other: Voiding Method Urinal Urinal - Exam GENERAL DESCRIPTION: Middle-age male lying in bed in no distress RESPIRATORY SYSTEM: Unlabored breathing , decreased breath sounds at bases HEART: S1 S2 regular rate and rhythm , ABDOMEN: Soft , no tenderness EXTREMITIES: Right foot wound has decreased in depth wound base looks clean no surrounding redness - Labs CBC & Chem 7: 06/29/24 04:33 07/04/24 04:28 Labs: Abnormal Lab Results - Last 24 Hours (Table) 07/03/24 07/03/24 Range/Units 12:09 20:35 POC Glucose (mg/dL) 157 H 164 H (70-110) mg/dL Assessment and Plan (1) Diabetic foot infection Current Visit: Yes Status: Acute Code(s): E11.628 - TYPE 2 DIABETES MELLITUS WITH OTHER SKIN COMPLICATIONS; L08.9 - LOCAL INFECTION OF THE SKIN AND VITALE BCUTANEOUS TISSUE, UNSP SNOMED Code(s): 106156472 (2) Foot abscess, right Current Visit: Yes Status: Acute Code(s): L02.611 - CUTANEOUS ABSCESS OF RIGHT FOOT SNOMED Code(s): 07344790468308664 Plan: 1patient with a chronic nonhealing wound on the plantar aspect of the right foot now with evidence of significant foul-smelling drainage and fluctuation concerning for an abscess with the x-ray suggestive of possible gas-forming pathogen we will need to cover for the polymicrobial birdie associated with diabetic foot infection. 2patient is status post surgical debridement of the right foot abscess extending down to the fascia and tendon and deep culture which are currently growing Enterococcus faecalis strep anaerobes 3patient will be treated with Unasyn while inpatient however no need for IV antibiotics on discharge plan is for oral antibiotics on discharge Dictation was produced using [employer] dictation software. please excuse any grammatical, word or spelling errors. Time with Patient: Less than 30
--- NOTE | 2024-07-04 22:43 | P.PN ---
Subjective Progress Note Date: 07/04/24 Principal diagnosis: Reason for follow-up is right diabetic foot infection Patient is a 54-year-old male with a past medical history significant for COPD diabetes mellitus [place] sleep apnea presenting the hospital initially for evaluation of increasing shortness of breath patient also have a right diabetic foot ulcer being treated by the wound care noticed to have worsening diagnosed with an abscess prompting this consultation patient is status post extensive surgical debridement which was sent down to the fascia and tendon. On today's evaluation that is 07/04/2024, the patient continues to be afebrile patient is breathing comfortably on room air no need for supplemental oxygen patient denies any chest pain shortness of breath or cough no nausea vomiting no abdominal pain or diarrhea. Patient did have a creatinine 4.6 no CBC was done today Objective - Vital Signs Vital signs: Vital Signs Temp 98.1 F 07/04/24 18:53 Pulse 78 07/04/24 20:23 Resp 20 07/04/24 18:53 BP 175/78 07/04/24 18:53 Pulse Ox 95 07/04/24 18:53 FiO2 21 06/17/24 08:44 Intake & Output 07/04/24 07/04/24 07/05/24 06:59 18:59 06:59 Intake Total 200 118 236 Output Total 1200 1050 800 Balance -1000 -932 -564 Weight 349.4 kg 182 kg Intake: Oral 200 118 236 Output: Urine 1200 1050 800 Other: Voiding Method Urinal Urinal Urinal # Voids 1 # Bowel Movements 1 - Exam GENERAL DESCRIPTION: Middle-age male lying in bed in no distress RESPIRATORY SYSTEM: Unlabored breathing , decreased breath sounds at bases HEART: S1 S2 regular rate and rhythm , ABDOMEN: Soft , no tenderness EXTREMITIES: Right foot wound has decreased in depth wound base looks clean no surrounding redness - Labs CBC & Chem 7: 06/29/24 04:33 07/04/24 04:28 Labs: Abnormal Lab Results - Last 24 Hours (Table) 07/04/24 07/04/24 07/04/24 Range/Units 04:28 17:06 20:32 BUN 37.0 H (9.0-27.0) mg/dL Creatinine 4.6 H (0.6-1.5) mg/dL Est GFR (CKD-EPI) 14 L (>=60) BUN/Creatinine Ratio 8.04 L (12.00-20.00) Ratio POC Glucose (mg/dL) 175 H 241 H (70-110) mg/dL Calcium 8.6 L (8.7-10.3) mg/dL Assessment and Plan (1) Diabetic foot infection Current Visit: Yes Status: Acute Code(s): E11.628 - TYPE 2 DIABETES MELLITUS WITH OTHER SKIN COMPLICATIONS; L08.9 - LOCAL INFECTION OF THE SKIN AND SUBCUTANEOUS TISSUE, UNSP SNOMED Code(s): 571538877 (2) Foot abscess, right Current Visit: Yes Status: Acute Code(s): L02.611 - CUTANEOUS ABSCESS OF RIGHT FOOT SNOMED Code(s): 49412692838856325 Plan: 1patient with a chronic nonhealing wound on the plantar aspect of the right foot now with evidence of significant foul-smelling drainage and fluctuation concerning for an abscess with the x-ray suggestive of possible gas-forming pathogen we will need to cover for the polymicrobial birdie associated with diabetic foot infection. 2patient is status post surgical debridement of the right foot abscess extending down to the fascia and tendon and deep culture which are currently growing Enterococcus faecalis strep anaerobes 3patient will be treated with Unasyn while inpatient however no need for IV antibiotics on discharge as the patient has received extensive IV antibiotic during hospital stay we will consider oral Augmentin on discharge Dictation was produced using [employer] dictation software. please excuse any grammatical, word or spelling errors. Time with Patient: Less than 30
[2024-07-05 05:12] LABS: African American GFR (CKD) 15 (>60 ml/min/1.73 sqM); Anion Gap 5 mmol/L; Blood Urea Nitrogen 50 mg/dL (9-20); Calcium 8.9 mg/dL (8.4-10.2); Carbon Dioxide 29 mmol/L (22-30); Chloride 102 mmol/L (98-107); Glucose 113 mg/dL (74-99); Non-African American GFR(CKD) 13 (>60 ml/min/1.73 sqM); Potassium 4.6 mmol/L (3.5-5.1); Sodium 136 mmol/L (137-145)
[2024-07-05 05:57] LABS: Glucose,Whole Blood 95 mg/dL (70-110)
--- NOTE | 2024-07-05 11:00 | P.PN ---
Subjective Patient is seen in follow-up for acute kidney injury on chronic kidney disease. Started on hemodialysis June 13, 2024. Hamilton catheter has been removed. Has been voiding on his own. Urine output documented as 2.6 L in the last 24 hours. Creatinine 4.74 today. Vital signs are stable. General: No acute distress. HEENT: Head exam is unremarkable. On room air. LUNGS: No audible rhonchi or wheezes. HEART: Rate and Rhythm are regular. ABDOMEN: Obese, nontender. EXTREMITITES: 1+ edema. Chronic changes noted. Objective - Vital Signs Vital signs: Vital Signs Temp 98.0 F 07/05/24 08:00 Pulse 76 07/05/24 09:58 Resp 16 07/05/24 08:00 BP 177/94 07/05/24 08:00 Pulse Ox 98 07/05/24 08:00 FiO2 21 06/17/24 08:44 Intake & Output 07/04/24 07/05/24 07/05/24 18:59 06:59 18:59 Intake Total 118 827 Output Total 1050 1550 Balance -932 -723 Weight 182 kg 177.7 kg Intake: Oral 118 827 Output: Urine 1050 1550 Other: Voiding Method Urinal Urinal Urinal # Voids 1 # Bowel Movements 1 - Labs CBC & Chem 7: 06/29/24 04:33 07/05/24 04:12 Labs: Abnormal Lab Results - Last 24 Hours (Table) 07/04/24 07/04/24 07/05/24 Range/Units 17:06 20:32 04:12 Sodium 136 L (137-145) mmol/L BUN 50 H (9-20) mg/dL Creatinine 4.74 H (0.66-1.25) mg/dL Glucose 113 H (74-99) mg/dL POC Glucose (mg/dL) 175 H 241 H (70-110) mg/dL Assessment and Plan Plan: Assessment: 1. Acute kidney injury secondary to ATN secondary to cardiorenal syndrome as well as contrast associated acute kidney injury. Patient received IV contrast on June 07, 2024. Creatinine 1.8 on admission and was over 6 this admission. Kidney ultrasound showed no evidence of hydronephrosis. Started on hemodialysis June 13, 2024 via temporary right IJ catheter. Now has permac ath. Creatinine 4.74 today. 2. Chronic kidney disease stage IIIb with baseline creatinine 1.8-2 secondary to diabetic kidney disease. 3. Acute on chronic systolic CHF ejection fraction of 30 to 35%. 4. Diabetes mellitus. 5. Anemia of chronic kidney disease. Iron deficiency noted. Status post IV iron. On Aranesp. 6. Hypervolemic hyponatremia. Improved with dialysis. 7. Volume overload. Improving with diuresis and ultrafiltration. 8. Chronic kidney disease mineral bone disease. Phosphorus level 5.3 dated July 02, 2024. On PhosLo. Plan: Currently seen while undergoing hemodialysis. Currently maintained on Thursday schedule. Maintain torsemide. Avoid nephrotoxins. Monitor for renal recovery outpatient. Urine output has improved. Maintain Mag-Ox. Outpatient dialysis being set up by trimming caser. Awaits placement.
[2024-07-05 11:51] LABS: Glucose,Whole Blood 119 mg/dL (70-110)
--- NOTE | 2024-07-05 12:13 | P.PN ---
Subjective Progress Note Date: 07/05/24 Subjective: Patient seen and examined at bedside. No acute events overnight. Pertinent positives and negatives as discussed above, a complete review of systems was performed and all other systems are negative. Vitals Signs Reviewed. Gen: In NAD, non-toxic HEENT: normocephalic, atraumatic, hearing acuity is intant, mucous membranes moist CVS: perfusing all extremities, bilateral pitting edema, Respiratory: symmetric chest expansion, no accessory muscle use, GI: soft, NTTP, ND, : no suprapubic tenderness, no CVA tenderness MSK/Derm: no rashes, cyanosis, lower extremity wounds covered in dressing Neuro: CN II-XII intact, no motor weakness, Psych: cooperative, euthymic mood, judgment and insight is intact sodium 136, creatinine 4.74, glucose range between 95-2 41 Assessment and Plan: Active: Right foot abscess status post incision and drainage, status post wound VAC Diabetic foot infection Leukocytosis, resolved -ID following -Currently on Unasyn IV, plan for daptomycin and oral Flagyl at the time of discharge CHAVO on CKD stage III, now on dialysis Acute hypoxic respiratory failure, resolved Acute on chronic systolic CHF exacerbation COPD, without exacerbation Iron deficiency anemia and anemia of chronic disease Hyponatremia, resolved Hypertension -Discussed with nephrology, torsemide 40 daily, dialysis Thursday and Thursday, on oral magnesium oxide -Patient on darbepoetin subcu q. 7 days, also status post 1 unit of PRBCs during this admission -No active bleeding -Continue Coreg 6.25 twice daily, will need further guideline directed medical therapy Type 2 diabetes -Levemir 60 units nightly, insulin aspart 10 units 3 times daily, also on sliding scale insulin, monitor for hypoglycemia Acute urinary retention, resolved -Hamilton catheter now discontinued -Tamsulosin 0.4 mg daily Chronic: GERD DVT ppx: Subcu heparin Code status: Full code Anticipated discharge place: Pending clinical course Anticipated discharge time: Pending clinical course Objective - Vital Signs Vital signs: Vital Signs Temp 98.0 F 07/05/24 08:00 Pulse 76 07/05/24 09:58 Resp 16 07/05/24 08:00 BP 177/94 07/05/24 08:00 Pulse Ox 98 07/05/24 08:00 FiO2 21 06/17/24 08:44 Intake & Output 07/04/24 07/05/24 07/05/24 18:59 06:59 18:59 Intake Total 118 827 Output Total 1050 1550 Balance -932 -723 Weight 182 kg 177.7 kg Intake: Oral 118 827 Output: Urine 1050 1550 Other: Voiding Method Urinal Urinal Urinal # Voids 1 # Bowel Movements 1 - Labs CBC & Chem 7: 06/29/24 04:33 07/05/24 04:12 Labs: Abnormal Lab Results - Last 24 Hours (Table) 07/04/24 07/04/24 07/05/24 Range/Units 17:06 20:32 04:12 Sodium 136 L (137-145) mmol/L BUN 50 H (9-20) mg/dL Creatinine 4.74 H (0.66-1.25) mg/dL Glucose 113 H (74-99) mg/dL POC Glucose (mg/dL) 175 H 241 H (70-110) mg/dL 07/05/24 Range/Units 11:49 Sodium (137-145) mmol/L BUN (9-20) mg/dL Creatinine (0.66-1.25) mg/dL Glucose (74-99) mg/dL POC Glucose (mg/dL) 119 H (70-110) mg/dL
--- NOTE | 2024-07-05 16:03 | P.PN ---
Subjective Progress Note Date: 07/05/24 Principal diagnosis: Reason for follow-up is right diabetic foot infection Patient is a 54-year-old male with a past medical history significant for COPD diabetes mellitus [place] sleep apnea presenting the hospital initially for evaluation of increasing shortness of breath patient also have a right diabetic foot ulcer being treated by the wound care noticed to have worsening diagnosed with an abscess prompting this consultation patient is status post extensive surgical debridement which was sent down to the fascia and tendon. On today's evaluation that is 07/05/2024, Patient is afebrile this morning patient denies having any chest pain shortness of breath or cough, the patient is currently on room air, patient denies any abdominal pain no diarrhea no nausea no vomiting, no pain to the right foot has been complaining of some itching and rash to the back. Patient did have a creatinine 4.74 Objective - Vital Signs Vital signs: Vital Signs Temp 98.0 F 07/05/24 08:00 Pulse 76 07/05/24 09:58 Resp 16 07/05/24 08:00 BP 177/94 07/05/24 08:00 Pulse Ox 98 07/05/24 08:00 FiO2 21 06/17/24 08:44 Intake & Output 07/04/24 07/05/24 07/05/24 18:59 06:59 18:59 Intake Total 118 827 Output Total 1050 1550 Balance -932 -723 Weight 182 kg 177.7 kg Intake: Oral 118 827 Output: Urine 1050 1550 Other: Voiding Method Urinal Urinal Urinal # Voids 1 # Bowel Movements 1 - Exam GENERAL DESCRIPTION: Middle-age male lying in bed in no distress RESPIRATORY SYSTEM: Unlabored breathing , decreased breath sounds at bases HEART: S1 S2 regular rate and rhythm , ABDOMEN: Soft , no tenderness EXTREMITIES: Right foot wound has decreased in depth wound base looks clean no surrounding redness - Labs CBC & Chem 7: 06/29/24 04:33 07/05/24 04:12 Labs: Abnormal Lab Results - Last 24 Hours (Table) 07/04/24 07/04/24 07/05/24 Range/Units 17:06 20:32 04:12 Sodium 136 L (137-145) mmol/L BUN 50 H (9-20) mg/dL Creatinine 4.74 H (0.66-1.25) mg/dL Glucose 113 H (74-99) mg/dL POC Glucose (mg/dL) 175 H 241 H (70-110) mg/dL 07/05/24 Range/Units 11:49 Sodium (137-145) mmol/L BUN (9-20) mg/dL Creatinine (0.66-1.25) mg/dL Glucose (74-99) mg/dL POC Glucose (mg/dL) 119 H (70-110) mg/dL Assessment and Plan (1) Diabetic foot infection Current Visit: Yes Status: Acute Code(s): E11.628 - TYPE 2 DIABETES MELLITUS WITH OTHER SKIN COMPLICATIONS; L08.9 - LOCAL INFECTION OF THE SKIN AND SUBCUTANEOUS TISSUE, UNSP SNOMED Code(s): 281700110 (2) Foot abscess, right Current Visit: Yes Status: Acute Code(s): L02.611 - CUTANEOUS ABSCESS OF RIGHT FOOT SNOMED Code(s): 15886183617044241 Plan: 1patient with a chronic nonhealing wound on the plantar aspect of the right fo ot now with evidence of significant foul-smelling drainage and fluctuation concerning for an abscess with the x-ray suggestive of possible gas-forming pathogen we will need to cover for the polymicrobial birdie associated with diabetic foot infection. 2patient is status post surgical debridement of the right foot abscess extending down to the fascia and tendon and deep culture which are currently growing Enterococcus faecalis strep anaerobes 3patient will be treated with Unasyn while inpatient, will apply calamine lotion to the rash of the back and keep the area dry and off pressure Dictation was produced using [employer] dictation software. please excuse any grammatical, word or spelling errors. Time with Patient: Less than 30
[2024-07-05 16:55] LABS: Glucose,Whole Blood 122 mg/dL (70-110)
[2024-07-05 20:34] LABS: Glucose,Whole Blood 192 mg/dL (70-110)
[2024-07-06 05:55] LABS: Glucose,Whole Blood 138 mg/dL (70-110)
--- NOTE | 2024-07-06 10:19 | P.PN ---
Subjective Progress Note Date: 07/06/24 Subjective: Patient seen and examined at bedside. No acute events overnight. Pertinent positives and negatives as discussed above, a complete review of systems was performed and all other systems are negative. Vitals Signs Reviewed. Gen: In NAD, non-toxic HEENT: normocephalic, atraumatic, hearing acuity is intant, mucous membranes moist CVS: perfusing all extremities, bilateral pitting edema, Respiratory: symmetric chest expansion, no accessory muscle use, GI: soft, NTTP, ND, : no suprapubic tenderness, no CVA tenderness MSK/Derm: no rashes, cyanosis Neuro: CN II-XII intact, no motor weakness, Psych: cooperative, euthymic mood, judgment and insight is intact Assessment and Plan: Active: Right foot abscess status post incision and drainage, status post wound VAC Diabetic foot infection Leukocytosis, resolved -ID following -Wound care following -Currently on Unasyn IV, plan for daptomycin and oral Flagyl at the time of discharge CHAVO on CKD stage III, now on dialysis Acute hypoxic respiratory failure, resolved Acute on chronic systolic CHF exacerbation COPD, without exacerbation Iron deficiency anemia and anemia of chronic disease Hyponatremia, resolved -Nephrology following -Torsemide 40mg daily, iHD TuThSa, monitor electrolytes -Patient on darbepoetin subcu q. 7 days, also status post 1 unit of PRBCs during this admission -No active bleeding -Continue Coreg 6.25 twice daily, will need further guideline directed medical therapy Type 2 diabetes -Levemir 60 units nightly, insulin aspart 10 units 3 times daily, also on sliding scale insulin, monitor for hypoglycemia Acute urinary retention -Hamilton catheter discontinued -Tamsulosin 0.4 mg daily Chronic: GERD DVT ppx: Subcu heparin Code status: Full code Anticipated discharge place: Pending clinical course Anticipated discharge time: Pending clinical course Objective - Vital Signs Vital signs: Vital Signs Temp 98.4 F 07/06/24 07:23 Pulse 70 07/06/24 08:59 Resp 16 07/06/24 07:23 BP 156/91 07/06/24 07:23 Pulse Ox 98 07/06/24 07:23 FiO2 21 06/17/24 08:44 Intake & Output 07/05/24 07/06/24 07/06/24 18:59 06:59 18:59 Intake Total 400 360 Output Total 4400 700 680 Balance -4000 -700 -320 Weight 385.7 kg Intake: Oral 360 Hemodialysis 400 Output: Urine 700 680 Hemodialysis 2400 Hemodialysis Net Amount 1999 Other: Voiding Method Urinal Urinal Urinal # Voids 2 - Labs CBC & Chem 7: 06/29/24 04:33 07/05/24 04:12 Labs: Abnormal Lab Results - Last 24 Hours (Table) 07/05/24 07/05/24 07/05/24 Range/Units 11:49 16:53 20:29 POC Glucose (mg/dL) 119 H 122 H 192 H (70-110) mg/dL 07/06/24 Range/Units 05:51 POC Glucose (mg/dL) 138 H (70-110) mg/dL
--- NOTE | 2024-07-06 10:26 | P.PN ---
Subjective Patient is seen in follow-up for acute kidney injury on chronic kidney disease. Started on hemodialysis June 13, 2024. Hamilton catheter has been removed. Has been voiding on his own. Tolerated 2 L ultrafiltration yesterday. Vital signs are stable. General: No acute distress. HEENT: Head exam is unremarkable. On room air. LUNGS: No audible rhonchi or wheezes. HEART: Rate and Rhythm are regular. ABDOMEN: Obese, nontender. EXTREMITITES: 1+ edema. Chronic changes noted. Objective - Vital Signs Vital signs: Vital Signs Temp 98.4 F 07/06/24 07:23 Pulse 70 07/06/24 08:59 Resp 16 07/06/24 07:23 BP 156/91 07/06/24 07:23 Pulse Ox 98 07/06/24 07:23 FiO2 21 06/17/24 08:44 Intake & Output 07/05/24 07/06/24 07/06/24 18:59 06:59 18:59 Intake Total 400 360 Output Total 4400 700 680 Balance -4000 -700 -320 Weight 385.7 kg Intake: Oral 360 Hemodialysis 400 Output: Urine 700 680 Hemodialysis 2400 Hemodialysis Net Amount 2000 Other: Voiding Method Urinal Urinal Urinal # Voids 2 - Labs CBC & Chem 7: 06/29/24 04:33 07/05/24 04:12 Labs: Abnormal Lab Results - Last 24 Hours (Table) 07/05/24 07/05/24 07/05/24 Range/Units 11:49 16:53 20:29 POC Glucose (mg/dL) 119 H 122 H 192 H (70-110) mg/dL 07/06/24 Range/Units 05:51 POC Glucose (mg/dL) 138 H (70-110) mg/dL Assessment and Plan Plan: Assessment: 1. Acute kidney injury secondary to ATN secondary to cardiorenal syndrome as well as contrast associated acute kidney injury. Patient received IV contrast on June 07, 2024. Creatinine 1.8 on admission and was over 6 this admission. Kidney ultrasound showed no evidence of hydronephrosis. Started on hemodialysis June 13, 2024 via temporary right IJ catheter. Now has permacath. Creatinine 4.74 dated July 05, 2024. 2. Chronic kidney disease stage IIIb with baseline creatinine 1.8-2 secondary to diabetic kidney disease. 3. Acute on chronic systolic CHF ejection fraction of 30 to 35%. 4. Diabetes mellitus. 5. Anemia of chronic kidney disease. Iron deficiency noted. Status post IV iron. On Aranesp. 6. Hypervolemic hyponatremia. Improved with dialysis. 7. Volume overload. Improving with diuresis and ultrafiltration. 8. Chronic kidney disease mineral bone disease. Phosphorus level 5.3 dated D 2023. On PhosLo. Plan: Next hemodialysis tomorrow. Currently maintained on Thursday schedule. Maintain torsemide. Avoid nephrotoxins. Monitor for renal recovery outpatient. Urine output has improved. Maintain Mag-Ox. Outpatient dialysis being set up by high risk case manager. Awaits placement.
[2024-07-06 12:12] LABS: Glucose,Whole Blood 122 mg/dL (70-110)
[2024-07-06] MEDS: CALAMINE/ZINC OXIDE LOTION 177 ML BTL TOPICAL PRN (12:48)
[2024-07-06 17:07] LABS: Glucose,Whole Blood 134 mg/dL (70-110)
[2024-07-06 20:31] LABS: Glucose,Whole Blood 206 mg/dL (70-110)
[2024-07-07 06:14] LABS: Glucose,Whole Blood 105 mg/dL (70-110)
[2024-07-07] MEDS: amLODIPine 10 MG TAB PO SCH (08:20)
--- NOTE | 2024-07-07 09:59 | P.PN ---
Subjective Patient is seen in follow-up for acute kidney injury on chronic kidney disease. Started on hemodialysis June 13, 2024. Hamilton catheter has been removed. Has been voiding on his own. Scheduled for dialysis today. Awaits placement. No active complaints. Vital signs are stable. General: No acute distress. HEENT: Head exam is unremarkable. On room air. LUNGS: No audible rhonchi or wheezes. HEART: Rate and Rhythm are regular. ABDOMEN: Obese, nontender. EXTREMITITES: 1+ edema. Chronic changes noted. Objective - Vital Signs Vital signs: Vital Signs Temp 97.9 F 07/07/24 07:49 Pulse 78 07/07/24 09:37 Resp 20 07/07/24 07:49 BP 152/86 07/07/24 07:49 Pulse Ox 98 07/07/24 07:49 FiO2 21 06/17/24 08:44 Intake & Output 07/06/24 07/07/24 07/07/24 18:59 06:59 18:59 Intake Total 900 Output Total 1580 650 0 Balance -680 -650 0 Weight 175.1 kg Intake: Oral 900 Output: Urine 1580 650 Stool 0 Other: Voiding Method Urinal Urinal # Voids 0 - Labs CBC & Chem 7: 06/29/24 04:33 07/05/24 04:12 Labs: Abnormal Lab Results - Last 24 Hours (Table) 07/06/24 07/06/24 07/06/24 Range/Units 12:11 17:06 20:30 POC Glucose (mg/dL) 122 H 134 H 206 H (70-110) mg/dL Assessment and Plan Plan: Assessment: 1. Acute kidney injury secondary to ATN secondary to cardiorenal syndrome as well as contrast associated acute kidney injury. Patient received IV contrast on June 07, 2024. Creatinine 1.8 on admission and was over 6 this admission. Kidney ultrasound showed no evidence of hydronephrosis. Started on hemodialysis June 13, 2024 via temporary right IJ catheter. Now has permacath. Creatinine 4.74 dated July 05, 2024. 2. Chronic kidney disease stage IIIb with baseline creatinine 1.8-2 secondary to diabetic kidney disease. 3. Acute on chronic systolic CHF ejection fraction of 30 to 35%. 4. Diabetes mellitus. 5. Anemia of chronic kidney disease. Iron deficiency noted. Status post IV iron. On Aranesp. 6. Hypervolemic hyponatremia. Improved with dialysis. 7. Volume overload. Improving with diuresis and ultrafiltration. 8. Chronic kidney disease mineral bone disease. Phosphorus level 5.3 dated July 02, 2024. On PhosLo. Plan: Hemodialysis today. Currently maintained on Thursday schedule. Maintain torsemide. Avoid nephrotoxins. Monitor for renal recovery outpatient. Urine output has improved. Maintain Mag-Ox. Outpatient dialysis being set up by pillowcase cutter. Awaits placement.
[2024-07-07 10:27] LABS: BUN/Creat Ratio 10.45 Ratio (12.00-20.00); Blood Urea Nitrogen 41.8 mg/dL (9.0-27.0); Calcium 8.9 mg/dL (8.7-10.3); Carbon Dioxide 26.7 mmol/L (21.6-31.8); Chloride 98 mmol/L (96-109); Glucose 100 mg/dL (70-110); Potassium 4.8 mmol/L (3.5-5.5); Sodium 136 mmol/L (135-145)
[2024-07-07 12:09] LABS: Glucose,Whole Blood 105 mg/dL (70-110)
--- NOTE | 2024-07-07 14:26 | P.PN ---
Subjective Progress Note Date: 07/06/24 Principal diagnosis: Reason for follow-up is right diabetic foot infection Patient is a 54-year-old male with a past medical history significant for COPD diabetes mellitus [place] sleep apnea presenting the hospital initially for evaluation of increasing shortness of breath patient also have a right diabetic foot ulcer being treated by the wound care noticed to have worsening diagnosed with an abscess prompting this consultation patient is status post extensive surgical debridement which was sent down to the fascia and tendon. On today's evaluation that is 07/06/2024,the patient denies any fever or any chills, patient is breathing comfortably on room air, the patient denies chest pain shortness of breath and no significant cough, patient denies abdominal pain, no nausea vomiting or diarrhea. Denies pain to the right foot wound. No lab work today Objective - Vital Signs Vital signs: Vital Signs Temp 99.1 F 07/06/24 14:00 Pulse 78 07/06/24 14:00 Resp 16 07/06/24 14:00 BP 134/88 07/06/24 14:00 Pulse Ox 94 L 07/06/24 14:00 FiO2 21 06/17/24 08:44 Intake & Output 07/05/24 07/06/24 07/06/24 18:59 06:59 18:59 Intake Total 400 360 Output Total 4400 700 680 Balance -4000 -700 -320 Weight 385.7 kg Intake: Oral 360 Hemodialysis 400 Output: Urine 700 680 Hemodialysis 2400 Hemodialysis Net Amount 2000 Other: Voiding Method Urinal Urinal Urinal # Voids 2 - Exam GENERAL DESCRIPTION: Middle-age male lying in bed in no distress RESPIRATORY SYSTEM: Unlabored breathing , decreased breath sounds at bases HEART: S1 S2 regular rate and rhythm , ABDOMEN: Soft , no tenderness EXTREMITIES: Right foot wound currently dressed no drainage - Labs CBC & Chem 7: 06/29/24 04:33 07/07/24 05:31 Labs: Abnormal Lab Results - Last 24 Hours (Table) 07/05/24 07/05/24 07/06/24 Range/Units 16:53 20:29 05:51 POC Glucose (mg/dL) 122 H 192 H 138 H (70-110) mg/dL 07/06/24 Range/Units 12:11 POC Glucose (mg/dL) 122 H (70-110) mg/dL Assessment and Plan (1) Diabetic foot infection Current Visit: Yes Status: Acute Code(s): E11.628 - TYPE 2 DIABETES MELLITUS WITH OTHER SKIN COMPLICATIONS; L08.9 - LOCAL INFECTION OF THE SKIN AND SUBCUTANEOUS TISSUE, UNSP SNOMED Code(s): 630649745 (2) Foot abscess, right Current Visit: Yes Status: Acute Code(s): L02.611 - CUTANEOUS ABSCESS OF RIGHT FOOT SNOMED Code(s): 65534944297122879 Plan: 1patient with a chronic nonhealing wound on the plantar aspect of the right foot now with evidence of significant foul-smelling drainage and fluctuation concerning for an abscess with the x-ray suggestive of possible gas-forming pathogen we will need to cover for the polymicrobial birdie associated with diabetic foot infection. 2patient is status post surgical debridement of the right foot abscess extending down to the fascia and tendon and deep culture which are currently growing Enterococcus faecalis strep anaerobes 3patient will be treated with Unasyn while inpatient local wound care discussed with the nursing staff to apply Aquacel silver dressing dry and advised to continue calamine lotion to the rash of the back and keep the area dry and off pressure Dictation was produced using [employer] dictation software. please excuse any grammatical, word or spelling errors. Time with Patient: Less than 30
--- NOTE | 2024-07-07 14:27 | P.PN ---
Subjective Progress Note Date: 07/07/24 Principal diagnosis: Reason for follow-up is right diabetic foot infection Patient is a 54-year-old male with a past medical history significant for COPD diabetes mellitus OR sleep apnea presenting the hospital initially for evaluation of increasing shortness of breath patient also have a right diabetic foot ulcer being treated by the wound care noticed to have worsening diagnosed with an abscess prompting this consultation patient is status post extensive surgical debridement which was sent down to the fascia and tendon. On today's evaluation that is 07/07/2024,the patient remains to be afebrile, patient is on room air not requiring supplemental oxygen and denies any shortness of breath no chest pain or cough.Patient denies having any nausea or vomiting, no abdominal pain and no diarrhea has been reported. Patient did have a creatinine of 4.0 no CBC was done today Objective - Vital Signs Vital signs: Vital Signs Temp 97.9 F 07/07/24 07:49 Pulse 82 07/07/24 12:36 Resp 20 07/07/24 07:49 BP 152/86 07/07/24 07:49 Pulse Ox 98 07/07/24 07:49 FiO2 21 06/17/24 08:44 Intake & Output 07/06/24 07/07/24 07/07/24 18:59 06:59 18:59 Intake Total 900 Output Total 1580 650 0 Balance -680 -650 0 Weight 175.1 kg Intake: Oral 900 Output: Urine 1580 650 Stool 0 Other: Voiding Method Urinal Urinal # Voids 0 - Exam GENERAL DESCRIPTION: Middle-age male lying in bed in no distress RESPIRATORY SYSTEM: Unlabored breathing , decreased breath sounds at bases HEART: S1 S2 regular rate and rhythm , ABDOMEN: Soft , no tenderness EXTREMITIES: Right foot wound currently dressed no drainage - Labs CBC & Chem 7: 06/29/24 04:33 07/07/24 05:31 Labs: Abnormal Lab Results - Last 24 Hours (Table) 07/06/24 07/06/24 07/07/24 Range/Units 17:06 20:30 05:31 BUN 41.8 H (9.0-27.0) mg/dL Creatinine 4.0 H (0.6-1.5) mg/dL Est GFR (CKD-EPI) 17 L (>=60) BUN/Creatinine Ratio 10.45 L (12.00-20.00) Ratio POC Glucose (mg/dL) 134 H 206 H (70-110) mg/dL Assessment and Plan (1) Diabetic foot infection Current Visit: Yes Status: Acute Code(s): E11.628 - TYPE 2 DIABETES MELLITUS WITH OTHER SKIN COMPLICATIONS; L08.9 - LOCAL INFECTION OF THE SKIN AND SUBCUTANEOUS TISSUE, UNSP SNOMED Code(s): 373719685 (2) Foot abscess, right Current Visit: Yes Status: Acute Code(s): L02.611 - CUTANEOUS ABSCESS OF RIGHT FOOT SNOMED Code(s): 60239529849795677 Plan: 1patient with a chronic nonhealing wound on the plantar aspect of the right foot now with evidence of significant foul-smelling drainage and fluctuation concerning for an abscess with the x-ray suggestive of possible gas-forming pathogen we will need to cover for the polymicrobial birdie associated with diabetic foot infection. 2patient is status post surgical debridement of the right foot abscess extending down to the fascia and tendon and deep culture which are currently growing Enterococcus faecalis strep anaerobes 3patient currently on Unasyn while inpatient, local wound care discussed with the nursing staff to apply Aquacel silver dressing dry and plan is to transition to oral Augmentin on discharge Dictation was produced using [employer] dictation software. please excuse any grammatical, word or spelling errors. Time with Patient: Less than 30
--- NOTE | 2024-07-07 16:16 | P.PN ---
Subjective Progress Note Date: 07/07/2407/07. Patient seen lying comfortably in bed. No acute events overnight. No significant complaints today. Labs today: Sodium 136, potassium 4.8, chloride 98, CO2 26.7, BUN 41.8, creatinine 4, glucose 100, calcium 8.9. Pending subacute rehab/hemodialysis placement. Pertinent positives and negatives discussed above, a complete review of systems was performed and all the other systems were negative. Physical examination: Vital signs reviewed General: Nontoxic, no distress, appears stated age, well-appearing Derm: Warm, dry, intact Head: Atraumatic, normocephalic, symmetric Eyes: EOMI, anicteric sclera Mouth: No lip lesion, mucus membranes moist Cardiovascular: S1-S2 regular, no murmur Lungs: CTA bilateral, no rhonchi, no rales, no accessory muscle use Abdominal: Soft, non-tender to palpation Extremities: No cyanosis, clubbing, or pedal edema, right lower extremity with wound dressing Neuro: Alert, oriented x 3, gross neurological examination did not reveal any focal deficits. Cranial nerves II to XII grossly intact. Psych: Appropriate affect and mood Assessment and Plan: Active #. Right foot abscess status post incision and drainage, status post wound VAC #. Diabetic foot infection #. Leukocytosis, resolved ID following Wound care following Currently on Unasyn IV, plan for daptomycin and oral Flagyl at the time of discharge #. CHAVO on CKD stage III, now on dialysis #. Acute hypoxic respiratory failure, resolved #. Acute on chronic systolic CHF exacerbation #. COPD, without exacerbation #. Iron deficiency anemia and anemia of chronic disease #. Hyponatremia, resolved Nephrology following Torsemide 40mg daily Hemodialysis [facility] Monitor electrolytes Darbepoetin subcutaneous every 7 days, also status post 1 unit of PRBCs during this admission No active bleeding Continue Coreg 6.25 twice daily, will need further guideline directed medical therapy #. Type 2 diabetes Levemir 60 units nightly Insulin aspart 10 units 3 times daily Sliding scale insulin Monitor for hypoglycemia #. Acute urinary retention Tamsulosin 0.4 mg daily Chronic: GERD DVT prophylaxis: Subcu heparin GI prophylaxis: Protonix 40 mg PO daily Code status: Full code with instructions Anticipated discharge place: Pending clinical course Anticipated discharge time: Pending clinical course I saw and evaluated the patient during the fernández and critical portions of this encounter, and discussed the case in detail with the resident author of this note, I agree with the Assessment and Plan, and my changes, if any, are highlighted in blue. Objective - Vital Signs Vital signs: Vital Signs Temp 97.7 F 07/07/24 03:32 Pulse 78 07/07/24 04:10 Resp 17 07/07/24 03:32 BP 154/101 07/07/24 03:55 Pulse Ox 95 07/07/24 03:32 FiO2 21 06/17/24 08:44 Intake & Output 07/06/24 07/06/24 07/07/24 06:59 18:59 06:59 Intake Total 900 Output Total 700 1580 650 Balance -700 -680 -650 Weight 385.7 kg 175.1 kg Intake: Oral 900 Output: Urine 700 1580 650 Other: Voiding Method Urinal Urinal Urinal # Voids 0 - Labs CBC & Chem 7: 06/29/24 04:33 07/07/24 05:31 Labs: Abnormal Lab Results - Last 24 Hours (Table) 07/06/24 07/06/24 07/06/24 Range/Units 12:11 17:06 20:30 POC Glucose (mg/dL) 122 H 134 H 206 H (70-110) mg/dL
[2024-07-07 17:10] LABS: Glucose,Whole Blood 179 mg/dL (70-110)
[2024-07-07] MEDS: NYSTATIN 100,000 UNIT/GM POWD 15 GM TOPICAL SCH (18:32)
[2024-07-07 21:00] LABS: Glucose,Whole Blood 185 mg/dL (70-110)
[2024-07-08 06:15] LABS: Glucose,Whole Blood 120 mg/dL (70-110)
[2024-07-08 08:35] LABS: Basophils # (A) 0.03 X 10*3/uL (0.00-0.10); Basophils % (A) 0.6 %; Eosinophils # (A) 0.45 X 10*3/uL (0.04-0.35); Eosinophils % (A) 8.3 %; HGB 8.9 g/dL (13.0-17.0); Lymphocytes # (A) 0.81 X 10*3/uL (0.90-5.00); Lymphocytes % (A) 14.9 %; MCH 27.3 pg (27.0-32.0); MCHC 29.7 g/dL (32.0-37.0); Mean Platelet Volume 10.3 FL (9.5-12.2); Monocytes # (A) 0.55 X 10*3/uL (0.20-1.00); Monocytes % (A) 10.1 %; NRBC Per 100 WBC 0 X 10*3/uL (0.00-0.01); Neutrophils # (A) 3.58 X 10*3/uL (1.80-7.70); Neutrophils % (A) 65.5 %; Platelet Count 276 X 10*3/uL (140-440); RBC 3.26 X 10*6/uL (4.40-5.60); RDW 16.1 % (11.5-14.5); WBC 5.45 X 10*3/uL (4.50-10.00)
[2024-07-08 08:39] LABS: BUN/Creat Ratio 9.44 Ratio (12.00-20.00); Calcium 8.4 mg/dL (8.7-10.3); Carbon Dioxide 26.3 mmol/L (21.6-31.8); Chloride 97 mmol/L (96-109); Glucose 143 mg/dL (70-110); Potassium 4.7 mmol/L (3.5-5.5); Sodium 135 mmol/L (135-145)
--- NOTE | 2024-07-08 10:20 | P.PN ---
Subjective Patient is seen in follow-up for acute kidney injury on chronic kidney disease. Started on hemodialysis June 13, 2024. Hamilton catheter has been removed. Has been voiding on his own. Tolerated 2 L ultrafiltration yesterday. Awaits placement. No active complaints. Vital signs are stable. General: No acute distress. HEENT: Head exam is unremarkable. On room air. LUNGS: No audible rhonchi or wheezes. HEART: Rate and Rhythm are regular. ABDOMEN: Obese, nontender. EXTREMITITES: 1+ edema. Chronic changes noted. Objective - Vital Signs Vital signs: Vital Signs Temp 98.2 F 07/08/24 07:59 Pulse 72 07/08/24 08:53 Resp 16 07/08/24 07:59 BP 128/76 07/08/24 07:59 Pulse Ox 100 07/08/24 07:59 FiO2 21 06/17/24 08:44 Intake & Output 07/07/24 07/08/24 07/08/24 18:59 06:59 18:59 Intake Total 2518 0 250 Output Total 3000 600 Balance -482 -600 250 Weight 174.9 kg Intake: Oral 118 0 250 Hemodialysis 2400 Output: Urine 600 600 Stool 0 Hemodialysis 400 Hemodialysis Net Amount 2000 Other: Voiding Method Urinal - Labs CBC & Chem 7: 07/08/24 03:31 07/08/24 03:31 Labs: Abnormal Lab Results - Last 24 Hours (Table) 07/07/24 07/07/24 07/07/24 Range/Units 05:31 17:07 20:59 RBC (4.40-5.60) X 10*6/uL Hgb (13.0-17.0) g/dL Hct (39.6-50.0) % MCHC (32.0-37.0) g/dL RDW (11.5-14.5) % Lymphocytes # (0.90-5.00) X 10*3/uL Eosinophils # (0.04-0.35) X 10*3/uL BUN 41.8 H (9.0-27.0) mg/dL Creatinine 4.0 H (0.6-1.5) mg/dL Est GFR (CKD-EPI) 17 L (>=60) BUN/Creatinine Ratio 10.45 L (12.00-20.00) Ratio Glucose (70-110) mg/dL POC Glucose (mg/dL) 179 H 185 H (70-110) mg/dL Calcium (8.7-10.3) mg/dL 07/08/24 07/08/24 07/08/24 Range/Units 03:31 03:31 06:13 RBC 3.26 L (4.40-5.60) X 10*6/uL Hgb 8.9 L (13.0-17.0) g/dL Hct 30.0 L (39.6-50.0) % MCHC 29.7 L (32.0-37.0) g/dL RDW 16.1 H (11.5-14.5) % Lymphocytes # 0.81 L (0.90-5.00) X 10*3/uL Eosinophils # 0.45 H (0.04-0.35) X 10*3/uL BUN 34.0 H (9.0-27.0) mg/dL Creatinine 3.6 H (0.6-1.5) mg/dL Est GFR (CKD-EPI) 19 L (>=60) BUN/Creatinine Ratio 9.44 L (12.00-20.00) Ratio Glucose 143 H (70-110) mg/dL POC Glucose (mg/dL) 120 H (70-110) mg/dL Calcium 8.4 L (8.7-10.3) mg/dL Assessment and Plan Plan: Assessment: 1. Acute kidney injury secondary to ATN secondary to cardiorenal syndrome as well as contrast associated acute kidney injury. Patient received IV contrast on June 07, 2024. Creatinine 1.8 on admission and was over 6 this admission. Kidney ultrasound showed no evidence of hydronephrosis. Started on hemodialysis June 13, 2024 via temporary right IJ catheter. Now has permacath. Creatinine 4.0 with GFR of 17 prior to dialysis July 07, 2024. 2. Chronic kidney disease stage IIIb with baseline creatinine 1.8-2 secondary to diabetic kidney disease. 3. Acute on chronic systolic CHF ejection fraction of 30 to 35%. 4. Diabetes mellitus. 5. Anemia of chronic kidney disease. Iron deficiency noted. Status post IV iron. On Aranesp. 6. Hypervolemic hyponatremia. Improved with dialysis. 7. Volume overload. Improving with diuresis and ultrafiltration. 8. Chronic kidney disease mineral bone disease. Phosphorus level 5.3 dated July 02, 2024. On PhosLo. Plan: Hemodialysis tomorrow. Will check labs prior to dialysis and assess need for renal replacement therapy. Currently maintained on Thursday schedule. Maintain torsemide. Avoid nephrotoxins. Monitor for renal recovery outpatient. Urine output has improved. Maintain Mag-Ox. Outpatient dialysis being set up by residential case manager. Awaits placement.
[2024-07-08 12:08] LABS: Glucose,Whole Blood 156 mg/dL (70-110)
--- NOTE | 2024-07-08 12:58 | P.PN ---
Subjective Progress Note Date: 07/08/2407/07. Patient seen lying comfortably in bed. No acute events overnight. No significant complaints today. Labs today: Sodium 136, potassium 4.8, chloride 98, CO2 26.7, BUN 41.8, creatinine 4, glucose 100, calcium 8.9. Pending subacute rehab/hemodialysis placement. 07/08. Patient seen lying in bed. No acute events overnight. No significant complaints today. Labs today: WBC 5.45, hemoglobin 8.9, platelets 276, sodium 135, potassium 4.7, chloride 97, CO2 26.3, BUN 24, creatinine 3.6, glucose 143, calcium 8.4.. Pending subacute rehab/hemodialysis placement. Pertinent positives and negatives discussed above, a complete review of systems was performed and all the other systems were negative. Physical examination: Vital signs reviewed General: Nontoxic, no distress, appears stated age, well-appearing Derm: Warm, dry, intact Head: Atraumatic, normocephalic, symmetric Eyes: EOMI, anicteric sclera Mouth: No lip lesion, mucus membranes moist Cardiovascular: S1-S2 regular, no murmur Lungs: CTA bilateral, no rhonchi, no rales, no accessory muscle use Abdominal: Soft, non-tender to palpation Extremities: No cyanosis, clubbing, or pedal edema, right lower extremity with wound dressing Neuro: Alert, oriented x 3, gross neurological examination did not reveal any focal deficits. Cranial nerves II to XII grossly intact. Psych: Appropriate affect and mood Assessment and Plan: Active #. Right foot abscess status post incision and drainage, status post wound VAC #. Diabetic foot infection #. Leukocytosis, resolved ID following Wound care following Currently on Unasyn IV, plan for daptomycin and oral Flagyl at the time of discharge #. CHAVO on CKD stage III, now on dialysis #. Acute hypoxic respiratory failure, resolved #. Acute on chronic systolic CHF exacerbation #. COPD, without exacerbation #. Iron deficiency anemia and anemia of chronic disease #. Hyponatremia, resolved Nephrology following Torsemide 40mg daily Hemodialysis [facility] Monitor electrolytes Darbepoetin subcutaneous every 7 days, also status post 1 unit of PRBCs during this admission No active bleeding Continue Coreg 6.25 twice daily, will need further guideline directed medical therapy #. Type 2 diabetes Levemir 60 units nightly Insulin aspart 10 units 3 times daily Sliding scale insulin Monitor for hypoglycemia #. Acute urinary retention Tamsulosin 0.4 mg daily Chronic: GERD DVT prophylaxis: Subcu heparin GI prophylaxis: Protonix 40 mg PO daily Code status: Full code with instructions Anticipated discharge place: Pending clinical course Anticipated discharge time: Pending clinical course I saw and evaluated the patient during the fernández and critical portions of this encounter, and discussed the case in detail with the resident author of this note, I agree with the Assessment and Plan, and my changes, if any, are highlighted in blue. Objective - Vital Signs Vital signs: Vital Signs Temp 98.3 F 07/08/24 02:35 Pulse 73 07/08/24 02:35 Resp 18 07/08/24 02:35 BP 157/76 07/08/24 02:35 Pulse Ox 95 07/08/24 02:35 FiO2 21 06/17/24 08:44 Intake & Output 07/07/24 07/07/24 07/08/24 06:59 18:59 06:59 Intake Total 2518 0 Output Total 650 3000 600 Balance -650 -482 -600 Weight 175.1 kg 174.9 kg Intake: Oral 118 0 Hemodialysis 2400 Output: Urine 650 600 600 Stool 0 Hemodialysis 400 Hemodialysis Net Amount 2000 Other: Voiding Method Urinal Urinal # Voids 0 - Labs CBC & Chem 7: 07/08/24 03:31 07/08/24 03:31 Labs: Abnormal Lab Results - Last 24 Hours (Table) 07/07/24 07/07/24 07/07/24 Range/Units 05:31 17:07 20:59 BUN 41.8 H (9.0-27.0) mg/dL Creatinine 4.0 H (0.6-1.5) mg/dL Est GFR (CKD-EPI) 17 L (>=60) BUN/Creatinine Ratio 10.45 L (12.00-20.00) Ratio POC Glucose (mg/dL) 179 H 185 H (70-110) mg/dL 07/08/24 Range/Units 06:13 BUN (9.0-27.0) mg/dL Creatinine (0.6-1.5) mg/dL Est GFR (CKD-EPI) (>=60) BUN/Creatinine Ratio (12.00-20.00) Ratio POC Glucose (mg/dL) 120 H (70-110) mg/dL
[2024-07-08 17:03] LABS: Glucose,Whole Blood 190 mg/dL (70-110)
[2024-07-08 20:14] LABS: Glucose,Whole Blood 202 mg/dL (70-110)
[2024-07-09 06:09] LABS: Glucose,Whole Blood 125 mg/dL (70-110)
[2024-07-09 06:59] LABS: African American GFR (CKD) 17 (>60 ml/min/1.73 sqM); Anion Gap 11 mmol/L; Blood Urea Nitrogen 56 mg/dL (9-20); Calcium 9.2 mg/dL (8.4-10.2); Carbon Dioxide 25 mmol/L (22-30); Chloride 98 mmol/L (98-107); Glucose 126 mg/dL (74-99); Non-African American GFR(CKD) 14 (>60 ml/min/1.73 sqM); Potassium 4.7 mmol/L (3.5-5.1); Sodium 134 mmol/L (137-145)
--- NOTE | 2024-07-09 11:07 | P.PN ---
Subjective Progress Note Date: 07/09/2407/07. Patient seen lying comfortably in bed. No acute events overnight. No significant complaints today. Labs today: Sodium 136, potassium 4.8, chloride 98, CO2 26.7, BUN 41.8, creatinine 4, glucose 100, calcium 8.9. Pending subacute rehab/hemodialysis placement. 07/08. Patient seen lying in bed. No acute events overnight. No significant complaints today. Labs today: WBC 5.45, hemoglobin 8.9, platelets 276, sodium 135, potassium 4.7, chloride 97, CO2 26.3, BUN 24, creatinine 3.6, glucose 143, calcium 8.4.. Pending subacute rehab/hemodialysis placement. 07/09. Patient seen sitting up in bedside chair. No acute events overnight. No significant complaints today. Labs today: Sodium 134, potassium 4.7, chloride 98, CO2 25, BUN 56, creatinine 4.37, glucose 126, calcium 9.2. Pertinent positives and negatives discussed above, a complete review of systems was performed and all the other systems were negative. Physical examination: Vital signs reviewed General: Nontoxic, no distress, appears stated age, well-appearing Derm: Warm, dry, intact Head: Atraumatic, normocephalic, symmetric Eyes: EOMI, anicteric sclera Mouth: No lip lesion, mucus membranes moist Cardiovascular: S1-S2 regular, no murmur Lungs: CTA bilateral, no rhonchi, no rales, no accessory muscle use Abdominal: Soft, non-tender to palpation Extremities: No cyanosis, clubbing, or pedal edema, right lower extremity with wound dressing Neuro: Alert, oriented x 3, gross neurological examination did not reveal any f ocal deficits. Cranial nerves II to XII grossly intact. Psych: Appropriate affect and mood Assessment and Plan: Active #. Right foot abscess status post incision and drainage, status post wound VAC #. Diabetic foot infection #. Leukocytosis, resolved ID following Wound care following Currently on Unasyn IV, plan for daptomycin and oral Flagyl at the time of discharge #. CHAVO on CKD stage III, now on dialysis #. Acute hypoxic respiratory failure, resolved #. Acute on chronic systolic CHF exacerbation #. COPD, without exacerbation #. Iron deficiency anemia and anemia of chronic disease #. Hyponatremia, resolved Nephrology following Torsemide 40mg daily Hemodialysis [facility] Monitor electrolytes Darbepoetin subcutaneous every 7 days, also status post 1 unit of PRBCs during this admission No active bleeding Continue Coreg 6.25 twice daily, will need further guideline directed medical therapy #. Type 2 diabetes Levemir 60 units nightly Insulin aspart 10 units 3 times daily Sliding scale insulin Monitor for hypoglycemia #. Acute urinary retention Tamsulosin 0.4 mg daily Chronic: GERD DVT prophylaxis: Subcu heparin GI prophylaxis: Protonix 40 mg PO daily Code status: Full code with instructions Anticipated discharge place: Pending clinical course Anticipated discharge time: Pending clinical course I saw and evaluated the patient during the fernández and critical portions of this encounter, and discussed the case in detail with the resident author of this note, I agree with the Assessment and Plan, and my changes, if any, are highlighted in blue. Objective - Vital Signs Vital signs: Vital Signs Temp 97.7 F 07/09/24 02:22 Pulse 81 07/09/24 02:22 Resp 17 07/09/24 02:22 BP 158/89 07/09/24 02:22 Pulse Ox 93 L 07/09/24 02:22 FiO2 21 06/17/24 08:44 Intake & Output 07/08/24 07/08/24 07/09/24 06:59 18:59 06:59 Intake Total 0 1510 Output Total 600 1150 Balance -600 1510 -1150 Weight 174.9 kg 147 kg Intake: Oral 0 1510 Output: Urine 600 1150 Other: Voiding Method Urinal Urinal - Labs CBC & Chem 7: 07/08/24 03:31 07/09/24 06:19 Labs: Abnormal Lab Results - Last 24 Hours (Table) 07/08/24 07/08/24 07/08/24 Range/Units 03:31 03:31 12:07 RBC 3.26 L (4.40-5.60) X 10*6/uL Hgb 8.9 L (13.0-17.0) g/dL Hct 30.0 L (39.6-50.0) % MCHC 29.7 L (32.0-37.0) g/dL RDW 16.1 H (11.5-14.5) % Lymphocytes # 0.81 L (0.90-5.00) X 10*3/uL Eosinophils # 0.45 H (0.04-0.35) X 10*3/uL BUN 34.0 H (9.0-27.0) mg/dL Creatinine 3.6 H (0.6-1.5) mg/dL Est GFR (CKD-EPI) 19 L (>=60) BUN/Creatinine Ratio 9.44 L (12.00-20.00) Ratio Glucose 143 H (70-110) mg/dL POC Glucose (mg/dL) 156 H (70-110) mg/dL Calcium 8.4 L (8.7-10.3) mg/dL 07/08/24 07/08/24 07/09/24 Range/Units 16:59 20:10 05:57 RBC (4.40-5.60) X 10*6/uL Hgb (13.0-17.0) g/dL Hct (39.6-50.0) % MCHC (32.0-37.0) g/dL RDW (11.5-14.5) % Lymphocytes # (0.90-5.00) X 10*3/uL Eosinophils # (0.04-0.35) X 10*3/uL BUN (9.0-27.0) mg/dL Creatinine (0.6-1.5) mg/dL Est GFR (CKD-EPI) (>=60) BUN/Creatinine Ratio (12.00-20.00) Ratio Glucose (70-110) mg/dL POC Glucose (mg/dL) 190 H 202 H 125 H (70-110) mg/dL Calcium (8.7-10.3) mg/dL
[2024-07-09 12:26] LABS: Glucose,Whole Blood 152 mg/dL (70-110)
--- NOTE | 2024-07-09 14:45 | P.PN ---
Subjective Progress Note Date: 07/09/24 Patient is seen in follow-up for acute kidney injury on chronic kidney disease. Started on hemodialysis June 13, 2024. Hamilton catheter has been removed. Has been voiding on his own. Awaits placement. No active complaints. Vital signs are stable. General: No acute distress. HEENT: Head exam is unremarkable. On room air. LUNGS: No audible rhonchi or wheezes. HEART: Rate and Rhythm are regular. ABDOMEN: Obese, nontender. EXTREMITITES: 1+ edema. Chronic changes noted. Objective - Vital Signs Vital signs: Vital Signs Temp 97.7 F 07/09/24 08:00 Pulse 70 07/09/24 11:40 Resp 16 07/09/24 08:00 BP 126/85 07/09/24 08:00 Pulse Ox 96 07/09/24 08:00 FiO2 21 06/17/24 08:44 Intake & Output 07/08/24 07/09/24 07/09/24 18:59 06:59 18:59 Intake Total 1510 Output Total 1150 Balance 1510 -1150 Weight 147 kg Intake: Oral 1510 Output: Urine 1150 Other: Voiding Method Urinal - Labs CBC & Chem 7: 07/08/24 03:31 07/09/24 06:19 Labs: Abnormal Lab Results - Last 24 Hours (Table) 07/08/24 07/08/24 07/09/24 Range/Units 16:59 20:10 05:57 Sodium (137-145) mmol/L BUN (9-20) mg/dL Creatinine (0.66-1.25) mg/dL Glucose (74-99) mg/dL POC Glucose (mg/dL) 190 H 202 H 125 H (70-110) mg/dL 07/09/24 07/09/24 Range/Units 06:19 12:25 Sodium 134 L (137-145) mmol/L BUN 56 H (9-20) mg/dL Creatinine 4.37 H (0.66-1.25) mg/dL Glucose 126 H (74-99) mg/dL POC Glucose (mg/dL) 152 H (70-110) mg/dL Assessment and Plan Assessment: 1. Acute kidney injury secondary to ATN secondary to cardiorenal syndrome as well as contrast associated acute kidney injury. Patient received IV contrast on June 07, 2024. Creatinine 1.8 on admission and was over 6 this admission. Kidney ultrasound showed no evidence of hydronephrosis. Started on hemodialysis June 13, 2024 via temporary right IJ catheter. Now has permacath. Creatinine 4.0 with GFR of 17 prior to dialysis July 07, 2024. 2. Chronic kidney disease stage IIIb with baseline creatinine 1.8-2 secondary to diabetic kidney disease. 3. Acute on chronic systolic CHF ejection fraction of 30 to 35%. 4. Diabetes mellitus. 5. Anemia of chronic kidney disease. Iron deficiency noted. Status post IV iron. On Aranesp. 6. Hypervolemic hyponatremia. Improved with dialysis. 7. Volume overload. Improving with diuresis and ultrafiltration. 8. Chronic kidney disease mineral bone disease. Phosphorus level 5.3 dated July 02, 2024. On PhosLo. Plan: Hemodialysis today currently maintained on Thursday schedule. Maintain torsemide. Avoid nephrotoxins. Monitor for renal recovery outpatient. Urine output has improved. Maintain Mag-Ox. Outpatient dialysis being set up by geriatric case manager. Awaits placement.
--- NOTE | 2024-07-09 15:20 | P.PN ---
Subjective Progress Note Date: 07/08/24 Principal diagnosis: Reason for follow-up is right diabetic foot infection Patient is a 54-year-old male with a past medical history significant for COPD diabetes mellitus [place] sleep apnea presenting the hospital initially for evaluation of increasing shortness of breath patient also have a right diabetic foot ulcer being treated by the wound care noticed to have worsening diagnosed with an abscess prompting this consultation patient is status post extensive surgical debridement which was sent down to the fascia and tendon. On today's evaluation that is 07/08/2024, the patient continues to be afebrile, the patient is on room air and breathing comfortably, the Pt denies having any chest pain or cough, the patient denies having any abdominal pain no vomiting or any diarrhea has been reported by the nursing staff. Patient white count is 5.45, creatinine 0.6 Objective - Vital Signs Vital signs: Vital Signs Temp 98.1 F 07/08/24 14:00 Pulse 70 07/08/24 15:44 Resp 17 07/08/24 14:00 BP 114/77 07/08/24 14:00 Pulse Ox 96 07/08/24 14:00 FiO2 21 06/17/24 08:44 Intake & Output 07/07/24 07/08/24 07/08/24 18:59 06:59 18:59 Intake Total 2518 0 790 Output Total 3000 600 Balance -482 -600 790 Weight 174.9 kg Intake: Oral 118 0 790 Hemodialysis 2400 Output: Urine 600 600 Stool 0 Hemodialysis 400 Hemodialysis Net Amount 2000 Other: Voiding Method Urinal Urinal - Exam GENERAL DESCRIPTION: Middle-age male lying in bed in no distress RESPIRATORY SYSTEM: Unlabored breathing , decreased breath sounds at bases HEART: S1 S2 regular rate and rhythm , ABDOMEN: Soft , no tenderness EXTREMITIES: Right foot wound currently dressed no drainage - Labs CBC & Chem 7: 07/08/24 03:31 07/09/24 06:19 Labs: Abnormal Lab Results - Last 24 Hours (Table) 07/07/24 07/07/24 07/08/24 Range/Units 17:07 20:59 03:31 RBC 3.26 L (4.40-5.60) X 10*6/uL Hgb 8.9 L (13.0-17.0) g/dL Hct 30.0 L (39.6-50.0) % MCHC 29.7 L (32.0-37.0) g/dL RDW 16.1 H (11.5-14.5) % Lymphocytes # 0.81 L (0.90-5.00) X 10*3/uL Eosinophils # 0.45 H (0.04-0.35) X 10*3/uL BUN (9.0-27.0) mg/dL Creatinine (0.6-1.5) mg/dL Est GFR (CKD-EPI) (>=60) BUN/Creatinine Ratio (12.00-20.00) Ratio Glucose (70-110) mg/dL POC Glucose (mg/dL) 179 H 185 H (70-110) mg/dL Calcium (8.7-10.3) mg/dL 07/08/24 07/08/24 07/08/24 Range/Units 03:31 06:13 12:07 RBC (4.40-5.60) X 10*6/uL Hgb (13.0-17.0) g/dL Hct (39.6-50.0) % MCHC (32.0-37.0) g/dL RDW (11.5-14.5) % Lymphocytes # (0.90-5.00) X 10*3/uL Eosinophils # (0.04-0.35) X 10*3/uL BUN 34.0 H (9.0-27.0) mg/dL Creatinine 3.6 H (0.6-1.5) mg/dL Est GFR (CKD-EPI) 19 L (>=60) BUN/Creatinine Ratio 9.44 L (12.00-20.00) Ratio Glucose 143 H (70-110) mg/dL POC Glucose (mg/dL) 120 H 156 H (70-110) mg/dL Calcium 8.4 L (8.7-10.3) mg/dL Assessment and Plan (1) Diabetic foot infection Current Visit: Yes Status: Acute Code(s): E11.628 - TYPE 2 DIABETES MELLITUS WITH OTHER SKIN COMPLICATIONS; L08.9 - LOCAL INFECTION OF THE SKIN AND SUBCUTANEOUS TISSUE, UNSP SNOMED Code(s): 255028757 (2) Foot abscess, right Current Visit: Yes Status: Acute Code(s): L02.611 - CUTANEOUS ABSCESS OF RIGHT FOOT SNOMED Code(s): 55043991398530866 Plan: 1patient with a chronic nonhealing wound on the plantar aspect of the right foot now with evidence of significant foul-smelling drainage and fluctuation concerning for an abscess with the x-ray suggestive of possible gas-forming pathogen we will need to cover for the polymicrobial birdie associated with diabetic foot infection. 2patient is status post surgical debridement of the right foot abscess extending down to the fascia and tendon and deep culture which are currently growing Enterococcus faecalis strep anaerobes 3patient local wound care with dry Aquacel silver dressing dry and continue with Unasyn while inpatient Dictation was produced using [employer] dictation software. please excuse any grammatical, word or spelling errors. Time with Patient: Less than 30
--- NOTE | 2024-07-09 15:21 | P.PN ---
Subjective Progress Note Date: 07/09/24 Principal diagnosis: Reason for follow-up is right diabetic foot infection Patient is a 54-year-old male with a past medical history significant for COPD diabetes mellitus [place] sleep apnea presenting the hospital initially for evaluation of increasing shortness of breath patient also have a right diabetic foot ulcer being treated by the wound care noticed to have worsening diagnosed with an abscess prompting this consultation patient is status post extensive surgical debridement which was sent down to the fascia and tendon. On today's evaluation that is 07/09/2024, patient did not have any fever and denies any chills, patient is breathing comfortably on room air, patient with no chest pain or cough patient did not have any abdominal pain nausea vomiting or any loose stools, denies pain to the right foot Patient creatinine 4.37 no CBC was done today Objective - Vital Signs Vital signs: Vital Signs Temp 98.3 F 07/09/24 14:00 Pulse 80 07/09/24 14:00 Resp 18 07/09/24 14:00 BP 119/81 07/09/24 14:00 Pulse Ox 95 07/09/24 14:00 FiO2 21 06/17/24 08:44 Intake & Output 07/08/24 07/09/24 07/09/24 18:59 06:59 18:59 Intake Total 1510 Output Total 1150 500 Balance 1510 -1150 -500 Weight 147 kg Intake: Oral 1510 Output: Urine 1150 500 Other: Voiding Method Urinal # Voids 1 # Bowel Movements 1 - Exam GENERAL DESCRIPTION: Middle-age male lying in bed in no distress RESPIRATORY SYSTEM: Unlabored breathing , decreased breath sounds at bases HEART: S1 S2 regular rate and rhythm , ABDOMEN: Soft , no tenderness EXTREMITIES: Right foot wound currently dressed no drainage - Labs CBC & Chem 7: 07/08/24 03:31 07/09/24 06:19 Labs: Abnormal Lab Results - Last 24 Hours (Table) 07/08/24 07/08/24 07/09/24 Range/Units 16:59 20:10 05:57 Sodium (137-145) mmol/L BUN (9-20) mg/dL Creatinine (0.66-1.25) mg/dL Glucose (74-99) mg/dL POC Glucose (mg/dL) 190 H 202 H 125 H (70-110) mg/dL 07/09/24 07/09/24 Range/Units 06:19 12:25 Sodium 134 L (137-145) mmol/L BUN 56 H (9-20) mg/dL Creatinine 4.37 H (0.66-1.25) mg/dL Glucose 126 H (74-99) mg/dL POC Glucose (mg/dL) 152 H (70-110) mg/dL Assessment and Plan (1) Diabetic foot infection Current Visit: Yes Status: Acute Code(s): E11.628 - TYPE 2 DIABETES MELLITUS WITH OTHER SKIN COMPLICATIONS; L08.9 - LOCAL INFECTION OF THE SKIN AND SUBCUTANEOUS TISSUE, UNSP SNOMED Code(s): 193919621 (2) Foot abscess, right Current Visit: Yes Status: Acute Code(s): L02.611 - CUTANEOUS ABSCESS OF RIGHT FOOT SNOMED Code(s): 19905340142643499 Plan: 1patient with a chronic nonhealing wound on the plantar aspect of the right foot now with evidence of significant foul-smelling drainage and fluctuation concerning for an abscess with the x-ray suggestive of possible gas-forming pathogen we will need to cover for the polymicrobial birdie associated with diabetic foot infection. 2patient is status post surgical debridement of the right foot abscess extending down to the fascia and tendon and deep culture which are currently growing Enterococcus faecalis strep anaerobes 3patient local wound care with dry Aquacel silver dressing dry and continue with Unasyn while inpatient however no plan for IV antibiotic therapy on discharge Dictation was produced using [employer] dictation software. please excuse any grammatical, word or spelling errors. Time with Patient: Less than 30
[2024-07-09 17:35] LABS: Glucose,Whole Blood 147 mg/dL (70-110)
[2024-07-09 20:52] LABS: Glucose,Whole Blood 164 mg/dL (70-110)
[2024-07-09 22:31] LABS: Glucose,Whole Blood 145 mg/dL (70-110)
[2024-07-09] MEDS: HYDROCORTISONE 1% CREAM 30 GM TUBE TOPICAL PRN (22:46)
[2024-07-10 06:03] LABS: Glucose,Whole Blood 158 mg/dL (70-110)
--- NOTE | 2024-07-10 11:24 | P.PN ---
Subjective Progress Note Date: 07/10/2407/07. Patient seen lying comfortably in bed. No acute events overnight. No significant complaints today. Labs today: Sodium 136, potassium 4.8, chloride 98, CO2 26.7, BUN 41.8, creatinine 4, glucose 100, calcium 8.9. Pending subacute rehab/hemodialysis placement. 07/08. Patient seen lying in bed. No acute events overnight. No significant complaints today. Labs today: WBC 5.45, hemoglobin 8.9, platelets 276, sodium 135, potassium 4.7, chloride 97, CO2 26.3, BUN 24, creatinine 3.6, glucose 143, calcium 8.4.. Pending subacute rehab/hemodialysis placement. 07/09. Patient seen sitting up in bedside chair. No acute events overnight. No significant complaints today. Labs today: Sodium 134, potassium 4.7, chloride 98, CO2 25, BUN 56, creatinine 4.37, glucose 126, calcium 9.2. 07/10. Pt is in good spirits. Awaiting placement and [facility] insurance auth. Pertinent positives and negatives discussed above, a complete review of systems was performed and all the other systems were negative. Physical examination: Vital signs reviewed General: Nontoxic, no distress, appears stated age, well-appearing Derm: Warm, dry, intact Head: Atraumatic, normocephalic, symmetric Eyes: EOMI, anicteric sclera Mouth: No lip lesion, mucus membranes moist Cardiovascular: S1-S2 regular, no murmur Lungs: CTA bilateral, no rhonchi, no rales, no accessory muscle use Abdominal: Soft, non-tender to palpation Extremities: No cyanosis, clubbing, or pedal edema, right lower extremity with wound dressing Neuro: Alert, oriented x 3, gross neurological examination did not reveal any focal deficits. Cranial nerves II to XII grossly intact. Psych: Appropriate affect and mood Assessment and Plan: Active #. Right foot abscess status post incision and drainage, status post wound VAC #. Diabetic foot infection #. Leukocytosis, resolved ID following Wound care following Currently on Unasyn IV, plan for daptomycin and oral Flagyl at the time of discharge #. CHAVO on CKD stage III, now on dialysis #. Acute hypoxic respiratory failure, resolved #. Acute on chronic systolic CHF exacerbation #. COPD, without exacerbation #. Iron deficiency anemia and anemia of chronic disease #. Hyponatremia, resolved Nephrology following Torsemide 40mg daily Hemodialysis [facility] Monitor electrolytes Darbepoetin subcutaneous every 7 days, also status post 1 unit of PRBCs during this admission No active bleeding Continue Coreg 6.25 twice daily, will need further guideline directed medical therapy #. Type 2 diabetes Levemir 60 units nightly Insulin aspart 10 units 3 times daily Sliding scale insulin Monitor for hypoglycemia #. Acute urinary retention Tamsulosin 0.4 mg daily Chronic: GERD DVT prophylaxis: Subcu heparin GI prophylaxis: Protonix 40 mg PO daily Code status: Full code with instructions Anticipated discharge place: Pending clinical course Anticipated discharge time: Pending clinical course Objective - Vital Signs Vital signs: Vital Signs Temp 98.7 F 07/10/24 07:29 Pulse 82 07/10/24 08:53 Resp 18 07/10/24 07:29 BP 145/88 07/10/24 07:29 Pulse Ox 90 L 07/10/24 07:29 FiO2 21 06/17/24 08:44 Intake & Output 07/09/24 07/10/24 07/10/24 18:59 06:59 18:59 Intake Total 118 400 236 Output Total 500 5150 Balance -382 -8720 236 Weight 172.864 kg Intake: Oral 118 236 Hemodialysis 400 Output: Urine 500 750 Hemodialysis 2400 Hemodialysis Net Amount 1999 Other: # Voids 1 # Bowel Movements 1 - Labs CBC & Chem 7: 07/08/24 03:31 07/09/24 06:19 Labs: Abnormal Lab Results - Last 24 Hours (Table) 07/09/24 07/09/24 07/09/24 Range/Units 12:25 17:34 20:51 POC Glucose (mg/dL) 152 H 147 H 164 H (70-110) mg/dL 07/09/24 07/10/24 Range/Units 22:30 06:02 POC Glucose (mg/dL) 145 H 158 H (70-110) mg/dL
--- NOTE | 2024-07-10 11:29 | P.PN ---
Subjective Progress Note Date: 07/10/24 Patient is seen in follow-up for acute kidney injury on chronic kidney disease. Started on hemodialysis June 13, 2024. Hamilton catheter has been removed. Has been voiding on his own. Awaits placement. No active complaints. Vital signs are stable. General: No acute distress. HEENT: Head exam is unremarkable. On room air. LUNGS: No audible rhonchi or wheezes. HEART: Rate and Rhythm are regular. ABDOMEN: Obese, nontender. EXTREMITITES: 1+ edema. Chronic changes noted. Objective - Vital Signs Vital signs: Vital Signs Temp 98.7 F 07/10/24 07:29 Pulse 82 07/10/24 08:53 Resp 18 07/10/24 07:29 BP 145/88 07/10/24 07:29 Pulse Ox 90 L 07/10/24 07:29 FiO2 21 06/17/24 08:44 Intake & Output 07/09/24 07/10/24 07/10/24 18:59 06:59 18:59 Intake Total 118 400 Output Total 500 5150 Balance -382 -4750 Weight 172.864 kg Intake: Oral 118 Hemodialysis 400 Output: Urine 500 750 Hemodialysis 2400 Hemodialysis Net Amount 2000 Other: # Voids 1 # Bowel Movements 1 - Labs CBC & Chem 7: 07/08/24 03:31 07/09/24 06:19 Labs: Abnormal Lab Results - Last 24 Hours (Table) 07/09/24 07/09/24 07/09/24 Range/Units 12:25 17:34 20:51 POC Glucose (mg/dL) 152 H 147 H 164 H (70-110) mg/dL 07/09/24 07/10/24 Range/Units 22:30 06:02 POC Glucose (mg/dL) 145 H 158 H (70-110) mg/dL Assessment and Plan Assessment: 1. Acute kidney injury secondary to ATN secondary to cardiorenal syndrome as well as contrast associated acute kidney injury. Patient received IV contrast on June 07, 2024. Creatinine 1.8 on admission and was over 6 this admission. Kidney ultrasound showed no evidence of hydronephrosis. Started on hemodialysis June 13, 2024 via temporary right IJ catheter. Now has permacath. Creatinine 4.0 with GFR of 17 prior to dialysis July 07, 2024. 2. Chronic kidney disease stage IIIb with baseline creatinine 1.8-2 secondary to diabetic kidney disease. 3. Acute on chronic systolic CHF ejection fraction of 30 to 35%. 4. Diabetes mellitus. 5. Anemia of chronic kidney disease. Iron deficiency noted. Status post IV iron. On Aranesp. 6. Hypervolemic hyponatremia. Improved with dialysis. 7. Volume overload. Improving with diuresis and ultrafiltration. 8. Chronic kidney disease mineral bone disease. Phosphorus level 5.3 dated July 02, 2024. On PhosLo. Plan: Hemodialysis on Thursday schedule. Maintain torsemide. Avoid nephrotoxins. Monitor for renal recovery outpatient. Urine output has improved. Maintain Mag-Ox. Clear for discharge once HD placement confirmed
[2024-07-10 12:19] LABS: Glucose,Whole Blood 142 mg/dL (70-110)
--- NOTE | 2024-07-10 16:17 | P.PN ---
Subjective Progress Note Date: 07/10/24 Principal diagnosis: Reason for follow-up is right diabetic foot infection Patient is a 54-year-old male with a past medical history significant for COPD diabetes mellitus [place] sleep apnea presenting the hospital initially for evaluation of increasing shortness of breath patient also have a right diabetic foot ulcer being treated by the wound care noticed to have worsening diagnosed with an abscess prompting this consultation patient is status post extensive surgical debridement which was sent down to the fascia and tendon. On today's evaluation that is 07/10/2024, Patient is afebrile patient is currently on room air and denies having any shortness of breath, the patient denies any chest pain or cough, the patient denies any nausea vomiting did not have any abdominal pain and no diarrhea or pain to the right foot. No new lab has been obtained today Objective - Vital Signs Vital signs: Vital Signs Temp 98.7 F 07/10/24 13:21 Pulse 76 07/10/24 16:08 Resp 17 07/10/24 13:21 BP 128/81 07/10/24 13:21 Pulse Ox 100 07/10/24 13:21 FiO2 21 06/17/24 08:44 Intake & Output 07/09/24 07/10/24 07/10/24 18:59 06:59 18:59 Intake Total 118 400 354 Output Total 500 5150 Balance -382 -4750 354 Weight 172.864 kg Intake: Oral 118 354 Hemodialysis 400 Output: Urine 500 750 Hemodialysis 2400 Hemodialysis Net Amount 2000 Other: # Voids 1 2 # Bowel Movements 1 1 - Exam GENERAL DESCRIPTION: Middle-age male lying in bed in no distress RESPIRATORY SYSTEM: Unlabored breathing , decreased breath sounds at bases HEART: S1 S2 regular rate and rhythm , ABDOMEN: Soft , no tenderness EXTREMITIES: Right foot wound currently dressed no drainage - Labs CBC & Chem 7: 07/08/24 03:31 07/09/24 06:19 Labs: Abnormal Lab Results - Last 24 Hours (Table) 07/09/24 07/09/24 07/09/24 Range/Units 17:34 20:51 22:30 POC Glucose (mg/dL) 147 H 164 H 145 H (70-110) mg/dL 07/10/24 07/10/24 Range/Units 06:02 12:14 POC Glucose (mg/dL) 158 H 142 H (70-110) mg/dL Assessment and Plan (1) Diabetic foot infection Current Visit: Yes Status: Acute Code(s): E11.628 - TYPE 2 DIABETES MELLITUS WITH OTHER SKIN COMPLICATIONS; L08.9 - LOCAL INFECTION OF THE SKIN AND SUBCUTANEOUS TISSUE, UNSP SNOMED Code(s): 167304331 (2) Foot abscess, right Current Visit: Yes Status: Acute Code(s): L02.611 - CUTANEOUS ABSCESS OF RIGHT FOOT SNOMED Code(s): 62240412086437829 Plan: 1patient with a chronic nonhealing wound on the plantar aspect of the right foot now with evidence of significant foul-smelling drainage and fluctuation concerning for an abscess with the x-ray suggestive of possible gas-forming pathogen we will need to cover for the polymicrobial birdie associated with diabetic foot infection. 2patient is status post surgical debridement of the right foot abscess extending down to the fascia and tendon and deep culture which are currently growing Enterococcus faecalis strep anaerobes 3patient local wound care with dry Aquacel silver dressing dry patient will be continued on Unasyn while inpatient await placement Dictation was produced using [employer] dictation software. please excuse any grammatical, word or spelling errors. Time with Patient: Less than 30
[2024-07-10 17:32] LABS: Glucose,Whole Blood 180 mg/dL (70-110)
[2024-07-10 20:22] LABS: Glucose,Whole Blood 162 mg/dL (70-110)
[2024-07-11 05:27] LABS: Glucose,Whole Blood 194 mg/dL (70-110)
[2024-07-11 09:00] LABS: BUN/Creat Ratio 11.88 Ratio (12.00-20.00); Blood Urea Nitrogen 51.1 mg/dL (9.0-27.0); Calcium 8.8 mg/dL (8.7-10.3); Carbon Dioxide 23.6 mmol/L (21.6-31.8); Chloride 96 mmol/L (96-109); Glucose 169 mg/dL (70-110); Magnesium 1.8 mg/dL (1.5-2.4); Potassium 4.8 mmol/L (3.5-5.5); Sodium 133 mmol/L (135-145)
[2024-07-11 09:20] LABS: Basophils # (A) 0.02 X 10*3/uL (0.00-0.10); Basophils % (A) 0.3 %; Eosinophils # (A) 0.54 X 10*3/uL (0.04-0.35); Eosinophils % (A) 8.6 %; HCT 29.2 % (39.6-50.0); HGB 8.8 g/dL (13.0-17.0); Lymphocytes # (A) 0.81 X 10*3/uL (0.90-5.00); Lymphocytes % (A) 12.8 %; MCH 27.2 pg (27.0-32.0); MCHC 30.1 g/dL (32.0-37.0); MCV 90.4 FL (80.0-97.0); Mean Platelet Volume 10.9 FL (9.5-12.2); Monocytes % (A) 11.1 %; NRBC Per 100 WBC 0 X 10*3/uL (0.00-0.01); Neutrophils # (A) 4.22 X 10*3/uL (1.80-7.70); Neutrophils % (A) 66.9 %; Platelet Count 269 X 10*3/uL (140-440); RBC 3.23 X 10*6/uL (4.40-5.60); RDW 16.2 % (11.5-14.5); WBC 6.31 X 10*3/uL (4.50-10.00)
--- NOTE | 2024-07-11 09:53 | P.PN ---
Subjective Progress Note Date: 07/11/2407/07. Patient seen lying comfortably in bed. No acute events overnight. No significant complaints today. Labs today: Sodium 136, potassium 4.8, chloride 98, CO2 26.7, BUN 41.8, creatinine 4, glucose 100, calcium 8.9. Pending subacute rehab/hemodialysis placement. 07/08. Patient seen lying in bed. No acute events overnight. No significant complaints today. Labs today: WBC 5.45, hemoglobin 8.9, platelets 276, sodium 135, potassium 4.7, chloride 97, CO2 26.3, BUN 24, creatinine 3.6, glucose 143, calcium 8.4.. Pending subacute rehab/hemodialysis placement. 07/09. Patient seen sitting up in bedside chair. No acute events overnight. No significant complaints today. Labs today: Sodium 134, potassium 4.7, chloride 98, CO2 25, BUN 56, creatinine 4.37, glucose 126, calcium 9.2. 07/10. Pt is in good spirits. Awaiting placement and [facility] insurance auth. 07/11. Pt is awaiting placement. Plan is to go to [facility] tomorrow 07/12 Pertinent positives and negatives discussed above, a complete review of systems was performed and all the other systems were negative. Physical examination: Vital signs reviewed General: Nontoxic, no distress, appears stated age, well-appearing Derm: Warm, dry, intact Head: Atraumatic, normocephalic, symmetric Eyes: EOMI, anicteric sclera Mouth: No lip lesion, mucus membranes moist Cardiovascular: S1-S2 regular, no murmur Lungs: CTA bilateral, no rhonchi, no rales, no accessory muscle use Abdominal: Soft, non-tender to palpation Extremities: No cyanosis, clubbing, or pedal edema, right lower extremity with wound dressing Neuro: Alert, oriented x 3, gross neurological examination did not reveal any focal deficits. Cranial nerves II to XII grossly intact. Psych: Appropriate affect and mood Assessment and Plan: Active #. Right foot abscess status post incision and drainage, status post wound VAC #. Diabetic foot infection #. Leukocytosis, resolved ID following Wound care following Currently on Unasyn IV, plan for daptomycin and oral Flagyl at the time of discharge #. CHAVO on CKD stage III, now on dialysis #. Acute hypoxic respiratory failure, resolved #. Acute on chronic systolic CHF exacerbation #. COPD, without exacerbation #. Iron deficiency anemia and anemia of chronic disease #. Hyponatremia, resolved Nephrology following Torsemide 40mg daily Hemodialysis [facility] Monitor electrolytes Darbepoetin subcutaneous every 7 days, also status post 1 unit of PRBCs during this admission No active bleeding Continue Coreg 6.25 twice daily, will need further guideline directed medical therapy #. Type 2 diabetes Levemir 60 units nightly Insulin aspart 10 units 3 times daily Sliding scale insulin Monitor for hypoglycemia #. Acute urinary retention Tamsulosin 0.4 mg daily Chronic: GERD DVT prophylaxis: Subcu heparin GI prophylaxis: Protonix 40 mg PO daily Code status: Full code with instructions Anticipated discharge place: Pending clinical course Anticipated discharge time: Pending clinical course Objective - Vital Signs Vital signs: Vital Signs Temp 98.2 F 07/11/24 08:00 Pulse 83 07/11/24 08:00 Resp 22 07/11/24 08:00 BP 136/81 07/11/24 08:00 Pulse Ox 94 L 07/11/24 08:00 FiO2 21 06/17/24 08:44 Intake & Output 07/10/24 07/11/24 07/11/24 18:59 06:59 18:59 Intake Total 354 Output Total 1100 Balance 354 -1100 Weight 384.5 kg Intake: Oral 354 Output: Urine 1100 Other: Voiding Method Urinal # Voids 2 # Bowel Movements 1 - Labs CBC & Chem 7: 07/11/24 05:39 07/11/24 05:39 Labs: Abnormal Lab Results - Last 24 Hours (Table) 07/10/24 07/10/24 07/10/24 Range/Units 12:14 17:31 20:18 RBC (4.40-5.60) X 10*6/uL Hgb (13.0-17.0) g/dL Hct (39.6-50.0) % MCHC (32.0-37.0) g/dL RDW (11.5-14.5) % Lymphocytes # (0.90-5.00) X 10*3/uL Eosinophils # (0.04-0.35) X 10*3/uL Sodium (135-145) mmol/L Anion Gap (4.00-12.00) mmol/L BUN (9.0-27.0) mg/dL Creatinine (0.6-1.5) mg/dL Est GFR (CKD-EPI) (>=60) BUN/Creatinine Ratio (12.00-20.00) Ratio Glucose (70-110) mg/dL POC Glucose (mg/dL) 142 H 180 H 162 H (70-110) mg/dL 07/11/24 07/11/24 07/11/24 Range/Units 05:25 05:39 05:39 RBC 3.23 L (4.40-5.60) X 10*6/uL Hgb 8.8 L (13.0-17.0) g/dL Hct 29.2 L (39.6-50.0) % MCHC 30.1 L (32.0-37.0) g/dL RDW 16.2 H (11.5-14.5) % Lymphocytes # 0.81 L (0.90-5.00) X 10*3/uL Eosinophils # 0.54 H (0.04-0.35) X 10*3/uL Sodium 133 L (135-145) mmol/L Anion Gap 13.40 H (4.00-12.00) mmol/L BUN 51.1 H (9.0-27.0) mg/dL Creatinine 4.3 H (0.6-1.5) mg/dL Est GFR (CKD-EPI) 16 L (>=60) BUN/Creatinine Ratio 11.88 L (12.00-20.00) Ratio Glucose 169 H (70-110) mg/dL POC Glucose (mg/dL) 194 H (70-110) mg/dL
[2024-07-11 12:13] LABS: Glucose,Whole Blood 206 mg/dL (70-110)
--- NOTE | 2024-07-11 12:52 | P.PN ---
Subjective Progress Note Date: 07/11/24 Patient is seen in follow-up for acute kidney injury on chronic kidney disease. Started on hemodialysis June 13, 2024. Planning discharge to rehab and HD in [place] tomorrow. Vital signs are stable. General: No acute distress. HEENT: Head exam is unremarkable. On room air. LUNGS: No audible rhonchi or wheezes. HEART: Rate and Rhythm are regular. ABDOMEN: Obese, nontender. EXTREMITITES: 1+ edema. Chronic changes noted. Objective - Vital Signs Vital signs: Vital Signs Temp 98.2 F 07/11/24 08:00 Pulse 83 07/11/24 08:00 Resp 22 07/11/24 08:00 BP 136/81 07/11/24 08:00 Pulse Ox 94 L 07/11/24 08:00 FiO2 21 06/17/24 08:44 Intake & Output 07/10/24 07/11/24 07/11/24 18:59 06:59 18:59 Intake Total 354 Output Total 1100 Balance 354 -1100 Weight 384.5 kg Intake: Oral 354 Output: Urine 1100 Other: Voiding Method Urinal Urinal # Voids 2 # Bowel Movements 1 - Labs CBC & Chem 7: 07/11/24 05:39 07/11/24 05:39 Labs: Abnormal Lab Results - Last 24 Hours (Table) 07/10/24 07/10/24 07/10/24 Range/Units 12:14 17:31 20:18 RBC (4.40-5.60) X 10*6/uL Hgb (13.0-17.0) g/dL Hct (39.6-50.0) % MCHC (32.0-37.0) g/dL RDW (11.5-14.5) % Lymphocytes # (0.90-5.00) X 10*3/uL Eosinophils # (0.04-0.35) X 10*3/uL Sodium (135-145) mmol/L Anion Gap (4.00-12.00) mmol/L BUN (9.0-27.0) mg/dL Creatinine (0.6-1.5) mg/dL Est GFR (CKD-EPI) (>=60) BUN/Creatinine Ratio (12.00-20.00) Ratio Glucose (70-110) mg/dL POC Glucose (mg/dL) 142 H 180 H 162 H (70-110) mg/dL 07/11/24 07/11/24 07/11/24 Range/Units 05:25 05:39 05:39 RBC 3.23 L (4.40-5.60) X 10*6/uL Hgb 8.8 L (13.0-17.0) g/dL Hct 29.2 L (39.6-50.0) % MCHC 30.1 L (32.0-37.0) g/dL RDW 16.2 H (11.5-14.5) % Lymphocytes # 0.81 L (0.90-5.00) X 10*3/uL Eosinophils # 0.54 H (0.04-0.35) X 10*3/uL Sodium 133 L (135-145) mmol/L Anion Gap 13.40 H (4.00-12.00) mmol/L BUN 51.1 H (9.0-27.0) mg/dL Creatinine 4.3 H (0.6-1.5) mg/dL Est GFR (CKD-EPI) 16 L (>=60) BUN/Creatinine Ratio 11.88 L (12.00-20.00) Ratio Glucose 169 H (70-110) mg/dL POC Glucose (mg/dL) 194 H (70-110) mg/dL Assessment and Plan Assessment: 1. Acute kidney injury secondary to ATN secondary to cardiorenal syndrome as well as contrast associated acute kidney injury. Patient received IV contrast on June 07, 2024. Creatinine 1.8 on admission and was over 6 this admission. Kidney ultrasound showed no evidence of hydronephrosis. Started on hemodialysis June 13, 2024 via temporary right IJ catheter. Now has permacath. Creatinine 4.0 with GFR of 17 prior to dialysis July 07, 2024. 2. Chronic kidney disease stage IIIb with baseline creatinine 1.8-2 secondary to diabetic kidney disease. 3. Acute on chronic systolic CHF ejection fraction of 30 to 35%. 4. Diabetes mellitus. 5. Anemia of chronic kidney disease. Iron deficiency noted. Status post IV iron. On Aranesp. 6. Hypervolemic hyponatremia. Improved with dialysis. 7. Volume overload. Improving with diuresis and ultrafiltration. 8. Chronic kidney disease mineral bone disease. Phosphorus level 5.3 dated July 02, 2024. On Phos. Plan: Hemodialysis on Thursday schedule. Maintain torsemide. Avoid nephrotoxins. Discharged [facility] and HD [place] tomorrow after HD
[2024-07-11 17:19] LABS: Glucose,Whole Blood 166 mg/dL (70-110)
[2024-07-11 20:27] LABS: Glucose,Whole Blood 257 mg/dL (70-110)
[2024-07-12 05:56] LABS: Glucose,Whole Blood 157 mg/dL (70-110)
[2024-07-12 12:39] LABS: Glucose,Whole Blood 134 mg/dL (70-110)
--- NOTE | 2024-07-12 13:03 | P.DS ---
Providers Date of admission: 06/07/24 20:47 Expected date of discharge: 07/12/24 Attending physician: Nayeli Mbary MD Consults: 06/07/24 20:45 Consult Physician Routine Consulting Provider: Patrick Moreno Consult Reason/Comments: CHF exacerbation Do you want consulting provider notified?: Yes 06/09/24 12:01 Consult Physician Routine Consulting Provider: Kirsty Esparza Consult Reason/Comments: CHAVO CKD Do you want consulting provider notified?: Yes 06/13/24 09:24 Consult Physician Routine Consulting Provider: Tamir Sanchez Consult Reason/Comments: temporary dialysis catheter placement Do you want consulting provider notified?: Yes 06/16/24 11:43 Consult Physician Routine Consulting Provider: Hieu Alfred Consult Reason/Comments: diabetic right foot cellulitis Do you want consulting provider notified?: Yes 06/16/24 15:20 Consult Physician Urgent Consulting Provider: Tamir Sanchez Consult Reason/Comments: incision and drainage of right foot wound Do you want consulting provider notified?: Yes 06/20/24 09:52 Consult Physician Routine Consulting Provider: Tamir Sanchez Consult Reason/Comments: permenant HD catheter Do you want consulting provider notified?: Yes Primary care physician: [facility] Hospital Course: 54-year-old male with a PMH of systolic CHF (EF 20 to 25%), asthma, COPD, diabetes mellitus, and CKD stage 3B presents with complaints of shortness of breath with orthopnea and cough. In the ED he underwent extensive evaluation. BP 166/102, HR 100, RR 20, T 99F, 96% on RA. CBC, Coag panel, CMP significant for WBC 12.9, RBC 4.27, Hg 12.3, APTT 33.5, Na 129, BUN 28, Cr 1.8, glu 254, Ca 8. BNP 11993. Troponin 0.081, 0.087, 0.08. D-Dimer 1.34. CTA chest no evidence of PE, bronchial wall thickening, left upper lung pulmonary nodule measuring 8 mm, hepatic steatosis. Patient was admitted for further workup and management. Started on Bumex IV and Cardiology consulted. Worsening renal function, Nephrology consulted, temporary HD catheter inserted by Vascular surgery and started on HD on 06/13. Continued diuresis with Lasix IV, patient making minimal urine output, permanent HD catheter placed on 06/20. Would care consulted for RLE wound, started on silver alginate to be replaced every other day with simple gauze and CONSTANTINE wrap. Concerns for infection of the right foot, started on Zosyn and ID consulted on 06/16. Daptomycin and Flagyl was added. He underwent debridement of necrotic wound right foot plantar aspect measurement is 6 x [address] Sanchez on 06/17. Wound cultures grew Enterococcus faecalis, Strep agalactiae, Helcoccus kunzii, Corynebacterium striatum and Prevotella disiens. Antibiotics switched to Unasyn and ID recommended Augmentin x 10 days on discharge. 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 07/12 Patient was seen and examined. No acute events overnight. Undergoing HD today. Maintained on Unasyn. Discharge Plans: Discussed with Dr. Alfred, plans for Augmentin x 10 days on discharge. Follow up with PCP within 1-2 days of discharge. Follow up with Wound Care within 1 week of discharge. Wound vac to be managed by Wound Care. Follow up with Cardiology within 1 week of discharge. General: non toxic, no distress, appears at stated age, morbidly obese Derm: warm, dry Head: atraumatic, normocephalic, symmetric Eyes: EOMI, no lid lag, anicteric sclera Mouth: no lip lesion, mucus membranes moist Cardiovascular: S1S2 reg, no murmur Lungs: Decreased BS bilateral, no rhonchi, no rales , no accessory muscle use Ext: no gross muscle atrophy, 2+ edema with chronic ulcers and venous stasis changes bilaterally, no contractures,wound vac intact. Neuro: no focal neuro deficits Psych: Alert, oriented, appropriate affect Discharge Diagnosis: Necrotic wound right foot, Right foot abscess status post incision and drainage, status post wound VAC CHAVO on CKD stage IIIb Acute on chronic hypoxic respiratory failure secondary to CHF exacerbation Acute on chronic systolic CHF (EF 20 to 25%), NYHA class III COPD without exacerbation Anemia of chronic disease in the setting of renal disease Hyponatremia Diabetes mellitus This complex discharge took 46 minutes to complete. Patient Condition at Discharge: Stable Plan - Discharge Summary Discharge Rx Participant: No New Discharge Prescriptions: New Amoxic-Pot Clav 875-125Mg [Augmentin 875-125] 1 each PO Q12HR 10 Days tab Calamine/Zinc Oxide Lotion [Calamine Lotion] 1 applic TOPICAL BID PRN each PRN Reason: Skin Irritation carvediloL [Coreg] 6.25 mg PO BID-W/MEALS tab Ipratropium-Albuterol Nebulize [Duoneb 0.5 mg-3 mg/3 ml Soln] 3 ml INHALATION RT-QID each Ipratropium-Albuterol Nebulize [Duoneb 0.5 mg-3 mg/3 ml Soln] 3 ml INHALATION RT-Q2H PRN each PRN Reason: Shortness Of Breath Or Wheezing Tamsulosin [Flomax] 0.4 mg PO DAILY cap Hydrocortisone Cream [Hydrocortisone 1% Cream] 1 applic TOPICAL BID PRN each PRN Reason: Skin Irritation Insulin Detemir (Levemir) [Levemir] 60 unit SQ HS each Magnesium Oxide [Mag-Ox] 400 mg PO DAILY tab Acetaminophen Tab [Tylenol] 650 mg PO Q6HR PRN tab PRN Reason: Fever And/ Or Pain INSULIN ASPART (NovoLOG) [NovoLOG (formulary)] 10 unit SQ AC-TID each Calcium Acetate [PhosLo] 667 mg PO TID-W/MEALS tab Pantoprazole [Protonix] 40 mg PO DAILY@0730 tab Continue Atorvastatin [Lipitor] 80 mg PO HS #30 tab Aspirin EC [Ecotrin Low Dose] 81 mg PO DAILY Fluticasone Propion/Salmeterol [Wixela 250-50 Inhub] 1 puff INHALATION RT-BID Bumetanide [BUMEX] 1 mg PO AC-BID amLODIPine [Norvasc] 10 mg PO DAILY #90 tab Ergocalciferol (Vitamin D2) [Drisdol (50,000 Iu)] 1,250 mcg PO Q7D Losartan [Cozaar] 50 mg PO DAILY #60 tab Discontinued Ipratropium/Albuterol Sulfate [Combivent Respimat Inhaler] 1 puff INHALATION RT-QID Omeprazole 20 mg PO DAILY carvediloL 37.5 mg PO BID-W/MEALS Insulin Glargine,Hum.rec.anlog [Lantus Solostar Pen] 55 units SQ BID #2 each Insulin Aspart [NovoLOG Flexpen] 6 units SQ AC-TID #1 each Discharge Medication List Atorvastatin [Lipitor] 80 mg PO HS #30 tab 02/27/16 [Rx] Aspirin EC [Ecotrin Low Dose] 81 mg PO DAILY 10/17/20 [History] Fluticasone Propion/Salmeterol [Wixela 250-50 Inhub] 1 puff INHALATION RT-BID 01/15/22 [History] Bumetanide [BUMEX] 1 mg PO AC-BID 01/23/24 [History] Ergocalciferol (Vitamin D2) [Drisdol (50,000 Iu)] 1,250 mcg PO Q7D 01/23/24 [History] Losartan [Cozaar] 50 mg PO DAILY #60 tab 02/01/24 [Rx] amLODIPine [Norvasc] 10 mg PO DAILY #90 tab 02/01/24 [Rx] Acetaminophen Tab [Tylenol] 650 mg PO Q6HR PRN tab 07/12/24 [Rx] Amoxic-Pot Clav 875-125Mg [Augmentin 875-125] 1 each PO Q12HR 10 Days tab 07/12/24 [Rx] Calamine/Zinc Oxide Lotion [Calamine Lotion] 1 applic TOPICAL BID PRN each 07/12/24 [Rx] Calcium Acetate [PhosLo] 667 mg PO TID-W/MEALS tab 07/12/24 [Rx] Hydrocortisone Cream [Hydrocortisone 1% Cream] 1 applic TOPICAL BID PRN each 07/12/24 [Rx] INSULIN ASPART (NovoLOG) [NovoLOG (formulary)] 10 unit SQ AC-TID each 07/12/24 [Rx] Insulin Detemir (Levemir) [Levemir] 60 unit SQ HS each 07/12/24 [Rx] Ipratropium-Albuterol Nebulize [Duoneb 0.5 mg-3 mg/3 ml Soln] 3 ml INHALATION RT-Q2H PRN each 07/12/24 [Rx] Ipratropium-Albuterol Nebulize [Duoneb 0.5 mg-3 mg/3 ml Soln] 3 ml INHALATION RT-QID each 07/12/24 [Rx] Magnesium Oxide [Mag-Ox] 400 mg PO DAILY tab 07/12/24 [Rx] Pantoprazole [Protonix] 40 mg PO DAILY@0730 tab 12/31/24 [Rx] Tamsulosin [Flomax] 0.4 mg PO DAILY cap 07/12/24 [Rx] carvediloL [Coreg] 6.25 mg PO BID-W/MEALS tab 07/12/24 [Rx] Follow up Appointment(s)/Referral(s): [facility] [NON-STAFF] - 1 Week Hieu Alfred MD [STAFF PHYSICIAN] - 1 Week Steven Kauffman MD [STAFF PHYSICIAN] - 1 Week [facility] [Primary Care Provider] - 1-2 days Activity/Diet/Wound Care/Special Instructions: DIALYSIS: [id number] at 1030 ARRIVAL FOR 07.14.24 AT 1000 [facility] ([id number] D-F) - [address] [facility] [[email or web address]] [address] [place] [address] Janessa P: [phone] [facility] FACILITY: [facility] - [address] [place] [address] Discharge Disposition: TRANSFER TO SNF/ECF
--- NOTE | 2024-07-12 15:17 | P.PN ---
Subjective Progress Note Date: 07/11/24 Principal diagnosis: Reason for follow-up is right diabetic foot infection Patient is a 54-year-old male with a past medical history significant for COPD diabetes mellitus [place] sleep apnea presenting the hospital initially for evaluation of increasing shortness of breath patient also have a right diabetic foot ulcer being treated by the wound care noticed to have worsening diagnosed with an abscess prompting this consultation patient is status post extensive surgical debridement which was sent down to the fascia and tendon. On today's evaluation that is 07/11/2024, patient has been afebrile, patient is breathing comfortably and is currently on room air, patient denies having any significant cough no chest pain, patient denies nausea vomiting or diarrhea and no abdominal pain or pain to the right foot Patient did have white count of 6.31, creatinine is 4.3 Objective - Vital Signs Vital signs: Vital Signs Temp 98.2 F 07/11/24 08:00 Pulse 80 07/11/24 12:47 Resp 22 07/11/24 08:00 BP 136/81 07/11/24 08:00 Pulse Ox 94 L 07/11/24 08:00 FiO2 21 06/17/24 08:44 Intake & Output 07/10/24 07/11/24 07/11/24 18:59 06:59 18:59 Intake Total 354 Output Total 1100 Balance 354 -1100 Weight 384.5 kg Intake: Oral 354 Output: Urine 1100 Other: Voiding Method Urinal Urinal # Voids 2 # Bowel Movements 1 - Exam GENERAL DESCRIPTION: Middle-age male lying in bed in no distress RESPIRATORY SYSTEM: Unlabored breathing , decreased breath sounds at bases HEART: S1 S2 regular rate and rhythm , ABDOMEN: Soft , no tenderness EXTREMITIES: Right foot wound currently dressed no drainage - Labs CBC & Chem 7: 07/11/24 05:39 07/11/24 05:39 Labs: Abnormal Lab Results - Last 24 Hours (Table) 07/10/24 07/10/24 07/11/24 Range/Units 17:31 20:18 05:25 RBC (4.40-5.60) X 10*6/uL Hgb (13.0-17.0) g/dL Hct (39.6-50.0) % MCHC (32.0-37.0) g/dL RDW (11.5-14.5) % Lymphocytes # (0.90-5.00) X 10*3/uL Eosinophils # (0.04-0.35) X 10*3/uL Sodium (135-145) mmol/L Anion Gap (4.00-12.00) mmol/L BUN (9.0-27.0) mg/dL Creatinine (0.6-1.5) mg/dL Est GFR (CKD-EPI) (>=60) BUN/Creatinine Ratio (12.00-20.00) Ratio Glucose (70-110) mg/dL POC Glucose (mg/dL) 180 H 162 H 194 H (70-110) mg/dL 07/11/24 07/11/24 07/11/24 Range/Units 05:39 05:39 12:11 RBC 3.23 L (4.40-5.60) X 10*6/uL Hgb 8.8 L (13.0-17.0) g/dL Hct 29.2 L (39.6-50.0) % MCHC 30.1 L (32.0-37.0) g/dL RDW 16.2 H (11.5-14.5) % Lymphocytes # 0.81 L (0.90-5.00) X 10*3/uL Eosinophils # 0.54 H (0.04-0.35) X 10*3/uL Sodium 133 L (135-145) mmol/L Anion Gap 13.40 H (4.00-12.00) mmol/L BUN 51.1 H (9.0-27.0) mg/dL Creatinine 4.3 H (0.6-1.5) mg/dL Est GFR (CKD-EPI) 16 L (>=60) BUN/Creatinine Ratio 11.88 L (12.00-20.00) Ratio Glucose 169 H (70-110) mg/dL POC Glucose (mg/dL) 206 H (70-110) mg/dL Assessment and Plan (1) Diabetic foot infection Status: Acute Code(s): E11.628 - TYPE 2 DIABETES MELLITUS WITH OTHER SKIN COMPLICATIONS; L08.9 - LOCAL INFECTION OF THE SKIN AND SUBCUTANEOUS TISSUE, UNSP SNOMED Code(s): 001672852 (2) Foot abscess, right Status: Acute Code(s): L02.611 - CUTANEOUS ABSCESS OF RIGHT FOOT SNOMED Code(s): 69217784727304834 Plan: 1patient with a chronic nonhealing wound on the plantar aspect of the right foot now with evidence of significant foul-smelling drainage and fluctuation co ncerning for an abscess with the x-ray suggestive of possible gas-forming pathogen we will need to cover for the polymicrobial birdie associated with diabetic foot infection. 2patient is status post surgical debridement of the right foot abscess extending down to the fascia and tendon and deep culture which are currently growing Enterococcus faecalis strep anaerobes 3patient local wound care with dry Aquacel silver dressing dry patient patient with continued with Unasyn while inpatient Dictation was produced using [employer] dictation software. please excuse any grammatical, word or spelling errors. Time with Patient: Less than 30
--- NOTE | 2024-07-12 15:18 | P.PN ---
Subjective Progress Note Date: 07/12/24 Principal diagnosis: Reason for follow-up is right diabetic foot infection Patient is a 54-year-old male with a past medical history significant for COPD diabetes mellitus [place] sleep apnea presenting the hospital initially for evaluation of increasing shortness of breath patient also have a right diabetic foot ulcer being treated by the wound care noticed to have worsening diagnosed with an abscess prompting this consultation patient is status post extensive surgical debridement which was sent down to the fascia and tendon. On today's evaluation that is 07/12/2024, Patient is afebrile this morning patient denies having any chest pain shortness of breath or cough, the patient is currently on room air, patient denies any abdominal pain no diarrhea no nausea no vomiting, no new symptoms No new labs has been obtained today Objective - Vital Signs Vital signs: Vital Signs Temp 97.9 F 07/12/24 08:00 Pulse 79 07/12/24 08:00 Resp 15 07/12/24 08:00 BP 133/86 07/12/24 08:00 Pulse Ox 96 07/12/24 08:00 FiO2 21 06/17/24 08:44 Intake & Output 07/11/24 07/12/24 07/12/24 18:59 06:59 18:59 Intake Total 1520 Output Total 450 350 Balance 1070 -350 Weight 385.1 kg Intake: Oral 1520 Output: Urine 450 350 Other: Voiding Method Urinal Urinal Urinal # Voids 1 - Exam GENERAL DESCRIPTION: Middle-age male lying in bed in no distress RESPIRATORY SYSTEM: Unlabored breathing , decreased breath sounds at bases HEART: S1 S2 regular rate and rhythm , ABDOMEN: Soft , no tenderness EXTREMITIES: Right foot wound currently dressed no drainage - Labs CBC & Chem 7: 07/11/24 05:39 07/11/24 05:39 Labs: Abnormal Lab Results - Last 24 Hours (Table) 07/11/24 07/11/24 07/11/24 Range/Units 12:11 17:16 20:25 POC Glucose (mg/dL) 206 H 166 H 257 H (70-110) mg/dL 07/12/24 Range/Units 05:53 POC Glucose (mg/dL) 157 H (70-110) mg/dL Assessment and Plan (1) Diabetic foot infection Status: Acute Code(s): E11.628 - TYPE 2 DIABETES MELLITUS WITH OTHER SKIN COMPLICATIONS; L08.9 - LOCAL INFECTION OF THE SKIN AND SUBCUTANEOUS TISSUE, UNSP SNOMED Code(s): 447994133 (2) Foot abscess, right Status: Acute Code(s): L02.611 - CUTANEOUS ABSCESS OF RIGHT FOOT SNOMED Code(s): 43890139526079051 Plan: 1patient with a chronic nonhealing wound on the plantar aspect of the right foot now with evidence of significant foul-smelling drainage and fluctuation concerning for an abscess with the x-ray suggestive of possible gas-forming pathogen we will need to cover for the polymicrobial birdie associated with diabetic foot infection. 2patient is status post surgical debridement of the right foot abscess extending down to the fascia and tendon and deep culture which are currently growing Enterococcus faecalis strep anaerobes 3patient local wound care with dry Aquacel silver dressing dry, patient received adequate IV Unasyn during this hospital stay short course of oral Augmentin on discharge discussed with the medical team working on discharge Dictation was produced using [employer] dictation software. please excuse any grammatical, word or spelling errors. Time with Patient: Less than 30
[2024-07-12 16:12] VITALS: BP 169/90; PULSE 71; RESP 16; TEMP 98
[2024-07-12] MEDS ORDERED: AMOXIC-POT CLAV 875-125MG 1 EACH TAB PO SCH (21:00)
--- NOTE | 2024-07-13 13:24 | P.PN ---
Subjective Patient is seen for follow-up for acute kidney injury currently maintained on hemodialysis. Status post hemodialysis today. Plans for discharge today. Objective - Vital Signs Vital signs: Vital Signs Temp 98 F 07/12/24 16:10 Pulse 71 07/12/24 16:10 Resp 16 07/12/24 16:10 BP 169/90 07/12/24 16:10 Pulse Ox 96 07/12/24 08:00 FiO2 21 06/17/24 08:44 Intake & Output 07/12/24 07/13/24 07/13/24 18:59 06:59 18:59 Intake Total 750 Output Total 5250 Balance -4500 Intake: Hemodialysis 750 Output: Hemodialysis 3000 Hemodialysis Net Amount 2250 Other: Voiding Method Urinal - Exam Patient is sleeping but arousable. No acute distress. Abdomen is morbidly obese Bilateral lower extremities show chronic skin changes, right foot wound with wound VAC - Labs CBC & Chem 7: 07/11/24 05:39 07/11/24 05:39 Assessment and Plan Assessment: 1. Acute kidney injury secondary to ATN secondary to cardiorenal syndrome as well as contrast associated acute kidney injury. Patient received IV contrast on June 07, 2024. Creatinine 1.8 on admission and up to 5.69 dated June 13, 2024. Kidney ultrasound showed no evidence of hydronephrosis. Started on hemodialysis June 13, 2024 via temporary right IJ catheter. Urine output has increased significantly but serum creatinine remains elevated at 5-6 mg/dL,, therefore he continues with renal replacement therapy.. 2. Chronic kidney disease stage IIIb with baseline creatinine 1.8-2 secondary to diabetic kidney disease. 3. Acute on chronic systolic CHF ejection fraction of 30 to 35%. 4. Diabetes mellitus. 5. Anemia of chronic kidney disease. Iron deficiency noted. Status post IV iron. On Aranesp. 6. Hypervolemic hyponatremia. Stable. 7. Volume overload. Improving with diuresis and ultrafiltration. 8. Chronic kidney disease mineral bone disease. Plan: Continue with hemodialysis at rehab facility. Continue to monitor for recovery of renal function as urine output has not.
== END 2024-07-12 14:55 | DRG 981 ==
LOC: EC 11:56 → 3SCARD 20:46 → OBSVTOIN 20:47 → 3SCARD 22:59 → 6NMEDSUR 06-17 19:49
PROVIDERS: ADMIT Internal Medicine; ATTEND Internal Medicine
PROC: 02HV33Z Insertion of Infusion Device into Superior Vena Cava, Percutaneous Approach (ICD-10-PCS; 2024-06-13)
PROC: 5A1D70Z Performance of Urinary Filtration, Intermittent, Less than 6 Hours Per Day (ICD-10-PCS; 2024-06-13)
PROC: 0LBV0ZZ Excision of Right Foot Tendon, Open Approach (ICD-10-PCS; principal; 2024-06-17 11:25)
PROC: 02HV33Z Insertion of Infusion Device into Superior Vena Cava, Percutaneous Approach (ICD-10-PCS; 2024-06-21)
PROC: 0JH63XZ Insertion of Tunneled Vascular Access Device into Chest Subcutaneous Tissue and Fascia, Percutaneous Approach (ICD-10-PCS; 2024-06-21 14:30)
DX: I13.0 Hypertensive heart and chronic kidney disease with heart failure and stage 1 through stage 4 chronic kidney disease, or unspecified chronic kidney disease (principal); I21.A1 Myocardial infarction type 2; I50.23 Acute on chronic systolic (congestive) heart failure; J96.21 Acute and chronic respiratory failure with hypoxia; N17.0 Acute kidney failure with tubular necrosis; L03.115 Cellulitis of right lower limb; E11.52 Type 2 diabetes mellitus with diabetic peripheral angiopathy with gangrene; I96 Gangrene, not elsewhere classified; E87.1 Hypo-osmolality and hyponatremia; Z68.43 Body mass index [BMI] 50.0-59.9, adult; L97.222 Non-pressure chronic ulcer of left calf with fat layer exposed; L02.611 Cutaneous abscess of right foot; Z16.24 Resistance to multiple antibiotics; E11.22 Type 2 diabetes mellitus with diabetic chronic kidney disease; E11.622 Type 2 diabetes mellitus with other skin ulcer; E11.628 Type 2 diabetes mellitus with other skin complications; E11.65 Type 2 diabetes mellitus with hyperglycemia; J44.89 Other specified chronic obstructive pulmonary disease; E66.01 Morbid (severe) obesity due to excess calories; D63.1 Anemia in chronic kidney disease; I25.5 Ischemic cardiomyopathy; G47.33 Obstructive sleep apnea (adult) (pediatric); L97.512 Non-pressure chronic ulcer of other part of right foot with fat layer exposed; M89.8X9 Other specified disorders of bone, unspecified site; N30.90 Cystitis, unspecified without hematuria; N14.11 Contrast-induced nephropathy; R33.9 Retention of urine, unspecified; K21.9 Gastro-esophageal reflux disease without esophagitis; D50.9 Iron deficiency anemia, unspecified; N18.32 Chronic kidney disease, stage 3b; I25.10 Atherosclerotic heart disease of native coronary artery without angina pectoris; T50.2X5A Adverse effect of carbonic-anhydrase inhibitors, benzothiadiazides and other diuretics, initial encounter; Z88.1 Allergy status to other antibiotic agents; Z79.4 Long term (current) use of insulin; Z87.891 Personal history of nicotine dependence; Z79.82 Long term (current) use of aspirin; I25.2 Old myocardial infarction; Z86.74 Personal history of sudden cardiac arrest; Z99.2 Dependence on renal dialysis; Z95.5 Presence of coronary angioplasty implant and graft
CPT/HCPCS: 36410; 36415; 36556; 36558; 71045; 71046; 71275; 76770; 76937; 77001; 80048; 80053; 81001; 82570; 82728; 83036; 83540; 83550; 83605; 83735; 83880; 84100; 84300; 84484; 84540; 85025; 85027; 85379; 85610; 85730; 86704; 86706; 86850; 86900; 86901; 86920; 87070; 87075; 87077; 87086; 87186; 87205; 87340; 87636; 90935; 93005; 93306; 94640; 94760; 96361; 96372; 96374; 96375; 96376; 99285

== ENCOUNTER 2025-01-15 15:35 | Inpatient (IN) | payer OTHER, MEDICARE ==
[2025-01-15] MEDS ORDERED: VANCOMYCIN IV PER PHARMACY 1 EACH MISC MISCELLANE PRN (16:21)
--- NOTE | 2025-01-15 16:22 | ED ---
Fever HPI - General Chief Complaint: Recheck/Abnormal Lab/Rx Stated Complaint: Infection Time Seen by Provider: 01/15/25 16:20 Source: patient, RN notes reviewed, old records reviewed Mode of arrival: EMS Limitations: no limitations - History of Present Illness Initial Comments: This is a 55-year-old male with a recent hospital discharge. Patient does have known ulcerations and lower extremity cellulitis he was supposed to be receiving outpatient treatment and wound care he has not been receiving that pain and have not been changing quite some time he does not know the exact date of last change. Patient's bandages are significantly soiled with significant smelling and malodorous drainage coming from both legs. Patient feels warm hot chills wi th mild sweating MD Complaint: fever, malaise -: days(s) Temperature Source: subjective Associated Symptoms: chills, myalgias, other (Leg pain and swelling) Treatments Prior to Arrival: none - Related Data Home Medications Medication Instructions Recorded Confirmed Insulin Aspart [Insulin Aspart 10 unit SQ AC-TID 01/16/25 01/16/25 Flexpen] Insulin Glargine (Lantus) [Lantus 40 unit SQ BID 01/16/25 01/16/25 Vial] Allergies Allergy/AdvReac Type Severity Reaction Status Date / Time tetracycline Allergy Rash/Hives Verified 01/16/25 10:37 Review of Systems ROS Statement: Those systems with pertinent positive or pertinent negative responses have been documented in the HPI. ROS Other: All systems not noted in ROS Statement are negative. Past Medical History Past Medical History: Asthma, Heart Failure, COPD, Diabetes Mellitus, Deep Vein Thrombosis (DVT), Myocardial Infarction ([place]), Sleep Apnea/CPAP/BIPAP, Vascular Disorder Additional Past Medical History / Comment(s): 02/20/16 [place] with cardiac [id number]-bo wore life vest for 7 weeks, 2010 DVT RIGHT leg, bilateral lower leg cellulitis, bilateral varicose veins, PVD, NIDDM type II, BERTRAND with CPAP. UTI Mar 2021, cellulitis with open wounds on bilateral lower legs being treated in wound center pilar bhakta 2020 Last Myocardial Infarction Date:: 02/20/16 History of Any Multi-Drug Resistant Organisms: MRSA Date of last positivie culture/infection: 2017 MDRO Source:: bilateral legs Past Surgical History: Heart Catheterization With Stent Additional Past Surgical History / Comment(s): circumcision Additional Past Anesthesia/Blood Transfusion Reaction / Comment(s): Pt has never had anesthesia Date of Last Stent Placement:: 02/20/16 Past Psychological History: No Psychological Hx Reported Smoking Status: Former smoker Past Alcohol Use History: None Reported Past Drug Use History: None Reported - Past Family History Father Family Medical History: Coronary Artery Disease (CAD), Diabetes Mellitus, Eye Disorder Additional Family Medical History / Comment(s): Bradycardia, blind. Father is in his early 70's. Mother Family Medical History: Coronary Artery Disease (CAD), Diabetes Mellitus Additional Family Medical History / Comment(s): Benign brain tumor. Mother is in her early 70's General Exam - General Exam Comments Initial Comments: Malodorous legs with drainage, maggot infestation Limitations: no limitations General appearance: alert, in no apparent distress Head exam: Present: atraumatic, normocephalic, normal inspection Eye exam: Present: normal appearance, PERRL, EOMI. Absent: scleral icterus, conjunctival injection, periorbital swelling ENT exam: Present: normal exam, mucous membranes moist Neck exam: Present: normal inspection. Absent: tenderness, meningismus, lymphadenopathy Respiratory exam: Present: normal lung sounds bilaterally. Absent: respiratory distress, wheezes, rales, rhonchi, stridor Cardiovascular Exam: Present: regular rate, normal rhythm, normal heart sounds. Absent: systolic murmur, diastolic murmur, rubs, gallop, clicks GI/Abdominal exam: Present: soft, normal bowel sounds. Absent: distended, tenderness, guarding, rebound, rigid Extremities exam: Present: normal inspection, full ROM, normal capillary refill. Absent: tenderness, pedal edema, joint swelling, calf tenderness Back exam: Present: normal inspection Neurological exam: Present: alert, oriented X3, CN II-XII intact Psychiatric exam: Present: normal affect, normal mood Skin exam: Present: warm, dry, intact, normal color. Absent: rash Course Vital Signs 01/15/25 01/15/25 01/15/25 15:42 15:48 18:22 Temperature 102.3 F H Pulse Rate 96 93 93 Respiratory 20 16 20 Rate Blood Pressure 97/55 97/55 149/88 O2 Sat by Pulse 95 96 98 Oximetry 01/15/25 22:13 Temperature 98.7 F Pulse Rate 82 Respiratory 18 Rate Blood Pressure 149/82 O2 Sat by Pulse 98 Oximetry - Reevaluation(s) Reevaluation #1: 01/15/25 17:07 Medical records reviewed 01/15/25 18:41 Patient was Decon secondary to maggot infestation of lower extremities Reevaluation #2: 01/15/25 18:41 Patient symptoms are unchanged here in the ER Reevaluation #3: 01/15/25 18:41 Patient informed of results and questions answered Reevaluation #4: Was pt. sent in by a medical professional or institution (, LISA, TENNIS PLAYER, urgent care, hospital, or assisted...) When possible be specific @ -no Did you speak to anyone other than the patient for history (EMS, parent, family, police, friend...)? What history was obtained from this source @ -no Did you review nursing and triage notes (agree or disagree)? Why? @ -agree Are old charts reviewed (outside hosp., previous admission, EMS record, old EKG, old radiological studies, urgent care reports/EKG's, assisted records)? Report findings @ -yes Differential Diagnosis (chest pain, altered mental status, abdominal pain women, abdominal pain men, vaginal bleeding, weakness, fever, dyspnea, syncope, head ache, dizziness, GI bleed, back pain, seizure, CVA, palpatations, mental health, musculoskeletal)? @ -prior EKG interpreted by me (3pts min.). @ -yes X-rays interpreted by me (1pt min.). @ -yes negative for acute disease CT interpreted by me (1pt min.). @ -no U/S interpreted by me (1pt. min.). @ -no What testing was considered but not performed or refused? (CT, X-rays, U/S, labs)? Why? @ -none What meds were considered but not given or refused? Why? @ -none Did you discuss the management of the patient with other professionals (professionals i.e. LISA Cannon, TENNIS PLAYER, lab, RT, psych nurse, nursing home social worker, laser specialist, teacher, customs and immigration officer, case finisher)? Give summary @ -no Was smoking cessation discussed for >3mins.? @ -no Was critical care preformed (if so, how long)? @ -yes31 Were there social determinants of health that impacted care today? How? (Homelessness, low income, unemployed, alcoholism, drug addiction, transportation, low edu. Level, literacy, decrease access to med. care, snf, rehab)? @ -none Was there de-escalation of care discussed even if they declined (Discuss DNR or withdrawal of care, Hospice)? DNR status @ -no What co-morbidities impacted this encounter? (DM, HTN, Smoking, COPD, CAD, Cancer, CVA, ARF, Chemo, Hep., AIDS, mental health diagnosis, sleep apnea, morbid obesity)? @ -none Was patient admitted / discharged? Hospital course, mention meds given and route, prescriptions, significant lab abnormalities, going to OR and other pertinent info. @ - 55 male with severe lower extremity cellulitis, fever. Sepsis. Patient be admitted for IV antibiotics Admitted Undiagnosed new problem with uncertain prognosis? @ -no Drug Therapy requiring intensive monitoring for toxicity (Heparin, Nitro, Insulin, Cardizem)? @ -no Were any procedures done? @ -no Diagnosis/symptom? @ -Severe lower extremity cellulitis with fever Acute, or Chronic, or Acute on Chronic? @ -Acute Uncomplicated (without systemic symptoms) or Complicated (systemic symptoms)? @ -Complicated Side effects of treatment? @ -no Exacerbation, Progression, or Severe Exacerbation? @ -exacerbation Poses a threat to life or bodily function? How? (Chest pain, [place], [place], pneumonia, PE, COPD, DKA, ARF, appy, cholecystitis, CVA, Diverticulitis, Homicidal, Suicidal, threat to staff... and all critical care pts) @ -yes with sepsis Reevaluation #5: Differential Fever: Pneumonia, viral URI, endocarditis, myocarditis, pericarditis, otitis, sinusitis, peritonsillar Abscess, retropharyngeal Abscess, epiglottitis, peritonitis, appendicitis, Tova cystitis, diverticulitis, hepatitis, colitis, UTI, PID, TOA, pyelonephritis, prostatitis, epididymitis, meningitis, encephalitis, pulmonary embolism, CVA, thyroid storm, pancreatitis, adrenal crisis, cavernous sinus thrombosis, this is not meant to be an all-inclusive list. - Consultations Consultation #1: Spoke with sound who agrees to admit this patient Medical Decision Making - Medical Decision Making 55 male with severe lower extremity cellulitis, fever. Sepsis. Patient be admitted for IV antibiotics - Lab Data Result diagrams: 01/20/25 03:59 01/20/25 03:59 Lab Results 01/15/25 01/15/25 01/15/25 Range/Units 16:38 16:38 16:38 WBC 11.15 H (4.50-10.00) 10*3/uL RBC 3.85 L (4.40-5.60) 10*6/uL Hgb 11.0 L (13.0-17.0) g/dL Hct 34.4 L (39.6-50.0) % MCV 89.4 (80.0-97.0) fL MCH 28.6 (27.0-32.0) pg MCHC 32.0 (32.0-37.0) g/dL Plt Count 250 (140-440) 10*3/uL MPV 10.8 (9.5-12.2) fL Immature Gran % (Auto) 0.4 % Neutrophils % 85.6 % Lymphocytes % 5.0 % Monocytes % 8.1 % Eosinophils % 0.7 % Basophils % 0.2 % Immature Gran # 0.04 (0.00-0.04) 10*3/uL Neutrophils # 9.55 H (1.80-7.70) 10*3/uL Lymphocytes # 0.56 L (0.90-5.00) 10*3/uL Monocytes # 0.90 (0.20-1.00) 10*3/uL Eosinophils # 0.08 (0.04-0.35) 10*3/uL Basophils # 0.02 (0.00-0.10) 10*3/uL Sodium 128 L (137-145) mmol/L Potassium 5.1 (3.5-5.1) mmol/L Chloride 96 L (98-107) mmol/L Carbon Dioxide 22 (22-30) mmol/L Anion Gap 10 mmol/L BUN 35 H (9-20) mg/dL Creatinine 2.69 H (0.66-1.25) mg/dL Est GFR (CKD-EPI)AfAm 30 (>60 ml/min/1.73 sqM) Est GFR (CKD-EPI)NonAf 26 (>60 ml/min/1.73 sqM) Glucose 348 H (74-99) mg/dL Lactic Ac Sepsis Rflx Plasma Lactic Acid Kannan 2.5 H* (0.7-2.0) mmol/L Calcium 8.6 (8.4-10.2) mg/dL Phosphorus 2.9 (2.5-4.5) mg/dL Magnesium 1.7 (1.6-2.3) mg/dL Total Bilirubin 1.3 (0.2-1.3) mg/dL AST 28 (17-59) U/L ALT 13 (4-49) U/L Alkaline Phosphatase 111 (38-126) U/L Total Protein 5.9 L (6.3-8.2) g/dL Albumin 2.6 L (3.5-5.0) g/dL Influenza Type A (PCR) (Not Detectd) Influenza Type B (PCR) (Not Detectd) RSV (PCR) (Not Detectd) SARS-CoV-2 (PCR) (Not Detectd) 01/15/25 01/15/25 Range/Units 16:39 17:20 WBC (4.50-10.00) 10*3/uL RBC (4.40-5.60) 10*6/uL Hgb (13.0-17.0) g/dL Hct (39.6-50.0) % MCV (80.0-97.0) fL MCH (27.0-32.0) pg MCHC (32.0-37.0) g/dL Plt Count (140-440) 10*3/uL MPV (9.5-12.2) fL Immature Gran % (Auto) % Neutrophils % % Lymphocytes % % Monocytes % % Eosinophils % % Basophils % % Immature Gran # (0.00-0.04) 10*3/uL Neutrophils # (1.80-7.70) 10*3/uL Lymphocytes # (0.90-5.00) 10*3/uL Monocytes # (0.20-1.00) 10*3/uL Eosinophils # (0.04-0.35) 10*3/uL Basophils # (0.00-0.10) 10*3/uL Sodium (137-145) mmol/L Potassium (3.5-5.1) mmol/L Chloride (98-107) mmol/L Carbon Dioxide (22-30) mmol/L Anion Gap mmol/L BUN (9-20) mg/dL Creatinine (0.66-1.25) mg/dL Est GFR (CKD-EPI)AfAm (>60 ml/min/1.73 sqM) Est GFR (CKD-EPI)NonAf (>60 ml/min/1.73 sqM) Glucose (74-99) mg/dL Lactic Ac Sepsis Rflx Y Plasma Lactic Acid Kannan (0.7-2.0) mmol/L Calcium (8.4-10.2) mg/dL Phosphorus (2.5-4.5) mg/dL Magnesium (1.6-2.3) mg/dL Total Bilirubin (0.2-1.3) mg/dL AST (17-59) U/L ALT (4-49) U/L Alkaline Phosphatase (38-126) U/L Total Protein (6.3-8.2) g/dL Albumin (3.5-5.0) g/dL Influenza Type A (PCR) Not Detected (Not Detectd) Influenza Type B (PCR) Not Detected (Not Detectd) RSV (PCR) Not Detected (Not Detectd) SARS-CoV-2 (PCR) Not Detected (Not Detectd) - EKG Data -: EKG Interpreted by Me (EKG is sinus 90 ME 187 QRS 106 QTc 409) - Radiology Data Radiology results: report reviewed (Chest x-ray x-ray tib-fib negative for acute disease), image reviewed Critical Care Time Critical Care Time: Yes Total Critical Care Time: 31 Disposition Clinical Impression: Bilateral lower leg cellulitis, Fever Disposition: ADMITTED IP TO THIS HOSP Condition: Serious Is patient prescribed a controlled substance at d/c from ED?: No Time of Disposition: 18:30
[2025-01-15 16:47] LABS: Basophils # (A) 0.02 10*3/uL (0.00-0.10); Basophils % (A) 0.2 %; Eosinophils # (A) 0.08 10*3/uL (0.04-0.35); Eosinophils % (A) 0.7 %; HCT 34.4 % (39.6-50.0); HGB 11.0 g/dL (13.0-17.0); Lymphocytes # (A) 0.56 10*3/uL (0.90-5.00); Lymphocytes % (A) 5.0 %; MCH 28.6 pg (27.0-32.0); MCHC 32.0 g/dL (32.0-37.0); MCV 89.4 fL (80.0-97.0); Monocytes # (A) 0.90 10*3/uL (0.20-1.00); Monocytes % (A) 8.1 %; Neutrophils # (A) 9.55 10*3/uL (1.80-7.70); Neutrophils % (A) 85.6 %; Platelet Count 250 10*3/uL (140-440); RBC 3.85 10*6/uL (4.40-5.60); RDW 15.2 % (11.5-14.5); WBC 11.15 10*3/uL (4.50-10.00)
[2025-01-15 17:06] LABS: ALT 13 U/L (4-49); AST 28 U/L (17-59); African American GFR (CKD) 30 (>60 ml/min/1.73 sqM); Albumin 2.6 g/dL (3.5-5.0); Alkaline Phosphatase 111 U/L (38-126); Anion Gap 10 mmol/L; Blood Urea Nitrogen 35 mg/dL (9-20); Calcium 8.6 mg/dL (8.4-10.2); Carbon Dioxide 22 mmol/L (22-30); Chloride 96 mmol/L (98-107); Glucose 348 mg/dL (74-99); Magnesium 1.7 mg/dL (1.6-2.3); Non-African American GFR(CKD) 26 (>60 ml/min/1.73 sqM); Potassium 5.1 mmol/L (3.5-5.1); Sodium 128 mmol/L (137-145); Total Protein 5.9 g/dL (6.3-8.2)
[2025-01-15 17:23] LABS: RSV Not Detected (Not Detectd)
--- NOTE | 2025-01-15 18:01 | XR ---
EXAMINATION TYPE: XR chest 2V DATE OF EXAM: 01/15/2025 5:55 PM COMPARISON: 06/20/2024 CLINICAL INDICATION: Male, 55 years old with history of cough: Shortness of breath TECHNIQUE: XR chest 2V views of the chest are obtained. FINDINGS: Scattered senescent parenchymal changes noted. Hyperinflation compatible with COPD. No evidence for infiltrate. No evidence for atelectasis. Heart size is stable. Mediastinal structures are stable and grossly unremarkable. No evidence for hilar prominence. Degenerative changes dorsal spine. IMPRESSION: 1. No evidence for acute pulmonary disease. [facility], , 01/15/2025 5:59 PM
--- NOTE | 2025-01-15 18:07 | XR ---
EXAMINATION TYPE: XR tibia fibula bilateral DATE OF EXAM: 01/15/2025 CLINICAL HISTORY: pain TECHNIQUE: AP and lateral images of the right tibia and fibula are obtained. COMPARISON: None. FINDINGS: There is no acute fracture/dislocation evident. The joint spaces appear within normal cunningham its. The overlying soft tissue appears unremarkable. IMPRESSION: There is no acute fracture or dislocation seen. ICD 10 NO FRACTURE, INITIAL EVALUATION [facility], , 01/15/2025 6:05 PM
[2025-01-15] MEDS: ACETAMINOPHEN TAB 500 MG TAB PO STA (18:08)
[2025-01-15] MEDS: IBUPROFEN 600 MG TAB PO STA (18:08)
[2025-01-15] MEDS: SODIUM CHLORIDE 0.9% 1,000 ML IV ONE (18:10)
[2025-01-15] MEDS: VANCOMYCIN 2,500 MG in SODIUM CHLORIDE 0.9% 500 ML 500 ML IVPB ONE (18:11)
[2025-01-15] MEDS: SODIUM CHLORIDE 0.9% 1,000 ML IV SCH (18:11)
[2025-01-15] MEDS ORDERED: ONDANSETRON 4 MG/2 ML VIAL IVP PRN (18:30)
[2025-01-15] MEDS ORDERED: MORPHINE SULFATE 4 MG/ML SYRINGE IV PRN (18:30)
[2025-01-15] MEDS ORDERED: NALOXONE 0.4 MG/ML 1 ML VIAL IV PRN (18:30)
--- NOTE | 2025-01-16 00:37 | P.HPIM ---
History of Present Illness H&P Date: 01/15/25 Chief Complaint: Patient seeking help with medications due to losing insurance coverage 55-year-old male with a history of end-stage renal disease on dialysis, congestive heart failure, coronary artery disease, COPD, hypertension, diabetes mellitus, and lymphedema. Patient was recently discharged from a halfway facility but was sent home without medications due to loss of Medicaid coverage. Patient reports infected, swollen, and weepy legs. He denies feeling sick otherwise but is concerned about lack of access to medications. Patient has not had dialysis s thursday and reports poor nutrition, stating he has had little to eat in the past two days. Cardiac stent placement in 2016 following a massive heart attack Patient denies current smoking or use of street drugs. Living situation and level of independence not provided.. PMHx End-stage renal disease on dialysis Congestive heart failure Coronary artery disease with history of myocardial infarction in 2016 Chronic obstructive pulmonary disease (COPD) Hypertension Diabetes mellitus, insulin-dependent Lymphedema History of stroke Review of Systems Pertinent positives as noted in HPI. All other systems were reviewed and are negative Cardiovascular: Positive for history of congestive heart failure and coronary artery disease Respiratory: History of COPD, denies current shortness of breath Renal: End-stage renal disease on dialysis Endocrine: Diabetes mellitus Integumentary: Bilateral leg swelling, weeping ulcers Constitutional: Denies feeling sick, reports poor nutrition Neurological: History of stroke, denies seizures Past Medical History Past Medical History: Asthma, Heart Failure, COPD, Diabetes Mellitus, Deep Vein Thrombosis (DVT), Myocardial Infarction ([place]), Sleep Apnea/CPAP/BIPAP, Vascular Disorder Additional Past Medical History / Comment(s): 02/20/16 [place] with cardiac arrest-[facility] b-pt wore life vest for 7 weeks, 2010 DVT RIGHT leg, bilateral lower leg cellulitis, bilateral varicose veins, PVD, NIDDM type II, BERTRAND with CPAP. UTI Mar 2021, cellulitis with open wounds on bilateral lower legs being treated in wound center pilar bhakta 2020 Last Myocardial Infarction Date:: 02/20/16 History of Any Multi-Drug Resistant Organisms: MRSA Date of last positivie culture/infection: 2017 MDRO Source:: bilateral legs Past Surgical History: Heart Catheterization With Stent Additional Past Surgical History / Comment(s): circumcision Additional Past Anesthesia/Blood Transfusion Reaction / Comment(s): Pt has never had anesthesia Date of Last Stent Placement:: 02/20/16 Past Psychological History: No Psychological Hx Reported Smoking Status: Former smoker Past Alcohol Use History: None Reported Past Drug Use History: None Reported - Past Family History Father Family Medical History: Coronary Artery Disease (CAD), Diabetes Mellitus, Eye Disorder Additional Family Medical History / Comment(s): Bradycardia, blind. Father is in his early 70's. Mother Family Medical History: Coronary Artery Disease (CAD), Diabetes Mellitus Additional Family Medical History / Comment(s): Benign brain tumor. Mother is in her early 70's Medications and Allergies Home Medications Medication Instructions Recorded Confirmed Type Atorvastatin [Lipitor] 80 mg PO HS #30 tab 02/27/16 06/07/24 Rx Aspirin EC [Ecotrin Low Dose] 81 mg PO DAILY 10/17/20 06/07/24 History Fluticasone Propion/Salmeterol 1 puff INHALATION RT-BID 01/15/22 06/07/24 History [Wixela 250-50 Inhub] Bumetanide [BUMEX] 1 mg PO AC-BID 01/23/24 06/07/24 History Ergocalciferol (Vitamin D2) 1,250 mcg PO Q7D 01/23/24 06/07/24 History [Drisdol (50,000 Iu)] Losartan [Cozaar] 50 mg PO DAILY #60 tab 02/01/24 06/07/24 Rx amLODIPine [Norvasc] 10 mg PO DAILY #90 tab 02/01/24 06/07/24 Rx Acetaminophen Tab [Tylenol] 650 mg PO Q6HR PRN tab 07/12/24 Rx Amoxic-Pot Clav 875-125Mg 1 each PO Q12HR 10 Days tab 07/12/24 Rx [Augmentin 875-125] Calamine/Zinc Oxide Lotion 1 applic TOPICAL BID PRN each 07/12/24 Rx [Calamine Lotion] Calcium Acetate [PhosLo] 667 mg PO TID-W/MEALS tab 07/12/24 Rx Hydrocortisone Cream 1 applic TOPICAL BID PRN each 07/12/24 Rx [Hydrocortisone 1% Cream] INSULIN ASPART (NovoLOG) [NovoLOG 10 unit SQ AC-TID each 07/12/24 Rx (formulary)] Insulin Detemir (Levemir) [Levemir] 60 unit SQ HS each 07/12/24 Rx Ipratropium-Albuterol Nebulize 3 ml INHALATION RT-Q2H PRN each 07/12/24 Rx [Duoneb 0.5 mg-3 mg/3 ml Soln] Ipratropium-Albuterol Nebulize 3 ml INHALATION RT-QID each 07/12/24 Rx [Duoneb 0.5 mg-3 mg/3 ml Soln] Magnesium Oxide [Mag-Ox] 400 mg PO DAILY tab 07/12/24 Rx Pantoprazole [Protonix] 40 mg PO DAILY@0730 tab 07/12/24 Rx Tamsulosin [Flomax] 0.4 mg PO DAILY cap 07/12/24 Rx carvediloL [Coreg] 6.25 mg PO BID-W/MEALS tab 07/12/24 Rx Allergies Allergy/AdvReac Type Severity Reaction Status Date / Time tetracycline Allergy Rash/Hives Verified 06/17/24 11:27 Physical Exam Vitals: Vital Signs Temp Pulse Resp BP Pulse Ox 01/15/25 22:13 98.7 F 82 18 149/82 98 01/15/25 18:22 93 20 149/88 98 01/15/25 15:48 93 16 97/55 96 01/15/25 15:42 102.3 F H 96 20 97/55 95 Intake and Output 01/15/25 01/15/25 01/16/25 14:59 22:59 06:59 Other: Weight 163.293 kg Constitutional: No acute distress, conversant, pleasant Eyes: Anicteric sclerae, moist conjunctiva, Pupils equal round reactive to light ENMT: NC/AT Oropharynx clear, no erythema, or exudates Neck: Supple, no masses, or JVD No carotid bruits No thyromegaly Lungs: Clear to auscultation Clear to percussion Normal respiratory effort, no accessory muscle use Cardiovascular: Heart regular in rate and rhythm, No murmurs, gallops, or rubs No peripheral edema Abdominal: Soft Nontender, no guarding, rebound or rigidity Abdomen moving with respiration Normoactive bowel sounds Extremities - Bilateral legs and feet swollen - +3 edema in both legs, non-pitting - Chronic skin changes bilaterally with weeping superficial ulcers - No pain or warmth to touch - No pain upon squeezing thighs - Right side more swollen than left - Bilateral dorsalis pedis arteries unable to assess - Capillary refill immediate Radial pulses intact and symmetrical No calf tenderness Psychiatric: Alert and oriented to person, place and time Appropriate affect Neuro Muscles Strength 5/5 in all 4 extremities Sensation to light touch grossly present throughout Cranial nerves II-XII grossly intact Results CBC & Chem 7: 01/15/25 16:38 01/15/25 16:38 Labs: Abnormal Lab Results - Last 24 Hours (Table) 01/15/25 01/15/25 01/15/25 Range/Units 16:38 16:38 16:38 WBC 11.15 H (4.50-10.00) 10*3/uL RBC 3.85 L (4.40-5.60) 10*6/uL Hgb 11.0 L (13.0-17.0) g/dL Hct 34.4 L (39.6-50.0) % Neutrophils # 9.55 H (1.80-7.70) 10*3/uL Lymphocytes # 0.56 L (0.90-5.00) 10*3/uL Sodium 128 L (137-145) mmol/L Chloride 96 L (98-107) mmol/L BUN 35 H (9-20) mg/dL Creatinine 2.69 H (0.66-1.25) mg/dL Glucose 348 H (74-99) mg/dL Plasma Lactic Acid Kannan 2.5 H* (0.7-2.0) mmol/L Total Protein 5.9 L (6.3-8.2) g/dL Albumin 2.6 L (3.5-5.0) g/dL Assessment and Plan Assessment: Assessment: 1. End-stage renal disease on dialysis with missed treatments 2. Chronic bilateral lower extremity lymphedema with superimposed infection 3. Congestive heart failure 4. Coronary artery disease, status post myocardial infarction with stent placement (2016) 5. Chronic obstructive pulmonary disease 6. Hypertension 7. Diabetes mellitus, insulin-dependent 8. Moderate hyponatremia 9. Malnutrition 10. Lack of access to medications due to insurance issues Plan: 1. Consult nephrology for urgent hemodialysis arrangement 2. Initiate broad-spectrum antibiotics for lower extremity infection 3. Consult wound care for management of bilateral leg ulcers 4. Consider shabbir wrapping of bilateral legs to help with wound healing 5. Continue home medications (to be clarified with patient and previous providers) 6. Monitor fluid status and electrolytes closely 7. Nutritional support and dietary consult 8. DVT prophylaxis with Lovenox dosed per body weight BID 9. Social work consult to address insurance and medication access issues 10. Arrange follow-up with primary care and specialists (cardiology, pulmonology, endocrinology) upon discharge 11. Patient education on medication adherence and importance of regular dialysis treatments 12. Consider home health services for wound care and medication management post- discharge Labs: - Sodium: 128 (moderate hyponatremia) - BUN: 35 - Creatinine: 2.69 - Potassium: 5.1 - White blood cell count: 11 - Hemoglobin: 11 Imaging: - Chest x-ray: No acute cardiopulmonary process - Bilateral leg x-rays: Negative for acute fractures EKG: Normal sinus rhythm, no acute ST changes Acute respiratory viral panel: Negative
[2025-01-16] MEDS: IPRATROPIUM-ALBUTEROL 3 ML NEB INHALATION PRN (01:04)
[2025-01-16] MEDS: INSULIN GLARGINE (LANTUS) 100 UNIT/ML SYR SQ SCH (03:24)
[2025-01-16] MEDS: BUMETANIDE 1 MG TAB PO SCH (03:24)
[2025-01-16] MEDS: ENOXAPARIN 40 MG/0.4 ML SYRINGE SQ SCH (03:24)
[2025-01-16 06:20] LABS: Glucose,Whole Blood 267 mg/dL (70-110)
[2025-01-16] MEDS: PANTOPRAZOLE 40 MG TABLET PO SCH (06:29)
[2025-01-16] MEDS ORDERED: DEXTROSE 50% SYRINGE 50 ML IVP PRN ×2 (07:00)
[2025-01-16] MEDS: INSULIN LISPRO (HumaLOG) 100 UNIT/ML 10 mL VL SQ SCH (07:28)
[2025-01-16 08:19] LABS: Basophils # (A) 0.02 X 10*3/uL (0.00-0.10); Basophils % (A) 0.2 %; Eosinophils # (A) 0.33 X 10*3/uL (0.04-0.35); Eosinophils % (A) 3.3 %; HCT 37.2 % (39.6-50.0); HGB 11.1 g/dL (13.0-17.0); Immature Grans, Automated 0.30 %; Lymphocytes # (A) 0.86 X 10*3/uL (0.90-5.00); Lymphocytes % (A) 8.7 %; MCH 27.7 pg (27.0-32.0); MCHC 29.8 g/dL (32.0-37.0); MCV 92.8 FL (80.0-97.0); Monocytes # (A) 0.78 X 10*3/uL (0.20-1.00); Monocytes % (A) 7.9 %; NRBC Per 100 WBC 0 X 10*3/uL (0.00-0.01); Neutrophils # (A) 7.89 X 10*3/uL (1.80-7.70); Neutrophils % (A) 79.6 %; Platelet Count 240 X 10*3/uL (140-440); RBC 4.01 X 10*6/uL (4.40-5.60); RDW 15.8 % (11.5-14.5); WBC 9.91 X 10*3/uL (4.50-10.00)
[2025-01-16] MEDS: LOSARTAN 50 MG TAB PO SCH (08:20)
[2025-01-16] MEDS: TAMSULOSIN 0.4 MG CAP.ER.24H PO SCH (08:22)
[2025-01-16] MEDS: amLODIPine 10 MG TAB PO SCH (08:22)
[2025-01-16] MEDS: PANTOPRAZOLE 40 MG/10 ML VIAL IV SCH (08:23)
[2025-01-16 08:36] LABS: ALT 13 U/L (10-49); AST 24 U/L (14-35); Albumin 2.6 g/dL (3.8-4.9); Albumin/Globulin Ratio 0.74 Ratio (1.60-3.17); Alkaline Phosphatase 102 U/L (41-126); Anion Gap 11.20 mmol/L (4.00-12.00); BUN/Creat Ratio 10.79 Ratio (12.00-20.00); Blood Urea Nitrogen 35.6 mg/dL (9.0-27.0); Calcium 8.2 mg/dL (8.7-10.3); Carbon Dioxide 21.8 mmol/L (21.6-31.8); Chloride 98 mmol/L (96-109); Globulin 3.5 g/dL (1.6-3.3); Glucose 297 mg/dL (70-110); Magnesium 1.9 mg/dL (1.5-2.4); Potassium 4.7 mmol/L (3.5-5.5); Sodium 131 mmol/L (135-145); Total Protein 6.1 g/dL (6.2-8.2)
[2025-01-16] MEDS: IPRATROPIUM-ALBUTEROL 3 ML NEB INHALATION SCH (09:39)
[2025-01-16] MEDS: SYMBICORT 80-4.5 MCG INHALER INHALATION SCH (09:39)
[2025-01-16 11:50] LABS: Glucose,Whole Blood 311 mg/dL (70-110)
[2025-01-16] MEDS: VANCOMYCIN 2,500 MG in SODIUM CHLORIDE 0.9% 500 ML 500 ML IVPB ONE (14:02)
[2025-01-16 16:29] LABS: Glucose,Whole Blood 312 mg/dL (70-110)
--- NOTE | 2025-01-16 17:04 | P.PN ---
Subjective Progress Note Date: 01/16/25 Patient was seen and examined. Continued redness and wheeping of BL LE wounds. No other complaints. CBC and CMP significant for RBC 4.01, Hg 11.1, Hct 37.2, Na 131, BUN 35.6, Cr 3.3, glu 297, Ca 8.2, alb 2.6. General: non toxic, no distress, appears at stated age Derm: warm, dry Head: atraumatic, normocephalic, symmetric Eyes: EOMI, no lid lag, anicteric sclera Mouth: no lip lesion, mucus membranes moist Cardiovascular: S1S2 reg, no murmur Lungs: Decreased BS bilateral, no rhonchi, no rales , no accessory muscle use Ext: no gross muscle atrophy, 2+ LE edema, no contractures, Bilaterally LE erythema with serous discharge (improved from outline) Neuro: no focal neuro deficits Psych: Alert, oriented, appropriate affect Based on my assessment of this patient, this patient meets a high complexity level of care. Sepsis secondary to bilateraly cellulitis: ID on board. Continue Vancomycin dosed per pharmacy. Monitor renal function while on Vanc. Follow BCx. NS at 130 cc/hr. ESRD: Nephrology consulted for HD TTS schedule. Systolic CHF (EF 20 to 25%), NYHA class III: ARB, BB as below. Not in acute exacerbation. COPD without exacerbation: DuoNeb QID + Q2H PRN SOB/wheezing. Symbicort 2 INH BID. Anemia of chronic disease in the setting of renal disease HTN: Amlodipine 10 mg PO QD. Coreg 6.25 mg PO BID. Losartan 50 mg PO QD. CAD: Lipitor 80 mg PO QHS. Diabetes mellitus: Lantus 60 units QHS. ISS + Accuchecks ACHS along with hypoglycemic precautions. BPH: Flomax 0.4 mg PO QD. CODE STATUS: FULL CODE DVT Prophylaxis: Lovenox SQ GI Prophylaxis: Designated medical POA if patient is not able to make medical decisions for themselves: I have reviewed the following databases computer consultant notes: I have reviewed the results of the following tests: CBC, CMP I have ordered the following tests: CBC, BMP in the AM. I have discussed the care of this patient with the following independent historian: APARNA. I have independently interpreted the following test below: I have discussed the management of this patient with the following physician: Objective - Vital Signs Vital signs: Vital Signs Temp 98.3 F 01/16/25 13:48 Pulse 80 01/16/25 16:27 Resp 16 01/16/25 13:48 BP 128/79 01/16/25 13:48 Pulse Ox 97 01/16/25 13:48 FiO2 Intake & Output 01/15/25 01/16/25 01/16/25 18:59 06:59 18:59 Weight 163.293 kg 163.293 kg Other: # Voids 1 - Labs CBC & Chem 7: 01/16/25 03:05 01/16/25 03:05 Labs: Abnormal Lab Results - Last 24 Hours (Table) 01/15/25 01/15/25 01/16/25 Range/Units 16:38 16:38 03:05 RBC 4.01 L (4.40-5.60) X 10*6/uL Hgb 11.1 L (13.0-17.0) g/dL Hct 37.2 L (39.6-50.0) % MCHC 29.8 L (32.0-37.0) g/dL RDW 15.8 H (11.5-14.5) % Neutrophils # 7.89 H (1.80-7.70) X 10*3/uL Lymphocytes # 0.86 L (0.90-5.00) X 10*3/uL Sodium 128 L (137-145) mmol/L Chloride 96 L (98-107) mmol/L BUN 35 H (9-20) mg/dL Creatinine 2.69 H (0.66-1.25) mg/dL Est GFR (CKD-EPI) (>=60) BUN/Creatinine Ratio (12.00-20.00) Ratio Glucose 348 H (74-99) mg/dL POC Glucose (mg/dL) (70-110) mg/dL Plasma Lactic Acid Kannan 2.5 H* (0.7-2.0) mmol/L Calcium (8.7-10.3) mg/dL Total Protein 5.9 L (6.3-8.2) g/dL Albumin 2.6 L (3.5-5.0) g/dL Globulin (1.6-3.3) g/dL Albumin/Globulin Ratio (1.60-3.17) Ratio 01/16/25 01/16/25 01/16/25 Range/Units 03:05 06:18 11:49 RBC (4.40-5.60) X 10*6/uL Hgb (13.0-17.0) g/dL Hct (39.6-50.0) % MCHC (32.0-37.0) g/dL RDW (11.5-14.5) % Neutrophils # (1.80-7.70) X 10*3/uL Lymphocytes # (0.90-5.00) X 10*3/uL Sodium 131 L (137-145) mmol/L Chloride (98-107) mmol/L BUN 35.6 H (9-20) mg/dL Creatinine 3.3 H (0.66-1.25) mg/dL Est GFR (CKD-EPI) 21 L (>=60) BUN/Creatinine Ratio 10.79 L (12.00-20.00) Ratio Glucose 297 H (74-99) mg/dL POC Glucose (mg/dL) 267 H 311 H (70-110) mg/dL Plasma Lactic Acid Kannan (0.7-2.0) mmol/L Calcium 8.2 L (8.7-10.3) mg/dL Total Protein 6.1 L (6.3-8.2) g/dL Albumin 2.6 L (3.5-5.0) g/dL Globulin 3.5 H (1.6-3.3) g/dL Albumin/Globulin Ratio 0.74 L (1.60-3.17) Ratio 01/16/25 Range/Units 16:28 RBC (4.40-5.60) X 10*6/uL Hgb (13.0-17.0) g/dL Hct (39.6-50.0) % MCHC (32.0-37.0) g/dL RDW (11.5-14.5) % Neutrophils # (1.80-7.70) X 10*3/uL Lymphocytes # (0.90-5.00) X 10*3/uL Sodium (137-145) mmol/L Chloride (98-107) mmol/L BUN (9-20) mg/dL Creatinine (0.66-1.25) mg/dL Est GFR (CKD-EPI) (>=60) BUN/Creatinine Ratio (12.00-20.00) Ratio Glucose (74-99) mg/dL POC Glucose (mg/dL) 312 H (70-110) mg/dL Plasma Lactic Acid Kannan (0.7-2.0) mmol/L Calcium (8.7-10.3) mg/dL Total Protein (6.3-8.2) g/dL Albumin (3.5-5.0) g/dL Globulin (1.6-3.3) g/dL Albumin/Globulin Ratio (1.60-3.17) Ratio
[2025-01-16 20:57] LABS: Glucose,Whole Blood 294 mg/dL (70-110)
[2025-01-16] MEDS: ATORVASTATIN 80 MG TAB PO SCH (21:13)
--- NOTE | 2025-01-16 22:34 | P.CONS ---
History of Present Illness - Reason for Consult Consult date: 01/16/25 Cellulitis Requesting physician: Will Mckeon - Chief Complaint Bilateral lower extremity swelling redness x days - History of Present Illness Patient is a 55-year-old male with a past medical history significant for Asthma, Heart Failure, COPD, Diabetes Mellitus, Deep Vein Thrombosis (DVT), Myocardial Infarction ([place]), Sleep Apnea/CPAP/BIPAP, Vascular Disorder, end-stage renal disease on hemodialysis on the right chest wall permacatheter also histor y of bilateral lower extremity ulcers and cellulitis and apparently recently discharged from the long-term presenting to the hospital for evaluation of worsening swelling redness to bilateral extremities specially to the right leg that has been getting slowly worse over the last few days patient on presentation to the hospital did have a temperature of 102.3 degrees warm hide patient was tachycardic but not hypotensive or hypoxic no need for supplemental oxygen patient did have elevated white count 11.15 with a left shift BUN and creatinine has been elevated liver enzymes are normal influenza RSV COVID testing was negative patient did have a chest x-ray that was negative for acute cardiopulmonary disease patient was started on vancomycin pharmacy to dose infectious disease was consulted for further management of antibiotic therapy regarding cellulitis Review of Systems Positive point and negatives has been mentioned in the HPI, complete review of systems was performed and all other systems are negative Past Medical History Past Medical History: Asthma, Heart Failure, COPD, Diabetes Mellitus, Deep Vein Thrombosis (DVT), Myocardial Infarction ([place]), Sleep Apnea/CPAP/BIPAP, Vascular Disorder Additional Past Medical History / Comment(s): 02/20/16 [place] with cardiac [id number] wore life vest for 7 weeks, 2010 DVT RIGHT leg, bilateral lower leg cellulitis, bilateral varicose veins, PVD, NIDDM type II, BERTRAND with CPAP. UTI Mar 2021, cellulitis with open wounds on bilateral lower legs being treated in wound center p[facility] b[facility]akta 2020 Last Myocardial Infarction Date:: 02/20/16 History of Any Multi-Drug Resistant Organisms: MRSA Year Discovered:: 2018 MDRO Source:: bilateral legs Past Surgical History: Heart Catheterization With Stent Additional Past Surgical History / Comment(s): circumcision Additional Past Anesthesia/Blood Transfusion Reaction / Comm: Pt has never had anesthesia Date of Last Stent Placement:: 02/20/16 Past Psychological History: No Psychological Hx Reported Smoking Status: Former smoker Past Alcohol Use History: None Reported Past Drug Use History: None Reported - Past Family History Father Family Medical History: Coronary Artery Disease (CAD), Diabetes Mellitus, Eye Disorder Additional Family Medical History / Comment(s): Bradycardia, blind. Father is in his early 70's. Mother Family Medical History: Coronary Artery Disease (CAD), Diabetes Mellitus Additional Family Medical History / Comment(s): Benign brain tumor. Mother is in her early 70's Medications and Allergies Home Medications Medication Instructions Recorded Confirmed Type Insulin Aspart [Insulin Aspart 10 unit SQ AC-TID 01/16/25 01/16/25 History Flexpen] Insulin Glargine (Lantus) [Lantus 40 unit SQ BID 01/16/25 01/16/25 History Vial] Allergies Allergy/AdvReac Type Severity Reaction Status Date / Time tetracycline Allergy Rash/Hives Verified 01/16/25 10:37 Physical Exam Vitals: Vital Signs Temp Pulse Pulse Resp BP BP Pulse Ox 01/16/25 09:53 80 01/16/25 09:39 80 01/16/25 07:03 97.9 F 79 19 138/84 95 01/16/25 01:41 98.1 F 86 19 136/85 94 L 01/16/25 01:09 84 01/16/25 01:06 82 01/15/25 22:46 98.2 F 82 19 141/80 98 01/15/25 22:13 98.7 F 82 18 149/82 98 01/15/25 18:22 93 20 149/88 98 01/15/25 15:48 93 16 97/55 96 01/15/25 15:42 102.3 F H 96 20 97/55 95 Intake and Output 01/15/25 01/16/25 01/16/25 22:59 06:59 14:59 Other: # Voids 1 Weight 163.293 kg GENERAL DESCRIPTION: Middle-age male lying in bed, no distress. No tachypnea or accessory muscle of respiration use. HEENT: Shows Pallor , no scleral icterus. Oral mucous membrane is dry. NECK: Trachea central, no thyromegaly. LUNGS: Unlabored breathing. Decreased breath sound at the base HEART: S1, S2, regular rate and rhythm. No loud murmur ABDOMEN: Soft, no tenderness , guarding or rigidity, no organomegaly EXTREMITIES: Swelling to bilateral lower extremity with erythema and superficial ulceration especially to the right leg SKIN: No rash, no masses palpable. NEUROLOGICAL: The patient is awake, alert, oriented x3, mood and affect normal. Results CBC & Chem 7: 01/16/25 03:05 01/16/25 03:05 Labs: Abnormal Lab Results - Last 24 Hours (Table) 01/15/25 01/15/25 01/15/25 Range/Units 16:38 16:38 16:38 WBC 11.15 H (4.50-10.00) 10*3/uL RBC 3.85 L (4.40-5.60) 10*6/uL Hgb 11.0 L (13.0-17.0) g/dL Hct 34.4 L (39.6-50.0) % MCHC (32.0-37.0) g/dL RDW (11.5-14.5) % Neutrophils # 9.55 H (1.80-7.70) 10*3/uL Lymphocytes # 0.56 L (0.90-5.00) 10*3/uL Sodium 128 L (137-145) mmol/L Chloride 96 L (98-107) mmol/L BUN 35 H (9-20) mg/dL Creatinine 2.69 H (0.66-1.25) mg/dL Est GFR (CKD-EPI) (>=60) BUN/Creatinine Ratio (12.00-20.00) Ratio Glucose 348 H (74-99) mg/dL POC Glucose (mg/dL) (70-110) mg/dL Plasma Lactic Acid Kannan 2.5 H* (0.7-2.0) mmol/L Calcium (8.7-10.3) mg/dL Total Protein 5.9 L (6.3-8.2) g/dL Albumin 2.6 L (3.5-5.0) g/dL Globulin (1.6-3.3) g/dL Albumin/Globulin Ratio (1.60-3.17) Ratio 01/16/25 01/16/25 01/16/25 Range/Units 03:05 03:05 06:18 WBC (4.50-10.00) 10*3/uL RBC 4.01 L (4.40-5.60) 10*6/uL Hgb 11.1 L (13.0-17.0) g/dL Hct 37.2 L (39.6-50.0) % MCHC 29.8 L (32.0-37.0) g/dL RDW 15.8 H (11.5-14.5) % Neutrophils # 7.89 H (1.80-7.70) 10*3/uL Lymphocytes # 0.86 L (0.90-5.00) 10*3/uL Sodium 131 L (137-145) mmol/L Chloride (98-107) mmol/L BUN 35.6 H (9-20) mg/dL Creatinine 3.3 H (0.66-1.25) mg/dL Est GFR (CKD-EPI) 21 L (>=60) BUN/Creatinine Ratio 10.79 L (12.00-20.00) Ratio Glucose 297 H (74-99) mg/dL POC Glucose (mg/dL) 267 H (70-110) mg/dL Plasma Lactic Acid Kannan (0.7-2.0) mmol/L Calcium 8.2 L (8.7-10.3) mg/dL Total Protein 6.1 L (6.3-8.2) g/dL Albumin 2.6 L (3.5-5.0) g/dL Globulin 3.5 H (1.6-3.3) g/dL Albumin/Globulin Ratio 0.74 L (1.60-3.17) Ratio Assessment and Plan (1) Bilateral lower leg cellulitis Current Visit: Yes Status: Acute Code(s): L03.116 - CELLULITIS OF LEFT LOWER LIMB; L03.115 - CELLULITIS OF RIGHT LOWER LIMB SNOMED Code(s): 614213132 (2) Bilateral leg ulcer Current Visit: No Status: Acute Code(s): L97.919 - NON-PRS CHRONIC ULC UNSP PRT OF R LOW LEG W UNSP SEVERITY; L97.929 - NON-PRS CHRONIC ULC UNSP PRT OF L LOW LEG W UNSP SEVERITY SNOMED Code(s): 47161267 (3) Sepsis Current Visit: No Status: Acute Code(s): A41.9 - SEPSIS, UNSPECIFIED ORGANISM SNOMED Code(s): 37929639 Plan: 1patient presented to hospital with sepsis in this patient who did have fever tachycardia elevated white meeting criteria for SIRS/Sepsis source likely lower extremity cellulitis in this patient who did have a bilateral lower extremity v enous stasis ulcer with cellulitis more marked to the right lower extremity 2tetracycline allergy 3renal insufficiency on hemodialysis 4patient will be treated with vancomycin pharmacy to dose and local wound care with a dry Aquacel dressing and Bobby wrap to keep the swelling down change daily We will follow on clinical condition and cultures to further adjust medication if needed Thank you for this consultation we will follow the patient along with you Dictation was produced using [employer] dictation software. please excuse any grammatical, word or spelling errors. Time with Patient: Greater than 30
[2025-01-17 06:06] LABS: Glucose,Whole Blood 191 mg/dL (70-110)
[2025-01-17 06:38] LABS: HCT 33.1 % (39.6-50.0); HGB 10.1 g/dL (13.0-17.0); MCH 27.9 pg (27.0-32.0); MCHC 30.5 g/dL (32.0-37.0); MCV 91.4 fL (80.0-97.0); Platelet Count 233 10*3/uL (140-440); RBC 3.62 10*6/uL (4.40-5.60); RDW 15.7 % (11.5-14.5); WBC 8.41 10*3/uL (4.50-10.00)
[2025-01-17 06:56] LABS: African American GFR (CKD) 18 (>60 ml/min/1.73 sqM); Anion Gap 8 mmol/L; Blood Urea Nitrogen 45 mg/dL (9-20); Calcium 8.3 mg/dL (8.4-10.2); Carbon Dioxide 21 mmol/L (22-30); Chloride 104 mmol/L (98-107); Glucose 182 mg/dL (74-99); Non-African American GFR(CKD) 16 (>60 ml/min/1.73 sqM); Potassium 4.7 mmol/L (3.5-5.1); Sodium 133 mmol/L (137-145)
[2025-01-17] MEDS: ENOXAPARIN 40 MG/0.4 ML SYRINGE SQ SCH (08:37)
[2025-01-17 11:20] LABS: Glucose,Whole Blood 291 mg/dL (70-110)
--- NOTE | 2025-01-17 13:37 | P.NPCON ---
History of Present Illness - Reason for Consult end stage renal disease - History of Present Illness Patient is a 55-year-old male with end-stage renal disease on hemodialysis for about 6 months now. Patient was recently discharged home from halfway facility with inpatient dialysis. His last dialysis was last week. Patient states that he has some urine output. Currently he does not have any scheduled outpatient dialysis chair time. Access is right IJ permacath. Also complaining of bilateral leg swelling along with weeping and increased drainage. Patient states that he had been on antibiotics previously for lower extremity cellulitis while at the care home. No history of fever or chills No history of nausea or vomiting Patient does admit to poor appetite and decreased oral intake for the last 3 to 4 days. Past Medical History Past Medical History: Asthma, Heart Failure, COPD, Diabetes Mellitus, Deep Vein Thrombosis (DVT), Myocardial Infarction ([place]), Sleep Apnea/CPAP/BIPAP, Vascular Disorder Additional Past Medical History / Comment(s): 02/20/16 [place] with cardiac [id number] wore life vest for 7 weeks, 2010 DVT RIGHT leg, bilateral lower leg cellulitis, bilateral varicose veins, PVD, NIDDM type II, BERTRAND with CPAP. UTI Mar 2021, cellulitis with open wounds on bilateral lower legs being treated in wound center [facility] b[facility]ta 2020 Last Myocardial Infarction Date:: 02/20/16 History of Any Multi-Drug Resistant Organisms: MRSA Date of last positivie culture/infection: 2017 MDRO Source:: bilateral legs Past Surgical History: Heart Catheterization With Stent Additional Past Surgical History / Comment(s): circumcision Additional Past Anesthesia/Blood Transfusion Reaction / Comment(s): Pt has never had anesthesia Date of Last Stent Placement:: 02/20/16 Past Psychological History: No Psychological Hx Reported Smoking Status: Former smoker Past Alcohol Use History: None Reported Past Drug Use History: None Reported - Past Family History Father Family Medical History: Coronary Artery Disease (CAD), Diabetes Mellitus, Eye Disorder Additional Family Medical History / Comment(s): Bradycardia, blind. Father is in his early 70's. Mother Family Medical History: Coronary Artery Disease (CAD), Diabetes Mellitus Additional Family Medical History / Comment(s): Benign brain tumor. Mother is in her early 70's Medications and Allergies Home Medications Medication Instructions Recorded Confirmed Type Insulin Aspart [Insulin Aspart 10 unit SQ AC-TID 01/16/25 01/16/25 History Flexpen] Insulin Glargine (Lantus) [Lantus 40 unit SQ BID 01/16/25 01/16/25 History Vial] Allergies Allergy/AdvReac Type Severity Reaction Status Date / Time tetracycline Allergy Rash/Hives Verified 01/16/25 10:37 Physical Exam Vitals: Vital Signs Temp Pulse Pulse Resp BP Pulse Ox 01/17/25 11:59 80 01/17/25 11:49 76 01/17/25 08:34 80 01/17/25 08:25 78 01/17/25 07:11 98.3 F 72 20 130/78 95 01/17/25 00:18 98.1 F 70 19 109/72 98 01/16/25 19:05 97.5 F L 70 19 147/92 99 01/16/25 16:27 80 01/16/25 16:12 80 01/16/25 13:48 98.3 F 70 16 128/79 97 Intake and Output 01/16/25 01/17/25 01/17/25 22:59 06:59 14:59 Output Total 700 Balance -700 Output: Urine 700 Other: Voiding Method Toilet # Voids 2 Patient is awake, comfortable, no acute distress. Examination of the heart S1 and S2 Examination of the lungs bilateral breath sounds are heard Abdomen is soft nontender Examination of lower extremities shows bilateral legs to be wrapped. 3-4+ edema noted [employer] COORDINATOR exam grossly intact Results - Lab Results Most recent lab results Calcium 8.3 mg/dL (8.4-10.2) L 01/17/25 05:59 Phosphorus 4.5 mg/dL (2.4-5.1) 01/16/25 03:05 Magnesium 1.9 mg/dL (1.5-2.4) 01/16/25 03:05 01/17/25 05:59 01/17/25 05:59 Assessment and Plan Assessment: 1. End-stage renal disease on hemodialysis. Currently with right IJ permacath. Patient needs to be set up as outpatient. He was recently discharged from care home due to issues with insurance coverage. 2. Volume overload 3. Bilateral lower extremity cellulitis 4. CKD mineral bone disorder 5. COPD Plan: Hemodialysis today and repeat in a.m. Discharge planning to arrange for outpatient hemodialysis. Continue with Bumex Continue Flomax Continue with antibiotics. Thank you for the consultation. We will continue to follow the patient with you during his hospitalization.
[2025-01-17] MEDS: ALTEPLASE 2 MG VIAL (CATHFLO) IV STA (14:39)
--- NOTE | 2025-01-17 15:33 | P.PN ---
Subjective Progress Note Date: 01/17/25 Principal diagnosis: Reason for follow-up with bilateral lower extremity ulcer and cellulitis Patient is a 55-year-old male with a past medical history significant for Asthma, Heart Failure, COPD, Diabetes Mellitus, Deep Vein Thrombosis (DVT), Myocardial Infarction ([place]), Sleep Apnea/CPAP/BIPAP, Vascular Disorder, end-stage renal disease on hemodialysis on the right chest wall permacatheter also history of bilateral lower extremity ulcers and cellulitis presented to hospital with worsening swelling redness and drainage specially to the right lower extremity has been diagnosed with cellulitis prompting this consultation. On today's evaluation that is 01/17/2025, Patient did have resolution of his fever and is afebrile this morning patient denies having any chest pain shortness of breath or cough, the patient is currently on room air, patient denies any abdominal pain no diarrhea no nausea no vomiting denies any worsening pain to the lower extremity. Patient white count normalized to 8.41, creatinine 3.97 Vanco level is 24.6 blood cultures are pending Objective - Vital Signs Vital signs: Vital Signs Temp 98.3 F 01/17/25 07:11 Pulse 80 01/17/25 11:59 Resp 20 01/17/25 07:11 BP 130/78 01/17/25 07:11 Pulse Ox 95 01/17/25 07:11 FiO2 Intake & Output 01/16/25 01/17/25 01/17/25 18:59 06:59 18:59 Output Total 700 Balance -700 Output: Urine 700 Other: Voiding Method Toilet # Voids 2 - Exam GENERAL DESCRIPTION: Middle-age male lying in bed in no distress RESPIRATORY SYSTEM: Unlabored breathing , decreased breath sounds at bases HEART: S1 S2 regular rate and rhythm , ABDOMEN: Soft , no tenderness EXTREMITIES: Leg wounds are currently dressed - Labs CBC & Chem 7: 01/17/25 05:59 01/17/25 05:59 Labs: Abnormal Lab Results - Last 24 Hours (Table) 01/16/25 01/16/25 01/17/25 Range/Units 16:28 20:55 05:59 RBC 3.62 L (4.40-5.60) 10*6/uL Hgb 10.1 L (13.0-17.0) g/dL Hct 33.1 L (39.6-50.0) % MCHC 30.5 L (32.0-37.0) g/dL RDW 15.7 H (11.5-14.5) % Sodium (137-145) mmol/L Carbon Dioxide (22-30) mmol/L BUN (9-20) mg/dL Creatinine (0.66-1.25) mg/dL Glucose (74-99) mg/dL POC Glucose (mg/dL) 312 H 294 H (70-110) mg/dL Calcium (8.4-10.2) mg/dL 01/17/25 01/17/25 01/17/25 Range/Units 05:59 06:05 11:19 RBC (4.40-5.60) 10*6/uL Hgb (13.0-17.0) g/dL Hct (39.6-50.0) % MCHC (32.0-37.0) g/dL RDW (11.5-14.5) % Sodium 133 L (137-145) mmol/L Carbon Dioxide 21 L (22-30) mmol/L BUN 45 H (9-20) mg/dL Creatinine 3.97 H (0.66-1.25) mg/dL Glucose 182 H (74-99) mg/dL POC Glucose (mg/dL) 191 H 291 H (70-110) mg/dL Calcium 8.3 L (8.4-10.2) mg/dL Microbiology - Last 24 Hours (Table) 01/15/25 16:38 Blood Culture - Preliminary Blood Assessment and Plan (1) Bilateral lower leg cellulitis Current Visit: Yes Status: Acute Code(s): L03.116 - CELLULITIS OF LEFT LOWER LIMB; L03.115 - CELLULITIS OF RIGHT LOWER LIMB SNOMED Code(s): 564538106 (2) Bilateral leg ulcer Current Visit: No Status: Acute Code(s): L97.919 - NON-PRS CHRONIC ULC UNSP PRT OF R LOW LEG W UNSP SEVERITY; L97.929 - NON-PRS CHRONIC ULC UNSP PRT OF L LOW LEG W UNSP SEVERITY SNOMED Code(s): 74816522 (3) Sepsis Current Visit: No Status: Acute Code(s): A41.9 - SEPSIS, UNSPECIFIED [facility] SNOMED Code(s): 38939016 Plan: 1patient presented to hospital with sepsis in this patient who did have fever tachycardia elevated white meeting criteria for SIRS/Sepsis source likely lower extremity cellulitis in this patient who did have a bilateral lower extremity venous stasis ulcer with cellulitis more marked to the right lower extremity 2tetracycline allergy 3renal insufficiency on hemodialysis 4patient did have resolution of his fever and the patient white count normalized 5patient will be treated with vancomycin pharmacy to dose and local wound care with a dry Aquacel dressing and Bobby wrap to keep the swelling down change daily Dictation was produced using [employer] dictation software. please excuse any grammatical, word or spelling errors. Time with Patient: Less than 30
--- NOTE | 2025-01-17 16:14 | P.PN ---
Subjective Progress Note Date: 01/17/25 Patient was seen and examined. Sleeping comfortably. Undergoing HD. Continued redness and wheeping of BL LE wounds. No other RN complaints. CBC and CMP significant for RBC 3.62, Hg 10.1, Hct 33.1, Na 133, bicarb 21, BUN 45, Cr 3.97, glu 182, Ca 8.3, alb 2.6. General: non toxic, no distress, appears at stated age Derm: warm, dry Head: atraumatic, normocephalic, symmetric Eyes: EOMI, no lid lag, anicteric sclera Mouth: no lip lesion, mucus membranes moist Cardiovascular: S1S2 reg, no murmur Lungs: Decreased BS bilateral, no rhonchi, no rales , no accessory muscle use Ext: no gross muscle atrophy, 2+ LE edema, no contractures, Bilaterally LE erythema with serous discharge (improved from outline) Neuro: no focal neuro deficits Psych: Alert, oriented, appropriate affect Based on my assessment of this patient, this patient meets a high complexity level of care. Sepsis secondary to bilateraly cellulitis: ID on board. Continue Vancomycin dosed per pharmacy. Monitor renal function while on Vanc. Follow BCx. Decrease NS from 130 to 75 cc/hr. ESRD: Nephrology consulted for HD TTS schedule. Systolic CHF (EF 20 to 25%), NYHA class III: ARB, BB as below. Not in acute exacerbation. COPD without exacerbation: DuoNeb QID + Q2H PRN SOB/wheezing. Symbicort 2 INH BID. Anemia of chronic disease in the setting of renal disease HTN: Amlodipine 10 mg PO QD. Coreg 6.25 mg PO BID. Losartan 50 mg PO QD. CAD: Lipitor 80 mg PO QHS. Diabetes mellitus: Lantus 60 units QHS. ISS + Accuchecks ACHS along with hypoglycemic precautions. BPH: Flomax 0.4 mg PO QD. CODE STATUS: FULL CODE DVT Prophylaxis: Lovenox SQ GI Prophylaxis: Designated medical POA if patient is not able to make medical decisions for the mselves: I have reviewed the following eap consultant notes: ID, Nephro. I have reviewed the results of the following tests: CBC, BMP I have ordered the following tests: CBC, BMP in the AM. I have discussed the care of this patient with the following independent historian: RN. I have independently interpreted the following test below: I have discussed the management of this patient with the following physician: Objective - Vital Signs Vital signs: Vital Signs Temp 98.3 F 01/17/25 07:11 Pulse 80 01/17/25 11:59 Resp 20 01/17/25 07:11 BP 130/78 01/17/25 07:11 Pulse Ox 95 01/17/25 07:11 FiO2 Intake & Output 01/16/25 01/17/25 01/17/25 18:59 06:59 18:59 Output Total 700 Balance -700 Output: Urine 700 Other: Voiding Method Toilet # Voids 2 - Labs CBC & Chem 7: 01/17/25 05:59 01/17/25 05:59 Labs: Abnormal Lab Results - Last 24 Hours (Table) 01/16/25 01/16/25 01/17/25 Range/Units 16:28 20:55 05:59 RBC 3.62 L (4.40-5.60) 10*6/uL Hgb 10.1 L (13.0-17.0) g/dL Hct 33.1 L (39.6-50.0) % MCHC 30.5 L (32.0-37.0) g/dL RDW 15.7 H (11.5-14.5) % Sodium (137-145) mmol/L Carbon Dioxide (22-30) mmol/L BUN (9-20) mg/dL Creatinine (0.66-1.25) mg/dL Glucose (74-99) mg/dL POC Glucose (mg/dL) 312 H 294 H (70-110) mg/dL Calcium (8.4-10.2) mg/dL 01/17/25 01/17/25 01/17/25 Range/Units 05:59 06:05 11:19 RBC (4.40-5.60) 10*6/uL Hgb (13.0-17.0) g/dL Hct (39.6-50.0) % MCHC (32.0-37.0) g/dL RDW (11.5-14.5) % Sodium 133 L (137-145) mmol/L Carbon Dioxide 21 L (22-30) mmol/L BUN 45 H (9-20) mg/dL Creatinine 3.97 H (0.66-1.25) mg/dL Glucose 182 H (74-99) mg/dL POC Glucose (mg/dL) 191 H 291 H (70-110) mg/dL Calcium 8.3 L (8.4-10.2) mg/dL Microbiology - Last 24 Hours (Table) 01/15/25 16:38 Blood Culture - Preliminary Blood
[2025-01-17 16:54] LABS: Glucose,Whole Blood 202 mg/dL (70-110)
[2025-01-17 20:15] LABS: Glucose,Whole Blood 238 mg/dL (70-110)
[2025-01-18 06:11] LABS: Glucose,Whole Blood 201 mg/dL (70-110)
[2025-01-18 06:50] LABS: African American GFR (CKD) 25 (>60 ml/min/1.73 sqM); Anion Gap 7 mmol/L; Blood Urea Nitrogen 35 mg/dL (9-20); Calcium 7.7 mg/dL (8.4-10.2); Carbon Dioxide 26 mmol/L (22-30); Chloride 101 mmol/L (98-107); Glucose 167 mg/dL (74-99); Non-African American GFR(CKD) 22 (>60 ml/min/1.73 sqM); Potassium 4.3 mmol/L (3.5-5.1); Sodium 134 mmol/L (137-145)
[2025-01-18 11:12] LABS: Glucose,Whole Blood 135 mg/dL (70-110)
--- NOTE | 2025-01-18 11:27 | P.PN ---
Subjective Progress Note Date: 01/18/25 Patient was seen and examined. Sleeping comfortably. Undergoing HD. Continued redness and wheeping of BL LE wounds. No other RN complaints. BMP significant for Na 134, BUN 35, Cr 3.09, glu 167, Ca 7.7. Vanc trough 17.5. General: non toxic, no distress, appears at stated age Derm: warm, dry Head: atraumatic, normocephalic, symmetric Eyes: EOMI, no lid lag, anicteric sclera Mouth: no lip lesion, mucus membranes moist Cardiovascular: S1S2 reg, no murmur Lungs: Decreased BS bilateral, no rhonchi, no rales , no accessory muscle use Ext: no gross muscle atrophy, 2+ LE edema, no contractures, Bilaterally LE erythema with serous discharge (improved from outline) Neuro: no focal neuro deficits Psych: Alert, oriented, appropriate affect Based on my assessment of this patient, this patient meets a high complexity level of care. Sepsis secondary to bilateraly cellulitis: ID on board. Continue Vancomycin dosed per pharmacy. Monitor renal function while on Vanc. Follow BCx. Continue NS at 75 cc/hr. ESRD: Nephrology consulted for HD TTS schedule. Systolic CHF (EF 20 to 25%), NYHA class III: ARB, BB as below. Not in acute exacerbation. COPD without exacerbation: DuoNeb QID + Q2H PRN SOB/wheezing. Symbicort 2 INH BID. Anemia of chronic disease in the setting of renal disease HTN: Amlodipine 10 mg PO QD. Coreg 6.25 mg PO BID. Losartan 50 mg PO QD. CAD: Lipitor 80 mg PO QHS. Diabetes mellitus: Lantus 60 units QHS. ISS + Accuchecks ACHS along with hypoglycemic precautions. BPH: Flomax 0.4 mg PO QD. CODE STATUS: FULL CODE DVT Prophylaxis: Lovenox SQ GI Prophylaxis: Designated medical POA if patient is not able to make medical decisions for themselves: I have reviewed the following is consultant notes: ID, Nephro. I have reviewed the results of the following tests: Vanc trough, BMP I have ordered the following tests: I have discussed the care of this patient with the following independent historian: RN. I have independently interpreted the following test below: I have discussed the management of this patient with the following physician: Dr. Alfred, continue present management. Objective - Vital Signs Vital signs: Vital Signs Temp 97.4 F L 01/18/25 07:59 Pulse 74 01/18/25 11:09 Resp 18 01/18/25 07:59 BP 145/89 01/18/25 07:59 Pulse Ox 96 01/18/25 07:59 FiO2 Intake & Output 01/17/25 01/18/25 01/18/25 18:59 06:59 18:59 Intake Total 900 Output Total 2900 Balance -1999 Intake: Hemodialysis 900 Output: Hemodialysis 1900 Hemodialysis Net Amount 1000 Other: Voiding Method Toilet Toilet Urinal Urinal # Voids 2 2 - Labs CBC & Chem 7: 01/17/25 05:59 01/18/25 06:14 Labs: Abnormal Lab Results - Last 24 Hours (Table) 01/17/25 01/17/25 01/18/25 Range/Units 16:53 20:13 06:09 Sodium (137-145) mmol/L BUN (9-20) mg/dL Creatinine (0.66-1.25) mg/dL Glucose (74-99) mg/dL POC Glucose (mg/dL) 202 H 238 H 201 H (70-110) mg/dL Calcium (8.4-10.2) mg/dL 01/18/25 01/18/25 Range/Units 06:14 11:11 Sodium 134 L (137-145) mmol/L BUN 35 H (9-20) mg/dL Creatinine 3.09 H (0.66-1.25) mg/dL Glucose 167 H (74-99) mg/dL POC Glucose (mg/dL) 135 H (70-110) mg/dL Calcium 7.7 L (8.4-10.2) mg/dL Microbiology - Last 24 Hours (Table) 01/15/25 16:38 Blood Culture - Preliminary Blood
--- NOTE | 2025-01-18 12:36 | P.PN ---
Subjective Patient is seen for follow-up for end-stage renal disease. Currently seen on hemodialysis. Status post hemodialysis yesterday with UF of 1 L. Goal UF will be increased to about 2.5 to 2.8 L today. No significant complaints. Objective - Vital Signs Vital signs: Vital Signs Temp 97.4 F L 01/18/25 07:59 Pulse 75 01/18/25 11:23 Resp 18 01/18/25 07:59 BP 145/89 01/18/25 07:59 Pulse Ox 96 01/18/25 07:59 FiO2 Intake & Output 01/17/25 01/18/25 01/18/25 18:59 06:59 18:59 Intake Total 900 Output Total 2900 Balance -1999 Intake: Hemodialysis 900 Output: Hemodialysis 1900 Hemodialysis Net Amount 1000 Other: Voiding Method Toilet Toilet Urinal Urinal # Voids 2 2 - Exam Patient is awake, comfortable, no acute distress. Examination of the heart S1 and S2 Examination of the lungs bilateral breath sounds are heard Abdomen is soft nontender Examination of lower extremities shows bilateral legs to be wrapped. 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 exam grossly intact - Labs CBC & Chem 7: 01/17/25 05:59 01/18/25 06:14 Labs: Abnormal Lab Results - Last 24 Hours (Table) 01/17/25 01/17/25 01/18/25 Range/Units 16:53 20:13 06:09 Sodium (137-145) mmol/L BUN (9-20) mg/dL Creatinine (0.66-1.25) mg/dL Glucose (74-99) mg/dL POC Glucose (mg/dL) 202 H 238 H 201 H (70-110) mg/dL Calcium (8.4-10.2) mg/dL 01/18/25 01/18/25 Range/Units 06:14 11:11 Sodium 134 L (137-145) mmol/L BUN 35 H (9-20) mg/dL Creatinine 3.09 H (0.66-1.25) mg/dL Glucose 167 H (74-99) mg/dL POC Glucose (mg/dL) 135 H (70-110) mg/dL Calcium 7.7 L (8.4-10.2) mg/dL Microbiology - Last 24 Hours (Table) 01/15/25 16:38 Blood Culture - Preliminary Blood Assessment and Plan Assessment: 1. End-stage renal disease on hemodialysis. Currently with right IJ permacath. He was recently discharged from care home due to issues with insurance coverage. Outpatient chair time to be arranged upon discharge. 2. Volume overload 3. Bilateral lower extremity cellulitis 4. CKD mineral bone disorder 5. COPD Plan: Hemodialysis today and repeat in a.m. Discharge planning to arrange for outpatient hemodialysis. Patient will be most likely be on Thursday schedule Continue with Bumex Continue Flomax Continue with antibiotics.
[2025-01-18] MEDS: VANCOMYCIN 2,250 MG in SODIUM CHLORIDE 0.9% 500 ML 500 ML IVPB ONE (12:48)
[2025-01-18 16:26] LABS: Glucose,Whole Blood 215 mg/dL (70-110)
[2025-01-18 17:19] LABS: Hepatitis B Surface AB- Quant 3.5 mIU/mL
[2025-01-18 18:12] LABS: Hepatitis B Surface Antigen Nonreactive (Nonreactive)
[2025-01-18 20:14] LABS: Glucose,Whole Blood 223 mg/dL (70-110)
[2025-01-19 06:29] LABS: Glucose,Whole Blood 195 mg/dL (70-110)
--- NOTE | 2025-01-19 07:52 | P.PN ---
Subjective Progress Note Date: 01/18/25 Principal diagnosis: Reason for follow-up with bilateral lower extremity ulcer and cellulitis Patient is a 55-year-old male with a past medical history significant for Asthma, Heart Failure, COPD, Diabetes Mellitus, Deep Vein Thrombosis (DVT), Myocardial Infarction ([place]), Sleep Apnea/CPAP/BIPAP, Vascular Disorder, end-stage renal disease on hemodialysis on the right chest wall permacatheter also history of bilateral lower extremity ulcers and cellulitis presented to hospital with worsening swelling redness and drainage specially to the right lower extremity has been diagnosed with cellulitis prompting this consultation. On today's evaluation that is 01/18/2025,the patient denies any fever or any chills, patient is breathing comfortably on room air, the patient denies chest pain shortness of breath and no significant cough, patient denies abdominal pain, no nausea vomiting or diarrhea. Pain and swelling to the lower extremity has decreased in intensity. The patient did have a creatinine of 3.09 no CBC was done today blood culture currently pending Objective - Vital Signs Vital signs: Vital Signs Temp 97.4 F L 01/18/25 07:59 Pulse 75 01/18/25 11:23 Resp 18 01/18/25 07:59 BP 145/89 01/18/25 07:59 Pulse Ox 96 01/18/25 07:59 FiO2 Intake & Output 01/17/25 01/18/25 01/18/25 18:59 06:59 18:59 Intake Total 900 Output Total 2900 Balance -2000 Intake: Hemodialysis 900 Output: Hemodialysis 1900 Hemodialysis Net Amount 1000 Other: Voiding Method Toilet Toilet Urinal Urinal # Voids 2 2 - Exam GENERAL DESCRIPTION: Middle-age male lying in bed in no distress RESPIRATORY SYSTEM: Unlabored breathing , decreased breath sounds at bases HEART: S1 S2 regular rate and rhythm , ABDOMEN: Soft , no tenderness EXTREMITIES: Leg wounds are currently dressed - Labs CBC & Chem 7: 01/17/25 05:59 01/18/25 06:14 Labs: Abnormal Lab Results - Last 24 Hours (Table) 01/17/25 01/17/25 01/18/25 Range/Units 16:53 20:13 06:09 Sodium (137-145) mmol/L BUN (9-20) mg/dL Creatinine (0.66-1.25) mg/dL Glucose (74-99) mg/dL POC Glucose (mg/dL) 202 H 238 H 201 H (70-110) mg/dL Calcium (8.4-10.2) mg/dL 01/18/25 01/18/25 Range/Units 06:14 11:11 Sodium 134 L (137-145) mmol/L BUN 35 H (9-20) mg/dL Creatinine 3.09 H (0.66-1.25) mg/dL Glucose 167 H (74-99) mg/dL POC Glucose (mg/dL) 135 H (70-110) mg/dL Calcium 7.7 L (8.4-10.2) mg/dL Microbiology - Last 24 Hours (Table) 01/15/25 16:38 Blood Culture - Preliminary Blood Assessment and Plan (1) Bilateral lower leg cellulitis Current Visit: Yes Status: Acute Code(s): L03.116 - CELLULITIS OF LEFT LOWER LIMB; L03.115 - CELLULITIS OF RIGHT LOWER LIMB SNOMED Code(s): 715896398 (2) Bilateral leg ulcer Current Visit: No Status: Acute Code(s): L97.919 - NON-PRS CHRONIC ULC UNSP PRT OF R LOW LEG W UNSP SEVERITY; L97.929 - NON-PRS CHRONIC ULC UNSP PRT OF L LOW LEG W UNSP SEVERITY SNOMED Code(s): 56612154 (3) Sepsis Current Visit: No Status: Acute Code(s): A41.9 - SEPSIS, UNSPECIFIED ORGANISM SNOMED Code(s): 64758058 Plan: 1patient presented to hospital with sepsis in this patient who did have fever tachycardia elevated white meeting criteria for SIRS/Sepsis source likely lower extremity cellulitis in this patient who did have a bilateral lower extremity venous stasis ulcer with cellulitis more marked to the right lower extremity 2tetracycline allergy 3patient did have resolution of his fever and the patient white count normalized 4patient will be treated with vancomycin pharmacy to dose and local wound care with a dry Aquacel dressing and Bobby wrap to keep the swelling down change daily, will discuss with the nephrology if the patient can received 1-2 doses of vancomycin through the dialysis that should complete his treatment for his cellulitis Dictation was produced using [employer] dictation software. please excuse any grammatical, word or spelling errors. Time with Patient: Less than 30
[2025-01-19 11:28] LABS: Glucose,Whole Blood 128 mg/dL (70-110)
[2025-01-19 11:58] VITALS: BMI 51.6
--- NOTE | 2025-01-19 12:37 | P.PN ---
Subjective Progress Note Date: 01/19/25 Subjective Patient was seen this morning. He was getting his dialysis. Patient has no acute complaints Physical exam General examination - Alert and Oriented 3 in NAD Heart - + S1S2 no murmurs Lungs - Clear to auscultation Abdomen soft NT ND +ve BS, obesity Extremities -bilateral lower extremity bandages intact and dry [employer] - Moving all 4 extremities spontaneously Psych - Calm and cooperative Sepsis secondary to bilateraly cellulitis: ID on board. Continue Vancomycin dosed per pharmacy. Monitor renal function while on Vanc. Follow BCx. Continue NS at 75 cc/hr. ESRD: Nephrology consulted for HD TTS schedule. Discussed with case management who said that they do have a bed available outpatient dialysis however they will not start on a Thursday. Systolic CHF (EF 20 to 25%), NYHA class III: ARB, BB as below. Not in acute exacerbation. COPD without exacerbation: DuoNeb QID + Q2H PRN SOB/wheezing. Symbicort 2 INH BID. Anemia of chronic disease in the setting of renal disease HTN: Amlodipine 10 mg PO QD. Coreg 6.25 mg PO BID. Losartan 50 mg PO QD. CAD: Lipitor 80 mg PO QHS. Diabetes mellitus: Lantus 60 units QHS. ISS + Accuchecks ACHS along with hypoglycemic precautions. BPH: Flomax 0.4 mg PO QD. CODE STATUS: FULL CODE DVT Prophylaxis: Lovenox SQ GI Prophylaxis: Disposition: Will plan to discharge the patient after dialysis on Thursday. Objective - Vital Signs Vital signs: Vital Signs Temp 98.2 F 01/19/25 07:37 Pulse 78 01/19/25 09:22 Resp 18 01/19/25 09:22 BP 162/97 01/19/25 07:37 Pulse Ox 97 01/19/25 07:37 FiO2 Intake & Output 01/18/25 01/19/25 01/19/25 18:59 06:59 18:59 Intake Total 600 Output Total 5564 Balance -4964 Weight 163.293 kg Intake: Hemodialysis 600 Output: Hemodialysis 3082 Hemodialysis Net Amount 2482 Other: Voiding Method Toilet Toilet Toilet Urinal Urinal Urinal # Voids 3 2 - Labs CBC & Chem 7: 01/17/25 05:59 01/18/25 06:14 Labs: Abnormal Lab Results - Last 24 Hours (Table) 0701/18/25 01/19/25 Range/Units 16:25 20:13 06:28 POC Glucose (mg/dL) 215 H 223 H 195 H (70-110) mg/dL 01/19/25 Range/Units 11:26 POC Glucose (mg/dL) 128 H (70-110) mg/dL Microbiology - Last 24 Hours (Table) 01/15/25 16:38 Blood Culture - Preliminary Blood
--- NOTE | 2025-01-19 13:21 | P.PN ---
Subjective Patient is seen for follow-up for end-stage renal disease. Currently seen on hemodialysis. Status post hemodialysis yesterday with UF of 2.4 L. Goal UF will be increased to about 3 L today. No significant complaints. Objective - Vital Signs Vital signs: Vital Signs Temp 97.9 F 01/19/25 12:33 Pulse 68 01/19/25 12:33 Resp 18 01/19/25 12:33 BP 154/93 01/19/25 12:33 Pulse Ox 97 01/19/25 07:37 FiO2 Intake & Output 01/18/25 01/19/25 01/19/25 18:59 06:59 18:59 Intake Total 600 500 Output Total 5564 6500 Balance -4964 -6000 Weight 163.293 kg Intake: Hemodialysis 600 500 Output: Hemodialysis 3082 3500 Hemodialysis Net Amount 2482 3000 Other: Voiding Method Toilet Toilet Toilet Urinal Urinal Urinal # Voids 3 2 - Exam Patient is awake, comfortable, no acute distress. Examination of the heart S1 and S2 Examination of the lungs bilateral breath sounds are heard Abdomen is soft nontender Examination of lower extremities shows bilateral legs to be wrapped. 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 End-stage renal disease on hemodialysis. Currently with right IJ permacath. He was recently discharged from senior living due to issues with insurance coverage. Outpatient chair time to be arranged upon discharge. 2. Volume overload 3. Bilateral lower extremity cellulitis 4. CKD mineral bone disorder 5. COPD Plan: Hemodialysis today. Increase UF to about 3 L Discharge planning to arrange for outpatient hemodialysis. Patient will be most likely be on Thursday schedule Continue with Bumex Continue Flomax Continue with antibiotics.
--- NOTE | 2025-01-19 15:02 | P.PN ---
Subjective Progress Note Date: 01/19/25 Principal diagnosis: Reason for follow-up with bilateral lower extremity ulcer and cellulitis Patient is a 55-year-old male with a past medical history significant for Asthma, Heart Failure, COPD, Diabetes Mellitus, Deep Vein Thrombosis (DVT), Myocardial Infarction ([place]), Sleep Apnea/CPAP/BIPAP, Vascular Disorder, end-stage renal disease on hemodialysis on the right chest wall permacatheter also history of bilateral lower extremity ulcers and cellulitis presented to hospital with worsening swelling redness and drainage specially to the right lower extremity has been diagnosed with cellulitis prompting this consultation. On today's evaluation that is 01/19/2025,the patient remains to be afebrile, patient is on room air not requiring supplemental oxygen and denies any shortness of breath no chest pain or cough.Patient denies having any nausea or vomiting, no abdominal pain and no diarrhea has been reported overall pain to lower extremity has decreased in intensity. No new lab has been obtained today blood culture have been negative so far Objective - Vital Signs Vital signs: Vital Signs Temp 97.9 F 01/19/25 12:33 Pulse 68 01/19/25 12:33 Resp 18 01/19/25 12:33 BP 154/93 01/19/25 12:33 Pulse Ox 97 01/19/25 07:37 FiO2 Intake & Output 01/18/25 01/19/25 01/19/25 18:59 06:59 18:59 Intake Total 600 500 Output Total 5564 6500 Balance -4964 -6000 Weight 163.293 kg Intake: Hemodialysis 600 500 Output: Hemodialysis 3082 3500 Hemodialysis Net Amount 2482 3000 Other: Voiding Method Toilet Toilet Toilet Urinal Urinal Urinal # Voids 3 2 - Exam GENERAL DESCRIPTION: Middle-age male lying in bed in no distress RESPIRATORY SYSTEM: Unlabored breathing , decreased breath sounds at bases HEART: S1 S2 regular rate and rhythm , ABDOMEN: Soft , no tenderness EXTREMITIES: Leg wounds are currently dressed - Labs CBC & Chem 7: 01/17/25 05:59 01/18/25 06:14 Labs: Abnormal Lab Results - Last 24 Hours (Table) 01/18/25 01/18/25 01/19/25 Range/Units 16:25 20:13 06:28 POC Glucose (mg/dL) 215 H 223 H 195 H (70-110) mg/dL 01/19/25 Range/Units 11:26 POC Glucose (mg/dL) 128 H (70-110) mg/dL Microbiology - Last 24 Hours (Table) 01/15/25 16:38 Blood Culture - Preliminary Blood Assessment and Plan (1) Bilateral lower leg cellulitis Current Visit: Yes Status: Acute Code(s): L03.116 - CELLULITIS OF LEFT LOWER LIMB; L03.115 - CELLULITIS OF RIGHT LOWER LIMB SNOMED Code(s): 148067776 (2) Bilateral leg ulcer Current Visit: No Status: Acute Code(s): L97.919 - NON-PRS CHRONIC ULC UNSP PRT OF R LOW LEG W UNSP SEVERITY; L97.929 - NON-PRS CHRONIC ULC UNSP PRT OF L LOW LEG W UNSP SEVERITY SNOMED Code(s): 02544308 (3) Sepsis Current Visit: No Status: Acute Code(s): A41.9 - SEPSIS, UNSPECIFIED ORGANISM SNOMED Code(s): 27802735 Plan: 1patient presented to hospital with sepsis in this patient who did have fever tachycardia elevated white meeting criteria for SIRS/Sepsis source likely lower extremity cellulitis in this patient who did have a bilateral lower extremity venous stasis ulcer with cellulitis more marked to the right lower extremity 2tetracycline allergy 3patient did have resolution of his fever and the patient white count normalized 4patient did have improvement of the bilateral extremity cellulitis is afebrile blood culture negative so far and you have improvement to continue with the vancomycin which can be done through the dialysis for a week on discharge prescription provided to the shoe parts caser Dictation was produced using [employer] dictation software. please excuse any grammatical, word or spelling errors. Time with Patient: Less than 30
[2025-01-19 16:40] LABS: Glucose,Whole Blood 255 mg/dL (70-110)
[2025-01-19 20:45] LABS: Glucose,Whole Blood 191 mg/dL (70-110)
[2025-01-20 04:37] LABS: African American GFR (CKD) 24 (>60 ml/min/1.73 sqM); Anion Gap 8 mmol/L; Blood Urea Nitrogen 31 mg/dL (9-20); Calcium 8.5 mg/dL (8.4-10.2); Carbon Dioxide 28 mmol/L (22-30); Chloride 97 mmol/L (98-107); Glucose 192 mg/dL (74-99); Non-African American GFR(CKD) 21 (>60 ml/min/1.73 sqM); Potassium 4.3 mmol/L (3.5-5.1); Sodium 133 mmol/L (137-145)
[2025-01-20 04:42] LABS: Vancomycin,Random 15.9 ug/mL
[2025-01-20 06:06] LABS: Glucose,Whole Blood 151 mg/dL (70-110)
[2025-01-20 08:53] LABS: HCT 33.5 % (39.6-50.0); HGB 10.0 g/dL (13.0-17.0); MCH 27.3 pg (27.0-32.0); MCHC 29.9 g/dL (32.0-37.0); MCV 91.5 FL (80.0-97.0); NRBC Per 100 WBC 0 X 10*3/uL (0.00-0.01); Platelet Count 227 X 10*3/uL (140-440); RBC 3.66 X 10*6/uL (4.40-5.60); RDW 15.3 % (11.5-14.5); WBC 6.27 X 10*3/uL (4.50-10.00)
[2025-01-20 08:54] LABS: Basophils # (A) 0.03 X 10*3/uL (0.00-0.10); Basophils % (A) 0.5 %; Eosinophils # (A) 0.37 X 10*3/uL (0.04-0.35); Eosinophils % (A) 5.9 %; Immature Grans, Automated 0.50 %; Lymphocytes # (A) 0.77 X 10*3/uL (0.90-5.00); Lymphocytes % (A) 12.3 %; Monocytes # (A) 0.65 X 10*3/uL (0.20-1.00); Monocytes % (A) 10.4 %; Neutrophils # (A) 4.42 X 10*3/uL (1.80-7.70); Neutrophils % (A) 70.4 %
--- NOTE | 2025-01-20 10:47 | P.PN ---
Subjective Progress Note Date: 01/20/25 Subjective Patient seen this morning. He had no acute complaints. 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 Continue Vancomycin dosed per pharmacy. Monitor renal function while on Vanc. Follow BCx. Continue NS at 75 cc/hr. ID recommending 1 more week of vancomycin after dialysis. Case management to arrange for vancomycin after dialysis. ESRD: Nephrology consulted for HD TTS schedule. Systolic CHF (EF 20 to 25%), NYHA class III: ARB, BB as below. Not in acute exacerbation. COPD without exacerbation: DuoNeb QID + Q2H PRN SOB/wheezing. Symbicort 2 INH BID. Anemia of chronic disease in the setting of renal disease HTN: Amlodipine 10 mg PO QD. Coreg 6.25 mg PO BID. Losartan 50 mg PO QD. CAD: Lipitor 80 mg PO QHS. Diabetes mellitus: Lantus 60 units QHS. ISS + Accuchecks ACHS along with hypoglycemic precautions. BPH: Flomax 0.4 mg PO QD. CODE STATUS: FULL CODE DVT Prophylaxis: Lovenox SQ GI Prophylaxis: Disposition: Will plan to discharge the patient after dialysis on Thursday if his outpatient dialysis is set up.. Objective - Vital Signs Vital signs: Vital Signs Temp 97.9 F 01/20/25 07:12 Pulse 84 01/20/25 08:46 Resp 19 01/20/25 07:12 BP 144/83 01/20/25 07:12 Pulse Ox 96 01/20/25 07:12 FiO2 Intake & Output 01/19/25 01/20/25 01/20/25 18:59 06:59 18:59 Intake Total 500 450 Output Total 6500 Balance -6000 450 Weight 163.293 kg Intake: Oral 450 Hemodialysis 500 Output: Hemodialysis 3500 Hemodialysis Net Amount 3000 Other: Voiding Method Toilet Toilet Urinal # Voids 3 1 - Labs CBC & Chem 7: 01/20/25 03:59 01/20/25 03:59 Labs: Abnormal Lab Results - Last 24 Hours (Table) 01/19/25 01/19/25 01/19/25 Range/Units 11:26 16:38 20:44 RBC (4.40-5.60) X 10*6/uL Hgb (13.0-17.0) g/dL Hct (39.6-50.0) % MCHC (32.0-37.0) g/dL RDW (11.5-14.5) % Lymphocytes # (0.90-5.00) X 10*3/uL Eosinophils # (0.04-0.35) X 10*3/uL Sodium (137-145) mmol/L Chloride (98-107) mmol/L BUN (9-20) mg/dL Creatinine (0.66-1.25) mg/dL Glucose (74-99) mg/dL POC Glucose (mg/dL) 128 H 255 H 191 H (70-110) mg/dL 01/20/25 01/20/25 01/20/25 Range/Units 03:59 03:59 06:04 RBC 3.66 L (4.40-5.60) X 10*6/uL Hgb 10.0 L (13.0-17.0) g/dL Hct 33.5 L (39.6-50.0) % MCHC 29.9 L (32.0-37.0) g/dL RDW 15.3 H (11.5-14.5) % Lymphocytes # 0.77 L (0.90-5.00) X 10*3/uL Eosinophils # 0.37 H (0.04-0.35) X 10*3/uL Sodium 133 L (137-145) mmol/L Chloride 97 L (98-107) mmol/L BUN 31 H (9-20) mg/dL Creatinine 3.22 H (0.66-1.25) mg/dL Glucose 192 H (74-99) mg/dL POC Glucose (mg/dL) 151 H (70-110) mg/dL
[2025-01-20 11:30] LABS: Glucose,Whole Blood 194 mg/dL (70-110)
--- NOTE | 2025-01-20 16:04 | P.PN ---
Subjective Progress Note Date: 01/20/25 Principal diagnosis: Reason for follow-up with bilateral lower extremity ulcer and cellulitis Patient is a 55-year-old male with a past medical history significant for Asthma, Heart Failure, COPD, Diabetes Mellitus, Deep Vein Thrombosis (DVT), Myocardial Infarction (ND), Sleep Apnea/CPAP/BIPAP, Vascular Disorder, end-stage renal disease on hemodialysis on the right chest wall permacatheter also history of bilateral lower extremity ulcers and cellulitis presented to hospital with worsening swelling redness and drainage specially to the right lower extremity has been diagnosed with cellulitis prompting this consultation. On today's evaluation that is 01/20/2025, the patient continues to be afebrile, the patient is on room air and breathing comfortably, the Pt denies having any chest pain or cough, the patient denies having any abdominal pain no vomiting or any diarrhea overall swelling redness lower extremity has decreased. Patient white count 6.27, creatinine 3.22 blood culture have been negative Objective - Vital Signs Vital signs: Vital Signs Temp 97.9 F 01/20/25 07:12 Pulse 84 01/20/25 13:06 Resp 19 01/20/25 07:12 BP 144/83 01/20/25 07:12 Pulse Ox 96 01/20/25 07:12 FiO2 Intake & Output 01/19/25 01/20/25 01/20/25 18:59 06:59 18:59 Intake Total 500 450 Output Total 6500 Balance -6000 450 Weight 163.293 kg Intake: Oral 450 Hemodialysis 500 Output: Hemodialysis 3500 Hemodialysis Net Amount 3000 Other: Voiding Method Toilet Toilet Urinal # Voids 3 1 - Exam GENERAL DESCRIPTION: Middle-age male lying in bed in no distress RESPIRATORY SYSTEM: Unlabored breathing , decreased breath sounds at bases HEART: S1 S2 regular rate and rhythm , ABDOMEN: Soft , no tenderness EXTREMITIES: Leg wounds are currently dressed - Labs CBC & Chem 7: 01/20/25 03:59 01/20/25 03:59 Labs: Abnormal Lab Results - Last 24 Hours (Table) 01/19/25 01/19/25 01/20/25 Range/Units 16:38 20:44 03:59 RBC (4.40-5.60) X 10*6/uL Hgb (13.0-17.0) g/dL Hct (39.6-50.0) % MCHC (32.0-37.0) g/dL RDW (11.5-14.5) % Lymphocytes # (0.90-5.00) X 10*3/uL Eosinophils # (0.04-0.35) X 10*3/uL Sodium 133 L (137-145) mmol/L Chloride 97 L (98-107) mmol/L BUN 31 H (9-20) mg/dL Creatinine 3.22 H (0.66-1.25) mg/dL Glucose 192 H (74-99) mg/dL POC Glucose (mg/dL) 255 H 191 H (70-110) mg/dL 01/20/25 01/20/25 01/20/25 Range/Units 03:59 06:04 11:28 RBC 3.66 L (4.40-5.60) X 10*6/uL Hgb 10.0 L (13.0-17.0) g/dL Hct 33.5 L (39.6-50.0) % MCHC 29.9 L (32.0-37.0) g/dL RDW 15.3 H (11.5-14.5) % Lymphocytes # 0.77 L (0.90-5.00) X 10*3/uL Eosinophils # 0.37 H (0.04-0.35) X 10*3/uL Sodium (137-145) mmol/L Chloride (98-107) mmol/L BUN (9-20) mg/dL Creatinine (0.66-1.25) mg/dL Glucose (74-99) mg/dL POC Glucose (mg/dL) 151 H 194 H (70-110) mg/dL Assessment and Plan (1) Bilateral lower leg cellulitis Current Visit: Yes Status: Acute Code(s): L03.116 - CELLULITIS OF LEFT LOWER LIMB; L03.115 - CELLULITIS OF RIGHT LOWER LIMB SNOMED Code(s): 073509814 (2) Bilateral leg ulcer Current Visit: No Status: Acute Code(s): L97.919 - NON-PRS CHRONIC ULC UNSP PRT OF R LOW LEG W UNSP SEVERITY; L97.929 - NON-PRS CHRONIC ULC UNSP PRT OF L LOW LEG W UNSP SEVERITY SNOMED Code(s): 60279203 (3) Sepsis Current Visit: Yes Status: Acute Code(s): A41.9 - SEPSIS, UNSPECIFIED ORGAN ISM SNOMED Code(s): 79052479 Plan: 1patient presented to hospital with sepsis in this patient who did have fever tachycardia elevated white meeting criteria for SIRS/Sepsis source likely lower extremity cellulitis in this patient who did have a bilateral lower extremity venous stasis ulcer with cellulitis more marked to the right lower extremity 2tetracycline allergy 3patient did have resolution of his fever and the patient white count normalized 4patient continue with IV vancomycin pharmacy to dose along with local wound care with Aquacel dressing and Bobby wrap discussed with nursing staff while inpatient Dictation was produced using [employer] dictation software. please excuse any grammatical, word or spelling errors. Time with Patient: Less than 30
--- NOTE | 2025-01-20 16:40 | P.PN ---
Subjective Patient is seen for follow-up for end-stage renal disease. Currently seen on hemodialysis. Status post hemodialysis yesterday with UF of 3.0 L. No significant complaints. Objective - Vital Signs Vital signs: Vital Signs Temp 98.2 F 01/20/25 14:10 Pulse 75 01/20/25 14:10 Resp 18 01/20/25 14:10 BP 128/78 01/20/25 14:10 Pulse Ox 95 01/20/25 14:10 FiO2 Intake & Output 01/19/25 01/20/25 01/20/25 18:59 06:59 18:59 Intake Total 500 450 Output Total 6500 Balance -6000 450 Weight 163.293 kg Intake: Oral 450 Hemodialysis 500 Output: Hemodialysis 3500 Hemodialysis Net Amount 3000 Other: Voiding Method Toilet Toilet Urinal # Voids 3 1 - Exam Patient is awake, comfortable, no acute distress. Examination of the heart S1 and S2 Examination of the lungs bilateral breath sounds are heard Abdomen is soft nontender Examination of lower extremities shows bilateral legs to be wrapped. 3-4+ edema noted BEEF GRINDER exam grossly intact - Labs CBC & Chem 7: 01/20/25 03:59 01/20/25 03:59 Labs: Abnormal Lab Results - Last 24 Hours (Table) 01/19/25 01/19/25 01/20/25 Range/Units 16:38 20:44 03:59 RBC (4.40-5.60) X 10*6/uL Hgb (13.0-17.0) g/dL Hct (39.6-50.0) % MCHC (32.0-37.0) g/dL RDW (11.5-14.5) % Lymphocytes # (0.90-5.00) X 10*3/uL Eosinophils # (0.04-0.35) X 10*3/uL Sodium 133 L (137-145) mmol/L Chloride 97 L (98-107) mmol/L BUN 31 H (9-20) mg/dL Creatinine 3.22 H (0.66-1.25) mg/dL Glucose 192 H (74-99) mg/dL POC Glucose (mg/dL) 255 H 191 H (70-110) mg/dL 01/20/25 01/20/25 01/20/25 Range/Units 03:59 06:04 11:28 RBC 3.66 L (4.40-5.60) X 10*6/uL Hgb 10.0 L (13.0-17.0) g/dL Hct 33.5 L (39.6-50.0) % MCHC 29.9 L (32.0-37.0) g/dL RDW 15.3 H (11.5-14.5) % Lymphocytes # 0.77 L (0.90-5.00) X 10*3/uL Eosinophils # 0.37 H (0.04-0.35) X 10*3/uL Sodium (137-145) mmol/L Chloride (98-107) mmol/L BUN (9-20) mg/dL Creatinine (0.66-1.25) mg/dL Glucose (74-99) mg/dL POC Glucose (mg/dL) 151 H 194 H (70-110) mg/dL Assessment and Plan Assessment: 1. End-stage renal disease on hemodialysis. Currently with right IJ permacath. He was recently discharged from longterm due to issues with insurance coverage. Outpatient chair time to be arranged upon discharge. 2. Volume overload 3. Bilateral lower extremity cellulitis 4. CKD mineral bone disorder 5. COPD Plan: Hemodialysis in a.m. Discharge planning to arrange for outpatient hemodialysis. Patient will be most likely be on Thursday schedule at [facility] Continue with Bumex, increase dose Continue Flomax Continue with antibiotics.
[2025-01-20 17:12] LABS: Glucose,Whole Blood 179 mg/dL (70-110)
[2025-01-20] MEDS: BUMETANIDE 1 MG TAB PO SCH (17:59)
[2025-01-20 20:57] LABS: Glucose,Whole Blood 174 mg/dL (70-110)
[2025-01-21 05:59] LABS: Glucose,Whole Blood 116 mg/dL (70-110)
--- NOTE | 2025-01-21 11:43 | P.PN ---
Subjective Progress Note Date: 01/21/25 Subjective Patient seen this morning. He had no acute complaints. Awaiting for dialysis to be set up. Physical exam General examination - Alert and Oriented 3 in NAD Heart - + S1S2 no murmurs Lungs - Clear to auscultation Abdomen soft NT ND +ve BS, obesity Extremities -bilateral lower extremity bandages intact and dry [employer]SCHOOL - Moving all 4 extremities spontaneously Psych - Calm and cooperative Assessment and plan Sepsis secondary to bilateraly cellulitis: ID on board. Continue Vancomycin dosed per pharmacy. Monitor renal function while on Vanc. Follow BCx. Continue NS at 75 cc/hr. ID recommending 1 more week of vancomycin after dialysis. Case management to arrange for vancomycin after dialysis. ESRD: Nephrology consulted for HD TTS schedule. Systolic CHF (EF 20 to 25%), NYHA class III: ARB, BB as below. Not in acute exacerbation. COPD without exacerbation: DuoNeb QID + Q2H PRN SOB/wheezing. Symbicort 2 INH BID. Anemia of chronic disease in the setting of renal disease HTN: Amlodipine 10 mg PO QD. Coreg 6.25 mg PO BID. Losartan 50 mg PO QD. CAD: Lipitor 80 mg PO QHS. Diabetes mellitus: Lantus 60 units QHS. ISS + Accuchecks ACHS along with hypoglycemic precautions. BPH: Flomax 0.4 mg PO QD. CODE STATUS: FULL CODE DVT Prophylaxis: Lovenox SQ GI Prophylaxis: Disposition: Awaiting for outpatient dialysis to be set up Objective - Vital Signs Vital signs: Vital Signs Temp 97.7 F 01/21/25 08:14 Pulse 61 01/21/25 08:14 Resp 17 01/21/25 01:28 BP 128/79 01/21/25 08:14 Pulse Ox 97 01/21/25 01:28 FiO2 Intake & Output 01/20/25 01/21/25 01/21/25 18:59 06:59 18:59 Other: # Voids 1 # Bowel Movements 1 - Labs CBC & Chem 7: 01/20/25 03:59 01/20/25 03:59 Labs: Abnormal Lab Results - Last 24 Hours (Table) 01/20/25 01/20/25 01/21/25 Range/Units 17:10 20:57 05:58 POC Glucose (mg/dL) 179 H 174 H 116 H (70-110) mg/dL Microbiology - Last 24 Hours (Table) 01/15/25 16:38 Blood Culture - Final Blood
[2025-01-21 11:46] LABS: Glucose,Whole Blood 133 mg/dL (70-110)
--- NOTE | 2025-01-21 12:43 | P.PN ---
Subjective Progress Note Date: 01/21/25 Patient is seen for follow-up for end-stage renal disease. Currently seen on hemodialysis. No new complaints. Patient is awake, comfortable, no acute distress. Examination of the heart S1 and S2 Examination of the lungs bilateral breath sounds are heard Abdomen is soft nontender Examination of lower extremities shows bilateral legs to be wrapped. 3-4+ edema noted Objective - Vital Signs Vital signs: Vital Signs Temp 97.7 F 01/21/25 08:14 Pulse 68 01/21/25 12:13 Resp 17 01/21/25 01:28 BP 128/79 01/21/25 08:14 Pulse Ox 97 01/21/25 01:28 FiO2 Intake & Output 01/20/25 01/21/25 01/21/25 18:59 06:59 18:59 Other: # Voids 1 # Bowel Movements 1 - Labs CBC & Chem 7: 01/20/25 03:59 01/20/25 03:59 Labs: Abnormal Lab Results - Last 24 Hours (Table) 01/20/25 01/20/25 01/21/25 Range/Units 17:10 20:57 05:58 POC Glucose (mg/dL) 179 H 174 H 116 H (70-110) mg/dL 01/21/25 Range/Units 11:44 POC Glucose (mg/dL) 133 H (70-110) mg/dL Microbiology - Last 24 Hours (Table) 01/15/25 16:38 Blood Culture - Final Blood Assessment and Plan Assessment: 1. End-stage renal disease on hemodialysis. Currently with right IJ permacath. He was recently discharged from [facility] due to issues with insurance coverage. Outpatient chair time to be arranged upon discharge. 2. Volume overload 3. Bilateral lower extremity cellulitis 4. CKD mineral bone disorder 5. COPD Plan: Seen on HD today Discharge planning to arrange for outpatient hemodialysis. Patient will be most likely be on Thursday schedule at [facility] Continue with Bumex, increase dose Continue Flomax Continue with antibiotics.
[2025-01-21] MEDS: VANCOMYCIN 2,250 MG in SODIUM CHLORIDE 0.9% 500 ML 500 ML IVPB ONE (13:41)
--- NOTE | 2025-01-21 15:01 | P.PN ---
Subjective Progress Note Date: 01/21/25 Principal diagnosis: Reason for follow-up with bilateral lower extremity ulcer and cellulitis Patient is a 55-year-old male with a past medical history significant for Asthma, Heart Failure, COPD, Diabetes Mellitus, Deep Vein Thrombosis (DVT), Myocardial Infarction (NM), Sleep Apnea/CPAP/BIPAP, Vascular Disorder, end-stage renal disease on hemodialysis on the right chest wall permacatheter also history of bilateral lower extremity ulcers and cellulitis presented to hospital with worsening swelling redness and drainage specially to the right lower extremity has been diagnosed with cellulitis prompting this consultation. On today's evaluation that is 01/22/2024, patient did have a temperature of 98.1 F this afternoon and denies having any chills, patient is on room air and breathing comfortably no chest pain or cough, the patient did not have any nausea vomiting abdominal pain or any diarrhea denies pain to bilateral lower extremity no drainage. Patient did have a vancomycin random of 12.9 blood culture has been negative Objective - Vital Signs Vital signs: Vital Signs Temp 98.1 F 01/21/25 13:55 Pulse 61 01/21/25 13:55 Resp 16 01/21/25 13:55 BP 142/82 01/21/25 13:55 Pulse Ox 98 01/21/25 13:55 FiO2 Intake & Output 01/20/25 01/21/25 01/21/25 18:59 06:59 18:59 Other: # Voids 1 # Bowel Movements 1 - Exam GENERAL DESCRIPTION: Middle-age male lying in bed in no distress RESPIRATORY SYSTEM: Unlabored breathing , decreased breath sounds at bases HEART: S1 S2 regular rate and rhythm , ABDOMEN: Soft , no tenderness EXTREMITIES: Leg wounds are currently dressed - Labs CBC & Chem 7: 01/20/25 03:59 01/20/25 03:59 Labs: Abnormal Lab Results - Last 24 Hours (Table) 01/20/25 01/20/25 01/21/25 Range/Units 17:10 20:57 05:58 POC Glucose (mg/dL) 179 H 174 H 116 H (70-110) mg/dL 01/21/25 Range/Units 11:44 POC Glucose (mg/dL) 133 H (70-110) mg/dL Microbiology - Last 24 Hours (Table) 01/15/25 16:38 Blood Culture - Final Blood Assessment and Plan (1) Bilateral lower leg cellulitis Current Visit: Yes Status: Acute Code(s): L03.116 - CELLULITIS OF LEFT LOWER LIMB; L03.115 - CELLULITIS OF RIGHT LOWER LIMB SNOMED Code(s): 539053622 (2) Bilateral leg ulcer Current Visit: No Status: Acute Code(s): L97.919 - NON-PRS CHRONIC ULC UNSP PRT OF R LOW LEG W UNSP SEVERITY; L97.929 - NON-PRS CHRONIC ULC UNSP PRT OF L LOW LEG W UNSP SEVERITY SNOMED Code(s): 87608042 (3) Sepsis Current Visit: Yes Status: Acute Code(s): A41.9 - SEPSIS, UNSPECIFIED ORGANISM SNOMED Code(s): 95022568 Plan: 1patient presented to hospital with sepsis in this patient who did have fever tachycardia elevated white meeting criteria for SIRS/Sepsis source likely lower extremity cellulitis in this patient who did have a bilateral lower extremity venous stasis ulcer with cellulitis more marked to the right lower extremity 2tetracycline allergy 3patient did have resolution of his fever and the patient white count normalized 4patient seem to have shown clinical improvement as well as bilateral lower extremity ulcer and cellulitis, to continue with IV vancomycin pharmacy to dose along with local wound care with Aquacel dressing and Bobby wrap change every 48 hours Dictation was produced using [employer] dictation software. please excuse any grammatical, word or spelling errors.
[2025-01-21 17:02] LABS: Glucose,Whole Blood 154 mg/dL (70-110)
[2025-01-21 20:49] LABS: Glucose,Whole Blood 169 mg/dL (70-110)
[2025-01-22 06:28] LABS: Glucose,Whole Blood 147 mg/dL (70-110)
--- NOTE | 2025-01-22 10:42 | P.PN ---
Subjective Progress Note Date: 01/22/25 Subjective Patient seen this morning. He had no acute complaints. Awaiting for dialysis to be set up. 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 Continue Vancomycin dosed per pharmacy. Monitor renal function while on Vanc. Follow BCx. Continue NS at 75 cc/hr. ID recommending 1 more week of vancomycin after dialysis. Case management to arrange for vancomycin after dialysis. ESRD: Nephrology consulted for HD TTS schedule. Systolic CHF (EF 20 to 25%), NYHA class III: ARB, BB as below. Not in acute exacerbation. COPD without exacerbation: DuoNeb QID + Q2H PRN SOB/wheezing. Symbicort 2 INH BID. Anemia of chronic disease in the setting of renal disease HTN: Amlodipine 10 mg PO QD. Coreg 6.25 mg PO BID. Losartan 50 mg PO QD. CAD: Lipitor 80 mg PO QHS. Diabetes mellitus: Lantus 60 units QHS. ISS + Accuchecks ACHS along with hypoglycemic precautions. BPH: Flomax 0.4 mg PO QD. CODE STATUS: FULL CODE DVT Prophylaxis: Lovenox SQ GI Prophylaxis: Disposition: Awaiting for outpatient dialysis to be set up Objective - Vital Signs Vital signs: Vital Signs Temp 98.1 F 01/22/25 07:37 Pulse 69 01/22/25 09:35 Resp 16 01/22/25 07:37 BP 130/81 01/22/25 07:37 Pulse Ox 95 01/22/25 07:37 FiO2 Intake & Output 01/21/25 01/22/25 01/22/25 18:59 06:59 18:59 Intake Total 1400 Output Total 7400 Balance -6000 Intake: Hemodialysis 1400 Output: Hemodialysis 4400 Hemodialysis Net Amount 3000 Other: Voiding Method Toilet # Voids 3 2 - Labs CBC & Chem 7: 01/20/25 03:59 01/20/25 03:59 Labs: Abnormal Lab Results - Last 24 Hours (Table) 01/21/25 01/21/25 01/21/25 Range/Units 11:44 17:02 20:47 POC Glucose (mg/dL) 133 H 154 H 169 H (70-110) mg/dL 01/22/25 Range/Units 06:26 POC Glucose (mg/dL) 147 H (70-110) mg/dL
[2025-01-22 11:28] LABS: Glucose,Whole Blood 188 mg/dL (70-110)
--- NOTE | 2025-01-22 12:37 | P.PN ---
Subjective Progress Note Date: 01/22/25 Patient is seen for follow-up for end-stage renal disease. No new complaints. Patient is awake, comfortable, no acute distress. Examination of the heart S1 and S2 Examination of the lungs bilateral breath sounds are heard Abdomen is soft nontender Examination of lower extremities shows bilateral legs to be wrapped. +edema Objective - Vital Signs Vital signs: Vital Signs Temp 98.1 F 01/22/25 07:37 Pulse 69 01/22/25 09:35 Resp 16 01/22/25 07:37 BP 130/81 01/22/25 07:37 Pulse Ox 95 01/22/25 07:37 FiO2 Intake & Output 01/21/25 01/22/25 01/22/25 18:59 06:59 18:59 Intake Total 1400 Output Total 7400 Balance -6000 Intake: Hemodialysis 1400 Output: Hemodialysis 4400 Hemodialysis Net Amount 3000 Other: Voiding Method Toilet # Voids 3 2 - Labs CBC & Chem 7: 01/20/25 03:59 01/20/25 03:59 Labs: Abnormal Lab Results - Last 24 Hours (Table) 01/21/25 01/21/25 01/21/25 Range/Units 11:44 17:02 20:47 POC Glucose (mg/dL) 133 H 154 H 169 H (70-110) mg/dL 01/22/25 Range/Units 06:26 POC Glucose (mg/dL) 147 H (70-110) mg/dL Assessment and Plan Assessment: 1. End-stage renal disease on hemodialysis. Currently with right IJ permacath. He was recently discharged from long term due to issues with insurance coverage. Outpatient chair time to be arranged upon discharge. 2. Volume overload 3. Bilateral lower extremity cellulitis 4. CKD mineral bone disorder 5. COPD Plan: Discharge planning to arrange for outpatient hemodialysis. Patient will be most likely be on Thursday schedule at [facility] Continue HD TTS while inpatient Continue with Bumex, increase dose Continue Flomax Continue with antibiotics.
--- NOTE | 2025-01-22 15:52 | P.PN ---
Subjective Progress Note Date: 01/22/25 Principal diagnosis: Reason for follow-up with bilateral lower extremity ulcer and cellulitis Patient is a 55-year-old male with a past medical history significant for Asthma, Heart Failure, COPD, Diabetes Mellitus, Deep Vein Thrombosis (DVT), Myocardial Infarction (OR), Sleep Apnea/CPAP/BIPAP, Vascular Disorder, end-stage renal disease on hemodialysis on the right chest wall permacatheter also history of bilateral lower extremity ulcers and cellulitis presented to hospital with worsening swelling redness and drainage specially to the right lower extremity has been diagnosed with cellulitis prompting this consultation. On today's evaluation that is 01/22/2025, Patient is afebrile patient is currently on room air and denies having any shortness of breath, the patient denies any chest pain or cough, the patient denies any nausea vomiting did not have any abdominal pain and no diarrhea and denies pain to the lower extremity. No new labs has been obtained today Objective - Vital Signs Vital signs: Vital Signs Temp 98.1 F 01/22/25 13:01 Pulse 64 01/22/25 15:24 Resp 16 01/22/25 13:01 BP 135/81 01/22/25 13:01 Pulse Ox 100 01/22/25 13:01 FiO2 Intake & Output 01/21/25 01/22/25 01/22/25 18:59 06:59 18:59 Intake Total 1400 Output Total 7400 Balance -6000 Intake: Hemodialysis 1400 Output: Hemodialysis 4400 Hemodialysis Net Amount 3000 Other: Voiding Method Toilet # Voids 3 2 - Exam GENERAL DESCRIPTION: Middle-age male lying in bed in no distress RESPIRATORY SYSTEM: Unlabored breathing , decreased breath sounds at bases HEART: S1 S2 regular rate and rhythm , ABDOMEN: Soft , no tenderness EXTREMITIES: Leg wounds are currently dressed - Labs CBC & Chem 7: 01/20/25 03:59 01/20/25 03:59 Labs: Abnormal Lab Results - Last 24 Hours (Table) 01/21/25 01/21/25 01/22/25 Range/Units 17:02 20:47 06:26 POC Glucose (mg/dL) 154 H 169 H 147 H (70-110) mg/dL 01/22/25 Range/Units 11:26 POC Glucose (mg/dL) 188 H (70-110) mg/dL Assessment and Plan (1) Bilateral lower leg cellulitis Current Visit: Yes Status: Acute Code(s): L03.116 - CELLULITIS OF LEFT LOWER LIMB; L03.115 - CELLULITIS OF RIGHT LOWER LIMB SNOMED Code(s): 619666914 (2) Bilateral leg ulcer Current Visit: No Status: Acute Code(s): L97.919 - NON-PRS CHRONIC ULC UNSP PRT OF R LOW LEG W UNSP SEVERITY; L97.929 - NON-PRS CHRONIC ULC UNSP PRT OF L LOW LEG W UNSP SEVERITY SNOMED Code(s): 52176573 (3) Sepsis Current Visit: Yes Status: Acute Code(s): A41.9 - SEPSIS, UNSPECIFIED ORGANISM SNOMED Code(s): 63330752 Plan: 1patient presented to hospital with sepsis in this patient who did have fever tachycardia elevated white meeting criteria for SIRS/Sepsis source likely lower extremity cellulitis in this patient who did have a bilateral lower extremity venous stasis ulcer with cellulitis more marked to the right lower extremity 2tetracycline allergy 3patient did have resolution of his fever and the patient white count normalized 4patient has shown clinical improvement as well as bilateral lower extremity ulcer and cellulitis, to continue with IV vancomycin pharmacy to dose along with local wound care with Aquacel dressing and Bobby wrap change every 48 hours and monitor clinical course closely Dictation was produced using [employer] dictation software. please excuse any gramm atical, word or spelling errors. Time with Patient: Less than 30
[2025-01-22 17:06] LABS: Glucose,Whole Blood 224 mg/dL (70-110)
[2025-01-22 20:04] LABS: Glucose,Whole Blood 194 mg/dL (70-110)
[2025-01-23 06:19] LABS: Glucose,Whole Blood 152 mg/dL (70-110)
[2025-01-23 11:29] LABS: Glucose,Whole Blood 228 mg/dL (70-110)
--- NOTE | 2025-01-23 13:13 | P.PN ---
Subjective Progress Note Date: 01/23/25 Subjective I discussed with case management this morning who said there is still waiting for approval for outpatient dialysis. Patient seen this morning. He has no acute complaints. 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 Continue Vancomycin dosed per pharmacy. Monitor renal function while on Vanc. Follow BCx. Continue NS at 75 cc/hr. ID recommending 1 more week of vancomycin after dialysis. Infectious disease gave prescription for vancomycin to case management. ESRD: Nephrology consulted for HD TTS schedule. Systolic CHF (EF 20 to 25%), NYHA class III: ARB, BB as below. Not in acute ex acerbation. COPD without exacerbation: DuoNeb QID + Q2H PRN SOB/wheezing. Symbicort 2 INH BID. Anemia of chronic disease in the setting of renal disease HTN: Amlodipine 10 mg PO QD. Coreg 6.25 mg PO BID. Losartan 50 mg PO QD. CAD: Lipitor 80 mg PO QHS. Diabetes mellitus: Lantus 60 units QHS. ISS + Accuchecks ACHS along with hypoglycemic precautions. BPH: Flomax 0.4 mg PO QD. CODE STATUS: FULL CODE DVT Prophylaxis: Lovenox SQ GI Prophylaxis: Disposition: Awaiting for outpatient dialysis to be set up Objective - Vital Signs Vital signs: Vital Signs Temp 97.6 F 01/23/25 06:55 Pulse 72 01/23/25 13:05 Resp 20 01/23/25 11:32 BP 149/93 01/23/25 06:55 Pulse Ox 94 L 01/23/25 06:55 FiO2 Intake & Output 01/22/25 01/23/25 01/23/25 18:59 06:59 18:59 Intake Total 500 Balance 500 Intake: Oral 500 Other: Voiding Method Toilet Toilet # Voids 3 3 - Labs CBC & Chem 7: 01/20/25 03:59 01/20/25 03:59 Labs: Abnormal Lab Results - Last 24 Hours (Table) 01/22/25 01/22/25 01/23/25 Range/Units 17:05 20:03 06:18 POC Glucose (mg/dL) 224 H 194 H 152 H (70-110) mg/dL 01/23/25 Range/Units 11:26 POC Glucose (mg/dL) 228 H (70-110) mg/dL
--- NOTE | 2025-01-23 14:44 | P.PN ---
Subjective Patient is a 55 year-old male with end-stage renal disease on hemodialysis for about 6 months now (Thu, Thu, Thu). Patient was recently discharged home from long-term facility with inpatient dialysis. His last dialysis was last Thursday, Next session scheduled is tomorrow. knowledge manager is currently working on the approval for outpatient dialysis. Access is right IJ permacath. Patient has no acute complaints today, he reports eating, urinates and his last bowl movement was in the morning. He denies any chest pain, SOB or abdominal pain. Objective - Vital Signs Vital signs: Vital Signs Temp 97.6 F 01/23/25 06:55 Pulse 70 01/23/25 13:14 Resp 20 01/23/25 11:32 BP 149/93 01/23/25 06:55 Pulse Ox 94 L 01/23/25 06:55 FiO2 Intake & Output 01/22/25 01/23/25 01/23/25 18:59 06:59 18:59 Intake Total 500 Balance 500 Intake: Oral 500 Other: Voiding Method Toilet Toilet # Voids 3 3 - Exam General: no acute complains today. Lungs: clear to asscultation Bilaterally Heart: S1, S2 ascultated, no murmurs. MSK: bilateral LE bandages Abdomen: Soft, obesity - Labs CBC & Chem 7: 01/20/25 03:59 01/20/25 03:59 Labs: Abnormal Lab Results - Last 24 Hours (Table) 01/22/25 01/22/25 01/23/25 Range/Units 17:05 20:03 06:18 POC Glucose (mg/dL) 224 H 194 H 152 H (70-110) mg/dL 01/23/25 Range/Units 11:26 POC Glucose (mg/dL) 228 H (70-110) mg/dL Assessment and Plan Plan: 1. End stage renal Disease: on Hemodialysis every Thu, Thu, and Thu. 2. Anemia of Chronic disease: patient last Hgb is 10.0 (01/20) 3. Bilateral Lower extremities cellulites: On Vancomycin, WBCs were 11.15 on admission, trended down to 6.27 (01/20). Continue with Hemodialysis (scheduled for tomorrow) awaiting approval for outpatient dialysis. Darrel Benton MD PGY1, Internal Medicine. Nephrology service. I have seen and examined the patient with resident and agree with A&P as written. Check iron studies.
[2025-01-23 17:03] LABS: Glucose,Whole Blood 221 mg/dL (70-110)
[2025-01-23 20:40] LABS: Glucose,Whole Blood 205 mg/dL (70-110)
[2025-01-23 22:21] LABS: Ferritin 660.0 ng/mL (22.0-322.0); Iron 33.0 UG/DL (65-175); Total Iron Binding Capacity 242.0 UG/DL (228-460)
[2025-01-24 06:08] LABS: Glucose,Whole Blood 136 mg/dL (70-110)
[2025-01-24 12:10] LABS: Glucose,Whole Blood 154 mg/dL (70-110)
--- NOTE | 2025-01-24 12:59 | P.PN ---
Subjective Patient was seen at bedside today. Dialysis was today at 9am, Access is right IJ permacath. Next session scheduled is Linnea. clinical trial data manager is still working on the approval for outpatient dialysis. Has no complaints today, reports eating, urinates and his last bowl movement was in the morning. He denies any chest pain, SOB or abdominal pain. Objective - Vital Signs Vital signs: Vital Signs Temp 97.9 F 01/24/25 07:11 Pulse 67 01/24/25 09:20 Resp 16 01/24/25 07:11 BP 138/85 01/24/25 07:11 Pulse Ox 90 L 01/24/25 07:11 FiO2 Intake & Output 01/23/25 01/24/25 01/24/25 18:59 06:59 18:59 Intake Total 200 Balance 200 Intake: Oral 200 Other: Voiding Method Toilet Toilet # Voids 3 2 - Exam Patient's vitals were reviewed, General: patient is no acute distress MSK: LE dressing dry, changed last night. - Labs CBC & Chem 7: 01/20/25 03:59 01/20/25 03:59 Labs: Abnormal Lab Results - Last 24 Hours (Table) 01/23/25 01/23/25 01/23/25 Range/Units 03:08 11:26 17:02 POC Glucose (mg/dL) 228 H 221 H (70-110) mg/dL Iron 33 L (65-175) UG/DL % Saturation 13.64 L (15.00-50.00) Transferrin 173.0 L (204.0-354.0) mg/dL Ferritin 660.0 H (22.0-322.0) ng/mL 01/23/25 01/24/25 Range/Units 20:39 06:07 POC Glucose (mg/dL) 205 H 136 H (70-110) mg/dL Iron (65-175) UG/DL % Saturation (15.00-50.00) Transferrin (204.0-354.0) mg/dL Ferritin (22.0-322.0) ng/mL Assessment and Plan Plan: 1. End stage renal Disease: on Hemodialysis every Tue, Linnea, and Sat. 2. Anemia of Chronic disease: patient last Hgb is 10.0 (01/20), Iron is 33, sat% 13.64, transferrin 173.0, ferritin 660.0 (01/23). 3. Bilateral Lower extremities cellulites: On Vancomycin. Hemodialysis done today at 9am, Heparin 1000 given 2 doses every hour. Continue Bumex 2 mg/BID IV iron ferric gluconate (Ferrlecit) 125 for 3 day. awaiting approval for outpatient dialysis. Darrel Benton MD PGY1, Internal Medicine. Nephrology service. I have seen and examined the patient with resident and agree with A&P as written.
--- NOTE | 2025-01-24 13:26 | P.PN ---
Subjective Progress Note Date: 01/24/25 Hospital Course: A 55-year-old male with past medical history of ESRD on HD, systolic HFrEF EF 20 to 25%, COPD, anemia of chronic disease, hypertension, CAD, insulin-dependent diabetes, BPH, who presented to the ER for bilateral lower extremity wounds, admitted for management of sepsis secondary to bilateral cellulitis, ID consulted, patient was started on broad-spectrum antibiotics with vancomycin. Plan for 1 more week of vancomycin after dialysis, prescription provided by ID. Case management is working on outpatient hemodialysis set up. 01/24/2025: Patient was seen examined at bedside, was undergoing hemodialysis. He denied any complaints, no shortness of breath, no chest or abdominal pain. Discussed with RN and case management, patient is medically optimized for discharge, pending outpatient hemodialysis set up, possibly tomorrow. His glucose is controlled. He is afebrile with heart rate in 60s, BP 138/85, satting well on room air. Pertinent positives and negatives as discussed above, a complete review of systems was performed and all other systems are negative. Vitals Signs Reviewed. General: [Obese, nontoxic, chronically ill-appearing Derm: [warm], [dry] Head: [atraumatic], [normocephalic], [symmetric] Eyes: [EOMI], [no lid lag], [anicteric sclera] Mouth: [no lip lesion], [mucus membranes moist] Cardiovascular: [S1S2 reg], [no murmur] Lungs: [CTA bilateral], [no rhonchi, no rales] , [no accessory muscle use] Abdominal: [soft], [ nontender to palpation], [no guarding], [no appreciable organomegaly] Ext: [Bilateral lower extremities wrapped Neuro: [ CN II-XI grossly intact], [no focal neuro deficits] Psych: [Alert], [oriented], [appropriate affect] Assessment and Plan: Sepsis secondary to bilateraly cellulitis: ID on board. Continue Vancomycin do sed per pharmacy. Monitor renal function while on Vanc. Follow BCx. Continue NS at 75 cc/hr. ID recommending 1 more week of vancomycin after dialysis. Infectious disease gave prescription for vancomycin to case management. ESRD: Nephrology consulted for HD TTS schedule. Systolic CHF (EF 20 to 25%), NYHA class III: Not in acute exacerbation: Continue Bumex 2 mg p.o. twice daily, Coreg 6.25 twice daily, losartan 50 daily, COPD without exacerbation: DuoNeb QID + Q2H PRN SOB/wheezing. Symbicort 2 INH BID. Anemia of chronic disease in the setting of renal disease HTN: Amlodipine 10 mg PO QD. Coreg 6.25 mg PO BID. Losartan 50 mg PO QD. CAD: Lipitor 80 mg PO QHS. Diabetes mellitus: Lantus 60 units QHS. ISS + Accuchecks ACHS along with hypoglycemic precautions. BPH: Flomax 0.4 mg PO QD. CODE STATUS: FULL CODE DVT Prophylaxis: Lovenox SQ Patient is medically cleared for discharge Objective - Vital Signs Vital signs: Vital Signs Temp 97.9 F 01/24/25 07:11 Pulse 67 01/24/25 09:20 Resp 16 01/24/25 07:11 BP 138/85 01/24/25 07:11 Pulse Ox 90 L 01/24/25 07:11 FiO2 Intake & Output 01/23/25 01/24/25 01/24/25 18:59 06:59 18:59 Intake Total 200 Balance 200 Intake: Oral 200 Other: Voiding Method Toilet Toilet Toilet # Voids 3 2 - Labs CBC & Chem 7: 01/20/25 03:59 01/20/25 03:59 Labs: Abnormal Lab Results - Last 24 Hours (Table) 01/23/25 01/23/25 01/23/25 Range/Units 03:08 17:02 20:39 POC Glucose (mg/dL) 221 H 205 H (70-110) mg/dL Iron 33 L (65-175) UG/DL % Saturation 13.64 L (15.00-50.00) Transferrin 173.0 L (204.0-354.0) mg/dL Ferritin 660.0 H (22.0-322.0) ng/mL 01/24/25 01/24/25 Range/Units 06:07 12:09 POC Glucose (mg/dL) 136 H 154 H (70-110) mg/dL Iron (65-175) UG/DL % Saturation (15.00-50.00) Transferrin (204.0-354.0) mg/dL Ferritin (22.0-322.0) ng/mL
[2025-01-24] MEDS: SODIUM FERRIC GLUCONAT-SUCROSE 125 MG in SODIUM CHLORIDE 0.9% 100 ML IVPB SCH (14:46)
[2025-01-24] MEDS: VANCOMYCIN 2,250 MG in SODIUM CHLORIDE 0.9% 500 ML 500 ML IVPB ONE (14:46)
--- NOTE | 2025-01-24 15:42 | P.PN ---
Subjective Progress Note Date: 01/24/25 Principal diagnosis: Reason for follow-up with bilateral lower extremity ulcer and cellulitis Patient is a 55-year-old male with a past medical history significant for Asthma, Heart Failure, COPD, Diabetes Mellitus, Deep Vein Thrombosis (DVT), Myocardial Infarction ([place]), Sleep Apnea/CPAP/BIPAP, Vascular Disorder, end-stage renal disease on hemodialysis on the right chest wall permacatheter also history of bilateral lower extremity ulcers and cellulitis presented to hospital with worsening swelling redness and drainage specially to the right lower extremity has been diagnosed with cellulitis prompting this consultation. On today's evaluation that is 01/24/2025, Patient is afebrile this morning patient was sleepy but arousable denies having any chest pain shortness of breath or cough no vomiting or diarrhea has been reported patient is currently on 2 L nasal oxygen. Patient did have a creatinine 1.2 no CBC was done blood culture repeat has been negative Objective - Vital Signs Vital signs: Vital Signs Temp 97.6 F 01/24/25 14:55 Pulse 72 01/24/25 14:55 Resp 18 01/24/25 14:55 BP 137/78 01/24/25 14:55 Pulse Ox 97 01/24/25 14:55 FiO2 Intake & Output 01/23/25 01/24/25 01/24/25 18:59 06:59 18:59 Intake Total 200 Balance 200 Intake: Oral 200 Other: Voiding Method Toilet Toilet Toilet # Voids 3 2 3 - Exam GENERAL DESCRIPTION: Middle-age male lying in bed in no distress RESPIRATORY SYSTEM: Unlabored breathing , decreased breath sounds at bases HEART: S1 S2 regular rate and rhythm , ABDOMEN: Soft , no tenderness EXTREMITIES: Leg wounds are currently dressed - Labs CBC & Chem 7: 01/20/25 03:59 01/20/25 03:59 Labs: Abnormal Lab Results - Last 24 Hours (Table) 01/23/25 01/23/25 01/23/25 Range/Units 03:08 17:02 20:39 POC Glucose (mg/dL) 221 H 205 H (70-110) mg/dL Iron 33 L (65-175) UG/DL % Saturation 13.64 L (15.00-50.00) Transferrin 173.0 L (204.0-354.0) mg/dL Ferritin 660.0 H (22.0-322.0) ng/mL 01/24/25 01/24/25 Range/Units 06:07 12:09 POC Glucose (mg/dL) 136 H 154 H (70-110) mg/dL Iron (65-175) UG/DL % Saturation (15.00-50.00) Transferrin (204.0-354.0) mg/dL Ferritin (22.0-322.0) ng/mL Assessment and Plan (1) Bilateral lower leg cellulitis Current Visit: Yes Status: Acute Code(s): L03.116 - CELLULITIS OF LEFT LOWER LIMB; L03.115 - CELLULITIS OF RIGHT LOWER LIMB SNOMED Code(s): 508372424 (2) Bilateral leg ulcer Current Visit: No Status: Acute Code(s): L97.919 - NON-PRS CHRONIC ULC UNSP PRT OF R LOW LEG W UNSP SEVERITY; L97.929 - NON-PRS CHRONIC ULC UNSP PRT OF L LOW LEG W UNSP SEVERITY SNOMED Code(s): 52432128 (3) Sepsis Current Visit: Yes Status: Acute Code(s): A41.9 - SEPSIS, UNSPECIFIED ORGANISM SNOMED Code(s): 34618544 Plan: 1patient presented to hospital with sepsis in this patient who did have fever tachycardia elevated white meeting criteria for SIRS/Sepsis source likely lower extremity cellulitis in this patient who did have a bilateral lower extremity venous stasis ulcer with cellulitis more marked to the right lower extremity 2tetracycline allergy 3patient did have resolution of his fever and the patient white count normalized, also has shown clinical improvement as well as bilateral lower extremity ulcer and cellulitis, 3patient to continue with IV vancomycin pharmacy to dose along with local wound care with Aquacel dressing and Bobby wrap change every 48 hours, Will not need any antibiotics on discharge Dictation was produced using [employer] dictation software. please excuse any grammatical, word or spelling errors. Time with Patient: Less than 30
--- NOTE | 2025-01-24 15:42 | P.PN ---
Subjective Progress Note Date: 01/23/25 Principal diagnosis: Reason for follow-up with bilateral lower extremity ulcer and cellulitis Patient is a 55-year-old male with a past medical history significant for Asthma, Heart Failure, COPD, Diabetes Mellitus, Deep Vein Thrombosis (DVT), Myocardial Infarction ([place]), Sleep Apnea/CPAP/BIPAP, Vascular Disorder, end-stage renal disease on hemodialysis on the right chest wall permacatheter also history of bilateral lower extremity ulcers and cellulitis presented to hospital with worsening swelling redness and drainage specially to the right lower extremity has been diagnosed with cellulitis prompting this consultation. On today's evaluation that is 01/23/2025, patient has been afebrile, patient is breathing comfortably and is currently on room air, patient denies having any chest pain and cough, patient denies nausea vomiting or diarrhea and no abdominal pain patient denies any worsening pain to bilateral lower extremity. No new lab has been obtained today blood culture negative Objective - Vital Signs Vital signs: Vital Signs Temp 98 F 01/23/25 14:03 Pulse 74 01/23/25 14:03 Resp 18 01/23/25 14:03 BP 159/83 01/23/25 14:03 Pulse Ox 93 L 01/23/25 14:03 FiO2 Intake & Output 01/22/25 01/23/25 01/23/25 18:59 06:59 18:59 Intake Total 500 Balance 500 Intake: Oral 500 Other: Voiding Method Toilet Toilet # Voids 3 3 - Exam GENERAL DESCRIPTION: Middle-age male lying in bed in no distress RESPIRATORY SYSTEM: Unlabored breathing , decreased breath sounds at bases HEART: S1 S2 regular rate and rhythm , ABDOMEN: Soft , no tenderness EXTREMITIES: Leg wounds are currently dressed - Labs CBC & Chem 7: 01/20/25 03:59 01/20/25 03:59 Labs: Abnormal Lab Results - Last 24 Hours (Table) 01/22/25 01/22/25 01/23/25 Range/Units 17:05 20:03 06:18 POC Glucose (mg/dL) 224 H 194 H 152 H (70-110) mg/dL 01/23/25 Range/Units 11:26 POC Glucose (mg/dL) 228 H (70-110) mg/dL Assessment and Plan (1) Bilateral lower leg cellulitis Current Visit: Yes Status: Acute Code(s): L03.116 - CELLULITIS OF LEFT LOWER LIMB; L03.115 - CELLULITIS OF RIGHT LOWER LIMB SNOMED Code(s): 599991108 (2) Bilateral leg ulcer Current Visit: No Status: Acute Code(s): L97.919 - NON-PRS CHRONIC ULC UNSP PRT OF R LOW LEG W UNSP SEVERITY; L97.929 - NON-PRS CHRONIC ULC UNSP PRT OF L LOW LEG W UNSP SEVERITY SNOMED Code(s): 36895802 (3) Sepsis Current Visit: Yes Status: Acute Code(s): A41.9 - SEPSIS, UNSPECIFIED ORGANISM SNOMED Code(s): 45642650 Plan: 1patient presented to hospital with sepsis in this patient who did have fever tachycardia elevated white meeting criteria for SIRS/Sepsis source likely lower extremity cellulitis in this patient who did have a bilateral lower extremity venous stasis ulcer with cellulitis more marked to the right lower extremity 2tetracycline allergy 3patient did have resolution of his fever and the patient white count normalized, also has shown clinical improvement as well as bilateral lower extremity ulcer and cellulitis, 3patient to continue with IV vancomycin pharmacy to dose along with local wound care with Aquacel dressing and Bobby wrap change every 48 hours and monitor clinical course closely Dictation was produced using [facility] dictation software. please excuse any grammatical, word or spelling errors. Time with Patient: Less than 30
[2025-01-24 16:45] LABS: Glucose,Whole Blood 262 mg/dL (70-110)
[2025-01-24 20:13] LABS: Glucose,Whole Blood 211 mg/dL (70-110)
[2025-01-25 06:04] LABS: Glucose,Whole Blood 144 mg/dL (70-110)
[2025-01-25 12:16] LABS: Glucose,Whole Blood 166 mg/dL (70-110)
--- NOTE | 2025-01-25 13:18 | P.PN ---
Subjective Progress Note Date: 01/25/25 Hospital Course: A 55-year-old male with past medical history of ESRD on HD, systolic HFrEF EF 20 to 25%, COPD, anemia of chronic disease, hypertension, CAD, insulin-dependent diabetes, BPH, who presented to the ER for bilateral lower extremity wounds, admitted for management of sepsis secondary to bilateral cellulitis, ID consulted, patient was started on broad-spectrum antibiotics with vancomycin. Plan for 1 more week of vancomycin after dialysis, prescription provided by ID. Case management is working on outpatient hemodialysis set up. 01/25/2025: Patient was seen examined at bedside. He denied any complaints, no shortness of breath, no chest or abdominal pain. medically optimized for discharge, pending outpatient hemodialysis set up His glucose is controlled. He is afebrile with heart rate in 70s, BP 146/84 satting well on room air. Pertinent positives and negatives as discussed above, a complete review of systems was performed and all other systems are negative. Vitals Signs Reviewed. General: [Obese, nontoxic, chronically ill-appearing Derm: [warm], [dry] Head: [atraumatic], [normocephalic], [symmetric] Eyes: [EOMI], [no lid lag], [anicteric sclera] Mouth: [no lip lesion], [mucus membranes moist] Cardiovascular: [S1S2 reg], [no murmur] Lungs: [CTA bilateral], [no rhonchi, no rales] , [no accessory muscle use] Abdominal: [soft], [ nontender to palpation], [no guarding], [no appreciable organomegaly] Ext: [Bilateral lower extremities wrapped Neuro: [ CN II-XI grossly intact], [no focal neuro deficits] Psych: [Alert], [oriented], [appropriate affect] Assessment and Plan: Sepsis secondary to bilateraly cellulitis: ID on board. Continue Vancomycin do sed per pharmacy. Monitor renal function while on Vanc. Blood cultures negative, per ID, no antibiotics needed at discharge ESRD: Nephrology consulted for HD TTS schedule. Systolic CHF (EF 20 to 25%), NYHA class III: Not in acute exacerbation: Continue Bumex 2 mg p.o. twice daily, Coreg 6.25 twice daily, losartan 50 daily, COPD without exacerbation: DuoNeb QID + Q2H PRN SOB/wheezing. Symbicort 2 INH BID. Anemia of chronic disease in the setting of renal disease HTN: Amlodipine 10 mg PO QD. Coreg 6.25 mg PO BID. Losartan 50 mg PO QD. CAD: Lipitor 80 mg PO QHS. Diabetes mellitus: Lantus 60 units QHS. ISS + Accuchecks ACHS along with hypoglycemic precautions. BPH: Flomax 0.4 mg PO QD. CODE STATUS: FULL CODE DVT Prophylaxis: Lovenox SQ Patient is medically cleared for discharge Objective - Vital Signs Vital signs: Vital Signs Temp 97.9 F 01/25/25 07:07 Pulse 70 01/25/25 09:27 Resp 17 01/25/25 07:07 BP 109/69 01/25/25 07:07 Pulse Ox 93 L 01/25/25 07:07 FiO2 Intake & Output 01/24/25 01/25/25 01/25/25 18:59 06:59 18:59 Intake Total 500 Output Total 5500 Balance -5000 Intake: Hemodialysis 500 Output: Hemodialysis 3000 Hemodialysis Net Amount 2500 Other: Voiding Method Toilet Toilet Toilet # Voids 3 2 3 - Labs CBC & Chem 7: 01/20/25 03:59 01/20/25 03:59 Labs: Abnormal Lab Results - Last 24 Hours (Table) 01/24/25 01/24/25 01/25/25 Range/Units 16:44 20:12 06:02 POC Glucose (mg/dL) 262 H 211 H 144 H (70-110) mg/dL 01/25/25 Range/Units 12:11 POC Glucose (mg/dL) 166 H (70-110) mg/dL
[2025-01-25 17:16] LABS: Glucose,Whole Blood 227 mg/dL (70-110)
--- NOTE | 2025-01-25 17:36 | P.PN ---
Subjective Patient was seen at bedside, hemodialysis yesterday removed 2500. Next session scheduled is Linnea. manager merchandise is still working on the approval for outpatient dialysis. Patient has no complaints today, reports eating, urinates. He denies any chest pain, SOB or abdominal pain. Objective - Vital Signs Vital signs: Vital Signs Temp 97.9 F 01/25/25 07:07 Pulse 70 01/25/25 09:27 Resp 17 01/25/25 07:07 BP 109/69 01/25/25 07:07 Pulse Ox 93 L 01/25/25 07:07 FiO2 Intake & Output 01/24/25 01/25/25 01/25/25 18:59 06:59 18:59 Intake Total 500 Output Total 5500 Balance -5000 Intake: Hemodialysis 500 Output: Hemodialysis 3000 Hemodialysis Net Amount 2500 Other: Voiding Method Toilet Toilet # Voids 3 2 - Exam Patient's vitals were reviewed; General: appears well, no acute complaints Lungs: clear to auscultation bilaterally, no wheezing Heart: S1 and S2 normal, no murmurs. MSK: dressing on Bilateral LE. - Labs CBC & Chem 7: 01/20/25 03:59 01/20/25 03:59 Labs: Abnormal Lab Results - Last 24 Hours (Table) 01/24/25 01/24/25 01/24/25 Range/Units 12:09 16:44 20:12 POC Glucose (mg/dL) 154 H 262 H 211 H (70-110) mg/dL 01/25/25 Range/Units 06:02 POC Glucose (mg/dL) 144 H (70-110) mg/dL Assessment and Plan Plan: 1. End stage renal Disease: on Hemodialysis every Thu, Thu, and Sat. 2. Anemia of Chronic disease: patient last Hgb is 10.0 (01/20), Iron is 33, sat% 13.64, transferrin 173.0, ferritin 660.0 (01/23). 3. Bilateral Lower extremities cellulites: On Vancomycin, dressing is changed every other day. Next Hemodialysis session on Linnea. Continue Bumex 2 mg/BID on IV iron ferric gluconate (Ferrlecit) 125. awaiting approval for outpatient dialysis. Darrel Benton MD PGY1, Internal Medicine. Nephrology service. I have seen and examined the patient with resident and agree with A&P as written. Case discussed with case management.
[2025-01-25 21:02] LABS: Glucose,Whole Blood 170 mg/dL (70-110)
[2025-01-26 06:10] LABS: Glucose,Whole Blood 143 mg/dL (70-110)
--- NOTE | 2025-01-26 08:43 | P.PN ---
Subjective Progress Note Date: 01/25/25 Principal diagnosis: Reason for follow-up with bilateral lower extremity ulcer and cellulitis Patient is a 55-year-old male with a past medical history significant for Asthma, Heart Failure, COPD, Diabetes Mellitus, Deep Vein Thrombosis (DVT), Myocardial Infarction ([place]), Sleep Apnea/CPAP/BIPAP, Vascular Disorder, end-stage renal disease on hemodialysis on the right chest wall permacatheter also history of bilateral lower extremity ulcers and cellulitis presented to hospital with worsening swelling redness and drainage specially to the right lower extremity has been diagnosed with cellulitis prompting this consultation. On today's evaluation that is 01/25/2025,the patient denies any fever or any chills, patient is breathing comfortably on room air, the patient denies chest pain shortness of breath and no significant cough, patient denies abdominal pain, no nausea vomiting or diarrhea. Denies pain to the lower extremity. No new lab has been obtained today Objective - Vital Signs Vital signs: Vital Signs Temp 97.9 F 01/25/25 07:07 Pulse 70 01/25/25 09:27 Resp 17 01/25/25 07:07 BP 109/69 01/25/25 07:07 Pulse Ox 93 L 01/25/25 07:07 FiO2 Intake & Output 01/24/25 01/25/25 01/25/25 18:59 06:59 18:59 Intake Total 500 Output Total 5500 Balance -5000 Intake: Hemodialysis 500 Output: Hemodialysis 3000 Hemodialysis Net Amount 2500 Other: Voiding Method Toilet Toilet Toilet # Voids 3 2 3 - Exam GENERAL DESCRIPTION: Middle-age male lying in bed in no distress RESPIRATORY SYSTEM: Unlabored breathing , decreased breath sounds at bases HEART: S1 S2 regular rate and rhythm , ABDOMEN: Soft , no tenderness EXTREMITIES: Leg wounds are currently dressed - Labs CBC & Chem 7: 01/20/25 03:59 01/20/25 03:59 Labs: Abnormal Lab Results - Last 24 Hours (Table) 01/24/25 01/24/25 01/25/25 Range/Units 16:44 20:12 06:02 POC Glucose (mg/dL) 262 H 211 H 144 H (70-110) mg/dL 01/25/25 Range/Units 12:11 POC Glucose (mg/dL) 166 H (70-110) mg/dL Assessment and Plan (1) Bilateral lower leg cellulitis Current Visit: Yes Status: Acute Code(s): L03.116 - CELLULITIS OF LEFT LOWER LIMB; L03.115 - CELLULITIS OF RIGHT LOWER LIMB SNOMED Code(s): 333479951 (2) Bilateral leg ulcer Current Visit: No Status: Acute Code(s): L97.919 - NON-PRS CHRONIC ULC UNSP PRT OF R LOW LEG W UNSP SEVERITY; L97.929 - NON-PRS CHRONIC ULC UNSP PRT OF L LOW LEG W UNSP SEVERITY SNOMED Code(s): 00973253 (3) Sepsis Current Visit: Yes Status: Acute Code(s): A41.9 - SEPSIS, UNSPECIFIED ORGANISM SNOMED Code(s): 98110922 Plan: 1patient presented to hospital with sepsis in this patient who did have fever tachycardia elevated white meeting criteria for SIRS/Sepsis source likely lower extremity cellulitis in this patient who did have a bilateral lower extremity venous stasis ulcer with cellulitis more marked to the right lower extremity 2tetracycline allergy 3patient did have resolution of his fever and the patient white count normalized, also has shown clinical improvement as well as bilateral lower extremity ulcer and cellulitis, 3patient currently being treated with IV vancomycin pharmacy to dose along with local wound care with Aquacel dressing and Bobby wrap change every 48 hours, however the patient has received adequate IV while inpatient and will not need any antibiotic on discharge Dictation was produced using [employer] dictation software. please excuse any grammatical, word or spelling errors. Time with Patient: Less than 30
[2025-01-26 12:11] LABS: Glucose,Whole Blood 187 mg/dL (70-110)
--- NOTE | 2025-01-26 13:36 | P.PN ---
Subjective Progress Note Date: 01/26/25 Hospital Course: A 55-year-old male with past medical history of ESRD on HD, systolic HFrEF EF 20 to 25%, COPD, anemia of chronic disease, hypertension, CAD, insulin-dependent diabetes, BPH, who presented to the ER for bilateral lower extremity wounds, admitted for management of sepsis secondary to bilateral cellulitis, ID consulted, patient was started on broad-spectrum antibiotics with vancomycin. Plan for 1 more week of vancomycin after dialysis, prescription provided by ID. Case management is working on outpatient hemodialysis set up. 01/26/2025: Patient was seen examined at bedside. He denied any complaints, no shortness of breath, no chest or abdominal pain. medically optimized for discharge, pending outpatient hemodialysis set up His glucose is controlled. He is afebrile with heart rate in 70s, BP 166/87, 92% on room air Pertinent positives and negatives as discussed above, a complete review of systems was performed and all other systems are negative. Vitals Signs Reviewed. General: [Obese, nontoxic, chronically ill-appearing Derm: Warm, dry Head: Atraumatic, normocephalic, symmetric Eyes: EOMI, no lid lag, anicteric sclera Mouth: No lip lesion, mucus membranes moist Cardiovascular: S1S2 reg, no murmur Lungs: CTA bilateral, no rhonchi, no rales, no accessory muscle use Abdominal: Soft, nontender to palpation, no guarding, no appreciable organomegaly Ext: [Bilateral lower extremities wrapped Neuro: CN II-XI grossly intact, no focal neuro deficits Psych: Alert, oriented, appropriate affect Assessment and Plan: Sepsis secondary to bilateraly cellulitis: ID on board. Continue Vancomycin dosed per pharmacy. Monitor renal function while on Vanc. Blood cultures negative, per ID, no antibiotics needed at discharge ESRD: Nephrology consulted for HD TTS schedule. Systolic CHF (EF 20 to 25%), NYHA class III: Not in acute exacerbation: Continue Bumex 2 mg p.o. twice daily, Coreg 6.25 twice daily, losartan 50 daily, COPD without exacerbation: DuoNeb QID + Q2H PRN SOB/wheezing. Symbicort 2 INH BID. Anemia of chronic disease in the setting of renal disease HTN: Amlodipine 10 mg PO QD. Coreg 6.25 mg PO BID. Losartan 50 mg PO QD. CAD: Lipitor 80 mg PO QHS. Diabetes mellitus: Lantus 60 units QHS. ISS + Accuchecks ACHS along with hypoglycemic precautions. BPH: Flomax 0.4 mg PO QD. CODE STATUS: FULL CODE DVT Prophylaxis: Lovenox SQ Patient is medically cleared for discharge Objective - Vital Signs Vital signs: Vital Signs Temp 98.3 F 01/26/25 07:34 Pulse 80 01/26/25 09:07 Resp 13 01/26/25 07:34 BP 166/87 01/26/25 07:34 Pulse Ox 92 L 01/26/25 07:34 FiO2 Intake & Output 01/25/25 01/26/25 01/26/25 18:59 06:59 18:59 Other: Voiding Method Toilet Toilet Toilet # Voids 1 3 - Labs CBC & Chem 7: 01/20/25 03:59 01/20/25 03:59 Labs: Abnormal Lab Results - Last 24 Hours (Table) 01/25/25 01/25/25 01/26/25 Range/Units 17:15 21:00 06:02 POC Glucose (mg/dL) 227 H 170 H 143 H (70-110) mg/dL 01/26/25 Range/Units 12:09 POC Glucose (mg/dL) 187 H (70-110) mg/dL
--- NOTE | 2025-01-26 13:41 | P.PN ---
Subjective Patient seen at bedside today. He is SOB. eats well and urinates. Denies any chest pain, abdominal pain. Objective - Vital Signs Vital signs: Vital Signs Temp 98.3 F 01/26/25 07:34 Pulse 80 01/26/25 09:07 Resp 13 01/26/25 07:34 BP 166/87 01/26/25 07:34 Pulse Ox 92 L 01/26/25 07:34 FiO2 Intake & Output 01/25/25 01/26/25 01/26/25 18:59 06:59 18:59 Other: Voiding Method Toilet Toilet Toilet # Voids 1 3 - Exam Patient's vitals were reviewed; General: appears well, no acute complaints Lungs: clear to auscultation bilaterally, no wheezing, no accessory muscle use Heart: S1 and S2 normal, no murmurs. MSK: dressing on Bilateral LE. - Labs CBC & Chem 7: 01/20/25 03:59 01/20/25 03:59 Labs: Abnormal Lab Results - Last 24 Hours (Table) 01/25/25 01/25/25 01/25/25 Range/Units 12:11 17:15 21:00 POC Glucose (mg/dL) 166 H 227 H 170 H (70-110) mg/dL 01/26/25 Range/Units 06:02 POC Glucose (mg/dL) 143 H (70-110) mg/dL Assessment and Plan Plan: 1. End stage renal Disease: on Hemodialysis every Tue, Linnea, and Sat. 2. Anemia of Chronic disease: patient last Hgb is 10.0 (01/20), Iron is 33, sat% 13.64, transferrin 173.0, ferritin 660.0 (01/23). 3. Bilateral Lower extremities cellulites: On Vancomycin, dressing is changed every other day. Next Hemodialysis session is Today. Continue Bumex 2 mg/BID on IV iron ferric gluconate (Ferrlecit) 125. awaiting approval for outpatient dialysis. Darrel Benton MD PGY1, Internal Medicine. Nephrology service. I have seen and examined the patient with resident and agree with A&P as written. HD today - goal UF 3L.
--- NOTE | 2025-01-26 13:50 | P.PN ---
Subjective Progress Note Date: 01/26/25 Principal diagnosis: Reason for follow-up with bilateral lower extremity ulcer and cellulitis Patient is a 55-year-old male with a past medical history significant for Asthma, Heart Failure, COPD, Diabetes Mellitus, Deep Vein Thrombosis (DVT), Myocardial Infarction ([place]), Sleep Apnea/CPAP/BIPAP, Vascular Disorder, end-stage renal disease on hemodialysis on the right chest wall permacatheter also history of bilateral lower extremity ulcers and cellulitis presented to hospital with worsening swelling redness and drainage specially to the right lower extremity has been diagnosed with cellulitis prompting this consultation. On today's evaluation that is 01/26/2025,the patient remains to be afebrile, patient is on room air not requiring supplemental oxygen and denies any shortness of breath no chest pain or cough.Patient denies having any nausea or vomiting, no abdominal pain and no diarrhea or pain to bilateral lower extremity. Patient did have vancomycin enema 17.9 no CBC was done today blood culture have been negative Objective - Vital Signs Vital signs: Vital Signs Temp 98.3 F 01/26/25 07:34 Pulse 80 01/26/25 09:07 Resp 13 01/26/25 07:34 BP 166/87 01/26/25 07:34 Pulse Ox 92 L 01/26/25 07:34 FiO2 Intake & Output 01/25/25 01/26/25 01/26/25 18:59 06:59 18:59 Other: Voiding Method Toilet Toilet Toilet # Voids 1 3 - Exam GENERAL DESCRIPTION: Middle-age male lying in bed in no distress RESPIRATORY SYSTEM: Unlabored breathing , decreased breath sounds at bases HEART: S1 S2 regular rate and rhythm , ABDOMEN: Soft , no tenderness EXTREMITIES: Leg wounds are currently dressed - Labs CBC & Chem 7: 01/20/25 03:59 01/20/25 03:59 Labs: Abnormal Lab Results - Last 24 Hours (Table) 01/25/25 01/25/25 01/26/25 Range/Units 17:15 21:00 06:02 POC Glucose (mg/dL) 227 H 170 H 143 H (70-110) mg/dL 01/26/25 Range/Units 12:09 POC Glucose (mg/dL) 187 H (70-110) mg/dL Assessment and Plan (1) Bilateral lower leg cellulitis Current Visit: Yes Status: Acute Code(s): L03.116 - CELLULITIS OF LEFT LOWER LIMB; L03.115 - CELLULITIS OF RIGHT LOWER LIMB SNOMED Code(s): 402023320 (2) Bilateral leg ulcer Current Visit: No Status: Acute Code(s): L97.919 - NON-PRS CHRONIC ULC UNSP PRT OF R LOW LEG W UNSP SEVERITY; L97.929 - NON-PRS CHRONIC ULC UNSP PRT OF L LOW LEG W UNSP SEVERITY SNOMED Code(s): 27759333 (3) Sepsis Current Visit: Yes Status: Acute Code(s): A41.9 - SEPSIS, UNSPECIFIED ORGANISM SNOMED Code(s): 02348375 Plan: 1patient presented to hospital with sepsis in this patient who did have fever tachycardia elevated white meeting criteria for SIRS/Sepsis source likely lower extremity cellulitis in this patient who did have a bilateral lower extremity venous stasis ulcer with cellulitis more marked to the right lower extremity 2tetracycline allergy 3patient did have resolution of his fever and the patient white count normalized, also has shown clinical improvement as well as bilateral lower extremity ulcer and cellulitis, 3patient will continue with the vancomycin pharmacy to dose which is therapeutic while inpatient along with the Aquacel dressing and Bobby wrap to the leg and monitor clinical course closely Dictation was produced using [employer] dictation software. please excuse any grammatical, word or spelling errors. Time with Patient: Less than 30
[2025-01-26 16:18] LABS: Glucose,Whole Blood 104 mg/dL (70-110)
[2025-01-26] MEDS: VANCOMYCIN 2,250 MG in SODIUM CHLORIDE 0.9% 500 ML 500 ML IVPB ONE (17:50)
[2025-01-26 21:11] LABS: Glucose,Whole Blood 241 mg/dL (70-110)
[2025-01-27 06:19] LABS: Glucose,Whole Blood 124 mg/dL (70-110)
--- NOTE | 2025-01-27 09:55 | P.DS ---
Providers Date of admission: 01/15/25 18:32 Attending physician: Monse Armenta MD Consults: 01/15/25 18:30 Consult Physician Routine Consulting Provider: Hieu Alfred Consult Reason/Comments: cellulitis Do you want consulting provider notified?: Yes 01/16/25 09:59 Consult Physician Routine Consulting Provider: Kirsty Esparza Consult Reason/Comments: HD Do you want consulting provider notified?: Yes Primary care physician: Guy Mi Hospital Course: Discharge Diagnosis: Sepsis secondary to bilateral lower extremity cellulitis ESRD on HD Systolic CHF EF 20 to 25% NYHA class III, not in acute exacerbation COPD without acute exacerbation Anemia of chronic disease in setting of renal disease, iron deficiency anemia HTN CAD Type II DM on insulin BPH Hospital Course: A 55-year-old male with past medical history of ESRD on HD, systolic HFrEF EF 20 to 25%, COPD, anemia of chronic disease, hypertension, CAD, insulin-dependent diabetes, BPH, who presented to the ER for bilateral lower extremity wounds, admitted for management of sepsis secondary to bilateral cellulitis, ID consulted, patient was started on broad-spectrum antibiotics with vancomycin. Condition significantly improved on IV antibiotics, patient remained afebrile with resolution of leukocytosis. His discharge was significantly delayed by awaiting for outpatient hemodialysis set up, insurance authorization came through on 01/27, patient to be dialyzed on 01/27 per nephrology and continue his regular schedule starting next week on Thursday. Patient's iron profile showed signs of iron deficiency on top of anemia of chronic disease, patient was provided with 3 doses of Ferrlecit. Per ID, no antibiotics needed at discharge. 01/27: Patient seen examined at bedside, no active complaints, feels ready for discharge. Patient to follow-up with his primary care physician, potato spotter, continue his heart failure medications Patient seen and examined at bedside. Vital signs reviewed and stable. General: [Obese, nontoxic, chronically ill-appearing Derm: Warm, dry Head: Atraumatic, normocephalic, symmetric Eyes: EOMI, no lid lag, anicteric sclera Mouth: No lip lesion, mucus membranes moist Cardiovascular: S1S2 reg, no murmur Lungs: CTA bilateral, no rhonchi, no rales, no accessory muscle use Abdominal: Soft, nontender to palpation, no guarding, no appreciable organomegaly Ext: [Bilateral lower extremities wrapped Neuro: CN II-XI grossly intact, no focal neuro deficits Psych: Alert, oriented, appropriate affect A total of 38 minutes of time were spent preparing this complex discharge summar y. Patient Condition at Discharge: Serious Plan - Discharge Summary Discharge Rx Participant: Yes New Discharge Prescriptions: New Atorvastatin [Lipitor] 80 mg PO HS #30 tab Pantoprazole [Protonix] 40 mg PO DAILY@0730 #30 tab Bumetanide [BUMEX] 2 mg PO AC-BID #60 tab carvediloL [Coreg] 6.25 mg PO BID-W/MEALS #60 tab Losartan [Cozaar] 50 mg PO DAILY #30 tab Ferrous Sulfate [Feosol] 325 mg PO DAILY #30 tab Tamsulosin [Flomax] 0.4 mg PO DAILY #30 cap Continue Insulin Glargine (Lantus) [Lantus Vial] 40 unit SQ BID Insulin Aspart [Insulin Aspart Flexpen] 10 unit SQ AC-TID Discharge Medication List Insulin Aspart [Insulin Aspart Flexpen] 10 unit SQ AC-TID 01/16/25 [History] Insulin Glargine (Lantus) [Lantus Vial] 40 unit SQ BID 01/16/25 [History] Atorvastatin [Lipitor] 80 mg PO HS #30 tab 01/27/25 [Rx] Bumetanide [BUMEX] 2 mg PO AC-BID #60 tab 01/27/25 [Rx] Ferrous Sulfate [Feosol] 325 mg PO DAILY #30 tab 01/27/25 [Rx] Losartan [Cozaar] 50 mg PO DAILY #30 tab 01/27/25 [Rx] Pantoprazole [Protonix] 40 mg PO DAILY@0730 #30 tab 01/27/25 [Rx] Tamsulosin [Flomax] 0.4 mg PO DAILY #30 cap 01/27/25 [Rx] carvediloL [Coreg] 6.25 mg PO BID-W/MEALS #60 tab 01/27/25 [Rx] Follow up Appointment(s)/Referral(s): [facility] ,Carlos Enriquesenius [NON-STAFF] - 1 Week Guy Mi DO [Primary Care Provider] - 1-2 days Patient Instructions/Handouts: Iron Rich Diet (DC) Activity/Diet/Wound Care/Special Instructions: Dialysis is set for Thursday, , Thursday at 12:20 at the [place] office Please, follow-up with your PCP, potato spotter. Aquacel dressing and Bobby wrap to the legs Discharge Disposition: HOME WITH HOME HEALTH SERVICES
[2025-01-27 11:46] LABS: Glucose,Whole Blood 208 mg/dL (70-110)
--- NOTE | 2025-01-27 13:02 | P.PN ---
Subjective Patient was seen at bedside, hemodialysis yesterday removed 310. Next session scheduled is today instead of Thu, patient is approved for outpatient dialysis, to do next session Thursday. Patient has no complaints today, reports eating, urinates. He denies any chest pain, SOB or abdominal pain. Objective - Vital Signs Vital signs: Vital Signs Temp 97.9 F 01/27/25 07:16 Pulse 68 01/27/25 08:07 Resp 18 01/27/25 08:07 BP 147/91 01/27/25 07:16 Pulse Ox 97 01/27/25 07:16 FiO2 Intake & Output 01/26/25 01/27/25 01/27/25 18:59 06:59 18:59 Intake Total 400 Output Total 6600 Balance -6200 Intake: Hemodialysis 400 Output: Hemodialysis 3500 Hemodialysis Net Amount 3100 Other: Voiding Method Toilet Toilet # Voids 3 3 - Exam Patient's vitals were reviewed; General: appears well, no acute complaints Lungs: clear to auscultation bilaterally, no wheezing, no accessory muscle use Heart: S1 and S2 normal, no murmurs. MSK: dressing on Bilateral LE. - Labs CBC & Chem 7: 01/20/25 03:59 01/20/25 03:59 Labs: Abnormal Lab Results - Last 24 Hours (Table) 01/26/25 01/26/25 01/27/25 Range/Units 12:09 21:09 06:18 POC Glucose (mg/dL) 187 H 241 H 124 H (70-110) mg/dL Assessment and Plan Assessment: Patient is seen at bedside, Hemodialysis was done yesterday, removed 310. denies any chest pain, SOB, abdominal pain. Plan: 1. End stage renal Disease: on Hemodialysis, yesterday's session removed 3099, to do another session today instead of tomorrow. 2. Anemia of Chronic disease: patient last Hgb is 10.0 (01/20), Iron is 33, sat% 13.64, transferrin 173.0, ferritin 660.0 (01/23), received 3 doses IV iron ferric gluconate (Ferrlecit) 125. 3. Bilateral Lower extremities cellulites: On Vancomycin, dressing is changed every other day. Next Hemodialysis is today Continue Bumex 2 mg/BID. Approved for outpatient dialysis, next session Thursday. Darrel Benton MD PGY1, Internal Medicine. Nephrology service. I have seen and examined the patient with resident and agree with A&P as written. HD today - next treatment Thursday outpatient (TTS schedule).
--- NOTE | 2025-01-27 15:32 | P.PN ---
Subjective Progress Note Date: 01/27/25 Principal diagnosis: Reason for follow-up with bilateral lower extremity ulcer and cellulitis Patient is a 55-year-old male with a past medical history significant for Asthma, Heart Failure, COPD, Diabetes Mellitus, Deep Vein Thrombosis (DVT), Myocardial Infarction ([place]), Sleep Apnea/CPAP/BIPAP, Vascular Disorder, end-stage renal disease on hemodialysis on the right chest wall permacatheter also history of bilateral lower extremity ulcers and cellulitis presented to hospital with worsening swelling redness and drainage specially to the right lower extremity has been diagnosed with cellulitis prompting this consultation. On today's evaluation that is 01/27/2025, the patient continues to be afebrile, the patient is on room air and breathing comfortably, the Pt denies having any chest pain or cough, the patient denies having any abdominal pain no vomiting or any diarrhea or pain to the lower extremity. No new lab has been obtained today blood culture has been negative Objective - Vital Signs Vital signs: Vital Signs Temp 97.9 F 01/27/25 07:16 Pulse 68 01/27/25 08:07 Resp 18 01/27/25 08:07 BP 147/91 01/27/25 07:16 Pulse Ox 97 01/27/25 07:16 FiO2 Intake & Output 01/26/25 01/27/25 01/27/25 18:59 06:59 18:59 Intake Total 400 Output Total 6600 Balance -6200 Intake: Hemodialysis 400 Output: Hemodialysis 3500 Hemodialysis Net Amount 3100 Other: Voiding Method Toilet Toilet # Voids 3 3 - Exam GENERAL DESCRIPTION: Middle-age male lying in bed in no distress RESPIRATORY SYSTEM: Unlabored breathing , decreased breath sounds at bases HEART: S1 S2 regular rate and rhythm , ABDOMEN: Soft , no tenderness EXTREMITIES: Leg wounds are currently dressed - Labs CBC & Chem 7: 01/20/25 03:59 01/20/25 03:59 Labs: Abnormal Lab Results - Last 24 Hours (Table) 01/26/25 01/27/25 01/27/25 Range/Units 21:09 06:18 11:43 POC Glucose (mg/dL) 241 H 124 H 208 H (70-110) mg/dL Assessment and Plan (1) Bilateral lower leg cellulitis Current Visit: Yes Status: Acute Code(s): L03.116 - CELLULITIS OF LEFT LOWER LIMB; L03.115 - CELLULITIS OF RIGHT LOWER LIMB SNOMED Code(s): 049459470 (2) Bilateral leg ulcer Current Visit: No Status: Acute Code(s): L97.919 - NON-PRS CHRONIC ULC UNSP PRT OF R LOW LEG W UNSP SEVERITY; L97.929 - NON-PRS CHRONIC ULC UNSP PRT OF L LOW LEG W UNSP SEVERITY SNOMED Code(s): 25995923 (3) Sepsis Current Visit: Yes Status: Acute Code(s): A41.9 - SEPSIS, UNSPECIFIED ORGANISM SNOMED Code(s): 10502161 Plan: 1patient presented to hospital with sepsis in this patient who did have fever tachycardia elevated white meeting criteria for SIRS/Sepsis source likely lower extremity cellulitis in this patient who did have a bilateral lower extremity venous stasis ulcer with cellulitis more marked to the right lower extremity 2tetracycline allergy 3patient did have resolution of his fever and the patient white count normalized, also has shown clinical improvement as well as bilateral lower extremity ulcer and cellulitis, 3patient advised to continue Aquacel dressing and Bobby wrap to the leg and vancomycin to be discontinued on discharge Dictation was produced using [employer] dictation software. please excuse any grammatical, word or spelling errors. Time with Patient: Less than 30
[2025-01-27 16:39] LABS: Glucose,Whole Blood 167 mg/dL (70-110)
[2025-01-27 18:12] VITALS: BP 135/83; PULSE 70; RESP 18; TEMP 98.1
== END 2025-01-27 19:04 | disposition home health service (06) | DRG 871 ==
LOC: EC 15:35 → 4SSUR 18:32
PROVIDERS: ADMIT Internal Medicine; ATTEND Internal Medicine
PROC: 5A1D70Z Performance of Urinary Filtration, Intermittent, Less than 6 Hours Per Day (ICD-10-PCS; principal; 2025-01-17)
DX: A41.9 Sepsis, unspecified organism (principal); N18.6 End stage renal disease; I13.2 Hypertensive heart and chronic kidney disease with heart failure and with stage 5 chronic kidney disease, or end stage renal disease; I50.22 Chronic systolic (congestive) heart failure; L97.919 Non-pressure chronic ulcer of unspecified part of right lower leg with unspecified severity; L97.929 Non-pressure chronic ulcer of unspecified part of left lower leg with unspecified severity; D63.1 Anemia in chronic kidney disease; Z99.2 Dependence on renal dialysis; Z68.43 Body mass index [BMI] 50.0-59.9, adult; E11.22 Type 2 diabetes mellitus with diabetic chronic kidney disease; L03.115 Cellulitis of right lower limb; E87.1 Hypo-osmolality and hyponatremia; L03.116 Cellulitis of left lower limb; E11.51 Type 2 diabetes mellitus with diabetic peripheral angiopathy without gangrene; Z79.4 Long term (current) use of insulin; E66.9 Obesity, unspecified; Z91.158 Patient's noncompliance with renal dialysis for other reason; I25.10 Atherosclerotic heart disease of native coronary artery without angina pectoris; N40.0 Benign prostatic hyperplasia without lower urinary tract symptoms; I89.0 Lymphedema, not elsewhere classified; I25.2 Old myocardial infarction; Z79.82 Long term (current) use of aspirin; Z79.899 Other long term (current) drug therapy; Z79.84 Long term (current) use of oral hypoglycemic drugs; Z82.49 Family history of ischemic heart disease and other diseases of the circulatory system; Z83.3 Family history of diabetes mellitus; Z86.73 Personal history of transient ischemic attack (TIA), and cerebral infarction without residual deficits; Z86.74 Personal history of sudden cardiac arrest; Z87.891 Personal history of nicotine dependence; Z95.5 Presence of coronary angioplasty implant and graft
CPT/HCPCS: 36415; 71046; 80048; 80053; 80202; 82728; 83540; 83550; 83605; 83735; 84100; 85025; 85027; 86704; 86706; 87040; 87340; 87636; 90935; 94640; 96365; 96366; 96368; 99291

== ENCOUNTER 2025-02-10 10:57 | Emergency (ER) | payer OTHER, MEDICARE ==
[2025-02-10 11:16] VITALS: BP 129/80; PULSE 77; RESP 18; TEMP 98.1
--- NOTE | 2025-02-10 11:47 | ED ---
Recheck HPI - General Chief Complaint: Recheck/Abnormal Lab/Rx Stated Complaint: Port issue Time Seen by Provider: 02/10/25 11:20 Source: patient, RN notes reviewed Mode of arrival: ambulatory Limitations: no limitations - History of Present Illness Initial Comments: 55-year-old male with ESRD on hemodialysis Thursday, , Thursday presenting to the emergency department with concern for dialysis catheter malfunction. Patient states that he had his full course of dialysis yesterday however was instructed to report to the emergency department with concern for that the catheter was not functioning as well as it normally does. It is reported on a sheet that patient had brought with him from [facility] that the catheter was difficult to flush. Patient states he completed his full course of dialysis yesterday has no acute complaints. He is scheduled for dialysis tomorrow. - Related Data Home Medications Medication Instructions Recorded Confirmed Insulin Aspart [Insulin Aspart 10 unit SQ AC-TID 01/16/25 01/16/25 Flexpen] Insulin Glargine (Lantus) [Lantus 40 unit SQ BID 01/16/25 01/16/25 Vial] Previous Rx's Medication Instructions Recorded Atorvastatin [Lipitor] 80 mg PO HS #30 tab 01/27/25 Bumetanide [BUMEX] 2 mg PO AC-BID #60 tab 01/27/25 Ferrous Sulfate [Feosol] 325 mg PO DAILY #30 tab 01/27/25 Losartan [Cozaar] 50 mg PO DAILY #30 tab 01/27/25 Pantoprazole [Protonix] 40 mg PO DAILY@0730 #30 tab 01/27/25 Tamsulosin [Flomax] 0.4 mg PO DAILY #30 cap 01/27/25 carvediloL [Coreg] 6.25 mg PO BID-W/MEALS #60 tab 01/27/25 Allergies Allergy/AdvReac Type Severity Reaction Status Date / Time tetracycline Allergy Rash/Hives Verified 02/10/25 11:16 Review of Systems ROS Statement: Those systems with pertinent positive or pertinent negative responses have been documented in the HPI. ROS Other: All systems not noted in ROS Statement are negative. 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 UTI Mar 2021, cellulitis with open wounds on bilateral lower legs being treated in wound center [facility] 2020 Last Myocardial Infarction Date:: 02/20/16 History of Any Multi-Drug Resistant Organisms: MRSA Date of last positivie culture/infection: 2017 MDRO Source:: bilateral legs Past Surgical History: Heart Catheterization With Stent Additional Past Surgical History / Comment(s): circumcision Additional Past Anesthesia/Blood Transfusion Reaction / Comment(s): Pt has never had anesthesia Date of Last Stent Placement:: 02/20/16 Past Psychological History: No Psychological Hx Reported Smoking Status: Former smoker Past Alcohol Use History: None Reported Past Drug Use History: None Reported - Past Family History Father Family Medical History: Coronary Artery Disease (CAD), Diabetes Mellitus, Eye Disorder Additional Family Medical History / Comment(s): Bradycardia, blind. Father is in his early 70's. Mother Family Medical History: Coronary Artery Disease (CAD), Diabetes Mellitus Additional Family Medical History / Comment(s): Benign brain tumor. Mother is in her early 70's General Exam Limitations: no limitations General appearance: alert, in no apparent distress ENT exam: Present: normal exam, mucous membranes moist Neck exam: Present: normal inspection. Absent: tenderness, meningismus, lymphadenopathy Respiratory exam: Present: normal lung sounds bilaterally. Absent: respiratory distress, wheezes, rales, rhonchi, stridor Cardiovascular Exam: Present: regular rate, normal rhythm, normal heart sounds. Absent: systolic murmur, diastolic murmur, rubs, gallop, clicks GI/Abdominal exam: Present: soft, normal bowel sounds. Absent: distended, tenderness, guarding, rebound, rigid Extremities exam: Present: normal inspection, full ROM, normal capillary refill. Absent: tenderness, pedal edema, joint swelling, calf tenderness Back exam: Present: normal inspection Skin exam: Present: warm, dry, intact, normal color. Absent: rash Course Vital Signs 02/10/25 11:11 Temperature 98.1 F Pulse Rate 77 Respiratory 18 Rate Blood Pressure 129/80 O2 Sat by Pulse 97 Oximetry Medical Decision Making - Medical Decision Making Was pt. sent in by a medical professional or institution (, LISA, [employer], urgent care, hospital, or shelter...) When possible be specific @ -No Did you speak to anyone other than the patient for history (EMS, parent, family, police, friend...)? What history was obtained from this source @ -No Did you review nursing and triage notes (agree or disagree)? Why? @ -I reviewed and agree with nursing and triage notes Were old charts reviewed (outside hosp., previous admission, EMS record, old EKG, old radiological studies, urgent care reports/EKG's, shelter records)? Report findings @ -No old charts were reviewed Differential Diagnosis (chest pain, altered mental status, abdominal pain women, abdominal pain men, vaginal bleeding, weakness, fever, dyspnea, syncope, headache, dizziness, GI bleed, back pain, seizure, CVA, palpatations, mental health, musculoskeletal)? @ -Encounter for dialysis port malfunction EKG interpreted by me (3pts min.). @ -None X-rays interpreted by me (1pt min.). @ -None done CT interpreted by me (1pt min.). @ -None done U/S interpreted by me (1pt. min.). @ -None done What testing was considered but not performed or refused? (CT, X-rays, U/S, labs)? Why? @ -None What meds were considered but not given or refused? Why? @ -None Did you discuss the management of the patient with other professionals (professionals i.e. LISA Cannon, [employer], lab, RT, psych nurse, social media community manager, director women, teacher, investigation officer, clinical case manager)? Give summary @ -No Was smoking cessation discussed for >3mins.? @ -No Was critical care preformed (if so, how long)? @ -No Were there social determinants of health that impacted care today? How? (Homelessness, low income, unemployed, alcoholism, drug addiction, transportation, low edu. Level, literacy, decrease access to med. care, detention, rehab)? @ -No Was there de-escalation of care discussed even if they declined (Discuss DNR or withdrawal of care, Hospice)? DNR status @ -No What co-morbidities impacted this encounter? (DM, HTN, Smoking, COPD, CAD, Cancer, CVA, ARF, Chemo, Hep., AIDS, mental health diagnosis, sleep apnea, morbid obesity)? @ -None Was patient admitted / discharged? Hospital course, mention meds given and route, prescriptions, significant lab abnormalities, going to OR and other pertinent info. @ -Discharge. 55-year-old male presenting with concern for possible eval this is report malfunction. Cathflo is inserted into either catheter of the port on the chest and To replace. Patient is instructed to follow-up with vascular specialist and contact them today to schedule appointment in the next 1 to 2 days in addition to going to dialysis tomorrow morning as scheduled. Return parameters discussed. Case discussed with my attending Dr. Taylor. Undiagnosed new problem with uncertain prognosis? @ -No Drug Therapy requiring intensive monitoring for toxicity (Heparin, Nitro, Insulin, Cardizem)? @ -No Were any procedures done? @ -No Diagnosis/symptom? @ -Encounter for dialysis port malfunction Acute, or Chronic, or Acute on Chronic? @ -Acute Uncomplicated (without systemic symptoms) or Complicated (systemic symptoms)? @ -Uncomplicated Side effects of treatment? @ -No Exacerbation, Progression, or Severe Exacerbation? @ -No Poses a threat to life or bodily function? How? (Chest pain, USA, AL, pneumonia, PE, COPD, DKA, ARF, appy, cholecystitis, CVA, Diverticulitis, Homicidal, Suicidal, threat to staff... and all critical care pts) @ -No Disposition Clinical Impression: Encounter for care related to vascular access port Disposition: HOME SELF-CARE Condition: Stable Instructions (If sedation given, give patient instructions): Hemodialysis (DC) Additional Instructions: Please return to the Emergency Department if symptoms worsen or any other concerns. Please follow-up with your vascular surgeon who completed the initial port placement. Continue to report to your dialysis sessions as scheduled. Is patient prescribed a controlled substance at d/c from ED?: No Referrals: Guy Mi DO [Primary Care Provider] - 1-2 days Time of Disposition: 11:47
[2025-02-10] MEDS: ALTEPLASE 2 MG VIAL (CATHFLO) IV STA ×2 (13:41)
== END 2025-02-10 13:42 | disposition home or self-care (01) ==
LOC: EC 10:57
DX: Z45.2 Encounter for adjustment and management of vascular access device (principal); N18.6 End stage renal disease; Z99.2 Dependence on renal dialysis; Z87.891 Personal history of nicotine dependence
CPT/HCPCS: 99282; 36593; J2997